=== PATIENT | female | born 1990 | race Caucasian/White ===

== ENCOUNTER 2022-04-09 07:13 | Outpatient (CLI) | payer OTHER, SELFPAY ==
--- NOTE | 2022-04-09 07:15 | CRLHL7_ITS ---
For Patients: As a result of the Century Cures Act, medical imaging exams and procedure reports are released immediately into your electronic medical record. You may view this report before your referring provider. If you have questions, please contact your health care provider. INDICATION: Follow-up growth. Obesity affecting . TECHNIQUE: Ultrasound OB pelvis transabdominal. Real-time rayo-scale imaging of the fetus was performed. COMPARISON: Ultrasound 11/19/2021. FINDINGS: Sonographic imaging demonstrates a single living intrauterine gestation. Fetus demonstrates a regular cardiac rate of 150 beats per minute. Fetus has a cephalic orientation. Amniotic fluid volume appears normal. Single deepest pocket measures 8.4 cm. Amniotic fluid index is 20.5 cm. Placenta is anterior. The following biometric measurements were obtained: Biparietal diameter: 7.2 cm, 28 week 6 day, 42nd percentile. Head circumference: 27.3 cm, 29 week 5 day, 49th percentile. Abdominal circumference: 25.1 cm, 29 week 2 day, 60th percentile. Femur length: 5.7 cm, 29 week 6 day, 67th percentile. FL/AC ratio 22.68%. HC/AC ratio 1.09 The composite ultrasound gestational age is calculated at 29 weeks 3 days with an estimated sonographic due date of 06/22/2022. The weight is estimated at 1397 grams, the 66th percentile. IMPRESSION.: 1. Viable intrauterine . No abnormalities seen. 2. Upper limits of normal amniotic fluid volume. Single deepest pocket is slightly elevated measuring 8.4 cm. Amniotic fluid index is normal measuring 20.5 cm. Dictated by Calixto Elder MD @ 04/09/2022 8:32:58 AM (Electronically Signed)
--- OUTSIDE RECORDS SUMMARY | 2022-04-09 07:15 | XMS_ITS | Clinical Summary ---
:1990 Author Organization [email or web address] [employer] [facility] [place] [address] Care Team Providers Name Role Phone Evelyn Arnett NP Primary Care Provider [phone] Allergies Active Allergy Reactions Severity Noted Date Comments Doxycycline Nausea And Vomiting, Dizziness 06/12/2008 Medications Medication Sig Dispensed Refills Start Date End Date Status SUMAtriptan (IMITREX) TAKE 1 TABLET BY 10 Tablet 3 10/16/2021 Active 50 mg MOUTH EVERY 2 tabletIndications: HOURS NEEDED Menstrual migraine FOR MIGRAINE. without status TAKE AT MINIMUM migrainosus, not 2 HOURS APART. intractable MAX 200 MG PER 24 HOURS. ondansetron (ZOFRAN 0 11/25/2021 Active ODT) 4 mg disintegrating tablet busPIRone (BUSPAR) 30 Take 1 Tablet 180 Tablet 3 01/02/2022 Active mg tabletIndications: (30 mg) by mouth Generalized anxiety 2 times daily. disorder escitalopram oxalate Take 1 Tablet 90 Tablet 3 01/02/2022 Active (LEXAPRO) 20 mg (20 mg) by mouth tabletIndications: at bedtime. Generalized anxiety disorder, Depression, recurrent (HC) Active Problems Problem Noted Date Acne 12/06/2013 Seasonal allergies 04/04/2013 Migraine 01/05/2013 Estimated Date of Delivery Comments Yes 06/27/2022 Resolved Problems Problem Noted Date Resolved Date Bipolar affective disorder 12/02/2013 12/27/2020 Immunizations Name Administration Dates Next Due COVID-19 vaccine (Voxel 07/26/2021, 12/08/2020, 30mcg/0.3mL) PF, MDV Td (Age >=7 Years) 10/08/2008, 01/30/1998 Tdap 07/09/2020, 04/10/2016 Family History Medical History Relation Name Comments Hypertension Father Cancer-breast Maternal Grandmother Parkinsonism Maternal Grandmother Thyroid Disease Mother Cancer-breast Paternal Grandmother Parkinsonism Paternal Grandmother Anesthesia Problem No Family History Blood Disease No Family History Relation Name Status Comments Father Alive Maternal Grandfather Alive Maternal Grandmother Mother Alive Paternal Grandfather Alive Paternal Grandmother Alive Social History Tobacco Use Types Packs/Day Years Used Date Former Smoker Cigarettes 0.5 13 Quit: 06/2019 Smokeless Tobacco: Never Used Tobacco Cessation: Ready to Quit: No; Co unseling Given: Yes Alcohol Use Standard Drinks/Week Comments No 0 (1 standard drink = 0.6 oz pure alcoho l) Estimated Date of Delivery Comments Yes 06/27/2022 Sex Assigned at Date Recorded Not on file Obstetrics History Para Term AB IAB SAB Ectopic Multiple Living Live Births 2 1 1 1 1 Date Outcome GA Total Labor/2nd/3rd Weight Sex Delivery Anes PTL Arielle A 1 A5 Name Clin Labor 09/28 Term 40w 3.6 kg F CS-LTranv Epidu N Joana 5 8 E vely 1d (7 lb ral, ng n Mar ie 15 oz) Spina Ti lle l luis e DO Complications: None Delivery Location: [facility] Current Last Filed Vital Signs Vital Sign Reading Time Taken Comments Blood Pressure 120/76 01/02/2022 1:19 PM CDT Pulse 72 01/02/2022 1:19 PM CDT Temperature 37 ??C (98.6 ??F) 09/16/2021 3:22 PM ARTISTIC DIRECTOR Respiratory Rate 15 01/02/2022 1:19 PM CDT Oxygen Saturation 97% 09/16/2021 3:22 PM ARTISTIC DIRECTOR Inhaled Oxygen Concentration - - Weight 103.4 kg (228 lb) 01/02/2022 1:19 PM CDT Height 160 cm (5' 3) 01/02/2022 1:19 PM CDT Body Mass Index 40.39 01/02/2022 1:19 PM CDT Plan of Treatment Health Maintenance Due Date Last Done Comments Hepatitis C screening for age 0601/15/2006 18-79 Influenza for age 9-49 04/10/2022 BMI (ht and wt on same day) for 01/02/2023 01/02/2022, 06/11, age 18+ 06/07/2021, Additional history exists Depression screening for age 12+ 01/02/2023 01/02/2022, , 07/05/2021, Additional history exists Pap test for age 21-65 12/25/2024 12/25/2021, 12/25/2021, 11/07/2020 (Completed outside of [facility]), Additional history exists Tetanus booster 07/09/2030 07/09/2020, 04/10/2016, 10/08/2008, Additional history exists Tdap Completed 07/09/2020, 04/10/2016 COVID-19 vaccine series Completed 07/26/2021, 12/08/2020, 11/10/2020 Results Not on filefrom Last 3 Months Additional Health Concerns Infection Onset Date Last Indicated Rule-Out C.diff 12/12/2020 12/12/2020 Insurance Payer Benefit Plan / Subscriber ID Effective Dates Phone Addre ss Type Group [facility] [id number] 2020-[address] [id number] [place] [address] Advance Directives Latest Code Status on File Code Status Date Activated Date Inactivated Comments Full Code 12/26/2011 7:11 AM 12/26/2011 2:47 PM Care Teams Ocular Care Technician Relationship Specialty Start Date End Date Evelyn Arnett NP PCP - General Nurse Practitioner 12/27/20 [id number] [place] [address]
--- OUTSIDE RECORDS SUMMARY | 2022-04-09 07:15 | XMS_ITS | Clinical Summary ---
:1990 Author Organization [facility] Address [address] [place] [address] Care Team Providers Name Role Phone Blank Lemos MD Primary Care Provider Blank Lemos MD Unavailable Anabell Shannon Unavailable Unavailable Sharita Frias MD Unavailable Allergies Active Allergy Reactions Severity Noted Date Comments Doxycycline Other (See Comments), Nausea and Vomiting 06/12/2008 Medications Medication Sig Dispensed Refills Start Date End Date Status Vit-Fe Take 1 tablet by 0 Active Fumarate-FA ( mouth daily MULTIVITAMIN W/IRON) 27-0.8 MG tablet escitalopram (LEXAPRO) Take 1 tablet 90 tablet 1 08/27/2020 Active 20 MG tabletIndications: (20 mg) by mouth Generalized anxiety daily disorder, Bipolar I disorder (H) norethindrone (MICRONOR) Take 1 tablet 84 tablet 4 11/06/2020 Active 0.35 MG (0.35 mg) by tabletIndications: mouth daily Routine follow-up Active Problems Problem Noted Date Morbid obesity 10/18/2020 Indication for care in labor or delivery 09/28/2020 Uterine size-date discrepancy in third trimester 09/24 Overview: Growth ultrasound 52nd percentile at 36w Excessive weight gain affecting 09/24/2020 Overview: 35 lbs at 37 weeks High-risk , third trimester 08/07/2020 Overview: Clinic/Hospital: [facility] Partner Name: Micah Ultrasound predicts sex: female Childrens names/ages: n/a Previous labor experiences: n/a Waterbirth (interest, declined, ineligib le): n/a Level of education/occupation: currently unemployed d/t COVID Pertinent History: Bipolar, obesity clas s II PP contraception: minipill Hx PPD/Depression/Anxiety: Bipolar with anxiety & depression Peds provider: Probably [facility] Plans for labor pain management: Open to options, no firm plan Plans for post recovery/time off: currently not working, will plan to look for work in about 3 months. Micah will get 5 weeks. Mom and sister in town. 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 Plan colp 10/07/18 [place]- No lesions seen, no Bx raisa en. Plan 1 yr co-test 02/24/20 ASCUS pap, + HR HPV (not 16 or 1 8). Pt about 10 weeks . Plan colp without biopsies due by 05/26/20. 03/05/20 CCT tracking. 03/06/20 pt notified 04/09/20 colp visually MIL I-II. Plan: pa p . EDC 09/27/20 11/06/20 NIL, +HR HPV, not 16/18. Plan Co lp bef 02/06/21 11/13/20 Left msg and MyChart result lette r- read by pt 01/08/21 Reminder MyChart 02/05/21 [place] not done. Tracking updated for 6 mo colp/pap due 05/09/21. 04/25/21 Reminder MyChart- read by pt 05/27/21 Lost to follow-up for pap track ing Migraine without aura and without status migrainosus, not intractable 06/16/2016 BMI 38.0-38.9,adult 04/10/2016 Insomnia 02/20/2015 Generalized anxiety disorder 11/28/2014 Acne 12/06/2013 Bipolar affective disorder 12/02/2013 Seasonal allergies 04/04/2013 Estimated Date of Delivery Comments Yes 06/27/2022 Based on last menstr ual period of 09/20/2021 Resolved Problems Problem Noted Date Resolved Date Tobacco abuse 09/22/2018 08/07/2020 Encounters Date Type Specialty Care Team Description 03/05/2022 Office Visit Maternal and Aimee Aguilar abnormal ity Medicine MD Sean affecting management of mother, antepar mack, single or unspecified fet us (Primary Dx) 03/05/2022 Hospital Encounter Radiology. Aimee Aguilar ab normality MD Sean affecting management of mother, antepar mack, single or unspecified fet us 03/05/2022 Travel 02/05/2022 Office Visit Maternal and Luis abnormali ty Medicine Carmencita Carrington APRN affecting DOOR PERSON management of Aimee Aguilar mother, antepa rtum, MD Sean single or unspecified fet us (Primary Dx) 02/05/2022 Hospital Encounter Radiology. Luis, related Carmencita Carrington APRN condition, DOOR PERSON antepartum Aimee Aguialr MD 02/05/2022 Travel 01/29/2022 PRE VISIT Maternal and [place], Ultrasound (L2- BMI Medicine [place], RN 40) 01/26/2022 Transcribe Orders Maternal and Luis related Medicine Carmencita Carrington APRN condition , DOOR PERSON antepartum (Kimberli chema Dx) 01/24/2022 Medical Correspondence Scan, MATER NAL Non-Provider [facility] PROVIDER SERVIC E REQUEST- OUTPAT [facility] from Last 3 Months Immunizations Name Administration Dates Next Due TD (ADULT, 7+) 10/08/2008, 01/30/1998 TDAP Vaccine (Adacel) 04/10/2016 Tdap (Adacel,Boostrix) 07/09/2020 Family History Medical History Relation Comments Breast Cancer Maternal Grandfather Breast Cancer Maternal Grandmother Thyroid Disease Mother Diabetes No family hx of Relation Status Comments Brother Alive Father Alive Maternal Grandfather Maternal Grandmother Mother Alive Social History Tobacco Use Types Packs/Day Years Used Date Former Smoker Cigarettes 0.25 8 Quit: 06/24/20 19 Smokeless Tobacco: Never Used Tobacco Cessation: Counseling Given: No Alcohol Use Standard Drinks/Week Comments No 0 (1 standard drink = 0.6 oz pure alcoho l) Financial Resource Strain Answer Date Recorded How hard is it for you to pay for the very basics like Not h janett at all 02/07/2020 food, housing, medical care, and heating? Food Insecurity Answer Date Recorded Within the past 12 months, you worried that your food would Never true 02/07/2020 run out before you got money to buy more. Within the past 12 months, the food you bought just didn't N ever true 02/07/2020 last and you didn't have money to get more. Transportation Needs Answer Date Recorded In the past 12 months, has lack of transportation kept you f rom No 02/07/2020 medical appointments or from getting medications? In the past 12 months, has lack of transportation kept you f rom No 02/07/2020 meetings, work, or getting things needed for daily living? Education Answer Date Recorded What is the highest level of school you have High school gra dee 02/07/2020 completed or the highest degree you have received? Estimated Date of Delivery Comments Yes 06/27/2022 Based on last menstr ual period of 09/20/2021 Sex Assigned at Date Recorded Not on file Last Filed Vital Signs Vital Sign Reading Time Taken Comments Blood Pressure 100/60 11/06/2020 2:30 PM CDT Pulse 76 09/30/2020 9:40 AM [employer] Temperature 36.8 ??C (98.3 ??F) 10/18/2020 2:16 PM [employer] Respiratory Rate 18 09/30/2020 9:40 AM [employer] Oxygen Saturation 98% 09/29/2020 9:00 AM [employer] Inhaled Oxygen Concentration - - Weight 104.8 kg (231 lb) 11/06/2020 2:30 PM CDT Height 160 cm (5' 3) 11/06/2020 2:30 PM CDT Body Mass Index 40.92 11/06/2020 2:30 PM CDT Plan of Treatment Health Maintenance Due Date Last Done Comments ADVANCE CARE PLANNING 1990 HEPATITIS C SCREENING 01/15/2006 ANNUAL REVIEW OF HM ORDERS 01/04/2021 01/05/2020 COLPOSCOPY 02/06/2021 04/09/2020 GABRIEL ASSESSMENT 08/27/2021 08/27/2020, 02/02/2020, 12/08/2019, Additional history exists PREVENTIVE CARE VISIT 11/06/2021 11/06/2020, 09/22/2018, 04/10/2016, Additional history exists MATERNAL SCREENING 01/03/2022 OBGCT (OB) 03/07/2022 07/09/2020 REPEAT ANTIBODY SCREEN (OB) 04/04/2022 09/28/2020, 02/20/20 20 INFLUENZA VACCINE (#1) 2022 09/22/2018 (Declined) GROUP B STREP SCREENING 05/30/2022 09/03/2020 HPV TEST 12/25/2022 11/06/2020, 02/24/2020, 09/22/2018 PAP 12/25/2022 12/25/2021, 11/06/2020, 04/09/2020, Additional history exists DTAP/TDAP/TD IMMUNIZATION 07/09/2030 07/09/2020, 04/10/2016 , (5 - Td or Tdap) 10/08/2008, Additional history exists MIGRAINE ACTION PLAN Completed 09/22/2018 HIV SCREENING Completed 02/20/2020, 09/22/2018 (Declined) COVID-19 Vaccine Completed 07/26/2021, 12/08/2020, 11/10/2020 HEPATITIS B IMMUNIZATION Aged Out No long er eligible based on patient 's age to complete this topic IPV IMMUNIZATION Aged Out No longer eligi ble based on patient 's age to complete this topic MENINGITIS IMMUNIZATION Aged Out No longe r eligible based on patient 's age to complete this topic Pneumococcal Vaccine: Aged Out No longer eligible Pediatrics (0 to 5 Years) based on patient's age and At-Risk Patients (6 to to co mplete this topic 64 Years) Procedures Procedure Name Priority Date/Time Associated Comments Diagnosis MF US COMPREHENSIVE Routine 03/05/2022 9:49 AM abnormal ity Results for this SINGLE F/U CDT affecting procedure are i n management of the results mother, antepartum, section. single or unspecified fetus [facility] US COMPREHENSIVE Routine 02/05/2022 11:12 relate d Results for this SINGLE AM CDT condition, procedure are i n antepartum the results section. from Last 3 Months Results [facility] US Comprehensive Single F/U (03/05/2022 9:49 AM CDT) Anatomical Region Laterality Modality Ultrasound Specimen (Source) Anatomical Collection Method Collection Time Re ceived Time Location / / Volume Laterality 03/05/2022 9:05 AM CDT Impressions 03/05/2022 10:06 AM CDT IMPRESSION 1. Mendoza intrauterine at 2 3 weeks 5 days gestational age here for completion of anatomy. 2. The remaining anatomic survey w as completed, no anomalies commonly detected by ultrasound were identified within the limits of ultrasound. 3. Growth parameters and estimated weight were consistent with established dates. 4. The amniotic fluid volume appeared no rmal. Narrative 03/05/2022 10:06 AM CDT Comp Follow Up Pat. Name: RENA BYRD Study Date: 03/05/2022 9:05am Pat. NO: [id number] Referring ??: COCO ORTIZ Site: [facility] Manager Urgent Care: Hood Mcwilliams RDMS : 1990 Age: 32 INDICATION BMI 40 METHOD Transabdominal ultrasound examination. V iew: Sufficient Mendoza . Number of fetuses: 1 DATING ? Date ?Details ?Gest. age ?FATUMA LMP ?09/20/2021 ? 23 w + 5 d ? 06/27/2022 Prior assessment ? 4/ 07/2022 ? GA: 8 w + 3 d ?23 w + 4 d ? 06/28/2022 U/S ? 03/05/2022 ? based upon AC, BPD, Femur, HC ? 23 w + 4 d ? 06/28/2022 Assigned dating ?Dating performed on 02/05/2022, based on the LMP ?23 w + 5 d ? 06/27/2022 GENERAL EVALUATION Cardiac activity present. FHR 122 bpm. movements present. Presentation funmi breech. Placenta Anterior, No Previa, > 2 cm fro m internal os. Umbilical cord 3 vessel cord. Amniotic fluid Amount of AF: normal. MVP 5.8 cm. BIOMETRY Main Biometry: BPD ?56.7 ?mm ? 23w 2d ?Hadlock OFD ?80.2 ?mm ? 24w 2d ?Nicolaides HC ?220.6 ?mm ?24w 1d ?Hadlock Cerebellum tr ?27.1 ? mm ?24w 4d ?Nicolaides AC ?183.2 ?mm ?23w 1d ?24% ?Hadlock Femur ?42.2 ? mm ?23w 5d ?Hadlock Weight Calculation: EFW ? 598 ? g ? 31% ?Hadlock EFW (lb,oz) ? 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 4.9 ? mm CM ?4.8 ? mm Nasal bone ? 8.8 ? mm ANATOMY The following structures appear normal: Head / Neck ? Cranium. Head size. Head shape. Lateral ventricles. Midline falx. Cavum septi pellucidi. Cerebellum. Cisterna magna. Thalami. Face ? Lips. Profile. Nose. Maxilla. Mandible. Heart / Thorax ?4-chamber view. LVOT view. Abdomen ? Stomach. Kidneys. Bladder. Spine ?Cervical spine. Thoracic spine. Lumbar spine. The following structures were documented previously: Heart / Thorax ?RVOT view. 4-dsctrd-yqagato view. ? Diaphragm. Spine ?Sacral spine. Gender: female. MATERNAL STRUCTURES Cervix ?Suboptimal Right Ovary ?Not examined Left Ovary ?Not examined RECOMMENDATION Thank-you for referring your patient for an ultrasound to reassess anatomy that was previously suboptimally seen on comprehensive survey. I discussed the findings on today's ultr asound with the patient. I reviewed the limitations of ultrasound. Further ultrasound studies are anticipat ed to be done in [place]. We recommend serial growth every 4-6 weeks and weekly BPPs should be considered at 34 weeks for pre- BMI 40 Return to primary provider for continued care. If you have questions regarding today's evaluation or if we can be of further service, please contact the [facility]. Procedure Note Aimee Aguilar MD - 03/05/2022Form atting of this note might be different from the original. Comp Follow Up Pat. Name:Noemi BYRD Date: 9:05am Pat. NO: [id number] MD:CARMENCITA ORTIZ [facility] Fleming :1990Age:32 INDICATION BMI 40 METHOD Transabdominal ultrasound examination. V iew: Sufficient Mendoza . Number of fetuses: 1 DATING Date Details Gest. age FATUMA LMP 09/20/2021 23 w + 5 d 06/27/2022 Prior assessment 11/19/2021 GA: 8 w + 3 d 23 w + 4 d 06/28/2022 U/S 03/05/2022 based upon AC, BPD, Femur, HC 23 w + 4 d 06/28/2022 Assigned dating Dating performed on 01/09, based on the LMP 23 w + 5 d 06/27/2022 GENERAL EVALUATION Cardiac activity present. FHR 122 bpm. movements present. Presentation funmi breech. Placenta Anterior, No Previa, > 2 cm fro m internal os. Umbilical cord 3 vessel cord. Amniotic fluid Amount of AF: normal. MVP 5.8 cm. BIOMETRY Main Biometry: BPD 56.7 mm 23w 2d Hadlock OFD 80.2 mm 24w 2d Nicolaides HC 220.6 mm 24w 1d Hadlock Cerebellum tr 27.1 mm 24w 4d Nicolaides AC 183.2 mm 23w 1d 24% Hadlock Femur 42.2 mm 23w 5d Hadlock Weight Calculation: EFW 598 g 31% Hadlock EFW (lb,oz) 1 lb 5 oz EFW by Hadlock ([id number]) Head / Face / Neck Biometry: Career And Technology Education Teacher 4.9 mm CM 4.8 mm Nasal bone 8.8 mm ANATOMY The following structures appear normal: Head / Neck Cranium. Head size. Head sha pe. Lateral ventricles. Midline falx. Cavum septi pellucidi. Cerebellum. Cisterna magna. Thalami. Face Lips. Profile. Nose. Maxilla. Chloe ble. Heart / Thorax 4-chamber view. LVOT view . Abdomen Stomach. Kidneys. Bladder. Spine Cervical spine. Thoracic spine. Julienne mbar spine. The following structures were documented previously: Heart / Thorax RVOT view. 4-cazggu-jhqef ea view. Diaphragm. Spine Sacral spine. Gender: female. MATERNAL STRUCTURES Cervix Suboptimal Right Ovary Not examined Left Ovary Not examined RECOMMENDATION Thank-you for referring your patient for an ultrasound to reassess anatomy that was previously suboptimally seen on comprehensive survey. I discussed the findings on today's ultr asound with the patient. I reviewed the limitations of ultrasound. Further ultrasound studies are anticipat ed to be done in [place]. We recommend serial growth every 4-6 weeks and weekly BPPs should be considered at 34 weeks for pre- BMI 40 Return to primary provider for continued care. If you have questions regarding today's evaluation or if we can be of further service, please contact the [facility]. IMPRESSION 1. Mendoza intrauterine at 2 3 weeks 5 days gestational age here for completion of anatomy. 2. The remaining anatomic survey w as completed, no anomalies commonly detected by ultrasound were identified within the limits of ultrasound. 3. Growth parameters and estimated weight were consistent with established dates. 4. The amniotic fluid volume appeared no rmal. Aimee Aguilar MD [facility] US ORDERABLES [facility] Comprehensive Single (02/05/2022 11:12 AM CDT) Anatomical Region Laterality Modality Ultrasound Specimen (Source) Anatomical Collection Method Collection Time Re ceived Time Location / / Volume Laterality 02/05/2022 10:22 AM CDT Impressions 02/05/2022 1:01 PM CDT IMPRESSION 1. Mendoza intrauterine at 1 9 weeks 5 days gestational age here for evaluation of anatomy. 2. No anomalies commonly detected by ultrasound or soft markers of aneuploidy were identified in the detailed anatomic survey within the limits of ultrasound, however some views were subo ptimal, as described above. 3. Growth parameters and estimated weight were consistent with established dates. 4. The amniotic fluid volume appeared no rmal. 5. On transabdominal imaging the cervix appears long and closed. Narrative 02/05/2022 1:01 PM CDT Comprehensive Pat. Name: RENA BYRD Study Date: 02/05/2022 10:22am Pat. NO: [id number] Referring ??MD: COCO ORTIZ Site: [facility] Ur[facility] Care: Dion mora RDMS : 1990 Age: 32 INDICATION BMI 40 METHOD Transabdominal ultrasound examination. V iew: Suboptimal view: limited by maternal body habitus Mendoza . Number of fetuses: 1 DATING ? Date ?Details ?Gest. age ?FATUMA LMP ?09/20/2021 ? 19 w + 5 d ? 06/27/2022 Prior assessment ? 4/ 07/2022 ? GA: 8 w + 3 d ?19 w + 4 d ? 06/28/2022 U/S ? 02/05/2022 ? based upon AC, BPD, Femur, HC ? 19 w + 6 d ? 06/26/2022 Assigned dating ?Dating performed on 02/05/2022, based on the LMP ?19 w + 5 d ? 06/27/2022 GENERAL EVALUATION Cardiac activity present. FHR 149 bpm. movements present. Presentation Variable. Placenta Anterior, No Previa, > 2 cm fro m internal os. Umbilical cord 3 vessel cord. Amniotic fluid Amount of AF: normal. MVP 5.3 cm. BIOMETRY Main Biometry: BPD ?45.5 ?mm ? 19w 5d ?Butch ALLEN ?61.4 ?mm ? 19w 6d ?Nicolaides HC ?171.8 ?mm ?19w 5d ?Hadlock Cerebellum tr ?20.9 ? mm ?19w 6d ?Nicolaides AC ?145.4 ?mm ?19w 6d ?49% ?Hadlock Femur ?32.4 ? mm ?20w 1d ?Hadlock Humerus ?31.0 ?mm ? 20w 2d ?Wendy Weight Calculation: EFW ? 322 ? g ? 58% ?Hadlock EFW (lb,oz) ? 0 lb 11 ? oz EFW by ?Hadlock ([id number]) Head / Face / Neck Biometry: Career And Technology Education Teacher ? 5.4 ? mm CM ?3.2 ? mm Nuchal fold ? 4.6 ? mm ANATOMY The following structures appear normal: Head / Neck ? Cranium. Head size. Head shape. Lateral ventricles. Choroid plexus. Midline falx. Cavum septi pellucidi. Cerebellum. Cisterna magna. ? Parenchyma. Thalami. Vermis. ? Neck. Nuchal fold. Face ? Orbits. Lens. Heart / Thorax ?RVOT view. Situs. Bicaval view. Ductal arch view. Superior vena cava. Inferior vena cava. 3-vessel view. 0-lhlxdz-jkoiktk view. Cardiac position. ? Cardiac size. Cardiac rhythm. ? Right lung. Left lung. Diaphragm. Abdomen ? Abdominal wall. Cord insertion. Stomach. Kidneys. Bladder. Liver. Bowel. Genitals. Spine ?Cervical spine. Thoracic spine. Lumbar spine. Sacral spine. Extremities / Skeleton ?Rig ht arm. Right hand. Left arm. Left hand. Right leg. Right foot. Left leg. Left foot. The following structures could not be ad equately visualized: Face ? Lips. Profile. Nose. Maxilla. Mandible. Heart / Thorax ?4-chamber view: suboptimal apical view. LVOT view. Aortic arch view. MATERNAL STRUCTURES Cervix ?Visualized ? Appearance: Appears Closed ? Cervical length 39.9 mm Right Ovary ?Not visualized Left Ovary ?Not visualized RECOMMENDATION Thank-you for referring your patient for a comprehensive ultrasound. She is referred from [place] for BMI > 40. I discussed the findings on today's ultr asound with the patient. I reviewed the limitations of ultrasound both in detecting aneuploidy and structural abnormalities. Ultrasound, when views completed, can routinely dete ct 80-90% of structural abnormalities. She had low risk cell free DNA for genetic screening this . Follow-up is scheduled here in [facility] to reassess anatomy that was suboptimally seen today. Additional surveillance is recommended in the (growth US every 4-6 weeks, weekly BPP at 34 weeks) and I assume that this will be done in [place]. Return to primary provider for continued care. If you have questions regarding today's evaluation or if we can be of further service, please contact the [facility]. Procedure Note Aimee Aguilar MD - 02/05/2022Form atting of this note might be different from the original. Comprehensive Pat. Name:Noemi BYRD Date: 10:22am Pat. NO: [id number] MD:CARMENCITA ORTIZ [facility]Dion Cruz RDMS :1990Age:32 INDICATION BMI 40 METHOD Transabdominal ultrasound examination. V iew: Suboptimal view: limited by maternal body habitus Mendoza . Number of fetuses: 1 DATING Date Details Gest. age FATUMA LMP 09/20/2021 19 w + 5 d 06/27/2022 Prior assessment 11/19/2021 GA: 8 w + 3 d 19 w + 4 d 06/28/2022 U/S 02/05/2022 based upon AC, BPD, Femur, HC 19 w + 6 d 06/26/2022 Assigned dating Dating performed on 01/09, based on the LMP 19 w + 5 d 06/27/2022 GENERAL EVALUATION Cardiac activity present. FHR 149 bpm. movements present. Presentation Variable. Placenta Anterior, No Previa, > 2 cm fro m internal os. Umbilical cord 3 vessel cord. Amniotic fluid Amount of AF: normal. MVP 5.3 cm. BIOMETRY Main Biometry: BPD 45.5 mm 19w 5d Hadlock OFD 61.4 mm 19w 6d Nicolaides HC 171.8 mm 19w 5d Hadlock Cerebellum tr 20.9 mm 19w 6d Nicolaides AC 145.4 mm 19w 6d 49% Hadlock Femur 32.4 mm 20w 1d Hadlock Humerus 31.0 mm 20w 2d Wendy Weight Calculation: EFW 322 g 58% Hadlock EFW (lb,oz) 0 lb 11 oz EFW by Hadlock ([id number]) Head / Face / Neck Biometry: Career And Technology Education Teacher 5.4 mm CM 3.2 mm Nuchal fold 4.6 mm ANATOMY The following structures appear normal: Head / Neck Cranium. Head size. Head sha pe. Lateral ventricles. Choroid plexus. Midline falx. Cavum septi pellucidi. Cerebellum. Cisterna magna. Parenchyma. Thalami. Vermis. Neck. Nuchal fold. Face Orbits. Lens. Heart / Thorax RVOT view. Situs. Bicaval view. Ductal arch view. Superior vena cava. Inferior vena cava. 3-vessel view. 2-zduvdp-txijhcc view. Cardiac position. Cardiac size. Cardiac rhythm. Right lung. Left lung. Diaphragm. Abdomen Abdominal wall. Cord insertion. Stomach. Kidneys. Bladder. Liver. Bowel. Genitals. Spine Cervical spine. Thoracic spine. Julienne mbar spine. Sacral spine. Extremities / Skeleton Right arm. Right hand. Left arm. Left hand. Right leg. Right foot. Left leg. Left foot. The following structures could not be ad equately visualized: Face Lips. Profile. Nose. Maxilla. Chloe ble. Heart / Thorax 4-chamber view: suboptima l apical view. LVOT view. Aortic arch view. MATERNAL STRUCTURES Cervix Visualized Appearance: Appears Closed Cervical length 39.9 mm Right Ovary Not visualized Left Ovary Not visualized RECOMMENDATION Thank-you for referring your patient for a comprehensive ultrasound. She is referred from [place] for BMI > 40. I discussed the findings on today's ultr asound with the patient. I reviewed the limitations of ultrasound both in detecting aneuploidy and structural abnormalities. Ultrasound, when views completed, can routinely dete ct 80-90% of structural abnormalities. She had low risk cell free DNA for genetic screening this . Follow-up is scheduled here in [facility] to reassess anatomy that was suboptimally seen today. Additional surveillance is recommended in the (growth US every 4-6 weeks, weekly BPP at 34 weeks) and I assume that this will be done in [place]. Return to primary provider for continued care. If you have questions regarding today's evaluation or if we can be of further service, please contact the [facility]. IMPRESSION 1. Mendoza intrauterine at 1 9 weeks 5 days gestational age here for evaluation of anatomy. 2. No anomalies commonly detected by ultrasound or soft markers of aneuploidy were identified in the detailed anatomic survey within the limits of ultrasound, however some views were subo ptimal, as described above. 3. Growth parameters and estimated weight were consistent with established dates. 4. The amniotic fluid volume appeared no rmal. 5. On transabdominal imaging the cervix appears long and closed. 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 IMG MFM US ORDERABLES from Last 3 Months Insurance Payer Benefit Plan / Subscriber ID Effective Phone Address T ype Group Dates WORK COMP ELYSSA WINSTON [id number] 2015-Pre [phone] ADMIN[employer]ATORS sent [phone] [place] [address] [facility] [id number] 2021-Pres [phone] [address] [employer] ent [phone] [place] [address] Rena Byrd Worker's Self 1990 [phone] Compensation 4 (Home) [address] [place] [id number] Rena Byrd Behavioral Self 1990 [phone] [id number] EM YSABEL M [address] ([address] [place] [address] Advance Directives For more information, please contact: [phone] Latest Code Status on File Code Status Date Activated Date Inactivated Comments Full Code 09/29/2020 9:48 AM 09/30/2020 5:08 PM All basic an d advanced life-sustaining interventions are performed as jc ropriate Code status determined by: Discussion with patient/ legal de cision maker Full Code 09/28/2020 7:18 PM 09/28/2020 11:17 PM All basic a nd advanced life-sustaining interventions ar e performed as appropriate Code status determined by: Discussion with patient/ legal de cision maker Care Teams Management Consulting Relationship Specialty Start Date End Date Blank Lemos, PCP - General Internal Medicine 04/22/18 MD Zarate [facility] [place] [address] Blank Lemos, Assigned PCP 04/25/18 MD Zarate [facility] [place] [address] Anabell Shannon Personal Advocate & 10/25/20 Liaison (PAL) Sharita Frias, Assigned OBGYN Provider 01/25/22 [address] [place], [place] [phone]
--- OUTSIDE RECORDS SUMMARY | 2022-04-09 07:16 | XMS_ITS | Encounter Summary ---
:1990 Author Organization [place] Address [address] [place] [address] Care Team Providers Name Role Phone Blank Lemos MD Primary Care Provider Blank Lemos MD Unavailable Kathleen Lacy CNM Unavailable Anabell Shannon Unavailable Unavailable Encounter Details Date Type Department Care Team Description 11/06/2020 Travel Social History Tobacco Use Types Packs/Day Years Used Date Former Smoker Cigarettes 0.25 8 Quit: 06/24/20 19 Smokeless Tobacco: Never Used Alcohol Use Standard Drinks/Week Comments No 0 [...] of school you have High school gra duate 02/07/2020 completed or the highest degree you have received? Sex Assigned at Date Recorded Not on file COVID-19 Exposure Response Date Recorded In the last month, have you been in contact with No / Unsure 11/06/2020 2:22 PM CDT someone who was confirmed or suspected to have Coronavirus / COVID-19? documented as of this encounter Plan of Treatment Not on filedocumented as of this encounter Visit Diagnoses Not on filedocumented in this encounter Additional Health Concerns Assessment Noted Time PHQ-9 Depression Total Score: 2 11/06/2020 3:02 PM CDT documented as of this encounter Care Teams Counter Supply Worker Relationship Specialty Start Date End Date Blank Lemos, PCP - General Internal Medicine 04/22/[address] [place] [address] K[place] [phone] Blank Lemos, Assigned PCP 04/25/[facility] K[place] [phone] Kathleen Lacy CNM Assigned OBGYN Provider 06/01/20 11/23/21 Cipriano Rivera [place], [place] [phone] Anabell Shannon Personal Advocate & 10/25/20 Liaison (PAL) documented as of this encounter
--- OUTSIDE RECORDS SUMMARY | 2022-04-09 07:16 | XMS_ITS | Encounter Summary ---
:1990 Author Organization [place] Address [address] [facility] [place] [address] Care Team Providers Name Role Phone Blank Lemos MD Primary Care Provider Blank Lemos MD Unavailable Kathleen LacyM Unavailable Anabell Shannon Unavailable Unavailable Encounter Details Date Type Department Care Team Description 11/27/2020 Medical Correspondence [facility] Scan, [facility] Non-Provider POST- Srvcs DEPRESSION SCALE [address] [place] [address] [place] [address] WELL-CHILD VISITS [phone] Social History Tobacco Use Types Packs/Day Years [...] level of school you have High school yi price 02/07/2020 completed or the highest degree you [...] documented as of this encounter Care Teams Rotary Screen Printing Machine Operator Relationship Specialty Start Date End Date Blank Lemos, PCP - General Internal Medicine 04/22/[address] [place] [address] [place] [address] Blank Lemos, Assigned PCP 04/25/18 [facility] [place] [address] Kathleen Lacy CNM Assigned OBGYN Provider 06/01/20 11/23/21 [place] [address] Anabell Shannon Personal Advocate & 10/25/20 Liaison (PAL) documented as of this encounter
--- OUTSIDE RECORDS SUMMARY | 2022-04-09 07:16 | XMS_ITS | Encounter Summary ---
:1990 Author Organization [place] Address [address] [place] [address] Care Team Providers Name Role Phone Blank Lemos MD Primary Care Provider Blank Lemos MD Unavailable Kathleen Lacy CNM Unavailable Anabell Shannon Unavailable Unavailable Encounter Details Date Type Department Care Team Description 11/05/2020 Travel Social History Tobacco Use Types Packs/Day [...] been in contact with No / Unsure 11/05/2020 2:08 PM CDT someone who was confirmed or suspected to have Coronavirus / COVID-19? documented as of this encounter Plan of Treatment Not on filedocumented as of this encounter Visit Diagnoses Not on filedocumented in this encounter Additional Health Concerns Assessment Noted Time PHQ-9 Depression Total Score: 3 11/05/2020 2:18 PM CDT documented as of this encounter Care Teams Machinist Instructor Relationship Specialty Start Date End Date Blank Lemos, PCP - General Internal Medicine 04/22/[address] [place] [address] K[place] [phone] Blank Lemos, Assigned PCP 04/25/[address] [facility] [place] [phone] Kathleen Lacy CNM Assigned OBGYN Provider 06/01/20 11/23/21 Cipriano Rivera [place], [place] [address] Anabell Shannon Personal Advocate & 10/25/20 Liaison (PAL) documented as of this encounter
--- OUTSIDE RECORDS SUMMARY | 2022-04-09 07:16 | XMS_ITS | Encounter Summary ---
:1990 Author Organization [place] Address [address] [facility] [place] [address] Care Team Providers Name Role Phone Blank Lemos MD Primary Care Provider Blank Lemos MD Unavailable Anabell Shannon Unavailable Unavailable Kathleen Lacy CNM Unavailable Sharita Frias MD Unavailable Encounter Details Date Type Department Care Team Description 01/24/2022 Medical Correspondence [facility] Scan, MATERNAL Health Info Mgmt Non-Provider MEDICINE CE ER [facility] PROVIDER SERVICE [address] [place] [address] [place] [address] [facility] [phone] CENTER Social History Tobacco Use Types Packs/Day Years [...] of school you have High school yi ciscoumm 02/07/2020 completed or the highest degree you have received? Sex Assigned at Date Recorded Not on file documented as of this encounter Plan of Treatment Not on filedocumented as of this encounter Visit Diagnoses Not on filedocumented in this encounter Additional Health Concerns Assessment Noted Time PHQ-9 Depression Total Score: 2 11/06/2020 3:02 PM CDT documented as of this encounter Care Teams Business Account Leader Relationship Specialty Start Date End Date Blank Lemos, PCP - General Internal Medicine 04/22/[address] [place] [address] [place] [address] Blank Lemos, Assigned PCP 04/25/[address] [place] [address] K[place] [phone] Anabell Shannon Personal Advocate & 10/25/20 Liaison (PAL) Kathleen Lacy CNM Assigned OBGYN Provider 01/18/22 01/24/22 [place] [address] Sharita Frias, Assigned OBGYN Provider 01/25/22 [address] [address] [place], [place] [phone] documented as of this encounter
--- OUTSIDE RECORDS SUMMARY | 2022-04-09 07:16 | XMS_ITS | Encounter Summary ---
:1990 Author Organization [place] Address [address] [facility] [place] [address] Care Team Providers Name Role Phone Blank Lemos MD Primary Care Provider Blank Lemos MD Unavailable Anabell Shannon Unavailable Unavailable Sharita Frias MD Unavailable Reason for Visit Reason Comments Ultrasound RL2-subopt anatomy Encounter Details Date Type Department Care Team Description 03/05/2022 Office Visit [facility] Aimee Aguilar abn ormality Maternal MD Sean [facility] Medicine Center [address] of mother, antepartum, [place] [address] single or unspecified [address] [place], [place] fetus (Primary Dx) [address] [address] [place], [place] [phone] [address] (Work) [phone] Social History Tobacco Use Types Packs/Day Years Used Date Former Smoker Cigarettes 0.25 8 Quit: 06/24/20 19 Smokeless Tobacco: Never Used Alcohol Use Standard Drinks/Week Comments No 0 (1 standard drink = 0.6 oz pure alcoho l) Financial Resource Strain Answer Date Recorded How hard is it for you to pay for the very basics like Not h jnaett at all 02/07/2020 food, housing, medical care, [...] Exposure Response Date Recorded In the last 10 days, have you been in contact with No / Unsu re 03/05/2022 8:52 AM CDT someone who was confirmed or suspected to have Coronavirus/COVID-19? documented as of this encounter Progress Notes Aimee Aguilar MD - 03/05/2022 9:15 AM CDT Please see full imaging report from ViewPoint program under imaging tab. Aimee Aguilar MD Maternal Medicine documented in this encounter Plan of Treatment Not on filedocumented as of this encounter Visit Diagnoses Diagnosis abnormality affecting management o f mother, antepartum, single or unspecified fetus - Primary documented in this encounter Additional Health Concerns Assessment Noted Time PHQ-9 Depression Total Score: 2 11/06/2020 3:02 PM CDT documented as of this encounter Care Teams Burr Filer Relationship Specialty Start Date End Date Blank Lemos, PCP - General Internal Medicine 04/22/18 MD Zarate [facility] KISHAN [place] [phone] Blank Lemos, Assigned PCP 04/25/18 MD Zarate [facility] [place] [address] Anabell Shannon Personal Advocate & 10/25/20 Liaison (PAL) Sharita Frias, Assigned OBGYN Provider 01/25/[address] [place] [address] documented as of this encounter
--- OUTSIDE RECORDS SUMMARY | 2022-04-09 07:16 | XMS_ITS | Encounter Summary ---
:1990 Author Organization [place] Address [facility] [place] [address] Care Team Providers Name Role Phone Blank Lemos MD Primary Care Provider Blakn Lemos MD Unavailable Anabell Shannon Unavailable Unavailable Sharita Frias MD Unavailable Reason for Referral Diagnostic Imaging Ultrasound (Routine) - Pending Review Specialty Diagnoses / Procedures Referred By Contact Refer red To Contact Diagnoses abnormality affecting management of mother, antepartum, single or unspecified fetus Aimee Aguilar MD Procedures [facility] US Comprehensive Single F/U [address] [place] [address] 4 Referral ID Status Reason Start Date Expiration Date Visits V isits Requested Authorized [id number] Pending 02/05/2022 02/05/2023 1 1 Review Reason for Visit Diagnostic Imaging Ultrasound (Routine) - Pending Review Specialty Diagnoses / Procedures Referred By Contact Refer red To Contact Diagnoses abnormality affecting management of mother, antepartum, single or unspecified fetus Aimee Aguilar MD Procedures [facility] US Comprehensive Single F/U [address] [place] [id number] 4 Referral ID Status Reason Start Date Expiration Date Visits V isits Requested Authorized [id number] Pending 02/05/2022 02/05/2023 1 1 Review Encounter Details Date Type Department Care Team Description [facility]/05[facility]2022 [facility] F[facility] abnormality Maternal MD Sean affecting management Medicine Center [address] of mother, [place] [address] antepartum, single [address] [place], [place] or un specified fetus [address] [address] [place], [place] [phone] [address] (Work) [phone] Social History Tobacco Use Types Packs/Day Years [...] have Coronavirus/COVID-19? documented as of this encounter Medications at Time of Discharge Medication Sig Dispensed Refills Start Date End Date escitalopram (LEXAPRO) 20 Take 1 tablet (20 90 tablet 1 MG tabletIndications: mg) by mouth daily Generalized anxiety disorder, Bipolar I disorder (H) norethindrone (MICRONOR) Take 1 tablet (0.35 84 tablet 4 0.35 MG tabletIndications: mg) by mouth daily Routine follow-up Vit-Fe Fumarate-FA Take 1 tablet by 0 ( MULTIVITAMIN mouth daily W/IRON) 27-0.8 MG tablet documented as of this encounter Plan of Treatment Not on filedocumented as of this encounter Procedures Procedure Name Priority Date/Time Associated Comments Diagnosis [facility] US COMPREHENSIVE Routine 03/05/2022 9:49 AM abnormal ity Results for this SINGLE F/U CDT affecting procedure are i n management of the results mother, antepartum, section. single or unspecified fetus documented in this encounter Results [facility] US Comprehensive Single F/U (03/05/2022 9:49 AM [...] CDT Comp Follow Up Pat. Name: RENA ABREU Study Date: 03/05/2022 9:05am Pat. NO: [id number] Referring ??MD: COCO MAGAÑA [facility] Site: [facility] Hall Director: Hood Mcwilliams RDMS : 1990 Age: 32 INDICATION BMI 40 METHOD Transabdominal ultrasound examination. V iew: Sufficient [place] . Number of fetuses: 1 DATING ? Date ?Details ?Gest. age ?FATUMA LMP ?09/20/2021 ? 23 w + 5 d ? 06/27/2022 Prior assessment ? 07/2022 ? GA: 8 w + 3 [...] Biometry: BPD ?56.7 ?mm ? 23w 2d ?Butch ALLEN ?80.2 ?mm ? 24w 2d ?Nicolaides HC ?220.6 ?mm ?24w 1d ?Hadlock Cerebellum tr ?27.1 ? mm ?24w 4d ?Nicolaides AC ?183.2 ?mm ?23w 1d ?24% ?Hadlock Femur ?42.2 ? mm ?23w 5d ?Hadlock Weight Calculation: EFW ? 598 ? g ? 31% ?Hadlock EFW (lb,oz) ? 1 lb 5 ?oz EFW by ?Hadlock ([id number]) Head / Face / Neck Biometry: Dye House Wheel Operator ? 4.9 ? mm CM ?4.8 ? [...] documented previously: Heart / Thorax ?RVOT view. 6-webttm-hiilmvv view. ? Diaphragm. Spine ?Sacral spine. Gender: [...] are anticipat ed to be done in [place]. We recommend serial growth every 4-6 weeks [...] the original. Comp Follow Up Pat. Name:Noemi ABREU Date: 9:05am Pat. NO: [id number] MD:CARMENCITA ORTIZ [facility]Sandra Fleming :1990Age:32 INDICATION BMI 40 METHOD Transabdominal [...] 1 lb 5 oz EFW by Hadlock ([id number]-FL) Head / Face / Neck Biometry: Dye House Wheel Operator 4.9 mm CM 4.8 mm Nasal bone [...] documented previously: Heart / Thorax RVOT view. 8-bwqadd-jppmr ea view. Diaphragm. Spine Sacral spine. Gender: [...] are anticipat ed to be done in [place]. We recommend serial growth every 4-6 weeks [...] volume appeared no rmal. Aimee Aguilar MD [facility] US ORDERABLES documented in this encounter Visit Diagnoses Diagnosis abnormality affecting management o f mother, antepartum, single or unspecified fetus documented in this encounter Additional Health Concerns Assessment Noted Time PHQ-9 Depression Total Score: 2 11/06/2020 3:02 PM CDT documented as of this encounter Care Teams Pharmacy Salesperson Relationship Specialty Start Date End Date Blank Lemos, PCP - General Internal Medicine [facility]22[facility] K[place]AN R[place] [phone] Blank Lemos, Assigned PCP 04/25/18 [facility] [place] [address] Anabell Shannon Personal Advocate & 10/25/20 Liaison (PAL) Sharita Frias, Assigned OBGYN Provider 01/25/22 [address] [address] [place], [place] [phone] documented as of this encounter
--- OUTSIDE RECORDS SUMMARY | 2022-04-09 07:16 | XMS_ITS | Encounter Summary ---
:1990 Author Organization [place] Address [facility] [place] [address] Care Team Providers Name Role Phone Blank Lemos MD Primary Care Provider Blank Lemos MD Unavailable Anabell Shannon Unavailable Unavailable Sharita Frias MD Unavailable Reason for Visit Reason Comments Ultrasound L2- BMI 40 Encounter Details Date Type Department Care Team Description 01/29/2022 PRE VISIT [facility], Ultrasound (L2- BMI 40) Maternal Medicine [facility] [address] [facility] [address] [place] [address] Social History Tobacco Use Types Packs/Day Years [...] documented as of this encounter Care Teams Co Founder And Director Relationship Specialty Start Date End Date Blank Lemos, PCP - General Internal Medicine 04/22/[address] [place] [address] K[place] RENO [phone] Blank Lemos, Assigned PCP 04/25/[address] [place] [address] K[place]AN RENO [phone] Anabell Shannon Personal Advocate & 10/25/20 Liaison (PAL) Sharita Frias, Assigned OBGYN Provider 01/25/22 [address] [place] [address] documented as of this encounter
--- OUTSIDE RECORDS SUMMARY | 2022-04-09 07:16 | XMS_ITS | Encounter Summary ---
:1990 Author Organization [place] Address [address] [place] [address]. [place] [address] Care Team Providers Name Role Phone Blank Lemos MD Primary Care Provider Blank Lemos MD Unavailable Anabell Shannon Unavailable Unavailable Sharita Frias MD Unavailable Reason for Referral Diagnostic Imaging Ultrasound (Routine) - Pending Review Specialty Diagnoses / Procedures Referred By Contact Refer red To Contact Diagnoses abnormality affecting management of mother, antepartum, single or unspecified fetus Aimee Aguilar MD Procedures [facility] US Comprehensive Single F/U [address] [place], [place] [address] Referral ID Status Reason Start Date Expiration Date Visits V isits Requested Authorized [id number] Pending 02/05/2022 02/05/2023 1 1 Review Reason for Visit Reason Comments Ultrasound L2-BMI 40 Encounter Details Date Type Department Care Team Description 02/05/2022 Office Visit [facility] Coco Ortiz APRN [facility] [address] [place] [address] abnormality Maternal Aimee Aguilar MD [address] [place] [address] affecting management Medicine Center of mother, [place] antepartum, single or [address] unspecif ied fetus [address] (Primary Dx) [place] [address] Social History Tobacco Use Types [...] in contact with No / Unsu re 02/05/2022 10:12 AM CDT someone who was confirmed or suspected to have Coronavirus/COVID-19? documented as of this encounter Progress Notes Aimee Aguilar MD - 02/05/2022 10:45 AM CDT Please see full imaging report from ViewPoint program under imaging tab. Aimee Aguilar MD Maternal Medicine documented in this encounter Plan of Treatment Not on filedocumented as of this encounter Results [facility] US Comprehensive Single F/U (03/05/2022 9:49 AM [...] ABREU Study Date: 03/05/2022 9:05am Pat. NO: [id number] Referring ??MD: COCO ORTIZ Site: [facility] [employer] [facility] [employer] Supervisor: Hood Mcwilliams RDMS : 1990 Age: 32 [...] 1 lb 5 ?oz EFW by ?Hadlock (ITP-[id number]-FL) Head / Face / Neck Biometry: Heat Treating Furnace Tender ? 4.9 ? mm CM ?4.8 ? [...] documented previously: Heart / Thorax ?RVOT view. 4-ggtooj-vhjugdy view. ? Diaphragm. Spine ?Sacral spine. Gender: [...] are anticipat ed to be done in [place]. We recommend serial growth every 4-6 weeks [...] Pat. Name:Noemi ABREU Date: 9:05am Pat. NO: [id number] MD:CARMENCITA ORTIZ [facility]Sandra Fleming :1990Age:32 INDICATION BMI 40 METHOD Transabdominal [...] 1 lb 5 oz EFW by Hadlock (DME-GR-HA-FL) Head / Face / Neck Biometry: Heat Treating Furnace Tender 4.9 mm CM 4.8 mm Nasal bone [...] documented previously: Heart / Thorax RVOT view. 7-hyjsov-vrrfi ea view. Diaphragm. Spine Sacral spine. Gender: female. MATERNAL STRUCTURES Cervix Suboptimal Right Ovary Not examined Left Ovary Not examined RECOMMENDATION Thank-you for referring your patient for an ultrasound to reassess anatomy that was previously suboptimally seen on comprehensive survey. I discussed the findings on today's ultr asound with the patient. I reviewed the limitations of ultrasound. Further ultrasound studies are anticipat to be done in [place]. We recommend serial growth every 4-6 weeks [...] volume appeared no rmal. Aimee Aguilar MD IMG [facility] US ORDERABLES documented in this encounter Visit Diagnoses Diagnosis abnormality affecting management o f mother, antepartum, single or unspecified fetus - Primary abnormality affecting management o f mother, antepartum, single or unspecified fetus documented in this encounter Additional Health Concerns Assessment Noted Time PHQ-9 Depression Total Score: 2 11/06/2020 3:02 PM CDT documented as of this encounter Care Teams Clay Roaster Relationship Specialty Start Date End Date Blank Lemos, PCP - General Internal Medicine 04/22/[address] [place] [address] K[place] [phone] Blank Lemos, Assigned PCP 04/25/[address] [place] [address] K[place] [phone] Anabell Shannon Personal Advocate & 10/25/20 Liaison (PAL) Sharita Frias, Assigned OBGYN Provider 01/25/22 [address] [place] [address] documented as of this encounter
--- OUTSIDE RECORDS SUMMARY | 2022-04-09 07:16 | XMS_ITS | Encounter Summary ---
:1990 Author Organization [place] Address [address] [place] [address] Care Team Providers Name Role Phone Blank Lemos MD Primary Care Provider Blank Lemos MD Unavailable Anabell Shannon Unavailable Unavailable Sharita Frias MD Unavailable Encounter Details Date Type Department Care Team Description 02/05/2022 Travel Social History Tobacco Use Types Packs/Day [...] have Coronavirus/COVID-19? documented as of this encounter Plan of Treatment Not on filedocumented as of this encounter Visit Diagnoses Not on filedocumented in this encounter Additional Health Concerns Assessment Noted Time PHQ-9 Depression Total Score: 2 11/06/2020 3:02 PM CDT documented as of this encounter Care Teams Sales Supervisor Relationship Specialty Start Date End Date Blank Lemos, PCP - General Internal Medicine 04/22/[address] [place] [address] KISHAN RENO [phone] Blank Lemos, Assigned PCP 04/25/[address] [place] [address] KISHAN RENO [phone] Anabell Shannon Personal Advocate & 10/25/20 Liaison (PAL) Sharita Frias, Assigned OBGYN Provider 01/25/22 [address] [address] [place], [place] [phone] documented as of this encounter
--- OUTSIDE RECORDS SUMMARY | 2022-04-09 07:16 | XMS_ITS | Encounter Summary ---
:1990 Author Organization [place] Address [facility] [place] [address] Care Team Providers Name Role Phone Blank Lemos MD Primary Care Provider Blank Lemos MD Unavailable Kathleen Lacy Unavailable Anabell Shannon Unavailable Unavailable Reason for Visit Reason Comments Care Delivered a girl weighing 7 lbs 15 oz on 09/28/2020 via Contraception Would like the mini pill Encounter Details Date Type Department Care Team Description [facility] Blu follow-up (Primary [place] [address] Dx) [address] [place] [address] [address] [place], [place] [phone] [address] (Work) [phone] Social History Tobacco Use Types Packs/Day Years [...] / COVID-19? 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 documented in this encounter Nursing Notes Gonzalez Mitchell MA - 11/05/2020 2:15 PM CDT Chief Complaint Patient presents with ??? Care Delivered a girl weighing 7 lbs 15 oz on 09/28/2020 via ??? Contraception Would like the mini pill Initial BP 110/72 (BP Location: Left arm, Cuff Size: Adult Regular) Wt 105.2 kg (232 lb) LMP 12/22/2019 Yes BMI 41.10 kg/m?? Estimated body mass index is 41.1 kg/m?? as calculatedfrom the following: Height as of 09/28/20: 1.6 m (5' 3). Weight as of this encounter: 105.2 kg (232 lb). BP completed using cuff size: regular Questioned patient about current smoking habits. Pt. has never smoked. The following HM Due: NONE Would like consult referral documented in this encounter Plan of Treatment Not on filedocumented as of this encounter Visit Diagnoses Diagnosis Routine follow-up - Primary documented in this encounter Additional Health Concerns Assessment Noted Time PHQ-9 Depression Total Score: 3 11/05/2020 2:18 PM CDT documented as of this encounter Care Teams Major Account Representative Relationship Specialty Start Date End Date Blank Lemos, PCP - General Internal Medicine 04/22/[address] [place] [address] KISHAN RENO [phone] Blank Lemos, Assigned PCP [facility]/25/[facility] KISHAN RENO [address] Kathleen Lacy CNM Assigned OBGYN Provider 06/01/20 11/23/21 [place] [address] Anabell Shannon Personal Advocate & 10/25/20 Liaison (PAL) documented as of this encounter
--- OUTSIDE RECORDS SUMMARY | 2022-04-09 07:16 | XMS_ITS | Encounter Summary ---
:1990 Author Organization [place] Address [address] [place] [address] Care Team Providers Name Role Phone Blank Lemos MD Primary Care Provider Blank Lemos MD Unavailable Anabell Shannon Unavailable Unavailable Sharita Frias MD Unavailable Reason for Referral Diagnostic Imaging Ultrasound (Routine) - Pending Review Specialty Diagnoses / Procedures Referred By Contact Refer red To Contact Diagnoses related condition, antepartum Carmencita Ortiz, Procedures [facility] GINNY DUGAN [facility] [address] [address] Referral ID Status Reason Start Date Expiration Date Visits V isits Requested Authorized [id number] Pending 01/26/2022 01/26/2023 1 1 Review Consultation (Routine) - Pending Review Specialty Diagnoses / Procedures Referred By Contact Refer red To Contact Diagnoses related condition, antepartum Carmencita Ortiz APRN CNP [address] [address] Referral ID Status Reason Start Date Expiration Date Visits V isits Requested Authorized [id number] Pending 01/26/2022 01/26/2023 1 1 Review Encounter Details Date Type Department Care Team Description 01/26/2022 Transcribe Orders M [facility] Luis, Caitlin graciela related Maternal Carmencita Carrington APRN condition , Medicine Center DIRECTOR OF PUPIL PERSONNEL PROGRAM antepartum (Primary [facility] Dx) [address] [facility] [address] [place] [address] [phone] Social History Tobacco Use Types Packs/Day Years Used Date Former Smoker Cigarettes 0.25 8 Quit: 06/24/20 Smokeless Tobacco: Never Used Alcohol Use Standard [...] as of this encounter Plan of Treatment Scheduled Referrals Name Type Priority Associated Diagnoses Order S chedule Mat Med Ctr Referral Routine related Expec logan: 01/26/2022 Referral - condition, antepartu m (Approximate), Expires: 2021 documented as of this encounter Results MFM US Comprehensive Single (02/05/2022 11:12 AM CDT) Anatomical [...] 1:01 PM CDT Comprehensive Pat. Name: RENA ABREU Study Date: 02/05/2022 10:22am Pat. NO: [id number] Referring ??MD: COCO ORTIZ Site: [facility] Senior Net C Developer: Dion mora RDMS : 1990 Age: 32 [...] Biometry: BPD ?45.5 ?mm ? 19w 5d ?Hadlock OFD ?61.4 ?mm ? 19w 6d ?Nicolaides HC ?171.8 ?mm ?19w 5d ?Hadlock Cerebellum tr ?20.9 ? mm ?19w 6d ?Nicolaides AC ?145.4 ?mm ?19w 6d ?49% ?Hadlock Femur ?32.4 ? mm ?20w 1d ?Hadlock Humerus ?31.0 ?mm ? 20w 2d ?Wendy Weight Calculation: EFW ? 322 ? g ? 58% ?Hadlock EFW (lb,oz) ? 0 lb 11 ? oz EFW by ?Butch ([id number]) Head / Face / Neck Biometry: Gas Engineer ? 5.4 ? mm CM ?3.2 ? [...] vena cava. Inferior vena cava. 3-vessel view. 4-kkhapo-kqbibsm view. Cardiac position. ? Cardiac size. Cardiac [...] a comprehensive ultrasound. She is referred from [place] for BMI > 40. I discussed the findings on today's ultr asound with the patient. I reviewed the limitations of ultrasound both in detecting aneuploidy and structural abnormalities. Ultrasound, when views completed, can routinely dete ct 80-90% of structural abnormalities. She had low risk cell free DNA for genetic screening this . Follow-up is scheduled here in three [facility] to reassess anatomy that was suboptimally seen today. Additional surveillance is recommended in the (growth US every 4-6 weeks, weekly BPP at 34 weeks) and I assume that this will be done in [place]. Return to primary provider for continued care. If you have questions regarding today's evaluation or if we can be of further service, please contact the [facility]. Procedure Note Aimee Aguilar MD - 02/05/2022Form atting of this note might be different from the original. Comprehensive Pat. Name:Noemi ABREU Date: 10:22am Pat. NO: [id number] MD:CARMENCITA ORTIZ [facility]Dion Cruz RDMS :1990Age:32 INDICATION BMI 40 METHOD [...] 1d Hadlock Humerus 31.0 mm 20w 2d [facility] Weight Calculation: EFW 322 g 58% Hadlock EFW (lb,oz) 0 lb 11 oz EFW by Hadlock ([id number]) Head / Face / Neck Biometry: Gas Engineer 5.4 mm CM 3.2 mm Nuchal fold [...] vena cava. Inferior vena cava. 3-vessel view. 8-zzhnoy-fdgvfmv view. Cardiac position. Cardiac size. Cardiac rhythm. [...] a comprehensive ultrasound. She is referred from [place] for BMI > 40. I discussed the findings on today's ultr asound with the patient. I reviewed the limitations of ultrasound both in detecting aneuploidy and structural abnormalities. Ultrasound, when views completed, can routinely dete ct 80-90% of structural abnormalities. She had low risk cell free DNA for genetic screening this . [facility] that was suboptimally seen today. Additional surveillance is recommended in the (growth US every 4-6 weeks, weekly BPP at 34 weeks) and I assume that this will be done in [place]. Return to primary provider for continued care. [...] the cervix appears long and closed. Carmencita Ortiz APRN DIRECTOR OF PUPIL PERSONNEL PROGRAM IMG M US ORDERABLES documented in this encounter Visit Diagnoses Diagnosis related condition, antepartum - Primary related condition, antepartum documented in this encounter Additional Health Concerns Assessment Noted Time PHQ-9 Depression Total Score: 2 11/06/2020 3:02 PM CDT documented as of this encounter Care Teams Legal Process Specialist Relationship Specialty Start Date End Date Blank Lemos, PCP - General Internal Medicine 04/22/[address] [place] [address] K[place]AN RENO [phone] Blank Lemos, Assigned PCP 04/25/18 [facility] KISHAN RENO [phone] Anabell Shannon Personal Advocate & 10/25/20 Liaison (PAL) Sharita Frias, Assigned OBGYN Provider 01/25/22 [address] [place] [address] documented as of this encounter
--- OUTSIDE RECORDS SUMMARY | 2022-04-09 07:16 | XMS_ITS | Encounter Summary ---
:1990 Author Organization [place] Address [facility] [place] [address] Care Team Providers Name Role Phone Blank Lemos MD Primary Care Provider Blank Lemos MD Unavailable Kathleen Lacy CN Unavailable Anabell Shannon Unavailable Unavailable Reason for Visit Reason Comments Care del 09/28, C/S Danita 7 lbs 1 5 oz Encounter Details Date Type Department Care Team Description 11/06/2020 Office [facility] Sharita Salinas ASCUS with positive high risk HPV cervical (Primary Dx); Visit Clinic Latanya Hurt MD Routine follow-up [address] [place] [address] [place], [place] [phone] Social History Tobacco Use Types Packs/Day Years [...] of school you have High school gra duumm 02/07/2020 completed or the highest degree you [...] Pressure 100/60 11/06/2020 2:30 PM CDT Pulse - - Temperature - - Respiratory Rate - - Oxygen Saturation - - Inhaled Oxygen Concentration - - Weight 104.8 kg (231 lb) 11/06/2020 2:30 PM CDT Height 160 cm (5' 3) 11/06/2020 2:30 PM CDT Body Mass Index 40.92 11/06/2020 2:30 PM CDT documented in this encounter Progress Sharita Kincaid MD - 11/06/2020 2:30 PM CDT SUBJECTIVE: CC: visit HPI: Rena Resendiz is a 30 year old s/p PLTCS for arrest of dilation and obesity 6 weeks ago who presents for follow up. History of abnormal pap smear, s/p colposcopy in c/w ANGELLA 1-2 but no biopsies taken due to . Plan for follow-up pap smear today. H/o GABRIEL and bipolar, managed by PCP Blank Lemos on lexapro 20mg. Mood is good Is pumping for baby Baby is doing well, doing social smiles. Wt Readings from Last 3 Encounters: 11/06/20 104.8 kg (231 lb) 11/05/20 105.2 kg (232 lb) 03/11/21 105 kg (231 lb 6.4 oz) PHQ-9 SCORE 02/02/2020 08/27/2020 11/05/2020 PHQ-9 Total Score - - - PHQ-9 Total Score MyChart - 5 (Mild depression) - PHQ-9 Total Score 10 5 3 GABRIEL-7 SCORE 12/08/2019 02/02/2020 08/27/2020 Total Score - - 5 (mild anxiety) Total Score 19 14 5 ROS: 10 point ROS negative other than as listed above in HPI. Last 3 Pap and HPV Results: PAP / HPV Latest Ref Rng & Units 02/24/2020 09/22/2018 04/05/2015 PAP - ASC-US(A) LSIL(A) NIL HPV 16 DNA NEG:Negative Negative Negative - HPV 18 DNA NEG:Negative Negative Negative - OTHER HR HPV NEG:Negative Positive(A) Positive(A) - PMH, PSH, Soc Hx, Fam Hx, Meds, and allergies reviewed in Epic. OBJECTIVE: BP 100/60 (BP Location: Right arm, Patient Position: Chair, Cuff Size: Adult Large) Ht 1.6 m (5' 3) Wt 104.8 kg (231 lb) No BMI 40.92 kg/m?? Gen: Healthy appearing obese female, no acute distress, comfortable. Well groomed, good eye contact. HENT: No scleral injection or icterus CV: Regular rate Resp: Normal work of breathing, no cough Psychiatric: mentation appears normal and affect bright Pfannenstiel [employer] c/d/i and well healed. : Normal external female genitalia.?? No external lesions, normal hair distribution. SSE: Speculum exam reveals vaginal epithelium well rugated with normal physiologic discharge. Cervixappears smooth, pink, with no visible lesions. Pap obtained. ASSESSMENT/PLAN: 1. ASCUS with positive high risk HPV cervical - Pap imaged thin layer diagnostic with HPV (select HPV order below) - HPV High Risk Types DNA Cervical 2. Routine follow-up - norethindrone (MICRONOR) 0.35 MG tablet; Take 1 tablet (0.35 mg) by mouth daily Dispense: 84 tablet; Refill: 4 Doing well, see HPI. Discussed risk of anxiety/depression for up to a year. Minipill for contraception. Sharita Salinas MD, MPH Obstetrics and Gynecology documented in this encounter Nursing Notes Nara Singh - 11/06/2020 2:30 PM CDT Chief Complaint Patient presents with ??? Care del 09/28, C/S Danita 7 lbs 15 oz Initial BP 100/60 (BP Location: Right arm, Patient Position: Chair, Cuff Size: Adult Large) Ht 1.6m (5' 3) Wt 104.8 kg (231 lb) No BMI 40.92 kg/m?? Estimated body mass index is 40.92 kg/m?? as calculated from the following: Height as of this encounter: 1.6 m (5' 3). Weight as of this encounter: 104.8 kg (231 lb). BP completed using cuff size: regular Questioned patient about current smoking habits. Pt. has never smoked. The following HM Due: NONE Nara Singh CMA documented in this encounter Plan of Treatment Not on filedocumented as of this encounter Procedures Procedure Name Priority Date/Time Associated Comments Diagnosis HPV HIGH RISK TYPES Routine 11/06/2020 2:54 PM ASCUS with posi tive Results for this DNA CERVICAL CDT high risk HPV procedure are in cervical the results section. PAP IMAGED THIN Routine 11/06/2020 2:50 PM ASCUS with positive Results for this LAYER, DIAGNOSTIC CDT high risk HPV procedure are in cervical the results section. documented in this encounter Results (ABNORMAL) HPV High Risk Types DNA Cervical (11/06/2020 2:54 PM CDT) [facility] Method Time Signature HPV Source SurePath 11/06/2020 [place] 2:50 PM CDT [facility] HPV 16 DNA Negative NEG^Negat 11/12/2020 [facility] yakelin 2:05 PM CDT [facility] HPV 18 DNA Negative NEG^Negat 11/12/2020 [facility] 2:05 PM CDT [facility] Other HR HPV Positive (A) NEG^Negat 11/12/2020 [facility] 2:05 PM CDT [facility] Final This patient's sample is pos itive for other HR HPV DNA (types 31, 33, 35, 39, 45, 51, 52, 11/12/2020 [facility] 56, 58, 59, 66 or 68), not H PV 16 or HPV 18 DNA. This result requires clinical correlation 2:05 PM CDT [facility] with concurrent cytology findings. [facility] Comment: This test was developed and its performa nce characteristics determined by the [facility]. It has not been cleared or approved by the FDA. The laboratory is regulated under CLIA as qualified to perform high-compl exity testing. This test is used for clinical purposes. It should not be rega rded as investigational or for research. (Note) METHODOLOGY: ??The Shruthi vera 4800 syst em uses automated extraction, simultaneous amplification of HPV (L1 re gion) and beta-globin, ?? followed by ??real time detection of flu orescent labeled HPV and beta globin using specific oligonucleotide pr obes . The test specifically identifies types HPV 16 DNA and HPV 18 D NA while concurrently detecting the rest of the high risk type s (31, 33, 35, 39, 45, 51, 52, 56, 58, 59, 66 or 68). COMMENTS: ??This test is not intended fo r use as a screening device for women under age 30 with normal cervi kimberly cytology. ??Results should be correlated with cytologic and histolo gic findings. Close clinical followup is recommended. Specimen Description Cervical Cells 11/06/2020 2:5 0 PM CDT [facility] Specimen Anatomical Collection Method Collection Time Receive d Time (Source) Location / / Volume Laterality Cervical Cells 11/06/2020 2:54 PM 021 2:55 CDT PM CDT Sharita Salinas MD LAB - BLOOD ORDERABLES Performing Organization Address City/State/ZIP Code Phon e Number [facility] [address] [place] [address] [facility] [address] [place] [address] [facility] Pap imaged thin layer diagnostic with HPV (select HPV order below) (11/06/2020 2:50 PM CDT) Component Value Ref Test Analysis Performed At [facility] gist Range Method Time Signature PAP NIL COPATH Copath Report COPATH Patient Name: RENA RESENDIZ MR#: [id number] Specimen #: [id number] Collected: 11/06/2020 Received: 11/07/2020 Reported: 11/08/2020 15:09 Ordering Phy(s): SHARITA SALINAS For improved result formatting, select 'View Enhanced Report Format' under Linked Documents section. SPECIMEN/STAIN PROCESS: Pap Imaged thin layer prep diagnostic (SurePath, FocalPoint with guided screening) ? Pap-Cyto x 1, HPV ordered x 1 SOURCE: Cervical, endocervical ---- Pap Imaged thin layer prep diagnostic (SurePath, FocalPoint with guided screening) SPECIMEN ADEQUACY: Satisfactory for evaluation. -Transformation zone component present. CYTOLOGIC INTERPRETATION: Negative for intraepithelial lesion or malignancy Electronically signed out by: CESARIO Heck (ASCP) CLINICAL HISTORY: Post-, Previous ASC-US Date of Last Pap: 02/24/20, Biopsy: angella 2 Colposcopy, Papanicolaou Test Limitations: ??Cervical cytology is a sc reening test with limited sensitivity; regular screening is critical for cancer prevention; Pap tests are p rimarily effective for the diagnosis/prevention of squamous cell carcinoma, not adenocarcinomas or other cancer s. COLLECTION SITE: Client: ??[facility] Location: [place] () The technical component of this testing was completed at the [facility], with the professional compo nent performed at the [facility], [address] [place] [address], [place] [address] ([phone]) Specimen (Source) Anatomical Collection Method Collection Time Re ceived Time Location / / Volume Laterality Cytologic 11/06/2020 2:50 11/07/2020 material PM CDT 11:23 AM CDT (specimen) Sharita Salinas MD LAB - OPTIME CLINICAL SPECIM EN Performing Organization Address City/State/ZIP Code Phon e Number [place] documented in this encounter Visit Diagnoses Diagnosis ASCUS with positive high risk HPV cervic al - Primary Routine follow-up documented in this encounter Additional Health Concerns Assessment Noted Time PHQ-9 Depression Total Score: 2 11/06/2020 3:02 PM CDT documented as of this encounter Care Teams Telemetry Rn Relationship Specialty Start Date End Date Blank Lemos, PCP - General Internal Medicine 04/22/[address] [place] [address] K[place]AN RENO [id number] Blank Lemos, Assigned PCP 04/25/18 [facility] KISHAN RENO [phone] Kathleen Lacy CNM Assigned OBGYN Provider 06/01/20 11/23/21 [address] [place] [address] Anabell Shannon Personal Advocate & 10/25/20 Liaison (PAL) documented as of this encounter
--- OUTSIDE RECORDS SUMMARY | 2022-04-09 07:16 | XMS_ITS | Encounter Summary ---
:1990 Author Organization [place] Address [address] [place] [address] Care Team Providers Name Role Phone Blank Lemos MD Primary Care Provider Blank Lmeos MD Unavailable Anabell Shannon Unavailable Unavailable Sharita Frias MD Unavailable Encounter Details Date Type Department Care Team Description 03/05/2022 Travel Social History Tobacco Use Types Packs/Day [...] documented as of this encounter Care Teams Lamination Inspector Relationship Specialty Start Date End Date Blank Lemos, PCP - General Internal Medicine 04/22/[address] [place] [address] KISHAN RENO [phone] Blank Lemos, Assigned PCP 04/25/[address] [place] [address] KISHAN RENO [phone] Anabell Shannon Personal Advocate & 10/25/20 Liaison (PAL) Sharita Frias, Assigned OBGYN Provider 01/25/22 [address] [address] [place], [place] [phone] documented as of this encounter
--- OUTSIDE RECORDS SUMMARY | 2022-04-09 07:16 | XMS_ITS | Encounter Summary ---
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 documented as of this encounter Plan of Treatment Not on filedocumented as of this encounter Visit Diagnoses Not on filedocumented in this encounter Additional Health Concerns Assessment Noted Time PHQ-9 Depression Total Score: 5 12/06/2020 7:02 AM CDT documented as of this encounter Care Teams Book Sewer Relationship Specialty Start Date End Date Blank Lemos MD PCP - General Internal Medicine 04/22/[address] [place] [address] KISHAN RENO [phone] Blank Lemos MD Assigned PCP 04/25/[address] [place] [address] KISHAN RENO [phone] Kathleen Lacy CNM Assigned OBGYN Provider 06/01/20 11/23/21 [address] [place] [address] documented as of this encounter
--- OUTSIDE RECORDS SUMMARY | 2022-04-09 07:16 | XMS_ITS | Encounter Summary ---
:1990 Author Organization [place] Address [address] [facility] [place] [address] Care Team Providers Name Role Phone Blank Lemos MD Primary Care Provider Blank Lemos MD Unavailable Kathleen Lacy CNM Unavailable Anabell Shannon Unavailable Unavailable Encounter Details Date Type Department Care Team Description 10/03/2020 Medical Correspondence [facility] Scan, EPISODE SUMMARY Health Info Mgmt Non-Provider REPORT ACCE CARE Srs [address] [place] [address] Social History Tobacco Use Types Packs/Day Years [...] documented as of this encounter Care Teams Field Map Editor Relationship Specialty Start Date End Date Blank Lemos, PCP - General Internal Medicine 04/22/[address] [place] [address] KISHAN RENO [phone] Blank Lemos, Assigned PCP 04/25/18 [facility] KISHAN RENO [phone] Kathleen Lacy CNM Assigned OBGYN Provider 06/01/20 11/23/21 [place] [address] Anabell Shannon Personal Advocate & 10/25/20 Liaison (PAL) documented as of this encounter
--- OUTSIDE RECORDS SUMMARY | 2022-04-09 07:16 | XMS_ITS | Encounter Summary ---
:1990 Author Organization [facility] Address [address] [place] [address] Care Team Providers Name Role Phone Blank Lemos MD Primary Care Provider Blank Lemos MD Unavailable Anabell Shannon Unavailable Unavailable Sharita Frias MD Unavailable Reason for Referral Diagnostic Imaging Ultrasound (Routine) - Pending Review Specialty Diagnoses / Procedures Referred By Contact Refer red To Contact Diagnoses related condition, antepartum Carmencita Ortiz, Procedures [address] [address] Referral ID Status Reason Start Date Expiration Date Visits V isits Requested Authorized [id number] Pending 01/26/2022 01/26/2023 1 1 Review Reason for Visit Diagnostic Imaging Ultrasound (Routine) - Pending Review Specialty Diagnoses / Procedures Referred By Contact Refer red To Contact Diagnoses related condition, antepartum Carmencita Ortiz, Procedures [address] [address] Referral ID Status Reason Start Date Expiration Date Visits V isits Requested Authorized [id number] Pending 01/26/2022 01/26/2023 1 1 Review Encounter Details Date Type Department Care Team Description 02/05/2022 Hospital Encounter [facility] Federico Ortiz APRN CNP [facility] [address] [place] [address] related Maternal Aimee Aguilar MD [address] [place] [address] condition, Medicine Center antepartum [place] [address] [place] [address] Social History Tobacco Use Types [...] Comments Diagnosis [facility] COMPREHENSIVE Routine 02/05/2022 11:12 relate d Results for this SINGLE AM CDT condition, procedure are i n antepartum the results section. documented in this encounter Results [facility] Comprehensive Single (02/05/2022 11:12 AM CDT) [...] ABREU Study Date: 02/05/2022 10:22am Pat. 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 V iew: Suboptimal view: limited by maternal body habitus Mendoza . Number of fetuses: 1 DATING ? Date ?Details ?Gest. age ?FATUMA LMP ?09/20/2021 ? 19 w + 5 d ? 06/27/2022 Prior assessment ? / 07/2022 ? GA: 8 w + 3 [...] lb 11 ? oz EFW by ?Hadlock ([id number]) Head / Face / Neck Biometry: Canteen Attendant ? 5.4 ? mm CM ?3.2 ? [...] vena cava. Inferior vena cava. 3-vessel view. 6-xamexy-gsvubkn view. Cardiac position. ? Cardiac size. Cardiac [...] a comprehensive ultrasound. She is referred from [place] for BMI > 40. I discussed the findings on today's ultr asound with the patient. I reviewed the limitations of ultrasound both in detecting aneuploidy and structural abnormalities. Ultrasound, when views completed, can routinely dete ct 80-90% of structural abnormalities. She had low risk cell free DNA for genetic screening this . Follow-up is scheduled here in [facility] to reassess anatomy that was suboptimally seen today. Additional surveillance is recommended in the (growth US every 4-6 weeks, weekly BPP at 34 weeks) and I assume that this will be done in [place]. Return to primary provider for continued care. If you have questions regarding today's evaluation or if we can be of further service, please contact the [facility]. Procedure Note Aimee Aguilar MD - 02/05/2022Form atting of this note might be different from the original. Comprehensive Pat. Name:Noemi ABREU Date: 10:22am Pat. NO: [id number] MD:CARMENCITA ORTIZ [facility]ion [facility] RDMS :1990Age:32 INDICATION BMI 40 [...] (lb,oz) 0 lb 11 oz EFW by Butch ([id number]) Head / Face / Neck Biometry: Canteen Attendant 5.4 mm CM 3.2 mm Nuchal fold [...] vena cava. Inferior vena cava. 3-vessel view. 2-uxbopn-zfxrxdf view. Cardiac position. Cardiac size. Cardiac rhythm. [...] a comprehensive ultrasound. She is referred from [place] for BMI > 40. I discussed the findings on today's ultr asound with the patient. I reviewed the limitations of ultrasound both in detecting aneuploidy and structural abnormalities. Ultrasound, when views completed, can routinely dete ct 80-90% of structural abnormalities. She had low risk cell free DNA for genetic screening this . Follow-up is scheduled here in [facility] to reassess anatomy that was suboptimally seen today. Additional surveillance is recommended in the (growth US every 4-6 weeks, weekly BPP at 34 weeks) and I assume that this will be done in [place]. Return to primary provider for continued [...] cervix appears long and closed. 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 ORDERABLES documented in this encounter Visit Diagnoses Diagnosis related condition, antepartum documented in this encounter Additional Health Concerns Assessment Noted Time PHQ-9 Depression Total Score: 2 11/06/2020 3:02 PM CDT documented as of this encounter Care Teams Tunneller Relationship Specialty Start Date End Date Blank Lemos, PCP - General Internal Medicine [facility]22[facility] [place] [phone] Blank Lemos, Assigned PCP 04/25/18 [facility] [place] [phone] Anabell Shannon Personal Advocate & 10/25/20 Liaison (PAL) Sharita Frias, Assigned OBGYN Provider 01/25/22 [id number] [place], [place] [phone] documented as of this encounter
--- OUTSIDE RECORDS SUMMARY | 2022-04-09 07:16 | XMS_ITS | Encounter Summary ---
:1990 Author Organization [place] Address [facility] [place] [address] Care Team Providers Name Role Phone Blank Lemos MD Primary Care Provider Blank Lemos MD Unavailable Kathleen Lacy CNM Unavailable Reason for Visit Reason Comments Surgical Followup check incision - has been ir ritated since surgery, but worsening now with odor Encounter Details Date Type Department Care Team Description 10/18/2020 Office Visit [facility] Yonathan Giraldo for postoperative wound check (Primary Dx); [facility] MD Avelino Morbid obesity (H) [place] [address] [facility] [address] [place], [place] [address] [place] [address] Social History Tobacco Use Types [...] with No / Unsure 10/18/2020 2:11 PM WATCHGUARD someone who was confirmed or suspected to have Coronavirus / COVID-19? documented as of this encounter Last Filed Vital Signs Vital Sign Reading Time Taken Comments Blood Pressure 108/72 10/18/2020 2:16 PM WATCHGUARD Pulse - - Temperature 36.8 ??C (98.3 ??F) 10/18/2020 2:16 PM WATCHGUARD Respiratory Rate - - Oxygen Saturation - - Inhaled Oxygen Concentration - - Weight 105 kg (231 lb 6.4 oz) 10/18/2020 2:16 PM WATCHGUARD Height - - Body Mass Index 40.99 09/28/2020 8:52 AM WATCHGUARD documented in this encounter Progress Notes Yonathan Giraldo MD - 10/18/2020 2:15 PM CST Post Op Follow Up Rena Turner is here for post op follow up visit following primary LTCS on 09/28/20. Procedure was uncomplicated. She presents for a wound check today as the inferior edge of the wound has had a red blotchy greasy rash with an odor. Since surgery patient has had this persistent rash which she cannot see well and her can't describe well. The odor is troubling. Activity, bowel function and bladder function have all returned to normal. EXAM: Abdomen: Abdomen soft, non-tender. BS normal. No masses, organomegaly. Incision is intact. Inferior to the incision there are patches or erythmatous epithelium with an odor suggestive of pseudomonas The areas were rinsed with hydrogen peroxide and guaze loosely packed within the pannus Continue 2-3X daily hyrogen peroxide rinses followed by placement of guaze fluffs in crease of incision Follow up as scheduled for 6 week PP visit or prn Macho Giraldo MD HGUARD documented in this encounter Nursing Notes Shi Rinaldi CMA - 10/18/2020 2:15 PM CST Chief Complaint Patient presents with ??? Surgical Followup check incision - has been irritated since surgery, but worsening now with odor Baby girl Danita born 09[birth year] initial BP 108/72 Temp 98.3 ??F (36.8 ??C) (Oral) Wt 105 kg (231 lb 6.4 oz) Yes BMI 40.99 kg/m?? Estimated body mass index is 40.99 kg/m?? as calculated from the following: Height as of 09/28/20: 1.6 m (5' 3). Weight as of this encounter: 105 kg (231 lb 6.4 oz). BP completed using cuff size largeReno Rinaldi CMA HGUARD documented in this encounter Plan of Treatment Not on filedocumented as of this encounter Visit Diagnoses Diagnosis Encounter for postoperative wound check - Primary Other specified aftercare following surg genia Morbid obesity (H) Morbid obesity documented in this encounter Additional Health Concerns Assessment Noted Time PHQ-9 Depression Total Score: 5 12/06/2020 7:02 AM CDT documented as of this encounter Care Teams Associate Professor Of Literature Relationship Specialty Start Date End Date Blank Lemos MD PCP - General Internal Medicine 04/22/18 [address] [facility] K[place] [place] [phone] Blank Lemos MD Assigned PCP 04/25/18 [address] [facility] [place] [id number] Kathleen Lacy CNM Assigned OBGYN Provider 06/01/20 11/23/21 [facility] [place] [address] documented as of this encounter
--- OUTSIDE RECORDS SUMMARY | 2022-04-09 07:17 | XMS_ITS | Encounter Summary ---
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 Indication for care in labor or delivery Indication for care in labor or delivery Rh Procedures L AND D [address] [place], [place] [address] Phone: Fax: Referral ID Status Reason Start Date Expiration Date Visits Requ ested Visits Authorized [id number] 1 1 Encounter Details Date Type Department Care Team Description 09/28/2020 - [facility] [address] [id number] Indication for care in labor or delivery (Primary Dx); 09/30/2020 Encounter [facility] [place] [address] [place], [place] [id number] Postoperative state [address] [place] [address] Social History Tobacco Use Types [...] been in contact with No / Unsure 09/28/2020 8:47 AM PUBLIC POLICY ANALYST someone who was confirmed or suspected to have Coronavirus / COVID-19? documented as of this encounter Last Filed Vital Signs Vital Sign Reading Time Taken Comments Blood Pressure 118/72 09/30/2020 9:40 AM PUBLIC POLICY ANALYST Pulse 76 09/30/2020 9:40 AM PUBLIC POLICY ANALYST Temperature 36.8 ??C (98.2 ??F) 09/30/2020 9:40 AM PUBLIC POLICY ANALYST Respiratory Rate 18 09/30/2020 9:40 AM PUBLIC POLICY ANALYST Oxygen Saturation 98% 09/29/2020 9:00 AM PUBLIC POLICY ANALYST Inhaled Oxygen Concentration - - Weight 112.9 kg (249 lb) 09/28/2020 8:52 AM PUBLIC POLICY ANALYST Height 160 cm (5' 3) 09/28/2020 8:52 AM PUBLIC POLICY ANALYST Body Mass Index 44.11 09/28/2020 8:52 AM PUBLIC POLICY ANALYST documented in this encounter Discharge Summaries Danial Falcon MD - 09/30/2020 9:24 AM CST [facility] Obstetrics Post-Op / Discharge Summary Note Assessment and Plan: Assessment: Post-operative day #2 Low transverse primary section L&D complications: A 30 year oldhvj-ogcx-hfn at 40w1d weeks estimated gestational age admitted for labor with arrest of dilation, obesity. BMI 44. Doing well. Clean wound without signs of infection. Normal healing wound. No immediate surgical complications identified. No excessive bleeding Pain well-controlled. Pt desires discharge home today Plan: Ambulation encouraged Breast feeding strategies discussed Monitor wound for signs of infection Pain control measures as needed Reportable signs and symptoms dicussed with the patient No lifting > 10 lbs for 6 wks Take your tempature twice daily for 3 days and call if > 100.4 Nothing in vagina for 6 wks Continue taking MVI daily for 1 month Discharge later today Interval History: Doing well. Pain is well-controlled. No fevers. No history of wound drainage, warmth or significant erythema. Good appetite. Denies chest pain, shortness of breath, nausea or vomiting. Ambulatory. well. Significant Problems: Past Medical History: Diagnosis Date ??? Abnormal Pap smear of cervix 09/22/2018, 02/24/20 See problem list ??? Bipolar disorder ??? Cervical high risk HPV (human papillomavirus) test positive 09/22/2018, 02/24/20 See problem list ??? Depression ??? Depressive disorder taking meds ??? Generalized anxiety disorder Review of Systems: The patient denies any chest pain, shortness of breath, excessive pain, fever, chills, purulent drainage from the wound, nausea or vomiting. Medications: All medications related to the patient's surgery have been reviewed Current Facility-Administered Medications Medication ??? acetaminophen (TYLENOL) tablet 975 mg ??? bisacodyl (DULCOLAX) Suppository 10 mg ??? dextrose 5% in lactated ringers infusion ??? escitalopram (LEXAPRO) tablet 20 mg ??? hydrocortisone 2.5 % cream ??? ibuprofen (ADVIL/MOTRIN) tablet 800 mg ??? lactated ringers BOLUS 1,000 mL ??? lanolin cream ??? lidocaine (LMX4) cream ??? lidocaine 1 % 0.1-1 mL ? ? Measles, Mumps & Rubella Vac (MMR) injection 0.5 mL ??? naloxone (NARCAN) injection 0.2 mg Or ??? naloxone (NARCAN) injection 0.4 mg Or ??? naloxone (NARCAN) injection 0.2 mg Or ??? naloxone (NARCAN) injection 0.4 mg ??? NO Rho (D) immune globulin (RhoGam) needed - mother Rh POSITIVE ??? ondansetron (ZOFRAN) injection 4 mg ??? oxyCODONE (ROXICODONE) tablet 5 mg ??? oxytocin (PITOCIN) 30 units in 500 mL 0.9% NaCl infusion ??? oxytocin (PITOCIN) 30 units in 500 mL 0.9% NaCl infusion ??? oxytocin (PITOCIN) injection 10 Units ??? senna-docusate (SENOKOT-S/PERICOLACE) 8.6-50 MG per tablet 1 tablet Or ??? senna-docusate (SENOKOT-S/PERICOLACE) 8.6-50 MG per tablet 2 tablet ??? simethicone (MYLICON) chewable tablet 80 mg ??? sodium chloride (PF) 0.9% PF flush 3 mL ??? sodium chloride (PF) 0.9% PF flush 3 mL ??? sodium phosphate (FLEET ENEMA) 1 enema ??? Tdap (ddblaxl-tndwgjcqfi-ypkbk pertussis) (ADACEL) injection 0.5 mL ??? tranexamic acid 1 g in 100 mL 0.7% NaCl IV bag (premix) Physical Exam: Vitals were reviewed All vitals stable Temp: 98.2 ??F (36.8 ??C) Temp src: Axillary BP: 96/61 Pulse: 74 Resp: 16 Wound clean and dry with minimal or no drainage. Surrounding skin with minimal erythema. Data: All laboratory data related to this surgery reviewed Hemoglobin Date Value Ref Range Status 09/29/2020 10.7 (L) 11.7 - 15.7 g/dL Final 07/09/2020 12.5 11.7 - 15.7 g/dL Final 07/09/2020 11.8 11.7 - 15.7 g/dL Final 02/20/2020 12.9 11.7 - 15.7 g/dL Final 01/28/2017 13.5 11.7 - 15.7 g/dL Final No imaging studies have been ordered Danial Falcon MD IC POLICY ANALYST documented in this encounter Discharge Instructions Discharge InstructionsLakesiha Mullen RN - 09/30/2020 1:40 PM CST Postop Instructions Make an appointment to be seen in the clinic in 6 weeks. [facility]: [phone] Activity ?? Do not lift more than 10 pounds for 6 weeks after surgery. Ask family and friends for help when you need it. ?? No driving until you have stopped taking your pain medications (usually two weeks after surgery). ?? No heavy exercise or activity for 6 weeks. Don't do anything that will put a strain on your surgery site. ?? Don't strain when using the toilet. Your care team may prescribe a stool softener if you have problems with your bowel movements. To care for your incision: ?? Keep the incision clean and dry. ?? Do not soak your incision in water. No swimming or hot tubs until it has fully healed. You may soak in the bathtub if the water level is below your incision. ?? Do not use peroxide, gel, cream, lotion, or ointment on your incision. ?? Adjust your clothes to avoid pressure on your surgery site (check the elastic in your underwear for example). You may see a small amount of clear or pink drainage and this is normal. Check with your health care provider: ?? If the drainage increases or has an odor. ?? If the incision reddens, you have swelling, or develop a rash. ?? If you have increased pain and the medicine we prescribed doesn't help. ?? If you have a fever above 100.4 F (38 C) with or without chills when placing thermometer under your tongue. The area around your incision (surgery wound), will feel numb. This is normal. The numbness should go away in less than a year. Keep your hands clean: Always wash your hands before touching your incision (surgery wound). This helps reduce your risk ofinfection. If your hands aren't dirty, you may use an alcohol hand-rub to clean your hands. Keep your nails clean and short. Call your healthcare provider if you have any of these symptoms: ?? You soak a sanitary pad with blood within 1 hour, or you see blood clots larger than a golf ball. ?? Bleeding that lasts more than 6 weeks. ?? Vaginal discharge that smells bad. ?? Severe pain, cramping or tenderness in your lower belly area. ?? A need to urinate more frequently (use the toilet more often), more urgently (use the toilet veryquickly), or it bell when you urinate. ?? Nausea and vomiting. ?? Redness, swelling or pain around a vein in your leg. ?? Problems or a red or painful area on your breast. ?? Chest pain and cough or are gasping for air. ?? Problems with coping with sadness, anxiety or depression. If you have concerns about hurting yourself or the baby, call your provider immediately. ?? You have questions or concerns after you return home. IC POLICY ANALYST documented in this encounter Medications at Time of Discharge Medication Sig Dispensed Refills Start Date End Date escitalopram (LEXAPRO) 20 Take 1 tablet (20 90 tablet 1 MG tabletIndications: mg) by mouth daily Generalized anxiety disorder, Bipolar I disorder (H) Vit-Fe Take 1 tablet by 0 Fumarate-FA ( mouth daily MULTIVITAMIN W/IRON) 27-0.8 MG tablet acetaminophen (TYLENOL) Take 2 tablets (650 0 11/05/2020 325 MG tabletIndications: mg) by mouth every 4 Postoperative state hours as needed for mild pain doxylamine (UNISOM) 25 MG Take 25 mg by mouth 0 10/18/2020 TABS tablet At Bedtime ibuprofen (ADVIL/MOTRIN) Take 2 tablets (400 0 11/05/2020 200 MG tabletIndications: mg) by mouth every 4 Postoperative state hours as needed for moderate pain melatonin 1 MG TABS Take 3 mg by mouth 0 11/05/2020 tablet nightly as needed oxyCODONE (ROXICODONE) 5 Take 1 tablet (5 mg) 10 tablet 0 0 09/30/2020 10/18/2020 MG tabletIndications: by mouth every 4 Postoperative state hours as needed for moderate to severe pain documented as of this encounter Progress Notes Danila Falcon MD - 09/30/2020 9:21 AM CST [facility] Obstetrics Post-Op / Progress Note Assessment and Plan: Assessment: Post-operative day #2 Low transverse primary section L&D complications: A 30 year oldmpm-cmdf-fxd at 40w1d weeks estimated gestational age admitted for labor with arrest of dilation, obesity. BMI 44. Doing well. Clean wound without signs of infection. Normal healing wound. No immediate surgical complications identified. No excessive bleeding Pain well-controlled. Pt desires discharge home today Plan: Ambulation encouraged Breast feeding strategies discussed Monitor wound for signs of infection Pain control measures as needed Reportable signs and symptoms dicussed with the patient No lifting > 10 lbs for 6 wks Take your tempature twice daily for 3 days and call if > 100.4 Nothing in vagina for 6 wks Continue taking MVI daily for 1 month Discharge later today Interval History: Doing well. Pain is well-controlled. No fevers. No history of wound drainage, warmth or significant erythema. Good appetite. Denies chest pain, shortness of breath, nausea or vomiting. Ambulatory. well. Significant Problems: Past Medical History: Diagnosis Date ??? Abnormal Pap smear of cervix 09/22/2018, 02/24/20 See problem list ??? Bipolar disorder ??? Cervical high risk HPV (human papillomavirus) test positive 09/22/2018, 02/24/20 See problem list ??? Depression ??? Depressive disorder taking meds ??? Generalized anxiety disorder Review of Systems: The patient denies any chest pain, shortness of breath, excessive pain, fever, chills, purulent drainage from the wound, nausea or vomiting. Medications: All medications related to the patient's surgery have been reviewed Current Facility-Administered Medications Medication ??? acetaminophen (TYLENOL) tablet 975 mg ??? bisacodyl (DULCOLAX) Suppository 10 mg ??? dextrose 5% in lactated ringers infusion ??? escitalopram (LEXAPRO) tablet 20 mg ??? hydrocortisone 2.5 % cream ??? ibuprofen (ADVIL/MOTRIN) tablet 800 mg ??? lactated ringers BOLUS 1,000 mL ??? lanolin cream ??? lidocaine (LMX4) cream ??? lidocaine 1 % 0.1-1 mL ? ? Measles, Mumps & Rubella Vac (MMR) injection 0.5 mL ??? naloxone (NARCAN) injection 0.2 mg Or ??? naloxone (NARCAN) injection 0.4 mg Or ??? naloxone (NARCAN) injection 0.2 mg Or ??? naloxone (NARCAN) injection 0.4 mg ??? NO Rho (D) immune globulin (RhoGam) needed - mother Rh POSITIVE ??? ondansetron (ZOFRAN) injection 4 mg ??? oxyCODONE (ROXICODONE) tablet 5 mg ??? oxytocin (PITOCIN) 30 units in 500 mL 0.9% NaCl infusion ??? oxytocin (PITOCIN) 30 units in 500 mL 0.9% NaCl infusion ??? oxytocin (PITOCIN) injection 10 Units ??? senna-docusate (SENOKOT-S/PERICOLACE) 8.6-50 MG per tablet 1 tablet Or ??? senna-docusate (SENOKOT-S/PERICOLACE) 8.6-50 MG per tablet 2 tablet ??? simethicone (MYLICON) chewable tablet 80 mg ??? sodium chloride (PF) 0.9% PF flush 3 mL ??? sodium chloride (PF) 0.9% PF flush 3 mL ??? sodium phosphate (FLEET ENEMA) 1 enema ??? Tdap (jyxosgz-ifzocdmgbh-qdhcj pertussis) (ADACEL) injection 0.5 mL ??? tranexamic acid 1 g in 100 mL 0.7% NaCl IV bag (premix) Physical Exam: Vitals were reviewed All vitals stable Temp: 98.2 ??F (36.8 ??C) Temp src: Axillary BP: 96/61 Pulse: 74 Resp: 16 Wound clean and dry with minimal or no drainage. Surrounding skin with minimal erythema. Data: All laboratory data related to this surgery reviewed Hemoglobin Date Value Ref Range Status 09/29/2020 10.7 (L) 11.7 - 15.7 g/dL Final 07/09/2020 12.5 11.7 - 15.7 g/dL Final 07/09/2020 11.8 11.7 - 15.7 g/dL Final 02/20/2020 12.9 11.7 - 15.7 g/dL Final 01/28/2017 13.5 11.7 - 15.7 g/dL Final No imaging studies have been ordered Danial Falcon MD IC POLICY ANALYST Dina Germain MD - 09/29/2020 11:45 AM CST September 29, 2020 DAILY NOTE - POSTOP DAY 1 SUBJECTIVE: Up in the chair, doing well overall. Pain controlled? Yes Tolerating a regular diet? YES Ambulating? YES Voiding without difficulty? Yes Lochia? minimal : yes OBJECTIVE: Vitals: 09/29/20 0150 09/29/20 0245 09/29/20 0348 09/29/20 0900 BP: 107/74 104/69 100/69 91/53 Pulse: 78 81 79 91 Resp: 16 Temp: 98.7 ??F (37.1 ??C) TempSrc: Oral SpO2: 95% 98% 97% 98% Weight: Height: Constitutional: healthy, alert and no distress Abdomen: Not examined, due to patient in chair attempting to feed. LE: 1+ edema LABS: Hemoglobin Date Value Ref Range Status 09/29/2020 10.7 (L) 11.7 - 15.7 g/dL Final 07/09/2020 12.5 11.7 - 15.7 g/dL Final No results found for: RUBELLAABIGG Lab Results Component Value Date ABO O 09/28/2020 Lab Results Component Value Date RH Pos 09/28/2020 No components found for: CMP ASSESSMENT: POD #1 Primary LTCS Doing well. No immediate surgical complications identified. No excessive bleeding Pain well-controlled. PLAN: Continue routine care Mild postoperative ABLA, continue prenatals Ambulation encouraged Monitor wound for signs of infection Pain control measures as needed Reportable signs and symptoms dicussed with the patient Anticipate discharge in 1-2 days Dina Germain MD Soledad Escobar CNM - 09/28/2020 6:48 PM CST [facility] PROGRESS NOTE SUBJECTIVE: Rena is comfortable with epidural, feels some more intermittent pressure OBJECTIVE: BP 129/80 Temp 98.6 ??F (37 ??C) (Oral) Resp 16 Ht 1.6 m (5' 3) Wt 112.9 kg (249lb) LMP 12/22/2019 SpO2 96% BMI 44.11 kg/m?? heart tones: Baseline 110 Variability: moderate Accelerations: present Decelerations: present, occasional non-significant variable decelerations Contractions: Pt is nelson every 2-3 minutes, lasting 60 seconds and palpates strong Contractions have been adequate via MVUs Cervix: 9/ 100% / -1, Vtx, cervix more prominent on left side ROM: clear fluid, bloody show Pitocin- 6 mu/min. Antibiotics- none Cervical ripening: N/A ASSESSMENT: IUP @ 40w1d minimal/no progress GBS- negative FHR category I overall, periods of category II PLAN: We discussed that her cervical exam has been unchanged for 4 hours, despite adequate contractions via MVUs which meets criteria for failure to progress. Consulted with Dr. Gregg to discuss option of delivery Pt and partner are on board with this plan of care. Britney Jones CNM 09/28/2020 6:55 PM IC POLICY ANALYST Soledad Jones CNM - 09/28/2020 4:34 PM CST [facility] PROGRESS NOTE SUBJECTIVE: Comfortable with pressure, feeling occasional pressure OBJECTIVE: BP 118/64 Temp 98.4 ??F (36.9 ??C) (Oral) Resp 16 Ht 1.6 m (5' 3) Wt 112.9 kg (249 lb) LMP 12/22/2019 SpO2 95% BMI 44.11 kg/m?? heart tones: Baseline 110 Variability: moderate Accelerations: present Decelerations: present, occasional non-significant variable decelerations Contractions: Pt is nelson every 2 minutes, lasting 60 seconds and palpates strong Cervix: 9/ 100% / -1, Vtx ROM: clear fluid Pitocin- 4 mu/min. Antibiotics- none Cervical ripening: N/A ASSESSMENT: IUP @ 40w1d active labor FHR category II, overall reassuring for moderate variability, and spontaneous accelerations GBS- negative PLAN: Continue to titrate pitocin per protocol Reassess in 2 hours or prn HReno Jones CNM 09/28/2020 4:36 PM Soledad Escobar CNM - 09/28/2020 12:51 PM CST [facility] PROGRESS NOTE SUBJECTIVE: Rena is comfortable with epidural. Contractions have spaced out significantly following epidural placement and fluid bolus. We discussed that although she is 5cm, she is likely still inearly labor, and as her contractions have now spaced out, she could have the option to go home and await more active labor if cervical exam is unchanged. Also discussed option to augment labor with pitocin/AROM. She elects augmentation. R/B/A to AROM and pitocin were discussed. We also discussed placement of an IUPC to more adequately monitor contractions and titrate pitocin appropriately. OBJECTIVE: BP 130/88 Temp 98.1 ??F (36.7 ??C) Resp 16 Ht 1.6 m (5' 3) Wt 112.9 kg (249 lb) LMP 12/22/2019 SpO2 96% BMI 44.11 kg/m?? heart tones: Baseline 110 Variability: moderate Accelerations: present Decelerations: absent Contractions: Pt is nelson in an irregular pattern, contractions have spaced Cervix: 5.5/ 70% / -2, Vtx ROM: AROM for moderate amount of clear fluid. IUPC placed Pitocin- none Antibiotics- none Cervical ripening: N/A ASSESSMENT: IUP @ 40w1d early labor GBS- negative FHR Category I PLAN: Review contraction pattern with IUPC and start pitocin as needed to achieve adequate contractions Reassess in 2-4 hours or PRN H. Octavia Jones CNM 09/28/2020 2:12 PM IC POLICY ANALYST Soledad Jones CNM - 09/28/2020 10:48 AM CST [facility] PROGRESS NOTE SUBJECTIVE: Rena is comfortable with epidural OBJECTIVE: BP 103/56 Temp 98.1 ??F (36.7 ??C) Resp 16 Ht 1.6 m (5' 3) Wt 112.9 kg (249 lb) LMP 12/22/2019 SpO2 96% BMI 44.11 kg/m?? heart tones: Baseline 115 Variability: moderae Accelerations: present Decelerations: absent Contractions: Pt is nelson every 3-5 minutes, lasting 60 second, contractions have spaced out somewhat since epidural placement Cervix: 5.5/ 70% / -2, Vtx ROM: not ruptured Pitocin- none Antibiotics- none Cervical ripening: N/A ASSESSMENT: IUP @ 40w1d early labor GBS- negative FHR category I Excess weight gain Obesity, prepregnancy BMI 38 PLAN: Will continue to monitor for next 2 hours, if contractions space, discussed augmentation with pitocin/AROM which Rena is open to Reassess short interval Soledad Jones CNM IC POLICY ANALYST documented in this encounter H&P Notes Wendy Gregg DO - 09/28/2020 7:18 PM CST [facility] Labor and Delivery Consultation note Rena Resendiz Age: [age] year old Date of : 1990 Date of Admission: 09/28/2020 Primary care provider: Blank Lemos Chief Complaint: Rena Resendiz is a 30 year old female who is @ 40w1d in labor with arrest of dilation. I am asked to consult regarding section. history: OBSTETRIC HISTORY: OB History Para Term AB Living 1 0 0 0 0 0 SAB TAB Ectopic Multiple Live Births 0 0 0 0 0 # Outcome Date GA Lbr Luis Alfredo/2nd Weight Sex Delivery Anes PTL Lv 1 Current EDC: Estimated Date of Delivery: Sep 27, 2020 Labs: Lab Results Component Value Date ABO O 09/28/2020 RH Pos 09/28/2020 Neg 09/28/2020 HEPBANG Nonreactive 02/20/2020 CHPCRT Negative 02/24/2020 GCPCRT Negative 02/24/2020 HGB 12.5 07/09/2020 GBS Status: Lab Results Component Value Date GBS Negative 09/03/2020 Active Problem List Patient Active Problem List Diagnosis ??? Generalized anxiety disorder ??? Bipolar affective disorder (H) ??? Insomnia ??? Migraine without aura and without status migrainosus, not intractable ??? BMI 38.0-38.9,adult ??? ASCUS with positive high risk HPV cervical ??? Moderate episode of recurrent major depressive disorder (H) ??? Anxiety during in second trimester, antepartum ??? Acne ??? Seasonal allergies ??? High-risk , third trimester ??? At risk for venous thromboembolism (VTE) ??? Elevated blood pressure affecting in third trimester, antepartum ??? Uterine size-date discrepancy in third trimester ??? Excessive weight gain affecting ??? Indication for care in labor or delivery Medication Prior to Admission Medications Prior to Admission Medication Sig Dispense Refill Last Dose ??? doxylamine (UNISOM) 25 MG TABS tablet Take 25 mg by mouth At Bedtime 09/27/2020 at Unknown time ??? escitalopram (LEXAPRO) 20 MG tablet Take 1 tablet (20 mg) by mouth daily 90 tablet 1 09/27/2020 at Unknown time ??? melatonin 1 MG TABS tablet Take 3 mg by mouth nightly as needed 09/27/2020 at Unknown time ??? Vit-Fe Fumarate-FA ( MULTIVITAMIN W/IRON) 27-0.8 MG tablet Take 1 tablet by mouth daily 09/27/2020 at Unknown time ??? Pyridoxine HCl (B-6 PO) 09/27/2020 at Unknown time ??? Vitamin D, Cholecalciferol, 25 MCG (1000 UT) TABS Take 2,000 Int'l Units by mouth daily 09/27/2020 at Unknown time . Maternal Past Medical History: Past Medical History: Diagnosis Date ??? Abnormal Pap smear of cervix 09/22/2018, 02/24/20 See problem list ??? Bipolar disorder ??? Cervical high risk HPV (human papillomavirus) test positive 09/22/2018, 02/24/20 See problem list ??? Depression ??? Depressive disorder taking meds ??? Generalized anxiety disorder Family History: This patient has no significant family history Social History: This patient has no significant social history Review of Systems: CONSTITUTIONAL: NEGATIVE for fever, chills, change in weight INTEGUMENTARY/SKIN: NEGATIVE for worrisome rashes, moles or lesions EYES: NEGATIVE for vision changes or irritation ENT/MOUTH: NEGATIVE for ear, mouth and throat problems RESP: NEGATIVE for significant cough or SOB BREAST: NEGATIVE for masses, tenderness or discharge CV: NEGATIVE for chest pain, palpitations or peripheral edema GI: NEGATIVE for nausea, abdominal pain, heartburn, or change in bowel habits : NEGATIVE for frequency, dysuria, or hematuria MUSCULOSKELETAL: NEGATIVE for significant arthralgias or myalgia NEURO: NEGATIVE for weakness, dizziness or paresthesias ENDOCRINE: NEGATIVE for temperature intolerance, skin/hair changes HEME: NEGATIVE for bleeding problems PSYCHIATRIC: NEGATIVE for changes in mood or affect Physical Exam: Vitals were reviewed All vitals stable Patient Vitals for the past 12 hrs: BP Temp Temp src Resp SpO2 Height Weight 09/28/20 1809 -- -- -- -- 96 % -- -- 09/28/20 1804 -- -- -- -- 95 % -- -- 09/28/20 1759 -- 98.6 ??F (37 ??C) Oral -- -- -- -- 09/28/20 1747 129/80 -- -- -- -- -- -- 09/28/20 1734 -- -- -- -- 96 % -- -- 09/28/20 1729 -- -- -- -- 95 % -- -- 09/28/20 1724 -- -- -- -- 95 % -- -- 09/28/20 1719 -- -- -- -- 95 % -- -- 09/28/20 1717 112/61 -- -- -- -- -- -- 09/28/20 1700 -- -- -- -- 94 % -- -- 09/28/20 1659 -- -- -- -- 94 % -- -- 09/28/20 1654 -- -- -- -- 96 % -- -- 09/28/20 1649 -- -- -- -- 95 % -- -- 09/28/20 1648 106/64 -- -- -- -- -- -- 09/28/20 1624 -- -- -- -- 95 % -- -- 09/28/20 1619 -- -- -- -- 95 % -- -- 09/28/20 1618 118/64 98.4 ??F (36.9 ??C) Oral 16 -- -- -- 09/28/20 1614 -- -- -- -- 96 % -- -- 09/28/20 1549 -- -- -- -- 96 % -- -- 09/28/20 1548 118/72 -- -- -- 94 % -- -- 09/28/20 1544 -- -- -- -- 96 % -- -- 09/28/20 1539 -- -- -- -- 96 % -- -- 09/28/20 1534 -- -- -- -- 96 % -- -- 09/28/20 1529 -- -- -- -- 96 % -- -- 09/28/20 1524 -- -- -- -- 97 % -- -- 09/28/20 1519 -- -- -- -- 96 % -- -- 09/28/20 1517 127/69 -- -- -- -- -- -- 09/28/20 1504 -- -- -- -- 97 % -- -- 09/28/20 1459 -- -- -- -- 97 % -- -- 09/28/20 1454 -- -- -- -- 98 % -- -- 09/28/20 1449 -- -- -- -- 98 % -- -- 09/28/20 1447 125/80 -- -- -- -- -- -- 09/28/20 1444 -- -- -- -- 97 % -- -- 09/28/20 1419 -- -- -- -- 94 % -- -- 09/28/20 1415 107/57 98.2 ??F (36.8 ??C) Oral 16 96 % -- -- 09/28/20 1409 -- -- -- -- 95 % -- -- 09/28/20 1349 -- -- -- -- 97 % -- -- 09/28/20 1348 104/60 -- -- -- -- -- -- 09/28/20 1344 -- -- -- -- 98 % -- -- 09/28/20 1329 -- -- -- -- 97 % -- -- 09/28/20 1324 -- -- -- -- 98 % -- -- 09/28/20 1319 -- -- -- -- 97 % -- -- 09/28/20 1317 99/59 98.2 ??F (36.8 ??C) Oral -- -- -- -- 09/28/20 1315 -- -- -- -- 98 % -- -- 09/28/20 1314 -- -- -- -- 98 % -- -- 09/28/20 1309 -- -- -- -- 100 % -- -- 09/28/20 1304 -- -- -- -- 99 % -- -- 09/28/20 1259 -- -- -- -- 99 % -- -- 09/28/20 1254 -- -- -- -- 99 % -- -- 09/28/20 1249 -- -- -- -- 98 % -- -- 09/28/20 1247 129/88 -- -- -- -- -- -- 09/28/20 1244 -- -- -- -- 100 % -- -- 09/28/20 1239 -- -- -- -- 99 % -- -- 09/28/20 1234 -- -- -- -- 99 % -- -- 09/28/20 1229 -- -- -- -- 98 % -- -- 09/28/20 1224 -- -- -- -- 97 % -- -- 09/28/20 1219 -- -- -- -- 97 % -- -- 09/28/20 1218 124/74 -- -- -- -- -- -- 09/28/20 1214 -- -- -- -- 97 % -- -- 09/28/20 1200 130/88 -- -- -- 96 % -- -- 09/28/20 1154 -- -- -- -- 97 % -- -- 09/28/20 1149 -- -- -- -- 97 % -- -- 09/28/20 1147 108/57 -- -- -- -- -- -- 09/28/20 1104 -- -- -- -- 97 % -- -- 09/28/20 1100 -- -- -- -- 97 % -- -- 09/28/20 1054 -- -- -- -- 95 % -- -- 09/28/20 1046 119/65 -- -- -- 97 % -- -- 09/28/20 1041 95/56 -- -- -- 96 % -- -- 09/28/20 1038 95/55 -- -- -- -- -- -- 09/28/20 1036 -- -- -- -- 98 % -- -- 09/28/20 1031 99/56 -- -- -- 97 % -- -- 09/28/20 1030 99/56 -- -- -- 97 % -- -- 09/28/20 1027 99/58 -- -- -- -- -- -- 09/28/20 1021 103/56 -- -- -- 96 % -- -- 09/28/20 1016 106/56 -- -- -- 97 % -- -- 09/28/20 1013 107/58 -- -- -- -- -- -- 09/28/20 1007 101/55 -- -- -- -- -- -- 09/28/20 1005 103/58 -- -- -- -- -- -- 09/28/20 1003 100/58 -- -- -- -- -- -- 09/28/20 1001 102/58 -- -- -- -- -- -- 09/28/20 0959 112/64 -- -- -- -- -- -- 09/28/20 0957 115/63 -- -- -- -- -- -- 09/28/20 0852 -- 98.1 ??F (36.7 ??C) -- 16 -- 1.6 m (5' 3) 112.9 kg (249 lb) 09/28/20 0801 123/83 -- -- -- -- -- -- Constitutional: Awake, alert, cooperative, no apparent distress, and appears stated age. Eyes: Lids and lashes normal, pupils equal, round and reactive to light, extra ocular muscles intact, sclera clear, conjunctiva normal. ENT: Normocephalic, without obvious abnormality, atramatic, sinuses nontender on palpation, externalears without lesions, oral pharynx with moist mucus membranes, tonsils without erythema or exudates,gums normal and good dentition. Neck: Supple, symmetrical, trachea midline, no adenopathy, thyroid symmetric, not enlarged and no tenderness, skin normal. Hematologic / Lymphatic: No cervical lymphadenopathy and no supraclavicular lymphadenopathy. Back: Symmetric, no curvature, spinous processes are non-tender on palpation, paraspinous muscles are non-tender on palpation, no costal vertebral tenderness. Lungs: No increased work of breathing, good air exchange, clear to auscultation bilaterally, no crackles or wheezing. Cardiovascular: Regular rate and rhythm, normal S1 and S2, no S3 or S4, and no murmur noted. Chest / Breast: Breasts symmetrical, skin without lesion(s), no nipple retraction or dimpling, no nipple discharge, no masses palpated, no axillary or supraclavicular adenopathy. Abdomen: No scars, normal bowel sounds, soft, non-distended, non-tender, no masses palpated, no hepatosplenomegally. Genitourinary: No urethral discharge, normal external genitalia, no hernia. Musculoskeletal: No redness, warmth, or swelling of the joints. Full range of motion noted. Motor strength is 5 out of 5 all extremities bilaterally. Tone is normal. Neurologic: Awake, alert, oriented to name, place and time. Cranial nerves II- XII are grossly intact. Motor is 5 out of 5 bilaterally. Cerebellar finger to nose, heel to hammonds intact. Sensory is intact.Babinski down going, Romberg negative, and gait is normal. Neuropsychiatric: Normal affect, mood, orientation, memory and insight. Skin: No rashes, erythema, pallor, petechia or purpura. Cervix: Membranes: SROM Dilation: 9.5 Effacement: 100% Station:-1 Consistency: soft Position: Anterior Presentation:Cephalic Heart Rate Tracing: Tier 1 (normal) Tocometer: frequency q 2-[address]. Assessment: Rena Resendiz is a 30 year old female who is @ 40w1d in labor with arrest of dilation. I am asked to consult regarding section. Discussed risks, benefits, alternatives and recommendation for delivery via section due to arrest of dilation, she has been 9.5 cm for 4 hours, with documented adequate labor. She desires delivery and consent is signed. Plan: Admit - see IP orders Prepare for section. Wendy Gregg DO IC POLICY ANALYST Soledad Jones CNM - 09/28/2020 9:09 AM CST [facility] Labor Admission History & Physical Rena Resendiz is a 30 year old with an IUP at 40w1d ; , Partner/support Person: Micah Language Barrier: [place] Clinic: [facility] Provider: Robert Rena Resendiz is admitted to the [facility] at [facility] on 09/28/2020 at 9:09 AM History of present inllness/Chief Complaint: Here with: spontaneous onset of labor Patient reports contractions are Regular every 2 minutes Baby active Yes Membranes are intact. Bloody show No Any changes with medical history since last visit No Obstetrical history Estimated Date of Delivery: Sep 27, 2020 determined by LMP c/w first trimester ultrasound Patient's last menstrual period was 12/22/2019. Dating U/S: 02/19/21 anatomic survey: Referred for Level II with MFM to evaluate views not seen, level II was normal Placenta: posterior COURSE care began at 9w1d wks gestation for a total of 11 visits. Total wt gain 33lbs; Body mass index is 44.11 kg/m??. Blood Pressure: WNL during visits, had one elevated BP in ER of 152/94 while beingevaluated for palpitations/SOB and anxiety course was complicated by obesity, excess weight gain Tdap: given Rhogam: n/a Patient Active Problem List Diagnosis ??? Generalized anxiety disorder ??? Bipolar affective disorder (H) ??? Insomnia ??? Migraine without aura and without status migrainosus, not intractable ??? BMI 38.0-38.9,adult ??? ASCUS with positive high risk HPV cervical ??? Moderate episode of recurrent major depressive disorder (H) ??? Anxiety during in second trimester, antepartum ??? Acne ??? Seasonal allergies ??? High-risk , third trimester ??? At risk for venous thromboembolism (VTE) ??? Elevated blood pressure affecting in third trimester, antepartum ??? Uterine size-date discrepancy in third trimester ??? Excessive weight gain affecting ??? Indication for care in labor or delivery HISTORY Allergies Allergen Reactions ??? Doxycycline Other (See Comments) and Nausea and Vomiting Past Medical History: Diagnosis Date ??? Abnormal Pap smear of cervix 09/22/2018, 02/24/20 See problem list ??? Bipolar disorder ??? Cervical high risk HPV (human papillomavirus) test positive 09/22/2018, 02/24/20 See problem list ??? Depression ??? Depressive disorder taking meds ??? Generalized anxiety disorder Past Surgical History: Procedure Laterality Date ??? LAPAROTOMY EXPLORATORY 2010 Operation for c/f endometriosis. None found, no interventions. Pt thinks this happened [id number] ??? TONSILLECTOMY Family History Problem Relation Age of Onset ??? Thyroid Disease Mother ??? Breast Cancer Maternal Grandmother ??? Breast Cancer Maternal Grandfather ??? Diabetes No family hx of Social History Tobacco Use ??? Smoking status: Former Smoker Packs/day: 0.25 Years: 8.00 Pack years: 2.00 Types: Cigarettes Quit date: 06/24/2019 Years since quittin.2 ??? Smokeless tobacco: Never Used Substance Use Topics ??? Alcohol use: No Alcohol/week: 0.0 standard drinks OB History Para Term AB Living 1 0 0 0 0 0 SAB TAB Ectopic Multiple Live Births 0 0 0 0 0 # Outcome Date GA Lbr Luis Alfredo/2nd Weight Sex Delivery Anes PTL Lv 1 Current LABS: Lab Results Component Value Date ABO O 02/20/2020 RH Pos 02/20/2020 Neg 02/20/2020 HGB 12.5 07/09/2020 HEPBANG Nonreactive 02/20/2020 CHPCRT Negative 02/24/2020 GCPCRT Negative 02/24/2020 GBS Status: Lab Results Component Value Date GBS Negative 09/03/2020 Rubella: Immune HIV: Non-Reactive Platelets: 350 1hr GCT: 105 ROS Pt is alert and oriented Pt denies significant constitutional symptoms including fever and/or malaise. Pt denies significant respiratory, cardiovacular, GI, or muscular/skeletal complaints. Neuro: Denies HARPER and visual changes Muscoloskeletal: Denies except for discomforts r/t PHYSICAL EXAM: Temp 98.1 ??F (36.7 ??C) Resp 16 Ht 1.6 m (5' 3) Wt 112.9 kg (249 lb) LMP 12/22/2019 BMI 44.11 kg/m?? General appearance: healthy, alert and active Heart: RRR Lungs: CTA bilaterally, normal respiratory effort Abdomen: gravid, single vertex fetus, non-tender, EFW 7.5 lbs. Legs: reflexes 2+ bilaterally, no clonus, no edema Contractions: Pt is nelson every 2 minutes, lasting 60 seconds and palpates strong heart tones: Baseline 120 Variability: moderate Accelerations: present Decelerations: absent NST: reactive Cervix: 5.5/ 80%/ -2, Vtx per RN exam Bloody show: no Membranes: intact ASSESSMENT: 30 year old with kolb IUP 40w1d in early labor NST reactive GBS negative and membranes intact Excess weight gain Obesity, prepregnancy BMI 38 PLAN: Routine CNM care Labs ordered: Hemoglobin and type and screen Teaching done r/t comfort measures, pain management options, and labor processes Admit - see IP orders Britney Jones CNM 09/28/2020 9:23 AM IC POLICY ANALYST documented in this encounter Miscellaneous Notes Plan of Care - Lakeshia Mullen RN - 09/30/2020 2:41 PM CST Discharge instructions reviewed with patient and . Understanding verbalized. Will discharge to home with and baby. IC POLICY ANALYST Plan of Care - Lakeshia Mullen RN - 09/30/2020 2:36 PM CST Data: Vital signs within normal limits. checks within normal limits - see flow record. Patient eating and drinking normally. Patient able to empty bladder independently and is up ambulating.No apparent signs of infection. Incision healing well. Patient performing self cares and is able to care for . Action: Patient medicated during the shift for pain and cramping. See MAR. Patient reassessed within1 hour after each medication and pain was improved - patient stated she was comfortable. Patient education done about infant and self cares and discharge instructions. See flow record. Response: Positive attachment behaviors observed with . Support persons present. Plan: Anticipate discharge today. IC POLICY ANALYST Plan of Care - Karol Hayden RN - 09/30/2020 2:52 AM CST Pt meeting expected goals for shift. Positive attachment behaviors noted with . Pain managed with scheduled meds - See MAR. Support person Micah at bedside and attentive to pt needs. pt encouraged to complete discharge paperwork/videos. Will continue to monitor and adjust plan as needed. IC POLICY ANALYST Note - Elisabeth Shi RN - 09/29/2020 8:40 PM CST in to see patient. Baby at breast. Does pull back and unlatches herself. Nursing in football hold. Added extra pillows to raise baby up to get a better latch. Few swallows heard, even with breast compressions while baby nursing. Unable to see any colostrum with hand expression. Baby not 24 hours yet. Encouraged frequent feeds. Educated on supply and demand, and less than 24hour infant behaviors. Has shield at bedside that she uses if needed. Encouraged patientto try first without, if baby fussy apply shield and retry. All other questions answered. Encouraged to call for assistance. IC POLICY ANALYST Plan of Care - Kathleen Wright RN - 09/29/2020 7:59 PM CST Pt up ambulating independently. Voiding without difficulty. Incision covered . Reports adequate paincontrol with current pain plan. Family present and supportive. Meeting expected goals. Mother attentive to infants needs. , using nipple shield. IC POLICY ANALYST Plan of Care - Maria Del Rosario Steven RN - 09/29/2020 1:37 PM CST Pt doing well today. VSS. FF/1. Tolerating a regular diet. Up to BR with assist x1 today. Harrington catheter removed. Pt saline locked. Encouraged patient to drink plenty of water today. Bonding well with . infant with a nipple shield. Taking ibuprofen, tylenol and oxycodone for pain. Micah present and supportive today. Maria Del Rosario Steven RN IC POLICY ANALYST Plan of Care - Kathleen Hurley RN - 09/29/2020 6:37 AM CST Has not been able to sleep much related to baby wanting to be held. Has been able to rest eyes. Reporting pain less then a 2 and has received scheduled Tylenol and Toradol this shift. Incision had a small amount of drainage on transfer that has not increased this shift. Tolerating regular, gluten free diet. FOB here and supportive. IC POLICY ANALYST L&D Delivery Note - Wendy Gregg DO - 09/29/2020 6:34 AM CST OB Delivery Note Rena Resendiz Age: [age] year old Date of : 1990 GA: 40w1d GP: Labor Complications: None EBL: mL Delivery QBL: Delivery Type: , Low Transverse ROM to Delivery Time: (Delivered) Hours: 7 Minutes: 24 1 Minute 5 Minute 10 Minute Totals: 5 8 Personel Present: WENDY GRGEG Details Pre-Op Diagnosis: 1. Intrauterine at 40w1d 2. Arrest of dilation 3. Obesity Post-Op Diagnosis: 1. SAME Indications: Procedure: , Low Transverse via incision Anesthesia: Epidural;Spinal Informed Consent: The risks, benefits, complications, and alternatives were discussed with the patient. The patient understood that the risks of section include, but are not limited to: injury to nearby structures or organs, infection, blood loss and possible need for transfusion, and potential need for more surgery including hysterectomy. The patient stated understanding and desired to proceed. All questionswere answered. The site of surgery was properly noted and marked. The patient was identified as Rena Resendiz and the procedure verified as a C- section delivery. A Time Out was held and the aboveinformation confirmed. Procedure Details: See operative note Paris Resendiz-Rena [[id number]] Labor Event Times Labor onset date: 09/28/20 Onset time: 5:30 AM Decision date/time (emergent ): 09/28/2020 1850 Labor Length 3rd Stage (hrs): 0 (min): 0 Labor Events labor?: No Labor Type: Spontaneous Predominate monitoring during 1st stage: continuous electronic monitoring Antibiotics received during labor?: No Rupture date/time: 09/28/20 1245 Rupture type: Artificial Rupture of Membranes Fluid color: Clear Fluid odor: Normal 1:1 continuous labor support provided by?: enrobing machine corder/Placenta Date and Time Delivery Date: 09/28/20 Delivery Time: 8:09 PM Placenta Date/Time: 09/28/2020 8:10 PM Vaginal Counts Paron Suture Paron Sponges Instruments Initial counts Added to count Final counts Placed during labor Accounted for at the end of labor Yes Yes Apgars Living status: Living 1 Minute 5 Minute 10 Minute 15 Minute 20 Minute Skin color: 0 2 Heart rate: 2 2 Reflex irritability: 0 1 Muscle tone: 1 1 Respiratory effort: 2 2 Total: 5 8 Apgars assigned by: Yvon ROGERS Cord Vessels: 3 Vessels Complications: Nuchal Gases Sent?: Yes Resuscitation Methods: None [place] Measurements Weight: 7 lb 15 oz Length: 1' 9 Head circumference: 34.3 cm Skin to Skin and Feeding Plan Skin to skin initiation date/time: 08/11/1840 Skin to skin with: Mother Skin to skin end date/time: initiated date/time: 09/28/2020 2115 How do you plan to feed your baby: Labor Events and Shoulder Dystocia Tracing Prior to Delivery: Category 1 Shoulder dystocia present?: Neg Delivery (Maternal) (Provider to Complete) ([id number]) Episiotomy: None Perineal lacerations: None Blood Loss Mother: Rena Resendiz #[id number] Start of Mother's Information IO Blood Loss 09/28/20 0530 - 09/29/20 0634 None End of Mother's Information Mother: Rena Resendiz #[id number] Delivery - Provider to Complete ([id number]) Delivering clinician: Wendy Gregg DO CNM Care: Exclusive CNM care in labor Delivery Type (Choose the 1 that will go to the History): , Low Transverse Specifics: Primary nulliparius Indications for Primary: Arrest of Dilatation Other personnel: Provider Role Wendy Gregg DO Assigned OBGYN Provider Placenta Delayed Cord Clamping: Done Date/Time: 09/28/2020 8:10 PM Removal: Spontaneous Disposition: Pathology Anesthesia Method: Epidural, Spinal Cervical dilation at placement: 4-7 Analgesic: HISTORY: ANALGESIC FENTANYL (OPIOID AGONISTS) Presentation and Position Presentation: Vertex Position: Left Occiput Anterior Wendy Gregg DO IC POLICY ANALYST Plan of Care - Maricruz Rogers RN - 09/28/2020 11:48 PM CST Data: [facility] Baby transferred via parent's arms. Action: Receiving unit notified of transfer: Yes. Patient and family notified of room change. Reportgiven to Kathleen TOLLIVER at 2330. Belongings sent to receiving unit. Accompanied by Registered Nurse. Oriented patient to surroundings. Call light within reach. ID bands double-checked with receiving RN. Response: Patient tolerated transfer and is stable. IC POLICY ANALYST Op Note - Wendy Gregg DO - 09/28/2020 8:53 PM CST PREOPERATIVE DIAGNOSIS: A 30 year oldtay-mmjc-koc at 40w1d weeks estimated gestational age admitted for labor with arrest of dilation, obesity. POSTOPERATIVE DIAGNOSES: A 30 year oldfye-smyo-xun at 40w1d weeks estimated gestational age admitted for labor with arrest of dilation, obesity. PROCEDURE: 1. Primary low transverse section. 2. Seprafilm placement for adhesiolysis. COMPLICATIONS: None apparent at time of procedure. ESTIMATED BLOOD LOSS: 400 mL. SURGEON: Wendy Gregg DO. INDICATIONS: A 30 year oldndm-dugh-bjc at 40w1d weeks estimated gestational age admitted for labor with arrest of dilation, obesity. BMI 44. Patient signed consent for primary section, risks benefits, alternatives are discussed withthe patient. OUTCOME: female 7# 15 oz apgars 5 at 1 minute and 8 at 5 minutes. Findings: Normal uterus, tubes and ovaries. DETAILS OF PROCEDURE: After informed consent was signed, the patient was placed in dorsal supine position, epidural in place for anesthesia. heart tones were obtained and found to be in 150s. Thepatient was prepped and draped in normal sterile fashion and a time out was performed. Pre-operativeantibiotics were given. Adequate anesthesia was reported per patient after the epidural was dosed toa surgical level. A pfannensteil incision was then carried down to the underlying fascia and incisedin the midline. The fascia is dissected off the rectus muscles superiorly and inferiorly. Blunt/sharp dissection of the peritoneum was performed and blunt stretching of the muscles was perfomed. The uterus was visualized. An noni retractor is placed. The peritoneum was visualized. The lower uterine segment was incised with a scalpel. Blunt stretching was performed and the baby was delivered atraumatically with vacuum assistance, after removing the noni retractor and extending the skin incision and doing a maylard incision on the left abdominal muscle. . The nose and mouth were bulb suctioned. The cord was clamped and cut after 1 minute. Infant was taken over to the waiting staff. The noni retractor was replaced. The placenta spontaneously delivered. The uterus was cleared of all clots and debris. The placenta was examined and found to be complete. The lower uterine segment was reapproximated with 0 Monocryl in a running locked fashion. A second layer of the same suture was used for imbrication. The bladder flap was recreated using 3-0 Monocryl. A figure of 8 suture is placed on the midline hysterotomy for additional hemostasis. The noni retractor is removed. Irrigation was performed. Seprafilm was placed over the bladder flap. Hemostasis was noted. The peritoneum was closed with 3-0 monocryl. The rectus muscles were repaired in the left maylard incision and then reapproximated in the midline and closed with several horizontal mattress sutures of 3-0 monocryl Hemostasis wasassured with Bovie cautery on the rectus muscles, and Seprafilm was placed over it. The fascia was reapproximated with 0 looped PDS in a running fashion with good reapproximation. A subcuticular stitchusing 4-0 Monocryl was used to reapproximate the skin. Steri-Strips, telfa, and tegaderm was applied. The patient tolerated the procedure well. Sponge, lap and needle counts were correct x2. WENDY GREGG DO IC POLICY ANALYST Plan of Care - Maria Del Rosario Steven RN - 09/28/2020 9:19 AM CST 0735: , 40w1d, here for rule out labor. Pt states she has been nelson every 2-2.5 min [id number] this morning. EUM and EFM placed. Admission exam and database collected. SVE done,. SVE 5.5//-2. YARELI Dudley notified of patients SVE and arrival. Orders to make patient inpatient. Orders for epidural and/or fentanyl for pain. Covid swab collected and sent to lab. 0900: Dr. Kimble here to place IV. 18G IV placed in left wrist. Fentanyl 100mcg given to patient forpain. LR bolus started for epidural preparation. 09: YARELI Dudley here to see pt. 0930: Dr. Kimble here to place epidural. 1000: Pt comfortable with epidural. Will continue to monitor. 1245: YARELI Dudley here to evaluate pt. SVE done by Octavia. SVE 5.5/80/-2. AROM with clear fluid. IUPC placed. Orders to start pitocin if needed. 1445: Pt feeling a sharp pain in her RUQ. SVE done. SVE 9/90/-2. Encouraged pt to push her epidural bolus button. Will reevaluate patients pain at 1500. 1500: Pt states RUQ pain is gone. YARELI Dudley notified of patients SVE. Will continue to monitor. 162: YARELI Dudley here. SVE done. SVE 9/100/-1. Orders to recheck SVE again in 2 hours unless otherwise indicated. 183: SVE by YARELI Dudley. SVE 9/100/-1. Octavia to consult with Dr. Gregg to determine plan of care. 184: Dr. Gregg here. SVE done by Dr. Gregg. SVE 9.5/100/-1. Plan for c- section for failure to progress. Maria Del Rosario Steven RN IC POLICY ANALYST documented in this encounter Plan of Treatment Scheduled Orders Name Type Priority Associated Diagnoses Order S chedule See Providers Orders Lab Routine Release Upon Ordering for 1 Occurrences sta rting 09/28/2020 documented as of this encounter Procedures Procedure Name Priority Date/Time Associated Comments Diagnosis HEMOGLOBIN Routine 09/29/2020 7:02 AM Indication for care Re sults for this PUBLIC POLICY ANALYST in labor or procedure are i n delivery the results section. PLACENTA PATH ORDER Routine 09/28/2020 8:13 PM Re sults for this AND INDICATIONS PUBLIC POLICY ANALYST procedure ar e in the results section. SECTION 09/28/2020 7:48 PM Failure to progres s PUBLIC POLICY ANALYST in labor TREPONEMA ABS W STAT 09/28/2020 9:23 AM Result s for this REFLEX TO RPR AND PUBLIC POLICY ANALYST procedure are in TITER the results section. ABO/RH TYPE AND STAT 09/28/2020 9:23 AM Result s for this SCREEN PUBLIC POLICY ANALYST procedure are i n the results section. SARS-COV-2 (COVID-19) STAT 09/28/2020 8:40 AM Results for this VIRUS RT-PCR PUBLIC POLICY ANALYST procedure are i n the results section. documented in this encounter Results (ABNORMAL) Hemoglobin (09/29/2020 7:02 AM PUBLIC POLICY ANALYST) athologist Signature Hemoglobin 10.7 (L) 11.7 - 15.7 09/29/2020 [place] g/dL 7:42 AM [facility] Specimen Anatomical Collection Method Collection Time Receive d Time (Source) Location / / Volume Laterality Blood specimen 09/29/2020 7:02 AM 021 7:03 (specimen) PUBLIC POLICY ANALYST AM PUBLIC POLICY ANALYST Wendy Gregg DO LAB - BLOOD ORDERABLES Performing Organization Address City/State/ZIP Code Phon e Number [place] [address] [phone] [place] [address] [phone] Placenta Path Order and Indications (PLACENTA) (09/28/2020 8:13 PM PUBLIC POLICY ANALYST) Component Value Ref Test Analysis Performed At [facility] Method Time Signature Copath Patient Name: RENA RESENDIZ Report MR#: [id number] Specimen #: [id number] Collected: 09/28/2020 Received: 10/01/2020 Reported: 10/02/2020 12:04 Ordering Phy(s): SOLEDAD JONES For improved result formatting, select 'View Enhanced Report Format' under Linked Documents section. SPECIMEN(S): Placenta FINAL DIAGNOSIS: Placenta, delivery - Third trimester mature placenta ( disc weight of 661 g) - Membranes with mild meconium staining and without chorioam nionitis - Three vessel umbilical cord without funisitis. Electronically signed out by: Lizbet Motley M.D. CLINICAL HISTORY: Arrest of dilation. GROSS: The specimen is received in formalin, labeled with the patie nt's name and date of , and designated placenta. Type: Kolb CORD Dimensions: 24.1 x 1.2 cm Number of vessels: 3 Insertion: Paracentral MEMBRANES Condition: Disrupted Color: Johnston-pink with focal overlying oily substance consiste nt with possible meconium staining Transparency: Slightly thickened and translucent Insertion: marginal Other: amnionic membranes focally stripped away from s urface; meconium staining DISK Trimmed weight: 661 g Dimensions: 17.6 x 14.1 x 4.9 cm (extensively disrupted) Surface: Blue and glistening with overlying meconium s taining Maternal surface: Red-brown and spongy with disrupted cotyle dons Findings upon sectioning: no masses or infarcts SUMMARY OF CASSETTES: A1 - membrane roll, two sections of umbilical cord A2-A3 - full thickness placenta parenchyma (Dictated by: ADELAIDA Jimenez 10/01/2020 11:17 AM) MICROSCOPIC: A formal microscopic exam is performed. The technical component of this testing was completed at the [facility], with the professional compo nent performed at the [facility], [address] [place] [address] ??[phone] ([phone]) CPT Codes: A: 97351-XW9 COLLECTION SITE: Client: [facility] Location: RHOR (R) Specimen Anatomical Collection Method Collection Time Receive d Time (Source) Location / / Volume Laterality Specimen from 09/28/2020 8:13 PM 10/01/19 21 8:32 placenta PUBLIC POLICY ANALYST AM PUBLIC POLICY ANALYST (specimen) Soledad XIAO Performing Organization Address City/State/ZIP Code Phon e Number COPATH Treponema Abs w Reflex to RPR and Titer (09/28/2020 9:23 AM PUBLIC POLICY ANALYST) [facility] Method Time Signature Treponema Nonreactive NR^Nonrea 09/28/2020 [facility] ctive 5:03 PM PUBLIC POLICY ANALYST [facility] Comment: Methodology Change: Test performed on DiaSorin Liaison XL by Treponema pallidum Total Antibodies Assay as of . Specimen Anatomical Collection Method Collection Time Receive d Time (Source) Location / / Volume Laterality Blood specimen 09/28/2020 9:23 AM 021 9:24 (specimen) PUBLIC POLICY ANALYST AM PUBLIC POLICY ANALYST Soledad Robert [facility] - BLOOD ORDERABLES Performing Organization Address City/State/ZIP Code Phon e Number [address] [address] [facility] ABO/Rh type and screen (09/28/2020 9:23 AM PUBLIC POLICY ANALYST) [facility] Method Time Signature ABO O 09/28/2020 [place] 10:18 AM [facility] RH(D) Pos [facility] Antibody Neg 09/28/2020 [place] Screen 10:18 AM [facility] Test Valid [place] 09/28/2020 [place] Only [facility] 9:43 AM [facility] Specimen 10/01/2020 09/28/2020 [place] Expires 9:43 AM [facility] Specimen Anatomical Collection Method Collection Time Receive d Time (Source) Location / / Volume Laterality Blood specimen 09/28/2020 9:23 AM 9:24 (specimen) PUBLIC POLICY ANALYST AM PUBLIC POLICY ANALYST Soledadpiotr Cruzosmeljodie [facility] - BLOOD BANK TEST ORDER Performing Organization Address City/[facility]/ZIP [facility] Phon [place] Number [facility] [address] [address] [facility] [address] [phone] Asymptomatic SARS-CoV-2 COVID-19 Virus (Coronavirus) by PCR (09/28/2020 8:40 AM PUBLIC POLICY ANALYST) [facility] Method Time Signature SARS-CoV-2 Nasopharyngeal 09/28/2020 [place] Virus 8:51 AM [facility] Source SARS-CoV-2 NEGATIVE 09/28/2020 [place] PCR Result 9:13 AM [facility] Comment: SARS-CoV2 (COVID-19) RNA not de tected, presumed negative. SARS-CoV-2 PCR Comment (Note) 09/28/2020 9:13 A [facility] Comment: Testing was performed using the vera SA RS-CoV-2 & Influenza A/B Assay on the vera Taina System. This test should be ordered for the dete ction of SARS-COV-2 in individuals who meet SARS-CoV-2 clinical and/or epidemi ological criteria. Test performance is unknown in asymptomatic patients. This test is for in vitro diagnostic use under the FDA EUA for laboratories certified under CLIA to perform moderate and/or high complexity testing. This test has not been FDA cleared or approve d. A negative test does not rule out the pr esence of PCR inhibitors in the specimen or target RNA in concentration below the limit of detection for the assay. The possibility of a false negati ve should be considered if the patient's recent exposure or clinical pr esentation suggests COVID-19. [facility] are certi fied under the Clinical Laboratory Improvement Amendments of 1988 (CLIA-88) as qualified to perform moderate and/or high complexity laboratory testin g. Specimen (Source) Anatomical Collection Method Collection Time Re ceived Time Location / / Volume Laterality Specimen from 09/28/2020 8:40 09/28/2020 nasopharyngeal AM PUBLIC POLICY ANALYST 8:51 AM PUBLIC POLICY ANALYST structure (specimen) Soledad Jones CNM LAB - MICRO GENERAL ORDERABL ES Performing Organization Address City/State/ZIP Code Phon e Number M [facility] [address] [address] [facility] [address] [phone] documented in this encounter Visit Diagnoses Diagnosis Indication for care in labor or delivery - Primary Unspecified indication for care or inter vention related to labor and delivery, unspecified as to episode of care Postoperative state Other postprocedural status documented in this encounter Admitting Diagnoses Diagnosis Indication for care in labor or delivery Unspecified indication for care or inter vention related to labor and delivery, unspecified as to episode of care documented in this encounter Administered Medications Inactive Administered Medications - up to 3 most recent administrations Medication Order MAR Action Action Date Dose Rate Site acetaminophen (TYLENOL) tablet Given 09/30/2020 12:04 PM PUBLIC POLICY ANALYST 975 mg 975 mg 975 mg, Oral, EVERY 6 HOURS, First dose on Thu09/28/20 at 2330, Maximum acetaminophen dose from all sources = 75 mg/kg/day not to exceed 4 grams/day., Post-procedure Given 09/30/2020 5:42 AM PUBLIC POLICY ANALYST 975 mg Given 09/30/2020 12:09 AM PUBLIC POLICY ANALYST 975 mg azithromycin 500 mg (ZITHROMAX) in 0.9% New Bag 09/28/2020 7:29 PM PUBLIC POLICY ANALYST 500 mg NaCl 250 mL intermittent infusion 500 mg STAT, 500 mg, Intravenous, PRE-OP/PRE-PROCEDURE, Starting on Thu09/28/20 at 1851, For 1 dose, Give no sooner than 60 minutes prior to incision., Indications: Rupture of Membranes AND/OR Labor prior to , Pre-procedure dextrose 5% in lactated ringers infusion New Bag 09/29/2020 2:00 AM PUBLIC POLICY ANALYST 125 mL/hr at 125 mL/hr, Intravenous, CONTINUOUS, Subsequent IV at nurse's discretion. DC IV when tolerating fluids or at nurse's discretion & saline lock., Post-procedure, Starting on Thu09/28/20 at 2330, Until 09/30/20 at 1703 escitalopram (LEXAPRO) tablet 20 mg Given 09/29/2020 10:37 PM PUBLIC POLICY ANALYST 20 mg 20 mg, Oral, DAILY, First dose on 09/29/20 at 0900 fentaNYL (PF) (SUBLIMAZE) injection 50-100 Given 09/28/2020 9:04 AM PUBLIC POLICY ANALYST 100 mcg mcg 50-100 mcg, Intravenous, EVERY 1 HOUR PRN, other, desired pain relief based on labor coping/body mass index/labor assessment., Starting on Thu09/28/20 at 0833, Start at the lowest dose or may give higher initial dose if labor coping/assessment warrants or as directed by provider. May adjust subsequent doses as needed for pain control based on patient response to first dose or labor coping. Hold dose for analgesic side effects. Notify provider to assess for uncontrolled pain or analgesic side effects. For ordered IV doses 1-100 mcg give IV Push undiluted over a minimum of 3-5 minutes. fentaNYL (SUBLIMAZE) 2 mcg/mL, New Syringe/Cartridge 09/28/2020 6:02 PM PUBLIC POLICY ANALYST bupivacaine (MARCAINE) 0.125% in NS premix for PCEA PCEA dose (mL): 5, PCEA Lockout Interval (min): 15 minutes, Hour Limit (mL): 20, Continuous Rate (Basal Rate) (mL/hr): 10, Initial Set-up verified by: verified by Dr. Kimble and Maria Del Rosario Steven RN, Absolutely no anticoagulants, thrombolytics or antiplatelet medications or other opioid analgesics or other sedatives without prior notification of anesthesiology. For CADD cassettes, pharmacy to send epidural tubing set., Routine New Syringe/Cartridge 09/28/2020 10:08 AM PUBLIC POLICY ANALYST ibuprofen (ADVIL/MOTRIN) tablet 800 mg Given 09/30/2020 10:24 AM PUBLIC POLICY ANALYST 800 mg 800 mg, Oral, EVERY 6 HOURS, First dose on 09/29/20 at 2100, Give with food., Post-procedure Given 09/30/2020 4:33 AM PUBLIC POLICY ANALYST 800 mg Given 09/29/2020 10:36 PM PUBLIC POLICY ANALYST 800 mg ketorolac (TORADOL) injection 30 mg Given 09/29/2020 4:01 PM PUBLIC POLICY ANALYST 30 mg 30 mg, Intravenous, EVERY 6 HOURS, First dose on 09/29/20 at 0300, For 3 doses, Can cause pain on injection. If ordered intravenously (IV) : administer through a running maintenance fluid over 1 minute followed by a flush. If patient complains of pain on injection, may dilute 15-30 mg in 5 mL and push over 1 to 2 minutes. , Post-procedure Given 09/29/2020 9:41 AM PUBLIC POLICY ANALYST 30 mg Given 09/29/2020 3:48 AM PUBLIC POLICY ANALYST 30 mg lactated ringers BOLUS 1,000 mL New Bag 09/28/2020 9:06 AM PUBLIC POLICY ANALYST 1,000 mLs 999 mL/hr Intravenous, 1,000 mL, ONCE PRN, IF patient to have epidural or intrathecal narcotics and NOT pre-eclamptic, Starting on Thu09/28/20 at 0832, For 1 dose, IV bolus must be initiated 15-30 min prior to epidural or intrathecal, then IV fluids per labor orders. Nurse may discontinue this order if duplicate. lactated ringers infusion New Bag 09/28/2020 6:04 PM PUBLIC POLICY ANALYST 125 mL/hr at 125 mL/hr, Intravenous, CONTINUOUS, Starting on Thu09/28/20 at 0900, Until Thu09/28/20 at 2317 New Bag 09/28/2020 10:09 AM PUBLIC POLICY ANALYST 125 mL/hr naloxone (NARCAN) injection 0.2 mg 0.2 mg, Intravenous, EVERY 2 MIN PRN, op ioid reversal, Starting on Thu09/28/20 at 2319, Administer intravenous route when available and notify provider when administered. For unintended sedation or respiratory depression if all of the below criteria are met: ~ respiratory rate LES S than or EQUAL to 8. ~SaO2 less than 92% and or/end-tidal CO2 is greater than 50. ~ the patient is receiving an opioid, has unintended sedations assessed as RASS (-3), and is cur rently not on mechanical ventilation. RASS scale moderate (-3) is movement or eye opening to voice but no eye contact. Patient Monitoring Once the patient has demonstrated a response to the naloxone, continue to monitor respiratory rate, depth, oxygen saturation and end-tidal CO2 (if available) every 15 mi nutes x 2, then every 30 minutes x 2, then every 1 hour x 1 after each naloxone dose. Consider tr ansfer to ICU if patient respiratory parameters have not improved after 4 nalox one doses. For ordered IV doses 0.1-2mg give IVP. Give each 0.4mg over 15 seconds in emergency situations. For non-emergent situations further dilu te in 9mL of NS to facilitate titration of response. naloxone (NARCAN) injection 0.2 mg 0.2 mg, Intramuscular, EVERY 2 MIN PRN, opioid reversal, Starting on Thu09/28/20 at 2319, Administer intramuscular if an int ravenous route is not available and notify provider when administered. For unintend ed sedation or respiratory depression if all of the below criteria are met: ~ respiratory rate LESS than or EQUAL to 8. ~SaO2 less than 92% and or/end-tidal CO2 is greater th an 50. ~ the patient is receiving an opioid, has unintended sedations assessed as RASS (-3), and is currently not on mechanical ventilation. RASS scale moderate (-3) is movement or eye opening to voice but no eye contact. Patient Monitoring Once the patient has demonstrated a response to the naloxone, continue to m onitor respiratory rate, depth, oxygen saturation and end-tidal CO2 (if availab le) every 15 minutes x 2, then every 30 minutes x 2, then every 1 hour x 1 after each naloxone dose. Consider transfer to ICU if patient respiratory parameters have not improved after 4 naloxone doses. For ordered IV doses 0.1-2mg give IVP. Give each 0.4mg over 15 seconds in emergency situations. For non -emergent situations further dilute in 9mL of NS to facilitate titration of response. naloxone (NARCAN) injection 0.4 mg 0.4 mg, Intravenous, EVERY 2 MIN PRN, op ioid reversal, Starting on Thu09/28/20 at 2319, Administer intravenous route when available and notify provider when administered. For unintended sedation or respiratory depression if all of the below criteria are met: ~ respiratory rate LES S than or EQUAL to 8. ~ SaO2 less than 92% and or/end-tidal CO2 is greater than 50. ~ the patient is receiving an opioid, has unintended sedation assessed as RASS (-4 ) or (-5) and patient is currently not on mechanical ventilation. RASS scale (-4) is deep sedation with no response to voice but movement or eye opening to physical stimulation. R ASS scale (-5) is unarousable. Patient Monitoring Once the patient has demonstrated a response to the naloxone, continue to monitor respiratory rate, depth, oxygen saturation and end-tidal CO2 (if available) every 15 mi nutes x 2, then every 30 minutes x 2, then every 1 hour x 1 after each naloxone dose. Consider tr ansfer to ICU if patient respiratory parameters have not improved after 4 nalox one doses. For ordered IV doses 0.1-2mg give IVP. Give each 0.4mg over 15 seconds in emergency situations. For non-emergent situations further dilu te in 9mL of NS to facilitate titration of response. naloxone (NARCAN) injection 0.4 mg 0.4 mg, Intramuscular, EVERY 2 MIN PRN, opioid reversal, Starting on Thu09/28/20 at 2319, Administer intramuscular if an int ravenous route is not available and notify provider when administered. For unintend ed sedation or respiratory depression if all of the below criteria are met: ~ res piratory rate LESS than or EQUAL to 8. ~ SaO2 less than 92% and or/end-tidal CO2 is greater juanito n 50. ~ the patient is receiving an opioid, has unintended sedation assessed as RASS (-4) or (-5) and patient is currently not on mechanical ventilation. RA SS scale (-4) is deep sedation with no response to voice but movement or eye opening to physical stimulation. RASS scale (-5) is unarousa ble. Patient Monitoring Once the patient has demonstrated a response to the nalox one, continue to monitor respiratory rate, depth, oxygen saturation and end-tidal CO2 (if availab le) every 15 minutes x 2, then every 30 minutes x 2, then every 1 hour x 1 after each naloxone dose. Consider transfer to ICU if patient respiratory parameters have not improved after 4 naloxone doses. For ordered IV doses 0.1-2mg give IVP. Give each 0.4mg over 15 seconds in emergency situations. For non -emergent situations further dilute in 9mL of NS to facilitate titration of response. ondansetron (ZOFRAN) injection 4 mg Given 09/28/2020 4:24 PM PUBLIC POLICY ANALYST 4 mg 4 mg, Intravenous, EVERY 6 HOURS PRN, nausea, vomiting, Administer over 2-5 Minutes, Starting on Thu09/28/20 at 0832, If nausea not resolved in 15 minutes, notify provider before proceeding to prochlorperazine (COMPAZINE) [if ordered]. Irritant. For ordered IV doses 0.1-4 mg, give IV Push undiluted over 2-5 minutes. ondansetron (ZOFRAN) injection 4 mg Given 09/29/2020 12:56 AM PUBLIC POLICY ANALYST 4 mg 4 mg, Intravenous, EVERY 6 HOURS PRN, nausea, vomiting, Administer over 2-5 Minutes, Starting on Thu09/28/20 at 2316, If nausea not resolved in 15 minutes, notify provider before proceeding to prochlorperazine (COMPAZINE) [if ordered]. Irritant. For ordered IV doses 0.1-4 mg, give IV Push undiluted over 2-5 minutes., Post-procedure oxyCODONE (ROXICODONE) tablet 5 mg Given 09/29/2020 10:36 PM PUBLIC POLICY ANALYST 5 mg 5 mg, Oral, EVERY 4 HOURS PRN, other, pain control or improvement in physical function. Hold dose for analgesic side effects., Starting on Thu09/28/20 at 2316, Notify provider to assess for uncontrolled pain or analgesic side effects. Hold while on PORTFOLIO MGR or with regular IV opioid dosing. Maximum total is 60 mg in 24 hours., Post-procedure Given 09/29/2020 1:04 PM PUBLIC POLICY ANALYST 5 mg oxytocin (PITOCIN) 30 units in New Bag 09/28/2020 9:40 PM PUBLIC POLICY ANALYST 100 mL/hr 100 mL/hr 500 mL 0.9% NaCl infusion 100-340 mL/hr, Intravenous, CONTINUOUS PRN, after delivery to treat or prevent uterine atony, Starting on Thu09/28/20 at 0832, Administer 340 mL/hr over 30 minutes for a total of 170 mL then decrease to 100 mL/hr until infusion complete (about 3.5 hours) or per provider direction. Start new bag at delivery. Discontinue or saline lock peripheral IV per nurse discretion. oxytocin (PITOCIN) 30 Rate/Dose Change 09/28/2020 5:29 6 arslan-unit s/min 6 mL/hr units in 500 mL 0.9% PM PUBLIC POLICY ANALYST NaCl infusion 1-24 arslan-units/min (1-24 mL/hr), Intravenous, CONTINUOUS, Starting on Thu09/28/20 at 1330, Start infusion at 2 arslan-units/min. Increase by 1-2 arslan-units/min every 30 minutes as clinically indicated until contractions are 2-3 minutes apart, lasting 45 to 60 seconds in duration to achieve labor progress. Max rate is 24 milliunits/min. Do NOT go higher without a provider order. If oxytocin (PITOCIN) infusion is discontinued and off for less than 30 minutes, restart infusion at half of previous oxytocin (PITOCIN) rate. If oxytocin (PITOCIN) infusion has been discontinued equal to or greater than 30 minutes, begin at initial dose. IF another cervical ripening medication is ordered wait 60 minutes after oxytocin (PITOCIN) infusion is stopped before administering cervical ripening medication. Rate/Dose Change 09/28/2020 4:29 PM PUBLIC POLICY ANALYST 5 arslan-units/min 5 mL/hr Rate/Dose Verify 09/28/2020 3:44 PM PUBLIC POLICY ANALYST 4 arslan-units/min 4 mL/hr senna-docusate (SENOKOT-S/PERICOLACE) Given 09/30/2020 9:[address] 1 tablet 8.6-50 MG per tablet 1 tablet 1 tablet, Oral, 2 TIMES DAILY, First dose on Thu09/28/20 at 2330, If no bowel movement in 24 hours, increase to 2 tablets PO. Hold for loose stools. Preferred agent for constipation related to opioids. Hold for loose stools., Post-procedure Given 09/29/2020 10:36 PM PUBLIC POLICY ANALYST 1 tablet Given 09/29/2020 9:50 AM PUBLIC POLICY ANALYST 1 tablet senna-docusate (SENOKOT-S/PERICOLACE) 8. 6-50 MG per tablet 2 tablet 2 tablet, Oral, 2 TIMES DAILY, First dos e on Thu09/28/20 at 2330, Hold for loose stools. Preferred agent for constipation related to op ioids. Hold for loose stools., Post-procedure simethicone (MYLICON) chewable tablet 80 mg Given 09/30/2020 3:27 AM PUBLIC POLICY ANALYST 80 mg 80 mg, Oral, 4 TIMES DAILY PRN, other, gas, Starting on Thu09/28/20 at 2316, Chew., Post-procedure sodium chloride (PF) 0.9% PF flush 3 mL Given 09/29/2020 4:01 PM PUBLIC POLICY ANALYST 3 mLs 3 mL, Intracatheter, EVERY 8 HOURS PRN, other, to lock peripheral IV dormant line, Starting on Thu09/28/20 at 2316, Post-procedure sodium citrate-citric acid (BICITRA) solution Given 7:29 PM PUBLIC POLICY ANALYST 30 mLs 30 mL 30 mL, Oral, PRE-OP/PRE-PROCEDURE, Starting on Thu09/28/20 at 1850, For 1 dose, For gastric pH neutralization. GIVE WITHIN 45 minutes PRIOR TO SURGICAL PROCEDURE., Pre-procedure documented in this encounter Active and Recently Administered Medications Times are shown in PUBLIC POLICY ANALYST. Scheduled Medication Order 09/28/2020 09/29/2020 09/30/2020 acetaminophen (TYLENOL) tablet 975 mg 00 56 (Not Given - Provider: Kathleen Hurley RN - Reason: Nausea)0613 (Given - Provider: Kathleen Hurley RN)1216 (Given - Provider: Elvie Turcios RN)1759 (Given - Provider: Kathleen Wright RN) 0009 (Given - Provider: Rhianna Washington, UNRULY)0542 (Given - Provider: Karol Hayden, UNRULY)1204 (Given - Provider: Lakeshia Mullen RN) 975 mg, Oral, EVERY 6 HOURS, First dose on Thu09/28/20 at 2330, Maximum acetaminophen dose from all sources = 75 mg/kg/day not to exceed 4 grams/day., Post-procedure azithromycin 500 mg (ZITHROMAX) in 0.9% NaCl 250 mL intermittent infusion 500 mg (COMPLETED) 1928 (New Bag - Provider: Maricruz Rogers RN)2029 (Stopped - Provider: Maricruz Rogers RN) STAT, 500 mg, Intravenous, PRE-OP/PRE-ID OCEDURE, Starting 09/28/20 at 1851, For 1 dose, Give no sooner than 60 minutes prior to incision., Indications: Rupture of Membranes AND/OR Labor prior to , Pre-procedure escitalopram (LEXAPRO) tablet 20 mg 1216 (Not Given - Provider: Elvie Turcios RN - Reason: Patient/family refused - Comment: takes at night, dose rescheduled)2237 (Given - Provider: Kathleen Wright RN) 20 mg, Oral, DAILY, First dose on 09/29/20 at 0900 fentaNYL (SUBLIMAZE) 2 mcg/mL, bupivacai ne (MARCAINE) 0.125% in NS premix for PCEA (CANCELED) 1008 (New Syringe/Cartridge - Provider: Maria Del Rosario Steven RN)1620 (Canceled Entry - Provider: Maria Del Rosario Steven RN)1802 (New Syringe/Cartridge - Provider: Maria Del Rosario Steven RN) PCEA dose (mL): 5, PCEA Lockout interval (min): 15 minutes, Hour Limit (mL): 20, Continuous Rate (Basal Rate) (mL/hr): 10, Initial Set-up verified by: verified by Dr. Kimble and Maria Del Rosario Steven, UNRULY, Absolu 1947 (Auto Hold - Provider: Orders Generic Provider - Reason: Transfer to a procedural area)2051 (Unhold - Provider: Orders Generic Provider)2122 (Auto Hold - Provider: Orders Generic Provider - Reason: Transfer to a procedural area) tely no anticoagulants, thrombolytics or antiplatelet medications or other opioid analgesics or other sedatives without prior notification of anesthesiology. For CADD cassettes, pharmacy to send epidural tubing set., Routine 2152 (Unhold - Provider: Orders Generic Provider)2156 (Auto Hold - Provider: Orders Generic Provider - Reason: Transfer to a procedural area)2199 (Automatically Held - Provider: Orders Generic Provider) 2202 (Unhold - Provider: Orders Generic Provider ) ibuprofen (ADVIL/MOTRIN) tablet 800 mg 2 236 (Given - Provider: Kathleen Wright RN) 0341 (Canceled Entry - Provider: Karol Hayden RN)0433 (Given - Provider: Karol Hayden RN)1024 (Given - Provider: Lakeshia Mullen, UNRULY)1630 (Canceled Entry - Provider: Orders Generic Provider - Comment: Automatically canceled at discont 800 mg, Oral, EVERY 6 HOURS, First dose on 09/29/20 at 2100, Give with food., Post-procedure inue of medication o rder) ketorolac (TORADOL) injection 30 mg (COMPLETED) 0348 (Given - Provider: Kathleen Hurley RN)0941 (Given - Provider: Maria Del Rosario Steven RN)1601 (Given - Provider: Kathleen Wright, UNRULY) 30 mg, Intravenous, EVERY 6 HOURS, First dose on 09/29/20 at 0300, For 3 doses, Can cause pain on injection. If ordered intravenously (IV) : administer through a running maintenance fluid over 1 yenifer te followed by a flush. If patient compl ains of pain on injection, may dilute 15-30 mg in 5 mL and push over 1 to 2 minutes. , Post-procedure Measles, Mumps & Rubella Vac (MMR) injection 0.5 mL 1000 (Canceled Entry - Provider: Maria Del Rosario Steven RN - Comment: Rubella immune) 0.5 mL, Subcutaneous, ONCE, 09/29/20 at 1000, For 1 dose, Give ONLY if not immune or equivocal / borderline / low level Rubella titer., Post-procedure senna-docusate (SENOKOT-S/PERICOLACE) 8. 6-50 MG per tablet 1 tablet(Linked Group 1) 2347 (See Alternative - Provider: Kathleen Hurley RN) 0950 (Given - Provider: Maria Del Rosario Steven RN)2236 (Given - Provider: Kathleen Wright, UNRULY) 0950 (Given - Provider: Lakeshia Mullen, UNRULY) 1 tablet, Oral, 2 TIMES DAILY, First dos e on 09/28/20 at 2330, If no bowel movement in 24 hours, increase to 2 tablets PO. Hold for loose stools. Preferred agent for constipation related to opioids. Hold for loose stools., Post-procedure senna-docusate (SENOKOT-S/PERICOLACE) 8. 6-50 MG per tablet 2 tablet(Linked Group 1) 2347 (Not Given - Provider: Kathleen fritz RN - Reason: Other - Comment: clear liquids) 0950 (See Alternative - Provider: Maria Del Rosario Steven, RN)2236 (See Alternative - Provider: Kathleen Wright RN) 0950 (See Alternative - Provider: Lakeshia Mullen RN) 2 tablet, Oral, 2 TIMES DAILY, First dos e on 09/28/20 at 2330, Hold for loose stools. Preferred agent for constipation related to opioids. Hold for loose stools., Post-procedure sodium citrate-citric acid (BICITRA) solution 30 mL (C OMPLETED) 1929 (Given - Provider: Maricruz Rogers RN) 30 mL, Oral, PRE-OP/PRE-PROCEDURE, Start ing Thu09/28/20 at 1850, For 1 dose, For gastric pH neutralization. GIVE WITHIN 45 minutes PRIOR TO SURGICAL PROCEDURE., Pre-procedure Tdap (djswdje-bdrkxpymgb-hzgam pertussis) (ADACEL) injection 0.5 mL 1000 (Canceled Entry - Provider: Maria Del Rosario Steven RN - Comment: Tdap given 07/09/20) 0.5 mL, Intramuscular, ONCE, 09/29/20 at 1000, For 1 dose, Administer Tdap PRIOR to discharge IF ALL apply: Tdap was NOT administered in AND has NOT had a Tdap after age 9 years., Post-procedure Continuous Medication Order 09/28/2020 09/29/2020 09/30/2020 dextrose 5% in lactated ringers infusion 0200 (New Bag - Provider: Kathleen Hurley RN) at 125 mL/hr, Intravenous, CONTINUOUS, S ubsequent IV at nurse's discretion. DC IV when tolerating fluids or at nurse's discretion & saline lock., Post- procedure, Starting Thu09/28/20 at 2330, Until Thu09/30/20 at 1703 lactated ringers infusion (CANCELED) 1009 (New Bag - P rovider: Maria Del Rosario Steven RN)1804 (New Bag - Provider: Maria Del Rosario Steven RN) at 125 mL/hr, Intravenous, CONTINUOUS, S tarting Thu09/28/20 at 0900, Until Thu09/28/20 at 2317 oxytocin (PITOCIN) 30 units in 500 mL 0.9% NaCl infusi on (CANCELED) 1315 (New Bag - Provider: Maria Del Rosario Steven, RN)1344 (Rate/Dose Change - Provider: Maria Del Rosario Steven, RN)1415 (Rate/Dose Verify - Provider: Maria Del Rosario Steven, RN)1544 (Rate/Dose Verify - Provider: Maria Del Rosario Steven, RN) 1-24 arslan-units/min (1-24 mL/hr), at 1- 24 mL/hr, Intravenous, CONTINUOUS, Starting Thu09/28/20 at 1330, Start infusion at 2 arslan-units/min. Increase by 1-2 arslan-units/min every 30 minutes as clinical 1629 (Rate/Dose Change - Provider: Maria Del Rosario Steven, RN)1729 (Rate/Dose Change - Provider: Maria Del Rosario Steven, RN)1845 (Stopped - Provider: Maria Del Rosario Steven RN) ly indicated until contractions are 2-3 minutes apart, lasting 45 to 60 seconds in duration to achieve labor progress. Max rate is 24 milliunits/min. Do NOT go higher without a provider order. If oxytoc in (PITOCIN) infusion is discontinued an d off for less than 30 minutes, restart infusion at half of previous oxytocin (PITOCIN) rate. If oxytocin (PITOCIN) infusion has been discontinued equal to or gre ater than 30 minutes, begin at initial d ose. IF another cervical ripening medication is ordered wait 60 minutes after oxytocin (PITOCIN) infusion is stopped before administering cervical ripening medication. oxytocin (PITOCIN) 30 units in 500 mL 0.9% NaCl infusion 0202 (Stopped - Provider: Kathleen Hurley RN) 100 mL/hr, at 100 mL/hr, Intravenous, CO NTINUOUS, Starting 09/28/20 at 2330, Anesthesia Provider to administer at 340 mL/hr for 30 minutes (or longer per provider discretion) then decrease to 100 mL/ hr. Continue until a total of 2 bags adm inistered (1st bag initiated by Anesthesia Provider.) Discontinue IV or saline lock IV per nurse discretion., Post-procedure PRN Medication Order 09/28/2020 09/29/2020 09/30/2020 bisacodyl (DULCOLAX) Suppository 10 mg 10 mg, Rectal, DAILY PRN, constipation, Starting 09/30/20 at 0000, Start POD 2 Hold for loose stools., Post-procedure fentaNYL (PF) (SUBLIMAZE) injection 50-100 mcg (CANCEL ED) 09 (Given - Provider: Ambreen Medina RN)1947 (Auto Hold - Provider: Orders Generic Provider - Reason: Transfer to a procedural area)2051 (Unhold - Provider: Orders Generic Provider) 50-100 mcg, Intravenous, EVERY 1 HOUR ID N, other, desired pain relief based on labor coping/body mass index/labor assessment., Starting Thu09/28/20 at 0833, Start at the lowest dose or may give higher i 2122 (Auto Hold - Provider: Orders Generic Provider - Reason: Transfer to a procedural area)2152 (Unhold - Provider: Orders Generic Provider)2156 (Auto Hold - Provider: Orders Generic Provider - Reason: Transfer to a procedural area) nitial dose if labor coping/assessment w arrants or as directed by provider. May adjust subsequent doses as needed for pain control based on patient response to first dose or labor coping. Hold dose for 2202 (Unhold - Provider: Orders Generic Provider) analgesic side effects. Notify provider to assess for uncontrolled pain or analgesic side effects. For ordered IV doses 1-100 mcg give IV Push undiluted over a minimum of 3-5 minutes. hydrocortisone 2.5 % cream Rectal, 3 TIMES DAILY PRN, hemorrhoids, Starting Thu09/28/20 at 2316, Apply to hemorrhoids. Send only if nurse requests., Post-procedure lactated ringers BOLUS 1,000 mL (COMPLETED) 09 (New Bag - Provider: Maria Del Rosario Steven, RN)1000 (Stopped - Provider: Maria Del Rosario Steven, RN) Intravenous, 1,000 mL, ONCE PRN, IF torito ent to have epidural or intrathecal narcotics and NOT pre-eclamptic, Starting Thu09/28/20 at 0832, For 1 dose, IV bolus must be initiated 15-30 min prior to epidu ral or intrathecal, then IV fluids per l abor orders. Nurse may discontinue this order if duplicate. lactated ringers BOLUS 1,000 mL Intravenous, 1,000 mL, ONCE PRN, post pa rtum hemorrhage (PPH), Starting Thu09/28/20 at 2316, For 1 dose, Rate: 500-1000 mL/hr. Start IF HEMORRHAGE, Post-procedure lanolin cream Topical, EVERY 1 HOUR PRN, dry skin, sor eness, Starting Thu09/28/20 at 2316, Apply to sore nipples after feedings, Post-procedure lidocaine (LMX4) cream Topical, EVERY 1 HOUR PRN, pain, with VA D insertion., Starting Thu09/28/20 at 2316, Apply at least 30 minutes prior to VAD insertion. In divided doses as needed for size of site for insertion. MAX Dose: 2.5 g (?? of 5 g tube) Do NOT give if p atient has a history of allergy to any local anesthetic or any gene product., Post-procedure lidocaine 1 % 0.1-1 mL 0.1-1 mL, Other, EVERY 1 HOUR PRN, mild pain with VAD insertion., Starting Thu09/28/20 at 2316, MAX dose 1 mL subcutaneous OR intradermal along the side of the vein in divided doses as needed for VAD in sertion. Do NOT give if patient has a hi story of allergy to any local anesthetic or any gene product., Post-procedure naloxone (NARCAN) injection 0.2 mg(Linked Group 2) 0.2 mg, Intravenous, EVERY 2 MIN PRN, op ioid reversal, Starting Thu09/28/20 at 2319, Administer intravenous route when available and notify provider when administered. For unintended sedation or respira tory depression if all of the below crit eria are met: ~ respiratory rate LESS than or EQUAL to 8. ~SaO2 less than 92% and or/end-tidal CO2 is greater than 50. ~ the patient is receiving an opioid, has u nintended sedations assessed as RASS (-3 ), and is currently not on mechanical ventilation. RASS scale moderate (-3) is movement or eye opening to voice but no eye contact. Patient Monitoring Once the pa tient has demonstrated a response to the naloxone, continue to monitor respiratory rate, depth, oxygen saturation and end-tidal CO2 (if available) every 15 minutes x 2, then every 30 minutes x 2, then e very 1 hour x 1 after each naloxone dose . Consider transfer to ICU if patient respiratory parameters have not improved after 4 naloxone doses. For ordered IV doses 0.1-2mg give IVP. Give each 0.4mg over 15 seconds in emergency situations. For non-emergent situations further dilute in 9mL of NS to facilitate titration of response. naloxone (NARCAN) injection 0.2 mg(Linked Group 2) 0.2 mg, Intramuscular, EVERY 2 MIN PRN, opioid reversal, Starting Thu09/28/20 at 2319, Administer intramuscular if an intravenous route is not available and notify provider when administered. For uninte nded sedation or respiratory depression if all of the below criteria are met: ~ respiratory rate LESS than or EQUAL to 8. ~SaO2 less than 92% and or/end-tidal CO2 is greater than 50. ~ the patient is re ceiving an opioid, has unintended sedati ons assessed as RASS (-3), and is currently not on mechanical ventilation. RASS scale moderate (-3) is movement or eye opening to voice but no eye contact. Patien t Monitoring Once the patient has demons trated a response to the naloxone, continue to monitor respiratory rate, depth, oxygen saturation and end-tidal CO2 (if available) every 15 minutes x 2, then ever y 30 minutes x 2, then every 1 hour x 1 after each naloxone dose. Consider transfer to ICU if patient respiratory parameters have not improved after 4 naloxone doses. For ordered IV doses 0.1-2mg give I PUPPY WALKER. Give each 0.4mg over 15 seconds in e mergency situations. For non-emergent situations further dilute in 9mL of NS to facilitate titration of response. naloxone (NARCAN) injection 0.4 mg(Linked Group 2) 0.4 mg, Intravenous, EVERY 2 MIN PRN, op ioid reversal, Starting Thu09/28/20 at 2319, Administer intravenous route when available and notify provider when administered. For unintended sedation or respira tory depression if all of the below crit eria are met: ~ respiratory rate LESS than or EQUAL to 8. ~ SaO2 less than 92% and or/end-tidal CO2 is greater than 50. ~ the patient is receiving an opioid, has unintended sedation assessed as RASS (-4 ) or (-5) and patient is currently not on mechanical ventilation. RASS scale (-4) is deep sedation with no response to voice but movement or eye opening to physic al stimulation. RASS scale (-5) is unaro usable. Patient Monitoring Once the patient has demonstrated a response to the naloxone, continue to monitor respiratory rate, depth, oxygen saturation and end-ti tyelr CO2 (if available) every 15 minutes x 2, then every 30 minutes x 2, then every 1 hour x 1 after each naloxone dose. Consider transfer to ICU if patient respiratory parameters have not improved after 4 naloxone doses. For ordered IV doses 0.1-2mg give IVP. Give each 0.4mg over 15 seconds in emergency situations. For non-emergent situations further dilute in 9mL of NS to facilitate titration of response. naloxone (NARCAN) injection 0.4 mg(Linked Group 2) 0.4 mg, Intramuscular, EVERY 2 MIN PRN, opioid reversal, Starting Thu09/28/20 at 2319, Administer intramuscular if an intravenous route is not available and notify provider when administered. For uninte nded sedation or respiratory depression if all of the below criteria are met: ~ respiratory rate LESS than or EQUAL to 8. ~ SaO2 less than 92% and or/end-tidal CO2 is greater than 50. ~ the patient is r eceiving an opioid, has unintended sedat ion assessed as RASS (-4) or (-5) and patient is currently not on mechanical ventilation. RASS scale (-4) is deep sedation with no response to voice but movement or eye opening to physical stimulation. RASS scale (-5) is unarousable. Patient Monitoring Once the patient has demonstrated a response to the naloxone, continue to monitor respiratory rate, depth, oxyg en saturation and end-tidal CO2 (if avai lable) every 15 minutes x 2, then every 30 minutes x 2, then every 1 hour x 1 after each naloxone dose. Consider transfer to ICU if patient respiratory parameters have not improved after 4 naloxone dose s. For ordered IV doses 0.1-2mg give IVP. Give each 0.4mg over 15 seconds in emergency situations. For non-emergent situations further dilute in 9mL of NS to facilitate titration of response. NO Rho (D) immune globulin (RhoGam) needed - mother Rh POSITIVE CONTINUOUS PRN, Starting Thu09/28/20 at 2316, Until 09/30/20 at 1703, Post-procedure ondansetron (ZOFRAN) injection 4 mg (CANCELED) 1800 (C anceled Entry - Provider: Maria Del Rosario Steven RN)1947 (Auto Hold - Provider: Orders Generic Provider - Reason: Transfer to a procedural area)1951 (Given - Provider: Narinder Franklin MD)2051 (Unhold - Provider: Orders Generic Provider) 4 mg, Intravenous, EVERY 6 HOURS PRN, na usea, vomiting, Administer over 2-5 Minutes, Starting Thu09/28/20 at 0746, If nausea not resolved in 15 minutes, notify provider before proceeding to prochlorpera 2122 (Auto Hold - Provider: Orders Generic Provider - Reason: Transfer to a procedural area)2152 (Unhold - Provider: Orders Generic Provider)2156 (Auto Hold - Provider: Orders Generic Provider - Reason: Transfer to a procedural area) zine (COMPAZINE) [if ordered]. Irritant. For ordered IV doses 0.1-4 mg, give IV Push undiluted over 2-5 minutes. 2202 (Unhold - Provider: Orders Generic Provider) ondansetron (ZOFRAN) injection 4 mg (CANCELED) 1624 (G iven - Provider: Maria Del Rosario Steven, UNRULY)1947 (Auto Hold - Provider: Orders Generic Provider - Reason: Transfer to a procedural area)2051 (Unhold - Provider: Orders Generic Provider) 4 mg, Intravenous, EVERY 6 HOURS PRN, na usea, vomiting, Administer over 2-5 Minutes, Starting Thu09/28/20 at 0832, If nausea not resolved in 15 minutes, notify provider before proceeding to prochlorpera 2122 (Auto Hold - Provider: Orders Generic Provider - Reason: Transfer to a procedural area)2152 (Unhold - Provider: Orders Generic Provider)2156 (Auto Hold - Provider: Orders Generic Provider - Reason: Transfer to a procedural area) zine (COMPAZINE) [if ordered]. Irritant. For ordered IV doses 0.1-4 mg, give IV Push undiluted over 2-5 minutes. 2202 (Unhold - Provider: Orders Generic Provider) ondansetron (ZOFRAN) injection 4 mg 0056 (Given - Provider: Kathleen Hurley RN) 4 mg, Intravenous, EVERY 6 HOURS PRN, na usea, vomiting, Administer over 2-5 Minutes, Starting Thu09/28/20 at 2316, If nausea not resolved in 15 minutes, notify provider before proceeding to prochlorpera zine (COMPAZINE) [if ordered]. Irritant. For ordered IV doses 0.1-4 mg, give IV Push undiluted over 2-5 minutes., Post-procedure oxyCODONE (ROXICODONE) tablet 5 mg 1304 (Given - Provider: Maria Del Rosario Steven, RN)2236 (Given - Provider: Kathleen Wright, UNRULY) 5 mg, Oral, EVERY 4 HOURS PRN, other, pa in control or improvement in physical function. Hold dose for analgesic side effects., Starting Thu09/28/20 at 2316, Notify provider to assess for uncontrolled pa in or analgesic side effects. Hold while on PORTFOLIO MGR or with regular IV opioid dosing. Maximum total is 60 mg in 24 hours., Post-procedure oxytocin (PITOCIN) 30 units in 500 mL 0.9% NaCl infusi on (COMPLETED) 2139 (New Bag - Provider: Maricruz Rogers RN) 100-340 mL/hr, at 100-340 mL/hr, Intrave nous, CONTINUOUS PRN, after delivery to treat or prevent uterine atony, Starting Thu09/28/20 at 0832, Administer 340 mL/hr over 30 minutes for a total of 170 mL t hen decrease to 100 mL/hr until infusion complete (about 3.5 hours) or per provider direction. Start new bag at delivery. Discontinue or saline lock peripheral IV per nurse discretion. oxytocin (PITOCIN) 30 units in 500 mL 0.9% NaCl infusion 340 mL/hr, at 340 mL/hr, Intravenous, CO NTINUOUS PRN, for hemorrhage (PPH) UNTIL bleeding subsided, Starting Thu09/28/20 at 2316, When bleeding subsides decrease rate to 100 mL/hr. Notify pro vider immediately when infusion begun. O xytocin is first line medication for PPH., Post-procedure oxytocin (PITOCIN) injection 10 Units 10 Units, Intramuscular, ONCE PRN, postp artum hemorrhage (PPH). IF no IV access is available., Starting Thu09/28/20 at 2316, For 1 dose, Oxytocin is first line medication for PPH., Post-procedure simethicone (MYLICON) chewable tablet 80 mg 0327 (Given - Provider: Karol Hayden RN) 80 mg, Oral, 4 TIMES DAILY PRN, other, g as, Starting Thu09/28/20 at 2316, Chew., Post-procedure sodium chloride (PF) 0.9% PF flush 3 mL 1601 (Given - Provider: Kathleen Wright, UNRULY) 3 mL, Intracatheter, EVERY 8 HOURS PRN, other, to lock peripheral IV dormant line, Starting Thu09/28/20 at 2316, Post-procedure sodium chloride (PF) 0.9% PF flush 3 mL 3 mL, Intracatheter, EVERY 1 MIN PRN, li ne flush, for peripheral IV flush post IV meds, or to ensure patency., Starting Thu09/28/20 at 2316, Post-procedure sodium phosphate (FLEET ENEMA) 1 enema 1 enema, Rectal, DAILY PRN, constipation , , Starting Thu09/30/20 at 0000, Use if bisacodyl not effective. Start POD 2. Hold for loose stools., Post-procedure tranexamic acid 1 g in 100 mL 0.7% NaCl IV bag (premix) 1 g, Intravenous, Administer over 10 Min utes, EVERY 30 MIN PRN, Post- hemorrhage (PPH), Starting Thu09/28/20 at 2316, For 2 doses, Provider consultation REQUIRED and MUST be administered as soon a s the ONSET of bleeding AND within 3 wallace rs of regardless of cause of the PPH (atony OR laceration). IF bleeding continues, a 2nd dose may be administered after 30 minutes. IF concern for DIC (Diss eminated Intravascular Coagulation), obt ain coagulation studies PRIOR to administration. Mix in 50 mL or 100 mL normal saline and infuse. Contraindications include: history of PE (Pulmonary Emboli), DVT (Deep Vein Thrombosis) and current Suba rachnoid hemorrhage and active DIC., Post-procedure Linked Groups Order Group 1: senna-docusate (SENOKOT-S/PERICOLACE) 8.6-50 MG per tablet 1 tabletJump to med 1 tablet, Oral, 2 TIMES DAILY, First dos e on Thu09/28/20 at 2330
If no bowel movement in 24 hours, increase to 2 tablets PO. Hold for loose stools. Preferred agent f or constipation related to opioids.&nbsp ;Hold for loose stools.
Post-procedure Or senna-docusate (SENOKOT-S/PERICOLACE) 8.6-50 MG per tablet 2 tabletJump to med 2 tablet, Oral, 2 TIMES DAILY, First dos e on Thu09/28/20 at 2330
Hold for loose stools. Preferred agent for constipation related to opioids. Hold for loose stools.
Post-procedure Group 2: naloxone (NARCAN) injection 0.2 mgJump to med 0.2 mg, Intravenous, EVERY 2 MIN PRN, op ioid reversal, Starting Thu09/28/20 at 2319
Administer intravenous route when available and notify provider when administered. For unintended se dation or respiratory depression if all of the below criteria are met: ~ respiratory rate LESS than or EQUAL to 8. ~SaO2 less than 92% and or/end- tidal CO2 is greater than 50.&nbs p;~ the patient is receiving an opioid, has unintended sedations assessed as RASS (-3), and is currently not on mechanical ventilation. RASS scale moderate (-3) is movement or eye ope ancelmo to voice but no eye contact. & nbsp;Patient Monitoring Once the patient has demonstrated a response to the naloxone, continue to monitor respiratory rate, depth, oxygen saturat ion and end-tidal CO2 (if available) marcin ry 15 minutes x 2, then every 30 minutes x 2, then every 1 hour x 1 after each naloxone dose. Consider transfer to ICU if patient respiratory p arameters have not improved after 4 nalo xone doses. For ordered IV doses 0.1-2mg give IVP. Give each 0.4mg over 15 seconds in emergency situations. For non-emergent situations further dilute in 9mL of NS to facilitate titration of response.
Or naloxone (NARCAN) injection 0.4 mgJump to med 0.4 mg, Intravenous, EVERY 2 MIN PRN, op ioid reversal, Starting Thu09/28/20 at 2319
Administer intravenous route when available and notify provider when administered. For unintended se dation or respiratory depression if all of the below criteria are met: ~ respiratory rate LESS than or EQUAL to 8. ~ SaO2 less than 92% and or/end- tidal CO2 is greater than 50.&nbs p;~ the patient is receiving an opioid, has unintended sedation assessed as RASS (-4) or (-5) and patient is currently not on mechanical ventilation. RASS scale (-4) is deep sedation with no response to voice but movement o r eye opening to physical stimulation. RASS scale (-5) is unarousable. Patient Monitoring Once the patient has demonstrated a response to the naloxone, continue to monitor respiratory rate, depth, oxygen saturation and end-tidal CO2 (if available) every 15 minutes x 2, then every 30 minutes x 2, then every 1 hour x 1 after each naloxon e dose. Consider transfer to ICU if patient respiratory parameters have not improved after 4 naloxone doses. For ordered IV doses 0.1- 2mg give IVP. Give each 0.4mg over 15 se conds in emergency situations. For non- emergent situations further dilute in 9mL of NS to facilitate titration of response.
Or naloxone (NARCAN) injection 0.2 mgJump to med 0.2 mg, Intramuscular, EVERY 2 MIN PRN, opioid reversal, Starting Thu09/28/20 at 2319
Administer intramuscular if an intravenous route is not available and notify provider when administered.&am p;nbsp;For unintended sedation or respir atory depression if all of the below criteria are met: ~ respiratory rate LESS than or EQUAL to 8. ~SaO2 less than 92% and or/end-tidal CO2 is greater than 50. ~ the patient is r eceiving an opioid, has unintended sedations assessed as RASS (-3), and is currently not on mechanical ventilation. RASS scale moderate (-3 ) is movement or eye opening to voice bu t no eye contact. Patient Monitoring Once the patient has demonstrated a response to the naloxone, continue to monitor respiratory rat e, depth, oxygen saturation and end-tida l CO2 (if available) every 15 minutes x 2, then every 30 minutes x 2, then every 1 hour x 1 after each naloxone dose. Consider transfer to ICU if patient respiratory parameters have n ot improved after 4 naloxone doses. For ordered IV doses 0.1-2mg give IVP. Give each 0.4mg over 15 seconds in emergency situations. For non-emergent situ ations further dilute in 9mL of NS to fa cilitate titration of response.
Or naloxone (NARCAN) injection 0.4 mgJump to med 0.4 mg, Intramuscular, EVERY 2 MIN PRN, opioid reversal, Starting Thu09/28/20 at 2319
Administer intramuscular if an intravenous route is not available and notify provider when administered.&am p;nbsp;For unintended sedation or respir atory depression if all of the below criteria are met: ~ respiratory rate LESS than or EQUAL to 8. ~ SaO2 less than 92% and or/end-tidal CO2 is greater than 50. ~ the patient is r eceiving an opioid, has unintended sedation assessed as RASS (-4) or (-5) and patient is currently not on mechanical ventilation. RASS scal e (-4) is deep sedation with no response to voice but movement or eye opening to physical stimulation. RASS scale (-5) is unarousable. Patient M onitoring Once the patient has demo nstrated a response to the naloxone, continue to monitor respiratory rate, depth, oxygen saturation and end-tidal CO2 (if available) every 15 minutes x 2, the n every 30 minutes x 2, then every 1 wallace r x 1 after each naloxone dose. Consider transfer to ICU if patient respiratory parameters have not improved after 4 naloxone doses. F or ordered IV doses 0.1-2mg give IVP. Gi ve each 0.4mg over 15 seconds in emergency situations. For non-emergent situations further dilute in 9mL of NS to facilitate titration of response.
documented in this encounter Additional Health Concerns Assessment Noted Time PHQ-9 Depression Total Score: 5 12/06/2020 7:02 AM CDT documented as of this encounter Care Teams [employer] [place] Relationship Specialty Start Date End Date Blank Lemos MD PCP - General Internal Medicine 04/22/18 [address] [facility] [place] [id number] Blank Lemos MD Assigned PCP 04/25/[address] [place] [address] DR VASQUEZ, KISHAN [id number] Kathleen Lacy CNM Assigned OBGYN Provider 06/01/20 11/23/21 [address] [place], [place] [address] documented as of this encounter
--- OUTSIDE RECORDS SUMMARY | 2022-04-09 07:17 | XMS_ITS | Encounter Summary ---
:1990 Author Organization [place] Address [facility] [place] [address] Care Team Providers Name Role Phone Blank Lemos MD Primary Care Provider Blank Lemos MD Unavailable Kathleen Lacy CNM Unavailable Reason for Visit Diagnostic Imaging Ultrasound (Routine) - Closed Specialty Diagnoses / Procedures Referred By Contact Refer red To Contact Diagnoses Encounter for supervision of normal first in third trimester Soledad Jones CNM Procedures US OB >14 Weeks Follow Up [address] [place] [address] Referral ID Status Reason Start Date Expiration Date Visits Requ ested Visits Authorized [id number] Closed 08/20/2020 08/20/2021 1 1 Encounter Details Date Type Department Care Team Description 09/03/[address] 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 documented as of this encounter Plan of Treatment Not on filedocumented as of this encounter Procedures Procedure Name Priority Date/Time Associated Diagnosis Comme nts US OB FOLLOW UP >14 Routine 09/03/2020 1:47 PM Encounter for R esults for this WEEKS PROTECTIVE SIGNAL INSTALLER HELPER supervision of procedure are in normal first the results in third section. trimester documented in this encounter Results US OB >14 Weeks Follow Up (09/03/2020 1:47 PM PROTECTIVE SIGNAL INSTALLER HELPER) Anatomical Region Laterality Modality Abdomen/Pelvis Ultrasound Specimen (Source) Anatomical Location Collection Method / Collectio n Time Received Time / Laterality Volume Impressions 09/03/2020 4:32 PM PROTECTIVE SIGNAL INSTALLER HELPER ? M[place]za Gestation. ?? presentation: Cephalic Placenta: Posterior, no previa, > 2 cm f rom internal os Grade: I ? MEASUREMENTS BPD ??9.0 cm ??36w2d ??52.6% HC ??31.7 cm ??35w5d ??8.1% AC ??33.0 cm ??36w6d ??70.7% FL ??7.1 cm ??36w2d ??38.4% HL ??6.3 cm ??36w4d ??73.5% Heart Rate ??139 bpm ? Amniotic fluid ??6.7 cm MVP ? EFW (lbs/oz) ??6 lbs 8ozs ? EFW (g) ??2956 g ??52.1% ?? EDC: ?09/29/20 [place] by Current Scan: ?? 36w2d correspond ? SURVEY ? Visualized: 4 Chamber Heart, Stomach, Ki dneys and Bladder. ?? MATERNAL ANATOMY ?? Right Ovary: Visualized Left Ovary: Not visualized ?? Limited growth obstetrical ultrasound us ing realtime transabdominal scanning Corresponding menstrual and sonographic dates Maternal Uterus appears ??normal Maternal right ovary was visualized, mat ernal left ovary was not visualized Normal amniotic fluid ? ==== 1. growth is normal at 2956 grams (6 lbs 8 oz) corresponding to the 52nd percentile. 2. No gross anomalies observed. Kori Booker MD [facility] Obstetrics and Gynecology [facility] Narrative 09/03/2020 4:32 PM PROTECTIVE SIGNAL INSTALLER HELPER ealth [facility] Obstetrics and Gynecology ?? ULTRASOUND - OB FOLLOW UP > 14 Weeks- Tr ansabdominal ?? Referring Provider: MARLENY Garcia ?? INDICATIONS FOR ULTRASOUND: OB History: Present Conditions: third tr-screen (EFW ) ?? CLINICAL INFORMATION ?? LMP: ??14 December 20 ??- sure EDC: ??Sep 30 ?EGA: ??36w 4d ?? Previous US: Yes ?? EDC: Sep 30 correspond ?? Soledad Eugenejodie YARELI IMAlbertina US ORDERABLES documented in this encounter Visit Diagnoses Diagnosis Encounter for supervision of normal firs t in third trimester Supervision of normal first documented in this encounter Additional Health Concerns Assessment Noted Time PHQ-9 Depression Total Score: 5 12/06/2020 7:02 AM CDT documented as of this encounter Care Teams Spring Former Hand Relationship Specialty Start Date End Date Blank Lemos MD PCP - General Internal Medicine 04/22/[address] [place] [address] KISHAN RENO [phone] Blank Lemos MD Assigned PCP 04/25/[address] [place] [address] KISHAN RENO [phone] Kathleen Lacy CNM Assigned OBGYN Provider 06/01/20 11/23/21 [place] [id number] documented as of this encounter
--- OUTSIDE RECORDS SUMMARY | 2022-04-09 07:17 | XMS_ITS | Encounter Summary ---
:1990 Author Organization [place] Address [facility] [place] [address] Care Team Providers Name Role Phone Blank Lemos MD Primary Care Provider Blank Lemos MD Unavailable Kathleen Lacy Unavailable Encounter Details Date Type Department Care Team Description 09/28/2020 Telephone [facility] Kathleen Lacy CNM [facility] [place] [address] [facility] [address] [place] [address] [address] [place] [address] [phone] Social History Tobacco Use Types Packs/Day Years [...] been in contact with No / Unsure 09/24/2020 2:11 PM 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 LD notified. 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 Denies bleeding or lof. Reports she hasn't felt baby move as much in the last hour but has felt movement. Reports she still has some mucus-like discharge as noted earlier this morning. Reviewed s/s early labor. recommended increased hydration, having a snack, rest, and a warm/shower bath. Encouraged to time contractions. Recommended coming to LD for assessment once contractions are about every 4 mins apart for an hour or more. She feels comfortable with this plan and will continue to monitor at home for now. Kathleen Lacy APRN, CNM R PRODUCTION WORKER Telephone Encounter - Kathleen Lacy CNM - 09/28/2020 5:22 AM CST Rena paged cable installation technician CNM stating that she just lost a large amount of vaginal discharge that was mucus-like in consistency. Denies ctx, bleeding, or lof. Reports good movement. States this happened 20mins ago. Discussed likely she lost her mucus plug. Counseled to put on a new pad and monitor.She will call if she continues to leak. Discussed s/s SROM. Kathleen Lacy APRN, CNM R PRODUCTION WORKER documented in this encounter Plan of Treatment Not on filedocumented as of this encounter Visit Diagnoses Not on filedocumented in this encounter Additional Health Concerns Assessment Noted Time PHQ-9 Depression Total Score: 5 12/06/2020 7:02 AM CDT documented as of this encounter Care Teams Carpet Jack Relationship Specialty Start Date End Date Blank Lemos MD PCP - General Internal Medicine 04/22/[address] [place] [address] KISHAN RENO [phone] Blank Lemos MD Assigned PCP 04/25/[address] [place] [address] KISHAN RENO [phone] Kathleen Lacy CNM Assigned OBGYN Provider 06/01/20 11/23/21 [place] [address] documented as of this encounter
--- OUTSIDE RECORDS SUMMARY | 2022-04-09 07:17 | XMS_ITS | Encounter Summary ---
:1990 Author Organization [place] Address [facility] [place] [address] Care Team Providers Name Role Phone Blank Lemos MD Primary Care Provider Blank Lemos MD Unavailable Kathleen Lacy CNM Unavailable Reason for Visit Auth/Cert Specialty Diagnoses / Procedures Referred By Contact Refer red To Contact test specialist Diagnoses Indication for care in labor or delivery Indication for care in labor or delivery Rh Procedures L AND D [address] [place], [place] [address] Phone: Fax: Referral ID Status Reason Start Date Expiration Date Visits Requ ested Visits Authorized [id number] 1 1 Encounter Details Date Type Department Care Team Description 09/28/2020 Anesthesia Event [facility] Narinder Franklin PeriOp Services MD Vinicio [address] [place] [address] AN[address] [place] [address] [place], [place] [address] (Wo rk) Anesthesia Record Procedure Summary Procedure Name Responsible Anesthesia Start Anesthesia Stop Time Anesthesiologist Time SECTION Narinder Franklin MD 09/28/2019462054 (N/A Abdomen) Events Date Time Event Comment 09/28/20201946 An Start 1946 An Start Data 1950 An Induction 1949 MD Present 1951 MD Present 1952 MD Present 2009 Baby Delivered 2020 MD Present 2042 MD Present 2045 an stop data 2054 An Stop Electronically s igned by Annalise Lux APRN CRNA on September 28 8:55 PM Name Total morphine PF 1mg/mL 3 mg glycopyrrolate 0.2mg/mL 0.1 mg dexamethasone 4mg/mL 4 mg lidocaine 2% with EPINEPHrine 1:200,000 15 mL oxytocin 30 units in 500 mL 0.9% NaCl infusion 500 mL ondansetron (ZOFRAN) injection 4 mg 4 mg ceFAZolin (ANCEF) 2 g in D5W intermittent infusion PRE -MIX 2 g phenylephrine 0.1 mg/ml infusion (mcg/min) 3,100 mcg ketorolac 30mg/mL 30 mg lactated ringers infusion 0 mL Agents Name NO HELIOX O2 N2O Air Exp Sevoflurane Exp Isoflurane Exp Desflurane Exp N2O Ins Sevoflurane Ins Isoflurane Ins Desflurane O2 Auxiliary Blood No blood administrations on file. Lines, Drains, and Airways Type Details Placement Removal Incision/Surgical Site 09/28/20; 2052; 09/28/202052 by Honey Vivas RN Peripheral IV 09/28/20; 0904; 18 G; 09/28/20 0904 by 09/30/20 1205 by Ananda, Glenda, Ambreen Medina RN Seavey, Cy nthia A, Left; Lower forearm; RN Injectable; Tolerated well Intrathecal/Epidural 09/28/20; 0942; 09/28/20 0942 by 09/28/20 2 045 by Catheter Epidural; Tip intact Lawrence Kimble, Annalise Mcgee APRN CRNA Urethral Catheter 09/28/20; 1130 09/28/20 1130 by 09/29/20 1030 by Kathleen Hurley RN Huble, Julie Ann, RN documented in this encounter Social History Tobacco Use Types Packs/Day Years [...] with No / Unsure 09/28/2020 8:47 AM 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 documented as of this encounter OR Notes Anesthesia Postprocedure Evaluation - Narinder Franklin MD - 10/10/2020 8:11 AM CST Patient: Rena Turner Procedure(s): SECTION Diagnosis:Failure to progress in labor [O62.2] Diagnosis Additional Information: No value filed. Anesthesia Type: Epidural Note: Disposition: Inpatient Postop Pain Control: Uneventful Sign Out: Well controlled pain PONV: No Neuro/Psych: Uneventful Sign Out: Acceptable/Baseline neuro status Airway/Respiratory: Uneventful Sign Out: Acceptable/Baseline resp. status CV/Hemodynamics: Uneventful Sign Out: Acceptable CV status Other NRE: DID A NON-ROUTINE EVENT OCCUR? Last vitals: Vitals: 09/29/20 1641 09/29/20 2320 09/30/20 0940 BP: 94/61 96/61 118/72 Pulse: 83 74 76 Resp: 16 16 18 Temp: 98.4 ??F (36.9 ??C) 98.2 ??F (36.8 ??C) 98.2 ??F (36.8 ??C) SpO2: Last vitals prior to Anesthesia Care Transfer: FLUTE POLISHER VITALS 09/28/2020 2016 - 09/28/2020 2116 09/28/2020 Pulse: 105 SpO2: 99 % Electronically Signed By: Narinder Franklin MD October 10, 2020 8:11 AM SHOP ESTIMATOR Anesthesia Postprocedure Evaluation - Narinder Franklin MD - 10/10/2020 8:10 AM CST Patient: Rena Turner Procedure(s): SECTION Diagnosis:Failure to progress in labor [O62.2] Diagnosis Additional Information: No value filed. Anesthesia Type: Epidural Note: Anesthesia Post Evaluation Last vitals: Vitals: 09/29/20 1641 09/29/20 2320 09/30/20 0940 BP: 94/61 96/61 118/72 Pulse: 83 74 76 Resp: 16 16 18 Temp: 98.4 ??F (36.9 ??C) 98.2 ??F (36.8 ??C) 98.2 ??F (36.8 ??C) SpO2: Last vitals prior to Anesthesia Care Transfer: FLUTE POLISHER VITALS 09/28/2020 2016 - 09/28/2020211509/28/2020 Pulse: 105 SpO2: 99 % Electronically Signed By: Narinder Franklin MD October 10, 2020 8:10 AM SHOP ESTIMATOR Anesthesia Preprocedure Evaluation - Narinder Franklin MD - 09/28/2020 6:55 PM CST Anesthesia Pre-Procedure Evaluation Patient: Rena Turner : 1990 Preoperative Diagnosis: Failure to progress in labor [O62.2] Procedure : Procedure(s): SECTION Past Medical History: Diagnosis Date ??? Abnormal [...] found, no interventions. Pt thinks this happened 0826-2000 ??? TONSILLECTOMY Allergies Allergen Reactions ??? Doxycycline Other (See Comments) and Nausea and Vomiting Social History Tobacco Use ??? Smoking status: Former Smoker Packs/day: 0.25 Years: 8.00 Pack years: 2.00 Types: Cigarettes Quit date: 06/24/2019 Years since quittin.2 ??? Smokeless tobacco: Never Used Substance Use Topics ??? Alcohol use: No Alcohol/week: 0.0 standard drinks Wt Readings from Last 1 Encounters: 09/28/20 112.9 kg (249 lb) Anesthesia Evaluation Pt has had prior anesthetic. Type: General. No history of anesthetic complications ROS/MED HX ENT/Pulmonary: (+) FERMIN risk factors, obese, allergic rhinitis, tobacco use, Past use, (-) asthma, COPD and recent URI Neurologic: (+) migraines, (-) no seizures and no CVA Cardiovascular: - neg cardiovascular ROS (-) hypertension, CAD, arrhythmias and valvular problems/murmurs METS/Exercise Tolerance: Hematologic: Comments: Lab Test 07/09/20 07/09/20 02/20/20 1921 0929 0908 WBC 14.3* 12.4* 11.3* HGB 12.5 11.8 12.9 MCV 98 99 95 PLT 328 321 350 Lab Test 07/09/20 05/21/20 12/22/16 1921 0956 1015 NA 138 139 143 POTASSIUM 3.3* 4.0 4.2 CHLORIDE 106 108 112* CO2 25 21 23 BUN 4* 5* 13 CR 0.62 0.58 0.72 ANIONGAP 7 10 8 KANA 9.3 8.9 9.2 GLC 117* 110* 82 - neg hematologic ROS Musculoskeletal: - neg musculoskeletal ROS GI/Hepatic: - neg GI/hepatic ROS (-) GERD Renal/Genitourinary: - neg Renal ROS Endo: (+) Obesity, (-) Type I DM, Type II DM, thyroid disease and chronic steroid usage Psychiatric/Substance Use: (+) psychiatric history anxiety, depression and bipolar Infectious Disease: - neg infectious disease ROS Malignancy: - neg malignancy ROS Other: (+) Possibly , LMP: FTP, , Physical Exam Airway Mallampati: III TM distance: > 3 FB Neck ROM: full Mouth opening: > 3 cm Respiratory Devices and Support Dental no notable dental history Cardiovascular cardiovascular exam normal Pulmonary pulmonary exam normal OUTSIDE LABS: CBC: Lab Results Component Value Date WBC 14.3 (H) 07/09/2020 WBC 12.4 (H) 07/09/2020 HGB 12.5 07/09/2020 HGB 11.8 07/09/2020 HCT 37.7 07/09/2020 HCT 36.6 07/09/2020 PLT 328 07/09/2020 PLT 321 07/09/2020 BMP: Lab Results Component Value Date NA 138 07/09/2020 NA 139 05/21/2020 POTASSIUM 3.3 (L) 07/09/2020 POTASSIUM 4.0 05/21/2020 CHLORIDE 106 07/09/2020 CHLORIDE 108 05/21/2020 CO2 25 07/09/2020 CO2 21 05/21/2020 BUN 4 (L) 07/09/2020 BUN 5 (L) 05/21/2020 CR 0.62 07/09/2020 CR 0.58 05/21/2020 GLC 117 (H) 07/09/2020 GLC 110 (H) 05/21/2020 COAGS: No results found for: PTT, INR, FIBR POC: Lab Results Component Value Date HCG Negative 10/07/2018 HEPATIC: Lab Results Component Value Date ALBUMIN 2.6 (L) 05/21/2020 PROTTOTAL 6.4 (L) 05/21/2020 ALT 18 05/21/2020 AST 14 05/21/2020 ALKPHOS 73 05/21/2020 BILITOTAL 0.2 05/21/2020 OTHER: Lab Results Component Value Date A1C 5.2 02/24/2020 KANA 9.3 07/09/2020 TSH 2.05 02/24/2020 Anesthesia Plan ASA Status: 3 NPO Status: ELEVATED Aspiration Risk/Unknown Anesthesia Type: Epidural. Consents Anesthesia Plan(s) and associated risks, benefits, and realistic alternatives discussed. Questions answered and patient/congressional representative(s) expressed understanding. - Discussed with: Patient Postoperative Care Pain management: IV analgesics, Neuraxial analgesia. PONV prophylaxis: Ondansetron (or other 5HT-3), Dexamethasone or Solumedrol Comments: Narinder Franklin MD SHOP ESTIMATOR documented in this encounter Miscellaneous Notes Anesthesia Care Transfer Note - Annalise Lux APRN CRNA - 09/28/2020 8:55 PM CST Patient: Rena Turner Procedure(s): SECTION Diagnosis: Failure to progress in labor [O62.2] Diagnosis Additional Information: No value filed. Anesthesia Type: Epidural Note: Oropharynx: oropharynx clear of all foreign objects Level of Consciousness: awake Oxygen Supplementation: room air Independent Airway: airway patency satisfactory and stable Dentition: dentition unchanged Vital Signs Stable: post-procedure vital signs reviewed and stable Report to RN Given: handoff report given Patient transferred to: Labor and Delivery Handoff Report: Identifed the Patient, Identified the Reponsible Provider, Reviewed the pertinent medical history, Discussed the surgical course, Reviewed Intra-OP anesthesia mangement and issues during anesthesia, Set expectations for post-procedure period and Allowed opportunity for questions and acknowledgement of understanding Vitals: (Last set prior to Anesthesia Care Transfer) FLUTE POLISHER VITALS 09/28/20202015 - 09/28/2020205409/28/2020 Pulse: 105 SpO2: 99 % Electronically Signed By: Annalise Lux APRN CRNA September 28, 2020 8:55 PM SHOP ESTIMATOR documented in this encounter Plan of Treatment Not on filedocumented as of this encounter Visit Diagnoses Not on filedocumented in this encounter Administered Medications Inactive Administered Medications - up to 3 most recent administrations Medication Order MAR Action Action Date Dose Rate Site ceFAZolin (ANCEF) intermittent Given 09/28/2020 7:53 PM BODY SHOP ESTIMATOR 2 g infusion 2 g in 100 mL dextrose PRE-MIX Routine, PRN, Starting on Thu09/28/20 at 1953, Anesthesia Intra-op dexamethasone (DECADRON) injection Given 09/28/2020 7:52 PM BODY SHOP ESTIMATOR 4 mg PRN, Administer over 1 Minutes, Starting on Thu09/28/20 at 1951, Anesthesia Intra-op glycopyrrolate (ROBINUL) injection Given 09/28/2020 7:52 PM BODY SHOP ESTIMATOR 0.1 mg PRN, Administer over 1-2 Minutes, Starting on Thu09/28/20 at 1951, Anesthesia Intra-op ketorolac (TORADOL) injection Given 09/28/2020 8:44 PM BODY SHOP ESTIMATOR 30 mg PRN, Administer over 2 Minutes, Starting on Thu09/28/20 at 2044, Anesthesia Intra-op lidocaine 2%-EPINEPHrine 1:200,000 injec tion Given 09/28/2020 7:50 PM BODY SHOP ESTIMATOR 15 mLs EPIDURAL, PRN, Starting on Thu09/28/20 at 1950, Anesthesia Intra-op morphine (PF) (DURAMORPH) injection Given 09/28/2020 8:13 PM BODY SHOP ESTIMATOR 3 mg Intrathecal, PRN, Administer over 4-5 Minutes, Starting on Thu09/28/20 at 2013, Anesthesia Intra-op ondansetron (ZOFRAN) injection 4 mg Given 09/28/2020 7:52 PM BODY SHOP ESTIMATOR 4 mg 4 mg, Intravenous, EVERY 6 HOURS PRN, nausea, vomiting, Administer over 2-5 Minutes, Starting on Thu09/28/20 at 0746, If nausea not resolved in 15 minutes, notify provider before proceeding to prochlorperazine (COMPAZINE) [if ordered]. Irritant. For ordered IV doses 0.1-4 mg, give IV Push undiluted over 2-5 minutes. oxytocin (PITOCIN) 30 units in 500 mL 0.9% Given 09/28/2020 8:11 PM BODY SHOP ESTIMATOR 500 mLs NaCl infusion Intravenous, PRN, Starting on Thu09/28/20 at 2011, Anesthesia Intra-op phenylephrine (ZULMA-SYNEPHRINE) New Bag 09/28/2020 7:53 PM 50 mcg/m in 30 mL/hr injection BODY SHOP ESTIMATOR Intravenous, CONTINUOUS PRN, Starting on Thu09/28/20 at 1953, Anesthesia Intra-op documented in this encounter Additional Health Concerns Assessment Noted Time PHQ-9 Depression Total Score: 5 12/06/2020 7:02 AM CDT documented as of this encounter Care Teams Teamcenter Consultant Relationship Specialty Start Date End Date Blank Lemos MD PCP - General Internal Medicine 04/22/18 [address] [facility] KISHAN RENO [phone] Blank Lemos MD Assigned PCP 04/25/18 [address] [facility] KISHAN RENO [phone] Kathleen Lacy CNM Assigned OBGYN Provider 06/01/20 11/23/21 [address] [place] [address] documented as of this encounter
--- OUTSIDE RECORDS SUMMARY | 2022-04-09 07:17 | XMS_ITS | Encounter Summary ---
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 documented as of this encounter Plan of Treatment Not on filedocumented as of this encounter Visit Diagnoses Not on filedocumented in this encounter Additional Health Concerns Assessment Noted Time PHQ-9 Depression Total Score: 5 12/06/2020 7:02 AM CDT documented as of this encounter Care Teams Magazine Hand Relationship Specialty Start Date End Date Blank Lemos MD PCP - General Internal Medicine 04/22/[address] [place] [address] KISHAN RENO [phone] Blank Lemos MD Assigned PCP 04/25/[address] [place] [address] KISHAN RENO [phone] Kathleen Lacy CNM Assigned OBGYN Provider 06/01/20 11/23/21 Cipriano Rivera [place] [address] documented as of this encounter
--- OUTSIDE RECORDS SUMMARY | 2022-04-09 07:17 | XMS_ITS | Encounter Summary ---
:1990 Author Organization [place] Address [address] [place] [address] Care Team Providers Name Role Phone Blank Lemos MD Primary Care Provider Blank Lemos MD Unavailable Kathleen LacyM Unavailable Encounter Details Date Type Department Care Team Description 09/17/2020 Travel Social History Tobacco Use Types Packs/Day [...] been in contact with No / Unsure 09/17/2020 1:55 PM CUFFER someone who was confirmed or suspected to have Coronavirus / COVID-19? documented as of this encounter Plan of Treatment Not on filedocumented as of this encounter Visit Diagnoses Not on filedocumented in this encounter Additional Health Concerns Assessment Noted Time PHQ-9 Depression Total Score: 5 12/06/2020 7:02 AM CDT documented as of this encounter Care Teams Sewer Line Photo Inspector Relationship Specialty Start Date End Date Blank Lemos MD PCP - General Internal Medicine 04/22/[address] [place] [address] KISHAN RENO [phone] Blank Lemos MD Assigned PCP 04/25/[address] [place] [address] KISHAN RENO [phone] Kathleen Lacy CNM Assigned OBGYN Provider 06/01/20 11/23/21 Cipriano Rivera [place] [id number] documented as of this encounter
--- OUTSIDE RECORDS SUMMARY | 2022-04-09 07:17 | XMS_ITS | Encounter Summary ---
:1990 Author Organization [place] Address [address] [place] [address] Care Team Providers Name Role Phone Blank Lemos MD Primary Care Provider Blank Lemos MD Unavailable Kathleen Lacy CNM Unavailable Encounter Details Date Type Department Care Team Description 09/24/2020 Travel Social History Tobacco Use Types Packs/Day [...] with No / Unsure 09/24/2020 2:11 PM WARP DOFFER someone who was confirmed or suspected to have Coronavirus / COVID-19? documented as of this encounter Plan of Treatment Not on filedocumented as of this encounter Visit Diagnoses Not on filedocumented in this encounter Additional Health Concerns Assessment Noted Time PHQ-9 Depression Total Score: 5 12/06/2020 7:02 AM CDT documented as of this encounter Care Teams Hot Knife Foxing Cutter Relationship Specialty Start Date End Date Blank Lemos MD PCP - General Internal Medicine 04/22/[address] [place] [address] KISHAN RENO [phone] Blank Lemos MD Assigned PCP 04/25/[address] [place] [address] KISHAN RENO [phone] Kathleen Lacy CNM Assigned OBGYN Provider 06/01/20 11/23/21 Cipriano Rivera [place] [id number] documented as of this encounter
--- OUTSIDE RECORDS SUMMARY | 2022-04-09 07:17 | XMS_ITS | Encounter Summary ---
:1990 Author Organization [place] Address [facility] [place] [address] Care Team Providers Name Role Phone Blank Lemos MD Primary Care Provider Blank Lemos MD Unavailable Kathleen Lacy CNM Unavailable Reason for Visit Reason Onset Date Comments Appointment 08/27/2020 need to schedule f/u Encounter Details Date Type Department Care Team Description 08/27/2020 Telephone [facility] Blank Lemosma nt (need to Clinic Dev Camp MD schedule f/u ) [address] [facility] [address] [place] [address] [place] [address] [phone] Social History Tobacco Use Types Packs/Day Years [...] with No / Unsure 09/28/2020 8:47 AM HEAD OF CONSERVATION someone who was confirmed or suspected to have Coronavirus / COVID-19? documented as of this encounter Miscellaneous Notes Telephone Encounter - Nahed Carrillo MA - 10/08/2020 10:05 AM CST See below; closing encounter. VITALY ALEJANDRO MA on 10/08/2020 at 10:05 AM OF CONSERVATION Telephone Encounter - Melodie Curiel - 08/29/2020 12:18 PM CST Sent [employer] message that patient has appt for a physical in December with Dr. Lemos. OF CONSERVATION Telephone Encounter - Nahed Carrillo MA - 08/27/2020 2:[address] Lemos: Schedule follow up physical in November/December. I left message for patient to return call. VITALY ALEJANDRO MA on 08/27/2020 at 2:28 PM OF CONSERVATION documented in this encounter Plan of Treatment Not on filedocumented as of this encounter Visit Diagnoses Not on filedocumented in this encounter Additional Health Concerns Assessment Noted Time PHQ-9 Depression Total Score: 5 12/06/2020 7:02 AM CDT documented as of this encounter Care Teams Plastic Technician Relationship Specialty Start Date End Date Blank Lemos MD PCP - General Internal Medicine 04/22/18 [address] [facility] [address] MÉNDEZ, KISHAN [phone] Blank Lemos MD Assigned PCP 04/25/18 [address] [facility] KISHAN RENO [phone] Kathleen Lacy CNM Assigned OBGYN Provider 06/01/20 11/23/21 [address] [place] [address] documented as of this encounter
--- OUTSIDE RECORDS SUMMARY | 2022-04-09 07:17 | XMS_ITS | Encounter Summary ---
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 documented as of this encounter Plan of Treatment Not on filedocumented as of this encounter Visit Diagnoses Not on filedocumented in this encounter Additional Health Concerns Assessment Noted Time PHQ-9 Depression Total Score: 5 12/06/2020 7:02 AM CDT documented as of this encounter Care Teams Plug Shaper Hand Relationship Specialty Start Date End Date Blank Lemos MD PCP - General Internal Medicine 04/22/[address] [place] [address] KISHAN RENO [phone] Blank Lemos MD Assigned PCP 04/25/[address] [place] [address] [place] [phone] Kathleen Lacy CNM Assigned OBGYN Provider 06/01/20 11/23/21 [address]ipri[address] Rivera [place] [id number] documented as of this encounter
--- OUTSIDE RECORDS SUMMARY | 2022-04-09 07:17 | XMS_ITS | Encounter Summary ---
:1990 Author Organization [place] Address [address] [place] [address] Care Team Providers Name Role Phone Blank Lemos MD Primary Care Provider Blank Lemos MD Unavailable Kathleen LacyM Unavailable Encounter Details Date Type Department Care Team Description 09/10/2020 Travel Social History Tobacco Use Types Packs/Day [...] been in contact with No / Unsure 09/10/2020 8:39 AM DIETARY ASSISTANT someone who was confirmed or suspected to have Coronavirus / COVID-19? documented as of this encounter Plan of Treatment Not on filedocumented as of this encounter Visit Diagnoses Not on filedocumented in this encounter Additional Health Concerns Assessment Noted Time PHQ-9 Depression Total Score: 5 12/06/2020 7:02 AM CDT documented as of this encounter Care Teams Hauling Contractor Relationship Specialty Start Date End Date Blank Lemos MD PCP - General Internal Medicine 04/22/[address] [place] [address] KISHAN RENO [phone] Blank Lemos MD Assigned PCP 04/25/[address] [place] [address] K[place] RENO [phone] Kathleen Lacy CNM Assigned OBGYN Provider 06/01/20 11/23/21 Cipriano Rivera [place] [id number] documented as of this encounter
--- OUTSIDE RECORDS SUMMARY | 2022-04-09 07:17 | XMS_ITS | Encounter Summary ---
:1990 Author Organization [place] Address [address] [facility] [place] [address] Care Team Providers Name Role Phone Blank Lemos MD Primary Care Provider Blank Lemos MD Unavailable Kathleen Lacy CNM Unavailable Reason for Visit Reason Comments Care 39 weeks and 4 days Encounter Details Date Type Department Care Team Description 09/24/2020 Office [facility] Rand Kam h-risk , third trimester (Primary Dx); [facility], GINNY CNM [facility] [place] [address] Excessive weight gain affect ing [address] [place] [address] [place], [place] [address] [address] [place], [place] [phone] (Work) [phone] Social History Tobacco Use Types Packs/Day Years [...] with No / Unsure 09/24/2020 2:11 PM SENIOR ENVIRONMENTAL CONSULTANT someone who was confirmed or suspected to have Coronavirus / COVID-19? documented as of this encounter Last Filed Vital Signs Vital Sign Reading Time Taken Comments Blood Pressure 128/86 09/24/2020 2:13 PM SENIOR ENVIRONMENTAL CONSULTANT Pulse - - Temperature - - Respiratory Rate - - Oxygen Saturation - - Inhaled Oxygen Concentration - - Weight 112.9 kg (249 lb) 09/24/2020 2:13 PM SENIOR ENVIRONMENTAL CONSULTANT Height - - Body Mass Index 44.11 04/09/2020 1:36 PM CDT documented in this encounter Progress Notes Rand Kam APRN CNM - 09/24/2020 2:15 PM CST Rena Turner presents to clinic alone at 39w4d for a routine appointment. She reports she is feeling well and has no concerns. Normal movement. Denies bleeding, LOF, or regular, painful contractions. [place] like labor might be starting Thursday and again last night, but contractions spaced out again. Denies headache / vision changes / RUQ pain. ??? Reviewed total weight gain of 15 kg (33 lb). Above range for expected total weight gain of 5 kg (11 lb)-9 kg (19 lb), but stable over last 4-5 weeks. ??? Size-dates discrepancy: Growth ultrasound WNL (52%ile for growth) checklist updated. Reviewed discussion of options for IOL vs postdates management at next visit. Warning signs reviewed. RTC in 1 week, sooner if problems. OR ENVIRONMENTAL CONSULTANT documented in this encounter Nursing Notes Gonzalez Mitchell MA - 09/24/2020 2:15 PM CST Chief Complaint Patient presents with ??? Care 39 weeks and 4 days Initial BP 128/86 (BP Location: Left arm, Cuff Size: Adult Regular) Wt 112.9 kg (249 lb) LMP 12/22/2019 BMI 44.11 kg/m?? Estimated body mass index is 44.11 kg/m?? as calculated from the following: Height as of 04/09/20: 1.6 m (5' 3). Weight as of this encounter: 112.9 kg (249 lb). BP completed using cuff size: regular Questioned patient about current smoking habits. Pt. has never smoked. +FM OR ENVIRONMENTAL CONSULTANT documented in this encounter Plan of Treatment Not on filedocumented as of this encounter Visit Diagnoses Diagnosis High-risk , third trimester - P rimary Uterine size-date discrepancy in third t rimester Uterine size date discrepancy, antepartu m condition or complication Excessive weight gain affecting pregnanc y documented in this encounter Additional Health Concerns Assessment Noted Time PHQ-9 Depression Total Score: 5 12/06/2020 7:02 AM CDT documented as of this encounter Care Teams Big Data Lead Relationship Specialty Start Date End Date Blank Lemos MD PCP - General Internal Medicine 04/22/[address] [place] [address] [place] R[place] [phone] Blank Lemos MD Assigned PCP 04/25/[address] [place] [address] [place] R[place] [phone] Kathleen Lacy CNM Assigned OBGYN Provider 06/01/20 11/23/21 [place] [address] documented as of this encounter
--- OUTSIDE RECORDS SUMMARY | 2022-04-09 07:17 | XMS_ITS | Encounter Summary ---
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 documented as of this encounter Plan of Treatment Not on filedocumented as of this encounter Visit Diagnoses Not on filedocumented in this encounter Additional Health Concerns Assessment Noted Time PHQ-9 Depression Total Score: 10 02/02/2020 8:23 AM CD T documented as of this encounter Care Teams Supply Chain Program Manager Relationship Specialty Start Date End Date Blank Lemos MD PCP - General Internal Medicine 04/22/[address] [place] [address] KISHAN RENO [phone] Blank Lemos MD Assigned PCP 04/25/[address] [place] [address] [place] R[place] [phone] Kathleen Lacy CNM Assigned OBGYN Provider 06/01/20 11/23/21 C[address]ri[address] Rivera [place] [id number] documented as of this encounter
--- OUTSIDE RECORDS SUMMARY | 2022-04-09 07:17 | XMS_ITS | Encounter Summary ---
:1990 Author Organization [place] Address [facility] [place] [address] Care Team Providers Name Role Phone Blank Lemos MD Primary Care Provider Blank Lemos MD Unavailable Kathleen Lacy CNM Unavailable Reason for Visit Auth/Cert Specialty Diagnoses / Procedures Referred By Contact Refer red To Contact forest technology professor Diagnoses Indication for care in labor or delivery Indication for care in labor or delivery Rh Procedures L AND D [address] [place], [place] [address] Phone: Fax: Referral ID Status Reason Start Date Expiration Date Visits Requ ested Visits Authorized [id number] 1 1 Encounter Details Date Type Department Care Team Description 09/28/2020 Anesthesia Event [facility] Lawrence Kimble, [facility] ANESTHESIA [address] [place], [place] [address] Birthplace Lorenzo Hernandez MD [facility] ANESTHESIA [address] [place], [place] [address] [address] [place] [phone] Anesthesia Record Procedure Summary Procedure Name Responsible Anesthesia Start Time Anesthesia Stop Time Anesthesiologist LABOR ANALGESIA Lawrence Kimble DO 09/28/20 0932 09/28/20 09 46 Events Date Time Event Comment 09/28/2020 0932 An Start 0943 Present 0946 An Stop Electronically s igned by Lawrence Varela. DO Shyanne on September 28, 2020 10:26 A M 1028 Quick Note .Anesthesiologis t [place] Monitoring Note. EMR/L&D RN communication of patient progress of labor. Anesthesiologist immediately available for management. R Shyanne No medications on file. Agents No agents on file. Blood No blood administrations on file. Lines, Drains, and Airways Type Details Placement Removal Peripheral IV 09/28/20; 0904; 18 G; 09/28/20 0904 by 09/30/20 1205 by Anterior, Glenda, Ambreen Medina, Everett Oswald nthia A, Left; Lower forearm; RN Injectable; Tolerated well Intrathecal/Epidural 09/28/20; 0942; 09/28/20 0942 by 09/28/20 2 045 by Catheter Epidural; Tip intact Lawrence Kimble DO Maas, Tracy M, APRN CERTIFIED PERSONAL FINANCE COUNSELOR documented in this encounter Social History Tobacco [...] with No / Unsure 09/28/2020 8:47 AM COOK VEGETABLE someone who was confirmed or suspected to have Coronavirus / COVID-19? documented as of this encounter OR Notes Anesthesia Postprocedure Evaluation - Lawrence Kimble DO - 09/29/2020 10:19 AM CST Patient: Rena Turner * No procedures listed * Diagnosis:* No pre-op diagnosis entered * Diagnosis Additional Information: No value filed. Anesthesia Type: Epidural Note: Postop Pain Control: Uneventful Sign Out: Well controlled pain PONV: No Neuro/Psych: Uneventful Sign Out: Acceptable/Baseline neuro status Airway/Respiratory: Uneventful Sign Out: Acceptable/Baseline resp. status CV/Hemodynamics: Uneventful Sign Out: Acceptable CV status Other NRE: NONE DID A NON-ROUTINE EVENT OCCUR? No Event details/Postop Comments: Patient went to .Labor Epidural Post delivery note. Doing well. VSS Temp normal. Satisfactory respiratory and cardiovascular function. Return of neurologic function. Questions encouraged and answered. Denies positional headache. Minimal side effects easily managed w/ PRN meds. No apparent anesthetic complications. No follow-up required. I or my partner was immediately available for epidural management. Sandra Kimble Last vitals: Vitals: 09/29/20 0245 09/29/20 0348 09/29/20 0900 BP: 104/69 100/69 91/53 Pulse: 81 79 91 Resp: 16 Temp: 98.7 ??F (37.1 ??C) SpO2: 98% 97% 98% Last vitals prior to Anesthesia Care Transfer: Electronically Signed By: Lawrence Kimble DO September 29, 2020 10:19 AM VEGETABLE Anesthesia Procedure Notes - Lawrence Kimble DO - 09/28/2020 10:26 AM COOK VEGETABLE Associated Order(s): Epidural Block Pre-Procedure Staff - Anesthesiologist: Lawrence Kimble DO Performed By: anesthesiologist Referred By: Mallory DOWNS/Cristino WILKINSON Pre-Anesthestic Checklist: patient identified, site marked, risks and benefits discussed, informed consent, monitors and equipment checked, pre-op evaluation and at physician/surgeon's request Timeout: Correct Patient: Yes Correct Procedure: Yes Correct Site: Yes Correct Position: Yes Correct Laterality: N/A Site Marked: N/A Procedure DocumentationProcedure: epidural catheter Comments: .Diagnosis- Anticipated vaginal delivery Continuous Labor Epidural, indication is for labor pain. Following an discussion of the expectations, benefits and risk (including but not limited to nerve damage, infection, bleeding, spinal headache,partial or failed block)--questions were encouraged and answered. The patient appears to understand,and consents to proceed. The patient received a fluid bolus per orders Time-out performed. The patient was in the sitting position, a PVP prep times three was done in the lumbar area followedby placement of a sterile drape. The skin was then infiltrated with lidocaine. A 17ga Touhy needle was then advanced under a loss of resistance technique until the epidural space was identified. The epidural catheter was then advanced and secured. The catheter was then bolused in divided doses with Bupivicaine 0.25% 12 cc, while the patient/fetus was monitored. Infusion orders written and infusion ofbupivicaine 0.125% + fentanyl 2mcg/cc 10cc per hour started. PCEA 5cc bolus ever 15 minutes, with a maximum of 20cc per hour. I or my partner, was immediately available and frequently monitored at necessary intervals. Sandra Kimble VEGETABLE Anesthesia Preprocedure Evaluation - Lawrence Kimble DO - 09/28/2020 10:24 AM CST Anesthesia Pre-Procedure Evaluation Patient: Rena Turner : 1990 Preoperative Diagnosis: * No surgery found * Procedure : Past Medical History: Diagnosis Date ??? Abnormal [...] found, no interventions. Pt thinks this happened [id number] ??? TONSILLECTOMY Allergies Allergen Reactions ??? Doxycycline [...] 09/28/20 112.9 kg (249 lb) Anesthesia Evaluation ROS/MED HX ENT/Pulmonary: - neg pulmonary ROS Neurologic: - neg neurologic ROS Cardiovascular: - neg cardiovascular ROS METS/Exercise Tolerance: Hematologic: - neg hematologic ROS Musculoskeletal: - neg musculoskeletal ROS GI/Hepatic: - neg GI/hepatic ROS Renal/Genitourinary: - neg Renal ROS Endo: - neg endo ROS Psychiatric/Substance Use: (+) psychiatric history anxiety, depression and bipolar Infectious Disease: - neg infectious disease ROS Malignancy: - neg malignancy ROS Other: Comment: .Lab Test 07/09/20 07/09/20 02/20/201920 0929 0908 WBC 14.3* 12.4* 11.3* HGB 12.5 11.8 12.9 MCV 98 99 95 PLT 328 321 350 Lab Test 07/09/20 05/21/20 12/22/161 0956 1015 NA 138 139 143 POTASSIUM 3.3* 4.0 4.2 CHLORIDE 106 108 112* CO2 25 21 23 BUN 4* 5* 13 CR 0.62 0.58 0.72 ANIONGAP 7 10 8 KANA 9.3 8.9 9.2 GLC 117* 110* 82 - neg other ROS Physical Exam Airway Mallampati: II Neck ROM: full Respiratory Devices and Support Dental Cardiovascular cardiovascular exam normal Rhythm and rate: regular Pulmonary pulmonary exam normal Other findings: .Lab Test 07/09/20 07/09/20 02/20/201920 0929 0908 WBC 14.3* 12.4* 11.3* HGB 12.5 11.8 12.9 MCV 98 99 95 PLT 328 321 350 Lab Test 11/05/21/20 12/22/16 1921 0956 1015 NA 138 139 143 POTASSIUM 3.3* 4.0 4.2 CHLORIDE 106 108 112* CO2 25 21 23 BUN 4* 5* 13 CR 0.62 0.58 0.72 ANIONGAP 7 10 8 KANA 9.3 8.9 9.2 GLC 117* 110* 82 OUTSIDE LABS: CBC: Lab Results Component Value [...] 2.05 02/24/2020 Anesthesia Plan ASA Status: 3 Anesthesia Type: Epidural. Consents Anesthesia Plan(s) and associated risks, benefits, and realistic alternatives discussed. Questions answered and patient/wireless sales representative(s) expressed understanding. - Discussed with: Patient Postoperative Care Comments: BMI-44 Lawrence Kimble DO VEGETABLE documented in this encounter Miscellaneous Notes Addendum Note - Sydnie Frost - 10/01/2020 8:11 AM CST Addendum created 10/01/20 0811 by Sydnie Frost Charge Capture section accepted VEGETABLE Addendum Note - Lawrence Kimble DO - 09/29/2020 10:19 AM CST Addendum created 09/29/20 1019 by Lawrence Kimble DO Clinical Note Signed VEGETABLE documented in this encounter Plan of Treatment Not on filedocumented as of this encounter Procedures Procedure Name Priority Date/Time Associated Diagnosis Comme nts ANE EPIDURAL BLOCK Routine 09/28/2020 10:26 AM Re sults for this COOK VEGETABLE procedure are i n the results section. documented in this encounter Results FV AN EPIDURAL DUMMY PERFORMABLE (09/28/2020 10:26 AM COOK VEGETABLE) Narrative Lawrence Kimble DO - 09/28/2020 10:26 AM COOK VEGETABLE Lawrence Kimble DO ? 09/28/2020 10:28 AM Pre-Procedure Staff - Anesthesiologist: ??Lawrence Kimble DO Performed By: anesthesiologist Referred By: Mallory DOWNS/Cristino WILKINSON Pre-Anesthestic Checklist: patient ident ified, site marked, risks and benefits discussed, informed consent, mo nitors and equipment checked, pre-op evaluation and at physician/surge on's request Timeout: Correct Patient: Yes Correct Procedure: Yes Correct Site: Yes Correct Position: Yes Correct Laterality: N/A Site Marked: N/A Procedure DocumentationProcedure: epidur al catheter Comments: ??.Diagnosis- Anticipated vagi nal delivery Continuous Labor Epidural, indication is for labor pain. Following an discussion of the expectations, benefits and risk (including but not limited to nerve damage, infection, blee ding, spinal headache, partial or failed block)--questions were encouraged and answered. The patient appears to understand, and consents to proceed. The patient received a fluid bolus per o rders Time-out performed. The patient was in the sitting position, a PVP prep times three was done in the lumbar area followed by placement of a sterile drape. The skin was then infiltrated with lidocaine. A 17ga Touhy needle was then advanced under a loss of resistance technique unt il the epidural space was identified. The epidural catheter was th en advanced and secured. The catheter was then bolused in divided dos es with Bupivicaine 0.25% 12 cc, while the patient/fetus was monitored. I nfusion orders written and infusion of bupivicaine 0.125% + fentany l 2mcg/cc 10cc per hour started. PCEA 5cc bolus ever 15 minutes, with a m aximum of 20cc per hour. I or my partner, was immediately availab le and frequently monitored at necessary intervals. R Shyanne Lawrence Pickettborn DO [place] ANESTHESIA documented in this encounter Visit Diagnoses Not on filedocumented in this encounter Additional Health Concerns Assessment Noted Time PHQ-9 Depression Total Score: 5 12/06/2020 7:02 AM CDT documented as of this encounter Care Teams Corporate Real Estate Manager Relationship Specialty Start Date End Date Blank Lemos MD PCP - General Internal Medicine 04/22/[address] [place] [address] KISHAN RENO [phone] Blank Lemos MD Assigned PCP 04/25/[address] [place] [address] K[place] R[place] [phone] Kathleen Lacy CNM Assigned OBGYN Provider 06/01/20 11/23/21 [place] [address] documented as of this encounter
--- OUTSIDE RECORDS SUMMARY | 2022-04-09 07:17 | XMS_ITS | Encounter Summary ---
:1990 Author Organization [place] Address [facility] [place] [address] Care Team Providers Name Role Phone Blank Lemos MD Primary Care Provider Blank Lemos MD Unavailable Kathleen Lacy CNM Unavailable Reason for Visit Reason Comments Care Encounter Details Date Type Department Care Team Description 09/10/[address] [facility] Kathleen Lacy, High -risk , third trimester (Primary Dx); [facility] CNM Anxiety during in third trimes ter, antepartum [place] [address] [place], [place] [address] [address] [place], [place] [phone] [address] (Work) [phone] Social History Tobacco Use Types Packs/Day Years [...] with No / Unsure 09/10/2020 8:39 AM ADMINISTRATIVE SUPERVISOR someone who was confirmed or suspected to have Coronavirus / COVID-19? documented as of this encounter Last Filed Vital Signs Vital Sign Reading Time Taken Comments Blood Pressure 120/84 09/10/2020 8:42 AM ADMINISTRATIVE SUPERVISOR Pulse - - Temperature - - Respiratory Rate - - Oxygen Saturation - - Inhaled Oxygen Concentration - - Weight 113.9 kg (251 lb) 09/10/2020 8:42 AM ADMINISTRATIVE SUPERVISOR Height - - Body Mass Index 44.46 04/09/2020 1:36 PM CDT documented in this encounter Patient Instructions Patient InstructionsKathleen Lacy CNM - 09/10/2020 8:45 AM CST PREECLAMPSIA SIGNS AND SYMPTOMS Preeclampsia is a dangerous condition that some women develop in the second half of . It can also begin after the baby is born. Preeclampsia causes high blood pressure and can cause problems with many organ systems in your body. It can also affect the growth of your baby. The exact cause of preeclampsia is unknown, however, there are signs and symptoms to watch for: -A bad headache that doesn't improve with Tylenol -Visual changes such as spots, flashes of light, blurry vision -Pain in the upper right part of your abdomen, especially under the ribs that doesn't go away -Nausea and/or vomiting -Feeling extremely tired -Yellowing of the skin and/or eyes -Feeling not quite right or that something is wrong -An extreme amount of swelling (some swelling in is very normal) If your resin coater feels that you are developing preeclampsia, you will have lab tests drawn and will be monitored very closely. If you are experiencing anyof these symptoms, Call [facility] [phone] NISTRATIVE SUPERVISOR documented in this encounter Progress Notes Kathleen Lacy CNM - 09/10/2020 8:45 AM CST S: Feels well, Baby active. Denies uterine cramping, vaginal bleeding or leaking of fluid. No headache, increase in edema, no epigastric pain. O: Vitals: BP 120/84 (BP Location: Left arm, Cuff Size: Adult Regular) Wt 113.9 kg (251 lb) LMP 12/22/2019 BMI 44.46 kg/m?? BMI= Body mass index is 44.46 kg/m??. Exam: Constitutional: healthy, alert and no distress Respiratory: respirations even and unlabored Gastrointestinal: Abdomen soft, non-tender. Fundus measures appropriate for gestational age. heart tones hear without difficulty and within normal limits : Deferred Psychiatric: mentation appears normal and affect normal/bright A/P: 1. (O09.93) High-risk , third trimester (primary encounter diagnosis) 2. (O99.343, F41.9) Anxiety during in third trimester, antepartum - Stable on Lexapro, follows with psychology Labor signs and symptoms discussed, aware of numbers to call Discussed warning signs of PIH/preeclampsia and patient will monitor. GBS screen completed. Discussed plans for labor. Discussed patient options for contraception. Patient is planning minipill. Encouraged patient to call with any questions or concerns. Return to clinic 1 weeks Kathleen Lacy APRN, CNM NISTRATIVE SUPERVISOR documented in this encounter Nursing Notes Gonzalez Mitchell MA - 09/10/2020 8:45 AM CST Chief Complaint Patient presents with ??? Care Initial BP 120/84 (BP Location: Left arm, Cuff Size: Adult Regular) Wt 113.9 kg (251 lb) LMP 12/22/2019 BMI 44.46 kg/m?? Estimated body mass index is 44.46 kg/m?? as calculated from the following: Height as of 04/09/20: 1.6 m (5' 3). Weight as of this encounter: 113.9 kg (251 lb). BP completed using cuff size: regular Questioned patient about current smoking habits. Pt. has never smoked. +FM NISTRATIVE SUPERVISOR documented in this encounter Plan of Treatment Not on filedocumented as of this encounter Visit Diagnoses Diagnosis High-risk , third trimester - P rimary Anxiety during in third trimes ter, antepartum documented in this encounter Additional Health Concerns Assessment Noted Time PHQ-9 Depression Total Score: 5 12/06/2020 7:02 AM CDT documented as of this encounter Care Teams Channel Opener Outsoles Relationship Specialty Start Date End Date Blank Lemos MD PCP - General Internal Medicine 04/22/[address] [place] [address] K[place]AN RENO [id number] Blank Lemos MD Assigned PCP 04/25/[address] [place] [address] KISHAN RENO [id number] Kathleen aLcy CNM Assigned OBGYN Provider 06/01/20 11/23/21 KISHAN Sparks [id number] documented as of this encounter
--- OUTSIDE RECORDS SUMMARY | 2022-04-09 07:17 | XMS_ITS | Encounter Summary ---
:1990 Author Organization [place] Address [address] [facility] [place] [address] Care Team Providers Name Role Phone Blank Lemos MD Primary Care Provider Blank Lemos MD Unavailable Kathleen Lacy CN Unavailable Reason for Visit Reason Comments Care 38w 4d, review restrictions at hospital Encounter Details Date Type Department Care Team Description 09/17/2020 Office [facility] , Visit [facility] YARELI Rowe third trimester [place] [address] (Primary Dx) [address] [place], [place] [address] [address] [place], [place] [phone] [address] (Work) [phone] Social History Tobacco Use Types Packs/Day Years [...] with No / Unsure 09/17/2020 1:55 PM MICROBIOLOGICAL LABORATORY TECHNICIAN someone who was confirmed or suspected to have Coronavirus / COVID-19? documented as of this encounter Last Filed Vital Signs Vital Sign Reading Time Taken Comments Blood Pressure 124/76 09/17/2020 1:59 PM MICROBIOLOGICAL LABORATORY TECHNICIAN Pulse - - Temperature - - Respiratory Rate - - Oxygen Saturation - - Inhaled Oxygen Concentration - - Weight 113.4 kg (250 lb) 09/17/2020 1:59 PM MICROBIOLOGICAL LABORATORY TECHNICIAN Height - - Body Mass Index 44.29 04/09/2020 1:36 PM CDT documented in this encounter Progress Notes Soledad Jones CNM - 09/17/2020 2:00 PM CST S: Feels well, Baby active. Denies uterine cramping, vaginal bleeding or leaking of fluid. No headache, increase in edema, no epigastric pain. Currently home, able to quarantine Asking questions about COVID protocols which we discussed O: Vitals: BP 124/76 (BP Location: Right arm, Cuff Size: Adult Regular) Wt 113.4 kg (250 lb) LMP12/22/2019 BMI 44.29 kg/m?? BMI= Body mass index is 44.29 kg/m??. Exam: Constitutional: healthy, alert and no distress Respiratory: respirations even and unlabored Gastrointestinal: Abdomen soft, non-tender. Fundus measures S>D. heart tones heard without difficulty and within normal limits : Deferred Psychiatric: mentation appears normal and affect normal/bright A: ICD-10-CM 1. High-risk , third trimester O09.93 2. Excessive weight gain during in third trimester O26.03 P: Labor signs and symptoms discussed, aware of numbers to call Measuring S>D today, but had normal growth 2 weeks ago, will continue to monitor Discussed warning signs of PIH/preeclampsia and patient will monitor. GBS screen completed and negative. Discussed plans for labor. Discussed patient options for contraception. Patient is planning oral contraceptives Encouraged patient to call with any questions or concerns. Return to clinic 1 weeks H. Octavia Jones CNM 09/17/2020 2:15 PM OBIOLOGICAL LABORATORY TECHNICIAN documented in this encounter Nursing Notes Luz Maria Abreu - 09/17/2020 2:00 PM CST Chief Complaint Patient presents with ??? Care 38w 4d, review restrictions at hospital Initial BP 124/76 (BP Location: Right arm, Cuff Size: Adult Regular) Wt 113.4 kg (250 lb) LMP 12/22/2019 BMI 44.29 kg/m?? Estimated body mass index is 44.29 kg/m?? as calculated from the following: Height as of 04/09/20: 1.6 m (5' 3). Weight as of this encounter: 113.4 kg (250 lb). BP completed using cuff size: regular long Questioned patient about current smoking habits. Pt. quit smoking some time ago. The following Due: NONE Luz Maria Abreu CMA OBIOLOGICAL LABORATORY TECHNICIAN documented in this encounter Plan of Treatment Not on filedocumented as of this encounter Visit Diagnoses Diagnosis High-risk , third trimester - P rimary documented in this encounter Additional Health Concerns Assessment Noted Time PHQ-9 Depression Total Score: 5 12/06/2020 7:02 AM CDT documented as of this encounter Care Teams Contractor General Engineering Relationship Specialty Start Date End Date Blank Lemos MD PCP - General Internal Medicine 04/22/[address] [place] [address] KISHAN RENO [phone] Blank Leoms MD Assigned PCP 04/25/[address] [place] [address] K[place]AN RENO [id number] Kathleen Lacy CNM Assigned OBGYN Provider 06/01/20 11/23/21 [address] [place] [address] documented as of this encounter
--- OUTSIDE RECORDS SUMMARY | 2022-04-09 07:17 | XMS_ITS | Encounter Summary ---
:1990 Author Organization [place] Address [facility] [place] [address] Care Team Providers Name Role Phone Blank Lemos MD Primary Care Provider Blank Lemos MD Unavailable Kathleen Lacy CNM Unavailable Anabell Shannon Unavailable Unavailable Reason for Visit Reason Comments Video Visit [phone] Depression Encounter Details Date Type Department Care Team Description 08/27/2020 Virtual Visit [facility] Blank Lemos anxiety disorder; Clinic [place] MD Bipolar I disorder (H) [address] [facility] [address] [place] [address] [place] [address] Social History Tobacco Use Types Packs/Day Years [...] with No / Unsure 10/18/2020 2:11 PM INSURANCE AGENTS SUPERVISOR someone who was confirmed or suspected to have Coronavirus / COVID-19? documented as of this encounter Patient Instructions Patient InstructionsBlank Lemos MD - 08/27/2020 1:55 PM CST Zunilda Bauer to see you! I'm glad you are feeling good - good luck with the final weeks of your . I've refilled the lexapro for 6 months and then we will get a physical scheduled for you. Take care, Blank Lemos MD Internal Medicine/Pediatrics [facility] RANCE AGENTS SUPERVISOR documented in this encounter Progress Notes Blank Lemos MD - 08/27/2020 1:55 PM CST Rena is a 30 year old who is being evaluated via a billable video visit. How would you like to obtain your AVS? MyChart If the video visit is dropped, the invitation should be resent by: Text to cell phone: [phone] Will anyone else be joining your video visit? No Video Start Time: 1:59pm Assessment & Plan Generalized anxiety disorder Controlled - continue medication and follow up in 6 m - escitalopram (LEXAPRO) 20 MG tablet; Take 1 tablet (20 mg) by mouth daily Bipolar I disorder (H) As above - escitalopram (LEXAPRO) 20 MG tablet; Take 1 tablet (20 mg) by mouth daily Patient Instructions Hi Rena, Nice to see you! I'm glad you are feeling good - good luck with the final weeks of your . I've refilled the lexapro for 6 months and then we will get a physical scheduled for you. Take care, Blank Lemos MD Internal Medicine/Pediatrics [facility] Return in about 3 months (around 11/25/2020) for Routine preventive, with me, in person. Blank Lemos MD [facility] [place] Chase is a 30 year old who presents to clinic today for the following health issues HPI Depression and Anxiety Follow-Up ?? How are you doing with your depression since your last visit? stable ?? How are you doing with your anxiety since your last visit? stable ?? Are you having other symptoms that might be associated with depression or anxiety? No ?? Have you had a significant life event? No ?? Do you have any concerns with your use of alcohol or other drugs? No Patient is currently 35 weeks - she feels the best she has in a long time - only 2-3 daysthat she needed a mental health day. Social History Tobacco Use ??? Smoking status: Former Smoker Packs/day: 0.25 Years: 8.00 Pack years: 2.00 Types: Cigarettes Quit date: 06/24/2019 Years since quittin.1 ??? Smokeless tobacco: Never Used Substance Use Topics ??? Alcohol use: No Alcohol/week: 0.0 standard drinks ??? Drug use: No PHQ 12/08/2019 02/02/2020 08/27/2020 PHQ-9 Total Score 15 10 5 Q9: Thoughts of better off /self-harm past 2 weeks Not at all Not at all Not at all GABRIEL-7 SCORE 12/08/2019 02/02/2020 08/27/2020 Total Score - - 5 (mild anxiety) Total Score 19 14 5 Last PHQ-9 08/27/2020 1. Little interest or pleasure in doing things 1 2. Feeling down, depressed, or hopeless 0 3. Trouble falling or staying asleep, or sleeping too much 1 4. Feeling tired or having little energy 1 5. Poor appetite or overeating 0 6. Feeling bad about yourself 1 7. Trouble concentrating 1 8. Moving slowly or restless 0 Q9: Thoughts of better off /self-harm past 2 weeks 0 PHQ-9 Total Score 5 Difficulty at work, home, or with people - GABRIEL-7 08/27/2020 1. Feeling nervous, anxious, or on edge 1 2. Not being able to stop or control worrying 1 3. Worrying too much about different things 0 4. Trouble relaxing 1 5. Being so restless that it is hard to sit still 0 6. Becoming easily annoyed or irritable 2 7. Feeling afraid, as if something awful might happen 0 GABRIEL-7 Total Score 5 If you checked any problems, how difficult have they made it for you to do your work, take care of things at home, or get along with other people? - Suicide Assessment Five-step Evaluation and Treatment (SAFE-T) Review of Systems Constitutional, HEENT, cardiovascular, pulmonary, gi and gu systems are negative, except as otherwise noted. Objective Vitals: No vitals were obtained today due to virtual visit. Physical Exam GENERAL: Healthy, alert and no distress EYES: Eyes grossly normal to inspection. No discharge or erythema, or obvious scleral/conjunctival abnormalities. RESP: No audible wheeze, cough, or visible cyanosis. No visible retractions or increased work of breathing. SKIN: Visible skin clear. No significant rash, abnormal pigmentation or lesions. NEURO: Cranial nerves grossly intact. Mentation and speech appropriate for age. PSYCH: Mentation appears normal, affect normal/bright, judgement and insight intact, normal speech and appearance well-groomed. Video-Visit Details Type of service: Video Visit Video End Time:2:03pm Originating Location (pt. Location): Home Distant Location (provider location): [facility] [place] Platform used for Video Visit: [employer] RANCE AGENTS SUPERVISOR documented in this encounter Nursing Notes Nahed Carrillo MA - 08/27/2020 1:55 PM CST Left message for patient to return call to schedule follow up physical in November/December. VITALY ALEJANDRO MA on 08/27/2020 at 2:27 PM RANCE AGENTS SUPERVISOR documented in this encounter Plan of Treatment Not on filedocumented as of this encounter Visit Diagnoses Diagnosis Generalized anxiety disorder Bipolar I disorder (H) Bipolar I disorder, most recent episode (or current) unspecified documented in this encounter Additional Health Concerns Assessment Noted Time PHQ-9 Depression Total Score: 5 12/06/2020 7:02 AM CDT documented as of this encounter Care Teams [facility] Relationship Specialty Start Date End Date Blank Lemos, PCP - General Internal Medicine 04/22/[address] [place] [address] KISHAN RENO [phone] Blank Lemos, Assigned [facility]CP [facility] KISHAN RENO [phone] Kathleen Lacy CNM Assigned OBGYN Provider 06/01/20 11/23/21 [place] [address] Anabell Shannon Personal Advocate & 10/25/20 Liaison (PAL) documented as of this encounter
--- OUTSIDE RECORDS SUMMARY | 2022-04-09 07:17 | XMS_ITS | Encounter Summary ---
:1990 Author Organization [facility] Address [address] [place] [address] Care Team Providers Name Role Phone Blank Lemos MD Primary Care Provider Blank Lemos MD Unavailable Kathleen Lacy CNM Unavailable Reason for Visit Reason Comments Laboring Auth/Cert Specialty Diagnoses / Procedures Referred By Contact Refer red To Contact medical underwriter Diagnoses Indication for care in labor or delivery Indication for care in labor or delivery Rh Procedures L AND D [address] [place], [place] [address] Phone: Fax: Referral ID Status Reason Start Date Expiration Date Visits Requ ested Visits Authorized [id number] 1 1 Encounter Details Date Type Department Care Team Description 09/28/[address] [facility] Wendy Gregg, SECTION PeriOp Services DO [address] [address] [place] [address] [place], [place] [id number] (Wo rk) Surgery Details Date/Time Status Location OR Service Patient Class Case Case Trauma Class Type Case? 09/28/20 7:45 Posted RH OR OR 07 Obstetrics Inpatient PM Panel 1 Procedure LRB Anes Op Region Wound Class Commen ts SECTION N/A Epidural Abdomen II-Clean Contaminat ed Surgeon Surgeon Role Service Panel Wendy Gregg DO Primary Obstetrics 1 documented in this encounter Social History Tobacco [...] with No / Unsure 09/28/2020 8:47 AM MODEL MAKING SUPERVISOR someone who was confirmed or suspected to have Coronavirus / COVID-19? documented as of this encounter Last Filed Vital Signs Vital Sign Reading Time Taken Comments Blood Pressure 110/66 09/28/2020 9:45 PM MODEL MAKING SUPERVISOR Pulse 85 09/28/2020 9:45 PM MODEL MAKING SUPERVISOR Temperature 36.9 ??C (98.4 ??F) 09/28/2020 9:00 PM MODEL MAKING SUPERVISOR Respiratory Rate 16 09/28/2020 9:45 PM MODEL MAKING SUPERVISOR Oxygen Saturation 96% 09/28/2020 6:09 PM MODEL MAKING SUPERVISOR Inhaled Oxygen Concentration - - Weight 112.9 kg (249 lb) 09/28/2020 8:52 AM MODEL MAKING SUPERVISOR Height 160 cm (5' 3) 09/28/2020 8:52 AM MODEL MAKING SUPERVISOR Body Mass Index 44.11 09/28/2020 8:52 AM MODEL MAKING SUPERVISOR documented in this encounter Discharge Summaries Danial Falcon MD - 09/30/2020 9:24 AM CST [facility] Obstetrics Post-Op / Discharge Summary Note Assessment and Plan: Assessment: Post-operative day #2 Low transverse primary section L&D complications: A 30 year oldsbz-yamq-uzv at 40w1d weeks estimated gestational age admitted [...] phosphate (FLEET ENEMA) 1 enema ??? Tdap (dgsfenk-wdnmbgbtah-jhurq pertussis) (ADACEL) injection 0.5 mL ??? tranexamic [...] studies have been ordered Danial Falcon MD L MAKING SUPERVISOR documented in this encounter Discharge Instructions Discharge InstructionsLakeshia Mullen RN - 09/30/2020 1:40 PM CST Postop Instructions Make an appointment to be seen in the clinic in 6 weeks. [facility]: [phone] Activity ?? Do not lift more than [...] questions or concerns after you return home. L MAKING SUPERVISOR documented in this encounter Medications at Time [...] documented as of this encounter Progress Notes Danial Falcon MD - 09/30/2020 9:21 AM CST [facility] Obstetrics Post-Op / Progress Note Assessment and Plan: Assessment: Post-operative day #2 Low transverse primary section L&D complications: A 30 year oldxgz-vddx-xnq at 40w1d weeks estimated gestational age admitted [...] phosphate (FLEET ENEMA) 1 enema ??? Tdap (lycmllu-lmxpesmdhj-jsgvs pertussis) (ADACEL) injection 0.5 mL ??? tranexamic [...] studies have been ordered Danial Falcon MD L MAKING SUPERVISOR Dina Germain MD - 09/29/2020 11:45 AM [...] care. Britney Jones CNM 09/28/2020 6:55 PM Soledad Escobar CNM - 09/28/2020 4:34 PM CST [facility]I [...] prn HReno Jones CNM 09/28/2020 4:36 PM L MAKING SUPERVISOR Soledad Jones CNM - 09/28/2020 12:51 PM CST YARELI PROGRESS NOTE SUBJECTIVE: Rena [...] H. Octavia Jones CNM 09/28/2020 2:12 PM L MAKING SUPERVISOR Soledad Jones CNM - 09/28/2020 10:48 AM [...] to Reassess short interval Soledad Jones CNM L MAKING SUPERVISOR documented in this encounter H&P Notes Wendy Gregg DO - 09/28/2020 7:18 PM CST [facility] Labor and Delivery Consultation note Rnea Resendiz Age: [age] year old Date of [...] orders Prepare for section. Wendy Gregg DO L MAKING SUPERVISOR Soledad Jones CNM - 09/28/2020 9:09 AM CST [facility] Labor Admission History & Physical Rena Resendiz is a 30 year old with an IUP at 40w1d ; , Partner/support Person: Micah Language Barrier: [place] Clinic: [facility] Provider: Robert Rena Resendiz is admitted [...] found, no interventions. Pt thinks this happened [phone] ??? TONSILLECTOMY Family History Problem Relation Age [...] no clonus, no edema Contractions: Pt is nelsno every 2 minutes, lasting 60 seconds and [...] orders Britney Jones CNM 09/28/2020 9:23 AM L MAKING SUPERVISOR documented in this encounter Miscellaneous Notes Plan of Care - Lakeshia Mullen RN - 09/30/2020 2:41 PM CST Discharge instructions reviewed with patient and . Understanding verbalized. Will discharge to home with and baby. L MAKING SUPERVISOR Plan of Care - Lakeshia Mullen RN - 09/30/2020 2:36 PM CST Data: Vital signs within normal limits. checks within normal limits - see flow record. Patient eating and drinking normally. Patient able to empty bladder independently and is up ambulating.No apparent signs of infection. Incision healing well. Patient performing self cares and is able to care for infant. Action: Patient medicated during the shift for pain and cramping. See MAR. Patient reassessed within1 hour after each medication and pain was improved - patient stated she was comfortable. Patient education done about infant and self cares and discharge instructions. See flow record. Response: Positive attachment behaviors observed with infant. Support persons present. Plan: Anticipate discharge today. L MAKING SUPERVISOR Plan of Care - Karol Hayden RN - 09/30/2020 2:52 AM CST Pt meeting expected goals for shift. Positive attachment behaviors noted with . Pain managed with scheduled meds - See MAR. Support person Micah at bedside and attentive to pt needs. pt encouraged to complete discharge paperwork/videos. Will continue to monitor and adjust plan as needed. L MAKING SUPERVISOR Note - Elisabeth Shi RN - 09/29/2020 [...] supply and demand, and less than 24hour behaviors. Has shield at bedside that she uses if needed. Encouraged patientto try first without, if baby fussy apply shield and retry. All other questions answered. Encouraged to call for assistance. L MAKING SUPERVISOR Plan of Care - Kathleen Wright RN - 09/29/2020 7:59 PM CST Pt up ambulating independently. Voiding without difficulty. Incision covered . Reports adequate paincontrol with current pain plan. Family present and supportive. Meeting expected goals. Mother attentive to infants needs. , using nipple shield. L MAKING SUPERVISOR Plan of Care - Maria Del Rosario [...] supportive today. Maria Del Rosario Steven RN L MAKING SUPERVISOR Plan of Care - Kathleen Hurley RN [...] gluten free diet. FOB here and supportive. L MAKING SUPERVISOR L&D Delivery Note - Wendy Gregg DO - 09/29/2020 6:34 AM CST OB Delivery Note Rena Resendiz Age: [age] year old Date of : 1990 GA: 40w1d GP: Labor Complications: None EBL: mL Delivery QBL: Delivery Type: , Low Transverse ROM to Delivery Time: (Delivered) Hours: 7 Minutes: 24 1 Minute 5 Minute 10 Minute Totals: 5 8 Personel Present: WENDY GREGG Details Pre-Op Diagnosis: 1. Intrauterine at 40w1d [...] Procedure Details: See operative note Paris Resendiz-Rena [[id number]] Labor Event Times Labor onset date: 09/28/20 [...] Normal 1:1 continuous labor support provided by?: certified tower climber/Placenta Date and Time Delivery Date: 09/28/20 Delivery Time: 8:09 PM Placenta Date/Time: 09/28/2020 8:10 PM Vaginal Counts Toledo Suture Toledo Sponges Instruments Initial counts Added to count [...] Nuchal Gases Sent?: Yes Resuscitation Methods: None [facility] Measurements Weight: 7 lb 15 oz Length: [...] present?: Neg Delivery (Maternal) (Provider to Complete) ([id number]) Episiotomy: None Perineal lacerations: None Blood Loss Mother: Rena Resendiz #[id number] Start of Mother's Information IO Blood Loss 09/28/20 0530 - 09/29/20 0634 None End of Mother's Information Mother: Rena Resendiz #[id number] Delivery - Provider to Complete ([id number]) Delivering clinician: Wendy Gregg DO CNM Care: [...] Position: Left Occiput Anterior Wendy Gregg DO L MAKING SUPERVISOR Plan of Care - Maricruz Rogers RN - 09/28/2020 11:48 PM CST Data: Rena Resendiz transferred to [facility] via upsetter helper at 1135. Baby transferred via parent's arms. Action: Receiving unit notified of transfer: Yes. Patient and family notified of room change. Reportgiven to Kathleen TOLLIVER at 2330. Belongings sent to receiving unit. Accompanied by Registered Nurse. Oriented patient to surroundings. Call light within reach. ID bands double-checked with receiving RN. Response: Patient tolerated transfer and is stable. L MAKING SUPERVISOR Op Note - Wendy Gregg DO - 09/28/2020 8:53 PM CST PREOPERATIVE DIAGNOSIS: A 30 year oldssk-ynyg-ymz at 40w1d weeks estimated gestational age admitted for labor with arrest of dilation, obesity. POSTOPERATIVE DIAGNOSES: A 30 year oldlpz-upjt-cnt at 40w1d weeks estimated gestational age admitted for labor with arrest of dilation, obesity. PROCEDURE: 1. Primary low transverse section. 2. Seprafilm placement for adhesiolysis. COMPLICATIONS: None apparent at time of procedure. ESTIMATED BLOOD LOSS: 400 mL. SURGEON: Wendy Gregg DO. INDICATIONS: A 30 year oldjac-fhsy-zrw at 40w1d weeks estimated gestational age admitted [...] counts were correct x2. WENDY GREGG DO L MAKING SUPERVISOR Plan of Care - Maria Del Rosario Steven RN - 09/28/2020 9:19 AM CST 0735: , 40w1d, here for rule out labor. Pt states she has been nelson every 2-2.5 min [id number] this morning. EUM and EFM placed. Admission exam and database collected. SVE done,. SVE 5.5/80/-2. Octavia, CNM notified of patients SVE and arrival. Orders to make patient inpatient. Orders for epidural and/or fentanyl for pain. Covid swab collected and sent to lab. 00: Dr. [facility] here to place IV. 18G [...] to progress. Maria Del Rosario Steven RN L MAKING SUPERVISOR documented in this encounter Plan of Treatment Scheduled Orders Name Type Priority Associated Diagnoses Order S chedule See Providers Orders Lab Routine Release Upon Ordering for 1 Occurrences sta rting 09/28/2020 documented as of this encounter Procedures Procedure Name Priority Date/Time Associated Comments Diagnosis HEMOGLOBIN Routine 09/29/2020 7:02 AM Indication for care Re sults for this MODEL MAKING SUPERVISOR in labor or procedure are i n delivery the results section. PLACENTA PATH ORDER Routine 09/28/2020 8:13 PM Re sults for this AND INDICATIONS MODEL MAKING SUPERVISOR procedure ar e in the results section. SECTION 09/28/2020 7:48 PM Failure to progres s MODEL MAKING SUPERVISOR in labor TREPONEMA ABS W STAT 09/28/2020 9:23 AM Result s for this REFLEX TO RPR AND MODEL MAKING SUPERVISOR procedure are in TITER the results section. ABO/RH TYPE AND STAT 09/28/2020 9:23 AM Result s for this SCREEN MODEL MAKING SUPERVISOR procedure are i n the results section. SARS-COV-2 (COVID-19) STAT 09/28/2020 8:40 AM Results for this VIRUS RT-PCR MODEL MAKING SUPERVISOR procedure are i n the results section. documented in this encounter Results (ABNORMAL) Hemoglobin (09/29/2020 7:02 AM MODEL MAKING SUPERVISOR) P athologist Signature Hemoglobin 10.7 (L) 11.7 - 15.7 09/29/2020 [place] g/dL 7:42 AM [facility] Specimen Anatomical Collection Method Collection Time Receive d Time (Source) Location / / Volume Laterality Blood specimen 09/29/2020 7:02 AM 021 7:03 (specimen) MODEL MAKING SUPERVISOR AM MODEL MAKING SUPERVISOR Wendy Gregg DO LAB - BLOOD ORDERABLES Performing Organization Address City/State/ZIP Code Phon e Number M [place] [address] [phone] [place] [address] [phone] Placenta Path Order and Indications (PLACENTA) (09/28/2020 8:13 PM MODEL MAKING SUPERVISOR) Component Value Ref Test Analysis Performed At [facility] Range Method Time Signature Copath Patient Name: RENA RESENDIZ Report MR#: [id number] Specimen #: [id number] Collected: 09/28/2020 Received: 10/01/2020 Reported: 10/02/2020 12:04 [...] of this testing was completed at the [facility], with the professional compo nent performed at the [facility], [address] [place] [address] [phone] ([phone]) CPT Codes: A: 15325-UU5 COLLECTION SITE: Client: [facility] [address] Location: RHOR (R) Specimen Anatomical Collection Method Collection Time Receive d Time (Source) Location / / Volume Laterality Specimen from 09/28/2020 8:13 PM 10/01/19 21 8:32 placenta MODEL MAKING SUPERVISOR AM MODEL MAKING SUPERVISOR (specimen) Soledad XIAO Performing Organization Address City/State/ZIP Code Phon e Number [place] Treponema Abs w Reflex to RPR and Titer (09/28/2020 9:23 AM MODEL MAKING SUPERVISOR) [facility] gist Method Time Signature Treponema Nonreactive NR^Nonrea 09/28/2020 [facility] ctive 5:03 PM MODEL MAKING SUPERVISOR [facility] Comment: Methodology Change: Test performed on DiaSorin Liaison XL by Treponema pallidum Total Antibodies Assay as of . Specimen Anatomical Collection Method Collection Time Receive d Time (Source) Location / / Volume Laterality Blood specimen 09/28/2020 9:23 AM 021 9:24 (specimen) MODEL MAKING SUPERVISOR AM MODEL MAKING SUPERVISOR Soledad Jones CNM LAB - BLOOD ORDERABLES Performing Organization Address City/State/ZIP Code Phon e Number [address] [address] [facility] ABO/Rh type and screen (09/28/2020 9:23 AM MODEL MAKING SUPERVISOR) [facility] Method Time Signature ABO O 09/28/2020 [place] 10:18 AM [facility] RH(D) Pos [facility] Antibody Neg 09/28/2020 [place] Screen 10:18 AM [facility] Test Valid [facility] 09/28/2020 [facility] Only At [facility] 9:43 AM [facility] Specimen 10/01/2020 09/28/2020 [place] Expires 9:43 AM [facility] Specimen Anatomical Collection Method Collection Time Receive d Time (Source) Location / / Volume Laterality Blood specimen 09/28/2020 9:23 AM 021 9:24 (specimen) MODEL MAKING SUPERVISOR AM MODEL MAKING SUPERVISOR Soledad Robert DOWNS LAB - BLOOD BANK TEST ORDER Performing Organization Address City/[facility]/ZIP Code Phon e Number M [facility] [address] [place], [place] [address] [place] [address] [facility] [address] [phone] Asymptomatic SARS-CoV-2 COVID-19 Virus (Coronavirus) by PCR (09/28/2020 8:40 AM MODEL MAKING SUPERVISOR) [facility] Method Time Signature SARS-CoV-2 Nasopharyngeal 09/28/2020 [place] Virus 8:51 AM [facility] Source SARS-CoV-2 NEGATIVE 09/28/2020 [place] PCR Result 9:13 AM [facility] Comment: SARS-CoV2 (COVID-19) RNA not de tected, presumed negative. SARS-CoV-2 PCR Comment (Note) 09/28/2020 9:13 A [facility] Comment: Testing was performed using the vera [...] exposure or clinical pr esentation suggests COVID-19. [facility] are certi fied under the Clinical Laboratory Improvement Amendments of 1988 (CLIA-88) as qualified to perform moderate and/or high complexity laboratory testin g. Specimen (Source) Anatomical Collection Method Collection Time Re ceived Time Location / / Volume Laterality Specimen from 09/28/2020 8:40 09/28/2020 nasopharyngeal AM MODEL MAKING SUPERVISOR 8:51 AM MODEL MAKING SUPERVISOR structure (specimen) Soledad Jones CNM LAB - MICRO GENERAL ORDERABL ES Performing Organization Address City/State/ZIP Code Phon e Number [facility] [address] [address] [facility] [address] [phone] documented in this encounter Visit Diagnoses Diagnosis Indication for care in labor or delivery - Primary Unspecified indication for care or inter vention related to labor and delivery, unspecified as to episode of care Postoperative state Other postprocedural status Failure to progress in labor Other and unspecified uterine inertia, u nspecified as to episode of care documented in this encounter Admitting Diagnoses Diagnosis [...] acetaminophen (TYLENOL) tablet Given 09/30/2020 12:04 PM MODEL MAKING SUPERVISOR 975 mg 975 mg 975 mg, Oral, EVERY 6 HOURS, First dose on Thu09/28/20 at 2330, Maximum acetaminophen dose from all sources = 75 mg/kg/day not to exceed 4 grams/day., Post-procedure Given 09/30/2020 5:42 AM MODEL MAKING SUPERVISOR 975 mg Given 09/30/2020 12:09 AM MODEL MAKING SUPERVISOR 975 mg dextrose 5% in lactated ringers infusion New Bag 09/29/2020 2:00 AM MODEL MAKING SUPERVISOR 125 mL/hr at 125 mL/hr, Intravenous, CONTINUOUS, Subsequent IV at nurse's discretion. DC IV when tolerating fluids or at nurse's discretion & saline lock., Post-procedure, Starting on Thu09/28/20 at 2330, Until 09/30/20 at 1703 escitalopram (LEXAPRO) tablet 20 mg Given 09/29/2020 10:37 PM MODEL MAKING SUPERVISOR 20 mg 20 mg, Oral, DAILY, First dose on 09/29/20 at 0900 ibuprofen (ADVIL/MOTRIN) tablet 800 mg Given 09/30/2020 10:24 AM MODEL MAKING SUPERVISOR 800 mg 800 mg, Oral, EVERY 6 HOURS, First dose on 09/29/20 at 2100, Give with food., Post-procedure Given 09/30/2020 4:33 AM MODEL MAKING SUPERVISOR 800 mg Given 09/29/2020 10:36 PM MODEL MAKING SUPERVISOR 800 mg naloxone (NARCAN) injection 0.2 mg 0.2 mg, [...] response. ondansetron (ZOFRAN) injection 4 mg Given 09/29/2020 12:56 AM MODEL MAKING SUPERVISOR 4 mg 4 mg, Intravenous, EVERY 6 HOURS PRN, nausea, vomiting, Administer over 2-5 Minutes, Starting on Thu09/28/20 at 2316, If nausea not resolved in 15 minutes, notify provider before proceeding to prochlorperazine (COMPAZINE) [if ordered]. Irritant. For ordered IV doses 0.1-4 mg, give IV Push undiluted over 2-5 minutes., Post-procedure oxyCODONE (ROXICODONE) tablet 5 mg Given 09/29/2020 10:36 PM MODEL MAKING SUPERVISOR 5 mg 5 mg, Oral, EVERY 4 HOURS PRN, other, pain control or improvement in physical function. Hold dose for analgesic side effects., Starting on Thu09/28/20 at 2316, Notify provider to assess for uncontrolled pain or analgesic side effects. Hold while on COLLEGE SPORTS ASSISTANT or with regular IV opioid dosing. Maximum total is 60 mg in 24 hours., Post-procedure Given 09/29/2020 1:04 PM MODEL MAKING SUPERVISOR 5 mg senna-docusate (SENOKOT-S/PERICOLACE) Given 09/30/2020 9:[address] 1 tablet 8.6-50 MG per tablet 1 tablet 1 tablet, Oral, 2 TIMES DAILY, First dose on Thu09/28/20 at 2330, If no bowel movement in 24 hours, increase to 2 tablets PO. Hold for loose stools. Preferred agent for constipation related to opioids. Hold for loose stools., Post-procedure Given 09/29/2020 10:36 PM MODEL MAKING SUPERVISOR 1 tablet Given 09/29/2020 9:50 AM MODEL MAKING SUPERVISOR 1 tablet senna-docusate (SENOKOT-S/PERICOLACE) 8. 6-50 MG per tablet 2 tablet 2 tablet, Oral, 2 TIMES DAILY, First dos e on Thu09/28/20 at 2330, Hold for loose stools. Preferred agent for constipation related to op ioids. Hold for loose stools., Post-procedure simethicone (MYLICON) chewable tablet 80 mg Given 09/30/2020 3:27 AM MODEL MAKING SUPERVISOR 80 mg 80 mg, Oral, 4 TIMES DAILY PRN, other, gas, Starting on Thu09/28/20 at 2316, Chew., Post-procedure sodium chloride (PF) 0.9% PF flush 3 mL Given 09/29/2020 4:01 PM MODEL MAKING SUPERVISOR 3 mLs 3 mL, Intracatheter, EVERY 8 HOURS PRN, other, to lock peripheral IV dormant line, Starting on Thu09/28/20 at 2316, Post-procedure documented in this encounter Active and Recently Administered Medications Times are shown in MODEL MAKING SUPERVISOR. Scheduled Medication Order 09/28/2020 09/29/2020 09/30/2020 acetaminophen (TYLENOL) tablet 975 mg 00 56 (Not Given - Provider: Kathleen Hurley, UNRULY - Reason: Nausea)0613 (Given - Provider: Kathleen Hurley RN)1216 (Given - Provider: Elvie Turcios, UNRULY)1759 (Given - Provider: Kathleen Wright, UNRULY) 0009 (Given - Provider: Rhianna Washington, RN)0542 (Given - Provider: Karol Hayden, RN)1204 (Given - Provider: Lakeshia Mullen RN) 975 mg, Oral, EVERY 6 HOURS, First dose on Thu09/28/20 at 2330, Maximum acetaminophen dose from all sources = 75 mg/kg/day not to exceed 4 grams/day., Post-procedure azithromycin 500 mg (ZITHROMAX) in 0.9% NaCl 250 mL intermittent infusion 500 mg (COMPLETED) 192 (New Bag - Provider: Maricruz Rogers, RN)2030 (Stopped - Provider: Maricruz Rogers RN) STAT, 500 mg, Intravenous, PRE-OP/PRE-OH OCEDURE, Starting Thu09/28/20 at 1851, For 1 dose, Give no sooner than 60 minutes prior to incision., Indications: Rupture of Membranes AND/OR Labor prior to , Pre-procedure escitalopram (LEXAPRO) tablet 20 mg 1216 (Not Given - Provider: Elvie Turcios RN - Reason: Patient/family refused - Comment: takes at night, dose rescheduled)223 (Given - Provider: Kathleen Wright, UNRULY) 20 mg, Oral, DAILY, First dose on Thu09/29/20 at 0900 fentaNYL (SUBLIMAZE) 2 mcg/mL, bupivacai ne (MARCAINE) 0.125% in NS premix for PCEA (CANCELED) 1008 (New Syringe/Cartridge - Provider: Maria Del Rosario [place], RN)1620 (Canceled Entry - Provider: Maria Del Rosario [place], RN)1802 (New Syringe/Cartridge - Provider: Maria Del Rosario [place], RN) PCEA dose (mL): 5, PCEA Lockout [...] mg 2 236 (Given - Provider: Kathleen Wright, UNRULY) 0341 (Canceled Entry - Provider: Karol Hayden, UNRULY)0433 (Given - Provider: Karol Hayden RN)1024 (Given - Provider: Lakeshia Mullen RN)1630 (Canceled Entry - Provider: Orders Generic Provider - Comment: Automatically canceled at discont 800 mg, Oral, EVERY 6 HOURS, First dose on 09/29/20 at 2100, Give with food., Post-procedure inue of medication o rder) ketorolac (TORADOL) injection 30 mg (COMPLETED) 0348 (Given - Provider: Kathleen Hurley RN)0941 (Given - Provider: Maria Del Rosario [place], RN)1601 (Given - Provider: Kathleen Wright RN) 30 mg, Intravenous, EVERY 6 HOURS, First [...] (Canceled Entry - Provider: Maria Del Rosario [place], UNRULY - Comment: Rubella immune) 0.5 mL, Subcutaneous, ONCE, 09/29/20 at 1000, For 1 dose, Give ONLY if not immune or equivocal / borderline / low level Rubella titer., Post-procedure senna-docusate (SENOKOT-S/PERICOLACE) 8. 6-50 MG per tablet 1 tablet(Linked Group 1) 2346 (See Alternative - Provider: Kathleen Hurley RN) 0950 (Given - Provider: Maria Del Rosario [place] RN)2235 (Given - Provider: Kathleen Wright, UNRULY) 0950 (Given - Provider: Lakeshia Mullen RN) 1 tablet, Oral, 2 TIMES DAILY, First dos e on Thu09/28/20 at 2330, If no bowel movement in 24 hours, increase to 2 tablets PO. Hold for loose stools. Preferred agent for constipation related to opioids. Hold for loose stools., Post-procedure senna-docusate (SENOKOT-S/PERICOLACE) 8. 6-50 MG per tablet 2 tablet(Linked Group 1) 2346 (Not Given - Provider: Kathleen fritz RN - Reason: Other - Comment: clear liquids) 0950 (See Alternative - Provider: Maria Del Rosario [place] RN)2235 (See Alternative - Provider: Kathleen Wright RN) 0950 (See Alternative - Provider: Lakeshia Mullen RN) 2 tablet, Oral, 2 TIMES DAILY, First dos e on Thu09/28/20 at 2330, Hold for loose stools. Preferred agent for constipation related to opioids. Hold for loose stools., Post-procedure sodium citrate-citric acid (BICITRA) solution 30 mL (C OMPLETED) 192 (Given - Provider: Maricruz Rogers RN) 30 mL, Oral, PRE-OP/PRE-PROCEDURE, Start ing Thu09/28/20 at 1850, For 1 dose, For gastric pH neutralization. GIVE WITHIN 45 minutes PRIOR TO SURGICAL PROCEDURE., Pre-procedure Tdap (jmtnhzt-cioxllbsuw-atvmw pertussis) (ADACEL) injection 0.5 mL 1000 (Canceled [...] Bag - P rovider: Maria Del Rosario [place], RN)1804 (New Bag - Provider: Maria Del Rosario [place], RN) at 125 mL/hr, Intravenous, CONTINUOUS, S tarting Thu09/28/20 at 0900, Until Thu09/28/20 at 2317 oxytocin (PITOCIN) 30 units in 500 mL 0.9% NaCl infusi on (CANCELED) 1315 (New Bag - Provider: Maria Del Rosario Steven, UNRULY)1344 (Rate/Dose Change - Provider: Maria Del Rosario Steven, RN)1415 (Rate/Dose Verify - Provider: Maria Del Rosario Steven, RN)1544 (Rate/Dose Verify - Provider: Maria Del Rosario Steven, RN) 1-24 arslan-units/min (1-24 mL/hr), at 1- 24 mL/hr, Intravenous, CONTINUOUS, Starting Thu09/28/20 at 1330, Start infusion at 2 arslan-units/min. Increase by 1-2 arslan-units/min every 30 minutes as clinical 1629 (Rate/Dose Change - Provider: Maria Del Rosario Steven RN)1729 (Rate/Dose Change - Provider: Maria Del Rosario Steven, RN)1845 (Stopped - Provider: Maria Del Rosario Steven, RN) ly indicated until contractions are 2-3 [...] (PF) (SUBLIMAZE) injection 50-100 mcg (CANCEL ED) 0904 (Given - Provider: Ambreen Medina RN)1947 (Auto Hold - Provider: Orders Generic Provider - Reason: Transfer to a procedural area)2051 (Unhold - Provider: Orders Generic Provider) 50-100 mcg, Intravenous, EVERY 1 HOUR OH N, other, desired pain relief based on [...] Post-procedure lactated ringers BOLUS 1,000 mL (COMPLETED) 0906 (New Bag - Provider: Maria Del Rosario [...] For ordered IV doses 0.1-2mg give I FORESTRY FACULTY MEMBER. Give each 0.4mg over 15 seconds in [...] respiratory rate, depth, oxygen saturation and end-ti tyler CO2 (if available) every 15 minutes x [...] Post-procedure ondansetron (ZOFRAN) injection 4 mg (CANCELED) 180 (C anceled Entry - Provider: Maria Del Rosario Steven, RN)1947 (Auto Hold - Provider: Orders Generic [...] Provider) ondansetron (ZOFRAN) injection 4 mg (CANCELED) 162 (G iven - Provider: Maria Del Rosario Steven RN)1947 [...] 1304 (Given - Provider: Maria Del Rosario Steven RN)2236 (Given - Provider: Kathleen Wright, UNRULY) 5 mg, Oral, EVERY 4 HOURS PRN, other, pa in control or improvement in physical function. Hold dose for analgesic side effects., Starting Thu09/28/20 at 2316, Notify provider to assess for uncontrolled pa in or analgesic side effects. Hold while on COLLEGE SPORTS ASSISTANT or with regular IV opioid dosing. Maximum [...] tablet 80 mg 0327 (Given - Provider: Kraol Hayden, RN) 80 mg, Oral, 4 TIMES DAILY [...] documented as of this encounter Care Teams Computer Education Professor Relationship Specialty Start Date End Date Blank Lemos MD PCP - General Internal Medicine 04/22/[address] [place] [address] K[place] RENO [phone] Blank Lemos MD Assigned PCP 04/25/[address] [place] [address] KISHAN RENO [phone] Kathleen Lacy CNM Assigned OBGYN Provider 06/01/20 11/23/21 [place] [address] documented as of this encounter
--- OUTSIDE RECORDS SUMMARY | 2022-04-09 07:17 | XMS_ITS | Encounter Summary ---
:1990 Author Organization [place] Address [facility] [place] [address] Care Team Providers Name Role Phone Blank Lemos MD Primary Care Provider Blank Lemos MD Unavailable Kathleen Lacy CN Unavailable Reason for Visit Reason Comments Care 36w 4d, discuss delivery prince n management options and restrictions Encounter Details Date Type Department Care Team Description 09/03/2020 Office [facility] Stevan Jones nnah, CNM [address] [place], [place] [id number] En[facility] for Visit [facility] [place] Kellie, CNM [address] [place], [place] [id number] supervision of [place] normal first [address] in th ird [place] trimester (Primary [address] Dx) [place] [id number] Social History Tobacco Use Types Packs/Day Years [...] with No / Unsure 09/03/2020 1:45 PM LEAD HOUSEKEEPER someone who was confirmed or suspected to have Coronavirus / COVID-19? documented as of this encounter Last Filed Vital Signs Vital Sign Reading Time Taken Comments Blood Pressure 116/76 09/03/2020 1:48 PM LEAD HOUSEKEEPER Pulse - - Temperature - - Respiratory Rate - - Oxygen Saturation - - Inhaled Oxygen Concentration - - Weight 113.4 kg (250 lb) 09/03/2020 1:48 PM LEAD HOUSEKEEPER Height - - Body Mass Index 44.29 04/09/2020 1:36 PM CDT documented in this encounter Patient Instructions Patient InstructionsFaiza Reyes CNM - 09/03/2020 2:00 PM CST GROUP B STREP Group B Strep (GBS) is a common bacteria that is sometimes found in the vagina, urinary tract or rectum. It is not harmful typically to adults but can cause serious illness in newborns. It occasionallyis passed from mother to baby during . It is important to test in . When a woman is found to be positive for GBS, either at the first visit or by taking a culture at 36 weeks, treatment will be offered to reduce the chanceof spreading the bacteria to the baby. ?? Treatment consists of either oral antibiotics early in or antibiotics given by IV during labor if testing is positive at 36 weeks. ?? Even without treatment the baby rarely (1-2% of the time) gets infected. With treatment the baby almost never gets infected. ?? There really isn't anything you can do to keep from getting or being positive for GBS. It isn't sexually transmitted and there are no symptoms if you are positive. ?? Your sap analyst will discuss your results with you and make recommendations for treatment. Labor Instructions for Calender Wind Up Tender Patients When to call: Both during and after office hours call [phone]. There is a Nurse Calender Wind Up Tender available to take your calls and answer your questions 24 hours a day. When to call: Call anytime you have important concerns about you or your baby. Call if: ?? You are having contractions at regular intervals about 5-6 minutes apart lasting 30-60 seconds and becoming increasingly more intense ?? You have an uncontrollable gush of fluid from your vagina or feel a pop and gush like your water has broken ?? You have HEAVY bleeding, like heavy period, blood running down your legs, or soaking a pad. ?? Some bleeding after a pelvic exam, after intercourse, or in labor when your cervix is dilating isnormal and is referred to as bloody show ?? You have severe, continuous back or abdominal pain ?? You feel it is time to go to the hospital ?? If this is your first labor, call when contractions are very intense and have been about every 3-4 minutes for about an hour ?? If it is your second labor or more, call when contractions are strong and about every 3-5 minutesor sooner depending on your level of discomfort. Keep in mind we are always here for you! If you have questions, concerns please don't hesitate to call us. What to eat/drink in labor: Drink plenty of fluid (water most importantly, juice, soda or tea without caffeine). Eat rice, pasta, soup, cereal, bread/toast, and fruit. Avoid dairy and greasy food as they are difficult to digest and you may experience some nausea during labor. Comfort measures: ?? Baths and showers (ok even with ruptured membranes, it may temporarily slow contractions if you are still in the early stage of labor) ?? Warm/hot packs for back pain or discomfort ?? Back, belly, or thigh massages ?? Standing, rocking, walking, leaning over bed or tables, side-lying and sleeping Miscellaneous: ?? Contractions are timed from the beginning of one to the beginning of the next ?? Try hard to sleep during the early stage of labor when you are not that uncomfortable. Timing of contractions at this point is not important ?? Even if you cannot sleep, resting in bed or on the couch can help you maintain your energy for labor ?? When you arrive at the hospital the nurse will check your baby's heartbeat, check your cervix, and will call us. The sap analyst bonding machine tender will come in and be with you when you are in active labor ?? After hours you need to enter the hospital through the emergency room HOUSEKEEPER documented in this encounter Progress Notes Faiza Reyes CNM - 09/03/2020 2:00 PM CST S: Feels well and has no concerns. Baby active. Denies uterine cramping, vaginal bleeding or leakingof fluid. No headache, increase in edema, no epigastric pain. O: Vitals: BP 116/76 (BP Location: Right arm, Cuff Size: Adult Large) Wt 113.4 kg (250 lb) LMP 12/22/2019 BMI 44.29 kg/m?? BMI= Body mass index is 44.29 kg/m??. Exam: Constitutional: healthy, alert and no distress Respiratory: respirations even and unlabored Gastrointestinal: Abdomen soft, non-tender. Fundus measures appropriate for gestational age. heart tones hear without difficulty and within normal limits : Normal external genitalia without lesions Psychiatric: mentation appears normal and affect normal/bright A: ICD-10-CM 1. Encounter for supervision of normal first in third trimester Z34.03 Strep, Group B by PCR P: Labor signs and symptoms discussed, aware of numbers to call Discussed warning signs of PIH/preeclampsia and patient will monitor. GBS screen completed. Discussed plans for labor. Discussed patient options for contraception. Patient is planning oral contraceptives Encouraged patient to call with any questions or concerns. Return to clinic 1 weeks Faiza Reyes APRN, CNM HOUSEKEEPER documented in this encounter Nursing Notes Luz Maria Abreu - 09/03/2020 2:00 PM CST Chief Complaint Patient presents with ??? Care 36w 4d, discuss delivery pain management options and restrictions Initial BP 116/76 (BP Location: Right arm, Cuff Size: Adult Large) Wt 113.4 kg (250 lb) LMP 12/22/2019 BMI 44.29 kg/m?? Estimated body mass index is 44.29 kg/m?? as calculated from the following: Height as of 04/09/20: 1.6 m (5' 3). Weight as of this encounter: 113.4 kg (250 lb). BP completed using cuff size: large Questioned patient about current smoking habits. Pt. quit smoking some time ago. The following HM Due: NONE Luz Maria Abreu CMA HOUSEKEEPER documented in this encounter Plan of Treatment Not on filedocumented as of this encounter Procedures Procedure Name Priority Date/Time Associated Diagnosis Comme nts GROUP B STREP PCR Routine 09/03/2020 2:00 PM Encounter for Res ults for this LEAD HOUSEKEEPER supervision of normal proced ure are in first in the resul ts third trimester section. documented in this encounter Results Strep, Group B by PCR (09/03/2020 2:00 PM LEAD HOUSEKEEPER) [facility] Method Time Signature Group B Strep Vaginal 09/03/2020 [place] PCR Spec Carlos Rectal 1:46 PM LEAD HOUSEKEEPER [facility] Group B Strep Negative NEG^Negat 09/04/2020 [facility] yakelin 2:26 PM LEAD HOUSEKEEPER [facility] Comment: No GBS DNA detected, presumed negative f or GBS or number of bacteria may be below the limit of detection of the assa y. Assay performed on incubated broth cultu re of specimen using [employer] real-time PCR. Specimen Anatomical Collection Method Collection Time Receive d Time (Source) Location / / Volume Laterality Vaginal Rectal 09/03/2020 2:00 PM 021 3:25 LEAD HOUSEKEEPER PM LEAD HOUSEKEEPER Faiza Reyes CNM LAB - MICRO GENERAL ORDERABL ES Performing Organization Address City/State/ZIP Code Phon e Number [address] [address] [facility] [address] [place], [place] [address] [address] documented in this encounter Visit Diagnoses Diagnosis Encounter for supervision of normal firs t in third trimester - Primary Supervision of normal first documented in this encounter Additional Health Concerns Assessment Noted Time PHQ-9 Depression Total Score: 5 12/06/2020 7:02 AM CDT documented as of this encounter Care Teams Switching Clerk Relationship Specialty Start Date End Date Blank Lemos MD PCP - General Internal Medicine 04/22/18 [address] [facility] KISHAN RENO [phone] Blank Lemos MD Assigned PCP 04/25/18 [address] [facility] K[place]AN RENO [phone] Kathleen Lacy CNM Assigned OBGYN Provider 06/01/20 11/23/21 [place] [address] documented as of this encounter
--- OUTSIDE RECORDS SUMMARY | 2022-04-09 07:17 | XMS_ITS | Encounter Summary ---
:1990 Author Organization [place] Address [address] [place] [address] Care Team Providers Name Role Phone Blank Lemos MD Primary Care Provider Blank Lemos MD Unavailable Kathleen Lacy CNM Unavailable Encounter Details Date Type Department Care Team Description 09/03/2020 Travel Social History Tobacco Use Types Packs/Day [...] with No / Unsure 09/03/2020 1:45 PM GREASER HELPER someone who was confirmed or suspected to have Coronavirus / COVID-19? documented as of this encounter Plan of Treatment Not on filedocumented as of this encounter Visit Diagnoses Not on filedocumented in this encounter Additional Health Concerns Assessment Noted Time PHQ-9 Depression Total Score: 5 12/06/2020 7:02 AM CDT documented as of this encounter Care Teams Transport Tech Relationship Specialty Start Date End Date Blank Lemos MD PCP - General Internal Medicine 04/22/[address] [place] [address] KISHAN RENO [phone] Blank Lemos MD Assigned PCP 04/25/[address] [place] [address] K[place] RENO [phone] Kathleen Lacy CNM Assigned OBGYN Provider 06/01/20 11/23/21 Cipriano Rivera [place] [address] documented as of this encounter
--- OUTSIDE RECORDS SUMMARY | 2022-04-09 07:18 | XMS_ITS | Encounter Summary ---
:1990 Author Organization [place] Address [address] [place] [address] Care Team Providers Name Role Phone Blank Lemos MD Primary Care Provider Blank Lemos MD Unavailable Kathleen Lacy CNM Unavailable Encounter Details Date Type Department Care Team Description 08/16/2020 Orders Only M [facility] Taylor Gonsales RN [facility] [address] [facility] [address] [place] [address] Social History Tobacco Use Types Packs/Day Years [...] been in contact with No / Unsure 08/06/2020 1:53 PM CALENDER LET OFF HELPER someone who was confirmed or suspected to have Coronavirus / COVID-19? documented as of this encounter Plan of Treatment Not on filedocumented as of this encounter Procedures Procedure Name Priority Date/Time Associated Diagnosis Comme nts COLPOSCOPY Routine 04/09/2020 12:00 AM CDT documented in this encounter Results COLPOSCOPY (04/09/2020 12:00 AM CDT) Sharita Frias MD PROCEDURE/MINOR SURGICAL ORD ERABLES documented in this encounter Visit Diagnoses Not on filedocumented in this encounter Additional Health Concerns Assessment Noted Time PHQ-9 Depression Total Score: 10 02/02/2020 8:23 AM CD T documented as of this encounter Care Teams Water Softener Servicer And Installer Relationship Specialty Start Date End Date Blakn Lemos MD PCP - General Internal Medicine 04/22/[address] [place] [address] KISHAN RENO [phone] Blank Lemos MD Assigned PCP 04/25/[address] [place] [address] K[place] RENO [phone] Kathleen Lacy CNM Assigned OBGYN Provider 06/01/20 11/23/21 [place] [address] documented as of this encounter
--- OUTSIDE RECORDS SUMMARY | 2022-04-09 07:18 | XMS_ITS | Encounter Summary ---
:1990 Author Organization [place] Address [address] [place] [address] Care Team Providers Name Role Phone Blank Lemos MD Primary Care Provider Blank Lemos MD Unavailable Encounter Details Date Type Department Care Team Description 05/01/2020 Travel Social History Tobacco Use Types Packs/Day [...] been in contact with No / Unsure 05/01/2020 8:11 AM CDT someone who was confirmed or suspected to have Coronavirus / COVID-19? documented as of this encounter Plan of Treatment Not on filedocumented as of this encounter Visit Diagnoses Not on filedocumented in this encounter Additional Health Concerns Assessment Noted Time PHQ-9 Depression Total Score: 10 02/02/2020 8:23 AM CD T documented as of this encounter Care Teams Underwriting Support Manager Relationship Specialty Start Date End Date Blank Lemos MD PCP - General Internal Medicine 04/22/[address] [place] [address] K[place] RENO [phone] Blank Lemos MD Assigned PCP 04/25/[address] [place] [address] KISHAN RENO [phone] documented as of this encounter
--- OUTSIDE RECORDS SUMMARY | 2022-04-09 07:18 | XMS_ITS | Encounter Summary ---
:1990 Author Organization [place] Address [facility] [place] [address] Care Team Providers Name Role Phone Blank Lemos MD Primary Care Provider Blank Lemos MD Unavailable Reason for Visit Reason Comments Ultrasound L2-subopt anatomy on outside scan Encounter Details Date Type Department Care Team Description 05/09/2020 PRE VISIT [facility] Eliza Lux RN Ultra sound (L2-subopt Maternal Medicine guillermina harjeet on outside scan) [facility] [address] [facility] [address] [place] [address] Social History Tobacco Use Types [...] documented as of this encounter Care Teams Personal Lines Advisor Relationship Specialty Start Date End Date Blank Lemos MD PCP - General Internal Medicine 04/22/[address] [place] [address] K[place] RENO [phone] Blank Lemos MD Assigned PCP 04/25/[address] [place] [address] KISHAN RENO [phone] documented as of this encounter
--- OUTSIDE RECORDS SUMMARY | 2022-04-09 07:18 | XMS_ITS | Encounter Summary ---
:1990 Author Organization [place] Address [address] [place] [address] Care Team Providers Name Role Phone Blank Lemos MD Primary Care Provider Blank Lemos MD Unavailable Kathleen LacyM Unavailable Encounter Details Date Type Department Care Team Description 07/09/2020 Travel Social History Tobacco Use Types Packs/Day [...] been in contact with No / Unsure 07/09/2020 7:18 PM PORCELAIN ENAMELING SUPERVISOR someone who was confirmed or suspected to have Coronavirus / COVID-19? documented as of this encounter Plan of Treatment Not on filedocumented as of this encounter Visit Diagnoses Not on filedocumented in this encounter Additional Health Concerns Assessment Noted Time PHQ-9 Depression Total Score: 10 02/02/2020 8:23 AM CD T documented as of this encounter Care Teams Home Specialist Relationship Specialty Start Date End Date Blank Lemos MD PCP - General Internal Medicine 04/22/[address] [place] [address] KISHAN RENO [phone] Blank Lemos MD Assigned PCP 04/25/[address] [place] [address] K[place] RENO [phone] Kathleen Lacy CNM Assigned OBGYN Provider 06/01/20 11/23/21 [place]ipriano Rivera [place] [address] documented as of this encounter
--- OUTSIDE RECORDS SUMMARY | 2022-04-09 07:18 | XMS_ITS | Encounter Summary ---
:1990 Author Organization [place] Address [address] [place] [address] Care Team Providers Name Role Phone Blank Lemos MD Primary Care Provider Blank Lemos MD Unavailable Encounter Details Date Type Department Care Team Description 04/24/2020 Travel Social History Tobacco Use Types Packs/Day [...] been in contact with No / Unsure 04/24/2020 1:18 PM CDT someone who was confirmed or suspected to have Coronavirus / COVID-19? documented as of this encounter Plan of Treatment Not on filedocumented as of this encounter Visit Diagnoses Not on filedocumented in this encounter Additional Health Concerns Assessment Noted Time PHQ-9 Depression Total Score: 10 02/02/2020 8:23 AM CD T documented as of this encounter Care Teams Maintenance Equipment Operator Relationship Specialty Start Date End Date Blank Lemos MD PCP - General Internal Medicine 04/22/[address] [place] [address] KISHAN RENO [phone] Blank Lemos MD Assigned PCP 04/25/[address] [place] [address] K[place] RENO [phone] documented as of this encounter
--- OUTSIDE RECORDS SUMMARY | 2022-04-09 07:18 | XMS_ITS | Encounter Summary ---
:1990 Author Organization [place] Address [address] [place] [address] Care Team Providers Name Role Phone Blank Lemos MD Primary Care Provider Blank Lemos MD Unavailable Encounter Details Date Type Department Care Team Description 05/11/2020 Travel Social History Tobacco Use Types Packs/Day [...] been in contact with No / Unsure 05/11/2020 9:21 AM CDT someone who was confirmed or suspected to have Coronavirus / COVID-19? documented as of this encounter Plan of Treatment Not on filedocumented as of this encounter Visit Diagnoses Not on filedocumented in this encounter Additional Health Concerns Assessment Noted Time PHQ-9 Depression Total Score: 10 02/02/2020 8:23 AM CD T documented as of this encounter Care Teams Sterile Technician Relationship Specialty Start Date End Date Blank Lemos MD PCP - General Internal Medicine 04/22/[address] [place] [address] KISHAN RENO [phone] Blank Lemos MD Assigned PCP 04/25/[address] [place] [address] KISHAN RENO [address] documented as of this encounter
--- OUTSIDE RECORDS SUMMARY | 2022-04-09 07:18 | XMS_ITS | Encounter Summary ---
:1990 Author Organization [place] Address [facility] [place] [address] Care Team Providers Name Role Phone Blank Lemos MD Primary Care Provider Blank Lemos MD Unavailable Kathleen Lacy CNM Unavailable Reason for Visit Reason Onset Date Comments Refill Request 07/08/2020 escitalopram (LEXAPR O) 20 MG tablet Encounter Details Date Type Department Care Team Description 07/08/2020 Refill M [facility] Blank Lemos, Re fill Request Clinic Dev [place] (escitalopram (LEXAPRO) [address] [facility] 20 MG tablet) [facility] [address] [place] [address] [place] [address] [phone] Social History Tobacco Use Types Packs/Day Years [...] with No / Unsure 07/09/2020 7:18 PM ROOFER HELPER VINYL COATING someone who was confirmed or suspected to have Coronavirus / COVID-19? documented as of this encounter Miscellaneous Notes Telephone Encounter - Oliva Vasques RN - 07/10/2020 12:09 PM CST Spoke to patient Advised that medication was refilled for 3 months, but is due for mental health follow up and can bedone as a virtual. Offered to schedule now, but patient sated she would like to call back at a latertime. I advised her to be sure to call back to schedule before running out of medication. Patient verbalized understanding. Oliva Craft RN ER HELPER VINYL COATING Telephone Encounter - Blank Lemos MD - 07/10/2020 11:56 AM ROOFER HELPER VINYL COATING Refill x 3 months - she is due for mental health follow up this month or Aug - ok if virtual Blakn Lemos MD Internal Medicine/Pediatrics [facility] ER HELPER VINYL COATING Telephone Encounter - Margarita Lowry RN - 07/10/2020 10:55 AM CST Routing refill request to provider for review/approval because: Positive test on 02/01/20. Margarita Lowry RN on 07/10/2020 at 10:56 AM ER HELPER VINYL COATING documented in this encounter Plan of Treatment Not on filedocumented as of this encounter Visit Diagnoses Diagnosis Generalized anxiety disorder Bipolar I disorder (H) Bipolar I disorder, most recent episode (or current) unspecified documented in this encounter Additional Health Concerns Assessment Noted Time PHQ-9 Depression Total Score: 10 02/02/2020 8:23 AM CD T documented as of this encounter Care Teams House Carpenter Helper Relationship Specialty Start Date End Date Blank Lemos MD PCP - General Internal Medicine 04/22/[address] [place] [address] [place] R[place] [phone] Blank Lemos MD Assigned PCP 04/25/[address] [place] [address] K[place] R[place] [phone] Kathleen Lacy CNM Assigned OBGYN Provider 06/01/20 11/23/21 [place] [address] documented as of this encounter
--- OUTSIDE RECORDS SUMMARY | 2022-04-09 07:18 | XMS_ITS | Encounter Summary ---
:1990 Author Organization [place] Address [address] [place] [address] Care Team Providers Name Role Phone Blank Lemos MD Primary Care Provider Blank Lemos MD Unavailable Kathleen LacyM Unavailable Encounter Details Date Type Department Care Team Description 07/23/2020 Travel Social History Tobacco Use Types Packs/Day [...] been in contact with No / Unsure 07/23/2020 1:56 PM HEARING AID TECHNICIAN someone who was confirmed or suspected to have Coronavirus / COVID-19? documented as of this encounter Plan of Treatment Not on filedocumented as of this encounter Visit Diagnoses Not on filedocumented in this encounter Additional Health Concerns Assessment Noted Time PHQ-9 Depression Total Score: 10 02/02/2020 8:23 AM CD T documented as of this encounter Care Teams Network Services Project Manager Relationship Specialty Start Date End Date Blank Lemos MD PCP - General Internal Medicine 04/22/[address] [place] [address] KISHAN RENO [phone] Blank Lemos MD Assigned PCP 04/25/[address] [place] [address] KISHAN RENO [phone] Kathleen Lacy CNM Assigned OBGYN Provider 06/01/20 11/23/21 Cipriano Rivera [place] [id number] documented as of this encounter
--- OUTSIDE RECORDS SUMMARY | 2022-04-09 07:18 | XMS_ITS | Encounter Summary ---
:1990 Author Organization [place] Address [address] [facility] [place] [address] Care Team Providers Name Role Phone Blank Lemos MD Primary Care Provider Blank Lemos MD Unavailable Kathleen Lacy CNM Unavailable Reason for Visit Reason Comments Care Encounter Details Date Type Department Care Team Description 08/06/2020 Office [facility] Rand Kam h-risk , third trimester (Primary Dx); [facility] EGINNY CNM Pelvic pain affecting in third trimester, antepartum; [place] [address] At risk for venous thromboem bolism (VTE); [address] Elevated blood pressure affecting pregna ncy in third trimester, antepartum [place], [place] [address] [address] [place], [place] [phone] [address] (Work) [phone] Social History Tobacco Use Types Packs/Day Years [...] with No / Unsure 08/06/2020 1:53 PM PRIVATE DUTY NURSE someone who was confirmed or suspected to have Coronavirus / COVID-19? documented as of this encounter Last Filed Vital Signs Vital Sign Reading Time Taken Comments Blood Pressure 122/74 08/06/2020 2:02 PM PRIVATE DUTY NURSE Pulse - - Temperature - - Respiratory Rate - - Oxygen Saturation - - Inhaled Oxygen Concentration - - Weight 110.2 kg (243 lb) 08/06/2020 2:02 PM PRIVATE DUTY NURSE Height - - Body Mass Index 43.05 04/09/2020 1:36 PM CDT documented in this encounter Progress Notes Rand Kam, GINNY FARMERM - 08/06/2020 2:00 PM CST Rena Turner presents to clinic alone at 32w4d for a routine appointment. She reports she is feeling well other than some pelvic pain. Normal movement. Denies bleeding, LOF, or regular, painful contractions. Denies headache / vision changes / RUQ pain. ??? Reviewed total weight gain of 12.2 kg (27 lb). Above range for expected total weight gain of 5 kg (11 lb)-9 kg (19 lb). Rena reports eating habits were less good over the holidays, hoping to get back to better choices this week. Discussed options for increased activity safely given winter weather. Encouraged treadmill 10-15 minutes 3x daily as tolerated. Reviewed goal of minimizing weight gain for remainder of . ??? Pelvic pain affecting : discussed trial of support belt. Prescription provided. ??? History of migraine: reviewed importance of contacting CNM with severe headache to consider assessment for preeclampsia. ??? Depression / anxiety: feels stable on lexapro. Plans to continue through delivery ??? Heartburn: resolved. Has carafate if needed for future episodes. checklist updated. Review need for PP VTE prophylaxis at [place]. Warning signs reviewed. RTC in 2 weeks, sooner if problems. ATE DUTY NURSE documented in this encounter Nursing Notes Gonzalez Mitchell MA - 08/06/2020 2:00 PM CST Chief Complaint Patient presents with ??? Care Initial BP 122/74 (BP Location: Right arm, Cuff Size: Adult Regular) Wt 110.2 kg (243 lb) LMP 12/22/2019 BMI 43.05 kg/m?? Estimated body mass index is 43.05 kg/m?? as calculated from the following: Height as of 04/09/20: 1.6 m (5' 3). Weight as of this encounter: 110.2 kg (243 lb). BP completed using cuff size: regular Questioned patient about current smoking habits. Pt. has never smoked. Reports pelvic pain over the weekend. ATE DUTY NURSE documented in this encounter Plan of Treatment Not on filedocumented as of this encounter Visit Diagnoses Diagnosis High-risk , third trimester - P rimary Pelvic pain affecting in third trimester, antepartum At risk for venous thromboembolism (VTE) Elevated blood pressure affecting pregna ncy in third trimester, antepartum documented in this encounter Additional Health Concerns Assessment Noted Time PHQ-9 Depression Total Score: 10 02/02/2020 8:23 AM CD T documented as of this encounter Care Teams Retirement Consultant Relationship Specialty Start Date End Date Blank Lemos MD PCP - General Internal Medicine 04/22/[address] [place] [address] KISHAN RENO [phone] Blank Lemos MD Assigned PCP 04/25/[address] [place] [address] KISHAN RENO [phone] Kathleen Lacy CNM Assigned OBGYN Provider 06/01/20 11/23/21 [address] [place] [address] documented as of this encounter
--- OUTSIDE RECORDS SUMMARY | 2022-04-09 07:18 | XMS_ITS | Encounter Summary ---
:1990 Author Organization [place] Address [facility] [place] [address] Care Team Providers Name Role Phone Blank Lemos MD Primary Care Provider Blank Lemos MD Unavailable Kathleen Lacy CNM Unavailable Reason for Visit Reason Onset Date Comments Palpitations 07/09/2020 Encounter Details Date Type Department Care Team Description 07/09/2020 Telephone [facility] Soledad sampson CNM Pal[facility]ations [facility] [place] [address] [place] [address] [facility] [address] [place] [address] [phone] Social History Tobacco Use Types Packs/Day Years [...] in contact with No / Unsure 07/09/2020 8:25 AM SOURCING INTERN someone who was confirmed or suspected to have Coronavirus / COVID-19? documented as of this encounter Miscellaneous Notes Telephone Encounter - Soledad Jones CNM - 07/09/2020 6:27 PM CST Pt paged non licensed operator YARELI with reports of very fast and irregular heart beat for the past hour. Reportsit started spontaneously and hasn't subsided despite rest. Pt audibly short of breath while talking over the phone although able to speak in full sentences. Instructed to go to ER for evaluation. Pt voiced understanding. Britney Jones CNM 07/09/2020 6:28 PM CING INTERN documented in this encounter Plan of Treatment Not on filedocumented as of this encounter Visit Diagnoses Not on filedocumented in this encounter Additional Health Concerns Assessment Noted Time PHQ-9 Depression Total Score: 10 02/02/2020 8:23 AM CD T documented as of this encounter Care Teams Insole Rounder Relationship Specialty Start Date End Date Blank Lemos MD PCP - General Internal Medicine 04/22/18 [address] [facility] KISHAN RENO [phone] Blank Lemos MD Assigned PCP 04/25/18 [address] [facility] KISHAN RENO [phone] Kathleen Lacy CNM Assigned OBGYN Provider 06/01/20 11/23/21 [address] [place] [address] documented as of this encounter
--- OUTSIDE RECORDS SUMMARY | 2022-04-09 07:18 | XMS_ITS | Encounter Summary ---
:1990 Author Organization [place] Address [facility] [place] [address] Care Team Providers Name Role Phone Blank Lemos MD Primary Care Provider Blank Lemos MD Unavailable Reason for Referral Diagnostic Imaging Other (Routine) - Closed Specialty Diagnoses / Procedures Referred By Contact Refer red To Contact Diagnoses Encounter for supervision of normal first in second trimester Soledad Jones CNM [facility] [address] [place] [address] [place] [address] Phone: Referral ID Status Reason Start Date Expiration Date Visits Requ ested Visits Authorized [id number] Closed 05/01/2020 05/01/2021 1 1 Encounter Details Date Type Department Care Team Description 05/01/2020 [facility] Only [facility] Soledad Jones Enc ounter for [facility] supervision of normal [place] [address] first in [address] [place], [place] second trimes [place] [address] (Primary Dx) [address] [place] [address] Social History Tobacco Use Types Packs/Day Years Used Date Former Smoker Cigarettes 0.25 8 Quit: 11/15/20 19 Smokeless Tobacco: Never Used Alcohol Use [...] Type Priority Associated Diagnoses Order S chedule [facility] Referral Routine Encounter for supervisi on Expected: 05/08/2020 REFERRAL- of normal first pregna ncy (Approximate), in second trimester Expires: 10/28/2020 documented as of this encounter Visit Diagnoses Diagnosis Encounter for supervision of normal firs t in second trimester - Primary Supervision of normal first documented in this encounter Additional Health Concerns Assessment Noted Time PHQ-9 Depression Total Score: 10 02/02/2020 8:23 AM CD T documented as of this encounter Care Teams Banking Management Consulting Manager Relationship Specialty Start Date End Date Blank Lemos MD PCP - General Internal Medicine 04/22/[address] [place] [address] [address] [place], KISHAN [address] Blank Lemos MD Assigned PCP 04/25/[address] [facility] [place] [address] documented as of this encounter
--- OUTSIDE RECORDS SUMMARY | 2022-04-09 07:18 | XMS_ITS | Encounter Summary ---
:1990 Author Organization [place] Address [address] [facility] [place] [address] Care Team Providers Name Role Phone Blank Lemos MD Primary Care Provider Blank Lemos MD Unavailable Kathleen Lacy CNM Unavailable Reason for Visit Reason Comments Care 25w 4d Encounter Details Date Type Department Care Team Description 06/18/2020 Office [facility] Chapo Jones for supervision of normal first in second trimester (Primary Dx); Visit [facility] YARELI Rowe Non morbid obesity, unspecified obesity type [place] [address] [place], [place] [address] [address] [place], [place] [phone] [address] (Work) [phone] Social History Tobacco Use Types Packs/Day Years [...] been in contact with No / Unsure 06/18/2020 2:11 PM SUPERVISORY CLERK someone who was confirmed or suspected to have Coronavirus / COVID-19? documented as of this encounter Last Filed Vital Signs Vital Sign Reading Time Taken Comments Blood Pressure 116/66 06/18/2020 2:16 PM SUPERVISORY CLERK Pulse - - Temperature - - Respiratory Rate - - Oxygen Saturation - - Inhaled Oxygen Concentration - - Weight 107 kg (236 lb) 06/18/2020 2:16 PM SUPERVISORY CLERK Height - - Body Mass Index 41.81 04/09/2020 1:36 PM CDT documented in this encounter Progress Notes Soledad Jones CNM - 06/18/2020 2:15 PM CST S: Feeling well. Denies uterine cramping, vaginal bleeding or leaking of fluid. States she may have felt rare lexus guzman contractions this week but have since resolved. Is currently taking B6 and unisom and feels nausea has generally resolved but will gag with certain drinks/foods/smells. Concernedabout gagging/ not tolerating the GCT. We talked through this, recommended protein rich breakfast prior to coming in for test. Discussed that if she cant tolerate the glucose drink, there are options to do QID testing at home for 2 weeks. 20lb weight gain so far in . O: Vitals: BP 116/66 (BP Location: Left arm, Cuff Size: Adult Large) Wt 107 kg (236 lb) LMP 12/22/2019 BMI 41.81 kg/m?? BMI= Body mass index is 41.81 kg/m??. Exam: Constitutional: healthy, alert and no distress Respiratory: respirations even and unlabored Gastrointestinal: Abdomen soft, non-tender. Fundus measures appropriate for gestational age. heart tones hear without difficulty and within normal limits : Deferred Psychiatric: mentation appears normal and affect normal/bright A: Encounter for supervision of normal first in second trimester. P: Discussed GCT/repeat RPR for next visit, handout provided, reminded of longer appointment. Reviewed goal weight gain during based on her pre- BMI is 11- 20lbs. Encouraged tocontinue healthy eating, regular exercise. Will continue to monitor this. Discussed labor precautions. Tdap next visit Need for Rhogam? No Encouraged patient to call with any questions or concerns. Return to clinic 4 weeks NORM Kyle participated in the care of this patient under direct supervision of Octavia Jones CNM. I was present with the student who participated in the service and documentation of the services provided. I have verified the history and personally performed the physical exam and medical decision making as documented by the student and edited by meReno Kim. Octavia Jones CNM 06/18/2020 2:34 PM RVISORY CLERK documented in this encounter Plan of Treatment Not on filedocumented as of this encounter Visit Diagnoses Diagnosis Encounter for supervision of normal firs t in second trimester - Primary Supervision of normal first Non morbid obesity, unspecified obesity type documented in this encounter Additional Health Concerns Assessment Noted Time PHQ-9 Depression Total Score: 10 02/02/2020 8:23 AM CD T documented as of this encounter Care Teams Envelope Adjuster Relationship Specialty Start Date End Date Blank Lemos MD PCP - General Internal Medicine 04/22/[address] [place] [address] KISHAN RENO [phone] Blank Lemos MD Assigned PCP 04/25/[address] [place] [address] KISHAN RENO [phone] Kathleen Lacy CNM Assigned OBGYN Provider 06/01/20 11/23/21 Cipriano Rivera [place], [place] [phone] documented as of this encounter
--- OUTSIDE RECORDS SUMMARY | 2022-04-09 07:18 | XMS_ITS | Encounter Summary ---
:1990 Author Organization [place] Address [address] [facility] [place] [address] Care Team Providers Name Role Phone Blank Lemos MD Primary Care Provider Blank Lemos MD Unavailable Reason for Referral Diagnostic Imaging Ultrasound (Routine) - Closed Specialty Diagnoses / Procedures Referred By Contact Refer red To Contact Diagnoses related condition, antepartum Soledad Jones CNM Procedures [facility] Comprehensive Single [address] [place] [address] Referral ID Status Reason Start Date Expiration Date Visits Requ ested Visits Authorized [id number] Closed 05/01/2020 05/01/2021 1 1 Encounter Details Date Type Department Care Team Description 05/01/2020 Transcribe Orders [employer] Robert, Pregn graciela related Maternal YARELI Rowe condition, [facility] [address] antepartum (Primary [facility] Dx) [address] [place], [place] [address] [address] [place], [place] [phone] [phone] (Work) [phone] Social History Tobacco Use Types Packs/Day Years [...] on filedocumented as of this encounter Results [facility] US Comprehensive Single (05/11/2020 10:21 AM CDT) Anatomical Region Laterality Modality Ultrasound Specimen (Source) Anatomical Collection Method Collection Time Re ceived Time Location / / Volume Laterality 05/11/2020 9:20 AM CDT Impressions 05/11/2020 10:33 AM CDT IMPRESSION 1) Mendoza intrauterine at 2 0w1d gestational age. 2) None of the anomalies commonly detect ed by ultrasound were evident in the detailed anatomic survey as described above. 3) Growth parameters and estimated weight were consistent with established dates. 4) The amniotic fluid volume appeared no rmal. 5) On transabdominal imaging the cervix appears long and closed. Narrative 05/11/2020 10:33 AM CDT Comprehensive Pat. Name: RENA RESENDIZ Study Date : 05/11/2020 9:20am Pat. NO: [id number] Referring ??MD: JULIO ESTRELLA [facility] Site: [facility] Cemetery Manager: Moraima Keita RD MS : 1990 Age: 30 INDICATION Suboptimal heart anatomy on outside US. METHOD Transabdominal ultrasound examination. V iew: Sufficient Mendoza . Number of fetuses: 1 DATING ? Date ?Details ?Gest. age ?FATUMA LMP ?12/22/2019 ? 20 w + 1 d ? 09/27/2020 Prior assessment ? 7/ ? GA: 8 w + 2 d ?19 w + 6 d ? 09/29/2020 U/S ? 05/11/2020 ? based upon AC, BPD, Femur, HC ? 20 w + 3 d ? 09/25/2020 Assigned dating ?Dating performed on 05/11/2020, based on the LMP ?20 w + 1 d ? 09/27/2020 GENERAL EVALUATION Cardiac activity present. FHR 157 bpm. movements present. Presentation Variable. Placenta Posterior, No Previa, > 2 cm fr om internal os. Umbilical cord 3 vessel cord. Amniotic fluid Amount of AF: normal. MVP 5.1 cm. BIOMETRY Main Biometry: BPD ?47.7 ?mm ? 20w 3d ?Butch OFNichole ?60.5 ?mm ? 19w 4d ?Nicolaides HC ?175.7 ?mm ?20w 1d ?Hadlock Cerebellum tr ?20.7 ? mm ?19w 5d ?Nicolaides AC ?160.2 ?mm ?21w 1d ?Hadlock Femur ?32.2 ? mm ?20w 0d ?Hadlock Humerus ?31.1 ?mm ? 20w 2d ?Wendy Weight Calculation: EFW ? 362 ? g EFW (lb,oz) ? 0 lb 13 ? oz EFW by ?Hadlock ([id number]) Head / Face / Neck Biometry: Marking Room Supervisor ? 7.5 ? mm CM ?3.7 ? mm Nasal bone ? 6.4 ? mm Nuchal fold ? 4.4 ? mm ANATOMY The following structures appear normal: Head / Neck ? Cranium. Head size. Head shape. Lateral ventricles. Choroid plexus. Midline falx. Cavum septi pellucidi. Cerebellum. Cisterna magna. ? Parenchyma. Thalami. Vermis. ? Neck. Nuchal fold. Face ? Lips. Profile. Nose. Maxilla. Mandible. Orbits. Lens. Heart / Thorax ?4-chamber view. RVOT view. LVOT view. Situs. Aortic arch view. Bicaval view. Ductal arch view. Superior vena cava. Inferior vena cava. 3-vessel ? view. 9-tkukyk-airbgwy view. Cardiac position. Cardiac size. Cardiac rhythm. ? Right lung. Left lung. Diaphragm. Abdomen ? Abdominal wall. Cord insertion. Stomach. Kidneys. Bladder. Liver. Bowel. Genitals. Spine ?Cervical spine. Thoracic spine. Lumbar spine. Sacral spine. Extremities / Skeleton ?Rig ht arm. Right hand. Left arm. Left hand. Right leg. Right foot. Left leg. Left foot. Gender: female. MATERNAL STRUCTURES Cervix ?Visualized ? Appearance: Appears Closed ? Cervical length 47.0 mm Right Ovary ?Not visualized Left Ovary ?Not visualized RECOMMENDATION Thank-you for referring your patient for a comprehensive ultrasound. I discussed the findings on today's ultr asound with the patient. I reviewed the limitations of ultrasound both in detecting aneuploidy and structural abnormalities. The patient declined screening. Further ultrasound studies as clinically indicated. Return to primary provider for continued care. anomalies may be present but not detected Procedure Note Ana Danielle MD - 05/11/2020Formattin g of this note might be different from the original. Comprehensive Pat. Name:Noemi RESENDIZ Date: 9:20am Pat. NO: [id number] :SOLEDAD WERNER [facility]Moraima Keita RDMS :1990Age:30 INDICATION Suboptimal heart anatomy on outside US. METHOD Transabdominal ultrasound examination. V iew: Sufficient Mendoza . Number of fetuses: 1 DATING Date Details Gest. age FATUMA LMP 12/22/2019 20 w + 1 d 09/27/2020 Prior assessment 02/20/2020 GA: 8 w + 2 d 19 w + 6 d 09/29/2020 U/S 05/11/2020 based upon AC, BPD, Femur, HC 20 w + 3 d 09/25/2020 Assigned dating Dating performed on 05/11, based on the LMP 20 w + 1 d 09/27/2020 GENERAL EVALUATION Cardiac activity present. FHR 157 bpm. movements present. Presentation Variable. Placenta Posterior, No Previa, > 2 cm fr om internal os. Umbilical cord 3 vessel cord. Amniotic fluid Amount of AF: normal. MVP 5.1 cm. BIOMETRY Main Biometry: BPD 47.7 mm 20w 3d Hadlock OFD 60.5 mm 19w 4d Nicolaides HC 175.7 mm 20w 1d Hadlock Cerebellum tr 20.7 mm 19w 5d Nicolaides AC 160.2 mm 21w 1d Hadlock Femur 32.2 mm 20w 0d Hadlock Humerus 31.1 mm 20w 2d Wendy Weight Calculation: EFW 362 g EFW (lb,oz) 0 lb 13 oz EFW by Hadlock ([id number]) Head / Face / Neck Biometry: Marking Room Supervisor 7.5 mm CM 3.7 mm Nasal bone 6.4 mm Nuchal fold 4.4 mm ANATOMY The following structures appear normal: Head / Neck Cranium. Head size. Head sha pe. Lateral ventricles. Choroid plexus. Midline falx. Cavum septi pellucidi. Cerebellum. Cisterna magna. Parenchyma. Thalami. Vermis. Neck. Nuchal fold. Face Lips. Profile. Nose. Maxilla. Chloe ble. Orbits. Lens. Heart / Thorax 4-chamber view. RVOT view . LVOT view. Situs. Aortic arch view. Bicaval view. Ductal arch view. Superior vena cava. Inferior vena cava. 3-vessel view. 4-ohnggf-dawgmdv view. Cardiac po sition. Cardiac size. Cardiac rhythm. Right lung. Left lung. Diaphragm. Abdomen Abdominal wall. Cord insertion. Stomach. Kidneys. Bladder. Liver. Bowel. Genitals. Spine Cervical spine. Thoracic spine. Julienne mbar spine. Sacral spine. Extremities / Skeleton Right arm. Right hand. Left arm. Left hand. Right leg. Right foot. Left leg. Left foot. Gender: female. MATERNAL STRUCTURES Cervix Visualized Appearance: Appears Closed Cervical length 47.0 mm Right Ovary Not visualized Left Ovary Not visualized RECOMMENDATION Thank-you for referring your patient for a comprehensive ultrasound. I discussed the findings on today's ultr asound with the patient. I reviewed the limitations of ultrasound both in detecting aneuploidy and structural abnormalities. The patient declined screening. Further ultrasound studies as clinically indicated. Return to primary provider for continued care. anomalies may be present but not detected IMPRESSION 1) Mendoza intrauterine at 2 0w1d gestational age. 2) None of the anomalies commonly detect ed by ultrasound were evident in the detailed anatomic survey as described above. 3) Growth parameters and estimated weight were consistent with established dates. 4) The amniotic fluid volume appeared no rmal. 5) On transabdominal imaging the cervix appears long and closed. Soledad Jones [facility] US ORDERABLES documented in this encounter Visit Diagnoses Diagnosis related condition, antepartum - Primary related condition, antepartum documented in this encounter Additional Health Concerns Assessment Noted Time PHQ-9 Depression Total Score: 10 02/02/2020 8:23 AM CD T documented as of this encounter Care Teams Boiler Testing Technician Relationship Specialty Start Date End Date Blank Lemos MD PCP - General Internal Medicine 04/22/[address] [place] [address] KISHAN RENO [phone] Blank Lemos MD Assigned PCP 04/25/[address] [place] [address] KISHAN RENO [phone] documented as of this encounter
--- OUTSIDE RECORDS SUMMARY | 2022-04-09 07:18 | XMS_ITS | Encounter Summary ---
:1990 Author Organization [place] Address [facility] [place] [address] Care Team Providers Name Role Phone Blank Lemos MD Primary Care Provider Blank Lemos MD Unavailable Kathleen Lacy CNM Unavailable Reason for Visit Reason Comments Care Encounter Details Date Type Department Care Team Description 07/23/2020 Office [facility] Kathleen Lacy Enco unter for supervision of normal first in third trimester (Primary Dx); [facility] CNM Anxiety during in second trime ster, antepartum [place] [address] [place], [place] [address] [address] [place], [place] [phone] [address] (Work) [phone] Social History Tobacco Use Types Packs/Day Years [...] with No / Unsure 07/23/2020 1:56 PM DIVORCE ATTORNEY someone who was confirmed or suspected to have Coronavirus / COVID-19? documented as of this encounter Last Filed Vital Signs Vital Sign Reading Time Taken Comments Blood Pressure 118/72 07/23/2020 2:00 PM DIVORCE ATTORNEY Pulse - - Temperature - - Respiratory Rate - - Oxygen Saturation - - Inhaled Oxygen Concentration - - Weight 107.5 kg (237 lb) 07/23/2020 2:00 PM DIVORCE ATTORNEY Height - - Body Mass Index 41.98 04/09/2020 1:36 PM CDT documented in this encounter Patient Instructions Patient InstructionsKathleen Lacy CNM - 07/23/2020 2:00 PM CST [email or web address]/ Evidence Based website Weeks 27 thru 32 - Gestational Age ( Age - Weeks 25 thru 30): The fetus really fills out over these next few weeks, storing fat on the body, reaching about 15-17 inches long and weighing about 4-4 ?? lbs by the 32nd week. The lungs are not fully mature yet, but some rhythmic breathing movements are occurring. The bones are fully developed, but are still soft andpliable. The fetus is storing its own calcium, iron and phosphorus. The eyelids open after being closed, since the end of the first trimester. RCE ATTORNEY documented in this encounter Progress Notes Kathleen Lacy CNM - 07/23/2020 2:00 PM CST S: Feels well, Baby active. Denies uterine cramping, vaginal bleeding or leaking of fluid. Was seen in ED on 07/09 d/t heart palpitations. She had a normal EKG and labs. She was told it was likely a panic attack. She denies any heart palpitations or SOB since. She did have an elevated BP during her ED visit of 154/94, but BP has been normal prior to that and since. Rena has decided to continue her Lexapro through delivery. She has questions about red raspberry leaf tea to drink as a uterine toner. We discussed there is very little evidence to either support or refute its use. Provided with link to Evidence Based article that reviews the limited evidence surrounding the use of this tea. Discussed there is a study showing date consumption at term (6 dates/day) has been associated with shorter labors and higher mayo scores at time of admission. O: Vitals: BP 118/72 (BP Location: Left arm, Cuff Size: Adult Regular) Wt 107.5 kg (237 lb) LMP 12/22/2019 BMI 41.98 kg/m?? BMI= Body mass index is 41.98 kg/m??. Exam: Constitutional: healthy, alert and no distress Respiratory: respirations even and unlabored Gastrointestinal: Abdomen soft, non-tender. Fundus measures appropriate for gestational age. heart tones hear without difficulty and within normal limits : Deferred Psychiatric: mentation appears normal and affect normal/bright A/P: 1. (Z34.03) Encounter for supervision of normal first in third trimester (primary encounter diagnosis) 2. (O99.342, F41.9) Anxiety during in second trimester, antepartum - Stable on Lexapro, pt plans to continue Lexapro through delivery Discussed patient options for contraception. Patient is planning unsure, reviewed progesterone-only options as pt plans to breastfeed Encouraged patient to call with any questions or concerns. Return to clinic 2 weeks Kathleen Lacy APRN, CNM RCE ATTORNEY documented in this encounter Nursing Notes Gonzalez Mitchell, SARAH - 07/23/2020 2:00 PM CST Chief Complaint Patient presents with ??? Care Initial BP 118/72 (BP Location: Left arm, Cuff Size: Adult Regular) Wt 107.5 kg (237 lb) LMP 12/22/2019 BMI 41.98 kg/m?? Estimated body mass index is 41.98 kg/m?? as calculated from the following: Height as of 04/09/20: 1.6 m (5' 3). Weight as of this encounter: 107.5 kg (237 lb). BP completed using cuff size: regular Questioned patient about current smoking habits. Pt. has never smoked. Gonzalez Mitchell MA RCE ATTORNEY documented in this encounter Plan of Treatment Not on filedocumented as of this encounter Visit Diagnoses Diagnosis Encounter for supervision of normal firs t in third trimester - Primary Supervision of normal first Anxiety during in second trime ster, antepartum documented in this encounter Additional Health Concerns Assessment Noted Time PHQ-9 Depression Total Score: 10 02/02/2020 8:23 AM CD T documented as of this encounter Care Teams Dry Pan Charger Relationship Specialty Start Date End Date Blank Lemos MD PCP - General Internal Medicine 04/22/[address] [place] [address] K[place]AN RENO [id number] Blank Lemos MD Assigned PCP 04/25/[address] [place] [address] KISHAN RENO [id number] Kathleen Lacy CNM Assigned OBGYN Provider 06/01/20 11/23/21 [address] [place] [address] documented as of this encounter
--- OUTSIDE RECORDS SUMMARY | 2022-04-09 07:18 | XMS_ITS | Encounter Summary ---
:1990 Author Organization [place] Address [address] [place] [address] Care Team Providers Name Role Phone Blank Lemos MD Primary Care Provider Blank Lemos MD Unavailable Reason for Visit Reason Comments Ultrasound L2- subopt anatomy on outsid e screen Encounter Details Date Type Department Care Team Description 05/11/2020 Office Visit [facility] EugenejodieStevan nnah, CN [address] [place], [place] [address] related Maternal Ana Danielle MD [address] [place], [place] [address] condition, antepartum [facility] (Primary Dx) [place] [address] [facility] [address] [place] [address] Social History Tobacco Use Types [...] / COVID-19? documented as of this encounter Progress Notes Ana Danielle MD - 05/11/2020 10:00 AM CDT Please see ultrasound report under Imaging tab for details of today's ultrasound. Ana Danielle MD Maternal- Medicine documented in this encounter Plan of Treatment Not on filedocumented as of this encounter Visit Diagnoses Diagnosis related condition, antepartum - Primary documented in this encounter Additional Health Concerns Assessment Noted Time PHQ-9 Depression Total Score: 10 02/02/2020 8:23 AM CD T documented as of this encounter Care Teams Frame And Scrap Crusher Relationship Specialty Start Date End Date Blank Lemos MD PCP - General Internal Medicine 04/22/[address] [place] [address] K[place]AN RENO [id number] Blank Lemos MD Assigned PCP 04/25/[address] [place] [address] KISHAN RENO [id number] documented as of this encounter
--- OUTSIDE RECORDS SUMMARY | 2022-04-09 07:18 | XMS_ITS | Encounter Summary ---
:1990 Author Organization [place] Address [facility] [place] [address] Care Team Providers Name Role Phone Blank Lemos MD Primary Care Provider Blank Lemos MD Unavailable Reason for Visit Reason Comments Care 21w 4d, discsuss SOB, sweati ng, gagging while eating, medications and itching hands for a couple d ays Encounter Details Date Type Department Care Team Description 05/21/2020 Office [facility] Kathleen Lacy, Carlo itus of in second trimester (Primary Dx); [facility] CNM Encounter for supervision of normal firs t in second trimester; [place] [address] Anxiety during in second trimester, antepartum [address] [place], [place] [address] [address] [place], [place] [phone] (Work) [phone] Social History Tobacco Use Types Packs/Day Years [...] been in contact with No / Unsure 05/21/2020 9:24 AM CDT someone who was confirmed or suspected to have Coronavirus / COVID-19? documented as of this encounter Last Filed Vital Signs Vital Sign Reading Time Taken Comments Blood Pressure 122/60 05/21/2020 9:30 AM CDT Pulse - - Temperature - - Respiratory Rate - - Oxygen Saturation 97% 05/21/2020 9:30 AM CDT Inhaled Oxygen Concentration - - Weight 105.2 kg (232 lb) 05/21/2020 9:30 AM CDT Height - - Body Mass Index 41.1 04/09/2020 1:36 PM CDT documented in this encounter Progress Notes Kathleen Lacy CNM - 05/21/2020 9:30 AM CDT S: Feels well, Has started feeling movement. Denies uterine cramping, vaginal bleeding or leaking of fluid Reports she has been experiencing shortness of breath for her entire . Denies any fainting,chest pain, or associated symptoms. Reports it worsens with activity. Discussed physiologic changes in that can lead to shortness of breath. Encouraged to call if it worsens or she develops associated symptoms. She also reports excessive sweating throughout . Discussed this can also be normal in d/t shifts in hormones. She states that she no longer has n/v, but reports gagging after some meals which prevents her from eating the rest of the day. Discussed that she can continue her vit b6 and unisom. Encouraged to try to see if there is any dietary trigger to her gagging. Call if this worsens. We could try rx antiemetics but discussed this doesn't always help with gagging. She also states that she developed itching on the palms of her hands that is worse at night. Denies rash or any itching on the soles of her feet. Pt has questions about if she should continue taking Lexapro. She states she was told previously that it should be discontinued before delivery. We discussed small risk of symptoms in baby such as pulmonary hypertension, irritability, etc. Discussed that choice about whether or not to continue medication in third trimester must be individualized. We also reviewed the risks of relapse/worsening maternal mental health should be taken into consideration. If she does discontinue for delivery, we can start it immediately . Pt states she will discuss further with her prior to making a decision. O: Vitals: BP 122/60 (BP Location: Right arm, Cuff Size: Adult Large) Wt 105.2 kg (232 lb) LMP 12/22/2019 SpO2 97% BMI 41.10 kg/m?? BMI= Body mass index is 41.1 kg/m??. Exam: Constitutional: healthy, alert and no distress Respiratory: respirations even and unlabored Gastrointestinal: Abdomen soft, non-tender. Fundus measures appropriate for gestational age. heart tones hear without difficulty and within normal limits : Deferred Psychiatric: mentation appears normal and affect normal/bright A/P: 1. (O99.712, L29.9) Pruritus of in second trimester (primary encounter diagnosis) Plan: Comprehensive metabolic panel (BMP + Alb, Alk Phos, ALT, AST, Total. Bili, TP), Bile acids total - Discussed my suspicion for cholestasis of is low given her early gestational age, but will check CMP/bile acids to rule out - Discussed she can try po benadryl, oatmeal baths, and topical steroids BIDx7 days to help relieve itching if she labs come back normal 2. (Z34.02) Encounter for supervision of normal first in second trimester 3. (O99.342, F41.9) Anxiety during in second trimester, antepartum - see above discussion. Unsure if she wants to discontinue lexapro prior to delivery. Follow up US with MARY moreno Follow up in 4wks or prn Ktahleen Lacy APRN, YARELI documented in this encounter Nursing Notes Luz Maria Abreu - 05/21/2020 9:30 AM CDT Chief Complaint Patient presents with ??? Care 21w 4d, discsuss SOB, sweating, gagging while eating, medications and itching hands for a couple days Initial BP 122/60 (BP Location: Right arm, Cuff Size: Adult Large) Wt 105.2 kg (232 lb) LMP 12/22/2019 SpO2 97% BMI 41.10 kg/m?? Estimated body mass index is 41.1 kg/m?? as calculated from the following: Height as of 04/09/20: 1.6 m (5' 3). Weight as of this encounter: 105.2 kg (232 lb). BP completed using cuff size: large Questioned patient about current smoking habits. Pt. quit smoking some time ago. The following Due: NONE Luz Maria Abreu CMA documented in this encounter Plan of Treatment Not on filedocumented as of this encounter Procedures Procedure Name Priority Date/Time Associated Comments Diagnosis BILE ACIDS TOTAL Routine 05/21/2020 9:56 AM Pruritus of Resul ts for this CDT in second procedur e are in trimester the results section. COMPREHENSIVE Routine 05/21/2020 9:56 AM Pruritus of Results for this METABOLIC PANEL CDT in second proce dure are in trimester the results section. documented in this encounter Results Bile acids total (05/21/2020 9:56 AM CDT) athologist Signature Bile Acids 6 0 - 10 05/22/2020 [place] Total umol/L 3:36 PM CDT [facility] Comment: (Note) INTERPRETIVE INFORMATION: Bile Acids, To carlita Reference Interval applies to fasting sp ecimens. Performed By: [facility] [address] [place] [id number] [employer] Consultant: Annalise Hope MD Specimen Anatomical Collection Method Collection Time Receive d Time (Source) Location / / Volume Laterality Blood specimen 05/21/2020 9:56 AM 020 (specimen) CDT 10:01 AM CDT Kathleen Lacy CNM LAB - BLOOD ORDERABLES Performing Organization Address City/State/ZIP Code Phon e Number [facility] [address] [place], [place] [address] [address] (ABNORMAL) Comprehensive metabolic panel (BMP + Alb, Alk Phos, ALT, AST, Total. Bili, TP) (05/21/2020 9:56 AM CDT) Analysis Performed At [facility] Time Signature Sodium 139 133 - 144 05/22/2020 [place] mmol/L 7:24 AM CDT [facility] Potassium 4.0 3.4 - 5.3 05/22/2020 [place] mmol/L 7:24 AM CDT [facility] Chloride 108 94 - 109 05/22/2020 [place] mmol/L 7:24 AM CDT [facility] Carbon Dioxide 21 20 - 32 05/22/2020 [place] mmol/L 7:48 AM T [facility] Anion Gap 10 3 - 14 05/22/2020 [place] mmol/L 7:48 AM T [facility] Glucose 110 (H) 70 - 99 05/22/2020 [place] mg/dL 7:48 AM T [facility] Comment: Non Fasting Urea Nitrogen 5 (L) 7 - 30 mg/dL 05/22/2020 7:48 AM T [facility] Creatinine 0.58 0.52 - 1.04 mg/dL 05/22/2020 7:48 AM CD T [facility] GFR Estimate >90 >60 05/22/2020 7:48 AM T [facility] mL/min/{1.73_m2} [facility] Comment: Non GFR Calc Starting 07/27/2018, serum creatinine ba sed estimated GFR (eGFR) will be calculated using the Chronic Kidney Dise ase Epidemiology Collaboration (CKD-EPI) equation. GFR Estimate If >90 >60 mL/min/{1.73_m2} 05/22/2020 7: 48 AM [facility] Black T [facility] Comment: GFR Calc Starting 07/27/2018, serum creatinine ba sed estimated GFR (eGFR) will be calculated using the Chronic Kidney Dise ase Epidemiology Collaboration (CKD-EPI) equation. Calcium 8.9 8.5 - 10.1 05/22/2020 7:48 AM [place] [facility] mg/dL CDT [facility] Bilirubin Total 0.2 0.2 - 1.3 05/22/2020 7:55 AM [facility] mg/dL CDT [facility] Albumin 2.6 (L) 3.4 - 5.0 g/dL 05/22/2020 7:55 AM [facility] CDT [facility] Protein Total 6.4 (L) 6.8 - 8.8 g/dL 05/22/2020 7:55 AM [facility] CDT [facility] Alkaline Phosphatase 73 40 - 150 U/L 05/22/2020 7:55 AM [facility] ALT 18 0 - 50 U/L 05/22/2020 7:55 AM [place] [facility] CDT [facility] AST 14 0 - 45 U/L 05/22/2020 7:55 AM [facility] CDT [facility] Specimen Anatomical Collection Method Collection Time Receive d Time (Source) Location / / Volume Laterality Blood specimen 05/21/2020 9:56 AM 020 (specimen) CDT 10:01 AM CDT Kathleen Lacy CNM LAB - BLOOD ORDERABLES Performing Organization Address City/State/ZIP Code Phon e Number [facility] [address] [place] [address] documented in this encounter Visit Diagnoses Diagnosis Pruritus of in second trimeste r - Primary Encounter for supervision of normal firs t in second trimester Supervision of normal first Anxiety during in second trime ster, antepartum documented in this encounter Additional Health Concerns Assessment Noted Time PHQ-9 Depression Total Score: 10 02/02/2020 8:23 AM CD T documented as of this encounter Care Teams Urinalysis Technician Relationship Specialty Start Date End Date Blank Lemos MD PCP - General Internal Medicine 04/22/18 [address] [place] [address] Blank Lemos MD Assigned PCP 04/25/18 [address] [place] [address] documented as of this encounter
--- OUTSIDE RECORDS SUMMARY | 2022-04-09 07:18 | XMS_ITS | Encounter Summary ---
:1990 Author Organization [facility] Address [address] [place] [address] Care Team Providers Name Role Phone Blank Lemos MD Primary Care Provider Blank Lemos MD Unavailable Encounter Details Date Type Department Care Team Description 05/21/2020 Travel Social History Tobacco Use Types Packs/Day [...] documented as of this encounter Care Teams Radiology Rn Relationship Specialty Start Date End Date Blank Lemos MD PCP - General Internal Medicine 04/22/[address] [place] [address] K[place]AN RENO [id number] Blank Lemos MD Assigned PCP 04/25/[address] [place] [address] K[place]AN RENO [id number] documented as of this encounter
--- OUTSIDE RECORDS SUMMARY | 2022-04-09 07:18 | XMS_ITS | Encounter Summary ---
:1990 Author Organization [place] Address [address] [place] [address] Care Team Providers Name Role Phone Blank Lemos MD Primary Care Provider Blank Lemos MD Unavailable Kathleen LacyM Unavailable Encounter Details Date Type Department Care Team Description 08/06/2020 Travel Social History Tobacco Use Types Packs/Day [...] with No / Unsure 08/06/2020 1:53 PM BUILDING MOVER someone who was confirmed or suspected to have Coronavirus / COVID-19? documented as of this encounter Plan of Treatment Not on filedocumented as of this encounter Visit Diagnoses Not on filedocumented in this encounter Additional Health Concerns Assessment Noted Time PHQ-9 Depression Total Score: 10 02/02/2020 8:23 AM CD T documented as of this encounter Care Teams Program Support Assistant Relationship Specialty Start Date End Date Blank Lemos MD PCP - General Internal Medicine 04/22/[address] [place] [address] KISHAN RENO [phone] Blank Lemos MD Assigned PCP 04/25/[address] [place] [address] KISHAN RENO [phone] Kathleen Lacy CNM Assigned OBGYN Provider 06/01/20 11/23/21 [address] [place] [id number] documented as of this encounter
--- OUTSIDE RECORDS SUMMARY | 2022-04-09 07:18 | XMS_ITS | Encounter Summary ---
:1990 Author Organization [place] Address [facility] [place] [address] Care Team Providers Name Role Phone Blank Lemos MD Primary Care Provider Blank Lemos MD Unavailable Kathleen Lacy CNM Unavailable Reason for Visit Reason Comments Shortness of Breath Tachycardia Encounter Details Date Type Department Care Team Description 07/09/2020 Emergency [facility] Chilango Lentz MD [facility] [address] [place] [address] [place] [address] Panic attack; [facility] Emergency Dep t Avelino Weinstein MD [facility] [address] [place], [place] [phone] 28 weeks gestation of [address] [place] [address] Social History Tobacco Use Types Packs/Day Years [...] with No / Unsure 07/09/2020 7:18 PM ROTARY DRILLER someone who was confirmed or suspected to have Coronavirus / COVID-19? documented as of this encounter Last Filed Vital Signs Vital Sign Reading Time Taken Comments Blood Pressure 154/94 07/09/2020 7:19 PM ROTARY DRILLER Pulse 90 07/09/2020 7:19 PM ROTARY DRILLER Temperature 36.4 ??C (97.6 ??F) 07/09/2020 7:19 PM ROTARY DRILLER Respiratory Rate 16 07/09/2020 7:19 PM ROTARY DRILLER Oxygen Saturation 99% 07/09/2020 7:19 PM ROTARY DRILLER Inhaled Oxygen Concentration - - Weight - - Height - - Body Mass Index - - documented in this encounter Discharge Instructions AttachmentsThe following attachments cannot be sent through Care Everywhere. Panic Attack (American)documented in this encounter Medications at Time of Discharge Medication Sig Dispensed Refills Start Date End Date Vit-Fe Take 1 tablet by 0 Fumarate-FA ( mouth daily MULTIVITAMIN W/IRON) 27-0.8 MG tablet acetaminophen (TYLENOL) Take 2 tablets (650 0 11/05/2020 325 MG tabletIndications: mg) by mouth every 4 Postoperative state hours as needed for mild pain doxylamine (UNISOM) 25 MG Take 25 mg by mouth 0 10/18/2020 TABS tablet At Bedtime escitalopram (LEXAPRO) 20 Take 1 tablet (20 90 tablet 0 08/201908/27/2020 MG tabletIndications: mg) by mouth daily Generalized anxiety disorder, Bipolar I disorder (H) escitalopram (LEXAPRO) 20 Take 1 tablet (20 90 tablet 1 07/10/2020 MG tabletIndications: mg) by mouth daily Generalized anxiety disorder, Bipolar I disorder (H) ibuprofen (ADVIL/MOTRIN) Take 2 tablets (400 0 [...] as needed for moderate to severe pain Pyridoxine HCl (B-6 PO) 0 0 09/30/2020 sucralfate (CARAFATE) 1 Take 1 tablet (1 g) 90 tablet 1 08/27/2020 GM tabletIndications: by mouth 4 times Encounter for supervision daily of normal first , third trimester, Heartburn during in third trimester Vitamin D, Take 2,000 Int'l 0 09/30/19 21 Cholecalciferol, 25 MCG Units by mouth daily (1000 UT) TABS documented as of this encounter ED Notes Moraima Urbina RN - 07/09/2020 7:18 PM CST A&O x4. ABC's intact. 28 wk Pt arrives with c/o fast heart rate that started around 1800 this evening. She spoke with her ways operator who thought she sounded SOB and should come to the ER for evaluation. Did call OB charge who wants patient to be seen in the ER. RY DRILLER Avelino Weinstein MD - 07/09/2020 7:14 PM CST History Chief Complaint: Shortness of Breath and Tachycardia KEARA Turner is a 30 year old female who is 28 weeks (G1) with a history of anxiety and panic attacks who presents with shortness of breath and tachycardia. The patient states that she went to picker packer her routine prescriptions at the store and as she got home noted the onset of shortness of breath and felt her heart racing. She states that she is feeling better now. She is able to feel her baby moving and denies contractions or vaginal bleeding. She denies fever, cough, or chest pain. The patient reports history of anxiety and panic attacks. She states that her symptoms today felt similar to this. Allergies: Doxycycline Medications: Unisom Lexapro Melatonin Carafate Pyridoxine Past Medical History: Insomnia Bipolar I disorder Depression Anxiety Obesity Migraine without aura ASCUS with positive high risk HPV Past Surgical History: Exploratory laparotomy Tonsillectomy Family History: Thyroid disease - mother Social History: Smoking Status: Former Smoker Smokeless Tobacco: Never Used Alcohol Use: No Marital Status: Review of Systems Constitutional: Negative for fever. Respiratory: Positive for shortness of breath. Negative for cough. Cardiovascular: Positive for palpitations. Negative for chest pain. Genitourinary: Negative for vaginal bleeding. Psychiatric/Behavioral: The patient is nervous/anxious. All other systems reviewed and are negative. Physical Exam Patient Vitals for the past 24 hrs: BP Temp Temp src Pulse Resp SpO2 07/09/201918 154/94 97.6 ??F (36.4 ??C) Temporal 90 16 99 % Physical Exam Nursing note and vitals reviewed. Constitutional: Cooperative. HENT: Mouth/Throat: Mucous membranes are normal. Cardiovascular: Normal rate, regular rhythm and normal heart sounds. No murmur. Pulmonary/Chest: Effort normal and breath sounds normal. No respiratory distress. No wheezes. No rales. Abdominal: Soft. Normal appearance and bowel sounds are normal. No distension. There is no tenderness. Musculoskeletal: No LE edema Neurological: Alert. Oriented x4 Skin: Skin is warm and dry. Psychiatric: Normal mood and affect. Emergency Department Course ECG: ECG taken at 1918, ECG read at 1921 Normal sinus rhythm Normal ECG Rate 75 bpm. OK interval 150 ms. QRS duration 74 ms. QT/QTc 382/426 ms. P-R-T axes 6 20 16. Laboratory: Laboratory findings were communicated with the patient who voiced understanding of the findings. CBC: WBC 14.3 (H), HGB 12.5, PLT 328 BMP: K 3.3 (L), Glucose 117 (H), BUN 4 (L) o/w WNL (Creatinine 0.62) Troponin (1920): <0.015 Emergency Department Course: Nursing notes and vitals reviewed. 1918 ECG obtained as noted above. 1920 IV was inserted and blood was drawn for laboratory testing, results above. 2301 I performed an exam of the patient as documented above. 2306 Findings and plan explained to the Patient. Patient discharged home with instructions regardingsupportive care, medications, and reasons to return. The importance of close follow-up was reviewed. Impression & Plan Medical Decision Making: Rena Turner is a 30 year old G1 female at 28 weeks gestation who presents for evaluation of an episode of palpitations and shortness of breath that have now resolved. EKG is reassuring with no findings concerning for any underlying malignant arrhythmia. Troponin and basic labs are also reassuring. She has a slight leukocytosis but no fever, cough or signs or symptoms for sepsis or infectious process. There is no concerns from an obstetric standpoint. She has had no contractions or vaginal bleeding. With a history of panic attacks, this is most likely what this episode represents. Return forprocesses discussed otherwise standard care and follow up with primary physician. Diagnosis: ICD-10-CM 1. Panic attack F41.0 2. 28 weeks gestation of Z3A.28 Disposition: Patient is discharged home. Scribe Disclosure: Lily Del Rio, am serving as a scribe at 11:07 PM on 07/09/2020 to document services personally performed by Avelino Weinstein MD based on my observations and the provider's statements to me. [facility] Avelino Weinstein MD 07/10/20 0001 RY DRILLER documented in this encounter Plan of Treatment Not on filedocumented as of this encounter Procedures Procedure Name Priority Date/Time Associated Comments Diagnosis CBC WITH PLATELETS & STAT 07/09/2020 7:21 PM R esults for this DIFFERENTIAL ROTARY DRILLER procedure are i n the results section. TROPONIN I STAT 07/09/2020 7:21 PM Results f or this ROTARY DRILLER procedure are i n the results section. BASIC METABOLIC PANEL STAT 07/09/2020 7:21 PM Results for this ROTARY DRILLER procedure are i n the results section. EKG 12-LEAD, TRACING STAT 07/09/2020 7:19 PM R esults for this ONLY ROTARY DRILLER procedure are i n the results section. documented in this encounter Results (ABNORMAL) CBC with platelets differential (07/09/2020 7:21 PM [facility]) [facility] gist Method Time Signature WBC 14.3 (H) 4.0 - 07/09/2020 [facility] 11.0 7:38 PM [facility] 10e9/L [facility] RBC Count 3.86 3.8 - 5.2 07/09/2020 [facility] 10e12/L 7:38 PM [facility] Hemoglobin 12.5 11.7 - 07/09/2020 [facility] 15.7 g/dL 7:38 PM [facility] Hematocrit 37.7 35.0 - 07/09/2020 [facility] 47.0 % 7:38 PM [facility] MCV 98 78 - 100 07/09/2020 [facility] fl 7:38 PM [facility] MCH 32.4 26.5 - 07/09/2020 [facility] 33.0 pg 7:38 PM [facility] MCHC 33.2 31.5 - 07/09/2020 [facility] 36.5 g/dL 7:38 PM [facility] RDW 15.1 (H) 10.0 - 07/09/2020 [facility] 15.0 % 7:38 PM [facility] Platelet Count 328 150 - 450 07/09/2020 [facility] 10e9/L 7:38 PM [facility] Diff Method Automated 07/09/2020 [facility] Method 7:38 PM [facility] % Neutrophils 71.2 % 07/09/2020 [facility] 7:38 PM [facility] % Lymphocytes 22.8 % 07/09/2020 [facility] 7:38 PM [facility] % Monocytes 3.8 % 07/09/2020 [facility] 7:38 PM [facility] % Eosinophils 1.4 % 07/09/2020 [facility] 7:38 PM [facility] % Basophils 0.2 % 07/09/2020 [facility] 7:38 PM [facility] % Immature 0.6 % 07/09/2020 [facility] Granulocytes 7:38 PM [facility] Nucleated RBCs 0 0 /100 07/09/2020 [facility] 7:38 PM [facility] Absolute 10.2 (H) 1.6 - 8.3 07/09/2020 [facility] Neutrophil 10e9/L 7:38 PM [facility] Absolute 3.3 0.8 - 5.3 07/09/2020 [facility] Lymphocytes 10e9/L 7:38 PM [facility] Absolute 0.5 0.0 - 1.3 07/09/2020 [facility] Monocytes 10e9/L 7:38 PM [facility] Absolute 0.2 0.0 - 0.7 07/09/2020 [facility] Eosinophils 10e9/L 7:38 PM [facility] Absolute 0.0 0.0 - 0.2 07/09/2020 [place] Basophils 10e9/L 7:38 PM [facility] Abs Immature 0.1 0 - 0.4 07/09/2020 [facility] Granulocytes 10e9/L 7:38 PM [facility] Absolute 0.0 07/09/2020 [place] Nucleated RBC 7:38 PM [facility] Specimen Anatomical Collection Method Collection Time Receive d Time (Source) Location / / Volume Laterality Blood specimen 07/09/2020 7:21 PM 020 7:34 (specimen) ROTARY DRILLER PM ROTARY DRILLER Chilango Lentz MD LAB - BLOOD ORDERABLES Performing Organization Address City/State/ZIP Code Phon e Number [place] [address] [address] [phone] [place] [address] [place] [phone] Troponin I (07/09/2020 7:21 PM ROTARY DRILLER) athologist Signature Troponin I ES <0.015 0.000 - 07/09/2020 [place] 0.045 ug/L 8:14 PM [facility] Comment: The 99th percentile for upper reference range is 0.045 ug/L. ??Troponin values in the range of 0.045 - 0.120 ug/L may b e associated with risks of adverse clinical events. Specimen Anatomical Collection Method Collection Time Receive d Time (Source) Location / / Volume Laterality Blood specimen 07/09/2020 7:21 PM 020 7:34 (specimen) ROTARY DRILLER PM ROTARY DRILLER Chilango Lentz MD LAB - BLOOD ORDERABLES Performing Organization Address City/State/ZIP Code Phon e Number [facility] [address] [place], [place] [address] [facility] [address] [place], [place] [address] [facility] [phone] (ABNORMAL) Basic metabolic panel (07/09/2020 7:21 PM [facility]) P athologist Signature Sodium 138 133 - 144 07/09/2020 [place] mmol/L 8:02 PM [facility] Potassium 3.3 (L) 3.4 - 5.3 07/09/2020 [place] mmol/L 8:02 PM [facility] Chloride 106 94 - 109 07/09/2020 [place] mmol/L 8:02 PM [facility] Carbon Dioxide 25 20 - 32 07/09/2020 [place] mmol/L 8:09 PM [facility] Anion Gap 7 3 - 14 07/09/2020 [place] mmol/L 8:09 PM [facility] Glucose 117 (H) 70 - 99 07/09/2020 [place] mg/dL 8:09 PM [facility] Urea Nitrogen 4 (L) 7 - 30 07/09/2020 [place] mg/dL 8:09 PM [facility] Creatinine 0.62 0.52 - 07/09/2020 [place] 1.04 mg/dL 8:09 PM [facility] GFR Estimate >90 >60 07/09/2020 [place] mL/min/{1. 8:09 PM [facility] 73_m2} [facility]OS[facility] Comment: Non GFR Calc Starting 07/27/2018, serum creatinine ba sed estimated GFR (eGFR) will be calculated using the Chronic Kidney Dise [facility] Epidemiology Collaboration (CKD-EPI) equation. GFR Estimate If >90 >60 mL/min/{1.73_m2} 07/09/2020 8: 09 PM [facility] Comment: GFR Calc Starting 07/27/2018, serum creatinine ba sed estimated GFR (eGFR) will be calculated using the Chronic Kidney Dise [facility] Epidemiology Collaboration (CKD-EPI) equation. Calcium 9.3 8.5 - 10.1 mg/dL 07/09/2020 8:09 PM [facility] Specimen Anatomical Collection Method Collection Time Receive d Time (Source) Location / / Volume Laterality Blood specimen 07/09/2020 7:21 PM 020 7:34 (specimen) ROTARY DRILLER PM ROTARY DRILLER Chilango Lentz MD LAB - BLOOD ORDERABLES Performing Organization Address City/State/ZIP Code Phon e Number [facility] [address] [place] [address] [facility] [address] [place], [place] [address], [facility] [phone] [facility] [address] [place] [address], [facility] EKG 12-lead, tracing only (07/09/2020 7:19 PM ROTARY DRILLER) [facility] Method Time Signature Interpretation ECG Click View RADIOLOGY Image link RESULTS to view waveform and result Specimen (Source) Anatomical Collection Method Collection Time Re ceived Time Location / / Volume Laterality 07/09/2020 7:19 PM ROTARY DRILLER Chilango Lentz MD ECG ORDERABLES Performing Organization Address City/State/ZIP Code Phon e Number RADIOLOGY RESULTS documented in this encounter Visit Diagnoses Diagnosis Panic attack Panic disorder without agoraphobia 28 weeks gestation of state, incidental documented in this encounter Additional Health Concerns Assessment Noted Time PHQ-9 Depression Total Score: 10 02/02/2020 8:23 AM CD T documented as of this encounter Care Teams Dungeon Master Relationship Specialty Start Date End Date Blank Lemos MD PCP - General Internal Medicine 04/22/[address] [place] [address] [address] [place] [phone] Blank Lemos MD Assigned PCP 04/25/[address] [place] [address] [address] [place] [phone] Kathleen Lacy CNM Assigned OBGYN Provider 06/01/20 11/23/21 [address] [address] documented as of this encounter
--- OUTSIDE RECORDS SUMMARY | 2022-04-09 07:18 | XMS_ITS | Encounter Summary ---
:1990 Author Organization [place] Address [facility] [place] [address] Care Team Providers Name Role Phone Blank Lemos MD Primary Care Provider Blank Lemos MD Unavailable Kathleen Lacy CNM Unavailable Reason for Referral (Routine) - Closed Specialty Diagnoses / Procedures Referred By Contact Refer red To Contact Diagnoses Encounter for supervision of normal first , third trimester Kathy Ingram Procedures TDAP VACCINE (Adacel, Boostrix) [[id number]] GINNY Santos CNM [facility] [address] [address] Referral ID Status Reason Start Date Expiration Date Visits Requ ested Visits Authorized [id number] Closed 07/09/2020 07/09/2021 1 1 GER MONITORING Reason for Visit Reason Comments Care 28w 4d GCT and tdap today, q uestions on COVID restrictions, back pain worsening x1-2wks, and hearb urn-vomits with Tums Encounter Details Date Type Department Care Team Description 07/09/2020 Office [facility] Kathy Davis for supervision of normal first , third trimester (Primary Dx); [facility] Dianna Benitez in third trimester [place] TRADE FACILITATOR CNM [address] [facility] 100 [address] [address] [phone] [address] [place], [place] [phone] [address] Social History Tobacco Use Types Packs/Day Years [...] with No / Unsure 07/09/2020 8:25 AM MANAGER MONITORING someone who was confirmed or suspected to have Coronavirus / COVID-19? documented as of this encounter Last Filed Vital Signs Vital Sign Reading Time Taken Comments Blood Pressure 124/82 07/09/2020 8:31 AM MANAGER MONITORING Pulse - - Temperature - - Respiratory Rate - - Oxygen Saturation - - Inhaled Oxygen Concentration - - Weight 108.4 kg (239 lb) 07/09/2020 8:31 AM MANAGER MONITORING Height - - Body Mass Index 42.34 04/09/2020 1:36 PM CDT documented in this encounter Patient Instructions Patient InstructionsKathy Ingram APRN CNM - 07/09/2020 8:30 AM CST Weeks 27 thru 32 - Gestational Age [...] since the end of the first trimester. GER MONITORING documented in this encounter Progress Notes Kathy Ingram APRN CNM - 07/09/2020 8:30 AM CST S: Endorses heartburn, left lower back pain. Not tolerating TUMS, as it provokes N/V. Heartburn symptoms worst at bedtime. Sleeping with head elevated has providing some relief. Feels like baby is sitting low. Wondering if back pain could be related to kidneys but is not experiencing s/s of UTI. Baby very active. Also has questions about Covid restrictions in the hospital. O: Vitals: BP 124/82 (BP Location: Right arm, Cuff Size: Adult Regular) Wt 108.4 kg (239 lb) LMP12/22/2019 BMI 42.34 kg/m?? BMI= Body mass index is 42.34 kg/m??. Exam: Constitutional: Healthy, alert and no distress Respiratory: Respirations even and unlabored Gastrointestinal: Abdomen soft, non-tender. Fundus measures appropriate for gestational age. heart tones heard without difficulty and within normal limits Back: No CVA tenderness : Deferred Psychiatric: Mentation appears normal and affect normal/bright A: ICD-10-CM 1. Encounter for supervision of normal first , third trimester Z34.03 Glucose tolerance, gest screen, 1 hour CBC with platelets Treponema Abs w Reflex to RPR and Titer TDAP VACCINE (Adacel, Boostrix) [[id number]] sucralfate (CARAFATE) 1 GM tablet 2. Heartburn during in third trimester O26.893 sucralfate (CARAFATE) 1 GM tablet R12 P: Encouraged to avoid meals/snacks within three hours before bed to prevent heartburn. Sucralfate Rx sent to preferred pharmacy. Will consider H2 antagonists if ineffective. Lower back pain likely expected discomforts related to . Discussed side lying release stretches, warm packs, massage. May consider chiropractic adjustments as well. GCT/repeat CBC/RPR today, handout provided. Tdap given. Patient declined flu vaccine today. Need for Rhogam? No. Encouraged patient to call with any questions or concerns. Return to clinic in 2 weeks. Kathy Ingram DNP, TRADE FACILITATOR, CNM GER MONITORING documented in this encounter Nursing Notes Luz Maria Abreu - 07/09/2020 8:30 AM CST Chief Complaint Patient presents with ??? Care 28w 4d GCT and tdap today, questions on COVID restrictions, back pain worsening x1-2wks, and hearburn-vomits with Tums Initial BP 124/82 (BP Location: Right arm, Cuff Size: Adult Regular) Wt 108.4 kg (239 lb) LMP 12/22/2019 BMI 42.34 kg/m?? Estimated body mass index is 42.34 kg/m?? as calculated from the following: Height as of 04/09/20: 1.6 m (5' 3). Weight as of this encounter: 108.4 kg (239 lb). BP completed using cuff size: regular long Questioned patient about current smoking habits. Pt. quit smoking some time ago. The following HM Due: NONE Luz Maria Abreu CMA GER MONITORING documented in this encounter Plan of Treatment Not on filedocumented as of this encounter Procedures Procedure Name Priority Date/Time Associated Diagnosis Comme nts TREPONEMA ABS W Routine 07/09/2020 9:29 AM Encounter for Resul ts for this REFLEX TO RPR AND MANAGER MONITORING supervision of ole abarca are in TITER normal first the results , third section. trimester GLUCOSE TOLERANCE Routine 07/09/2020 9:29 AM Encounter for Res ults for this GEST SCREEN 1 HOUR MANAGER MONITORING supervision of procedu re are in normal first the results , third section. trimester CBC WITH PLATELETS Routine 07/09/2020 9:29 AM Encounter for Re sults for this MANAGER MONITORING supervision of procedure are in normal first the results , third section. trimester documented in this encounter Results Treponema Abs w Reflex to RPR and Titer (07/09/2020 9:29 AM MANAGER MONITORING) [facility] Method Time Signature Treponema Nonreactive NR^Nonrea 07/10/2020 [facility] ctive 10:07 AM MANAGER MONITORING [facility] Comment: Methodology Change: Test performed on DiaSeatID Liaison XL by Treponema pallidum Total Antibodies Assay as of . Specimen Anatomical Collection Method Collection Time Receive d Time (Source) Location / / Volume Laterality Blood specimen 07/09/2020 9:29 AM 020 9:30 (specimen) MANAGER MONITORING AM MANAGER MONITORING Kathy Ingram APRN CNM LAB - BLOOD ORDE ANITA Performing Organization Address City/State/ZIP Code Phon e Number [facility] [address] (ABNORMAL) CBC with platelets (07/09/2020 9:29 AM MANAGER MONITORING) [facility] Method Time Signature WBC 12.4 (H) 4.0 - 11.0 07/09/2020 [facility] 10e9/L 10:08 AM [facility] RBC Count 3.69 (L) 3.8 - 5.2 07/09/2020 [facility] 10e12/L 10:08 AM MANAGER MONITORING [facility] Hemoglobin 11.8 11.7 - 07/09/2020 [facility] 15.7 g/dL 10:08 AM [facility] Hematocrit 36.6 35.0 - 07/09/2020 [facility] 47.0 % 10:08 AM [facility] MCV 99 78 - 100 07/09/2020 [facility] fl 10:08 AM [facility] MCH 32.0 26.5 - 07/09/2020 [facility] 33.0 pg 10:08 AM [facility] MCHC 32.2 31.5 - 07/09/2020 [facility] 36.5 g/dL 10:08 AM [facility] RDW 15.3 (H) 10.0 - 07/09/2020 [facility] 15.0 % 10:08 AM [facility] Platelet Count 321 150 - 450 07/09/2020 [facility] 10e9/L 10:08 AM [facility] Specimen Anatomical Collection Method Collection Time Receive d Time (Source) Location / / Volume Laterality Blood specimen 07/09/2020 9:29 AM 020 9:30 (specimen) MANAGER MONITORING AM MANAGER MONITORING Kathy FARMER LAB - BLOOD [place] Performing Organization Address City/[facility]/ZIP Code Phon e Number [facility] [address] [place], [place] [phone] [address] Glucose tolerance, gest screen, 1 hour (07/09/2020 9:29 AM MANAGER MONITORING) athologist Signature Glu Gest Screen 105 60 - 129 07/10/2020 [facility] 1hr 50g mg/dL 7:25 AM [facility] Specimen Anatomical Collection Method Collection Time Receive d Time (Source) Location / / Volume Laterality Blood specimen 07/09/2020 9:29 AM 020 9:30 (specimen) MANAGER MONITORING AM MANAGER MONITORING Kathy Ingram APRN, CNM LAB - BLOOD [place] Performing Organization Address City/State/ZIP Code Phon e Number M [facility] [address] [address] [facility] [address] [address], [facility] [phone] documented in this encounter Visit Diagnoses Diagnosis Encounter for supervision of normal firs t , third trimester - Primary Heartburn during in third trim dewayne documented in this encounter Additional Health Concerns Assessment Noted Time PHQ-9 Depression Total Score: 10 02/02/2020 8:23 AM CD T documented as of this encounter Care Teams Drawing Supervisor Relationship Specialty Start Date End Date Blank Lemos MD PCP - General Internal Medicine 04/22/[address] [place] [address] [place] [phone] Blank Lemos MD Assigned PCP 04/25/18 [address] [facility] [address] [place] [phone] Kathleen Lacy CNM Assigned OBGYN Provider 06/01/20 11/23/21 [address] [place], [place] [phone] documented as of this encounter
--- OUTSIDE RECORDS SUMMARY | 2022-04-09 07:18 | XMS_ITS | Encounter Summary ---
:1990 Author Organization [place] Address Formerly [facility], later [facility] [place] [address] Care Team Providers Name Role Phone Blank Lemos MD Primary Care Provider Blank Lemos MD Unavailable Kathleen Lacy CNM Unavailable Reason for Referral Diagnostic Imaging Ultrasound (Routine) - Closed Specialty Diagnoses / Procedures Referred By Contact Refer red To Contact Diagnoses Encounter for supervision of normal first in third trimester Soledad Jones CNM Procedures US OB >14 Weeks Follow Up [address] [place] [address] Referral ID Status Reason Start Date Expiration Date Visits Requ ested Visits Authorized [id number] Closed 08/20/2020 08/20/2021 1 1 COLLECTOR Reason for Visit Reason Comments Care 34w 4d, c/o leg cramps and r estless legs, also period like cramps Encounter Details Date Type Department Care Team Description 08/20/2020 Office [facility] for supervision of normal first in third trimester (Primary Dx); [facility] YARELI Rowe Pelvic pain affecting in third trimester, antepartum; [place] [address] Excessive weight gain during in third trimester [address] [place], [place] [address] [address] [place], [place] [phone] [address] (Work) [phone] Social History Tobacco Use Types Packs/Day Years [...] with No / Unsure 08/20/2020 1:54 PM RAG COLLECTOR someone who was confirmed or suspected to have Coronavirus / COVID-19? documented as of this encounter Last Filed Vital Signs Vital Sign Reading Time Taken Comments Blood Pressure 122/70 08/20/2020 1:58 PM RAG COLLECTOR Pulse - - Temperature - - Respiratory Rate - - Oxygen Saturation - - Inhaled Oxygen Concentration - - Weight 112.5 kg (248 lb) 08/20/2020 1:58 PM RAG COLLECTOR Height - - Body Mass Index 43.93 04/09/2020 1:36 PM CDT documented in this encounter Progress Notes Soledad Jones CNM - 08/20/2020 2:00 PM CST S: Feels well, Baby active. Denies contractions, vaginal bleeding or leaking of fluid -Reports that she has been experiencing increased pelvic cramping which she notes when going for walks or standing for long periods of time. Cramping will subside with rest/hydration. -Asking why 'At risk for VTE' was added to her problem list and not discussed at last visit. We discussed the risk of VTE being increased in women with a prepregnancy BMI >30 in addition to increased risk for VTE for all women. -Reports she has increased symptoms of restless legs, intermittent leg cramping. Does not feel that her legs are particularly swollen, no persistent calf or leg pain. Discussed comfort measures including gentle exercise, walking, ensuring adequate hydration. Reassurance provided that this is a common occurrence and usually resolves following delivery. Could repeat CBC to ensure she is not anemic which can exacerbate these symptoms, she declines at present but will consider if symptoms persist or worsen. -We reviewed weight gain thus far in . She is confused by her 5lb weight gain since last visit, does not feel she has changed anything in her diet and exercise routine. Denies any swelling other than what is normal for . We discussed the maternal/ risks associated with weight gain above IOM recommendations in . Will continue to follow. O: Vitals: BP 122/70 (BP Location: Right arm, Cuff Size: Adult Large) Wt 112.5 kg (248 lb) LMP 12/22/2019 BMI 43.93 kg/m?? BMI= Body mass index is 43.93 kg/m??. Exam: Constitutional: healthy, alert and no distress Respiratory: respirations even and unlabored Gastrointestinal: Abdomen soft, non-tender. Measuring S>D. heart tones hear without difficulty and within normal limits : Deferred Psychiatric: mentation appears normal and affect normal/bright A: ICD-10-CM 1. Encounter for supervision of normal first in third trimester Z34.03 US OB >14 Weeks Follow Up 2. Pelvic pain affecting in third trimester, antepartum O26.893 UA with Microscopic reflexto Culture R10.2 Urine Culture Aerobic Bacterial 3. Excessive weight gain during in third trimester O26.03 P: Discussed GBS screen for next visit. Discussed plans for labor, she is open to any pain management, planning to just see how things go. Discussed patient options for contraception. Patient is planning POPs Measuring S>D today, discussed that given this and excess weight gain in I recommend checking a growth ultrasound which she is open to. Encouraged patient to call with any questions or concerns. Return to clinic 2 weeks H. Octavia Jones CNM 08/20/2020 4:56 PM COLLECTOR documented in this encounter Nursing Notes Luz Maria Abreu - 08/20/2020 2:00 PM CST Chief Complaint Patient presents with ??? Care 34w 4d, c/o leg cramps and restless legs, also period like cramps Initial BP 122/70 (BP Location: Right arm, Cuff Size: Adult Large) Wt 112.5 kg (248 lb) LMP 12/22/2019 BMI 43.93 kg/m?? Estimated body mass index is 43.93 kg/m?? as calculated from the following: Height as of 04/09/20: 1.6 m (5' 3). Weight as of this encounter: 112.5 kg (248 lb). BP completed using cuff size: large Questioned patient about current smoking habits. Pt. quit smoking some time ago. The following HM Due: NONE Luz Maria Abreu CMA COLLECTOR documented in this encounter Plan of Treatment Not on filedocumented as of this encounter Procedures Procedure Name Priority Date/Time Associated Comments Diagnosis UA WITH MICROSCOPIC Routine 08/20/2020 2:30 PM Pelvic pain Re sults for this AND REFLEX TO CULTURE RAG COLLECTOR affecting procedure are in in third trimester, the resu lts antepartum section. URINE CULTURE Routine 08/20/2020 2:30 PM Pelvic pain Results for this RAG COLLECTOR affecting procedur e are in in third trimester, the resu lts antepartum section. documented in this encounter Results US OB >14 Weeks Follow Up (09/03/2020 1:47 PM RAG COLLECTOR) Anatomical Region Laterality Modality Abdomen/Pelvis Ultrasound Specimen (Source) Anatomical Location Collection Method / Collectio n Time Received Time / Laterality Volume Impressions 09/03/2020 4:32 PM RAG COLLECTOR ? Mendoza Gestation. ?? presentation: Cephalic Placenta: [...] No gross anomalies observed. Kori Booker MD [facility] Obstetrics and Gynecology [facility] Narrative 09/03/2020 4:32 PM RAG COLLECTOR [facility] Obstetrics and Gynecology ?? ULTRASOUND - OB FOLLOW UP > 14 Weeks- Tr ansabdominal ?? Referring Provider: MARLENY Garcia ?? INDICATIONS FOR ULTRASOUND: OB History: Present Conditions: third tr-screen (EFW ) ?? CLINICAL INFORMATION ?? LMP: ??December 27 ??- sure EDC: ??Sep 30 ?EGA: ??36w 4d ?? Previous US: Yes ?? EDC: Sep 30 correspond ?? Soledad Jones CNM IMG US ORDERABLES Urine Culture Aerobic Bacterial (08/20/2020 2:30 PM RAG COLLECTOR) Component Value Ref Test Analysis Performed At [facility] Range Method Time Signature Specimen Midstream Urine INFECTIOUS Description [facility] Special Specimen received 08/20/2020 INFECTIOUS Requests in preservative 6:49 PM RAG COLLECTOR [facility] Culture Micro <10,000 colonies/mL 08/21/2020 INFEC TIOUS urogenital andre 4:51 PM RAG COLLECTOR DISEASES Susceptibility testing not routinely done [facility] Specimen (Source) Anatomical Collection Method Collection Time Re ceived Time Location / / Volume Laterality Examination of 08/20/2020 2:30 08/20/2020 2:44 midstream urine PM RAG COLLECTOR PM RAG COLLECTOR specimen (procedure) Soledad Jones CNM LAB - MICRO GENERAL ORDERABL ES Performing Organization Address City/State/ZIP Code Phon e Number INFECTIOUS [facility]EASES DIAGNOSTIC [address] [facility] [address] [address] LABORATORY, [facility] (ABNORMAL) UA with Microscopic reflex to Culture (08/20/2020 2:30 PM RAG COLLECTOR) Patholo gist Method Time Signature Color Urine Yellow 08/20/2020 [place] 2:56 PM RAG COLLECTOR [facility] Appearance Urine Clear 08/20/2020 [place] 2:56 PM RAG COLLECTOR [facility] Glucose Urine Negative NEG^Negat 08/20/2020 [facility] [place]elin mg/dL 2:56 PM RAG COLLECTOR [facility] Bilirubin Urine Negative NEG^Negat 08/20/2020 [facility] [place] 2:56 PM RAG COLLECTOR [facility] Ketones Urine Negative NEG^Negat 08/20/2020 [facility] [place] mg/dL 2:56 PM [facility] Specific [place] 1.015 1.003 - 08/20/2020 [facility] Urine 1.035 2:56 PM [facility] pH Urine 7.0 5.0 - 7.0 08/20/2020 [facility] pH 2:56 PM [facility] Protein Albumin Negative NEG^Negat 08/20/2020 [facility] Urine yakelin mg/dL 2:56 PM [facility] Urobilinogen 0.2 0.2 - 1.0 08/20/2020 [facility] Urine EU/dL 2:56 PM RAG COLLECTOR [facility] Nitrite Urine Negative NEG^Negat 08/20/2020 [facility] [place] 2:56 PM [facility] Blood Urine Negative NEG^Negat 08/20/2020 [facility] [place] 2:56 PM [facility] Leukocyte Trace (A) NEG^Negat 08/20/2020 [facility] Esterase Urine yakelin 2:56 PM [facility] Source Midstream 08/20/2020 [facility] Urine 2:43 PM [facility] WBC Urine 5-10 (A) OTO5^0 - 08/20/2020 [facility] 5 /HPF 2:56 PM [facility] RBC Urine O - 2 OTO2^O - 08/20/2020 [facility] 2 /HPF 2:56 PM [facility] Squamous Few FEW^Few 08/20/2020 [facility] Epithelial /LPF /LPF 2:56 PM [facility] Urine [place] Bacteria Urine Moderate (A) NEG^Negat 08/20/2020 [facility] yakelin /HPF 2:56 PM [facility] Amorphous Moderate (A) NEG^Negat 08/20/2020 [facility] Crystals yakelin /HPF 2:56 PM [facility] Specimen (Source) Anatomical Collection Method Collection Time Re ceived Time Location / / Volume Laterality Examination of 08/20/2020 2:30 08/20/2020 2:43 midstream urine PM RAG COLLECTOR PM RAG COLLECTOR specimen (procedure) Soledad Jones CNM LAB - URINE ORDERABLES Performing Organization Address City/State/ZIP Code Phon e Number [facility] [address], [place] [address] [address] documented in this encounter Visit Diagnoses Diagnosis Encounter for supervision of normal firs t in third trimester - Primary Supervision of normal first Pelvic pain affecting in third trimester, antepartum Excessive weight gain during i n third trimester Encounter for supervision of normal firs t in third trimester Supervision of normal first documented in this encounter Additional Health Concerns Assessment Noted Time PHQ-9 Depression Total Score: 10 02/02/2020 8:23 AM CD T documented as of this encounter Care Teams Make Ready Mechanic Relationship Specialty Start Date End Date Blank Lemos MD PCP - General Internal Medicine 04/22/[address] [place] [address] [place] [phone] Blank Lemos MD Assigned PCP 04/25/[address] [place] [address] [place] [phone] Kathleen Lacy CNM Assigned OBGYN Provider 06/01/20 11/23/21 [place] [address] documented as of this encounter
--- OUTSIDE RECORDS SUMMARY | 2022-04-09 07:18 | XMS_ITS | Encounter Summary ---
:1990 Author Organization [place] Address Replaced by [facility] [place] [address] Care Team Providers Name Role Phone Blank Lemos MD Primary Care Provider Blank Lemos MD Unavailable Kathleen Lacy CNM Unavailable Reason for Visit Reason Onset Date Comments Abdominal Pain 08/09/2020 Encounter Details Date Type Department Care Team Description 08/09/2020 Telephone [facility] Faiza Lloyd, [facility] [address] [place] [address] [phone] Social History Tobacco Use Types Packs/Day Years [...] with No / Unsure 08/06/2020 1:53 PM PHOTOGRAPHER MODEL someone who was confirmed or suspected to have Coronavirus / COVID-19? documented as of this encounter Miscellaneous Notes Telephone Encounter - Faiza Reyes CNM - 08/09/2020 8:20 PM CST Patient paged CNRadha acting section chief with reports of period like cramps earlier today. Now cramping has resolved, but patient :just feels off. Baby active. No vaginal bleeding or leaking or fluid. No other symptoms, fever, nausea or vomiting. Advised patient to try some tylenol, push fluids and rest. Call ifshe begins to feel worse. Encouraged patient to call with any questions or concerns. Faiza Reyes APRN, CNM OGRAPHER MODEL documented in this encounter Plan of Treatment Not on filedocumented as of this encounter Visit Diagnoses Not on filedocumented in this encounter Additional Health Concerns Assessment Noted Time PHQ-9 Depression Total Score: 10 02/02/2020 8:23 AM CD T documented as of this encounter Care Teams Bonding And Composite Fabricator Relationship Specialty Start Date End Date Blank Lemos MD PCP - General Internal Medicine 04/22/18 [address] [facility] KISHAN RENO [phone] Blank Lemos MD Assigned PCP 04/25/18 [address] [facility] [place] [phone] Kathleen Lacy CNM Assigned OBGYN Provider 06/01/20 11/23/21 [address] [place] [address] documented as of this encounter
--- OUTSIDE RECORDS SUMMARY | 2022-04-09 07:18 | XMS_ITS | Encounter Summary ---
:1990 Author Organization [place] Address [address] [place] [address] Care Team Providers Name Role Phone Blank Lemos MD Primary Care Provider Blank Lemos MD Unavailable Kathleen LacyM Unavailable Encounter Details Date Type Department Care Team Description 06/18/2020 Travel Social History Tobacco Use Types Packs/Day [...] with No / Unsure 06/18/2020 2:11 PM TOOLING INSPECTOR someone who was confirmed or suspected to have Coronavirus / COVID-19? documented as of this encounter Plan of Treatment Not on filedocumented as of this encounter Visit Diagnoses Not on filedocumented in this encounter Additional Health Concerns Assessment Noted Time PHQ-9 Depression Total Score: 10 02/02/2020 8:23 AM CD T documented as of this encounter Care Teams Drift Miner Relationship Specialty Start Date End Date Blank Lemos MD PCP - General Internal Medicine 04/22/[address] [place] [address] KISHAN RENO [phone] Blank Lemos MD Assigned PCP 04/25/[address] [place] [address] K[place] R[place] [phone] Kathleen Lacy CNM Assigned OBGYN Provider 06/01/20 11/23/21 [address] Rivera [place] [id number] documented as of this encounter
--- OUTSIDE RECORDS SUMMARY | 2022-04-09 07:18 | XMS_ITS | Encounter Summary ---
:1990 Author Organization [place] Address [facility] [place] [address] Care Team Providers Name Role Phone Blank Lemos MD Primary Care Provider Blank Lemos MD Unavailable Reason for Referral Diagnostic Imaging Ultrasound (Routine) - Closed Specialty Diagnoses / Procedures Referred By Contact Refer red To Contact Diagnoses related condition, antepartum Soledad Tracey CNM Procedures [facility] Single [address] [place] [address] Referral ID Status Reason Start Date Expiration Date Visits Requ ested Visits Authorized [id number] Closed 05/01/2020 05/01/2021 1 1 Reason for Visit Diagnostic Imaging Ultrasound (Routine) - Closed Specialty Diagnoses / Procedures Referred By Contact Refer red To Contact Diagnoses related condition, antepartum Soledad Tracey CNM Procedures [facility] Single [address] [place] [address] Referral ID Status Reason Start Date Expiration Date Visits Requ ested Visits Authorized [id number] Closed 05/01/2020 05/01/2021 1 1 Encounter Details Date Type Department Care Team Description 05/11/2020 Hospital Encounter [facility] Soledad Tracey CNM [address] [place], [place] [address] related Maternal Ana Danielle MD [address] [place] [address] condition, Medicine Center antepartum Walker [address] [place] [address] Social History Tobacco Use Types [...] / COVID-19? documented as of this encounter Medications at Time of Discharge Medication Sig Dispensed Refills Start Date End Date Vit-Fe Take 1 tablet by 0 Fumarate-FA ( mouth daily MULTIVITAMIN W/IRON) 27-0.8 MG tablet doxylamine (UNISOM) 25 MG Take 25 mg by mouth 0 10/18/2020 TABS tablet At Bedtime escitalopram (LEXAPRO) 20 Take 1 tablet (20 90 tablet 1 07/10/2020 MG tabletIndications: mg) by mouth daily Generalized anxiety disorder, Bipolar I disorder (H) melatonin 1 MG TABS Take 3 mg by mouth 0 11/05/2020 tablet nightly as needed Pyridoxine HCl (B-6 PO) 0 0 09/30/2020 SUMAtriptan (IMITREX) 25 TAKE 1 TO 2 TABLETS 18 tablet 3 06/18/2020 MG tabletIndications: BY MOUTH AT ONSET OF Other migraine without MIGRAINE. MAY REPEAT status migrainosus, not IN 2 HOURS. MAX OF 8 intractable TABLETS PER 24 HOURS. Vitamin D, Take 2,000 Int'l 0 09/30/19 Cholecalciferol, 25 MCG Units by mouth daily (1000 UT) TABS zolpidem (AMBIEN) 5 MG Take 1 tablet (5 mg) 30 tablet 0 12/201906/18/2020 tabletIndications: by mouth nightly as Insomnia, unspecified needed for sleep type documented as of this encounter Plan of Treatment Not on filedocumented as of this encounter Procedures Procedure Name Priority Date/Time Associated Comments Diagnosis [facility] US COMPREHENSIVE Routine 05/11/2020 10:21 relate d Results for this SINGLE AM CDT condition, procedure are i n antepartum the results section. documented in this encounter Results [facility] US Comprehensive Single (05/11/2020 10:21 AM CDT) [...] Study Date : 05/11/2020 9:20am Pat. NO: [id number] Referring ??MD: JULIO TRACEY Site: [facility] Fibreglass Gun Hand: Moraima Keita RD MS : 1990 Age: [...] Biometry: BPD ?47.7 ?mm ? 20w 3d ?Hadoziel OFNichole ?60.5 ?mm ? 19w 4d ?Nicolaides HC ?175.7 ?mm ?20w 1d ?Hadlock Cerebellum tr ?20.7 ? mm ?19w 5d ?Nicolaides AC ?160.2 ?mm ?21w 1d ?Hadlock Femur ?32.2 ? mm ?20w 0d ?Hadlock Humerus ?31.1 ?mm ? 20w 2d ?Wendy Weight Calculation: EFW ? 362 ? g EFW (lb,oz) ? 0 lb 13 ? oz EFW by ?Hadlock ([id number]) Head / Face / Neck Biometry: Bench Hand Machine ? 7.5 ? mm CM ?3.7 ? [...] cava. Inferior vena cava. 3-vessel ? view. 8-expwgb-hmkzzja view. Cardiac position. Cardiac size. Cardiac rhythm. [...] Pat. Name:Noemi RESENDIZ Date: 9:20am Pat. NO: [id number] :SOLEDAD WERNER [facility]Moraima Keita RDMS :1990Age:30 INDICATION Suboptimal heart anatomy [...] 0 lb 13 oz EFW by Hadlock ([id number]-FL) Head / Face / Neck Biometry: Bench Hand Machine 7.5 mm CM 3.7 mm Nasal bone [...] vena cava. Inferior vena cava. 3-vessel view. 2-xfsfvb-nmegihl view. Cardiac po sition. Cardiac size. Cardiac [...] the cervix appears long and closed. [facility] documented in this encounter Visit Diagnoses Diagnosis related condition, antepartum documented in this encounter Additional Health Concerns Assessment Noted Time PHQ-9 Depression Total Score: 10 02/02/2020 8:23 AM CD T documented as of this encounter Care Teams Cryptographic Technician Relationship Specialty Start Date End Date Blank Lemos MD PCP - General Internal Medicine 04/22/[address] [place] [address] KISHAN RENO [phone] Blank Lemos MD Assigned PCP 04/25/[address] [place] [address] KISHAN RENO [phone] documented as of this encounter
--- OUTSIDE RECORDS SUMMARY | 2022-04-09 07:18 | XMS_ITS | Encounter Summary ---
:1990 Author Organization [place] Address [address] [facility] [place] [address] Care Team Providers Name Role Phone Blank Lemos MD Primary Care Provider Blank Lemos MD Unavailable Reason for Visit Diagnostic Imaging Ultrasound (Routine) - Closed Specialty Diagnoses / Procedures Referred By Contact Refer red To Contact Diagnoses care in first trimester Mayra Cooper CNM Procedures US OB > [address] [place], [place] [address] Referral ID Status Reason Start Date Expiration Date Visits Requ ested Visits Authorized [id number] Closed 03/27/2020 03/27/2021 1 1 Encounter Details Date Type Department Care Team Description 05/01/2020 [facility] Kely Kendall CNM first trimester [address] [facility] [address] [place] [address] [place] [phone] Social History Tobacco Use Types Packs/Day Years [...] Date/Time Associated Diagnosis Comme nts US OB > 14 WEEKS Routine 05/01/2020 9:40 AM care in R esults for this CDT first trimester procedure ar e in the results section. documented in this encounter Results (ABNORMAL) US OB > 14 Weeks (05/01/2020 9:40 AM CDT) Anatomical Region Laterality Modality Abdomen/Pelvis Ultrasound Specimen (Source) Anatomical Location Collection Method / Collectio n Time Received Time / Laterality Volume Narrative 05/01/2020 11:40 AM CDT [facility] Obstetrics and Gynecology ?? ULTRASOUND - OB > 14 Weeks Complete - Tr ansabdominal ?? Referring Provider: Mayra Cooper CNM ?? INDICATIONS FOR ULTRASOUND: OB History: Present Conditions: Initial Survey (18-26 weeks) ?? CLINICAL INFORMATION ?? LMP: 22 Dec 2019 ??sure EDC: 27 Sep 2020 ??EGA: 18w 2d Previous US: Yes ? Mendoza Gestation. ?? presentation: Transverse Placenta location: Posterior and Fundal, no previa, > 2 cm from internal os Grade: 0 ?? Cord: 3 Vessel Cord ?? BPD 4.03 cm 18w2d HC 14.84 cm 18w0d AC 12.64 cm 18w2d FL 2.80 cm 18w4d HL 2.61 cm 18w1d Cerebellum 1.91 cm 18w4d CM 3.82 mm ?? Lat Vent 4.49 mm ?? Amniotic Fluid 5.63 cm MVP ?? Heart Rate 137 bpm ?? EFW (lbs/oz) 0 lbs ? 8ozs ? ? EFW (g) 236 g ?? EDC: 09/30/2020 EGA:18w2d ??correspond ?? SURVEY Visualized with normal appearance: Head, Ventricles, Cerebellum, CSP, Face, Nose/Lips , Profile, LVOT, Spine, Kidneys, Stomach, Diaphragm, Abdominal Cord Insertion, Bladder, Arms, Legs and Gender: Female Not well seen: RVOT, 4 chamber heart ?? MATERNAL ANATOMY Cervix: The cervix appears long and clos ed. Cervical Length: 5.39cm ?? Right Ovary: Not visualized Left Ovary: Not visualized ?? Complete obstetrical ultrasound using [facility] transabdominal scanning. Due to position, four chamber hear t and right ventricular outflow tracts are not well seen. No other gross anomalies observed; ??corresponding menstrual and sonographic dates. Maternal uterus appears Normal Maternal ovaries were not visualized. Placenta is posterior and fundal. Amniotic fluid assessment is: Normal. Recommend referral to [facility] for targeted u ltrasound to evaluate anatomy not well seen on this exam. anomalies may be present but not d etected. Dina Germain MD Obstetrics and Gynecology [facility] ? Mayra Cooper [facility] IMG US ORDERABLES documented in this encounter Visit Diagnoses Diagnosis care in first trimester documented in this encounter Additional Health Concerns Assessment Noted Time PHQ-9 Depression Total Score: 10 02/02/2020 8:23 AM CD T documented as of this encounter Care Teams Modern Languages Professor Relationship Specialty Start Date End Date Blank Lemos MD PCP - General Internal Medicine 04/22/[address] [place] [address] [place] [phone] Blank Lemos MD Assigned PCP 04/25/[address] [place] [address] [place] [phone] documented as of this encounter
--- OUTSIDE RECORDS SUMMARY | 2022-04-09 07:19 | XMS_ITS | Encounter Summary ---
:1990 Author Organization [facility] Address [address] [place] [address] Care Team Providers Name Role Phone Blank Lemos MD Primary Care Provider Blank Lemos MD Unavailable Hardeep Cárdenas Unavailable Unavailable Encounter Details Date Type Department Care Team Description 12/13/2019 Virtual Visit [facility] Nevin Gilman ed anxiety Mental Health & ANTONIO Doherty disorder (Primary Dx) Addiction Dev Clin [address] [facility] [address] [facility] [address] [address] [place] [address] (Work) [phone] Social History Tobacco Use Types Packs/Day Years [...] or getting things needed for daily living? Sex Assigned at Date Recorded Not on file COVID-19 Exposure Response Date Recorded In the last month, have you been in contact with No / Unsure 12/08/2019 9:58 AM CDT someone who was confirmed or suspected to have Coronavirus / COVID-19? documented as of this encounter Progress Notes Bessy Gilman LICSW - 12/13/2019 2:00 PM CDT [facility] Primary Care: Integrated Behavioral Health December 13, 2019 Rena Turner is a 29 year old female who is being evaluated via a telephone visit. The patient has been notified of the following: We have found that certain health care needs can be provided without the need for a face to face visit. This service lets us provide the care you need with a short phone conversation. I will have full access to your [facility] medical record during this entire phone call. I will be taking notes for your medical record. Since this is like an office visit, we will bill your insurance company for this service. Please check with your medical insurance if this type of telephone visit/virtual care is covered. You may be responsible for the cost of this service if insurance coverage is denied. There are potential benefits and risks of telephone visits (e.g. limits to patient confidentiality) that differ from in-person visits.? Confidentiality still applies for telephone services, and nobody will record the visit. It is important to be in a quiet, private space that is free of distractions (i ncluding cell phone or other devices) during the visit.?? If during the course of the call I believe a telephone visit is not appropriate, you will not be charged for this service Consent has been obtained for this service by care steam shovel operating engineer: yes. Behavioral Health Clinician Progress Note Patient Name: Rena Turner Service Type: Phone Visit Service Location: Phone call (patient / identified alcantara support person reached) Session Start Time: 2:05pm Session End Time: 2:30pm Session Length: 16 - 37 Attendees: Client Visit Activities (Refresh list every visit): [facility] Only Diagnostic Assessment Date: Next Session Treatment Plan Review Date: NA See Flowsheets for today's PHQ-9 and GABRIEL-7 results Previous PHQ-9: PHQ-9 SCORE 02/06/2018 09/22/2018 12/08/2019 PHQ-9 Total Score - - - PHQ-9 Total Score MyChart 7 (Mild depression) - - PHQ-9 Total Score 7 4 15 Previous GABRIEL-7: GABRIEL-7 SCORE 08/17/2017 09/22/2018 12/08/2019 Total Score 13 3 19 NELY LEVEL: No flowsheet data found. DATA Extended Session (60+ minutes): No Interactive Complexity: No Crisis: No [facility] Patient: No Treatment Objective(s) Addressed in This Session: Target Behavior(s): disease management/lifestyle changes related to mental health Depressed Mood: Increase interest, engagement, and pleasure in doing things Decrease frequency and intensity of feeling down, depressed, hopeless Improve quantity and quality of night time sleep / decrease daytime naps Feel less tired and more energy during the day Improve diet, appetite, mindful eating, and / or meal planning Identify negative self-talk and behaviors: challenge core beliefs, myths, and actions Improve concentration, focus, and mindfulness in daily activities Feel less fidgety, restless or slow in daily activities / interpersonal interactions Anxiety: will experience a reduction in anxiety, will develop more effective coping skills to manageanxiety symptoms, will develop healthy cognitive patterns and beliefs and will increase ability to function adaptively PTSD Symptom Management Current Stressors / Issues: [facility] introduced self and role to patient. Patient reported that therapy is very scary to her and thatshe had a terrible experience 10 years ago. Patient reported that she is looking to start fresh in therapy, as she had been diagnosed with things years ago while using drugs and now that she has been so piper for the past 2 years, she would like to see where things are at now. Patient reported that she is struggling quite a bit with anxiety and wonders if she had a manic episode a couple weeks ago. Workhas been very stressful, as she has been off of work due to Covid-19 and now they called her back immediately. She reported that her anxiety is so bad that she is unable to leave the house unless her fiance is with her. She has been struggling with sleep, overeating, mood changes, crying more than normal and other symptoms. Patient reported that she recently started Trazodone to help with sleep and is interested in a psychiatrist to help manage her medication. Patient said that it would be helpful if C helps prompts and points patient in the right direction during therapy. [facility] and patient spent session reviewing symptoms and discussing current coping strategies that have been effective for patient. [facility] encouraged patient to continue utilizing helpful strategies, as anxiety is present. Progress on Treatment Objective(s) / Homework: New Objective established this session - PREPARATION (Decided to change - considering how); Intervened by negotiating a change plan and determining options / strategies for behavior change, identifyingtriggers, exploring social supports, and working towards setting a date to begin behavior change Motivational Interviewing [place] Intervention: Expressed Empathy/Understanding, Supported Autonomy, Collaboration, Evocation, Permission to raise concern or advise, Open-ended questions, Reflections: simple and complex, Change talk(evoked) and Reframe Change Talk Expressed by the Patient: Desire to change Ability to change Reasons to change Need to change Provider Response to Change Talk: E - Evoked more info from patient about behavior change, A - Affirmed patient's thoughts, decisions, or attempts at behavior change, R - Reflected patient's change talk and S - Summarized patient's change talk statements Also provided psychoeducation about behavioral health condition, symptoms, and treatment options Care Plan review completed: Yes Medication Review: No changes to current psychiatric medication(s) Medication Compliance: Yes Changes in Health Issues: None reported Chemical Use Review: Substance Use: Chemical use reviewed, no active concerns identified Tobacco Use: No current tobacco use. Assessment: Current Emotional / Mental Status (status of significant symptoms): Risk status (Self / Other harm or suicidal ideation) Patient denies a history of suicidal ideation, suicide attempts, self-injurious behavior, homicidal ideation, homicidal behavior and and other safety concerns Patient denies current fears or concerns for personal safety. Patient denies current or recent suicidal ideation or behaviors. Patient denies current or recent homicidal ideation or behaviors. Patient denies current or recent self injurious behavior or ideation. Patient denies other safety concerns. A safety and risk management plan has not been developed at this time, however patient was encouraged to call [place] [phone] should there be a change in any of these risk factors. Appearance: Unable to assess due to phone visit Eye Contact: Unable to assess due to phone visit Psychomotor Behavior: Unable to assess due to phone visit Attitude: Cooperative Interested Guarded Orientation: Person Place Time Situation All Speech Rate / Production: Normal Volume: Normal Mood: Anxious Normal Affect: Appropriate Thought Content: Clear Thought Form: Coherent Logical Insight: Good Diagnoses: 1. Generalized anxiety disorder Collateral Reports Completed: Not Applicable Plan: (Homework, other): Patient was given information about behavioral services and encouraged to schedule a follow up appointment with the clinic [facility] as needed. She was also given information about mental health symptoms andtreatment options . CD Recommendations: No indications of CD issues. [facility] ANTONIO Menjivar, [facility] documented in this encounter Plan of Treatment Not on filedocumented as of this encounter Visit Diagnoses Diagnosis Generalized anxiety disorder - Primary documented in this encounter Additional Health Concerns Assessment Noted Time PHQ-9 Depression Total Score: 15 12/08/2019 10:02 AM C DT documented as of this encounter Care Teams Lamination Machine Operator Relationship Specialty Start Date End Date Blank Lemos, PCP - General Internal Medicine [facility] [place] [id number] Blank Lemos, Assigned PCP 04/25/18 [facility] [place] [id number] Hardeep Cárdenas Personal Advocate & 06/17/1901/30 Liaison (PAL) documented as of this encounter
--- OUTSIDE RECORDS SUMMARY | 2022-04-09 07:19 | XMS_ITS | Encounter Summary ---
:1990 Author Organization [place] Address [facility] [place] [address] Care Team Providers Name Role Phone Blank Lemos MD Primary Care Provider Blank Lemos MD Unavailable Reason for Visit Diagnostic Imaging Ultrasound (Routine) - Closed Specialty Diagnoses / Procedures Referred By Contact Refer red To Contact Diagnoses Bleeding in early Faiza Reyes CNM Procedures US OB <14 Weeks w Transvaginal Single US OB < 14 Weeks Single [address] [place], [place] [address] Referral ID Status Reason Start Date Expiration Date Visits Requ ested Visits Authorized [id number] Closed 02/01/2020 01/31/2021 1 1 Encounter Details Date Type Department Care Team Description 02/20/2020 Orders Only [facility] Ble eding in early [place] [address] [facility] [address] [place] [address] Social History Tobacco Use Types Packs/Day Years [...] been in contact with No / Unsure 02/20/2020 9:09 AM CDT someone who was confirmed or suspected to have Coronavirus / COVID-19? documented as of this encounter Plan of Treatment Not on filedocumented as of this encounter Procedures Procedure Name Priority Date/Time Associated Comments Diagnosis US OB <14 WEEKS WITH Routine 02/20/2020 11:39 Bleeding in [place] y Results for this TRANSVAGINAL SINGLE AM CDT procedur e are in the results section. documented in this encounter Results US OB <14 Weeks w Transvaginal Single (02/20/2020 11:39 AM CDT) Anatomical Region Laterality Modality Abdomen/Pelvis Ultrasound Specimen (Source) Anatomical Location Collection Method / Collectio n Time Received Time / Laterality Volume Impressions 02/22/2020 7:31 PM CDT ? MEASUREMENTS Gest Sac: vis ? Position:nl ?Contour:smooth/regular. Yolk sac: 3.1 mm wnl CRL: 1.81 cm. ?EGA: ??8w 2d ?? U/S EDC: 29 Sep 2020 correspond Cardiac Activity:Yes ? FHR: 168 bpm ?? Rt Ov L: 3.6 x 2.4 x 3.2 cm ?? Complex c yst 1.9 x 1.5 x 1.7 cm Lt Ov L: 2.2 x 2.7 x 1.5 cm ?Wnl Cul de sac: no free fluid ?? *Other Findings: ?? Early obstetric transabdominal and trans vaginal ultrasound. Living intrauterine is seen. Corresponding sonographic and menstrual EGA and EDC. Based on this, best estimated Date of Delivery: Sep 27, 2020 Normal amniotic fluid seen. Placenta: not seen, appropriate for this gestational age Gestational sac: seen and within normal limits Complex ovarian cyst seen. Normal early OB ultrasound. Corpus luteal cysts are normal in pregna ncy and generally do not require follow up, but clinical correlation is s uggested. Dr. Lora Ward MD Obstetrics and Gynecology [facility] ? Kely and Dev ?? Narrative 02/22/2020 7:31 PM CDT 02/20/2020 11:40 AM ? [facility] Obstetrics & Gynecology [address] [place] [address] ULTRASOUND - OB < 14 Weeks ?? Referring Provider: Faiza Reyes CNM ?? INDICATIONS FOR ULTRASOUND: OB History: Present Conditions: Initial S&D (0-17 we eks) ?? CLINICAL INFORMATION ?? LMP: 22 Dec 2019 - sure EDC: 27 Sep 2020 ?? EGA: 8 w 4 d ? Faiza Reyes CNM IMG US ORDERABLES documented in this encounter Visit Diagnoses Diagnosis Bleeding in early Unspecified hemorrhage in early pregnanc y, unspecified as to episode of care documented in this encounter Additional Health Concerns Assessment Noted Time PHQ-9 Depression Total Score: 10 02/02/2020 8:23 AM CD T documented as of this encounter Care Teams Scoop Machine Operator Relationship Specialty Start Date End Date Blank Lemos MD PCP - General Internal Medicine 04/22/[address] [place] [address] [place] [address] Blank Lemos MD Assigned PCP 04/25/18 [address] [facility] [address] [place], [place] [address] documented as of this encounter
--- OUTSIDE RECORDS SUMMARY | 2022-04-09 07:19 | XMS_ITS | Encounter Summary ---
:1990 Author Organization [place] Address [facility] [place] [address] Care Team Providers Name Role Phone Blank Lemos MD Primary Care Provider Blank Lemos MD Unavailable Reason for Visit Reason Onset Date Comments Refill Request 04/18/2020 traZODone (DESYREL) 50 MG tablet (Discontinued) Encounter Details Date Type Department Care Team Description 04/18/[address] [facility] Blank Lemos, Re fill Request Clinic Dev [place] (traZODone (DESYREL) 50 [address] [place] [address] [facility] MG ta blet (Discontinued) [facility] ) [address] [place] [address] [place] [address] [phone] Social History Tobacco Use Types Packs/Day Years [...] been in contact with No / Unsure 04/09/2020 1:31 PM CDT someone who was confirmed or suspected to have Coronavirus / COVID-19? documented as of this encounter Miscellaneous Notes Telephone Encounter - Allie Goode RN - 04/19/2020 12:06 PM CDT According to previous notes pt states she stopped taking trazadone Call placed to pharmacy to stop automatic refill Unable to reach pharmacy Denying med request Thank you Allie Goode RN on 04/19/2020 at 12:16 PM Telephone Encounter - Lily Mann RN - 04/19/2020 11:41 AM CDT Routing refill request to provider for review/approval because: Drug not active on patient's medication list Active alert on file documented in this encounter Plan of Treatment Not on filedocumented as of this encounter Visit Diagnoses Diagnosis Insomnia, unspecified type documented in this encounter Additional Health Concerns Assessment Noted Time PHQ-9 Depression Total Score: 10 02/02/2020 8:23 AM CD T documented as of this encounter Care Teams Stereotype Caster Relationship Specialty Start Date End Date Blank Lemos MD PCP - General Internal Medicine 04/22/18 [address] [facility] [address] [place], [place] [address] Blank Lemos MD Assigned PCP 04/25/18 [address] [facility] [address] [place], [place] [address] documented as of this encounter
--- OUTSIDE RECORDS SUMMARY | 2022-04-09 07:19 | XMS_ITS | Encounter Summary ---
:1990 Author Organization [place] Address [facility] [place] [address] Care Team Providers Name Role Phone Blank Lemos MD Primary Care Provider Blank Lmeos MD Unavailable Reason for Visit Reason Comments Medication Refill Encounter Details Date Type Department Care Team Description 03/02/2020 Refill [facility] Blank Oliveros MD Medication Refill [place] [address] [facility] [address] [facility] [place] [address] [address] [place] [address] [phone] Social History Tobacco Use Types Packs/Day Years [...] been in contact with No / Unsure 02/24/2020 8:58 AM CDT someone who was confirmed or suspected to have Coronavirus / COVID-19? documented as of this encounter Miscellaneous Notes Telephone Encounter - Allie Goode RN - 03/02/2020 11:15 AM CDT Received call back from pt. She is not taking trazodone, her pharmacy automatically asked for refill of this. Thank you Allie Goode RN on 03/02/2020 at 11:17 AM Telephone Encounter - Allie Goode RN - 03/02/2020 9:04 AM CDT Call placed to pt with message from provider FLOR for pt to return call to the clinic Allie Goode RN on 03/02/2020 at 9:09 AM Telephone Encounter - Blank Lemos MD - 03/02/2020 8:47 AM CDT Regarding Trazodone request Patient is . This doesn't look like a current medication and I would not recommend adding additional medications at this time unless approved by her OB. Advise patient to discuss with OB. Blank Lemos MD Internal Medicine/Pediatrics [facility] Telephone Encounter - Margarita Lowry RN - 03/02/2020 8:40 AM CDT Routing refill request to provider for review/approval because: Drug not active on patient's medication list Positive test within the last year. Margarita Lowry RN on 03/02/2020 at 8:41 AM documented in this encounter Plan of Treatment Not on filedocumented as of this encounter Visit Diagnoses Diagnosis Insomnia, unspecified type documented in this encounter Additional Health Concerns Assessment Noted Time PHQ-9 Depression Total Score: 10 02/02/2020 8:23 AM CD T documented as of this encounter Care Teams Night Stocker Relationship Specialty Start Date End Date Blank Lemos MD PCP - General Internal Medicine 04/22/[address] [place] [address] [place] [phone] Blank Lemos MD Assigned PCP 04/25/[address] [place] [address] [place] [phone] documented as of this encounter
--- OUTSIDE RECORDS SUMMARY | 2022-04-09 07:19 | XMS_ITS | Encounter Summary ---
:1990 Author Organization [place] Address [facility] [place] [address] Care Team Providers Name Role Phone Blank Lemos MD Primary Care Provider Blank Lemos MD Unavailable Hardeep Cárdenas Unavailable Unavailable Encounter Details Date Type Department Care Team Description 01/03/2020 Virtual Visit [facility] Nevin Gilman ed anxiety disorder (Primary Dx); Mental Health & [facility] Moderate episode of recurrent major depr essive disorder (H) Addiction [facility] [address] [facility] [address] [place] [address] [address] [place] [address] (Work) [phone] Social History Tobacco Use Types Packs/Day Years [...] as of this encounter Progress Notes Bessy Gilman, ANTONIO - 01/03/2020 2:30 PM CDT [facility] Primary Care: Integrated Behavioral Health January 03, 2020 Telemedicine Visit: The patient's condition can be safely assessed and treated via synchronous audioand visual telemedicine encounter. Reason for Telemedicine Visit: Services only offered telehealth Originating Site (Patient Location): Patient's home Distant Site (Provider Location): Provider Remote Setting Consent: The patient/guardian has verbally consented to: the potential risks and benefits of telemedicine (video visit) versus in person care; bill my insurance or make self-payment for services provided; and responsibility for payment of non-covered services. Mode of Communication: Video Conference via doubleTwist As the provider I attest to compliance with applicable laws and regulations related to telemedicine. Behavioral Health Clinician Progress Note Patient Name: Rena Turner Service Type: Individual Session Start Time: 2:05pm Session End Time: 2:30pm Session Length: 16 - 37 Attendees: Client Visit Activities (Refresh list every visit): [facility] Only Diagnostic Assessment Date: 12/20/2019 Treatment Plan Review Date: Next Session See Flowsheets for today's PHQ-9 and GABRIEL-7 [...] minutes): No Interactive Complexity: No Crisis: No [facility] Patient: No Treatment Objective(s) Addressed in This [...] PTSD Symptom Management Current Stressors / Issues: Patient reported that she has been okay, but really struggling to leave the house and she would like to just be able to leave. Patient also reported a lot of fear about work and is continuing to experience panic when thinking about it. [facility] and patient spent session processing through patient's anxieties and what steps patient can take in order to feel more control over her anxiety. [facility] encouraged patient to try utilizing strategies daily when anxiety is less, so her body gets used to the strategies. Patient is going to try a couple strategies such as: deep breathing, grounding, progressive musclerelaxation, journaling/writing. Progress on Treatment Objective(s) / Homework: Minimal progress - PREPARATION (Decided to change - considering how); Intervened by negotiating a change plan and determining options / strategies for behavior change, identifying triggers, exploring social supports, and working towards setting a date to begin behavior change Motivational Interviewing [place] Intervention: Expressed Empathy/Understanding, Supported Autonomy, Collaboration, Evocation, [...] time, however patient was encouraged to call [place] [address] should there be a change in any of these risk factors. Appearance: Appropriate Eye Contact: Good Psychomotor Behavior: Normal Attitude: Cooperative Interested Guarded Orientation: Person Place Time Situation All Speech Rate / Production: Normal Volume: Normal Mood: Anxious Normal Affect: Appropriate Thought Content: Clear Thought Form: Coherent Logical Insight: Good Diagnoses: 1. Generalized anxiety disorder 2. Moderate episode of recurrent major depressive disorder (H) Collateral Reports Completed: Not Applicable Plan: (Homework, other): Patient was given information about behavioral services and encouraged to schedule a follow up appointment with the clinic [facility] as needed. She was also given information about mental health symptoms andtreatment options . CD Recommendations: No indications of CD issues. Treatment plan to be completed at next session. ANTONIO Menjivar, [facility] documented in this encounter Plan of Treatment Not on filedocumented as of this encounter Visit Diagnoses Diagnosis Generalized anxiety disorder - Primary Moderate episode of recurrent major depr essive disorder (H) documented in this encounter Additional Health Concerns Assessment Noted Time PHQ-9 Depression Total Score: 15 12/08/2019 10:02 AM C DT documented as of this encounter Care Teams Knitting Demonstrator Relationship Specialty Start Date End Date Blank Lemos, PCP - General Internal Medicine [facility] [place] [phone] Blank Lemos, Assigned PCP 04/25/18 [facility] [place] [phone] Hardeep Cárdenas Personal Advocate & 06/17/1901/30 Liaison (PAL) documented as of this encounter
--- OUTSIDE RECORDS SUMMARY | 2022-04-09 07:19 | XMS_ITS | Encounter Summary ---
:1990 Author Organization [place] Address [address] [place] [address] Care Team Providers Name Role Phone Blank Lemos MD Primary Care Provider Blank Lemos MD Unavailable Encounter Details Date Type Department Care Team Description 02/20/2020 Travel Social History Tobacco Use Types Packs/Day [...] documented as of this encounter Care Teams Stain Wiper Relationship Specialty Start Date End Date Blank Lemos MD PCP - General Internal Medicine 04/22/[address] [place] [address] [place] [id number] Blank Lemos MD Assigned PCP 04/25/[address] [place] [address] [place] [id number] documented as of this encounter
--- OUTSIDE RECORDS SUMMARY | 2022-04-09 07:19 | XMS_ITS | Encounter Summary ---
:1990 Author Organization [place] Address [address] [place] [address] Care Team Providers Name Role Phone Blank Lemos MD Primary Care Provider Blank Lemos MD Unavailable Encounter Details Date Type Department Care Team Description 02/03/2020 Travel Social History Tobacco Use Types Packs/Day [...] been in contact with No / Unsure 02/03/2020 10:55 AM CDT someone who was confirmed or suspected to have Coronavirus / COVID-19? documented as of this encounter Plan of Treatment Not on filedocumented as of this encounter Visit Diagnoses Not on filedocumented in this encounter Additional Health Concerns Assessment Noted Time PHQ-9 Depression Total Score: 10 02/02/2020 8:23 AM CD T documented as of this encounter Care Teams Swimmer Relationship Specialty Start Date End Date Blank Lemos MD PCP - General Internal Medicine 04/22/[address] [place] [address] K[place]AN RENO [phone] Blank Lemos MD Assigned PCP 04/25/[address] [place] [address] K[place]AN RENO [id number] documented as of this encounter
--- OUTSIDE RECORDS SUMMARY | 2022-04-09 07:19 | XMS_ITS | Encounter Summary ---
:1990 Author Organization [place] Address [address] [place] [address] Care Team Providers Name Role Phone Blank Lemos MD Primary Care Provider Blank Lemos MD Unavailable Encounter Details Date Type Department Care Team Description 02/01/2020 Orders Only [facility] Ble eding in early [facility] [address] [place] [address] Social History Tobacco Use Types Packs/Day Years [...] been in contact with No / Unsure 02/01/2020 10:58 AM CDT someone who was confirmed or suspected to have Coronavirus / COVID-19? documented as of this encounter Plan of Treatment Not on filedocumented as of this encounter Procedures Procedure Name Priority Date/Time Associated Comments Diagnosis PROGESTERONE Routine 02/01/2020 11:02 Bleeding in early Result s for this AM CDT procedure are i n the results section. HCG QUANTITATIVE Routine 02/01/2020 11:02 Bleeding in early Re sults for this AM CDT procedure are i n the results section. documented in this encounter Results (ABNORMAL) HCG quantitative (02/01/2020 11:02 AM CDT) Patholo gist Method Time Signature HCG Quantitative 8,783 (H) 0 - 5 02/02/2020 [place] Serum IU/L 10:02 AM CDT [facility] Specimen Anatomical Collection Method Collection Time Receive d Time (Source) Location / / Volume Laterality Blood specimen 02/01/2020 11:02 0 (specimen) AM CDT 11:04 AM CDT Faiza Reyes CNM LAB - BLOOD ORDERABLES Performing Organization Address City/State/ZIP Code Phon e Number [facility] [address] [place] [address] Progesterone (02/01/2020 11:02 AM CDT) P athologist Signature Progesterone 12.2 ng/mL 02/01/2020 [facility] 6:04 PM CDT [facility] Comment: Progesterone Reference Range Female Non ?Follicular ?0.15-1.4 ?Luteal ?3.4-25. 6 ?Postmenopausal ??<0.15-0.73 ?1st Trimester ?? 11.2-90.0 ?2nd Trimester ?? 25.6-89.4 ?3rd Trimester ?? 48.4-422.5 Specimen Anatomical Collection Method Collection Time Receive d Time (Source) Location / / Volume Laterality Blood specimen 02/01/2020 11:02 0 (specimen) AM CDT 11:04 AM CDT Faiza Reyes CNM LAB - BLOOD ORDERABLES Performing Organization Address City/State/ZIP Code Phon e Number [facility] [address] [place] [address] [facility] documented in this encounter Visit Diagnoses Diagnosis Bleeding in early Unspecified hemorrhage in early pregnanc y, unspecified as to episode of care documented in this encounter Additional Health Concerns Assessment Noted Time PHQ-9 Depression Total Score: 15 12/08/2019 10:02 AM C DT documented as of this encounter Care Teams Mechanical Project Manager Relationship Specialty Start Date End Date Blank Lemos MD PCP - General Internal Medicine 04/22/[address] [place] [address] K[place] RENO [phone] Blank Lemos MD Assigned PCP 04/25/[address] [place] [address] KISHAN RENO [phone] documented as of this encounter
--- OUTSIDE RECORDS SUMMARY | 2022-04-09 07:19 | XMS_ITS | Encounter Summary ---
:1990 Author Organization [place] Address [facility] [place] [address] Care Team Providers Name Role Phone Blank Lemos MD Primary Care Provider Blank Lemos MD Unavailable Reason for Visit Reason Comments Care 17w 5d, c/o left wrist pain and increase of migraines Encounter Details Date Type Department Care Team Description 04/24/[address] [facility] Kathleen Lacy Enco unter for supervision of normal first in second trimester (Primary Dx); [facility]M Headache in , antepartum, secon d trimester; [place] [address] Carpal tunnel syndrome of le ft wrist [address] [place], [place] [address] [address] [place], [place] [phone] (Work) [phone] Social History Tobacco Use Types Packs/Day Years [...] Sign Reading Time Taken Comments Blood Pressure 110/74 04/24/2020 1:31 PM CDT Pulse - - Temperature - - Respiratory Rate - - Oxygen Saturation - - Inhaled Oxygen Concentration - - Weight 103 kg (227 lb) 04/24/2020 1:31 PM CDT Height - - Body Mass Index 40.21 04/09/2020 1:36 PM CDT documented in this encounter Patient Instructions Patient Kathleen Dominguez CNM - 04/24/2020 1:30 PM CDT Images from the original note were not included. Patient Education Carpal Tunnel Syndrome Carpal tunnel syndrome is a painful condition of the wrist and arm. It is caused by pressure on the median nerve. The median nerve is one of the nerves that give feeling and movement to the hand. It passes through a tunnel in the wrist called the carpal tunnel. This tunnel is made up of bones and ligaments. Narrowing of this tunnel or swelling of the tissues inside the tunnel puts pressure on the median nerve. This causes numbness, pins and needles, or electric shooting pains in your hand and forearm. Often the pain is worse at night and may wake you when you are asleep. Carpal tunnel syndrome may occur during and with use of control pills. It is more common in workers who must often bend their wrists. It is also common in people who work with power tools that cause strong vibrations. Home care ?? Rest the painful wrist. Avoid repeated bending of the wrist back and forth. This puts pressure onthe median nerve. Avoid using power tools with strong vibrations. ?? If you were given a splint, wear it at night while you sleep. You may also wear it during the dayfor comfort. ?? Move your fingers and wrists often to prevent stiffness. ?? Elevate your arms on pillows when you lie down. ?? Try using the unaffected hand more. ?? Try not to hold your wrists in a bent, downward position. ?? Sometimes changes in the work place may ease symptoms. If you type most of the day, it may help to change the position of your keyboard or add a wrist support. Your wrist should be in a neutral position and not bent back when typing. ?? You may use??[id number] pain medicine to treat pain and inflammation, unless another medicine was prescribed.??Anti-inflammatory pain medicines, such as ibuprofen or naproxen may be more effective than acetaminophen, which treats pain, but not inflammation.??If you have chronic liver or kidney disease or ever had a stomach ulcer or gastrointestinal bleeding, talk with your healthcare provider before using these medicines. ?? Opioid pain medicine will only give temporary relief and does not treat the problem. If pain continues, you may need a shot of a steroid drug into your wrist. ?? If the above methods fail, you may need surgery. This will open the carpal tunnel and release thepressure on the trapped nerve. Follow-up care Follow up with your healthcare provider, or??as advised. If X-rays were taken,??you will be notifiedof any new findings that may affect your care. When to seek medical advice Call your healthcare provider right away if any of these occur: ?? Pain not improving with the above treatment ?? Fingers or hand become cold, blue, numb, or tingly ?? Your whole arm becomes swollen or weak Date Last Reviewed: 12/08/2017 ?? [id number] [employer] [address] [place] [address], [place] [address]. All rights reserved. This information is not intended as a substitute for professional medical care. Always follow your healthcare professional's instructions. documented in this encounter Progress Notes Kathleen Lacy CNM - 04/24/2020 1:30 PM CDT S:Feels well. movement Yes Denies loss of fluid/vb/contractions/pelvic pain Pt states she gets a bad headache every other week, hx migraines before Sleep, ice, tylenol, peppermint oil do not help. Last one was 4 days long. Pt also had colposcopy with Dr. Frias. Recommendation to repeat pap and colposcopy prn. She also reports she has left wrist pain x several days. She states that it came on suddenly. She states she purchased a wrist brace and after one day of use, her pain was 80% better. O: BP 110/74 (BP Location: Left arm, Cuff Size: Adult Large) Wt 103 kg (227 lb) LMP 12/22/2019 BMI 40.21 kg/m?? Exam: Constitutional: healthy, alert and no distress Respiratory: Respirations even and unlabored Gastrointestinal: Abdomen soft, non-tender. Fundus measures appropriately for gestational age. Fetalheart tones heard easily. Psychiatric: mentation appears normal and affect normal/bright A/P: 1. (Z34.02) Encounter for supervision of normal first in second trimester (primary encounter diagnosis) 2. (O26.892, R51) Headache in , antepartum, second trimester - Counseled to try 1G tylenol and drink with caffeine at start of headache. Option to try benadryl or tylenol PM before bed. - Encouraged nightly magnesium supplement for headache prevention. - Counseled to let us know if headaches persist or worsen as fioricet may be an option. 3. (G56.02) Carpal tunnel syndrome of left wrist - Discussed relief measures and provided with education. Reviewed this can be common in . Can continue to wear brace as this is relieving her pain. She will can with any worsening symptoms. Declined genetic testing Anatomy US scheduled for 05/01, plan for virtual or in office visit a few days after to discuss results. Return to clinic 4 weeks Kathleen Lacy APRN, CNM documented in this encounter Plan of Treatment Not on filedocumented as of this encounter Visit Diagnoses Diagnosis Encounter for supervision of normal firs t in second trimester - Primary Supervision of normal first Headache in , antepartum, secon d trimester Carpal tunnel syndrome of left wrist Carpal tunnel syndrome documented in this encounter Additional Health Concerns Assessment Noted Time PHQ-9 Depression Total Score: 10 02/02/2020 8:23 AM CD T documented as of this encounter Care Teams Bankruptcy Law Specialist Relationship Specialty Start Date End Date Blank Lemos MD PCP - General Internal Medicine 04/22/[address] [place] [address] [place] R[place] [phone] Blank Lemos MD Assigned PCP 04/25/[address] [place] [address] KISHAN RENO [phone] documented as of this encounter
--- OUTSIDE RECORDS SUMMARY | 2022-04-09 07:19 | XMS_ITS | Encounter Summary ---
:1990 Author Organization [place] Address [address] [place] [address] Care Team Providers Name Role Phone Blank Lemos MD Primary Care Provider Blank Lemos MD Unavailable Encounter Details Date Type Department Care Team Description 02/24/2020 Travel Social History Tobacco Use Types Packs/Day [...] documented as of this encounter Care Teams Solar Photovoltaic Designer Relationship Specialty Start Date End Date Blank Lemos MD PCP - General Internal Medicine 04/22/[address] [place] [address] K[place] RENO [phone] Blank Lemos MD Assigned PCP 04/25/[address] [place] [address] KISHAN RENO [phone] documented as of this encounter
--- OUTSIDE RECORDS SUMMARY | 2022-04-09 07:19 | XMS_ITS | Encounter Summary ---
:1990 Author Organization [place] Address [address] [place] [address] Care Team Providers Name Role Phone Blank Lemos MD Primary Care Provider Blank Lemos MD Unavailable Hardeep Cárdenas Unavailable Unavailable Encounter Details Date Type Department Care Team Description 12/08/2019 Travel Social History Tobacco Use Types Packs/Day [...] documented as of this encounter Care Teams Health Care Facility Administrator Relationship Specialty Start Date End Date Blank Lemos, PCP - General Internal Medicine [facility] [place] [phone] Blank Lemos, Assigned PCP [facility] [place] [address] Hardeep Cárdenas Personal Advocate & 06/17/1901/30 Liaison (PAL) documented as of this encounter
--- OUTSIDE RECORDS SUMMARY | 2022-04-09 07:19 | XMS_ITS | Encounter Summary ---
:1990 Author Organization [place] Address [address] [place] [address] Care Team Providers Name Role Phone Blank Lemos MD Primary Care Provider Blank Lemos MD Unavailable Reason for Visit Reason Onset Date Comments Depression 02/02/2020 Anxiety 02/02/2020 Encounter Details Date Type Department Care Team Description 02/02/2020 Virtual Visit [facility] Blank Lemos Migraine without aura and without status migrainosus, not intractable (Primary Dx); Clinic Dev Camp MD Moderate episode of recurrent major depr essive disorder (H); [address] [facility] alized anxiety disorder; [facility] Bipolar I disorder (H) [address] K[place]AN MÉNDEZ [address] K[place]AN Méndez [address] Social History Tobacco Use Types Packs/Day [...] Patient Instructions Patient InstructionsBlank Lemos MD - 02/02/2020 8:30 AM CDT Zunilda Bauer to see you today. I agree with the Topamax wean you have started. I think it would be brower to stay on the Lexapro. Please don't use the imitrex or ambien. Continue with your ! Take care and good luck! Blank Lemos MD Internal Medicine/Pediatrics [facility] documented in this encounter Progress Notes Blank Lemos MD - 02/02/2020 8:30 AM CDT Rena Turner is a 30 year old female who is being evaluated via a billable video visit. The patient has been notified of following: This video visit will be conducted via a call between you and your physician/provider. We have found that certain health care needs can be provided without the need for an in-person physical exam. This service lets us provide the care you need with a video conversation. If a prescription is necessarywe can send it directly to your pharmacy. If lab work is needed we can place an order for that and you can then stop by our lab to have the test done at a later time. Video visits are billed at different rates depending on your insurance coverage. Please reach out toyour insurance provider with any questions. If during the course of the call the physician/provider feels a video visit is not appropriate, you will not be charged for this service. Patient has given verbal consent for Video visit? Yes Will anyone else be joining your video visit? No Subjective Rena Turner is a 30 year old female who presents today via video visit for the following health issues: Patient would like to review medications as she is now . HPI Depression and Anxiety Follow-Up ?? How are you doing with your depression since your last visit? Improved ?? How are you doing with your anxiety since your last visit? No change ?? Are you having other symptoms that might be associated with depression or anxiety? No ?? Have you had a significant life event? OTHER: ?? Do you have any concerns with your use of alcohol or other drugs? No Patient taking 1/2 tab topamax morning and night and then will go down to 1/2 daily x 2 weeks then then stop. Patient has also been told to stop imitrex and ambien as well. She also takes Lexapro 20mg which she has been stable on for bipolar, depression and anxiety. Patient found out about a week ago - thinks about 6 weeks. Feeling nausea and tired. Has first OB appt next week. This is her first . Took a break from [facility] for therapy, due to lost insurance, but not has insurance again and will contact [facility] to restart. Social History Tobacco Use ??? Smoking status: Former Smoker Packs/day: 0.25 Years: 8.00 Pack years: 2.00 Types: Cigarettes Last attempt to quit: 06/24/2019 Years since quittin.6 ??? Smokeless tobacco: Never Used Substance Use Topics ??? Alcohol use: No Alcohol/week: 0.0 standard drinks ??? Drug use: No PHQ 09/22/2018 12/08/2019 02/02/2020 PHQ-9 Total Score 4 15 10 Q9: Thoughts of better off /self-harm past 2 weeks Not at all Not at all Not at all GABRIEL-7 SCORE 09/22/2018 12/08/2019 02/02/2020 Total Score 3 19 14 Last PHQ-9 02/02/2020 1. Little interest or pleasure in doing things 1 2. Feeling down, depressed, or hopeless 1 3. Trouble falling or staying asleep, or sleeping too much 2 4. Feeling tired or having little energy 2 5. Poor appetite or overeating 1 6. Feeling bad about yourself 1 7. Trouble concentrating 2 8. Moving slowly or restless 0 Q9: Thoughts of better off /self-harm past 2 weeks 0 PHQ-9 Total Score 10 Difficulty at work, home, or with people Somewhat difficult GABRIEL-7 02/02/2020 1. Feeling nervous, anxious, or on edge 3 2. Not being able to stop or control worrying 2 3. Worrying too much about different things 2 4. Trouble relaxing 1 5. Being so restless that it is hard to sit still 1 6. Becoming easily annoyed or irritable 3 7. Feeling afraid, as if something awful might happen 2 GABRIEL-7 Total Score 14 If you checked any problems, how difficult have they made it for you to do your work, take care of things at home, or get along with other people? Very difficult Suicide Assessment Five-step Evaluation and Treatment (SAFE-T) ?? How many servings of fruits and vegetables do you eat daily? 2-3 ?? On average, how many sweetened beverages do you drink each day (Examples: soda, juice, sweet tea,etc. Do NOT count diet or artificially sweetened beverages)? 1 ?? How many days per week do you exercise enough to make your heart beat faster? 3 or less ?? How many minutes a day do you exercise enough to make your heart beat faster? 30 - 60 ?? How many days per week do you miss taking your medication? 0 Video Start Time: 8:31am Reviewed and updated as needed this visit by Provider Meds Review of Systems Constitutional, HEENT, cardiovascular, pulmonary, gi and gu systems are negative, except as otherwise noted. Objective Physical Exam GENERAL: Healthy, alert and no [...] insight intact, normal speech and appearance well-groomed. Diagnostic Test Results: Labs reviewed in [facility] Assessment & Plan 1. Migraine without aura and without status migrainosus, not intractable Agree with the topamax wean she is already doing. 2. Moderate episode of recurrent major depressive disorder (H) Controlled - recommend she stay on her Lexapro to keep her stable during . Did discuss thatif she would like to try a lower dose I would wean to 10mg first for a few weeks. Restart therapy. 3. Generalized anxiety disorder See above 4. Bipolar I disorder (H) See above - has OB appt arranged. Do not imitrex and ambien. Patient Instructions Hi Rena, Nice to see you today. I agree with the Topamax wean you have started. I think it would be brower to stay on the Lexapro. Please don't use the imitrex or ambien. Continue with your ! Take care and good luck! Blank Lemos MD Internal Medicine/Pediatrics [facility] Return for appointment already scheduled with OB. Blank Lemos MD [facility]3] Video-Visit Details Type of service: Video Visit Video End Time:8:42am Originating Location (pt. Location): Home Distant Location (provider location): [facility]3] Platform used for Video Visit: [facility] Return for appointment already scheduled with OB. Blank Lemos MD documented in this encounter Plan of Treatment Not on filedocumented as of this encounter Visit Diagnoses Diagnosis Migraine without aura and without status migrainosus, not intractable - Primary Migraine without aura, without mention o f intractable migraine without mention of status migrainosus Moderate episode of recurrent major depr essive disorder (H) Generalized anxiety disorder Bipolar I disorder (H) Bipolar I disorder, most recent episode (or current) unspecified documented in this encounter Additional Health Concerns Assessment Noted Time PHQ-9 Depression Total Score: 10 02/02/2020 8:23 AM CD T documented as of this encounter Care Teams Tire Beader Maker Relationship Specialty Start Date End Date Blank Lemos MD PCP - General Internal Medicine 04/22/[address] [place] [address] K[place] RENO [phone] Blank Lemos MD Assigned PCP 04/25/[address] [place] [address] K[place] RENO [phone] documented as of this encounter
--- OUTSIDE RECORDS SUMMARY | 2022-04-09 07:19 | XMS_ITS | Encounter Summary ---
:1990 Author Organization [place] Address [facility] [place] [address] Care Team Providers Name Role Phone Blank Lemos MD Primary Care Provider Blank Lemos MD Unavailable Reason for Visit Reason Onset Date Comments Results 02/08/2020 Encounter Details Date Type Department Care Team Description 02/08/2020 Telephone [facility] Ryann poon, Faiza Rodriguez, AYRELI Results [facility] [place] [id number] [place] [address] [address] [place] [address] [facility] [address] [place] [address] [phone] Social History Tobacco Use Types Packs/Day Years [...] been in contact with No / Unsure 02/07/2020 12:51 PM CDT someone who was confirmed or suspected to have Coronavirus / COVID-19? documented as of this encounter Miscellaneous Notes Telephone Encounter - Leanne Bustamante RN - 02/08/2020 4:48 PM CDT Pt advised. She is going to keep the US scheduled for 02/20/20. Leanne Sellers RN Telephone Encounter - Faiza Reyes CNM - 02/08/2020 4:29 PM CDT Attempted to call patient regarding lab results. Left message on patient voicemail to call me back. Quantitative HCGs are increasing, which is reassuring. Levels are high enough that if patient wishes,she could move her ultrasound (scheduled for 02/19) up a little for her reassurance. Faiza Reyes APRN, CNM documented in this encounter Plan of Treatment Not on filedocumented as of this encounter Visit Diagnoses Not on filedocumented in this encounter Additional Health Concerns Assessment Noted Time PHQ-9 Depression Total Score: 10 02/02/2020 8:23 AM CD T documented as of this encounter Care Teams Personal Injury Attorney Relationship Specialty Start Date End Date Blank Lemos MD PCP - General Internal Medicine 04/22/[address] [place] [address] [place] R[place] [phone] Blank Lemos MD Assigned PCP 04/25/[address] [place] [address] K[place] RENO [phone] documented as of this encounter
--- OUTSIDE RECORDS SUMMARY | 2022-04-09 07:19 | XMS_ITS | Encounter Summary ---
:1990 Author Organization [place] Address [facility] [place] [address] Care Team Providers Name Role Phone Blank Lemos MD Primary Care Provider Blank Lemos MD Unavailable Hardeep Cárdenas Unavailable Unavailable Encounter Details Date Type Department Care Team Description 12/08/2019 Telephone [facility] Ashly Gilman, Health & Addiction [facility] [address] [place] [address] [address] [place] [address] Social History Tobacco Use [...] this encounter Miscellaneous Notes Telephone Encounter - Bessy Gilman LICSW - 12/08/2019 10:48 AM CDT Phone Encounter [facility] attempted to reach patient, by PCP request. LM requesting a returned call and provided call backnumber. ANTONIO Menjivar, CYRUS documented in this encounter Plan of Treatment Not on filedocumented as of this encounter Visit Diagnoses Not on filedocumented in this encounter Additional Health Concerns Assessment Noted Time PHQ-9 Depression Total Score: 15 12/08/2019 10:02 AM C DT documented as of this encounter Care Teams Insurance Billing Clerk Relationship Specialty Start Date End Date Blank Lemos, PCP - General Internal Medicine [facility] [facility] [address] [place] [phone] Blank Lemos, Assigned PCP 04/25/[address] [facility] [place] [phone] Hardeep Cárdenas Personal Advocate & 06/17/1901/30 Liaison (PAL) documented as of this encounter
--- OUTSIDE RECORDS SUMMARY | 2022-04-09 07:19 | XMS_ITS | Encounter Summary ---
:1990 Author Organization [place] Address [address] [place] [address] Care Team Providers Name Role Phone Blank Lemos MD Primary Care Provider Blank Lemos MD Unavailable Encounter Details Date Type Department Care Team Description 02/03/2020 Orders Only [facility] Ble eding in early [facility] [address] [place] [address] Social History Tobacco Use Types [...] Procedure Name Priority Date/Time Associated Comments Diagnosis HCG QUANTITATIVE Routine 02/03/2020 10:56 Bleeding in early Re sults for this AM CDT procedure are i n the results section. documented in this encounter Results (ABNORMAL) HCG quantitative (02/03/2020 10:56 AM CDT) [facility] Method Time Signature HCG Quantitative 13,231 0 - 5 02/04/2020 [place] Serum (H) IU/L 12:58 PM CDT [facility] Specimen Anatomical Collection Method Collection Time Receive d Time (Source) Location / / Volume Laterality Blood specimen 02/03/2020 10:56 0 (specimen) AM CDT 10:57 AM CDT Faiza Reyes CNM LAB - BLOOD ORDERABLES Performing Organization Address City/State/ZIP Code Phon e Number [facility] [address] [place] [address] documented in this encounter Visit Diagnoses Diagnosis Bleeding in early Unspecified hemorrhage in early pregnanc y, unspecified as to episode of care documented in this encounter Additional Health Concerns Assessment Noted Time PHQ-9 Depression Total Score: 10 02/02/2020 8:23 AM CD T documented as of this encounter Care Teams Improvement Intern Relationship Specialty Start Date End Date Blank Lemos MD PCP - General Internal Medicine 04/22/[address] [place] [address] [place] [phone] Blank Lemos MD Assigned PCP 04/25/[address] [place] [address] [place] RENO [phone] documented as of this encounter
--- OUTSIDE RECORDS SUMMARY | 2022-04-09 07:19 | XMS_ITS | Encounter Summary ---
:1990 Author Organization [place] Address [address] [place] [address] Care Team Providers Name Role Phone Blank Lemos MD Primary Care Provider Blank Lemos MD Unavailable Encounter Details Date Type Department Care Team Description 04/09/2020 Travel Social History Tobacco Use Types Packs/Day [...] documented as of this encounter Care Teams Electrical Systems Drafter Relationship Specialty Start Date End Date Blank Lemos MD PCP - General Internal Medicine 04/22/[address] [place] [address] [place] [phone] Blank Lemos MD Assigned PCP 04/25/[address] [place] [address] [place] [phone] documented as of this encounter
--- OUTSIDE RECORDS SUMMARY | 2022-04-09 07:19 | XMS_ITS | Encounter Summary ---
:1990 Author Organization [place] Address [facility] [place] [address] Care Team Providers Name Role Phone Blank Lemos MD Primary Care Provider Blank Lemos MD Unavailable Hardeep Cárdenas Unavailable Unavailable Encounter Details Date Type Department Care Team Description 01/04/[address] [facility] Blank Oliveros MD [place] [address] [facility] [address] [facility] [place] [address] [address] [place] [address] [phone] Social History Tobacco Use Types Packs/Day Years [...] documented as of this encounter Care Teams Mill Supervisor Relationship Specialty Start Date End Date Blank Lemos, PCP - General Internal Medicine 04/22/[address] [place] [address] [place] R[place] [phone] Blank Lemos, Assigned PCP 04/[facility] [place] [phone] Hardeep Cárdenas Personal Advocate & 06/17/1901/30 Liaison (PAL) documented as of this encounter
--- OUTSIDE RECORDS SUMMARY | 2022-04-09 07:19 | XMS_ITS | Encounter Summary ---
:1990 Author Organization [place] Address [address] [place] [address] Care Team Providers Name Role Phone Blank Lemos MD Primary Care Provider Blank Lemos MD Unavailable Encounter Details Date Type Department Care Team Description 03/27/2020 Travel Social History Tobacco Use Types Packs/Day [...] been in contact with No / Unsure 03/27/2020 8:56 AM CDT someone who was confirmed or suspected to have Coronavirus / COVID-19? documented as of this encounter Plan of Treatment Not on filedocumented as of this encounter Visit Diagnoses Not on filedocumented in this encounter Additional Health Concerns Assessment Noted Time PHQ-9 Depression Total Score: 10 02/02/2020 8:23 AM CD T documented as of this encounter Care Teams Scenario Writer Relationship Specialty Start Date End Date Blank Lemos MD PCP - General Internal Medicine 04/22/[address] [place] [address] [place] [phone] Blank Lemos MD Assigned PCP 04/25/[address] [place] [address] [place] [phone] documented as of this encounter
--- OUTSIDE RECORDS SUMMARY | 2022-04-09 07:19 | XMS_ITS | Encounter Summary ---
:1990 Author Organization [place] Address [facility] [place] [address] Care Team Providers Name Role Phone Blank Lemos MD Primary Care Provider Blank Lemos MD Unavailable Hardeep Cárdenas Unavailable Unavailable Encounter Details Date Type Department Care Team Description 01/05/2020 Virtual Visit [facility] Blank Lemos anxiety disorder (Primary Dx); Clinic Dev Camp MD Insomnia, unspecified type [address] [place] [address] [facility] [address] [place] [address] [place] [address] Social History Tobacco Use [...] Patient Instructions Patient InstructionsBlank Lemos MD - 01/05/2020 2:55 PM CDT Winston Chase, Nice to talk with you today. Please continue the ambien and add melatonin 3-6mg before bedtime as well. Continue the lexapro and therapy. I will have someone contact you to set up follow up appt in 4 weeks. Take Blank hodge MD Internal Medicine/Pediatrics [facility] documented in this encounter Progress Notes Blank Lemos MD - 01/05/2020 2:55 PM CDT VISIT CONVERTED TO PHONE VISIT (VIDEO NOT WORKING) The patient has been notified of the following: We have found that certain health care needs can be provided without the need for a face to face visit. This service lets us provide the care you need with a phone conversation. I will have full access to your [place] medical record during this entire phone call. I will be taking notes for your medical record. Since this is like an office visit, we will bill your insurance company for this service. There are potential benefits and risks of [...] obtained for this service by care steam and power supervisor: Yes HPI Medication Followup of ambien ?? Taking Medication as prescribed: yes ?? Side Effects: None ?? Medication Helping Symptoms: a little bit Today feeling ok. Still on leave from work. Trazodone NOT working - made her feel too groggy in AM. Not using melatonin. Ambien hit or miss but definitely better. Having major night sweats, getting better. Now getting 3good nights of sleep per week (better than none). Working with [employer]. Has left house a few times - [facility] [employer] [facility] - big step. Still not back at work - patient is not sure if she has a job again. ROS: 7 point neg VS: none Gen: pleasant, good affect A/P: 1. Insomnia - some improvement with ambien -will continue for now. Add melatonin 3-6mg before bedtime as well. 2. Anxiety - gradual progress with therapy - continue therapy and lexapro. Close follow up in 4 weeks. Total phone time 9 min Blank Lemos MD Internal Medicine/Pediatrics [facility] Sosa Whitehead - 01/05/2020 2:55 PM CDT Left message for patient to call back to schedule video appt 02/01. Sosa Whitehead, Repair Service Dispatcher documented in this encounter Plan of Treatment Not on filedocumented as of this encounter Visit Diagnoses Diagnosis Generalized anxiety disorder - Primary Insomnia, unspecified type documented in this encounter Additional Health Concerns Assessment Noted Time PHQ-9 Depression Total Score: 15 12/08/2019 10:02 AM C DT documented as of this encounter Care Teams Alto Singer Relationship Specialty Start Date End Date Blank Lemos, PCP - General Internal Medicine 04/22/18 [place] [place] [phone] Blank Lemos, Assigned PCP 04/25/18 [place] [facility] K[place] [phone] Hardeep Cárdenas Advocate & 06/17/1901/30 Liaison (PAL) documented as of this encounter
--- OUTSIDE RECORDS SUMMARY | 2022-04-09 07:19 | XMS_ITS | Encounter Summary ---
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 [address] [facility] [address] [place] [address] [address] [place] [address] (Work) [phone] Social History Tobacco Use Types Packs/Day Years [...] on file documented as of this encounter Progress Notes Bessy Gilman LICSW - 01/19/2020 1:00 PM CDT Patient reported to [facility] that she has no insurance and needs to put a pause on services. [facility] informedpatient that she can reach back out via calling the clinic or [facility] to schedule again when able. 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
--- OUTSIDE RECORDS SUMMARY | 2022-04-09 07:19 | XMS_ITS | Encounter Summary ---
:1990 Author Organization [place] Address [facility] [place] [address] Care Team Providers Name Role Phone Blank Lemos MD Primary Care Provider Blank Lemos MD Unavailable Reason for Visit Reason Comments Care 9w 1d, c/o nausea and vomite d for first time last night Encounter Details Date Type Department Care Team Description 02/24/2020 [facility] supervision of normal first in first trimester (Primary Dx); [facility] YARELI Rodriguez BMI 45.0-49.9, adult (H); [place] [id number] [place] [address] Pap smear for cervical cance r screening [id number] [place] [address] [phone] (Work) [phone] Social History Tobacco Use Types Packs/Day Years [...] Sign Reading Time Taken Comments Blood Pressure 120/82 02/24/2020 9:03 AM CDT Pulse - - Temperature - - Respiratory Rate - - Oxygen Saturation - - Inhaled Oxygen Concentration - - Weight 98 kg (216 lb) 02/24/2020 9:03 AM CDT Height - - Body Mass Index 38.26 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 We will notify you about your labs that were drawn today once we get the results back or if you have Izzui they will be posted there as well ?? We will call you personally with results that require further discussion ?? If any referrals were ordered today you should be getting a call in the next week or you may needto call the number listed with your referral to schedule. ?? If you need any refills of medications please call your pharmacy and they will contact us ?? If you have any questions or concerns before your next visit, you can reach the nurse healthcare administration internship subscription agent by calling our pager number [phone]. ?? If you wish to schedule another appointment, please call our office at [phone]. You can alsomake appointments through Izzui ?? If you have a medical emergency please call 911. Because you are , we have additional resources for you: ?? You may call our consulting RN's during normal business hours for non-urgent questions about yourpregnancy. ?? After hours you may also page the healthcare administration internship subscription agent for urgent questions or issues at [phone].There is always a healthcare administration internship subscription agent 24 hours a day. Reminders: Before 14 weeks: Dating ultrasound, Genetic testing This ultrasound helps us determine your dates accurately. Verifi can be drawn anytime after 10 weeks of gestation 16 weeks: Optional genetic testing (quad screen) or single AFP This testing helps understand your baby's risk for some genetic abnormalities. 20 weeks: Screening ultrasound ( survey) This testing will look for early growth abnormalities, and may tell the baby's sex if you wish to find out. 28 weeks: One hour sugar test (GCT), hemoglobin and platelets This test helps identify diabetes of or gestational diabetes. We also look at the iron inyour blood and how well your blood clots. 28 - 36 weeks: Tetanus shot (Tdap) This shot helps protect you and your baby from tetanus and whooping cough. 36 weeks and later: Group B Strep test (GBS) This test helps predict if you need antibiotics in labor to prevent infection in your baby. Anytime April to November: Flu shot This shot helps protect you and your family from the flu. This is especially important during Any time during or after your you may experience increased depression and/or mood changes. We are here to support you. Please contact us if you are: ?? Feeling anxious ?? Overwhelmed or sad ?? Trouble sleeping ?? Crying uncontrollably ?? Trouble caring for yourself or baby. The typical schedule after your first visit today you can expect: Visit 2 - 12-16 weeks Visit 3 - 20 weeks Visit 4 - 24 weeks Visit 5 - 28 weeks Visit 6 - 32 weeks Visit 7 - 34 weeks Visit 8 - 36 weeks Weekly after 36 weeks until delivery. If anything comes up between your visits or you have concerns please don't hesitate to contact us. Secure access to your medical record: Use Voluntis (secure email communication and access to your chart) to send your primary care providera message or make an appointment. Ask someone on your Team how to sign up for Voluntis. To log on to [employer] or for more information in Voluntis please visit the website at [email or web address]. Certified Nurse Hand Tapper (CNM) Team Faiza Vasquez APRN, YARELI Rendon APRN, YARELI Ingram APRN, YARELI Jones APRN, YARELI Again, thank you for choosing the midwives at [facility]. We are excited to be a part of your . Please let us know how we can best partner with you to improve your and your family's health. documented in this encounter Progress Notes Faiza Vasquez CNM - 02/24/2020 9:00 AM CDT Rena Resendiz is a 30 year old woman, who is not a previous CNM patient. She presents for a new OB Visit. This was not a planned . FOB is Micah who is in good health. FOB IS actively involved in relationship and this . Rena presents today for her first OB visit. She has been having daily nausea. Yesterday she vomited and has had watery diarrhea since. Denies fever, abdominal pain. She has not had any further bleeding since her LMP. She denies abdominal pain since her LMP. She has had nausea. has had vomiting. Any personal or family history of blood clots? No History of sickle cell anemia or trait? No Patient's last menstrual period was 12/22/2019.. Estimated Date of Delivery: Sep 27, 2020 Ultrasoundconsistent with LMP. MENSTRUAL HISTORY frequency: every 28-32 days Last PAP: 2019 History of abnormal Pap? Yes: [facility] Health maintenance updated: yes Current medications are: Current Outpatient Medications: ??? escitalopram (LEXAPRO) 20 MG tablet, Take 1 tablet (20 mg) by mouth daily, Disp: 90 tablet, Rfl:1 ??? melatonin 1 MG TABS tablet, Take 3 mg by mouth nightly as needed, Disp: , Rfl: ??? Vit-Fe Fumarate-FA ( MULTIVITAMIN W/IRON) 27-0.8 MG tablet, Take 1 tablet by mouth daily, Disp: , Rfl: ??? Pyridoxine HCl (B-6 PO), , Disp: , Rfl: ??? Vitamin D, Cholecalciferol, 25 MCG (1000 UT) TABS, Take 2,000 Int'l Units by mouth daily, Disp: , Rfl: ??? SUMAtriptan (IMITREX) 25 MG tablet, TAKE 1 TO 2 TABLETS BY MOUTH AT ONSET OF MIGRAINE. MAY REPEAT IN 2 HOURS. MAX OF 8 TABLETS PER 24 HOURS. (Patient not taking: Reported on 02/07/2020), Disp: 18 tablet, Rfl: 3 ??? zolpidem (AMBIEN) 5 MG tablet, Take 1 tablet (5 mg) by mouth nightly as needed for sleep (Patient not taking: Reported on 02/07/2020), Disp: 30 tablet, Rfl: 0 INFECTION HISTORY HIV: No Hepatitis B: No Hepatitis C: No Tuberculosis: No Genital Herpes self: no Herpes partner: no Chlamydia: no Gonorrhea: no HPV: Yes BV: No Syphilis: No Chicken Pox: Yes - age 4 OB HISTORY OB History Para Term AB Living 1 0 0 0 0 0 SAB TAB Ectopic Multiple Live Births 0 0 0 0 0 # Outcome Date GA Lbr Luis Alfredo/2nd Weight Sex Delivery Anes PTL Lv 1 Current PERSONAL HISTORY Exercise Habits: aerobic and walking 4-7 days per week. Employment: Unemployed. Travel plans: are none planned. Diet: follows a balanced nutrition diet, gluten and dairy vitamins? Yes: Fish Oil? Yes: Abuse concerns? No Any history if abuse, varbal, physical, sexual? No Hgb A1c screen: BMI > 30: Yes, 1st degree family DM: No, History of GDM: No, PCOS: No, High risk ethnicity: No Social History Socioeconomic History ??? Marital status: Spouse name: Micah Abreu ??? Number of children: Not on file ??? Years of education: Not on file ??? Highest education level: High school graduate Occupational History ??? Occupation: unemployed Social Needs ??? Financial resource strain: Not hard at all ??? Food insecurity Worry: Never true Inability: Never true ??? Transportation needs Medical: No Non-medical: No Tobacco Use ??? Smoking status: Former Smoker Packs/day: 0.25 Years: 8.00 Pack years: 2.00 Types: Cigarettes Last attempt to quit: 06/24/2019 Years since quittin.6 ??? Smokeless tobacco: Never Used Substance and Sexual Activity ??? Alcohol use: No Alcohol/week: 0.0 standard drinks ??? Drug use: No ??? Sexual activity: Yes Partners: Male Lifestyle ??? Physical activity Days per week: Not on file Minutes per session: Not on file ??? Stress: Not on file Relationships ??? Social connections Talks on phone: Not on file Gets together: Not on file Attends tenriism service: Not on file Active member of club or organization: Not on file Attends meetings of clubs or organizations: Not on file Relationship status: Not on file ??? Intimate partner violence Fear of current or ex partner: Not on file Emotionally abused: Not on file Physically abused: Not on file Forced sexual activity: Not on file Other Topics Concern ??? Parent/sibling w/ CABG, [place] or angioplasty before 65F 55M? 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 Smokes 3 cigs per day down from 1 ppd. Sex with men, no intercourse in a long time. She reports that she quit smoking about 8 months ago. Her smoking use included cigarettes. She has a2.00 pack-year smoking history. She has never used smokeless tobacco. STD testing offered? Accepted Last PHQ-9 score on record = PHQ-9 SCORE 02/02/2020 PHQ-9 Total Score - PHQ-9 Total Score MyChart - PHQ-9 Total Score 10 Last GAD7 score on record = GABRIEL-7 SCORE 02/02/2020 Total Score 14 Alcohol Score = 0 Referral/Meds needed? no PAST MEDICAL/SURGICAL HISTORY Past Medical History: Diagnosis Date ??? Abnormal Pap smear of cervix 09/22/2018 See problem list ??? Bipolar disorder (H) ??? Cervical high risk HPV (human papillomavirus) test positive 09/22/2018 ??? Depression with anxiety ??? Generalized anxiety disorder Past Surgical History: Procedure Laterality Date ??? LAPAROTOMY EXPLORATORY Operation for c/f endometriosis. None found, no interventions. Pt thinks this happened [id number] ??? TONSILLECTOMY FAMILY HISTORY Family History Problem Relation Age of Onset ??? Thyroid Disease Mother ??? Breast Cancer Maternal Grandmother ??? Breast Cancer Maternal Grandfather ??? Diabetes No family hx of ROS: CONSTITUTIONAL: NEGATIVE for fever, chills, change in weight INTEGUMENTARU/SKIN: NEGATIVE for worrisome rashes, moles or lesions EYES: NEGATIVE for vision changes or irritation ENT: NEGATIVE for ear, mouth and throat problems RESP: NEGATIVE for significant cough or SOB BREAST: NEGATIVE for masses, tenderness or discharge CV: NEGATIVE for chest pain, palpitations or peripheral edema GI: NEGATIVE for abdominal pain, heartburn POSITIVE for nausea, vomiting and diarrhea : NEGATIVE for unusual urinary or vaginal symptoms. Periods were regular. MUSCULOSKELETAL: NEGATIVE for significant arthralgias or myalgia NEURO: NEGATIVE for weakness, dizziness or paresthesias ENDOCRINE: NEGATIVE for temperature intolerance, skin/hair changes HEME/ALLERGY/IMMUNE: NEGATIVE for bleeding problems PSYCHIATRIC: NEGATIVE for changes in mood or affect PHYSICAL EXAM Vitals: BP 120/82 (BP Location: Left arm, Cuff Size: Adult Large) Wt 98 kg (216 lb) LMP 12/22/2019 BMI 38.26 kg/m?? BMI= Body mass index is 38.26 kg/m??. GENERAL: 30 year old pleasant female, alert, cooperative and well groomed. NECK: Thyroid without enlargement and nodules. Lymph nodes not palpable. LUNGS: Clear to auscultation. BREAST: Symmetrical without lesions or nodes. Nipples everted. Areolas symmetric. No palpable axillary nodes. HEART: RRR without murmur. ABDOMEN: Soft without masses or tenderness. No scars noted.. GENITALIA: BUS without tenderness or inflammation. Perineum without lesions. VAGINA: [place], normal rugae and discharge. CERVIX: Anterior, smooth, without discharge, and firm/ closed 4 cm long. UTERUS: Anteverted, nontender 9 weeks in size. ADNEXA: Without masses or tenderness RECTAL: Normal appearance. Digital exam deferred. LOWER EXTREMITIES: No edema. No significant varicosities. ASSESSMENT/PLAN: IUP at 9w1d ICD-10-CM 1. Encounter for supervision of normal first in first trimester Z34.01 NEISSERIA GONORRHOEA PCR CHLAMYDIA TRACHOMATIS PCR 2. BMI 45.0-49.9, adult (H) Z68.42 Hemoglobin A1c TSH with free T4 reflex 3. Pap smear for cervical cancer screening Z12.4 Pap imaged thin layer screen with HPV - recommendedage 30 - 65 years (select HPV order below) HPV High Risk Types DNA Cervical consult for US for AMA patients: NA Genetic Testing reviewed and discussed, patient desires to discuss further with her partner and willlet us know. COUNSELING ?? Instructed on use of triage nurse line and contacting the subscription agent CNM after hours in an emergency. ?? Symptoms of N&V and fatigue usually start to resolve around 12-16 weeks ?? Reviewed CNM philosophy, call schedule for labor and delivery, and [facility] for delivery ?? 1st OB handout given outlining appointment spacing and CNM information ?? Reviewed exercise and nutrition ?? Recommend to gain 15 pounds with her . ?? Discussed OTC medications. OB med list given ?? Encouraged patient to arrange daycare if needed ?? Encouraged patient to take PNV's/DHA ?? Travel precautions discussed, no air travel after 36 weeks and Zika Virus discussed ?? Will call patient with lab results when available Does patient desire a RN home visit from the [facility]? No If yes, paperwork completed? No F/U to be addressed next visit: Nausea and vomiting, Rx's given, referrals Will return to the clinic in 4 weeks for her next routine check. Will call to be seen sooner if problems arise. Faiza Vasquez APRN, CNM documented in this encounter Nursing Luz Maria Avery - 02/24/2020 9:00 AM CDT Chief Complaint Patient presents with ??? Care 9w 1d, c/o nausea and vomited for first time last night Initial BP 120/82 (BP Location: Left arm, Cuff Size: Adult Large) Wt 98 kg (216 lb) LMP 12/22/2019 BMI 38.26 kg/m?? Estimated body mass index is 38.26 kg/m?? as calculated from the following: Height as of 07/15/19: 1.6 m (5' 3). Weight as of this encounter: 98 kg (216 lb). BP completed using cuff size: large Questioned patient about current smoking habits. Pt. quit smoking some time ago. The following HM Due: pap smear Chalmydia (13-24) Luz Maria Abreu CMA documented in this encounter Plan of Treatment Not on filedocumented as of this encounter Procedures Procedure Name Priority Date/Time Associated Diagnosis Comme nts TSH WITH FREE T4 Routine 02/24/2020 9:47 AM BMI 45.0-49.9, carmen lt Results for this REFLEX CDT (H) procedure are i n the results section. HEMOGLOBIN A1C Routine 02/24/2020 9:47 AM BMI 45.0-49.9, adult Results for this CDT (H) procedure are i n the results section. PAP IMAGED THIN Routine 02/24/2020 9:35 AM Pap smear for Resul ts for this LAYER SCREEN CDT cervical cancer procedure ar e in screening the results section. HPV HIGH RISK TYPES Routine 02/24/2020 9:30 AM Pap smear for R esults for this DNA CERVICAL CDT cervical cancer procedure ar e in screening the results section. NEISSERIA Routine 02/24/2020 9:30 AM Encounter for Results for this GONORRHOEAE PCR CDT supervision of procedure are in normal first the results in first section. trimester CHLAMYDIA Routine 02/24/2020 9:30 AM Encounter for Results for this TRACHOMATIS PCR CDT supervision of procedure are in normal first the results in first section. trimester documented in this encounter Results TSH with free T4 reflex (02/24/2020 9:47 AM CDT) athologist Signature TSH 2.05 0.40 - 4.00 02/25/2020 [facility] mU/L 12:08 PM CDT [facility] Specimen Anatomical Collection Method Collection Time Receive d Time (Source) Location / / Volume Laterality Blood specimen 02/24/2020 9:47 AM 020 9:52 (specimen) CDT AM CDT Faiza Vasquez CNM LAB - BLOOD ORDERABLES Performing Organization Address City/State/ZIP Code Phon e Number [facility] [address] [place] [address] Hemoglobin A1c (02/24/2020 9:47 AM CDT) athologist Signature Hemoglobin A1C 5.2 0 - 5.6 % 02/24/2020 [place] 2:13 PM CDT [facility] Comment: Normal <5.7% Prediabetes 5.7-6.4% ??Diab etes 6.5% or higher - adopted from ADA consensus guidelines. Specimen Anatomical Collection Method Collection Time Receive d Time (Source) Location / / Volume Laterality Blood specimen 02/24/2020 9:47 AM 020 9:52 (specimen) CDT AM CDT Faiza Vasquez YARELI LAB - BLOOD ORDERABLES Performing Organization Address City/State/ZIP Code Phon e Number [facility] [address], [place] [address] [address] (ABNORMAL) Pap imaged thin layer screen with HPV - recommended age 30 - 65 years (select HPV order below) (02/24/2020 9:35 AM CDT) Component Value Ref Test Analysis Performed At [facility] Range Method Time Signature PAP ASC-US (A) COPATH Copath Report COPATH Patient Name: RENA RESENDIZ MR#: [id number] Specimen #: [id number] Collected: 02/24/2020 Received: 02/27/2020 Reported: 02/29/2020 16:35 Ordering Phy(s): FAIZA VASQUEZ For improved result formatting, select 'View Enhanced Report Format' under Linked Documents section. SPECIMEN/STAIN PROCESS: Pap imaged thin layer prep screening (Surepath, FocalPoint w ith guided screening) ? Pap-Cyto x 1, HPV ordered x 1 SOURCE: Cervical, endocervical ---- Pap imaged thin layer prep screening (Surepath, FocalPoint with guided screening) SPECIMEN ADEQUACY: Satisfactory for evaluation. -Transformation zone component present. CYTOLOGIC INTERPRETATION: Epithelial cell abnormality: ??squamous cell: ??atypical squ amous cells-of undetermined significance (ASC-US). Electronically signed out by: Sandra Palumbo M.D. CLINICAL HISTORY: LMP: 12/22/2019 , Previous LGSIL Date of Last Pap: 09/22/2018, Papanicolaou Test Limitations: ??Cervical cytology is a sc reening test with limited sensitivity; regular screening is critical for cancer prevention; Pap tests are p rimarily effective for the diagnosis/prevention of squamous cell carcinoma, not adenocarcinomas or other cancer s. COLLECTION SITE: Client: ??[facility] Location: RIOB (R) The technical component of this testing was completed at the [facility], with the professional compo nent performed at the [facility], [address], [place], [place] [phone] ([phone]) Specimen (Source) Anatomical Collection Method Collection Time Re ceived Time Location / / Volume Laterality Cytologic 02/24/2020 9:35 02/27/2020 7 :32 material AM CDT AM CDT (specimen) Faiza [facility] - OPTIME CLINICAL SPECIM EN Performing Organization Address City/State/ZIP Code Phon e Number [place] (ABNORMAL) HPV High Risk Types DNA Cervical (02/24/2020 9:30 AM CDT) [facility] Method Time Signature HPV Source SurePath 02/24/2020 [place] 9:35 AM CDT [facility] HPV 16 DNA Negative NEG^Negat 03/05/2020 [facility] [place] 6:46 AM CDT [facility] HPV 18 DNA Negative NEG^Negat 03/05/2020 [facility] [place] 6:46 AM CDT [facility] Other HR HPV Positive (A) NEG^Negat 03/05/2020 [facility] [place] 6:46 AM CDT [facility] Final This patient's sample is pos itive for other HR HPV DNA (types 31, 33, 35, 39, 45, 51, 52, 03/05/2020 [facility] 56, 58, 59, 66 or 68), not H PV 16 or HPV 18 DNA. This result requires clinical correlation 6:46 AM CDT [facility] with concurrent cytology findings. [facility] Comment: This test was developed and its performa nce characteristics determined by the [facility], Molecular Diagnostics Laboratory. It has not been [...] followup is recommended. Specimen Description Cervical Cells 02/24/2020 9:[address] [facility] Comment: [id number] Specimen Anatomical Collection Method Collection Time Receive d Time (Source) Location / / Volume Laterality Cervical Cells CERVIX UTERI 02/24/2020 9:30 AM 020 3:22 STRUCTURE / CDT PM CDT Unknown Faiza Vasquez CNM LAB - BLOOD ORDERABLES Performing Organization Address City/[facility] Code Phon e Number [address] [address] [facility] [address], [place] [address] [address] CHLAMYDIA TRACHOMATIS PCR (02/24/2020 9:30 AM CDT) [facility] Method Time Signature Specimen Vagina 02/24/2020 [place] Description 2:41 PM CDT [facility] Chlamydia Negative NEG^Negat 02/26/2020 INFECTIOUS Trachomatis PCR [place] 2:30 PM CDT [facility] Comment: Negative for C. trachomatis rRNA by hoffman scription mediated amplification. A negative result by garbage truck dispatcher media logan amplification does not preclude the presence of C. trachomatis infection because results are dependent on proper and adequate collection, absence of inhibitors, and sufficient rRNA to be detected. Specimen Anatomical Collection Method Collection Time Receive d Time (Source) Location / / Volume Laterality Specimen from 02/24/2020 9:30 AM 02/24/20 20 2:40 vagina CDT PM CDT (specimen) Faiza Vasquez CNM LAB - MICRO GENERAL ORDERABL ES Performing Organization Address City/State/ZIP Code Phon e Number [facility] [address] [place] [address] DI[facility]STIC LABORATORY, [facility] [address] [place] [address] [facility] 180 INFECTIOUS DISEASES [address] [place] [address], A [facility]STIC LAB[facility]ATORY NEISSERIA GONORRHOEA PCR (02/24/2020 9:30 AM CDT) Analysis Performed At Patho logist Time Signature Specimen Vagina 02/24/2020 [place] Descrip 2:41 PM CDT [facility] N Gonorrhea Negative NEG^Negati 02/26/2020 INFECTIOUS PCR ve 2:30 PM CDT [facility] Comment: Negative for N. gonorrhoeae rRNA by hoffman scription mediated amplification. A negative result by garbage truck dispatcher media logan amplification does not preclude the presence of N. gonorrhoeae infection because results are dependent on proper and adequate collection, absence of inhibitors, and sufficient rRNA to be detected. Specimen Anatomical Collection Method Collection Time Receive d Time (Source) Location / / Volume Laterality Specimen from 02/24/2020 9:30 AM 02/24/20 20 2:40 vagina CDT PM CDT (specimen) Faiza Vasquez CNM LAB - MICRO GENERAL ORDERABL ES Performing Organization Address City/State/ZIP Code Phon e Number INFECTIOUS DISEASES [address] [place] [address] DIAGNOSTIC LABORATORY, [facility] [address] [place] [address] [place] [address] INFECTIOUS DISEASES [address] [place] [address], A DI[facility] LAB[facility] documented in this encounter Visit Diagnoses Diagnosis Encounter for supervision of normal firs t in first trimester - Primary Supervision of normal first BMI 45.0-49.9, adult (H) Body Mass Index 45.0-49.9, adult Pap smear for cervical cancer screening Screening for malignant neoplasm of the cervix documented in this encounter Additional Health Concerns Assessment Noted Time PHQ-9 Depression Total Score: 10 02/02/2020 8:23 AM CD T documented as of this encounter Care Teams Pin Drafting Machine Tender Relationship Specialty Start Date End Date Blank Lemos MD PCP - General Internal Medicine 04/22/18 [address] [facility] [address] [place], [place] [address] Blank Lemos MD Assigned PCP 04/25/18 [address] [facility] [place] [address] documented as of this encounter
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
--- OUTSIDE RECORDS SUMMARY | 2022-04-09 07:19 | XMS_ITS | Encounter Summary ---
:1990 Author Organization [place] Address [address] [place] [address] Care Team Providers Name Role Phone Blank Lemos MD Primary Care Provider Blank Lemos MD Unavailable Reason for Referral Diagnostic Imaging Ultrasound (Routine) - Closed Specialty Diagnoses / Procedures Referred By Contact Refer red To Contact Diagnoses care in first trimester Mayra Cooper CNM Procedures US OB > [address] [place], [place] [address] Referral ID Status Reason Start Date Expiration Date Visits Requ ested Visits Authorized [id number] Closed 03/27/2020 03/27/2021 1 1 Reason for Visit Reason Comments Care 13w 5d, still having some he adaches, nausea is better Encounter Details Date Type Department Care Team Description [facility] YARELI Kendall first trimester [place] [address] (Primary Dx) [address] [place], [place] [address] [address] [place], [place] [phone] [address] (Work) [phone] Social History Tobacco Use Types Packs/Day Years [...] Sign Reading Time Taken Comments Blood Pressure 116/80 03/27/2020 9:16 AM CDT Pulse - - Temperature - - Respiratory Rate - - Oxygen Saturation - - Inhaled Oxygen Concentration - - Weight 100.7 kg (222 lb) 03/27/2020 9:16 AM CDT Height - - Body Mass Index 39.33 07/15/2019 2:56 PM CLINICAL CONSULTANT documented in this encounter Progress Notes Mayra Cooper, YARELI - 03/27/2020 9:30 AM CDT Feeling well. Baby is active. Denies any leaking of fluid, vaginal bleeding, regular uterine contractions, or headaches or other concerns. Discussed anatomy US. Ordered for 5-6 weeks. Can do the CNM appt the same day or virtually. Reviewed to call [phone] for contractions, loss of fluid, vaginal bleeding, decreased movement or any other questions or concerns. RTC in 4 weeks. Mayra Cooper DNP, MARKETING PROPOSAL COORDINATOR, YARELI documented in this encounter Nursing Notes Luz Maria Abreu - 03/27/2020 9:30 AM CDT Chief Complaint Patient presents with ??? Care 13w 5d, still having some headaches, nausea is better Initial BP 116/80 (BP Location: Right arm, Cuff Size: Adult Large) Wt 100.7 kg (222 lb) LMP 12/22/2019 BMI 39.33 kg/m?? Estimated body mass index is 39.33 kg/m?? as calculated from the following: Height as of 07/15/19: 1.6 m (5' 3). Weight as of this encounter: 100.7 kg (222 lb). BP completed using cuff size: large Questioned patient about current smoking habits. Pt. quit smoking some time ago. The following HM Due: NONE Luz Maria Abreu CMA documented in this encounter Plan of Treatment Not on filedocumented as of this encounter Results (ABNORMAL) US OB > 14 Weeks (05/01/2020 9:40 AM CDT) Anatomical Region Laterality Modality Abdomen/Pelvis Ultrasound Specimen (Source) Anatomical Location Collection Method / Collectio n Time Received Time / Laterality Volume Narrative 05/01/2020 11:40 AM CDT [facility] Obstetrics and Gynecology ?? ULTRASOUND - [...] Not visualized ?? Complete obstetrical ultrasound using re altime transabdominal scanning. Due to position, four chamber hear t and right ventricular outflow tracts are not well seen. No other gross anomalies observed; ??corresponding menstrual and sonographic dates. Maternal uterus appears Normal Maternal ovaries were not visualized. Placenta is posterior and fundal. Amniotic fluid assessment is: Normal. Recommend referral to [facility] for targeted u ltrasound to evaluate anatomy not well seen on this exam. anomalies may be present but not d etected. Dina Germain MD Obstetrics and Gynecology [facility] ? [facility] documented in this encounter Visit Diagnoses Diagnosis care in first trimester - Prima ry care in first trimester documented in this encounter Additional Health Concerns Assessment Noted Time PHQ-9 Depression Total Score: 10 02/02/2020 8:23 AM CD T documented as of this encounter Care Teams Tank Car Reconditioner Relationship Specialty Start Date End Date Blank Lemos MD PCP - General Internal Medicine 04/22/[address] [place] [address] DR [place], [place] [id number] Blank Lemos MD Assigned PCP 04/25/[address] [place] [address] [place] [phone] documented as of this encounter
--- OUTSIDE RECORDS SUMMARY | 2022-04-09 07:19 | XMS_ITS | Encounter Summary ---
:1990 Author Organization [place] Address [facility] [place] [address] Care Team Providers Name Role Phone Blank Lemos MD Primary Care Provider Blank Lemos MD Unavailable Reason for Visit Reason Comments Care New Nurse Telephone Visit Encounter Details Date Type Department Care Team Description 02/07/2020 Office [facility] er for Visit Clinic Dev supervision of normal [address] [place] [facility] [address] first trimester [address] (Primary Dx) [place] [phone] Social History Tobacco Use [...] documented as of this encounter Progress Notes Vandana oSsa RN - 02/07/2020 1:00 PM CDT Chief Complaint Patient presents with ??? Care New Nurse Telephone Visit 6w5d Estimated Date of Delivery: Sep 27, 2020 Initial LMP 12/22/2019 Estimated body mass index is 37.73 kg/m?? as calculated from the following: Height as of 07/15/19: 1.6 m (5' 3). Weight as of 07/15/19: 96.6 kg (213 lb). BP completed using cuff size: NA (Not Taken) Questioned patient about current smoking habits. Pt. quit smoking some time ago. book and folder (containing standard educational hand-outs and brochures)to be given to patient at future appt. Information in folder reviewed. Questions answered. Brochure given on optional screening available to assess chromosomal anomalies. Pt advised to call the clinic if she has any questions or concerns related to her . labs obtained 02/20/20. New visit scheduled on 02/24/20 with Faiza Reyes CNM. 6w5d Lab Results Component Value Date PAP LSIL 09/22/2018 Patient supplied answers from flow sheet for: OB Questionnaire. Past Medical History Diabetes?: No Hypertension : No Heart disease, mitral valve prolapse or rheumatic fever?: No An autoimmune disease such as lupus or rheumatoid arthritis?: No Kidney disease or urinary tract infection?: (!) Yes(UTI's) Epilepsy, seizures or spells?: No Migraine headaches?: (!) Yes A stroke or loss of function or sensation?: No Any other neurological problems?: No Have you ever been treated for depression?: (!) Yes(Bipolar and anxiety) Are you having problems with crying spells or loss of self-esteem?: No Have you ever required psychiatric care?: (!) Yes Have you ever had hepatitis, liver disease or jaundice?: No Have you been treated for blood clots in your veins, deep vein thromosis, inflammation in the veins,thrombosis, phlebitis, pulmonary embolism or varicosities?: No Have you had excessive bleeding after surgery or dental work?: No Do you bleed more than other women after a cut or scratch?: No Do you have a history of anemia?: No Have you ever had thyroid problems or taken thyroid medication?: No Do you have any endocrine problems?: No Have you ever been in a major accident or suffered serious trauma?: No Within the last year, has anyone hit, slapped, kicked or otherwise hurt you?: No In the last year, has anyone forced you to have sex when you didn't want to?: No Past Medical History 2 Have you ever received a blood transfusion?: No Would you refuse a blood transfusion if a doctor judged it to be medically necessary?: No If you answered Yes, would you rather than receive a blood transfusion?: No If you answered Yes, is this for mosque reasons?: No Does anyone in your home smoke?: No Do you use tobacco products?: No Do you drink beer, wine or hard liquor?: No Do you use any of the following: marijuana, speed, cocaine, heroin, hallucinogens or other drugs?: No Is your blood type Rh negative?: No Have you ever had abnormal antibodies in your blood?: No Have you ever had asthma?: No Have you ever had tuberculosis?: No Do you have any allergies to drugs or tpwj-ajs-zpbjovn medications?: (!) Yes(doxycycline) Allergies: Dust Mites, Aspartame, Ethanol, Venlafaxine, Hydrochloride, Sertraline: (!) Yes(dust mites, aspartame) Have you had any breast problems?: No Have you ever breastfed?: No Have you had any gynecological surgical procedures such as cervical conization, a LEEP procedure, laser treatment, cryosurgery of the cervix or a dilation and curettage, etc?: No Have you ever had any other surgical procedures?: (!) Yes(see surgical history) Have you been hospitalized for a nonsurgical reason excluding normal delivery?: No Have you ever had any anesthetic complications?: No Have you ever had an abnormal pap smear?: (!) Yes Past Medical History (Continued) Do you have a history of abnormalities of the uterus?: No Did your mother take DANA or any other hormones when she was with you?: No Did it take you more than a year to become ?: No Have you ever been evaluated or treated for infertility?: No Is there a history of medical problems in your family, which you feel may be important to this ?: No Do you have any other problems we have not asked about which you feel may be important to this ?: No Symptoms since last menstrual period Do you have any of the following symptoms: abdominal pain, blood in stools or urine, chest pain, shortness of breath, coughing or vomiting up blood, your heart racing or skipping beats, nausea and vomiting, pain on urination or vaginal discharge or bleed: (!) Yes(nausea, fatigue, breast tenderness, general scrap worker mping, spotting) Current medications, including wfhg-ayw-lntvvcj medications, you are using? (If not applicable answer none): see med list. weaning off of topamax Will the patient be 35 years old or older at the time of delivery?: No Has the patient, baby's father or anyone in either family had: Thalassemia (Tajik, Macedonian, Mediterranean or background only) and an MCV result less than 80?: (P) No Neural tube defect such as meningomyelocele, spina bifida or anencephaly?: (P) No Congenital heart defect?: (P) No Down's Syndrome?: (P) No Wilber-Sachs disease (Cheondoism, Cajun, Irish-Davidson)?: (P) No Sickle cell disease or trait ()?: (P) No Hemophilia or other inherited problems of blood?: (P) No Muscular dystrophy?: (!) Yes(FOB's uncle has MD) Cystic fibrosis?: (P) No Asher's chorea?: (P) No Mental retardation/autism?: (P) No If yes, was the person tested for fragile X?: (P) No Any other inherited genetic or chromosomal disorder?: (P) No Maternal metabolic disorder (e.g Insulin-dependent diabetes, PKU)?: (P) No A child with defects not listed above?: (P) No Recurrent loss or stillbirth?: (P) No Has the patient had any medications/street drugs/alcohol since her last menstrual period?: (P) No Does the patient or baby's father have any other genetic risks?: (P) No Infection History Do you object to being tested for Hepatitis B?: (P) No Do you object to being tested for HIV?: (P) No Do you feel that you are at high risk for coming in contact with the AIDS virus?: (P) No Have you ever been treated for tuberculosis?: (P) No Have you ever had a positive skin test for tuberculosis?: (P) No Do you live with someone who has tuberculosis?: (P) No Have you ever been exposed to tuberculosis?: (P) No Do you have genital herpes?: (P) No Does your partner have genital herpes?: (P) No Have you had a viral illness since your last period?: (P) No Have you ever had gonorrhea, chlamydia, syphilis, venereal warts, trichomoniasis, pelvic inflammatory disease or any other sexually transmitted disease?: (!) Yes(HR HPV) Do you know if you are a genital group B streptococcus carrier?: (P) No Have you had chicken pox/varicella?: (!) (P) Yes Have you been vaccinated against chicken Pox?: No Have you had any other infectious diseases?: (P) No Vandana Sosa RN documented in this encounter Plan of Treatment Not on filedocumented as of this encounter Results ABO/Rh type and screen (02/20/2020 9:09 AM CDT) [facility] Method Time Signature ABO O 02/20/2020 [place] 5:05 PM [facility] RH(D) Pos [facility] Antibody Neg 02/20/2020 [place] Screen 5:05 PM [facility] Test Valid [place] 02/20/2020 [facility] Only [facility] 5:02 PM [facility] Specimen 02/23/2020 02/20/2020 [place] Expires 5:02 PM [facility] Specimen Anatomical Collection Method Collection Time Receive d Time (Source) Location / / Volume Laterality Blood specimen 02/20/2020 9:09 AM 020 9:10 (specimen) CDT AM CDT Faiza Reyes CNM LAB - BLOOD BANK TEST ORDER Performing Organization Address City/State/ZIP Code Phon e Number [facility] [address] [place], [place] [address] [facility] [address] [place], [place] [address] [facility] [phone] Urine Culture Aerobic Bacterial (02/20/2020 9:08 AM CDT) [facility] Method Time Signature Specimen Midstream INFECTIOUS Description Urine [facility] Culture Micro <10,000 colonies/mL 02/21/2020 [facility] TI[facility] mixed urogenital andre 1:24 PM CDT [facility] Specimen (Source) Anatomical Collection Method Collection Time Re ceived Time Location / / Volume Laterality Examination of 02/20/2020 9:08 02/20/2020 9:13 midstream urine AM CDT AM CDT specimen (procedure) Faiza Reyes CNM LAB - MICRO GENERAL ORDERABL ES Performing Organization Address City/State/ZIP Code Phon e Number INFECTIOUS DISEASES [address] [place] [address] DIAGNOSTIC LABORATORY, [facility] INFECTIOUS DISEASES [address] [place] [address], A DIAGNOSTIC LABORATORY Treponema Abs w Reflex to RPR and Titer (02/20/2020 9:08 AM CDT) [facility] Method Time Signature Treponema Nonreactive NR^Nonrea 02/21/2020 [facility] ctive 9:37 AM CDT [facility] Comment: Methodology Change: Test performed on DiaSorin Liaison XL by Treponema pallidum Total Antibodies Assay as of . Specimen Anatomical Collection Method Collection Time Receive d Time (Source) Location / / Volume Laterality Blood specimen 02/20/2020 9:08 AM 020 9:13 (specimen) CDT AM CDT Faiza Reyes CNM LAB - BLOOD ORDERABLES Performing Organization Address City/[facility]/ZIP Code Phon e Number [address] [address] [facility] Rubella Antibody IgG Quantitative (02/20/2020 9:08 AM CDT) [facility] Signature Rubella Antibody 20 IU/mL 02/21/2020 [place] [facility] IgG Quantitative 11:12 AM CDT [facility] Comment: Positive. ??Suggests previous exposure o r immunization and probable immunity Reference Range: ??Unvaccinated Negative 0-7 IU/mL Vaccinated or previous exposure Positive 10 IU/ml or greater Specimen Anatomical Collection Method Collection Time Receive d Time (Source) Location / / Volume Laterality Blood specimen 02/20/2020 9:08 AM 020 9:13 (specimen) CDT AM CDT KellieJennifer FARMER LAB - BLOOD ORDERABLES Performing Organization Address City/[facility]/ZIP Code Phon e Number [address] HIV Antigen Antibody Combo (02/20/2020 9:08 AM CDT) [facility] Method Time Signature HIV Antigen Nonreactive NR^Nonrea 02/21/2020 [place] [facility] Antibody ctive 9:57 AM CDT [facility] Comment: HIV-1 p24 Ag & HIV-1/HIV-2 Ab N ot Detected Specimen Anatomical Collection Method Collection Time Receive d Time (Source) Location / / Volume Laterality Blood specimen 02/20/2020 9:08 AM 020 9:13 (specimen) CDT AM CDT KellieJennifer FARMER LAB - BLOOD ORDERABLES Performing Organization Address City/[facility]/ZIP Code Phon e Number [address] (ABNORMAL) CBC with platelets (02/20/2020 9:08 AM CDT) [facility] Method Time Signature WBC 11.3 (H) 4.0 - 11.0 02/20/2020 [facility] 10e9/L 10:39 AM CDT [facility] RBC Count 4.20 3.8 - 5.2 02/20/2020 [facility] 10e12/L 10:39 AM CDT [facility] Hemoglobin 12.9 11.7 - 02/20/2020 [facility] 15.7 g/dL 10:39 AM CDT [facility] Hematocrit 39.7 35.0 - 02/20/2020 [facility] 47.0 % 10:39 AM CDT [facility] MCV 95 78 - 100 02/20/2020 [place] fl 10:39 AM CDT [facility] MCH 30.7 26.5 - 02/20/2020 [place] 33.0 pg 10:39 AM CDT [facility] MCHC 32.5 31.5 - 02/20/2020 [place] 36.5 g/dL 10:39 AM CDT [facility] RDW 13.4 10.0 - 02/20/2020 [place] 15.0 % 10:39 AM CDT [facility] Platelet Count 350 150 - 450 02/20/2020 [place] 10e9/L 10:39 AM CDT [facility] Specimen Anatomical Collection Method Collection Time Receive d Time (Source) Location / / Volume Laterality Blood specimen 02/20/2020 9:08 AM 020 9:13 (specimen) CDT AM CDT Faiza Reyes CNM LAB - BLOOD ORDERABLES Performing Organization Address City/[facility]/ZIP Code Phon e Number [facility] [address] [place], [place] [address] [address] Hepatitis B surface antigen (02/20/2020 9:08 AM CDT) [facility] gist Method Time Signature Hep B Surface Nonreactive NR^Nonrea 02/21/2020 [facility] ctive 9:57 AM CDT [facility] Specimen Anatomical Collection Method Collection Time Receive d Time (Source) Location / / Volume Laterality Blood specimen 02/20/2020 9:08 AM 020 9:13 (specimen) CDT AM CDT Faiza Reyes CNM LAB - BLOOD ORDERABLES Performing Organization Address City/State/ZIP Code Phon e Number [facility] [address] [place] [address] [facility] documented in this encounter Visit Diagnoses Diagnosis Encounter for supervision of normal firs t in first trimester - Primary Supervision of normal first documented in this encounter Additional Health Concerns Assessment Noted Time PHQ-9 Depression Total Score: 10 02/02/2020 8:23 AM CD T documented as of this encounter Care Teams Private Equity Associate Relationship Specialty Start Date End Date Blank Lemos MD PCP - General Internal Medicine 04/22/[address] [facility] [place] [address] Blank Lemos MD Assigned PCP 04/25/[address] [facility] [facility] [place] [id number] documented as of this encounter
--- OUTSIDE RECORDS SUMMARY | 2022-04-09 07:19 | XMS_ITS | Encounter Summary ---
:1990 Author Organization [facility] Address [facility] [place] [address] Care Team Providers Name Role Phone Blank Lemos MD Primary Care Provider Blank Lemos MD Unavailable Hardeep Cárdenas Unavailable Unavailable Encounter Details Date Type Department Care Team Description 12/20/2019 Virtual Visit [facility] Nevin Gilman ed anxiety disorder (Primary Dx); Mental Health & [facility] Moderate episode of recurrent major depr essive disorder (H) Addiction [facility] [address] [facility] [address] [place] [address] [address] KISHAN Méndez [id number] (Work) [phone] Social History Tobacco Use Types Packs/Day Years [...] encounter Progress Notes Bessy Gilman LICSW - 12/20/2019 2:00 PM CDT [facility] Primary Care: Integrated Behavioral Health Director Writing Name: Bessy Gilman Credentials: [facility], [facility] PATIENT'S NAME: Rean Turner PREFERRED NAME: Rena PREFERRED PRONOUNS: : 1990 ACCT. NUMBER: [id number] DATE OF SERVICE: 12/20/19 START TIME: 2:00pm END TIME: 2:41pm PREFERRED PHONE: [phone] May we leave a program related message: Yes STANDARD ADULT DIAGNOSTIC ASSESSMENT Telemedicine Visit: The patient's condition can be [...] services. Mode of Communication: Video Conference via [employer] As the provider I attest to compliance with applicable laws and regulations related to telemedicine. Identifying Information: Patient is a 29 year old, . The pronoun use throughout this assessment reflects the patient's chosen pronoun. Patient was referred for an assessment by primary care provider. Patient attended the session alone. Chief Complaint: The reason for seeking services at this time is: Patient reported that therapy is very scary to her and that she had a terrible experience 10 years ago. 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 Patient reported that she is struggling quite a bit with anxiety and wonders if she had a manic episode a couple weeks ago. Work has been very stressful, as she has been off of work due to Covid-19 and now they called yeimi immediately. She reported that her anxiety is so bad that she is unable to leave the house unless her fiance is with her. She has been struggling with sleep, overeating, mood changes, crying more than normal and other symptoms. The problem(s) began 6-9 months ago. Patient has attempted to resolve these concerns in the past through therapy and medication. Does the client have any condition that is currently presenting as a potential to harm themselves orothers (severe withdrawal, serious medical condition, severe emotional/behavioral problem)? No. Proceed with assessment. Social/Family History: Patient reported they grew up in [place], [place] and moved to [place] 7 years ago. They were raised by biological parents who are still . Patient reported that she has one older brother who has a and 4 children. Patient reported that her childhood was good, but looking back she was super anxious as a child. Patient described their current relationships with family of origin as great. The patient describes their cultural background as normal. Cultural influences and impact on patient's life structure, values, norms, and healthcare: none reported. Contextual influences on patient'shealth include: stressful job and Covid-19. These factors will be addressed in the Preliminary Treatment plan. Patient identified their preferred language to be Chinese. Patient reported they does not need the assistance of an data support analyst or other support involved in therapy. Patient reported had no significant delays in developmental tasks. Patient's highest education levelwas some college. Patient identified the following learning problems: none reported. Modifications will not be used to assist communication in therapy. Patient reports they are able to understand written materials. Patient reported the following relationship history: two significant relationships prior to current relationship. Patient's current relationship status is engaged. Patient identified their sexual orientation as heterosexual. Patient reported having zero child(tavares). Patient's current living/housing situation involves staying in own home/apartment. They live with fiance and they report that housing is stable. Patient identified partner, parents and friends as part of their support system. Patient identified the quality of these relationships as stable and meaningful. Patient is currently on furlough and will be unemployed eventually. Patient reports their finances are obtained through employment and partner. Patient does not identify finances as a current stressor. Patient reported that they have not been involved with the legal system. Patient denies being on probation / parole / under the jurisdiction of the court. Patient's Strengths and Limitations: Patient identified the following strengths or resources that will help them succeed in treatment: commitment to health and well being, friends / good social support, family support, insight, intelligence and motivation. Things that may interfere with the patient's success in treatment include: none reported. Personal and Family Medical History: Patient did report a family history of mental health concerns. Patient reports family history includes Unknown/Adopted in her father and mother. Patient reported the following previous diagnoses which include(s): an Anxiety Disorder, a Bipolar Disorder and Depression. Patient reported symptoms began when she was a child, but recently her symptoms began to increase the past 6-9 months. Patient has received mental health services in the past: outpatient therapy and medication. Psychiatric Hospitalizations: None. Patient denies a history of civil commitment. Currently, patient is not receiving other mental health services. These include none. Patient has not had a physical exam to rule out medical causes for current symptoms. Date of last physical exam was within the past year. Client was encouraged to follow up with PCP if symptoms were todevelop. The patient has a [facility] Primary Care Provider, who is named Blank Lemos.. Patient reports no current medical concerns. There are not significant appetite / nutritional concerns / weight changes. Patient does not report a history of head injury / trauma / cognitive impairment. Patient reports current meds as: Outpatient Medications Marked as Taking for the 12/20/19 encounter (Virtual Visit) with Bessy Gilman LICSW Medication Sig ??? escitalopram (LEXAPRO) 20 MG tablet Take 1 tablet (20 mg) by mouth daily ??? loratadine (CLARITIN) 10 MG capsule Take 10 mg by mouth daily ??? SUMAtriptan (IMITREX) 25 MG tablet TAKE 1 TO 2 TABLETS BY MOUTH AT ONSET OF MIGRAINE. MAY REPEATIN 2 HOURS. MAX OF 8 TABLETS PER 24 HOURS. ??? topiramate (TOPAMAX) 100 MG tablet TAKE 1 TABLET(100 MG) BY MOUTH TWICE DAILY ??? traZODone (DESYREL) 50 MG tablet Take 1 tablet (50 mg) by mouth At Bedtime ??? zolpidem (AMBIEN) 5 MG tablet Take 1 tablet (5 mg) by mouth nightly as needed for sleep Medication Adherence: Patient reports taking prescribed medications as prescribed. Patient Allergies: Allergies Allergen Reactions ??? Doxycycline Other (See Comments) and Nausea and Vomiting Medical History: Past Medical History: Diagnosis Date ??? Abnormal Pap smear of cervix 09/22/2018 See problem list ??? Bipolar disorder (H) ??? Cervical high risk HPV (human papillomavirus) test positive 09/22/2018 ??? Depression with anxiety ??? Generalized anxiety disorder Current Mental Status Exam: Appearance: Unable to assess due to phone visit Eye Contact: Unable to assess due to phone visit Psychomotor: Unable to assess due to phone visit Gait / station: Unable to assess due to phone visit Attitude / Demeanor: Cooperative Friendly Pleasant Guarded Speech Rate / Production: Normal/ Responsive Volume: Normal volume Language: intact Mood: Anxious Sad Affect: Appropriate Thought Content: Clear Thought Process: Coherent Logical Associations: No loosening of associations Insight: Good Judgment: Intact Orientation: Person Place Time Situation All Attention/concentration: Good Rating Scales: PHQ9: PHQ-9 SCORE 02/06/2018 09/22/2018 12/08/2019 PHQ-9 Total Score - - - PHQ-9 Total Score MyChart 7 (Mild depression) - - PHQ-9 Total Score 7 4 15 ; GAD7: GABRIEL-7 SCORE 08/17/2017 09/22/2018 12/08/2019 Total Score 13 3 19 CGI: First:Considering your total clinical experience with this particular patient population, how severe are the patient's symptoms at this time?: 5 (12/21/2019 3:06 PM) ; Most recentNo data recorded Substance Use: Patient did not report a family history of substance use concerns; see medical history section for details. Patient has not received chemical dependency treatment in the past. Patient has not ever beento detox. Patient is not currently receiving any chemical dependency treatment. Patient reported the followingproblems as a result of their substance use: NA. Patient denies using alcohol. Patient denies using tobacco. Patient denies using marijuana. Patient reports using caffeine 2 times per day and drinks 1 at a time. Patient reports using/abusing the following substance(s). Patient reported no other substance use. CAGE- AID: No flowsheet data found. Unable to gather due to Covid-19 Substance Use: No symptoms Based on the clinical interview there are not indications of drug or alcohol abuse. did notSignificant Losses / Trauma / Abuse / Neglect Issues: Patient did not serve in the . There are indications or report of significant loss, trauma, abuse or neglect issues related to: none reported. Concerns for possible neglect are not present. Safety Assessment: Current Safety Concerns: Norman Suicide Severity Rating Scale (Lifetime/Recent) Norman Suicide Severity Rating (Lifetime/Recent) 12/21/2019 12/21/2019 1. Wish to be (Lifetime) Yes Yes Wish to be Description (Lifetime) - Patient reported that she has had thoughts throughout her life where she wishes to be , but no intent or plan. 1. Wish to be (Recent) - No 2. Non-Specific Active Suicidal Thoughts (Lifetime) - No 2. Non-Specific Active Suicidal Thoughts (Recent) - No 3. Active Suicidal Ideation with any Methods (Not Plan) Without Intent to Act (Lifetime) - No 3. Active Sucidal Ideation with any Methods (Not Plan) Without Intent to Act (Recent) - No 4. Active Suicidal Ideation with Some Intent to Act, Without Specific Plan (Lifetime) - No 4. Active Suicidal Ideation with Some Intent to Act, Without Specific Plan (Recent) - No 5. Active Suicidal Ideation with Specific Plan and Intent (Lifetime) - No 5. Active Suicidal Ideation with Specific Plan and Intent (Recent) - No Most Severe Ideation Rating (Lifetime) - 1 Most Severe Ideation Description (Lifetime) - Patient reported that the last time she wished to be , but it did not lead to any other thoughts. Frequency (Lifetime) - 1 Duration (Lifetime) - 1 Controllability (Lifetime) - 2 Protective Factors (Lifetime) - 2 Reasons for Ideation (Lifetime) - 5 Most Severe Ideation Rating (Past Month) - NA Frequency (Past Month) - NA Duration (Past Month) - NA Controllability (Past Month) - NA Protective Factors (Past Month) - NA Reasons for Ideation (Past Month) - NA Actual Attempt (Lifetime) - No Actual Attempt (Past 3 Months) - No Has subject engaged in non-suicidal self-injurious behavior? (Lifetime) - No Has subject engaged in non-suicidal self-injurious behavior? (Past 3 Months) - No Interrupted Attempts (Lifetime) - No Interrupted Attempts (Past 3 Months) - No Aborted or Self-Interrupted Attempt (Lifetime) - No Aborted or Self-Interrupted Attempt (Past 3 Months) - No Preparatory Acts or Behavior (Lifetime) - No Preparatory Acts or Behavior (Past 3 Months) - No Most Recent Attempt Actual Lethality Code - NA Most Lethal Attempt Actual Lethality Code - NA Initial/First Attempt Actual Lethality Code - NA Patient denies current homicidal ideation and behaviors. Patient denies current self-injurious ideation and behaviors. Patient denied risk behaviors associated with substance use. Patient denies any high risk behaviors associated with mental health symptoms. Patient reports the following current concerns for their personal safety: None. Patient reports there are firearms in the house. NA. History of Safety Concerns: Patient denied a history of homicidal ideation. Patient denied a history of personal safety concerns. Patient denied a history of assaultive behaviors. Patient denied a history of assaultive behaviors. Patient denied a history of risk behaviors associated with substance use. Patient denies any history of high risk behaviors associated with mental health symptoms. Patient reports the following protective factors: positive relationships positive social network andpositive family connections, forward/future oriented thinking, dedication to family/friends, safe and stable environment, abstinence from substances, adherence with prescribed medication, living with other people, effective problem-solving skills, committment to well-being, sense of meaning, positive social skills, financial stability and strong sense of self-worth/esteem Risk Plan: See Preliminary Treatment Plan for Safety and Risk Management Plan Review of Symptoms per patient report: Depression: Change in sleep, Lack of interest, Excessive or inappropriate guilt, Change in energy level, Difficulties concentrating, Change in appetite, Feelings of hopelessness, Low self-worth, Ruminations, Irritability, Feeling sad, down, or depressed, Withdrawn, Poor hygeine, Frequent crying and Anger outbursts Jerri: Elevated mood, Increased activity, Restlessness, Distractibility and Impulsiveness Patient reported that this happens not frequently and will last for a short amount of time Psychosis: No Symptoms Anxiety: Nervousness, Physical complaints, such as headaches, stomachaches, muscle tension, Social anxiety, Fears/phobias , Sleep disturbance, Ruminations, Poor concentration, Irritability and Anger outbursts Panic: Palpitations, Tremors, Shortness of breath and Sense of impending doom Post Traumatic Stress Disorder: No Symptoms Eating Disorder: No Symptoms ADD / ADHD: No symptoms Conduct Disorder: No symptoms Autism Spectrum Disorder: No symptoms Obsessive Compulsive Disorder: Obsessions and Patient reported that she has the tendency with a few things needing them to be a certain way otherwise will feel physically ill Patient reports the following compulsive behaviors and treatment history: No Symptoms. Diagnostic Criteria: A. Excessive anxiety and worry about a number of events or activities (such as work or school performance). B. The person finds it difficult to control the worry. C. Select 3 or more symptoms (required for diagnosis). Only one item is required in children. - Restlessness or feeling keyed up or on edge. - Being easily fatigued. - Difficulty concentrating or mind going blank. - Irritability. - Muscle tension. - Sleep disturbance (difficulty falling or staying asleep, or restless unsatisfying sleep). D. The focus of the anxiety and worry is not confined to features of an Liscomb I disorder. E. The anxiety, worry, or physical symptoms cause clinically significant distress or impairment in social, occupational, or other important areas of functioning. F. The disturbance is not due to the direct physiological effects of a substance (e.g., a drug of abuse, a medication) or a general medical condition (e.g., hyperthyroidism) and does not occur exclusively during a Mood Disorder, a Psychotic Disorder, or a Pervasive Developmental Disorder. - The aformentioned symptoms began 6-9 month(s) ago and occurs 7 days per week and is experienced as moderate. A) Recurrent episode(s) - symptoms have been present during the same 2-week period and represent a change from previous functioning 5 or more symptoms (required for diagnosis) - Depressed mood. Note: In children and adolescents, can be irritable mood. - Diminished interest or pleasure in all, or almost all, activities. - Increased sleep. - Fatigue or loss of energy. - Diminished ability to think or concentrate, or indecisiveness. B) The symptoms cause clinically significant distress or impairment in social, occupational, or other important areas of functioning C) The episode is not attributable to the physiological effects of a substance or to another medicalcondition D) The occurence of major depressive episode is not better explained by other thought / psychotic disorders E) There has never been a manic episode or hypomanic episode Functional Status: Patient reports the following functional impairments: health maintenance, management of the household and or completion of tasks, organization, relationship(s), self-care, social interactions and work / vocational responsibilities. WHODAS: No flowsheet data found. Unable to gather due to Covid-19 Clinical Summary: 1. Reason for assessment: increase in mental health symptoms. 2. Psychosocial, Cultural and Contextual Factors: Covid-19, work stress. 3. As evidenced by self report and criteria, client meets the following DSM5 Diagnoses: (Sustained by DSM5 Criteria Listed Above) 296.32 (F33.1) Major Depressive Disorder, Recurrent Episode, Moderate _ 300.02 (F41.1) Generalized Anxiety Disorder. 4. R/O: 296.41 Bipolar I Disorder Current or Most Recent Episode Manic, Mild 300.3 (F42) Obsessive Compulsive Disorder 5. Prognosis: Return to Normal Functioning and Expect Improvement. 6. Likely consequences of symptoms if not treated: worsened symptoms. 7. Client strengths include: caring, committed to sobriety, creative, educated, empathetic, employed, good listener, insightful, intelligent, motivated, open to learning, open to suggestions / feedback, support of family, friends and providers, supportive and wants to learn . Recommendations: 1. Plan for Safety and Risk Management:Recommended that patient call 911 or go to the local ED should there be a change in any of these risk factors.. Report to child / adult protection services was NA. 2. Patient's identified mental health concerns with a cultural influence will be addressed by agreedupon treatment plan. 3. Initial Treatment will focus on: Depressed Mood - decrease in depressive symptoms Anxiety - decrease in anxious symptoms Mood Instability - increase in mood stability. 4. Resources/Service Plan: Coater Operator Insulation Board services are not indicated. Modifications to assist communication are not indicated. Additional disability accommodations are not indicated. 5. Collaboration: Collaboration / coordination of treatment will be initiated with the following support professionals: primary care physician. 6. Referrals: The following referral(s) will be initiated: none at this time. A Release of Information has been obtained for the following: NA. 7. MARK: MARK: Discussed the general effects of drugs and alcohol on health and well-being. Provider gave patient printed information about the effects of chemical use on their health and well being. 8. Records were not available for review at time of assessment. Information in this assessment was obtained from the medical record and provided by patient who is agood historian. Patient will have open access to their mental health medical record. Eval type: Mental Health Staff Name/Credentials: ANTONIO Menjivar, [facility] December 20, 2019 documented in this encounter Plan of Treatment Not on filedocumented as of this encounter Visit Diagnoses Diagnosis Generalized anxiety disorder - Primary Moderate episode of recurrent major depr essive disorder (H) documented in this encounter Additional Health Concerns Assessment Noted Time PHQ-9 Depression Total Score: 15 12/08/2019 10:02 AM C DT documented as of this encounter Care Teams [place] Worker Relationship Specialty Start Date End Date Blank Lemos, PCP - General Internal Medicine 04/22/[address] [facility] DR MÉNDEZ, KISHAN [phone] Blank Lemos, Assigned PCP [facility]/[address] [facility] KISHAN RENO [phone] Hardeep Cárdenas Personal Advocate & 06/17/1901/30 Liaison ([facility]) documented as of this encounter
--- OUTSIDE RECORDS SUMMARY | 2022-04-09 07:19 | XMS_ITS | Encounter Summary ---
:1990 Author Organization [place] Address [address] [facility] [place] [address] Care Team Providers Name Role Phone Blank Lemos MD Primary Care Provider Blank Lemos MD Unavailable Reason for Visit Reason Comments Colposcopy 15 weeks Encounter Details Date Type Department Care Team Description 04/09/2020 Office Visit [facility] Sharita Frias wi th positive [facility] MD Blu high risk HPV cervical [place] [id number] [address] [place], [place] [address] [address] [place], [place] (Work) [address] [phone] Social History Tobacco Use Types Packs/Day Years [...] of school you have High school gra ciscoumm 02/07/2020 completed or the highest degree [...] Sign Reading Time Taken Comments Blood Pressure 120/80 04/09/2020 1:36 PM CDT Pulse - - Temperature - - Respiratory Rate - - Oxygen Saturation - - Inhaled Oxygen Concentration - - Weight 102.5 kg (226 lb) 04/09/2020 1:36 PM CDT Height 160 cm (5' 3) 04/09/2020 1:36 PM CDT Body Mass Index 40.03 04/09/2020 1:36 PM CDT documented in this encounter Progress Sharita Kincaid MD - 04/09/2020 1:30 PM CDT Colposcopy Procedure Note 04/09/2020 INDICATIONS: Is a test required: No. Was a consent obtained? Yes Rena Turner, is a 30 year old at 15w4d female with a history of abnormal pap smear, see history below. Here today for colposcopy. Discussed indication, risks of infection and bleeding. Discussed role of HPV in the development of abnormal pap smears and cervical cancer. Discussed immune system support (healthy diet, adequate sleep, non smoking) as methods to help clear the HPV. History of abnormal pap smears: 09/22/18 [facility]IL, +HR HPV, not 16/18. Plan colp 10/07/18 [place]- No lesions seen, no Bx taken. Plan 1 yr co-test 02/24/20 ASCUS pap, + HR HPV (not 16 or 18). Pt about 10 weeks . Plan colp without biopsies due by 05/26/20. 03/05/20 CCT tracking. 03/06/20 pt notified 04/09/20 colp appt PROCEDURE: Cervix is stained with acetic acid and viewed colposcopically. Squamocolumnar junction is visualized in its entirity. acetowhite lesion(s) noted at 2 to 6 o'clock, area somewhat friable due to , bleeds slightly when probed with rhodes swab. Biopsy done: No. - due to Endocervical curettage: Not Done. - due to BSUS: active FM with FHT 150s post procedure POST PROCEDURE: IMPRESSION: On colposcopic examination today there is no sign of obvious carcinoma, but there was acetowhite staining consistent with HPV changes or CIN1/2. PLAN : Repeat pap with colposcopy as indicated. She tolerated the procedure well. There were no complications. Patient was discharged in stable condition. Patient advised to call the clinic if excessive bleeding, pelvic pain, or fever. Sharita Frias MD documented in this encounter Nursing Notes Nara Singh - 04/09/2020 1:30 PM CDT Chief Complaint Patient presents with ??? Colposcopy 15 weeks Initial BP 120/80 (BP Location: Left arm, Patient Position: Chair, Cuff Size: Adult Regular) Ht 1.6 m (5' 3) Wt 102.5 kg (226 lb) LMP 12/22/2019 No BMI 40.03 kg/m?? Estimated body mass index is 40.03 kg/m?? as calculated from the following: Height as of this encounter: 1.6 m (5' 3). Weight as of this encounter: 102.5 kg (226 lb). BP completed using cuff size: regular Questioned patient about current smoking habits. Pt. has never smoked. 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
--- OUTSIDE RECORDS SUMMARY | 2022-04-09 07:19 | XMS_ITS | Encounter Summary ---
:1990 Author Organization [place] Address [address] [place] [address] Care Team Providers Name Role Phone Blank Lemos MD Primary Care Provider Blank Lemos MD Unavailable Encounter Details Date Type Department Care Team Description 02/01/2020 Travel Social History Tobacco Use Types Packs/Day [...] documented as of this encounter Care Teams Passenger Interline Clerk Relationship Specialty Start Date End Date Blank Lemos MD PCP - General Internal Medicine 04/22/[address] [place] [address] [place] [phone] Blank Lemos MD Assigned PCP 04/25/[address] [place] [address] [place] [phone] documented as of this encounter
--- OUTSIDE RECORDS SUMMARY | 2022-04-09 07:19 | XMS_ITS | Encounter Summary ---
:1990 Author Organization [place] Address [address] [place] [address] Care Team Providers Name Role Phone Blank Lemos MD Primary Care Provider Blank Lemos MD Unavailable Encounter Details Date Type Department Care Team Description 02/07/2020 Travel Social History Tobacco Use Types Packs/Day [...] documented as of this encounter Care Teams Engineering Leader Relationship Specialty Start Date End Date Blank Lemos MD PCP - General Internal Medicine 04/22/[address] [place] [address] [place] [phone] Blank Lemos MD Assigned PCP 04/25/[address] [place] [address] [place] [phone] documented as of this encounter
--- OUTSIDE RECORDS SUMMARY | 2022-04-09 07:19 | XMS_ITS | Encounter Summary ---
:1990 Author Organization [place] Address [facility] [place] [address] Care Team Providers Name Role Phone Blank Lemos MD Primary Care Provider Blank Lemos MD Unavailable Encounter Details Date Type Department Care Team Description 02/20/2020 Orders Only [facility] y of normal first [address] [place] [address] Social History Tobacco Use Types Packs/Day Years [...] Name Priority Date/Time Associated Diagnosis Comme nts ABO/RH TYPE AND Routine 02/20/2020 9:09 AM Encounter for Resul ts for this SCREEN CDT supervision of procedure are in normal first the results in first section. trimester RUBELLA ANTIBODY Routine 02/20/2020 9:08 AM Encounter for Resu lts for this IGG CDT supervision of procedure are in normal first the results in first section. trimester HIV ANTIGEN Routine 02/20/2020 9:08 AM Encounter for Results for this ANTIBODY COMBO CDT supervision of procedure a re in normal first the results in first section. trimester TREPONEMA ABS W Routine 02/20/2020 9:08 AM Encounter for Resul ts for this REFLEX TO RPR AND CDT supervision of procedur e are in TITER normal first the results in first section. trimester HEPATITIS B SURFACE Routine 02/20/2020 9:08 AM Encounter for R esults for this ANTIGEN CDT supervision of procedure are in normal first the results in first section. trimester URINE CULTURE Routine 02/20/2020 9:08 AM Encounter for Results for this CDT supervision of procedure are in normal first the results in first section. trimester CBC WITH PLATELETS Routine 02/20/2020 9:08 AM Encounter for Re sults for this CDT supervision of procedure are in normal first the results in first section. trimester documented in this encounter Results ABO/Rh type and screen (02/20/2020 9:09 AM CDT) [facility] Method Time Signature ABO O 02/20/2020 [place] 5:05 PM T [facility] RH(D) Pos [facility] Antibody Neg 02/20/2020 [place] Screen 5:05 PM T [facility] Test Valid [place] 02/20/2020 [facility] Only [facility] 5:02 PM T [facility] Specimen 02/23/2020 02/20/2020 [facility] Expires 5:02 PM CDT [facility] Specimen Anatomical Collection Method Collection Time Receive d Time (Source) Location / / Volume Laterality Blood specimen 02/20/2020 9:09 AM 020 9:10 (specimen) CDT AM CDT [facility] - BLOOD BANK TEST ORDER Performing Organization Address City/[facility]/ZIP Code Phon e Number [facility] [address] [place], [place] [address] [facility] [address] [place], [place] [address] [facility] [phone] Hepatitis B surface antigen (02/20/2020 9:08 AM CDT) [facility] Method Time Signature Hep B Surface Nonreactive NR^Nonrea 02/21/2020 [facility] 9:57 AM CDT [facility] Specimen Anatomical Collection Method Collection Time Receive d Time (Source) Location / / Volume Laterality Blood specimen 02/20/2020 9:08 AM 020 9:13 (specimen) CDT AM CDT [facility] - BLOOD ORDERABLES Performing Organization Address City/State/ZIP Code Phon e Number [phone] [place] [address] (ABNORMAL) CBC with platelets (02/20/2020 9:08 AM CDT) [facility] Method Time Signature WBC 11.3 (H) 4.0 - 11.0 02/20/2020 [facility] 10e9/L 10:39 AM CDT [facility] RBC Count 4.20 3.8 - 5.2 02/20/2020 [facility] 10e12/L 10:39 AM CDT [facility] Hemoglobin 12.9 11.7 - 02/20/2020 [facility] 15.7 g/dL 10:39 AM CDT [facility] Hematocrit 39.7 35.0 - 02/20/2020 [facility] 47.0 % 10:39 AM CDT [facility] MCV 95 78 - 100 02/20/2020 [facility] fl 10:39 AM CDT [facility] MCH 30.7 26.5 - 02/20/2020 [facility] 33.0 pg 10:39 AM CDT [facility] MCHC 32.5 31.5 - 02/20/2020 [place] 36.5 g/dL 10:39 AM CDT [facility] RDW 13.4 10.0 - 02/20/2020 [place] 15.0 % 10:39 AM CDT [facility] Platelet Count 350 150 - 450 02/20/2020 [place] 10e9/L 10:39 AM CDT [facility] Specimen Anatomical Collection Method Collection Time Receive d Time (Source) Location / / Volume Laterality Blood specimen 02/20/2020 9:08 AM 020 9:13 (specimen) CDT AM CDT [facility] - BLOOD ORDERABLES Performing Organization Address City/State/ZIP Code Phon e Number [facility] [address] [place], [place] [address] [address] HIV Antigen Antibody Combo (02/20/2020 9:08 AM CDT) [facility] Method Time Signature HIV Antigen Nonreactive NR^Nonrea 02/21/2020 [facility] Antibody ctive 9:57 AM CDT [facility] Comment: HIV-1 p24 Ag & HIV-1/HIV-2 Ab N ot Detected Specimen Anatomical Collection Method Collection Time Receive d Time (Source) Location / / Volume Laterality Blood specimen 02/20/2020 9:08 AM 020 9:13 (specimen) CDT AM CDT [facility] - BLOOD ORDERABLES Performing Organization Address City/State/ZIP Code Phon e Number [facility] [address] [place] [address] [facility] Rubella Antibody IgG Quantitative (02/20/2020 9:08 AM CDT) Analysis Performed At [facility] logist Time Signature Rubella Antibody 20 IU/mL 02/21/2020 [facility] IgG Quantitative 11:12 AM CDT [facility] Comment: Positive. ??Suggests previous exposure o r immunization and probable immunity Reference Range: ??Unvaccinated Negative 0-7 IU/mL Vaccinated or previous exposure Positive 10 IU/ml or greater Specimen Anatomical Collection Method Collection Time Receive d Time (Source) Location / / Volume Laterality Blood specimen 02/20/2020 9:08 AM 020 9:13 (specimen) CDT AM CDT [facility] - BLOOD ORDERABLES Performing Organization Address City/[facility]/ZIP Code Phon e Number [address] Treponema Abs w Reflex to RPR and Titer (02/20/2020 9:08 AM CDT) [facility] Method Time Signature Treponema Nonreactive NR^Nonrea 02/21/2020 [facility] Antibodies ctive 9:37 AM CDT [facility] Comment: Methodology Change: Test performed on DiaSorin Liaison XL by Treponema pallidum Total Antibodies Assay as of . Specimen Anatomical Collection Method Collection Time Receive d Time (Source) Location / / Volume Laterality Blood specimen 02/20/2020 9:08 AM 020 9:13 (specimen) CDT AM CDT [facility] - BLOOD ORDERABLES Performing Organization Address City/[facility]/ZIP Code Phon e Number [address] Urine Culture Aerobic Bacterial (02/20/2020 9:08 AM CDT) [facility] gist Method Time Signature Specimen Midstream INFECTIOUS Description Urine [facility] Culture Micro <10,000 colonies/mL 02/21/2020 [facility] mixed urogenital andre 1:24 PM CDT [facility] Specimen (Source) Anatomical Collection Method Collection Time Re ceived Time Location / / Volume Laterality Examination of 02/20/2020 9:08 02/20/2020 9:13 midstream urine AM CDT AM CDT specimen (procedure) [facility] - MICRO GENERAL ORDERABL ES Performing Organization Address City/[facility]/ZIP Code Phon e Number INFECTIOUS DISEASES [address] [place] [address] DIAGNOSTIC LABORATORY, [facility] INFECTIOUS DISEASES [address] [place] [address], [place] [facility] documented in this encounter Visit Diagnoses Diagnosis Encounter for supervision of normal firs t in first trimester Supervision of normal first documented in this encounter Additional Health Concerns Assessment Noted Time PHQ-9 Depression Total Score: 10 02/02/2020 8:23 AM CD T documented as of this encounter Care Teams Family Dentist Relationship Specialty Start Date End Date Blank Lemos MD PCP - General Internal Medicine 04/22/18 [address] [place], [place] [address] Blank Lemos MD Assigned PCP 04/25/[address] [place] [address] [place] [phone] documented as of this encounter
--- OUTSIDE RECORDS SUMMARY | 2022-04-09 07:20 | XMS_ITS | Encounter Summary ---
:1990 Author Organization [place] Address [address] [facility] [place] [address] Care Team Providers Name Role Phone Blank Lemos MD Primary Care Provider Blank Lemos MD Unavailable Hardeep Cárdenas Unavailable Unavailable Reason for Visit Reason Comments Medication Refill escitalopram (LEXAPRO) 20 MG tablet Encounter Details Date Type Department Care Team Description 10/28/2019 Refill [facility] Blank Lemos, [place] dication Refill Clinic Dev [place] (escitalopram (LEXAPRO) [address] [place] [address] [facility] 20 MG tablet ) [facility] [address] [place] [address] [place] [address] [phone] Social History Tobacco Use Types Packs/Day Years Used Date Current Every Day Smoker Cigarettes 0.25 8 Smokeless Tobacco: Never Used Alcohol Use Standard [...] on file documented as of this encounter Miscellaneous Notes Telephone Encounter - Rosalie Field, RN - 10/28/2019 12:32 PM CDT Prescription refilled x 1 per [facility] Refill Protocol. Next 5 appointments (look out 90 days) December 21, 2019 8:30 AM CDT (Arrive by 8:05 AM) Adult [facility] with [facility] [address] [place] [address] [place] [phone] documented in this encounter Plan of Treatment Not on filedocumented as of this encounter Visit Diagnoses Diagnosis Generalized anxiety disorder Bipolar I disorder (H) Bipolar I disorder, most recent episode (or current) unspecified documented in this encounter Additional Health Concerns Assessment Noted Time PHQ-9 Depression Total Score: 4 09/22/2018 3:08 PM [facility] [employer] documented as of this encounter Care Teams Biomedical Technician Relationship Specialty Start Date End Date Blank Lemos, PCP - General Internal Medicine 04/22/[address] [place] [address] [place] [phone] Blank Lemos, Assigned PCP 04/25/[address] [place] [address] [place] [phone] Hardeep Cárdenas Personal Advocate & 06/17/[birth year]01/30 Liaison (PAL) documented as of this encounter
--- OUTSIDE RECORDS SUMMARY | 2022-04-09 07:20 | XMS_ITS | Encounter Summary ---
:1990 Author Organization [place] Address [facility] [place] [address] Care Team Providers Name Role Phone Blank Lemos MD Primary Care Provider Blank Lemos MD Unavailable Blank Lemos MD Unavailable Reason for Visit Reason Onset Date Comments Results 04/26/2018 Re: urine culture Encounter Details Date Type Department Care Team Description 04/26/2018 Telephone [facility] Blank Lemos Results ( Re: urine Clinic Dev Camp MD culture) [address] [place] [address] [facility] [address] [place] [address] [place] [address] [phone] Social History Tobacco Use Types Packs/Day Years [...] this encounter Miscellaneous Notes Telephone Encounter - Ana Maria Daniels MA - 04/26/2018 2:22 PM CDT Called and spoke with patient. Verbalized understanding of instructions. Ana Maria Daniels MA 2:23 PM 04/26/2018 Telephone Encounter - Blank Lemos MD - 04/26/2018 2:01 PM CDT Looks like urine did not get sent for culture. If she is still having symptoms I will switch to a 3 day course of Cipro - sent to pharmacy. If still not helping after this she should return for further evaluation. Blank Lemos MD Internal Medicine/Pediatrics [facility] Telephone Encounter - Anastasia Dickey - 04/26/2018 1:43 PM CDT Pt called requesting urine culture results. She was seen on 04/22/18 for UTI. She was informed to call back on Thursday for results. She is still experiencing pain with urination. She is on Nitrofurantoinat this time. Please advise. Anastasia Dickey RN documented in this encounter Plan of Treatment Not on filedocumented as of this encounter Visit Diagnoses Diagnosis Acute cystitis without hematuria - Prima ry Acute cystitis documented in this encounter Additional Health Concerns Assessment Noted Time PHQ-9 Depression Total Score: 7 02/07/2018 7:00 AM CDT documented as of this encounter Care Teams Children'S Librarian Relationship Specialty Start Date End Date Blank Lemos MD PCP - General Internal Medicine 04/22/[address] [place] [address] [place] [phone] Blank Lemos MD PCP - Assigned PCP 04/25/18 10/12/[address] [place] [address] [place] [phone] Blank Lemos MD Assigned PCP 04/25/[address] [place] [address] [place] R[place] [phone] documented as of this encounter
--- OUTSIDE RECORDS SUMMARY | 2022-04-09 07:20 | XMS_ITS | Encounter Summary ---
:1990 Author Organization [place] Address [facility] [place] [address] Care Team Providers Name Role Phone Blank Lemos MD Primary Care Provider Blank Lemos MD Unavailable Reason for Visit Reason Comments Medication Refill escitalopram (LEXAPRO) 20 MG tablet Encounter Details Date Type Department Care Team Description 04/29/2019 Refill [facility] Blank [place]os, [place] dication Refill Clinic Dev [place] (escitalopram (LEXAPRO) [address] [place] [address] [facility] 20 MG tablet) [facility] [address] [place] [address] [place] [address] [phone] Social History Tobacco Use Types Packs/Day Years [...] this encounter Miscellaneous Notes Telephone Encounter - Brigido Bennett RN - 05/02/2019 9:03 AM CDT Prescription approved per [facility] Refill Protocol. Brigido Bennett RN, BSN Telephone Encounter - Hardeep Coronado - 04/29/2019 2:33 PM CDT Requested Prescriptions Pending Prescriptions Disp Refills ??? escitalopram (LEXAPRO) 20 MG tablet [Pharmacy Med Name: ESCITALOPRAM 20MG TABLETS] Last Written Prescription Date: 09/22/2018 Last Fill Quantity: 90 tablet, # refills: 1 Last Office Visit: 09/22/2018 Blank Lemos MD Future Office Visit: 90 tablet 0 Sig: TAKE 1 TABLET BY MOUTH EVERY DAY SSRIs Protocol Passed - 04/29/2019 2:21 PM Passed - Recent (12 mo) or future (30 days) visit within the authorizing provider's specialty Patient had office visit in the last 12 months or has a visit in the next 30 days with authorizing provider or within the authorizing provider's specialty. See Patient Info tab in inbasket, or Choose Columns in Meds & Orders section of the refill encounter. 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
--- OUTSIDE RECORDS SUMMARY | 2022-04-09 07:20 | XMS_ITS | Encounter Summary ---
:1990 Author Organization [place] Address [facility] [place] [address] Care Team Providers Name Role Phone Uvaldo Gamble MD Primary Care Provider Uvaldo Gamble MD Unavailable Uvaldo Gamble MD Unavailable Reason for Visit Reason Comments Physical Encounter Details Date Type Department Care Team Description 09/22/2018 Office Visit [facility] Uvaldo Gamble Encounter for gynecological examination without abnormal finding (Primary Dx); Clinic Dev Camp MD Bipolar I disorder (H); [address] [facility] Migra ine without aura and without status migrainosus, not intractable; [facility] Generalized anxiety disorder; [address] [place] [address] Screening for cervical cancer; [place] [address] Tobacco abuse; Otalgia of both ears Social History Tobacco Use Types Packs/Day Years [...] on file documented as of this encounter Last Filed Vital Signs Vital Sign Reading Time Taken Comments Blood Pressure 108/66 09/22/2018 11:20 AM LIAISON ENGINEER Pulse 59 09/22/2018 11:20 AM LIAISON ENGINEER Temperature 36.7 ??C (98.1 ??F) 09/22/2018 11:20 AM LIAISON ENGINEER Respiratory Rate - - Oxygen Saturation 98% 09/22/2018 11:20 AM LIAISON ENGINEER Inhaled Oxygen Concentration - - Weight 84.4 kg (186 lb) 09/22/2018 11:20 AM LIAISON ENGINEER Height - - Body Mass Index 32.43 04/22/2018 8:55 AM CDT documented in this encounter Patient Instructions Patient InstructionsMachelle Tapia MA - 09/22/2018 11:20 AM CST Preventive Health Recommendations Female Ages 26 - 39 Yearly exam: See your health care provider every year in order to ??? Review health changes. ??? Discuss preventive care. ??? Review your medicines if you your doctor has prescribed any. Until age 30: Get a Pap test every three years (more often if you have had an abnormal result). After age 30: Talk to your doctor about whether you should have a Pap test every 3 years or have a Pap test with HPV screening every 5 years. You do not need a Pap test if your uterus was removed (hysterectomy) and you have not had cancer. You should be tested each year for STDs (sexually transmitted diseases), if you're at risk. Talk to your provider about how often to have your cholesterol checked. If you are at risk for diabetes, you should have a diabetes test (fasting glucose). Shots: Get a flu shot each year. Get a tetanus shot every 10 years. Nutrition: ??? Eat at least 5 servings of fruits and vegetables each day. ??? Eat whole-grain bread, whole-wheat pasta and brown rice instead of white grains and rice. ??? Get adequate Calcium and Vitamin D. Lifestyle ??? Exercise at least 150 minutes a week (30 minutes a day, 5 days of the week). This will help you control your weight and prevent disease. ??? Limit alcohol to one drink per day. ??? No smoking. ?? Wear sunscreen to prevent skin cancer. ?? See your dentist every six months for an exam and cleaning. SON ENGINEER documented in this encounter Progress Notes Uvaldo Gamble MD - 09/22/2018 11:20 AM CST SUBJECTIVE: CC: Rena Resendiz is an 28 year old woman who presents for preventive health visit. Intermittent bilateral ear pain x 2-3 months Physical Annual: Getting at least 3 servings of Calcium per day: Yes Bi-annual eye exam: NO Dental care twice a year: NO Sleep apnea or symptoms of sleep apnea: None Diet: Gluten-free/reduced and Other Frequency of exercise: None Taking medications regularly: Yes Medication side effects: None Additional concerns today: No PHQ-2 Total Score: 0 Today's PHQ-2 Score: PHQ-2 (??1999 Pfizer) 09/22/2018 Q1: Little interest or pleasure in doing things 0 Q2: Feeling down, depressed or hopeless 0 PHQ-2 Score 0 Q1: Little interest or pleasure in doing things Not at all Q2: Feeling down, depressed or hopeless Not at all PHQ-2 Score 0 Abuse: Current or Past(Physical, Sexual or Emotional)- No Do you feel safe in your environment? Yes Social History Tobacco Use ??? Smoking status: Current Every Day Smoker Packs/day: 0.25 Years: 8.00 Pack years: 2.00 Types: Cigarettes ??? Smokeless tobacco: Never Used Substance Use Topics ??? Alcohol use: No Alcohol/week: 0.0 oz Alcohol Use 09/22/2018 If you drink alcohol do you typically have greater than 3 drinks per day OR greater than 7 drinks per week? Not Applicable Reviewed orders with patient. Reviewed health maintenance and updated orders accordingly - Yes BP Readings from Last 3 Encounters: 09/22/18 108/66 04/29/18 116/64 04/22/18 100/62 Wt Readings from Last 3 Encounters: 09/22/18 84.4 kg (186 lb) 04/22/18 75.3 kg (166 lb) 08/17/17 73.3 kg (161 lb 11.2 oz) Mammogram not appropriate for this patient based on age. Pertinent mammograms are reviewed under the imaging tab. History of abnormal Pap smear: NO - age 30-65 PAP every 5 years with negative HPV co-testing recommended PAP / HPV 04/05/2015 PAP NIL Reviewed and updated as needed this visit by clinical staff Reviewed and updated as needed this visit by Provider Review of Systems HENT: Positive for ear pain. CONSTITUTIONAL: NEGATIVE for fever, chills, change in weight INTEGUMENTARU/SKIN: NEGATIVE for worrisome rashes, moles or lesions EYES: NEGATIVE for vision changes or irritation ENT: see above RESP: NEGATIVE for significant cough or SOB BREAST: NEGATIVE for masses, tenderness or discharge CV: NEGATIVE for chest pain, palpitations or peripheral edema GI: NEGATIVE for nausea, abdominal pain, heartburn, or change in bowel habits : NEGATIVE for unusual urinary or vaginal symptoms. Periods are regular. MUSCULOSKELETAL: NEGATIVE for significant arthralgias or myalgia NEURO: NEGATIVE for weakness, dizziness or paresthesias PSYCHIATRIC: NEGATIVE for changes in mood or affect OBJECTIVE: There were no vitals taken for this visit. Physical Exam GENERAL: healthy, alert and no distress EYES: Eyes grossly normal to inspection, PERRL and conjunctivae and sclerae normal HENT: ear canals and TM's normal, nose and mouth without ulcers or lesions NECK: no adenopathy, no asymmetry, masses, or scars and thyroid normal to palpation RESP: lungs clear to auscultation - no rales, rhonchi or wheezes BREAST: normal without masses, tenderness or nipple discharge and no palpable axillary masses or adenopathy CV: regular rate and rhythm, normal S1 S2, no S3 or S4, no murmur, click or rub, no peripheral edemaand peripheral pulses strong ABDOMEN: soft, nontender, no hepatosplenomegaly, no masses and bowel sounds normal (female): normal female external genitalia, normal urethral meatus, vaginal mucosa pink, moist, well rugated, and normal cervix/adnexa/uterus without masses or discharge MS: no gross musculoskeletal defects noted, no edema SKIN: no suspicious lesions or rashes NEURO: Normal strength and tone, mentation intact and speech normal PSYCH: mentation appears normal, affect normal/bright Diagnostic Test Results: none ASSESSMENT/PLAN: 1. Encounter for gynecological examination without abnormal finding Declines follow up shot. Weight gain - will try cutting out pop again and recently started eating more at home. 2. Bipolar I disorder (H) Stable - ok to manage for now - if getting out of control will need to see psych. FOLLOW UP in 6 months. - escitalopram (LEXAPRO) 20 MG tablet; Take 1 tablet (20 mg) by mouth daily Dispense: 90 tablet; Refill: 1 3. Migraine without aura and without status migrainosus, not intractable Stable - migraines < 1 per month - continue topamax controller and imitrex prn - topiramate (TOPAMAX) 100 MG tablet; Take 1 tablet (100 mg) by mouth 2 times daily Dispense: 180 tablet; Refill: 3 4. Generalized anxiety disorder Controlled, follow up 6 m - escitalopram (LEXAPRO) 20 MG tablet; Take 1 tablet (20 mg) by mouth daily Dispense: 90 tablet; Refill: 1 5. Screening for cervical cancer - HPV High Risk Types DNA Cervical - Pap imaged thin layer screen with HPV - recommended age 30 - 65 years (select HPV order below) 6. Tobacco abuse Not ready to quite 7. Otalgia of both ears Exam normal - likely eustacian tube dysfuction - rec over the counter flonase and antihistamine. COUNSELING: Reviewed preventive health counseling, as reflected in patient instructions BP Readings from Last 1 Encounters: 04/29/18 116/64 Estimated body mass index is 28.94 kg/m?? as calculated from the following: Height as of 04/22/18: 1.613 m (5' 3.5). Weight as of 04/22/18: 75.3 kg (166 lb). Weight management plan: Discussed healthy diet and exercise guidelines reports that she has been smoking cigarettes. She has a 2.00 pack-year smoking history. she has never used smokeless tobacco. Tobacco Cessation Action Plan: Information offered: Patient not interested at this time Counseling Resources: ATP IV Guidelines Pooled Cohorts Equation Calculator Breast Cancer Risk Calculator FRAX Risk Assessment ICSI Preventive Guidelines Dietary Guidelines for Americans, 2010 USDA's MyPlate ASA Prophylaxis Lung CA Screening [facility] Gamble [facility] S[facility] ENGINEER documented in this encounter Plan of Treatment Not on filedocumented as of this encounter Procedures Procedure Name Priority Date/Time Associated Diagnosis Comme nts PAP IMAGED THIN Routine 09/22/2018 11:51 AM Screening for Resu lts for this LAYER SCREEN LIAISON ENGINEER cervical cancer procedure ar e in the results section. HPV HIGH RISK TYPES Routine 09/22/2018 11:39 AM Screening for Results for this DNA CERVICAL LIAISON ENGINEER cervical cancer procedure ar e in the results section. documented in this encounter Results (ABNORMAL) Pap imaged thin layer screen with HPV - recommended age 30 - 65 years (select HPV order below) (09/22/2018 11:51 AM LIAISON ENGINEER) Component Value Ref Test Analysis Performed At [facility] Range Method Time Signature PAP LSIL (A) COPATH Copath Report COPATH Patient Name: RENA RESENDIZ MR#: [id number] Specimen #: [id number] Collected: 09/22/2018 Received: 09/23/2018 Reported: 09/27/2018 15:17 Ordering Phy(s): UVALDO GMABLE For improved result formatting, select 'View Enhanced [...] CYTOLOGIC INTERPRETATION: Epithelial cell abnormality: ??squamous cell: ??low-grade sq uamous intraepithelial lesion (LSIL) Electronically signed out by: Arthur Grimes M.D. Processed and screened at [facility] CLINICAL HISTORY: A previous normal pap Date of Last Pap: 04/05/15, Papanicolaou Test Limitations: ??Cervical cytology is a sc reening test with limited sensitivity; regular screening is critical for cancer prevention; Pap tests are p rimarily effective for the diagnosis/prevention of squamous cell carcinoma, not adenocarcinomas or other cancer s. TESTING LAB LOCATION: [facility] [place] [address] [place], [place] ??[address] COLLECTION SITE: Client: ??[facility] Location: [facility] (R) Specimen (Source) Anatomical Collection Method Collection Time Re ceived Time Location / / Volume Laterality Cytologic 09/22/2018 11:51 09/23/2018 2:24 material AM LIAISON ENGINEER PM LIAISON ENGINEER (specimen) Uvaldo Gamble MD LAB - OPTIME CLINICAL SPECIM EN Performing Organization Address City/State/ZIP Code Phon e Number COPATH (ABNORMAL) HPV High Risk Types DNA Cervical (09/22/2018 11:39 AM LIAISON ENGINEER) [facility] Method Time Signature HPV Source [facility] 09/22/2018 [place] 11:51 AM [facility] LIAISON ENGINEER HPV 16 DNA Negative NEG^Negat 09/28/2018 [facility] [place] 2:23 PM [facility] HPV 18 DNA Negative NEG^Negat 09/28/2018 [facility] [place] 2:23 PM [facility] Other HR HPV Positive (A) NEG^Negat 09/28/2018 [facility] yakelin 2:23 PM [facility] Final This patient's sample is pos itive for other HR HPV DNA (types 31, 33, 35, 39, 45, 51, 52, 09/28/2018 [facility] 56, 58, 59, 66 or 68), not H PV 16 or HPV 18 DNA. This result requires clinical correlation 2:23 PM [facility] with concurrent cytology findings. [facility] Comment: This test was developed and its performa nce characteristics determined by the [facility], Molecular Diagnostics Laboratory. It has not been [...] followup is recommended. Specimen Description Cervical Cells 09/22/2018 11: 51 AM [facility] Comment: [id number] Specimen Anatomical Collection Method Collection Time Receive d Time (Source) Location / / Volume Laterality Cervical Cells CERVIX UTERI 09/22/2018 11:39 9 1:15 STRUCTURE / AM LIAISON ENGINEER PM LIAISON ENGINEER Unknown Uvaldo Gamble MD LAB - BLOOD ORDERABLES Performing Organization Address City/State/ZIP Code Phon e Number [id number] [place] [id number] documented in this encounter Visit Diagnoses Diagnosis Encounter for gynecological examination without abnormal finding - Primary Routine gynecological examination Bipolar I disorder (H) Bipolar I disorder, most recent episode (or current) unspecified Migraine without aura and without status migrainosus, not intractable Migraine without aura, without mention o f intractable migraine without mention of status migrainosus Generalized anxiety disorder Screening for cervical cancer Screening for malignant neoplasm of the cervix Tobacco abuse Tobacco use disorder Otalgia of both ears Otalgia, unspecified documented in this encounter Additional Health Concerns Assessment Noted Time PHQ-9 Depression Total Score: 4 09/22/2018 3:08 PM LIAISON ENGINEER documented as of this encounter Care Teams Inspector Wire Rope Relationship Specialty Start Date End Date Uvaldo Gamble MD PCP - General Internal Medicine 04/22/[address] [place] [address] [place] [id number] Uvaldo Gamble MD PCP - Assigned PCP 04/25/18 10/12/[address] [place] [address] [place] [phone] Uvaldo Gamble MD Assigned PCP 04/25/[address] [place] [address] [place] [phone] documented as of this encounter
--- OUTSIDE RECORDS SUMMARY | 2022-04-09 07:20 | XMS_ITS | Encounter Summary ---
:1990 Author Organization [place] Address [address] [place] [address] Care Team Providers Name Role Phone Blank Lemos MD Primary Care Provider Blank Lemos MD Unavailable Blank Lemos MD Unavailable Encounter Details Date Type Department Care Team Description 09/22/2018 Travel Social History Tobacco Use Types Packs/Day [...] Depression Total Score: 4 09/22/2018 3:08 PM SUPERVISOR MULTIFOCAL LENS documented as of this encounter Care Teams Machining Supervisor Relationship Specialty Start Date End Date Blank Lemos MD PCP - General Internal Medicine 04/22/[address] [place] [address] [place] [phone] Blank Lemos MD PCP - Assigned PCP 04/25/18 10/12/[address] [place] [address] [place] [id number] Blank Lemos MD Assigned PCP 04/25/[address] [place] [address] [place] [phone] documented as of this encounter
--- OUTSIDE RECORDS SUMMARY | 2022-04-09 07:20 | XMS_ITS | Encounter Summary ---
:1990 Author Organization [place] Address [facility] [place] [address] Care Team Providers Name Role Phone Blank Lemos MD Primary Care Provider Blank Lemos MD Unavailable Hardeep Cárdenas Unavailable Unavailable Reason for Visit Reason Comments Ear Problem Encounter Details Date Type Department Care Team Description 07/15/2019 Office Visit [facility] Rebeka French Non- recurrent acute Clinic Dev Mays PA-C suppurative otitis [address] media of both ears [facility] without spontaneous [address] [place] [address] rupture of tympanic [place] [address] membranes (Primary Dx) Social History Tobacco Use Types Packs/Day Years [...] Sign Reading Time Taken Comments Blood Pressure 118/64 07/15/2019 2:56 PM APPLICATIONS ENGINEERING MANAGER Pulse 67 07/15/2019 2:56 PM APPLICATIONS ENGINEERING MANAGER Temperature 36.8 ??C (98.3 ??F) 07/15/2019 2:56 PM APPLICATIONS ENGINEERING MANAGER Respiratory Rate 16 07/15/2019 2:56 PM APPLICATIONS ENGINEERING MANAGER Oxygen Saturation 98% 07/15/2019 2:56 PM APPLICATIONS ENGINEERING MANAGER Inhaled Oxygen Concentration - - Weight 96.6 kg (213 lb) 07/15/2019 2:56 PM APPLICATIONS ENGINEERING MANAGER Height 160 cm (5' 3) 07/15/2019 2:56 PM APPLICATIONS ENGINEERING MANAGER Body Mass Index 37.73 07/15/2019 2:56 PM APPLICATIONS ENGINEERING MANAGER documented in this encounter Progress Notes Rebeka French PA-C - 07/15/2019 3:00 PM CST Deborah Turner is a 29 year old female who presents to clinic today for the following health issues: HPI Acute Illness Acute illness concerns: Ear Pain Onset: 2 months ?? Fever: no ?? Chills/Sweats: no ?? Headache (location?): no ?? Sinus Pressure:no ?? Conjunctivitis: no ?? Ear Pain: YES: both - plugged, pressure ?? Rhinorrhea: no ?? Congestion: no ?? Sore Throat: YES- couple of days ago, has resolved ?? Cough: no ?? Wheeze: no ?? Decreased Appetite: no ?? Nausea: YES - week before thanksgi ?? Vomiting: no ?? Diarrhea: no ?? Dysuria/Freq.: no ?? Fatigue/Achiness: no ?? Sick/Strep Exposure: no Therapies Tried and outcome: ibuprofen doesn't help Review of Systems ROS COMP: Constitutional, HEENT, cardiovascular, pulmonary, gi and gu systems are negative, except as otherwise noted. Objective BP 118/64 (BP Location: Right arm, Patient Position: Chair, Cuff Size: Adult Regular) Pulse 67 Temp 98.3 ??F (36.8 ??C) (Tympanic) Resp 16 Ht 1.6 m (5' 3) Wt 96.6 kg (213 lb) SpO2 98% BMI 37.73 kg/m?? Body mass index is 37.73 kg/m??. Physical Exam GENERAL: alert and no distress EYES: Eyes grossly normal to inspection, PERRL and conjunctivae and sclerae normal HENT: ear canals and TM's erythemic bilaterally; nose and mouth without ulcers or lesions NECK: no adenopathy RESP: lungs clear to auscultation - no rales, rhonchi or wheezes CV: regular rate and rhythm, normal S1 S2, no S3 or S4 Diagnostic Test Results: No results found for this or any previous visit (from the past 24 hour(s)). Assessment & Plan 1. Non-recurrent acute suppurative otitis media of both ears without spontaneous rupture of tympanicmembranes Begin antibiotics. - amoxicillin-clavulanate (AUGMENTIN) 875-125 MG tablet; Take 1 tablet by mouth 2 times daily Dispense: 20 tablet; Refill: 0 Rebeka French PA-C [facility] DEV ICATIONS ENGINEERING MANAGER documented in this encounter Plan of Treatment Not on filedocumented as of this encounter Visit Diagnoses Diagnosis Non-recurrent acute suppurative otitis m edia of both ears without spontaneous rupture of tympanic membranes - Primary documented in this encounter Additional Health Concerns Assessment Noted Time PHQ-9 Depression Total Score: 4 09/22/2018 3:08 PM APPLICATIONS ENGINEERING MANAGER documented as of this encounter Care Teams Heel Finisher Relationship Specialty Start Date End Date Blank Lemos, PCP - General Internal Medicine [facility] [place] [phone] Blank Lemos, Assigned PCP 04/25/18 [facility] [place] [phone] Hardeep Cárdenas Personal Advocate & 06/17/[birth year]01/30 Liaison (PAL) documented as of this encounter
--- OUTSIDE RECORDS SUMMARY | 2022-04-09 07:20 | XMS_ITS | Encounter Summary ---
:1990 Author Organization [place] Address [facility] [place] [address] Care Team Providers Name Role Phone Blank Lemos MD Primary Care Provider Blank Lemos MD Unavailable Hardeep Cárdenas Unavailable Unavailable Reason for Visit Reason Comments Medication Refill Encounter Details Date Type Department Care Team Description 09/11/2019 Refill [facility] Blank Oliveros MD Medication Refill [place] [address] [facility] [address] [facility] [place] [address] [address] [place] [address] [phone] Social History Tobacco Use Types Packs/Day Years [...] Telephone Encounter - Nahed Carrillo MA - 09/12/2019 5:38 PM CST I spoke to patient; appointment scheduled. VITALY ALEJANDRO MA on 09/12/2019 at 5:38 PM SMITH Telephone Encounter - Blank Lemos MD - 09/12/2019 3:12 PM CST Refilled x 3 months. Needs yearly appt before any additional refills after this. Please help her schedule physical plus within the next 3 months. Blank Lemos MD Internal Medicine/Pediatrics [facility] SMITH Telephone Encounter - Tia Floyd RN - 09/12/2019 3:08 PM CST topiramate (TOPAMAX) 100 MG tablet Last Written Prescription Date: 09/22/18 Last Fill Quantity: 180, # refills: 3 Last Office Visit: 09/22/18 Future Office visit: Routing refill request to provider for review/approval because: Labs not current Lipid, ALT/AST, Plt Due for appt this month, Pended #90 with note to schedule appt Please review and authorize if appropriate, Thank you, Tia Tan RN Requested Prescriptions Pending Prescriptions Disp Refills ??? topiramate (TOPAMAX) 100 MG tablet [Pharmacy Med Name: TOPIRAMATE 100MG TABLETS] 180 tablet 3 Sig: TAKE 1 TABLET(100 MG) BY MOUTH TWICE DAILY Anti-Seizure Meds Protocol Failed - 09/11/2019 1:08 PM Failed - Review Authorizing provider's last note. Refer to last progress notes: confirm request is for original authorizing provider (cannot be through other providers). Failed - Normal CBC on file in past 26 months Recent Labs Lab Test 01/28/17 0912 04/19/16 2125 WBC -- 9.2 RBC -- 4.24 HGB 13.5 13.2 HCT -- 38.5 PLT -- 429 Failed - Normal ALT or AST on file in past 26 months Recent Labs Lab Test 12/22/16 1015 ALT 55* Recent Labs Lab Test 12/22/16 1015 AST 22 Failed - Normal platelet count on file in past 26 months Recent Labs Lab Test 04/19/16 2125 PLT 429 Passed - Recent (12 mo) or future (30 days) visit within the authorizing provider's specialty Patient has had an office visit with the authorizing provider or a provider within the authorizing providers department within the previous 12 mos or has a future within next 30 days. See Patient Info tab in inbasket, or Choose Columns in Meds & Orders section of the refill encounter. Passed - Medication is active on med list Passed - No active on record Passed - No positive test in last 12 months SMITH documented in this encounter Plan of Treatment Not on filedocumented as of this encounter Visit Diagnoses Diagnosis Migraine without aura and without status migrainosus, not intractable Migraine without aura, without mention o f intractable migraine without mention of status migrainosus documented in this encounter Additional Health Concerns Assessment Noted Time PHQ-9 Depression Total Score: 4 09/22/2018 3:08 PM TOOLSMITH documented as of this encounter Care Teams Credit Collection Specialist Relationship Specialty Start Date End Date Blank Lemos, PCP - General Internal Medicine [facility] [facility] [place] [phone] Blank Lemos, Assigned PCP 04/25/[address] [facility] [place] [phone] Hardeep Cárdenas Personal Advocate & 06/17/1901/30 Liaison (PAL) documented as of this encounter
--- OUTSIDE RECORDS SUMMARY | 2022-04-09 07:20 | XMS_ITS | Encounter Summary ---
:1990 Author Organization [place] Address [address] [place] [address] Care Team Providers Name Role Phone Blank Lemos MD Primary Care Provider Blank Lemos MD Unavailable Blank Lemos MD Unavailable Hardeep Cárdenas Unavailable Unavailable Kathleen Lacy CNM Unavailable Anabell Shannon Unavailable Unavailable Rand Kam APRN CNM Unavailable Sharita Frias MD Unavailable Kathleen Lacy CNM Unavailable Kathleen Lacy CNM Unavailable Sharita Frias MD Unavailable Encounter Details Date Type Department Care Team Description 08/09/2018 Telephone [facility] Blank Oliveros MD [place] [address] [facility] [address] [facility] [place] [address] [address] [place] [address] [phone] Social History Tobacco Use Types Packs/Day Years [...] documented as of this encounter Care Teams Appeals Rn Relationship Specialty Start Date End Date Blank Lemos, PCP - General Internal Medicine 04/22/[address] [place] [address] [place] R[place] [id number] Blank Lemos, PCP - Assigned PCP 04/25/[address] [place] [address] [place] [phone] Blank Lemos, Assigned PCP 04/25/[address] [place] [address] [place] [address] Hardeep Cárdenas Personal Advocate & 06/17/1901/30 Liaison (PAL) Kathleen Lacy CNM Assigned OBGYN Provider 06/01/20 11/23/21 [address] [place] [address] Anabell Shannon Personal Advocate & 10/25/20 Liaison (PAL) Rand Kam, Assigned OBGYN Provider 11/24/21 12/28/21 DATA ANALYST REPORT WRITER CNM [address] [place], [place] [phone] Sharita Frias, Assigned OBGYN Provider 01/04/22 01/17/22 [address] [place], [place] [phone] Kathleen Lacy CNM Assigned OBGYN Provider 12/29/21 01/03/22 [address] [place], [place] [address] Kathleen Lacy CNM Assigned OBGYN Provider 01/18/22 01/24/22 [address] [place] [address] Sharita Frias, Assigned OBGYN Provider 01/25/22 [address] [place], [place] [phone] documented as of this encounter
--- OUTSIDE RECORDS SUMMARY | 2022-04-09 07:20 | XMS_ITS | Encounter Summary ---
:1990 Author Organization [place] Address [address] [place] [address] Care Team Providers Name Role Phone Blank Lemos MD Primary Care Provider Blank Lemos MD Unavailable Hardeep Cárdenas Unavailable Unavailable Encounter Details Date Type Department Care Team Description 07/26/2019 Travel Social History Tobacco Use Types Packs/Day [...] Depression Total Score: 4 09/22/2018 3:08 PM [employer] documented as of this encounter Care Teams Computer Applications Developer Relationship Specialty Start Date End Date Blank Lemos, PCP - General Internal Medicine [facility] [address] V[place], K[place]AN [phone] Blank Lemos, Assigned PCP 04/25/18 [facility] [place] [phone] Hardeep Cárdenas Personal Advocate & 06/17/1901/30 Liaison (PAL) documented as of this encounter
--- OUTSIDE RECORDS SUMMARY | 2022-04-09 07:20 | XMS_ITS | Encounter Summary ---
:1990 Author Organization [place] Address [facility] [place] [address] Care Team Providers Name Role Phone Lalita Perez MD Primary Care Provider Reason for Visit Reason Onset Date Comments Refill Request 01/14/2017 escitalopram (LEXAPR O) 20 MG tablet 01/14/17 Encounter Details Date Type Department Care Team Description 01/14/2017 Refill [facility] Lalita Perez MD Refill Request Clinic [facility] (escitalopram (LEXAPRO) [address] [place] [address] [facility] 20 MG tablet 01/14/17) [facility] [address] [place] [id number] [place] [id number] [phone] Social History Tobacco Use Types Packs/Day Years [...] this encounter Miscellaneous Notes Telephone Encounter - Vandana Sosa RN - 01/15/2017 2:03 PM CDT Prescription approved per [facility] Refill Protocol. Vandana Sosa RN Telephone Encounter - Nini Figueroa - 01/14/2017 11:31 AM CDT Medication Detail Disp Refills Start End GERARDO escitalopram (LEXAPRO) 20 MG tablet 90 tablet 2 04/10/2016 No Sig: Take 1 tablet (20 mg) by mouth daily Last Office Visit with [facility] primary care provider: 12/22/16 Last PHQ-9 score on record= PHQ-9 SCORE 04/10/2016 Total Score - Total Score 14 documented in this encounter Plan of Treatment Not on filedocumented as of this encounter Visit Diagnoses Diagnosis Generalized anxiety disorder Bipolar I disorder (H) Bipolar I disorder, most recent episode (or current) unspecified documented in this encounter Additional Health Concerns Assessment Noted Time PHQ-9 Depression Total Score: 14 04/11/2016 7:23 AM CD T documented as of this encounter Care Teams Pump Installation And Servicer Relationship Specialty Start Date End Date Lalita Perez MD PCP - General Student in organized health 10/21/1404/21 care education/training program documented as of this encounter
--- OUTSIDE RECORDS SUMMARY | 2022-04-09 07:20 | XMS_ITS | Encounter Summary ---
:1990 Author Organization [place] Address [facility] [place] [address] Care Team Providers Name Role Phone Lalita Perez MD Primary Care Provider Reason for Visit Reason Onset Date Comments Prior Auth - Medication 12/25/2016 Omeprazole 20mg caps Encounter Details Date Type Department Care Team Description 12/25/2016 Telephone [facility] Blank Lemos Prior Aut h - Medication Clinic Dev Camp MD (Omeprazole 20mg caps) [address] [place] [address] [facility] [address] [place] [address] [place] [address] [phone] Social History Tobacco Use Types Packs/Day Years [...] this encounter Miscellaneous Notes Telephone Encounter - Kiersten Oliveira CMA - 12/25/2016 10:07 AM CDT Received a PA response stating no PA needed for this medication it is covered through insurance. Pharmacy and insurance notified. Kiersten Oliveira MA Telephone Encounter - Kiersten Oliveira CMA - 12/25/2016 9:29 AM CDT PA needed on Omeprazole 20 mg caps. Insurance # [phone] Pharmacy [facility] [address] ^^ [phone] I will start the PA process undercover my meds. RENA RESENDIZ (Salomon: AHTHAA) Omeprazole 20MG dr capsules Outcome: N/A Created: December 25, 2016 Sent: December 25, 2016 Will await a response. Kiersten Oliveira MA documented in this encounter Plan of Treatment Not on filedocumented as of this encounter Visit Diagnoses Not on filedocumented in this encounter Additional Health Concerns Assessment Noted Time PHQ-9 Depression Total Score: 14 04/11/2016 7:23 AM CD T documented as of this encounter Care Teams Punchboard Filling Machine Operator Relationship Specialty Start Date End Date Lalita Perez MD PCP - General Student in organized health 10/21/1404/21 care education/training program documented as of this encounter
--- OUTSIDE RECORDS SUMMARY | 2022-04-09 07:20 | XMS_ITS | Encounter Summary ---
:1990 Author Organization [place] Address [facility] [place] [address] Care Team Providers Name Role Phone Lalita Perez MD Primary Care Provider Reason for Visit Reason Comments Forms Encounter Details Date Type Department Care Team Description 12/22/2016 Office Visit [facility] Blank Lemos Gastroeso phageal reflux disease without esophagitis (Primary Dx); Clinic Dev Camp MD History of MMR vaccination; [address] [place] [address] [place] RUQ abdomi nal pain; [facility] Migraine without aura and without status migrainosus, not intractable [address] [place] [address] [place] [address] Social History Tobacco Use [...] Sign Reading Time Taken Comments Blood Pressure 94/60 12/22/2016 9:41 AM CDT Pulse 82 12/22/2016 9:41 AM CDT Temperature 37.1 ??C (98.7 ??F) 12/22/2016 9:41 AM CDT Respiratory Rate - - Oxygen Saturation 98% 12/22/2016 9:41 AM CDT Inhaled Oxygen Concentration - - Weight 75.8 kg (167 lb) 12/22/2016 9:41 AM CDT Height 160.7 cm (5' 3.25) 12/22/2016 9:41 AM CDT Body Mass Index 29.35 12/22/2016 9:41 AM CDT documented in this encounter Patient Instructions Patient InstructionsBlank Lemos MD - 12/22/2016 9:40 AM CDT Check MMR status today. FMLA paperwork filled out. Labs today for abd pain - please start taking omeprazole every day for the next 4 weeks. FOLLOW UP in 1 month if pain not improving. documented in this encounter Progress Notes Blank Lemos MD - 12/22/2016 9:40 AM CDT SUBJECTIVE: Rena Turner is a 26 year old female who presents to clinic today for the following health issues: FMLA paperwork from [facility] center for ongoing migraines. 1. Migraines - at last visit we increased the trazodone to 100mg bid. Patient unsure if helping, because she has been having more GI issues which are causing her to eat less, which then triggers a migraine. Getting 2-4 migraines per month, lasting 2-4 days each. 2. Abd pain - epigastric and RUQ - some discomfort all the time, but worse when eating (After eating), laying down (wakes up with the pain). No h/o gerd, gallbladder. Thinks she is gluten sensitive andhas had problems with dairy. Currently only eating meat, veggies and fruits. No nausea or vomiting or diarrhea. 3. Unsure of MMR status and works with [place]. Problem list and histories reviewed & adjusted, as indicated. Additional history: as documented Reviewed and updated as needed this visit by clinical staff Reviewed and updated as needed this visit by Provider ROS: Constitutional, HEENT, cardiovascular, pulmonary, gi and gu systems are negative, except as otherwise noted. OBJECTIVE: BP 94/60 (BP Location: Right arm, Cuff Size: Adult Regular) Pulse 82 Temp 98.7 ??F (37.1 ??C) (Oral) Ht 5' 3.25 (1.607 m) Wt 167 lb (75.8 kg) LMP 12/08/2016 SpO2 98% BMI 29.35 kg/m2 Body mass index is 29.35 kg/(m^2). GENERAL APPEARANCE: healthy, alert and no distress ABDOMEN: soft, nontender, without hepatosplenomegaly or masses and bowel sounds normal Diagnostic Test Results: none ASSESSMENT/PLAN: 1. Gastroesophageal reflux disease without esophagitis PPI trial - it not improving, will need to consider EGD for further evaluation. No melena or bloody stools. - omeprazole (PRILOSEC) 20 MG CR capsule; Take 1 capsule (20 mg) by mouth daily Dispense: 90 capsule; Refill: 1 - Comprehensive metabolic panel 2. History of MMR vaccination - Measles/Mumps/Rubella Immunity ([facility]) 3. RUQ abdominal pain Most like gerd vs gallbladder - gerd ppi trial as above #1 - Comprehensive metabolic panel 4. Migraine without aura and without status migrainosus, not intractable Unchanged, but other factors involved now as above. No changes to medications today. Patient Instructions Check MMR status today. FMLA paperwork filled out. Labs today for abd pain - please start taking omeprazole every day for the next 4 weeks. FOLLOW UP in 1 month if pain not improving. Blank Lemos MD [facility] documented in this encounter Nursing Notes Maritza Alcocer MA - 12/22/2016 9:40 AM CDT Chief Complaint Patient presents with ??? Forms Initial BP 94/60 (BP Location: Right arm, Cuff Size: Adult Regular) Pulse 82 Temp 98.7 ??F (37.1??C) (Oral) Ht 5' 3.25 (1.607 m) Wt 167 lb (75.8 kg) LMP 12/08/2016 SpO2 98% BMI 29.35 kg/m2 Estimated body mass index is 29.35 kg/(m^2) as calculated from the following: Height as of this encounter: 5' 3.25 (1.607 m). Weight as of this encounter: 167 lb (75.8 kg). Medication Reconciliation: complete Maritza Alcocer MA documented in this encounter Plan of Treatment Not on filedocumented as of this encounter Procedures Procedure Name Priority Date/Time Associated Diagnosis Comme nts MUMPS IMMUNE STATUS, Routine 12/22/2016 10:15 History of MMR R esults for this IGG AM CDT vaccination procedure are i n the results section. RUBEOLA ANTIBODY IGG Routine 12/22/2016 10:15 History of MMR R esults for this AM CDT vaccination procedure are i n the results section. RUBELLA ANTIBODY IGG Routine 12/22/2016 10:15 History of MMR R esults for this AM CDT vaccination procedure are i n the results section. COMPREHENSIVE Routine 12/22/2016 10:15 Gastroesophageal reflux Results for this METABOLIC PANEL AM CDT disease without procedure are in esophagitis the results RUQ abdominal pain section. documented in this encounter Results (ABNORMAL) Rubeola Antibody IgG (12/22/2016 10:15 AM CDT) athologist Signature [place]ubeola 2.0 (H) 0.0 - 0.8 [facility] (Measles) AI [place] [facility] Antibody IgG [facility] Comment: Positive, suggests prev. exposure and pr obable immunity Antibody index (AI) values reflect qual itative changes in antibody concentration that cannot be directly a ssociated with clinical condition or disease state. Specimen Anatomical Collection Method Collection Time Receive d Time (Source) Location / / Volume Laterality Blood specimen 12/22/2016 10:15 7 (specimen) AM CDT 10:16 AM CDT Blank Lemos MD LAB - BLOOD ORDERABLES Performing Organization Address City/[facility]/ZIP Code Phon e Number [address] Rubella Antibody IgG Quantitative (12/22/2016 10:15 AM CDT) Analysis Performed At Patho logist Time Signature Rubella Antibody 18 IU/mL [facility] IgG Quantitative [facility] Comment: Positive. ??Suggests previous exposure o r immunization and probable immunity Reference Range: ?? Unvaccinated Negative 0-7 IU/mL Vaccinated or previous exposure Positiv e 10 IU/ml or greater Specimen Anatomical Collection Method Collection Time Receive d Time (Source) Location / / Volume Laterality Blood specimen 12/22/2016 10: 7 (specimen) AM CDT 10:16 AM CDT Blank Lemos MD LAB - BLOOD ORDERABLES Performing Organization Address [facility]/ZIP Code Phon e Number [address] (ABNORMAL) Mumps Antibody IgG (12/22/2016 10:15 AM CDT) P athologist Signature Mumps Antibody 2.1 (H) 0.0 - 0.8 [facility] IgG AI [facility] Comment: Positive, suggests prev. exposure and pr obable immunity Antibody index (AI) values reflect qual itative changes in antibody concentration that cannot be directly a ssociated with clinical condition or disease state. Specimen Anatomical Collection Method Collection Time Receive d Time (Source) Location / / Volume Laterality Blood specimen 12/22/2016 10: 7 (specimen) AM CDT 10:16 AM CDT Blank Lemos MD LAB - BLOOD ORDERABLES Performing Organization Address City/[facility]/ZIP Code Phon e Number [address] (ABNORMAL) Comprehensive metabolic panel (12/22/2016 10:15 AM CDT) Patholo gist Method Time Signature Sodium 143 133 - 144 [place] mmol/L [facility] Potassium 4.2 3.4 - 5.3 [place] mmol/L [facility] Chloride 112 (H) 94 - 109 [place] mmol/L [facility] Carbon Dioxide 23 20 - 32 [place] mmol/L [facility] Anion Gap 8 3 - 14 [place] mmol/L [facility] Glucose 82 70 - 99 [place] mg/dL [facility] Urea Nitrogen 13 7 - 30 [place] mg/dL [facility] Creatinine 0.72 0.52 - [place] 1.04 [facility] mg/dL [facility] GFR Estimate >90 >60 [place] Non GFR Calc mL/min/1. CLINICS 7m2 [facility] GFR Estimate If >90 >60 [place] Black GFR Calc mL/min/1. CLIN ICS 7m2 [facility] Calcium 9.2 8.5 - [place] 10.1 [facility] mg/dL [facility] Bilirubin Total 0.3 0.2 - 1.3 [place] mg/dL [facility] Albumin 3.6 3.4 - 5.0 [place] g/dL [facility] Protein Total 7.0 6.8 - 8.8 [place] g/dL [facility] Alkaline 78 40 - 150 [place] Phosphatase U/L [facility] ALT 55 (H) 0 - 50 [place] U/L [facility] AST 22 0 - 45 [place] U/L [facility] Specimen Anatomical Collection Method Collection Time Receive d Time (Source) Location / / Volume Laterality Blood specimen 12/22/2016 10:15 7 (specimen) AM CDT 10:16 AM CDT Blank Lemos MD LAB - BLOOD ORDERABLES Performing Organization Address City/State/ZIP Code Phon e Number [facility] [address] [place] [address] documented in this encounter Visit Diagnoses Diagnosis Gastroesophageal reflux disease without esophagitis - Primary Esophageal reflux History of MMR vaccination RUQ abdominal pain Abdominal pain, right upper quadrant Migraine without aura and without status migrainosus, not intractable Migraine without aura, without mention o f intractable migraine without mention of status migrainosus documented in this encounter Additional Health Concerns Assessment Noted Time PHQ-9 Depression Total Score: 14 04/11/2016 7:23 AM CD T documented as of this encounter Care Teams Poultry Offal Icer Relationship Specialty Start Date End Date Lalita Perez MD PCP - General Student in [facility] 10/21/1404/21 care education/training program documented as of this encounter
--- OUTSIDE RECORDS SUMMARY | 2022-04-09 07:20 | XMS_ITS | Encounter Summary ---
:1990 Author Organization [place] Address [facility] [place] [address] Care Team Providers Name Role Phone Lalita Perez MD Primary Care Provider Reason for Visit Reason Onset Date Comments Refill Request 07/13/2017 escitalopram (LEXAPR O) 20 MG tablet Encounter Details Date Type Department Care Team Description 07/13/2017 Refill [facility] Lalita Perez MD Refill Request Clinic [facility] (escitalopram (LEXAPRO) [address] [place] [address] [facility] 20 MG tablet) [place] [address] [place] [address] [place] [address] [phone] Social History Tobacco Use Types Packs/Day Years [...] this encounter Miscellaneous Notes Telephone Encounter - Anastasia Ashley - 07/31/2017 10:51 AM CST 3rd T DOUBLE Telephone Encounter - Anastasia Ashley - 07/24/2017 11:13 AM CST Left 2nd VM for pt to call back. She is over due for an office visit. T DOUBLE Telephone Encounter - Chrissie Arana - 07/17/2017 1:49 PM CST Left message for patient to call us back. She is due for an office visit. T DOUBLE Telephone Encounter - Lily Encarnacion MD - 07/15/2017 8:23 PM STUNT DOUBLE Depression and anxiety have not been addressed at since 04/2016 per notes. Was referred to Psychiatry at that time. Needs f/u. Rx filled for 30 days. Please let know. Lily Encarnacion MD Internal Medicine/Pediatrics T DOUBLE Telephone Encounter - Alissa Blank RN - 07/15/2017 4:44 PM CST Requested Prescriptions Pending Prescriptions Disp Refills ??? escitalopram (LEXAPRO) 20 MG tablet 90 tablet 1 Sig: Take 1 tablet (20 mg) by mouth daily SSRIs Protocol Passed 07/13/2017 9:29 AM Passed - Recent or future visit with authorizing provider Patient had office visit in the last year or has a visit in the next 30 days with authorizing provider. See chart review. Passed - Medication is NOT Bupropion If the medication is Bupropion (Wellbutrin), and the patient is taking for smoking cessation; OK torefill. Passed - Patient is age 18 or older Passed - No active on record Passed - No positive test in last 12 months Routing refill request to provider for review/approval because: R/t diagnosis of bipolar, will forward to Dr. Encarnacion as she saw her last T DOUBLE Telephone Encounter - Lalita Merritt - 07/13/2017 9:29 AM CST WERO 01/28/2017 T DOUBLE documented in this encounter Plan of Treatment Not on filedocumented as of this encounter Visit Diagnoses Diagnosis Generalized anxiety disorder Bipolar I disorder (H) Bipolar I disorder, most recent episode (or current) unspecified documented in this encounter Additional Health Concerns Assessment Noted Time PHQ-9 Depression Total Score: 14 04/11/2016 7:23 AM CD T documented as of this encounter Care Teams Corporate Travel Agent Relationship Specialty Start Date End Date Lalita Perez MD PCP - General Student in [facility] 10/21/1404/21 care education/training program documented as of this encounter
--- OUTSIDE RECORDS SUMMARY | 2022-04-09 07:20 | XMS_ITS | Encounter Summary ---
:1990 Author Organization [place] Address [facility] [place] [address] Care Team Providers Name Role Phone Blank Lemos MD Primary Care Provider Blank Lemos MD Unavailable Blank Lemos MD Unavailable Reason for Visit Reason Comments Colposcopy Encounter Details Date Type Department Care Team Description 10/07/2018 Office Visit [facility] Yonathan Giraldo smear of Clinic [place] You MD cervix with low grade [address], [place] intraepithelial lesion [phone] (LGSIL) (Primary Dx) [place] [phone] (Wo rk) [id number] [phone] Social History Tobacco Use Types Packs/Day Years Used Date Current Every Day Smoker Cigarettes 0.25 8 Smokeless Tobacco: Never Used Tobacco Cessation: Ready [...] Sign Reading Time Taken Comments Blood Pressure 114/80 10/07/2018 2:04 PM MEDICAL RECORDS CUSTODIAN Pulse - - Temperature - - Respiratory Rate - - Oxygen Saturation - - Inhaled Oxygen Concentration - - Weight 84.6 kg (186 lb 9.6 oz) 10/07/2018 2:04 PM MEDICAL RECORDS CUSTODIAN Height - - Body Mass Index 32.54 04/22/2018 8:55 AM CDT documented in this encounter Progress Notes Yonathan Giraldo MD - 10/07/2018 2:00 PM CST Images from the original note were not included. 28 year old P0 presents for colposcopy. Indication for procedure:low grade squamous intraepithelial lesion (LGSIL) HPV other + Prior history of cervical dysplasia: No First abnormal Pap Prior Colposcopy history: No Prior LEEP:No Patient's last menstrual period was 09/25/2018 (exact date). Tobacco: Yes Gardasil vaccination status:No test: Negative Discussed nature of HPV related infection, natural history and association with cervical dysplasia. Procedure for colposcopy and biopsy was explained to the patient and consent obtained. All the patient's questions were answered. PROCEDURE: COLPOSCOPY After a procedural timeout was taken, she was positioned in dorsal lithotomy and a speculum was inserted to allow visualization of the cervix. A 5% acetic acid solution was applied to the ectocervix with large swabs. Lugols solution was also applied. Colposcopic examination was then undertaken of the cervix, distal vaginal canal and vaginal fornices. FINDINGS:Physical Exam Genitourinary: No lesions seen. No biopsies taken Procedures Plan: Pap/HPV in 1 year Yonathan Giraldo MD CAL RECORDS CUSTODIAN documented in this encounter Nursing Notes Shi Rinaldi CMA - 10/07/2018 2:00 PM CST Chief Complaint Patient presents with ??? Colposcopy Initial BP 114/80 Wt 84.6 kg (186 lb 9.6 oz) LMP 09/25/2018 (Exact Date) BMI 32.54 kg/m?? Estimated body mass index is 32.54 kg/m?? as calculated from the following: Height as of 04/22/18: 1.613 m (5' 3.5). Weight as of this encounter: 84.6 kg (186 lb 9.6 oz). BP completed using cuff size: large Questioned patient about current smoking habits. Pt. currently smokes. Advised about smoking cessation. No obstetric history on file. The following HM Due: Vaccinations: flu shot declined Shi Rinaldi CMA CAL RECORDS CUSTODIAN documented in this encounter Plan of Treatment Not on filedocumented as of this encounter Procedures Procedure Name Priority Date/Time Associated Diagnosis Comme nts HCG QUALITATIVE LEANDRA 10/07/2018 2:11 Papanicolaou smear of Results for this URINE PM MEDICAL RECORDS CUSTODIAN cervix with low grade proced ure are in squamous the results intraepithelial lesion secti on. (LGSIL) documented in this encounter Results HCG qualitative urine - CSC and Range (10/07/2018 2:11 PM MEDICAL RECORDS CUSTODIAN) P athologist Signature HCG Qual Urine Negative NEG^Negati 10/07/2018 [facility] 2:24 PM MEDICAL RECORDS CUSTODIAN [facility] Comment: This test is for screening purposes. ??R esults should be interpreted along with the clinical picture. ??Confirmation te sting is available if warranted by ordering [id number], HCG Quantitative Pregna ncy. Specimen Anatomical Collection Method Collection Time Receive d Time (Source) Location / / Volume Laterality Urine specimen 10/07/2018 2:11 PM 019 2:13 (specimen) MEDICAL RECORDS CUSTODIAN PM MEDICAL RECORDS CUSTODIAN Yonathan Giraldo MD LAB - URINE ORDERABLES Performing Organization Address City/State/ZIP Code Phon e Number [address] [address] documented in this encounter Visit Diagnoses Diagnosis Papanicolaou smear of cervix with low gr asiya squamous intraepithelial lesion (LGSIL) - Primary documented in this encounter Additional Health Concerns Assessment Noted Time PHQ-9 Depression Total Score: 4 09/22/2018 3:08 PM MEDICAL RECORDS CUSTODIAN documented as of this encounter Care Teams Subway Train Driver Relationship Specialty Start Date End Date Blank Lemos MD PCP - General Internal Medicine 04/22/[address] [place] [address] DR VASQUEZ, KISHAN [phone] Blank Lemos MD PCP - Assigned PCP 04/25/18 10/12/[address] [place] [address] KISHAN RENO [phone] Blank Lemos MD Assigned PCP 04/25/[address] [place] [address] KISHAN RENO [phone] documented as of this encounter
--- OUTSIDE RECORDS SUMMARY | 2022-04-09 07:20 | XMS_ITS | Encounter Summary ---
:1990 Author Organization [place] Address [address] [place] [address] Care Team Providers Name Role Phone Blank Lemos MD Primary Care Provider Blank Lemos MD Unavailable Hardeep Cárdenas Unavailable Unavailable Encounter Details Date Type Department Care Team Description 07/15/2019 Travel Social History Tobacco Use Types Packs/Day [...] Depression Total Score: 4 09/22/2018 3:08 PM SAPPHIRE STYLUS GRINDER documented as of this encounter Care Teams Electroencephalograph Technician Relationship Specialty Start Date End Date Blank Lemos, PCP - General Internal [facility] [address] VASQUEZ, KISHAN [phone] Blank Lemos, Assigned PCP [facility] KISHAN RENO [phone] Hardeep Cárdenas Personal Advocate & 06/17/1903/30 Liaison (PAL) documented as of this encounter
--- OUTSIDE RECORDS SUMMARY | 2022-04-09 07:20 | XMS_ITS | Encounter Summary ---
:1990 Author Organization [place] Address [address] [place] [address] Care Team Providers Name Role Phone Blank Lemos MD Primary Care Provider Reason for Visit Reason Comments Forms UTI Encounter Details Date Type Department Care Team Description 04/22/2018 Office Visit [facility] Blank Lemos Dysuria ( Primary Dx); Clinic [place] MD Acute cystitis without hematuria; [address] [address] [facility] Other migraine without status migrainosus, not intractable [facility] [address] [place] [address] [place] [address] Social History Tobacco Use Types Packs/Day [...] Sign Reading Time Taken Comments Blood Pressure 100/62 04/22/2018 8:55 AM CDT Pulse 79 04/22/2018 8:55 AM CDT Temperature 36.9 ??C (98.5 ??F) 04/22/2018 8:55 AM CDT Respiratory Rate - - Oxygen Saturation 99% 04/22/2018 8:55 AM CDT Inhaled Oxygen Concentration - - Weight 75.3 kg (166 lb) 04/22/2018 8:55 AM CDT Height 161.3 cm (5' 3.5) 04/22/2018 8:55 AM CDT Body Mass Index 28.94 04/22/2018 8:55 AM CDT documented in this encounter Patient Instructions Patient InstructionsBlank Lemos MD - 04/22/2018 8:40 AM CDT Take nitrofurantion x 7 days for bladder infection (no intercourse while completing antibiotic). If not improving/or better after a week, please let me know. Follow-up this winter for physical/PAP. documented in this encounter Progress Notes Blank Lemos MD - 04/22/2018 8:40 AM CDT SUBJECTIVE: Rena Turner is a 28 year old female who presents to clinic today for the following health issues: Forms, FMLA paperwork for migraines. Currently on topamax for prevention and uses sumatriptan 1-2 times per month. During her flares she is usual suffering 1-2 days - needs quite, dark room. Needing FMLA for up to 2 days off per month for flares with 2 days per episode. URINARY TRACT SYMPTOMS ?? Duration: 2 1/2 weeks ?? Description dysuria, frequency and urgency ?? Intensity: moderate ?? Accompanying signs and symptoms: Fever/chills: no Flank pain no Nausea and vomiting: no Vaginal symptoms: none Abdominal/Pelvic Pain: no ?? History History of frequent UTI's: no History of kidney stones: no Sexually Active: YES Possibility of : No ?? Precipitating or alleviating factors: None ?? Therapies tried and outcome: increase fluid intake and OTC Uristat. Outcome: Somewhat helpful. Problem list and histories reviewed & adjusted, as indicated. Additional history: as documented Reviewed and updated as needed this visit by clinical staff Reviewed and updated as needed this visit by Provider ROS: Constitutional, HEENT, cardiovascular, pulmonary, gi and gu systems are negative, except as otherwise noted. OBJECTIVE: BP 100/62 (BP Location: Right arm, Cuff Size: Adult Large) Pulse 79 Temp 98.5 ??F (36.9 ??C) (Oral) Ht 5' 3.5 (1.613 m) Wt 166 lb (75.3 kg) LMP 04/18/2018 SpO2 99% BMI 28.94 kg/m2 Body mass index is 28.94 kg/(m^2). GENERAL APPEARANCE: healthy, alert and no distress ABDOMEN: soft, nontender, without hepatosplenomegaly or masses and bowel sounds normal BACK: no CVA tenderness Diagnostic Test Results: none ASSESSMENT/PLAN: 1. Dysuria - UA reflex to Microscopic and Culture - Urine Microscopic 2. Acute cystitis without hematuria - nitroFURantoin, macrocrystal-monohydrate, (MACROBID) 100 MG capsule; Take 1 capsule (100 mg) by mouth 2 times daily Dispense: 14 capsule; Refill: 0 3. Other migraine without status migrainosus, not intractable Controlled, refill and FMLA paperwork completed - SUMAtriptan (IMITREX) 25 MG tablet; Take 1-2 tablets (25-50 mg) by mouth at onset of headache for migraine May repeat in 2 hours. Max 8 tablets/24 hours. Dispense: 18 tablet; Refill: 3 Patient Instructions Take nitrofurantion x 7 days for bladder infection (no intercourse while completing antibiotic). If not improving/or better after a week, please let me know. Follow-up this winter for physical/PAP. Blank Lemos MD [facility] documented in this encounter Plan of Treatment Not on filedocumented as of this encounter Procedures Procedure Name Priority Date/Time Associated Comments Diagnosis URINE MICROSCOPIC Routine 04/22/2018 8:53 AM Dysuria Resu lts for this CDT procedure are i n the results section. UA MACROSCOPIC WITH Routine 04/22/2018 8:53 AM Dysuria Re sults for this REFLEX TO MICROSCOPIC CDT proced ure are in AND CULTURE the results section. documented in this encounter Results (ABNORMAL) Urine Microscopic (04/22/2018 8:53 AM CDT) Analysis Performed At Patho logist Time Signature WBC Urine 5-10 (A) OTO5^0 - 5 04/22/2018 [facility] /HPF 9:01 AM CDT CLINICS [facility] RBC Urine O - 2 OTO2^O - 2 04/22/2018 [facility] /HPF 9:01 AM CDT CL[facility]ICS [facility] Squamous Few FEW^Few 04/22/2018 [facility] Epithelial /LPF /LPF 9:01 AM CDT [facility] [place] N Urine Bacteria Urine Few (A) NEG^Negati 04/22/2018 [facility] ve /HPF 9:01 AM CDT CLINICS [facility] Specimen Anatomical Collection Method Collection Time Receive d Time (Source) Location / / Volume Laterality 04/22/2018 8:53 AM 8 8:55 CDT AM CDT Blank Lemos MD LAB - URINE ORDERABLES Performing Organization Address City/State/ZIP Code Phon e Number [facility] [address] [place] [address] (ABNORMAL) UA reflex to Microscopic and Culture (04/22/2018 8:53 AM CDT) Patholo gist Method Time Signature Color Urine Yellow 04/22/2018 [facility] 9:01 AM CDT [facility] Appearance Urine Clear 04/22/2018 [facility] 9:01 AM CDT [facility] Glucose Urine Negative NEG^Negat 04/22/2018 [facility] [place] mg/dL 9:01 AM CDT [facility] Bilirubin Urine Negative NEG^Negat 04/22/2018 [facility] [place] 9:01 AM CDT [facility] Ketones Urine Negative NEG^Negat 04/22/2018 [facility] [place] mg/dL 9:01 AM CDT [facility] Specific [place] 1.020 1.003 - 04/22/2018 [facility] Urine 1.035 9:01 AM CDT [facility] Blood Urine Moderate (A) NEG^Negat 04/22/2018 [facility] [place] 9:01 AM CDT [facility] pH Urine 7.0 5.0 - 7.0 04/22/2018 [facility] pH 9:01 AM CDT [facility] Protein Albumin Negative NEG^Negat 04/22/2018 [facility] Urine [place] mg/dL 9:01 AM CDT [facility] Urobilinogen 0.2 0.2 - 1.0 04/22/2018 [facility] Urine EU/dL 9:01 AM CDT [facility] Nitrite Urine Negative NEG^Negat 04/22/2018 [facility] [place] 9:01 AM CDT [facility] Leukocyte Trace (A) NEG^Negat 04/22/2018 [facility] Esterase Urine [place] 9:01 AM CDT CL[facility] Source Midstream 04/22/2018 [facility] Urine 8:55 AM CDT [facility] Specimen (Source) Anatomical Collection Method Collection Time Re ceived Time Location / / Volume Laterality Examination of 04/22/2018 8:53 04/22/2018 8:55 midstream urine AM CDT AM CDT specimen (procedure) Blank Lemos MD LAB - URINE ORDERABLES Performing Organization Address City/State/ZIP Code Phon e Number [facility] [address] [facility] [place] [phone] documented in this encounter Visit Diagnoses Diagnosis Dysuria - Primary Acute cystitis without hematuria Acute cystitis Other migraine without status migrainosu s, not intractable documented in this encounter Additional Health Concerns Assessment Noted Time PHQ-9 Depression Total Score: 7 02/07/2018 7:00 AM CDT documented as of this encounter Care Teams Investigative Shopper Relationship Specialty Start Date End Date Blank Lemos MD PCP - General Internal Medicine 04/22/18 [facility] KISHAN R[place] [id number] documented as of this encounter
--- OUTSIDE RECORDS SUMMARY | 2022-04-09 07:20 | XMS_ITS | Encounter Summary ---
:1990 Author Organization [place] Address [facility] [place] [address] Care Team Providers Name Role Phone Lalita Perez MD Primary Care Provider Reason for Visit Reason Comments Abnormal Bleeding Problem Encounter Details Date Type Department Care Team Description 01/28/2017 Office Visit [facility] [place], Abnormal u terine and vaginal bleeding, unspecified (Primary Dx); Clinic Dev Weinberg MD Cyst of ovary, unspecified laterality; [address] [facility] Migra ine without aura and without status migrainosus, not intractable [facility] [address] [place] [address] [place] [address] Social History Tobacco Use [...] Sign Reading Time Taken Comments Blood Pressure 102/70 01/28/2017 8:25 AM CDT Pulse 90 01/28/2017 8:25 AM CDT Temperature 37.5 ??C (99.5 ??F) 01/28/2017 8:25 AM CDT Respiratory Rate - - Oxygen Saturation 99% 01/28/2017 8:25 AM CDT Inhaled Oxygen Concentration - - Weight 74.3 kg (163 lb 14.4 oz) 01/28/2017 8:25 AM CDT Height - - Body Mass Index 28.8 12/22/2016 9:41 AM CDT documented in this encounter Patient Instructions Patient InstructionsSultana Fonseca MD - 01/28/2017 8:15 AM CDT 1) Labs today. We will call with abnormal results. 2) stop control 3) return to clinic in 2-4 weeks if worse/same to consider higher dose control, IUD, and ultrasound. For ibuprofen - 600mg every 6 hours with a full glass of water and preferably with some food. Can alternate with acetaminophen if possible. documented in this encounter Progress Notes Sultana Fonseca MD - 01/28/2017 8:15 AM CDT SUBJECTIVE: Rena Turner is a 27 year old female who presents to clinic today for the following health issues: Vaginal Bleeding (Dysmenorrhea) ?? Onset: 4 months ?? Description: Duration of bleeding episodes: 3 weeks Frequency between periods: Every week or gwo Describe bleeding/flow: Clots: Few Number of pads/hour: None Cramping: moderate ?? Intensity: moderate ?? Accompanying signs and symptoms: Pain in left ovary ?? History (similar episodes/previous evaluation): None ?? Precipitating or alleviating factors: None ?? Therapies tried and outcome: None HPI: Changes tampon every 4-6 hours. This started 3-4 months ago. Lost 40lbs from diet changes - cutout grains, corn. Was eating meat, cooked vegetables, and fruit. Started diet changes 10/08/16. At first missed a month of periods. Is on control. Topamax started one year ago. Migraines used to coincide with period, now haven't happened in a while. Surgery for endometriosis in [id number]. Ultrasounds very frequently to follow frequent ovarian cysts. Has cyst pain now - radiating pain on left lower quadrant goes down leg and up side. Has had thatpain for 4 days. Advil and hot packs help a little. Takes 800mg q6 hours. Not sexually active in a very long time and has had STD testing since her last intercourse. Has sex with men. 3 cigarettes per day, down from half pack. No tools for quitting, I'm just doing it. Problem list and histories reviewed & adjusted, as indicated. Additional history: as documented Patient Active Problem List Diagnosis ??? Generalized anxiety disorder ??? Bipolar I disorder (H) ??? Insomnia ??? Migraine without aura and without status migrainosus, not intractable ??? Non morbid obesity, unspecified obesity type Past Surgical History: Procedure Laterality Date ??? ABDOMEN SURGERY ??? TONSILLECTOMY Social History Substance Use Topics ??? Smoking status: Current Every Day Smoker Packs/day: 0.25 Years: 8.00 Types: Cigarettes ??? Smokeless tobacco: Never Used ??? Alcohol use No Family History Problem Relation Age of Onset ??? Unknown/Adopted Mother ??? Unknown/Adopted Father ??? DIABETES No family hx of Reviewed and updated as needed this visit by clinical staff Tobacco Allergies Meds Med Hx Surg Hx Fam Hx Soc Hx Reviewed and updated as needed this visit by Provider ROS: Constitutional, HEENT, cardiovascular, pulmonary, gi and gu systems are negative, except as otherwise noted. OBJECTIVE: BP 102/70 Pulse 90 Temp 99.5 ??F (37.5 ??C) (Oral) Wt 163 lb 14.4 oz (74.3 kg) LMP 01/25/2017 SpO2 99% BMI 28.8 kg/m2 Body mass index is 28.8 kg/(m^2). GENERAL: healthy, alert and no distress NECK: no adenopathy, no asymmetry, masses, or scars and thyroid normal to palpation RESP: lungs clear to auscultation - no rales, rhonchi or wheezes CV: regular rate and rhythm, normal S1 S2, no S3 or S4, no murmur, click or rub, no peripheral edemaand peripheral pulses strong ABDOMEN: soft, nontender, no hepatosplenomegaly, no masses and bowel sounds normal MS: no gross musculoskeletal defects noted, no edema PSYCH: mentation appears normal, affect normal/bright Diagnostic Test Results: Pending Hgb TSH Prolactin A1C ASSESSMENT/PLAN: Migraine: controlled Plan: No changes in the patient's current treatment plan Tobacco Cessation: reports that she has been smoking Cigarettes. She has a 2.00 pack-year smoking history. She has never used smokeless tobacco. Tobacco Cessation Action Plan: Information offered: Patient not interested at this time Patient quitting on her own without tools. (N93.9) Abnormal uterine and vaginal bleeding, unspecified (primary encounter diagnosis) Comment:Anovultory bleeding while on OCP. The topiramate heightens the metabolism of OCP making it less effective. However she has been on topiramate for 1 year so odd to have menstrual changes now. Given time course, likely culprit is AUB associated with recent rapid weight loss (40lbs over 4 months). Concern is that she has unopposed estrogen which overtime will put her at risk for endometrial cancer, and of course that this bleeding pattern is very unpleasant for her. Today will perform basic AUBlabs as well as advise stopping OCP. Return to clinic in 2-4 weeks if no help at which point I wouldconsider higher dose estrogen OCP (do not love this plan as she has migraines and smokes, risk for DVT is higher), IUD (patient uneasy about this but says she will consider), or pelvic ultrasound. Plan: Hemoglobin, Hemoglobin A1c, TSH with free T4 reflex, Prolactin Stop OCP, return to clinic in 2-4 weeks if worse or same. (N83.209) Cyst of ovary, unspecified laterality Comment: Per patient she has longstanding history of cysts. Per Care Everywhere, has 2 pelvic US. [id number], showed left cyst. In 2010, no cyst. Currently describing cyst day with a benign abdominal exam. Advised changing ibuprofen dose, alternating with acetaminophen. Hold off on US for now and consider repeat if represents with ongoing or worsening pain. Plan: ibuprofen 600mg tid with full glass of water (G43.009) Migraine without aura and without status migrainosus, not intractable Comment: Doing well, no changes to meds at this point. Would like to avoid going up on estrogen as above. Plan: No change to topiramate or imitrex at this time. Patient Instructions 1) Labs today. We will call with abnormal results. 2) stop control 3) return to clinic in 2-4 weeks if worse/same to consider higher dose control, IUD, and ultrasound. For ibuprofen - 600mg every 6 hours with a full glass of water and preferably with some food. Can alternate with acetaminophen if possible. Sultana Fonseca MD [facility] DEV I discussed this case in depth with Dr. Fonseca and agree with the alcantara components of the history,assessment and plan. Symptoms sound like anovulatory bleeding. Time brower likely related to rapid weight loss. Will check labs as above and try stopping OCP and see if able to regulate better with endogenous hormones. If does not improve, will likely need US and trial of higher dose estrogen ocp. Lily Encarnacion MD Internal Medicine/Pediatrics documented in this encounter Nursing Notes Aisha Theodore MA - 01/28/2017 8:15 AM CDT Chief Complaint Patient presents with ??? Abnormal Bleeding Problem Initial BP 102/70 Pulse 90 Temp 99.5 ??F (37.5 ??C) (Oral) Wt 163 lb 14.4 oz (74.3 kg) LMP 01/25/2017 SpO2 99% BMI 28.8 kg/m2 Estimated body mass index is 28.8 kg/(m^2) as calculated from the following: Height as of 12/22/16: 5' 3.25 (1.607 m). Weight as of this encounter: 163 lb 14.4 oz (74.3 kg). Medication Reconciliation: zohreh Varela M.A. documented in this encounter Plan of Treatment Not on filedocumented as of this encounter Procedures Procedure Name Priority Date/Time Associated Diagnosis Comme nts TSH WITH FREE T4 Routine 01/28/2017 9:12 AM Abnormal uterine a nd Results for this REFLEX CDT vaginal bleeding, procedure are in unspecified the results section. PROLACTIN Routine 01/28/2017 9:12 AM Abnormal uterine and R esults for this CDT vaginal bleeding, procedure are in unspecified the results section. HEMOGLOBIN A1C Routine 01/28/2017 9:12 AM Abnormal uterine and Results for this CDT vaginal bleeding, procedure are in unspecified the results section. HEMOGLOBIN Routine 01/28/2017 9:12 AM Abnormal uterine and R esults for this CDT vaginal bleeding, procedure are in unspecified the results section. documented in this encounter Results Prolactin (01/28/2017 9:12 AM CDT) athologist Signature Prolactin 10 3 - 27 ug/L [facility] Comment: Reference ranges apply to non-p regnant females only. Specimen Anatomical Collection Method Collection Time Receive d Time (Source) Location / / Volume Laterality Blood specimen 01/28/2017 9:12 AM 017 9:17 (specimen) CDT AM CDT Lily Encarnacion MD LAB - BLOOD ORDERABLES Performing Organization Address City/[facility]/ZIP Code Phon e Number [facility] [address] [place] [address] [facility] TSH with free T4 reflex (01/28/2017 9:12 AM CDT) athologist Signature TSH 1.52 0.40 - 4.00 [facility] mU/L [facility] Specimen Anatomical Collection Method Collection Time Receive d Time (Source) Location / / Volume Laterality Blood specimen 01/28/2017 9:12 AM 017 9:17 (specimen) CDT AM CDT Lily Encarnacion MD LAB - BLOOD ORDERABLES Performing Organization Address City/[facility]/ZIP Code Phon e Number [facility] [address] [place] [address] Hemoglobin A1c (01/28/2017 9:12 AM CDT) P athologist Signature Hemoglobin A1C 5.0 4.3 - 6.0 [place] % [facility] Specimen Anatomical Collection Method Collection Time Receive d Time (Source) Location / / Volume Laterality Blood specimen 01/28/2017 9:12 AM 017 9:17 (specimen) CDT AM CDT Lily Encarnacion MD LAB - BLOOD ORDERABLES Performing Organization Address [facility]/ZIP Code Phon e Number [address] [address] [phone] Hemoglobin (01/28/2017 9:12 AM CDT) athologist Signature Hemoglobin 13.5 11.7 - 15.7 [place] g/dL [facility] Specimen Anatomical Collection Method Collection Time Receive d Time (Source) Location / / Volume Laterality Blood specimen 01/28/2017 9:12 AM 017 9:17 (specimen) CDT AM CDT Lily Encarnacion MD LAB - BLOOD ORDERABLES Performing Organization Address City/[facility] Phon e Number [address] [address] [phone] documented in this encounter Visit Diagnoses Diagnosis Abnormal uterine and vaginal bleeding, u nspecified - Primary Cyst of ovary, unspecified laterality Migraine without aura and without status migrainosus, not intractable Migraine without aura, without mention o f intractable migraine without mention of status migrainosus documented in this encounter Additional Health Concerns Assessment Noted Time PHQ-9 Depression Total Score: 14 04/11/2016 7:23 AM CD T documented as of this encounter Care Teams Ophthalmic Nurse Relationship Specialty Start Date End Date Lalita Perez MD PCP - General Student in organized health 10/21/1404/21 care education/training program documented as of this encounter
--- OUTSIDE RECORDS SUMMARY | 2022-04-09 07:20 | XMS_ITS | Encounter Summary ---
:1990 Author Organization [place] Address [facility] [place] [address] Care Team Providers Name Role Phone Blank Lemos MD Primary Care Provider Blank Lemos MD Unavailable Blank Lemos MD Unavailable Hardeep Cárdenas Unavailable Unavailable Encounter Details Date Type Department Care Team Description 09/28/2018 Result Follow [facility] Blank Lemos Dx: Papa nicolaou smear Up Clinic Dev Camp MD of cervix with low grade [address] [place] squamous i ntraepithelial [facility] DR lesion (LGSIL) [address] [place] [address] [place] [phone] [phone] (Work) [phone] Social History Tobacco Use Types Packs/Day Years [...] documented as of this encounter Progress Notes Michelle Murrieta RN - 09/28/2018 2:41 PM CST 09/22/18 LSIL, +HR HPV, not 16/18. Plan [place] by 12/20/18 09/29/18 Patient has been notified of results and recommendations. 10/07/18 [place]- No lesions seen, no Bx taken. Plan 1 yr co-test, due by 09/22/19. 09/07/19 [employer] reminder message sent. ([facility]) 03/05/20 CCT tracking. ([facility]) documented in this encounter Plan of Treatment Not on filedocumented as of this encounter Visit Diagnoses Diagnosis Papanicolaou smear of cervix with low gr asiya squamous intraepithelial lesion (LGSIL) documented in this encounter Additional Health Concerns Assessment Noted Time PHQ-9 Depression Total Score: 4 09/22/2018 3:08 PM JUVENILE CORRECTIONS OFFICER documented as of this encounter Care Teams Plastic Fabricator Relationship Specialty Start Date End Date Blank Lemos, PCP - General Internal Medicine [facility] [place] [phone] Blank Lemos, PCP - Assigned PCP 04/25/18 [facility] [place] [phone] Blank Lemos, Assigned PCP 04/25/[address] [place] [address] [place] [id number] Hardeep Cárdenas Personal Advocate & 06/17/1901/30 Liaison (PAL) documented as of this encounter
--- OUTSIDE RECORDS SUMMARY | 2022-04-09 07:20 | XMS_ITS | Encounter Summary ---
:1990 Author Organization [place] Address [address] [facility] [place] [address] Care Team Providers Name Role Phone Blank Lemos MD Primary Care Provider Blank Lemos MD Unavailable Hardeep Cárdenas Unavailable Unavailable Reason for Visit Reason Comments Urgent Care Ear Problem Ear pain in both ears for 2 months. Patient finished antibiotic and it is still not better. Encounter Details Date Type Department Care Team Description 07/26/2019 [facility], Middle ear effusion, Urgent Care Dev Wiggins, KAILEE bilateral (Primary Dx) [address] [place] [place] [address] [phone] [place] [phone] Social History Tobacco Use [...] Sign Reading Time Taken Comments Blood Pressure 104/72 07/26/2019 5:23 PM POULTRY DRESSING WORKER Pulse 56 07/26/2019 5:23 PM POULTRY DRESSING WORKER Temperature 36.9 ??C (98.5 ??F) 07/26/2019 5:23 PM POULTRY DRESSING WORKER Respiratory Rate - - Oxygen Saturation 98% 07/26/2019 5:23 PM POULTRY DRESSING WORKER Inhaled Oxygen Concentration - - Weight - - Height - - Body Mass Index - - documented in this encounter Patient Instructions Patient InstructionsRosalie Shoemaker NP - 07/26/2019 4:25 PM CST Images from the original note were not included. Keep using Flonase and Claritin daily as you have been. Add plain Mucinex 1 tablet every 12 hours for the next 3-4 days then as needed Return for any sudden, severe symptoms- see handout. If pain does not improve over the next week, see your primary care provider. Patient Education Common Middle Ear Problems Your middle ear may have been injured or infected recently. Over time, certain growths or bone disease can also harm the middle ear. Left untreated, middle ear problems often lead to lifelong hearing loss. There are??two types of hearing loss: conductive and sensorineural. One or both kinds can occur.Injury, infection, certain growths, or bone disease can cause your symptoms. A ruptured eardrum or along-lasting (chronic) ear infection may be painful and decrease hearing. Symptoms ?? Hearing loss in??one or both ears ?? Fluid, often smelly, draining from the ear ?? Pain, pressure, or discomfort in the ear ?? Ringing in the ear Conductive and sensorineural hearing loss Sound waves may be disrupted before they reach the inner ear. If this happens, conductive hearing loss may occur. The ear canal can be blocked by wax, infection, a tumor, or a foreign object. The eardrum can be injured or infected. Abnormal bone growth, infection, or tumors in the middle ear can blocksound waves. Sound waves may not be processed correctly in the inner ear. If this happens, sensorineural hearing loss may occur. Permanent hearing loss is most commonly associated with sensorineural problems. The tests and evaluations used to diagnose what type of hearing problem you have will depend on yoursymptoms.?? Date Last Reviewed: 05/10/2016 ?? [phone] [employer]. [address] [place] [address], [place] [address]. All rights reserved. This information is not intended as a substitute for professional medical care. Always follow your healthcare professional's instructions. TRY DRESSING WORKER documented in this encounter Progress Notes Rosalie Shoemaker NP - 07/26/2019 4:25 PM CST SUBJECTIVE: Rena Turner is a 29 year old female presenting with a chief complaint of bilateral ear pain for the past 2 weeks. Was seen for this prior and was placed on Augmentin. When this proved to be ineffective, she was placed on Cefdinir 4 days ago. She is still having sharp bilateral ear pain. Has tried ibuprofen with minimal effect. Denies any drainage from the ears, ringing in the ears. Ears feel full and pain is intermittently sharp. Is taking Flonase and Claritin daily for allergies. Can not use Sudafed since it makes her feel anxious. Past Medical History: Diagnosis Date ??? Abnormal Pap smear of cervix 09/22/2018 See problem list ??? Bipolar disorder (H) ??? Cervical high risk HPV (human papillomavirus) test positive 09/22/2018 ??? Depression with anxiety ??? Generalized anxiety disorder Current Outpatient Medications Medication Sig Dispense Refill ??? cefdinir (OMNICEF) 300 MG capsule Take 1 capsule (300 mg) by mouth 2 times daily for 10 days 20 capsule 0 ??? escitalopram (LEXAPRO) 20 MG tablet TAKE 1 TABLET BY MOUTH EVERY DAY 90 tablet 0 ??? loratadine (CLARITIN) 10 MG capsule Take 10 mg by mouth daily ??? SUMAtriptan (IMITREX) 25 MG tablet TAKE 1 TO 2 TABLETS BY MOUTH AT ONSET OF MIGRAINE. MAY REPEATIN 2 HOURS. MAX OF 8 TABLETS PER 24 HOURS. 18 tablet 3 ??? topiramate (TOPAMAX) 100 MG tablet Take 1 tablet (100 mg) by mouth 2 times daily 180 tablet 3 ??? amoxicillin-clavulanate (AUGMENTIN) 875-125 MG tablet Take 1 tablet by mouth 2 times daily (Patient not taking: Reported on 07/26/2019) 20 tablet 0 Social History Tobacco Use ??? Smoking status: Current Every Day Smoker Packs/day: 0.25 Years: 8.00 Pack years: 2.00 Types: Cigarettes ??? Smokeless tobacco: Never Used Substance Use Topics ??? Alcohol use: No Alcohol/week: 0.0 standard drinks ROS: Review of systems negative except as stated above. OBJECTIVE: BP 104/72 Pulse 56 Temp 98.5 ??F (36.9 ??C) SpO2 98% GENERAL APPEARANCE: healthy, alert and no distress EYES: EOMI, PERRL, conjunctiva clear HENT: ear canals with TM's lightly pink, but landmarks visible. Nose and mouth without ulcers, erythema or lesions NECK: supple, nontender, no lymphadenopathy RESP: lungs clear to auscultation - no rales, rhonchi or wheezes CV: regular rates and rhythm, normal S1 S2, no murmur noted SKIN: no suspicious lesions or rashes ASSESSMENT: Hx of recent bilateral AOM on Cefdinir. Eustachian tube dysfunction Middle ear effusions PLAN: Keep using Flonase and Claritin daily as you have been. Add plain Mucinex 1 tablet every 12 hours for the next 3-4 days then as needed Return for any sudden, severe symptoms- see handout. If pain does not improve over the next week, see your primary care provider. See orders in Epic TRY DRESSING WORKER documented in this encounter Nursing Notes Georgie Kmi CMA - 07/26/2019 4:25 PM CST Chief Complaint Patient presents with ??? Urgent Care ??? Ear Problem Ear pain in both ears for 2 months. Patient finished antibiotic and it is still not better. S NIA KIM TRY DRESSING WORKER documented in this encounter Plan of Treatment Not on filedocumented as of this encounter Visit Diagnoses Diagnosis Middle ear effusion, bilateral - Primary documented in this encounter Additional Health Concerns Assessment Noted Time PHQ-9 Depression Total Score: 4 09/22/2018 3:08 PM POULTRY DRESSING WORKER documented as of this encounter Care Teams Motor Inspection Mechanic Relationship Specialty Start Date End Date Blank Lemos, PCP - General Internal Medicine [facility]22[facility]18 [facility] [address] [place], [place]AN [phone] Blank Lemos, Assigned PCP 04/25/18 [facility] [place] [phone] Hardeep Cárdenas Personal Advocate & 06/17/1901/30 Liaison (PAL) documented as of this encounter
--- OUTSIDE RECORDS SUMMARY | 2022-04-09 07:20 | XMS_ITS | Encounter Summary ---
:1990 Author Organization [place] Address [facility] [place] [address] Care Team Providers Name Role Phone Lalita Perez MD Primary Care Provider Reason for Visit Reason Comments Medication Refill escitalopram (LEXAPRO) 20 MG tablet Encounter Details Date Type Department Care Team Description [facility]/05/[facility] Dev Reyes MD (escitalopram (LEXAPRO) [facility] [facility] 20 MG tab let) [facility] [address] [facility] [place] [address] [place] [address] (Wo rk) Social History Tobacco Use Types Packs/Day Years [...] this encounter Miscellaneous Notes Telephone Encounter - Lily Encarnacion MD - 02/11/2018 1:04 PM CDT Ok to fill. rx sent. Lily Encarnacion MD Internal Medicine/Pediatrics Telephone Encounter - Nadine Menjivar RN - 02/11/2018 11:30 AM CDT 02/06/18-PHQ-9 score is 7. PHQ-9 score in Aug 2017 was 15 Routing refill request to provider for review/approval because: PHQ-9 score is outside of RN refill parameters. Charanjit Menjivar RN Telephone Encounter - Brii Odonnell RN - 02/05/2018 3:46 PM CDT Sent PHQ-9 via [employer]. Brii Vazquez RN, BSN, N [facility] RN Telephone Encounter - Douglas James - 02/05/2018 3:42 PM CDT Requested Prescriptions Pending Prescriptions Disp Refills ??? escitalopram (LEXAPRO) 20 MG tablet [Pharmacy Med Name: ESCITALOPRAM 20MG TABLETS] Last Written Prescription Date: 08/17/17 Last Fill Quantity: 90 TABLET, # refills: 1 Last office visit: 08/17/2017 with prescribing provider: JERRY Future Office Visit: 90 tablet 0 Sig: TAKE 1 TABLET(20 MG) BY MOUTH DAILY SSRIs Protocol Passed 02/05/2018 3:32 PM PHQ-9 SCORE 2015 04/10/2016 08/17/2017 Total Score 25 - - Total Score - 14 15 GABRIEL-7 SCORE 04/10/2016 08/17/2017 Total Score 11 13 Passed - Recent (12 mo) or future (30 days) visit within the authorizing provider's specialty Patient had office visit in the last 12 months or has a visit in the next 30 days with authorizing provider or within the authorizing provider's specialty. See Patient Info tab in inbasket, or Choose Columns in Meds & Orders section of the refill encounter. Passed - Patient is age 18 or [...] Noted Time PHQ-9 Depression Total Score: 15 08/17/2017 5:09 PM CS T documented as of this encounter Care Teams Auxiliary Equipment Tender Relationship Specialty Start Date End Date Lalita Perez MD PCP - General Student in [facility] health 10/21/1404/21 care education/training program documented as of this encounter
--- OUTSIDE RECORDS SUMMARY | 2022-04-09 07:20 | XMS_ITS | Encounter Summary ---
:1990 Author Organization [place] [facility] [place] [address] Care Team Providers Name Role Phone Blank Lemos MD Primary Care Provider Blank Lemos MD Unavailable Reason for Visit Reason Comments Medication Refill SUMAtriptan (IMITREX) 25 MG tablet Encounter Details Date Type Department Care Team Description 06/16/2019 Refill [facility] Blank [place] dication Refill Clinic Dev [place] (SUMAtriptan (IMITREX) [address] [facility] 25 MG tablet) [facility] [address] [place] [address] [place] [address] [phone] Social History Tobacco Use Types Packs/Day Years [...] this encounter Miscellaneous Notes Telephone Encounter - Lalita Merritt - 06/16/2019 10:44 AM CST Requested Prescriptions Pending Prescriptions Disp Refills ??? SUMAtriptan (IMITREX) 25 MG tablet [Pharmacy Med Name: SUMATRIPTAN 25MG TABLETS] Last Written Prescription Date: 04/22/2018 Last Fill Quantity: 18, # refills: 3 Last office visit: 09/22/2018 with prescribing provider: Blank Lemos Future Office Visit: 18 tablet 0 Sig: TAKE 1 TO 2 TABLETS BY MOUTH AT ONSET OF MIGRAINE. MAY REPEAT IN 2 HOURS. MAX OF 8 TABLETS PER24 HOURS. Serotonin Agonists Failed - 06/16/2019 10:20 AM Failed - Serotonin Agonist request needs review. Please review patient's record. If patient has had 8 or more treatments in the past month, please forward to provider. Passed - Blood pressure under 140/90 in past 12 months BP Readings from Last 3 Encounters: 10/07/18 114/80 09/22/18 108/66 04/29/18 116/64 Passed - Recent (12 mo) or future [...] record Passed - No positive test in past 12 months INTERN documented in this encounter Plan of Treatment Not on filedocumented as of this encounter Visit Diagnoses Diagnosis Other migraine without status migrainosu s, not intractable documented in this encounter Additional Health Concerns Assessment Noted Time PHQ-9 Depression Total Score: 4 09/22/2018 3:08 PM PAID INTERN documented as of this encounter Care Teams Patient Flow Coordinator Relationship Specialty Start Date End Date Blank Lemos MD PCP - General Internal Medicine 04/22/[address] [place] [address] KISHAN RENO [phone] Blank Lemos MD Assigned PCP 04/25/[address] [place] [address] K[place] RENO [phone] documented as of this encounter
--- OUTSIDE RECORDS SUMMARY | 2022-04-09 07:20 | XMS_ITS | Encounter Summary ---
:1990 Author Organization [place] [facility] [place] [address] Care Team Providers Name Role Phone Blank Lemos MD Primary Care Provider Blank Lemos MD Unavailable Hardeep Cárdenas Unavailable Unavailable Reason for Visit Reason Comments Medication Refill Encounter Details Date Type Department Care Team Description 07/27/2019 Refill [facility] Blank Oliveros MD Medication Refill Dev [address] [facility] [address] [place] [address] [address] [place] [address] [phone] Social History Tobacco Use Types Packs/Day Years [...] this encounter Miscellaneous Notes Telephone Encounter - Tony Huang RN - 07/28/2019 11:13 AM CST Requested Prescriptions Pending Prescriptions Disp Refills ??? escitalopram (LEXAPRO) 20 MG tablet [Pharmacy Med Name: ESCITALOPRAM 20MG TABLETS] 90 tablet 0 Sig: TAKE 1 TABLET BY MOUTH EVERY DAY SSRIs Protocol Passed - 07/28/2019 11:13 AM Passed - Recent (12 mo) or future [...] No positive test in last 12 months Prescription approved per [facility] Refill Protocol. Tony Huang RN, BSN, PHN ROLL MACHINE OFFBEARER documented in this encounter Plan of Treatment Not on filedocumented as of this encounter Visit Diagnoses Diagnosis Generalized anxiety disorder Bipolar I disorder (H) Bipolar I disorder, most recent episode (or current) unspecified documented in this encounter Additional Health Concerns Assessment Noted Time PHQ-9 Depression Total Score: 4 09/22/2018 3:08 PM CUT ROLL MACHINE OFFBEARER documented as of this encounter Care Teams Plasma Processing Technician Relationship Specialty Start Date End Date Blank Lemos, PCP - General Internal Medicine 04/22/18 MD [facility] [place] [id number] Blank Lemos, Assigned PCP 04/25/18 MD [facility] [place] [id number] Hardeep Cárdenas Personal Advocate & 06/17/1901/30 Liaison (PAL) documented as of this encounter
--- OUTSIDE RECORDS SUMMARY | 2022-04-09 07:20 | XMS_ITS | Encounter Summary ---
:1990 Author Organization [place] [facility] [place] [address] Care Team Providers Name Role Phone Lalita Perez MD Primary Care Provider Reason for Visit Reason Onset Date Comments Refill Request 10/18/2016 SUMATRIPTAN (IMITREX ) 25MG Encounter Details Date Type Department Care Team Description 10/18/[address] [facility] Lalita Perez MD Refill Request Clinic [facility] (SUMATRIPTAN (IMITREX) [address] [facility] 25MG) [facility] [address] [place] [address] [place] [address] [phone] Social History Tobacco Use Types Packs/Day Years [...] Telephone Encounter - Vandana Sosa RN - 10/23/2016 9:09 AM CDT Prescription approved per [facility] Refill Protocol. Vandana Sosa RN Telephone Encounter - Marilee Olvia - 10/18/2016 1:53 PM CST SUMATRIPTAN (IMITREX) 25MG Last Written Prescription Date: 05/08/2016 Last Fill Quantity: 18, # refills: 1 Last Office Visit with [facility], [facility] or [facility] prescribing provider: 08/28/2016 BP Readings from Last 3 Encounters: 08/28/16 111/77 08/15/16 110/70 08/05/16 112/70 SITE documented in this encounter Plan of Treatment Not on filedocumented as of this encounter Visit Diagnoses Diagnosis Other migraine without status migrainosu s, not intractable documented in this encounter Additional Health Concerns Assessment Noted Time PHQ-9 Depression Total Score: 14 04/11/2016 7:23 AM CD T documented as of this encounter Care Teams Vacuum Truck Driver Relationship Specialty Start Date End Date Lalita Perez MD PCP - General Student in organized health 10/21/1404/21 care education/training program documented as of this encounter
--- OUTSIDE RECORDS SUMMARY | 2022-04-09 07:20 | XMS_ITS | Encounter Summary ---
:1990 Author Organization [place] Address [facility] [place] [address] Care Team Providers Name Role Phone Blank Lemos MD Primary Care Provider Blank Lemos MD Unavailable Blank Lemos MD Unavailable Reason for Visit Reason Onset Date Comments Refill Request 09/01/2018 topiramate (TOPAMAX) 100 MG tablet Encounter Details Date Type Department Care Team Description 09/01/2018 Refill [facility] Lily Refill R equ[facility] Clinic Dev Reyes MD (topiramate (TOPAMAX) [address] [facility] 100 MG ta blet) [facility] [address] [facility] [place] [phone] (Wo rk) Social History Tobacco Use [...] Encounter - Ana Maria Daniels MA - 09/02/2018 11:10 AM CST Called and got patient scheduled. Ana Maria Daniels MA 11:11 AM 09/02/2018 [place] Telephone Encounter - Lily Mann RN - 09/02/2018 7:54 AM CAR [place] 30 day supply given. Patient is due for yearly physical and lab work. Please call and assist with scheduling appointment prior to next refill Lily Donohue RN - [facility] [place] Telephone Encounter - HollyFaiza - 09/01/2018 1:24 PM CST Requested Prescriptions Pending Prescriptions Disp Refills ??? topiramate (TOPAMAX) 100 MG tablet [Pharmacy Med Name: TOPIRAMATE 100MG TABLETS] Last Written Prescription Date: 08/17/2017 Last Fill Quantity: 180 tablet, # refills: 3 Last office visit: 04/22/2018 with prescribing provider: Blank Lemos MD Future Office Visit: 180 tablet 0 Sig: TAKE 1 TABLET BY MOUTH TWICE DAILY. Anti-Seizure Meds Protocol Failed - 09/01/2018 1:15 PM Failed - Review Authorizing provider's last [...] No positive test in last 12 months COOPER documented in this encounter Plan of Treatment [...] as of this encounter Care Teams Network Designer Relationship Specialty Start Date End Date Blank Lemos MD PCP - General Internal Medicine 04/22/[address] [place] [address] KISHAN RENO [phone] Blank Lemos MD PCP - Assigned PCP 04/25/18 10/12/[address] [place] [address] [place] [phone] Blank Lemos MD Assigned PCP 04/25/[address] [place] [address] [place] [phone] documented as of this encounter
--- OUTSIDE RECORDS SUMMARY | 2022-04-09 07:20 | XMS_ITS | Encounter Summary ---
:1990 Author Organization [place] Address [facility] [place] [address] Care Team Providers Name Role Phone Lalita Perez MD Primary Care Provider Reason for Visit Reason Comments Anxiety Depression Encounter Details Date Type Department Care Team Description 08/17/2017 Office Visit [facility] Lily Encarnacion anxiety disorder; Clinic Dev Reyes MD Bipolar I disorder (H); [address] [facility] Migraine without aura and without status migrainosus, not intractable [facility] [address] [place] [address] [address] [phone] [place], [place] [address] Social History Tobacco Use Types Packs/Day Years [...] Sign Reading Time Taken Comments Blood Pressure 100/64 08/17/2017 4:47 PM ARTIFICIAL BREEDING RANCH SUPERVISOR Pulse 86 08/17/2017 4:47 PM ARTIFICIAL BREEDING RANCH SUPERVISOR Temperature 36.9 ??C (98.4 ??F) 08/17/2017 4:47 PM ARTIFICIAL BREEDING RANCH SUPERVISOR Respiratory Rate - - Oxygen Saturation 99% 08/17/2017 4:47 PM ARTIFICIAL BREEDING RANCH SUPERVISOR Inhaled Oxygen Concentration - - Weight 73.3 kg (161 lb 11.2 oz) 08/17/2017 4:47 PM ARTIFICIAL BREEDING RANCH SUPERVISOR Height 161.3 cm (5' 3.5) 08/17/2017 4:47 PM ARTIFICIAL BREEDING RANCH SUPERVISOR Body Mass Index 28.19 08/17/2017 4:47 PM ARTIFICIAL BREEDING RANCH SUPERVISOR documented in this encounter Patient Instructions Patient InstructionsSerumLily MD - 08/17/2017 4:40 PM ARTIFICIAL BREEDING RANCH SUPERVISOR 1. Refilled lexapro for 6 months - can complete depression screen over the phone or mychart in 6 months if doing well and refill 2. If not improving, would refer to Psychiatric Nurse practitioner in [place] to discuss other options 3. Refilled topamax 4. Follow-up in 1 year FICIAL BREEDING RANCH SUPERVISOR documented in this encounter Progress Notes Lily Encarnacion MD - 08/17/2017 4:40 PM CST SUBJECTIVE: Rena Turner is a 27 year old female who presents to clinic today for the following health issues: Depression and Anxiety Follow-Up ?? Status since last visit: No change ?? Other associated symptoms:None ?? Complicating factors: ?? Significant life event: Yes- Grandmother 2.5 weeks ago ?? Current substance abuse: None Patient with history of bipolar disorder and anxiety. Has been on multiple medications in the past and has done the best with lexapro. Last seen for this 04/2016 and referred to psychiatry but did not go. [place] had good response to Lexapro and feels was doing well with this until grandmother passed away2.5 weeks ago. She feels she will regain adequate control once done grieving. No side effects from Lexapro. Has some brief episodes of hypomania occasionally but reports these are tolerable. PHQ-9 Score and MyChart F/U Questions 04/10/2016 08/17/2017 Total Score 14 15 Q9: Suicide Ideation Several days Several days GABRIEL-7 SCORE 04/10/2016 08/17/2017 Total Score 11 13 PHQ-9 Gabonese PHQ-9 Any Language GAD7 Suicide Assessment Five-step Evaluation and Treatment (SAFE-T) ?? Amount of exercise or physical activity: 1 day/week for an average of 15-30 minutes ?? Problems taking medications regularly: No ?? Medication side effects: none ?? Diet: gluten-free/reduced Reviewed and updated as needed this visit by clinical staffTobacco Allergies Meds Problems Med Hx Surg Hx Fam Hx Soc Hx Reviewed and updated as needed this visit by Provider Allergies Meds Problems ROS: Constitutional, HEENT, cardiovascular, pulmonary, gi and gu systems are negative, except as otherwise noted. OBJECTIVE: BP 100/64 (BP Location: Right arm, Patient Position: Chair, Cuff Size: Adult Regular) Pulse 86 Temp 98.4 ??F (36.9 ??C) (Tympanic) Ht 5' 3.5 (1.613 m) Wt 161 lb 11.2 oz (73.3 kg) SpO2 99% BMI 28.19 kg/m2 Body mass index is 28.19 kg/(m^2). General Appearance: healthy, alert and no distress Eyes: no discharge, erythema. Normal pupils. Respiratory: lungs clear to auscultation - no rales, rhonchi or wheezes. Cardiovascular: regular rate and rhythm, normal S1 S2, no S3 or S4 and no murmur, click or rub. No peripheral edema. Skin: no rashes or lesions. Well perfused and normal turgor. Psychiatric: affect flat Diagnostic Test Results: none ASSESSMENT/PLAN: (F41.1) Generalized anxiety disorder (F31.9) Bipolar I disorder (H) Comment: patient reports good control; however worsened with grandmothers . Infrequent hypomania Plan: escitalopram (LEXAPRO) 20 MG tablet - pt wishes to continue the lexapro - discussed risk for emiliano - if does not improve with grieving or if worsening symptoms. Would recommend referral to collaborative psychiatry. Patient is ok with this - will update PHQ9 in 6 months via phone/mychart if doing well - f/u in clinic in 1 year (G43.009) Migraine without aura and without status migrainosus, not intractable Comment: controlled. Off ocps, but not sexually active Plan: topiramate (TOPAMAX) 100 MG tablet - refilled topamax - discussed risks for defects - will let me know if needs refill on imitrex - has some at home and not covered well by insurance. BMI: Estimated body mass index is 28.19 kg/(m^2) as calculated from the following: Height as of this encounter: 5' 3.5 (1.613 m). Weight as of this encounter: 161 lb 11.2 oz (73.3 kg). Weight management plan: Discussed healthy diet and exercise guidelines and patient will follow up in12 months in clinic to re-evaluate. Follow up with Provider - 1 year - sooner if not controlled Lily Encarnacion [facility] DEV FICIAL BREEDING RANCH SUPERVISOR documented in this encounter Nursing Notes Saira Singh LPN - 08/17/2017 4:40 PM CST Chief Complaint Patient presents with ??? Anxiety ??? Depression Initial BP 100/64 (BP Location: Right arm, Patient Position: Chair, Cuff Size: Adult Regular) Pulse 86 Temp 98.4 ??F (36.9 ??C) (Tympanic) Ht 5' 3.5 (1.613 m) Wt 161 lb 11.2 oz (73.3 kg) SpO2 99% BMI 28.19 kg/m2 Estimated body mass index is 28.19 kg/(m^2) as calculated from the following: Height as of this encounter: 5' 3.5 (1.613 m). Weight as of this encounter: 161 lb 11.2 oz (73.3 kg). Medication Reconciliation: zohreh Singh LPN FICIAL BREEDING RANCH SUPERVISOR documented in this encounter Plan of [...] documented as of this encounter Care Teams Propeller Layout Worker Relationship Specialty Start Date End Date Lalita Perez MD PCP - General Student in [facility] health 10/21/1404/21 care education/training program documented as of this encounter
--- OUTSIDE RECORDS SUMMARY | 2022-04-09 07:20 | XMS_ITS | Encounter Summary ---
:1990 Author Organization [place] Address [address] [facility] [place] [address] Care Team Providers Name Role Phone Blank Lemos MD Primary Care Provider Blank Lemos MD Unavailable Blank Lemos MD Unavailable Reason for Visit Reason Comments Urgent Care Urinary Problem possible uti; dysuria at end of urination. Was treated x 1 month ago Pharyngitis neck, throat, and ear pain Encounter Details Date Type Department Care Team Description 04/29/2018 Office Visit [facility] Phillip Crowder Dysuria (Primary Dx); Urgent Care Dev Bob PA-C Throat pain [address] [place] [id number] [place] [address] [address] [address] [place] [phone] Social History Tobacco Use Types Packs/Day Years [...] Sign Reading Time Taken Comments Blood Pressure 116/64 04/29/2018 4:04 PM CDT Pulse 71 04/29/2018 4:04 PM CDT Temperature 36.7 ??C (98.1 ??F) 04/29/2018 4:04 PM CDT Respiratory Rate - - Oxygen Saturation 99% 04/29/2018 4:04 PM CDT Inhaled Oxygen Concentration - - Weight - - Height - - Body Mass Index - - documented in this encounter Patient Instructions Patient InstructionsPhillip Alas PA-C - 04/29/2018 5:38 PM CDT Images from the original note were not included. Dysuria Painful urination (dysuria) is often caused by a problem in the urinary tract. Dysuria is pain felt during urination. It is often described as a burning. Learn more about this problem and how it can be treated. What causes dysuria? Possible causes include: ?? Infection with a bacteria or virus such as a urinary tract infection (UTI or a sexually transmitted??infection (STI) ?? Sensitivity or allergy to chemicals such as those found in lotions and other products ?? Prostate or bladder problems ?? Radiation therapy to the pelvic area How is dysuria diagnosed? Your healthcare provider will examine you. He or she will ask about your symptoms and health. After talking with you and doing a physical exam, your healthcare provider may know what is causing your dysuria. He or she will usually request?? a sample of your urine. Tests of your urine, or a urinalysis, are done. A urinalysis may include: ?? Looking at the urine sample (visual exam) ?? Checking for substances (chemical exam) ?? Looking at a small amount under a microscope (microscopic exam) Some parts of the urinalysis may be done in the provider's office and some in a lab. And, the urine sample may be checked for bacteria and yeast (urine culture).??Your healthcare provider will tell youmore about these tests if they are needed. How is dysuria treated? Treatment depends on the cause. If you have a bacterial infection, you may need antibiotics. You maybe given medicines to make it easier for you to urinate and help relieve pain. Your healthcare provider can tell you more about your treatment options. Untreated, symptoms may get worse. When to call your healthcare provider Call the healthcare provider right away if you have any of the following: ?? Fever of??100.4??F??(38??C) or higher? No improvement after three days of treatment ?? Trouble urinating because of pain ?? New or increased discharge from the vagina or penis ?? Rash or joint pain ?? Increased back or abdominal pain ?? Enlarged painful lymph nodes (lumps) in the groin Date Last Reviewed: 08/10/2016 ?? [id number] [employer]. [address] [place] [address]. All rights reserved. This information is not intended as a substitute for professional medical care. Always follow your healthcare professional's instructions. documented in this encounter Progress Notes Phillip Alas PA-C - 04/29/2018 3:30 PM CDT SUBJECTIVE: Rena Turner is a 28 year old female who presents for evaluation of sore throat and dysuria. 1. Sore throat: The patient reports onset of sore throat beginning four days ago. She notes associated anterior swollen lymph nodes, pain on swallowing, bilateral ear pain, headache, mild congestion, and mild cough. She notes that her boyfriend has a cold currently. She states that she has been using cough drops, ibuprofen, and nyquil without much relief of her symptoms. She is concerned for strep throat. 2. Dysuria: The patient reports onset of dysuria beginning 3.5 weeks ago. She states that she went to see her PCP 7 days ago, and was diagnosed with a presumed UTI despite relatively normal UA. She wasstarted on Macrobid, which she took for 5 days, and then with ongoing symptoms, she was started on a3 days course of Cipro, which she finished today. She states that she is still having ongoing dysuria, but notes that she is no longer having hematuria. Review Of Systems Constitutional: Negative for fever, chills Ears/Nose/Throat: Positive for dysphagia, bilateral ear pain, mild congestion. Negative for rhinorrhea. Respiratory: Positive for shortness of breath, cough Cardiovascular: Negative for chest pain Genitourinary: Positive for dysuria, bilateral flank pain. Negative for hematuria, frequency, urgency. Hematologic/Lymphatic/Immunologic: Positive for anterior lymphadenopathy Past Medical History: Diagnosis Date ??? Bipolar disorder (H) ??? Depression with anxiety ??? Generalized anxiety disorder Current Outpatient Prescriptions Medication ??? escitalopram (LEXAPRO) 20 MG tablet ??? loratadine (CLARITIN) 10 MG capsule ??? SUMAtriptan (IMITREX) 25 MG tablet ??? topiramate (TOPAMAX) 100 MG tablet ??? ciprofloxacin (CIPRO) 250 MG tablet ??? nitroFURantoin, macrocrystal-monohydrate, (MACROBID) 100 MG capsule No current facility-administered medications for this visit. Allergies Allergen Reactions ??? Doxycycline Other (See Comments) and Nausea and Vomiting OBJECTIVE: BP 116/64 (BP Location: Right arm, Patient Position: Chair, Cuff Size: Adult Regular) Pulse 71 Temp 98.1 ??F (36.7 ??C) (Tympanic) LMP 04/18/2018 SpO2 99% General appearance: alert and no apparent distress Skin color is pink and without rash. HEENT: Conjunctiva not injected. Sclera clear. Left TM is normal: no effusions, no erythema, and normal landmarks. Right TM is normal: no effusions, no erythema, and normal landmarks. Nasal mucosa is normal. Oropharyngeal exam shows erythema without lesions or exudate. She has anterior lymphadenopathy, R>L. No posterior lymphadenopathy. Neck is supple. CARDIAC:NORMAL - regular rate and rhythm without murmur. RESP: Normal - CTA without rales, rhonchi, or wheezing. ABDOMEN: Abdomen soft, non-tender. BS normal. No masses, organomegaly. No CVA tenderness. NEURO: Alert and oriented. Normal speech and mentation. CN II/XII grossly intact. Gait within normallimits. LABS: Results for orders placed or performed in visit on 04/29/18 (from the past 24 hour(s)) UA reflex to Microscopic and Culture Result Value Ref Range Color Urine Yellow Appearance Urine Clear Glucose Urine Negative NEG^Negative mg/dL Bilirubin Urine Negative NEG^Negative Ketones Urine Negative NEG^Negative mg/dL Specific Gilead Urine 1.010 1.003 - 1.035 Blood Urine Negative NEG^Negative pH Urine 6.5 5.0 - 7.0 pH Protein Albumin Urine Negative NEG^Negative mg/dL Urobilinogen Urine 0.2 0.2 - 1.0 EU/dL Nitrite Urine Negative NEG^Negative Leukocyte Esterase Urine Trace (A) NEG^Negative Source Midstream Urine Urine Microscopic Result Value Ref Range WBC Urine 0 - 5 OTO5^0 - 5 /HPF RBC Urine O - 2 OTO2^O - 2 /HPF Strep, Rapid Screen Result Value Ref Range Specimen Description Throat Rapid Strep A Screen NEGATIVE: No Group A streptococcal antigen detected by immunoassay, await culture report. Wet prep Result Value Ref Range Specimen Description Vagina Wet Prep No yeast seen Wet Prep No clue cells seen Wet Prep No Trichomonas seen Urine Culture pending Strep Culture Pending ASSESSMENT/PLAN: (R30.0) Dysuria (primary encounter diagnosis) Plan: UA, Wet prep. No evidence of UTI on UA. Currently has atypical intermittent end stream dysuria. Discussed she may have a bit of bladder irritation post infection. With no clear UTI infection heretoday, no fever or other UTI sxs now, I do not feel a 3rd course of abx is warranted at this time. UCX is pending to assure full resolution. Wet prep negative. Denies any concern about STI. Push fluids. If culture grows out, will initiate antibiotics. In addition to the above, dysuria red flag signsand sxs are reviewed with pt both verbally and by way of printed educational material for home review. Pt verbalizes understanding of and agrees to the above plan. (R07.0) Throat pain Plan: Likely viral etiology. Advised ongoing symptomatic cares, including ibuprofen, nyquil. Push fluids. Can try chloraseptic spray for pain. Will notify patient if strep culture is positive. SERGIO MorseS 04/29/2018 at 6:46 PM I have reviewed the ROS and PFSH documented by the student. I performed thge pertinent history, examand assessment/plan components as documented above. documented in this encounter Plan of Treatment Not on filedocumented as of this encounter Procedures Procedure Name Priority Date/Time Associated Comments Diagnosis WET PREPARATION Routine 04/29/2018 5:22 PM Dysuria Result s for this CDT procedure are i n the results section. URINE CULTURE Routine 04/29/2018 5:22 PM Dysuria Results for this CDT procedure are i n the results section. BETA HEMOLYTIC STREP Routine 04/29/2018 4:22 PM Throat pain R esults for this GROUP A CULTURE CDT procedure ar e in the results section. RAPID STREP SCREEN Routine 04/29/2018 4:05 PM Dysuria Res ults for this THROAT SWAB CDT procedure are i n the results section. URINE MICROSCOPIC Routine 04/29/2018 3:45 PM Dysuria Resu lts for this CDT procedure are i n the results section. UA MACROSCOPIC WITH Routine 04/29/2018 3:45 PM Dysuria Re sults for this REFLEX TO MICROSCOPIC CDT proced ure are in AND CULTURE the results section. documented in this encounter Results Urine Culture Aerobic Bacterial (04/29/2018 5:22 PM CDT) Component Value Ref Test Analysis Performed At [facility] Range Method Time Signature Specimen Midstream Urine INFECTIOUS Description DISEASE DIAGNOSTIC LABORATORY Culture Micro 10,000 to 50,000 colonies/mL 018 INFECTIOUS mixed urogenital andre 9:18 PM CDT DISEA SE Susceptibility testing not routinely done DIAGNOSTIC LABORATORY Specimen (Source) Anatomical Collection Method Collection Time Re ceived Time Location / / Volume Laterality Examination of 04/29/2018 5:22 04/29/2018 5:27 midstream urine PM CDT PM CDT specimen (procedure) Phillip Crowder PA-C LAB - MICRO GENERAL ORDERA BLESerena Performing Organization Address City/State/ZIP Code Phon e Number INFECTIOUS DISEASES [address] [place] [address] DIAGNOSTIC LABORATORY, [facility] INFECTIOUS DISEASE [address] [place] [address], [place] DIAGNOSTIC LABORATORY Wet prep (04/29/2018 5:22 PM CDT) [facility] Method Time Signature Specimen Vagina [facility] Description CLINICS DEV Wet Prep No yeast seen 04/29/2018 [facility] 5:33 PM CDT CLINICS DEV Wet Prep No clue cells 04/29/2018 [facility] seen 5:33 PM CDT CLINICS DEV Wet Prep No Trichomonas 04/29/2018 [facility] seen 5:33 PM CDT CLINICS DEV Specimen Anatomical Collection Method Collection Time Receive d Time (Source) Location / / Volume Laterality Specimen from 04/29/2018 5:22 PM 04/29/20 18 5:27 vagina CDT PM CDT (specimen) Phillip Crowder PA-C LAB - MICRO GENERAL ORDERA BLES Performing Organization Address City/[facility]/ZIP Code Phon e Number [facility] [address] [place] [address] [phone] Beta strep group A culture (04/29/2018 4:22 PM CDT) Component Value Ref Test Analysis Performed At [facility] gist Range Method Time Signature Specimen Throat [facility] DEV Culture Micro No beta 04/30/2018 [facility] hemolytic 6:00 PM CDT CLINICS Streptococcus DEV Group A isolated Specimen Anatomical Collection Method Collection Time Receive d Time (Source) Location / / Volume Laterality Specimen from 04/29/2018 4:22 PM 04/29/20 18 4:24 throat CDT PM CDT (specimen) Phillip Crowder PA-C LAB - MICRO GENERAL ORDERA BLESerena Performing Organization Address City/[facility]/ZIP Code Phon e Number [facility] [address] [place] [address] [phone] Strep, Rapid Screen (04/29/2018 4:05 PM CDT) Component Value Ref Test Analysis Performed At [facility] gist Range Method Time Signature Specimen Throat [facility] DEV Rapid Strep A NEGATIVE: No 04/29/2018 [facility] Screen Group A 4:23 PM CDT CLINICS streptococcal DEV antigen detected by immunoassay, await culture report. Specimen Anatomical Collection Method Collection Time Receive d Time (Source) Location / / Volume Laterality Specimen from 04/29/2018 4:05 PM 04/29/20 18 4:07 throat CDT PM CDT (specimen) Phillip Crowder PA-C LAB - MICRO GENERAL ORDERA BLES Performing Organization Address City/[facility]/ZIP Code Phon e Number [facility] [address] [facility] [place] [place] [address] [phone] Urine Microscopic (04/29/2018 3:45 PM CDT) P athologist Signature WBC Urine 0 - 5 OTO5^0 - 5 04/29/2018 [facility] /HPF 4:42 PM CDT CLINICS DEV RBC Urine O - 2 OTO2^O - 2 04/29/2018 [facility] /HPF 4:42 PM CDT CLINICS DEV Specimen Anatomical Collection Method Collection Time Receive d Time (Source) Location / / Volume Laterality 04/29/2018 3:45 PM 8 3:47 CDT PM CDT Phillip Crowder PA-C LAB - URINE ORDERABLES Performing Organization Address City/State/ZIP Code Phon e Number [facility] [address] [place] [address] [place] [address] [phone] (ABNORMAL) UA reflex to Microscopic and Culture (04/29/2018 3:45 PM CDT) Patholo gist Method Time Signature Color Urine Yellow 04/29/2018 [facility] 4:35 PM CDT CLINICS DEV Appearance Urine Clear 04/29/2018 [facility] 4:35 PM CDT CLINICS DEV Glucose Urine Negative NEG^Negat 04/29/2018 [facility] yakelin mg/dL 4:35 PM CDT CLINICS DEV Bilirubin Urine Negative NEG^Negat 04/29/2018 [facility] 4:35 PM CDT CLINICS DEV Ketones Urine Negative NEG^Negat 04/29/2018 [facility] [place]elin mg/dL 4:35 PM CDT CLINICS DEV Specific Gilead 1.010 1.003 - 04/29/2018 [facility] Urine 1.035 4:35 PM CDT CLINICS DEV Blood Urine Negative NEG^Negat 04/29/2018 [facility] [place] 4:35 PM CDT CLINICS DEV pH Urine 6.5 5.0 - 7.0 04/29/2018 [facility] pH 4:35 PM CDT CLINICS DEV Protein Albumin Negative NEG^Negat 04/29/2018 [facility] Urine yakelin mg/dL 4:35 PM CDT CLINICS DEV Urobilinogen 0.2 0.2 - 1.0 04/29/2018 [facility] Urine EU/dL 4:35 PM CDT CLINICS DEV Nitrite Urine Negative NEG^Negat 04/29/2018 [facility] [place] 4:35 PM CDT CLINICS DEV Leukocyte Trace (A) NEG^Negat 04/29/2018 [facility] Esterase Urine yakelin 4:35 PM CDT CLINICS DEV Source Midstream 04/29/2018 [facility] Urine 3:47 PM CDT CLINICS DEV Specimen (Source) Anatomical Collection Method Collection Time Re ceived Time Location / / Volume Laterality Examination of 04/29/2018 3:45 04/29/2018 3:47 midstream urine PM CDT PM CDT specimen (procedure) Phillip Crowder PA-C LAB - URINE ORDERABLES Performing Organization Address City/State/ZIP Code Phon e Number [facility] [address] [facility] [place] [address] [phone] documented in this encounter Visit Diagnoses Diagnosis Dysuria - Primary Throat pain documented in this encounter Additional Health Concerns Assessment Noted Time PHQ-9 Depression Total Score: 7 02/07/2018 7:00 AM CDT documented as of this encounter Care Teams Principal Security Architect Relationship Specialty Start Date End Date Blank Lemos MD PCP - General Internal Medicine 04/22/[address] [place] [address] [place] [phone] Blank Lemos MD PCP - Assigned PCP 04/25/18 10/12/[address] [place] [address] [place] [phone] Blank Lemos MD Assigned PCP 04/25/[address] [place] [address] [place] [phone] documented as of this encounter
--- OUTSIDE RECORDS SUMMARY | 2022-04-09 07:20 | XMS_ITS | Encounter Summary ---
:1990 Author Organization [place] Address [facility] [place] [address] Care Team Providers Name Role Phone Lalita Perez MD Primary Care Provider Reason for Visit Reason Onset Date Comments Appointment 04/01/2018 scheduled for 04/08 at 2.20 pm Encounter Details Date Type Department Care Team Description 04/01/2018 Telephone [facility] Blank Lemos (scheduled Clinic [place] MD for 04/08 at [address] [facility] 2.20 pm) [facility] [address] [place] [address] [place] [phone] Social History Tobacco Use Types Packs/Day Years [...] this encounter Miscellaneous Notes Telephone Encounter - Kristie Kapadia RN - 04/06/2018 11:42 AM CDT Scheduled appointment, call to patient- for patient with the appointment information. Next 5 appointments (look out 90 days) Apr 08, 2018 2:20 PM CDT SHORT with [facility] [address] [place] [address] [place] [phone] Kristie Kapadia RN Message handled by Nurse Triage. Telephone Encounter - Blank Lemos MD - 04/05/2018 9:05 PM CDT Could see her 220pm on . Blank Lemos MD Internal Medicine/Pediatrics [facility] Telephone Encounter - Monique Leslie - 04/05/2018 4:21 PM CDT Patient calling back requesting to see Dr. Lemos soonest opening is April 22. Patient needs forms done by ThursdayApril 09. Can patient be fit in with Dr. Lemos? Please callback patient. Thanks Samir Varela Team Coodinator Telephone Encounter - Ana Maria Daniels MA - 04/05/2018 2:40 PM CDT Called and left message with patient that she needs OV to have forms filled out. Ana Maria Daniels MA 2:41 PM 04/05/2018 Telephone Encounter - Ana Maria Daniels MA - 04/02/2018 12:22 PM CDT Forms are in provider's basket. Ana Maria Daniels MA 12:22 PM 04/02/2018 Telephone Encounter - Evelyn Olvera - 04/01/2018 4:48 PM CDT Reason for Call: Form, our goal is to have forms completed with 72 hours, however, some forms may require a visit or additional information. Type of letter, form or note: FMLA Who is the form from?: Patient Where did the form come from: Patient or family brought in What clinic location was the form placed at?: Dev Where the form was placed: [facility] What number is listed as a contact on the form?: please complete and call for picking machine operator at [phone] Additional comments: please complete and call for picking machine operator at [phone] Call taken on 04/01/2018 at 4:48 PM by Evelyn Olvera documented in this encounter Plan of Treatment Not on filedocumented as of this encounter Visit Diagnoses Not on filedocumented in this encounter Additional Health Concerns Assessment Noted Time PHQ-9 Depression Total Score: 7 02/07/2018 7:00 AM CDT documented as of this encounter Care Teams Associate School Psychologist Relationship Specialty Start Date End Date Lalita Perez MD PCP - General Student in organized health 10/21/1404/21 care education/training program documented as of this encounter
--- OUTSIDE RECORDS SUMMARY | 2022-04-09 07:20 | XMS_ITS | Encounter Summary ---
:1990 Author Organization [place] Address [facility] [place] [address] Care Team Providers Name Role Phone Blank Lemos MD Primary Care Provider Blank Lemos MD Unavailable Hardeep Cárdenas Unavailable Unavailable Reason for Referral Mental Health Outpatient (Routine) - Closed Specialty Diagnoses / Procedures Referred By Contact Refer red To Contact Diagnoses Generalized anxiety disorder Bipolar I disorder (H) Blank Lemos MD [address] [place] [address] [place] [id number] Referral ID Status Reason Start Date Expiration Date Visits Requ ested Visits Authorized [id number] Closed 12/08/2019 12/07/2020 1 1 Scheduling Instructions ken please - patient with severe social anxiety - unable to leave house. Reason for Visit Reason Onset Date Comments Telephone 12/08/2019 Anxiety 12/08/2019 Encounter Details Date Type Department Care Team Description 12/08/2019 Virtual Visit [facility] Blank Lemos Insomnia , unspecified type (Primary Dx); Clinic Dev Camp MD Generalized anxiety disorder; [address] [place] [address] Bipol ar I disorder (H); [facility] Migraine without aura and without status migrainosus, not intractable [address] [place] [address] [place] [phone] Social History Tobacco Use [...] Patient Instructions Patient InstructionsBlank Lemos MD - 12/08/2019 10:15 AM CDT Winston Rena, I have sent the medications to your pharmacy - please try the Trazodone to help with sleep. Someone from [facility] will be reaching out to you soon. Letter should be available in [employer]. I will have someone reach out to you to get a video visit scheduled in about a month. Take care! Blank Lemos MD Internal Medicine/Pediatrics [facility] documented in this encounter Progress Notes Blank Lemos MD - 12/08/2019 10:15 AM CDT Rena Turner is a 29 year old female who is being evaluated via a billable telephone visit. The patient has been notified of following: This telephone visit will be conducted via a call between you and your physician/provider. We have found that certain health care needs can be provided without the need for a physical exam. This service lets us provide the care you need with a short phone conversation. If a prescription is necessary we can send it directly to your pharmacy. If lab work is needed we can place an order for that and you can then stop by our lab to have the test done at a later time. If during the course of the call the physician/provider feels a telephone visit is not appropriate, you will not be charged for this service. Consent has been obtained for this service by 1 care cleaning team member: yes. See the scanned image in the medical record. Rena Turner complains of Chief Complaint Patient presents with ? Anxiety I have reviewed and updated the patient's Past Medical History, Social History, Family History and Medication List. 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 I was just called back to work to start next week. Since COVID-19 has begun my anxiety has skyrocketed being in public. I think this is something that may pass in the future, but I was wondering if I could get a Drs note from you to stay home for the time being, and possibly a referral to the behavioral clinic in [place] (if they are open right now). I have an appointment to see you on December 20 and we can discuss this furtherat that time. My rate of panic attacks when leaving the house is astronomical and I think it would be in my best interest to hold off on working until at least our appointment. ?? Please let me know your thoughts or how I can make some changes for the better. Depression and Anxiety Follow-Up ?? How are you doing with your depression since your last visit? Worsened ?? How are you doing with your anxiety since your last visit? Worsened ?? Are you having other symptoms that might be associated with depression or anxiety? Yes: panic attacks, irritability, not able to sleep ?? Have you had a significant life event? No ?? Do you have any concerns with your use of alcohol or other drugs? No Reviewed mychart from above - patient states she can't leave the house due to COVID. Feels like there is a big monster outside. Feels weird that she can't see peoples faces. Hard to be out in public.Daily symptoms. +nausea, +irritable, no sleeping, concerned she was main, but not sleeping. Taking more melatonic - taking 9mg instead of 3mg. States she has severe social anxiety. Patient feels that she has always had some social anxiety, but never like this. Currently taking Lexapro 20mg. She is notseeing a therapist right now. Slept for 5 hours last night (typically getting 2-3 hours per night). Previously tried trazodone - made her feel very groggy in AM. She is eating basic needs being met such as food. Also has been called back to work was supposed to return Monday 12/04, but wanted to talk with [facility]. Patient would like to get letter off trey. Social History Tobacco Use ??? Smoking status: Former Smoker Packs/day: 0.25 Years: 8.00 Pack years: 2.00 Types: Cigarettes Last attempt to quit: 06/24/2019 Years since quittin.4 ??? Smokeless tobacco: Never Used Substance Use Topics ??? Alcohol use: No Alcohol/week: 0.0 standard drinks ??? Drug use: No PHQ 02/06/2018 09/22/2018 12/08/2019 PHQ-9 Total Score 7 4 15 Q9: Thoughts of better off /self-harm past 2 weeks Not at all Not at all Not at all GABRIEL-7 SCORE 08/17/2017 09/22/2018 12/08/2019 Total Score 13 3 19 Last PHQ-9 12/08/2019 1. Little interest or pleasure in doing things 3 2. Feeling down, depressed, or hopeless 1 3. Trouble falling or staying asleep, or sleeping too much 3 4. Feeling tired or having little energy 3 5. Poor appetite or overeating 2 6. Feeling bad about yourself 0 7. Trouble concentrating 3 8. Moving slowly or restless 0 Q9: Thoughts of better off /self-harm past 2 weeks 0 PHQ-9 Total Score 15 Difficulty at work, home, or with people Extremely dIfficult GABRIEL-7 12/08/2019 1. Feeling nervous, anxious, or on edge 3 2. Not being able to stop or control worrying 3 3. Worrying too much about different things 3 4. Trouble relaxing 3 5. Being so restless that it is hard to sit still 1 6. Becoming easily annoyed or irritable 3 7. Feeling afraid, as if something awful might happen 3 GABRIEL-7 Total Score 19 If you checked any problems, how difficult have they made it for you to do your work, take care of things at home, or get along with other people? Extremely difficult Suicide Assessment Five-step Evaluation and Treatment (SAFE-T) Assessment/Plan: (G47.00) Insomnia, unspecified type (primary encounter diagnosis) Comment: uncontrolled - patient getting 2-5 hours per night - will try short term trazodone. Plan: traZODone (DESYREL) 50 MG tablet (F41.1) Generalized anxiety disorder Comment: worse - needs therapy ken. If she is to remain out of work I would like her in a dedicatedtreatment program through psych. Will also route this chart to Bessy Plan: escitalopram (LEXAPRO) 20 MG tablet, MENTAL HEALTH REFERRAL - Adult; Outpatient Treatment; Individual/Couples/Family/Group Therapy/Health Psychology; [facility] ; We will contact you to schedule the appointment or please call with any questions (F31.9) Bipolar I disorder (H) Comment: see above Plan: escitalopram (LEXAPRO) 20 MG tablet, MENTAL HEALTH REFERRAL - Adult; Outpatient Treatment; Individual/Couples/Family/Group Therapy/Health Psychology; [facility] ; We will contact you to schedule the appointment or please call with any questions Stable, refill (G43.009) Migraine without aura and without status migrainosus, not intractable Comment: stable Plan: topiramate (TOPAMAX) 100 MG tablet I have reviewed the note as documented above. This accurately captures the substance of my conversation with the patient. Total time of call between patient and provider was 12 minutes Blank Lemos MD Saira Singh LPN - 12/08/2019 10:15 AM CDT Scheduled for 01/04. Saira Singh LPN documented in this encounter Plan of Treatment Scheduled Referrals Name Type Priority Associated Diagnoses Order S [facility] REFERRAL - Referral Routine Generalized anxi ety Ordered: 12/08/2019 Adult; Outpatient disorder Treatment; Bipolar I disorder (H) Individual/Couples/Famil y/Group Therapy/Health Psychology; [facility] ; We will contact you to schedule the appointment or please call with any questions documented as of this encounter Visit Diagnoses Diagnosis Insomnia, unspecified type - Primary Generalized anxiety disorder Bipolar I disorder (H) [...] documented as of this encounter Care Teams Cable Assembler And Swager Relationship Specialty Start Date End Date Blank Lemos, PCP - General Internal Medicine 04/22/[address] [place] [address] [place] [phone] Blank Lemos, Assigned PCP [facility] [place] [address] Hardeep Cárdenas Personal Advocate & 06/17/1901/30 Liaison (PAL) documented as of this encounter
--- OUTSIDE RECORDS SUMMARY | 2022-04-09 07:20 | XMS_ITS | Encounter Summary ---
:1990 Author Organization [place] Address [facility] [place] [address] Care Team Providers Name Role Phone Blank Lemos MD Primary Care Provider Blank Lemos MD Unavailable Blank Lemos MD Unavailable Reason for Visit Reason Comments Medication Refill escitalopram (LEXAPRO) 20 MG tablet Encounter Details Date Type Department Care Team Description 08/06/2018 Refill [facility] on Refill Clinic Dev Reyes MD (escitalopram (LEXAPRO) [address] [facility] 20 MG tab let) [place] [address] [address] [facility] [place] [phone] [place] [address] (Wo rk) Social History Tobacco [...] this encounter Miscellaneous Notes Telephone Encounter - Hardeep Coronado - 08/06/2018 4:53 PM CST Requested Prescriptions Pending Prescriptions Disp Refills ??? escitalopram (LEXAPRO) 20 MG tablet [Pharmacy Med Name: ESCITALOPRAM 20MG TABLETS] Last Written Prescription Date: 02/11/2018 Last Fill Quantity: 90 tablet, # refills: 1 Last office visit: 04/22/2018 with prescribing provider: Blank Lemos MD Future Office Visit: 90 tablet 0 Sig: TAKE 1 TABLET(20 MG) BY MOUTH DAILY SSRIs Protocol Passed - 08/06/2018 11:27 AM Passed - Recent (12 mo) or [...] No positive test in last 12 months GE AGENT documented in this encounter Plan of Treatment Not on filedocumented as of this encounter Visit Diagnoses Diagnosis Generalized anxiety disorder Bipolar I disorder (H) Bipolar I disorder, most recent episode (or current) unspecified documented in this encounter Additional Health Concerns Assessment Noted Time PHQ-9 Depression Total Score: 7 02/07/2018 7:00 AM CDT documented as of this encounter Care Teams Optical Engineer Relationship Specialty Start Date End Date Blank Lemos MD PCP - General Internal Medicine 04/22/[address] [place] [address] [address] [place], [place] [address] Blank Lemos MD PCP - Assigned PCP 04/25/18 10/12/18 [address] [facility] [address] [place], [place] [address] Blank Lemos MD Assigned PCP 04/25/18 [address] [facility] [place] [id number] documented as of this encounter
--- OUTSIDE RECORDS SUMMARY | 2022-04-09 07:20 | XMS_ITS | Encounter Summary ---
:1990 Author Organization [place] Address [facility] [place] [address] Care Team Providers Name Role Phone Lalita Perez MD Primary Care Provider Reason for Referral Consultation - Closed Specialty Diagnoses / Procedures Referred By Contact Refer red To Contact Diagnoses Migraine without aura and without status migrainosus, not intractable Blank Lemos MD [address] [facility] [place] [address] [place] [address] Phone: Fax: Referral ID Status Reason Start Date Expiration Date Visits Requ ested Visits Authorized [id number] Closed 08/28/2016 08/28/2017 1 1 [facility] Reason for Visit Reason Comments Headache Ear Problem Encounter Details Date Type Department Care Team Description 08/28/2016 Office Visit [facility] Blank Lemos Migraine without aura and without status migrainosus, not intractable (Primary Dx); Clinic Dev Camp MD ETD (eustachian tube dysfunction), [address] [place] [address] [place] [phone] Social History Tobacco Use [...] Sign Reading Time Taken Comments Blood Pressure 111/77 08/28/2016 2:55 PM [facility] Pulse 84 08/28/2016 2:55 PM [facility] Temperature 36.9 ??C (98.5 ??F) 08/28/2016 2:55 PM [facility] Respiratory Rate - - Oxygen Saturation 98% 08/28/2016 2:55 PM [facility] Inhaled Oxygen Concentration - - Weight 88.5 kg (195 lb 3.2 oz) 08/28/2016 2:55 PM [facility] Height 160.7 cm (5' 3.25) 08/28/2016 2:55 PM [facility] Body Mass Index 34.31 08/28/2016 2:55 PM [facility] documented in this encounter Patient Instructions Patient InstructionsBlank Lemos MD - 08/28/2016 3:20 PM CST Increase topamax to 100mg twice daily. Make appt for neurology (if things get better, can always cancel appt). Use sudafed for continued ear symptoms. Blank Lemos MD Internal Medicine/Pediatrics [facility] documented in this encounter Progress Notes Blank Lemos MD - 08/28/2016 2:52 PM CST SUBJECTIVE: Rena Turner is a 26 year old female who presents to clinic today for the following health issues: Migraine Follow-Up ?? Headaches symptoms: Stable ?? Frequency: 2x/month ?? Duration of headaches: up to 3 days ?? Able to do normal daily activities/work with migraines: No ?? Rescue/Relief medication:ibuprofen (Advil, Motrin) and sumatriptan (Imitrex) Effectiveness: minor relief ?? Preventative medication: Topamax ?? Neurologic complications: No new stroke-like symptoms, loss of vision or speech, numbness or weakness ?? In the past 4 weeks, how often have you gone to Urgent Care or the emergency room because of yourheadaches? 0 ?? Amount of exercise or physical activity: 1 day/week for an average of less than 15 minutes ?? Problems taking medications regularly: No ?? Medication side effects: none ?? Diet: gluten-free/reduced Patient had a headache free month after we first started topamax about 3 months ago, then headaches returned about 1 month ago. She has had 2 migraines since Aug 10 - had to use imitrex. She misses 1-2 days of work with each migraine and work is giving her a hard time about her absences. She would liketo improved her headaches. Does not drink caffeing. Recovering from ear infection, sleeping almost 16 hours per day. Also complains that bilateral ears still feel plugged. She did complete anitbiotics for ear infection. She has had multiple right ear infections as an adult. Currently no fevers. Problem list and histories reviewed & adjusted, as indicated. Additional history: as documented Problem list, Medication list, Allergies, and Medical/Social/Surgical histories reviewed in [facility] andupdated as appropriate. ROS: Constitutional, HEENT, cardiovascular, pulmonary, gi and gu systems are negative, except as otherwise noted. OBJECTIVE: BP 111/77 mmHg Pulse 84 Temp(Src) 98.5 ??F (36.9 ??C) (Tympanic) Ht 5' 3.25 (1.607 m) Wt 195 lb 3.2 oz (88.542 kg) BMI 34.29 kg/m2 SpO2 98% Body mass index is 34.29 kg/(m^2). GENERAL APPEARANCE: healthy, alert and no distress HENT: right TM scarring, but erythema or buldging, left TM normal. CV: regular rates and rhythm, normal S1 S2, no S3 or S4 and no murmur, click or rub Diagnostic Test Results: none ASSESSMENT/PLAN: 1. Migraine without aura and without status migrainosus, not intractable Will try one more increase in topamax, although discussed with patient that more improvement may or may not happen. Referral to neurology in case things don't improve. Continue with no caffeine. Did discuss that recent headaches could have been exacerbated/triggered by ear infection. - topiramate (TOPAMAX) 100 MG tablet; Take 1 tablet (100 mg) by mouth 2 times daily Dispense: 180 tablet; Refill: 3 - NEUROLOGY ADULT REFERRAL 2. ETD (eustachian tube dysfunction), bilateral Exam unremarkable except for scarring - rec over the counter decongestant. Patient Instructions Increase topamax to 100mg twice daily. Make appt for neurology (if things get better, can always cancel appt). Use sudafed for continued ear symptoms. Blank Lemos MD Internal Medicine/Pediatrics [facility] Blank Lemos MD [facility] documented in this encounter Nursing Notes Saira Singh LPN - 08/28/2016 2:56 PM CST Chief Complaint Patient presents with ??? Headache ??? Ear Problem Initial BP 111/77 mmHg Pulse 84 Temp(Src) 98.5 ??F (36.9 ??C) (Tympanic) Ht 5' 3.25 (1.607 m) Wt 195 lb 3.2 oz (88.542 kg) BMI 34.29 kg/m2 SpO2 98% Estimated body mass index is 34.29 kg/(m^2) as calculated from the following: Height as of this encounter: 5' 3.25 (1.607 m). Weight as of this encounter: 195 lb 3.2 oz (88.542 kg). BP completed using cuff size: large Saira Singh LPN [facility] documented in this encounter Plan of Treatment Scheduled Referrals Name Type Priority Associated Diagnoses Order S [facility] NEUROLOGY ADULT Referral Routine Migraine without aura Ord ered: 08/28/2016 REFERRAL and without status migrainosus, not intractable documented as of this encounter Visit Diagnoses Diagnosis Migraine without aura and without status migrainosus, not intractable - Primary Migraine without aura, without mention o f intractable migraine without mention of status migrainosus ETD (Eustachian tube dysfunction), bilat eral documented in this encounter Additional Health Concerns Assessment Noted Time PHQ-9 Depression Total Score: 14 04/11/2016 7:23 AM CD T documented as of this encounter Care Teams Geothermal Powerplant Mechanic Relationship Specialty Start Date End Date Lalita Perez MD PCP - General Student in organized health 10/21/1404/21 care education/training program documented as of this encounter
--- OUTSIDE RECORDS SUMMARY | 2022-04-09 07:20 | XMS_ITS | Encounter Summary ---
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
--- OUTSIDE RECORDS SUMMARY | 2022-04-09 07:20 | XMS_ITS | Encounter Summary ---
:1990 Author Organization [place] Address [address] [place] [address] Care Team Providers Name Role Phone Lalita Perez MD Primary Care Provider Reason for Visit Reason Onset Date Comments Ear Problem 08/19/2016 Encounter Details Date Type Department Care Team Description 08/19/2016 Telephone [facility] Taylor Perez MD Ear Problem [facility] [address] [facility] [address] [facility] [address] [place] [address] [place] [phone] Social History Tobacco Use Types Packs/Day Years [...] this encounter Miscellaneous Notes Telephone Encounter - Lizett Garcia - 08/19/2016 5:56 PM CST Spoke with patient, she understands the below documentation. Lizett Garcia Family Medicine Chair EL RIFLER HOOK Telephone Encounter - Lizett Garcia - 08/19/2016 5:41 PM CST LM for patient to call the clinic. Please see below documentation. Thank you, Lizett Garcia Family Medicine Chair [facility] RIFLER HOOK Telephone Encounter - Rebeka French PA-C - 08/19/2016 5:12 PM [place] RIFLER HOOK Begin omnicef and dc augmentin. Increase fluid intake. Call and inform patient. Rebeka French PA-C [place] RIFLER HOOK Telephone Encounter - Kristie Kapadia RN - 08/19/2016 4:57 PM CST Patient calls. Was seen again on 08/15 and prescribed Augmentin for right ear infection. Today is day 5 of medication ( was on ear drops prior to that) States that she has not started improving, feels the same, not worsening, but has not have any improvement. Denies fever, draining, sinus pressure, but described ear pain as stubbing. Has always taken Augmentin in the past and it worked well. We talked about continuing medication since she has 5 days left of treatment, patient states that she can, but there was no improvement so far, so wondering if ok to change medications as the pain is affecting her ADLs. Please advise. She would rather change it than continue. Kristie Kapadia RN Message handled by Nurse Triage. EL RIFLER HOOK documented in this encounter Plan of Treatment Not on filedocumented as of this encounter Visit Diagnoses Diagnosis Acute suppurative otitis media without s pontaneous rupture of ear drum, recurrence not specified, unspecified laterality - Primary documented in this encounter Additional Health Concerns Assessment Noted Time PHQ-9 Depression Total Score: 14 04/11/2016 7:23 AM CD T documented as of this encounter Care Teams Bisque Kiln Placer Relationship Specialty Start Date End Date Lalita Perez MD PCP - General Student in [facility] health 10/21/1404/21 care education/training program documented as of this encounter
--- OUTSIDE RECORDS SUMMARY | 2022-04-09 07:20 | XMS_ITS | Encounter Summary ---
:1990 Author Organization [place] Address [facility] [place] [address] Care Team Providers Name Role Phone Blank Lemos MD Primary Care Provider Blank Lemos MD Unavailable Blank Lemos MD Unavailable Reason for Visit Reason Onset Date Comments Pharyngitis 04/27/2018 Encounter Details Date Type Department Care Team Description 04/27/2018 Telephone [facility] Blank Oliveros MD Pharyngitis [place] [address] [facility] [address] [facility] [place] [address] [address] [place] [address] [phone] Social History Tobacco Use Types Packs/Day Years [...] Telephone Encounter - Kristie Kapadia RN - 04/29/2018 1:05 PM CDT Patient calls. Finished Cipro and still with symptoms-pain with urination. No fevers, chills or sweats, reports discomfort in the lower back, kidney area. Still with sore throat, getting worse. Advised appointment today-since the sore throat was present prior to any antibiotics. Also, needed to follow up with another urine test. Patient in agreement, appointment scheduled for tomorrow-patientaware to come tonight if able-she is working until 5, appointment set up for tomorrow. Kristie Kapadia RN Message handled by Nurse Triage. Telephone Encounter - Kristie Kapadia RN - 04/27/2018 11:38 AM CDT Patient is calling. States that she has a sore throat and wondering if that could be caused by her switching antibiotics. She was on Macrobid and now on Cipro for UTI. She denies fever, trouble breathing, trouble swallowing, swelling in the throat. The sore throat wasthere since 04/22, when started Macrobid. Patient is congested. Appointment advised if sore throat continues-may have a cold, post nasal drip or have strep aware and will make an appointment if needed. Will be doing cough drops and monitoring the pain and sore throat. Kristie Kapadia RN Message handled by Nurse Triage. documented in this encounter Plan of Treatment Not on filedocumented as of this encounter Visit Diagnoses Not on filedocumented in this encounter Additional Health Concerns Assessment Noted Time PHQ-9 Depression Total Score: 7 02/07/2018 7:00 AM CDT documented as of this encounter Care Teams Export Clerk Relationship Specialty Start Date End Date Blank Lemos MD PCP - General Internal Medicine 04/22/[address] [place] [address] [place] [phone] Blank Lemos MD PCP - Assigned PCP 04/25/18 10/12/[address] [place] [address] [place] [phone] Blank Lemos MD Assigned PCP 04/25/[address] [place] [address] [place] [phone] documented as of this encounter
--- OUTSIDE RECORDS SUMMARY | 2022-04-09 07:21 | XMS_ITS | Encounter Summary ---
:1990 Author Organization [place] Address [address] [place] [address]. [place] [address] Care Team Providers Name Role Phone Lalita Perez MD Primary Care Provider Reason for Referral Mental Health Outpatient - Closed Specialty Diagnoses / Procedures Referred By Contact Refer red To Contact Diagnoses GABRIEL (generalized anxiety disorder) Lalita Perez MD [facility] [address] [address] [place] [id number] Referral ID Status Reason Start Date Expiration Date Visits Requ ested Visits Authorized [id number] Closed 10/17/2014 04/15/2015 1 1 Reason for Visit Reason Comments Anxiety Encounter Details Date Type Department Care Team Description 10/17/2014 Office Visit [facility] Lalita Perez MD GABRIEL (generalized Dev [facility] anxiety disorder) [facility] [address] (Primary Dx) [place] [address] FERNANDO RICE [phone] [place] [address] Social History Tobacco Use Types Packs/Day Years Used Date Current Every Day Smoker Cigarettes 1 8 Smokeless Tobacco: Never Used Alcohol Use [...] Reading Time Taken Comments Blood Pressure 110/74 10/17/2014 2:20 PM CDT Pulse 60 10/17/2014 2:20 PM CDT Temperature 36.8 ??C (98.3 ??F) 10/17/2014 2:20 PM CDT Respiratory Rate - - Oxygen Saturation - - Inhaled Oxygen Concentration - - Weight 85.3 kg (188 lb) 10/17/2014 2:20 PM CDT Height 165.1 cm (5' 5) 10/17/2014 2:20 PM CDT Body Mass Index 31.28 10/17/2014 2:20 PM CDT documented in this encounter Patient Instructions Patient InstructionsLalita Perez - 10/17/2014 3:06 PM CDT 1. Start taking the lexapro (escitalopram) 10 mg once per day for 2 weeks then increase to 20 mg (2 tablets) once per day thereafter. 2. You can call the therapy office if you do not hear from them in the next couple days to schedule an appointment 3. Return to clinic in 4-6 weeks. documented in this encounter Progress Notes Lalita Perez - 10/17/2014 2:23 PM CDT SUBJECTIVE: Rena Turner is a 24 year old female who presents to clinic today for the following health issues: Abnormal Mood Symptoms ?? Duration: few years ?? Description: Depression: YES- stopped medications due to insurance change. Anxiety: YES Panic attacks: YES ?? Accompanying signs and symptoms: see PHQ-9 and GABRIEL scores. Social is biggest trigger but is almost all the time too. Gets fast heart beat, face flushing. Difficulty falling asleep. Avoidance of social situations. Appetite sometimes increased, sometimes decreased. Mild depression but no suicidal ideation. ?? History (similar episodes/previous evaluation): Has previously been diagnosed with anxiety, depression, and bipolar, although she feels the bipolar diagnosis came from side effects from meds for more typical anxiety and depression. ?? Precipitating or alleviating factors: ?? Therapies tried and outcome: Desyrel (Trazodone), Prozac (Fluoxetine), Wellbutrin (Bupropion), Zoloft (Sertraline), lamictal, depakote - she felt each med brought out a new symptom. Wants to work onanxiety first. Can't remember which ones worked exactly, but prozac did help for anxiety but not as much for depression. Has done therapy - one therapist was good and she liked this. Problem list and histories reviewed & adjusted, as indicated. Additional history: as documented There is no problem list on file for this patient. History reviewed. No pertinent past surgical history. History Substance Use Topics ??? Smoking status: Current Every Day Smoker -- 1.00 packs/day for 8 years Types: Cigarettes ??? Smokeless tobacco: Never Used ??? Alcohol Use: No Family History Problem Relation Age of Onset ??? Diabetes No family hx of ROS: See HPI OBJECTIVE: BP 110/74 Pulse 60 Temp(Src) 98.3 ??F (36.8 ??C) (Oral) Ht 5' 5 (1.651 m) Wt 188 lb (85.276kg) BMI 31.28 kg/m2 Body mass index is 31.28 kg/(m^2). GENERAL: healthy, alert and no distress RESP: lungs clear to auscultation - no rales, rhonchi or wheezes CV: regular rate and rhythm, normal S1 S2, no S3 or S4, no murmur, click or rub, no peripheral edemaand peripheral pulses strong MS: no gross musculoskeletal defects noted, no edema NEURO: mentation intact and speech normal PSYCH: mentation appears normal, affect normal/bright but with some mild anxiety and hand twitching noted. Converses appropriately. Diagnostic Test Results: none ASSESSMENT/PLAN: 1. GABRIEL (generalized anxiety disorder) Discussed trying one medication first before adding additional meds for sleep, etc. Patient very happy with this plan and would like to try once thing at a time. Will start with lexapro 10 mg qday for 2 weeks then increase to 20 mg qday thereafter. - escitalopram (LEXAPRO) 10 MG tablet; Take 1 tablet (10 mg) by mouth daily Dispense: 30 tablet; Refill: 1 - MENTAL HEALTH REFERRAL - F/u in 4-6 [address] staff[address] with [address] Lindsey, attending Lalita Perez MD Med/Peds PGY-2 [facility] DEV STAFF NOTE: Patient seen with resident physician today. I was physically present during alcantara portions of the visit and participated in the evaluation and management of the patient today. Delmy Lindsey MD documented in this encounter Miscellaneous Notes Addendum Note - Delmy Lindsey MD - 10/21/2014 4:13 PM CDT Addended by: DELMY LINDSEY on: 10/21/2014 04:13 PM Modules accepted: Level of Service documented in this encounter Plan of Treatment Scheduled Referrals Name Type Priority Associated Diagnoses Order [facility] MENTAL HEALTH REFERRAL Referral Routine GABRIEL (generalized a nxiety Ordered: 10/17/2014 disorder) documented as of this encounter Visit Diagnoses Diagnosis GABRIEL (generalized anxiety disorder) - Kimberli bear Generalized anxiety disorder documented in this encounter Care Teams Extra Hand Relationship Specialty Start Date End Date Lalita Perez MD PCP - General Student in [employer] [facility] 10/21/1404/21 care education/training program documented as of this encounter
--- OUTSIDE RECORDS SUMMARY | 2022-04-09 07:21 | XMS_ITS | Encounter Summary ---
:1990 Author Organization [place] Address [facility] [place] [address] Care Team Providers Name Role Phone Lalita Perez MD Primary Care Provider Reason for Visit Reason Comments Hemoptysis Encounter Details Date Type Department Care Team Description [facility] [address] [place] [address] [place] [id number] Hemoptysis; [facility] Emergency Dep t Kyleigh Sandoval MD [facility] [address] [place], [place] [address] Upper respiratory tract infection, unspe cified type [address] [place] [address] Social History Tobacco Use Types Packs/Day Years [...] Sign Reading Time Taken Comments Blood Pressure 118/84 04/19/2016 10:16 PM CDT Pulse 70 04/19/2016 10:16 PM CDT Temperature 36.5 ??C (97.7 ??F) 04/19/2016 8:41 PM CDT Respiratory Rate 18 04/19/2016 8:41 PM CDT Oxygen Saturation 97% 04/19/2016 10:17 PM CDT Inhaled Oxygen Concentration - - Weight - - Height - - Body Mass Index - - documented in this encounter Discharge Instructions Discharge InstructionsKyleigh Sandoval MD - 04/19/2016 10:12 PM CDT Images from the original note were not included. Hemoptysis Hemoptysis is the medical term for coughing up blood. There are many causes for this, including minor illnesses??like bronchitis. Hemoptysis can also be an early sign of a more serious illness,??like??a??blood clot in the lung??(pulmonary embolism), cancer, tuberculosis, or pneumonia. Less common causes of hemoptysis can be hard to diagnose in an emergency department or a clinic. More testing will be needed if the symptoms continue. Home care ?? Stay away from??cigarette smoke. Smoke irritates the bronchial passages. ?? Unless you are taking daily aspirin to prevent stroke or heart attack, do not take aspirin or products that contain aspirin. Aspirin affects how readily the blood clots. Medicines that prevent clotting may make hemoptysis worse. ?? If you have a lung infection,??drinking??extra fluid will help loosen secretions in the lungs. ?? Qjjq-pia-ggzxnla cough medicines that contain dextromethorphan may help reduce coughing. Check with a medical provider before taking dextromethorphan if you have a chronic illness, are , or take daily medications. ?? If you were prescribed an antibiotic, take it until it is all gone. Take it even if you are feeling better after only a few days. Follow-up care Follow up with your??health care provider,??or as advised. When to seek medical??advice Call your healthcare provider right away if any of these occur: ?? Fever of 100.4??F (38??C) or higher Call 911, or get immediate medical care Call emergency services right away if any of these occur: ?? Coughing up an increased amount of blood ?? Trouble breathing, wheezing, or pain with breathing ?? Chest pain or chest pressure ?? Fainting or losing consciousness ?? Rapid heartbeat ?? Weakness or dizziness ?? [id number] [employer] [place] [address]. All rights reserved. This information is not intended as a substitute for professional medical care. Always follow your healthcare professional's instructions. documented in this encounter Medications at Time of Discharge Medication Sig Dispensed Refills Start Date End Date desogestrel-ethinyl Take 1 tablet by 30 tablet 0 04/10/2016 06/16/2016 estradiol (KARIVA) mouth daily 0.15-0.02/0.01 MG (28/12) per tabletIndications: Encounter for surveillance of other contraceptive escitalopram (LEXAPRO) 20 Take 1 tablet (20 90 tablet 2 08/201501/14/2017 MG tabletIndications: mg) by mouth daily Generalized anxiety disorder, Bipolar I disorder (H) documented as of this encounter ED Notes Kyleigh Sandoval MD - 04/19/2016 9:04 PM CDT History Chief Complaint: Hemoptysis KEARA Turner is a 26 year old female who presents with hemoptysis. She states that she had a cold last week that consisted of congestion and coughing. She states that she was coughing quite a bit.Her symptoms have been progressively improving. Yesterday she coughed up mucous and blood. Today she coughed up slightly less mucous and a maryan sized area of blood, but decided to report to urgent care who referred her here. She denies fever, chest pain or shortness of breath, leg pain or swelling in her legs. No abdominal pain. PE/DVT Risk Factors Personal History: Negative Recent Travel: Negative Recent Surgery/Hospitalization: Negative Tobacco: Negative Family History: Negative Hormone Use: Positive Cancer: Negative Trauma: Negative Allergies: Doxycycline Medications: Kariva Lexapro Past Medical History: Generalized anxiety Bipolar Insomnia Past Surgical History: Tonsillectomy Abdomen surgery Family History: History reviewed. No pertinent family history. Social History: Marital Status: Single Presents to the ED parents Tobacco Use: Current every day smoker Alcohol Use: No PCP: Lalita Perez Review of Systems Constitutional: Negative for fever. HENT: Positive for congestion (resolved). Respiratory: Positive for cough. Negative for shortness of breath. Positive for Hemoptysis Cardiovascular: Negative for chest pain and leg swelling. Gastrointestinal: Positive for abdominal pain (resolved). Musculoskeletal: Negative for leg pain All other systems reviewed and are negative. Physical Exam First Vitals: BP: (!) 144/103 mmHg Pulse: 74 Temp: 97.7 ??F (36.5 ??C) Resp: 18 SpO2: 98 % Physical Exam Gen: alert HEENT: PERRL, oropharynx clear Neck: normal ROM CV: RRR, no murmurs, 2+ distal pulses in all 4 extremities Chest: no tenderness over the chest wall Pulm: breath sounds equal, lungs clear Abd: Soft, nontender Back: no evidence of injury MSK: no lower extremity edema, no calf tenderness Skin: no rash Neuro: alert, appropriate conversation and interaction Emergency Department Course Imaging: X-ray chest: No evidence of acute cardiopulmonary disease is seen. Report per radiology. Radiographic findings were communicated with the patient who voiced understanding of the findings. Laboratory: D-dimer: 0.5 CBC: WBC 9.2, HGB 13.2, PLT 429, otherwise WNL BMP: Chloride 110 (H), otherwise WNL (Creatinine 0.64) Emergency Department Course: Nursing notes and vitals reviewed. I performed an exam of the patient as documented above. Blood was drawn from the patient. This was sent for laboratory testing, findings above. The patient was sent for a chest x-ray while in the emergency department, findings above. (2024) I rechecked on the patient Findings and plan explained to the patient. Patient discharged home with instructions regarding supportive care, medications, and reasons to return. The importance of close follow-up was reviewed. I personally reviewed the laboratory results with the patient and answered all related questions prior to discharge. Impression & Plan Medical Decision Making: The patient presents for hemoptysis. Patient does have PE risk factors including hemoptysis and use of OCPs. No other PE risk factors. Pulmonary exam here is normal. Patient I felt was overall low to moderate risk for PE, therefore a D- dimer was obtained. This was negative. Laboratory studies were reassuring, Chest X-ray is negative for evidence of pneumonia, mass or other consolidation. The patient does have a recent URI and I suspect that her small volume hemoptysis is related to some irritation relating to her recent infection. Plan for follow up with primary care in one week. If any ongoing symptoms return for worsening, specifically chest pain, shortness of breath or syncope. Diagnosis: ICD-10-CM 1. Hemoptysis R04.2 2. Upper respiratory tract infection, unspecified type J06.9 Disposition: Discharge to home. IRaji, am serving as a scribe on 04/19/2016 at 9:04 PM to personally document services performed by Dr. Sandoval based on my observations and the provider's statements to me. 04/19/2016 [facility] EM[facility] Kyleigh Sandoval MD 04/20/16 1502 Lily Beatty RN - 04/19/2016 8:41 PM CDT Patient comes in for evaluation of blood in sputum. Patient states she has been sick for about a week and yesterday noticed that her mucus had red blood in it. Patient also reports a HARPER, but took Ibuprofen and states it is tolerable. ABCs intact. Alert and interacting appropriately. documented in this encounter Plan of Treatment Not on filedocumented as of this encounter Procedures Procedure Name Priority Date/Time Associated Comments Diagnosis XR CHEST 2 VIEWS STAT 04/19/2016 10:05 Results for this PM CDT procedure are i n the results section. CBC WITH PLATELETS & STAT 04/19/2016 9:25 PM R esults for this DIFFERENTIAL CDT procedure are i n the results section. D DIMER QUANTITATIVE STAT 04/19/2016 9:25 PM R esults for this CDT procedure are i n the results section. BASIC METABOLIC PANEL STAT 04/19/2016 9:25 PM Results for this CDT procedure are i n the results section. documented in this encounter Results XR Chest 2 Views (04/19/2016 10:05 PM CDT) Anatomical Region Laterality Modality Chest Computed Radiography Specimen (Source) Anatomical Location Collection Method / Collectio n Time Received Time / Laterality Volume Impressions 04/19/2016 10:08 PM CDT IMPRESSION: No evidence of acute cardiopulmonary disease is seen. TAYO DAVIDSON MD Narrative 04/19/2016 10:08 PM CDT XR CHEST 2 VW ?? 04/19/2016 10:05 PM HISTORY: hemoptysis, SOB COMPARISON: None. FINDINGS: ??The lungs are clear. No pleu ral effusions or pneumothorax. Heart size and pulmonary vascularity are within normal limits. No acute fracture. Procedure Note Tayo Davidson MD - 04/19/2016Form atting of this note might be different from the original. XR CHEST 2 VW 04/19/2016 10:05 PM HISTORY: hemoptysis, SOB COMPARISON: None. FINDINGS: The lungs are clear. No pleura l effusions or pneumothorax. Heart size and pulmonary vascularity are within normal limits. No acute fracture. IMPRESSION: No evidence of acute cardiop ulmonary disease is seen. TAYO DAVIDSON MD Kyleigh Sandoval MD IMG DIAGNOSTIC IMAGING ORDERABLES (ABNORMAL) Basic metabolic panel (04/19/2016 9:25 PM CDT) [facility] Method Time Signature Sodium 142 133 - 144 [place] mmol/L [facility] Potassium 3.8 3.4 - 5.3 [place] mmol/L [facility] Chloride 110 (H) 94 - 109 [place] mmol/L [facility] Carbon Dioxide 27 20 - 32 [place] mmol/L [facility] Anion Gap 5 3 - 14 [place] mmol/L [facility] Glucose 79 70 - 99 [place] mg/dL [facility] Urea Nitrogen 8 7 - 30 [place] mg/dL [facility] Creatinine 0.64 0.52 - [place] 1.04 [facility] mg/dL HOSPITAL GFR Estimate >90 >60 [place] Non GFR Calc mL/min/1. [facility] 7m2 [facility] GFR Estimate >90 >60 [place] If Black GFR Calc mL/min/1. [facility] 7m2 [facility]OSPITAL Calcium 8.8 8.5 - [place] 10.1 [facility] mg/dL HOSPITAL Specimen Anatomical Collection Method Collection Time Receive d Time (Source) Location / / Volume Laterality Blood specimen 04/19/2016 9:25 PM 016 9:28 (specimen) CDT PM CDT Kyleigh Sandoval MD LAB - BLOOD ORDERABLES Performing Organization Address City/State/ZIP Code Phon e Number [place] [address] [address] [place] [address] [facility] [address] [phone] CBC + differential (04/19/2016 9:25 PM CDT) [facility] gist Method Time Signature WBC 9.2 4.0 - [place] 11.0 [facility] 10e9/L [facility] RBC Count 4.24 3.8 - 5.2 [place] 10e12/L [facility] Hemoglobin 13.2 11.7 - [place] 15.7 g/dL [facility] Hematocrit 38.5 35.0 - [place] 47.0 % [facility] MCV 91 78 - 100 [facility] MCH 31.1 26.5 - [place] 33.0 pg [facility] MCHC 34.3 31.5 - [place] 36.5 g/dL [facility] RDW 12.5 10.0 - [place] 15.0 % [facility] Platelet Count 429 150 - 450 [place] 10e9/L [facility] Diff Method Automated [facility] % Neutrophils 42.4 % [facility] % Lymphocytes 46.3 % [facility] % Monocytes 6.9 % [facility] % Eosinophils 3.7 % [facility] % Basophils 0.5 % [facility] % Immature 0.2 % [place] Granulocytes [facility] Nucleated RBCs 0 0 /100 [facility] Absolute 3.9 1.6 - 8.3 [place] Neutrophil 10e9/L [facility] Absolute 4.3 0.8 - 5.3 [place] Lymphocytes 10e9/L [facility] Absolute 0.6 0.0 - 1.3 [place] Monocytes 10e9/L [facility] Absolute 0.3 0.0 - 0.7 [place] Eosinophils 10e9/L [facility] Absolute 0.1 0.0 - 0.2 [place] Basophils 10e9/L [facility] Abs Immature 0.0 0 - 0.4 [place] Granulocytes 10e9/[facility] Absolute 0.0 [place] Nucleated RBC [facility] Specimen Anatomical Collection Method Collection Time Receive d Time (Source) Location / / Volume Laterality Blood specimen 04/19/2016 9:25 PM 016 9:28 (specimen) CDT PM CDT Kyleigh Sandoval MD LAB - BLOOD ORDERABLES Performing Organization Address [facility]/ZIP Code Phon e Number [place] [address] [address] [place], [place] [address] [phone] [facility] [address] [place], [place] [address] [place] [address] D dimer quantitative (04/19/2016 9:25 PM CDT) athologist Signature D Dimer 0.5 0.0 - 0.50 [facility] ug/ml [facility] Comment: This D-dimer assay is intended for use i n conjuntion with a clinical pretest probability assessment model to exclude pulmonary embolism (PE) and as an aid in the diagnosis of deep venous thrombo sis (DVT) in outpatients suspected of PE or DVT. The cut-off value is 0.5??g/mL [facility]. Specimen Anatomical Collection Method Collection Time Receive d Time (Source) Location / / Volume Laterality Blood specimen 04/19/2016 9:25 PM 016 9:28 (specimen) CDT PM CDT Kyleigh Sandoval MD LAB - BLOOD ORDERABLES Performing Organization Address City/[facility]/ZIP [facility] Phon e Number M [facility] [address] [place], [place] [address] [place] [id number], [place] [phone] documented in this encounter Visit Diagnoses Diagnosis Hemoptysis Upper respiratory tract infection, unspe cified type documented in this encounter Additional Health Concerns Assessment Noted Time PHQ-9 Depression Total Score: 14 04/11/2016 7:23 AM CD T documented as of this encounter Care Teams Professional Benefits Sales Consultant Relationship Specialty Start Date End Date Lalita Perez MD PCP - General Student in [employer] 10/21/1404/21 care education/training program documented as of this encounter
--- OUTSIDE RECORDS SUMMARY | 2022-04-09 07:21 | XMS_ITS | Encounter Summary ---
:1990 Author Organization [place] Address [facility] [address] Care Team Providers Name Role Phone Lalita Perez MD Primary Care Provider Reason for Visit Reason Comments Cough x 10 days cough. states in t he last 2 days been coughing up clear mucus with blood in it. Encounter Details Date Type Department Care Team Description 04/19/2016 Office Visit [place] [facility] Richard Huntley, Blood in sputum Care (Primary Dx) [address] [facility] [place] [address] MEDICINE [phone] [facility] [address] [place] [address] [phone] (Wo rk) Social History Tobacco Use Types [...] Sign Reading Time Taken Comments Blood Pressure 134/86 04/19/2016 7:47 PM CDT Pulse 68 04/19/2016 7:47 PM CDT Temperature 37.4 ??C (99.4 ??F) 04/19/2016 7:47 PM CDT Respiratory Rate - - Oxygen Saturation 98% 04/19/2016 7:47 PM CDT Inhaled Oxygen Concentration - - Weight 87 kg (191 lb 14.4 oz) 04/19/2016 7:47 PM CDT Height 162.6 cm (5' 4) 04/19/2016 7:47 PM CDT Body Mass Index 32.94 04/19/2016 7:47 PM CDT documented in this encounter Progress Notes Richard Huntley MD - 04/19/2016 8:27 PM CDT [facility] Progress Note Richard Huntley MD, MPH 04/19/2016 History: Rena Turner is a pleasant 26 year old year old female with a chief complaint of cough ,dyspneax 2 days. She states that she has noted blood in the sputum that she expectorates. No fever or chills. No night sweats or chills. No weight loss. No active TB in immediate salesperson burial plots is referred. No recent surgery or distant travel or immobilization is referred. No FH or personal HX of arterial orvenous thrombosis is referred. She has been on BCP x 8 years. NOT on any anticoagulant. No Hx of bleeding tendency or easy bruisability. No smoking history. Assessment and Plan: Cough,dyspnea and blood in sputum: The patient was directed to [facility] for further evaluation and management. The patient agrees w this plan. I spoke w Dr. Dunn at [facility] regarding the patient by phone this evening. . Physical Exam: BP 134/86 mmHg Pulse 68 Temp(Src) 99.4 ??F (37.4 ??C) (Oral) Ht 5' 4 (1.626 m) Wt 191 lb 14.4 oz (87.045 kg) BMI 32.92 kg/m2 SpO2 98% ? No Constitutional: Patient is in no distress The patient is pleasant and cooperative. HEENT: Head: Head is atraumatic, normocephalic. Eyes: Pupils are equal, round and reactive to light and accomodation. Sclera is non-icteric. No conjunctival injection, or exudate noted. Extraocular motion is intact. Visual acuity is intact bilaterally. Ears: External acoustic canals are patent and clear. There is no erythema and bulging( exudate) of the ( R/L ) tympanic membrane(s ). Nose: No Nasal congestion w/o drainage or mucosal ulceration is noted. Throat: Oral mucosa is moist. No oral lesions are noted. No posterior pharyngeal hyperemia nor exudate noted. Neck Supple. There is no cervical lymphadenopathy. No nuchal rigidity noted. There is no meningismus. Cardiovascular: Heart is regular to rate and rhythm. No murmur is noted. Lungs: Clear in the anterior and posterior pulmonary castro. Abdomen: Soft and non-tender. Back No flank tenderness is noted. Extremeties No edema, no calf tenderness. Neuro: No focal deficit. Skin No petechiae or purpura is noted. There is no rash. Mood Normal Data: All new lab and imaging data was reviewed. Results for orders placed or performed in visit on 04/09/15 Glucose Result Value Ref Range Glucose 87 70 - 99 mg/dL LIPID REFLEX TO DIRECT LDL PANEL Result Value Ref Range Cholesterol 210 (H) <200 mg/dL Triglycerides 234 (H) 0 - 150 mg/dL HDL Cholesterol 50 (L) >50 mg/dL LDL Cholesterol Calculated 113 0 - 129 mg/dL VLDL-Cholesterol 47 (H) 0 - 30 mg/dL Cholesterol/HDL Ratio 4.2 0.0 - 5.0 documented in this encounter Plan of Treatment Not on filedocumented as of this encounter Visit Diagnoses Diagnosis Blood in sputum - Primary Hemoptysis, unspecified documented in this encounter Additional Health Concerns Assessment Noted Time PHQ-9 Depression Total Score: 14 04/11/2016 7:23 AM CD T documented as of this encounter Care Teams Group Leader Wafer Polishing Relationship Specialty Start Date End Date Lalita Perez MD PCP - General Student in [employer] 10/21/1404/21 care education/training program documented as of this encounter
--- OUTSIDE RECORDS SUMMARY | 2022-04-09 07:21 | XMS_ITS | Encounter Summary ---
:1990 Author Organization [place] Address [facility] [place] [address] Care Team Providers Name Role Phone Lalita Perez MD Primary Care Provider Reason for Visit Reason Comments Urgent Care Sinus Problem sinus pain, bilat ear pain, [place] phlegm, HARPER, ST, PND x 6 days OTC: sinus, nyquil, dayquil Encounter Details Date Type Department Care Team Description 12/04/2015 Office Visit [place] [facility] Phillip Crowder r acute Care IRENE Bob nonsuppurative otitis [address] [facility] [address] [place] [address] S (Primary Dx) [phone] [place], [place] [id number] Social History Tobacco Use Types Packs/Day Years [...] Sign Reading Time Taken Comments Blood Pressure 114/82 12/04/2015 9:06 PM CDT Pulse 80 12/04/2015 9:06 PM CDT Temperature 37.3 ??C (99.1 ??F) 12/04/2015 9:06 PM CDT Respiratory Rate - - Oxygen Saturation 99% 12/04/2015 9:06 PM CDT Inhaled Oxygen Concentration - - Weight 81.6 kg (179 lb 14.4 oz) 12/04/2015 9:06 PM CDT Height - - Body Mass Index 30.88 10/02/2015 5:21 PM PIPELINE CONTROLLER documented in this encounter Progress Notes Arianna Crowder, Phillip Bob PA-C - 12/04/2015 9:13 PM CDT SUBJECTIVE: Rena Turner presents to clinic today for evaluation of nasal congestion, purulent rhinorrhea, post-nasal drainage, sinus pain/pressure x 6 days. Now, over past several days, she has also developed significant, bilateral, ear pain. Positive fever (T-max 99 for past 6 days). No C/N/V/D, rash, abdominal pain or any other acute illness sxs. Despite above acute illness sxs, patient still alert, active and taking in PO solids and fluids. Normal BM's and urination. OBJECTIVE: BP 114/82 mmHg Pulse 80 Temp(Src) 99.1 ??F (37.3 ??C) (Oral) Wt 179 lb 14.4 oz (81.602 kg) SpO2 99% General appearance: alert and no apparent distress Skin color is pink and without rash. HEENT: Conjunctiva not injected. Sclera clear. Left TM is intact, dull, red and opaque Right TM is intact, dull, red and opaque Nasal mucosa is red and swollen. Oropharyngeal exam is normal other than evidence of PND: no lesions, erythema, adenopathy or exudate. Maxillar sinuses are tender bilaterally. Neck is supple with no adenopathy CARDIAC:NORMAL - regular rate and rhythm without murmur. RESP: Normal - CTA without rales, rhonchi, or wheezing. ASSESSMENT/PLAN: (H65.193) Other acute nonsuppurative otitis media of both ears (primary encounter diagnosis) Plan: amoxicillin (AMOXIL) 875 MG tablet Follow-up with PCP if sxs change, worsen or fail to resolve with above tx. documented in this encounter Nursing Notes Alexandra Boykin RN - 12/04/2015 9:09 PM CDT Chief Complaint Patient presents with ??? Urgent Care ??? Sinus Problem sinus pain, bilat ear pain, [place] phlegm, HARPER, ST, PND x 6 days OTC: sinus, nyquil, dayquil Initial BP 114/82 mmHg Pulse 80 Temp(Src) 99.1 ??F (37.3 ??C) (Oral) Wt 179 lb 14.4 oz (81.602kg) SpO2 99% Estimated body mass index is 30.86 kg/(m^2) as calculated from the following: Height as of 10/02/15: 5' 4 (1.626 m). Weight as of this encounter: 179 lb 14.4 oz (81.602 kg). BP completed using cuff size: regular Alexandra Boykin CMA 12/04/2015 9:09 PM documented in this encounter Plan of Treatment Not on filedocumented as of this encounter Visit Diagnoses Diagnosis Other acute nonsuppurative otitis media of both ears - Primary documented in this encounter Care Teams Energy Economist Relationship Specialty Start Date End Date Lalita Perez MD PCP - General Student in [employer] 10/21/1404/21 care education/training program documented as of this encounter
--- OUTSIDE RECORDS SUMMARY | 2022-04-09 07:21 | XMS_ITS | Encounter Summary ---
:1990 Author Organization [place] Address [address] [place] [address] Care Team Providers Name Role Phone Joseph Montague MD Primary Care Provider Reason for Visit Reason Comments Physical Encounter Details Date Type Department Care Team Description 04/05/2015 Office Visit [facility] Joseph Montague MD Routine general medical examination at a health care facility (Primary Dx); [facility] - GABRIEL (generalized anxiety dis order); [address] Contraceptive management [place] [phone] [address] [facility] [phone] [facility] [place] [address] Social History Tobacco Use Types Packs/Day [...] Sign Reading Time Taken Comments Blood Pressure 114/70 04/05/2015 3:22 PM CDT Pulse 92 04/05/2015 3:22 PM CDT Temperature 37.2 ??C (98.9 ??F) 04/05/2015 3:22 PM CDT Respiratory Rate 13 04/05/2015 3:22 PM CDT Oxygen Saturation 99% 04/05/2015 3:22 PM CDT Inhaled Oxygen Concentration - - Weight 84.8 kg (187 lb) 04/05/2015 3:22 PM CDT Height 162.6 cm (5' 4) 04/05/2015 3:22 PM CDT Body Mass Index 32.1 04/05/2015 3:22 PM CDT documented in this encounter Patient Instructions Patient InstructionsKiersten Oliveira, PULMONARY PHYSICIAN - 04/05/2015 3:22 PM CDT We treva some basic screening labs today. If anything comes back abnormal, I will call you. If everything looks ok, you can expect a letter in the mail. Preventive Health Recommendations Female Ages 26 - [...] instead of white grains and rice. ??? For bone health: Eat calcium-rich foods or take calcium pills (500 to 600 mg) twice a day with food. Also take vitamin D (1000 IUs) each day. Lifestyle ??? Exercise at least 150 minutes a week (30 minutes a day, 5 days of the week). This will help you control your weight and prevent disease. ??? Limit alcohol to one drink per day. ??? No smoking. ?? Wear sunscreen to prevent skin cancer. ?? See your dentist every six months for an exam and cleaning. ?? documented in this encounter Progress Notes Maria Eugenia Min LPN - 04/17/2015 12:56 PM CDT Quick Note: Result letter mailed to pt. Maria Eugenia Min LPN. Junior Mccormick MD - 04/06/2015 11:29 AM CDT I discussed this case in depth with Dr. Montague and agree with the alcantara components of the history, assessment and plan. Joseph Montague MD - 04/05/2015 3:22 PM CDT SUBJECTIVE: CC: Rena Resendiz is an 25 year old woman who presents for preventive health visit. Med check: Lexapro - no problems taking it, really like how it helps her symptoms. No side effects. Lamictal - causing crazy emiliano causing her to spend all of her money. Stopped 3 weeks ago. Feels much better since. No suicidal thoughts. Healthy Habits: ?? Do you get at least three servings of calcium containing foods daily (dairy, green leafy vegetables, etc.)? Yes ?? Amount of exercise or daily activities, outside of work: 2-3 day(s) per week. Running and playingwith kids at school during their gym class ?? Problems taking medications regularly No ?? Medication side effects: See above. ?? Have you had an eye exam in the past two years? no ?? Do you see a dentist twice per year? Last visit 1 1/2 years ago; has a dentist she will get in with ?? Do you have sleep apnea, excessive snoring or daytime drowsiness?yes sleep troubles and day time drowsiness Other concerns to address: none Today's PHQ-2 Score: 2 Abuse: Current or Past(Physical, Sexual or Emotional)- No Do you feel safe in your environment - Yes History Substance Use Topics ??? Smoking status: Current Every Day Smoker -- 1.00 packs/day for 8 years Types: Cigarettes ??? Smokeless tobacco: Never Used ??? Alcohol Use: No The patient does not drink >3 drinks per day nor >7 drinks per week. No results for input(s): CHOL, HDL, LDL, TRIG, CHOLHDLRATIO in the last [id number] hours. Reviewed orders with patient. Reviewed health maintenance and updated orders accordingly - Yes Mammo Decision Support: Mammogram not appropriate for this patient based on age. Last Mammo:No results found. History of abnormal Pap smear: NO - age 21-29 PAP every 3 years recommended All Histories reviewed and updated in [facility]. Past Medical History Diagnosis Date ??? Generalized anxiety disorder ??? Depression with anxiety ??? Bipolar disorder ROS: C: NEGATIVE for fever, chills, change in weight I: NEGATIVE for worrisome rashes, moles or lesions E: NEGATIVE for vision changes or irritation ENT: NEGATIVE for ear, mouth and throat problems R: NEGATIVE for significant cough or SOB B: NEGATIVE for masses, tenderness or discharge CV: NEGATIVE for chest pain, palpitations or peripheral edema GI: NEGATIVE for nausea, abdominal pain, heartburn, or change in bowel habits : NEGATIVE for unusual urinary or vaginal symptoms. Periods are regular. M: NEGATIVE for significant arthralgias or myalgia N: NEGATIVE for weakness, dizziness or paresthesias P: NEGATIVE for changes in mood or affect OBJECTIVE: BP 114/70 mmHg Pulse 92 Temp(Src) 98.9 ??F (37.2 ??C) (Oral) Resp 13 Ht 5' 4 (1.626 m) Wt187 lb (84.823 kg) BMI 32.08 kg/m2 SpO2 99% LMP 03/05/2015 GENERAL APPEARANCE: healthy, alert and no distress EYES: Eyes grossly normal to inspection, PERRL and conjunctivae and sclerae normal HENT: ear canals and TM's normal, nose and mouth without ulcers or lesions, oropharynx clear and oral mucous membranes moist NECK: no adenopathy, no asymmetry, masses, or scars and thyroid normal to palpation RESP: lungs clear to auscultation - no rales, rhonchi or wheezes BREAST: normal without masses, tenderness or nipple discharge and no palpable axillary masses or adenopathy CV: regular rates and rhythm, normal S1 S2, no S3 or S4, no murmur, click or rub, no peripheral edema and peripheral pulses strong ABDOMEN: soft, nontender, no hepatosplenomegaly, no masses and bowel sounds normal (female): normal female external genitalia, vaginal mucosa pink, moist, well rugated and normal cervix, adnexae, and uterus without masses. Normal vaginal discharge MS: no musculoskeletal defects are noted and gait is age appropriate without ataxia SKIN: no suspicious lesions or rashes NEURO: Normal strength and tone, sensory exam grossly normal, mentation intact and speech normal PSYCH: mentation appears normal and affect normal/bright ASSESSMENT/PLAN: 1. Routine general medical examination at a health care facility - LIPID REFLEX TO DIRECT LDL PANEL - PAP IMAGED THIN LAYER SCREEN - Glucose 2. GABRIEL (generalized anxiety disorder) - escitalopram (LEXAPRO) 20 MG tablet; Take 1 tablet (20 mg) by mouth daily Dispense: 90 tablet; Refill: 2 3. Contraceptive management - desogestrel-ethinyl estradiol (KARIVA) 0.15-0.02/0.01 MG (/5) per tablet; Take 1 tablet by mouthdaily Dispense: 90 tablet; Refill: 3 regular exercise healthy diet/nutrition Estimated body mass index is 30.79 kg/(m^2) as calculated from the following: Height as of 01/16/15: 5' 5 (1.651 m). Weight as of 02/20/15: 185 lb (83.915 kg). Weight management plan: Diet regimen was discussed and plan is self-directed dieting: reduce calories and reduce carbs. Counseling Resources: ATP IV Guidelines Pooled Cohorts Equation Calculator Breast Cancer Risk Calculator FRAX Risk Assessment ICSI Preventive Guidelines Dietary Guidelines for Americans, 2010 USDA's MyPlate D/w Dr. Mccormick, attending Joseph Montague MD [facility] CHRISTINA documented in this encounter Nursing Notes Kiersten Oliveira CMA - 04/05/2015 3:24 PM CDT Chief Complaint Patient presents with ??? Physical Initial BP 114/70 mmHg Pulse 92 Temp(Src) 98.9 ??F (37.2 ??C) (Oral) Resp 13 Ht 5' 4 (1.626m) Wt 187 lb (84.823 kg) BMI 32.08 kg/m2 SpO2 99% LMP 03/05/2015 Estimated body mass index is 32.08 kg/(m^2) as calculated from the following: Height as of this encounter: 5' 4 (1.626 m). Weight as of this encounter: 187 lb (84.823 kg). BP completed using cuff size: shikha Oliveira MA documented in this encounter Plan of Treatment Not on filedocumented as of this encounter Procedures Procedure Name Priority Date/Time Associated Diagnosis Comme nts PAP IMAGED THIN Routine 04/05/2015 12:00 AM Routine general Re sults for this LAYER SCREEN CDT medical examination procedur e are in at a health care the results facility section. documented in this encounter Results (ABNORMAL) LIPID REFLEX TO DIRECT LDL PANEL (04/09/2015 8:24 AM CDT) P athologist Signature Cholesterol 210 (H) <200 mg/dL [facility] Comment: LDL Cholesterol is the primary guide to therapy. The NCEP recommends further evaluation of: patients with cholesterol greater than 200 mg/dL if additional risk facto rs are present, cholesterol greater than 240 mg/dL, triglycerides greater than 1 50 mg/dL, or HDL less than 40 mg/dL. Triglycerides 234 (H) 0 - 150 mg/dL [facility] HDL Cholesterol 50 (L) >50 mg/dL [facility] LDL Cholesterol Calculated 113 0 - 129 mg/dL [facility] Comment: LDL Cholesterol is the primary guide to therapy: LDL-cholesterol goal in high risk patients is <100 mg/dL and in very high risk patients is <70 mg/dL. VLDL-Cholesterol 47 (H) 0 - 30 mg/dL [facility] Cholesterol/HDL Ratio 4.2 0.0 - 5.0 [facility] Specimen Anatomical Collection Method Collection Time Receive d Time (Source) Location / / Volume Laterality Blood specimen 04/09/2015 8:24 AM 015 8:29 (specimen) CDT AM CDT Joseph Montague MD LAB - BLOOD ORDERABLES Performing Organization Address City/[facility]/ZIP Code Phon e Number [facility] [address] [place] [id number] Glucose (04/09/2015 8:24 AM CDT) P athologist Signature Glucose 87 70 - 99 [facility] mg/dL [facility] Specimen Anatomical Collection Method Collection Time Receive d Time (Source) Location / / Volume Laterality Blood specimen 04/09/2015 8:24 AM 015 8:29 (specimen) CDT AM CDT Joseph Montague MD LAB - BLOOD ORDERABLES Performing Organization Address City/[facility]/ZIP Code Phon e Number [facility] [address] [place] [id number] PAP IMAGED THIN LAYER SCREEN (04/05/2015 12:00 AM CDT) Component Value Ref Test Analysis Performed At Patholo gist Range Method Time Signature PAP NIL COPATH Copath Report COPATH Patient Name: RENA RESENDIZ MR#: [id number] Specimen #: [id number] Collected: 04/05/2015 Received: 04/06/2015 Reported: 04/09/2015 13:57 Ordering Phy(s): JOSEPH MONTAGUE SPECIMEN/STAIN PROCESS: Pap imaged thin layer prep screening (Surepath, FocalPoint w ith guided screening) ? Pap-Cyto x 1 SOURCE: Cervical, endocervical ---- Pap imaged thin layer prep screening (Surepath, FocalPoint with guided screening) SPECIMEN ADEQUACY: Satisfactory for evaluation. -Transformation zone component absent. CYTOLOGIC INTERPRETATION: Negative for Intraepithelial Lesion or Malignancy Electronically signed out by: CESARIO Pride (ASCP) Processed and screened at [facility] CLINICAL HISTORY: Papanicolaou Test Limitations: ??Cervical cytology is a scre ening test with limited sensitivity; regular screening is critical for cancer prevention; Pap tests are primarily effective for the diagnosis/prevention of squamous cell carcinoma, not adenoca rcinomas or other cancers. TESTING LAB LOCATION: [address] ??[id number] COLLECTION SITE: Client: ??[facility] Location: [facility] (R) Specimen (Source) Anatomical Collection Method Collection Time Re ceived Time Location / / Volume Laterality Cytologic 04/05/2015 04/06/2015 10:3 5 material AM CDT (specimen) Joseph Montague MD LAB - OPTIME CLINICAL SPECIM EN Performing Organization Address City/State/ZIP Code Phon e Number COPATH documented in this encounter Visit Diagnoses Diagnosis Routine general medical examination at a health care facility - Primary GABRIEL (generalized anxiety disorder) Generalized anxiety disorder Contraceptive management Unspecified contraceptive management documented in this encounter Care Teams Stockroom Inventory Clerk Relationship Specialty Start Date End Date Joseph Montague MD PCP - General Student in organized health 10/21/1404/21 care education/training program documented as of this encounter
--- OUTSIDE RECORDS SUMMARY | 2022-04-09 07:21 | XMS_ITS | Encounter Summary ---
:1990 Author Organization [place] Address [address] [place] [address] Care Team Providers Name Role Phone Lalita Perez MD Primary Care Provider Reason for Visit Reason Onset Date Comments Call Back 05/05/2016 Encounter Details Date Type Department Care Team Description 05/05/2016 Telephone [facility] Lalita Sepulveda MD Call Back [address] [employer] [facility] - [place] [phone] [address] [facility] [phone] [facility] [place] [phone] (Wo rk) Social History Tobacco Use Types [...] this encounter Miscellaneous Notes Telephone Encounter - Nadine Menjivar RN - 05/05/2016 5:56 PM CDT Patient was prescribed Amoxicillin for ear infection. Is on day 7 of the antibiotic with some improvement in ear pain, but not completely resolved yet. Is having two diarrhea stools per day. No blood in the stool. Is eating active culture yogurt. Advised that diarrhea is a side effect of an antibiotic. If medication is changed, may still have similar side effect. Patient will complete the remaining 3 days. If diarrhea increases or she notes blood in the stool, will call back. Has been drinking fluids. No symptoms of dehydration. Also advised patient that diarrhea should resolve a few days after completion of antibiotic, and if it doesn't she should notify the clinic. No further questions. Will call back if any other questions or concerns. Charanjit Menjivar RN Telephone Encounter - Imelda Arvizu RN - 05/05/2016 5:02 PM CDT Pt LM at 4:25 pm requesting call back to discuss about possible SE from abx. Call back # is [phone]. Please call pt to go over the sx's. Thanks. Alvaro formal service waiter Nurse documented in this encounter Plan of Treatment Not on filedocumented as of this encounter Visit Diagnoses Not on filedocumented in this encounter Additional Health Concerns Assessment Noted Time PHQ-9 Depression Total Score: 14 04/11/2016 7:23 AM CD T documented as of this encounter Care Teams Embosser Apprentice Relationship Specialty Start Date End Date Lalita Perez MD PCP - General Student in organized health 10/21/1404/21 care education/training program documented as of this encounter
--- OUTSIDE RECORDS SUMMARY | 2022-04-09 07:21 | XMS_ITS | Encounter Summary ---
:1990 Author Organization [place] Address [address] [place] [address] Care Team Providers Name Role Phone Lalita Perez MD Primary Care Provider Reason for Visit Reason Onset Date Comments Refill Request 12/01/2014 ESCITALOPRAM 10MG Encounter Details Date Type Department Care Team Description 12/01/2014 Refill [facility] Lalita Toledo MD Refill Request [address] [employer] [facility] (ESCITALOPRAM 10MG) [place] [phone] 74[address] [facility] [phone] [facility] [place] [phone] (Wo rk) Social History Tobacco Use Types [...] this encounter Miscellaneous Notes Telephone Encounter - Alissa Blank, RN - 12/04/2014 1:06 PM CDT Med request: escitalopram Date of last OV: 11/28/14 Date of last refill: 10/17/14 Approved per standing orders:, has appt scheduled for 01/02/15 Hillary Blank, RN Telephone Encounter - Domitila Castro - 12/01/2014 9:12 AM CDT Refill request for: ESCITALOPRAM 10 mg Last prescribed by provider: Date: 10/17/2014 Quantity 30 w/ 1 refills Last filled through pharmacy: Date: 11/05/2014 Pharmacy Comments: PATTIE Castro RT(R) documented in this encounter Plan of Treatment Not on filedocumented as of this encounter Visit Diagnoses Diagnosis GABRIEL (generalized anxiety disorder) - Kimberli bear Generalized anxiety disorder documented in this encounter Care Teams Bath Mix Operator Relationship Specialty Start Date End Date Lalita Perez MD PCP - General Student in [facility] health 10/21/1404/21 care education/training program documented as of this encounter
--- OUTSIDE RECORDS SUMMARY | 2022-04-09 07:21 | XMS_ITS | Encounter Summary ---
:1990 Author Organization [place] Address [facility] [place] [address] Care Team Providers Name Role Phone Lalita Perez MD Primary Care Provider Reason for Visit Reason Comments Ear Problem Encounter Details Date Type Department Care Team Description 08/15/2016 Office Visit [facility] Rebeka French suppurative otitis media of right ear without spontaneous rupture of tympanic membrane, recurrence not specified (Primary Dx); Clinic Dev Mays PA-C Acute sinusitis with symptoms > 10 days [address] [facility] [address] [place] [address] [place] [address] Social History Tobacco Use Types Packs/Day [...] Sign Reading Time Taken Comments Blood Pressure 110/70 08/15/2016 4:09 PM COMPENSATION AND BENEFITS ADVISOR Pulse 91 08/15/2016 4:09 PM COMPENSATION AND BENEFITS ADVISOR Temperature 37 ??C (98.6 ??F) 08/15/2016 4:09 PM COMPENSATION AND BENEFITS ADVISOR Respiratory Rate - - Oxygen Saturation 99% 08/15/2016 4:09 PM COMPENSATION AND BENEFITS ADVISOR Inhaled Oxygen Concentration - - Weight 89 kg (196 lb 4.8 oz) 08/15/2016 4:09 PM COMPENSATION AND BENEFITS ADVISOR Height 160.7 cm (5' 3.25) 08/15/2016 4:09 PM COMPENSATION AND BENEFITS ADVISOR Body Mass Index 34.5 08/15/2016 4:09 PM COMPENSATION AND BENEFITS ADVISOR documented in this encounter Patient Instructions Patient InstructionsRebeka French PA-C - 08/15/2016 4:21 PM COMPENSATION AND BENEFITS ADVISOR Call with any questions ENSATION AND BENEFITS ADVISOR documented in this encounter Progress Notes Rebeka French PA-C - 08/15/2016 8:47 AM CST SUBJECTIVE: Rena Turner is a 26 year old female who presents to clinic today for the following health issues: Acute Illness Acute illness concerns: ear pain Onset: 11 days ago ?? Fever: YES- 100.1 ?? Chills/Sweats: YES- off and on ?? Headache (location?): YES ?? Sinus Pressure:no ?? Conjunctivitis: no ?? Ear Pain: YES: bilateral ?? Right feels full and clogged ?? Left painful ?? Rhinorrhea: YES ?? Congestion: YES ?? Sore Throat: YES ?? Cough: YES-productive of yellow/red sputum, productive of green sputum X 5 days ?? Wheeze: no ?? Decreased Appetite: YES ?? Nausea: YES ?? Vomiting: no ?? Diarrhea: no ?? Dysuria/Freq.: no ?? Fatigue/Achiness: YES ?? Sick/Strep Exposure: YES Therapies Tried and outcome: cortisporin otic drops, advil, dayquil, nyquil Problem list, Medication list, Allergies, and Medical/Social/Surgical histories reviewed in [facility] andupdated as appropriate. ROS: ROS otherwise negative OBJECTIVE: BP 110/70 mmHg Pulse 91 Temp(Src) 98.6 ??F (37 ??C) (Oral) Ht 5' 3.25 (1.607 m) Wt 196 lb 4.8 oz (89.041 kg) BMI 34.48 kg/m2 SpO2 99% Body mass index is 34.48 kg/(m^2). GENERAL: alert, no distress HENT: ear canals- normal; TMs- erythemic on right; Nose- normal; Mouth- no ulcers, no lesions; max sinus tenderness NECK: tonsillar LAD RESP: lungs clear to auscultation - no rales, no rhonchi, no wheezes CV: regular rates and rhythm, normal S1 S2, no S3 or S4 and no murmur, no click or rub Diagnostic test results: No results found for this or any previous visit (from the past 24 hour(s)). ASSESSMENT/PLAN: (H66.001) Acute suppurative otitis media of right ear without spontaneous rupture of tympanic membrane, recurrence not specified (primary encounter diagnosis) Comment: begin antibiotics Plan: amoxicillin-clavulanate (AUGMENTIN) 875-125 MG per tablet (J01.90) Acute sinusitis with symptoms > 10 days Comment: Plan: amoxicillin-clavulanate (AUGMENTIN) 875-125 MG per tablet See Patient Instructions Rebeka French PA-C [facility] ENSATION AND BENEFITS ADVISOR documented in this encounter Nursing Notes Kylah Vieira LPN - 08/15/2016 4:11 PM CST Chief Complaint Patient presents with ??? Ear Problem Initial BP 110/70 mmHg Pulse 91 Temp(Src) 98.6 ??F (37 ??C) (Oral) Ht 5' 3.25 (1.607 m) Wt 196 lb 4.8 oz (89.041 kg) BMI 34.48 kg/m2 SpO2 99% Estimated body mass index is 34.48 kg/(m^2) ascalculated from the following: Height as of this encounter: 5' 3.25 (1.607 m). Weight as of this encounter: 196 lb 4.8 oz (89.041 kg). BP completed using cuff size: regular ENSATION AND BENEFITS ADVISOR documented in this encounter Plan of Treatment Not on filedocumented as of this encounter Visit Diagnoses Diagnosis Acute suppurative otitis media of right ear without spontaneous rupture of tympanic membrane, recurrence not specified - [facility] Acute sinusitis with symptoms > 10 days Acute sinusitis, unspecified documented in this encounter Additional Health Concerns Assessment Noted Time PHQ-9 Depression Total Score: 14 04/11/2016 7:23 AM CD T documented as of this encounter Care Teams Hamper Maker Relationship Specialty Start Date End Date Lalita Perez MD PCP - General Student in [facility] health 10/21/1404/21 care education/training program documented as of this encounter
--- OUTSIDE RECORDS SUMMARY | 2022-04-09 07:21 | XMS_ITS | Encounter Summary ---
:1990 Author Organization [place] Address [facility] [place] [address] Care Team Providers Name Role Phone Lalita Perez MD Primary Care Provider Reason for Visit Reason Comments Sinus Problem Encounter Details Date Type Department Care Team Description 04/29/2016 Office Visit [facility] Gonzalo Yang MD Acute suppurative otitis media of right ear without spontaneous rupture of tympanic membrane, recurrence not specified (Primary Dx); Dev [address] [facility] Acute non-recurrent maxillar y sinusitis; [address] [facility] [place] [address] [place] [address] Social History Tobacco Use Types Packs/Day [...] Sign Reading Time Taken Comments Blood Pressure 108/70 04/29/2016 8:18 AM CDT Pulse 77 04/29/2016 8:18 AM CDT Temperature 36.7 ??C (98 ??F) 04/29/2016 8:18 AM CDT Respiratory Rate 20 04/29/2016 8:18 AM CDT Oxygen Saturation 98% 04/29/2016 8:18 AM CDT Inhaled Oxygen Concentration - - Weight 87.1 kg (192 lb) 04/29/2016 8:18 AM CDT Height 162.6 cm (5' 4) 04/29/2016 8:18 AM CDT Body Mass Index 32.96 04/29/2016 8:18 AM CDT documented in this encounter Patient Instructions Patient InstructionsGonzalo Yang MD - 04/29/2016 8:49 AM CDT Amoxicillin 875 mg twice per day for 10 days Tessalon (benzonatate) 100 mg 1 up to 3 times per day as needed to reduce your cough documented in this encounter Progress Notes Gonzalo Yang MD - 04/29/2016 8:22 AM CDT SUBJECTIVE: Rena Turner is a 26 year old female who presents to clinic today for the following health issues: Acute Illness Acute illness concerns: cough, sinus Onset: 2 weeks ?? Fever: no ?? Chills/Sweats: YES ?? Headache (location?): YES ?? Sinus Pressure:YES ?? Conjunctivitis: no ?? Ear Pain: YES: bilateral ?? Rhinorrhea: no ?? Congestion: YES ?? Sore Throat: no ?? Cough: YES ?? Wheeze: no ?? Decreased Appetite: YES ?? Nausea: YES ?? Vomiting: no ?? Diarrhea: YES ?? Dysuria/Freq.: no ?? Fatigue/Achiness: YES ?? Sick/Strep Exposure: no Therapies Tried and outcome: tylenol, OTC sinus medication Was evaluated initially in UC then sent to the ED just over 1 week ago d/t cough which included bloody sputum. Labs and CXR were done, no cause found. Has not been treated w/ atbx. Problem list and histories reviewed & adjusted, as indicated. OBJECTIVE: BP 108/70 mmHg Pulse 77 Temp(Src) 98 ??F (36.7 ??C) Resp 20 Ht 5' 4 (1.626 m) Wt 192 lb (87.091 kg) BMI 32.94 kg/m2 SpO2 98% LMP 04/05/2016 (Approximate) Body mass index is 32.94 kg/(m^2). GEN: No distress SKIN: No rashes HEENT: PERRL. EOMI. Moisés canals clear. R TM w/ white effusion 1/[address] way up the TM. Erythema of TM. LeftTM is clear. Nasal mucosa non-edematous w/ white mucus. Discomfort w/ palpation over the maxillary sinuses. OP moist. Cobblestoning noted. NECK: Supple. No LAD, JVD or TM. .repsex ASSESSMENT/PLAN: ICD-10-CM 1. Acute suppurative otitis media of right ear without spontaneous rupture of tympanic membrane, recurrence not specified H66.001 amoxicillin (AMOXIL) 875 MG tablet 2. Acute non-recurrent maxillary sinusitis J01.00 amoxicillin (AMOXIL) 875 MG tablet 3. Cough R05 benzonatate (TESSALON) 100 MG capsule Patient Instructions Amoxicillin 875 mg twice per day for 10 days Tessalon (benzonatate) 100 mg 1 up to 3 times per day as needed to reduce your cough Gonzalo Yang MD [facility] documented in this encounter Nursing Notes Honey Aranda, NIA - 04/29/2016 8:22 AM CDT Chief Complaint Patient presents with ??? Sinus Problem Initial BP 108/70 mmHg Pulse 77 Temp(Src) 98 ??F (36.7 ??C) Resp 20 Ht 5' 4 (1.626 m) Wt 192 lb (87.091 kg) BMI 32.94 kg/m2 SpO2 98% LMP 04/05/2016 (Approximate) Estimated body mass index is 32.94 kg/(m^2) as calculated from the following: Height as of this encounter: 5' 4 (1.626 m). Weight as of this encounter: 192 lb (87.091 kg). BP completed using cuff size: regular, right arm documented in this encounter Plan of Treatment Not on filedocumented as of this encounter Visit Diagnoses Diagnosis Acute suppurative otitis media of right ear without spontaneous rupture of tympanic membrane, recurrence not specified - Kimberli bear Acute non-recurrent maxillary sinusitis Cough documented in this encounter Additional Health Concerns Assessment Noted Time PHQ-9 Depression Total Score: 14 04/11/2016 7:23 AM CD T documented as of this encounter Care Teams Rag Shredder Relationship Specialty Start Date End Date Lalita Perez MD PCP - General Student in [facility] health 10/21/1404/21 care education/training program documented as of this encounter
--- OUTSIDE RECORDS SUMMARY | 2022-04-09 07:21 | XMS_ITS | Encounter Summary ---
:1990 Author Organization [place] Address [address] [place] [address] Care Team Providers Name Role Phone Lalita Perez MD Primary Care Provider Reason for Visit Reason Onset Date Comments Nurse Advice Line 07/17/2016 Encounter Details Date Type Department Care Team Description 07/17/2016 Telephone [facility] Lalita Sepulveda MD Nurse Advice Line [address] [employer] [facility] - [place] [phone] [address] [facility] [phone] [facility] [place] [address] (Wo rk) Social History [...] this encounter Miscellaneous Notes Telephone Encounter - Brii Odonnell RN - 07/17/2016 3:46 PM RN MEDICAL INPATIENT SERVICES Wondering if having flu or s/e of Topamax? Having flu like sx since Thursday. No temp.Diarrhea x1. Now having constipation. Nausea. Denies vomiting. Has low appetite. No cough. Achy muscles. Has tried Tylenol. Had toast. Now trying to advance diet to protein and veggies but having sharp pains in middle of stomach after eating . Having OJ and water. Advised to increase fluids- clear liquids, no OJ or Caffeine beverages. Increase rest. 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 Monitor over the weekend if no improvement may be seen in clinic or UC if sx worsen. Pt. Verbalized understanding. Brii Odonnell, RN, BSN, PHN MEDICAL INPATIENT SERVICES documented in this encounter Plan of Treatment Not on filedocumented as of this encounter Visit Diagnoses Not on filedocumented in this encounter Additional Health Concerns Assessment Noted Time PHQ-9 Depression Total Score: 14 04/11/2016 7:23 AM CD T documented as of this encounter Care Teams Manager Cable Relationship Specialty Start Date End Date Lalita Perez MD PCP - General Student in [facility] 10/21/1404/21 care education/training program documented as of this encounter
--- OUTSIDE RECORDS SUMMARY | 2022-04-09 07:21 | XMS_ITS | Encounter Summary ---
:1990 Author Organization [place] Address [address] [place] [address] Care Team Providers Name Role Phone Lalita Perez MD Primary Care Provider Reason for Visit Reason Onset Date Comments Refill Request 08/11/2016 TOPIRAMATE 25MG Encounter Details Date Type Department Care Team Description 08/11/2016 Refill [facility] Lalita Perez MD Refill Request Clinic [facility] (TOPIRAMATE 25MG) [address] [facility] [address] [place] [address] [place] [address] [phone] Social History Tobacco Use Types Packs/Day Years [...] this encounter Miscellaneous Notes Telephone Encounter - Kylah Gomez RN - 08/11/2016 2:17 PM CST Prescription approved per [facility] Refill Protocol. Kylah Gomez, division toll wire chief Nurse NT CHEMIST Telephone Encounter - Lalita Merritt - 08/11/2016 9:47 AM CST TOPIRAMATE 25MG Last Written Prescription Date: 07/11/2016 Last Fill Quantity: 120, # refills: 0 Last Office Visit with [facility], [facility] or [facility] prescribing provider: 06/16/2016 Future Office Visit: CREATININE Date Value Ref Range Status 04/19/2016 0.64 0.52 - 1.04 mg/dL Final NT CHEMIST documented in this encounter Plan of Treatment [...] documented as of this encounter Care Teams Cook Roast Relationship Specialty Start Date End Date Lalita Perez MD PCP - General Student in organized [facility] 10/21/1404/21 care education/training program documented as of this encounter
--- OUTSIDE RECORDS SUMMARY | 2022-04-09 07:21 | XMS_ITS | Encounter Summary ---
:1990 Author Organization [place] Address [address] [place] [address]. [place] [address] Care Team Providers Name Role Phone Lalita Perez MD Primary Care Provider Reason for Referral Mental Health Outpatient - Closed Specialty Diagnoses / Procedures Referred By Contact Refer red To Contact Diagnoses Bipolar I disorder (H) Aleksander Mercado MD [facility] [address] [place] [address] [place] [phone] Referral ID Status Reason Start Date Expiration Date Visits Requ ested Visits Authorized [id number] Closed 2015 07/15/2015 1 1 Reason for Visit Reason Comments Anxiety Encounter Details Date Type Department Care Team Description 2015 Office Visit [facility] Aleksander Mercado Bipolar I d isorder (H) (Primary Dx); Dev Higgins MD GABRIEL (generalized anxiety disorder); [address] [employer] [address] [place] [address] Contraceptive management [place] [phone] [facility] [phone] [place] [id number] Social History Tobacco Use Types Packs/Day Years [...] Reading Time Taken Comments Blood Pressure 110/74 2015 4:15 PM CDT Pulse 60 2015 4:15 PM CDT Temperature 37.1 ??C (98.7 ??F) 2015 4:15 PM CDT Respiratory Rate - - Oxygen Saturation - - Inhaled Oxygen Concentration - - Weight 85.3 kg (188 lb) 2015 4:15 PM CDT Height 165.1 cm (5' 5) 2015 4:15 PM CDT Body Mass Index 31.28 2015 4:15 PM CDT documented in this encounter Patient Instructions Patient InstructionsAleksander Mercado MD - 2015 4:44 PM CDT INSTRUCTIONS FOR TODAY: resume lexapro start lamictal--goal dose 50mg twice per day Schedule visit with Psychiatry follow-up visit in 1 month regarding regimen need annual physical with Dr Ana Mercado documented in this encounter Progress Notes Aleksander Mercado MD - 2015 4:22 PM CDT SUBJECTIVE: Rena Turner is a 25 year old female who presents to clinic today for the following health issues: Anxiety/Depression Follow-Up ?? Status since last visit: worse ?? Other associated symptoms:None ?? Complicating factors: Significant life event: No Current substance abuse: None Depression symptoms: No ?? Duration: few years ?? Description: Depression: YES- stopped medications in past few months due to no follow-up Had improved on lexapro Anxiety: YES Panic attacks: YES ?? Accompanying signs and symptoms: see PHQ-9 and GABRIEL scores. Social is biggest trigger anxiety manifests as increased heart rate, face flushing. Difficulty falling asleep. Avoidance of social situations. Depressive sx at times ?? History (similar episodes/previous evaluation): previously dx as Bipolar type 1 due to manic sx manifested as decreased need for sleep and spending money. ?? Precipitating or alleviating factors: Therapies tried and outcome: Desyrel (Trazodone), Prozac (Fluoxetine), Wellbutrin (Bupropion), Zoloft (Sertraline), depakote - States she had problems taking combinations of meds. Seemed to tolerate lamictal Requests OCP refill. Due for pap smear. Last PHQ-9 score on record= PHQ-9 SCORE ([facility] 2015 Total Score 25 ?? Amount of exercise or physical activity: None ?? Problems taking medications regularly: No ?? Medication side effects: none ?? Diet: regular (no restrictions) Patient Active Problem List Diagnosis ??? Generalized anxiety disorder No past surgical history on file. History Substance Use Topics ??? Smoking status: Current Every Day Smoker -- 1.00 packs/day for 8 years Types: Cigarettes ??? Smokeless tobacco: Never Used ??? Alcohol Use: No Family History Problem Relation Age of Onset ??? Diabetes No family hx of ??? Unknown/Adopted Mother ??? Unknown/Adopted Father Current Outpatient Prescriptions Medication Sig Dispense Refill ??? escitalopram (LEXAPRO) 20 MG tablet Take 1 tablet (20 mg) by mouth daily 30 tablet 1 ??? lamoTRIgine (LAMICTAL) 100 MG tablet Take 1/2 tablet daily for 2 weeks, then 1/2 tablet twice daily 30 tablet 1 ??? desogestrel-ethinyl estradiol (KARIVA) 0.15-0.02/0.01 MG (21/5) per tablet Take 1 tablet by mouth daily 3 Package 0 ??? LORazepam (ATIVAN) 0.5 MG tablet Take 1 tablet (0.5 mg) by mouth every 8 hours as needed for anxiety 5 tablet 0 ROS: The following systems have been completely reviewed and are negative except as noted in the HPI: CONSTITUTIONAL, CARDIOVASCULAR, PULMONARY, GASTROINTESTINAL, PSYCHIATRIC. OBJECTIVE: BP 110/74 mmHg Pulse 60 Temp(Src) 98.7 ??F (37.1 ??C) (Oral) Ht 5' 5 (1.651 m) Wt 188 lb (85.276 kg) BMI 31.28 kg/m2 Body mass index is 31.28 kg/(m^2). GENERAL: alert, well nourished, well hydrated, no distress Psych Normal affect NECK: no tenderness, no adenopathy RESP: lungs clear to auscultation - no rales, no rhonchi, no wheezes CV: regular rates and rhythm, normal S1 S2 MS: extremities- no edema ASSESSMENT/PLAN: ICD-9-CM 1. Bipolar I disorder 296.7 lamoTRIgine (LAMICTAL) 100 MG tablet MENTAL HEALTH REFERRAL PHQ-9 ORDER - select when completing PHQ-9 phq 9 as noted/ Denies suicidal ideation. Start lamictal for mood stabilization and plan for follow-up with psychiatry 2. GABRIEL (generalized anxiety disorder) 300.02 escitalopram (LEXAPRO) 20 MG tablet PHQ-9 ORDER Resume lexapro. Discussed potential that rx may increase possibility of manic episode. Risks/benefits discussed--pt requests resumption of lexapro and plan for close follow-up next few weeks with psychiatry 3. Contraceptive management V25.9 desogestrel-ethinyl estradiol (KARIVA) 0.15- 0.02/0.01 MG (28/12) per tablet OCP refill, pt will rtc for annual and pap Aleksander Mercado MD [facility] documented in this encounter Plan of Treatment Scheduled Referrals Name Type Priority Associated Diagnoses Order S [facility] MENTAL HEALTH REFERRAL Referral Routine Bipolar I disorder (H) Ordered: 2015 documented as of this encounter Visit Diagnoses Diagnosis Bipolar I disorder (H) - Primary Bipolar I disorder, most recent episode (or current) unspecified GABRIEL (generalized anxiety disorder) Generalized anxiety disorder Contraceptive management Unspecified contraceptive management documented in this encounter Care Teams Broadcast Maintenance Engineer Relationship Specialty Start Date End Date Lalita Perez MD PCP - General Student in [facility] health 10/21/1404/21 care education/training program documented as of this encounter
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
--- OUTSIDE RECORDS SUMMARY | 2022-04-09 07:21 | XMS_ITS | Encounter Summary ---
:1990 Author Organization [place] Address [facility] [place] [address] Care Team Providers Name Role Phone Lalita Perez MD Primary Care Provider Reason for Visit Reason Onset Date Comments Chest Pain 07/28/2016 Encounter Details Date Type Department Care Team Description 07/28/2016 Telephone [facility] Taylor Perez MD Chest Pain [facility] [address] [facility] [address] [facility] [address] [place] [address] [place] [id number] [phone] Social History Tobacco Use Types Packs/Day Years [...] this encounter Miscellaneous Notes Telephone Encounter - Stephanie Finley - 07/28/2016 5:03 PM CST Rena Turner is a 26 year old female who calls with chest pain. PRESENTING PROBLEM: Chest pain comes and goes NURSING ASSESSMENT: Patient complains of chest pain. Onset: 1h Pain is characterized as stabbing Severity 7 out of 10 Located left chest Radiates to left arm. Duration intermittent. Associated symptoms nausea. Exacerbated by nothing, sitting at work all day. Relieved by peppermint didn't help. Cardiac risk factors: smoker and overweight. Associated Medical History: none. Hx of migraines and anxiety Allergies: Allergies Allergen Reactions ??? Doxycycline MEDICATIONS: Taking medication(s) as prescribed? Yes Taking over the counter medication(s) ?peppermint Any medication side effects? No significant side effects Any barriers to taking medication(s) as prescribed? No Medication(s) improving/managing symptoms? Yes Medication reconciliation completed: Yes Last exam/Treatment: 06-16-16 NURSING PLAN: Nursing advice to patient UC because of pt's age and no SOB or ER if worsening sx before she can get a ride here RECOMMENDED DISPOSITION: To ED, another person to drive - or as above Will comply with recommendation: Yes If further questions/concerns or if symptoms do not improve, worsen or new symptoms develop, call your PCP or [facility] as soon as possible. Guideline used: Telephone Triage Protocols for Nurses, ? Billy, UNRULY Butcher RN ON IMPAIRED TEACHER documented in this encounter Plan of Treatment Not on filedocumented as of this encounter Visit Diagnoses Not on filedocumented in this encounter Additional Health Concerns Assessment Noted Time PHQ-9 Depression Total Score: 14 04/11/2016 7:23 AM CD T documented as of this encounter Care Teams Manager Activities Relationship Specialty Start Date End Date Lalita Perez MD PCP - General Student in organized health 10/21/1404/21 care education/training program documented as of this encounter
--- OUTSIDE RECORDS SUMMARY | 2022-04-09 07:21 | XMS_ITS | Encounter Summary ---
:1990 Author Organization [place] Address [address] [place] [address]. [place] [address] Care Team Providers Name Role Phone Lalita Perez MD Primary Care Provider Reason for Referral Mental Health Outpatient - Closed Specialty Diagnoses / Procedures Referred By Contact Refer red To Contact Diagnoses Bipolar I disorder (H) Generalized anxiety disorder Blank Damon NON [facility] [employer] DIRECTOR OF PHYSICIAN PRACTICES [address] [place] [address] [place] RICE [phone] [place]ÉNDE[place] [id number] Referral ID Status Reason Start Date Expiration Date Visits Requ ested Visits Authorized [id number] Closed 04/10/2016 04/10/2017 1 1 Reason for Visit Reason Comments Physical Recheck Medication Encounter Details Date Type Department Care Team Description 04/10/2016 Office Visit [facility] Blank Damon [facility] maintenance (Primary Dx); Dev Stanley APRN Non morbid obesity, unspecif ied obesity type; [address] [facility] DIRECTOR OF PHYSICIAN PRACTICES Encounter for surveillance of other cont raceptive; [place] Méndez [phone] [place] [address] Generalized anxiety disorder ; [phone] FERNANDO RICE Bipolar I disorder (H); [place]DE[place] [address] Tobacco abuse; [phone] Need for vaccin ation; (Work) Stomach upset Social History Tobacco Use Types Packs/Day Years [...] Sign Reading Time Taken Comments Blood Pressure 102/58 04/10/2016 2:49 PM CDT Pulse 91 04/10/2016 2:49 PM CDT Temperature 36.8 ??C (98.3 ??F) 04/10/2016 2:49 PM CDT Respiratory Rate - - Oxygen Saturation 98% 04/10/2016 2:49 PM CDT Inhaled Oxygen Concentration - - Weight 86.2 kg (190 lb 1.6 oz) 04/10/2016 2:49 PM CDT Height 162.6 cm (5' 4) 04/10/2016 2:49 PM CDT Body Mass Index 32.63 04/10/2016 2:49 PM CDT documented in this encounter Patient Instructions Patient InstructionsRhianna Reyes MA - 04/10/2016 2:48 PM CDT Preventive Health Recommendations Female Ages 26 - [...] instead of white grains and rice. ??? Talk to your provider about Calcium and Vitamin D. Lifestyle ??? Exercise [...] ?? documented in this encounter Progress Notes Blank Damon APRN DIRECTOR OF PHYSICIAN PRACTICES - 04/10/2016 2:48 PM CDT SUBJECTIVE: CC: Rena Turner is an 26 year old woman who presents for preventive health visit. Healthy Habits: ?? Do you get at least three servings of calcium containing foods daily (dairy, green leafy vegetables, etc.)? yes ?? Problems taking medications regularly No ?? Medication side effects: No ?? Have you had an eye exam in the past two years? no ?? Do you see a dentist twice per year? yes ?? Do you have sleep apnea, excessive snoring or daytime drowsiness?yes - snores Other concerns to address: Renew meds today - contraception & lexapro Has questions about celiac Wants migraine med Has some moles she wants looked at Patient wonders if she has celiac disease. No FMH. Has stomach upset if she eats even a small amountof gluten. Gets abdominal pain and diarrhea. Feels better if she avoids gluten. Has been off gluten for several month. Feels her depression/anxiety, and bipolar are out of control. No suicidal thinking. Her predominant symptom is anxiety. Currently on 20mg Lexapro and takes daily. Has been on Wellbutrin and Buspar in the past. Can???t remember but she thinks they didn???t work well. States Lamictal gave her a rash. States some meds have triggered manic episodes in the past. Hasn???t had any recent manic episodes. Notexercising much. Takes OCPs for acne and for contraception, although she is not currently sexually active. She gets migraine with aura and smokes ??-1/2 PPD. No personal Hx blood clots. Dad got a blood clot after he broke his foot. Hasn???t tried anything else for acne in the past. Gets a migraine with aura about once every 2 weeks, which is slightly more than normal but not too far out of her normal pattern. . No new neuro sx. No known triggers. Tried Imitrex in the past but it stopped working. Hasn???t been on it for years. Usually just takes ibuprofen when a migraine occurs. Drinks 1 pop per day. Hasn???t had her eyes checked in years. Sleeps well. Drinks lots of water. Has several moles that she thinks are getting larger. Has had 2 moles removed in the past which werenormal. Does not wish to stop smoking at this time. Today's PHQ-2 Score: PHQ-2 (??1999 Pfizer) 04/10/2016 02/20/2015 Q1: Little interest or pleasure in doing things 1 0 Q2: Feeling down, depressed or hopeless 2 0 PHQ-2 Score 3 0 Abuse: Current or Past(Physical, Sexual or Emotional)- No Do you feel safe in your environment - Yes Social History Substance Use Topics ??? Smoking status: Current Every Day Smoker -- 1.00 packs/day for 8 years Types: Cigarettes ??? Smokeless tobacco: Never Used ??? Alcohol Use: No The patient does not drink >3 drinks per day nor >7 drinks per week. Recent Labs Lab Test 04/09/15 0824 CHOL 210* HDL 50* LDL 113 TRIG 234* CHOLHDLRATIO 4.2 Reviewed orders with patient. Reviewed health maintenance and updated orders accordingly - Yes Mammo Decision Support: Mammogram not appropriate for this patient based on age. Last Mammo:No results found. History of abnormal Pap smear: NO - age 21-29 PAP every 3 years recommended All Histories reviewed and updated in [facility]. ROS: C: NEGATIVE for fever, chills, change in weight INTEGUMENTARY/SKIN: Several concerning moles. E: NEGATIVE for vision changes or irritation ENT: NEGATIVE for ear, mouth and throat problems R: NEGATIVE for significant cough or SOB B: NEGATIVE for masses, tenderness or discharge CV: NEGATIVE for chest pain, palpitations or peripheral edema GI: As above. Otherwise NEGATIVE for nausea, abdominal pain, heartburn, or change in bowel habits : NEGATIVE for unusual urinary or vaginal symptoms. Periods are regular. M: NEGATIVE for significant arthralgias or myalgia N: NEGATIVE for weakness, dizziness or paresthesias PSYCHIATRIC: Feeling more anxious. As above. Problem list, Medication list, Allergies, and Medical/Social/Surgical histories reviewed in [facility] andupdated as appropriate. OBJECTIVE: BP 102/58 mmHg Pulse 91 Temp(Src) 98.3 ??F (36.8 ??C) (Oral) Ht 5' 4 (1.626 m) Wt 190 lb 1.6 oz (86.229 kg) BMI 32.61 kg/m2 SpO2 98% EXAM: GENERAL: healthy, alert and no distress EYES: [...] normal PSYCH: mentation appears normal, affect normal/bright ASSESSMENT/PLAN: 1. Routine health maintenance - Lipid Profile (Chol, Trig, HDL, LDL calc); Future - Glucose; Future 2. Non morbid obesity, unspecified obesity type Discussed lifestyle measures. - Lipid Profile (Chol, Trig, HDL, LDL calc); Future - Glucose; Future 3. Encounter for surveillance of other contraceptive Given the fact that she has migraine with aura and smokes I declined to continue her control pills given her increased risk of stroke. Will refill x 1 month until she decides which method to use.I recommended the IUD, Nexplanon, Depo, and POPs in that order based on her lifestyle, risk factors,and contraceptive priorities. She also uses the pill for acne control. Discussed other methods for acne control and declines medication/derm referral at this time. Declines smoking cessation assistance. - desogestrel-ethinyl estradiol (KARIVA) 0.15-0.02/0.01 MG (28/12) per tablet; Take 1 tablet by mouthdaily Dispense: 30 tablet; Refill: 0 4. Generalized anxiety disorder Poorly controlled GABRIEL and bipolar. Hasn't had any manic episodes recently. Has tried Wellbutrin and Buspar without relief. Had a rash while on Lamictal. States she has tried meds which caused her to bemanic. At this point I don't think it is appropriate for me to further manage her symptoms. She denies any SI and doesn't display any concerning behaviors. She feels she can wait several months to see psychiatry. - escitalopram (LEXAPRO) 20 MG tablet; Take 1 tablet (20 mg) by mouth daily Dispense: 90 tablet; Refill: 2 -Recommended she f/u with [facility], where she is already established. -Increase exercise -Prioritize nutrition, relaxation, and sleep. 5. Bipolar I disorder (H) As above. No recent manic episodes or major depressive episodes. - escitalopram (LEXAPRO) 20 MG tablet; Take 1 tablet (20 mg) by mouth daily Dispense: 90 tablet; Refill: 2 6. Tobacco abuse Smokes 1/4-1 PPD. Declines counseling today. 7. Need for vaccination - TDAP (ADACEL AGES 11-64) - ADMIN 1st VACCINE 8. (R10.9) Stomach upset Comment: As above. Likely IBS or gluten sensitivity but will order celiac testing. Plan: Recommended she eat gluten for 30-90 days prior to testing. F/U with PCP for further discussion/workup. COUNSELING: Reviewed preventive health counseling, as reflected in patient instructions reports that she has been smoking Cigarettes. She has a 8 pack-year smoking history. She has never used smokeless tobacco. Tobacco Cessation Action Plan: Information offered: Patient not interested at this time Estimated body mass index is 32.61 kg/(m^2) as calculated from the following: Height as of this encounter: 5' 4 (1.626 m). Weight as of this encounter: 190 lb 1.6 oz (86.229 kg). Weight management plan: Discussed healthy diet and exercise guidelines and patient will follow up in12 months in clinic to re-evaluate. Counseling Resources: ATP IV Guidelines Pooled Cohorts Equation Calculator Breast Cancer Risk Calculator FRAX Risk Assessment ICSI Preventive Guidelines Dietary Guidelines for Americans, 2009 USDA's MyPlate ASA Prophylaxis Lung CA Screening Blank Damon APRN CNP [facility] documented in this encounter Nursing Notes Rhianna Reyes MA - 04/10/2016 2:50 PM CDT Chief Complaint Patient presents with ??? Physical ??? Recheck Medication Initial BP 102/58 mmHg Pulse 91 Temp(Src) 98.3 ??F (36.8 ??C) (Oral) Ht 5' 4 (1.626 m) Wt 190 lb 1.6 oz (86.229 kg) BMI 32.61 kg/m2 SpO2 98% Estimated body mass index is 32.61 kg/(m^2) as calculated from the following: Height as of this encounter: 5' 4 (1.626 m). Weight as of this encounter: 190 lb 1.6 oz (86.229 kg). BP completed using cuff size: regular Rhianna Reyes CMA documented in this encounter Plan of Treatment Scheduled Referrals Name Type Priority Associated Diagnoses Order S [facility] MENTAL HEALTH REFERRAL Referral Routine Bipolar I disorder (H) Ordered: 04/10/2016 Generalized anxiety disorder documented as of this encounter Visit Diagnoses Diagnosis Routine health maintenance - Primary Routine general medical examination at a health care facility Non morbid obesity, unspecified obesity type Encounter for surveillance of other cont raceptive Generalized anxiety disorder Bipolar I disorder (H) Bipolar I disorder, most recent episode (or current) unspecified Tobacco abuse Tobacco use disorder Need for vaccination Need for prophylactic vaccination and in oculation against unspecified single disease Stomach upset Dyspepsia and other specified disorders of function of stomach documented in this encounter Additional Health Concerns Assessment Noted Time PHQ-9 Depression Total Score: 14 04/11/2016 7:23 AM CD T documented as of this encounter Care Teams Cook Fry Relationship Specialty Start Date End Date Lalita Perez MD PCP - General Student in organized health 10/21/1404/21 care education/training program documented as of this encounter
--- OUTSIDE RECORDS SUMMARY | 2022-04-09 07:21 | XMS_ITS | Encounter Summary ---
:1990 Author Organization [place] Address [facility] [place] [address] Care Team Providers Name Role Phone Lalita Perez MD Primary Care Provider Reason for Visit Reason Comments Headache Contraception Encounter Details Date Type Department Care Team Description 06/16/2016 Office Visit [facility] Blank Lemos Encounter for surveillance of other contraceptive (Primary Dx); Dev Camp MD Migraine without aura and without status migrainosus, not intractable [address] [place] [address] KISHAN Méndez [id number] [facility] [phone] KISHAN MÉNDEZ [address] Social History Tobacco Use [...] Sign Reading Time Taken Comments Blood Pressure 106/76 06/16/2016 8:24 AM DRUG AND ALCOHOL COUNSELOR Pulse 86 06/16/2016 8:24 AM DRUG AND ALCOHOL COUNSELOR Temperature 37.1 ??C (98.8 ??F) 06/16/2016 8:24 AM DRUG AND ALCOHOL COUNSELOR Respiratory Rate - - Oxygen Saturation 98% 06/16/2016 8:24 AM DRUG AND ALCOHOL COUNSELOR Inhaled Oxygen Concentration - - Weight 89.8 kg (198 lb) 06/16/2016 8:24 AM DRUG AND ALCOHOL COUNSELOR Height - - Body Mass Index 33.99 04/29/2016 8:18 AM CDT documented in this encounter Patient Instructions Patient InstructionsBlank Lemos MD - 06/16/2016 8:39 AM CST Follow instructions carefully for topamax. AND ALCOHOL COUNSELOR documented in this encounter Progress Notes Blank Lemos MD - 06/16/2016 7:22 AM CST SUBJECTIVE: Rena Turner is a 26 year old female who presents to clinic today for the following health issues: control refill - going well, has been on for years. Migraine Follow-Up ?? Headaches symptoms: Stable ?? Frequency: once a week ?? Duration of headaches: days ?? Able to do normal daily activities/work with migraines: No ?? Rescue/Relief medication:ibuprofen (Advil, Motrin), Excedrin and sumatriptan (Imitrex) Effectiveness: no relief ?? Preventative medication: None ?? Neurologic complications: No new stroke-like symptoms, loss of vision or speech, numbness or weakness ?? In the past 4 weeks, how often have you gone to Urgent Care or the emergency room because of yourheadaches? 0 Patient is missing work about 1 day per week because of migraines. Tried imitrex again, but still does not work. She also tried peppermint oil, ice and NSAIDs - eventually has to sleep it off. She hadpreviously discussed topamax with provider and is interested in this. She does NOT have migraines with aura. Problem list and histories reviewed & adjusted, as indicated. Additional history: as documented Problem list, Medication list, Allergies, and Medical/Social/Surgical histories reviewed in [facility] andupdated as appropriate. ROS: Constitutional, HEENT, cardiovascular, pulmonary, gi and gu systems are negative, except as otherwise noted. OBJECTIVE: BP 106/76 mmHg Pulse 86 Temp(Src) 98.8 ??F (37.1 ??C) (Oral) Wt 198 lb (89.812 kg) SpO2 98% ? No Body mass index is 33.97 kg/(m^2). GENERAL APPEARANCE: healthy, alert and no distress RESP: lungs clear to auscultation - no rales, rhonchi or wheezes CV: regular rates and rhythm, normal S1 S2, no S3 or S4 and no murmur, click or rub NEURO: Normal strength and tone, mentation intact, speech normal, DTR symmetrically normal in lower extremities, cranial nerves 2-12 intact and normal strength throughout Diagnostic Test Results: none ASSESSMENT/PLAN: 1. Encounter for surveillance of other contraceptive Refill - migraines WITHOUT aura. - desogestrel-ethinyl estradiol (KARIVA) 0.15-0.02/0.01 MG (28/12) per tablet; Take 1 tablet by mouthdaily Dispense: 84 tablet; Refill: 3 2. Migraine without aura and without status migrainosus, not intractable Uncontrolled, will try daily controlled topamax. Try for atleast 2 months - if no improvement , return. If working well, ok to continue and follow up in 1 year. Also continue good hydration, sleep and get eyes checked. - topiramate (TOPAMAX) 25 MG tablet; Take 1 tablet (25 mg) at bedtime for 1 week, then 1 tablet twice daily for 1 week, then 1 tablet in AM and 2 in PM for 1 week, then 2 tablets twice daily. Dispense:70 tablet; Refill: 0 Patient Instructions Follow instructions carefully for topamax. Blank Lemos MD [facility] DEV AND ALCOHOL COUNSELOR documented in this encounter Nursing Notes Maria Eugenia Min LPN - 06/16/2016 8:27 AM CST Chief Complaint Patient presents with ??? Headache ??? Contraception Initial BP 106/76 mmHg Pulse 86 Temp(Src) 98.8 ??F (37.1 ??C) (Oral) Wt 198 lb (89.812 kg) SpO2 98% ? No Estimated body mass index is 33.97 kg/(m^2) as calculated from the following: Height as of 16: 5' 4 (1.626 m). Weight as of this encounter: 198 lb (89.812 kg). BP completed using cuff size: regular AND ALCOHOL COUNSELOR documented in this encounter Plan of Treatment Not on filedocumented as of this encounter Visit Diagnoses Diagnosis Encounter for surveillance of other cont raceptive - Primary Migraine without aura and without status migrainosus, not intractable Migraine without aura, without mention o f intractable migraine without mention of status migrainosus documented in this encounter Additional Health Concerns Assessment Noted Time PHQ-9 Depression Total Score: 14 04/11/2016 7:23 AM CD T documented as of this encounter Care Teams Human Services Program Specialist Relationship Specialty Start Date End Date Lalita Perez MD PCP - General Student in organized health 10/21/1404/21 care education/training program documented as of this encounter
--- OUTSIDE RECORDS SUMMARY | 2022-04-09 07:21 | XMS_ITS | Encounter Summary ---
:1990 Author Organization [place] Address [facility] [place] [address] Care Team Providers Name Role Phone Lalita Perez MD Primary Care Provider Reason for Visit Reason Comments Urgent Care Pharyngitis since last night, swollen, h janett to swallow, chills, OTC-advil,dayquil Ear Problem Right ear pain since last ni ght. URI nasal congestion since last night. Encounter Details Date Type Department Care Team Description 08/05/2016 Office Visit [facility] Kirill Ochoa Throat p ain (Primary Dx); Urgent Care Dev Vargas PA-C Acute otitis externa of right ear, unspe cified type [address] [facility] [address] [place] [address] [place] [address] Social History Tobacco Use Types Packs/Day [...] Sign Reading Time Taken Comments Blood Pressure 112/70 08/05/2016 4:43 PM BOOKING POLICE OFFICER Pulse 80 08/05/2016 4:43 PM BOOKING POLICE OFFICER Temperature 36.8 ??C (98.2 ??F) 08/05/2016 4:43 PM BOOKING POLICE OFFICER Respiratory Rate - - Oxygen Saturation 98% 08/05/2016 4:43 PM BOOKING POLICE OFFICER Inhaled Oxygen Concentration - - Weight 89.8 kg (198 lb) 08/05/2016 4:43 PM BOOKING POLICE OFFICER Height - - Body Mass Index 33.99 04/29/2016 8:18 AM CDT documented in this encounter Patient Instructions Patient InstructionsKirill Ochoa PA-C - 08/05/2016 5:12 PM BOOKING POLICE OFFICER Images from the original note were not included. External Ear Infection (Adult) External otitis (also called ???swimmer???s ear?? )??is an infection in the ear canal. It is often caused by bacteria or fungus. It can occur a few days after water gets trapped in the ear canal (from??swimming or bathing). It can also occur after cleaning too deeply in the ear canal with a cotton swab or other object. Sometimes, hair care products get into the ear canal and cause this problem. Symptoms can include pain,??fever,??itching, redness, drainage, or swelling of the ear canal. Temporary hearing loss may also occur. Home care ?? Do not try to clean the ear canal. This can push pus and bacteria deeper into the canal. ?? Use prescribed ear drops as directed. These help reduce swelling and fight the infection. If an ear wick was placed in the ear canal, apply drops right onto the end of the wick. The wick will draw the medication into the ear canal even if it is swollen closed. ?? A cotton ball may be loosely placed in the outer ear to absorb any drainage. ?? You may use acetaminophen or ibuprofen to control pain, unless another medication was prescribed.Note: If you have chronic liver or kidney disease or ever had a stomach ulcer or GI bleeding, talk to your health care provider before taking any of these medications. ?? Do not allow water to get into your ear when bathing. Also, avoid swimming until the infection has cleared. Prevention ?? Keep your ears dry. This helps lower the risk of infection. Dry your ears with a towel or hair specialist after getting wet. Also, use ear plugs when swimming. ?? Do not stick any objects in the ear to remove wax. ?? If you feel water trapped in your ear, use ear drops right away. You can get these drops over thecounter at most drugstores.?? They work by removing water from the ear canal. Follow-up care Follow up with your health care provider in one week, or as advised.?? When to seek medical advice Call your health care provider right away if any of these occur: ?? Ear pain becomes worse or doesn???t improve after 3 days of treatment ?? Redness or swelling of the outer ear occurs or gets worse ?? Headache ?? Painful or stiff neck ?? Drowsiness or confusion ?? Fever of 100.4??F (38??C) or higher, or as directed by your health care provider ?? Seizure ?? [id number] [employer]. [address] [place] [address]. All rights reserved. This information is not intended as a substitute for professional medical care. Always follow your healthcare professional's instructions. Self-Care for Sore Throats Sore throats occur for many reasons, such as colds, allergies, and infections caused by viruses or bacteria. In any case, your throat becomes red and sore. Your goal for self-care is to reduce your discomfort while giving your throat a chance to heal. Moisten and Soothe Your Throat ?? Try a sip of water first thing after waking up. ?? Keep your throat moist by drinking??6 or more glasses of clear liquids every day. ?? Run a cool-air humidifier in your room overnight. ?? Avoid cigarette smoke.? Suck on throat lozenges, cough drops, hard candy, ice chips, or frozen fruit- juice bars. Use the sugar-free versions if your diet or medical condition require them. Gargle to Ease Irritation Gargling every hour or??2 can ease irritation. Try gargling with??1 of these solutions: ?? 1/4??teaspoon of salt in??1/2 cup of warm water ?? An xpyj-exi-jrxoztw anesthetic gargle Use Medication for More Relief Badf-kho-tzhtlmr medication can reduce sore throat symptoms. Ask your pharmacist if you have questions about which medication to use: ?? Ease pain with anesthetic sprays. Aspirin or an aspirin substitute also helps. Remember, never give aspirin to anyone 18 or younger, or if you are already??taking blood thinners.? For sore throats caused by allergies, try antihistamines to block the allergic reaction. ?? Remember: unless a sore throat is caused by a bacterial infection, antibiotics won???t help you. Prevent Future Sore Throats ?? Stop smoking or reduce contact with secondhand smoke. Smoke irritates the tender throat lining. ?? Limit contact with pets and with allergy-causing substances, such as pollen and mold. ?? When you???re around someone with a sore throat or cold, wash your hands frequently to keep viruses or bacteria from spreading. ?? Don???t strain your vocal cords. Call Your Health Care Provider Contact your doctor if you have: ?? A temperature over 101??F (38.3??C) ?? White spots on the throat ?? Great difficulty swallowing ?? Trouble breathing ?? A skin rash ?? Recent exposure to someone else with strep bacteria ?? Severe hoarseness and swollen glands in the neck or jaw ?? [id number] [employer]. [address] [place] [address]. All rights reserved. This information is not intended as a substitute for professional medical care. Always follow your healthcare professional's instructions. ING POLICE OFFICER documented in this encounter Progress Notes Kirill Ochoa PA-C - 08/05/2016 4:58 PM CST SUBJECTIVE: Rena Turner is a 26 year old female with a chief complaint of sore throat. Onset of symptoms was 1 day(s) ago. Course of illness: sudden onset and worsening. Severity moderate Current and Associated symptoms: fever, nasal congestion and rhinorrhea Treatment measures tried include Ibuprofen dayquil. 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 Generalized anxiety disorder ??? Depression with anxiety ??? Bipolar disorder (H) Current Outpatient Prescriptions Medication Sig Dispense Refill ??? topiramate (TOPAMAX) 25 MG tablet Take 2 tablets (50 mg) by mouth 2 times daily 120 tablet 0 ??? desogestrel-ethinyl estradiol (KARIVA) 0.15-0.02/0.01 MG (/) per tablet Take 1 tablet by mouth daily 84 tablet 3 ??? SUMAtriptan (IMITREX) 25 MG tablet Take 1-2 tablets (25-50 mg) by mouth at onset of headache formigraine May repeat in 2 hours. Max 8 tablets/24 hours. 18 tablet 1 ??? escitalopram (LEXAPRO) 20 MG tablet Take 1 tablet (20 mg) by mouth daily 90 tablet 2 Social History Substance Use Topics ??? Smoking status: Current Every Day Smoker -- 0.25 packs/day for 8 years Types: Cigarettes ??? Smokeless tobacco: Never Used ??? Alcohol Use: No ROS: Review of systems negative except as stated above. OBJECTIVE: BP 112/70 mmHg Pulse 80 Temp(Src) 98.2 ??F (36.8 ??C) (Tympanic) Wt 198 lb (89.812 kg) SpO2 98% GENERAL APPEARANCE: healthy, alert and no distress EYES: EOMI, PERRL, conjunctiva clear HENT: R canal erythematous. ear canals and TM's normal. Nose normal. Pharynx erythematous with some exudate noted. NECK: supple, non-tender to palpation, no adenopathy noted RESP: lungs clear to auscultation - no rales, rhonchi or wheezes CV: regular rates and rhythm, normal S1 S2, no murmur noted Results for orders placed or performed in visit on 08/05/16 Strep, Rapid Screen Result Value Ref Range Specimen Description Throat Rapid Strep A Screen NEGATIVE: No Group A streptococcal antigen detected by immunoassay, await culture report. Micro Report Status FINAL 08/05/2016 Beta strep group A culture Result Value Ref Range Specimen Description Throat Culture Micro No Beta Streptococcus isolated Micro Report Status FINAL 08/07/2016 ASSESSMENT: (R07.0) Throat pain (primary encounter diagnosis) Plan: Strep, Rapid Screen, Beta strep group A culture Await culture (H60.501) Acute otitis externa of right ear, unspecified type Plan: ciprofloxacin-dexamethasone (CIPRODEX) otic suspension Symptomatic treat with gargles, lozenges, and OTC analgesic as needed. Follow-up with primary clinicif not improving. Advisement given that patient will be contagious for the next 24-48 hours after antibiotics initiated ING POLICE OFFICER documented in this encounter Nursing Notes Evelyn Ely CMA - 08/05/2016 4:46 PM CST Chief Complaint Patient presents with ??? Urgent Care ??? Pharyngitis since last night, swollen, hard to swallow, chills, OTC-advil,dayquil ??? Ear Problem Right ear pain since last night. ??? URI nasal congestion since last night. Initial BP 112/70 mmHg Pulse 80 Temp(Src) 98.2 ??F (36.8 ??C) (Tympanic) Wt 198 lb (89.812 kg) SpO2 98% Estimated body mass index is 33.97 kg/(m^2) as calculated from the following: Height as of 16: 5' 4 (1.626 m). Weight as of this encounter: 198 lb (89.812 kg). BP completed using cuff size: large ISIDRO Haro ING POLICE OFFICER documented in this encounter Plan of Treatment Not on filedocumented as of this encounter Procedures Procedure Name Priority Date/Time Associated Diagnosis Comme nts RAPID STREP SCREEN Routine 08/05/2016 5:04 PM Throat pain Res ults for this THROAT SWAB BOOKING POLICE OFFICER procedure are i n the results section. BETA HEMOLYTIC Routine 08/05/2016 5:04 PM Throat pain Results for this STREP GROUP A BOOKING POLICE OFFICER procedure are in CULTURE the results section. documented in this encounter Results Beta strep group A culture (08/05/2016 5:04 PM BOOKING POLICE OFFICER) Component Value Ref Test Analysis Performed At [facility] gist Range Method Time Signature Specimen Throat [facility] [place] Culture Micro No Beta JENNINGS Streptococcus CLINICS isolated DEV Micro Report FINAL 08/07/2016 [facility] Specimen Anatomical Collection Method Collection Time Receive d Time (Source) Location / / Volume Laterality 08/05/2016 5:04 PM 6 5:09 BOOKING POLICE OFFICER PM BOOKING POLICE OFFICER Kirill Ochoa PA-C LAB - MICRO GENERAL [facility] Performing Organization Address City/[facility] Phon e Number [facility] [address] [place] [phone] Strep, Rapid Screen (08/05/2016 5:04 PM BOOKING POLICE OFFICER) Component Value Ref Test Analysis Performed At [facility] gist Range Method Time Signature Specimen Throat [facility] [place] Rapid Strep A NEGATIVE: No Group A strepto coccal antigen detected by immunoassay, await JENNINGS Screen culture report. CLINICS DEV Micro Report FINAL 08/05/2016 [facility] [place] Specimen Anatomical Collection Method Collection Time Receive d Time (Source) Location / / Volume Laterality Specimen from 08/05/2016 5:04 PM 08/05/20 16 5:09 throat BOOKING POLICE OFFICER PM BOOKING POLICE OFFICER (specimen) Kirill Ochoa PA-C LAB - MICRO GENERAL [facility] [place] Performing Organization Address City/[facility] Phon e Number [address] [address] [phone] documented in this encounter Visit Diagnoses Diagnosis Throat pain - Primary Acute otitis externa of right ear, unspe cified type documented in this encounter Additional Health Concerns Assessment Noted Time PHQ-9 Depression Total Score: 14 04/11/2016 7:23 AM CD T documented as of this encounter Care Teams Manufacturing Machine Operator Relationship Specialty Start Date End Date Lalita Perez MD PCP - General Student in [facility] 10/21/1404/21 care education/training program documented as of this encounter
--- OUTSIDE RECORDS SUMMARY | 2022-04-09 07:21 | XMS_ITS | Encounter Summary ---
:1990 Author Organization [place] Address [facility] [place] [address] Care Team Providers Name Role Phone Lalita Perez MD Primary Care Provider Encounter Details Date Type Department Care Team Description 04/09/2015 Orders Only [facility] Eag an Routine general medical [address] [facility] [place] [address] care facility [phone] Social History Tobacco Use Types Packs/Day Years [...] Name Priority Date/Time Associated Diagnosis Comme nts LIPID REFLEX TO Routine 04/09/2015 8:24 AM Routine general Res ults for this DIRECT LDL PANEL CDT medical examination proc edure are in at a health care the results facility section. GLUCOSE Routine 04/09/2015 8:24 AM Routine general Result s for this CDT medical examination procedur e are in at a health care the results facility section. documented in this encounter Results (ABNORMAL) LIPID REFLEX TO DIRECT LDL PANEL (04/09/2015 8:24 AM CDT) athologist Signature Cholesterol 210 (H) <200 mg/dL [facility] Comment: LDL Cholesterol is the primary guide to therapy. The NCEP recommends further evaluation of: patients with cholesterol greater than 200 mg/dL if additional risk facto rs are present, cholesterol greater than 240 mg/dL, triglycerides greater than 1 50 mg/dL, or HDL less than 40 mg/dL. Triglycerides 234 (H) 0 - 150 mg/dL [facility] HDL Cholesterol 50 (L) >50 mg/dL [facility] LDL Cholesterol Calculated 113 0 - 129 mg/dL [facility] Comment: LDL Cholesterol is the primary guide to therapy: LDL-cholesterol goal in high risk patients is <100 mg/dL and in very high risk patients is <70 mg/dL. VLDL-Cholesterol 47 (H) 0 - 30 mg/dL [facility] Federico P[facility] Cholesterol/HDL Ratio 4.2 0.0 - 5.0 [facility] Specimen Anatomical Collection Method Collection Time Receive d Time (Source) Location / / Volume Laterality Blood specimen 04/09/2015 8:24 AM 015 8:29 (specimen) CDT AM CDT Lalita Perez MD LAB - BLOOD ORDERABLES Performing Organization Address City/State/ZIP Code Phon e Number [facility] [address] [place] [address] Glucose (04/09/2015 8:24 AM CDT) athologist Signature Glucose 87 70 - 99 [facility] mg/dL [facility] Specimen Anatomical Collection Method Collection Time Receive d Time (Source) Location / / Volume Laterality Blood specimen 04/09/2015 8:24 AM 015 8:29 (specimen) CDT AM CDT Lalita Perez MD LAB - BLOOD ORDERABLES Performing Organization Address City/State/[facility] Code Phon e Number [facility] [address] [place] [address] documented in this encounter Visit Diagnoses Diagnosis Routine general medical examination at a health care facility documented in this encounter Care Teams Field Secretary Relationship Specialty Start Date End Date Lalita Perez MD PCP - General Student in [facility] health 10/21/1404/21 care education/training program documented as of this encounter
--- OUTSIDE RECORDS SUMMARY | 2022-04-09 07:21 | XMS_ITS | Encounter Summary ---
:1990 Author Organization [place] Address [address] [place] [address] Care Team Providers Name Role Phone Lalita Perez MD Primary Care Provider Reason for Visit Reason Comments Anxiety Recheck Medication Encounter Details Date Type Department Care Team Description 11/28/2014 Office Visit [facility] Lalita Perez MD Phobia, flying (Primary Dx); [facility] GABRIEL (generalized anxiety disorder) [address] [address] [facility] [phone] [place] [address] Social History Tobacco Use Types [...] Sign Reading Time Taken Comments Blood Pressure 118/70 11/28/2014 3:50 PM CDT Pulse 72 11/28/2014 3:50 PM CDT Temperature 36.9 ??C (98.4 ??F) 11/28/2014 3:50 PM CDT Respiratory Rate - - Oxygen Saturation - - Inhaled Oxygen Concentration - - Weight 85.3 kg (188 lb) 11/28/2014 3:50 PM CDT Height 165.1 cm (5' 5) 11/28/2014 3:50 PM CDT Body Mass Index 31.28 11/28/2014 3:50 PM CDT documented in this encounter Progress Notes Lalita Perez - 11/28/2014 3:52 PM CDT SUBJECTIVE: Rena Turner is a 24 year old female who presents to clinic today for the following health issues: Anxiety Follow-Up ?? Status since last visit: Improved , feels some improvement ?? Other associated symptoms:None ?? Complicating factors: Significant life event: No Current substance abuse: None Depression symptoms: No No flowsheet data found. Improvement in relaxing, being restless, and being afraid. Appetite initially decreased with meds but this was ok with her, now ok. Sleeping has been rougher the last couple weeks because of increased stress but generally stable. Hasn't been in with counseling yet - has received letter and information to fill out but hasnt sent it back in yet. Still interested in doing this. GAD7 - 18, improved from previous ?? Amount of exercise or physical activity: 2-3 days/week for an average of 15- 30 minutes ?? Problems taking medications regularly: No ?? Medication side effects: see above ?? Diet: regular (no restrictions) Problem list and histories reviewed & adjusted, as indicated. Additional history: as documented There is no problem list on file for this patient. Past Medical History Diagnosis Date ??? Generalized anxiety disorder ??? Depression with anxiety ??? Bipolar disorder History reviewed. No pertinent past surgical history. History Substance Use Topics ??? Smoking status: Current Every Day Smoker -- 1.00 packs/day for 8 years Types: Cigarettes ??? Smokeless tobacco: Never Used ??? Alcohol Use: No Family History Problem Relation Age of Onset ??? Diabetes No family hx of ??? Unknown/Adopted Mother ??? Unknown/Adopted Father ROS: 6 point ROS obtained, negative except as in HPI OBJECTIVE: BP 118/70 Pulse 72 Temp(Src) 98.4 ??F (36.9 ??C) (Tympanic) Ht 5' 5 (1.651 m) Wt 188 lb (85.276 kg) BMI 31.28 kg/m2 Body mass index is 31.28 kg/(m^2). GENERAL: healthy, alert and no distress RESP: lungs clear to auscultation - no rales, rhonchi or wheezes CV: regular rate and rhythm, normal S1 S2, no S3 or S4, no murmur, click or rub, no peripheral edemaand peripheral pulses strong NEURO:Moves all extremities spontaeously, mentation intact and speech normal PSYCH: mentation appears normal, affect slightly flat, depressed mood, not anxious appearing. Well put together. Sentences normal without rushed speech. Diagnostic Test Results: none ASSESSMENT/PLAN: ICD-9-CM 1. 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 GABRIEL (generalized anxiety disorder) 300.02 - Discussed that we are at the max dose of escitalopram that we can use. She wishes to give it a fewmore weeks to see if things continue to improve, but we discussed switching to SNRI or other class of medication in 4 weeks if not improving further - Discussed importance of getting into counseling which she says she will make sure to set up very soon - Patient asking for something for flying; has upcoming flight and has increased anxiety with flying. Gave limited one time rx for ativan 0.5 mg - 5 tablets only. Discussed this is not for daily anxiety. F/u in 4 weeks for recheck. Lalita Perez MD Med/Peds PGY-2 [facility] STAFF NOTE: Patient seen with resident physician today. I was physically present during alcantara portions of the visit and participated in the evaluation and management of the patient today. Aleksander Mercado MD documented in this encounter Nursing Notes Emily Wiley - 11/28/2014 3:52 PM CDT Chief Complaint Patient presents with ??? Anxiety ??? Recheck Medication Initial BP 118/70 Pulse 72 Temp(Src) 98.4 ??F (36.9 ??C) (Tympanic) Ht 5' 5 (1.651 m) Wt 188 lb (85.276 kg) BMI 31.28 kg/m2 Estimated body mass index is 31.28 kg/(m^2) as calculated from thefollowing: Height as of this encounter: 5' 5 (1.651 m). Weight as of this encounter: 188 lb (85.276 kg). BP completed using cuff size: regular documented in this encounter Plan of Treatment Not on filedocumented as of this encounter Visit Diagnoses Diagnosis Phobia, flying - Primary Other isolated or specific phobias GABRIEL (generalized anxiety disorder) Generalized anxiety disorder documented in this encounter Care Teams Senior Center Director Relationship Specialty Start Date End Date Lalita Perez MD PCP - General Student in [facility] health 10/21/1404/21 care education/training program documented as of this encounter
--- OUTSIDE RECORDS SUMMARY | 2022-04-09 07:21 | XMS_ITS | Encounter Summary ---
:1990 Author Organization [facility] Address [address] [place] [address] Care Team Providers Name Role Phone Lalita Perez MD Primary Care Provider Reason for Visit Reason Onset Date Comments Medication Request 05/08/2016 Imitrex Encounter Details Date Type Department Care Team Description 05/08/2016 Telephone [facility] Blank Mary Medication Request 1440 [facility] G[facility]NY [facility] CARDIOTHORACIC ICU RN (Imitrex) [place]éndez [id number] 3[address] [facility] [phone] [facility] [place] [id number] (Wo rk) Social History [...] this encounter Miscellaneous Notes Telephone Encounter - Kajal Jeong - 05/08/2016 11:18 AM CDT Reason for Call: Other prescription Detailed comments: Patient was seen 04/10 by Blank Damon and it was decided at that time that the patient could start on Imitrex. Please send a new script to the pharmacy as appropriate. The [facility] [email or web address] [facility] [address] in [place] Phone Number Patient can be reached at: Home number on file [phone] (home) Best Time: anytime Can we leave a detailed message on this number? YES Kajal Jeong, Behavioral Sciences Instructor [facility] documented in this encounter Plan of Treatment Not on filedocumented as of this encounter Visit Diagnoses Diagnosis Other migraine without status migrainosu s, not intractable - Primary documented in this encounter Additional Health Concerns Assessment Noted Time PHQ-9 Depression Total Score: 14 04/11/2016 7:23 AM CD T documented as of this encounter Care Teams Dramatic Agent Relationship Specialty Start Date End Date Lalita Perez MD PCP - General Student in [facility] health 10/21/1404/21 care education/training program documented as of this encounter
--- OUTSIDE RECORDS SUMMARY | 2022-04-09 07:21 | XMS_ITS | Encounter Summary ---
:1990 Author Organization [place] Address [address] [place] [address] Care Team Providers Name Role Phone Lalita Perez MD Primary Care Provider Blank Lemos MD Primary Care Provider Blank Lemos MD Unavailable Blank Lemos MD Unavailable Hardeep Cárdenas Unavailable Unavailable Kathleen Lacy CNM Unavailable Anabell Shannon Unavailable Unavailable Rand Kam APRN CNM Unavailable Sharita Frias MD Unavailable Kathleen Lacy CNM Unavailable Kathleen Lacy CNM Unavailable Sharita Frias MD Unavailable Reason for Visit Reason Onset Date Comments Refill Request 03/03/2016 AZURETTE TABLETS 28' S Encounter Details Date Type Department Care Team Description 03/03/2016 Telephone [facility] Lalita Sepulveda MD Refill Request [address] [facility] - [place] (AZURETTE TABLETS 28'S) [place] [phone] 1978 [facility] [phone] [facility] [place] [address] (Wo rk) Social History [...] this encounter Miscellaneous Notes Telephone Encounter - Melodie Curiel - 03/05/2016 11:20 AM CDT Left message to schedule appt. Telephone Encounter - Rosalie Alan RN - 03/05/2016 9:01 AM CDT Prescription approved per [facility] Refill Protocol. Patient due for physical after 04/05/16. Routing to Station Nurse Pool, please call to assist patient in scheduling a physical after 04/05/16. Telephone Encounter - Lalita Merritt - 03/03/2016 8:07 AM CDT AZURETTE TABLETS 28'S Last Written Prescription Date: 04/05/2015 Last Fill Quantity: 90, # refills: 3 Last Office Visit with [facility], P or [facility] prescribing provider: 10/02/2015 documented in this encounter Plan of Treatment Not on filedocumented as of this encounter Visit Diagnoses Diagnosis Contraceptive management - Primary Unspecified contraceptive management documented in this encounter Care Teams Vine Fruit Farming Supervisor Relationship Specialty Start Date End Date Lalita Perez MD PCP - General Student in organized 10/21/14 04/21/18 health care education/training program Blank Lemos, PCP - General Internal Medicine 04/22/[address] [place] [address] [place], [place] [id number] Blank Lemos, PCP - Assigned PCP 04/25/[address] [place] [address] K[place]AN RENO [phone] Blank Lemos, Assigned PCP 04/25/[address] [place] [address] K[place] RENO [phone] Hardeep Cárdenas Personal Advocate & 06/17/1901/30 Liaison (PAL) Kathleen Lacy CNM Assigned OBGYN Provider 06/01/20 11/23/21 [address] [place] [address] Anabell Shannon Personal Advocate & 10/25/20 Liaison (PAL) Rand Kam, Assigned OBGYN Provider 11/24/21 12/28/21 LICENSED RETAIL SUPERVISOR CNM [address] [place], [place] [phone] Sharita Frias Assigned OBGYN Provider 01/04/2205/31 [place] [address] [place], [place] [phone] Lacy, Kathleen A, CNM Assigned OBGYN Provider 12/29/21 01/03/[address] [place], [place] [address] Kathleen Lacy CNM Assigned OBGYN Provider 01/18/22 01/24/22 [address] [place], [place] [address] Sharita Frias Assigned OBGYN Provider 01/25/22 [place] [address] [address] [place], [place] [phone] documented as of this encounter
--- OUTSIDE RECORDS SUMMARY | 2022-04-09 07:21 | XMS_ITS | Encounter Summary ---
:1990 Author Organization [place] Address [address] [place] [address] Care Team Providers Name Role Phone Lalita Perez MD Primary Care Provider Reason for Visit Reason Onset Date Comments Medication Request 08/14/2016 ear pain Encounter Details Date Type Department Care Team Description 08/14/2016 Telephone [facility] Lalita Perez MD Medication Request (ear Clinic Dev CLINICS - DEV pain) [address] [place] [address] [address] [place] [address] [place] [address] [phone] Social History Tobacco Use Types Packs/Day Years [...] Encounter - Kristie Kapadia RN - 08/19/2016 5:03 PM CST Patient was seen on 08/15/15 Kristie Kapadia RN Message handled by Nurse Triage. ICULTURE TEACHER Telephone Encounter - Kirill Ochoa PA-C - 08/15/2016 3:07 PM FLORICULTURE TEACHER Please have patient follow up with PCP if symptoms are persistent. ICULTURE TEACHER Telephone Encounter - Kristie Kapadia RN - 08/14/2016 2:24 PM CST Patient calls. Asking to fill Topamax. Advised that it was filled on 08/11 for another 6 months. Call to the pharmacy as they have not received the refill. Provided prescription over the phone. They willcall patient when ready. topiramate (TOPAMAX) 25 MG tablet 120 tablet 5 08/11/2016 No ?? Sig: Take 2 tablets (50 mg) by mouth 2 times daily ?? Class: Fax Patient was seen on 08/05/16 with ADELAIDA Cruz. Patient is also reporting no improvement with ear pain with kvyncqex-uqmyahreo-xjptmbelzgostg (CORTISPORIN) 3.5-53695-4 otic suspension drops. States that the pain is still the same. She has a low grade 99.5 fever every day. Wondering if she could try something different. She is still congested and coughing as before: no SOB, or wheezing, but the ear pain is bothering her. Has been using the drops as prescribed. Please advise, pharmacy loaded. Kristie Kapadia RN Message handled by Nurse Triage. ICULTURE TEACHER documented in this encounter Plan of Treatment Not on filedocumented as of this encounter Visit Diagnoses Not on filedocumented in this encounter Additional Health Concerns Assessment Noted Time PHQ-9 Depression Total Score: 14 04/11/2016 7:23 AM CD T documented as of this encounter Care Teams Supervisor Phosphoric Acid Relationship Specialty Start Date End Date Lalita Perez MD PCP - General Student in [facility] health 10/21/1404/21 care education/training program documented as of this encounter
--- OUTSIDE RECORDS SUMMARY | 2022-04-09 07:21 | XMS_ITS | Encounter Summary ---
:1990 Author Organization [facility] Address [address] [place] [address] Care Team Providers Name Role Phone Lalita Perez MD Primary Care Provider Reason for Visit Reason Onset Date Comments Medication Request 08/05/2016 alternative Encounter Details Date Type Department Care Team Description 08/05/2016 Telephone [facility] Lalita Perez MD Medication Request Clinic [facility] (alternative) [address] [facility] [address] [place] [address] [place] [phone] Social History Tobacco Use Types Packs/Day Years [...] this encounter Miscellaneous Notes Telephone Encounter - Kelly Hernandez RN - 08/06/2016 7:56 AM CST Message left on machine that an alternative had been sent to the pharmacy. Kelly Hernandez RN THERAPY ASST Telephone Encounter - Emmett Gallegos MD - 08/05/2016 7:24 PM CST alternative sent THERAPY ASST Telephone Encounter - Kristie Kapadia RN - 08/05/2016 6:[address] Gallegos, please review-ok to wait for UC, or could an alternative medicine be sent earlier? Kristie Kapadia RN Message handled by Nurse Triage. THERAPY ASST Telephone Encounter - Kristie Kapadia RN - 08/05/2016 6:24 PM CST Patient calls. Was prescribed ciprofloxacin-dexamethasone (CIPRODEX) otic suspension for an ear infection. The medication is 200 dollars, asking for an alternative medication. Please send. Kristie Kapadia RN Message handled by Nurse Triage. THERAPY ASST documented in this encounter Plan of Treatment Not on filedocumented as of this encounter Visit Diagnoses Diagnosis Acute swimmer's ear of right side - Prim ronak documented in this encounter Additional Health Concerns Assessment Noted Time PHQ-9 Depression Total Score: 14 04/11/2016 7:23 AM CD T documented as of this encounter Care Teams Plaque Maker Relationship Specialty Start Date End Date Lalita Perez MD PCP - General Student in [employer] 10/21/1404/21 care education/training program documented as of this encounter
--- OUTSIDE RECORDS SUMMARY | 2022-04-09 07:21 | XMS_ITS | Encounter Summary ---
:1990 Author Organization [facility] Address [address] [place] [address] Care Team Providers Name Role Phone Lalita Perez MD Primary Care Provider Reason for Visit Reason Onset Date Comments Panel Management 01/11/2015 Encounter Details Date Type Department Care Team Description 01/11/2015 Telephone [facility] Lalita Toledo MD Panel Management 1440 [facility] - [place] [address] [facility]9 [facility] [phone] [facility] K[place]AN [place] [phone] (Wo rk) Social History Tobacco Use Types [...] this encounter Miscellaneous Notes Telephone Encounter - Blank Daley CMA - 01/18/2015 4:05 PM CDT Patient had an appt with 01/16/15. She said she would schedule an appt. Soon for physical. NIA Corbin Telephone Encounter - Blank Daley CMA - 01/11/2015 2:50 PM CDT Panel Management Review Date of last visit with a [facility] provider: on 11/28/14. Date of next visit with a [facility] provider: None. Problem List Patient Active Problem List Diagnosis ??? Generalized anxiety disorder Health Maintenance List Health Maintenance Topic Date Due ??? TETANUS IMMUNIZATION (SYSTEM ASSIGNED) 01/15/2006 ??? PAP SCREENING Q3 YR (SYSTEM ASSIGNED) 01/15/2009 ??? INFLUENZA VACCINE (SYSTEM ASSIGNED) 04/10/2015 For diabetic patients with hyperlipidemia, only choose diabetes. Patient has the following on her problem list: Composite cancer screening Chart review shows that this patient is due/due soon for the following Pap Smear No results found for this basename: pap No past surgical history on file. Is hysterectomy listed in surgical history? No Is mastectomy listed in surgical history? No Tobacco History History Smoking status ??? Current Every Day Smoker -- 1.00 packs/day for 8 years ??? Types: Cigarettes Smokeless tobacco ??? Never Used Summary: Patient is due/failing the following: PAP Action needed: Patient needs office visit for pap. Type of outreach: Phone, left message for patient to call back. Questions for provider review: None Please indicate office visit, lab, MTM, or nurse appt if needed. Indicate fasting or not fasting. NIA Corbin documented in this encounter Plan of Treatment Not on filedocumented as of this encounter Visit Diagnoses Not on filedocumented in this encounter Care Teams Range Ecologist Relationship Specialty Start Date End Date Lalita Perez MD PCP - General Student in [facility] health 10/21/1404/21 care education/training program documented as of this encounter
--- OUTSIDE RECORDS SUMMARY | 2022-04-09 07:21 | XMS_ITS | Encounter Summary ---
:1990 Author Organization [place] Address [address] [place] [address] Care Team Providers Name Role Phone Lalita Perez MD Primary Care Provider Reason for Visit Reason Onset Date Comments Refill Request 07/10/2016 Encounter Details Date Type Department Care Team Description 07/10/2016 Refill [facility] Lalita Toledo MD Refill Request 1440 [facility] - [place] [phone] 9966 [facility] [phone] [facility] [place] [phone] (Wo rk) Social [...] Telephone Encounter - Kristie Kapadia RN - 07/10/2016 12:32 PM SAP BPC ARCHITECT topamax Last Written Prescription Date: 06/16/16 Last Fill Quantity: 70, # refills: 0 Last Office Visit with [facility] or [facility] prescribing provider: 06/16/16 BP Readings from Last 3 Encounters: 06/16/16 106/76 04/29/16 108/70 04/19/16 118/84 Per 06/16 office visit notes: Migraine without aura and without status migrainosus, not intractable Uncontrolled, will try daily controlled topamax.?? Try for atleast 2 months - if no improvement , return.?? If working well, ok to continue and follow up in 1 year.?? Also continue good hydration, sleep and get eyes checked. - topiramate (TOPAMAX) 25 MG tablet; Take 1 tablet (25 mg) at bedtime for 1 week, then 1 tablet twice daily for 1 week, then 1 tablet in AM and 2 in PM for 1 week, then 2 tablets twice daily.?? Dispense: 70 tablet; Refill: 0 Prescription approved per [facility] Refill Protocol. Kristie Kapadia RN Message handled by Nurse Triage. BPC ARCHITECT documented in this encounter Plan of Treatment [...] documented as of this encounter Care Teams Senior Sql Server Database Developer Relationship Specialty Start Date End Date Lalita Perez MD PCP - General Student in [employer] health 10/21/1404/21 care education/training program documented as of this encounter
--- OUTSIDE RECORDS SUMMARY | 2022-04-09 07:21 | XMS_ITS | Encounter Summary ---
:1990 Author Organization [facility] Address [address] [place] [address] Care Team Providers Name Role Phone Lalita Perez MD Primary Care Provider Reason for Visit Reason Comments Anxiety Encounter Details Date Type Department Care Team Description 02/20/2015 Office Visit [facility] Aleksander Mercado I d emilyrder (H) (Primary Dx); Dev Higgins MD GABRIEL (generalized anxiety disorder); [address] [address] [place] [address] KISHAN Méndez [phone] [facility] [address] [phone] [id number] Social History Tobacco Use Types Packs/Day [...] Reading Time Taken Comments Blood Pressure 102/70 02/20/2015 10:41 AM CDT Pulse 60 02/20/2015 10:41 AM CDT Temperature 36.9 ??C (98.5 ??F) 02/20/2015 10:41 AM CDT Respiratory Rate - - Oxygen Saturation - - Inhaled Oxygen Concentration - - Weight 83.9 kg (185 lb) 02/20/2015 10:41 AM CDT Height - - Body Mass Index 30.79 2015 4:15 PM CDT documented in this encounter Patient Instructions Patient InstructionsGaAleksander sandoval MD - 02/20/2015 11:16 AM CDT Images from the original note were not included. INSTRUCTIONS FOR TODAY: continue lamictal and lexapro seroquel as needed for sleep follow-up visit [address] Rogelio Castro What is insomnia? Having insomnia means you often have trouble falling or staying asleep or going back to sleep if youawaken. Insomnia can be either a short-term or a long-term problem. Insomnia affects 1 in 3 adults every year in the [place]. Causes of insomnia include: stress such as a big deadline at work, a financial problem, or a sick family member being overweight depression, anxiety, or other mental health problems medical problems such as sleep apnea or hyperthyroidism restless leg syndrome (muscles in your lower legs twitch or tense up during sleep). use of caffeine or other stimulants use of alcohol, other depressants, or sedatives, which can relax you but lead to shallow sleep that starts and stops, especially if you use these drugs for a long time medicines, such as those used to treat asthma pain and other discomfort caused by an illness such as arthritis shortness of breath caused by chronic obstructive pulmonary disease (COPD) or heart failure poor sleep habits, including going to bed at different times or in a noisy environment, or eating orworking in bed before sleeping changes in sleep patterns because of different work hours or travel (jet lag) Insomnia may be temporary (called situational insomnia) or ongoing (chronic insomnia). Situational insomnia occurs with a stressful event. It is often caused by noise, pain, worry, or family, work, financial, or school problems. It lasts 3 weeks or less. This kind of insomnia generally goes away when the stressful event is over or resolved. Chronic insomnia can be caused by irregular sleep-wake patterns resulting from shift work, drug dependency (including long-term use of sleeping pills or alcohol), stress, illness, or mental health problems such as anxiety or depression. It lasts longer than 3 weeks and requires treatment of the underly ing problem. What are the symptoms? Symptoms include: trouble falling asleep (taking longer than 45 minutes) awakening often in the night waking up early in the morning and being unable to go back to sleep not feeling rested in the morning or feeling tired during the day restlessness or anxiety as bedtime approaches How is it diagnosed? Your healthcare provider will ask you about: your sleep patterns use of caffeine, alcohol, medicine, and other drugs eating and exercise habits your mental and physical condition your medical and mental health history, and your family's history your job and travel patterns Your healthcare provider may also ask your spouse, bed partner, or other family members about your sleep habits. After talking with you, your healthcare provider may give you a physical exam. A blood sample may be taken for lab tests. Your healthcare provider may ask you to take notes each morning about: how long you were in bed how much time you think you actually slept how many times and what times you woke up what time you got up in the morning your thoughts about the quality of your sleep recent stresses Your healthcare provider may suggest that you sleep overnight in a sleep center. At the sleep centeryou may have a continuous, all-night recording of your breathing, eye movements, muscle tone, blood oxygen levels, heart rate and rhythm, and brain waves. How is it treated? If a medical problem is causing your insomnia, your provider will treat you for it. If drug or alcohol abuse is the cause of your insomnia, you will need to stop using these substances. If you have chronic insomnia, it must be treated with management of the underlying problem. In some cases of temporary insomnia, your healthcare provider may prescribe medicine to help you sleep until the stressful event is over or resolved. Counseling may also help you deal with psychological problems or reduce stress that may cause or contribute to your insomnia. Some sleeping medicine can be addictive. Your healthcare provider will work with you to choose the right medicine for short-term or long-term use. Your healthcare provider may recommend relaxation techniques, changes in diet, cutting out caffeine,and a healthy lifestyle that includes exercise. Your provider also will probably discuss good sleep habits and a regular sleep routine. How long will the effects last? Often insomnia lasts for just a few nights. If you cannot sleep almost every night for 2 weeks, tellyour healthcare provider. Insomnia that lasts this long usually continues until the cause is identified and treated. How can I take care of myself? Tell your healthcare provider if the treatment plan doesn't help. Tell your provider if you have side effects from medicine prescribed for the insomnia. Follow your provider's instructions for follow-up visits. How can I help prevent insomnia? Practice good sleep hygiene: Use the bedroom only for sleep and sex, not for reading or watching TV. Keep the room dark and the temperature comfortable. Consider listening to white noise, such as a fan blowing. Keep active during the day. Exercise and get some fresh air. Stick to a routine of going to bed and getting up at the same time each day. Limit daytime naps to no more than 1 hour each day. Avoid caffeine late in the day. If you eat late at night, keep it light. Keep a healthy weight. Being overweight may cause tiredness during the day and may worsen sleep apnea. Stop smoking. Try to reduce stress in your life by changing the things that cause stress. Keep a to do journal. Before you go to bed, write down all the things you are worrying about. Thenwrite down what you can do tomorrow. Demario the other things as things to do later in the week. This will help clear your mind of worry. Arrange your medicine schedule with your provider so that you take any drugs that might make you sleepy in the evening and drugs that may interfere with sleep during the day. Avoid daily use of sleep medicines. You may become dependent on them or build up your tolerance to them so that they no longer work as well. Most sleeping pills should not be used for more than 2 weeksin a row. Try not to focus on falling asleep. For example, don't keep checking the clock and worry about why you are not asleep yet. If you are awake for more than 30 minutes, leave the bed and do not go back tobed until you feel ready to sleep. Published by [employer]. This content is reviewed periodically and is subject to change as new health information becomes available. The information is intended to inform and educate and is not a replacement for medical evaluation, advice, diagnosis or treatment by a healthcare professional. Developed by Blossom Law RN, ID, and [facility]. ? 2009 [facility] and/or its affiliates. All Rights Reserved. Copyright ?? [employer] Reference Systems 2011 Adult Health Advisor documented in this encounter Progress Notes Aleksander Mercado MD - 02/20/2015 10:45 AM CDT SUBJECTIVE: Rena Turner is a 25 year old female who presents to clinic today for the following health issues: GABRIEL Follow-Up ?? Status since last visit: Improved. lexapro 20mg -denies side effects ?? Other associated symptoms:None ?? Complicating factors: Significant life event: No Current substance abuse: denies Depression symptoms: No No flowsheet data found. GAD7 Bipolar disorder Current regimen lamictal 50mg BID mood has been stable. H/o manic sx, none currently Feels sx have been stable overall/improved. Has not established care with psychiatry Chronic insomnia Pt presents with concerns about poor sleep. Has had poor sleep for years. Hours of sleep per night? 6-7. Caffeine use? minimal. Requests lorazepam. Has failed trials of melatonin, trazodone, benadryl ?? Amount of exercise or physical activity: 2-3 days/week for an average of 30- 45 minutes ?? Problems taking medications regularly: No ?? Medication side effects: none ?? Diet: regular (no restrictions) Patient Active Problem List Diagnosis ??? Generalized anxiety disorder ??? Bipolar I disorder ??? Insomnia No past surgical history on file. History [...] mg) by mouth daily 90 tablet 1 ??? lamoTRIgine (LAMICTAL) 100 MG tablet Take 0.5 tablets (50 mg) by mouth 2 times daily 180 tablet 1 ??? QUEtiapine (SEROQUEL) 50 MG tablet Take 1 tablet (50 mg) by mouth nightly as needed 30 tablet 1 ??? desogestrel-ethinyl estradiol (KARIVA) 0.15-0.02/0.01 MG (21/5) per tablet Take 1 tablet by mouth daily 3 Package 0 ROS: The following systems have been completely reviewed and are negative except as noted in the HPI: CONSTITUTIONAL, CARDIOVASCULAR, PULMONARY OBJECTIVE: BP 102/70 mmHg Pulse 60 Temp(Src) 98.5 ??F (36.9 ??C) (Oral) Wt 185 lb (83.915 kg) Body mass index is 30.79 kg/(m^2). GENERAL: alert, well nourished, well hydrated, no distress NECK: no tenderness, no adenopathy RESP: lungs clear to auscultation - no rales, no rhonchi, no wheezes CV: regular rates and rhythm, normal S1 S2, no S3 or S4 and no murmur, no click or rub MS: extremities- no edema ASSESSMENT/PLAN: ICD-9-CM 1. Bipolar I disorder 296.7 lamoTRIgine (LAMICTAL) 100 MG tablet CBC with platelets differential Comprehensive metabolic panel Improved, continue lamictal 2. GABRIEL (generalized anxiety disorder) 300.02 escitalopram (LEXAPRO) 20 MG tablet Improved, continue lexapro 3. Insomnia 780.52 QUEtiapine (SEROQUEL) 50 MG tablet Start trial of seroquel A handout with pertinent patient health education information is given-insomnia Aleksander Mercado MD [facility] documented in this encounter Plan of Treatment Not on filedocumented as of this encounter Procedures Procedure Name Priority Date/Time Associated Comments Diagnosis CBC WITH PLATELETS & Routine 02/20/2015 11:19 Bipolar I disord er Results for this DIFFERENTIAL AM CDT (H) procedure are i n the results section. COMPREHENSIVE Routine 02/20/2015 11:19 Bipolar I disorder Resu lts for this METABOLIC PANEL AM CDT (H) procedure ar e in the results section. documented in this encounter Results Comprehensive metabolic panel (02/20/2015 11:19 AM CDT) [facility] Method Time Signature Sodium 140 133 - 144 [place] mmol/L [facility] Potassium 4.0 3.4 - 5.3 [place] mmol/L [facility] Chloride 107 94 - 109 [place] mmol/L [facility] Carbon Dioxide 27 20 - 32 [place] mmol/L [facility] Anion Gap 6 3 - 14 [place] mmol/L [facility] Glucose 87 70 - 99 [place] mg/dL [facility] Urea Nitrogen 11 7 - 30 [place] mg/dL [facility] Creatinine 0.72 0.52 - [place] 1.04 CLINICS mg/dL [facility] GFR Estimate >90 >60 [place] Non GFR Calc mL/min/1. CLINICS 7m2 [facility] GFR Estimate If >90 >60 [place] Black GFR Calc mL/min/1. CLIN ICS 7m2 [facility] Calcium 9.0 8.5 - [facility] 10.1 CLINICS mg/dL [facility] Bilirubin Total 0.2 0.2 - 1.3 [place] mg/dL [facility] Albumin 3.5 3.4 - 5.0 [place] g/dL [facility] Protein Total 7.0 6.8 - 8.8 [place] g/dL [facility] Alkaline 88 40 - 150 [place] Phosphatase U/L [facility] ALT 21 0 - 50 [place] U/L [facility] AST 11 0 - 45 [place] U/L [facility] Specimen Anatomical Collection Method Collection Time Receive d Time (Source) Location / / Volume Laterality Blood specimen 02/20/2015 11:19 5 (specimen) AM CDT 11:20 AM CDT Aleksander Mercado MD LAB - BLOOD ORDERABLES Performing Organization Address City/State/ZIP Code Phon e Number [facility] [address] [place] [address] CBC with platelets differential (02/20/2015 11:19 AM CDT) [facility] gist Method Time Signature WBC 10.3 4.0 - [facility] 11.0 CLINICS 10e9/L DEV RBC Count 4.12 3.8 - 5.2 [place] 10e12/L [facility] DEV Hemoglobin 12.8 11.7 - [facility] 15.7 g/dL [facility] DEV Hematocrit 38.3 35.0 - [facility] 47.0 % [facility] DEV MCV 93 78 - 100 [place] fl [facility] DEV MCH 31.1 26.5 - [facility] 33.0 pg CLINICS DEV MCHC 33.4 31.5 - [facility] 36.5 g/dL [facility] DEV RDW 12.1 10.0 - [facility] 15.0 % [facility] DEV Platelet Count 409 150 - 450 [place] 10e9/L [facility] DEV Diff Method Automated [place] Method [facility] DEV % Neutrophils 54.8 % [facility] DEV % Lymphocytes 37.4 % [facility] % Monocytes 5.7 % [facility] % Eosinophils 1.9 % [facility] % Basophils 0.2 % [facility] Absolute 5.6 1.6 - 8.3 [place] Neutrophil 10e9/L [facility] DEV Absolute 3.8 0.8 - 5.3 [place] Lymphocytes 10e9/L [facility] DEV Absolute 0.6 0.0 - 1.3 [place] Monocytes 10e9/L [facility] DEV Absolute 0.2 0.0 - 0.7 [place] Eosinophils 10e9/L [facility] DEV Absolute 0.0 0.0 - 0.2 [place] Basophils 10e9/L [facility] DEV Specimen Anatomical Collection Method Collection Time Receive d Time (Source) Location / / Volume Laterality Blood specimen 02/20/2015 11:19 5 (specimen) AM CDT 11:20 AM CDT Aleksander Mercado MD LAB - BLOOD ORDERABLES Performing Organization Address City/State/ZIP Code Phon e Number [facility] [address] [place] [address] documented in this encounter Visit Diagnoses Diagnosis Bipolar I disorder (H) - Primary Bipolar I disorder, most recent episode (or current) unspecified GABRIEL (generalized anxiety disorder) Generalized anxiety disorder Insomnia Insomnia, unspecified documented in this encounter Care Teams Snuff Drier Relationship Specialty Start Date End Date Lalita Perez MD PCP - General Student in [facility] 10/21/1404/21 care education/training program documented as of this encounter
[2022-04-10 10:14] LABS: Rapid Plasma Reagin (RPR) Non Reactive (Non Reactive)
== END 2022-04-09 07:14 | disposition home or self-care (01) ==
LOC: US 07:14
PROVIDERS: Visit Provider Physician Assistant
DX: O99.213 Obesity complicating pregnancy, third trimester (principal); Z3A.29 29 weeks gestation of pregnancy
CPT/HCPCS: 36415; 76816; 86592

== ENCOUNTER 2022-05-29 10:51 | Outpatient (CLI) | payer OTHER, SELFPAY ==
--- OUTSIDE RECORDS SUMMARY | 2022-05-29 10:53 | XMS_ITS | Clinical Summary ---
:1990 Author Organization [facility] [place] [address] Care Team Providers Name Role Phone Evelyn Arnett NP Primary Care Provider Allergies Active Allergy Reactions Severity Noted Date [...] Name Administration Dates Next Due COVID-19 vaccine (Infratel 07/26/2021, 12/08/2020, 30mcg/0.3mL) PF, MDV Td (Age [...] luis e DO Complications: None Delivery Location: [facility]) Current Last Filed Vital Signs Vital Sign Reading Time Taken Comments Blood Pressure 120/76 01/02/2022 1:19 PM CDT Pulse 72 01/02/2022 1:19 PM CDT Temperature 37 ??C (98.6 ??F) 09/16/2021 3:22 PM SENIOR ATTORNEY Respiratory Rate 15 01/02/2022 1:19 PM CDT Oxygen Saturation 97% 09/16/2021 3:22 PM SENIOR ATTORNEY Inhaled Oxygen Concentration - - Weight 103.4 kg (228 lb) 01/02/2022 1:19 PM CDT Height 160 cm (5' 3) 01/02/2022 1:19 PM CDT Body Mass Index 40.39 01/02/2022 1:19 PM CDT Plan of Treatment Health Maintenance Due Date Last Done Comments Hepatitis C screening for age 0601/15/2006 18-79 COVID-19 vaccine series (4 - 09/20/2021 07/26/2021, 021, Booster for Pfizer series) 11/10/2020 Influenza for age 9-49 04/10/2022 BMI (ht and wt on same day) for 01/02/2023 01/02/2022, 06/11, age 18+ 06/07/2021, Additional history exists Depression screening for age 12+ 01/02/2023 01/02/2022, , 07/05/2021, Additional history exists Pap test for age 21-65 12/25/2024 12/25/2021, 12/25/2021, 11/07/2020 (Completed outside of [facility]), Additional history exists Tetanus booster 07/09/2030 07/09/2020, 04/10/2016, 10/08/2008, Additional history exists Tdap Completed 07/09/2020, 04/10/2016 Results Not on filefrom Last 3 Months Additional Health Concerns Infection Onset Date Last Indicated Rule-Out C.diff 12/12/2020 12/12/2020 Insurance Payer Benefit Plan / Subscriber ID Effective Dates Phone Addre ss Type Group [facility] [id number] 2020-[place] [id number] [place] [address] Advance Directives Latest Code Status on File Code Status Date Activated Date Inactivated Comments Full Code 12/26/2011 7:11 AM 12/26/2011 2:47 PM Care Teams Operations Superintendent Relationship Specialty Start Date End Date Evelyn Arnett, RETAIL ASSISTANT STORE MANAGER PCP - General Nurse Practitioner 12/27/20 [address] [place] [address]
--- OUTSIDE RECORDS SUMMARY | 2022-05-29 10:54 | XMS_ITS | Encounter Summary ---
:1990 Author Organization [facility] Address [address] [place] [address] Care Team Providers Name Role Phone Blank Lemos MD Primary Care Provider Blank Lemos MD Unavailable Kathleen Lacy CNM Unavailable Anabell Shannon Unavailable Unavailable Encounter Details Date Type Department Care Team Description 11/06/2020 Travel Social History Tobacco Use Types Packs/Day Years Used Date Smoking Tobacco: Former Cigarettes 0.3 8 Quit : 06/24/2019 Smokeless Tobacco: Never Alcohol Use Standard Drinks/Week Comments No 0 [...] documented as of this encounter Care Teams Low Altitude Air Defense Officer Relationship Specialty Start Date End Date Blank Lemos, PCP - General Internal Medicine 04/22/[address] [place] [address] KISHAN RENO [phone] Blank Lemos, Assigned PCP [facility] KISHAN RENO [address] Kathleen Lacy CNM Assigned OBGYN Provider 06/01/20 11/23/21 [place] [id number] Anabell Shannon Personal Advocate & 10/25/20 Liaison (PAL) documented as of this encounter
--- OUTSIDE RECORDS SUMMARY | 2022-05-29 10:54 | XMS_ITS | Encounter Summary ---
:1990 Author Organization [facility] Address [facility] [place] [address] Care Team Providers Name Role Phone Blank Lemos MD Primary Care Provider Blank Lemos MD Unavailable Anabell Shannon Unavailable Unavailable Sharita Frias MD Unavailable Reason for Visit Reason Comments Ultrasound RL2-subopt anatomy Encounter Details Date Type Department Care Team Description 03/05/2022 Office Visit [facility] Aimee Aguilar abn ormality Maternal MD Sean [facility] [address] of mother, antepartum, [facility] [address] single or unspecified [address] [place], [place] fetus (Primary Dx) [address] [address] [place], [place] [phone] (Work) [phone] Social History Tobacco Use Types Packs/Day Years [...] documented as of this encounter Care Teams Curriculum Writer Relationship Specialty Start Date End Date Blank Lemos, PCP - General Internal Medicine 04/22/18 [address] [facility] KISHAN RENO [address] Blank Lemos, Assigned PCP 04/25/18 [address] [facility] KISHAN RENO [address] Anabell Shannon Personal Advocate & 10/25/20 Liaison (PAL) Sharita Frias, Assigned OBGYN Provider 01/25/22 [address] [place] [address] documented as of this encounter
--- OUTSIDE RECORDS SUMMARY | 2022-05-29 10:54 | XMS_ITS | Encounter Summary ---
:1990 Author Organization [facility] Address [facility] [place] [address] Care Team Providers Name Role Phone Blank [...] Procedures MFM US Comprehensive Single F/U [address] [place], [place] [address] Referral ID Status Reason Start Date Expiration Date Visits V isits Requested Authorized [id number] Pending 02/05/2022 02/05/2023 1 1 Review Reason for Visit Reason Comments Ultrasound L2-BMI 40 Encounter Details Date Type Department Care Team Description 02/05/2022 Office Visit [facility] Coco Ortiz APRN [facility] [address] [place] [address] abnormality Maternal Aimee Aguilar MD [address] [place], [place] [id number] affecting management Medicine Center of mother, Kely antepartum, single or [address] unspecif ied fetus [address] (Primary Dx) [place] [phone] Social History Tobacco Use Types Packs/Day Years [...] ABREU Study Date: 03/05/2022 9:05am Pat. NO: [id number] Referring ??MD: COCO ORTIZ Site: [address] Boss: Hood Mcwilliams RDMS : 1990 Age: 32 [...] 1 lb 5 ?oz EFW by ?Hadlock ([id number]) Head / Face / Neck Biometry: Zinc Furnace Charger ? 4.9 ? mm CM ?4.8 ? [...] documented previously: Heart / Thorax ?RVOT view. [id number] view. ? Diaphragm. Spine ?Sacral spine. Gender: [...] are anticipat ed to be done in [place]. We recommend serial growth every 4-6 weeks [...] Pat. Name:Noemi ABREU Date: 9:05am Pat. NO: [id number] MD:CARMENCITA ORTIZ [facility]Sandra Fleming :1990Age:32 INDICATION BMI 40 METHOD [...] 1 lb 5 oz EFW by Hadlock ([id number]) Head / Face / Neck Biometry: Zinc Furnace Charger 4.9 mm CM 4.8 mm Nasal bone [...] documented previously: Heart / Thorax RVOT view. 6-[id number] ea view. Diaphragm. Spine Sacral spine. Gender: [...] are anticipat ed to be done in [place]. We recommend serial growth every 4-6 weeks [...] volume appeared no rmal. Aimee Aguilar MD [facility] US ORDERABLES documented in this encounter Visit Diagnoses Diagnosis abnormality affecting management o f mother, antepartum, single or unspecified fetus - Primary abnormality affecting management o f mother, antepartum, single or unspecified fetus documented in this encounter Additional Health Concerns Assessment Noted Time PHQ-9 Depression Total Score: 2 11/06/2020 3:02 PM CDT documented as of this encounter Care Teams Trial Paralegal Relationship Specialty Start Date End Date Blank Lemos, PCP - General Internal Medicine 04/22/[address] [place] [address] [place], [place] [phone] Blank Lemos, Assigned PCP 04/25/[address] [place] [address] KISHAN RENO [id number] Anabell Shannon Personal Advocate & 10/25/20 Liaison (PAL) Sharita Frias, Assigned OBGYN Provider 01/25/22 [address] [place] [address] documented as of this encounter
--- OUTSIDE RECORDS SUMMARY | 2022-05-29 10:54 | XMS_ITS | Encounter Summary ---
:1990 Author Organization [facility] Address [address] [place] [address] Care Team Providers Name Role Phone Blank [...] documented as of this encounter Care Teams Recreation Programmer Relationship Specialty Start Date End Date Blank Lemos, PCP - General Internal Medicine 04/22/[address] [place] [address] KISHAN RENO [phone] Blank Lemos, Assigned PCP 04/25/[address] [place] [address] KISHAN RENO [phone] Anabell Shannon Personal Advocate & 10/25/20 Liaison (PAL) Sharita Frias, Assigned OBGYN Provider 01/25/22 [address] [place] [phone] documented as of this encounter
--- OUTSIDE RECORDS SUMMARY | 2022-05-29 10:54 | XMS_ITS | Encounter Summary ---
:1990 Author Organization [place] Address [address] [facility] [place] [address] Care Team Providers Name Role Phone Blank Lemos MD Primary Care Provider Blank Lemos MD Unavailable Anabell Shannon Unavailable Unavailable Kathleen Lacy CNM Unavailable Sharita Frias MD Unavailable Encounter Details Date Type Department Care Team Description 01/24/2022 Medical Correspondence [facility] Scan, MATERNAL Health Info Mgmt Non-Provider MEDICINE CE [facility] PROVIDER SERVICE [address] [place] [address] REQUEST[place] [address] [phone] C[facility] Social History Tobacco Use Types Packs/Day [...] documented as of this encounter Care Teams [employer] Technology Transactions Attorney Relationship Specialty Start Date End Date Blank Lemos, PCP - General Internal Medicine 04/22/[address] [place] [address] [place] [address] Blank Lemos, Assigned PCP 04/25/[address] [place] [address] KISHAN RENO [id number] Anabell Shannon Personal Advocate & 10/25/20 Liaison (PAL) Kathleen Lacy CNM Assigned OBGYN Provider 01/18/22 01/24/22 [place] [address] Sharita Frias, Assigned OBGYN Provider 01/25/22 [address] [place] [address] documented as of this encounter
--- OUTSIDE RECORDS SUMMARY | 2022-05-29 10:54 | XMS_ITS | Encounter Summary ---
:1990 Author Organization [place] Address [address] [place] [address] Care Team Providers Name Role Phone Blank Lemos MD Primary Care Provider Blank Lemos MD Unavailable Kathleen Lacy CNM Unavailable Reason for Visit Reason Comments Surgical Followup check incision - has been ir ritated since surgery, but worsening now with odor Encounter Details Date Type Department Care Team Description 10/18/2020 Office Visit [facility] Yonathan Giraldo for postoperative wound check (Primary Dx); [facility] MD Avelino Morbid obesity (H) [place] [address] [facility] [address] [place], [place] [address] [place] [address] Social History Tobacco Use Types [...] with No / Unsure 10/18/2020 2:11 PM FRIT COATER someone who was confirmed or suspected to have Coronavirus / COVID-19? documented as of this encounter Last Filed Vital Signs Vital Sign Reading Time Taken Comments Blood Pressure 108/72 10/18/2020 2:16 PM FRIT COATER Pulse - - Temperature 36.8 ??C (98.3 ??F) 10/18/2020 2:16 PM FRIT COATER Respiratory Rate - - Oxygen Saturation - - Inhaled Oxygen Concentration - - Weight 105 kg (231 lb 6.4 oz) 10/18/2020 2:16 PM FRIT COATER Height - - Body Mass Index 40.99 09/28/2020 8:52 AM FRIT COATER documented in this encounter Progress Notes Yonathan [...] PP visit or prn Macho Giraldo MD COATER documented in this encounter Nursing Notes Shi [...] completed using cuff size largeReno Rinaldi CMA COATER documented in this encounter Plan of Treatment Not on filedocumented as of this encounter Visit Diagnoses Diagnosis Encounter for postoperative wound check - Primary Other specified aftercare following surg genia Morbid obesity (H) Morbid obesity documented in this encounter Additional Health Concerns Assessment Noted Time PHQ-9 Depression Total Score: 5 12/06/2020 7:02 AM CDT documented as of this encounter Care Teams Analytics Senior Manager Relationship Specialty Start Date End Date Blank Lemos MD PCP - General Internal Medicine 04/22/18 [address] [facility] KISHAN RENO [phone] Blank Lemos MD Assigned PCP 04/25/[address] [place] [address] KISHAN RENO [phone] Kathleen Lacy CNM Assigned OBGYN Provider 06/01/20 11/23/21 [address] [place] [address] documented as of this encounter
--- OUTSIDE RECORDS SUMMARY | 2022-05-29 10:54 | XMS_ITS | Encounter Summary ---
:1990 Author Organization [place] Address [address] [place] [address] Care Team Providers Name Role Phone Blank Lemos MD Primary Care Provider Blank Lemos MD Unavailable Kathleen Lacy CNM Unavailable Anabell Shannon Unavailable Unavailable Encounter Details Date Type Department Care Team Description 11/27/2020 Medical Correspondence [facility] Scan, [facility] Non-Provider POST-ANDIE Srvcs DEPRESSION SCALE [address] [place] [address] [place] [address] WELL-CHILD VISITS [phone] Social History Tobacco Use Types Packs/Day Years [...] documented as of this encounter Care Teams Farmworker [employer] Relationship Specialty Start Date End Date Blank Lemos, PCP - General Internal Medicine 04/22/[address] [place] [address] KISHAN RENO [phone] Blank Lemos, Assigned PCP [facility]/25/[facility] KISHAN RENO [phone] Kathleen Lacy CNM Assigned OBGYN Provider 06/01/20 11/23/21 [place] [address] Anabell Shannon Personal Advocate & 10/25/20 Liaison (PAL) documented as of this encounter
--- OUTSIDE RECORDS SUMMARY | 2022-05-29 10:54 | XMS_ITS | Encounter Summary ---
:1990 Author Organization [place] Address [facility] [place] [address] Care Team Providers Name Role Phone Blank Lemos MD Primary Care Provider Blank Lemos MD Unavailable Anabell Shannon Unavailable Unavailable Sharita Frias MD Unavailable Reason for Visit Reason Comments Ultrasound L2- BMI 40 Encounter Details Date Type Department Care Team Description 01/29/[address] [facility], Ultrasound (L2- BMI 40) Maternal Medicine [facility] [address] [facility] [address] [place] [address] Social History Tobacco Use Types [...] documented as of this encounter Care Teams Sports Medicine Masseur Relationship Specialty Start Date End Date Blank Lemos, PCP - General Internal Medicine 04/22/[address] [place] [address] KISHAN RENO [phone] Blank Lemos, Assigned PCP 04/25/[address] [place] [address] KISHAN RENO [phone] Anabell Shannon Personal Advocate & 10/25/20 Liaison (PAL) Sharita Frias, Assigned OBGYN Provider 01/25/22 [address] [place] [address] documented as of this encounter
--- OUTSIDE RECORDS SUMMARY | 2022-05-29 10:54 | XMS_ITS | Encounter Summary ---
:1990 Author Organization [place] Address [facility] [place] [address] Care Team Providers Name Role Phone Blank Lemos MD Primary Care Provider Blank Lemos MD Unavailable Kathleen Lacy CNM Unavailable Reason for Visit Reason Comments Laboring Auth/Cert Specialty Diagnoses / Procedures Referred By Contact Refer red To Contact cardiology physician assistant Diagnoses Indication for care in labor or delivery Indication for care in labor or delivery Rh Procedures L AND D [address] [place], [place] [address] Phone: Fax: Referral ID Status Reason Start Date Expiration Date Visits Requ ested Visits Authorized [id number] 1 1 Encounter Details Date Type Department Care Team Description 09/28/2020 Surgery [facility] Wendy Gregg, SECTION PeriOp Services DO [address] [address] [place] [address] [place], [place] [id number] (Wo rk) Surgery Details Date/Time Status Location OR Service Patient Class Case Case Trauma Class Type Case? 09/28/20 7:45 Posted RH OR OR 07 Obstetrics Inpatient PM Panel 1 Procedure LRB Anes Op Region Wound Class Commen ts SECTION N/A Epidural Abdomen II-Clean Contaminat ed Surgeon Surgeon Role Service Panel Tillemans, Wendy Zoë, DO Primary Obstetrics 1 documented in this [...] with No / Unsure 09/28/2020 8:47 AM CLOTH BALE HEADER someone who was confirmed or suspected to have Coronavirus / COVID-19? documented as of this encounter Last Filed Vital Signs Vital Sign Reading Time Taken Comments Blood Pressure 110/66 09/28/2020 9:45 PM CLOTH BALE HEADER Pulse 85 09/28/2020 9:45 PM CLOTH BALE HEADER Temperature 36.9 ??C (98.4 ??F) 09/28/2020 9:00 PM CLOTH BALE HEADER Respiratory Rate 16 09/28/2020 9:45 PM CLOTH BALE HEADER Oxygen Saturation 96% 09/28/2020 6:09 PM CLOTH BALE HEADER Inhaled Oxygen Concentration - - Weight 112.9 kg (249 lb) 09/28/2020 8:52 AM CLOTH BALE HEADER Height 160 cm (5' 3) 09/28/2020 8:52 AM CLOTH BALE HEADER Body Mass Index 44.11 09/28/2020 8:52 AM CLOTH BALE HEADER documented in this encounter Discharge Summaries Danial Falcon MD - 09/30/2020 9:24 AM CST [facility] Obstetrics Post-Op / Discharge Summary Note Assessment and Plan: Assessment: Post-operative day #2 Low transverse primary section L&D complications: A 30 year oldckr-ktam-dfc at 40w1d weeks estimated gestational age admitted [...] phosphate (FLEET ENEMA) 1 enema ??? Tdap (rotggol-hhtuvmgres-nrjzp pertussis) (ADACEL) injection 0.5 mL ??? tranexamic [...] studies have been ordered Danial Falcon MD H BALE HEADER documented in this encounter Discharge Instructions Discharge InstructionsLakeshia Mullen RN - 09/30/2020 1:40 PM CST Postop Instructions Make an appointment to be seen in the clinic in 6 weeks. [facility]: [phone] Activity ?? Do not lift more than [...] questions or concerns after you return home. H BALE HEADER documented in this encounter Medications at Time [...] Falcon MD - 09/30/2020 9:21 AM CST [facility] Obstetrics Post-Op / Progress Note Assessment and Plan: Assessment: Post-operative day #2 Low transverse primary section L&D complications: A 30 year oldwaz-rcdo-cjd at 40w1d weeks estimated gestational age admitted [...] phosphate (FLEET ENEMA) 1 enema ??? Tdap (avvtfig-qrkqvnrbsa-nmgip pertussis) (ADACEL) injection 0.5 mL ??? tranexamic [...] studies have been ordered Danial Falcon MD H BALE HEADER Dina Germain MD - 09/29/2020 11:45 AM [...] discharge in 1-2 days Dina Germain MD H BALE HEADER Soledad Jones CNM - 09/28/2020 6:48 PM CST YARELI [...] protocol Reassess in 2 hours or prn Britney Jones CNM 09/28/2020 4:36 PM H BALE HEADER Soledad Jones CNM - 09/28/2020 12:51 PM [...] contractions Reassess in 2-4 hours or PRN Britney Jones CNM 09/28/2020 2:12 PM H BALE HEADER Soledad Jones CNM - 09/28/2020 10:48 AM [...] to Reassess short interval Soledad Jones CNM H BALE HEADER documented in this encounter H&P Notes Wendy Gregg DO - 09/28/2020 7:18 PM CST [facility] Labor and Delivery Consultation note Rena [...] -- -- 94 % -- -- 09/28/20 165 -- -- -- -- 96 % -- -- 09/28/20 1649 -- -- -- -- 95 % -- -- 09/28/20 1648 106/64 -- -- -- -- -- -- 09/28/20 1624 -- -- -- -- 95 % -- -- 09/28/20 1619 -- -- -- -- 95 % -- -- 09/28/20 1618 118/64 98.4 ??F (36.9 ??C) Oral 16 -- -- -- 09/28/20 161 -- -- -- -- 96 % -- [...] orders Prepare for section. Wendy Gregg DO H BALE HEADER Soledad Jones CNM - 09/28/2020 9:09 AM CST [facility] Labor Admission History & Physical Rena Resendiz is a 30 year old with an IUP at 40w1d ; , Partner/support Person: Micah Language Barrier: [place] Clinic: [facility] Provider: Robert Rena Resendiz is [facility] on 09/28/2020 at 9:09 AM History of [...] found, no interventions. Pt thinks this happened [id number] ??? TONSILLECTOMY Family History Problem Relation Age [...] orders Britney Jones CNM 09/28/2020 9:23 AM H BALE HEADER documented in this encounter Miscellaneous Notes Plan of Care - Lakeshia Mullen RN - 09/30/2020 2:41 PM CST Discharge instructions reviewed with patient and . Understanding verbalized. Will discharge to home with and baby. H BALE HEADER Plan of Care - Lakeshia Mullen RN [...] she was comfortable. Patient education done about and self cares and discharge instructions. See flow record. Response: Positive attachment behaviors observed with . Support persons present. Plan: Anticipate discharge today. H BALE HEADER Plan of Care - Karol Hayden RN - 09/30/2020 2:52 AM CST Pt meeting expected goals for shift. Positive attachment behaviors noted with . Pain managed with scheduled meds - See MAR. Support person Micah at bedside and attentive to pt needs. pt encouraged to complete discharge paperwork/videos. Will continue to monitor and adjust plan as needed. H BALE HEADER Note - Elisabeth Shi RN - 09/29/2020 [...] questions answered. Encouraged to call for assistance. H BALE HEADER Plan of Care - Kathleen Wright RN - 09/29/2020 7:59 PM CST Pt up ambulating independently. Voiding without difficulty. Incision covered . Reports adequate paincontrol with current pain plan. Family present and supportive. Meeting expected goals. Mother attentive to infants needs. , using nipple shield. H BALE HEADER Plan of Care - Maria Del Rosario Steven RN - 09/29/2020 1:37 PM CST Pt doing well today. VSS. FF/1. Tolerating a regular diet. Up to BR with assist x1 today. Harrington catheter removed. Pt saline locked. Encouraged patient to drink plenty of water today. Bonding well with infant. infant with a nipple shield. Taking ibuprofen, tylenol and oxycodone for pain. Micah present and supportive today. Maria Del Rosario Steven RN H BALE HEADER Plan of Care - Kathleen Hurley RN [...] gluten free diet. FOB here and supportive. H BALE HEADER L&D Delivery Note - Wendy Gregg DO [...] Procedure Details: See operative note Paris Resendiz-Rena [[id number]] Labor Event Times Labor onset date: 09/28/20 [...] Normal 1:1 continuous labor support provided by?: biomed tech/Placenta Date and Time Delivery Date: 09/28/20 Delivery Time: 8:09 PM Placenta Date/Time: 09/28/2020 8:10 PM Vaginal Counts Panacea Suture Panacea Sponges Instruments Initial counts Added to count [...] Nuchal Gases Sent?: Yes Resuscitation Methods: None [place] Measurements Weight: 7 lb 15 oz Length: [...] present?: Neg Delivery (Maternal) (Provider to Complete) ([id number]) Episiotomy: None Perineal lacerations: None Blood Loss Mother: Rena Resendiz #[id number] Start of Mother's Information IO Blood Loss 09/28/20 0530 - 09/29/20 0634 None End of Mother's Information Mother: Rena Resendiz #[id number] Delivery - Provider to Complete ([id number]) Delivering clinician: Wendy Gregg DO CNM Care: [...] Position: Left Occiput Anterior Wendy Gregg DO H BALE HEADER Plan of Care - Maricruz Rogers RN - 09/28/2020 11:48 PM CST Data: Renablaine Resendiz transferred to [facility] via studio model at 1135. Baby transferred via parent's arms. Action: Receiving unit notified of transfer: Yes. Patient and family notified of room change. Reportgiven to Kathleen TOLLIVER at 2330. Belongings sent to receiving unit. Accompanied by Registered Nurse. Oriented patient to surroundings. Call light within reach. ID bands double-checked with receiving RN. Response: Patient tolerated transfer and is stable. H BALE HEADER Op Note - Wendy Gregg DO - 09/28/2020 8:53 PM CST PREOPERATIVE DIAGNOSIS: A 30 year oldmzj-ngte-clq at 40w1d weeks estimated gestational age admitted for labor with arrest of dilation, obesity. POSTOPERATIVE DIAGNOSES: A 30 year oldfcu-bkxh-vfh at 40w1d weeks estimated gestational age admitted for labor with arrest of dilation, obesity. PROCEDURE: 1. Primary low transverse section. 2. Seprafilm placement for adhesiolysis. COMPLICATIONS: None apparent at time of procedure. ESTIMATED BLOOD LOSS: 400 mL. SURGEON: Wendy Gregg DO. INDICATIONS: A 30 year oldnho-qjml-zce at 40w1d weeks estimated gestational age admitted for labor with arrest of dilation, obesity. BMI 44. Patient signed consent for primary section, risks benefits, alternatives are discussed withthe patient. OUTCOME: female infant 7# 15 oz apgars 5 at 1 [...] counts were correct x2. WENDY GREGG DO H BALE HEADER Plan of Care - Maria Del Rosario Steven RN - 09/28/2020 9:19 AM CST 0735: , 40w1d, here for rule out labor. Pt states she has been nelson every 2-2.5 min [id number] this morning. EUM and EFM placed. Admission [...] forpain. LR bolus started for epidural preparation. 0905: YARELI Dudley here to see pt. 0930: [...] to progress. Maria Del Rosario Steven RN H BALE HEADER documented in this encounter Plan of Treatment Scheduled Orders Name Type Priority Associated Diagnoses Order S chedule See Providers Orders Lab Routine Release Upon Ordering for 1 Occurrences sta rting 09/28/2020 documented as of this encounter Procedures Procedure Name Priority Date/Time Associated Comments Diagnosis HEMOGLOBIN Routine 09/29/2020 7:02 AM Indication for care Re sults for this CLOTH BALE HEADER in labor or procedure are i n delivery the results section. PLACENTA PATH ORDER Routine 09/28/2020 8:13 PM Re sults for this AND INDICATIONS CLOTH BALE HEADER procedure ar e in the results section. SECTION 09/28/2020 7:48 PM Failure to progres s CLOTH BALE HEADER in labor TREPONEMA ABS W STAT 09/28/2020 9:23 AM Result s for this REFLEX TO RPR AND CLOTH BALE HEADER procedure are in TITER the results section. ABO/RH TYPE AND STAT 09/28/2020 9:23 AM Result s for this SCREEN CLOTH BALE HEADER procedure are i n the results section. SARS-COV-2 (COVID-19) STAT 09/28/2020 8:40 AM Results for this VIRUS RT-PCR CLOTH BALE HEADER procedure are i n the results section. documented in this encounter Results (ABNORMAL) Hemoglobin (09/29/2020 7:02 AM CLOTH BALE HEADER) athologist Signature Hemoglobin 10.7 (L) 11.7 - 15.7 09/29/2020 [place] g/dL 7:42 AM [facility] Specimen Anatomical Collection Method Collection Time Receive d Time (Source) Location / / Volume Laterality Blood specimen 09/29/2020 7:02 AM 021 7:03 (specimen) CLOTH BALE HEADER AM CLOTH BALE HEADER Wendy Gregg DO LAB - BLOOD ORDERABLES Performing Organization Address City/State/ZIP Code Phon e Number [place] [address] [address] [place] [address] [address] [phone] Placenta Path Order and Indications (PLACENTA) (09/28/2020 8:13 PM CLOTH BALE HEADER) Component Value Ref Test Analysis Performed At [facility] gist Range Method Time Signature Copath Patient Name: RENA RESENDIZ Report MR#: [id number] Specimen #: [id number] Collected: 09/28/2020 Received: 10/01/2020 Reported: 10/02/2020 12:04 [...] of this testing was completed at the [facility], with the professional compo nent performed at the [facility], [address] [place] [address] ??[phone] ([phone]) CPT Codes: A: 42839-MU6 COLLECTION SITE: Client: [facility] Location: RHOR (R) Specimen Anatomical Collection Method Collection Time Receive d Time (Source) Location / / Volume Laterality Specimen from 09/28/2020 8:13 PM 10/01/19 21 8:32 placenta CLOTH BALE HEADER AM CLOTH BALE HEADER (specimen) Soledad XIAO Performing Organization Address City/State/ZIP Code Phon e Number COP[place] Treponema Abs w Reflex to RPR and Titer (09/28/2020 9:23 AM CLOTH BALE HEADER) [facility] gist Method Time Signature Treponema Nonreactive NR^Nonrea 09/28/2020 [facility] ctive 5:03 PM CLOTH BALE HEADER [facility] Comment: Methodology Change: Test performed on DiaSorin Liaison XL by Treponema pallidum Total Antibodies Assay as of . Specimen Anatomical Collection Method Collection Time Receive d Time (Source) Location / / Volume Laterality Blood specimen 09/28/2020 9:23 AM 021 9:24 (specimen) CLOTH BALE HEADER AM CLOTH BALE HEADER Soledad Jones CNM LAB - BLOOD ORDERABLES Performing Organization Address City/State/ZIP Code Phon e Number [address] [address] [facility] ABO/Rh type and screen (09/28/2020 9:23 AM CLOTH BALE HEADER) [facility] Method Time Signature ABO O 09/28/2020 [place] 10:18 AM [facility] RH(D) Pos [facility] Antibody Neg 09/28/2020 [place] Screen 10:18 AM [facility] Test Valid [place] 09/28/2020 [place] Only At [facility] 9:[address] [facility] Specimen 10/01/2020 09/28/2020 [place] Expires 9:43 AM [facility] Specimen Anatomical Collection Method Collection Time Receive d Time (Source) Location / / Volume Laterality Blood specimen 09/28/2020 9:23 AM 021 9:24 (specimen) CLOTH BALE HEADER AM CLOTH BALE HEADER Soledad Jones CNM LAB - BLOOD BANK TEST ORDER Performing Organization Address City/State/ZIP Code Phon e Number M [facility] [address] [address] [facility] [address] [phone] Asymptomatic SARS-CoV-2 COVID-19 Virus (Coronavirus) by PCR (09/28/2020 8:40 AM CLOTH BALE HEADER) [facility] Method Time Signature SARS-CoV-2 Nasopharyngeal 09/28/2020 [place] Virus 8:51 AM [facility]ITAL Source SARS-CoV-2 NEGATIVE 09/28/2020 [place] PCR Result 9:13 AM [facility] Comment: SARS-CoV2 (COVID-19) RNA not de tected, presumed negative. SARS-CoV-2 PCR Comment (Note) 09/28/2020 9:13 A [facility] Comment: Testing was performed using the vera [...] or clinical pr esentation suggests COVID-19. M [facility] [employer] are certi fied under the Clinical Laboratory Improvement Amendments of 1988 (CLIA-88) as qualified to perform moderate and/or high complexity laboratory testin g. Specimen (Source) Anatomical Collection Method Collection Time Re ceived Time Location / / Volume Laterality Specimen from 09/28/2020 8:40 09/28/2020 nasopharyngeal AM CLOTH BALE HEADER 8:51 AM CLOTH BALE HEADER structure (specimen) Soledad Jones CNM LAB - MICRO GENERAL ORDERABL ES Performing Organization Address City/State/ZIP Code Phon e Number [place] [address] [address] [address] [facility] [address] [phone] documented in this encounter Visit Diagnoses Diagnosis Indication for care in labor or delivery - Primary Unspecified indication for care or inter vention related to labor and delivery, unspecified as to episode of care Indication for care in labor or delivery [...] acetaminophen (TYLENOL) tablet Given 09/30/2020 12:04 PM CLOTH BALE HEADER 975 mg 975 mg 975 mg, Oral, EVERY 6 HOURS, First dose on Thu09/28/20 at 2330, Maximum acetaminophen dose from all sources = 75 mg/kg/day not to exceed 4 grams/day., Post-procedure Given 09/30/2020 5:42 AM CLOTH BALE HEADER 975 mg Given 09/30/2020 12:09 AM CLOTH BALE HEADER 975 mg dextrose 5% in lactated ringers infusion New Bag 09/29/2020 2:00 AM CLOTH BALE HEADER 125 mL/hr at 125 mL/hr, Intravenous, CONTINUOUS, Subsequent IV at nurse's discretion. DC IV when tolerating fluids or at nurse's discretion & saline lock., Post-procedure, Starting on Thu09/28/20 at 2330, Until 09/30/20 at 1703 escitalopram (LEXAPRO) tablet 20 mg Given 09/29/2020 10:37 PM CLOTH BALE HEADER 20 mg 20 mg, Oral, DAILY, First dose on 09/29/20 at 0900 ibuprofen (ADVIL/MOTRIN) tablet 800 mg Given 09/30/2020 10:24 AM CLOTH BALE HEADER 800 mg 800 mg, Oral, EVERY 6 HOURS, First dose on 09/29/20 at 2100, Give with food., Post-procedure Given 09/30/2020 4:33 AM CLOTH BALE HEADER 800 mg Given 09/29/2020 10:36 PM CLOTH BALE HEADER 800 mg naloxone (NARCAN) injection 0.2 mg [...] injection 4 mg Given 09/29/2020 12:56 AM CLOTH BALE HEADER 4 mg 4 mg, Intravenous, EVERY 6 HOURS PRN, nausea, vomiting, Administer over 2-5 Minutes, Starting on Thu09/28/20 at 2316, If nausea not resolved in 15 minutes, notify provider before proceeding to prochlorperazine (COMPAZINE) [if ordered]. Irritant. For ordered IV doses 0.1-4 mg, give IV Push undiluted over 2-5 minutes., Post-procedure oxyCODONE (ROXICODONE) tablet 5 mg Given 09/29/2020 10:36 PM CLOTH BALE HEADER 5 mg 5 mg, Oral, EVERY 4 HOURS PRN, other, pain control or improvement in physical function. Hold dose for analgesic side effects., Starting on Thu09/28/20 at 2316, Notify provider to assess for uncontrolled pain or analgesic side effects. Hold while on AUTOMOBILE ACCESSORIES INSTALLER or with regular IV opioid dosing. Maximum total is 60 mg in 24 hours., Post-procedure Given 09/29/2020 1:04 PM CLOTH BALE HEADER 5 mg senna-docusate (SENOKOT-S/PERICOLACE) Given 09/30/2020 9:[address] 1 tablet 8.6-50 MG per tablet 1 tablet 1 tablet, Oral, 2 TIMES DAILY, First dose on Thu09/28/20 at 2330, If no bowel movement in 24 hours, increase to 2 tablets PO. Hold for loose stools. Preferred agent for constipation related to opioids. Hold for loose stools., Post-procedure Given 09/29/2020 10:36 PM CLOTH BALE HEADER 1 tablet Given 09/29/2020 9:50 AM CLOTH BALE HEADER 1 tablet senna-docusate (SENOKOT-S/PERICOLACE) 8. 6-50 MG per tablet 2 tablet 2 tablet, Oral, 2 TIMES DAILY, First dos e on Thu09/28/20 at 2330, Hold for loose stools. Preferred agent for constipation related to op ioids. Hold for loose stools., Post-procedure simethicone (MYLICON) chewable tablet 80 mg Given 09/30/2020 3:27 AM CLOTH BALE HEADER 80 mg 80 mg, Oral, 4 TIMES DAILY PRN, other, gas, Starting on Thu09/28/20 at 2316, Chew., Post-procedure sodium chloride (PF) 0.9% PF flush 3 mL Given 09/29/2020 4:01 PM CLOTH BALE HEADER 3 mLs 3 mL, Intracatheter, EVERY 8 HOURS PRN, other, to lock peripheral IV dormant line, Starting on Thu09/28/20 at 2316, Post-procedure documented in this encounter Active and Recently Administered Medications Times are shown in CLOTH BALE HEADER. Scheduled Medication Order 09/28/2020 09/29/2020 09/30/2020 acetaminophen (TYLENOL) tablet 975 mg 00 56 (Not Given - Provider: Kathleen Hurley RN - Reason: Nausea)0613 (Given - Provider: Kathleen Hurley, RN)1216 (Given - Provider: Elvie Turcios, UNRULY)1759 (Given - Provider: Kathleen Wright, UNRULY) 0009 (Given - Provider: Rhianna Washington, RN)0542 (Given - Provider: Karol Hayden, RN)1204 (Given - Provider: Lakeshia Mullen, UNRULY) 975 mg, Oral, EVERY 6 HOURS, First dose on Thu09/28/20 at 2330, Maximum acetaminophen dose from all sources = 75 mg/kg/day not to exceed 4 grams/day., Post-procedure azithromycin 500 mg (ZITHROMAX) in 0.9% NaCl 250 mL intermittent infusion 500 mg (COMPLETED) 1929 (New Bag - Provider: Maricruz Rogers, RN)2030 (Stopped - Provider: Maricruz Rogers, RN) STAT, 500 mg, Intravenous, PRE-OP/PRE-IA OCEDURE, Starting Thu09/28/20 at 1851, For 1 [...] Kimble and Maria Del Rosario Steven RN, Absolu 1947 (Auto Hold - Provider: Orders [...] (Given - Provider: Maria Del Rosario Steven, UNRULY)1601 (Given - Provider: Kathleen Wright RN) 30 [...] Rosario Steven RN)2235 (Given - Provider: Kathleen Wright RN) 0950 (Given - Provider: Lakeshia Mullen RN) 1 tablet, Oral, 2 TIMES DAILY, First dos e on Thu09/28/20 at 2330, If no bowel movement in 24 hours, increase to 2 tablets PO. Hold for loose stools. Preferred agent for constipation related to opioids. Hold for loose stools., Post-procedure senna-docusate (SENOKOT-S/PERICOLACE) 8. 6-50 MG per tablet 2 tablet(Linked Group 1) 7 (Not Given - Provider: Kathleen fritz RN [...] minutes PRIOR TO SURGICAL PROCEDURE., Pre-procedure Tdap (hkzmjtw-frhuivfpcu-olbqz pertussis) (ADACEL) injection 0.5 mL 1000 (Canceled [...] infusion 0200 (New Bag - Provider: Kathleen Hurley, RN) at 125 mL/hr, Intravenous, CONTINUOUS, S [...] (PF) (SUBLIMAZE) injection 50-100 mcg (CANCEL ED) 903 (Given - Provider: Ambreen Medina RN)1947 (Auto Hold - Provider: Orders Generic Provider - Reason: Transfer to a procedural area)2051 (Unhold - Provider: Orders Generic Provider) 50-100 mcg, Intravenous, EVERY 1 HOUR IA N, other, desired pain relief based on [...] For ordered IV doses 0.1-2mg give I [employer] SALES REPRESENTATIVE. Give each 0.4mg over 15 seconds in [...] 4 mg 0056 (Given - Provider: Kathleen Hurley, RN) 4 mg, Intravenous, EVERY 6 HOURS [...] (Given - Provider: Maria Del Rosario Steven, UNRULY)2236 (Given - Provider: Kathleen Wright, UNRULY) 5 mg, Oral, EVERY 4 HOURS PRN, other, pa in control or improvement in physical function. Hold dose for analgesic side effects., Starting Thu09/28/20 at 2316, Notify provider to assess for uncontrolled pa in or analgesic side effects. Hold while on AUTOMOBILE ACCESSORIES INSTALLER or with regular IV opioid dosing. Maximum total is 60 mg in 24 hours., Post-procedure oxytocin (PITOCIN) 30 units in 500 mL 0.9% NaCl infusi on (COMPLETED) 2139 (New Bag - Provider: Maricruz Rogers, RN) 100-340 mL/hr, at 100-340 mL/hr, Intrave [...] 3 mL 1601 (Given - Provider: Kathleen Wright RN) 3 mL, Intracatheter, EVERY 8 HOURS PRN, [...] documented as of this encounter Care Teams Spine Supervisor Relationship Specialty Start Date End Date Blank Lemos MD PCP - General Internal Medicine 04/22/[address] [place] [address] KISHAN RENO [phone] Blank Lemos MD Assigned PCP 04/25/[address] [place] [address] [place] [id number] Kathleen Lacy CNM Assigned OBGYN Provider 06/01/20 11/23/21 [place] [address] documented as of this encounter
--- OUTSIDE RECORDS SUMMARY | 2022-05-29 10:54 | XMS_ITS | Encounter Summary ---
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 Diagnoses Indication for care in labor or delivery Indication for care in labor or delivery Rh Procedures L AND D [address] [place], [place] [address] Phone: Fax: Referral ID Status Reason Start Date Expiration Date Visits Requ ested Visits Authorized [id number] 1 1 Encounter Details Date Type Department Care Team Description 09/28/2020 - [facility] Stevan Jones, CNM [address] [place] [address] Indication for care in labor or delivery (Primary Dx); 09/30/2020 Encounter [facility] [place] [address] [place], [place] [id number] Postoperative state [address] [place] [address] Social History Tobacco Use Types [...] with No / Unsure 09/28/2020 8:47 AM MANAGER SCIENTIFIC someone who was confirmed or suspected to have Coronavirus / COVID-19? documented as of this encounter Last Filed Vital Signs Vital Sign Reading Time Taken Comments Blood Pressure 118/72 09/30/2020 9:40 AM MANAGER SCIENTIFIC Pulse 76 09/30/2020 9:40 AM MANAGER SCIENTIFIC Temperature 36.8 ??C (98.2 ??F) 09/30/2020 9:40 AM MANAGER SCIENTIFIC Respiratory Rate 18 09/30/2020 9:40 AM MANAGER SCIENTIFIC Oxygen Saturation 98% 09/29/2020 9:00 AM MANAGER SCIENTIFIC Inhaled Oxygen Concentration - - Weight 112.9 kg (249 lb) 09/28/2020 8:52 AM MANAGER SCIENTIFIC Height 160 cm (5' 3) 09/28/2020 8:52 AM MANAGER SCIENTIFIC Body Mass Index 44.11 09/28/2020 8:52 AM MANAGER SCIENTIFIC documented in this encounter Discharge Summaries Danial Falcon MD - 09/30/2020 9:24 AM CST [facility] Post-Op / Discharge Summary Note Assessment and Plan: Assessment: Post-operative day #2 Low transverse primary section L&D complications: A 30 year oldkue-wqtf-tgg at 40w1d weeks estimated gestational age admitted [...] phosphate (FLEET ENEMA) 1 enema ??? Tdap (qsztqqf-ospkpnsyul-luedg pertussis) (ADACEL) injection 0.5 mL ??? tranexamic [...] studies have been ordered Danial Falcon MD GER SCIENTIFIC documented in this encounter Discharge Instructions Discharge InstructionsLakeshia Mullen RN - 09/30/2020 1:40 PM CST Postop Instructions Make an appointment to be seen in the clinic in 6 weeks. [facility]: [phone] Activity ?? Do not lift more than [...] questions or concerns after you return home. GER SCIENTIFIC documented in this encounter Medications at Time [...] Falcon MD - 09/30/2020 9:21 AM CST [facility] Post-Op / Progress Note Assessment and Plan: Assessment: Post-operative day #2 Low transverse primary section L&D complications: A 30 year oldbii-csci-ftw at 40w1d weeks estimated gestational age admitted [...] phosphate (FLEET ENEMA) 1 enema ??? Tdap (dvtkyvc-mlpwyilssi-hdwda pertussis) (ADACEL) injection 0.5 mL ??? tranexamic [...] studies have been ordered Danial Falcon MD GER SCIENTIFIC Dina Germain MD - 09/29/2020 11:45 AM [...] prn HReno Jones CNM 09/28/2020 4:36 PM GER SCIENTIFIC Soledad Jones CNM - 09/28/2020 12:51 PM [...] H. Octavia Jones CNM 09/28/2020 2:12 PM GER SCIENTIFIC Soledad Jones CNM - 09/28/2020 10:48 AM [...] to Reassess short interval Soledad Jones CNM GER SCIENTIFIC documented in this encounter H&P Notes Wendy Gregg DO - 09/28/2020 7:18 PM CST [facility] Labor and Delivery Consultation note Rena Resendiz [...] orders Prepare for section. Wendy Gregg DO GER SCIENTIFIC Soledad Jones CNM - 09/28/2020 9:09 AM CST [facility] Labor Admission History & Physical Rena Resendiz is a 30 year old with an IUP at 40w1d ; , Partner/support Person: Micah Language Barrier: Swazi Clinic: [facility] Provider: Robert Rena Resendiz is [facility] on 09/28/2020 at 9:09 AM History of [...] found, no interventions. Pt thinks this happened [id number] ??? TONSILLECTOMY Family History Problem Relation Age [...] orders Britney Jones CNM 09/28/2020 9:23 AM GER SCIENTIFIC documented in this encounter Miscellaneous Notes Plan of Care - Lakeshia Mullen RN - 09/30/2020 2:41 PM CST Discharge instructions reviewed with patient and . Understanding verbalized. Will discharge to home with and baby. GER SCIENTIFIC Plan of Care - Lakeshia Mullen RN [...] Support persons present. Plan: Anticipate discharge today. GER SCIENTIFIC Plan of Care - Karol Hayden RN - 09/30/2020 2:52 AM CST Pt meeting expected goals for shift. Positive attachment behaviors noted with . Pain managed with scheduled meds - See MAR. Support person Micah at bedside and attentive to pt needs. pt encouraged to complete discharge paperwork/videos. Will continue to monitor and adjust plan as needed. GER SCIENTIFIC Note - Elisabeth Shi RN - 09/29/2020 [...] questions answered. Encouraged to call for assistance. GER SCIENTIFIC Plan of Care - Kathleen Wright RN - 09/29/2020 7:59 PM CST Pt up ambulating independently. Voiding without difficulty. Incision covered . Reports adequate paincontrol with current pain plan. Family present and supportive. Meeting expected goals. Mother attentive to infants needs. infant, using nipple shield. GER SCIENTIFIC Plan of Care - Maria Del Rosario [...] supportive today. Maria Del Rosario Steven RN GER SCIENTIFIC Plan of Care - Kathleen Hurley RN [...] gluten free diet. FOB here and supportive. GER SCIENTIFIC L&D Delivery Note - Wendy Gregg DO [...] aboveinformation confirmed. Procedure Details: See operative note Yue Female-Rena [[id number]] Labor Event Times Labor onset date: 09/28/20 [...] Normal 1:1 continuous labor support provided by?: editor publications/Placenta Date and Time Delivery Date: 09/28/20 Delivery Time: 8:09 PM Placenta Date/Time: 09/28/2020 8:10 PM Vaginal Counts [place] Suture [place] Sponges Instruments Initial counts Added to count [...] 3 Vessels Complications: Nuchal Gases Sent?: Yes [place] Resuscitation Methods: None [place] Measurements Weight: 7 lb 15 oz Length: [...] present?: Neg Delivery (Maternal) (Provider to Complete) ([id number]) Episiotomy: None Perineal lacerations: None Blood Loss Mother: Rena Resendiz #[id number] Start of Mother's Information IO Blood Loss 09/28/20 0530 - 09/29/20 0634 None End of Mother's Information Mother: Rena Resendiz #[id number] Delivery - Provider to Complete ([id number]) Delivering clinician: Wendy Gregg DO CNM Care: [...] Position: Left Occiput Anterior Wendy Gregg DO GER SCIENTIFIC Plan of Care - Maricruz Rogers RN - 09/28/2020 11:48 PM CST Data: Rena Resendiz transferred to [facility] via stroboscope operator at 1135. Baby transferred via parent's arms. Action: Receiving unit notified of transfer: Yes. Patient and family notified of room change. Reportgiven to Kathleen TOLLIVER at 2330. Belongings sent to receiving unit. Accompanied by Registered Nurse. Oriented patient to surroundings. Call light within reach. ID bands double-checked with receiving RN. Response: Patient tolerated transfer and is stable. GER SCIENTIFIC Op Note - Wendy Gregg DO - 09/28/2020 8:53 PM CST PREOPERATIVE DIAGNOSIS: A 30 year oldthh-qvkf-dpo at 40w1d weeks estimated gestational age admitted for labor with arrest of dilation, obesity. POSTOPERATIVE DIAGNOSES: A 30 year oldfin-pawz-hrj at 40w1d weeks estimated gestational age admitted for labor with arrest of dilation, obesity. PROCEDURE: 1. Primary low transverse section. 2. Seprafilm placement for adhesiolysis. COMPLICATIONS: None apparent at time of procedure. ESTIMATED BLOOD LOSS: 400 mL. SURGEON: Wendy Gregg DO. INDICATIONS: A 30 year oldzwz-rolg-duh at 40w1d weeks estimated gestational age admitted [...] counts were correct x2. WENDY GREGG DO GER SCIENTIFIC Plan of Care - Maria Del Rosario Steven RN - 09/28/2020 9:19 AM CST 0735: , 40w1d, here for rule out labor. Pt states she has been nelson every 2-2.5 min [id number] this morning. EUM and EFM placed. Admission [...] for failure to progress. Maria Del Rosario Steven, RN GER SCIENTIFIC documented in this encounter Plan of Treatment Scheduled Orders Name Type Priority Associated Diagnoses Order S chedule See Providers Orders Lab Routine Release Upon Ordering for 1 Occurrences sta rting 09/28/2020 documented as of this encounter Procedures Procedure Name Priority Date/Time Associated Comments Diagnosis HEMOGLOBIN Routine 09/29/2020 7:02 AM Indication for care Re sults for this MANAGER SCIENTIFIC in labor or procedure are i n delivery the results section. PLACENTA PATH ORDER Routine 09/28/2020 8:13 PM Re sults for this AND INDICATIONS MANAGER SCIENTIFIC procedure ar e in the results section. SECTION 09/28/2020 7:48 PM Failure to progres s MANAGER SCIENTIFIC in labor TREPONEMA ABS W STAT 09/28/2020 9:23 AM Result s for this REFLEX TO RPR AND MANAGER SCIENTIFIC procedure are in TITER the results section. ABO/RH TYPE AND STAT 09/28/2020 9:23 AM Result s for this SCREEN MANAGER SCIENTIFIC procedure are i n the results section. SARS-COV-2 (COVID-19) STAT 09/28/2020 8:40 AM Results for this VIRUS RT-PCR MANAGER SCIENTIFIC procedure are i n the results section. documented in this encounter Results (ABNORMAL) Hemoglobin (09/29/2020 7:02 AM MANAGER SCIENTIFIC) athologist Signature Hemoglobin 10.7 (L) 11.7 - 15.7 09/29/2020 [place] g/dL 7:42 AM [facility] Specimen Anatomical Collection Method Collection Time Receive d Time (Source) Location / / Volume Laterality Blood specimen 09/29/2020 7:02 AM 021 7:03 (specimen) MANAGER SCIENTIFIC AM MANAGER SCIENTIFIC Wendy Gregg DO LAB - BLOOD ORDERABLES Performing Organization Address City/State/ZIP Code Phon e Number [place] [address] [phone] [place] [address] [address] [phone] Placenta Path Order and Indications (PLACENTA) (09/28/2020 8:13 PM MANAGER SCIENTIFIC) Component Value Ref Test Analysis Performed At [facility] Range Method Time Signature Copath Patient Name: RENA RESENDIZ Report MR#: [id number] Specimen #: [id number] Collected: 09/28/2020 Received: 10/01/2020 Reported: 10/02/2020 12:04 [...] of this testing was completed at the [facility], with the professional compo nent performed at the [facility], [address] [place] [address] ??[phone] ([phone]) CPT Codes: A: 19848-EN8 COLLECTION SITE: Client: [facility] Location: RHOR (R) Specimen Anatomical Collection Method Collection Time Receive d Time (Source) Location / / Volume Laterality Specimen from 09/28/2020 8:13 PM 10/01/19 21 8:32 placenta MANAGER SCIENTIFIC AM MANAGER SCIENTIFIC (specimen) Soledad XIAO Performing Organization Address City/State/ZIP Code Phon e Number [place] Treponema Abs w Reflex to RPR and Titer (09/28/2020 9:23 AM MANAGER SCIENTIFIC) [facility] gist Method Time Signature Treponema Nonreactive NR^Nonrea 09/28/2020 [facility] ctive 5:03 PM MANAGER SCIENTIFIC [facility] Comment: Methodology Change: Test performed on DiaSorin Liaison XL by Treponema pallidum Total Antibodies Assay as of . Specimen Anatomical Collection Method Collection Time Receive d Time (Source) Location / / Volume Laterality Blood specimen 09/28/2020 9:23 AM 021 9:24 (specimen) MANAGER SCIENTIFIC AM MANAGER SCIENTIFIC Soledad Jones CNM LAB - BLOOD ORDERABLES Performing Organization Address City/State/ZIP Code Phon e Number [address] [address] [facility] ABO/Rh type and screen (09/28/2020 9:23 AM MANAGER SCIENTIFIC) [facility] gist Method Time Signature ABO O 09/28/2020 [facility] 10:18 AM [facility] RH(D) Pos [facility] Antibody Neg [facility]/28/[facility] Screen 10:18 AM [facility] Test Valid [place] 09/28/2020 [facility] Only At [facility] 9:43 AM [facility] Specimen 10/01/2020 09/28/2020 [facility] Expires 9:43 AM [facility] Specimen Anatomical Collection Method Collection Time Receive d Time (Source) Location / / Volume Laterality Blood specimen 09/28/2020 9:23 AM 021 9:24 (specimen) MANAGER SCIENTIFIC AM MANAGER SCIENTIFIC Soledad Eugenejodie [facility] LAB - BLOOD BANK TEST ORDER Performing Organization Address City/State/ZIP Code Phon e Number M [facility] [address] [place], [place] [address] [phone] [facility] [address] [phone] Asymptomatic SARS-CoV-2 COVID-19 Virus (Coronavirus) by PCR (09/28/2020 8:40 AM MANAGER SCIENTIFIC) [facility] Method Time Signature SARS-CoV-2 Nasopharyngeal 09/28/2020 [place] Virus 8:51 AM [facility] Source SARS-CoV-2 NEGATIVE 09/28/2020 [place] PCR Result 9:13 AM [facility] Comment: SARS-CoV2 (COVID-19) RNA not de tected, presumed negative. SARS-CoV-2 PCR Comment (Note) 09/28/2020 9:13 A [facility] Comment: Testing was performed using the [...] or clinical pr esentation suggests COVID-19. M [facility] are certi fied under the Clinical Laboratory Improvement Amendments of 1988 (CLIA-88) as qualified to perform moderate and/or high complexity laboratory testin g. Specimen (Source) Anatomical Collection Method Collection Time Re ceived Time Location / / Volume Laterality Specimen from 09/28/2020 8:40 09/28/2020 nasopharyngeal AM MANAGER SCIENTIFIC 8:51 AM MANAGER SCIENTIFIC structure (specimen) Soledad Jones CNM LAB - MICRO GENERAL ORDERABL ES Performing Organization Address City/State/ZIP Code Phon e Number [place] [address] [address] [phone] documented in this encounter Visit Diagnoses Diagnosis [...] acetaminophen (TYLENOL) tablet Given 09/30/2020 12:04 PM MANAGER SCIENTIFIC 975 mg 975 mg 975 mg, Oral, EVERY 6 HOURS, First dose on Thu09/28/20 at 2330, Maximum acetaminophen dose from all sources = 75 mg/kg/day not to exceed 4 grams/day., Post-procedure Given 09/30/2020 5:42 AM MANAGER SCIENTIFIC 975 mg Given 09/30/2020 12:09 AM MANAGER SCIENTIFIC 975 mg azithromycin 500 mg (ZITHROMAX) in 0.9% New Bag 09/28/2020 7:29 PM MANAGER SCIENTIFIC 500 mg NaCl 250 mL intermittent infusion 500 mg STAT, 500 mg, Intravenous, PRE-OP/PRE-PROCEDURE, Starting on Thu09/28/20 at 1851, For 1 dose, Give no sooner than 60 minutes prior to incision., Indications: Rupture of Membranes AND/OR Labor prior to , Pre-procedure dextrose 5% in lactated ringers infusion New Bag 09/29/2020 2:00 AM MANAGER SCIENTIFIC 125 mL/hr at 125 mL/hr, Intravenous, CONTINUOUS, Subsequent IV at nurse's discretion. DC IV when tolerating fluids or at nurse's discretion & saline lock., Post-procedure, Starting on Thu09/28/20 at 2330, Until Thu09/30/20 at 1703 escitalopram (LEXAPRO) tablet 20 mg Given 09/29/2020 10:37 PM MANAGER SCIENTIFIC 20 mg 20 mg, Oral, DAILY, First dose on Thu09/29/20 at 0900 fentaNYL (PF) (SUBLIMAZE) injection 50-100 Given 09/28/2020 9:04 AM MANAGER SCIENTIFIC 100 mcg mcg 50-100 mcg, Intravenous, EVERY [...] 2 mcg/mL, New Syringe/Cartridge 09/28/2020 6:02 PM MANAGER SCIENTIFIC bupivacaine (MARCAINE) 0.125% in NS premix for [...] set., Routine New Syringe/Cartridge 09/28/2020 10:08 AM MANAGER SCIENTIFIC ibuprofen (ADVIL/MOTRIN) tablet 800 mg Given 09/30/2020 10:24 AM MANAGER SCIENTIFIC 800 mg 800 mg, Oral, EVERY 6 HOURS, First dose on 09/29/20 at 2100, Give with food., Post-procedure Given 09/30/2020 4:33 AM MANAGER SCIENTIFIC 800 mg Given 09/29/2020 10:36 PM MANAGER SCIENTIFIC 800 mg ketorolac (TORADOL) injection 30 mg Given 09/29/2020 4:01 PM MANAGER SCIENTIFIC 30 mg 30 mg, Intravenous, EVERY 6 [...] minutes. , Post-procedure Given 09/29/2020 9:41 AM MANAGER SCIENTIFIC 30 mg Given 09/29/2020 3:48 AM MANAGER SCIENTIFIC 30 mg lactated ringers BOLUS 1,000 mL New Bag 09/28/2020 9:06 AM MANAGER SCIENTIFIC 1,000 mLs 999 mL/hr Intravenous, 1,000 mL, ONCE PRN, IF patient to have epidural or intrathecal narcotics and NOT pre-eclamptic, Starting on Thu09/28/20 at 0832, For 1 dose, IV bolus must be initiated 15-30 min prior to epidural or intrathecal, then IV fluids per labor orders. Nurse may discontinue this order if duplicate. lactated ringers infusion New Bag 09/28/2020 6:04 PM MANAGER SCIENTIFIC 125 mL/hr at 125 mL/hr, Intravenous, CONTINUOUS, Starting on Thu09/28/20 at 0900, Until Thu09/28/20 at 2317 New Bag 09/28/2020 10:09 AM MANAGER SCIENTIFIC 125 mL/hr naloxone (NARCAN) injection 0.2 mg [...] injection 4 mg Given 09/28/2020 4:24 PM MANAGER SCIENTIFIC 4 mg 4 mg, Intravenous, EVERY 6 HOURS PRN, nausea, vomiting, Administer over 2-5 Minutes, Starting on Thu09/28/20 at 0832, If nausea not resolved in 15 minutes, notify provider before proceeding to prochlorperazine (COMPAZINE) [if ordered]. Irritant. For ordered IV doses 0.1-4 mg, give IV Push undiluted over 2-5 minutes. ondansetron (ZOFRAN) injection 4 mg Given 09/29/2020 12:56 AM MANAGER SCIENTIFIC 4 mg 4 mg, Intravenous, EVERY 6 HOURS PRN, nausea, vomiting, Administer over 2-5 Minutes, Starting on Thu09/28/20 at 2316, If nausea not resolved in 15 minutes, notify provider before proceeding to prochlorperazine (COMPAZINE) [if ordered]. Irritant. For ordered IV doses 0.1-4 mg, give IV Push undiluted over 2-5 minutes., Post-procedure oxyCODONE (ROXICODONE) tablet 5 mg Given 09/29/2020 10:36 PM MANAGER SCIENTIFIC 5 mg 5 mg, Oral, EVERY 4 HOURS PRN, other, pain control or improvement in physical function. Hold dose for analgesic side effects., Starting on Thu09/28/20 at 2316, Notify provider to assess for uncontrolled pain or analgesic side effects. Hold while on VP PRODUCT or with regular IV opioid dosing. Maximum total is 60 mg in 24 hours., Post-procedure Given 09/29/2020 1:04 PM MANAGER SCIENTIFIC 5 mg oxytocin (PITOCIN) 30 units in New Bag 09/28/2020 9:40 PM MANAGER SCIENTIFIC 100 mL/hr 100 mL/hr 500 mL 0.9% [...] mL/hr units in 500 mL 0.9% PM MANAGER SCIENTIFIC NaCl infusion 1-24 arslan-units/min (1-24 mL/hr), Intravenous, [...] ripening medication. Rate/Dose Change 09/28/2020 4:29 PM MANAGER SCIENTIFIC 5 arslan-units/min 5 mL/hr Rate/Dose Verify 09/28/2020 3:44 PM MANAGER SCIENTIFIC 4 arslan-units/min 4 mL/hr senna-docusate (SENOKOT-S/PERICOLACE) Given [...] loose stools., Post-procedure Given 09/29/2020 10:36 PM MANAGER SCIENTIFIC 1 tablet Given 09/29/2020 9:50 AM MANAGER SCIENTIFIC 1 tablet senna-docusate (SENOKOT-S/PERICOLACE) 8. 6-50 MG per tablet 2 tablet 2 tablet, Oral, 2 TIMES DAILY, First dos e on Thu09/28/20 at 2330, Hold for loose stools. Preferred agent for constipation related to op ioids. Hold for loose stools., Post-procedure simethicone (MYLICON) chewable tablet 80 mg Given 09/30/2020 3:27 AM MANAGER SCIENTIFIC 80 mg 80 mg, Oral, 4 TIMES DAILY PRN, other, gas, Starting on Thu09/28/20 at 2316, Chew., Post-procedure sodium chloride (PF) 0.9% PF flush 3 mL Given 09/29/2020 4:01 PM MANAGER SCIENTIFIC 3 mLs 3 mL, Intracatheter, EVERY 8 HOURS PRN, other, to lock peripheral IV dormant line, Starting on Thu09/28/20 at 2316, Post-procedure sodium citrate-citric acid (BICITRA) solution Given 7:29 PM MANAGER SCIENTIFIC 30 mLs 30 mL 30 mL, Oral, PRE-OP/PRE-PROCEDURE, Starting on Thu09/28/20 at 1850, For 1 dose, For gastric pH neutralization. GIVE WITHIN 45 minutes PRIOR TO SURGICAL PROCEDURE., Pre-procedure documented in this encounter Active and Recently Administered Medications Times are shown in MANAGER SCIENTIFIC. Scheduled Medication Order 09/28/2020 09/29/2020 09/30/2020 acetaminophen (TYLENOL) tablet 975 mg 00 56 (Not Given - Provider: Kathleen Hurley RN - Reason: Nausea)0613 (Given - Provider: Kathleen Hurley RN)1216 (Given - Provider: Elvie Turcios RN)1759 (Given - Provider: Kathleen Wright RN) 0009 (Given - Provider: Rhianna Washington, UNRULY)0542 (Given - Provider: Karol Hayden RN)1204 (Given - Provider: Lakeshia Mullen RN) 975 mg, Oral, EVERY 6 HOURS, First dose on Thu09/28/20 at 2330, Maximum acetaminophen dose from all sources = 75 mg/kg/day not to exceed 4 grams/day., Post-procedure azithromycin 500 mg (ZITHROMAX) in 0.9% NaCl 250 mL intermittent infusion 500 mg (COMPLETED) 1928 (New Bag - Provider: Maricruz Rogers, RN)2029 (Stopped - Provider: Maricruz Rogers, UNRULY) STAT, 500 mg, Intravenous, PRE-OP/PRE-KS OCEDURE, Starting 09/28/20 at 1851, For 1 dose, Give no sooner than 60 minutes prior to incision., Indications: Rupture of Membranes AND/OR Labor prior to , Pre-procedure escitalopram (LEXAPRO) tablet 20 mg 1216 (Not Given - Provider: Elvie Turcios RN - Reason: Patient/family refused - Comment: takes at night, dose rescheduled)2236 (Given - Provider: Kathleen Wright, UNRULY) 20 mg, Oral, DAILY, First dose on 09/29/20 at 0900 fentaNYL (SUBLIMAZE) 2 mcg/mL, bupivacai ne (MARCAINE) 0.125% in NS premix for PCEA (CANCELED) 1008 (New Syringe/Cartridge - Provider: Maria Del Rosario Steven RN)1620 (Canceled Entry - Provider: Maria Del Rosario Steven, UNRULY)180 (New Syringe/Cartridge - Provider: Maria Del Rosario Steven, UNRULY) PCEA dose (mL): 5, PCEA Lockout interval [...] 2 236 (Given - Provider: Kathleen Wright UNRULY) 0341 (Canceled Entry - Provider: Karol Hayden, RN)0433 (Given - Provider: Karol Hayden, RN)1024 (Given - Provider: Lakeshia Mullen, RN)1630 (Canceled Entry - Provider: Orders Generic Provider - Comment: Automatically canceled at discont 800 mg, Oral, EVERY 6 HOURS, First dose on 09/29/20 at 2100, Give with food., Post-procedure inue of medication o rder) ketorolac (TORADOL) injection 30 mg (COMPLETED) 034 (Given - Provider: Kathleen Hurley RN)0941 (Given - Provider: Maria Del Rosario Steven, RN)1601 (Given - Provider: Kathleen Wright, UNRULY) [...] 0950 (Given - Provider: Maria Del Rosario Steven, [...] Alternative - Provider: Maria Del Rosario Steven, UNRULY)2236 (See Alternative - Provider: Kathleen Wright, UNRULY) 0950 (See Alternative - Provider: Lakeshia Mullen, UNRULY) 2 tablet, Oral, 2 TIMES DAILY, First [...] minutes PRIOR TO SURGICAL PROCEDURE., Pre-procedure Tdap (wcrkdkl-wwhloakjvt-tidle pertussis) (ADACEL) injection 0.5 mL 1000 (Canceled Entry - Provider: Maria Del Rosario Steven, UNRULY - Comment: Tdap given 07/09/20) 0.5 mL, [...] - P rovider: Maria Del Rosario Steven, UNRULY)1804 (New Bag - Provider: Maria Del Rosario [...] (Rate/Dose Verify - Provider: Maria Del Rosario Setven, RN) 1-24 arslan-units/min (1-24 mL/hr), at 1- [...] at 100 mL/hr, Intravenous, CO NTINUOUS, Starting Thu09/28/20 at 2330, Anesthesia Provider to administer at [...] 10 mg, Rectal, DAILY PRN, constipation, Starting Thu09/30/20 at 0000, Start POD 2 Hold for loose stools., Post-procedure fentaNYL (PF) (SUBLIMAZE) injection 50-100 mcg (CANCEL ED) 09 (Given - Provider: Ambreen Medina RN)1947 (Auto Hold - Provider: Orders Generic Provider - Reason: Transfer to a procedural area)2051 (Unhold - Provider: Orders Generic Provider) 50-100 mcg, Intravenous, EVERY 1 HOUR [place] N, other, desired pain relief based on [...] Post-procedure lactated ringers BOLUS 1,000 mL (COMPLETED) 905 (New Bag - Provider: Maria Del Rosario [...] divided [facility]. Do NOT give if patient has a [...] For ordered IV doses 0.1-2mg give I VASC TECH. Give each 0.4mg over 15 seconds in [...] CONTINUOUS PRN, Starting Thu09/28/20 at 2316, Until Thu09/30/20 at 1703, Post-procedure ondansetron (ZOFRAN) injection 4 mg (CANCELED) 180 (C anceled Entry - Provider: Maria Del Rosario Steven RN)1947 (Auto Hold - Provider: Orders Generic Provider - Reason: Transfer to a procedural area)1951 (Given - Provider: Narinder Franklin MD)2051 (Unhold - Provider: Orders Generic Provider) 4 mg, Intravenous, EVERY 6 HOURS PRN, na usea, vomiting, Administer over 2-5 Minutes, Starting 09/28/20 at 0746, If nausea not resolved in [...] usea, vomiting, Administer over 2-5 Minutes, Starting 09/28/20 at 2316, If nausea not resolved in [...] or analgesic side effects. Hold while on VP PRODUCT or with regular IV opioid dosing. Maximum [...] 80 mg 0327 (Given - Provider: Karol Hayden, UNRULY) 80 mg, Oral, 4 TIMES DAILY PRN, [...] documented as of this encounter Care Teams Director Of Math Relationship Specialty Start Date End Date Blank Lemos MD PCP - General Internal Medicine 04/22/[address] [place] [address] KISHAN RENO [phone] Blank Lemos MD Assigned PCP 04/25/[address] [place] [address] KISHAN RENO [phone] Kathleen Lacy CNM Assigned OBGYN Provider 06/01/20 11/23/21 [address] [place], [place] [address] documented as of this encounter
--- OUTSIDE RECORDS SUMMARY | 2022-05-29 10:54 | XMS_ITS | Encounter Summary ---
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 documented as of this encounter Plan of Treatment Not on filedocumented as of this encounter Visit Diagnoses Not on filedocumented in this encounter Additional Health Concerns Assessment Noted Time PHQ-9 Depression Total Score: 5 12/06/2020 7:02 AM CDT documented as of this encounter Care Teams Banking Representative Relationship Specialty Start Date End Date Blank Lemos MD PCP - General Internal Medicine 04/22/[address] [place] [address] KISHAN RENO [phone] Blank Lemos MD Assigned PCP 04/25/[address] [place] [address] KISHAN RENO [phone] Kathleen Lacy CNM Assigned OBGYN Provider 06/01/20 11/23/21 [address] [place] [id number] documented as of this encounter
--- OUTSIDE RECORDS SUMMARY | 2022-05-29 10:54 | XMS_ITS | Encounter Summary ---
:1990 Author Organization [place] Address [address] [place] [address] Care Team Providers Name Role Phone Blank [...] documented as of this encounter Care Teams Gas Maker Relationship Specialty Start Date End Date Blank Lemos, PCP - General Internal Medicine 04/22/[address] [place] [address] KISHAN RENO [phone] Blank Lemos, Assigned PCP 04/25/[address] [place] [address] KISHAN RENO [phone] Anabell Shannon Personal Advocate & 10/25/20 Liaison (PAL) Sharita Frias, Assigned OBGYN Provider 01/25/22 [address] [place] [phone] documented as of this encounter
--- OUTSIDE RECORDS SUMMARY | 2022-05-29 10:54 | XMS_ITS | Encounter Summary ---
:1990 Author Organization [place] Address Count includes the [facility] [place] [address] Care Team Providers Name Role Phone Blank Lemos MD Primary Care Provider Blank Lemos MD Unavailable Anabell Shannon Unavailable Unavailable Sharita Frias MD Unavailable Reason for Referral Diagnostic Imaging Ultrasound (Routine) - Pending Review Specialty Diagnoses / Procedures Referred By Contact Refer red To Contact Diagnoses related condition, antepartum Carmencita Ortiz, Procedures [address] [address] Referral ID Status Reason Start Date Expiration Date Visits V isits Requested Authorized [id number] Pending 01/26/2022 01/26/2023 1 1 Review Electronically signed by Carmencita Ortiz [facility] at 02/05/2022 10:15 AM CDT Reason for Visit Diagnostic Imaging Ultrasound (Routine) - Pending Review Specialty Diagnoses / Procedures Referred By Contact Refer red To Contact Diagnoses related condition, antepartum Carmencita Ortiz, Procedures [address] [address] Referral ID Status Reason Start Date Expiration Date Visits V isits Requested Authorized [id number] Pending 01/26/2022 01/26/2023 1 1 Review Encounter Details Date Type Department Care Team Description 02/05/2022 Hospital Encounter [facility] Federico Ortiz APRN [facility] [address] [place] [address] related Maternal Aimee Aguilar MD [address] [place] [address] condition, Medicine Center antepartum [place] [address] [place] [address] Social History Tobacco Use Types [...] Procedure Name Priority Date/Time Associated Comments Diagnosis [facility] US COMPREHENSIVE Routine 02/05/2022 11:12 relate d Results for this SINGLE AM CDT condition, procedure are i n antepartum the results section. documented in this encounter Results [facility] US Comprehensive Single (02/05/2022 11:12 AM CDT) [...] ABREU Study Date: 02/05/2022 10:22am Pat. NO: [id number] Referring ??MD: COCO ORTIZ Site: [facility] Nurse: Dion mora RDMS : 1990 Age: 32 [...] lb 11 ? oz EFW by ?Hadlock ([id number]) Head / Face / Neck Biometry: Panama Hat Smearer ? 5.4 ? mm CM ?3.2 ? [...] vena cava. Inferior vena cava. 3-vessel view. 7-uclnmq-kemuhmq view. Cardiac position. ? Cardiac size. Cardiac [...] a comprehensive ultrasound. She is referred from [place] for BMI > 40. I discussed the findings on today's ultr asound with the patient. I reviewed the limitations of ultrasound both in detecting aneuploidy and structural abnormalities. Ultrasound, when views completed, can routinely dete ct 80-90% of structural abnormalities. She had low risk cell free DNA for genetic screening this . Follow-up is scheduled here in [facility] to reassess anatomy that was suboptimally seen today. Additional surveillance is recommended in the (growth US every 4-6 weeks, weekly BPP at 34 weeks) and I assume that this will be done in [place]. Return to primary provider for continued care. If you have questions regarding today's evaluation or if we can be of further service, please contact the [facility]. Procedure Note Aimee Aguilar MD - 02/05/2022Form atting of this note might be different from the original. Comprehensive Pat. Name:Noemi ABREU Date: 10:22am Pat. NO: [id number] MD:CARMENCITA ORTIZ Site:[place]:Dion Cruz RDMS :1990Age:32 INDICATION [...] 0 lb 11 oz EFW by Hadlock ([id number]) Head / Face / Neck Biometry: Panama Hat Smearer 5.4 mm CM 3.2 mm Nuchal fold [...] vena cava. Inferior vena cava. 3-vessel view. 5-pkconp-pfebmjx view. Cardiac position. Cardiac size. Cardiac rhythm. [...] a comprehensive ultrasound. She is referred from [place] for BMI > 40. I discussed the findings on today's ultr asound with the patient. I reviewed the limitations of ultrasound both in detecting aneuploidy and structural abnormalities. Ultrasound, when views completed, can routinely dete ct 80-90% of structural abnormalities. She had low risk cell free DNA for genetic screening this . Follow-up is scheduled here in [facility] to reassess anatomy that was suboptimally seen today. Additional surveillance is recommended in the (growth US every 4-6 weeks, weekly BPP at 34 weeks) and I assume that this will be done in [place]. Return to primary provider for continued care. [...] cervix appears long and closed. Carmencita Ortiz ARCH SUPPORT MAKER [employer] US ORDERABLES documented in this encounter Visit Diagnoses Diagnosis related condition, antepartum documented in this encounter Additional Health Concerns Assessment Noted Time PHQ-9 Depression Total Score: 2 11/06/2020 3:02 PM CDT documented as of this encounter Care Teams Authorization Representative Relationship Specialty Start Date End Date Blank Lemos, PCP - General Internal Medicine [facility] KISHAN RENO [phone] Blank Lemos, Assigned PCP 04/25/18 [facility] KISHAN RENO [phone] Anabell Shannon Personal Advocate & 10/25/20 Liaison (PAL) Sharita Frias, Assigned OBGYN Provider 01/25/22 [address] [place], [place] [phone] documented as of this encounter
--- OUTSIDE RECORDS SUMMARY | 2022-05-29 10:54 | XMS_ITS | Encounter Summary ---
:1990 Author Organization [facility] Address [address] [place] [address] Care Team Providers Name Role Phone Blank [...] documented as of this encounter Care Teams Cement And Concrete Plant Worker Relationship Specialty Start Date End Date Blank Lemos, PCP - General Internal Medicine 04/22/[address] [place] [address] KISHAN RENO [phone] Blank Lemos, Assigned PCP [facility] KISHAN RENO [address] Kathleen Lacy CNM Assigned OBGYN Provider 06/01/20 11/23/21 [address] [place] [phone] Anabell Shannon Personal Advocate & 10/25/20 Liaison (PAL) documented as of this encounter
--- OUTSIDE RECORDS SUMMARY | 2022-05-29 10:54 | XMS_ITS | Encounter Summary ---
:1990 Author Organization [place] Address [facility] 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 Method Time Signature HPV Source [facility] 11/06/2020 [place] 2:[address] [facility] HPV 16 DNA Negative NEG^Negat 11/12/2020 [facility] yakelin 2:05 PM CDT [facility] HPV 18 DNA Negative NEG^Negat 11/12/2020 [facility] 2:05 PM CDT [facility] Other HR HPV Positive (A) NEG^Negat 11/12/2020 [facility] 2:05 PM CDT [facility] Final This patient's sample is pos itive for other HR HPV DNA (types 31, 33, 35, 39, 45, 51, 52, 11/12/2020 [facility] 56, 58, 59, 66 or 68), not H PV 16 or HPV 18 DNA. This result requires clinical correlation 2:05 PM CDT [facility] with concurrent cytology findings. [facility] Comment: This test was developed and its performa nce characteristics determined by the [facility], Molecular Diagnostics Laboratory. It has [...] Cervical Cells 11/06/2020 2:5 0 PM CDT [facility] Specimen Anatomical Collection Method Collection Time Receive d Time (Source) Location / / Volume Laterality Cervical Cells 11/06/2020 2:54 PM 021 2:55 CDT PM CDT Sharita Salinas MD LAB - BLOOD ORDERABLES Performing Organization Address City/State/ZIP Code Phon e Number [facility] [address] [place] [address] [facility] [address] [place] [address] [facility] Pap imaged thin layer diagnostic with HPV (select HPV order below) (11/06/2020 2:50 PM CDT) Component Value Ref Test Analysis Performed At Patholo gist Range Method Time Signature PAP NIL COPATH Copath Report COPATH Patient Name: RENA RESENDIZ MR#: [id number] Specimen #: [id number] Collected: 11/06/2020 Received: 11/07/2020 Reported: 11/08/2020 15:09 [...] or other cancer s. COLLECTION SITE: Client: ??[facility] Location: [place]ES[place] (Sandra) The technical component of this testing was completed at the [facility], with the professional compo nent performed at the [facility], [address] [place] [address], [place] [address] ([phone]) Specimen (Source) Anatomical Collection Method Collection Time [...] as of this encounter Care Teams Tank Pumper Relationship Specialty Start Date End Date Blank Lemos, PCP - General Internal Medicine [facility]/22[facility] KISHAN RENO [phone] Blank Lemos, Assigned PCP 04/25/18 [facility] KISHAN RENO [address] Kathleen Lacy CNM Assigned OBGYN Provider 06/01/20 11/23/21 [address] [place] [place] [address] Anabell Shannon Personal Advocate & 10/25/20 Liaison (PAL) documented as of this encounter
--- OUTSIDE RECORDS SUMMARY | 2022-05-29 10:54 | XMS_ITS | Encounter Summary ---
:1990 Author Organization [place] Address [facility] [place] [address] Care Team Providers Name Role Phone Blank Lemos MD Primary Care Provider Blank Lemos MD Unavailable Anabell Shannon Unavailable Unavailable Sharita Frias MD Unavailable Reason for Referral Diagnostic Imaging Ultrasound (Routine) - Pending Review Specialty Diagnoses / Procedures Referred By Contact Refer red To Contact Diagnoses abnormality affecting management of mother, antepartum, single or unspecified fetus Aimee Aguilar MD Procedures [facility] US Comprehensive Single F/U [address] [place] [address] Referral ID Status Reason Start Date Expiration Date Visits V isits Requested Authorized [id number] Pending 02/05/2022 02/05/2023 1 1 Review Reason for Visit Diagnostic Imaging Ultrasound (Routine) - Pending Review Specialty Diagnoses / Procedures Referred By Contact Refer red To Contact Diagnoses abnormality affecting management of mother, antepartum, single or unspecified fetus Aimee Aguilar MD Procedures [facility] US Comprehensive Single F/U [address] [place], [place] [address] Referral ID Status Reason Start Date Expiration Date Visits V isits Requested Authorized [id number] Pending 02/05/2022 02/05/2023 1 1 Review Encounter Details Date Type Department Care Team Description 03/05/2022 [facility] Aimee Fet al abnormality Maternal MD Sean affecting management Medicine Center [address] of mother, [address] antepartum, single [address] [place], [place] or un specified fetus [address] [address] [place], [place] [phone] [address] (Work) [phone] Social History Tobacco Use Types Packs/Day Years [...] Procedure Name Priority Date/Time Associated Comments Diagnosis [facility] US COMPREHENSIVE Routine 03/05/2022 9:49 AM abnormal ity Results for this SINGLE F/U CDT affecting procedure are i n management of the results mother, antepartum, section. single or unspecified fetus documented in this encounter Results [facility] US Comprehensive Single F/U (03/05/2022 9:49 AM [...] ABREU Study Date: 03/05/2022 9:05am Pat. NO: [id number] Referring ??MD: COCO ORTIZ Site: [facility] Casing Inspector: Hood Mcwilliams RDMS : 1990 Age: 32 [...] 1 lb 5 ?oz EFW by ?Hadlock ([id number]) Head / Face / Neck Biometry: Slot Service Specialist ? 4.9 ? mm CM ?4.8 ? [...] documented previously: Heart / Thorax ?RVOT view. 8-emfjzz-dghwltx view. ? Diaphragm. Spine ?Sacral spine. Gender: [...] are anticipat ed to be done in [place]. We recommend serial growth every 4-6 weeks [...] Pat. Name:Noemi ABREU Date: 9:05am Pat. NO: [id number] MD:CARMENCITA ORTIZ [facility] Fleming :1990Age:32 INDICATION BMI 40 METHOD Transabdominal [...] 1 lb 5 oz EFW by Hadlock ([id number]) Head / Face / Neck Biometry: Slot Service Specialist 4.9 mm CM 4.8 mm Nasal bone [...] documented previously: Heart / Thorax RVOT view. 3-agdgwy-khdci ea view. Diaphragm. Spine Sacral spine. Gender: [...] are anticipat ed to be done in [place]. We recommend serial growth every 4-6 weeks [...] volume appeared no rmal. Aimee Aguilar MD [facility] US ORDERABLES documented in this encounter Visit Diagnoses Diagnosis abnormality affecting management o f mother, antepartum, single or unspecified fetus documented in this encounter Additional Health Concerns Assessment Noted Time PHQ-9 Depression Total Score: 2 11/06/2020 3:02 PM CDT documented as of this encounter Care Teams Coffee Weigher Relationship Specialty Start Date End Date Blank Lemos, PCP - General Internal Medicine 04/22/18 [facility] KISHAN RENO [phone] Blank Lemos, Assigned PCP 04/25/18 [facility] KISHAN RENO [phone] Anabell Shannon Personal Advocate & 10/25/20 Liaison (PAL) Sharita Frias, Assigned OBGYN Provider 01/25/22 [address] [place], [place] [phone] documented as of this encounter
--- OUTSIDE RECORDS SUMMARY | 2022-05-29 10:54 | XMS_ITS | Encounter Summary ---
:1990 Author Organization [place] Address [address] [facility] [place] [address] Care Team Providers Name Role Phone Blank Lemos MD Primary Care Provider Blank Lemos MD Unavailable Kathleen Lacy CNM Unavailable Anabell Shannon Unavailable Unavailable Encounter Details Date Type Department Care Team Description 10/03/2020 Medical Correspondence [facility] Scan, EPISODE SUMMARY Health Info Mgmt Non-Provider REPORT [facility]E [facility] Srs [address] [place] [address] Social History Tobacco Use Types [...] documented as of this encounter Care Teams Wind Field Manager Relationship Specialty Start Date End Date Blank Lemos, PCP - General Internal Medicine 04/22/[address] [place] [address] KISHAN RENO [address] Blank Lemos, Assigned PCP 04/25/[address] [place] [address] KISHAN RENO [address] Kathleen Lacy CNM Assigned OBGYN Provider 06/01/20 11/23/21 [place] [address] Anabell Shannon Personal Advocate & 10/25/20 Liaison (PAL) documented as of this encounter
--- OUTSIDE RECORDS SUMMARY | 2022-05-29 10:54 | XMS_ITS | Encounter Summary ---
:1990 Author Organization [place] Address [address] [place] [address]. [place] [address] Care Team Providers Name Role Phone Blank Lemos MD Primary Care Provider Blank Lemos MD Unavailable Kathleen Lacy CNM Unavailable Reason for Visit Auth/Cert Specialty Diagnoses / Procedures Referred By Contact Refer red To Contact knitting machine fixer head Diagnoses Indication for care in labor or delivery Indication for care in labor or delivery Rh Procedures L AND D [address] [place], [place] [address] Phone: Fax: Referral ID Status Reason Start Date Expiration Date Visits Requ ested Visits Authorized [id number] 1 1 Encounter Details Date Type Department Care Team Description 09/28/[address] [facility] Narinder Franklin PeriOp Services MD Vinicio [address] [place] [address] ANESTHESIA [phone] [facility] [address] [place], [place] [address] (Wo rk) Anesthesia Record Procedure Summary Procedure Name Responsible Anesthesia Start Anesthesia Stop Time Anesthesiologist Time SECTION Narinder Franklin MD 09/28/2019462054 (Abdomen) Events Date Time Event Comment 09/28/20201946 An Start 1946 An Start Data 1950 An Induction 1950 MD Present 1951 MD Present 1952 MD Present 2009 Baby Delivered 2020 MD Present 2042 Present 2045 an stop data 2054 An [...] G; 09/28/20 0904 by 09/30/20 1205 by Glenda Malave Wetschka, Maria, RN Seavey, Cy nthia A, Left; Lower [...] with No / Unsure 09/28/2020 8:47 AM VENEER DRIER TAILER someone who was confirmed or suspected to [...] Last vitals prior to Anesthesia Care Transfer: COMMUNITY SUPPORT ASSOCIATE VITALS 09/28/2020 2016 - 09/28/2020211509/28/2020 Pulse: 105 SpO2: 99 % Electronically Signed By: Narinder Franklin MD October 10, 2020 8:11 AM ER DRIER TAILER Anesthesia Postprocedure Evaluation - Narinder Franklin MD [...] Last vitals prior to Anesthesia Care Transfer: COMMUNITY SUPPORT ASSOCIATE VITALS 09/28/20202015 - 09/28/2020211509/28/2020 Pulse: 105 SpO2: 99 % Electronically Signed By: Narinder Franklin MD October 10, 2020 8:10 AM ER DRIER TAILER Anesthesia Preprocedure Evaluation - Narinder Franklin MD [...] found, no interventions. Pt thinks this happened [phone] ??? TONSILLECTOMY Allergies Allergen Reactions ??? Doxycycline [...] and realistic alternatives discussed. Questions answered and patient/medical field representative(s) expressed understanding. - Discussed with: Patient Postoperative Care Pain management: IV analgesics, Neuraxial analgesia. PONV prophylaxis: Ondansetron (or other 5HT-3), Dexamethasone or Solumedrol Comments: Narinder Franklin MD ER DRIER TAILER documented in this encounter Miscellaneous Notes Anesthesia [...] (Last set prior to Anesthesia Care Transfer) COMMUNITY SUPPORT ASSOCIATE VITALS 09/28/20202015 - 09/28/2020205409/28/2020 Pulse: 105 SpO2: 99 % Electronically Signed By: Annalise Lux APRN CRNA September 28, 2020 8:55 PM ER DRIER TAILER documented in this encounter Plan of Treatment Not on filedocumented as of this encounter Visit Diagnoses Not on filedocumented in this encounter Administered Medications Inactive Administered Medications - up to 3 most recent administrations Medication Order MAR Action Action Date Dose Rate Site ceFAZolin (ANCEF) intermittent Given 09/28/2020 7:53 PM VENEER DRIER TAILER 2 g infusion 2 g in 100 mL dextrose PRE-MIX Routine, PRN, Starting on Thu09/28/20 at 195, Anesthesia Intra-op dexamethasone (DECADRON) injection Given 09/28/2020 7:52 PM VENEER DRIER TAILER 4 mg PRN, Administer over 1 Minutes, Starting on Thu09/28/20 at 1951, Anesthesia Intra-op glycopyrrolate (ROBINUL) injection Given 09/28/2020 7:52 PM VENEER DRIER TAILER 0.1 mg PRN, Administer over 1-2 Minutes, Starting on Thu09/28/20 at 1951, Anesthesia Intra-op ketorolac (TORADOL) injection Given 09/28/2020 8:44 PM VENEER DRIER TAILER 30 mg PRN, Administer over 2 Minutes, Starting on Thu09/28/20 at 2044, Anesthesia Intra-op lidocaine 2%-EPINEPHrine 1:200,000 injec tion Given 09/28/2020 7:50 PM VENEER DRIER TAILER 15 mLs EPIDURAL, PRN, Starting on Thu09/28/20 at 1950, Anesthesia Intra-op morphine (PF) (DURAMORPH) injection Given 09/28/2020 8:13 PM VENEER DRIER TAILER 3 mg Intrathecal, PRN, Administer over 4-5 Minutes, Starting on Thu09/28/20 at 2013, Anesthesia Intra-op ondansetron (ZOFRAN) injection 4 mg Given 09/28/2020 7:52 PM VENEER DRIER TAILER 4 mg 4 mg, Intravenous, EVERY 6 HOURS PRN, nausea, vomiting, Administer over 2-5 Minutes, Starting on Thu09/28/20 at 0746, If nausea not resolved in 15 minutes, notify provider before proceeding to prochlorperazine (COMPAZINE) [if ordered]. Irritant. For ordered IV doses 0.1-4 mg, give IV Push undiluted over 2-5 minutes. oxytocin (PITOCIN) 30 units in 500 mL 0.9% Given 09/28/2020 8:11 PM VENEER DRIER TAILER 500 mLs NaCl infusion Intravenous, PRN, Starting on Thu09/28/20 at 2011, Anesthesia Intra-op phenylephrine (ZULMA-SYNEPHRINE) New Bag 09/28/2020 7:53 PM 50 mcg/m in 30 mL/hr injection VENEER DRIER TAILER Intravenous, CONTINUOUS PRN, Starting on Thu09/28/20 at 1953, Anesthesia Intra-op documented in this encounter Additional Health Concerns Assessment Noted Time PHQ-9 Depression Total Score: 5 12/06/2020 7:02 AM CDT documented as of this encounter Care Teams Candle Making Supervisor Relationship Specialty Start Date End Date Blank Lemos MD PCP - General Internal Medicine 04/22/[address] [facility] KISHAN RENO [phone] Blank Lemos MD Assigned PCP 04/25/[address] [facility] KISHAN RENO [phone] Kathleen Lacy, YARELI Assigned OBGYN Provider 06/01/20 11/23/21 [address] [place], [place] [phone] documented as of this encounter
--- OUTSIDE RECORDS SUMMARY | 2022-05-29 10:54 | XMS_ITS | Encounter Summary ---
:1990 Author Organization [place] Address [facility] [place] [address] Care Team Providers Name Role Phone Blank Lemos MD Primary Care Provider Blank Lemos MD Unavailable Anabell Shannon Unavailable Unavailable Sharita Frias MD Unavailable Reason for Referral Diagnostic Imaging Ultrasound (Routine) - Pending Review Specialty Diagnoses / Procedures Referred By Contact Refer red To Contact Diagnoses related condition, antepartum Carmencita Ortiz, Procedures [facility] MANAGER ENT [facility] [address] [place] [address] Referral ID Status Reason Start Date Expiration Date Visits V isits Requested Authorized [id number] Pending 01/26/2022 01/26/2023 1 1 Review Consultation (Routine) - Pending Review Specialty Diagnoses / Procedures Referred By Contact Refer red To Contact Diagnoses related condition, antepartum Carmencita Ortiz APRN CNP [address] [address] Referral ID Status Reason Start Date Expiration Date Visits V isits Requested Authorized [id number] Pending 01/26/2022 01/26/2023 1 1 Review Encounter Details Date Type Department Care Team Description 01/26/2022 Transcribe Orders [facility] LuisCaitlin graciela related Maternal Carmencita Carrington APRN condition , Medicine Center PARK SERVICES SPECIALIST antepartum (Primary [facility] Dx) [address] [facility] [address] [place] [address] [phone] Social History Tobacco Use Types Packs/Day Years [...] ABREU Study Date: 02/05/2022 10:22am Pat. NO: [id number] Referring ??: COCO ORTIZ Site: [place] Delivery Agent: Dion mora RDMS : 1990 Age: 32 [...] lb 11 ? oz EFW by ?Hadlock ([id number]) Head / Face / Neck Biometry: Swine Extension Field Specialist ? 5.4 ? mm CM ?3.2 ? [...] vena cava. Inferior vena cava. 3-vessel view. 4-jvsmsi-komwlbj view. Cardiac position. ? Cardiac size. Cardiac [...] a comprehensive ultrasound. She is referred from [place] for BMI > 40. I discussed the findings on today's ultr asound with the patient. I reviewed the limitations of ultrasound both in detecting aneuploidy and structural abnormalities. Ultrasound, when views completed, can routinely dete ct 80-90% of structural abnormalities. She had low risk cell free DNA for genetic screening this . [facility] that was suboptimally seen today. Additional surveillance is recommended in the (growth US every 4-6 weeks, weekly BPP at 34 weeks) and I assume that this will be done in [place]. Return to primary provider for continued care. If you have questions regarding today's evaluation or if we can be of further service, please contact the Maternal- Medicine Center. Procedure Note Aimee Aguilar MD - 02/05/2022Form atting of this note might be different from the original. Comprehensive Pat. Name:Noemi ABREU Date: 10:22am Pat. NO: [id number] :CARMENCITA ORTIZ [facility]Dion Cruz RDMS :1990Age:32 INDICATION BMI 40 METHOD [...] 1d Hadlock Humerus 31.0 mm 20w 2d [facility] Weight Calculation: EFW 322 g 58% Hadlock EFW (lb,oz) 0 lb 11 oz EFW by Hadlock ([id number]) Head / Face / Neck Biometry: Swine Extension Field Specialist 5.4 mm CM 3.2 mm Nuchal fold [...] vena cava. Inferior vena cava. 3-vessel view. 4-iletbm-atnppwv view. Cardiac position. Cardiac size. Cardiac rhythm. [...] a comprehensive ultrasound. She is referred from [place] for BMI > 40. I discussed the findings on today's ultr asound with the patient. I reviewed the limitations of ultrasound both in detecting aneuploidy and structural abnormalities. Ultrasound, when views completed, can routinely dete ct 80-90% of structural abnormalities. She had low risk cell free DNA for genetic screening this . Follow-up is scheduled here in three wee ks to reassess anatomy that was suboptimally seen today. Additional surveillance is recommended in the (growth US every 4-6 weeks, weekly BPP at 34 weeks) and I assume that this will be done in [place]. Return to primary provider for continued care. [...] appears long and closed. Carmencita Ortiz APRN PARK SERVICES SPECIALIST IMG M US ORDERABLES documented in this encounter Visit Diagnoses Diagnosis related condition, antepartum - Primary related condition, antepartum documented in this encounter Additional Health Concerns Assessment Noted Time PHQ-9 Depression Total Score: 2 11/06/2020 3:02 PM CDT documented as of this encounter Care Teams Lacquer Pin Press Operator Relationship Specialty Start Date End Date Blank Lemos, PCP - General Internal Medicine 04/22/[address] [facility] [place] [address] Blank Lemos, Assigned PCP 04/25/[address] [facility] [place] [phone] Anabell Shannon Personal Advocate & 10/25/20 Liaison (PAL) Sharita Frias, Assigned OBGYN Provider 01/25/22 [address] [place] [address] documented as of this encounter
--- OUTSIDE RECORDS SUMMARY | 2022-05-29 10:54 | XMS_ITS | Encounter Summary ---
:1990 Author Organization [place] Address [address] [place] [address]. [place] [address] Care Team Providers Name Role Phone Blank Lemos MD Primary Care Provider Blank Lemos MD Unavailable Kathleen Lacy CNM Unavailable Anabell Shannon Unavailable Unavailable Reason for Visit Reason Comments Care Delivered a girl weighing 7 lbs 15 oz on 09/28/2020 via Contraception Would like the mini pill Encounter Details Date Type Department Care Team Description [facility]/05[facility]2020 [facility] MD Blu follow-up (Primary [place] [address] Dx) [address] [place], [place] [address] [address] [place], [place] [phone] [address] (Work) [phone] Social History Tobacco Use Types Packs/Day Years [...] Body Mass Index 41.1 09/28/2020 8:52 AM AGRICULTURAL EQUIPMENT SALES MANAGER documented in this encounter Progress Notes Sharita [...] documented as of this encounter Care Teams Shipboard Intelligence Analyst Relationship Specialty Start Date End Date Blank Lemos, PCP - General Internal Medicine 04/22/[address] [place] [address] [place] [address] Blank Lemos, Assigned PCP 04/25/18 [facility] [place] [address] Kathleen Lacy CNM Assigned OBGYN Provider 06/01/20 11/23/21 [place] [address] Anabell Shannon Personal Advocate & 10/25/20 Liaison (PAL) documented as of this encounter
--- OUTSIDE RECORDS SUMMARY | 2022-05-29 10:54 | XMS_ITS | Clinical Summary ---
:1990 Author Organization [place] Address [address] [place] [address] Care Team Providers Name Role Phone Blank [...] High-risk , third trimester 08/07/2020 Overview: Clinic/Hospital: [facility] Partner Name: Micah Ultrasound predicts sex: female Childrens names/ages: n/a Previous labor experiences: n/a Waterbirth (interest, declined, ineligib le): n/a Level of education/occupation: currently unemployed d/t COVID Pertinent History: Bipolar, obesity clas s II PP contraception: minipill Hx PPD/Depression/Anxiety: Bipolar with anxiety & depression Peds provider: Probably BETHEL Edge pe ds Plans for labor pain management: [...] +HR HPV, not 16/18. Plan colp 10/07/18 [place]- No lesions seen, no Bx raisa en. Plan 1 yr co-test 02/24/20 ASCUS pap, + HR HPV (not 16 or 1 8). Pt about 10 weeks . Plan colp without biopsies due by 05/26/20. 03/05/20 CCT tracking. 03/06/20 pt notified 04/09/20 colp visually MIL I-II. Plan: caesar p . EDC 09/27/20 11/06/20 [facility], +HR HPV, not 16/18. Plan Co lp bef 02/06/21 11/13/20 Left msg and MyChart result lette r- read by pt 01/08/21 Reminder MyChart 02/05/21 [place] not done. Tracking updated for 6 mo [...] 03/05/2022 Office Visit Maternal and Aimee Aguilar ab normality Medicine MD Sean affecting manag ement of mother, antepartum, sin gle or unspecified fetus (Primary Dx) 03/05/2022 Hospital Encounter Radiology. Aimee Aguilar ab normality MD Sean affecting manag ement of mother, antepartum, sin gle or unspecified fetus 03/05/2022 Travel from Last 3 Months Immunizations Name Administration [...] 8 Quit : 06/24/2019 Smokeless Tobacco: Never Tobacco Cessation: Counseling Given: No Alcohol Use [...] PM CDT Pulse 76 09/30/2020 9:40 AM PILER Temperature 36.8 ??C (98.3 ??F) 10/18/2020 2:16 PM PILER Respiratory Rate 18 09/30/2020 9:40 AM PILER Oxygen Saturation 98% 09/29/2020 9:00 AM PILER Inhaled Oxygen Concentration - - Weight 104.8 kg (231 lb) 11/06/2020 2:30 PM CDT Height 160 cm (5' 3) 11/06/2020 2:30 PM CDT Body Mass Index 40.92 11/06/2020 2:30 PM CDT Plan of Treatment Health Maintenance Due Date Last Done Comments ADVANCE CARE PLANNING 1990 HEPATITIS B IMMUNIZATION 1990 (1 of 3 - 3-dose series) HEPATITIS C SCREENING 01/15/2006 ANNUAL REVIEW OF HM ORDERS 01/04/2021 01/05/2020 COLPOSCOPY 02/06/2021 04/09/2020 GABRIEL ASSESSMENT 08/27/2021 08/27/2020, 02/02/2020, 12/08/2019, Additional history exists COVID-19 Vaccine (4 - 09/20/2021 07/26/2021, 12/08/2020, Booster for Pfizer series) 11/10/2020 YEARLY PREVENTIVE VISIT 12/27/2021 12/27/2020, 11/06/2020, 09/22/2018, Additional history exists MATERNAL SCREENING 01/03/2022 OBGCT (OB) 03/07/2022 07/09/2020 REPEAT ANTIBODY SCREEN 04/04/2022 09/28/2020, 02/20/2020 (OB) INFLUENZA VACCINE (#1) 2022 09/22/2018 (Declined) GROUP B STREP SCREENING 05/30/2022 09/03/2020 HPV TEST 12/25/2022 11/06/2020, 02/24/2020, 09/22/2018 PAP 12/25/2022 12/25/2021, 11/06/2020, 04/09/2020, Additional history exists DTAP/TDAP/TD IMMUNIZATION 07/09/2030 07/09/2020, 04/10/2016 , (5 - Td or Tdap) 10/08/2008, Additional history exists MIGRAINE ACTION PLAN Completed 09/22/2018 HIV SCREENING Completed 02/20/2020, 09/22/2018 (Declined) HPV FOLLOW-UP Discontinued 11/06/2020, 02/24/2020, 09/22/2018 PAP FOLLOW-UP Discontinued 12/25/2021, 11/06/2020, 04/09/2020, Additional history exists IPV IMMUNIZATION Aged Out No longer eligi [...] Procedure Name Priority Date/Time Associated Comments Diagnosis [facility] US COMPREHENSIVE Routine 03/05/2022 9:49 AM abnormal ity Results for this SINGLE F/U CDT affecting procedure are i n management of the results mother, antepartum, section. single or unspecified fetus from Last 3 Months Results [facility] US Comprehensive Single F/U (03/05/2022 9:49 AM [...] ABREU Study Date: 03/05/2022 9:05am Pat. NO: [id number] Referring ??MD: COCO ORTIZ Site: [facility] Children'S Literature Professor: Hood Mcwilliams RDMS : 1990 Age: 32 [...] 1 lb 5 ?oz EFW by ?Hadlock ([id number]) Head / Face / Neck Biometry: Licensed Marine Engineer ? 4.9 ? mm CM ?4.8 ? [...] documented previously: Heart / Thorax ?RVOT view. 0-euyvgp-vhjrqpn view. ? Diaphragm. Spine ?Sacral spine. Gender: [...] are anticipat ed to be done in [place]. We recommend serial growth every 4-6 weeks and weekly BPPs should be considered at 34 weeks for pre- BMI 40 Return to primary provider for continued care. If you have questions regarding today's evaluation or if we can be of further service, please contact the Maternal- Medicine Center. Procedure Note Aieme Aguilar MD - 03/05/2022Form atting of this note might be different from the original. Comp Follow Up Pat. Name:Noemi ABREU Date: 9:05am Pat. NO: [id number] MD:CARMENCITA ORTIZ [facility] Fleming :1990Age:32 INDICATION BMI 40 METHOD Transabdominal [...] 1 lb 5 oz EFW by Hadlock ([id number]-YS-[id number]-FL) Head / Face / Neck Biometry: Licensed Marine Engineer 4.9 mm CM 4.8 mm Nasal bone [...] documented previously: Heart / Thorax RVOT view. 3-obwhoe-demje ea view. Diaphragm. Spine Sacral spine. Gender: [...] are anticipat ed to be done in [place]. We recommend serial growth every 4-6 weeks [...] volume appeared no rmal. Aimee Aguilar MD [facility] US ORDERABLES from Last 3 Months Insurance Payer Benefit Plan / Subscriber ID Effective Phone Address T ype Group Dates WORK COMP ELYSSA WINSTON [id number] 2015-Pre [phone]MIN[address]RATORS sent 000 [id number] [place] [address] [facility] [id number] 2021-Pres [phone] HEALTHCARE COMMERCIAL ent [id number] [place] [address] Rena Abreu Worker's Self 1990 [phone] M Compensation 4 (Home) [address] [place] [id number] Rena Abreu Behavioral Self 1990 [phone] [id number] [address]EL M [address] (Home) [place] [address] Advance Directives For more information, please contact: [phone] Latest Code Status on File Code Status Date Activated Date Inactivated Comments Full Code 09/29/2020 9:48 AM 09/30/2020 5:08 PM All basic an d advanced life-sustaining interventions are performed as jc ropriate Question Answer Comments Code status determined by: Discussion with patient/ legal de cision maker Code Status History Code Status Date Activated Date Inactivated Comments Full Code 09/28/2020 7:18 PM 09/28/2020 11:17 PM All basic a nd advanced life-sustaining interventions are performed as jc ropriate Question Answer Comments Code status determined by: Discussion with patient/ legal de cision maker Care Teams Sandstone Splitter Relationship Specialty Start Date End Date Blank Lemos, PCP - General Internal Medicine 04/22/18 MD [facility] [place] [phone] Blank Lemos, Assigned PCP 04/25/18 MD [facility] [place] [phone] Anabell Shannon Personal Advocate & 10/25/20 Liaison (PAL) Sharita Frias, Assigned OBGYN Provider 01/25/22 [address] [place] [address]
--- OUTSIDE RECORDS SUMMARY | 2022-05-29 10:55 | XMS_ITS | Encounter Summary ---
:1990 Author Organization [place] Address [facility] [place] [address] Care Team Providers Name Role Phone Blank [...] Weeks Follow Up [address] [place] [address] Referral ID Status Reason Start Date Expiration Date Visits Requ ested Visits Authorized [id number] Closed 08/20/2020 08/20/2021 1 1 Encounter Details Date Type Department Care Team Description 09/03/2020 Ancillary [facility] Robert, Encounter for Procedure [facility] [place] YARELI Rowe supervision of [address] normal f irst [address] in third [address] [place], [place] [phone] Social History Tobacco Use Types Packs/Day Years [...] with No / Unsure 09/03/2020 1:45 PM SMOOTH STUCCO RESURFACER someone who was confirmed or suspected to have Coronavirus / COVID-19? documented as of this encounter Plan of Treatment Not on filedocumented as of this encounter Procedures Procedure Name Priority Date/Time Associated Diagnosis Comme nts US OB FOLLOW UP >14 Routine 09/03/2020 1:47 PM Encounter for R esults for this WEEKS SMOOTH STUCCO RESURFACER supervision of procedure are in normal first the results in third section. trimester documented in this encounter Results US OB >14 Weeks Follow Up (09/03/2020 1:47 PM SMOOTH STUCCO RESURFACER) Anatomical Region Laterality Modality Abdomen/Pelvis Ultrasound Specimen (Source) Anatomical Location Collection Method / Collectio n Time Received Time / Laterality Volume Impressions 09/03/2020 4:32 PM SMOOTH STUCCO RESURFACER ? [place] Gestation. ?? presentation: Cephalic Placenta: [...] No gross anomalies observed. Kori Booker MD [facility]stetrics and Gynecology [facility] Narrative 09/03/2020 4:32 PM SMOOTH STUCCO RESURFACER ealth [facility] Obstetrics and Gynecology ?? ULTRASOUND - OB FOLLOW UP > 14 Weeks- Tr ansabdominal ?? Referring Provider: MARLENY Garcia ?? INDICATIONS FOR ULTRASOUND: OB History: Present Conditions: third tr-screen (EFW ) ?? CLINICAL INFORMATION ?? LMP: ??14 December 27 ??- sure EDC: ??Sep 30 ?EGA: ??36w 4d ?? Previous US: Yes ?? EDC: Sep 30 correspond ?? Soledad Knightjodie DOWNS IMG US ORDERABLES documented in this encounter Visit Diagnoses Diagnosis Encounter for supervision of normal firs t in third trimester Supervision of normal first documented in this encounter Additional Health Concerns Assessment Noted Time PHQ-9 Depression Total Score: 5 12/06/2020 7:02 AM CDT documented as of this encounter Care Teams Integration Director Relationship Specialty Start Date End Date Blank Lemos MD PCP - General Internal Medicine 04/22/[address] [place] [address] [place] [address] Blank Lemos MD Assigned PCP 04/25/[address] [place] [address] [place] [phone] aKthleen Lacy CNM Assigned OBGYN Provider 06/01/20 11/23/21 Cipriano [place] [address] documented as of this encounter
--- OUTSIDE RECORDS SUMMARY | 2022-05-29 10:55 | XMS_ITS | Encounter Summary ---
:1990 Author Organization [place] Address [address] [facility] [place] [address] Care Team Providers Name Role Phone Blank Lemos MD Primary Care Provider Blank Lemos MD Unavailable Kathleen Lacy CNM Unavailable Reason for Visit Reason Comments Care 39 weeks and 4 days Encounter Details Date Type Department Care Team Description 09/24/2020 Office [facility] Rand Kam h-risk , third trimester (Primary Dx); Visit [facility] GINNY Granados CNM Uterine size-date discrepancy in third t rimester; [place] [address] Excessive weight gain affect ing [address] [place], [place] [address] [address] [place], [place] [phone] [address] (Work) [phone] Social History Tobacco Use Types Packs/Day Years [...] with No / Unsure 09/24/2020 2:11 PM BRICK WASHER someone who was confirmed or suspected to have Coronavirus / COVID-19? documented as of this encounter Last Filed Vital Signs Vital Sign Reading Time Taken Comments Blood Pressure 128/86 09/24/2020 2:13 PM BRICK WASHER Pulse - - Temperature - - Respiratory Rate - - Oxygen Saturation - - Inhaled Oxygen Concentration - - Weight 112.9 kg (249 lb) 09/24/2020 2:13 PM BRICK WASHER Height - - Body Mass Index 44.11 04/09/2020 1:36 PM CDT documented in this encounter Progress Notes Rand Kam APRN CNM - 09/24/2020 2:15 PM CST Rena Turner presents to clinic alone at 39w4d for a routine appointment. She reports she is feeling well and has no concerns. Normal movement. Denies bleeding, LOF, or regular, painful contractions. [place] like labor might be starting Thursday and [...] RTC in 1 week, sooner if problems. K WASHER documented in this encounter Nursing Notes Gonzalez [...] smoking habits. Pt. has never smoked. +FM K WASHER documented in this encounter Plan of Treatment [...] documented as of this encounter Care Teams Bi Data Architect Relationship Specialty Start Date End Date Blank Lemos MD PCP - General Internal Medicine 04/22/[address] [place] [address] [place] [address] Blank Lemos MD Assigned PCP 04/25/[address] [place] [address] [place] [address] Kathleen Lacy CNM Assigned OBGYN Provider 06/01/20 11/23/21 [address] [place] [address] documented as of this encounter
--- OUTSIDE RECORDS SUMMARY | 2022-05-29 10:55 | XMS_ITS | Encounter Summary ---
:1990 Author Organization [place] Address [address] [place] [address] Care Team Providers Name Role Phone Blank [...] with No / Unsure 08/06/2020 1:53 PM TOMBSTONE SETTER someone who was confirmed or suspected to have Coronavirus / COVID-19? documented as of this encounter Plan of Treatment Not on filedocumented as of this encounter Visit Diagnoses Not on filedocumented in this encounter Additional Health Concerns Assessment Noted Time PHQ-9 Depression Total Score: 10 02/02/2020 8:23 AM CD T documented as of this encounter Care Teams Early Childhood Associate Relationship Specialty Start Date End Date Blank Lemos MD PCP - General Internal Medicine 04/22/[address] [place] [address] [place] [phone] Blank Lemos MD Assigned PCP 04/25/[address] [place] [address] [place] [address] Kathleen Lacy CNM Assigned OBGYN Provider 06/01/20 11/23/21 Cipriano [place] [address] documented as of this encounter
--- OUTSIDE RECORDS SUMMARY | 2022-05-29 10:55 | XMS_ITS | Encounter Summary ---
:1990 Author Organization [place] Address [address] [place] [address] Care Team Providers Name Role Phone Blank [...] with No / Unsure 07/09/2020 7:18 PM FACTORY MAINTENANCE MANAGER someone who was confirmed or suspected to have Coronavirus / COVID-19? documented as of this encounter Plan of Treatment Not on filedocumented as of this encounter Visit Diagnoses Not on filedocumented in this encounter Additional Health Concerns Assessment Noted Time PHQ-9 Depression Total Score: 10 02/02/2020 8:23 AM CD T documented as of this encounter Care Teams Gaming Manager Relationship Specialty Start Date End Date Blank Lemos MD PCP - General Internal Medicine 04/22/[address] [place] [address] [place] [phone] Blank Lemos MD Assigned PCP 04/25/[address] [place] [address] [place] [phone] Kathleen Lacy CNM Assigned OBGYN Provider 06/01/20 11/23/21 [place] [address] documented as of this encounter
--- OUTSIDE RECORDS SUMMARY | 2022-05-29 10:55 | XMS_ITS | Encounter Summary ---
:1990 Author Organization [place] Address [facility] [place] [address] Care Team Providers Name Role Phone Blank Lemos MD Primary Care Provider Blank Lemos MD Unavailable Kathleen Lacy CNM Unavailable Reason for Visit Reason Onset Date Comments Refill Request 07/08/2020 escitalopram (LEXAPR O) 20 MG tablet Encounter Details Date Type Department Care Team Description 07/08/2020 Refill [facility] Blank Lemos, Re fill Request Clinic Dev [place] (escitalopram (LEXAPRO) [address] [facility] 20 MG tablet) [facility] [address] [place] [address] [place] [address] [phone] Social History Tobacco Use Types Packs/Day Years [...] with No / Unsure 07/09/2020 7:18 PM RADIATION PROTECTION SPECIALIST someone who was confirmed or suspected to [...] medication. Patient verbalized understanding. Oliva Craft RN ATION PROTECTION SPECIALIST Telephone Encounter - Blank Lemos MD - 07/10/2020 11:56 AM RADIATION PROTECTION SPECIALIST Refill x 3 months - she is due for mental health follow up this month or Aug - ok if virtual Blank Lemos MD Internal Medicine/Pediatrics [facility] ATION PROTECTION SPECIALIST Telephone Encounter - Margarita Lowry RN - 07/10/2020 10:55 AM CST Routing refill request to provider for review/approval because: Positive test on 02/01/20. Margarita Lowry RN on 07/10/2020 at 10:56 AM ATION PROTECTION SPECIALIST documented in this encounter Plan of Treatment Not on filedocumented as of this encounter Visit Diagnoses Diagnosis Generalized anxiety disorder Bipolar I disorder (H) Bipolar I disorder, most recent episode (or current) unspecified documented in this encounter Additional Health Concerns Assessment Noted Time PHQ-9 Depression Total Score: 10 02/02/2020 8:23 AM CD T documented as of this encounter Care Teams Biogeographer Relationship Specialty Start Date End Date Blank Lemos MD PCP - General Internal Medicine 04/22/[address] [place] [address] [place] [address] Blank Lemos MD Assigned PCP 04/25/[address] [place] [address] [place] [address] Kathleen Lacy CNM Assigned OBGYN Provider 06/01/20 11/23/21 [address] Rivera [place], [place] [address] documented as of this encounter
--- OUTSIDE RECORDS SUMMARY | 2022-05-29 10:55 | XMS_ITS | Encounter Summary ---
:1990 Author Organization [place] Address [address] [place] [address] Care Team Providers Name Role Phone Blank [...] with No / Unsure 08/27/2020 1:55 PM SUPERVISOR SHIP MAINTENANCE SERVICES someone who was confirmed or suspected to have Coronavirus / COVID-19? documented as of this encounter Plan of Treatment Not on filedocumented as of this encounter Visit Diagnoses Not on filedocumented in this encounter Additional Health Concerns Assessment Noted Time PHQ-9 Depression Total Score: 5 12/06/2020 7:02 AM CDT documented as of this encounter Care Teams Director Sales Relationship Specialty Start Date End Date Blank Lemos MD PCP - General Internal Medicine 04/22/[address] [place] [address] KISHAN RENO [phone] Blank Lemos MD Assigned PCP 04/25/[address] [place] [address] KISHAN RENO [phone] Kathleen Lacy CNM Assigned OBGYN Provider 06/01/20 11/23/21 [address] [place] [id number] documented as of this encounter
--- OUTSIDE RECORDS SUMMARY | 2022-05-29 10:55 | XMS_ITS | Encounter Summary ---
:1990 Author Organization [place] Address [address] [place] [address] Care Team Providers Name Role Phone Blank [...] with No / Unsure 09/10/2020 8:39 AM HIGH RAW SUGAR BOILER someone who was confirmed or suspected to have Coronavirus / COVID-19? documented as of this encounter Plan of Treatment Not on filedocumented as of this encounter Visit Diagnoses Not on filedocumented in this encounter Additional Health Concerns Assessment Noted Time PHQ-9 Depression Total Score: 5 12/06/2020 7:02 AM CDT documented as of this encounter Care Teams Spar Machine Operator Helper Relationship Specialty Start Date End Date Blank Lemos MD PCP - General Internal Medicine 04/22/[address] [place] [address] KISHAN RENO [phone] Blank Lemos MD Assigned PCP 04/25/[address] [place] [address] KISHAN RENO [phone] Kathleen Lacy CNM Assigned OBGYN Provider 06/01/20 11/23/21 [address] [place] [id number] documented as of this encounter
--- OUTSIDE RECORDS SUMMARY | 2022-05-29 10:55 | XMS_ITS | Encounter Summary ---
:1990 Author Organization [place] Address [facility] hospital[facility] [place] [address] Care Team Providers Name Role Phone Blank Lemos MD Primary Care Provider Blank Lemos MD Unavailable Kathleen Lacy CNM Unavailable Reason for Visit Reason Onset Date Comments Palpitations 07/09/2020 Encounter Details Date Type Department Care Team Description 07/09/2020 Telephone [facility] Soledad sampson CNM Palpitations Clinic [place] [address] [place] [address] [address] [place] [address] [phone] Social History Tobacco Use Types Packs/Day Years [...] with No / Unsure 07/09/2020 8:25 AM HAND CLOTH EXAMINER someone who was confirmed or suspected to have Coronavirus / COVID-19? documented as of this encounter Miscellaneous Notes Telephone Encounter - Soledad Jones CNM - 07/09/2020 6:27 PM CST Pt paged ribbon lapper tender YARELI with reports of very fast and irregular heart beat for the past hour. Reportsit started spontaneously and hasn't subsided despite rest. Pt audibly short of breath while talking over the phone although able to speak in full sentences. Instructed to go to ER for evaluation. Pt voiced understanding. Britney Jones CNM 07/09/2020 6:28 PM CLOTH EXAMINER documented in this encounter Plan of Treatment Not on filedocumented as of this encounter Visit Diagnoses Not on filedocumented in this encounter Additional Health Concerns Assessment Noted Time PHQ-9 Depression Total Score: 10 02/02/2020 8:23 AM CD T documented as of this encounter Care Teams Choral Teacher Relationship Specialty Start Date End Date Blank Lemos MD PCP - General Internal Medicine 04/22/18 [address] [facility] K[place] RENO [address] Blank Lemos MD Assigned PCP 04/25/18 [address] [facility] K[place]AN RENO [address] Kathleen Lacy CNM Assigned OBGYN Provider 06/01/20 11/23/21 [address] [place] [address] documented as of this encounter
--- OUTSIDE RECORDS SUMMARY | 2022-05-29 10:55 | XMS_ITS | Encounter Summary ---
:1990 Author Organization [place] Address [facility] [place] [address] Care Team Providers Name Role Phone Blank Lemos MD Primary Care Provider Blank Lemos MD Unavailable Kathleen Lacy CNM Unavailable Reason for Visit Reason Comments Care Encounter Details Date Type Department Care Team Description 09/10/2020 Office [facility] Kathleen Lacy, High -risk , third trimester (Primary Dx); [facility] CNM Anxiety during in third trimes ter, antepartum [place] [address] [place], [place] [address] [address] [place], [place] [phone] [address] (Work) [phone] Social History Tobacco Use Types Packs/Day Years [...] with No / Unsure 09/10/2020 8:39 AM CLIENT SUCCESS SPECIALIST someone who was confirmed or suspected to have Coronavirus / COVID-19? documented as of this encounter Last Filed Vital Signs Vital Sign Reading Time Taken Comments Blood Pressure 120/84 09/10/2020 8:42 AM CLIENT SUCCESS SPECIALIST Pulse - - Temperature - - Respiratory Rate - - Oxygen Saturation - - Inhaled Oxygen Concentration - - Weight 113.9 kg (251 lb) 09/10/2020 8:42 AM CLIENT SUCCESS SPECIALIST Height - - Body Mass Index 44.46 [...] swelling in is very normal) If your historic preservationist feels that you are developing preeclampsia, you will have lab tests drawn and will be monitored very closely. If you are experiencing anyof these symptoms, Call Tracy Plascencia [phone] NT SUCCESS SPECIALIST documented in this encounter Progress Notes Kathleen [...] clinic 1 weeks Kathleen Lacy APRN, CNM NT SUCCESS SPECIALIST documented in this encounter Nursing Notes Gonzalez [...] smoking habits. Pt. has never smoked. +FM NT SUCCESS SPECIALIST documented in this encounter Plan of Treatment Not on filedocumented as of this encounter Visit Diagnoses Diagnosis High-risk , third trimester - P rimary Anxiety during in third trimes ter, antepartum documented in this encounter Additional Health Concerns Assessment Noted Time PHQ-9 Depression Total Score: 5 12/06/2020 7:02 AM CDT documented as of this encounter Care Teams Tube Coater Relationship Specialty Start Date End Date Blank Lemos MD PCP - General Internal Medicine 04/22/[address] [place] [address] KISHAN RENO [phone] Blank Lemos MD Assigned PCP 04/25/[address] [place] [address] KISHAN RENO [phone] Kathleen Lacy CNM Assigned OBGYN Provider 06/01/20 11/23/21 [place] [address] documented as of this encounter
--- OUTSIDE RECORDS SUMMARY | 2022-05-29 10:55 | XMS_ITS | Encounter Summary ---
:1990 Author Organization [place] Address [address] [place] [address] Care Team Providers Name Role Phone Blank [...] with No / Unsure 09/24/2020 2:11 PM SILVERING APPLICATOR someone who was confirmed or suspected to [...] MD PCP - General Internal Medicine 04/22/[address] [place] [address] KISHAN RENO [phone] Blank Lemos MD Assigned PCP 04/25/[address] [place] [address] KISHAN RENO [phone] Kathleen Lacy CNM Assigned OBGYN Provider 06/01/20 11/23/21 [address] [place] [id number] documented as of this encounter
--- OUTSIDE RECORDS SUMMARY | 2022-05-29 10:55 | XMS_ITS | Encounter Summary ---
:1990 Author Organization [place] Address [facility] [place] [address] Care Team Providers Name Role Phone Blank Lemos MD Primary Care Provider Blank Lemos MD Unavailable Kathleen Lacy CNRadha Unavailable Anabell Shannon Unavailable Unavailable Reason for Visit Reason Comments Video Visit [phone] Depression Encounter Details Date Type Department Care Team Description 08/27/2020 Virtual Visit [facility] Blank Lemos anxiety disorder; Clinic Dev Camp MD Bipolar I disorder (H) [address] [place] [address] [facility] [address] KISHAN MÉNDEZ [address] KISHAN Méndez [address] Social History Tobacco Use [...] with No / Unsure 10/18/2020 2:11 PM SET UP OPERATOR TOOL someone who was confirmed or suspected to [...] Take care, Blank Lemos MD Internal Medicine/Pediatrics [facility] UP OPERATOR TOOL documented in this encounter Progress Notes Blank Lemos MD - 08/27/2020 1:55 PM CST Rena is a 30 year old who is being evaluated via a billable video visit. How would you like to obtain your AVS? MyChart If the video visit is dropped, the invitation should be resent by: Text to cell phone: [phone] Will anyone else be joining your video [...] (20 mg) by mouth daily Patient Instructions Winston Chase, Nice to see you! I'm glad you are feeling good - good luck with the final weeks of your . I've refilled the lexapro for 6 months and then we will get a physical scheduled for you. Take care, Blank Lemos MD Internal Medicine/Pediatrics [facility] Return in about 3 months (around 11/25/2020) for Routine preventive, with me, in person. Blank Lemos MD [facility] is a 30 year old who [...] (pt. Location): Home Distant Location (provider location): [facility] Platform used for Video Visit: Doximity UP OPERATOR TOOL documented in this encounter Nursing Notes Nahed Carrillo MA - 08/27/2020 1:55 PM CST Left message for patient to return call to schedule follow up physical in November/December. VITALY ALEJANDRO MA on 08/27/2020 at 2:27 PM UP OPERATOR TOOL documented in this encounter Plan of Treatment Not on filedocumented as of this encounter Visit Diagnoses Diagnosis Generalized anxiety disorder Bipolar I disorder (H) Bipolar I disorder, most recent episode (or current) unspecified documented in this encounter Additional Health Concerns Assessment Noted Time PHQ-9 Depression Total Score: 5 12/06/2020 7:02 AM CDT documented as of this encounter Care Teams School Age Lead Teacher Relationship Specialty Start Date End Date Blank Lemos, PCP - General Internal Medicine 04/22/[address] [place] [address] KISHAN RENO [phone] Blank Lemos, Assigned [facility] K[place]AN RENO [address] Kathleen Lacy CNM Assigned OBGYN Provider 06/01/20 11/23/21 [place] [address] Anabell Shannon Personal Advocate & 10/25/20 Liaison (PAL) documented as of this encounter
--- OUTSIDE RECORDS SUMMARY | 2022-05-29 10:55 | XMS_ITS | Encounter Summary ---
:1990 Author Organization [place] Address [address] [place] [address] Care Team Providers Name Role Phone Blank Lemos MD Primary Care Provider Blank Lemos MD Unavailable Kathleen Lacy CNRadha Unavailable Reason for Visit Reason Comments Care 38w 4d, review restrictions at hospital Encounter Details Date Type Department Care Team Description 09/17/2020 Office [facility] , [facility] YARELI Rowe third trimester [place] [address] (Primary Dx) [address] [place], [place] [address] [address] [place], [place] [phone] [address] (Work) [phone] Social History Tobacco Use Types Packs/Day Years [...] with No / Unsure 09/17/2020 1:55 PM BENCH ASSEMBLER someone who was confirmed or suspected to have Coronavirus / COVID-19? documented as of this encounter Last Filed Vital Signs Vital Sign Reading Time Taken Comments Blood Pressure 124/76 09/17/2020 1:59 PM BENCH ASSEMBLER Pulse - - Temperature - - Respiratory Rate - - Oxygen Saturation - - Inhaled Oxygen Concentration - - Weight 113.4 kg (250 lb) 09/17/2020 1:59 PM BENCH ASSEMBLER Height - - Body Mass Index 44.29 [...] H. Octavia Jones CNM 09/17/2020 2:15 PM H ASSEMBLER documented in this encounter Nursing Notes Luz [...] HM Due: NONE Luz Maria Abreu CMA H ASSEMBLER documented in this encounter Plan of Treatment Not on filedocumented as of this encounter Visit Diagnoses Diagnosis High-risk , third trimester - P rimary documented in this encounter Additional Health Concerns Assessment Noted Time PHQ-9 Depression Total Score: 5 12/06/2020 7:02 AM CDT documented as of this encounter Care Teams Assembly Loader Relationship Specialty Start Date End Date Blank Lemos MD PCP - General Internal Medicine 04/22/[address] [place] [address] KISHAN RENO [phone] Blank Lemos MD Assigned PCP 04/25/[address] [place] [address] KISHAN RENO [address] Kathleen Lacy, YARELI Assigned OBGYN Provider 06/01/20 11/23/21 [address] [place] [address] documented as of this encounter
--- OUTSIDE RECORDS SUMMARY | 2022-05-29 10:55 | XMS_ITS | Encounter Summary ---
:1990 Author Organization [place] Address [address] [place] [address]. [place] [address] Care Team Providers Name Role Phone Blank Lemos MD Primary Care Provider Blank Lemos MD Unavailable Kathleen Lacy CNM Unavailable Reason for Visit Auth/Cert Specialty Diagnoses / Procedures Referred By Contact Refer red To Contact automotive upholsterer Diagnoses Indication for care in labor or delivery Indication for care in labor or delivery Rh Procedures L AND D [address] [place], [place] [address] Phone: Fax: Referral ID Status Reason Start Date Expiration Date Visits Requ ested Visits Authorized [id number] 1 1 Encounter Details Date Type Department Care Team Description 09/28/2020 Anesthesia Event [facility] Lawrence Kimble DO [facility] ANESTHESIA [address] [place], [place] [address] Birthplace Lorenzo Hernandez MD [facility] ANESTHESIA [address] [place], [place] [phone] [place] [phone] Anesthesia Record Procedure Summary Procedure Name Responsible Anesthesia Start Time Anesthesia Stop Time Anesthesiologist LABOR ANALGESIA Lawrence Kimble DO 09/28/20 0932 09/28/20 09 46 Events Date Time Event Comment 09/28/2020 0932 An Start 0943 MD Present 0946 An Stop Electronically s igned [...] Lawrence Kimble DO Maas, Tracy M, APRN PLATER PRINTED CIRCUIT BOARD PANELS documented in this encounter Social History Tobacco [...] with No / Unsure 09/28/2020 8:47 AM INSTRUMENT REPAIR SPECIALIST someone who was confirmed or suspected [...] Kimble DO September 29, 2020 10:19 AM RUMENT REPAIR SPECIALIST Anesthesia Procedure Notes - Lawrence Kimble DO - 09/28/2020 10:26 AM INSTRUMENT REPAIR SPECIALIST Associated Order(s): Epidural Block Pre-Procedure Staff - [...] frequently monitored at necessary intervals. Sandra Kimble RUMENT REPAIR SPECIALIST Anesthesia Preprocedure Evaluation - Lawrence Kimble DO [...] found, no interventions. Pt thinks this happened [id number] ??? TONSILLECTOMY Allergies Allergen Reactions ??? Doxycycline [...] and realistic alternatives discussed. Questions answered and patient/territory sales representative(s) expressed understanding. - Discussed with: Patient Postoperative Care Comments: BMI-44 Lawrence Kimble DO RUMENT REPAIR SPECIALIST documented in this encounter Miscellaneous Notes Addendum Note - Sydnie Frost - 10/01/2020 8:11 AM CST Addendum created 10/01/20 0811 by Sydnie Frost Charge Capture section accepted RUMENT REPAIR SPECIALIST Addendum Note - Lawrence Kimble DO - 09/29/2020 10:19 AM CST Addendum created 09/29/20 1019 by Lawrence Kimble DO Clinical Note Signed RUMENT REPAIR SPECIALIST documented in this encounter Plan of Treatment Not on filedocumented as of this encounter Procedures Procedure Name Priority Date/Time Associated Diagnosis Comme nts ANE EPIDURAL BLOCK Routine 09/28/2020 10:26 AM Re sults for this INSTRUMENT REPAIR SPECIALIST procedure are i n the results section. documented in this encounter Results FV AN EPIDURAL DUMMY PERFORMABLE (09/28/2020 10:26 AM INSTRUMENT REPAIR SPECIALIST) Narrative Lawrence Kimble DO - 09/28/2020 10:26 AM INSTRUMENT REPAIR SPECIALIST Lawrence Kimble DO ? 09/28/2020 10:28 AM [...] and frequently monitored at necessary intervals. R Kimble Lawrence Kimble DO [place] ANESTHESIA documented in this encounter Visit Diagnoses Not on filedocumented in this encounter Additional Health Concerns Assessment Noted Time PHQ-9 Depression Total Score: 5 12/06/2020 7:02 AM CDT documented as of this encounter Care Teams Identifier Horse Relationship Specialty Start Date End Date Blank Lemos MD PCP - General Internal Medicine 04/22/18 [address] [facility] KISHAN RENO [phone] Blank Lemos MD Assigned PCP 04/25/18 [address] [facility] KISHAN RENO [address] Kathleen aLcy CNM Assigned OBGYN Provider 06/01/20 11/23/21 [address] [place] [address] documented as of this encounter
--- OUTSIDE RECORDS SUMMARY | 2022-05-29 10:55 | XMS_ITS | Encounter Summary ---
:1990 Author Organization [place] Address [address] [place] [address] Care Team Providers Name Role Phone Blank [...] with No / Unsure 09/28/2020 8:47 AM CAMPGROUND HAND someone who was confirmed or suspected to have Coronavirus / COVID-19? documented as of this encounter Plan of Treatment Not on filedocumented as of this encounter Visit Diagnoses Not on filedocumented in this encounter Additional Health Concerns Assessment Noted Time PHQ-9 Depression Total Score: 5 12/06/2020 7:02 AM CDT documented as of this encounter Care Teams Dot Compliance Specialist Relationship Specialty Start Date End Date Blank Lemos MD PCP - General Internal Medicine 04/22/[address] [place] [address] KISHAN RENO [phone] Blank Lemos MD Assigned PCP 04/25/[address] [place] [address] KISHAN RENO [phone] Kathleen Lacy CNM Assigned OBGYN Provider 06/01/20 11/23/21 [address] [place] [id number] documented as of this encounter
--- OUTSIDE RECORDS SUMMARY | 2022-05-29 10:55 | XMS_ITS | Encounter Summary ---
:1990 Author Organization [place] Address [address] [place] [address] Care Team Providers Name Role Phone Blank [...] with No / Unsure 08/20/2020 1:54 PM FACING SLITTER someone who was confirmed or suspected to have Coronavirus / COVID-19? documented as of this encounter Plan of Treatment Not on filedocumented as of this encounter Visit Diagnoses Not on filedocumented in this encounter Additional Health Concerns Assessment Noted Time PHQ-9 Depression Total Score: 10 02/02/2020 8:23 AM CD T documented as of this encounter Care Teams Upper Stitcher Relationship Specialty Start Date End Date Blank Lemos MD PCP - General Internal Medicine 04/22/[address] [place] [address] KISHAN RENO [phone] Blank Lemos MD Assigned PCP 04/25/[address] [place] [address] KISHAN RENO [phone] Kathleen Lacy CNM Assigned OBGYN Provider 06/01/20 11/23/21 [address] [place] [address] documented as of this encounter
--- OUTSIDE RECORDS SUMMARY | 2022-05-29 10:55 | XMS_ITS | Encounter Summary ---
:1990 Author Organization [place] Address [address] [place] [address] Care Team Providers Name Role Phone Blank [...] with No / Unsure 09/17/2020 1:55 PM SPECIAL EDUCATION DIRECTOR someone who was confirmed or suspected to have Coronavirus / COVID-19? documented as of this encounter Plan of Treatment Not on filedocumented as of this encounter Visit Diagnoses Not on filedocumented in this encounter Additional Health Concerns Assessment Noted Time PHQ-9 Depression Total Score: 5 12/06/2020 7:02 AM CDT documented as of this encounter Care Teams Pegger Relationship Specialty Start Date End Date Blank Lemos MD PCP - General Internal Medicine 04/22/[address] [place] [address] KISHAN RENO [phone] Blank Lemos MD Assigned PCP 04/25/[address] [place] [address] KISHAN RENO [phone] Kathleen Lacy CNM Assigned OBGYN Provider 06/01/20 11/23/21 [address] [place] [address] documented as of this encounter
--- OUTSIDE RECORDS SUMMARY | 2022-05-29 10:55 | XMS_ITS | Encounter Summary ---
:1990 Author Organization [place] Address [address] [place] [address] Care Team Providers Name Role Phone Blank [...] with No / Unsure 06/18/2020 2:11 PM GOLF RANGE ATTENDANT someone who was confirmed or suspected to have Coronavirus / COVID-19? documented as of this encounter Plan of Treatment Not on filedocumented as of this encounter Visit Diagnoses Not on filedocumented in this encounter Additional Health Concerns Assessment Noted Time PHQ-9 Depression Total Score: 10 02/02/2020 8:23 AM CD T documented as of this encounter Care Teams Chip Tuner Relationship Specialty Start Date End Date Blank Lemos MD PCP - General Internal Medicine 04/22/[address] [place] [address] KISHAN RENO [phone] Blank Lemos MD Assigned PCP 04/25/[address] [place] [address] KISHAN RENO [address] Kathleen Lacy CNM Assigned OBGYN Provider 06/01/20 11/23/21 [address] [place] [address] documented as of this encounter
--- OUTSIDE RECORDS SUMMARY | 2022-05-29 10:55 | XMS_ITS | Encounter Summary ---
:1990 Author Organization [place] Address [address] [place] [address] Care Team Providers Name Role Phone Blank [...] with No / Unsure 07/23/2020 1:56 PM BATTERY BUILDER someone who was confirmed or suspected to have Coronavirus / COVID-19? documented as of this encounter Plan of Treatment Not on filedocumented as of this encounter Visit Diagnoses Not on filedocumented in this encounter Additional Health Concerns Assessment Noted Time PHQ-9 Depression Total Score: 10 02/02/2020 8:23 AM CD T documented as of this encounter Care Teams Construction Helper Relationship Specialty Start Date End Date Blank Lemos MD PCP - General Internal Medicine 04/22/[address] [place] [address] KISHAN RENO [phone] Blank Lemos MD Assigned PCP 04/25/[address] [place] [address] KISHAN RENO [phone] Kathleen Lacy CNM Assigned OBGYN Provider 06/01/20 11/23/21 [address] [place] [address] documented as of this encounter
--- OUTSIDE RECORDS SUMMARY | 2022-05-29 10:55 | XMS_ITS | Encounter Summary ---
:1990 Author Organization [place] Address [address] [place] [address] Care Team Providers Name Role Phone Blank Lemos MD Primary Care Provider Blank Lemos MD Unavailable Kathleen LacyM Unavailable Reason for Referral (Routine) - Closed Specialty Diagnoses / Procedures Referred By Contact Refer red To Contact Diagnoses Encounter for supervision of normal first , third trimester Kathy Ingram Procedures TDAP VACCINE (Adacel, Boostrix) [[id number]] GINNY SantosM [id number] [address] Referral ID Status Reason Start Date Expiration Date Visits Requ ested Visits Authorized [id number] Closed 07/09/2020 07/09/2021 1 1 R RESOURCE SPECIALIST Reason for Visit Reason Comments Care 28w 4d GCT and tdap today, q uestions on COVID restrictions, back pain worsening x1-2wks, and hearb urn-vomits with Tums Encounter Details Date Type Department Care Team Description 07/09/2020 Office [facility] Kathy Davis for supervision of normal first , third trimester (Primary Dx); [facility] Dianna Benitez in third trimester [place] COMPTROLLERZeb DOWNS [address] [address] [facility] Breana CHOUDHARY, [address] [place] [id number] Social History Tobacco Use Types Packs/Day [...] with No / Unsure 07/09/2020 8:25 AM WATER RESOURCE SPECIALIST someone who was confirmed or suspected to have Coronavirus / COVID-19? documented as of this encounter Last Filed Vital Signs Vital Sign Reading Time Taken Comments Blood Pressure 124/82 07/09/2020 8:31 AM WATER RESOURCE SPECIALIST Pulse - - Temperature - - Respiratory Rate - - Oxygen Saturation - - Inhaled Oxygen Concentration - - Weight 108.4 kg (239 lb) 07/09/2020 8:31 AM WATER RESOURCE SPECIALIST Height - - Body Mass Index 42.34 [...] since the end of the first trimester. R RESOURCE SPECIALIST documented in this encounter Progress Notes Kathy [...] RPR and Titer TDAP VACCINE (Adacel, Boostrix) [[id number]] sucralfate (CARAFATE) 1 GM tablet 2. Heartburn [...] clinic in 2 weeks. Kathy Ingram DNP, GINNY, CNM R RESOURCE SPECIALIST documented in this encounter Nursing Notes Luz [...] HM Due: NONE Luz Maria Abreu CMA R RESOURCE SPECIALIST documented in this encounter Plan of Treatment Not on filedocumented as of this encounter Procedures Procedure Name Priority Date/Time Associated Diagnosis Comme nts TREPONEMA ABS W Routine 07/09/2020 9:29 AM Encounter for Resul ts for this REFLEX TO RPR AND WATER RESOURCE SPECIALIST supervision of ole abarca are in TITER normal first the results , third section. trimester GLUCOSE TOLERANCE Routine 07/09/2020 9:29 AM Encounter for Res ults for this GEST SCREEN 1 HOUR WATER RESOURCE SPECIALIST supervision of procedu re are in normal first the results , third section. trimester CBC WITH PLATELETS Routine 07/09/2020 9:29 AM Encounter for Re sults for this WATER RESOURCE SPECIALIST supervision of procedure are in normal first the results , third section. trimester documented in this encounter Results Treponema Abs w Reflex to RPR and Titer (07/09/2020 9:29 AM WATER RESOURCE SPECIALIST) [facility] Method Time Signature Treponema Nonreactive NR^Nonrea 07/10/2020 [facility] ctive 10:07 AM WATER RESOURCE SPECIALIST [facility] Comment: Methodology Change: Test performed on DiaFarecastrin Liaison XL by Treponema pallidum Total Antibodies Assay as of . Specimen Anatomical Collection Method Collection Time Receive d Time (Source) Location / / Volume Laterality Blood specimen 07/09/2020 9:29 AM 020 9:30 (specimen) WATER RESOURCE SPECIALIST AM WATER RESOURCE SPECIALIST Kathy Ingram APRN, CNM LAB - BLOOD [place] Performing Organization Address City/State/ZIP Code Phon e Number [facility] [address] (ABNORMAL) CBC with platelets (07/09/2020 9:29 AM WATER RESOURCE SPECIALIST) [facility] Method Time Signature WBC 12.4 (H) 4.0 - 11.0 07/09/2020 [facility] 10e9/L 10:08 AM [facility] RBC Count 3.69 (L) 3.8 - 5.2 07/09/2020 [facility] 10e12/L 10:08 AM [facility] Hemoglobin 11.8 11.7 - 07/09/2020 [facility] 15.7 g/dL 10:08 AM [facility] Hematocrit 36.6 35.0 - 07/09/2020 [facility] 47.0 % 10:08 AM [facility] MCV 99 78 - 100 07/09/2020 [facility] fl 10:08 AM [facility] MCH 32.0 26.5 - 07/09/2020 [facility] 33.0 pg 10:08 AM [facility] MCHC 32.2 31.5 - 07/09/2020 [facility] 36.5 g/dL 10:08 AM [facility] RDW 15.3 (H) 10.0 - 07/09/2020 [place] 15.0 % 10:08 AM [facility] Platelet Count 321 150 - 450 07/09/2020 [place] 10e9/L 10:08 AM [facility] Specimen Anatomical Collection Method Collection Time Receive d Time (Source) Location / / Volume Laterality Blood specimen 07/09/2020 9:29 AM 020 9:30 (specimen) WATER RESOURCE SPECIALIST AM WATER RESOURCE SPECIALIST Kathy FARMER LAB - BLOOD [place] Performing Organization Address City/[facility]/ZIP Code Phon e Number [facility] [address] [place], [place] [address] [address] Glucose tolerance, gest screen, 1 hour (07/09/2020 9:29 AM WATER RESOURCE SPECIALIST) P athologist Signature Glu Gest Screen 105 60 - 129 07/10/2020 [place] 1hr 50g mg/dL 7:25 AM [facility] Specimen Anatomical Collection Method Collection Time Receive d Time (Source) Location / / Volume Laterality Blood specimen 07/09/2020 9:29 AM 020 9:30 (specimen) WATER RESOURCE SPECIALIST AM WATER RESOURCE SPECIALIST Kathy Ingram APRN, CNM LAB - BLOOD [place] Performing Organization Address City/[facility]/ZIP Code Phon e Number [facility] [address] [address] [place] [address] [address] [address], [facility] [phone] documented in this encounter Visit Diagnoses Diagnosis Encounter for supervision of normal firs t , third trimester - Primary Heartburn during in third trim dewayne documented in this encounter Additional Health Concerns Assessment Noted Time PHQ-9 Depression Total Score: 10 02/02/2020 8:23 AM CD T documented as of this encounter Care Teams Scoring Machine Operator Relationship Specialty Start Date End Date Blank Lemos MD PCP - General Internal Medicine 04/22/[address] [place], [place] [address] Blank Lemos MD Assigned PCP 04/25/[address] [place], [place] [id number] Kathleen Lacy CNM Assigned OBGYN Provider 06/01/20 11/23/21 [address] [place] [id number] documented as of this encounter
--- OUTSIDE RECORDS SUMMARY | 2022-05-29 10:55 | XMS_ITS | Encounter Summary ---
:1990 Author Organization [place] Address [address] [place] [address] Care Team Providers Name Role Phone Blank Lemos MD Primary Care Provider Blank Lemos MD Unavailable Kathleen Lacy CNM Unavailable Encounter Details Date Type Department Care Team Description 09/28/2020 Telephone [facility] Kathleen Lacy CNM [facility] [place] [address] [place] [address] [place] [address] [address] [place] [address] [phone] Social History Tobacco Use Types Packs/Day Years [...] with No / Unsure 09/24/2020 2:11 PM POULTRY FARM SUPERVISOR someone who was confirmed or suspected to have Coronavirus / COVID-19? documented as of this encounter Miscellaneous Notes Telephone Encounter - Kathleen Lacy CNM - 09/28/2020 7:16 AM CST Pt paged director recreation center YARELI stating her contractions are still every 2-3 mins apart despite rest/hydration.She is going to LD for assessment. LD notified. Kathleen Lacy APRN, CNM TRY FARM SUPERVISOR Telephone Encounter - Kathleen Lacy CNM - 09/28/2020 6:06 AM CST Pt paged director recreation center YARELI with reports of ctx about every [...] home for now. Kathleen Lacy APRN, CNM TRY FARM SUPERVISOR Telephone Encounter - Kathleen Lacy CNM - 09/28/2020 5:22 AM CST Rena paged director recreation center CNM stating that she just lost a large amount of vaginal discharge that was mucus-like in consistency. Denies ctx, bleeding, or lof. Reports good movement. States this happened 20mins ago. Discussed likely she lost her mucus plug. Counseled to put on a new pad and monitor.She will call if she continues to leak. Discussed s/s SROM. Kathleen Lacy APRN, CNM TRY FARM SUPERVISOR documented in this encounter Plan of Treatment Not on filedocumented as of this encounter Visit Diagnoses Not on filedocumented in this encounter Additional Health Concerns Assessment Noted Time PHQ-9 Depression Total Score: 5 12/06/2020 7:02 AM CDT documented as of this encounter Care Teams Tax Compliance Officer Relationship Specialty Start Date End Date Blank Lemos MD PCP - General Internal Medicine 04/22/[address] [place] [address] [place] [address] Blank Lemos MD Assigned PCP 04/25/[address] [place] [address] [place] [id number] Kathleen Lacy CNM Assigned OBGYN Provider 06/01/20 11/23/21 [place] [id number] documented as of this encounter
--- OUTSIDE RECORDS SUMMARY | 2022-05-29 10:55 | XMS_ITS | Encounter Summary ---
:1990 Author Organization [place] Address [address] [place] [address] Care Team Providers Name Role Phone Blank [...] with No / Unsure 09/03/2020 1:45 PM SALES PROJECT ADMINISTRATOR someone who was confirmed or suspected to have Coronavirus / COVID-19? documented as of this encounter Plan of Treatment Not on filedocumented as of this encounter Visit Diagnoses Not on filedocumented in this encounter Additional Health Concerns Assessment Noted Time PHQ-9 Depression Total Score: 5 12/06/2020 7:02 AM CDT documented as of this encounter Care Teams Asbestos Abatement Worker Relationship Specialty Start Date End Date Blank Lemos MD PCP - General Internal Medicine 04/22/[address] [place] [address] [place] [phone] Blank Lemos MD Assigned PCP 04/25/[address] [place] [address] [place] [phone] Kathleen Lacy CNM Assigned OBGYN Provider 06/01/20 11/23/21 [address] [place] [id number] documented as of this encounter
--- OUTSIDE RECORDS SUMMARY | 2022-05-29 10:55 | XMS_ITS | Encounter Summary ---
:1990 Author Organization [place] Address [facility] [place] [address] Care Team Providers Name Role Phone lBank Lemos MD Primary Care Provider Blank Lemos MD Unavailable Kathleen Lacy CN Unavailable Reason for Visit Reason Comments Care 36w 4d, discuss delivery prince n management options and restrictions Encounter Details Date Type Department Care Team Description 09/03/2020 Office [facility] EugenejodieStevan nnah, CNM [address] [place], [place] [phone] Encounter for Visit [facility] [place] [address] [place], [place] [phone] supervision of [place] normal first [address] in th ird [place] trimester (Primary [address] Dx) [place] [phone] Social History Tobacco Use Types Packs/Day Years [...] with No / Unsure 09/03/2020 1:45 PM WELDING MACHINE OPERATOR ELECTRO GAS someone who was confirmed or suspected to have Coronavirus / COVID-19? documented as of this encounter Last Filed Vital Signs Vital Sign Reading Time Taken Comments Blood Pressure 116/76 09/03/2020 1:48 PM WELDING MACHINE OPERATOR ELECTRO GAS Pulse - - Temperature - - Respiratory Rate - - Oxygen Saturation - - Inhaled Oxygen Concentration - - Weight 113.4 kg (250 lb) 09/03/2020 1:48 PM WELDING MACHINE OPERATOR ELECTRO GAS Height - - Body Mass Index 44.29 [...] symptoms if you are positive. ?? Your civil structural designer will discuss your results with you and make recommendations for treatment. Labor Instructions for Strap Sewer Patients When to call: Both during and after office hours call [phone]. There is a Nurse Strap Sewer available to take your calls and answer [...] your cervix, and will call us. The civil structural designer substation electrician supervisor will come in and be with you when you are in active labor ?? After hours you need to enter the hospital through the emergency room ING MACHINE OPERATOR ELECTRO GAS documented in this encounter Progress Notes Faiza [...] clinic 1 weeks Faiza Reyes APRN, CNM ING MACHINE OPERATOR ELECTRO GAS documented in this encounter Nursing Notes Luz [...] HM Due: NONE Luz Maria Abreu CMA ING MACHINE OPERATOR ELECTRO GAS documented in this encounter Plan of Treatment Not on filedocumented as of this encounter Procedures Procedure Name Priority Date/Time Associated Diagnosis Comme nts GROUP B STREP PCR Routine 09/03/2020 2:00 PM Encounter for Res ults for this WELDING MACHINE OPERATOR ELECTRO GAS supervision of normal proced ure are in first in the resul ts third trimester section. documented in this encounter Results Strep, Group B by PCR (09/03/2020 2:00 PM WELDING MACHINE OPERATOR ELECTRO GAS) [facility] Method Time Signature Group B Strep Vaginal 09/03/2020 [place] PCR Spec Carlos Rectal 1:46 PM WELDING MACHINE OPERATOR ELECTRO GAS [facility] Group B Strep Negative NEG^Negat 09/04/2020 [facility] yakelin 2:26 PM WELDING MACHINE OPERATOR ELECTRO GAS [facility] Comment: No GBS DNA detected, presumed negative f or GBS or number of bacteria may be below the limit of detection of the assa y. Assay performed on incubated broth cultu re of specimen using Brainceut[employer]id real-time PCR. Specimen Anatomical Collection Method Collection Time Receive d Time (Source) Location / / Volume Laterality Vaginal Rectal 09/03/2020 2:00 PM 021 3:25 WELDING MACHINE OPERATOR ELECTRO GAS PM WELDING MACHINE OPERATOR ELECTRO GAS Faiza Reyes CNM LAB - MICRO GENERAL ORDERABL ES Performing Organization Address City/State/ZIP Code Phon e Number [address] [address] [facility] [address] [place] [address] [address] documented in this encounter Visit Diagnoses Diagnosis Encounter for supervision of normal firs t in third trimester - Primary Supervision of normal first documented in this encounter Additional Health Concerns Assessment Noted Time PHQ-9 Depression Total Score: 5 12/06/2020 7:02 AM CDT documented as of this encounter Care Teams Early Learning Teacher Relationship Specialty Start Date End Date Blank Lemos MD PCP - General Internal Medicine 04/22/[address] [place] [address] [place] [phone] Blank Lemos MD Assigned PCP 04/25/[address] [place] [address] [place] [phone] Kathleen Lacy CNM Assigned OBGYN Provider 06/01/20 11/23/21 [place] [address] documented as of this encounter
--- OUTSIDE RECORDS SUMMARY | 2022-05-29 10:55 | XMS_ITS | Encounter Summary ---
:1990 Author Organization [place] Address [facility] [place] [address] Care Team Providers Name Role Phone Blank Lemos MD Primary Care Provider Blank Lemos MD Unavailable Kathleen Lacy CNM Unavailable Reason for Visit Reason Comments Shortness of Breath Tachycardia Encounter Details Date Type Department Care Team Description 07/09/2020 Emergency [facility] Chilango Lentz MD [facility] [address] [place], [place] [id number] Panic attack; [facility] Emergency Dep t Avelino Weinstein MD [facility] [address] [place], [place] [id number] 28 weeks gestation of [address] [place] [phone] Social History Tobacco Use Types Packs/Day Years [...] with No / Unsure 07/09/2020 7:18 PM PLEATING SUPERVISOR someone who was confirmed or suspected to have Coronavirus / COVID-19? documented as of this encounter Last Filed Vital Signs Vital Sign Reading Time Taken Comments Blood Pressure 154/94 07/09/2020 7:19 PM PLEATING SUPERVISOR Pulse 90 07/09/2020 7:19 PM PLEATING SUPERVISOR Temperature 36.4 ??C (97.6 ??F) 07/09/2020 7:19 PM PLEATING SUPERVISOR Respiratory Rate 16 07/09/2020 7:19 PM PLEATING SUPERVISOR Oxygen Saturation 99% 07/09/2020 7:19 PM PLEATING SUPERVISOR Inhaled Oxygen Concentration - - Weight - - Height - - Body Mass Index - - documented in this encounter Discharge Instructions AttachmentsThe following attachments cannot be sent through Care Everywhere. Panic Attack (Mauritian)documented in this encounter Medications at Time of [...] 1800 this evening. She spoke with her spray gun striper who thought she sounded SOB and should come to the ER for evaluation. Did call OB charge who wants patient to be seen in the ER. TING SUPERVISOR Avelino Weinstein MD - 07/09/2020 7:14 PM CST History Chief Complaint: Shortness of Breath and Tachycardia KEARA Turner is a 30 year old female who is 28 weeks (G1) with a history of anxiety and panic attacks who presents with shortness of breath and tachycardia. The patient states that she went to greens picker her routine prescriptions at the store and [...] sinus rhythm Normal ECG Rate 75 bpm. [place] interval 150 ms. QRS duration 74 ms. [...] observations and the provider's statements to me. [facility] EMERGENCY DEPT Avelino Weinstein MD 07/10/20 0001 TING SUPERVISOR documented in this encounter Plan of Treatment Not on filedocumented as of this encounter Procedures Procedure Name Priority Date/Time Associated Comments Diagnosis CBC WITH PLATELETS & STAT 07/09/2020 7:21 PM R esults for this DIFFERENTIAL PLEATING SUPERVISOR procedure are i n the results section. TROPONIN I STAT 07/09/2020 7:21 PM Results f or this PLEATING SUPERVISOR procedure are i n the results section. BASIC METABOLIC PANEL STAT 07/09/2020 7:21 PM Results for this PLEATING SUPERVISOR procedure are i n the results section. EKG 12-LEAD, TRACING STAT 07/09/2020 7:19 PM R esults for this ONLY PLEATING SUPERVISOR procedure are i n the results section. documented in this encounter Results (ABNORMAL) CBC with platelets differential (07/09/2020 7:21 PM [facility]) [facility] Method Time Signature WBC 14.3 (H) 4.0 - 07/09/2020 [facility] 11.0 7:38 PM [facility] 10e9/L HOSPITAL RBC Count 3.86 3.8 - 5.2 07/09/2020 [facility] 10e12/L 7:38 PM [facility] Hemoglobin 12.5 11.7 - 07/09/2020 [facility] 15.7 g/dL 7:38 PM [facility] Hematocrit 37.7 35.0 - 07/09/2020 [facility] 47.0 % 7:38 PM [facility] MCV 98 78 - 100 07/09/2020 [facility] fl 7:38 PM [facility] MCH 32.4 26.5 - 07/09/2020 [facility] 33.0 pg 7:38 PM [facility] MCHC 33.2 31.5 - 07/09/2020 [facility] 36.5 g/dL 7:38 PM [facility] RDW 15.1 (H) 10.0 - 07/09/2020 [facility] 15.0 % 7:38 PM [facility] Platelet Count 328 150 - 450 07/09/2020 [facility] 10e9/L 7:38 PM [facility] Diff Method Automated 07/09/2020 [facility] Method 7:38 PM [facility] % Neutrophils 71.2 % 07/09/2020 [facility] 7:38 PM [facility] % Lymphocytes 22.8 % 07/09/2020 [facility] 7:38 PM [facility] % Monocytes 3.8 % 07/09/2020 [facility] 7:38 PM [facility] % Eosinophils 1.4 % 07/09/2020 [facility] 7:38 PM [facility] % Basophils 0.2 % 07/09/2020 [facility] 7:38 PM [facility] % Immature 0.6 % 07/09/2020 [facility] Granulocytes 7:38 PM [facility] Nucleated RBCs 0 0 /100 07/09/2020 [facility] 7:38 PM [facility] Absolute 10.2 (H) 1.6 - 8.3 07/09/2020 [facility] Neutrophil 10e9/L 7:38 PM [facility] Absolute 3.3 0.8 - 5.3 07/09/2020 [facility] Lymphocytes 10e9/L 7:38 PM [facility] Absolute 0.5 0.0 - 1.3 07/09/2020 [facility] Monocytes 10e9/L 7:38 PM [facility] Absolute 0.2 0.0 - 0.7 07/09/2020 [facility] Eosinophils 10e9/L 7:38 PM [facility] Absolute 0.0 0.0 - 0.2 07/09/2020 [facility] Basophils 10e9/L 7:38 PM [facility] Abs Immature 0.1 0 - 0.4 07/09/2020 [facility] Granulocytes 10e9/L 7:38 PM [facility] Absolute 0.0 07/09/2020 [facility] Nucleated RBC 7:38 PM [facility] Specimen Anatomical Collection Method Collection Time Receive d Time (Source) Location / / Volume Laterality Blood specimen 07/09/2020 7:21 PM 020 7:34 (specimen) PLEATING SUPERVISOR PM PLEATING SUPERVISOR Chilango Lentz MD LAB - BLOOD ORDERABLES Performing Organization Address City/State/ZIP Code Phon e Number [place] [address] [place] [address] [phone] Troponin I (07/09/2020 7:21 PM PLEATING SUPERVISOR) athologist Signature Troponin I ES <0.015 0.000 - 07/09/2020 [facility] 0.045 ug/L 8:14 PM [facility] Comment: The 99th percentile for upper reference range is 0.045 ug/L. ??Troponin values in the range of 0.045 - 0.120 ug/L may b e associated with risks of adverse clinical events. Specimen Anatomical Collection Method Collection Time Receive d Time (Source) Location / / Volume Laterality Blood specimen 07/09/2020 7:21 PM 020 7:34 (specimen) PLEATING SUPERVISOR PM PLEATING SUPERVISOR Chilango Lentz MD LAB - BLOOD ORDERABLES Performing Organization Address City/State/ZIP Code Phon e Number M [facility] [address] [place], [place] [address] [facility] [address] [place], [place] [address] [phone] (ABNORMAL) Basic metabolic panel (07/09/2020 7:21 PM [facility]) athologist Signature Sodium 138 133 - 144 07/09/2020 [facility] mmol/L 8:02 PM [facility] Potassium 3.3 (L) 3.4 - 5.3 07/09/2020 [facility] mmol/L 8:02 PM [facility] Chloride 106 94 - 109 07/09/2020 [facility] mmol/L 8:02 PM [facility] Carbon Dioxide 25 20 - 32 07/09/2020 [facility] mmol/L 8:09 PM [facility] Anion Gap 7 3 - 14 07/09/2020 [facility] mmol/L 8:09 PM [facility] Glucose 117 (H) 70 - 99 07/09/2020 [facility] mg/dL 8:09 PM [facility] Urea Nitrogen 4 (L) 7 - 30 07/09/2020 [facility] mg/dL 8:09 PM [facility] Creatinine 0.62 0.52 - 07/09/2020 [facility] 1.04 mg/dL 8:09 PM [facility] GFR Estimate >90 >60 07/09/2020 [facility] mL/min/{1. 8:09 PM [facility] 73_m2} HOSPITAL Comment: Non GFR Calc Starting 07/27/2018, serum creatinine ba sed estimated GFR (eGFR) will be calculated using the Chronic Kidney Dise [facility] Epidemiology Collaboration (CKD-EPI) equation. GFR Estimate If >90 >60 mL/min/{1.73_m2} 07/09/2020 8: 09 PM [facility] Comment: GFR Calc Starting 07/27/2018, serum creatinine ba sed estimated GFR (eGFR) will be calculated using the Chronic Kidney Dise [facility] Epidemiology Collaboration (CKD-EPI) equation. Calcium 9.3 8.5 - 10.1 mg/dL 07/09/2020 8:09 PM [facility] Specimen Anatomical Collection Method Collection Time Receive d Time (Source) Location / / Volume Laterality Blood specimen 07/09/2020 7:21 PM 020 7:34 (specimen) PLEATING SUPERVISOR PM PLEATING SUPERVISOR Chilango Lentz MD LAB - BLOOD ORDERABLES Performing Organization Address City/State/ZIP Code Phon e Number [facility] [address] [place] [address] [facility] [address] [place], [place] [address], [facility] [phone] [facility] [address] [place] [address], [facility] EKG 12-lead, tracing only (07/09/2020 7:19 PM PLEATING SUPERVISOR) [facility] Method Time Signature Interpretation ECG Click View RADIOLOGY Image link RESULTS to view waveform and result Specimen (Source) Anatomical Collection Method Collection Time Re ceived Time Location / / Volume Laterality 07/09/2020 7:19 PM PLEATING SUPERVISOR Chilango Lentz MD ECG ORDERABLES Performing Organization Address City/State/ZIP Code Phon e Number RADIOLOGY RESULTS documented in this encounter Visit Diagnoses Diagnosis Panic attack Panic disorder without agoraphobia 28 weeks gestation of state, incidental documented in this encounter Additional Health Concerns Assessment Noted Time PHQ-9 Depression Total Score: 10 02/02/2020 8:23 AM CD T documented as of this encounter Care Teams Body Cleaner Relationship Specialty Start Date End Date Blank Lemos MD PCP - General Internal Medicine 04/22/[address] [place] [address] [place] [address] Blank Lemos MD Assigned PCP 04/25/[address] [place] [address] [place] [phone] Kathleen Lacy CNM Assigned OBGYN Provider 06/01/20 11/23/21 [address] [place] [address] documented as of this encounter
--- OUTSIDE RECORDS SUMMARY | 2022-05-29 10:55 | XMS_ITS | Encounter Summary ---
:1990 Author Organization [place] Address [address] [facility] [place] [address] Care Team Providers Name Role Phone Blank Lemos MD Primary Care Provider Blank Lemos MD Unavailable Kathleen Lacy CNM Unavailable Reason for Visit Reason Comments Care 25w 4d Encounter Details Date Type Department Care Team Description 06/18/2020 Office [facility] Chapo Jones for supervision of normal first in second trimester (Primary Dx); [facility] YARELI Rowe Non morbid obesity, unspecified obesity type [place] [address] [place] [address] [address] [place], [place] [phone] [address] (Work) [phone] Social History Tobacco Use Types Packs/Day Years [...] with No / Unsure 06/18/2020 2:11 PM GENERAL HOUSE WORKER someone who was confirmed or suspected to have Coronavirus / COVID-19? documented as of this encounter Last Filed Vital Signs Vital Sign Reading Time Taken Comments Blood Pressure 116/66 06/18/2020 2:16 PM GENERAL HOUSE WORKER Pulse - - Temperature - - Respiratory Rate - - Oxygen Saturation - - Inhaled Oxygen Concentration - - Weight 107 kg (236 lb) 06/18/2020 2:16 PM GENERAL HOUSE WORKER Height - - Body Mass Index 41.81 [...] documented by the student and edited by me. Britney Jones CNM 06/18/2020 2:34 PM RAL HOUSE WORKER documented in this encounter Plan of [...] documented as of this encounter Care Teams Mulcher Operator Relationship Specialty Start Date End Date Blank Lemos MD PCP - General Internal Medicine 04/22/18 [address] [facility] [place] [phone] Blank Lemos MD Assigned PCP 04/25/18 [address] [facility] [place] [phone] Kathleen Lacy CNM Assigned OBGYN Provider 06/01/20 11/23/21 [place] [address] documented as of this encounter
--- OUTSIDE RECORDS SUMMARY | 2022-05-29 10:55 | XMS_ITS | Encounter Summary ---
:1990 Author Organization [place] Address [facility] [address] Care Team Providers Name Role Phone Blank Lemos MD Primary Care Provider Blank Lemos MD Unavailable Kathleen Lacy CNM Unavailable Reason for Visit Reason Onset Date Comments Abdominal Pain 08/09/2020 Encounter Details Date Type Department Care Team Description 08/09/2020 Telephone [facility] Ryann poon, Faiza Rodriguez, [facility] [address] [place] [address] [address] [place] [address] [phone] Social History Tobacco Use Types Packs/Day Years [...] with No / Unsure 08/06/2020 1:53 PM STRATEGIC COMMUNICATIONS MANAGER someone who was confirmed or suspected to have Coronavirus / COVID-19? documented as of this encounter Miscellaneous Notes Telephone Encounter - Faiza Reyes CNM - 08/09/2020 8:20 PM CST Patient paged CNM director of operations home health with reports of period like cramps earlier today. Now cramping has resolved, but patient :just feels off. Baby active. No vaginal bleeding or leaking or fluid. No other symptoms, fever, nausea or vomiting. Advised patient to try some tylenol, push fluids and rest. Call ifshe begins to feel worse. Encouraged patient to call with any questions or concerns. Faiza Reyes APRN, CNM TEGIC COMMUNICATIONS MANAGER documented in this encounter Plan of Treatment Not on filedocumented as of this encounter Visit Diagnoses Not on filedocumented in this encounter Additional Health Concerns Assessment Noted Time PHQ-9 Depression Total Score: 10 02/02/2020 8:23 AM CD T documented as of this encounter Care Teams Home Restoration Service Cleaner Relationship Specialty Start Date End Date Blank Lemos MD PCP - General Internal Medicine 04/22/18 [address] [facility] [place] [address] Blank Lemos MD Assigned PCP 04/25/18 [address] [facility] [place] [address] Lacy, Kathleen A, CNM Assigned OBGYN Provider 06/01/20 11/23/21 [address] [place], [place] [address] documented as of this encounter
--- OUTSIDE RECORDS SUMMARY | 2022-05-29 10:55 | XMS_ITS | Encounter Summary ---
:1990 Author Organization [place] Address [address] [facility] [place] [address] Care Team Providers Name Role Phone Blank Lemos MD Primary Care Provider Blank Lemos MD Unavailable Kathleen Lacy CNM Unavailable Reason for Visit Reason Comments Care Encounter Details Date Type Department Care Team Description 08/06/2020 Office [facility] Rand Kam h-risk , third trimester (Primary Dx); [facility] EGINNY CNM Pelvic pain affecting in third trimester, antepartum; [place] [address] At risk for venous thromboem bolism (VTE); [address] Elevated blood pressure affecting pregna ncy in third trimester, antepartum [place], [place] [address] [address] [place], [place] [phone] [address] (Work) [phone] Social History Tobacco Use Types Packs/Day Years [...] with No / Unsure 08/06/2020 1:53 PM HIV/AIDS CARE NURSE someone who was confirmed or suspected to have Coronavirus / COVID-19? documented as of this encounter Last Filed Vital Signs Vital Sign Reading Time Taken Comments Blood Pressure 122/74 08/06/2020 2:02 PM HIV/AIDS CARE NURSE Pulse - - Temperature - - Respiratory Rate - - Oxygen Saturation - - Inhaled Oxygen Concentration - - Weight 110.2 kg (243 lb) 08/06/2020 2:02 PM HIV/AIDS CARE NURSE Height - - Body Mass Index 43.05 04/09/2020 1:36 PM CDT documented in this encounter Progress Notes Rand Kam, GINNY DOWNS - 08/06/2020 2:00 PM CST Rena Turner [...] Review need for PP VTE prophylaxis at [place]. Warning signs reviewed. RTC in 2 weeks, sooner if problems. /AIDS CARE NURSE documented in this encounter Nursing Notes [...] smoked. Reports pelvic pain over the weekend. /AIDS CARE NURSE documented in this encounter Plan of [...] documented as of this encounter Care Teams Acid Conditioning Worker Relationship Specialty Start Date End Date Blank Lemos MD PCP - General Internal Medicine 04/22/[address] [place] [address] [place] [address] Blank Lemos MD Assigned PCP 04/25/[address] [place] [address] [place] [address] Kathleen Lacy CNM Assigned OBGYN Provider 06/01/20 11/23/21 [address] [place] [address] documented as of this encounter
--- OUTSIDE RECORDS SUMMARY | 2022-05-29 10:55 | XMS_ITS | Encounter Summary ---
:1990 Author Organization [place] Address [facility] [place] [address] Care Team Providers Name Role Phone Blank Lemos MD Primary Care Provider Blank Lemos MD Unavailable Kathleen Lacy CNM Unavailable Reason for Visit Reason Onset Date Comments Appointment 08/27/2020 need to schedule f/u Encounter Details Date Type Department Care Team Description 08/27/2020 Telephone [facility] Blank Lemostn nt (need to Clinic [place] MD schedule f/u ) [address] [facility] [address] [place] [address] [place] [address] [phone] Social History Tobacco Use Types Packs/Day Years [...] with No / Unsure 09/28/2020 8:47 AM DIGITAL MEDIA INTERN someone who was confirmed or suspected to have Coronavirus / COVID-19? documented as of this encounter Miscellaneous Notes Telephone Encounter - Nahed Carrillo MA - 10/08/2020 10:05 AM CST See below; closing encounter. VITALY ALEJANDRO MA on 10/08/2020 at 10:05 AM TAL MEDIA INTERN Telephone Encounter - Melodie Curiel - 08/29/2020 12:18 PM CST Sent [employer] message that patient has appt for a physical in December with Dr. Lemos. TAL MEDIA INTERN Telephone Encounter - Nahed Carrillo MA - 08/27/2020 2:[address] Lemos: Schedule follow up physical in November/December. I left message for patient to return call. VITALY ALEJANDRO MA on 08/27/2020 at 2:28 PM TAL MEDIA INTERN documented in this encounter Plan of Treatment Not on filedocumented as of this encounter Visit Diagnoses Not on filedocumented in this encounter Additional Health Concerns Assessment Noted Time PHQ-9 Depression Total Score: 5 12/06/2020 7:02 AM CDT documented as of this encounter Care Teams Industrial Management Teacher Relationship Specialty Start Date End Date Blank Lemos MD PCP - General Internal Medicine 04/22/18 [address] [facility] K[place]AN R[place] [phone] Blank Lemos MD Assigned PCP 04/25/18 [address] [facility] K[place]AN R[place] [phone] Kathleen Lacy CNM Assigned OBGYN Provider 06/01/20 11/23/21 [place] [address] documented as of this encounter
--- OUTSIDE RECORDS SUMMARY | 2022-05-29 10:55 | XMS_ITS | Encounter Summary ---
:1990 Author Organization [place] Address [facility] [place] [address] Care Team Providers Name Role Phone Blank Lemos MD Primary Care Provider Blank Lemos MD Unavailable Kathleen Lacy CNM Unavailable Reason for Visit Reason Comments Care Encounter Details Date Type Department Care Team Description 07/23/2020 Office [facility] Kathleen Lacy Enco unter for supervision of normal first in third trimester (Primary Dx); [facility] CNM Anxiety during in second trime ster, antepartum [place] [address] [place], [place] [address] [address] [place], [place] [phone] [address] (Work) [phone] Social History Tobacco Use Types Packs/Day Years [...] with No / Unsure 07/23/2020 1:56 PM COOLER TENDER someone who was confirmed or suspected to have Coronavirus / COVID-19? documented as of this encounter Last Filed Vital Signs Vital Sign Reading Time Taken Comments Blood Pressure 118/72 07/23/2020 2:00 PM COOLER TENDER Pulse - - Temperature - - Respiratory Rate - - Oxygen Saturation - - Inhaled Oxygen Concentration - - Weight 107.5 kg (237 lb) 07/23/2020 2:00 PM COOLER TENDER Height - - Body Mass Index 41.98 04/09/2020 1:36 PM CDT documented in this encounter Patient Instructions Patient InstructionsKathleen Lacy CNM - 07/23/2020 2:00 PM CST [email or web address] website Weeks 27 thru 32 [...] since the end of the first trimester. ER TENDER documented in this encounter Progress Notes Kathleen [...] clinic 2 weeks Kathleen Lacy APRN, CNM ER TENDER documented in this encounter Nursing Notes Gonzalez Mitchell MA - 07/23/2020 2:00 PM CST Chief Complaint [...] Pt. has never smoked. Gonzalez Mitchell MA ER TENDER documented in this encounter Plan of Treatment [...] documented as of this encounter Care Teams Rehabilitation Aide/Scheduler Relationship Specialty Start Date End Date Blank Lemos MD PCP - General Internal Medicine 04/22/[address] [place] [address] [place] [phone] Blank Lemos MD Assigned PCP 04/25/[address] [place] [address] [place] [phone] Kathleen Lacy CNM Assigned OBGYN Provider 06/01/20 11/23/21 [place] [address] documented as of this encounter
--- OUTSIDE RECORDS SUMMARY | 2022-05-29 10:55 | XMS_ITS | Encounter Summary ---
:1990 Author Organization [place] Address [facility] [place] [address] Care Team Providers Name Role Phone Blank [...] Weeks Follow Up [address] [place] [address] Referral ID Status Reason Start Date Expiration Date Visits Requ ested Visits Authorized [id number] Closed 08/20/2020 08/20/2021 1 1 IR SPECIALIST Reason for Visit Reason Comments Care 34w 4d, c/o leg cramps and r estless legs, also period like cramps Encounter Details Date Type Department Care Team Description 08/20/2020 Office [facility] Chapo Cat er for supervision of normal first in third trimester (Primary Dx); [facility] YARELI Rowe Pelvic pain affecting in third trimester, antepartum; [place] [address] Excessive weight gain during in third trimester [address] [place], [place] [address] [address] [place], [place] [phone] [address] (Work) [phone] Social History Tobacco Use Types Packs/Day Years [...] with No / Unsure 08/20/2020 1:54 PM REPAIR SPECIALIST someone who was confirmed or suspected to have Coronavirus / COVID-19? documented as of this encounter Last Filed Vital Signs Vital Sign Reading Time Taken Comments Blood Pressure 122/70 08/20/2020 1:58 PM REPAIR SPECIALIST Pulse - - Temperature - - Respiratory Rate - - Oxygen Saturation - - Inhaled Oxygen Concentration - - Weight 112.5 kg (248 lb) 08/20/2020 1:58 PM REPAIR SPECIALIST Height - - Body Mass Index 43.93 [...] H. Octavia Jones CNM 08/20/2020 4:56 PM IR SPECIALIST documented in this encounter Nursing Notes [...] HM Due: NONE Luz Maria Abreu CMA IR SPECIALIST documented in this encounter Plan of Treatment Not on filedocumented as of this encounter Procedures Procedure Name Priority Date/Time Associated Comments Diagnosis UA WITH MICROSCOPIC Routine 08/20/2020 2:30 PM Pelvic pain Re sults for this AND REFLEX TO CULTURE REPAIR SPECIALIST affecting procedure are in in third trimester, the resu lts antepartum section. URINE CULTURE Routine 08/20/2020 2:30 PM Pelvic pain Results for this REPAIR SPECIALIST affecting procedur e are in in third trimester, the resu lts antepartum section. documented in this encounter Results US OB >14 Weeks Follow Up (09/03/2020 1:47 PM REPAIR SPECIALIST) Anatomical Region Laterality Modality Abdomen/Pelvis Ultrasound Specimen (Source) Anatomical Location Collection Method / Collectio n Time Received Time / Laterality Volume Impressions 09/03/2020 4:32 PM REPAIR SPECIALIST ? [place] Gestation. ?? presentation: Cephalic Placenta: [...] No gross anomalies observed. Kori Booker MD FAC Obstetrics and Gynecology [facility] Narrative 09/03/2020 4:32 PM REPAIR SPECIALIST [facility] Obstetrics and Gynecology ?? ULTRASOUND - OB [...] Urine Culture Aerobic Bacterial (08/20/2020 2:30 PM REPAIR SPECIALIST) Component Value Ref Test Analysis Performed At [facility] gist Range Method Time Signature Specimen Midstream Urine INFECTIOUS Description DISEASES DI[facility], [facility] Special Specimen received 08/20/2020 INFECTIOUS Requests in preservative 6:49 PM REPAIR SPECIALIST DISEASES DIAGNOSTIC LAB[facility]AT[facility], [facility] Culture Micro <10,000 colonies/mL 08/21/2020 INFEC TIOUS urogenital andre 4:51 PM REPAIR SPECIALIST DISEASES Susceptibility testing not routinely done DIAGNOSTIC LABORAT[facility], [facility] Specimen (Source) Anatomical Collection Method Collection Time Re ceived Time Location / / Volume Laterality Examination of 08/20/2020 2:30 08/20/2020 2:44 midstream urine PM REPAIR SPECIALIST PM REPAIR SPECIALIST specimen (procedure) Soledad Jones CNM LAB - MICRO GENERAL ORDERABL ES Performing Organization Address City/State/ZIP Code Phon e Number INFECTIOUS DISEASES DIAGNOSTIC [address] [facility] [place] [address] LABORATORY, [facility] (ABNORMAL) UA with Microscopic reflex to Culture (08/20/2020 2:30 PM REPAIR SPECIALIST) Patholo gist Method Time Signature Color Urine Yellow 08/20/2020 [facility] 2:56 PM REPAIR SPECIALIST [facility] [place] Appearance Urine Clear 08/20/2020 [facility] 2:56 PM REPAIR SPECIALIST [facility] [place] Glucose Urine Negative NEG^Negat 08/20/2020 [facility] yakelin mg/dL 2:56 PM REPAIR SPECIALIST [facility] Bilirubin Urine Negative NEG^Negat 08/20/2020 [facility] yakelin 2:56 PM REPAIR SPECIALIST [facility] [place] Ketones Urine Negative NEG^Negat 08/20/2020 [facility] yakelin mg/dL 2:56 PM [facility] Specific [place] 1.015 1.003 - 08/20/2020 [facility] Urine 1.035 2:56 PM [facility] pH Urine 7.0 5.0 - 7.0 08/20/2020 [facility] pH 2:56 PM [facility] Protein Albumin Negative NEG^Negat 08/20/2020 [facility] Urine yakelin mg/dL 2:56 PM [facility] Urobilinogen 0.2 0.2 - 1.0 08/20/2020 [facility] Urine EU/dL 2:56 PM REPAIR SPECIALIST [facility] Nitrite Urine Negative NEG^Negat 08/20/2020 [facility] yakelin 2:56 PM [facility] Blood Urine Negative NEG^Negat 08/20/2020 [facility] [place]akelin 2:56 PM [facility] Leukocyte Trace (A) NEG^Negat 08/20/2020 [facility] Esterase Urine yakelin 2:56 PM [facility] Source Midstream 08/20/2020 [facility] Urine 2:43 PM [facility] WBC Urine 5-10 (A) OTO5^0 - 08/20/2020 [facility] 5 /HPF 2:56 PM [facility] RBC Urine O - 2 OTO2^O - 08/20/2020 [facility] 2 /HPF 2:56 PM [facility] Squamous Few FEW^Few 08/20/2020 [facility] Epithelial /LPF /LPF 2:56 PM [facility] Urine [place] Bacteria Urine Moderate (A) NEG^Negat [facility]20[facility] /HPF 2:56 PM [facility] Amorphous Moderate (A) NEG^Negat 08/20/2020 [facility] Crystals yakelin /HPF 2:56 PM [facility] Specimen (Source) Anatomical Collection Method Collection Time Re ceived Time Location / / Volume Laterality Examination of 08/20/2020 2:30 08/20/2020 2:43 midstream urine PM REPAIR SPECIALIST PM REPAIR SPECIALIST specimen (procedure) Soledad Jones CNM LAB - URINE ORDERABLES Performing Organization Address City/State/ZIP Code Phon e Number [facility] [address] [place], [place] [address] [address] documented in [...] documented as of this encounter Care Teams Sfdc Consultant Relationship Specialty Start Date End Date Blank Lemos MD PCP - General Internal Medicine 04/22/[address] [place] [address] KISHAN RENO [phone] Blank Lemos MD Assigned PCP 04/25/[address] [place] [address] KISHAN RENO [phone] Kathleen Lacy CNM Assigned OBGYN Provider 06/01/20 11/23/21 [place] [address] documented as of this encounter
--- OUTSIDE RECORDS SUMMARY | 2022-05-29 10:55 | XMS_ITS | Encounter Summary ---
:1990 Author Organization [place] Address [address] [place] [address] Care Team Providers Name Role Phone Blank Lemos MD Primary Care Provider Blank Lemos MD Unavailable Kathleen Lacy CNM Unavailable Encounter Details Date Type Department Care Team Description 08/16/2020 Orders Only M [facility] Taylor Gonsales RN [facility] [address] [place] [address] [address] [place] [address] Social History Tobacco Use Types [...] with No / Unsure 08/06/2020 1:53 PM WHITEWASHER someone who was confirmed or suspected to [...] documented as of this encounter Care Teams Floatlight Powder Mixer Relationship Specialty Start Date End Date Blank Lemos MD PCP - General Internal Medicine 04/22/[address] [place] [address] KISHAN RENO [phone] Blank Lemos MD Assigned PCP 04/25/[address] [place] [address] KISHAN RENO [phone] Kathleen Lacy CNM Assigned OBGYN Provider 06/01/20 11/23/21 Cipriano Rivera ARABIKISHAN MARIE [address] documented as of this encounter
--- OUTSIDE RECORDS SUMMARY | 2022-05-29 10:55 | XMS_ITS | Encounter Summary ---
:1990 Author Organization [place] Address [address] [place] [address] Care Team Providers Name Role Phone Blank [...] documented as of this encounter Care Teams Military Police Officer Relationship Specialty Start Date End Date Blank Lemos MD PCP - General Internal Medicine 04/22/[address] [place] [address] KISHAN RENO [phone] Blank Lemos MD Assigned PCP 04/25/[address] [place] [address] KISHAN RENO [phone] documented as of this encounter
--- OUTSIDE RECORDS SUMMARY | 2022-05-29 10:56 | XMS_ITS | Encounter Summary ---
:1990 Author Organization [place] Address [address] [place] [address] Care Team Providers Name Role Phone Blank Lemos MD Primary Care Provider Blank Lemos MD Unavailable Reason for Visit Reason Comments Care New Nurse Telephone Visit Encounter Details Date Type Department Care Team Description 02/07/2020 Office [facility] er for Visit Clinic Dev supervision of normal [address] first preg manny in [facility] [address] first trimester [address] (Primary Dx) [...] as of this encounter Progress Notes Vandana Sosa RN - 02/07/2020 1:00 PM CDT Chief [...] If you answered Yes, is this for denominational reasons?: No Does anyone in your home [...] you have any allergies to drugs or koaq-rwv-eomzkye medications?: (!) Yes(doxycycline) Allergies: Dust Mites, Aspartame, [...] or bleed: (!) Yes(nausea, fatigue, breast tenderness, aircraft electronics technical officer mping, spotting) Current medications, including xsaf-ftq-ehaomyw medications, you are using? (If not applicable answer none): see med list. weaning off of topamax Will the patient be 35 years old or older at the time of delivery?: No Has the patient, baby's father or anyone in either family had: Thalassemia (Urdu, Mexican, Mediterranean or background only) and an MCV result less than 80?: (P) No Neural tube defect such as meningomyelocele, spina bifida or anencephaly?: (P) No Congenital heart defect?: (P) No Down's Syndrome?: (P) No Wilber-Sachs disease (Restorationism, Cajun, Greek-Alburtis)?: (P) No Sickle cell disease or trait ()?: (P) No Hemophilia or other inherited problems of blood?: (P) No Muscular dystrophy?: (!) Yes(FOB's uncle has MD) Cystic fibrosis?: (P) No Patricia's chorea?: (P) No Mental retardation/autism?: (P) No [...] type and screen (02/20/2020 9:09 AM CDT) [facility] Method Time Signature ABO O 02/20/2020 [place] 5:05 PM [facility] RH(D) Pos [facility] Antibody Neg 02/20/2020 [place] Screen 5:05 PM [facility] Test Valid [place] 02/20/2020 [place] Only At [facility] 5:02 PM [facility]PITAL Specimen 02/23/2020 02/20/2020 [place] Expires 5:02 PM [facility] Specimen Anatomical Collection Method Collection Time Receive d Time (Source) Location / / Volume Laterality Blood specimen 02/20/2020 9:09 AM 020 9:10 (specimen) CDT AM CDT Faiza Reyes CNM LAB - BLOOD BANK TEST ORDER Performing Organization Address City/State/ZIP Code Phon e Number [facility] [address], [place] [address] [facility] [address] [place], [place] [address] [place] [address] Urine Culture Aerobic Bacterial (02/20/2020 9:08 AM CDT) Patholo gist Method Time Signature Specimen Midstream INFECTIOUS Description Urine DISEASES DIAGNOSTIC LABORATORY Culture Micro <10,000 colonies/mL 02/21/2020 INFEC TIOUS mixed urogenital andre 1:24 PM CDT [facility] DIAGNOSTIC LABORATORY Specimen (Source) Anatomical Collection Method Collection Time Re ceived Time Location / / Volume Laterality Examination of 02/20/2020 9:08 02/20/2020 9:13 midstream urine AM CDT AM CDT specimen (procedure) Faiza Reyes CNM LAB - MICRO GENERAL ORDERABL ES Performing Organization Address City/[facility]/ZIP Code Phon e Number INFECTIOUS DISEASES [address] [place] [address] DIAGNOSTIC LABORATORY, [facility] INFECTIOUS DISEASES [address] [place] [address], A DIAGNOSTIC LABORATORY Treponema Abs w Reflex to RPR and Titer (02/20/2020 9:08 AM CDT) [facility] Method Time Signature Treponema Nonreactive NR^Nonrea 02/21/2020 [facility] ctive 9:37 AM CDT [facility] Comment: Methodology Change: Test performed on DiaSorin Liaison XL by Treponema pallidum Total Antibodies Assay as of . Specimen Anatomical Collection Method Collection Time Receive d Time (Source) Location / / Volume Laterality Blood specimen 02/20/2020 9:08 AM 020 9:13 (specimen) CDT AM CDT Faiza Reyes CNM LAB - BLOOD ORDERABLES Performing Organization Address City/[facility]/ZIP Code Phon e Number [facility] [address] [place] [address] [facility] Rubella Antibody IgG Quantitative (02/20/2020 9:08 AM CDT) [facility] Signature Rubella Antibody 20 IU/mL 02/21/2020 [facility] IgG Quantitative 11:12 AM CDT [facility] Comment: Positive. ??Suggests previous exposure o [...] ORDERABLES Performing Organization Address City/[facility]/ZIP Code Phon e Number [address] HIV Antigen Antibody Combo (02/20/2020 9:08 AM CDT) [facility] Method Time Signature HIV Antigen Nonreactive NR^Nonrea 02/21/2020 [place] Antibody ctive 9:57 AM CDT [facility] Comment: HIV-1 p24 Ag & HIV-1/HIV-2 Ab N ot Detected Specimen Anatomical Collection Method Collection Time Receive d Time (Source) Location / / Volume Laterality Blood specimen 02/20/2020 9:08 AM 020 9:13 (specimen) CDT AM CDT Faiza FARMER LAB - BLOOD ORDERABLES Performing Organization Address City/[facility]/ZIP Code Phon e Number [address] (ABNORMAL) CBC with platelets (02/20/2020 9:08 AM CDT) [facility] Method Time Signature WBC 11.3 (H) 4.0 - 11.0 02/20/2020 [facility] 10e9/L 10:39 AM CDT [facility] RBC Count 4.20 3.8 - 5.2 02/20/2020 [facility] 10e12/L 10:39 AM CDT [facility] Hemoglobin 12.9 11.7 - 02/20/2020 [facility] 15.7 g/dL 10:39 AM CDT [facility] Hematocrit 39.7 35.0 - 02/20/2020 [facility] 47.0 % 10:39 AM CDT [facility] MCV 95 78 - 100 02/20/2020 [place] fl 10:39 AM CDT [facility] MCH 30.7 26.5 - 02/20/2020 [place] 33.0 pg 10:39 AM CDT [facility] MCHC 32.5 31.5 - 02/20/2020 [place] 36.5 g/dL 10:39 AM CDT [facility] RDW 13.4 10.0 - 02/20/2020 [place] 15.0 % 10:39 AM CDT [facility] Platelet Count 350 150 - 450 02/20/2020 [place] 10e9/L 10:39 AM CDT [facility] Specimen Anatomical Collection Method Collection Time Receive d Time (Source) Location / / Volume Laterality Blood specimen 02/20/2020 9:08 AM 020 9:13 (specimen) CDT AM CDT Faiza Reyes CNM LAB - BLOOD ORDERABLES Performing Organization Address City/[facility]/ZIP Code Phon e Number [facility] [address] [place], [place] [address] [address] Hepatitis B surface antigen (02/20/2020 9:08 AM CDT) [facility] gist Method Time Signature Hep B Surface Nonreactive NR^Nonrea 02/21/2020 [facility] 9:57 AM CDT [facility] Specimen Anatomical Collection Method Collection Time Receive d Time (Source) Location / / Volume Laterality Blood specimen 02/20/2020 9:08 AM 020 9:13 (specimen) CDT AM CDT Faiza Reyes CNM LAB - BLOOD ORDERABLES Performing Organization Address City/State/ZIP Code Phon e Number [facility] [address] [place] [address] [facility] documented in this encounter Visit Diagnoses Diagnosis Encounter for supervision of normal firs t in first trimester - Primary Supervision of normal first documented in this encounter Additional Health Concerns Assessment Noted Time PHQ-9 Depression Total Score: 10 02/02/2020 8:23 AM CD T documented as of this encounter Care Teams Submarine Diver Relationship Specialty Start Date End Date Blank Lemos MD PCP - General Internal Medicine 04/22/[address] [place] [address] [address] MÉNDEZ [place] [phone] Blank Lemos MD Assigned PCP 04/25/[address] [place] [address] KISHAN RENO [phone] documented as of this encounter
--- OUTSIDE RECORDS SUMMARY | 2022-05-29 10:56 | XMS_ITS | Encounter Summary ---
:1990 Author Organization [place] Address [address] [place] [address] Care Team Providers Name Role Phone Blank [...] documented as of this encounter Care Teams Admissions Representative Relationship Specialty Start Date End Date Blank Lemos MD PCP - General Internal Medicine 04/22/[address] [place] [address] KISHAN RENO [phone] Blank Lemos MD Assigned PCP 04/25/[address] [place] [address] KISHAN RENO [phone] documented as of this encounter
--- OUTSIDE RECORDS SUMMARY | 2022-05-29 10:56 | XMS_ITS | Encounter Summary ---
:1990 Author Organization [place] Address [address] [place] [address] Care Team Providers Name Role Phone Blank [...] documented as of this encounter Care Teams Crude Tester Relationship Specialty Start Date End Date Blank Lemos MD PCP - General Internal Medicine 04/22/[address] [place] [address] KISHAN RENO [phone] Blank Lemos MD Assigned PCP 04/25/[address] [place] [address] KIHSAN RENO [phone] documented as of this encounter
--- OUTSIDE RECORDS SUMMARY | 2022-05-29 10:56 | XMS_ITS | Encounter Summary ---
:1990 Author Organization [place] Address [address] [place] [address] Care Team Providers Name Role Phone Blank Lemos MD Primary Care Provider Blank Lemos MD Unavailable Encounter Details Date Type Department Care Team Description 02/03/2020 Orders Only [facility] Clinic Ble eding in early [facility] [address] [place] [address] Social History Tobacco Use Types [...] (ABNORMAL) HCG quantitative (02/03/2020 10:56 AM CDT) [facility] Method Time Signature HCG Quantitative 13,231 0 - 5 02/04/2020 [place] Serum (H) IU/L 12:58 PM CDT [facility] Specimen Anatomical Collection Method Collection Time Receive d Time (Source) Location / / Volume Laterality Blood specimen 02/03/2020 10:56 0 (specimen) AM CDT 10:57 AM CDT Faiza Reyes CNM LAB - BLOOD ORDERABLES Performing Organization Address City/State/ZIP Code Phon e Number [facility] [address] [place] [address] documented in this encounter Visit Diagnoses Diagnosis Bleeding in early Unspecified hemorrhage in early pregnanc y, unspecified as to episode of care documented in this encounter Additional Health Concerns Assessment Noted Time PHQ-9 Depression Total Score: 10 02/02/2020 8:23 AM CD T documented as of this encounter Care Teams Geriatric Physician Relationship Specialty Start Date End Date Blank Lemos MD PCP - General Internal Medicine 04/22/[address] [place] [address] KISHAN RENO [phone] Blank Lemos MD Assigned PCP 04/25/[address] [place] [address] KISHAN RENO [phone] documented as of this encounter
--- OUTSIDE RECORDS SUMMARY | 2022-05-29 10:56 | XMS_ITS | Encounter Summary ---
:1990 Author Organization [place] Address [address] [place] [address] Care Team Providers Name Role Phone Blank [...] documented as of this encounter Care Teams Hydrographic Engineer Relationship Specialty Start Date End Date Blank Lemos MD PCP - General Internal Medicine 04/22/[address] [place] [address] KISHAN RENO [phone] Blank Lemos MD Assigned PCP 04/25/[address] [place] [address] KISHAN RENO [phone] documented as of this encounter
--- OUTSIDE RECORDS SUMMARY | 2022-05-29 10:56 | XMS_ITS | Encounter Summary ---
:1990 Author Organization [place] Address [facility] [place] [address] Care Team Providers Name Role Phone Blank Lemos MD Primary Care Provider Blank Lemos MD Unavailable Reason for Referral Diagnostic Imaging Ultrasound (Routine) - Closed Specialty Diagnoses / Procedures Referred By Contact Refer red To Contact Diagnoses related condition, antepartum Soledad Jones CNM Procedures [facility] Single [address] [place] [address] Referral ID Status Reason Start Date Expiration Date Visits Requ ested Visits Authorized [id number] Closed 05/01/2020 05/01/2021 1 1 Reason for Visit Diagnostic Imaging Ultrasound (Routine) - Closed Specialty Diagnoses / Procedures Referred By Contact Refer red To Contact Diagnoses related condition, antepartum Soledad Jones CNM Procedures [facility] Single [address] [place] [address] Referral ID Status Reason Start Date Expiration Date Visits Requ ested Visits Authorized [id number] Closed 05/01/2020 05/01/2021 1 1 Encounter Details Date Type Department Care Team Description 05/11/2020 Hospital Encounter [facility] Soledad Jones CNM [address] [place], [place] [address] related Maternal Ana Danielle MD [address] [place] [address] condition, Medicine Center antepartum [place] Cipriano Webb [facility] [address] [place] [phone] Social History Tobacco Use Types Packs/Day Years [...] Procedure Name Priority Date/Time Associated Comments Diagnosis [facility] US COMPREHENSIVE Routine 05/11/2020 10:21 relate d Results for this SINGLE AM CDT condition, procedure are i n antepartum the results section. documented in this encounter Results [facility] US Comprehensive Single (05/11/2020 10:21 [...] Study Date : 05/11/2020 9:20am Pat. NO: [id number] Referring ??[facility] Dry Mixer: Moraima Keita RD MS : 1990 Age: [...] lb 13 ? oz EFW by ?Hadlock ([id number]) Head / Face / Neck Biometry: Senior Software Developer ? 7.5 ? mm CM ?3.7 ? [...] cava. Inferior vena cava. 3-vessel ? view. 0-dvpgpo-bmjvgpq view. Cardiac position. Cardiac size. Cardiac rhythm. [...] Pat. Name:Noemi RESENDIZ Date: 9:20am Pat. NO: [id number] MD:SOLEDAD WERNER Site:[facility]:Moraima Keita RDMS :1990Age:30 INDICATION Suboptimal heart anatomy [...] 0 lb 13 oz EFW by Hadlock ([id number]) Head / Face / Neck Biometry: Senior Software Developer 7.5 mm CM 3.7 mm Nasal bone [...] vena cava. Inferior vena cava. 3-vessel view. 1-psptfl-gakbuas view. Cardiac po sition. Cardiac size. Cardiac [...] the cervix appears long and closed. Soledad Cruzosmeljodie [facility] US ORDERABLES documented in this encounter Visit Diagnoses Diagnosis related condition, antepartum documented in this encounter Additional Health Concerns Assessment Noted Time PHQ-9 Depression Total Score: 10 02/02/2020 8:23 AM CD T documented as of this encounter Care Teams Customer Account Manager Relationship Specialty Start Date End Date Blank Lemos MD PCP - General Internal Medicine 04/22/[address] [place] [address] KISHAN RENO [phone] Blank Lemos MD Assigned PCP 04/25/[address] [place] [address] KISHAN RENO [phone] documented as of this encounter
--- OUTSIDE RECORDS SUMMARY | 2022-05-29 10:56 | XMS_ITS | Encounter Summary ---
:1990 Author Organization [place] Address [facility] [place] [address] Care Team Providers Name Role Phone Blank Lemos MD Primary Care Provider Blank Lemos MD Unavailable Reason for Visit Reason Onset Date Comments Refill Request 04/18/2020 traZODone (DESYREL) 50 MG tablet (Discontinued) Encounter Details Date Type Department Care Team Description 04/18/2020 Refill [facility] Blank Lemos, Re fill Request Clinic Dev [place] (traZODone (DESYREL) 50 [address] [place] [address] [facility] MG ta blet (Discontinued) [facility] ) [address] [place] [address] [place] [address] [phone] Social History Tobacco Use Types Packs/Day Years [...] documented as of this encounter Care Teams Cash Specialist Relationship Specialty Start Date End Date Blank Lemos MD PCP - General Internal Medicine 04/22/18 [address] [place], [place] [address] Blank Lemos MD Assigned PCP 04/25/18 [address] [place], [place] [address] documented as of this encounter
--- OUTSIDE RECORDS SUMMARY | 2022-05-29 10:56 | XMS_ITS | Encounter Summary ---
:1988 Author Organization [place] Address [facility] [place] [address] Care Team Providers Name Role Phone Blank Lemos MD Primary Care Provider Blank Lemos MD Unavailable Reason for Visit Diagnostic Imaging Ultrasound (Routine) - Closed Specialty Diagnoses / Procedures Referred By Contact Refer red To Contact Diagnoses care in first trimester Mayra Cooper CNM Procedures US OB > [address] [place], [place] [address] Referral ID Status Reason Start Date Expiration Date Visits Requ ested Visits Authorized [id number] Closed 03/27/2020 03/27/2021 1 1 Encounter Details Date Type Department Care Team Description 05/01/2020 Ancillary Procedure [facility] Mayra Cooper care in Clinic Kely Kendall CNM first trimester [address] [facility] [address] [place] [address] [place] [phone] Social History Tobacco Use Types Packs/Day Years [...] Laterality Volume Narrative 05/01/2020 11:40 AM CDT [facility] Obstetrics and Gynecology ?? ULTRASOUND - OB [...] Not visualized ?? Complete obstetrical ultrasound using altime transabdominal scanning. Due to position, four chamber hear t and right ventricular outflow tracts are not well seen. No other gross anomalies observed; ??corresponding menstrual and sonographic dates. Maternal uterus appears Normal Maternal ovaries were not visualized. Placenta is posterior and fundal. Amniotic fluid assessment is: Normal. Recommend referral to [facility] for targeted u ltrasound to evaluate anatomy not well seen on this exam. anomalies may be present but not d etected. Dina Germain MD Obstetrics and Gynecology [facility] ? Mayra Kendall Allison CN IMG US ORDERABLES documented in this encounter Visit Diagnoses Diagnosis care in first trimester documented in this encounter Additional Health Concerns Assessment Noted Time PHQ-9 Depression Total Score: 10 02/02/2020 8:23 AM CD T documented as of this encounter Care Teams An/Ssn 2 4 Operator Relationship Specialty Start Date End Date Blank Lemos MD PCP - General Internal Medicine 04/22/[address] [place] [address] [place] R[place] [phone] Blank Lemos MD Assigned PCP 04/25/[address] [place] [address] [place] RENO [phone] documented as of this encounter
--- OUTSIDE RECORDS SUMMARY | 2022-05-29 10:56 | XMS_ITS | Encounter Summary ---
:1990 Author Organization [place] Address [facility] [place] [address] Care Team Providers Name Role Phone Blank Lemos MD Primary Care Provider Blank Lemos MD Unavailable Reason for Visit Reason Onset Date Comments Depression 02/02/2020 Anxiety 02/02/2020 Encounter Details Date Type Department Care Team Description 02/02/2020 Virtual Visit [facility] Blank Lemos Migraine without aura and without status migrainosus, not intractable (Primary Dx); Clinic Dev Camp MD Moderate episode of recurrent major depr essive disorder (H); [address] [place] [address] [facility] alized anxiety disorder; [facility] Bipolar I disorder (H) [address] [place] [address] [place] [phone] Social History Tobacco Use Types Packs/Day Years [...] Lemos MD - 02/02/2020 8:30 AM CDT [place] Nice to see you today. I agree with the Topamax wean you have started. I think it would be brower to stay on the Lexapro. Please don't use the imitrex or ambien. Continue with your ! Take care and good luck! Blank Lemos MD Internal Medicine/Pediatrics [facility] documented in this encounter Progress Notes Blank [...] her first . Took a break from [facility] for therapy, due to lost insurance, but not has insurance again and will contact [facility] to restart. Social History Tobacco Use ??? [...] well-groomed. Diagnostic Test Results: Labs reviewed in [facility] Assessment & Plan 1. Migraine without aura [...] good luck! Blank Lemos MD Internal Medicine/Pediatrics [facility] Return for appointment already scheduled with OB. Blank Lemos MD [facility] Video-Visit Details Type of service: Video Visit Video End Time:8:42am Originating Location (pt. Location): Home Distant Location (provider location): [facility] Platform used for Video Visit: [facility] Return for appointment already scheduled with OB. [...] as of this encounter Care Teams Sales Utility Representative Relationship Specialty Start Date End Date Blank Lemos MD PCP - General Internal Medicine 04/22/[address] [place] [address] [place] [phone] Blank Lemos MD Assigned PCP 04/25/[address] [place] [address] [place] [id number] documented as of this encounter
--- OUTSIDE RECORDS SUMMARY | 2022-05-29 10:56 | XMS_ITS | Encounter Summary ---
:1990 Author Organization [place] Address [address] [place] [address] Care Team Providers Name Role Phone Blank [...] documented as of this encounter Care Teams Jailer/Training Officer Relationship Specialty Start Date End Date Blank Lemos MD PCP - General Internal Medicine 04/22/[address] [place] [address] [place] [phone] Blank Lemos MD Assigned PCP 04/25/[address] [place] [address] [place] [phone] documented as of this encounter
--- OUTSIDE RECORDS SUMMARY | 2022-05-29 10:56 | XMS_ITS | Encounter Summary ---
:1988 Author Organization [place] Address [facility] [place] [address] Care Team Providers Name Role Phone Blank Lemos MD Primary Care Provider Blank Lemos MD Unavailable Reason for Visit Reason Comments Medication Refill Encounter Details Date Type Department Care Team Description 03/02/2020 Refill [facility] Blank Oliveros MD Medication Refill Dev [address] [facility] [address] [facility] [address] [address] [place] [address] [phone] Social History Tobacco Use Types Packs/Day Years [...] with OB. Blank Lemos MD Internal Medicine/Pediatrics [facility] Telephone Encounter - Margarita Lowry [...] documented as of this encounter Care Teams Polymer Materials Consultant Relationship Specialty Start Date End Date Blank Lemos MD PCP - General Internal Medicine 04/22/[address] [place] [address] [place] [phone] Blank Lemos MD Assigned PCP 04/25/[address] [place] [address] [place] [phone] documented as of this encounter
--- OUTSIDE RECORDS SUMMARY | 2022-05-29 10:56 | XMS_ITS | Encounter Summary ---
:1990 Author Organization [place] Address [facility] [place] [address] Care Team Providers Name Role Phone Blank Lemos MD Primary Care Provider Blank Lemos MD Unavailable Reason for Visit Reason Comments Care 21w 4d, discsuss SOB, sweati ng, gagging while eating, medications and itching hands for a couple d ays Encounter Details Date Type Department Care Team Description 05/21/2020 Office [facility] Kathleen Lacy Prur itus of in second trimester (Primary Dx); Visit [facility] CNM Encounter for supervision of normal firs t in second trimester; [place] [address] Anxiety during in second trimester, antepartum [address] [place], [place] [address] [address] [place], [place] [phone] [address] (Work) [phone] Social History Tobacco Use Types Packs/Day Years [...] moreno Follow up in 4wks or prn Kathleen Lacy APRN, YARELI documented in this encounter [...] Bile Acids 6 0 - 10 05/22/2020 [place] Total umol/L 3:36 PM CDT [facility] Comment: (Note) INTERPRETIVE INFORMATION: Bile Acids, To carlita Reference Interval applies to fasting sp ecimens. Performed By: [facility] [address] [place] [address] Burial Vault Maker: Annalise Hope MD Specimen Anatomical Collection Method Collection Time Receive d Time (Source) Location / / Volume Laterality Blood specimen 05/21/2020 9:56 AM 020 (specimen) CDT 10:01 AM CDT Kathleen [facility] - BLOOD ORDERABLES Performing Organization Address City/State/ZIP Code Phon e Number [facility] [address] [place], [place] [address] [address] (ABNORMAL) Comprehensive metabolic panel (BMP + Alb, Alk Phos, ALT, AST, Total. Bili, TP) (05/21/2020 9:56 AM CDT) Analysis Performed At [facility] Time Signature Sodium 139 133 - 144 05/22/2020 [place] mmol/L 7:24 AM CDT [facility] Potassium 4.0 3.4 - 5.3 05/22/2020 [place] mmol/L 7:24 AM CDT [facility] Chloride 108 94 - 109 05/22/2020 [place] mmol/L 7:24 AM CDT [facility] Carbon Dioxide 21 20 - 32 05/22/2020 [place] mmol/L 7:48 AM CDT [facility] Anion Gap 10 3 - 14 05/22/2020 [place] mmol/L 7:48 AM CDT [facility] Glucose 110 (H) 70 - 99 05/22/2020 [place] mg/dL 7:48 AM T [facility] Comment: Non Fasting Urea Nitrogen 5 (L) 7 - 30 mg/dL 05/22/2020 7:48 AM T [facility] Creatinine 0.58 0.52 - 1.04 mg/dL 05/22/2020 7:48 AM CD T [facility] GFR Estimate >90 >60 05/22/2020 7:48 AM CDT [facility] mL/min/{1.73_m2} [place] [facility] [place] Comment: Non GFR Calc Starting 07/27/2018, serum creatinine ba sed estimated GFR (eGFR) will be calculated using the Chronic Kidney Dise [facility] Epidemiology Collaboration (CKD-EPI) equation. GFR Estimate If >90 >60 mL/min/{1.73_m2} 05/22/2020 7: 48 AM [facility] Black T [facility] Comment: GFR Calc Starting 07/27/2018, serum creatinine ba sed estimated GFR (eGFR) will be calculated using the Chronic Kidney Dise ase Epidemiology Collaboration (CKD-EPI) equation. Calcium 8.9 8.5 - 10.1 05/22/2020 7:48 AM [place] C [facility] mg/dL CDT [facility] Bilirubin Total 0.2 0.2 - 1.3 05/22/2020 7:55 AM [facility] mg/dL CDT [facility] Albumin 2.6 (L) 3.4 - 5.0 g/dL 05/22/2020 7:55 AM [facility] CDT [facility] Protein Total 6.4 (L) 6.8 - 8.8 g/dL 05/22/2020 7:55 AM [facility] CDT [facility] Alkaline Phosphatase 73 40 - 150 U/L 05/22/2020 7:55 AM [facility] CDT [facility] ALT 18 0 - 50 U/L 05/22/2020 7:55 AM [facility] CDT [facility] AST 14 0 - 45 U/L 05/22/2020 7:55 AM [facility] CDT [facility] Specimen Anatomical Collection Method Collection Time Receive d Time (Source) Location / / Volume Laterality Blood specimen 05/21/2020 9:56 AM 020 (specimen) CDT 10:01 AM CDT Kathleen Lacy CNM LAB - BLOOD ORDERABLES Performing Organization Address City/State/ZIP Code Phon e Number [facility] [address] [place] [address] documented in this encounter Visit Diagnoses Diagnosis Pruritus of in second trimeste r - Primary Encounter for supervision of normal firs t in second trimester Supervision of normal first Anxiety during in second trime ster, antepartum documented in this encounter Additional Health Concerns Assessment Noted Time PHQ-9 Depression Total Score: 10 02/02/2020 8:23 AM CD T documented as of this encounter Care Teams Fibreglass Laminator Relationship Specialty Start Date End Date Blank Lemos MD PCP - General Internal Medicine 04/22/[address] [facility] [address] [place], [place] [address] Blank Lemos MD Assigned PCP 04/25/[address] [place] [address] documented as of this encounter
--- OUTSIDE RECORDS SUMMARY | 2022-05-29 10:56 | XMS_ITS | Encounter Summary ---
:1990 Author Organization [place] Address [address] [facility] [place] [address] Care Team Providers Name Role Phone Blank Lemos MD Primary Care Provider Blank Lemos MD Unavailable Reason for Referral Diagnostic Imaging Ultrasound (Routine) - Closed Specialty Diagnoses / Procedures Referred By Contact Refer red To Contact Diagnoses care in first trimester Mayra Cooper CNM Procedures US OB > [address] [place], [place] [address] Referral ID Status Reason Start Date Expiration Date Visits Requ ested Visits Authorized [id number] Closed 03/27/2020 03/27/2021 1 1 Reason for Visit Reason Comments Care 13w 5d, still having some he adaches, nausea is better Encounter Details Date Type Department Care Team Description [facility] YARELI Kendall first trimester [place] [address] (Primary Dx) [address] [place], [place] [address] [address] [place], [place] [phone] (Work) [phone] Social History Tobacco Use Types Packs/Day Years [...] Body Mass Index 39.33 07/15/2019 2:56 PM INSIDE STEWARD/STEWARDESS documented in this encounter Progress Notes Mayra Cooper CNM - 03/27/2020 9:30 AM CDT Feeling well. Baby is active. Denies any leaking of fluid, vaginal bleeding, regular uterine contractions, or headaches or other concerns. Discussed anatomy US. Ordered for 5-6 weeks. Can do the CNM appt the same day or virtually. Reviewed to call [phone] for contractions, loss of fluid, vaginal bleeding, decreased movement or any other questions or concerns. RTC in 4 weeks. Mayra Cooper DNP, RENTAL AGENT, MARLENYM documented in this encounter Nursing Notes Luz [...] Laterality Volume Narrative 05/01/2020 11:40 AM CDT [facility] Obstetrics and Gynecology ?? ULTRASOUND - [...] fluid assessment is: Normal. Recommend referral to [facility] for targeted u ltrasound to evaluate anatomy not well seen on this exam. anomalies may be present but not d etected. Dina Germain MD Obstetrics and Gynecology [facility] ? Mayra Kendall Allison [facility] US ORDERABLES documented in this encounter Visit Diagnoses Diagnosis care in first trimester - Prima ry care in first trimester documented in this encounter Additional Health Concerns Assessment Noted Time PHQ-9 Depression Total Score: 10 02/02/2020 8:23 AM CD T documented as of this encounter Care Teams Mapping Specialist Relationship Specialty Start Date End Date Blank Lemos MD PCP - General Internal Medicine 04/22/18 [address] [facility] [place] [phone] Blank Lemos MD Assigned PCP 04/25/18 [address] [facility] [place] R[place] [phone] documented as of this encounter
--- OUTSIDE RECORDS SUMMARY | 2022-05-29 10:56 | XMS_ITS | Encounter Summary ---
:1988 Author Organization [place] Address [address] [place] [address] Care Team Providers Name Role Phone Blank [...] documented as of this encounter Care Teams Automotive Dismantler Relationship Specialty Start Date End Date Blank Lemos MD PCP - General Internal Medicine 04/22/[address] [place] [address] [place] [phone] Blank Lemos MD Assigned PCP 04/25/[address] [place] [address] [place] [phone] documented as of this encounter
--- OUTSIDE RECORDS SUMMARY | 2022-05-29 10:56 | XMS_ITS | Encounter Summary ---
:1988 Author Organization [place] Address [facility] [place] [address] Care Team Providers Name Role Phone Blank Lemos MD Primary Care Provider Blank Lemos MD Unavailable Reason for Referral Diagnostic Imaging Other (Routine) - Closed Specialty Diagnoses / Procedures Referred By Contact Refer red To Contact Diagnoses Encounter for supervision of normal first in second trimester Soledad Jones CNM [facility] [address] [place] [address] [place] [address] Phone: Referral ID Status Reason Start Date Expiration Date Visits Requ ested Visits Authorized [id number] Closed 05/01/2020 05/01/2021 1 1 Encounter Details Date Type Department Care Team Description 05/01/2020 Orders [facility] Soledad Jones [facility] supervision of normal [place] [address] first in [address] [place], [place] second [place]imes [place] [address] (Primary Dx) [address] [place] [address] Social History Tobacco Use Types [...] documented as of this encounter Care Teams Currency Machine Operator Relationship Specialty Start Date End Date Blank Lemos MD PCP - General Internal Medicine 04/22/18 [address] [facility] [place] [address] Blank Lemos MD Assigned PCP 04/25/18 [address] [facility] [place] [address] documented as of this encounter
--- OUTSIDE RECORDS SUMMARY | 2022-05-29 10:56 | XMS_ITS | Encounter Summary ---
:1990 Author Organization [place] Address [facility] [place] [address] Care Team Providers Name Role Phone Blank Lemos MD Primary Care Provider Blank Lemos MD Unavailable Reason for Visit Reason Comments Care 17w 5d, c/o left wrist pain and increase of migraines Encounter Details Date Type Department Care Team Description 04/24/2020 Office [facility] Kathleen Lacy Enco unter for supervision of normal first in second trimester (Primary Dx); Visit [facility] CNM Headache in , antepartum, secon d trimester; [place] [address] Carpal tunnel syndrome of le ft wrist [address] [place], [place] [address] [address] [place], [place] [phone] [address] (Work) [phone] Social History Tobacco Use Types Packs/Day Years [...] bent back when typing. ?? You may use??wsqz-ewy-govwepn pain medicine to treat pain and inflammation, [...] or weak Date Last Reviewed: 12/08/2017 ?? [id number] [employer]. [address] [place] [address], [place] [address]. All rights reserved. This information is not [...] documented as of this encounter Care Teams Drying Rack Changer Relationship Specialty Start Date End Date Blank Lemos MD PCP - General Internal Medicine 04/22/[address] [place] [address] [place] [phone] Blank Lemos MD Assigned PCP 04/25/[address] [place] [address] [place] R[place] [phone] documented as of this encounter
--- OUTSIDE RECORDS SUMMARY | 2022-05-29 10:56 | XMS_ITS | Encounter Summary ---
:1988 Author Organization [place] Address [facility] [place] [address] Care Team Providers Name Role Phone Blank Lemos MD Primary Care Provider Blank Lemos MD Unavailable Reason for Visit Diagnostic Imaging Ultrasound (Routine) - Closed Specialty Diagnoses / Procedures Referred By Contact Refer red To Contact Diagnoses Bleeding in early Faiza Reyes CNM Procedures US OB <14 Weeks w Transvaginal Single US OB < 14 Weeks [address] [place], [place] [address] Referral ID Status Reason Start Date Expiration Date Visits Requ ested Visits Authorized [id number] Closed 02/01/2020 01/31/2021 1 1 Encounter Details Date Type Department Care Team Description 02/20/[address] [facility] Ble eding in early [place] [address] [facility] [address] [place] [address] Social History Tobacco Use [...] Dr. Lora Ward MD Obstetrics and Gynecology [facility] ? Kely and Dev ?? Narrative 02/22/2020 7:31 PM CDT 02/20/2020 11:40 AM ? [facility] Obstetrics & Gynecology [address] [place] [address] ULTRASOUND - OB < 14 Weeks ?? [...] documented as of this encounter Care Teams Hide Grader Relationship Specialty Start Date End Date Blank Lemos MD PCP - General Internal Medicine 04/22/[address] [place] [address] K[place] RENO [phone] Blank Lemos MD Assigned PCP 04/25/18 [address] [facility] [place] [phone] documented as of this encounter
--- OUTSIDE RECORDS SUMMARY | 2022-05-29 10:56 | XMS_ITS | Encounter Summary ---
:1990 Author Organization [place] Address [facility] [place] [address] Care Team Providers Name Role Phone Blank Lemos MD Primary Care Provider Blank Lemos MD Unavailable Encounter Details Date Type Department Care Team Description 02/20/2020 [facility] Only [facility] linda for supervision [facility] y of normal first [address] [place] [address] Social History Tobacco Use Types Packs/Day [...] type and screen (02/20/2020 9:09 AM CDT) [facility] Method Time Signature ABO O 02/20/2020 [place] 5:05 PM T [facility] RH(D) Pos [facility] Antibody Neg 02/20/2020 [place] Screen 5:05 PM T [facility] Test Valid [place] 02/20/2020 [place] Only At [facility] 5:02 PM CDT [facility] Specimen 02/23/2020 02/20/2020 [facility] Expires 5:02 PM T [facility] Specimen Anatomical Collection Method Collection Time Receive d Time (Source) Location / / Volume Laterality Blood specimen 02/20/2020 9:09 AM 020 9:10 (specimen) CDT AM CDT [facility] - BLOOD BANK TEST ORDER Performing Organization Address City/[facility]/ZIP Code Phon e Number [facility] [address] [place], [place] [address] [facility] [address] [place], [place] [address] [place] [address] Hepatitis B surface antigen (02/20/2020 9:08 AM CDT) [facility] Method Time Signature Hep B Surface Nonreactive NR^Nonrea 02/21/2020 [facility] 9:57 AM CDT [facility] Specimen Anatomical Collection Method Collection Time Receive d Time (Source) Location / / Volume Laterality Blood specimen 02/20/2020 9:08 AM 020 9:13 (specimen) CDT AM CDT [facility] - BLOOD ORDERABLES Performing Organization Address City/State/ZIP Code Phon e Number [id number] [place] [address] (ABNORMAL) CBC with platelets (02/20/2020 9:08 AM CDT) [facility] Method Time Signature WBC 11.3 (H) 4.0 - 11.0 02/20/2020 [facility] 10e9/L 10:39 AM CDT [facility] RBC Count 4.20 3.8 - 5.2 02/20/2020 [facility] 10e12/L 10:39 AM CDT [facility] Hemoglobin 12.9 11.7 - 02/20/2020 [facility] 15.7 g/dL 10:39 AM CDT [facility] Hematocrit 39.7 35.0 - 02/20/2020 [facility] 47.0 % 10:39 AM CDT [facility] MCV 95 78 - 100 02/20/2020 [facility] fl 10:39 AM CDT [facility] MCH 30.7 26.5 - 02/20/2020 [facility] 33.0 pg 10:39 AM CDT [facility] MCHC 32.5 31.5 - 02/20/2020 [place] 36.5 g/dL 10:39 AM CDT [facility] RDW 13.4 10.0 - 02/20/2020 [place] 15.0 % 10:39 AM CDT [facility] Platelet Count 350 150 - 450 02/20/2020 [place] 10e9/L 10:39 AM CDT [facility] Specimen Anatomical Collection Method Collection Time Receive d Time (Source) Location / / Volume Laterality Blood specimen 02/20/2020 9:08 AM 020 9:13 (specimen) CDT AM CDT [facility] - BLOOD ORDERABLES Performing Organization Address City/State/ZIP Code Phon e Number [facility] [address] [place], [place] [address] [address] HIV Antigen Antibody Combo (02/20/2020 9:08 AM CDT) Patholo gist Method Time Signature HIV Antigen Nonreactive NR^Nonrea 02/21/2020 [facility] Antibody ctive 9:57 AM CDT [facility] Comment: HIV-1 p24 Ag & HIV-1/HIV-2 Ab N ot Detected Specimen Anatomical Collection Method Collection Time Receive d Time (Source) Location / / Volume Laterality Blood specimen 02/20/2020 9:08 AM 020 9:13 (specimen) CDT AM CDT [facility] Reyes CNM LAB - BLOOD ORDERABLES Performing Organization Address City/State/ZIP Code Phon e Number [facility] [address] [place] [address] [facility] Rubella Antibody IgG Quantitative (02/20/2020 9:08 AM CDT) Analysis Performed At Patho logist Time Signature Rubella Antibody 20 IU/mL 02/21/2020 [place] [facility] IgG Quantitative 11:12 AM CDT [facility] Comment: Positive. ??Suggests previous exposure o r immunization and probable immunity Reference Range: ??Unvaccinated Negative 0-7 IU/mL Vaccinated or previous exposure Positive 10 IU/ml or greater Specimen Anatomical Collection Method Collection Time Receive d Time (Source) Location / / Volume Laterality Blood specimen 02/20/2020 9:08 AM 020 9:13 (specimen) CDT AM CDT [facility] Reyes CNM LAB - BLOOD ORDERABLES Performing Organization Address City/[facility]/ZIP Code Phon e Number [address] [address] [facility] Treponema Abs w Reflex to RPR and Titer (02/20/2020 9:08 AM CDT) [facility] Method Time Signature Treponema Nonreactive NR^Nonrea 02/21/2020 [facility] ctive 9:37 AM CDT [facility] Comment: Methodology Change: Test performed on e DiaSorin Liaison XL by Treponema pallidum Total Antibodies Assay as of . Specimen Anatomical Collection Method Collection Time Receive d Time (Source) Location / / Volume Laterality Blood specimen 02/20/2020 9:08 AM 020 9:13 (specimen) CDT AM CDT [facility] - BLOOD ORDERABLES Performing Organization Address City/[facility]/ZIP Code Phon e Number [address] [address] [facility] Urine Culture Aerobic Bacterial (02/20/2020 9:08 AM CDT) [facility] Method Time Signature Specimen Midstream INFECTIOUS Description [...] MICRO GENERAL ORDERABL ES Performing Organization Address City/[facility]/ZIP Code Phon e Number INFECTIOUS DISEASES [address] [place] [address] [facility], [facility] INFECTIOUS DISEASES [address] [place] [address], [place] [facility] documented in this encounter Visit Diagnoses Diagnosis Encounter for supervision of normal firs t in first trimester Supervision of normal first documented in this encounter Additional Health Concerns Assessment Noted Time PHQ-9 Depression Total Score: 10 02/02/2020 8:23 AM CD T documented as of this encounter Care Teams Ceramic Tile Installation Helper Relationship Specialty Start Date End Date Blank Lemos MD PCP - General Internal Medicine 04/22/18 [address] [facility] KISHAN RENO [phone] Blank Lemos MD Assigned PCP 04/25/18 [address] [facility] KISHAN RENO [phone] documented as of this encounter
--- OUTSIDE RECORDS SUMMARY | 2022-05-29 10:56 | XMS_ITS | Encounter Summary ---
:1990 Author Organization [place] Address [facility] [place] [address] Care Team Providers Name Role Phone Blank Lemos MD Primary Care Provider Blank Lemos MD Unavailable Reason for Referral Diagnostic Imaging Ultrasound (Routine) - Closed Specialty Diagnoses / Procedures Referred By Contact Refer red To Contact Diagnoses related condition, antepartum Soledad Tracey CNM Procedures [facility] [address] [place] [address] Referral ID Status Reason Start Date Expiration Date Visits Requ ested Visits Authorized [id number] Closed 05/01/2020 05/01/2021 1 1 Encounter Details Date Type Department Care Team Description 05/01/2020 Transcribe Orders [facility] Robert, Pregn graciela related Maternal YARELI Rowe condition, Medicine Center [address] antepartum (Primary [facility] Dx) [address] [place], [place] [address] [address] [place], [place] [phone] [address] (Work) [phone] Social History Tobacco Use Types Packs/Day Years [...] on filedocumented as of this encounter Results [facility] US Comprehensive Single (05/11/2020 10:21 AM [...] Study Date : 05/11/2020 9:20am Pat. NO: [id number] Referring ??MD: JULIO TRACEY Site: [facility] Owner Operator Tanker Truck Driver: Moraima Keita RD MS : 1990 Age: [...] lb 13 ? oz EFW by ?Hadlock ([id number]) Head / Face / Neck Biometry: Transformer Inspector ? 7.5 ? mm CM ?3.7 ? [...] cava. Inferior vena cava. 3-vessel ? view. 9-lxktza-pmnlmmw view. Cardiac position. Cardiac size. Cardiac rhythm. [...] Pat. Name:Noemi RESENDIZ Date: 9:20am Pat. NO: [id number] MD:SOL[place]AD [place] [facility]:Moraima Keita RDMS :1990Age:30 INDICATION Suboptimal heart anatomy [...] 0 lb 13 oz EFW by Hadlock ([id number]) Head / Face / Neck Biometry: Transformer Inspector 7.5 mm CM 3.7 mm Nasal bone [...] vena cava. Inferior vena cava. 3-vessel view. 8-xxaret-dzimipn view. Cardiac po sition. Cardiac size. Cardiac [...] the cervix appears long and closed. Soledad Robert [facility] US ORDERABLES documented in this encounter Visit Diagnoses Diagnosis related condition, antepartum - Primary related condition, antepartum documented in this encounter Additional Health Concerns Assessment Noted Time PHQ-9 Depression Total Score: 10 02/02/2020 8:23 AM CD T documented as of this encounter Care Teams Core Drill Operator Relationship Specialty Start Date End Date Blank Lemos MD PCP - General Internal Medicine 04/22/[address] [place] [address] K[place]AN R[place] [phone] Blank Lemos MD Assigned PCP 04/25/[address] [place] [address] KISHAN RENO [phone] documented as of this encounter
--- OUTSIDE RECORDS SUMMARY | 2022-05-29 10:56 | XMS_ITS | Encounter Summary ---
:1990 Author Organization [place] Address [facility] [place] [address] Care Team Providers Name Role Phone Blank Lemos MD Primary Care Provider Blank Lemos MD Unavailable Reason for Visit Reason Comments Colposcopy 15 weeks Encounter Details Date Type Department Care Team Description 04/09/2020 Office Visit [facility] Sharita Frias ASCUS wi th positive [facility] MD Blu high risk HPV cervical [place] [id number] [place] [address] (Primary Dx) [address] [place], [place] [address] [address] [place], [place] (Work) [address] [phone] Social History Tobacco Use Types Packs/Day Years [...] encounter Progress Notes Sharita Frias MD - 04/09/2020 1:30 PM CDT Colposcopy [...] +HR HPV, not 16/18. Plan colp 10/07/18 [place]- No lesions seen, no Bx taken. Plan [...] Procedure Name Priority Date/Time Associated Diagnosis [facility] HC COLP CERVIX/UPPER Routine 04/09/2020 1:59 PM [...] documented as of this encounter Care Teams Automatic Outsole Cutter Relationship Specialty Start Date End Date Blank Lemos MD PCP - General Internal Medicine 04/22/[address] [place] [address] [place] R[place] [phone] Blank Lemos MD Assigned PCP 04/25/[address] [place] [address] K[place] R[place] [phone] documented as of this encounter
--- OUTSIDE RECORDS SUMMARY | 2022-05-29 10:56 | XMS_ITS | Encounter Summary ---
:1990 Author Organization [place] Address [facility] [place] [address] Care Team Providers Name Role Phone Blank Lemos MD Primary Care Provider Blank Lemos MD Unavailable Reason for Visit Reason Comments Ultrasound L2-subopt anatomy on outside scan Encounter Details Date Type Department Care Team Description 05/09/2020 PRE VISIT [facility] Eliza Lux, UNRULY Ultra sound (L2-subopt Maternal Medicine guillermina harjeet on outside scan) [facility] [address] [facility] [address] [place] [address] Social History Tobacco Use [...] documented as of this encounter Care Teams Front End Web Developer Relationship Specialty Start Date End Date Blank Lemos MD PCP - General Internal Medicine 04/22/[address] [place] [place] [address] [place] [phone] Blank Lemos MD Assigned PCP 04/25/[address] [place] [place] [address] K[place] R[place] [phone] documented as of this encounter
--- OUTSIDE RECORDS SUMMARY | 2022-05-29 10:56 | XMS_ITS | Encounter Summary ---
:1990 Author Organization [place] Address [address] [place] [address] Care Team Providers Name Role Phone Blank [...] as of this encounter Care Teams Physical Optics Teacher Relationship Specialty Start Date End Date Blank Lemos MD PCP - General Internal Medicine 04/22/[address] [place] [address] KISHAN RENO [phone] Blank Lemos MD Assigned PCP 04/25/[address] [place] [address] [place] [phone] documented as of this encounter
--- OUTSIDE RECORDS SUMMARY | 2022-05-29 10:56 | XMS_ITS | Encounter Summary ---
:1990 Author Organization [place] Address [address] [place] [address] Care Team Providers Name Role Phone Blank [...] documented as of this encounter Care Teams Logistician Relationship Specialty Start Date End Date Blank Lemos MD PCP - General Internal Medicine 04/22/[address] [place] [address] KISHAN RENO [phone] Blank Lemos MD Assigned PCP 04/25/[address] [place] [address] K[place] RENO [phone] documented as of this encounter
--- OUTSIDE RECORDS SUMMARY | 2022-05-29 10:56 | XMS_ITS | Encounter Summary ---
:1990 Author Organization [place] Address [address] [place] [address] Care Team Providers Name Role Phone Blank [...] documented as of this encounter Care Teams Bristle Machine Operator Relationship Specialty Start Date End Date Blank Lemos MD PCP - General Internal Medicine 04/22/[address] [place] [address] KISHAN RENO [phone] Blank Lemos MD Assigned PCP 04/25/[address] [place] [address] K[place] R[place] [phone] documented as of this encounter
--- OUTSIDE RECORDS SUMMARY | 2022-05-29 10:56 | XMS_ITS | Encounter Summary ---
:1990 Author Organization [place] Address [address] [place] [address] Care Team Providers Name Role Phone Blank [...] as of this encounter Care Teams Supervisor [employer] Relationship Specialty Start Date End Date Blank Lemos MD PCP - General Internal Medicine 04/22/[address] [place] [address] K[place]AN RENO [phone] Blank Lemos MD Assigned PCP 04/25/[address] [place] [address] K[place] RENO [phone] documented as of this encounter
--- OUTSIDE RECORDS SUMMARY | 2022-05-29 10:56 | XMS_ITS | Encounter Summary ---
:1990 Author Organization [place] Address [address] [place] [address] Care Team Providers Name Role Phone Blank [...] documented as of this encounter Care Teams Food Products Sales Representative Relationship Specialty Start Date End Date Blank Lemos MD PCP - General Internal Medicine 04/22/[address] [place] [address] KISHAN RENO [phone] Blank Lemos MD Assigned PCP 04/25/[address] [place] [address] KISHAN RENO [phone] documented as of this encounter
--- OUTSIDE RECORDS SUMMARY | 2022-05-29 10:56 | XMS_ITS | Encounter Summary ---
:1990 Author Organization [place] Address [facility] [place] [address] Care Team Providers Name Role Phone Blank Lemos MD Primary Care Provider Blank Lemos MD Unavailable Reason for Visit Reason Onset Date Comments Results 02/08/2020 Encounter Details Date Type Department Care Team Description 02/08/2020 Telephone [facility] Women's Ryann poon, Faiza Rodriguez, YARELI Results [facility] [place] [address] [place] [address] [facility] [address] [place] [address] [phone] Social History Tobacco Use Types Packs/Day Years [...] documented as of this encounter Care Teams Aircraft Maintenance Instructor Relationship Specialty Start Date End Date Blank Lemos MD PCP - General Internal Medicine 04/22/[address] [place] [address] K[place] R[place] [phone] Blank Lemos MD Assigned PCP 04/25/[address] [place] [address] K[place] RENO [phone] documented as of this encounter
--- OUTSIDE RECORDS SUMMARY | 2022-05-29 10:56 | XMS_ITS | Encounter Summary ---
:1990 Author Organization [place] Address [facility] [place] [address] Care Team Providers Name Role Phone Blank Lemos MD Primary Care Provider Blank Lemos MD Unavailable Reason for Visit Reason Comments Ultrasound L2- subopt anatomy on outsid e screen Encounter Details Date Type Department Care Team Description 05/11/2020 Office Visit [facility] Stevan Jones nn, CN [address] [place] [address] related Maternal Ana Danielle MD [address] [place], [place] [address] condition, antepartum [facility] Center (Primary Dx) [place] [address] [facility] [address] [place] [address] Social History Tobacco Use Types [...] documented as of this encounter Care Teams News Director Relationship Specialty Start Date End Date Blank Lemos MD PCP - General Internal Medicine 04/22/[address] [place] [address] K[place] RENO [phone] Blank Lemos MD Assigned PCP 04/25/[address] [place] [address] KISHAN RENO [phone] documented as of this encounter
--- OUTSIDE RECORDS SUMMARY | 2022-05-29 10:56 | XMS_ITS | Encounter Summary ---
:1990 Author Organization [place] Address [facility] [place] [address] Care Team Providers Name Role Phone Blank Lemos MD Primary Care Provider Blank Lemos MD Unavailable Reason for Visit Reason Comments Care 9w 1d, c/o nausea and vomite d for first time last night Encounter Details Date Type Department Care Team Description 02/24/2020 Office [facility] Faiza Reyes for supervision of normal first in first trimester (Primary Dx); Visit [facility] YARELI Rodriguez BMI 45.0-49.9, adult (H); Nursery [id number] [place] [address] Pap smear for cervical cance r screening [address] [facility], [facility] [address] [place] [id number] [place] [address] [phone] (Work) [phone] Social History Tobacco Use Types Packs/Day Years [...] Body Mass Index 38.26 07/15/2019 2:56 PM ENVIRONMENTAL GEOLOGIST documented in this encounter Patient Instructions Patient InstructionsFaiza Reyes CNM - 02/24/2020 9:00 AM CDT Thank you for coming to see the Midwives at the [facility] ?? We will notify you about your labs that were drawn today once we get the results back or if you have Groopiehart they will be posted there as well [...] next visit, you can reach the nurse wedding designer cottonseed meat presser by calling our pager number [phone]. ?? If you wish to schedule another appointment, please call our office at [phone]. You can alsomake appointments through MailLift ?? If you have a medical emergency please call 911. Because you are , we have additional resources for you: ?? You may call our consulting RN's during normal business hours for non-urgent questions about yourpregnancy. ?? After hours you may also page the wedding designer cottonseed meat presser for urgent questions or issues at [phone].There is always a wedding designer cottonseed meat presser 24 hours a day. Reminders: Before 14 [...] Secure access to your medical record: Use Turbocoatingt (secure email communication and access to your chart) to send your primary care providera message or make an appointment. Ask someone on your Team how to sign up for Studyplaces. To log on to Crowdasaurus or for more information in Studyplaces please visit the website at [email or web address]. Certified Nurse Spool Worker (CNM) Team Faiza Reyes APRN, YARELI Rendon APRN, YARELI Ingram APRN, YARELI Jones APRN, YARELI Again, thank you for choosing the midwives at [facility]. We are excited to be a part of your . Please let us know how we can best partner with you to improve your and your family's health. documented in this encounter Progress Notes Faiza Reyes CNM - 02/24/2020 9:00 AM CDT Rena [...] PAP: 2019 History of abnormal Pap? Yes: [facility] Health maintenance updated: yes Current medications are: [...] file Gets together: Not on file Attends islam service: Not on file Active member of club or organization: Not on file Attends meetings of clubs or organizations: Not on file Relationship status: Not on file ??? Intimate partner violence Fear of current or ex partner: Not on file Emotionally abused: Not on file Physically abused: Not on file Forced sexual activity: Not on file Other Topics Concern ??? Parent/sibling w/ CABG, AR or angioplasty before 65F 55M? 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 Smokes 3 cigs per day down [...] found, no interventions. Pt thinks this happened [id number] ??? TONSILLECTOMY FAMILY HISTORY Family History Problem [...] tenderness or inflammation. Perineum without lesions. VAGINA: Vidalia, normal rugae and discharge. CERVIX: Anterior, smooth, [...] of triage nurse line and contacting the cottonseed meat presser CNM after hours in an emergency. ?? Symptoms of N&V and fatigue usually start to resolve around 12-16 weeks ?? Reviewed CNM philosophy, call schedule for labor and delivery, and [facility] for delivery ?? 1st OB handout given [...] desire a RN home visit from the [facility]? No If yes, paperwork completed? No F/U to be addressed next visit: Nausea and vomiting, Rx's given, referrals Will return to the clinic in 4 weeks for her next routine check. Will call to be seen sooner if problems arise. Faiza Reyes APRN, CNM documented in this encounter Nursing Notes Luz Maria Abreu - 02/24/2020 9:00 AM CDT Chief Complaint [...] Signature TSH 2.05 0.40 - 4.00 02/25/2020 [facility] mU/L 12:[address] [facility] Specimen Anatomical Collection Method Collection Time Receive d Time (Source) Location / / Volume Laterality Blood specimen 02/24/2020 9:47 AM 020 9:52 (specimen) CDT AM CDT Faiza Reyes CNM LAB - BLOOD ORDERABLES Performing Organization Address City/State/ZIP Code Phon e Number [facility] [address] [place] [address] Hemoglobin A1c (02/24/2020 9:47 AM CDT) athologist Signature Hemoglobin A1C 5.2 0 - 5.6 % 02/24/2020 [place] 2:13 PM CDT [facility] Comment: Normal <5.7% Prediabetes 5.7-6.4% ??Diab etes 6.5% or higher - adopted from ADA consensus guidelines. Specimen Anatomical Collection Method Collection Time Receive d Time (Source) Location / / Volume Laterality Blood specimen 02/24/2020 9:47 AM 020 9:52 (specimen) CDT AM CDT Faiza Reyes [facility] LAB - BLOOD ORDERABLES Performing Organization Address City/State/ZIP Code Phon e Number [facility] [address] [place], [place] [address] [address] (ABNORMAL) Pap imaged thin layer screen with HPV - recommended age 30 - 65 years (select HPV order below) (02/24/2020 9:35 AM CDT) Component Value Ref Test Analysis Performed At [facility] Range Method Time Signature PAP ASC-US (A) COPATH Copath Report COPATH Patient Name: RENA RESENDIZ MR#: [id number] Specimen #: [id number] Collected: 02/24/2020 Received: 02/27/2020 Reported: 02/29/2020 16:35 Ordering Phy(s): SUKHWINDER CHRISTINA For improved result formatting, select 'View Enhanced [...] other cancer s. COLLECTION SITE: Client: ??[facility] Location: RIOB (R) The technical component of this testing was completed at the [facility], with the professional compo nent performed at the [facility], [address], [place], [place] [phone] ([phone]) Specimen (Source) Anatomical Collection Method Collection Time Re ceived Time Location / / Volume Laterality Cytologic 02/24/2020 9:35 02/27/2020 7 :32 material AM CDT AM CDT (specimen) Faiza FARMER [facility] - OPTIME CLINICAL SPECIM EN Performing Organization Address City/State/ZIP Code Phon e Number [place] (ABNORMAL) HPV High Risk Types DNA Cervical (02/24/2020 9:30 AM CDT) [facility] gist Method Time Signature HPV Source SurePath 02/24/2020 [place] 9:35 AM CDT [facility] HPV 16 DNA Negative NEG^Negat 03/05/2020 [facility] [place] 6:46 AM CDT [facility] HPV 18 DNA Negative NEG^Negat 03/05/2020 [facility] [place] 6:46 AM CDT [facility] Other HR HPV Positive (A) NEG^Negat 03/05/2020 [facility] [place] 6:46 AM CDT [facility] Final This patient's sample is pos itive for other HR HPV DNA (types 31, 33, 35, 39, 45, 51, 52, 03/05/2020 [facility] 56, 58, 59, 66 or 68), not H PV 16 or HPV 18 DNA. This result requires clinical correlation 6:46 AM CDT [facility] with concurrent cytology findings. [facility] Comment: This test was developed and its performa nce characteristics determined by the [facility], Molecular Diagnostics Laboratory. It has not been [...] Cervical Cells 02/24/2020 9:3 5 AM CDT [facility] Comment: [id number] Specimen Anatomical Collection Method Collection Time Receive d Time (Source) Location / / Volume Laterality Cervical Cells CERVIX UTERI 02/24/2020 9:30 AM 020 3:22 STRUCTURE / CDT PM CDT Unknown Faiza Reyes CNM LAB - BLOOD ORDERABLES Performing Organization Address City/[facility]/ZIP Code Phon e Number [address] [address] [place] [address] [address] [place] [address] [address] CHLAMYDIA TRACHOMATIS PCR (02/24/2020 9:30 AM CDT) [facility] Method Time Signature Specimen Vagina 02/24/2020 [place] Description 2:41 PM CDT [facility] Chlamydia Negative NEG^Negat 02/26/2020 INFECTIOUS Trachomatis PCR [place] 2:30 PM CDT [facility] Comment: Negative for C. trachomatis rRNA by hoffman scription mediated amplification. A negative result by dip painter media logan amplification does not preclude the presence of C. trachomatis infection because results are dependent on proper and adequate collection, absence of inhibitors, and sufficient rRNA to be detected. Specimen Anatomical Collection Method Collection Time Receive d Time (Source) Location / / Volume Laterality Specimen from 02/24/2020 9:30 AM 02/24/20 20 2:40 vagina CDT PM CDT (specimen) Faiza Reyes CNM LAB - MICRO GENERAL ORDERABL ES Performing Organization Address City/State/ZIP Code Phon e Number [facility] [address] [place] [address] DIAGNOSTIC LABORATORY, [facility] [address] [place] [address] [facility] 180 INFECTIOUS DISEASES [address] [place] [address], A DIAGNOSTIC LABORATORY NEISSERIA GONORRHOEA PCR (02/24/2020 9:30 AM CDT) Analysis Performed At Patho logist Time Signature Specimen Vagina 02/24/2020 [place] Descrip 2:41 PM CDT [facility] N Gonorrhea Negative NEG^Negati 02/26/2020 INFECTIOUS PCR ve 2:30 PM CDT [facility] Comment: Negative for N. gonorrhoeae rRNA by hoffman scription mediated amplification. A negative result by dip painter media logan amplification does not preclude the presence of N. gonorrhoeae infection because results are dependent on proper and adequate collection, absence of inhibitors, and sufficient rRNA to be detected. Specimen Anatomical Collection Method Collection Time Receive d Time (Source) Location / / Volume Laterality Specimen from 02/24/2020 9:30 AM 02/24/20 20 2:40 vagina CDT PM CDT (specimen) Faiza Reyes CNM LAB - MICRO GENERAL ORDERABL ES Performing Organization Address City/State/ZIP Code Phon e Number INFECTIOUS DISEASES [address] [place] [address] DIAGNOSTIC LABORATORY, [facility] [address] [place] [address] [facility] 180 INFECTIOUS DISEASES [address] [place] [address], A DIAGNOSTIC LABORATORY documented in this encounter [...] documented as of this encounter Care Teams Central Sterile Technician Relationship Specialty Start Date End Date Blank Lemos MD PCP - General Internal Medicine 04/22/[address] [place] [address] [place] [address] Blank Lemos MD Assigned PCP 04/25/18 [address] [facility] [address] [place], [place] [address] documented as of this encounter
--- OUTSIDE RECORDS SUMMARY | 2022-05-29 10:57 | XMS_ITS | Encounter Summary ---
:1990 Author Organization [place] Address [facility] [place] [address] Care Team Providers Name Role Phone Blank eLmos MD Primary Care Provider Blank Lemos MD Unavailable Hardeep Cárdenas Unavailable Unavailable Reason for Visit Reason Comments Medication Refill Encounter Details Date Type Department Care Team Description 09/11/2019 Refill [facility] Blank Oliveros MD Medication Refill Dev [address] [facility] [address] [facility] [place] [address] [address] [address] [place] [address] [phone] Social History Tobacco Use Types Packs/Day Years Used Date Smoking Tobacco: Every Day Cigarettes 0.3 8 Smokeless Tobacco: Never Alcohol Use Standard Drinks/Week [...] ALEJANDRO MA on 09/12/2019 at 5:38 PM GROUNDS CHECKER Telephone Encounter - Blank Lemos MD - 09/12/2019 3:12 PM CST Refilled x 3 months. Needs yearly appt before any additional refills after this. Please help her schedule physical plus within the next 3 months. Blank Lemos MD Internal Medicine/Pediatrics [facility] GROUNDS CHECKER Telephone Encounter - Tia Floyd RN - [...] No positive test in last 12 months GROUNDS CHECKER documented in this encounter Plan of Treatment Not on filedocumented as of this encounter Visit Diagnoses Diagnosis Migraine without aura and without status migrainosus, not intractable Migraine without aura, without mention o f intractable migraine without mention of status migrainosus documented in this encounter Additional Health Concerns Assessment Noted Time PHQ-9 Depression Total Score: 4 09/22/2018 3:08 PM DUMP GROUNDS CHECKER documented as of this encounter Care Teams Automotive Glass Technician Relationship Specialty Start Date End Date Blank Lemos, PCP - General Internal Medicine [facility]18 [facility] [place] [address] Blank Lemos, Assigned PCP 04/25/18 MD Zarate [facility] [place] [phone] Hardeep Cárdenas Personal Advocate & 06/17/1901/30 Liaison (PAL) documented as of this encounter
--- OUTSIDE RECORDS SUMMARY | 2022-05-29 10:57 | XMS_ITS | Encounter Summary ---
:1990 Author Organization [place] Address [address] [place] [address] Care Team Providers Name Role Phone Blank [...] documented as of this encounter Care Teams Project Manager Relationship Specialty Start Date End Date Blank Lemos, PCP - General Internal Medicine 04/22/[address] [place] [address] [place] [address] Blank Lemos, Assigned PCP 04/25/18 [facility] [place] [address] Hardeep Cárdenas Personal Advocate & 06/17/1901/30 Liaison (PAL) documented as of this encounter
--- OUTSIDE RECORDS SUMMARY | 2022-05-29 10:57 | XMS_ITS | Encounter Summary ---
:1988 Author Organization [place] Address [facility] [place] [address] Care Team Providers Name Role Phone Blank Lemos MD Primary Care Provider Blank Lemos MD Unavailable Hardeep Cárdenas Unavailable Unavailable Reason for Visit Reason Comments Medication Refill escitalopram (LEXAPRO) 20 MG tablet Encounter Details Date Type Department Care Team Description 10/28/[address] [facility] Blank Lemos, Ut dication Refill Clinic Dev CARVAL[place] (escitalopram (LEXAPRO) [address] [place] [address] [facility] 20 MG tablet ) [facility] [address] [place] [address] [place] [address] [phone] Social History Tobacco Use Types Packs/Day Years [...] encounter Miscellaneous Notes Telephone Encounter - Rosalie Field RN - 10/28/2019 12:32 PM CDT Prescription refilled x 1 per [facility] Refill Protocol. Next 5 appointments (look out 90 days) December 21, 2019 8:30 AM CDT (Arrive by 8:05 AM) Adult [facility] with [facility] [address] [place] [address] [address] [facility] [address] documented in this encounter Plan of Treatment Not on filedocumented as of this encounter Visit Diagnoses Diagnosis Generalized anxiety disorder Bipolar I disorder (H) Bipolar I disorder, most recent episode (or current) unspecified documented in this encounter Additional Health Concerns Assessment Noted Time PHQ-9 Depression Total Score: 4 09/22/2018 3:08 PM AIR POLLUTION ENGINEER documented as of this encounter Care Teams Embroiderer Hand Relationship Specialty Start Date End Date Blank Lemos, PCP - General Internal Medicine 04/22/[address] [place] [address] [place] [address] Blank Lemos, Assigned PCP 04/25/[address] [place] [address] [address] [place] [address] Hardeep Cárdenas Personal Advocate & 06/17/1901/30 Liaison (PAL) documented as of this encounter
--- OUTSIDE RECORDS SUMMARY | 2022-05-29 10:57 | XMS_ITS | Encounter Summary ---
:1990 Author Organization [place] Address [facility] [place] [address] Care Team Providers Name Role Phone Blank Lemos MD Primary Care Provider Blank Lemos MD Unavailable Hardeep Cárdenas Unavailable Unavailable Encounter Details Date Type Department Care Team Description 01/05/2020 Virtual Visit [facility] Blank Lemos anxiety disorder (Primary Dx); Clinic Dev Camp MD Insomnia, unspecified type [address] [place] [address] [facility] [address] [place] [address] [place] [address] Social History Tobacco Use [...] weeks. Take Blank hodge MD Internal Medicine/Pediatrics [facility] documented in this encounter Progress Notes [...] I will have full access to your [place] medical record during this entire phone call. [...] obtained for this service by care steam flattener: Yes HPI Medication Followup of ej ?? Taking Medication as prescribed: yes ?? Side Effects: None ?? Medication Helping Symptoms: a little bit Today feeling ok. Still on leave from work. Trazodone NOT working - made her feel too groggy in AM. Not using melatonin. Jasminien hit or miss but definitely better. Having major night sweats, getting better. Now getting 3good nights of sleep per week (better than none). Working with [employer]. Has left house a few times - today went to [employer] for the first time - big step. [...] 9 min Blank Lemos MD Internal Medicine/Pediatrics [facility] Sosa Whitehead - 01/05/2020 2:55 PM CDT Left message for patient to call back to schedule video appt 02/01. Sosa Whitehead, Immigration Patrol Inspector documented in this encounter Plan of Treatment Not on filedocumented as of this encounter Visit Diagnoses Diagnosis Generalized anxiety disorder - Primary Insomnia, unspecified type documented in this encounter Additional Health Concerns Assessment Noted Time PHQ-9 Depression Total Score: 15 12/08/2019 10:02 AM C DT documented as of this encounter Care Teams Candy Cutter Machine Relationship Specialty Start Date End Date Blank Lemos, PCP - General Internal Medicine 04/22/18 [facility] [place] [phone] Blank Lemos, Assigned PCP 04/25/18 [facility] [place] [address] Hardeep Cárdenas Personal Advocate & 06/17/1901/30 Liaison (PAL) documented as of this encounter
--- OUTSIDE RECORDS SUMMARY | 2022-05-29 10:57 | XMS_ITS | Encounter Summary ---
:1990 Author Organization [place] Address [address] [place] [address] Care Team Providers Name Role Phone Blank Lemos MD Primary Care Provider Blank Lemos MD Unavailable Encounter Details Date Type Department Care Team Description 02/01/2020 Orders Only [facility] Ble eding in early [facility] [address] [place] [address] Social History Tobacco Use Types [...] Quantitative 8,783 (H) 0 - 5 02/02/2020 [place] Serum IU/L 10:02 AM CDT [facility] Specimen Anatomical Collection Method Collection Time Receive d Time (Source) Location / / Volume Laterality Blood specimen 02/01/2020 11:02 0 (specimen) AM CDT 11:04 AM CDT Faiza Reyes CNM LAB - BLOOD ORDERABLES Performing Organization Address City/State/ZIP Code Phon e Number [facility] [address] [place] [address] Progesterone (02/01/2020 11:02 AM CDT) P athologist Signature Progesterone 12.2 ng/mL 02/01/2020 [facility] 6:04 PM CDT [facility] Comment: Progesterone Reference Range Female Non ?Follicular [...] Address City/State/ZIP Code Phon e Number [facility] [address] [place], [place] [id number] [place] [address] documented in this encounter Visit Diagnoses Diagnosis Bleeding in early Unspecified hemorrhage in early pregnanc y, unspecified as to episode of care documented in this encounter Additional Health Concerns Assessment Noted Time PHQ-9 Depression Total Score: 15 12/08/2019 10:02 AM C DT documented as of this encounter Care Teams Tractor Mechanic Relationship Specialty Start Date End Date Blank Lemos MD PCP - General Internal Medicine 04/22/[address] [place] [address] [place] [address] Blank Lemos MD Assigned PCP 04/25/[address] [place] [address] [place] [address] documented as of this encounter
--- OUTSIDE RECORDS SUMMARY | 2022-05-29 10:57 | XMS_ITS | Encounter Summary ---
:1990 Author Organization [place] Address [address] [facility] [place] [address] Care Team Providers Name Role Phone Blank Lemos MD Primary Care Provider Blank Lemos MD Unavailable Hardeep Cárdenas Unavailable Unavailable Reason for Visit Reason Comments Urgent Care Ear Problem Ear pain in both ears for 2 months. Patient finished antibiotic and it is still not better. Encounter Details Date Type Department Care Team Description 07/26/2019 Office Visit [facility] Flaskerud, Middle ear effusion, Urgent Care Dev Wiggins, KAILEE bilateral (Primary Dx) [address] [place] [address] [place] [address] [address] [address] [place] [address] Social History Tobacco Use [...] Comments Blood Pressure 104/72 07/26/2019 5:23 PM AIR [place] Pulse 56 07/26/2019 5:23 PM AIR [place] Temperature 36.9 ??C (98.5 ??F) 07/26/2019 5:23 PM AIR [place] Respiratory Rate - - Oxygen Saturation 98% 07/26/2019 5:23 PM AIR [place] Inhaled Oxygen Concentration - - Weight - [...] on yoursymptoms.?? Date Last Reviewed: 05/10/2016 ?? [id number] [employer]. [address] [place] [address], [place] [address]. All rights reserved. This information is not intended as a substitute for professional medical care. Always follow your healthcare professional's instructions. [place] documented in this encounter Progress Notes Rosalie [...] primary care provider. See orders in Epic [place] documented in this encounter Nursing Notes Georgie Kim CMA - 07/26/2019 4:25 PM CST Chief Complaint Patient presents with ??? Urgent Care ??? Ear Problem Ear pain in both ears for 2 months. Patient finished antibiotic and it is still not better. S NIA KIM BO[place] documented in this encounter Plan of Treatment Not on filedocumented as of this encounter Visit Diagnoses Diagnosis Middle ear effusion, bilateral - Primary documented in this encounter Additional Health Concerns Assessment Noted Time PHQ-9 Depression Total Score: 4 09/22/2018 3:08 PM AIR [place] documented as of this encounter Care Teams Inkjet Operator Relationship Specialty Start Date End Date Blank Lemos, PCP - General Internal Medicine 04/22/[address] [place] [address] [address] [place], [place] [id number] Blank Lemos, Assigned PCP 04/25/18 [facility] [place] [address] Hardeep Cárdenas Personal Advocate & 06/17/1901/30 Liaison (PAL) documented as of this encounter
--- OUTSIDE RECORDS SUMMARY | 2022-05-29 10:57 | XMS_ITS | Encounter Summary ---
:1990 Author Organization [place] Address [facility] [place] [address] Care Team Providers Name Role Phone Blank Lemos MD Primary Care Provider Blank Lemos MD Unavailable Hardeep Cárdenas Unavailable Unavailable Encounter Details Date Type Department Care Team Description 01/04/2020 Telephone [facility] Blank Oliveros MD [place] [address] [facility] [address]305 [facility] [place] [address] [address] [place] [address] [phone] Social History Tobacco Use Types Packs/Day Years [...] documented as of this encounter Care Teams Mash Tub Cooker Operator Relationship Specialty Start Date End Date Blank Lemos, PCP - General Internal Medicine 04/22/18 MD Zarate [facility] [place] [phone] Blank Lemos, Assigned PCP 04/25/[address] [facility] [place] [address] Hardeep Cárdenas Personal Advocate & 06/17/1901/30 Liaison (PAL) documented as of this encounter
--- OUTSIDE RECORDS SUMMARY | 2022-05-29 10:57 | XMS_ITS | Encounter Summary ---
:1990 Author Organization [place] Address [facility] [place] [address] Care Team Providers Name Role Phone Blank Lemos MD Primary Care Provider Blank Lemos MD Unavailable Hardeep Cárdenas Unavailable Unavailable Reason for Visit Reason Comments Medication Refill Encounter Details Date Type Department Care Team Description 07/27/2019 Refill [facility] Blank Oliveros MD Medication Refill Dev [address] [facility] [address] [facility] [place] [address] [address] [place] [address] [phone] Social History Tobacco Use Types Packs/Day Years [...] in last 12 months Prescription approved per [facility] Refill Protocol. Tony Huang RN, BSN, PHN T ARM OPERATOR documented in this encounter Plan of Treatment Not on filedocumented as of this encounter Visit Diagnoses Diagnosis Generalized anxiety disorder Bipolar I disorder (H) Bipolar I disorder, most recent episode (or current) unspecified documented in this encounter Additional Health Concerns Assessment Noted Time PHQ-9 Depression Total Score: 4 09/22/2018 3:08 PM EIGHT ARM OPERATOR documented as of this encounter Care Teams Executive Assistant Relationship Specialty Start Date End Date Blank Lemos, PCP - General Internal Medicine [facility] K[place]AN [place]ENO [phone] Blank Lemos, Assigned PCP 04/25/18 MD Zarate [facility] K[place]AN RENO [phone] Hardeep Cárdenas Personal Advocate & 11/8/19 6/23 /20 Liaison (PAL) documented as of this encounter
--- OUTSIDE RECORDS SUMMARY | 2022-05-29 10:57 | XMS_ITS | Encounter Summary ---
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 Mode of Communication: Video Conference via [employer] As the provider I attest to compliance with applicable laws and regulations related to telemedicine. Behavioral Health Clinician Progress Note Patient Name: Rena Turner Service Type: Individual Session Start Time: 2:05pm Session End Time: 2:30pm Session Length: 16 - 37 Attendees: Client Visit Activities (Refresh list every visit): [facility] Only Diagnostic Assessment Date: 12/20/2019 Treatment Plan [...] minutes): No Interactive Complexity: No Crisis: No [facility] Patient: No Treatment Objective(s) Addressed in [...] to experience panic when thinking about it. [facility] and patient spent session processing through patient's anxieties and what steps patient can take in order to feel more control over her anxiety. [facility] encouraged patient to try utilizing strategies daily [...] date to begin behavior change Motivational Interviewing [place] Intervention: Expressed Empathy/Understanding, Supported Autonomy, Collaboration, Evocation, [...] time, however patient was encouraged to call [place] [phone] should there be a change in any [...] a follow up appointment with the clinic [facility] as needed. She was also given information about mental health symptoms andtreatment options . CD Recommendations: No indications of CD issues. Treatment plan to be completed at next session. 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
--- OUTSIDE RECORDS SUMMARY | 2022-05-29 10:57 | XMS_ITS | Encounter Summary ---
:1990 Author Organization [place] Address [facility] [place] [address] Care Team Providers Name Role Phone Blank Lemos MD Primary Care Provider Blank Lemos MD Unavailable Hardeep Cárdenas Unavailable Unavailable Reason for Referral Mental Health Outpatient (Routine) - Closed Specialty Diagnoses / Procedures Referred By Contact Refer red To Contact Diagnoses Generalized anxiety disorder Bipolar I disorder (H) Blank Lemos MD [address] [place] [address] [place] [id number] Referral ID Status Reason Start Date Expiration Date Visits Requ ested Visits Authorized [id number] Closed 12/08/2019 12/07/2020 1 1 Scheduling Instructions ken please - patient with severe social anxiety - unable to leave house. Reason for Visit Reason Onset Date Comments Telephone 12/08/2019 Anxiety 12/08/2019 Encounter Details Date Type Department Care Team Description 12/08/2019 Virtual Visit [facility] Blank Lemos Insomnia , unspecified type (Primary Dx); Clinic Dev Camp MD Generalized anxiety disorder; [address] [place] [address] Bipol ar I disorder (H); [facility] Migraine without aura and without status migrainosus, not intractable [address] [place] [address] [place] [address] Social History Tobacco Use [...] Trazodone to help with sleep. Someone from [facility] will be reaching out to you soon. Letter should be available in [employer]. I will have someone reach out to you to get a video visit scheduled in about a month. Take care! Blank Lemos MD Internal Medicine/Pediatrics [facility] documented in this encounter Progress Notes [...] obtained for this service by 1 care steam train driver: yes. See the scanned image in the medical record. Rena Turner complains of Chief Complaint Patient presents with ? Anxiety I have reviewed and updated the patient's Past Medical History, Social History, Family History and Medication List. 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 I was just called back to work to start next week. Since COVID-19 has begun my anxiety has skyrocketed being in public. I think this is something that may pass in the future, but I was wondering if I could get a Drs note from you to stay home for the time being, and possibly a referral to the behavioral clinic in [place] (if they are open right now). I [...] Patient would like to get letter off ninat. Social History Tobacco Use ??? Smoking status: [...] - Adult; Outpatient Treatment; Individual/Couples/Family/Group Therapy/Health Psychology; [facility]: [facility] ; We will contact you to schedule the appointment or please call with any questions (F31.9) Bipolar I disorder (H) Comment: see above Plan: escitalopram (LEXAPRO) 20 MG tablet, MENTAL HEALTH REFERRAL - Adult; Outpatient Treatment; Individual/Couples/Family/Group Therapy/Health Psychology; [facility]: [facility] ; We will contact you to schedule [...] Name Type Priority Associated Diagnoses Order [facility] REFERRAL - Referral Routine Generalized anxi ety Ordered: 12/08/2019 Adult; Outpatient disorder Treatment; Bipolar I disorder (H) Individual/Couples/Famil y/Group Therapy/Health Psychology; [facility]: [facility] ; We will contact you to schedule [...] documented as of this encounter Care Teams Primer Inserting Machine Operator Relationship Specialty Start Date End Date Blank Lemos, PCP - General Internal Medicine 04/22/[address] [place] [address] [place] [phone] Blank Lemos, Assigned PCP 04/25/18 [facility] [place] [address] Hardeep Cárdenas Personal Advocate & 06/17/1901/30 Liaison (PAL) documented as of this encounter
--- OUTSIDE RECORDS SUMMARY | 2022-05-29 10:57 | XMS_ITS | Encounter Summary ---
:1990 Author Organization [place] Address [address] [place] [address] Care Team Providers Name Role Phone Blank [...] Depression Total Score: 4 09/22/2018 3:08 PM CUSTOM TAILOR documented as of this encounter Care Teams Tire Worker Relationship Specialty Start Date End Date Blank Lemos, PCP - General Internal Medicine 04/22/18 [facility] [address] [place], [place] [address] Blank Lemos, Assigned PCP 04/25/18 MD Zarate [facility] [place] [address] Hardeep Cárdenas Personal Advocate & 06/17/1901/30 Liaison (PAL) documented as of this encounter
--- OUTSIDE RECORDS SUMMARY | 2022-05-29 10:57 | XMS_ITS | Encounter Summary ---
:1990 Author Organization [place] Address [facility] [place] [address] Care Team Providers Name Role Phone Blank Lemos MD Primary Care Provider Blank Lemos MD Unavailable Hardeep Cárdenas Unavailable Unavailable Encounter Details Date Type Department Care Team Description 12/08/2019 Telephone [facility]ly, Health & Addiction [facility] [address] [place] [address] [address] [place] [address] Social [...] - 12/08/2019 10:48 AM CDT Phone Encounter [facility] attempted to reach patient, by PCP [...] documented as of this encounter Care Teams Cell Installer Relationship Specialty Start Date End Date Blank Lemos, PCP - General Internal Medicine 04/22/18 [facility] [place] [address] Blank Lemos, Assigned PCP 04/25/18 [facility] [place] [address] Hardeep Cárdenas Personal Advocate & 06/17/1901/30 Liaison (PAL) documented as of this encounter
--- OUTSIDE RECORDS SUMMARY | 2022-05-29 10:57 | XMS_ITS | Encounter Summary ---
:1990 Author Organization [place] Address [facility] [place] [address] Care Team Providers Name Role Phone Blank Lemos MD Primary Care Provider Blank Lemos MD Unavailable Hardeep Cárdenas Unavailable Unavailable Encounter Details Date Type Department Care Team Description 12/13/2019 Virtual Visit [facility] Nevin Gilman ed anxiety Mental Health & MAGGI DohertySW disorder (Primary Dx) Addiction [facility] [address] [facility] [address] [place] [address] [address] [place] [address] (Work) [phone] Social History Tobacco Use Types Packs/Day Years [...] Gilman LICSW - 12/13/2019 2:00 PM CDT [facility] Primary Care: Integrated Behavioral Health December 13, [...] I will have full access to your [place] medical record during this entire phone call. [...] been obtained for this service by care produce team member: yes. Behavioral Health Clinician Progress Note Patient Name: Rena Turner Service Type: Phone Visit Service Location: Phone call (patient / identified alcantara support person reached) Session Start Time: 2:05pm Session End Time: 2:30pm Session Length: 16 - 37 Attendees: Client Visit Activities (Refresh list every visit): [facility] Only Diagnostic Assessment Date: Next Session Treatment [...] minutes): No Interactive Complexity: No Crisis: No [facility] Patient: No Treatment Objective(s) Addressed in This [...] PTSD Symptom Management Current Stressors / Issues: [facility] introduced self and role to patient. Patient [...] said that it would be helpful if [facility] helps prompts and points patient in the [...] date to begin behavior change Motivational Interviewing [place] Intervention: Expressed Empathy/Understanding, Supported Autonomy, Collaboration, Evocation, [...] time, however patient was encouraged to call [place] [phone] should there be a change in any [...] a follow up appointment with the clinic [facility] as needed. She was also given information about mental health symptoms andtreatment options . CD Recommendations: No indications of CD issues. DA [facility] ANTONIO Menjivar, [facility] documented in this encounter Plan of Treatment Not on filedocumented as of this encounter Visit Diagnoses Diagnosis Generalized anxiety disorder - Primary documented in this encounter Additional Health Concerns Assessment Noted Time PHQ-9 Depression Total Score: 15 12/08/2019 10:02 AM C DT documented as of this encounter Care Teams Certified Professional Coder Relationship Specialty Start Date End Date Blank Lemos, PCP - General Internal Medicine 04/22/18 [facility] [place] [address] Blank Lemos, Assigned PCP 04/25/18 [facility] [place] [address] Hardeep Cárdenas Personal Advocate & 06/17/1901/30 Liaison (PAL) documented as of this encounter
--- OUTSIDE RECORDS SUMMARY | 2022-05-29 10:57 | XMS_ITS | Encounter Summary ---
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 [facility] informedpatient that she can reach back out via calling the clinic or BET Information Systemshart to schedule again when able. 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
--- OUTSIDE RECORDS SUMMARY | 2022-05-29 10:57 | XMS_ITS | Encounter Summary ---
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 Primary Care: Integrated Behavioral Health Matchbook Assembler Name: Bessy Gilman Credentials: [facility], [facility], [place] PATIENT'S NAME: Rena Turner PREFERRED NAME: Rena PREFERRED PRONOUNS: : 1990 ACCT. NUMBER: [id number] DATE OF SERVICE: 12/20/19 START TIME: 2:00pm END TIME: 2:41pm PREFERRED PHONE: [phone] May we leave a program related message: [...] services. Mode of Communication: Video Conference via [employer] As the provider I attest to compliance [...] History: Patient reported they grew up in [place], [place] and moved to [place] years ago. They were raised by [...] Patient identified their preferred language to be Algerian. Patient reported they does not need the assistance of an edge bander hand or other support involved in therapy. Patient [...] symptoms were todevelop. The patient has a [facility] Primary Care Provider, who is named Blank [...] not present. Safety Assessment: Current Safety Concerns: [place] Suicide Severity Rating Scale (Lifetime/Recent) [place] Suicide Severity Rating (Lifetime/Recent) 12/21/2019 12/21/2019 1. [...] is not confined to features of an [place] I disorder. E. The anxiety, worry, or [...] increase in mood stability. 4. Resources/Service Plan: Regulatory Affairs Spec services are not indicated. 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) documented in this encounter Additional Health Concerns Assessment Noted Time PHQ-9 Depression Total Score: 15 12/08/2019 10:02 AM C DT documented as of this encounter Care Teams Awning Installer Relationship Specialty Start Date End Date Blank Lemos, PCP - General Internal Medicine 04/22/18 [facility] K[place] [phone] Blank Lemos, Assigned PCP 04/25/18 [facility] K[place] [phone] Hardeep Cárdenas Personal Advocate & 06/17/1901/30 Liaison (PAL) documented as of this encounter
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
--- OUTSIDE RECORDS SUMMARY | 2022-05-29 10:57 | XMS_ITS | Encounter Summary ---
:1990 Author Organization [place] Address [address] [place] [address] Care Team Providers Name Role Phone Blank [...] Depression Total Score: 4 09/22/2018 3:08 PM REVENUE CYCLE SPECIALIST documented as of this encounter Care Teams Medical Office Technologist Relationship Specialty Start Date End Date Blank Lemos, PCP - General Internal Medicine 04/22/18 [facility] [address] [place], [place] [address] Blank Lemos, Assigned PCP 04/25/18 MD Zarate [facility] [place] [address] Hardeep Cárdenas Personal Advocate & 06/17/1901/30 Liaison (PAL) documented as of this encounter
--- OUTSIDE RECORDS SUMMARY | 2022-05-29 10:58 | XMS_ITS | Encounter Summary ---
:1990 Author Organization [place] Address [address] [place] [address] Care Team Providers Name Role Phone Blank [...] Depression Total Score: 4 09/22/2018 3:08 PM CRAFT DEMONSTRATOR documented as of this encounter Care Teams Dispensing Audiologist Relationship Specialty Start Date End Date Blank Lemos MD PCP - General Internal Medicine 04/22/[address] [place] [address] [place] [address] Blank Lemos MD PCP - Assigned PCP 04/25/18 10/12/[address] [place] [address] [place] [phone] Blank Lemos MD Assigned PCP 04/25/[address] [place] [address] [place] [phone] documented as of this encounter
--- OUTSIDE RECORDS SUMMARY | 2022-05-29 10:58 | XMS_ITS | Encounter Summary ---
:1990 Author Organization [place] Address [facility] [place] [address] Care Team Providers Name Role Phone Blank Lemos MD Primary Care Provider Blank Lemos MD Unavailable Blank Lemos MD Unavailable Reason for Visit Reason Comments Colposcopy Encounter Details Date Type Department Care Team Description 10/07/2018 Office Visit [facility] Yonathan Giraldo Papsohan molina smear of Clinic Dev You MD cervix with low grade [address] [place], [place] intraepithelial lesion [phone] (LGSIL) (Primary Dx) [place] [phone] (Wo rk) [address] [phone] Social History Tobacco Use Types Packs/Day Years Used Date Smoking Tobacco: Every Day Cigarettes 0.3 8 Smokeless Tobacco: Never Tobacco Cessation: Ready to Quit: No; Co [...] Comments Blood Pressure 114/80 10/07/2018 2:04 PM ELEMENTARY SPANISH TEACHER Pulse - - Temperature - - Respiratory Rate - - Oxygen Saturation - - Inhaled Oxygen Concentration - - Weight 84.6 kg (186 lb 9.6 oz) 10/07/2018 2:04 PM ELEMENTARY SPANISH TEACHER Height - - Body Mass Index 32.54 [...] Pap/HPV in 1 year Yonathan Giraldo MD ENTARY SPANISH TEACHER documented in this encounter Nursing Notes Furlong, Shi F, HEAD INSULATION BOARD SAW OPERATOR - 10/07/2018 2:00 PM CST Chief Complaint [...] Vaccinations: flu shot declined Shi Rinaldi CMA ENTARY SPANISH TEACHER documented in this encounter Plan of Treatment Not on filedocumented as of this encounter Procedures Procedure Name Priority Date/Time Associated Diagnosis Comme nts HCG QUALITATIVE LEANDRA 10/07/2018 2:11 Papanicolaou smear of Results for this URINE PM ELEMENTARY SPANISH TEACHER cervix with low grade proced ure are in squamous the results intraepithelial lesion secti on. (LGSIL) documented in this encounter Results HCG qualitative urine - CSC and Range (10/07/2018 2:11 PM ELEMENTARY SPANISH TEACHER) P athologist Signature HCG Qual Urine Negative NEG^Negati 10/07/2018 [facility] 2:24 PM ELEMENTARY SPANISH TEACHER [facility] Comment: This test is for screening purposes. ??R esults should be interpreted along with the clinical picture. ??Confirmation te sting is available if warranted by ordering [id number], HCG Quantitative Pregna ncy. Specimen Anatomical Collection Method Collection Time Receive d Time (Source) Location / / Volume Laterality Urine specimen 10/07/2018 2:11 PM 019 2:13 (specimen) ELEMENTARY SPANISH TEACHER PM ELEMENTARY SPANISH TEACHER Yonathan Giraldo MD LAB - URINE ORDERABLES Performing Organization Address City/State/ZIP Code Phon e Number [address] [address] documented in this encounter Visit Diagnoses Diagnosis Papanicolaou smear of cervix with low gr asiya squamous intraepithelial lesion (LGSIL) - Primary documented in this encounter Additional Health Concerns Assessment Noted Time PHQ-9 Depression Total Score: 4 09/22/2018 3:08 PM ELEMENTARY SPANISH TEACHER documented as of this encounter Care Teams Pricing Director Relationship Specialty Start Date End Date Blank Lemos MD PCP - General Internal Medicine 04/22/[address] [place] [address] DR VASQUEZ, KISHAN [phone] Blank Lemos MD PCP - Assigned PCP 04/25/18 10/12/[address] [place] [address] KISHAN RENO [phone] Blank Lemos MD Assigned PCP 04/25/[address] [place] [address] K[place] RENO [phone] documented as of this encounter
--- OUTSIDE RECORDS SUMMARY | 2022-05-29 10:58 | XMS_ITS | Encounter Summary ---
:1990 Author Organization [place] Address [facility] [place] [address] Care Team Providers Name Role Phone Blank Lemos MD Primary Care Provider Blank Lemos MD Unavailable Reason for Visit Reason Comments Medication Refill SUMAtriptan (IMITREX) 25 MG tablet Encounter Details Date Type Department Care Team Description 06/16/2019 Refill [facility] Blank Lemos, Id dication Refill Clinic Dev CAR[place] (SUMAtriptan (IMITREX) [address] [facility] 25 MG tablet) [facility] [address] [place] [address] [place]én[place] [address] [phone] Social History Tobacco Use Types Packs/Day Years [...] No positive test in past 12 months ASSISTANT documented in this encounter Plan of Treatment Not on filedocumented as of this encounter Visit Diagnoses Diagnosis Other migraine without status migrainosu s, not intractable documented in this encounter Additional Health Concerns Assessment Noted Time PHQ-9 Depression Total Score: 4 09/22/2018 3:08 PM DATA ASSISTANT documented as of this encounter Care Teams Food And Beverage Operations Manager Relationship Specialty Start Date End Date Blank Lemos MD PCP - General Internal Medicine 04/22/[address] [place] [address] K[place] R[place] [phone] Blank Lemos MD Assigned PCP 04/25/[address] [place] [address] [place] R[place] [phone] documented as of this encounter
--- OUTSIDE RECORDS SUMMARY | 2022-05-29 10:58 | XMS_ITS | Encounter Summary ---
:1990 Author Organization [place] Address [facility] [place] [address] Care Team Providers Name Role Phone Blank Lemos MD Primary Care Provider Blank Lemos MD Unavailable Blank Lemos MD Unavailable Reason for Visit Reason Onset Date Comments Results 04/26/2018 Re: urine culture Encounter Details Date Type Department Care Team Description 04/26/2018 Telephone [facility] Blank Lemos Results ( Re: urine Clinic Dev Camp MD culture) [address] [facility] [address] [place] [address] [place] [phone] Social History Tobacco Use Types Packs/Day Years [...] further evaluation. Blank Lemos MD Internal Medicine/Pediatrics [facility] Telephone Encounter - Anastasia Dickey - 04/26/2018 [...] documented as of this encounter Care Teams Community Ambassador Relationship Specialty Start Date End Date Blank Lemos MD PCP - General Internal Medicine 04/22/[address] [place] [address] K[place] RENO [phone] Blank Lemos MD PCP - Assigned PCP 04/25/18 10/12/[address] [place] [address] K[place] RENO [address] Blank Lemos MD Assigned PCP 04/25/[address] [place] [address] K[place] RENO [phone] documented as of this encounter
--- OUTSIDE RECORDS SUMMARY | 2022-05-29 10:58 | XMS_ITS | Encounter Summary ---
:1990 Author Organization [place] Address [address] [facility] [place] [address] Care Team Providers Name Role Phone Blank Lemos MD Primary Care Provider Blank Lemos MD Unavailable Blank Lemos MD Unavailable Reason for Visit Reason Comments Urgent Care Urinary Problem possible uti; dysuria at end of urination. Was treated x 1 month ago Pharyngitis neck, throat, and ear pain Encounter Details Date Type Department Care Team Description 04/29/2018 Office Visit [facility] Phillip Crowder Dysuria (Primary Dx); Urgent Care Dev Bob PA-C Throat pain [address] [address] [place], [place] [address] [address] [place] [address] Social History Tobacco Use Types Packs/Day [...] the groin Date Last Reviewed: 08/10/2016 ?? [phone] [employer]. [address] [place] [address]. All rights reserved. This information is not [...] NEG^Negative Ketones Urine Negative NEG^Negative mg/dL Specific [place] Urine 1.010 1.003 - 1.035 Blood Urine [...] notify patient if strep culture is positive. ADEEL Morse 04/29/2018 at 6:46 PM I have reviewed [...] Component Value Ref Test Analysis Performed At [employer] Range Method Time Signature Specimen Midstream Urine [...] Phillip Crowder PA-C LAB - MICRO GENERAL ALVINAA TARAH Performing Organization Address City/State/ZIP Code Phon e Number INFECTIOUS DISEASES [address] [place] [address] DIAGNOSTIC LABORATORY, [facility] INFECTIOUS DISEASE [address] [place] [address], [facility] DIAGNOSTIC LABORATORY Wet prep (04/29/2018 5:22 PM CDT) [email or web address] Method Time Signature Specimen Vagina [facility] Description [...] MICRO GENERAL ORDERA BLES Performing Organization Address [facility] Phon e Number [facility] [address] [place] [address] [phone] Beta strep group A culture (04/29/2018 4:22 PM CDT) Component Value Ref Test Analysis Performed At Patholo gist Range Method Time Signature Specimen Throat [facility] DEV Culture Micro No beta 04/30/2018 [facility] hemolytic 6:00 PM CDT CLINICS Streptococcus DEV Group A isolated Specimen Anatomical Collection Method Collection Time Receive d Time (Source) Location / / Volume Laterality Specimen from 04/29/2018 4:22 PM 04/29/20 18 4:24 throat CDT PM CDT (specimen) Phillip Crowder PA-C LAB - MICRO GENERAL ORDERA BLESerena Performing Organization Address [facility]/ZIP Code Phon e Number [facility] [address] [place] [phone] Strep, Rapid Screen (04/29/2018 4:05 PM CDT) Component Value Ref Test Analysis Performed At [facility] Range Method Time Signature Specimen Throat [facility] DEV Rapid Strep A NEGATIVE: No 04/29/2018 [facility] Screen Group A 4:23 PM CDT CLINICS streptococcal DEV antigen detected by immunoassay, await culture report. Specimen Anatomical Collection Method Collection Time Receive d Time (Source) Location / / Volume Laterality Specimen from 04/29/2018 4:05 PM 04/29/20 18 4:07 throat CDT PM CDT (specimen) Phillip Crowder PA-C LAB - MICRO GENERAL ORDERA BLESerena Performing Organization Address City/[facility]/ZIP Code Phon e Number [facility] [address] [place] [phone] Urine Microscopic (04/29/2018 3:45 PM [...] LAB - URINE ORDERABLES Performing Organization Address City/[facility]/ZIP Code Phon e Number [address] [address] [phone] (ABNORMAL) UA reflex to Microscopic and Culture (04/29/2018 3:45 PM CDT) Patholo gist Method Time Signature Color Urine Yellow 04/29/2018 [facility] 4:35 PM CDT CLINICS DEV Appearance Urine Clear 04/29/2018 [facility] 4:35 PM CDT CLINICS DEV Glucose Urine Negative NEG^Negat 04/29/2018 [facility] yakelin mg/dL 4:35 PM CDT CLINICS DEV Bilirubin Urine Negative NEG^Negat 04/29/2018 [facility] [place]akelin 4:35 PM CDT CLINICS DEV Ketones Urine Negative NEG^Negat 04/29/2018 [facility] yakelin mg/dL 4:35 PM CDT CLINICS DEV Specific [place] 1.010 1.003 - 04/29/2018 [facility] Urine 1.035 4:35 PM CDT CLINICS DEV Blood Urine Negative NEG^Negat 04/29/2018 [facility] yakelin 4:35 PM CDT CLINICS DEV pH Urine 6.5 5.0 - 7.0 04/29/2018 [facility] pH 4:35 PM CDT CLINICS DEV Protein Albumin Negative NEG^Negat 04/29/2018 [facility] Urine yakelin mg/dL 4:35 PM CDT CLINICS DEV Urobilinogen 0.2 0.2 - 1.0 04/29/2018 [facility] Urine EU/dL 4:35 PM CDT CLINICS DEV Nitrite Urine Negative NEG^Negat 04/29/2018 [facility] yakelin 4:35 PM CDT CLINICS DEV Leukocyte Trace (A) NEG^Negat 04/29/2018 [facility] Esterase Urine yakelin 4:35 PM CDT CLINICS DEV Source Midstream 04/29/2018 [facility] Urine 3:47 PM CDT CLINICS DEV Specimen (Source) Anatomical Collection Method Collection Time Re ceived Time Location / / Volume Laterality Examination of 04/29/2018 3:45 04/29/2018 3:47 midstream urine PM CDT PM CDT specimen (procedure) Phillip Crowder PA-C LAB - URINE ORDERABLES Performing Organization Address City/State/[facility] Code Phon e Number [facility] DEV [address] [facility] [place] [address] documented in this encounter Visit Diagnoses Diagnosis Dysuria - Primary Throat pain documented in this encounter Additional Health Concerns Assessment Noted Time PHQ-9 Depression Total Score: 7 02/07/2018 7:00 AM CDT documented as of this encounter Care Teams Jewelry Sorter Relationship Specialty Start Date End Date Blank Lemos MD PCP - General Internal Medicine 04/22/[address] [place] [address] K[place] RENO [address] Blank Lemos MD PCP - Assigned PCP 04/25/18 10/12/[address] [place] [address] K[place] RENO [address] Blank Lemos MD Assigned PCP 04/25/[address] [place] [address] K[place] RENO [phone] documented as of this encounter
--- OUTSIDE RECORDS SUMMARY | 2022-05-29 10:58 | XMS_ITS | Encounter Summary ---
:1990 Author Organization [place] Address [facility] [place] [address] Care Team Providers Name Role Phone Blank Lemos MD Primary Care Provider Blank Lemos MD Unavailable Hardeep Cárdenas Unavailable Unavailable Reason for Visit Reason Comments Ear Problem Encounter Details Date Type Department Care Team Description 07/15/2019 Office Visit [facility] Rebeka French Non- recurrent acute Clinic Dev Mays PA-C suppurative otitis [address] [facility] media of both ears [facility] without spontaneous [address] [place] [address] rupture of tympanic [place] [address] membranes [...] Comments Blood Pressure 118/64 07/15/2019 2:56 PM CIVIL ENGINEER Pulse 67 07/15/2019 2:56 PM CIVIL ENGINEER Temperature 36.8 ??C (98.3 ??F) 07/15/2019 2:56 PM CIVIL ENGINEER Respiratory Rate 16 07/15/2019 2:56 PM CIVIL ENGINEER Oxygen Saturation 98% 07/15/2019 2:56 PM CIVIL ENGINEER Inhaled Oxygen Concentration - - Weight 96.6 kg (213 lb) 07/15/2019 2:56 PM CIVIL ENGINEER Height 160 cm (5' 3) 07/15/2019 2:56 PM CIVIL ENGINEER Body Mass Index 37.73 07/15/2019 2:56 PM CIVIL ENGINEER documented in this encounter Progress Notes Rebeka [...] 20 tablet; Refill: 0 Rebeka French PA-C [facility] DEV L ENGINEER documented in this encounter Plan of Treatment Not on filedocumented as of this encounter Visit Diagnoses Diagnosis Non-recurrent acute suppurative otitis m edia of both ears without spontaneous rupture of tympanic membranes - Primary documented in this encounter Additional Health Concerns Assessment Noted Time PHQ-9 Depression Total Score: 4 09/22/2018 3:08 PM CIVIL ENGINEER documented as of this encounter Care Teams Nurse Unit Manager Relationship Specialty Start Date End Date Blank Lemos, PCP - General Internal Medicine 04/22/18 [address] [place] [facility] [address] M[place], KISHAN [phone] Blank Lemos, Assigned PCP 04/25/18 MD [place] [facility] [place] [address] Hardeep Cárdenas Personal Advocate & 06/17/1901/30 Liaison (PAL) documented as of this encounter
--- OUTSIDE RECORDS SUMMARY | 2022-05-29 10:58 | XMS_ITS | Encounter Summary ---
:1990 Author Organization [place] Address [facility] [place] [address] Care Team Providers Name Role Phone Blank Lemos MD Primary Care Provider Blank Lemos MD Unavailable Blank Lemos MD Unavailable Hardeep Cárdenas Unavailable Unavailable Kathleen Lacy CNM Unavailable Anabell Shannon Unavailable Unavailable Rand Kam APRN CNM Unavailable Sharita Frias MD Unavailable Kathleen Lacy CNM Unavailable Kathleen Lacy CNM Unavailable Sharita Frias MD Unavailable Encounter Details Date Type Department Care Team Description 08/09/2018 Telephone [facility] Blank Oliveros MD [place] [address] [facility] [address] [facility] [place] [address] [address] [place] [address] [phone] Social History Tobacco Use Types Packs/Day Years [...] as of this encounter Care Teams Manager Occupational Relationship Specialty Start Date End Date Blank Lemos, PCP - General Internal Medicine 04/22/[address] [place] [address] KISHAN RENO [phone] Blank Lemos, PCP - Assigned PCP 04/25/[address] [place] [address] KISHAN RENO [phone] Blank Lemos, Assigned PCP 04/25/[address] [place] [address] K[place] R[place] [address] Haredep Cárdenas Personal Advocate & 06/17/1901/30 Liaison (PAL) Kathleen Lacy CNM Assigned OBGYN Provider 06/01/20 11/23/21 [address] [place], [place] [address] Anabell Shannon Personal Advocate & 3/18/21 Liaison (PAL) Rand Kam, Assigned OBGYN Provider 11/24/21 12/28/21 HOUSEHOLD MANAGER CNM [address] [place], [place] [phone] Sharita Frias, Assigned OBGYN Provider 01/04/22 01/17/22 [address] [place], [place] [phone] Kathleen Lacy CNM Assigned OBGYN Provider 12/29/21 01/03/22 [address] [place], [place] [address] Kathleen Lacy CNM Assigned OBGYN Provider 01/18/22 01/24/22 [address] [place] [address] Sharita Frias, Assigned OBGYN Provider 01/25/22 [address] [place], [place] [phone] documented as of this encounter
--- OUTSIDE RECORDS SUMMARY | 2022-05-29 10:58 | XMS_ITS | Encounter Summary ---
:1988 Author Organization [place] Address [address] [place] [address] Care Team Providers Name Role Phone Blank Lemos MD Primary Care Provider Blank Lemos MD Unavailable Blank Lemos MD Unavailable Reason for Visit Reason Comments Medication Refill escitalopram (LEXAPRO) 20 MG tablet Encounter Details Date Type Department Care Team Description 08/06/2018 Refill [facility] on Refill Clinic Dev Reyes MD (escitalopram (LEXAPRO) [address] [facility] 20 MG tab let) [place] [address] [address] [facility] [place] [address] [place] [address] (Wo rk) Social History Tobacco [...] No positive test in last 12 months NG CAGE WORKER documented in this encounter Plan of Treatment Not on filedocumented as of this encounter Visit Diagnoses Diagnosis Generalized anxiety disorder Bipolar I disorder (H) Bipolar I disorder, most recent episode (or current) unspecified documented in this encounter Additional Health Concerns Assessment Noted Time PHQ-9 Depression Total Score: 7 02/07/2018 7:00 AM CDT documented as of this encounter Care Teams Repairer Kiln Car Relationship Specialty Start Date End Date Blank Lemos MD PCP - General Internal Medicine 04/22/[address] [place] [address] [address] [place], [place] [address] Blnak Lemos MD PCP - Assigned PCP 04/25/18 10/12/18 [address] [facility] KISHAN RENO [phone] Blank Lemos MD Assigned PCP 04/25/18 [address] [facility] KISHAN RENO [phone] documented as of this encounter
--- OUTSIDE RECORDS SUMMARY | 2022-05-29 10:58 | XMS_ITS | Encounter Summary ---
:1988 Author Organization [place] Address [facility] [place] [address] Care Team Providers Name Role Phone Uvaldo Gamble MD Primary Care Provider Uvaldo Gamble MD Unavailable Uvaldo Gamble MD Unavailable Reason for Visit Reason Comments Physical Encounter Details Date Type Department Care Team Description 09/22/2018 Office Visit [facility] Uvaldo Gamble Encounter for gynecological examination without abnormal finding (Primary Dx); Clinic Dev Camp MD Bipolar I disorder (H); [address] [place] [address] [facility] Migra ine without aura and without status migrainosus, not intractable; [facility] Generalized anxiety disorder; [address] [place] [address] Screening for cervical cancer; [place] [address] Tobacco abuse; Otalgia of both [...] Comments Blood Pressure 108/66 09/22/2018 11:20 AM GLASS BEAD MAKER Pulse 59 09/22/2018 11:20 AM GLASS BEAD MAKER Temperature 36.7 ??C (98.1 ??F) 09/22/2018 11:20 AM GLASS BEAD MAKER Respiratory Rate - - Oxygen Saturation 98% 09/22/2018 11:20 AM GLASS BEAD MAKER Inhaled Oxygen Concentration - - Weight 84.4 kg (186 lb) 09/22/2018 11:20 AM GLASS BEAD MAKER Height - - Body Mass Index 32.43 [...] six months for an exam and cleaning. S BEAD MAKER documented in this encounter Progress Notes Uvaldo [...] Prophylaxis Lung CA Screening Uvaldo Gamble MD [facility] D[facility] S BEAD MAKER documented in this encounter Plan of Treatment Not on filedocumented as of this encounter Procedures Procedure Name Priority Date/Time Associated Diagnosis Comme nts PAP IMAGED THIN Routine 09/22/2018 11:51 AM Screening for Resu lts for this LAYER SCREEN GLASS BEAD MAKER cervical cancer procedure ar e in the results section. HPV HIGH RISK TYPES Routine 09/22/2018 11:39 AM Screening for Results for this DNA CERVICAL GLASS BEAD MAKER cervical cancer procedure ar e in the results section. documented in this encounter Results (ABNORMAL) Pap imaged thin layer screen with HPV - recommended age 30 - 65 years (select HPV order below) (09/22/2018 11:51 AM GLASS BEAD MAKER) Component Value Ref Test Analysis Performed At [facility] Range Method Time Signature PAP LSIL (A) COPATH Copath Report COPATH Patient Name: RENA RESENDIZ MR#: [id number] Specimen #: [id number] Collected: 09/22/2018 Received: 09/23/2018 Reported: 09/27/2018 15:17 Ordering Phy(s): UVALDO GAMBLE For improved result formatting, select 'View Enhanced [...] Grimes M.D. Processed and screened at [facility] CLINICAL HISTORY: A previous normal pap Date of Last Pap: 04/05/15, Papanicolaou Test Limitations: ??Cervical cytology is a sc reening test with limited sensitivity; regular screening is critical for cancer prevention; Pap tests are p rimarily effective for the diagnosis/prevention of squamous cell carcinoma, not adenocarcinomas or other cancer s. TESTING LAB LOCATION: [facility] [address] [place] [place], [place] ??[address] COLLECTION SITE: Client: ??[facility] Location: EAFP (R) Specimen (Source) Anatomical Collection Method Collection Time Re ceived Time Location / / Volume Laterality Cytologic 09/22/2018 11:51 09/23/2018 2:24 material AM GLASS BEAD MAKER PM GLASS BEAD MAKER (specimen) Uvaldo Gamble MD LAB - OPTIME CLINICAL SPECIM EN Performing Organization Address City/State/ZIP Code Phon e Number COPATH (ABNORMAL) HPV High Risk Types DNA Cervical (09/22/2018 11:39 AM GLASS BEAD MAKER) [facility] Method Time Signature HPV Source [facility] 09/22/2018 [place] 11:51 AM [facility] DEV GLASS BEAD MAKER HPV 16 DNA Negative NEG^Negat 09/28/2018 [facility]elin 2:23 PM [facility] HPV 18 DNA Negative NEG^Negat 09/28/2018 [facility] yakelin 2:23 PM [facility] Other HR HPV Positive (A) NEG^Negat 09/28/2018 [facility] yaklein 2:23 PM [facility] Final This patient's sample is pos itive for other HR HPV DNA (types 31, 33, 35, 39, 45, 51, 52, 09/28/2018 [facility] 56, 58, 59, 66 or 68), not H PV 16 or HPV 18 DNA. This result requires clinical correlation 2:23 PM [facility] with concurrent cytology findings. [facility] Comment: This test was developed and its performa nce characteristics determined by the [facility], Molecular Diagnostics Laboratory. It has not [...] Description Cervical Cells 09/22/2018 11: [address] [facility] Comment: [id number] Specimen Anatomical Collection Method Collection Time Receive d Time (Source) Location / / Volume Laterality Cervical Cells CERVIX UTERI 09/22/2018 11:39 9 1:15 STRUCTURE / AM GLASS BEAD MAKER PM GLASS BEAD MAKER Unknown Uvaldo Gamble MD LAB - BLOOD ORDERABLES Performing Organization Address City/State/ZIP Code Phon e Number [address] [address] documented in this encounter Visit Diagnoses Diagnosis [...] Depression Total Score: 4 09/22/2018 3:08 PM GLASS BEAD MAKER documented as of this encounter Care Teams Timber Skidder Relationship Specialty Start Date End Date Uvaldo Gamble MD PCP - General Internal Medicine 04/22/[address] [place] [address] [place] [address] Uvaldo Gamble MD PCP - Assigned PCP 04/25/18 10/12/[address] [place] [address] KISHAN RENO [phone] Uvaldo Gamble MD Assigned PCP 04/25/18 [address] [facility] KISHAN RENO [phone] documented as of this encounter
--- OUTSIDE RECORDS SUMMARY | 2022-05-29 10:58 | XMS_ITS | Encounter Summary ---
:1990 Author Organization [place] Address [facility] [place] [address] Care Team Providers Name Role Phone Blank Lemos MD Primary Care Provider Blank Lemos MD Unavailable Reason for Visit Reason Comments Medication Refill escitalopram (LEXAPRO) 20 MG tablet Encounter Details Date Type Department Care Team Description 04/29/2019 Refill [facility] Blank Lemos, [place] dication Refill Clinic Dev [place] (escitalopram (LEXAPRO) [address] [place] [address]305 [facility] 20 MG tablet) [facility] [address] KISHAN MÉNDEZ [address] K[place]AN Méndez [address] [phone] Social History Tobacco Use Types Packs/Day Years [...] 05/02/2019 9:03 AM CDT Prescription approved per [facility] Refill Protocol. Brigido Bennett, RN, BSN Telephone Encounter - Hardeep Coronado [...] Depression Total Score: 4 09/22/2018 3:08 PM CINDER CREW WORKER documented as of this encounter Care Teams Homeopathic Doctor Relationship Specialty Start Date End Date Blank Lemos MD PCP - General Internal Medicine 04/22/[address] [place] [address] DR MÉNDEZ, KISHAN [id number] Blank Lemos MD Assigned PCP 04/25/[address] [place] [address] KISHAN RENO [phone] documented as of this encounter
--- OUTSIDE RECORDS SUMMARY | 2022-05-29 10:58 | XMS_ITS | Encounter Summary ---
:1990 Author Organization [place] Address [facility] [place] [address] Care Team Providers Name Role Phone Blank Lemos MD Primary Care Provider Blank Lemos MD Unavailable Blank Lemos MD Unavailable Hardeep Cárdenas Unavailable Unavailable Encounter Details Date Type Department Care Team Description 09/28/2018 Result Follow [facility] Blank Lemos Dx: Papa nicolaou smear Up [facility] [place] Camp MD of cervix with low grade [address] [place] 3305 [facility] squamous i ntraepithelial [facility] DR lesion (LGSIL) [address] [place] [address] [place] [phone] [address] (Work) [phone] Social History Tobacco Use Types Packs/Day Years [...] 09/22/18 LSIL, +HR HPV, not 16/18. Plan Isaban by 12/20/18 09/29/18 Patient has been notified of results and recommendations. 10/07/18 Isaban- No lesions seen, no Bx taken. Plan 1 yr co-test, due by 09/22/19. 09/07/19 [employer] reminder message sent. (es) 03/05/20 CCT tracking. 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) documented in this encounter Additional Health Concerns Assessment Noted Time PHQ-9 Depression Total Score: 4 09/22/2018 3:08 PM HEEL BUILDER MACHINE documented as of this encounter Care Teams Finisher Polisher Relationship Specialty Start Date End Date Blank Lemos, PCP - General Internal Medicine [facility] KISHAN RENO [phone] Blank Lemos, PCP - Assigned PCP 04/25/18 MD Zarate [facility] [place] [phone] Blank Lemos, Assigned PCP 04/25/18 [facility] [address] Hardeep Cárdenas Personal Advocate & 06/17/1901/30 Liaison (PAL) documented as of this encounter
--- OUTSIDE RECORDS SUMMARY | 2022-05-29 10:58 | XMS_ITS | Encounter Summary ---
:1990 Author Organization [place] Address [facility] [place] [address] Care Team Providers Name Role Phone Blank Lemos MD Primary Care Provider Blank Lemos MD Unavailable Blank Lemos MD Unavailable Reason for Visit Reason Onset Date Comments Pharyngitis 04/27/2018 Encounter Details Date Type Department Care Team Description 04/27/[address] [facility] Blank Oliveros MD Pharyngitis [place] 3305 [facility] 3305 [facility] K[place]AN [place] [address] [address] [place] Méndez [address] [phone] Social History Tobacco Use Types Packs/Day Years [...] documented as of this encounter Care Teams Technical Testing Engineer Relationship Specialty Start Date End Date Blank Lemos MD PCP - General Internal Medicine 04/22/[address] [place] [address] KISHAN RENO [phone] Blank Lemos MD PCP - Assigned PCP 04/25/18 10/12/[address] [place] [address] K[place] RENO [phone] Blank Lemos MD Assigned PCP 04/25/[address] [place] [address] KISHAN RENO [id number] documented as of this encounter
--- OUTSIDE RECORDS SUMMARY | 2022-05-29 10:58 | XMS_ITS | Encounter Summary ---
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
--- OUTSIDE RECORDS SUMMARY | 2022-05-29 10:58 | XMS_ITS | Encounter Summary ---
:1990 Author Organization [place] Address [facility] [place] [address] Care Team Providers Name Role Phone Blank Lemos MD Primary Care Provider Blank Lemos MD Unavailable Blank Lemos MD Unavailable Reason for Visit Reason Onset Date Comments Refill Request 09/01/2018 topiramate (TOPAMAX) 100 MG tablet Encounter Details Date Type Department Care Team Description 09/01/2018 Refill [facility] Serum, Lily Refill R equest Clinic Dev Reyes MD (topiramate (TOPAMAX) 3305 [facility] 100 MG ta blet) [facility] [address] [facility] KISHAN Méndez [address] [place] [address] (Wo rk) Social History Tobacco [...] Ana Maria Daniels MA 11:11 AM 09/02/2018 ROSTOMAL NURSE Telephone Encounter - Lily Mann RN - 09/02/2018 7:54 AM ENTEROSTOMAL NURSE 30 day supply given. Patient is due for yearly physical and lab work. Please call and assist with scheduling appointment prior to next refill Lily Donohue RN - [facility] ROSTOMAL NURSE Telephone Encounter - HollyFaiza - 09/01/2018 1:24 [...] No positive test in last 12 months ROSTOMAL NURSE documented in this encounter Plan of [...] documented as of this encounter Care Teams Mannequin Refinisher Relationship Specialty Start Date End Date Blank Lemos MD PCP - General Internal Medicine 04/22/[address] [place] [address] KISHAN RENO [phone] Blank Lemos MD PCP - Assigned PCP 04/25/18 10/12/[address] [place] [address] KISHAN RENO [phone] Blank Lemos MD Assigned PCP 04/25/[address] [place] [address] KISHAN RENO [phone] documented as of this encounter
--- OUTSIDE RECORDS SUMMARY | 2022-05-29 10:59 | XMS_ITS | Encounter Summary ---
:1990 Author Organization [place] Address [address] [place] [address] Care Team Providers Name Role Phone Lalita Perez MD Primary Care Provider Reason for Visit Reason Onset Date Comments Ear Problem 08/19/2016 Encounter Details Date Type Department Care Team Description 08/19/2016 Telephone [facility] Taylor Perez MD Ear Problem [facility] 3305 [facility] [address] [place] [address] [address] [place] [address] [place] [address] [phone] Social History Tobacco Use Types Packs/Day Years [...] she understands the below documentation. Lizett Garcia Beam Warper RVISOR HANGING AND TRIMMING Telephone Encounter - Lizett Garcia - 08/19/2016 5:41 PM CST LM for patient to call the clinic. Please see below documentation. Thank you, Lizett Garcia Beam Warper [employer]ANGING [employer] TRIMMING Telephone Encounter - Rebeka French PA-C - 08/19/2016 5:12 PM SUPERVISOR HANGING AND TRIMMING Begin omnicef and dc augmentin. Increase fluid intake. Call and inform patient. Rebeka French PA-C [employer] Telephone Encounter - Kristie Kapadia RN - [...] would rather change it than continue. Kristie Peru, RN Message handled by Nurse Triage. RVISOR HANGING AND TRIMMING documented in this encounter Plan of Treatment Not on filedocumented as of this encounter Visit Diagnoses Diagnosis Acute suppurative otitis media without s pontaneous rupture of ear drum, recurrence not specified, unspecified laterality - Primary documented in this encounter Additional Health Concerns Assessment Noted Time PHQ-9 Depression Total Score: 14 04/11/2016 7:23 AM CD T documented as of this encounter Care Teams Lymphedema Therapist Relationship Specialty Start Date End Date Lalita Perez MD PCP - General Student in [facility] 10/21/1404/21 care education/training program documented as of this encounter
--- OUTSIDE RECORDS SUMMARY | 2022-05-29 10:59 | XMS_ITS | Encounter Summary ---
:1990 Author Organization [place] Address [facility] [place] [address] Care Team Providers Name Role Phone Lalita Perez MD Primary Care Provider Reason for Visit Reason Comments Ear Problem Encounter Details Date Type Department Care Team Description 08/15/2016 Office Visit [facility] Rebeka French suppurative otitis media of right ear without spontaneous rupture of tympanic membrane, recurrence not specified (Primary Dx); Clinic [place] Mays PA-C Acute sinusitis with symptoms > 10 days [address] [place] 3305 [facility] [address] [place] [address] [place] [address] Social History Tobacco Use Types Packs/Day [...] Comments Blood Pressure 110/70 08/15/2016 4:09 PM AUTO DRIVER Pulse 91 08/15/2016 4:09 PM AUTO DRIVER Temperature 37 ??C (98.6 ??F) 08/15/2016 4:09 PM AUTO DRIVER Respiratory Rate - - Oxygen Saturation 99% 08/15/2016 4:09 PM AUTO DRIVER Inhaled Oxygen Concentration - - Weight 89 kg (196 lb 4.8 oz) 08/15/2016 4:09 PM AUTO DRIVER Height 160.7 cm (5' 3.25) 08/15/2016 4:09 PM AUTO DRIVER Body Mass Index 34.5 08/15/2016 4:09 PM AUTO DRIVER documented in this encounter Patient Instructions Patient InstructionsRebeka French PA-C - 08/15/2016 4:21 PM AUTO DRIVER Call with any questions DRIVER documented in this encounter Progress Notes Rebeka [...] list, Allergies, and Medical/Social/Surgical histories reviewed in [facility] andupdated as appropriate. ROS: ROS otherwise [...] tablet See Patient Instructions Rebeka French PA-C [facility] documented in this encounter Nursing Notes Kylah [...] kg). BP completed using cuff size: regular DRIVER documented in this encounter Plan of Treatment Not on filedocumented as of this encounter Visit Diagnoses Diagnosis Acute suppurative otitis media of right ear without spontaneous rupture of tympanic membrane, recurrence not specified - [facility] Acute sinusitis with symptoms > 10 days Acute sinusitis, unspecified documented in this encounter Additional Health Concerns Assessment Noted Time PHQ-9 Depression Total Score: 14 04/11/2016 7:23 AM CD T documented as of this encounter Care Teams Forge Operator Helper Relationship Specialty Start Date End Date Lalita Perez MD PCP - General Student in organized health 10/21/1404/21 care education/training program documented as of this encounter
--- OUTSIDE RECORDS SUMMARY | 2022-05-29 10:59 | XMS_ITS | Encounter Summary ---
:1990 Author Organization [place] Address [address] [place] [address] Care Team Providers Name Role Phone Lalita Perez MD Primary Care Provider Reason for Visit Reason Comments Headache Contraception Encounter Details Date Type Department Care Team Description 06/16/2016 Office Visit [facility] Blank Lemos Encounter for surveillance of other contraceptive (Primary Dx); Dev Cmap MD Migraine without aura and without status migrainosus, not intractable [address] [employer] [address] [place] [address] KISHAN Méndez [address] [facility] [phone] KISHAN MÉNDEZ [address] Social History Tobacco Use [...] Comments Blood Pressure 106/76 06/16/2016 8:24 AM DIRECTOR RETIREMENT Pulse 86 06/16/2016 8:24 AM DIRECTOR RETIREMENT Temperature 37.1 ??C (98.8 ??F) 06/16/2016 8:24 AM DIRECTOR RETIREMENT Respiratory Rate - - Oxygen Saturation 98% 06/16/2016 8:24 AM DIRECTOR RETIREMENT Inhaled Oxygen Concentration - - Weight 89.8 kg (198 lb) 06/16/2016 8:24 AM DIRECTOR RETIREMENT Height - - Body Mass Index 33.99 04/29/2016 8:18 AM CDT documented in this encounter Patient Instructions Patient InstructionsBlank Lemos MD - 06/16/2016 8:39 AM CST Follow instructions carefully for topamax. CTOR RETIREMENT documented in this encounter Progress Notes Blank [...] list, Allergies, and Medical/Social/Surgical histories reviewed in [facility] andupdated as appropriate. ROS: Constitutional, HEENT, cardiovascular, [...] instructions carefully for topamax. Blank Lem[facility] MD [facility] documented in this encounter Nursing Notes Maria [...] kg). BP completed using cuff size: regular CTOR RETIREMENT documented in this encounter Plan of Treatment [...] documented as of this encounter Care Teams Merchandise Clerk Relationship Specialty Start Date End Date Lalita Perez MD PCP - General Student in [facility] 10/21/1404/21 care education/training program documented as of this encounter
--- OUTSIDE RECORDS SUMMARY | 2022-05-29 10:59 | XMS_ITS | Encounter Summary ---
:1990 Author Organization [place] Address [address] [place] [address] Care Team Providers Name Role Phone Lalita Perez MD Primary Care Provider Reason for Visit Reason Onset Date Comments Nurse Advice Line 07/17/2016 Encounter Details Date Type Department Care Team Description 07/17/2016 Telephone [facility] Lalita Toledo MD Nurse Advice Line [address] [employer] [facility] - [place] [address] 8136 [facility] K[place]AN R[place] [address] (Wo rk) Social [...] Brii Odonnell RN - 07/17/2016 3:46 PM FINANCE TEACHER Wondering if having flu or s/e of [...] beverages. Increase rest. May try OTC acid economic developer (Zantac or omeprazole). Monitor over the weekend if no improvement may be seen in clinic or UC if sx worsen. Pt. Verbalized understanding. Brii Odonnell RN, BSN, PHN NCE TEACHER documented in this encounter Plan of Treatment Not on filedocumented as of this encounter Visit Diagnoses Not on filedocumented in this encounter Additional Health Concerns Assessment Noted Time PHQ-9 Depression Total Score: 14 04/11/2016 7:23 AM CD T documented as of this encounter Care Teams Wash Rack Operator Relationship Specialty Start Date End Date Lalita Perez MD PCP - General Student in organized health 10/21/1404/21 care education/training program documented as of this encounter
--- OUTSIDE RECORDS SUMMARY | 2022-05-29 10:59 | XMS_ITS | Encounter Summary ---
:1990 Author Organization [place] Address [facility] [place] [address] Care Team Providers Name Role Phone Lalita Perez MD Primary Care Provider Reason for Referral Consultation - Closed Specialty Diagnoses / Procedures Referred By Contact Refer red To Contact Diagnoses Migraine without aura and without status migrainosus, not intractable Blank Lemos MD [address] [place] [address] [place] [address] Phone: Fax: Referral ID Status Reason Start Date Expiration Date Visits Requ ested Visits Authorized [id number] Closed 08/28/2016 08/28/2017 1 1 GER PATHOLOGY Reason for Visit Reason Comments Headache Ear Problem Encounter Details Date Type Department Care Team Description 08/28/2016 Office Visit [facility] Blank Lemos Migraine without aura and without status migrainosus, not intractable (Primary Dx); Clinic Dev Camp MD ETD (eustachian tube dysfunction), [address] [place] [address] [place] [address] Social History Tobacco Use Types Packs/Day [...] Comments Blood Pressure 111/77 08/28/2016 2:55 PM MANAGER PATHOLOGY Pulse 84 08/28/2016 2:55 PM MANAGER PATHOLOGY Temperature 36.9 ??C (98.5 ??F) 08/28/2016 2:55 PM MANAGER PATHOLOGY Respiratory Rate - - Oxygen Saturation 98% 08/28/2016 2:55 PM MANAGER PATHOLOGY Inhaled Oxygen Concentration - - Weight 88.5 kg (195 lb 3.2 oz) 08/28/2016 2:55 PM MANAGER PATHOLOGY Height 160.7 cm (5' 3.25) 08/28/2016 2:55 PM MANAGER PATHOLOGY Body Mass Index 34.31 08/28/2016 2:55 PM MANAGER PATHOLOGY documented in this encounter Patient Instructions Patient InstructionsBlank Lemos MD - 08/28/2016 3:20 PM CST Increase topamax to 100mg twice daily. Make appt for neurology (if things get better, can always cancel appt). Use sudafed for continued ear symptoms. Blank Lemos MD Internal Medicine/Pediatrics [facility] GER PATHOLOGY documented in this encounter Progress Notes Blank [...] list, Allergies, and Medical/Social/Surgical histories reviewed in [facility] andupdated as appropriate. ROS: Constitutional, HEENT, cardiovascular, [...] ear symptoms. Blank Lemos MD Internal Medicine/Pediatrics [facility] Blank Lemos MD [facility] GER PATHOLOGY documented in this encounter Nursing Notes Saira [...] (88.542 kg). BP completed using cuff size: christine Singh LPN GER PATHOLOGY documented in this encounter Plan of Treatment Scheduled Referrals Name Type Priority Associated Diagnoses Order S [facility] NEUROLOGY ADULT Referral Routine Migraine without aura [...] documented as of this encounter Care Teams Composition Floor Setter Relationship Specialty Start Date End Date Lalita Perez MD PCP - General Student in organized health 10/21/1404/21 care education/training program documented as of this encounter
--- OUTSIDE RECORDS SUMMARY | 2022-05-29 10:59 | XMS_ITS | Encounter Summary ---
:1990 Author Organization [place] Address [address] [place] [address] Care Team Providers Name Role Phone Lalita Perez MD Primary Care Provider Reason for Visit Reason Onset Date Comments Medication Request 08/05/2016 alternative Encounter Details Date Type Department Care Team Description 08/05/2016 Telephone [facility] Lalita Perez MD Medication Request Clinic [facility] (alternative) [address] [place] 3305 [facility] [address] [place] [address] [place] [address] [phone] Social History Tobacco Use Types Packs/Day Years [...] sent to the pharmacy. Kelly Hernandez RN ATION SYSTEMS OUTREACH SPECIALIST Telephone Encounter - Emmett Gallegos MD - 08/05/2016 7:24 PM CST alternative sent ATION SYSTEMS OUTREACH SPECIALIST Telephone Encounter - Kristie Kapadia RN - 08/05/2016 6:[address] Gallegos, please review-ok to wait for UC, or could an alternative medicine be sent earlier? Kristie Kapadia RN Message handled by Nurse Triage. ATION SYSTEMS OUTREACH SPECIALIST Telephone Encounter - Kristie Kapadia RN - 08/05/2016 6:24 PM CST Patient calls. Was prescribed ciprofloxacin-dexamethasone (CIPRODEX) otic suspension for an ear infection. The medication is 200 dollars, asking for an alternative medication. Please send. Kristie Kapadia RN Message handled by Nurse Triage. ATION SYSTEMS OUTREACH SPECIALIST documented in this encounter Plan of Treatment Not on filedocumented as of this encounter Visit Diagnoses Diagnosis Acute swimmer's ear of right side - Prim ronak documented in this encounter Additional Health Concerns Assessment Noted Time PHQ-9 Depression Total Score: 14 04/11/2016 7:23 AM CD T documented as of this encounter Care Teams Winter Intern Relationship Specialty Start Date End Date Lalita Perez MD PCP - General Student in [employer] 10/21/1404/21 care education/training program documented as of this encounter
--- OUTSIDE RECORDS SUMMARY | 2022-05-29 10:59 | XMS_ITS | Encounter Summary ---
:1990 Author Organization [place] Address [facility] [place] [address] Care Team Providers Name Role Phone Lalita Perez MD Primary Care Provider Reason for Visit Reason Onset Date Comments Chest Pain 07/28/2016 Encounter Details Date Type Department Care Team Description 07/28/[address] [facility] Taylor Perez MD Chest Pain [facility] [place] 3305 [facility] [address] [place] [address] [address] [place] [address] [place] [address] [phone] Social History Tobacco Use Types Packs/Day Years [...] new symptoms develop, call your PCP or [place] [facility] as soon as possible. Guideline used: Telephone Triage Protocols for Nurses, ? Billy, UNRULY Butcher RN RPRISE MOBILITY ARCHITECT documented in this encounter Plan of Treatment Not on filedocumented as of this encounter Visit Diagnoses Not on filedocumented in this encounter Additional Health Concerns Assessment Noted Time PHQ-9 Depression Total Score: 14 04/11/2016 7:23 AM CD T documented as of this encounter Care Teams Tractor Driver Relationship Specialty Start Date End Date Laltia Perez MD PCP - General Student in [employer] health 10/21/1404/21 care education/training program documented as of this encounter
--- OUTSIDE RECORDS SUMMARY | 2022-05-29 10:59 | XMS_ITS | Encounter Summary ---
:1988 Author Organization [place] Address [facility] [place] [address] Care Team Providers Name Role Phone Lalita Perez MD Primary Care Provider Reason for Visit Reason Onset Date Comments Refill Request 10/18/2016 SUMATRIPTAN (IMITREX ) 25MG Encounter Details Date Type Department Care Team Description 10/18/2016 Refill [facility] Lalita Perez MD Refill Request Clinic [facility] (SUMATRIPTAN (IMITREX) [address] [place] [address]305 [facility] 25MG) [facility] [address] [place] [address] [place] [address] [phone] Social History Tobacco Use Types Packs/Day Years [...] 10/23/2016 9:09 AM CDT Prescription approved per [facility] Refill Protocol. Vandana Sosa RN Telephone Encounter - Marilee Oliva - 10/18/2016 1:53 PM CST SUMATRIPTAN (IMITREX) 25MG Last Written Prescription Date: 05/08/2016 Last Fill Quantity: 18, # refills: 1 Last Office Visit with [facility], [facility] or [facility] prescribing provider: 08/28/2016 BP Readings from Last 3 Encounters: 08/28/16 111/77 08/15/16 110/70 08/05/16 112/70 ME TAX ADJUSTER documented in this encounter Plan of Treatment Not on filedocumented as of this encounter Visit Diagnoses Diagnosis Other migraine without status migrainosu s, not intractable documented in this encounter Additional Health Concerns Assessment Noted Time PHQ-9 Depression Total Score: 14 04/11/2016 7:23 AM CD T documented as of this encounter Care Teams Bottom Bleacher Relationship Specialty Start Date End Date Lalita Perez MD PCP - General Student in organized health 10/21/1404/21 care education/training program documented as of this encounter
--- OUTSIDE RECORDS SUMMARY | 2022-05-29 10:59 | XMS_ITS | Encounter Summary ---
:1990 Author Organization [place] Address [facility] [place] [address] Care Team Providers Name Role Phone Lalita Perez MD Primary Care Provider Reason for Visit Reason Onset Date Comments Refill Request 07/13/2017 escitalopram (LEXAPR O) 20 MG tablet Encounter Details Date Type Department Care Team Description 07/13/2017 Refill [facility] Lalita Perez MD Refill Request Clinic [facility] (escitalopram (LEXAPRO) [address] [place] [address] [facility] 20 MG tablet) [facility] [address] [place] [address] [place] [address] [phone] Social History Tobacco Use Types Packs/Day Years [...] Ashley - 07/31/2017 10:51 AM CST 3rd FOLIO MGR Telephone Encounter - Anastasia Ashley - 07/24/2017 11:13 AM CST Left 2nd VM for pt to call back. She is over due for an office visit. FOLIO MGR Telephone Encounter - Chrissie Arana - 07/17/2017 1:49 PM CST Left message for patient to call us back. She is due for an office visit. FOLIO MGR Telephone Encounter - Lily Encarnacion MD - 07/15/2017 8:23 PM PORTFOLIO MGR Depression and anxiety have not been addressed at since 04/2016 per notes. Was referred to Psychiatry at that time. Needs f/u. Rx filled for 30 days. Please let know. Lily Encarnacion MD Internal Medicine/Pediatrics FOLIO MGR Telephone Encounter - Alissa Blank RN - [...] Dr. Encarnacion as she saw her last FOLIO MGR Telephone Encounter - Lalita Merritt - 07/13/2017 9:29 AM CST WERO 01/28/2017 FOLIO MGR documented in this encounter Plan of Treatment Not on filedocumented as of this encounter Visit Diagnoses Diagnosis Generalized anxiety disorder Bipolar I disorder (H) Bipolar I disorder, most recent episode (or current) unspecified documented in this encounter Additional Health Concerns Assessment Noted Time PHQ-9 Depression Total Score: 14 04/11/2016 7:23 AM CD T documented as of this encounter Care Teams Head Paper Tester Relationship Specialty Start Date End Date Lalita Perez MD PCP - General Student in organized health 10/21/1404/21 care education/training program documented as of this encounter
--- OUTSIDE RECORDS SUMMARY | 2022-05-29 10:59 | XMS_ITS | Encounter Summary ---
:1990 Author Organization [place] Address Counts include 234 beds at the [facility] [place] [address] Care Team Providers Name Role Phone Lalita Perez MD Primary Care Provider Reason for Visit Reason Comments Sinus Problem Encounter Details Date Type Department Care Team Description 04/29/2016 Office Visit [facility] Gonzalo Yang MD Acute suppurative otitis media of right ear without spontaneous rupture of tympanic membrane, recurrence not specified (Primary Dx); Dev [address]305 [facility] Acute non-recurrent maxillar y sinusitis; [address] [facility] [place] [address] [place] [address] Social History Tobacco Use Types Packs/Day [...] documented in this encounter Patient Instructions Patient InstructionsNoGonzalo shelley MD - 04/29/2016 8:49 AM CDT Amoxicillin [...] OTC sinus medication Was evaluated initially in then sent to the ED just over [...] to reduce your cough Gonzalo Yang MD [facility] documented in this encounter Nursing Notes Honey [...] of tympanic membrane, recurrence not specified - [facility] Acute non-recurrent maxillary sinusitis Cough documented in this encounter Additional Health Concerns Assessment Noted Time PHQ-9 Depression Total Score: 14 04/11/2016 7:23 AM CD T documented as of this encounter Care Teams Clinical Data Coordinator Relationship Specialty Start Date End Date Lalita Perez MD PCP - General Student in organized health 10/21/1404/21 care education/training program documented as of this encounter
--- OUTSIDE RECORDS SUMMARY | 2022-05-29 10:59 | XMS_ITS | Encounter Summary ---
:1990 Author Organization [place] Address [address] [place] [address] Care Team Providers Name Role Phone Lalita Perez MD Primary Care Provider Reason for Visit Reason Comments Cough x 10 days cough. states in t he last 2 days been coughing up clear mucus with blood in it. Encounter Details Date Type Department Care Team Description 04/19/2016 Office Visit [facility] Richard Huntley, Blood in sputum Care (Primary Dx) [address] [facility] [place] [address] [facility] [phone] [facility] [address] [place] [phone] (Wo rk) Social History Tobacco Use [...] Huntley MD - 04/19/2016 8:27 PM [facility] Progress Note Richard Huntley MD, MPH 04/19/2016 History: Rena Turner is a pleasant 26 year old year old female with a chief complaint of cough ,dyspneax 2 days. She states that she has noted blood in the sputum that she expectorates. No fever or chills. No night sweats or chills. No weight loss. No active TB in immediate call or contact centre coach is referred. No recent surgery or distant travel or immobilization is referred. No FH or personal HX of arterial orvenous thrombosis is referred. She has been on BCP x 8 years. NOT on any anticoagulant. No Hx of bleeding tendency or easy bruisability. No smoking history. Assessment and Plan: Cough,dyspnea and blood in sputum: The patient was directed to [facility] ER for further evaluation and management. The patient agrees w this plan. I spoke w Dr. Dunn at [facility] ER regarding the patient by phone this [...] as of this encounter Care Teams Insurance Licensing Supervisor Relationship Specialty Start Date End Date Lalita Perez MD PCP - General Student in [employer] 10/21/1404/21 care education/training program documented as of this encounter
--- OUTSIDE RECORDS SUMMARY | 2022-05-29 10:59 | XMS_ITS | Encounter Summary ---
:1990 Author Organization [place] Address [address] [place] [address] Care Team Providers Name Role Phone Lalita Perez MD Primary Care Provider Reason for Visit Reason Onset Date Comments Prior Auth - Medication 12/25/2016 Omeprazole 20mg caps Encounter Details Date Type Department Care Team Description 12/25/2016 Telephone [facility] Blank Lemos Prior Aut h - Medication Clinic Dev Camp MD (Omeprazole 20mg caps) [address] [place] [address] [facility] [address] [place] [address] [place] [address] [phone] Social History Tobacco Use Types Packs/Day Years [...] on Omeprazole 20 mg caps. Insurance # [phone] Pharmacy [facility] [address] ^^ [phone] I will start the PA process undercover [...] documented as of this encounter Care Teams Law Librarian Relationship Specialty Start Date End Date Lalita Perez MD PCP - General Student in organized health 10/21/1404/21 care education/training program documented as of this encounter
--- OUTSIDE RECORDS SUMMARY | 2022-05-29 10:59 | XMS_ITS | Encounter Summary ---
:1990 Author Organization [place] Address [address] [place] [address] Care Team Providers Name Role Phone Lalita Perez MD Primary Care Provider Reason for Visit Reason Onset Date Comments Refill Request 08/11/2016 TOPIRAMATE 25MG Encounter Details Date Type Department Care Team Description 08/11/2016 Refill [facility] Lalita Perez MD Refill Request Clinic [facility] (TOPIRAMATE 25MG) [address] [place] 3305 [facility] [address] [place] [address] [place] [address] [phone] Social History Tobacco Use Types Packs/Day Years [...] 08/11/2016 2:17 PM CST Prescription approved per [facility] Refill Protocol. Kylah Gomez, wind turbine erector Nurse ALOGY TEACHER Telephone Encounter - Lalita Merritt - 08/11/2016 9:47 AM CST TOPIRAMATE 25MG Last Written Prescription Date: 07/11/2016 Last Fill Quantity: 120, # refills: 0 Last Office Visit with [facility] or [facility] prescribing provider: 06/16/2016 Future Office Visit: CREATININE Date Value Ref Range Status 04/19/2016 0.64 0.52 - 1.04 mg/dL Final ALOGY TEACHER documented in this encounter Plan of [...] Finisher Relationship Specialty Start Date End Date Lalita Perez MD PCP - General Student in organized health 10/21/1404/21 care education/training program documented as of this encounter
--- OUTSIDE RECORDS SUMMARY | 2022-05-29 10:59 | XMS_ITS | Encounter Summary ---
:1990 Author Organization [place] Address [facility] [place] [address] Care Team Providers Name Role Phone Lalita Perez MD Primary Care Provider Reason for Visit Reason Comments Medication Refill escitalopram (LEXAPRO) 20 MG tablet Encounter Details Date Type Department Care Team Description 02/05/2018 Refill [facility] Dev Reyes MD (escitalopram (LEXAPRO) 3305 [facility] 20 MG tab let) [facility] [address] [place] [address] [place] [address] [place] [address] (Wo rk) Social History Tobacco [...] 02/05/2018 3:46 PM CDT Sent PHQ-9 via [employer]fetch[employer]. Brii Vazquez RN, BSN, N [facility] RN Telephone Encounter - Douglas James - [...] documented as of this encounter Care Teams Transfer Driver Relationship Specialty Start Date End Date Lalita Perez MD PCP - General Student in [facility] 10/21/1404/21 care education/training program documented as of this encounter
--- OUTSIDE RECORDS SUMMARY | 2022-05-29 10:59 | XMS_ITS | Encounter Summary ---
:1990 Author Organization [place] Address [facility] [place] [address] Care Team Providers Name Role Phone Lalita Perez MD Primary Care Provider Reason for Visit Reason Comments Urgent Care Pharyngitis since last night, swollen, h janett to swallow, chills, OTC-advil,dayquil Ear Problem Right ear pain since last ni ght. URI nasal congestion since last night. Encounter Details Date Type Department Care Team Description 08/05/2016 Office Visit [facility] Kirill Ochoa Throat p ain (Primary Dx); Urgent Care Dev Vargas PA-C Acute otitis externa of right ear, unspe cified type [address] [place] [address] [facility] [address] [place] [address] [place] [id number] Social History Tobacco Use Types Packs/Day Years [...] Comments Blood Pressure 112/70 08/05/2016 4:43 PM DIRECTOR OF MANAGED SERVICES Pulse 80 08/05/2016 4:43 PM DIRECTOR OF MANAGED SERVICES Temperature 36.8 ??C (98.2 ??F) 08/05/2016 4:43 PM DIRECTOR OF MANAGED SERVICES Respiratory Rate - - Oxygen Saturation 98% 08/05/2016 4:43 PM DIRECTOR OF MANAGED SERVICES Inhaled Oxygen Concentration - - Weight 89.8 kg (198 lb) 08/05/2016 4:43 PM DIRECTOR OF MANAGED SERVICES Height - - Body Mass Index 33.99 04/29/2016 8:18 AM CDT documented in this encounter Patient Instructions Patient InstructionsKirill Ochoa PA-C - 08/05/2016 5:12 PM DIRECTOR OF MANAGED SERVICES Images from the original note were not [...] Dry your ears with a towel or vice chair after getting wet. Also, use ear plugs [...] your health care provider ?? Seizure ?? [phone] [employer] [address] [place] [address]. All rights reserved. This information is not [...] in??1/2 cup of warm water ?? An zvtz-swn-nvfcpkk anesthetic gargle Use Medication for More Relief Vnnv-wnl-peydhfy medication can reduce sore throat symptoms. Ask [...] glands in the neck or jaw ?? [phone] [employer] [address] [place] [address], [place] [address]. All rights reserved. This information is not intended as a substitute for professional medical care. Always follow your healthcare professional's instructions. CTOR OF MANAGED SERVICES documented in this encounter Progress Notes Kirill [...] 0 ??? desogestrel-ethinyl estradiol (KARIVA) 0.15-0.02/0.01 MG (/5) per tablet Take 1 tablet by mouth [...] the next 24-48 hours after antibiotics initiated CTOR OF MANAGED SERVICES documented in this encounter Nursing Notes Evelyn [...] completed using cuff size: large ISIDRO Haro CTOR OF MANAGED SERVICES documented in this encounter Plan of Treatment Not on filedocumented as of this encounter Procedures Procedure Name Priority Date/Time Associated Diagnosis Comme nts RAPID STREP SCREEN Routine 08/05/2016 5:04 PM Throat pain Res ults for this THROAT SWAB DIRECTOR OF MANAGED SERVICES procedure are i n the results section. BETA HEMOLYTIC Routine 08/05/2016 5:04 PM Throat pain Results for this STREP GROUP A DIRECTOR OF MANAGED SERVICES procedure are in CULTURE the results section. documented in this encounter Results Beta strep group A culture (08/05/2016 5:04 PM DIRECTOR OF MANAGED SERVICES) Component Value Ref Test Analysis Performed At [facility] gist Range Method Time Signature Specimen Throat [place] Description CLINICS DEV Culture Micro No Beta [place] Streptococcus CLINICS isolated DEV Micro Report FINAL 08/07/2016 [place] Status [facility] DEV Specimen Anatomical Collection Method Collection Time Receive d Time (Source) Location / / Volume Laterality 08/05/2016 5:04 PM 6 5:09 DIRECTOR OF MANAGED SERVICES PM DIRECTOR OF MANAGED SERVICES Kirill Ochoa PA-C LAB - MICRO [facility] [place] Performing Organization Address City/[facility]/ZIP Code Phon e Number [facility] [address] [place] [phone] Strep, Rapid Screen (08/05/2016 5:04 PM DIRECTOR OF MANAGED SERVICES) Component Value Ref Test Analysis Performed At [facility] gist Range Method Time Signature Specimen Throat [facility] DEV Rapid Strep A NEGATIVE: No Group A strepto coccal antigen detected by immunoassay, await [place] Screen culture report. CLINICS DEV Micro Report FINAL 08/05/2016 [place] Status [facility] DEV Specimen Anatomical Collection Method Collection Time Receive d Time (Source) Location / / Volume Laterality Specimen from 08/05/2016 5:04 PM 08/05/20 16 5:09 throat DIRECTOR OF MANAGED SERVICES PM DIRECTOR OF MANAGED SERVICES (specimen) Kirill Ochoa PA-C LAB - MICRO [facility]AL [facility] [place] Performing Organization Address City/[facility]/ZIP Code Phon e Number [facility] [address] [place] [phone] documented in this encounter Visit Diagnoses Diagnosis Throat pain - Primary Acute otitis externa of right ear, unspe cified type documented in this encounter Additional Health Concerns Assessment Noted Time PHQ-9 Depression Total Score: 14 04/11/2016 7:23 AM CD T documented as of this encounter Care Teams Senior Contract Specialist Relationship Specialty Start Date End Date Lalita Perez MD PCP - General Student in [facility] health 10/21/1404/21 care education/training program documented as of this encounter
--- OUTSIDE RECORDS SUMMARY | 2022-05-29 10:59 | XMS_ITS | Encounter Summary ---
:1990 Author Organization [place] Address [address] [place] [address] Care Team Providers Name Role Phone Lalita Perez MD Primary Care Provider Reason for Visit Reason Onset Date Comments Medication Request 08/14/2016 ear pain Encounter Details Date Type Department Care Team Description 08/14/2016 Telephone [facility] Lalita Perez MD Medication Request (ear Clinic [facility] [place] pain) [address] [place] [address] [place] [address] [address] [place] [address] [place] [address] [phone] Social History Tobacco Use Types Packs/Day Years [...] Kapadia RN Message handled by Nurse Triage. WEAVER Telephone Encounter - Kirill Ochoa PA-C - 08/15/2016 3:07 PM HAIR WEAVER Please have patient follow up with PCP if symptoms are persistent. WEAVER Telephone Encounter - Kristie Kapadia RN - [...] reporting no improvement with ear pain with ytgkxiyr-gmyrcchkf-oplkwfgmoijreh (CORTISPORIN) 3.5-32318-1 otic suspension drops. States that the pain [...] Kapadia RN Message handled by Nurse Triage. WEAVER documented in this encounter Plan of Treatment Not on filedocumented as of this encounter Visit Diagnoses Not on filedocumented in this encounter Additional Health Concerns Assessment Noted Time PHQ-9 Depression Total Score: 14 04/11/2016 7:23 AM CD T documented as of this encounter Care Teams Nutrition Faculty Member Relationship Specialty Start Date End Date Lalita Perez MD PCP - General Student in [facility] health 10/21/1404/21 care education/training program documented as of this encounter
--- OUTSIDE RECORDS SUMMARY | 2022-05-29 10:59 | XMS_ITS | Encounter Summary ---
:1990 Author Organization [place] Address [facility] [place] [address] Care Team Providers Name Role Phone Lalita Perez MD Primary Care Provider Reason for Visit Reason Onset Date Comments Refill Request 01/14/2017 escitalopram (LEXAPR O) 20 MG tablet 01/14/17 Encounter Details Date Type Department Care Team Description 01/14/2017 Refill [facility] Lalita Perez MD Refill Request Clinic [facility] (escitalopram (LEXAPRO) [address] [place] [address] [facility] 20 MG tablet 01/14/17) [facility] [address] [place] [address] [place] [address] [phone] Social History Tobacco Use Types Packs/Day Years [...] 01/15/2017 2:03 PM CDT Prescription approved per [facility] Refill Protocol. Vandana Sosa RN Telephone Encounter - Nini Figueroa - 01/14/2017 11:31 AM CDT Medication Detail Disp Refills Start End G[facility] escitalopram (LEXAPRO) 20 MG tablet 90 tablet 2 04/10/2016 No Sig: Take 1 tablet (20 mg) by mouth daily Last Office Visit with [facility] primary care provider: 12/22/16 Last PHQ-9 score [...] as of this encounter Care Teams Manager Monitoring Relationship Specialty Start Date End Date Lalita Perez MD PCP - General Student in organized health 10/21/1404/21 care education/training program documented as of this encounter
--- OUTSIDE RECORDS SUMMARY | 2022-05-29 10:59 | XMS_ITS | Encounter Summary ---
:1990 Author Organization [place] Address Count includes the [facility] [place] [address] Care Team Providers Name Role Phone Lalita Perez MD Primary Care Provider Reason for Visit Reason Onset Date Comments Appointment 04/01/2018 scheduled for 04/08 at 2.20 pm Encounter Details Date Type Department Care Team Description 04/01/2018 Telephone [facility] Blank Lemos nt (scheduled Clinic Dev Camp MD for 04/08 at [address] [place] [address] [facility] 2.20 pm) [facility] [address] [place] [address] [place] [address] [phone] Social History Tobacco Use Types Packs/Day Years [...] PM CDT SHORT with Blank Lemos MD [facility] [address] [place] [address] [address] [facility] [address] Kristie Kapadia RN Message handled by Nurse Triage. Telephone Encounter - Blank Lemos MD - 04/05/2018 9:05 PM CDT Could see her 220pm on . Blank Lemos MD Internal Medicine/Pediatrics [facility] Telephone Encounter - Monique Leslie - [...] at?: Dev Where the form was placed: 's Box What number is listed as a contact on the form?: please complete and call for hot die picker at [phone] Additional comments: please complete and call for hot die picker at [phone] Call taken on 04/01/2018 at 4:48 PM by Evelyn Olvera documented in this encounter Plan of Treatment Not on filedocumented as of this encounter Visit Diagnoses Not on filedocumented in this encounter Additional Health Concerns Assessment Noted Time PHQ-9 Depression Total Score: 7 02/07/2018 7:00 AM CDT documented as of this encounter Care Teams Supervisor Covering And Lining Relationship Specialty Start Date End Date Lalita Perez MD PCP - General Student in organized health 10/21/1404/21 care education/training program documented as of this encounter
--- OUTSIDE RECORDS SUMMARY | 2022-05-29 10:59 | XMS_ITS | Encounter Summary ---
:1990 Author Organization [place] Address [address] [facility] [place] [address] Care Team Providers Name Role Phone Lalita Perez MD Primary Care Provider Reason for Visit Reason Comments Urgent Care Sinus Problem sinus pain, bilat ear pain, [place] green phlegm, HARPER, ST, PND x 6 days OTC: sinus, nyquil, dayquil Encounter Details Date Type Department Care Team Description 12/04/2015 Office Visit [facility] [place] [facility] r acute Care IRENE Bob nonsuppurative otitis [address] media [place] [address] S (Primary Dx) [phone] [place], [place] [id number] Social History Tobacco Use Types Packs/Day Years Used Date Smoking Tobacco: Every Day Cigarettes 1 8 Smokeless Tobacco: Never Alcohol Use Standard [...] Body Mass Index 30.88 10/02/2015 5:21 PM DEPARTMENT STORE MANAGER documented in this encounter Progress Notes Arianna [...] Sinus Problem sinus pain, bilat ear pain, [place] green phlegm, HARPER, ST, PND x 6 [...] (81.602 kg). BP completed using cuff size: shikha Boykin CMA 12/04/2015 9:09 PM documented in this encounter Plan of Treatment Not on filedocumented as of this encounter Visit Diagnoses Diagnosis Other acute nonsuppurative otitis media of both ears - Primary documented in this encounter Care Teams Laboratory Manager Relationship Specialty Start Date End Date Lalita Perez MD PCP - General Student in [employer] 10/21/1404/21 care education/training program documented as of this encounter
--- OUTSIDE RECORDS SUMMARY | 2022-05-29 10:59 | XMS_ITS | Encounter Summary ---
:1990 Author Organization [place] Address [address] [place] [address] Care Team Providers Name Role Phone Lalita Perez MD Primary Care Provider Reason for Visit Reason Onset Date Comments Call Back 05/05/2016 Encounter Details Date Type Department Care Team Description 05/05/2016 Telephone [facility] Lalita Toledo MD Call Back [address] [facility] - [place] [address] [address] [facility] [phone] [facility] [place] [address] (Wo rk) Social [...] SE from abx. Call back # is [phone]. Please call pt to go over the sx's. Thanks. Alvaro harvest supervisor Nurse documented in this encounter Plan of Treatment Not on filedocumented as of this encounter Visit Diagnoses Not on filedocumented in this encounter Additional Health Concerns Assessment Noted Time PHQ-9 Depression Total Score: 14 04/11/2016 7:23 AM CD T documented as of this encounter Care Teams Plastic Finisher Relationship Specialty Start Date End Date Lalita Perez MD PCP - General Student in [employer] health 10/21/1404/21 care education/training program documented as of this encounter
--- OUTSIDE RECORDS SUMMARY | 2022-05-29 10:59 | XMS_ITS | Encounter Summary ---
:1990 Author Organization [place] Address [address] [place] [address] Care Team Providers Name Role Phone Blank Lemos MD Primary Care Provider Reason for Visit Reason Comments Forms UTI Encounter Details Date Type Department Care Team Description 04/22/2018 Office Visit [facility] Blank Lemos Dysuria ( Primary Dx); Clinic Dev Camp MD Acute cystitis without hematuria; [address] [place] [address] [facility] Other migraine without status migrainosus, not intractable [address] [facility] [address] [place]ÉNDEZ [address] K[place]én[place] [address] Social History Tobacco Use [...] this winter for physical/PAP. Blank Lemos MD [facility] documented in this encounter [...] CDT CLINICS DEV Squamous Few FEW^Few 04/22/2018 [facility] Epithelial /LPF /LPF 9:01 AM CDT CLINICS EAGA N Urine Bacteria Urine Few (A) NEG^Negati 04/22/2018 [facility] ve /HPF 9:01 AM CDT CLINICS DEV Specimen Anatomical Collection Method Collection Time Receive d Time (Source) Location / / Volume Laterality 04/22/2018 8:53 AM 8 8:55 CDT AM CDT Blank Lemos MD LAB - URINE ORDERABLES Performing Organization Address City/State/ZIP Code Phon e Number [facility] [address] [place] [address] (ABNORMAL) UA reflex to Microscopic and Culture (04/22/2018 8:53 AM CDT) Patholo gist Method Time Signature Color Urine Yellow 04/22/2018 [facility] 9:01 AM CDT CLINICS DEV Appearance Urine Clear 04/22/2018 [facility] 9:01 AM CDT CLINICS DEV Glucose Urine Negative NEG^Negat 04/22/2018 [facility] yakelin mg/dL 9:01 AM CDT CLINICS DEV Bilirubin Urine Negative NEG^Negat 04/22/2018 [facility]akelin 9:01 AM CDT CLINICS DEV Ketones Urine Negative NEG^Negat 04/22/2018 [facility] y[place]elin mg/dL 9:01 AM CDT CLINICS DEV Specific [place] 1.020 1.003 - 04/22/2018 [facility] Urine 1.035 9:01 AM CDT CLINICS DEV Blood Urine Moderate (A) NEG^Negat 04/22/2018 [facility] yakelin 9:01 AM CDT CLINICS DEV pH Urine 7.0 5.0 - 7.0 04/22/2018 [facility] pH 9:01 AM CDT CLINICS DEV Protein Albumin Negative NEG^Negat 04/22/2018 [facility] Urine yakelin mg/dL 9:01 AM CDT CLINICS DEV Urobilinogen 0.2 0.2 - 1.0 04/22/2018 [facility] Urine EU/dL 9:01 AM CDT CLINICS DEV Nitrite Urine Negative NEG^Negat 04/22/2018 [facility] yakelin 9:01 AM CDT CLINICS DEV Leukocyte Trace (A) NEG^Negat 04/22/2018 [facility] Esterase Urine yakeiln 9:01 AM CDT CLINICS DEV Source Midstream 04/22/2018 [facility] Urine 8:55 AM CDT CLINICS DEV Specimen (Source) Anatomical Collection Method Collection Time Re ceived Time Location / / Volume Laterality Examination of 04/22/2018 8:53 04/22/2018 8:55 midstream urine AM CDT AM CDT specimen (procedure) Blank Lemos MD LAB - URINE ORDERABLES Performing Organization Address City/State/ZIP Code Phon e Number [facility] [address] [facility] [place] [address] documented in this encounter Visit Diagnoses Diagnosis Dysuria - Primary Acute cystitis without hematuria Acute cystitis Other migraine without status migrainosu s, not intractable documented in this encounter Additional Health Concerns Assessment Noted Time PHQ-9 Depression Total Score: 7 02/07/2018 7:00 AM CDT documented as of this encounter Care Teams Senior Java Ui Developer Relationship Specialty Start Date End Date Blank Lemos MD PCP - General Internal Medicine 04/22/[address] [place] [address] [place] [id number] documented as of this encounter
--- OUTSIDE RECORDS SUMMARY | 2022-05-29 10:59 | XMS_ITS | Encounter Summary ---
:1990 Author Organization [facility] Address [address] [place] [address]. 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 [address] [place] [address] FERNANDO RICE [phone] K[place]AN MÉNDEZ [address] Referral ID Status Reason Start Date Expiration Date Visits Requ ested Visits Authorized [id number] Closed 04/10/2016 04/10/2017 1 1 Reason for Visit Reason Comments Physical Recheck Medication Encounter Details Date Type Department Care Team Description 04/10/2016 Office Visit [facility] Blank Damon hesohan lt maintenance (Primary Dx); Dev Stanley APRN Non morbid obesity, unspecif ied obesity type; [address] [facility] KAILEE Encounter for surveillance of other cont raceptive; [place]én[place] [phone] [place] [address] Generalized anxiety disorder ; [phone] FERNANDO RICE Bipolar I disorder (H); [place]DE[place] [address] Tobacco abuse; [phone] Need for vaccin ation; (Work) Stomach upset [...] this encounter Progress Notes Blank Damon APRN DRYING EQUIPMENT OPERATOR - 04/10/2016 2:48 PM CDT SUBJECTIVE: CC: [...] recommended All Histories reviewed and updated in [facility]. ROS: C: NEGATIVE for fever, chills, [...] list, Allergies, and Medical/Social/Surgical histories reviewed in [facility] andupdated as appropriate. OBJECTIVE: BP 102/58 [...] tablet; Refill: 2 -Recommended she f/u with [facility], where she is already established. -Increase [...] Lung CA Screening Blank Damon APRN CNP [facility] documented in this encounter Nursing Notes Rhianna [...] Name Type Priority Associated Diagnoses Order S [facility] MENTAL HEALTH REFERRAL Referral Routine Bipolar I [...] documented as of this encounter Care Teams Leg Man Relationship Specialty Start Date End Date Lalita Perez MD PCP - General Student in organized health 10/21/1404/21 care education/training program documented as of this encounter
--- OUTSIDE RECORDS SUMMARY | 2022-05-29 10:59 | XMS_ITS | Encounter Summary ---
:1990 Author Organization [place] Address [address] [place] [address] Care Team Providers Name Role Phone Lalita Perez MD Primary Care Provider Reason for Visit Reason Onset Date Comments Medication Request 05/08/2016 Imitrex Encounter Details Date Type Department Care Team Description 05/08/2016 Telephone [facility] Blank Mary Medication Request 1440 [facility] GINNY Stanley ENTRY LEVEL WEB DEVELOPER (Imitrex) [place]én[place] [phone] 100[address] [facility] [phone] [facility] [place] [address] (Wo rk) Social History [...] script to the pharmacy as appropriate. [facility] [address] in [place] Phone Number Patient can be reached at: Home number on file [phone] (home) Best Time: anytime Can we leave a detailed message on this number? YES Kajal Jeong, Lei Maker [facility] documented in this encounter Plan of Treatment Not on filedocumented as of this encounter Visit Diagnoses Diagnosis Other migraine without status migrainosu s, not intractable - Primary documented in this encounter Additional Health Concerns Assessment Noted Time PHQ-9 Depression Total Score: 14 04/11/2016 7:23 AM CD T documented as of this encounter Care Teams Emr Analyst Relationship Specialty Start Date End Date Lalita Perez MD PCP - General Student in [facility] health 10/21/1404/21 care education/training program documented as of this encounter
--- OUTSIDE RECORDS SUMMARY | 2022-05-29 10:59 | XMS_ITS | Encounter Summary ---
:1990 Author Organization [facility] Address [address] [place] [address] Care Team Providers Name Role Phone Lalita [...] Type Department Care Team Description 03/03/2016 Telephone [facility] Lalita Sepulveda MD Refill Request 1440 [employer] [facility] (AZURETTE TABLETS 28'S) [place] Vasquez [phone] 12[address] [facility] [phone] [facility] [place] [address] (Wo rk) Social History [...] 03/05/2016 9:01 AM CDT Prescription approved per [facility] Refill Protocol. Patient due for physical after 04/05/16. Routing to Station Nurse Pool, please call to assist patient in scheduling a physical after 04/05/16. Telephone Encounter - Lalita Merritt - 03/03/2016 8:07 AM CDT AZURETTE TABLETS 28'S Last Written Prescription Date: 04/05/2015 Last Fill Quantity: 90, # refills: 3 Last Office Visit with [facility], P or [facility] prescribing provider: 10/02/2015 documented in this encounter Plan of Treatment Not on filedocumented as of this encounter Visit Diagnoses Diagnosis Contraceptive management - Primary Unspecified contraceptive management documented in this encounter Care Teams Attendant Child Activity Relationship Specialty Start Date End Date Lalita Perez MD PCP - General Student in [facility] 10/21/14 04/21/18 health care education/training program Blank Lemos, PCP - General Internal Medicine 04/22/[address] [place] [address] [address] [place], [place] [id number] Blank Lemos, PCP - Assigned PCP 04/25/[address] [place] [address] [address] [place], [place] [id number] Blank Lemos, Assigned PCP 04/25/[address] [place] [address] [address] [place], [place] [id number] Hardeep Cárdenas Personal Advocate & 06/17/1901/30 Liaison (PAL) Kathleen Lacy CNM Assigned OBGYN Provider 06/01/20 11/23/21 [place] [address] Anabell Shannon Personal Advocate & 10/25/20 Liaison (PAL) Rand Kam, Assigned OBGYN Provider 11/24/21 12/28/21 SEPARATOR INSERTER CNM [address] [place], [place] [phone] Sharita Frias Assigned OBGYN Provider 01/04/2205/31 MD [place] [address] [place], [place] [phone] Kathleen Lacy CNM Assigned OBGYN Provider 12/29/21 01/03/22 [address] [place], [place] [phone] Kathleen Lacy CNM Assigned OBGYN Provider 01/18/22 01/24/22 [address] [place], [place] [phone] Sharita Frias Assigned OBGYN Provider 01/25/22 [place] [address] [place] [address] documented as of this encounter
--- OUTSIDE RECORDS SUMMARY | 2022-05-29 10:59 | XMS_ITS | Encounter Summary ---
:1990 Author Organization [place] Address [address] [place] [address] Care Team Providers Name Role Phone Lalita Perez MD Primary Care Provider Reason for Visit Reason Onset Date Comments Refill Request 07/10/2016 Encounter Details Date Type Department Care Team Description 07/10/2016 Refill [facility] Lalita Toledo MD Refill Request 1440 [facility] [place]cazar [phone] [facility] [phone] [facility] [place] [address] (Wo rk) Social History [...] Kristie Kapadia RN - 07/10/2016 12:32 PM PAINT AND TABLE EDGER topamax Last Written Prescription Date: 06/16/16 Last Fill Quantity: 70, # refills: 0 Last Office Visit with [facility] or [facility] prescribing provider: 06/16/16 BP Readings from [...] 70 tablet; Refill: 0 Prescription approved per [facility] Refill Protocol. Kristie Kapadia RN Message handled by Nurse Triage. T AND TABLE EDGER documented in this encounter Plan of Treatment [...] documented as of this encounter Care Teams Conservation Enforcement Officer Relationship Specialty Start Date End Date Lalita Perez MD PCP - General Student in [facility] 10/21/1404/21 care education/training program documented as of this encounter
--- OUTSIDE RECORDS SUMMARY | 2022-05-29 10:59 | XMS_ITS | Encounter Summary ---
:1990 Author Organization [place] Address [facility] [place] [address] Care Team Providers Name Role Phone Lalita Perez MD Primary Care Provider Reason for Visit Reason Comments Abnormal Bleeding Problem Encounter Details Date Type Department Care Team Description 01/28/2017 Office Visit [facility] [place], Abnormal u terine and vaginal bleeding, unspecified (Primary Dx); Clinic Dev Weinberg MD Cyst of ovary, unspecified laterality; [address] [place] [address] [facility] Migra ine without aura and without status migrainosus, not intractable [facility] [address] [place] [address] [place]én[place] [address] Social History Tobacco Use [...] in a while. Surgery for endometriosis in [phone]. Ultrasounds very frequently to follow frequent ovarian [...] Per Care Everywhere, has 2 pelvic US. [id number], showed left cyst. In 2010, no cyst. [...] with acetaminophen if possible. Sultana Fonseca MD [facility] I discussed this case in depth with Dr. Fonseca and agree with the alcantara components of the history,assessment and plan. Symptoms sound like anovulatory bleeding. Time brwoer likely related to rapid weight loss. Will [...] Signature Prolactin 10 3 - 27 ug/L [facility] Comment: Reference ranges apply to non-p regnant females only. Specimen Anatomical Collection Method Collection Time Receive d Time (Source) Location / / Volume Laterality Blood specimen 01/28/2017 9:12 AM 017 9:17 (specimen) CDT AM CDT Lily Encarnacion MD LAB - BLOOD ORDERABLES Performing Organization Address City/[facility]/ZIP Code Phon e Number [facility] [address] [place] [address] [facility] TSH with free T4 reflex (01/28/2017 9:12 AM CDT) athologist Signature TSH 1.52 0.40 - 4.00 [facility] mU/L [facility] Specimen Anatomical Collection Method Collection Time Receive d Time (Source) Location / / Volume Laterality Blood specimen 01/28/2017 9:12 AM 017 9:17 (specimen) CDT AM CDT Lily Encarnacion MD LAB - BLOOD ORDERABLES Performing Organization Address City/[facility]/ZIP Code Phon e Number [facility] [address] [place] [address] Hemoglobin A1c (01/28/2017 9:12 AM CDT) athologist Signature Hemoglobin A1C 5.0 4.3 - 6.0 [facility] % [facility] Specimen Anatomical Collection Method Collection Time Receive d Time (Source) Location / / Volume Laterality Blood specimen 01/28/2017 9:12 AM 017 9:17 (specimen) CDT AM CDT Lily Encarnacion MD LAB - BLOOD ORDERABLES Performing Organization Address City/[facility]/ZIP Code Phon e Number [address] [address] [phone] Hemoglobin (01/28/2017 9:12 AM CDT) athologist Signature Hemoglobin 13.5 11.7 - 15.7 [place] g/dL [facility] Specimen Anatomical Collection Method Collection Time Receive d Time (Source) Location / / Volume Laterality Blood specimen 01/28/2017 9:12 AM 017 9:17 (specimen) CDT AM CDT Lily Encarnacion MD LAB - BLOOD ORDERABLES Performing Organization Address City/[facility]/ZIP Code Phon e Number [address] [address] [phone] documented in this encounter Visit [...] documented as of this encounter Care Teams Sky Cap Relationship Specialty Start Date End Date Lalita Perez MD PCP - General Student in [facility] health 10/21/1404/21 care education/training program documented as of this encounter
--- OUTSIDE RECORDS SUMMARY | 2022-05-29 10:59 | XMS_ITS | Encounter Summary ---
:1988 Author Organization [place] Address [facility] [place] [address] Care Team Providers Name Role Phone Lalita Perez MD Primary Care Provider Reason for Visit Reason Comments Hemoptysis Encounter Details Date Type Department Care Team Description [facility] [address] [place] [address] [place] [phone] Hemoptysis; [facility] Kyleigh Sandoval MD [facility] [address] [place], [place] [address] Upper respiratory tract infection, unspe cified type [address] [place] [address] Social History Tobacco Use Types Packs/Day Years [...] help loosen secretions in the lungs. ?? Qeth-smq-oouwrpm cough medicines that contain dextromethorphan may help [...] Rapid heartbeat ?? Weakness or dizziness ?? [id number] [employer] [place] [address]. All rights reserved. This information is not [...] and the provider's statements to me. 04/19/2016 [facility] EM[facility] Kyleigh Sandoval MD 04/20/16 [...] Basic metabolic panel (04/19/2016 9:25 PM CDT) [facility] Method Time Signature Sodium 142 133 - 144 [facility] mmol/L [facility] Potassium 3.8 3.4 - 5.3 [facility] mmol/L [facility] Chloride 110 (H) 94 - 109 [facility] mmol/L [facility] Carbon Dioxide 27 20 - 32 [facility] mmol/L [facility] Anion Gap 5 3 - 14 [facility] mmol/L [facility] Glucose 79 70 - 99 [place] mg/dL [facility] Urea Nitrogen 8 7 - 30 [facility] mg/dL [facility] Creatinine 0.64 0.52 - [facility] 1.04 [facility] mg/dL HOSPITAL GFR Estimate >90 >60 [place] Non GFR Calc mL/min/1. [facility] 7m2 HOSPITAL GFR Estimate >90 >60 [place] If Black GFR Calc mL/min/1. [facility] 7m2 HOSPITAL Calcium 8.8 8.5 - [place] 10.1 [facility] mg/dL HOSPITAL Specimen Anatomical Collection Method Collection Time Receive d Time (Source) Location / / Volume Laterality Blood specimen 04/19/2016 9:25 PM 016 9:28 (specimen) CDT PM CDT Kyleigh Sandoval MD LAB - BLOOD ORDERABLES Performing Organization Address City/State/ZIP Code Phon e Number [place] [address] [address] [place] [address] [facility] [address] [phone] CBC + differential (04/19/2016 9:25 PM CDT) [facility] gist Method Time Signature WBC 9.2 4.0 - [place] 11.0 [facility] 10e9/L [facility] RBC Count 4.24 3.8 - 5.2 [place] 10e12/L [facility] Hemoglobin 13.2 11.7 - [place] 15.7 g/dL [facility] Hematocrit 38.5 35.0 - [place] 47.0 % [facility] MCV 91 78 - 100 [place] fl [facility] MCH 31.1 26.5 - [place] 33.0 pg [facility] MCHC 34.3 31.5 - [place] 36.5 g/dL [facility] RDW 12.5 10.0 - [place] 15.0 % [facility] Platelet Count 429 150 - 450 [place] 10e9/L [facility] Diff Method Automated [place] Method [facility] % Neutrophils 42.4 % [facility] % Lymphocytes 46.3 % [facility] % Monocytes 6.9 % [facility] % Eosinophils 3.7 % [facility] % Basophils 0.5 % [facility] % Immature 0.2 % [place] Granulocytes [facility] Nucleated RBCs 0 0 /100 [facility] Absolute 3.9 1.6 - 8.3 [place] Neutrophil 10e9/L [facility] Absolute 4.3 0.8 - 5.3 [place] Lymphocytes 10e9/L [facility] Absolute 0.6 0.0 - 1.3 [place] Monocytes 10e9/L [facility] Absolute 0.3 0.0 - 0.7 [place] Eosinophils 10e9/L [facility] Absolute 0.1 0.0 - 0.2 [place] Basophils 10e9/L [facility] Abs Immature 0.0 0 - 0.4 [place] Granulocytes 10e9/L [facility] Absolute 0.0 [place] Nucleated RBC [facility] Specimen Anatomical Collection Method Collection Time Receive d Time (Source) Location / / Volume Laterality Blood specimen 04/19/2016 9:25 PM 016 9:28 (specimen) CDT PM CDT Kyleigh Sandoval MD LAB - BLOOD ORDERABLES Performing Organization Address [facility] Phon e Number [place] [phone] [place] [phone] D dimer quantitative (04/19/2016 9:25 PM CDT) athologist Signature D Dimer 0.5 0.0 - 0.50 [facility] ug/ml [facility] Comment: This D-dimer assay is intended for use i n conjuntion with a clinical pretest probability assessment model to exclude pulmonary embolism (PE) and as an aid in the diagnosis of deep venous thrombo sis (DVT) in outpatients suspected of PE or DVT. The cut-off value is 0.5??g/mL [facility]. Specimen Anatomical Collection Method Collection Time Receive d Time (Source) Location / / Volume Laterality Blood specimen 04/19/2016 9:25 PM 016 9:28 (specimen) CDT PM CDT Kyleigh Sandoval MD LAB - BLOOD ORDERABLES Performing Organization Address City/[facility] Phon e Number M [facility] [address] [place], [place] [address] [address] [phone] documented in this encounter Visit Diagnoses Diagnosis Hemoptysis Upper respiratory tract infection, unspe cified type documented in this encounter Additional Health Concerns Assessment Noted Time PHQ-9 Depression Total Score: 14 04/11/2016 7:23 AM CD T documented as of this encounter Care Teams Nut Former Relationship Specialty Start Date End Date Lalita Perez MD PCP - General Student in [facility] 10/21/1404/21 care education/training program documented as of this encounter
--- OUTSIDE RECORDS SUMMARY | 2022-05-29 10:59 | XMS_ITS | Encounter Summary ---
:1988 Author Organization [place] Address [facility] [place] [address] Care Team Providers Name Role Phone Lalita Perez MD Primary Care Provider Reason for Visit Reason Comments Anxiety Depression Encounter Details Date Type Department Care Team Description 08/17/2017 Office Visit [facility] Lily Encarnacion anxiety disorder; Clinic Dev Reyes MD Bipolar I disorder (H); [address] [facility] Migraine without aura and without status migrainosus, not intractable [facility] [address] [place] [address] [address] [phone] [place], [place] [address] Social History Tobacco Use Types Packs/Day [...] Comments Blood Pressure 100/64 08/17/2017 4:47 PM BELT LOOP MAKER Pulse 86 08/17/2017 4:47 PM BELT LOOP MAKER Temperature 36.9 ??C (98.4 ??F) 08/17/2017 4:47 PM BELT LOOP MAKER Respiratory Rate - - Oxygen Saturation 99% 08/17/2017 4:47 PM BELT LOOP MAKER Inhaled Oxygen Concentration - - Weight 73.3 kg (161 lb 11.2 oz) 08/17/2017 4:47 PM BELT LOOP MAKER Height 161.3 cm (5' 3.5) 08/17/2017 4:47 PM BELT LOOP MAKER Body Mass Index 28.19 08/17/2017 4:47 PM BELT LOOP MAKER documented in this encounter Patient Instructions Patient InstructionsSerumLily MD - 08/17/2017 4:40 PM BELT LOOP MAKER 1. Refilled lexapro for 6 months - can complete depression screen over the phone or mychart in 6 months if doing well and refill 2. If not improving, would refer to Psychiatric Nurse practitioner in [place] to discuss other options 3. Refilled topamax 4. Follow-up in 1 year LOOP MAKER documented in this encounter Progress Notes Lily [...] referred to psychiatry but did not go. [place] had good response to Lexapro and feels [...] 04/10/2016 08/17/2017 Total Score 11 13 PHQ-9 [place] PHQ-9 Any Language GAD7 Suicide Assessment Five-step [...] - sooner if not controlled Lily Encarnacion [facility] DEV LOOP MAKER documented in this encounter Nursing Notes Saira [...] lb 11.2 oz (73.3 kg). Medication Reconciliation: complete Saira Singh LPN LOOP MAKER documented in this encounter Plan of [...] as of this encounter Care Teams Technical Services Representative Relationship Specialty Start Date End Date Lalita Perez MD PCP - General Student in [facility] 10/21/1404/21 care education/training program documented as of this encounter
--- OUTSIDE RECORDS SUMMARY | 2022-05-29 10:59 | XMS_ITS | Encounter Summary ---
:1990 Author Organization [place] Address [facility] access [facility]0 [place] [address] Care Team Providers Name Role Phone Lalita Perez MD Primary Care Provider Reason for Visit Reason Comments Forms Encounter Details Date Type Department Care Team Description 12/22/2016 Office Visit [facility] Blank Lemos Gastroeso phageal reflux disease without esophagitis (Primary Dx); Clinic Dev Camp MD History of MMR vaccination; [address] RUQ abdomi nal pain; [facility] DR Migraine without aura and without status migrainosus, not intractable [address] [place] [address] [place] [address] Social History Tobacco Use Types Packs/Day [...] the following health issues: FMLA paperwork from [facility] [employer] for ongoing migraines. 1. 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 Problem [...] if pain not improving. Blank Lemos MD [facility] DEV documented in this encounter Nursing Notes Maritza [...] Rubeola Antibody IgG (12/22/2016 10:15 AM CDT) P athologist Signature Rubeola 2.0 (H) 0.0 - 0.8 [facility] (Measles) [facility] [place] [facility] Antibody IgG [facility] Comment: Positive, suggests prev. exposure [...] Organization Address City/State/ZIP Code Phon e Number [address] Rubella Antibody IgG Quantitative (12/22/2016 10:15 AM CDT) Analysis Performed At Patho logist Time Signature Rubella Antibody 18 IU/mL [facility] IgG Quantitative [facility] Comment: Positive. ??Suggests previous exposure [...] LAB - BLOOD ORDERABLES Performing Organization Address City/[facility] Code Phon e Number [address] (ABNORMAL) Mumps Antibody IgG (12/22/2016 10:15 AM CDT) athologist Signature Mumps Antibody 2.1 (H) 0.0 - 0.8 [facility] IgG AI [facility] Comment: Positive, suggests prev. exposure [...] Organization Address City/State/ZIP Code Phon e Number [address] (ABNORMAL) Comprehensive metabolic panel (12/22/2016 10:15 AM CDT) Patholo gist Method Time Signature Sodium 143 133 - 144 [place] mmol/L [facility] Potassium 4.2 3.4 - 5.3 [place] mmol/L [facility] Chloride 112 (H) 94 - 109 [place] mmol/L [facility] Carbon Dioxide 23 20 - 32 [place] mmol/L [facility] Anion Gap 8 3 - 14 [place] mmol/L [facility] Glucose 82 70 - 99 [place] mg/dL [facility] Urea Nitrogen 13 7 - 30 [place] mg/dL [facility] Creatinine 0.72 0.52 - [place] 1.04 [facility] mg/dL [facility][1] GFR Estimate >90 >60 [place] Non GFR Calc mL/min/1. CLINICS 7m2 [facility][1] GFR Estimate If >90 >60 [place] Black GFR Calc mL/min/1. CLIN ICS 7m2 [facility][1] Calcium 9.2 8.5 - [place] 10.1 [facility] mg/dL [facility][1] Bilirubin Total 0.3 0.2 - 1.3 [place] mg/dL [facility] Albumin 3.6 3.4 - 5.0 [place] g/dL [facility] Protein Total 7.0 6.8 - 8.8 [place] g/dL [facility] Alkaline 78 40 - 150 [place] Phosphatase U/L [facility] ALT 55 (H) 0 - 50 [place] U/L [facility] AST 22 0 - 45 [place] U/L [facility] Specimen Anatomical Collection Method Collection Time Receive d Time (Source) Location / / Volume Laterality Blood specimen 12/22/2016 10:15 7 (specimen) AM CDT 10:16 AM CDT Blank Lemos MD LAB - BLOOD ORDERABLES Performing Organization Address City/State/ZIP Code Phon e Number [facility] [address] [place] [address] documented in this encounter Visit Diagnoses Diagnosis [...] documented as of this encounter Care Teams Data Processing Clerk Relationship Specialty Start Date End Date Lalita Perez MD PCP - General Student in [facility] health 10/21/1404/21 care education/training program documented as of this encounter
--- NOTE | 2022-05-29 11:00 | CRLHL7_ITS ---
For Patients: As a result of the Century Cures Act, medical imaging exams and procedure reports are released immediately into your electronic medical record. You may view this report before your referring provider. If you have questions, please contact your health care provider. INDICATION: Third trimester scan, evaluate growth. obesity affecting COMPARISON: 04/09/2022 TECHNIQUE: Real time rayo scale imaging of the fetus was performed. FINDINGS: Sonographic imaging demonstrates a single living intrauterine gestation. Fetus demonstrates a regular cardiac rate of 139 beats per minute. Fetus has a vertex position. The placenta lies anteriorly. Amniotic fluid volume appears normal and there is a single deepest vertical pocket: 9.1 cm. CAROLE 22.0 cm. The estimated weight is 3342gm which lies at the 94th %. On the prior OB ultrasound exam dated 04/09/2022 the estimated weight was at the 66th%. BPD 22nd percentile. HC 23rd percentile. AC greater than 97th percentile. FL 47th percentile. The HC/AC ratio measures 0.89 range (0.92-1.06). Normal gross body movements, tone and respiratory activity. IMPRESSION: Biophysical profile 03/17. Sonographic gestational age 36 weeks 4 days and sonographic due date of 06/22/2022. Sonographic age 5 days ahead of the clinical age. Estimated weight 94th percentile. Abdominal circumference greater than 97th percentile. Dictated by Junior Woodruff MD @ 05/29/2022 11:51:31 AM (Electronically Signed)
--- OUTSIDE RECORDS SUMMARY | 2022-05-29 11:00 | XMS_ITS | Encounter Summary ---
:1990 Author Organization [place] Address [address] [place] [address] Care Team Providers Name Role Phone Lalita Perez MD Primary Care Provider Reason for Visit Reason Onset Date Comments Panel Management 01/11/2015 Encounter Details Date Type Department Care Team Description 01/11/2015 Telephone [facility] Eag Lalita [place] MD Panel Management [address] [facility] CLINICS - [place]cazar [phone] [facility] [phone] [facility] [place] [address] (Wo rk) [...] Review Date of last visit with a [place] provider: on 11/28/14. Date of next visit with a [place] provider: None. Problem List Patient Active Problem [...] on filedocumented in this encounter Care Teams Front Maker Lockstitch Relationship Specialty Start Date End Date Lalita Perez MD PCP - General Student in [facility] health 10/21/1404/21 care education/training program documented as of this encounter
--- OUTSIDE RECORDS SUMMARY | 2022-05-29 11:00 | XMS_ITS | Encounter Summary ---
:1990 Author Organization [place] Address [facility] [place] [address] Care Team Providers Name Role Phone Lalita Perez MD Primary Care Provider Encounter Details Date Type Department Care Team Description 04/09/2015 Orders Only [facility] Eag an Routine general medical [address] [place] [address] care facility [phone] Social History Tobacco Use Types Packs/Day Years [...] athologist Signature Cholesterol 210 (H) <200 mg/dL [facility] Comment: LDL Cholesterol is the primary guide to therapy. The NCEP recommends further evaluation of: patients with cholesterol greater than 200 mg/dL if additional risk facto rs are present, cholesterol greater than 240 mg/dL, triglycerides greater than 1 50 mg/dL, or HDL less than 40 mg/dL. Triglycerides 234 (H) 0 - 150 mg/dL [facility] HDL Cholesterol 50 (L) >50 mg/dL [facility] LDL Cholesterol Calculated 113 0 - 129 mg/dL [facility] Comment: LDL Cholesterol is the primary guide to therapy: LDL-cholesterol goal in high risk patients is <100 mg/dL and in very high risk patients is <70 mg/dL. VLDL-Cholesterol 47 (H) 0 - 30 mg/dL [facility] Cholesterol/HDL Ratio 4.2 0.0 - 5.0 [facility] Specimen Anatomical Collection Method Collection Time Receive d Time (Source) Location / / Volume Laterality Blood specimen 04/09/2015 8:24 AM 015 8:29 (specimen) CDT AM CDT Lailta Perez MD LAB - BLOOD ORDERABLES Performing Organization Address City/State/ZIP Code Phon e Number [facility] [address] [place] [address] Glucose (04/09/2015 8:24 AM CDT) athologist Signature Glucose 87 70 - 99 [facility] mg/dL [facility] Specimen Anatomical Collection Method Collection Time Receive d Time (Source) Location / / Volume Laterality Blood specimen 04/09/2015 8:24 AM 015 8:29 (specimen) CDT AM CDT Lalita Perez MD LAB - BLOOD ORDERABLES Performing Organization Address City/State/ZIP Code Phon e Number [facility] [address] [place] [address] documented in this encounter Visit Diagnoses Diagnosis Routine general medical examination at a health care facility documented in this encounter Care Teams Cable Television Program Director Relationship Specialty Start Date End Date Lalita Perez MD PCP - General Student in [facility] health 10/21/1404/21 care education/training program documented as of this encounter
--- OUTSIDE RECORDS SUMMARY | 2022-05-29 11:00 | XMS_ITS | Encounter Summary ---
:1990 Author Organization [place] Address [address] [place] [address] Care Team Providers Name Role Phone Joseph Montague MD Primary Care Provider Reason for Visit Reason Comments Physical Encounter Details Date Type Department Care Team Description 04/05/2015 Office Visit [facility] Joseph Montague MD Routine general medical examination at a health care facility (Primary Dx); [facility] - GABRIEL (generalized anxiety dis order); [address] [employer] [place] Contraceptive management [place] [phone] [facility] [phone] [facility] [place] [address] Social History Tobacco Use [...] this encounter Patient Instructions Patient InstructionsKiersten Oliveira, SUPPLIES PACKER - 04/05/2015 3:22 PM CDT We treva [...] HDL, LDL, TRIG, CHOLHDLRATIO in the last [address] hours. Reviewed orders with patient. Reviewed health maintenance and updated orders accordingly - Yes Mammo Decision Support: Mammogram not appropriate for this patient based on age. Last Mammo:No results found. History of abnormal Pap smear: NO - age 21-29 PAP every 3 years recommended All Histories reviewed and updated in [facility]. Past Medical History Diagnosis Date ??? Generalized [...] D/w Dr. Mccormick, attending Joseph Montague MD [facility] CHRISTINA documented in this encounter Nursing [...] (84.823 kg). BP completed using cuff size: regular Kiersten Oliveira MA documented in this encounter [...] athologist Signature Cholesterol 210 (H) <200 mg/dL [facility] Comment: LDL Cholesterol is the primary guide to therapy. The NCEP recommends further evaluation of: patients with cholesterol greater than 200 mg/dL if additional risk facto rs are present, cholesterol greater than 240 mg/dL, triglycerides greater than 1 50 mg/dL, or HDL less than 40 mg/dL. Triglycerides 234 (H) 0 - 150 mg/dL [facility] HDL Cholesterol 50 (L) >50 mg/dL [facility] LDL Cholesterol Calculated 113 0 - 129 mg/dL [facility] Comment: LDL Cholesterol is the primary guide to therapy: LDL-cholesterol goal in high risk patients is <100 mg/dL and in very high risk patients is <70 mg/dL. VLDL-Cholesterol 47 (H) 0 - 30 mg/dL [facility] Cholesterol/HDL Ratio 4.2 0.0 - 5.0 [facility] Specimen Anatomical Collection Method Collection Time Receive d Time (Source) Location / / Volume Laterality Blood specimen 04/09/2015 8:24 AM 015 8:29 (specimen) CDT AM CDT Joseph Montague MD LAB - BLOOD ORDERABLES Performing Organization Address City/[facility]/ZIP Code Phon e Number [facility] [address] [place] [address] Glucose (04/09/2015 8:24 AM CDT) P athologist Signature Glucose 87 70 - 99 [facility] mg/dL [facility] Specimen Anatomical Collection Method Collection Time Receive d Time (Source) Location / / Volume Laterality Blood specimen 04/09/2015 8:24 AM 015 8:29 (specimen) CDT AM CDT Joseph Montague MD LAB - BLOOD ORDERABLES Performing Organization Address City/[facility]/ZIP Code Phon e Number [facility] [address], [place] [address] PAP IMAGED THIN LAYER SCREEN (04/05/2015 12:00 AM CDT) Component Value Ref Test Analysis [facility]formed [facility] gist Range Method Time Signature PAP NIL COPATH Copath Report COPATH Patient Name: RENA RESENDIZ MR#: [id number] Specimen #: [id number] Collected: 04/05/2015 Received: 04/06/2015 Reported: 04/09/2015 13:57 [...] CESARIO Pride (ASCP) Processed and screened at [facility] Ce randal [facility] CLINICAL HISTORY: Papanicolaou Test Limitations: ??Cervical cytology is a scre ening test with limited sensitivity; regular screening is critical for cancer prevention; Pap tests are primarily effective for the diagnosis/prevention of squamous cell carcinoma, not adenoca rcinomas or other cancers. TESTING LAB LOCATION: [address] ??[address] COLLECTION SITE: Client: ??[facility] Location: [facility] (R) Specimen (Source) Anatomical Collection [...] management documented in this encounter Care Teams Hearing Aide Technician Relationship Specialty Start Date End Date Joseph Montague MD PCP - General Student in [facility] 10/21/1404/21 care education/training program documented as of this encounter
--- OUTSIDE RECORDS SUMMARY | 2022-05-29 11:00 | XMS_ITS | Encounter Summary ---
:1990 Author Organization [place] Address [address] [place] [address] Care Team Providers Name Role Phone Lalita Perez MD Primary Care Provider Reason for Visit Reason Onset Date Comments Refill Request 12/01/2014 ESCITALOPRAM 10MG Encounter Details Date Type Department Care Team Description 12/01/2014 Refill [facility] Eag Lalita Toledo MD Refill Request 1440 [facility] - CHRISTINA (ESCITALOPRAM 10MG) [place] [phone] 4[address] [facility] [phone] [facility] [place] [address] (Wo rk) Social [...] orders:, has appt scheduled for 01/02/15 Hillary Blank RN Telephone Encounter - Domitila Castro - [...] disorder documented in this encounter Care Teams Pharmacy Manager Relationship Specialty Start Date End Date Lalita Perez MD PCP - General Student in [facility] health 10/21/1404/21 care education/training program documented as of this encounter
--- OUTSIDE RECORDS SUMMARY | 2022-05-29 11:00 | XMS_ITS | Encounter Summary ---
:1990 Author Organization [place] Address [address] [place] [address] Care Team Providers Name Role Phone Lalita Perez MD Primary Care Provider Reason for Visit Reason Comments Anxiety Encounter Details Date Type Department Care Team Description 02/20/2015 Office Visit [facility] Aleksander Mercado (H) (Primary Dx); Dev Higgins MD GABRIEL (generalized anxiety disorder); [address] [place] [address] [place] [phone] [facility] [phone] [place] [address] Social History Tobacco Use [...] documented in this encounter Patient Instructions Patient InstructionsGaulAleksander MD - 02/20/2015 11:16 AM CDT Images from the original note were not included. INSTRUCTIONS FOR TODAY: continue lamictal and lexapro seroquel as needed for sleep follow-up visit [address] Mercado Insomnia What is insomnia? Having insomnia means you [...] you feel ready to sleep. Published by [employer]. This content is reviewed periodically and is subject to change as new health information becomes available. The information is intended to inform and educate and is not a replacement for medical evaluation, advice, diagnosis or treatment by a healthcare professional. Developed by [employer], [place], and [facility]. ? 2009 [facility] and/or its affiliates. All Rights Reserved. Copyright [...] 1 ??? desogestrel-ethinyl estradiol (KARIVA) 0.15-0.02/0.01 MG (/) [...] education information is given-insomnia Aleksander Mercado MD [facility] documented in this encounter Plan of [...] Comprehensive metabolic panel (02/20/2015 11:19 AM CDT) [facility] Method Time Signature Sodium 140 133 - 144 [place] mmol/L [facility] Potassium 4.0 3.4 - 5.3 [facility] mmol/L [facility] Chloride 107 94 - 109 [place] mmol/L [facility] Carbon Dioxide 27 20 - 32 [place] mmol/L [facility] Anion Gap 6 3 - 14 [place] mmol/L [facility] Glucose 87 70 - 99 [place] mg/dL [facility] Urea Nitrogen 11 7 - 30 [place] mg/dL [facility] Creatinine 0.72 0.52 - [facility] 1.04 CLINICS mg/dL [facility] GFR Estimate >90 >60 [place] Non GFR Calc mL/min/1. CLINICS [address]2 [facility] GFR Estimate If >90 >60 [place] Black GFR Calc mL/min/1. CLIN ICS 7m2 [facility] Calcium 9.0 8.5 - [facility] 10.1 CLINICS mg/dL [facility] Bilirubin Total 0.2 0.2 - 1.3 [place] mg/dL [facility] Albumin 3.5 3.4 - 5.0 [place] g/dL [facility] Protein Total 7.0 6.8 - 8.8 [place] g/dL [facility] Alkaline 88 40 - 150 [place] Phosphatase U/L [facility] ALT 21 0 - 50 [place] U/L [facility] AST 11 0 - 45 [place] U/L [facility] Specimen Anatomical Collection Method Collection Time Receive d Time (Source) Location / / Volume Laterality Blood specimen 02/20/2015 11:19 5 (specimen) AM CDT 11:20 AM CDT Aleksander Mercado MD LAB - BLOOD ORDERABLES Performing Organization Address City/State/ZIP Code Phon e Number [facility] [address] [place] [address] CBC with platelets differential (02/20/2015 11:19 AM CDT) [facility] gist Method Time Signature WBC 10.3 4.0 - [facility] 11.0 [facility] 10e9/L [facility] RBC Count 4.12 3.8 - 5.2 [place] 10e12/L [facility] Hemoglobin 12.8 11.7 - [facility] 15.7 g/dL [facility] Hematocrit 38.3 35.0 - [facility] 47.0 % CLINICS DEV MCV 93 78 - 100 [place] fl CLINICS DEV MCH 31.1 26.5 - [facility] 33.0 pg CLINICS DEV MCHC 33.4 31.5 - [facility] 36.5 g/dL [facility] RDW 12.1 10.0 - [facility] 15.0 % [facility] Platelet Count 409 150 - 450 [place] 10e9/L [facility] Diff Method Automated [place] Method [facility] % Neutrophils 54.8 % [facility] DEV % Lymphocytes 37.4 % [facility] DEV % Monocytes 5.7 % [facility] DEV % Eosinophils 1.9 % [facility] DEV % Basophils 0.2 % [facility] DEV Absolute 5.6 1.6 - 8.3 [place] Neutrophil 10e9/L CLINICS DEV Absolute 3.8 0.8 - 5.3 [place] Lymphocytes 10e9/L [facility] Absolute 0.6 0.0 - 1.3 [place] Monocytes 10e9/L [facility] Absolute 0.2 0.0 - 0.7 [place] Eosinophils 10e9/L [facility] Absolute 0.0 0.0 - 0.2 [place] Basophils 10e9/L [facility] Specimen Anatomical Collection Method Collection Time Receive d Time (Source) Location / / Volume Laterality Blood specimen 02/20/2015 11:19 02/20/ 5 (specimen) AM CDT 11:20 AM CDT Aleksander Mercado MD LAB - BLOOD ORDERABLES Performing Organization Address City/State/ZIP Code Phon e Number [facility] DEV [address] [place] [address] documented in this encounter Visit Diagnoses Diagnosis Bipolar I disorder (H) - Primary Bipolar I disorder, most recent episode (or current) unspecified GABRIEL (generalized anxiety disorder) Generalized anxiety disorder Insomnia Insomnia, unspecified documented in this encounter Care Teams Time Study Analyst Relationship Specialty Start Date End Date Lalita Perez MD PCP - General Student in [facility] health 10/21/1404/21 care education/training program documented as of this encounter
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
--- OUTSIDE RECORDS SUMMARY | 2022-05-29 11:00 | XMS_ITS | Encounter Summary ---
:1990 Author Organization [place] Address [address] [place] [address]. [place] [address] Care Team Providers Name Role Phone Lalita Perez MD Primary Care Provider Reason for Referral Mental Health Outpatient - Closed Specialty Diagnoses / Procedures Referred By Contact Refer red To Contact Diagnoses GABRIEL (generalized anxiety disorder) Lalita Perez MD [facility] - [address] [phone] [place] [id number] Referral ID Status Reason Start Date Expiration Date Visits Requ ested Visits Authorized [id number] Closed 10/17/2014 04/15/2015 1 1 Reason for Visit Reason Comments Anxiety Encounter Details Date Type Department Care Team Description 10/17/2014 Office Visit [facility]3] Lalita Perez MD GABRIEL (generalized Dev [facility] anxiety disorder) [address] (Primary Dx) [place] [phone] FERNA[facility]O RICE [phone] [place] [address] Social History Tobacco Use [...] Lindsey, attending Lalita Perez MD Med/Peds PGY-2 [facility] DEV STAFF NOTE: Patient seen with resident [...] Name Type Priority Associated Diagnoses Order [facility] MENTAL HEALTH REFERRAL Referral Routine GABRIEL (generalized a nxiety Ordered: 10/17/2014 disorder) documented as of this encounter Visit Diagnoses Diagnosis GABRIEL (generalized anxiety disorder) - Kimberli bear Generalized anxiety disorder documented in this encounter Care Teams Talcer Relationship Specialty Start Date End Date Lalita Perez MD PCP - General Student in [facility] 10/21/1404/21 care education/training program documented as of this encounter
--- OUTSIDE RECORDS SUMMARY | 2022-05-29 11:00 | XMS_ITS | Encounter Summary ---
:1990 Author Organization [place] Address [address] [place] [address] Care Team Providers Name Role Phone Lalita Perez MD Primary Care Provider Reason for Visit Reason Comments Anxiety Recheck Medication Encounter Details Date Type Department Care Team Description 11/28/2014 Office Visit [facility] Lalita Perez MD Phobia, flying (Primary Dx); [facility] [place] GABRIEL (generalized anxiety disorder) [address] [employer] [address] [place] [address] [place]én[place] [address] [facility] [phone] [place] [address] Social History Tobacco Use Types Packs/Day [...] anxiety. F/u in 4 weeks for recheck. Laliat Perez MD Med/Peds PGY-2 [facility] CHRISTINA STAFF NOTE: Patient seen with [...] disorder documented in this encounter Care Teams Order Analyst Relationship Specialty Start Date End Date Lalita Perez MD PCP - General Student in [facility] health 10/21/1404/21 care education/training program documented as of this encounter
--- OUTSIDE RECORDS SUMMARY | 2022-05-29 11:00 | XMS_ITS | Encounter Summary ---
:1990 Author Organization [place] Address [address] [place] [address] Care Team Providers Name Role Phone Lalita Perez MD Primary Care Provider Reason for Referral Mental Health Outpatient - Closed Specialty Diagnoses / Procedures Referred By Contact Refer red To Contact Diagnoses Bipolar I disorder (H) Aleksander Mercado MD [facility] [address] [place] [address] [place] [phone] Referral ID Status Reason Start Date Expiration Date Visits Requ ested Visits Authorized [id number] Closed 2015 07/15/2015 1 1 Reason for Visit Reason Comments Anxiety Encounter Details Date Type Department Care Team Description 2015 Office Visit [facility] Aleksander Mercado Bipolar I d isorder (H) (Primary Dx); Dev Higgins MD GABRIEL (generalized anxiety disorder); [address] [facility] [address] [place] [address] Contraceptive management [place] Mén[place] [phone] [facility] [phone] K[place] MÉNDEZ [address] Social History Tobacco Use [...] Last PHQ-9 score on record= PHQ-9 SCORE ([facility]) 2015 Total Score 25 ?? Amount of [...] for annual and pap Aleksander Mercado MD [facility] documented in this encounter Plan of Treatment Scheduled Referrals Name Type Priority Associated Diagnoses Order S [facility] MENTAL HEALTH REFERRAL Referral Routine Bipolar I disorder (H) Ordered: 2015 documented as of this encounter Visit Diagnoses Diagnosis Bipolar I disorder (H) - Primary Bipolar I disorder, most recent episode (or current) unspecified GABRIEL (generalized anxiety disorder) Generalized anxiety disorder Contraceptive management Unspecified contraceptive management documented in this encounter Care Teams Welt Treater Relationship Specialty Start Date End Date Lalita Perez MD PCP - General Student in [facility] health 10/21/1404/21 care education/training program documented as of this encounter
== END 2022-05-29 10:52 | disposition home or self-care (01) ==
LOC: US 10:52
PROVIDERS: Visit Provider Obstetrics & Gynecology
DX: Z34.93 Encounter for supervision of normal pregnancy, unspecified, third trimester (principal); Z3A.35 35 weeks gestation of pregnancy
CPT/HCPCS: 76816; 76819; 87081; 87653

== ENCOUNTER 2022-06-04 09:56 | Outpatient (CLI) | payer OTHER, SELFPAY ==
--- OUTSIDE RECORDS SUMMARY | 2022-06-04 09:58 | XMS_ITS | Clinical Summary ---
:1990 Author Organization [employer] [facility] [place] [address] Care Team Providers Name Role Phone Evelyn Arnett NP Primary Care Provider [phone] Allergies Active Allergy Reactions Severity Noted [...] Name Administration Dates Next Due COVID-19 vaccine ([place] 07/26/2021, 12/08/2020, 30mcg/0.3mL) PF, MDV Td (Age [...] luis e DO Complications: None Delivery Location: [facility]) Current Last Filed Vital Signs Vital Sign Reading Time Taken Comments Blood Pressure 120/76 01/02/2022 1:19 PM CDT Pulse 72 01/02/2022 1:19 PM CDT Temperature 37 ??C (98.6 ??F) 09/16/2021 3:22 PM AUTO FORMER MACHINE OPERATOR Respiratory Rate 15 01/02/2022 1:19 PM CDT Oxygen Saturation 97% 09/16/2021 3:22 PM AUTO FORMER MACHINE OPERATOR Inhaled Oxygen Concentration - - Weight 103.4 [...] 12/25/2024 12/25/2021, 12/25/2021, 11/07/2020 [facility] Additional history exists Tetanus booster 07/09/2030 07/09/2020, 04/10/2016, 10/08/2008, Additional history exists Tdap Completed 07/09/2020, 04/10/2016 Results Not on filefrom Last 3 Months Additional Health Concerns Infection Onset Date Last Indicated Rule-Out C.diff 12/12/2020 12/12/2020 Insurance Payer Benefit Plan / Subscriber ID Effective Dates Phone Addre ss Type Group [facility] [id number] 2020-S[place] [id number] [place] [address] Advance Directives Latest Code Status on File Code Status Date Activated Date Inactivated Comments Full Code 12/26/2011 7:11 AM 12/26/2011 2:47 PM Care Teams Chief Medical Officer Relationship Specialty Start Date End Date Evelyn Arnett, SERVICES COORDINATOR PCP - General Nurse Practitioner 12/27/20 [address] [place] [address]
--- OUTSIDE RECORDS SUMMARY | 2022-06-04 09:58 | XMS_ITS | Encounter Summary ---
:1990 Author Organization [place] Address [facility] [place] [address] Care Team Providers Name Role Phone Blank Lemos MD Primary Care Provider Blank Lemos MD Unavailable Anabell Shannon Unavailable Unavailable Sharita Frias MD Unavailable Reason for Referral Diagnostic Imaging Ultrasound (Routine) - Pending Review Specialty Diagnoses / Procedures Referred By Contact Refer red To Contact Diagnoses abnormality affecting management of mother, antepartum, single or unspecified fetus Aimee Aguilar MD Procedures [facility] US Comprehensive Single F/U [address] [place] [address] Referral ID Status Reason Start Date Expiration Date Visits V isits Requested Authorized [id number] Pending 02/05/2022 02/05/2023 1 1 Review Reason for Visit Diagnostic Imaging Ultrasound (Routine) - Pending Review Specialty Diagnoses / Procedures Referred By Contact Refer red To Contact Diagnoses abnormality affecting management of mother, antepartum, single or unspecified fetus Aimee Aguilar MD Procedures [facility] Comprehensive Single F/U [address] [place], [place] [address] Referral ID Status Reason Start Date Expiration Date Visits V isits Requested Authorized [id number] Pending 02/05/2022 02/05/2023 1 1 Review Encounter Details Date Type Department Care Team Description 03/05[facility]2022 [facility] Aimee Fet al abnormality Maternal MD Sean affecting management [facility] [address] of mother, [place] [address] antepartum, single [address] [place], [place] or un specified fetus [address] [address] [place], [place] [phone] [address] (Work) [phone] Social History Tobacco Use Types Packs/Day Years [...] Procedure Name Priority Date/Time Associated Comments Diagnosis [facility] COMPREHENSIVE Routine 03/05/2022 9:49 AM abnormal ity Results for this SINGLE F/U CDT affecting procedure are i n management of the results mother, antepartum, section. single or unspecified fetus documented in this encounter Results [facility] Comprehensive Single F/U (03/05/2022 9:49 [...] ABREU Study Date: 03/05/2022 9:05am Pat. NO: [id number] Referring ??MD: COCO ORTIZ Site: [facility] Group Underwriter: Hood Mcwilliams RDMS : 1990 Age: 32 [...] 1 lb 5 ?oz EFW by ?Hadlock ([id number]) Head / Face / Neck Biometry: Labeling Specialist ? 4.9 ? mm CM ?4.8 [...] documented previously: Heart / Thorax ?RVOT view. 6-vwppjt-taogqrp view. ? Diaphragm. Spine ?Sacral spine. Gender: [...] are anticipat ed to be done in [place]. We recommend serial growth every 4-6 weeks [...] Pat. Name:Noemi ABREU Date: 9:05am Pat. NO: [id number] MD:CARMENCITA ORTIZ [facility] Fleming :1990Age:32 INDICATION BMI 40 METHOD Transabdominal [...] 1 lb 5 oz EFW by Hadlock ([id number]) Head / Face / Neck Biometry: Labeling Specialist 4.9 mm CM 4.8 mm Nasal [...] documented previously: Heart / Thorax RVOT view. 6-doaxtu-daxre ea view. Diaphragm. Spine Sacral spine. Gender: [...] are anticipat ed to be done in [place]. We recommend serial growth every 4-6 weeks [...] volume appeared no rmal. Aimee Aguilar MD [facility] US ORDERABLES documented in this encounter Visit Diagnoses Diagnosis abnormality affecting management o f mother, antepartum, single or unspecified fetus documented in this encounter Additional Health Concerns Assessment Noted Time PHQ-9 Depression Total Score: 2 11/06/2020 3:02 PM CDT documented as of this encounter Care Teams Criminalist Technician Relationship Specialty Start Date End Date Blank Lemos, PCP - General Internal Medicine 04/22/18 [facility] KISHAN [place] [phone] Blank Lemos, Assigned PCP 04/25/18 [facility] K[place]AN [place] [phone] Anabell Shannon Personal Advocate & 10/25/20 Liaison (PAL) Sharita Frias, Assigned OBGYN Provider 01/25/22 [address] [address] [place], [place] [id number] documented as of this encounter
--- OUTSIDE RECORDS SUMMARY | 2022-06-04 09:58 | XMS_ITS | Encounter Summary ---
:1990 Author Organization [place] Address [address] [place] [address] Care Team Providers Name Role Phone Blank [...] documented as of this encounter Care Teams Heavy Duty Diesel Mechanic Relationship Specialty Start Date End Date Blank Lemos, PCP - General Internal Medicine 04/22/[address] [place] [address] KISHAN RENO [phone] Blank Lemos, Assigned PCP 04/25/[address] [place] [address] KISHAN RENO [phone] Anabell Shannon Personal Advocate & 10/25/20 Liaison (PAL) Sharita Frias, Assigned OBGYN Provider 01/25/22 [address] [address] [place] [id number] documented as of this encounter
--- OUTSIDE RECORDS SUMMARY | 2022-06-04 09:58 | XMS_ITS | Encounter Summary ---
:1990 Author Organization [place] Address [facility] [place] [address] Care Team Providers Name Role Phone Blank Lemos MD Primary Care Provider Blank Lemos MD Unavailable Anabell Shannon Unavailable Unavailable Sharita Frias MD Unavailable Reason for Visit Reason Comments Ultrasound RL2-subopt anatomy Encounter Details Date Type Department Care Team Description 03/05/2022 Office Visit [facility] Aimee Aguilar abn ormality Maternal MD Sean [facility] [address] of mother, antepartum, [facility] [address] single or unspecified [address] [place], [place] fetus (Primary Dx) [address] [address] [place], [place] [phone] [address] (Work) [phone] Social History Tobacco Use Types Packs/Day Years [...] documented as of this encounter Care Teams Engraver Ornamental Design Relationship Specialty Start Date End Date Blank Lemos, PCP - General Internal Medicine 04/22/18 [facility] [place] [address] Blank Lemos, Assigned PCP 04/25/18 [facility] [place] [address] Anabell Shannon Personal Advocate & 10/25/20 Liaison (PAL) Sharita Frias, Assigned OBGYN Provider 01/25/22 [address] [place] [address] documented as of this encounter
--- OUTSIDE RECORDS SUMMARY | 2022-06-04 09:58 | XMS_ITS | Encounter Summary ---
:1990 Author Organization [facility] Address [address] [place] [address] Care Team Providers Name Role Phone Blank [...] documented as of this encounter Care Teams Geometry Tutor Relationship Specialty Start Date End Date Blank Lemos, PCP - General Internal Medicine 04/22/[address] [place] [address] KISHAN RENO [phone] Blank Lemos, Assigned PCP 04/25/[address] [place] [address] KISHAN RENO [phone] Anabell Shannon Personal Advocate & 10/25/20 Liaison (PAL) Sharita Frias, Assigned OBGYN Provider 01/25/22 [address] [address] [place] [id number] documented as of this encounter
--- OUTSIDE RECORDS SUMMARY | 2022-06-04 09:58 | XMS_ITS | Clinical Summary ---
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 Plan colp 10/07/18 [place]- No lesions seen, no Bx raisa en. [...] read by pt 01/08/21 Reminder MyChart 02/05/21 [place] not done. Tracking updated for 6 mo [...] PM CDT Pulse 76 09/30/2020 9:40 AM RUBBER PRODUCTION MACHINE OPERATOR Temperature 36.8 ??C (98.3 ??F) 10/18/2020 2:16 PM RUBBER PRODUCTION MACHINE OPERATOR Respiratory Rate 18 09/30/2020 9:40 AM RUBBER PRODUCTION MACHINE OPERATOR Oxygen Saturation 98% 09/29/2020 9:00 AM RUBBER PRODUCTION MACHINE OPERATOR Inhaled Oxygen Concentration - - Weight 104.8 [...] Procedure Name Priority Date/Time Associated Comments Diagnosis [facility] US COMPREHENSIVE Routine 03/05/2022 9:49 AM abnormal ity Results for this SINGLE F/U CDT affecting procedure are i n management of the results mother, antepartum, section. single or unspecified fetus from Last 3 Months Results [facility] US Comprehensive Single F/U (03/05/2022 9:49 [...] ABREU Study Date: 03/05/2022 9:05am Pat. NO: [id number] Referring ??MD: COCO ORTIZ Site: [facility] Audio/Visual Manager: Hood Mcwilliams RDMS : 1990 Age: 32 [...] 1 lb 5 ?oz EFW by ?Hadlock ([id number]-FL) Head / Face / Neck Biometry: Bias Cutter Helper ? 4.9 ? mm CM ?4.8 ? [...] documented previously: Heart / Thorax ?RVOT view. 4-dtdazb-zschbwp view. ? Diaphragm. Spine ?Sacral spine. Gender: [...] are anticipat ed to be done in [place]. We recommend serial growth every 4-6 weeks and weekly BPPs should be considered at 34 weeks for pre- BMI 40 Return to primary provider for continued care. If you have questions regarding today's evaluation or if we can be of further service, please contact the [facility]. Procedure Note Aimee Agiular MD - 03/05/2022Form atting of this note might be different from the original. Comp Follow Up Pat. Name:Noemi ABREU Date: 9:05am Pat. NO: [id number] MD:CARMENCITA ORTIZ [facility] Fleming :1990Age:32 INDICATION BMI 40 METHOD [...] 1 lb 5 oz EFW by Hadlock ([id number]-FL) Head / Face / Neck Biometry: Bias Cutter Helper 4.9 mm CM 4.8 mm Nasal bone [...] documented previously: Heart / Thorax RVOT view. 4-alprhq-azevd ea view. Diaphragm. Spine Sacral spine. Gender: [...] are anticipat ed to be done in [place]. We recommend serial growth every 4-6 weeks [...] volume appeared no rmal. Aimee Aguilar MD [facility] US ORDERABLES from Last 3 Months Insurance Payer Benefit Plan / Subscriber ID Effective Phone Address T ype Group Dates WORK COMP ELYSSA WINSTON [id number] 2015-Pre [phone] sent [phone] [place] [address] [facility] [id number] 2021-Pres [phone] [address] [employer] ent [phone] [place] [address] Rena Abreu Worker's Self 1990 [phone] T[address] M Compensation 4 (Home) [address] [place] [address] Rena Abreu Behavioral Self 1990 [phone] [address]EL M [address] (Home) [place] [address] Advance Directives For more information, please contact: [phone] Latest Code Status on File Code Status [...] patient/ legal de cision maker Care Teams Motorsports Technician Relationship Specialty Start Date End Date Blank Lemos, PCP - General Internal Medicine 04/22/18 MD [facility] KISHAN RENO [phone] Blank Lemos, Assigned PCP 04/25/18 MD [facility] KISHAN RENO [phone] Anabell Shannon Personal Advocate & 10/25/20 Liaison (PAL) Sharita Frias, Assigned OBGYN Provider 01/25/22 [address] [place] [address]
--- OUTSIDE RECORDS SUMMARY | 2022-06-04 09:59 | XMS_ITS | Encounter Summary ---
:1990 Author Organization [place] Address [address] [place] [address] Care Team Providers Name Role Phone Blank Lemos MD Primary Care Provider Blank Lemos MD Unavailable Kathleen Lacy CNM Unavailable Reason for Visit Reason Comments Laboring Auth/Cert Specialty Diagnoses / Procedures Referred By Contact Refer red To Contact ladler Diagnoses Indication for care in labor or delivery Indication for care in labor or delivery Rh Procedures L AND D [address] [place], [place] [address] Phone: Fax: Referral ID Status Reason Start Date Expiration Date Visits Requ ested Visits Authorized [id number] 1 1 Encounter Details Date Type Department Care Team Description 09/28/2020 - [facility] Stevan Jones, CNM [address] [place] [address] Indication for care in labor or delivery (Primary Dx); 09/30/2020 Encounter [facility] [place] [place] [address] [place], [place] [id number] Postoperative state [address] [place] [address] Social History Tobacco Use Types [...] with No / Unsure 09/28/2020 8:47 AM JAVA WEB USER INTERFACE DEVELOPER someone who was confirmed or suspected to have Coronavirus / COVID-19? documented as of this encounter Last Filed Vital Signs Vital Sign Reading Time Taken Comments Blood Pressure 118/72 09/30/2020 9:40 AM JAVA WEB USER INTERFACE DEVELOPER Pulse 76 09/30/2020 9:40 AM JAVA WEB USER INTERFACE DEVELOPER Temperature 36.8 ??C (98.2 ??F) 09/30/2020 9:40 AM JAVA WEB USER INTERFACE DEVELOPER Respiratory Rate 18 09/30/2020 9:40 AM JAVA WEB USER INTERFACE DEVELOPER Oxygen Saturation 98% 09/29/2020 9:00 AM JAVA WEB USER INTERFACE DEVELOPER Inhaled Oxygen Concentration - - Weight 112.9 kg (249 lb) 09/28/2020 8:52 AM JAVA WEB USER INTERFACE DEVELOPER Height 160 cm (5' 3) 09/28/2020 8:52 AM JAVA WEB USER INTERFACE DEVELOPER Body Mass Index 44.11 09/28/2020 8:52 AM JAVA WEB USER INTERFACE DEVELOPER documented in this encounter Discharge Summaries Danial Falcon MD - 09/30/2020 9:24 AM CST [facility] Obstetrics Post-Op / Discharge Summary Note Assessment and Plan: Assessment: Post-operative day #2 Low transverse primary section L&D complications: A 30 year oldypp-fszw-ibe at 40w1d weeks estimated gestational age admitted [...] phosphate (FLEET ENEMA) 1 enema ??? Tdap (njmqndk-garzujwufd-dzpzk pertussis) (ADACEL) injection 0.5 mL ??? tranexamic [...] studies have been ordered Danial Falcon MD WEB USER INTERFACE DEVELOPER documented in this encounter Discharge Instructions Discharge InstructionsLakeshia Mullen RN - 09/30/2020 1:40 PM CST Postop Instructions Make an appointment to be seen in the clinic in 6 weeks. [facility]: [phone] Activity ?? Do not lift more than [...] questions or concerns after you return home. WEB USER INTERFACE DEVELOPER documented in this encounter Medications at Time [...] Falcon MD - 09/30/2020 9:21 AM CST [facility] Obstetrics Post-Op / Progress Note Assessment and Plan: Assessment: Post-operative day #2 Low transverse primary section L&D complications: A 30 year oldjxn-tkyj-dhv at 40w1d weeks estimated gestational age admitted [...] phosphate (FLEET ENEMA) 1 enema ??? Tdap (pmgnsln-ybqcwautap-tfcjn pertussis) (ADACEL) injection 0.5 mL ??? tranexamic [...] studies have been ordered Danial Falcon MD WEB USER INTERFACE DEVELOPER Dina Germain MD - 09/29/2020 11:45 AM [...] prn HReno Jones CNM 09/28/2020 4:36 PM WEB USER INTERFACE DEVELOPER Soledad Jones CNM - 09/28/2020 12:51 PM [...] H. Octavia Jones CNM 09/28/2020 2:12 PM WEB USER INTERFACE DEVELOPER Soledad Jones CNM - 09/28/2020 10:48 AM [...] to Reassess short interval Soledad Jones CNM WEB USER INTERFACE DEVELOPER documented in this encounter H&P Notes Wendy Gregg DO - 09/28/2020 7:18 PM CST [facility] Labor and Delivery Consultation note Rena [...] orders Prepare for section. Wendy Gregg DO WEB USER INTERFACE DEVELOPER Soledad Jones CNM - 09/28/2020 9:09 AM CST [facility] Labor Admission History & Physical Rena Resendiz is a 30 year old with an IUP at 40w1d ; , Partner/support Person: Micah Language Barrier: Brazilian Clinic: [facility] Provider: Robert Rena Resendiz is [facility] on 09/28/2020 at 9:09 AM History of [...] found, no interventions. Pt thinks this happened [id number] ??? TONSILLECTOMY Family History Problem Relation Age [...] orders Britney Jones CNM 09/28/2020 9:23 AM WEB USER INTERFACE DEVELOPER documented in this encounter Miscellaneous Notes Plan of Care - Lakeshia Mullen RN - 09/30/2020 2:41 PM CST Discharge instructions reviewed with patient and . Understanding verbalized. Will discharge to home with and baby. WEB USER INTERFACE DEVELOPER Plan of Care - Lakeshia Mullen RN [...] Support persons present. Plan: Anticipate discharge today. WEB USER INTERFACE DEVELOPER Plan of Care - Karol Hayden RN - 09/30/2020 2:52 AM CST Pt meeting expected goals for shift. Positive attachment behaviors noted with . Pain managed with scheduled meds - See MAR. Support person Micah at bedside and attentive to pt needs. pt encouraged to complete discharge paperwork/videos. Will continue to monitor and adjust plan as needed. WEB USER INTERFACE DEVELOPER Note - Elisabeth Shi RN - 09/29/2020 [...] questions answered. Encouraged to call for assistance. WEB USER INTERFACE DEVELOPER Plan of Care - Kathleen Wright RN - 09/29/2020 7:59 PM CST Pt up ambulating independently. Voiding without difficulty. Incision covered . Reports adequate paincontrol with current pain plan. Family present and supportive. Meeting expected goals. Mother attentive to infants needs. infant, using nipple shield. WEB USER INTERFACE DEVELOPER Plan of Care - Maria Del Rosario [...] supportive today. Maria Del Rosario Steven RN WEB USER INTERFACE DEVELOPER Plan of Care - Kathleen Hurley RN [...] gluten free diet. FOB here and supportive. WEB USER INTERFACE DEVELOPER L&D Delivery Note - Wendy Gregg DO [...] Procedure Details: See operative note Yue Female-Rena [[id number]] Labor Event Times Labor onset date: 09/28/20 [...] Normal 1:1 continuous labor support provided by?: aircraft maintenance technician/Placenta Date and Time Delivery Date: 09/28/20 Delivery Time: 8:09 PM Placenta Date/Time: 09/28/2020 8:10 PM Vaginal Counts [place] Suture [place] Sponges Instruments Initial counts Added to count [...] 3 Vessels Complications: Nuchal Gases Sent?: Yes [place] Resuscitation Methods: None [place] Measurements Weight: 7 lb 15 oz Length: [...] present?: Neg Delivery (Maternal) (Provider to Complete) ([id number]) Episiotomy: None Perineal lacerations: None Blood Loss Mother: Rena Resendiz #[id number] Start of Mother's Information IO Blood Loss 09/28/20 0530 - 09/29/20 0634 None End of Mother's Information Mother: Rena Resendiz #[id number] Delivery - Provider to Complete ([id number]) Delivering clinician: Wendy Gregg DO CNM Care: [...] Position: Left Occiput Anterior Wendy Gregg DO WEB USER INTERFACE DEVELOPER Plan of Care - Maricruz Rogers RN - 09/28/2020 11:48 PM CST Data: Rena [facility]endiz [facility] via on air director at 1135. Baby transferred via parent's arms. Action: Receiving unit notified of transfer: Yes. Patient and family notified of room change. Reportgiven to Kathleen TOLLIVER at 2330. Belongings sent to receiving unit. Accompanied by Registered Nurse. Oriented patient to surroundings. Call light within reach. ID bands double-checked with receiving RN. Response: Patient tolerated transfer and is stable. WEB USER INTERFACE DEVELOPER Op Note - Wendy Gregg DO - 09/28/2020 8:53 PM CST PREOPERATIVE DIAGNOSIS: A 30 year oldgxj-xuyj-slb at 40w1d weeks estimated gestational age admitted for labor with arrest of dilation, obesity. POSTOPERATIVE DIAGNOSES: A 30 year oldhil-dewa-mbh at 40w1d weeks estimated gestational age admitted for labor with arrest of dilation, obesity. PROCEDURE: 1. Primary low transverse section. 2. Seprafilm placement for adhesiolysis. COMPLICATIONS: None apparent at time of procedure. ESTIMATED BLOOD LOSS: 400 mL. SURGEON: Wendy Gregg DO. INDICATIONS: A 30 year oldocz-mnnv-cpb at 40w1d weeks estimated gestational age admitted [...] counts were correct x2. WENDY GREGG DO WEB USER INTERFACE DEVELOPER Plan of Care - Maria Del Rosario Steven RN - 09/28/2020 9:19 AM CST 0735: , 40w1d, here for rule out labor. Pt states she has been nelson every 2-2.5 min [id number] this morning. EUM and EFM placed. Admission [...] to progress. Maria Del Rosario Steven, RN WEB USER INTERFACE DEVELOPER documented in this encounter Plan of Treatment Scheduled Orders Name Type Priority Associated Diagnoses Order S chedule See Providers Orders Lab Routine Release Upon Ordering for 1 Occurrences sta rting 09/28/2020 documented as of this encounter Procedures Procedure Name Priority Date/Time Associated Comments Diagnosis HEMOGLOBIN Routine 09/29/2020 7:02 AM Indication for care Re sults for this JAVA WEB USER INTERFACE DEVELOPER in labor or procedure are i n delivery the results section. PLACENTA PATH ORDER Routine 09/28/2020 8:13 PM Re sults for this AND INDICATIONS JAVA WEB USER INTERFACE DEVELOPER procedure ar e in the results section. SECTION 09/28/2020 7:48 PM Failure to progres s JAVA WEB USER INTERFACE DEVELOPER in labor TREPONEMA ABS W STAT 09/28/2020 9:23 AM Result s for this REFLEX TO RPR AND JAVA WEB USER INTERFACE DEVELOPER procedure are in TITER the results section. ABO/RH TYPE AND STAT 09/28/2020 9:23 AM Result s for this SCREEN JAVA WEB USER INTERFACE DEVELOPER procedure are i n the results section. SARS-COV-2 (COVID-19) STAT 09/28/2020 8:40 AM Results for this VIRUS RT-PCR JAVA WEB USER INTERFACE DEVELOPER procedure are i n the results section. documented in this encounter Results (ABNORMAL) Hemoglobin (09/29/2020 7:02 AM JAVA WEB USER INTERFACE DEVELOPER) athologist Signature Hemoglobin 10.7 (L) 11.7 - 15.7 09/29/2020 [place] g/dL 7:42 AM [facility] Specimen Anatomical Collection Method Collection Time Receive d Time (Source) Location / / Volume Laterality Blood specimen 09/29/2020 7:02 AM 021 7:03 (specimen) JAVA WEB USER INTERFACE DEVELOPER AM JAVA WEB USER INTERFACE DEVELOPER Wendy Gregg DO LAB - BLOOD ORDERABLES Performing Organization Address City/State/ZIP Code Phon e Number [place] [address] [phone] [place] [address] [phone] Placenta Path Order and Indications (PLACENTA) (09/28/2020 8:13 PM JAVA WEB USER INTERFACE DEVELOPER) Component Value Ref Test Analysis Performed At [facility] Range Method Time Signature Copath Patient Name: RENA RESENDIZ Report MR#: [id number] Specimen #: [id number] Collected: 09/28/2020 Received: 10/01/2020 Reported: 10/02/2020 12:04 [...] of this testing was completed at the [facility], with the professional compo nent performed at the [facility], [address] [place] [address] ??[phone] ([phone]) CPT Codes: A: 99690-VR5 COLLECTION SITE: Client: [facility] Location: RHOR (R) Specimen Anatomical Collection Method Collection Time Receive d Time (Source) Location / / Volume Laterality Specimen from 09/28/2020 8:13 PM 10/01/19 21 8:32 placenta JAVA WEB USER INTERFACE DEVELOPER AM JAVA WEB USER INTERFACE DEVELOPER (specimen) Soledad XIAO Performing Organization Address City/State/ZIP Code Phon e Number [place] Treponema Abs w Reflex to RPR and Titer (09/28/2020 9:23 AM JAVA WEB USER INTERFACE DEVELOPER) [facility] Method Time Signature Treponema Nonreactive NR^Nonrea 09/28/2020 [facility] ctive 5:03 PM JAVA WEB USER INTERFACE DEVELOPER [facility] Comment: Methodology Change: Test performed on DiaSorin Liaison XL by Treponema pallidum Total Antibodies Assay as of . Specimen Anatomical Collection Method Collection Time Receive d Time (Source) Location / / Volume Laterality Blood specimen 09/28/2020 9:23 AM 021 9:24 (specimen) JAVA WEB USER INTERFACE DEVELOPER AM JAVA WEB USER INTERFACE DEVELOPER Soledad Jones CNM LAB - BLOOD ORDERABLES Performing Organization Address City/State/ZIP Code Phon e Number [address] [address] [facility] ABO/Rh type and screen (09/28/2020 9:23 AM JAVA WEB USER INTERFACE DEVELOPER) [facility] Method Time Signature ABO O 09/28/2020 [facility] 10:18 AM [facility] RH(D) Pos [facility] Antibody Neg 09/28/2020 [facility] Screen 10:18 AM [facility] Test Valid [place] 09/28/2020 [facility] Only At [facility] 9:43 AM [facility] Specimen 10/01/2020 09/28/2020 [facility] Expires 9:43 AM [facility] Specimen Anatomical Collection Method Collection Time Receive d Time (Source) Location / / Volume Laterality Blood specimen 09/28/2020 9:23 AM 021 9:24 (specimen) JAVA WEB USER INTERFACE DEVELOPER AM JAVA WEB USER INTERFACE DEVELOPER Soledad Eugenejodie [facility] LAB - BLOOD BANK TEST ORDER Performing Organization Address City/State/ZIP Code Phon e Number M [facility] [address] [place], [place] [address] [phone] [facility] [address] [phone] Asymptomatic SARS-CoV-2 COVID-19 Virus (Coronavirus) by PCR (09/28/2020 8:40 AM JAVA WEB USER INTERFACE DEVELOPER) [facility] Method Time Signature SARS-CoV-2 Nasopharyngeal 09/28/2020 [place] Virus 8:51 AM [facility] Source SARS-CoV-2 NEGATIVE 09/28/2020 [place] PCR Result 9:13 AM [facility] Comment: SARS-CoV2 (COVID-19) RNA not de tected, presumed negative. SARS-CoV-2 PCR Comment (Note) 09/28/2020 9:13 A M [facility] Comment: Testing was performed using the vera [...] or clinical pr esentation suggests COVID-19. M [facility] are certi fied under the Clinical Laboratory Improvement Amendments of 1988 (CLIA-88) as qualified to perform moderate and/or high complexity laboratory testin g. Specimen (Source) Anatomical Collection Method Collection Time Re ceived Time Location / / Volume Laterality Specimen from 09/28/2020 8:40 09/28/2020 nasopharyngeal AM JAVA WEB USER INTERFACE DEVELOPER 8:51 AM JAVA WEB USER INTERFACE DEVELOPER structure (specimen) Soledad Jones CNM LAB - MICRO GENERAL ORDERABL ES Performing Organization Address City/State/ZIP Code Phon e Number [place] [address] [address] [phone] documented in this encounter Visit Diagnoses Diagnosis [...] acetaminophen (TYLENOL) tablet Given 09/30/2020 12:04 PM JAVA WEB USER INTERFACE DEVELOPER 975 mg 975 mg 975 mg, Oral, EVERY 6 HOURS, First dose on Thu09/28/20 at 2330, Maximum acetaminophen dose from all sources = 75 mg/kg/day not to exceed 4 grams/day., Post-procedure Given 09/30/2020 5:42 AM JAVA WEB USER INTERFACE DEVELOPER 975 mg Given 09/30/2020 12:09 AM JAVA WEB USER INTERFACE DEVELOPER 975 mg azithromycin 500 mg (ZITHROMAX) in 0.9% New Bag 09/28/2020 7:29 PM JAVA WEB USER INTERFACE DEVELOPER 500 mg NaCl 250 mL intermittent infusion 500 mg STAT, 500 mg, Intravenous, PRE-OP/PRE-PROCEDURE, Starting on Thu09/28/20 at 1851, For 1 dose, Give no sooner than 60 minutes prior to incision., Indications: Rupture of Membranes AND/OR Labor prior to , Pre-procedure dextrose 5% in lactated ringers infusion New Bag 09/29/2020 2:00 AM JAVA WEB USER INTERFACE DEVELOPER 125 mL/hr at 125 mL/hr, Intravenous, CONTINUOUS, Subsequent IV at nurse's discretion. DC IV when tolerating fluids or at nurse's discretion & saline lock., Post-procedure, Starting on Thu09/28/20 at 2330, Until Thu09/30/20 at 1703 escitalopram (LEXAPRO) tablet 20 mg Given 09/29/2020 10:37 PM JAVA WEB USER INTERFACE DEVELOPER 20 mg 20 mg, Oral, DAILY, First dose on Thu09/29/20 at 0900 fentaNYL (PF) (SUBLIMAZE) injection 50-100 Given 09/28/2020 9:04 AM JAVA WEB USER INTERFACE DEVELOPER 100 mcg mcg 50-100 mcg, Intravenous, EVERY [...] 2 mcg/mL, New Syringe/Cartridge 09/28/2020 6:02 PM JAVA WEB USER INTERFACE DEVELOPER bupivacaine (MARCAINE) 0.125% in NS premix for [...] set., Routine New Syringe/Cartridge 09/28/2020 10:08 AM JAVA WEB USER INTERFACE DEVELOPER ibuprofen (ADVIL/MOTRIN) tablet 800 mg Given 09/30/2020 10:24 AM JAVA WEB USER INTERFACE DEVELOPER 800 mg 800 mg, Oral, EVERY 6 HOURS, First dose on 09/29/20 at 2100, Give with food., Post-procedure Given 09/30/2020 4:33 AM JAVA WEB USER INTERFACE DEVELOPER 800 mg Given 09/29/2020 10:36 PM JAVA WEB USER INTERFACE DEVELOPER 800 mg ketorolac (TORADOL) injection 30 mg Given 09/29/2020 4:01 PM JAVA WEB USER INTERFACE DEVELOPER 30 mg 30 mg, Intravenous, EVERY 6 [...] minutes. , Post-procedure Given 09/29/2020 9:41 AM JAVA WEB USER INTERFACE DEVELOPER 30 mg Given 09/29/2020 3:48 AM JAVA WEB USER INTERFACE DEVELOPER 30 mg lactated ringers BOLUS 1,000 mL New Bag 09/28/2020 9:06 AM JAVA WEB USER INTERFACE DEVELOPER 1,000 mLs 999 mL/hr Intravenous, 1,000 mL, ONCE PRN, IF patient to have epidural or intrathecal narcotics and NOT pre-eclamptic, Starting on Thu09/28/20 at 0832, For 1 dose, IV bolus must be initiated 15-30 min prior to epidural or intrathecal, then IV fluids per labor orders. Nurse may discontinue this order if duplicate. lactated ringers infusion New Bag 09/28/2020 6:04 PM JAVA WEB USER INTERFACE DEVELOPER 125 mL/hr at 125 mL/hr, Intravenous, CONTINUOUS, Starting on Thu09/28/20 at 0900, Until Thu09/28/20 at 2317 New Bag 09/28/2020 10:09 AM JAVA WEB USER INTERFACE DEVELOPER 125 mL/hr naloxone (NARCAN) injection 0.2 mg [...] injection 4 mg Given 09/28/2020 4:24 PM JAVA WEB USER INTERFACE DEVELOPER 4 mg 4 mg, Intravenous, EVERY 6 HOURS PRN, nausea, vomiting, Administer over 2-5 Minutes, Starting on Thu09/28/20 at 0832, If nausea not resolved in 15 minutes, notify provider before proceeding to prochlorperazine (COMPAZINE) [if ordered]. Irritant. For ordered IV doses 0.1-4 mg, give IV Push undiluted over 2-5 minutes. ondansetron (ZOFRAN) injection 4 mg Given 09/29/2020 12:56 AM JAVA WEB USER INTERFACE DEVELOPER 4 mg 4 mg, Intravenous, EVERY 6 HOURS PRN, nausea, vomiting, Administer over 2-5 Minutes, Starting on Thu09/28/20 at 2316, If nausea not resolved in 15 minutes, notify provider before proceeding to prochlorperazine (COMPAZINE) [if ordered]. Irritant. For ordered IV doses 0.1-4 mg, give IV Push undiluted over 2-5 minutes., Post-procedure oxyCODONE (ROXICODONE) tablet 5 mg Given 09/29/2020 10:36 PM JAVA WEB USER INTERFACE DEVELOPER 5 mg 5 mg, Oral, EVERY 4 HOURS PRN, other, pain control or improvement in physical function. Hold dose for analgesic side effects., Starting on Thu09/28/20 at 2316, Notify provider to assess for uncontrolled pain or analgesic side effects. Hold while on POCKET MACHINE OPERATOR or with regular IV opioid dosing. Maximum total is 60 mg in 24 hours., Post-procedure Given 09/29/2020 1:04 PM JAVA WEB USER INTERFACE DEVELOPER 5 mg oxytocin (PITOCIN) 30 units in New Bag 09/28/2020 9:40 PM JAVA WEB USER INTERFACE DEVELOPER 100 mL/hr 100 mL/hr 500 mL 0.9% [...] mL/hr units in 500 mL 0.9% PM JAVA WEB USER INTERFACE DEVELOPER NaCl infusion 1-24 arslan-units/min (1-24 mL/hr), Intravenous, [...] ripening medication. Rate/Dose Change 09/28/2020 4:29 PM JAVA WEB USER INTERFACE DEVELOPER 5 arslan-units/min 5 mL/hr Rate/Dose Verify 09/28/2020 3:44 PM JAVA WEB USER INTERFACE DEVELOPER 4 arslan-units/min 4 mL/hr senna-docusate (SENOKOT-S/PERICOLACE) Given [...] loose stools., Post-procedure Given 09/29/2020 10:36 PM JAVA WEB USER INTERFACE DEVELOPER 1 tablet Given 09/29/2020 9:50 AM JAVA WEB USER INTERFACE DEVELOPER 1 tablet senna-docusate (SENOKOT-S/PERICOLACE) 8. 6-50 MG per tablet 2 tablet 2 tablet, Oral, 2 TIMES DAILY, First dos e on Thu09/28/20 at 2330, Hold for loose stools. Preferred agent for constipation related to op ioids. Hold for loose stools., Post-procedure simethicone (MYLICON) chewable tablet 80 mg Given 09/30/2020 3:27 AM JAVA WEB USER INTERFACE DEVELOPER 80 mg 80 mg, Oral, 4 TIMES DAILY PRN, other, gas, Starting on Thu09/28/20 at 2316, Chew., Post-procedure sodium chloride (PF) 0.9% PF flush 3 mL Given 09/29/2020 4:01 PM JAVA WEB USER INTERFACE DEVELOPER 3 mLs 3 mL, Intracatheter, EVERY 8 HOURS PRN, other, to lock peripheral IV dormant line, Starting on Thu09/28/20 at 2316, Post-procedure sodium citrate-citric acid (BICITRA) solution Given 7:29 PM JAVA WEB USER INTERFACE DEVELOPER 30 mLs 30 mL 30 mL, Oral, PRE-OP/PRE-PROCEDURE, Starting on Thu09/28/20 at 1850, For 1 dose, For gastric pH neutralization. GIVE WITHIN 45 minutes PRIOR TO SURGICAL PROCEDURE., Pre-procedure documented in this encounter Active and Recently Administered Medications Times are shown in JAVA WEB USER INTERFACE DEVELOPER. Scheduled Medication Order 09/28/2020 09/29/2020 09/30/2020 acetaminophen [...] Maricruz Rogers, UNRULY) STAT, 500 mg, Intravenous, PRE-OP/PRE-IA OCEDURE, Starting 09/28/20 at 1851, For 1 [...] minutes PRIOR TO SURGICAL PROCEDURE., Pre-procedure Tdap (hntzocd-yjnsklefmw-aplvt pertussis) (ADACEL) injection 0.5 mL 1000 (Canceled [...] divided doses [facility]. Do NOT give if patient has [...] For ordered IV doses 0.1-2mg give I PRODUCTION QUALITY MANAGER. Give each 0.4mg over 15 seconds in [...] or analgesic side effects. Hold while on POCKET MACHINE OPERATOR or with regular IV opioid dosing. Maximum [...] documented as of this encounter Care Teams Engineer First Assistant Relationship Specialty Start Date End Date Blank Lemos MD PCP - General Internal Medicine 04/22/[address] [place] [address] KISHAN RENO [phone] Blank Lemos MD Assigned PCP 04/25/[address] [place] [address] KISHAN RENO [phone] Kathleen Lacy CNM Assigned OBGYN Provider 06/01/20 11/23/21 [address] [place], [place] [phone] documented as of this encounter
--- OUTSIDE RECORDS SUMMARY | 2022-06-04 09:59 | XMS_ITS | Encounter Summary ---
:1990 Author Organization [place] Address [address] [place] [address] Care Team Providers Name Role Phone Blank Lemos MD Primary Care Provider Blank Lemos MD Unavailable Kathleen Lacy CNM Unavailable Encounter Details Date Type Department Care Team Description 09/28/2020 Telephone [facility] Kathleen Lacy CNM [facility] [place] [address] [address] [place] [address] [address] [place] [address] [phone] Social History Tobacco Use Types Packs/Day Years [...] with No / Unsure 09/24/2020 2:11 PM MEAT PRESS OPERATOR someone who was confirmed or suspected to have Coronavirus / COVID-19? documented as of this encounter Miscellaneous Notes Telephone Encounter - Kathleen Lacy CNM - 09/28/2020 7:16 AM CST Pt paged ammonia box tender YARELI stating her contractions are still every 2-3 mins apart despite rest/hydration.She is going to LD for assessment. LD notified. Kathleen Lacy APRN, CNM PRESS OPERATOR Telephone Encounter - Kathleen Lacy CNM - 09/28/2020 6:06 AM CST Pt paged ammonia box tender YARELI with reports of ctx about every [...] home for now. Kathleen Lacy APRN, CNM PRESS OPERATOR Telephone Encounter - Kathleen Lacy CNM - 09/28/2020 5:22 AM CST Rena paged ammonia box tender CNM stating that she just lost a large amount of vaginal discharge that was mucus-like in consistency. Denies ctx, bleeding, or lof. Reports good movement. States this happened 20mins ago. Discussed likely she lost her mucus plug. Counseled to put on a new pad and monitor.She will call if she continues to leak. Discussed s/s SROM. Kathleen Lacy APRN, CNM PRESS OPERATOR documented in this encounter Plan of Treatment Not on filedocumented as of this encounter Visit Diagnoses Not on filedocumented in this encounter Additional Health Concerns Assessment Noted Time PHQ-9 Depression Total Score: 5 12/06/2020 7:02 AM CDT documented as of this encounter Care Teams Electric Motor Tester Relationship Specialty Start Date End Date Blank Lemos MD PCP - General Internal Medicine 04/22/[address] [place] [address] KISHAN RENO [id number] Blank Lemos MD Assigned PCP 04/25/[address] [place] [address] KISHAN RENO [id number] Kathleen Lacy CNM Assigned OBGYN Provider 06/01/20 11/23/21 KISHAN Sparks [address] documented as of this encounter
--- OUTSIDE RECORDS SUMMARY | 2022-06-04 09:59 | XMS_ITS | Encounter Summary ---
:1990 Author Organization [place] Address [address] [place] [address] Care Team Providers Name Role Phone Blank Lemos MD Primary Care Provider Blank Lemos MD Unavailable Kathleen Lacy CNM Unavailable Reason for Visit Reason Comments Surgical Followup check incision - has been ir ritated since surgery, but worsening now with odor Encounter Details Date Type Department Care Team Description 10/18/2020 Office Visit [facility] Yonathan Giraldo for postoperative wound check (Primary Dx); [facility] MD Avelino Morbid obesity (H) [place] [address] 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 documented as of this encounter Last Filed Vital Signs Vital Sign Reading Time Taken Comments Blood Pressure 108/72 10/18/2020 2:16 PM DOCUMENT CONTROL CLERK Pulse - - Temperature 36.8 ??C (98.3 ??F) 10/18/2020 2:16 PM DOCUMENT CONTROL CLERK Respiratory Rate - - Oxygen Saturation - - Inhaled Oxygen Concentration - - Weight 105 kg (231 lb 6.4 oz) 10/18/2020 2:16 PM DOCUMENT CONTROL CLERK Height - - Body Mass Index 40.99 09/28/2020 8:52 AM DOCUMENT CONTROL CLERK documented in this encounter Progress Notes Yonathan [...] PP visit or prn Macho Giraldo MD MENT CONTROL CLERK documented in this encounter Nursing Notes Shi [...] completed using cuff size largeReno Rinaldi CMA MENT CONTROL CLERK documented in this encounter Plan of Treatment Not on filedocumented as of this encounter Visit Diagnoses Diagnosis Encounter for postoperative wound check - Primary Other specified aftercare following surg genia Morbid obesity (H) Morbid obesity documented in this encounter Additional Health Concerns Assessment Noted Time PHQ-9 Depression Total Score: 5 12/06/2020 7:02 AM CDT documented as of this encounter Care Teams Barrel Bung Remover And Dumper Relationship Specialty Start Date End Date Blank Lemos MD PCP - General Internal Medicine 04/22/18 [address] [facility] KISHAN RENO [phone] Blank Lemos MD Assigned PCP 04/25/[address] [place] [address] KISHAN RENO [phone] Kathleen Lacy CNM Assigned OBGYN Provider 06/01/20 11/23/21 [address] [place] [place] [address] documented as of this encounter
--- OUTSIDE RECORDS SUMMARY | 2022-06-04 09:59 | XMS_ITS | Encounter Summary ---
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 documented as of this encounter Plan of Treatment Not on filedocumented as of this encounter Visit Diagnoses Not on filedocumented in this encounter Additional Health Concerns Assessment Noted Time PHQ-9 Depression Total Score: 5 12/06/2020 7:02 AM CDT documented as of this encounter Care Teams Torch Solderer Relationship Specialty Start Date End Date Blank Lemos MD PCP - General Internal Medicine 04/22/[address] [place] [address] KISHAN RENO [phone] Blank Lemos MD Assigned PCP 04/25/[address] [place] [address] KISHAN RENO [phone] Kathleen Lacy CNM Assigned OBGYN Provider 06/01/20 11/23/21 [address] [place] [id number] documented as of this encounter
--- OUTSIDE RECORDS SUMMARY | 2022-06-04 09:59 | XMS_ITS | Encounter Summary ---
:1990 Author Organization [place] Address [facility] [place] [address] Care Team Providers Name Role Phone Blank Lemos MD Primary Care Provider Blank Lemos MD Unavailable Anabell Shannon Unavailable Unavailable Sharita Frias MD Unavailable Reason for Referral Diagnostic Imaging Ultrasound (Routine) - Pending Review Specialty Diagnoses / Procedures Referred By Contact Refer red To Contact Diagnoses related condition, antepartum Carmencita Ortiz, Procedures [facility] TIE UP WORKER [facility] [address] [place] [address] Referral ID Status Reason Start Date Expiration Date Visits V isits Requested Authorized [id number] Pending 01/26/2022 01/26/2023 1 1 Review Consultation (Routine) - Pending Review Specialty Diagnoses / Procedures Referred By Contact Refer red To Contact Diagnoses related condition, antepartum Carmencita Ortiz APRN CNP [address] [address] Referral ID Status Reason Start Date Expiration Date Visits V isits Requested Authorized [id number] Pending 01/26/2022 01/26/2023 1 1 Review Encounter Details Date Type Department Care Team Description 01/26/2022 Transcribe Orders M [facility] LuisCaitlin graciela related Maternal Carmencita Carrington APRN condition , Medicine Center DIRECTOR VOICE antepartum (Primary [facility] Dx) [address] [facility] [address] [place] [address] [phone] Social History Tobacco Use Types Packs/Day Years [...] ABREU Study Date: 02/05/2022 10:22am Pat. NO: [id number] Referring ??: COCO ORTIZ Site: [facility] Sampler: Dion mora RDMS : 1990 Age: 32 [...] lb 11 ? oz EFW by ?Hadlock ([id number]) Head / Face / Neck Biometry: Title 1 Tutor ? 5.4 ? mm CM ?3.2 ? [...] vena cava. Inferior vena cava. 3-vessel view. 9-nsmusf-dbblrlj view. Cardiac position. ? Cardiac size. Cardiac [...] a comprehensive ultrasound. She is referred from [place] for BMI > 40. I discussed the findings on today's ultr asound with the patient. I reviewed the limitations of ultrasound both in detecting aneuploidy and structural abnormalities. Ultrasound, when views completed, can routinely dete ct 80-90% of structural abnormalities. She had low risk cell free DNA for genetic screening this . [facility] that was suboptimally seen today. Additional surveillance is recommended in the (growth US every 4-6 weeks, weekly BPP at 34 weeks) and I assume that this will be done in [place]. Return to primary provider for continued care. If you have questions regarding today's evaluation or if we can be of further service, please contact the [facility]. Procedure Note Aimee Aguilar MD - 02/05/2022Form atting of this note might be different from the original. Comprehensive Pat. Name:Noemi ABREU Date: 10:22am Pat. NO: [id number] :CARMENCITA ORTIZ [facility] RDMS :1990Age:32 INDICATION BMI 40 METHOD [...] 1d Hadlock Humerus 31.0 mm 20w 2d [facility] Weight Calculation: EFW 322 g 58% Hadlock EFW (lb,oz) 0 lb 11 oz EFW by Hadlock ([id number]) Head / Face / Neck Biometry: Title 1 Tutor 5.4 mm CM 3.2 mm Nuchal fold [...] vena cava. Inferior vena cava. 3-vessel view. 4-koaceg-opytzni view. Cardiac position. Cardiac size. Cardiac rhythm. [...] a comprehensive ultrasound. She is referred from [place] for BMI > 40. I discussed the [...] assume that this will be done in [place]. Return to primary provider for continued care. [...] long and closed. Carmencita Ortiz APRN DIRECTOR VOICE IMG M US ORDERABLES documented in this encounter Visit Diagnoses Diagnosis related condition, antepartum - Primary related condition, antepartum documented in this encounter Additional Health Concerns Assessment Noted Time PHQ-9 Depression Total Score: 2 11/06/2020 3:02 PM CDT documented as of this encounter Care Teams Validation Manager Relationship Specialty Start Date End Date Blank Lemos, PCP - General Internal Medicine 04/22/18 [address] [facility] KISHAN R[place] [address] Blank Lemos, Assigned PCP 04/25/18 [facility] KISHAN RENO [phone] Anabell Shannon Personal Advocate & 10/25/20 Liaison (PAL) Sharita Frias, Assigned OBGYN Provider 01/25/22 [address] [place] [address] documented as of this encounter
--- OUTSIDE RECORDS SUMMARY | 2022-06-04 09:59 | XMS_ITS | Encounter Summary ---
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 documented as of this encounter Plan of Treatment Not on filedocumented as of this encounter Visit Diagnoses Not on filedocumented in this encounter Additional Health Concerns Assessment Noted Time PHQ-9 Depression Total Score: 5 12/06/2020 7:02 AM CDT documented as of this encounter Care Teams Clinical Care Manager Relationship Specialty Start Date End Date Blank Lemos MD PCP - General Internal Medicine 04/22/[address] [place] [address] KISHAN RENO [phone] Blank Lemos MD Assigned PCP 04/25/[address] [place] [address] KISHAN RENO [phone] Kathleen Lacy CNM Assigned OBGYN Provider 06/01/20 11/23/21 [address] [place] [address] documented as of this encounter
--- OUTSIDE RECORDS SUMMARY | 2022-06-04 09:59 | XMS_ITS | Encounter Summary ---
:1990 Author Organization [place] Address [address] [place] [address]. [place] [address] Care Team Providers Name Role Phone Blank Lemos MD Primary Care Provider Blank Lemos MD Unavailable Kathleen Lacy CNM Unavailable Anabell Shannon Unavailable Unavailable Reason for Visit Reason Comments Care Delivered a girl weighing 7 lbs 15 oz on 09/28/2020 via Contraception Would like the mini pill Encounter Details Date Type Department Care Team Description [facility] MD Blu follow-up (Primary [place] [address] Dx) [address] [place], [place] [address] [address] [place], [place] [phone] [address] (Work) [phone] Social History Tobacco Use Types Packs/Day Years [...] Body Mass Index 41.1 09/28/2020 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
--- OUTSIDE RECORDS SUMMARY | 2022-06-04 09:59 | XMS_ITS | Encounter Summary ---
:1990 Author Organization [place] Address [address] [place] [address] Care Team Providers Name Role Phone Blank [...] documented as of this encounter Care Teams Slitter And Rewinder Machine Operator Relationship Specialty Start Date End Date Blank Lemos, PCP - General Internal Medicine 04/22/[address] [place] [address] KISHAN RENO [phone] Blank Lemos, Assigned PCP 04/25/18 [facility] KISHAN RENO [address] Kathleen Lacy CNM Assigned OBGYN Provider 06/01/20 11/23/21 [address] [place] [id number] Anabell Shannon Personal Advocate & 10/25/20 Liaison (PAL) documented as of this encounter
--- OUTSIDE RECORDS SUMMARY | 2022-06-04 09:59 | XMS_ITS | Encounter Summary ---
:1990 Author Organization [place] Address [address] [facility] [place] [address] Care Team Providers Name Role Phone Blank Lemos MD Primary Care Provider Blank Lemos MD Unavailable Anabell Shannon Unavailable Unavailable Kathleen Lacy CNM Unavailable Sharita Frias MD Unavailable Encounter Details Date Type Department Care Team Description 01/24/2022 Medical Correspondence [facility] Scan, MATERNAL Health Info Mgmt Non-Provider MEDICINE CE [facility] PROVIDER SERVICE [address] [place] [address] [place] [address] [facility] [phone] CENTER Social History Tobacco Use Types Packs/Day [...] documented as of this encounter Care Teams Tipple Repairer Relationship Specialty Start Date End Date Blank Lemos, PCP - General Internal Medicine 04/22/[address] [place] [address] [place] [address] Blank Lemso, Assigned PCP 04/25/[address] [place] [address] KISHAN RENO [id number] Anabell Shannon Personal Advocate & 10/25/20 Liaison (PAL) Kathleen Lacy CNM Assigned OBGYN Provider 01/18/22 01/24/22 [place] [address] Sharita Frias, Assigned OBGYN Provider 01/25/22 [address] [place] [address] documented as of this encounter
--- OUTSIDE RECORDS SUMMARY | 2022-06-04 09:59 | XMS_ITS | Encounter Summary ---
:1990 Author Organization [place] Address Formerly [facility] [place] [address] Care Team Providers Name Role Phone Blank Lemos MD Primary Care Provider Blank Lemos MD Unavailable Kathleen Lacy CNM Unavailable Reason for Visit Reason Comments Laboring Auth/Cert Specialty Diagnoses / Procedures Referred By Contact Refer red To Contact ballet company artistic director Diagnoses Indication for care in labor or delivery Indication for care in labor or delivery Rh Procedures L AND D [address] [place], [place] [address] Phone: Fax: Referral ID Status Reason Start Date Expiration Date Visits Requ ested Visits Authorized [id number] 1 1 Encounter Details Date Type Department Care Team Description 09/28/2020 Surgery [facility] Wendy Gregg, SECTION PeriOp Services DO [address] [address] [place] [address] [place], [place] [id number] (Wo rk) Surgery Details Date/Time Status Location [...] with No / Unsure 09/28/2020 8:47 AM MICROFILM CLERK someone who was confirmed or suspected to have Coronavirus / COVID-19? documented as of this encounter Last Filed Vital Signs Vital Sign Reading Time Taken Comments Blood Pressure 110/66 09/28/2020 9:45 PM MICROFILM CLERK Pulse 85 09/28/2020 9:45 PM MICROFILM CLERK Temperature 36.9 ??C (98.4 ??F) 09/28/2020 9:00 PM MICROFILM CLERK Respiratory Rate 16 09/28/2020 9:45 PM MICROFILM CLERK Oxygen Saturation 96% 09/28/2020 6:09 PM MICROFILM CLERK Inhaled Oxygen Concentration - - Weight 112.9 kg (249 lb) 09/28/2020 8:52 AM MICROFILM CLERK Height 160 cm (5' 3) 09/28/2020 8:52 AM MICROFILM CLERK Body Mass Index 44.11 09/28/2020 8:52 AM MICROFILM CLERK documented in this encounter Discharge Summaries Danial Falcon MD - 09/30/2020 9:24 AM CST [facility] Obstetrics Post-Op / Discharge Summary Note Assessment and Plan: Assessment: Post-operative day #2 Low transverse primary section L&D complications: A 30 year oldikn-lpeo-oab at 40w1d weeks estimated gestational age admitted [...] phosphate (FLEET ENEMA) 1 enema ??? Tdap (otdyitl-fyeiysurct-shdkm pertussis) (ADACEL) injection 0.5 mL ??? tranexamic [...] studies have been ordered Danial Falcon MD OFILM CLERK documented in this encounter Discharge Instructions Discharge InstructionsLakeshia Mullen RN - 09/30/2020 1:40 PM CST Postop Instructions Make an appointment to be seen in the clinic in 6 weeks. [facility]: [phone] Activity ?? Do not lift more than [...] questions or concerns after you return home. OFILM CLERK documented in this encounter Medications at Time [...] Falcon MD - 09/30/2020 9:21 AM CST [facility] Obstetrics Post-Op / Progress Note Assessment and Plan: Assessment: Post-operative day #2 Low transverse primary section L&D complications: A 30 year oldtua-zbfj-ppu at 40w1d weeks estimated gestational age admitted [...] phosphate (FLEET ENEMA) 1 enema ??? Tdap (vkllpuz-vwkvpjybqb-oufwl pertussis) (ADACEL) injection 0.5 mL ??? tranexamic [...] studies have been ordered Danial Falcon MD OFILM CLERK Dina Germain MD - 09/29/2020 11:45 AM [...] discharge in 1-2 days Dina Germain MD OFILM CLERK Soledad Jones CNM - 09/28/2020 6:48 PM [...] prn Britney Jones CNM 09/28/2020 4:36 PM OFILM CLERK Soledad Jones CNM - 09/28/2020 12:51 PM [...] PRN Britney Jones CNM 09/28/2020 2:12 PM OFILM CLERK Soledad Jones CNM - 09/28/2020 10:48 AM [...] to Reassess short interval Soledad Jones CNM OFILM CLERK documented in this encounter H&P Notes Wendy Gregg DO - 09/28/2020 7:18 PM CST [facility] Labor and Delivery Consultation note Rena Resendiz [...] orders Prepare for section. Wendy Gregg DO OFILM CLERK Soledad Jones CNM - 09/28/2020 9:09 AM CST [facility] Labor Admission History & Physical Rena Resendiz is a 30 year old with an IUP at 40w1d ; , Partner/support Person: Micah Language Barrier: [place] Clinic: [facility] Provider: Robert Rena Resendiz is [facility] on 09/28/2020 at 9:09 AM History [...] found, no interventions. Pt thinks this happened [phone] ??? TONSILLECTOMY Family History Problem Relation Age [...] orders Britney Jones CNM 09/28/2020 9:23 AM OFILM CLERK documented in this encounter Miscellaneous Notes Plan of Care - Lakeshia Mullen RN - 09/30/2020 2:41 PM CST Discharge instructions reviewed with patient and . Understanding verbalized. Will discharge to home with and baby. OFILM CLERK Plan of Care - Lakeshia Mullen RN [...] Support persons present. Plan: Anticipate discharge today. OFILM CLERK Plan of Care - Karol Hayden RN - 09/30/2020 2:52 AM CST Pt meeting expected goals for shift. Positive attachment behaviors noted with . Pain managed with scheduled meds - See MAR. Support person Micah at bedside and attentive to pt needs. pt encouraged to complete discharge paperwork/videos. Will continue to monitor and adjust plan as needed. OFILM CLERK Note - Elisabeth Shi RN - 09/29/2020 [...] questions answered. Encouraged to call for assistance. OFILM CLERK Plan of Care - Kathleen Wright RN - 09/29/2020 7:59 PM CST Pt up ambulating independently. Voiding without difficulty. Incision covered . Reports adequate paincontrol with current pain plan. Family present and supportive. Meeting expected goals. Mother attentive to infants needs. , using nipple shield. OFILM CLERK Plan of Care - Maria Del Rosario [...] supportive today. Maria Del Rosario Steven RN OFILM CLERK Plan of Care - Kathleen Hurley RN [...] gluten free diet. FOB here and supportive. OFILM CLERK L&D Delivery Note - Wendy Gregg DO [...] Procedure Details: See operative note Paris Resendiz-Rena [[id number]] Labor Event Times Labor onset date: 09/28/20 [...] Normal 1:1 continuous labor support provided by?: water pump servicer/Placenta Date and Time Delivery Date: 09/28/20 Delivery Time: 8:09 PM Placenta Date/Time: 09/28/2020 8:10 PM Vaginal Counts [place] Suture [place] Sponges Instruments Initial counts Added to count Final counts Placed during labor Accounted for at the end of labor Yes Yes Apgars Living status: Living 1 Minute 5 Minute 10 Minute 15 Minute 20 Minute Skin color: 0 2 Heart rate: 2 2 Reflex irritability: 0 1 Muscle tone: 1 1 Respiratory effort: 2 2 Total: 5 8 Apgars assigned by: Yvon RGOERS Cord Vessels: 3 Vessels Complications: Nuchal Gases Sent?: Yes Resuscitation Methods: None [place] Measurements Weight: 7 lb 15 oz Length: [...] present?: Neg Delivery (Maternal) (Provider to Complete) ([id number]) Episiotomy: None Perineal lacerations: None Blood Loss Mother: Rena Resendiz #[id number] Start of Mother's Information IO Blood Loss 09/28/20 0530 - 09/29/20 0634 None End of Mother's Information Mother: Rena Resendiz #[id number] Delivery - Provider to Complete ([id number]) Delivering clinician: Wendy Gregg DO CNM Care: [...] Position: Left Occiput Anterior Wendy Gregg DO OFILM CLERK Plan of Care - Maricruz Rogers RN - 09/28/2020 11:48 PM CST Data: Renablaine Resendiz transferred to [facility] via launderer hand at 1135. Baby transferred via parent's arms. Action: Receiving unit notified of transfer: Yes. Patient and family notified of room change. Reportgiven to Kathleen TOLLIVER at 2330. Belongings sent to receiving unit. Accompanied by Registered Nurse. Oriented patient to surroundings. Call light within reach. ID bands double-checked with receiving RN. Response: Patient tolerated transfer and is stable. OFILM CLERK Op Note - Wendy Gregg DO - 09/28/2020 8:53 PM CST PREOPERATIVE DIAGNOSIS: A 30 year oldtjc-fqve-pqy at 40w1d weeks estimated gestational age admitted for labor with arrest of dilation, obesity. POSTOPERATIVE DIAGNOSES: A 30 year oldxrb-uaul-qhi at 40w1d weeks estimated gestational age admitted for labor with arrest of dilation, obesity. PROCEDURE: 1. Primary low transverse section. 2. Seprafilm placement for adhesiolysis. COMPLICATIONS: None apparent at time of procedure. ESTIMATED BLOOD LOSS: 400 mL. SURGEON: Wendy Gregg DO. INDICATIONS: A 30 year oldznd-kxbp-agh at 40w1d weeks estimated gestational age admitted [...] counts were correct x2. WENDY GREGG DO OFILM CLERK Plan of Care - Maria Del Rosario Steven RN - 09/28/2020 9:19 AM CST 0735: , 40w1d, here for rule out labor. Pt states she has been nelson every 2-2.5 min [id number] this morning. EUM and EFM placed. Admission [...] to progress. Maria Del Rosario Steven RN OFILM CLERK documented in this encounter Plan of Treatment Scheduled Orders Name Type Priority Associated Diagnoses Order S chedule See Providers Orders Lab Routine Release Upon Ordering for 1 Occurrences sta rting 09/28/2020 documented as of this encounter Procedures Procedure Name Priority Date/Time Associated Comments Diagnosis HEMOGLOBIN Routine 09/29/2020 7:02 AM Indication for care Re sults for this MICROFILM CLERK in labor or procedure are i n delivery the results section. PLACENTA PATH ORDER Routine 09/28/2020 8:13 PM Re sults for this AND INDICATIONS MICROFILM CLERK procedure ar e in the results section. SECTION 09/28/2020 7:48 PM Failure to progres s MICROFILM CLERK in labor TREPONEMA ABS W STAT 09/28/2020 9:23 AM Result s for this REFLEX TO RPR AND MICROFILM CLERK procedure are in TITER the results section. ABO/RH TYPE AND STAT 09/28/2020 9:23 AM Result s for this SCREEN MICROFILM CLERK procedure are i n the results section. SARS-COV-2 (COVID-19) STAT 09/28/2020 8:40 AM Results for this VIRUS RT-PCR MICROFILM CLERK procedure are i n the results section. documented in this encounter Results (ABNORMAL) Hemoglobin (09/29/2020 7:02 AM MICROFILM CLERK) athologist Signature Hemoglobin 10.7 (L) 11.7 - 15.7 09/29/2020 [place] g/dL 7:42 AM [facility] Specimen Anatomical Collection Method Collection Time Receive d Time (Source) Location / / Volume Laterality Blood specimen 09/29/2020 7:02 AM 021 7:03 (specimen) MICROFILM CLERK AM MICROFILM CLERK Wendy Gregg DO LAB - BLOOD ORDERABLES Performing Organization Address City/State/ZIP Code Phon e Number [place] [address] [address] [place] [address] [phone] Placenta Path Order and Indications (PLACENTA) (09/28/2020 8:13 PM MICROFILM CLERK) Component Value Ref Test Analysis Performed At [facility] gist Range Method Time Signature Copath Patient Name: RENA RESENDIZ Report MR#: [id number] Specimen #: [id number] Collected: 09/28/2020 Received: 10/01/2020 Reported: 10/02/2020 12:04 [...] of this testing was completed at the [facility], with the professional compo nent performed at the [facility], [address] [place] [address] [phone] ([phone]) CPT Codes: A: 00319-HM7 COLLECTION SITE: Client: [facility] Location: RHOR (R) Specimen Anatomical Collection Method Collection Time Receive d Time (Source) Location / / Volume Laterality Specimen from 09/28/2020 8:13 PM 10/01/19 21 8:32 placenta MICROFILM CLERK AM MICROFILM CLERK (specimen) Soledad XIAO Performing Organization Address City/State/ZIP Code Phon e Number [place] Treponema Abs w Reflex to RPR and Titer (09/28/2020 9:23 AM MICROFILM CLERK) [facility]ist Method Time Signature Treponema Nonreactive NR^Nonrea 09/28/2020 [facility] ctive 5:03 PM MICROFILM CLERK [facility] Comment: Methodology Change: Test performed on DiaSorin Liaison XL by Treponema pallidum Total Antibodies Assay as of . Specimen Anatomical Collection Method Collection Time Receive d Time (Source) Location / / Volume Laterality Blood specimen 09/28/2020 9:23 AM 021 9:24 (specimen) MICROFILM CLERK AM MICROFILM CLERK Soledad Jones CNM LAB - BLOOD ORDERABLES Performing Organization Address City/State/ZIP Code Phon e Number [address] [address] [facility] ABO/Rh type and screen (09/28/2020 9:23 AM MICROFILM CLERK) [facility] Method Time Signature ABO O 09/28/2020 [place] 10:18 AM [facility] RH(D) Pos [facility] Antibody Neg 09/28/2020 [place] Screen 10:18 AM [facility] Test Valid [place] 09/28/2020 [facility] Only At [facility] 9:43 AM [facility] Specimen 10/01/2020 09/28/2020 [place] Expires 9:43 AM [facility] Specimen Anatomical Collection Method Collection Time Receive d Time (Source) Location / / Volume Laterality Blood specimen 09/28/2020 9:23 AM 021 9:24 (specimen) MICROFILM CLERK AM MICROFILM CLERK Soledad Jones CNM LAB - BLOOD BANK TEST ORDER Performing Organization Address City/State/ZIP Code Phon e Number M [facility] [address] [address] [facility] [address] [phone] Asymptomatic SARS-CoV-2 COVID-19 Virus (Coronavirus) by PCR (09/28/2020 8:40 AM MICROFILM CLERK) [facility] Method Time Signature SARS-CoV-2 Nasopharyngeal 09/28/2020 [place] Virus 8:51 AM [facility] Source SARS-CoV-2 NEGATIVE 09/28/2020 [place] PCR Result 9:13 AM [facility] Comment: SARS-CoV2 (COVID-19) RNA not de tected, presumed negative. SARS-CoV-2 PCR Comment (Note) 09/28/2020 9:13 A M [facility] Comment: Testing was performed using [...] or clinical pr esentation suggests COVID-19. M [facility] [place] are certi fied under the Clinical Laboratory Improvement Amendments of 1988 (CLIA-88) as qualified to perform moderate and/or high complexity laboratory testin g. Specimen (Source) Anatomical Collection Method Collection Time Re ceived Time Location / / Volume Laterality Specimen from 09/28/2020 8:40 09/28/2020 nasopharyngeal AM MICROFILM CLERK 8:51 AM MICROFILM CLERK structure (specimen) Soledad Jones CNM LAB - MICRO GENERAL ORDERABL ES Performing Organization Address City/State/ZIP Code Phon e Number [place] [address] [address] [facility] [address] [phone] documented in this encounter Visit Diagnoses Diagnosis [...] acetaminophen (TYLENOL) tablet Given 09/30/2020 12:04 PM MICROFILM CLERK 975 mg 975 mg 975 mg, Oral, EVERY 6 HOURS, First dose on Thu09/28/20 at 2330, Maximum acetaminophen dose from all sources = 75 mg/kg/day not to exceed 4 grams/day., Post-procedure Given 09/30/2020 5:42 AM MICROFILM CLERK 975 mg Given 09/30/2020 12:09 AM MICROFILM CLERK 975 mg dextrose 5% in lactated ringers infusion New Bag 09/29/2020 2:00 AM MICROFILM CLERK 125 mL/hr at 125 mL/hr, Intravenous, CONTINUOUS, Subsequent IV at nurse's discretion. DC IV when tolerating fluids or at nurse's discretion & saline lock., Post-procedure, Starting on Thu09/28/20 at 2330, Until 09/30/20 at 1703 escitalopram (LEXAPRO) tablet 20 mg Given 09/29/2020 10:37 PM MICROFILM CLERK 20 mg 20 mg, Oral, DAILY, First dose on 09/29/20 at 0900 ibuprofen (ADVIL/MOTRIN) tablet 800 mg Given 09/30/2020 10:24 AM MICROFILM CLERK 800 mg 800 mg, Oral, EVERY 6 HOURS, First dose on 09/29/20 at 2100, Give with food., Post-procedure Given 09/30/2020 4:33 AM MICROFILM CLERK 800 mg Given 09/29/2020 10:36 PM MICROFILM CLERK 800 mg naloxone (NARCAN) injection 0.2 mg [...] injection 4 mg Given 09/29/2020 12:56 AM MICROFILM CLERK 4 mg 4 mg, Intravenous, EVERY 6 HOURS PRN, nausea, vomiting, Administer over 2-5 Minutes, Starting on Thu09/28/20 at 2316, If nausea not resolved in 15 minutes, notify provider before proceeding to prochlorperazine (COMPAZINE) [if ordered]. Irritant. For ordered IV doses 0.1-4 mg, give IV Push undiluted over 2-5 minutes., Post-procedure oxyCODONE (ROXICODONE) tablet 5 mg Given 09/29/2020 10:36 PM MICROFILM CLERK 5 mg 5 mg, Oral, EVERY 4 HOURS PRN, other, pain control or improvement in physical function. Hold dose for analgesic side effects., Starting on Thu09/28/20 at 2316, Notify provider to assess for uncontrolled pain or analgesic side effects. Hold while on BALANCE ENGINEER or with regular IV opioid dosing. Maximum total is 60 mg in 24 hours., Post-procedure Given 09/29/2020 1:04 PM MICROFILM CLERK 5 mg senna-docusate (SENOKOT-S/PERICOLACE) Given 09/30/2020 9:[address] 1 tablet 8.6-50 MG per tablet 1 tablet 1 tablet, Oral, 2 TIMES DAILY, First dose on Thu09/28/20 at 2330, If no bowel movement in 24 hours, increase to 2 tablets PO. Hold for loose stools. Preferred agent for constipation related to opioids. Hold for loose stools., Post-procedure Given 09/29/2020 10:36 PM MICROFILM CLERK 1 tablet Given 09/29/2020 9:50 AM MICROFILM CLERK 1 tablet senna-docusate (SENOKOT-S/PERICOLACE) 8. 6-50 MG per tablet 2 tablet 2 tablet, Oral, 2 TIMES DAILY, First dos e on Thu09/28/20 at 2330, Hold for loose stools. Preferred agent for constipation related to op ioids. Hold for loose stools., Post-procedure simethicone (MYLICON) chewable tablet 80 mg Given 09/30/2020 3:27 AM MICROFILM CLERK 80 mg 80 mg, Oral, 4 TIMES DAILY PRN, other, gas, Starting on Thu09/28/20 at 2316, Chew., Post-procedure sodium chloride (PF) 0.9% PF flush 3 mL Given 09/29/2020 4:01 PM MICROFILM CLERK 3 mLs 3 mL, Intracatheter, EVERY 8 HOURS PRN, other, to lock peripheral IV dormant line, Starting on Thu09/28/20 at 2316, Post-procedure documented in this encounter Active and Recently Administered Medications Times are shown in MICROFILM CLERK. Scheduled Medication Order 09/28/2020 09/29/2020 09/30/2020 acetaminophen (TYLENOL) tablet 975 mg 00 56 (Not Given - Provider: aKthleen Hurley RN - Reason: Nausea)0613 (Given - [...] Maricruz Rogers, RN) STAT, 500 mg, Intravenous, PRE-OP/PRE-LA OCEDURE, Starting Thu09/28/20 at 1851, For 1 [...] Initial Set-up verified by: verified by Dr. Kimbel and Maria Del Rosario Steven RN, Absolu [...] minutes PRIOR TO SURGICAL PROCEDURE., Pre-procedure Tdap (zxtxixb-beaepfnjut-mnvzs pertussis) (ADACEL) injection 0.5 mL 1000 (Canceled [...] Provider) 50-100 mcg, Intravenous, EVERY 1 HOUR LA N, other, desired pain relief based on [...] For ordered IV doses 0.1-2mg give I CORPORATE ATTORNEY. Give each 0.4mg over 15 seconds in [...] or analgesic side effects. Hold while on BALANCE ENGINEER or with regular IV opioid dosing. Maximum [...] documented as of this encounter Care Teams Nuclear Security Officer Relationship Specialty Start Date End Date Blank Lemos MD PCP - General Internal Medicine 04/22/[address] [place] [address] [place] [phone] Blank Lemos MD Assigned PCP 04/25/[address] [place] [address] [place] [id number] Kathleen Lacy CNM Assigned OBGYN Provider 06/01/20 11/23/21 [place] [address] documented as of this encounter
--- OUTSIDE RECORDS SUMMARY | 2022-06-04 09:59 | XMS_ITS | Encounter Summary ---
:1990 Author Organization [place] Address [address] [place] [address] Care Team Providers Name Role Phone Blank Lemos MD Primary Care Provider Blank Lemos MD Unavailable Kathleen Lacy CNM Unavailable Anabell Shannon Unavailable Unavailable Encounter Details Date Type Department Care Team Description 11/27/2020 Medical Correspondence [facility] Scan, [facility] Non-Provider POST-ANDIE Srvcs DEPRESSION SCALE [address] [place] [address] [place] [address] WELL-CHILD VISITS [phone] Social History Tobacco Use Types Packs/Day Years [...] documented as of this encounter Care Teams Bone Crusher Relationship Specialty Start Date End Date Blank Lemos, PCP - General Internal Medicine 04/22/[address] [place] [address] [place] [id number] Blank Lemos, Assigned PCP [facility] [place] [address] Kathleen Lacy CNM Assigned OBGYN Provider 06/01/20 11/23/21 [place] [address] Anabell Shannon Personal Advocate & 10/25/20 Liaison (PAL) documented as of this encounter
--- OUTSIDE RECORDS SUMMARY | 2022-06-04 09:59 | XMS_ITS | Encounter Summary ---
:1990 Author Organization [place] Address [address] [place] [address]. [place] [address] Care Team Providers Name Role Phone Blank Lemos MD Primary Care Provider Blank Lemos MD Unavailable Kathleen Lacy CNM Unavailable Reason for Visit Auth/Cert Specialty Diagnoses / Procedures Referred By Contact Refer red To Contact loan closer Diagnoses Indication for care in labor or delivery Indication for care in labor or delivery Rh Procedures L AND D [address] [place], [place] [address] Phone: Fax: Referral ID Status Reason Start Date Expiration Date Visits Requ ested Visits Authorized [id number] 1 1 Encounter Details Date Type Department Care Team Description 09/28/2020 Anesthesia Event [facility] Lawrence Kimble DO [facility] ANESTHESIA [address] [place], [place] [address] Birthplace Lorenzo Hernandez MD [facility] ANESTHESIA [address] [place], [place] [id number] [address] [place] [phone] Anesthesia Record Procedure Summary Procedure Name Responsible [...] Lawrence Kimble DO Maas, Tracy M, APRN SALES ESTIMATOR documented in this encounter Social History Tobacco [...] with No / Unsure 09/28/2020 8:47 AM AVIATION SUPPORT EQUIPMENT REPAIRER someone who was confirmed or suspected to [...] Kimble DO September 29, 2020 10:19 AM TION SUPPORT EQUIPMENT REPAIRER Anesthesia Procedure Notes - Lawrence Kimble DO - 09/28/2020 10:26 AM AVIATION SUPPORT EQUIPMENT REPAIRER Associated Order(s): Epidural Block Pre-Procedure Staff - [...] frequently monitored at necessary intervals. Sandra Kimble TION SUPPORT EQUIPMENT REPAIRER Anesthesia Preprocedure Evaluation - Lawrence Kimble DO [...] found, no interventions. Pt thinks this happened [phone] ??? TONSILLECTOMY Allergies Allergen Reactions ??? Doxycycline [...] and realistic alternatives discussed. Questions answered and patient/guest relations representative(s) expressed understanding. - Discussed with: Patient Postoperative Care Comments: BMI-44 Larwence Kimble DO TION SUPPORT EQUIPMENT REPAIRER documented in this encounter Miscellaneous Notes Addendum Note - Sydnie Frost - 10/01/2020 8:11 AM CST Addendum created 10/01/20 0811 by Sydnie Frost Charge Capture section accepted TION SUPPORT EQUIPMENT REPAIRER Addendum Note - Lawrence Kimble DO - 09/29/2020 10:19 AM CST Addendum created 09/29/20 1019 by Lawrence Kimble DO Clinical Note Signed TION SUPPORT EQUIPMENT REPAIRER documented in this encounter Plan of Treatment Not on filedocumented as of this encounter Procedures Procedure Name Priority Date/Time Associated Diagnosis Comme nts ANE EPIDURAL BLOCK Routine 09/28/2020 10:26 AM Re sults for this AVIATION SUPPORT EQUIPMENT REPAIRER procedure are i n the results section. documented in this encounter Results FV AN EPIDURAL DUMMY PERFORMABLE (09/28/2020 10:26 AM AVIATION SUPPORT EQUIPMENT REPAIRER) Narrative Lawrence Kimble DO - 09/28/2020 10:26 AM AVIATION SUPPORT EQUIPMENT REPAIRER Lawrence Kimble DO ? 09/28/2020 10:28 AM [...] necessary intervals. R Kimble Lawrence Kimble DO [place] ANESTHESIA documented in this encounter Visit Diagnoses Not on filedocumented in this encounter Additional Health Concerns Assessment Noted Time PHQ-9 Depression Total Score: 5 12/06/2020 7:02 AM CDT documented as of this encounter Care Teams Bias Cutting Machine Operator Vertical Relationship Specialty Start Date End Date Blank Lemos MD PCP - General Internal Medicine 04/22/18 [address] [facility] [place] [phone] Blank Lemos MD Assigned PCP 04/25/18 [address] [facility] [place] [address] Kathleen Lacy CNM Assigned OBGYN Provider 06/01/20 11/23/21 [address] [place] [address] documented as of this encounter
--- OUTSIDE RECORDS SUMMARY | 2022-06-04 09:59 | XMS_ITS | Encounter Summary ---
:1990 Author Organization [place] Address [address] [place] [address]. [place] [address] Care Team Providers Name Role Phone Blank Lemos MD Primary Care Provider Blank Lemos MD Unavailable Kathleen Lacy CNM Unavailable Reason for Visit Auth/Cert Specialty Diagnoses / Procedures Referred By Contact Refer red To Contact pin machine tender Diagnoses Indication for care in labor or delivery Indication for care in labor or delivery Rh Procedures L AND D [address] [place], [place] [address] Phone: Fax: Referral ID Status Reason Start Date Expiration Date Visits Requ ested Visits Authorized [id number] 1 1 Encounter Details Date Type Department Care Team Description 09/28/2020 Anesthesia Event [facility] Narinder Franklin PeriOp Services MD Vinicio [address] [place] [address] ANESTHESIA [id number] [facility] [address] [place], [place] [address] (Wo rk) Anesthesia Record [...] with No / Unsure 09/28/2020 8:47 AM VENDING MACHINE COIN COLLECTOR someone who was confirmed or suspected [...] Last vitals prior to Anesthesia Care Transfer: DENTAL PROFESSIONAL VITALS 09/28/2020 2016 - 09/28/2020211509/28/2020 Pulse: 105 SpO2: 99 % Electronically Signed By: Narinder Franklin MD October 10, 2020 8:11 AM ING MACHINE COIN COLLECTOR Anesthesia Postprocedure Evaluation - Narinder Franklin MD [...] Last vitals prior to Anesthesia Care Transfer: DENTAL PROFESSIONAL VITALS 09/28/20202015 - 09/28/2020211509/28/2020 Pulse: 105 SpO2: 99 % Electronically Signed By: Narinder Franklin MD October 10, 2020 8:10 AM ING MACHINE COIN COLLECTOR Anesthesia Preprocedure Evaluation - Narinder Franklin MD [...] found, no interventions. Pt thinks this happened [phone] ??? TONSILLECTOMY Allergies Allergen Reactions ??? Doxycycline [...] and realistic alternatives discussed. Questions answered and patient/bilingual inside sales representative(s) expressed understanding. - Discussed with: Patient Postoperative Care Pain management: IV analgesics, Neuraxial analgesia. PONV prophylaxis: Ondansetron (or other 5HT-3), Dexamethasone or Solumedrol Comments: Narinder Franklin MD ING MACHINE COIN COLLECTOR documented in this encounter Miscellaneous Notes Anesthesia [...] (Last set prior to Anesthesia Care Transfer) DENTAL PROFESSIONAL VITALS 09/28/20202015 - 09/28/2020205409/28/2020 Pulse: 105 SpO2: 99 % Electronically Signed By: Annalise Lux APRN CRNA September 28, 2020 8:55 PM ING MACHINE COIN COLLECTOR documented in this encounter Plan of Treatment Not on filedocumented as of this encounter Visit Diagnoses Not on filedocumented in this encounter Administered Medications Inactive Administered Medications - up to 3 most recent administrations Medication Order MAR Action Action Date Dose Rate Site ceFAZolin (ANCEF) intermittent Given 09/28/2020 7:53 PM VENDING MACHINE COIN COLLECTOR 2 g infusion 2 g in 100 mL dextrose PRE-MIX Routine, PRN, Starting on Thu09/28/20 at 195, Anesthesia Intra-op dexamethasone (DECADRON) injection Given 09/28/2020 7:52 PM VENDING MACHINE COIN COLLECTOR 4 mg PRN, Administer over 1 Minutes, Starting on Thu09/28/20 at 1951, Anesthesia Intra-op glycopyrrolate (ROBINUL) injection Given 09/28/2020 7:52 PM VENDING MACHINE COIN COLLECTOR 0.1 mg PRN, Administer over 1-2 Minutes, Starting on Thu09/28/20 at 1951, Anesthesia Intra-op ketorolac (TORADOL) injection Given 09/28/2020 8:44 PM VENDING MACHINE COIN COLLECTOR 30 mg PRN, Administer over 2 Minutes, Starting on Thu09/28/20 at 2044, Anesthesia Intra-op lidocaine 2%-EPINEPHrine 1:200,000 injec tion Given 09/28/2020 7:50 PM VENDING MACHINE COIN COLLECTOR 15 mLs EPIDURAL, PRN, Starting on Thu09/28/20 at 1950, Anesthesia Intra-op morphine (PF) (DURAMORPH) injection Given 09/28/2020 8:13 PM VENDING MACHINE COIN COLLECTOR 3 mg Intrathecal, PRN, Administer over 4-5 Minutes, Starting on Thu09/28/20 at 2013, Anesthesia Intra-op ondansetron (ZOFRAN) injection 4 mg Given 09/28/2020 7:52 PM VENDING MACHINE COIN COLLECTOR 4 mg 4 mg, Intravenous, EVERY 6 HOURS PRN, nausea, vomiting, Administer over 2-5 Minutes, Starting on Thu09/28/20 at 0746, If nausea not resolved in 15 minutes, notify provider before proceeding to prochlorperazine (COMPAZINE) [if ordered]. Irritant. For ordered IV doses 0.1-4 mg, give IV Push undiluted over 2-5 minutes. oxytocin (PITOCIN) 30 units in 500 mL 0.9% Given 09/28/2020 8:11 PM VENDING MACHINE COIN COLLECTOR 500 mLs NaCl infusion Intravenous, PRN, Starting on Thu09/28/20 at 2011, Anesthesia Intra-op phenylephrine (ZULMA-SYNEPHRINE) New Bag 09/28/2020 7:53 PM 50 mcg/m in 30 mL/hr injection VENDING MACHINE COIN COLLECTOR Intravenous, CONTINUOUS PRN, Starting on Thu09/28/20 at 1953, Anesthesia Intra-op documented in this encounter Additional Health Concerns Assessment Noted Time PHQ-9 Depression Total Score: 5 12/06/2020 7:02 AM CDT documented as of this encounter Care Teams Printing Assistant Relationship Specialty Start Date End Date Blank Lemos MD PCP - General Internal Medicine 04/22/[address] [facility] K[place]AN RENO [phone] Blank Lemos MD Assigned PCP 04/25/[address] [facility] [place] [phone] Kathleen Lacy, YARELI Assigned OBGYN Provider 06/01/20 11/23/21 [address] [place], [place] [address] documented as of this encounter
--- OUTSIDE RECORDS SUMMARY | 2022-06-04 09:59 | XMS_ITS | Encounter Summary ---
:1990 Author Organization [place] Address [facility] [place] [address] Care Team Providers Name Role Phone Blank [...] Procedures MFM US Comprehensive Single F/U [address] [place], [place] [address] Referral ID Status Reason Start Date Expiration Date Visits V isits Requested Authorized [id number] Pending 02/05/2022 02/05/2023 1 1 Review Reason for Visit Reason Comments Ultrasound L2-BMI 40 Encounter Details Date Type Department Care Team Description 02/05/2022 Office Visit [facility] Coco Ortiz APRN [facility] [address] [place] [address] abnormality Maternal Aimee Aguilar MD [address] [place], [place] [phone] affecting management Medicine Center of mother, Kely antepartum, single or [address] unspecif ied fetus [address] (Primary Dx) [place] [phone] Social History Tobacco Use Types Packs/Day Years [...] ABREU Study Date: 03/05/2022 9:05am Pat. NO: [id number] Referring ??MD: COCO ORTIZ Site: [facility] Teachers Assistant: Hood Mcwilliams RDMS : 1990 Age: 32 [...] 1 lb 5 ?oz EFW by ?Hadlock ([id number]) Head / Face / Neck Biometry: Radio Board Operator ? 4.9 ? mm CM ?4.8 [...] documented previously: Heart / Thorax ?RVOT view. 8-fqzkza-wxuewjw view. ? Diaphragm. Spine ?Sacral spine. Gender: [...] are anticipat ed to be done in [place]. We recommend serial growth every 4-6 weeks [...] Pat. Name:Noemi ABREU Date: 9:05am Pat. NO: [id number] MD:CARMENCITA ORTIZ [facility]Sandra Fleming :1990Age:32 INDICATION BMI 40 METHOD Transabdominal [...] 1 lb 5 oz EFW by Hadlock ([id number]) Head / Face / Neck Biometry: Radio Board Operator 4.9 mm CM 4.8 mm Nasal [...] documented previously: Heart / Thorax RVOT view. 5-rkccha-phdnb ea view. Diaphragm. Spine Sacral spine. Gender: [...] are anticipat ed to be done in [place]. We recommend serial growth every 4-6 weeks [...] volume appeared no rmal. Aimee Aguilar MD [facility] US ORDERABLES documented in this encounter Visit Diagnoses Diagnosis abnormality affecting management o f mother, antepartum, single or unspecified fetus - Primary abnormality affecting management o f mother, antepartum, single or unspecified fetus documented in this encounter Additional Health Concerns Assessment Noted Time PHQ-9 Depression Total Score: 2 11/06/2020 3:02 PM CDT documented as of this encounter Care Teams Health Services Coordinator Relationship Specialty Start Date End Date Blank Lemos, PCP - General Internal Medicine 04/22/[address] [place] [address] [address] [place], [place] [phone] Blank Lemos, Assigned PCP 04/25/[address] [place] [address] [place] [address] Anabell Shannon Personal Advocate & 10/25/20 Liaison (PAL) Sharita Frias, Assigned OBGYN Provider 01/25/22 [address] [place] [address] documented as of this encounter
--- OUTSIDE RECORDS SUMMARY | 2022-06-04 09:59 | XMS_ITS | Encounter Summary ---
:1990 Author Organization [place] Address [facility] [place] [address] Care Team Providers Name Role Phone Blank Lemos MD Primary Care Provider Blank Lemos MD Unavailable Anabell Shannon Unavailable Unavailable Sharita Frias MD Unavailable Reason for Visit Reason Comments Ultrasound L2- BMI 40 Encounter Details Date Type Department Care Team Description 01/29/2022 PRE VISIT [facility], Ultrasound (L2- BMI 40) Maternal Medicine [facility] [address] [place] [address] [place] [address] Social History Tobacco Use Types [...] documented as of this encounter Care Teams Quick Technician Relationship Specialty Start Date End Date Blank Lemos, PCP - General Internal Medicine 04/22/[address] [place] [address] [place] [phone] Blank Lemos, Assigned PCP 04/25/[address] [place] [address] [place] [phone] Anabell Shannon Personal Advocate & 10/25/20 Liaison (PAL) Sharita Frias, Assigned OBGYN Provider 01/25/22 [address] [place] [address] documented as of this encounter
--- OUTSIDE RECORDS SUMMARY | 2022-06-04 09:59 | XMS_ITS | Encounter Summary ---
:1990 Author Organization [place] Address [facility] [place] [address] Care Team Providers Name Role Phone Blank Lemos MD Primary Care Provider Blank Lemos MD Unavailable Anabell Shannon Unavailable Unavailable Sharita Frias MD Unavailable Reason for Referral Diagnostic Imaging Ultrasound (Routine) - Pending Review Specialty Diagnoses / Procedures Referred By Contact Refer red To Contact Diagnoses related condition, antepartum Carmencita Ortiz, Procedures [address] [address] Referral ID Status Reason Start Date Expiration Date Visits V isits Requested Authorized [id number] Pending 01/26/2022 01/26/2023 1 1 Review Reason for Visit Diagnostic Imaging Ultrasound (Routine) - Pending Review Specialty Diagnoses / Procedures Referred By Contact Refer red To Contact Diagnoses related condition, antepartum Carmencita Ortiz, Procedures [address] [address] Referral ID Status Reason Start Date Expiration Date Visits V isits Requested Authorized [id number] Pending 01/26/2022 01/26/2023 1 1 Review Encounter Details Date Type Department Care Team Description 02/05/2022 Hospital Encounter [facility] Federico Ortiz APRN [facility] [address] [place] [address] related Maternal Aimee Aguilar MD [address] [place] [address] condition, Medicine Center antepartum [place] [address] [place] [address] Social History Tobacco Use Types [...] Procedure Name Priority Date/Time Associated Comments Diagnosis [facility] US COMPREHENSIVE Routine 02/05/2022 11:12 relate d Results for this SINGLE AM CDT condition, procedure are i n antepartum the results section. documented in this encounter Results [facility] US Comprehensive Single (02/05/2022 11:12 AM CDT) [...] ABREU Study Date: 02/05/2022 10:22am Pat. NO: [id number] Referring ??MD: COCO ORTIZ Site: [facility] Head Loader: Dion mora RDMS : 1990 Age: 32 [...] lb 11 ? oz EFW by ?Hadlock ([id number]-FL) Head / Face / Neck Biometry: Emergency Department ? 5.4 ? mm CM ?3.2 ? [...] vena cava. Inferior vena cava. 3-vessel view. 5-ddtfju-powxthu view. Cardiac position. ? Cardiac size. Cardiac [...] a comprehensive ultrasound. She is referred from [place] for BMI > 40. I discussed the findings on today's ultr asound with the patient. I reviewed the limitations of ultrasound both in detecting aneuploidy and structural abnormalities. Ultrasound, when views completed, can routinely dete ct 80-90% of structural abnormalities. She had low risk cell free DNA for genetic screening this . Follow-up is scheduled here in [facility] to reassess anatomy that was suboptimally seen today. Additional surveillance is recommended in the (growth US every 4-6 weeks, weekly BPP at 34 weeks) and I assume that this will be done in [place]. Return to primary provider for continued care. If you have questions regarding today's evaluation or if we can be of further service, please contact the Maternal- Medicine Center. Procedure Note Aimee Aguilar MD - 02/05/2022Form atting of this note might be different from the original. Comprehensive Pat. Name:Noemi ABREU Date: 10:22am Pat. NO: [id number] MD:CARMENCITA ORTIZ Site:[place]her:iDon Cruz RDMS :1990Age:32 INDICATION BMI 40 METHOD [...] 0 lb 11 oz EFW by Hadlock ([id number]) Head / Face / Neck Biometry: Emergency Department 5.4 mm CM 3.2 mm Nuchal fold [...] vena cava. Inferior vena cava. 3-vessel view. 2-kbpmdr-nbflbne view. Cardiac position. Cardiac size. Cardiac rhythm. [...] a comprehensive ultrasound. She is referred from [place] for BMI > 40. I discussed the findings on today's ultr asound with the patient. I reviewed the limitations of ultrasound both in detecting aneuploidy and structural abnormalities. Ultrasound, when views completed, can routinely dete ct 80-90% of structural abnormalities. She had low risk cell free DNA for genetic screening this . Follow-up is scheduled here in [facility] to reassess anatomy that was suboptimally seen today. Additional surveillance is recommended in the (growth US every 4-6 weeks, weekly BPP at 34 weeks) and I assume that this will be done in [place]. Return to primary provider for continued care. [...] cervix appears long and closed. Carmencita Ortiz SNOW FENCE ERECTOR ERP CONSULTANT IMG MFM US ORDERABLES documented in this encounter Visit Diagnoses Diagnosis related condition, antepartum documented in this encounter Additional Health Concerns Assessment Noted Time PHQ-9 Depression Total Score: 2 11/06/2020 3:02 PM CDT documented as of this encounter Care Teams Dispatch Lead Relationship Specialty Start Date End Date Blank Lemos, PCP - General Internal Medicine [facility] [place] [phone] Blank Lemos, Assigned PCP 04/25/18 [facility] [place] [phone] Anabell Shannon Personal Advocate & 10/25/20 Liaison (PAL) Sharita Frias, Assigned OBGYN Provider 01/25/22 [address] [place] [place], [place] [phone] documented as of this encounter
--- OUTSIDE RECORDS SUMMARY | 2022-06-04 09:59 | XMS_ITS | Encounter Summary ---
:1990 Author Organization [place] Address [address] [place] [address] Care Team Providers Name Role Phone Blank [...] documented as of this encounter Care Teams Garnett Mechanic Relationship Specialty Start Date End Date Blank Lemos, PCP - General Internal Medicine 04/22/[address] [place] [address] [place] [phone] Blank Lemos, Assigned PCP 04/25/[address] [facility] [address] [facility] [facility] [place] [address] Kathleen Lacy CNM Assigned OBGYN Provider 06/01/20 11/23/21 [address] [place] [address] Anabell Shannon Personal Advocate & 10/25/20 Liaison (PAL) documented as of this encounter
--- OUTSIDE RECORDS SUMMARY | 2022-06-04 09:59 | XMS_ITS | Encounter Summary ---
:1990 Author Organization [place] Address [address] [place] [address] Care Team Providers Name Role Phone Blank [...] with No / Unsure 09/24/2020 2:11 PM AUTOMOTIVE PARTS COUNTER ASSISTANT someone who was confirmed or suspected to have Coronavirus / COVID-19? documented as of this encounter Plan of Treatment Not on filedocumented as of this encounter Visit Diagnoses Not on filedocumented in this encounter Additional Health Concerns Assessment Noted Time PHQ-9 Depression Total Score: 5 12/06/2020 7:02 AM CDT documented as of this encounter Care Teams Oil Heater Operator Relationship Specialty Start Date End Date Blank Lemos MD PCP - General Internal Medicine 04/22/[address] [place] [address] K[place] R[place] [phone] Blank Lemos MD Assigned PCP 04/25/[address] [place] [address] [place] [phone] Kathleen Lacy CNM Assigned OBGYN Provider 06/01/20 11/23/21 [address] [place] [id number] documented as of this encounter
--- OUTSIDE RECORDS SUMMARY | 2022-06-04 09:59 | XMS_ITS | Encounter Summary ---
:1990 Author Organization [place] Address [address] [facility] [place] [address] Care Team Providers Name Role Phone Blank Lemos MD Primary Care Provider Blank Lemos MD Unavailable Kathleen Lacy CNM Unavailable Reason for Visit Reason Comments Care 39 weeks and 4 days Encounter Details Date Type Department Care Team Description 09/24/2020 Office [facility] Rand Kam h-risk , third trimester (Primary Dx); [facility] GINNY Granados CNM Uterine size-date discrepancy in third t rimester; [place] [address] Excessive weight gain affect ing [address] [place], [place] [address] [address] [place], [place] [phone] [address] (Work) [phone] Social History Tobacco Use Types Packs/Day Years [...] with No / Unsure 09/24/2020 2:11 PM WATCHER LOOKOUT TOWER someone who was confirmed or suspected to have Coronavirus / COVID-19? documented as of this encounter Last Filed Vital Signs Vital Sign Reading Time Taken Comments Blood Pressure 128/86 09/24/2020 2:13 PM WATCHER LOOKOUT TOWER Pulse - - Temperature - - Respiratory Rate - - Oxygen Saturation - - Inhaled Oxygen Concentration - - Weight 112.9 kg (249 lb) 09/24/2020 2:13 PM WATCHER LOOKOUT TOWER Height - - Body Mass Index 44.11 04/09/2020 1:36 PM CDT documented in this encounter Progress Notes Rand Kam APRN CNM - 09/24/2020 2:15 PM CST Rena Turner presents to clinic alone at 39w4d for a routine appointment. She reports she is feeling well and has no concerns. Normal movement. Denies bleeding, LOF, or regular, painful contractions. [place] like labor might be starting Thursday and [...] RTC in 1 week, sooner if problems. HER LOOKOUT TOWER documented in this encounter Nursing Notes Gonzalez [...] smoking habits. Pt. has never smoked. +FM HER LOOKOUT TOWER documented in this encounter Plan of Treatment [...] documented as of this encounter Care Teams Combination Welder Apprentice Relationship Specialty Start Date End Date Blank Lemos MD PCP - General Internal Medicine 04/22/[address] [place] [address] [place] [address] Blank Lemos MD Assigned PCP 04/25/[address] [place] [address] [place] [address] Kathleen Lacy CNM Assigned OBGYN Provider 06/01/20 11/23/21 [address] [place] [address] documented as of this encounter
--- OUTSIDE RECORDS SUMMARY | 2022-06-04 09:59 | XMS_ITS | Encounter Summary ---
:1990 Author Organization [place] Address [address] [facility] [place] [address] Care Team Providers Name Role Phone Blank Lemos MD Primary Care Provider Blank Lemos MD Unavailable Kathleen Lacy CNM Unavailable Anabell Shannon Unavailable Unavailable Encounter Details Date Type Department Care Team Description 10/03/[address] [facility] Scan, EPISODE SUMMARY Health Info Mgmt Non-Provider REPORT ACCE CARE Srs [address] [place] [address] Social History Tobacco Use Types [...] as of this encounter Care Teams Family And Consumer Education Teacher Relationship Specialty Start Date End Date Blank Lemos, PCP - General Internal Medicine 04/22/[address] [place] [address] [place] [address] Blank Lemos, Assigned PCP 04/25/[address] [place] [address] [place] [phone] Kathleen Lacy CNM Assigned OBGYN Provider 06/01/20 11/23/21 [place] [address] Anabell Shannon Personal Advocate & 10/25/20 Liaison (PAL) documented as of this encounter
--- OUTSIDE RECORDS SUMMARY | 2022-06-04 09:59 | XMS_ITS | Encounter Summary ---
:1990 Author Organization [place] Address [facility] 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 HPV 18 DNA Negative NEG^Negat 11/12/2020 [facility] 2:05 PM CDT [facility] Other HR HPV Positive (A) NEG^Negat 11/12/2020 [facility] 2:05 PM CDT [facility] Final This patient's sample is pos itive for other HR HPV DNA (types 31, 33, 35, 39, 45, 51, 52, 11/12/2020 [facility] 56, 58, 59, 66 or 68), not H PV 16 or HPV 18 DNA. This result requires clinical correlation 2:05 PM CDT [facility] with concurrent cytology findings. [facility] Comment: This test was developed and its performa nce characteristics determined by the [facility], Molecular Diagnostics Laboratory. It has not been [...] Cervical Cells 11/06/2020 2:5 0 PM CDT [facility] Specimen Anatomical Collection Method Collection Time Receive d Time (Source) Location / / Volume Laterality Cervical Cells 11/06/2020 2:54 PM 021 2:55 CDT PM CDT Sharita Salinas MD LAB - BLOOD ORDERABLES Performing Organization Address City/State/ZIP Code Phon e Number [facility] [address] [place] [address] [facility] [address] [place] [address] [facility] Pap imaged thin layer diagnostic with HPV (select HPV order below) (11/06/2020 2:50 PM CDT) Component Value Ref Test Analysis Performed At Patholo gist Range Method Time Signature PAP NIL COPATH Copath Report COPATH Patient Name: RENA RESENDIZ MR#: [id number] Specimen #: [id number] Collected: 11/06/2020 Received: 11/07/2020 Reported: 11/08/2020 15:09 [...] or other cancer s. COLLECTION SITE: Client: ??[facility] Location: TERESSA (Sandra) The technical component of this testing was completed at the [facility], with the professional compo nent performed at the [facility], [address] [place] [address], [place] [address] ([phone]) Specimen (Source) Anatomical Collection Method Collection Time [...] as of this encounter Care Teams Senior Contracts Manager Relationship Specialty Start Date End Date Blank Lemos, PCP - General Internal Medicine [facility] K[place]AN R[place] [phone] Blank Lemos, Assigned PCP 04/25/18 [facility] [place] [address] Kathleen Lacy CNM Assigned OBGYN Provider 06/01/20 11/23/21 [address] [place] [address] Anabell Shannon Personal Advocate & 10/25/20 Liaison (PAL) documented as of this encounter
--- OUTSIDE RECORDS SUMMARY | 2022-06-04 10:00 | XMS_ITS | Encounter Summary ---
:1990 Author Organization [place] Address [facility] [place] [address] Care Team Providers Name Role Phone Blank Lemos MD Primary Care Provider Blank Lemos MD Unavailable Kathleen Lacy CNM Unavailable Reason for Visit Reason Onset Date Comments Palpitations 07/09/2020 Encounter Details Date Type Department Care Team Description 07/09/2020 Telephone [facility] [place] Soledad sampson CNM Pal[facility]ations [facility] [place] [address] [place] [address] [address] [place] [address] [phone] Social History Tobacco Use Types Packs/Day Years [...] with No / Unsure 07/09/2020 8:25 AM MACHINE STRIPER someone who was confirmed or suspected to have Coronavirus / COVID-19? documented as of this encounter Miscellaneous Notes Telephone Encounter - Soledad Jones CNM - 07/09/2020 6:27 PM CST Pt paged concert promoter YARELI with reports of very fast and irregular heart beat for the past hour. Reportsit started spontaneously and hasn't subsided despite rest. Pt audibly short of breath while talking over the phone although able to speak in full sentences. Instructed to go to ER for evaluation. Pt voiced understanding. Britney Jones CNM 07/09/2020 6:28 PM INE STRIPER documented in this encounter Plan of Treatment Not on filedocumented as of this encounter Visit Diagnoses Not on filedocumented in this encounter Additional Health Concerns Assessment Noted Time PHQ-9 Depression Total Score: 10 02/02/2020 8:23 AM CD T documented as of this encounter Care Teams Tacking Machine Operator Relationship Specialty Start Date End Date Blank Lemos MD PCP - General Internal Medicine 04/22/18 [address] [facility] [place] [address] Blank Lemos MD Assigned PCP 04/25/18 [address] [facility] [place] [address] Kathleen Lacy CNM Assigned OBGYN Provider 06/01/20 11/23/21 [address] [place] [address] documented as of this encounter
--- OUTSIDE RECORDS SUMMARY | 2022-06-04 10:00 | XMS_ITS | Encounter Summary ---
:1990 Author Organization [place] Address [facility] [place] [address] Care Team Providers Name Role Phone Blank Lemos MD Primary Care Provider Blank Lemos MD Unavailable Kathleen Lacy CNM Unavailable Reason for Visit Reason Onset Date Comments Appointment 08/27/2020 need to schedule f/u Encounter Details Date Type Department Care Team Description 08/27/2020 Telephone [facility] Blank Lemosca nt (need to Clinic [place] MD schedule f/u ) [address] [facility] [address] [place] [address] [place] [address] [phone] Social History Tobacco Use Types Packs/Day Years [...] with No / Unsure 09/28/2020 8:47 AM PRODUCTION WELDING SUPERVISOR someone who was confirmed or suspected to have Coronavirus / COVID-19? documented as of this encounter Miscellaneous Notes Telephone Encounter - Nahed Carrillo MA - 10/08/2020 10:05 AM CST See below; closing encounter. VITALY ALEJANDRO MA on 10/08/2020 at 10:05 AM UCTION WELDING SUPERVISOR Telephone Encounter - Melodie Curiel - 08/29/2020 12:18 PM CST Sent [employer] message that patient has appt for a physical in December with Dr. Lemos. UCTION WELDING SUPERVISOR Telephone Encounter - Nahed Carrillo MA - 08/27/2020 2:[address] Lemos: Schedule follow up physical in November/December. I left message for patient to return call. VITALY ALEJANDRO MA on 08/27/2020 at 2:28 PM UCTION WELDING SUPERVISOR documented in this encounter Plan of Treatment Not on filedocumented as of this encounter Visit Diagnoses Not on filedocumented in this encounter Additional Health Concerns Assessment Noted Time PHQ-9 Depression Total Score: 5 12/06/2020 7:02 AM CDT documented as of this encounter Care Teams Health Care Administrator Relationship Specialty Start Date End Date Blank Lemos MD PCP - General Internal Medicine 04/22/18 [address] [facility] [place] [phone] Blank Lemos MD Assigned PCP 04/25/18 [address] [facility] [place] [phone] Kathleen Lacy CNM Assigned OBGYN Provider 06/01/20 11/23/21 [place] [address] documented as of this encounter
--- OUTSIDE RECORDS SUMMARY | 2022-06-04 10:00 | XMS_ITS | Encounter Summary ---
:1990 Author Organization [place] Address [facility] [place] [address] Care Team Providers Name Role Phone Blank Lemos MD Primary Care Provider Blank Lemos MD Unavailable Kathleen Lacy CNM Unavailable Reason for Visit Reason Comments Shortness of Breath Tachycardia Encounter Details Date Type Department Care Team Description 07/09/2020 Emergency [facility] Chilango Lentz MD [facility] [address] [place], [place] [address] Panic attack; [facility] Emergency Dep t Avelino Weinstein MD [facility] [address] [place], [place] [phone] 28 weeks gestation of [address] [place] [id number] Social History Tobacco Use Types Packs/Day Years [...] with No / Unsure 07/09/2020 7:18 PM AUTOMATIC CLIPPER AND STRIPPER someone who was confirmed or suspected to have Coronavirus / COVID-19? documented as of this encounter Last Filed Vital Signs Vital Sign Reading Time Taken Comments Blood Pressure 154/94 07/09/2020 7:19 PM AUTOMATIC CLIPPER AND STRIPPER Pulse 90 07/09/2020 7:19 PM AUTOMATIC CLIPPER AND STRIPPER Temperature 36.4 ??C (97.6 ??F) 07/09/2020 7:19 PM AUTOMATIC CLIPPER AND STRIPPER Respiratory Rate 16 07/09/2020 7:19 PM AUTOMATIC CLIPPER AND STRIPPER Oxygen Saturation 99% 07/09/2020 7:19 PM AUTOMATIC CLIPPER AND STRIPPER Inhaled Oxygen Concentration - - Weight - - Height - - Body Mass Index - - documented in this encounter Discharge Instructions AttachmentsThe following attachments cannot be sent through Care Everywhere. Panic Attack (Canadian)documented in this encounter Medications at Time of [...] 1800 this evening. She spoke with her licensed and certified midwife who thought she sounded SOB and should come to the ER for evaluation. Did call OB charge who wants patient to be seen in the ER. MATIC CLIPPER AND STRIPPER Avelino Weinstein MD - 07/09/2020 7:14 PM CST History Chief Complaint: Shortness of Breath and Tachycardia KEARA Turner is a 30 year old female who is 28 weeks (G1) with a history of anxiety and panic attacks who presents with shortness of breath and tachycardia. The patient states that she went to picker box operator her routine prescriptions at the store and [...] sinus rhythm Normal ECG Rate 75 bpm. ME interval 150 ms. QRS duration 74 ms. [...] observations and the provider's statements to me. [facility] EMERGENCY DEPT Avelino Weinstein MD 07/10/20 0001 MATIC CLIPPER AND STRIPPER documented in this encounter Plan of Treatment Not on filedocumented as of this encounter Procedures Procedure Name Priority Date/Time Associated Comments Diagnosis CBC WITH PLATELETS & STAT 07/09/2020 7:21 PM R esults for this DIFFERENTIAL AUTOMATIC CLIPPER AND STRIPPER procedure are i n the results section. TROPONIN I STAT 07/09/2020 7:21 PM Results f or this AUTOMATIC CLIPPER AND STRIPPER procedure are i n the results section. BASIC METABOLIC PANEL STAT 07/09/2020 7:21 PM Results for this AUTOMATIC CLIPPER AND STRIPPER procedure are i n the results section. EKG 12-LEAD, TRACING STAT 07/09/2020 7:19 PM R esults for this ONLY AUTOMATIC CLIPPER AND STRIPPER procedure are i n the results section. documented in this encounter Results (ABNORMAL) CBC with platelets differential (07/09/2020 7:21 PM [facility]) [facility] Method Time Signature WBC 14.3 (H) 4.0 - 07/09/2020 [facility] 11.0 7:38 PM [facility] 10e9/L HOSPITAL RBC Count 3.86 3.8 - 5.2 07/09/2020 [facility] 10e12/L 7:38 PM [facility] Hemoglobin 12.5 11.7 - 07/09/2020 [facility] 15.7 g/dL 7:38 PM [facility] Hematocrit 37.7 35.0 - 07/09/2020 [facility] 47.0 % 7:38 PM [facility] MCV 98 78 - 100 07/09/2020 [facility] fl 7:38 PM [facility] MCH 32.4 26.5 - 07/09/2020 [facility] 33.0 pg 7:38 PM [facility] MCHC 33.2 31.5 - 07/09/2020 [facility] 36.5 g/dL 7:38 PM [facility] RDW 15.1 (H) 10.0 - 07/09/2020 [facility] 15.0 % 7:38 PM [facility] Platelet Count 328 150 - 450 07/09/2020 [facility] 10e9/L 7:38 PM [facility] Diff Method Automated 07/09/2020 [facility] Method 7:38 PM [facility] % Neutrophils 71.2 % 07/09/2020 [facility] 7:38 PM [facility] % Lymphocytes 22.8 % 07/09/2020 [facility] 7:38 PM [facility] % Monocytes 3.8 % 07/09/2020 [facility] 7:38 PM [facility] % Eosinophils 1.4 % 07/09/2020 [facility] 7:38 PM [facility] % Basophils 0.2 % 07/09/2020 [facility] 7:38 PM [facility] % Immature 0.6 % 07/09/2020 [facility] Granulocytes 7:38 PM [facility] Nucleated RBCs 0 0 /100 07/09/2020 [facility] 7:38 PM [facility] Absolute 10.2 (H) 1.6 - 8.3 07/09/2020 [facility] Neutrophil 10e9/L 7:38 PM [facility] Absolute 3.3 0.8 - 5.3 07/09/2020 [facility] Lymphocytes 10e9/L 7:38 PM [facility] Absolute 0.5 0.0 - 1.3 07/09/2020 [facility] Monocytes 10e9/L 7:38 PM [facility] Absolute 0.2 0.0 - 0.7 07/09/2020 [facility] Eosinophils 10e9/L 7:38 PM [facility] Absolute 0.0 0.0 - 0.2 07/09/2020 [facility] Basophils 10e9/L 7:38 PM [facility] Abs Immature 0.1 0 - 0.4 07/09/2020 [facility] Granulocytes 10e9/L 7:38 PM [facility] Absolute 0.0 07/09/2020 [facility] Nucleated RBC 7:38 PM [facility] Specimen Anatomical Collection Method Collection Time Receive d Time (Source) Location / / Volume Laterality Blood specimen 07/09/2020 7:21 PM 020 7:34 (specimen) AUTOMATIC CLIPPER AND STRIPPER PM AUTOMATIC CLIPPER AND STRIPPER Chilango Lentz MD LAB - BLOOD ORDERABLES Performing Organization Address City/State/ZIP Code Phon e Number [place] [address] [place] [address] [phone] Troponin I (07/09/2020 7:21 PM AUTOMATIC CLIPPER AND STRIPPER) athologist Signature Troponin I ES <0.015 0.000 - 07/09/2020 [facility] 0.045 ug/L 8:14 PM [facility] Comment: The 99th percentile for upper reference range is 0.045 ug/L. ??Troponin values in the range of 0.045 - 0.120 ug/L may b e associated with risks of adverse clinical events. Specimen Anatomical Collection Method Collection Time Receive d Time (Source) Location / / Volume Laterality Blood specimen 07/09/2020 7:21 PM 020 7:34 (specimen) AUTOMATIC CLIPPER AND STRIPPER PM AUTOMATIC CLIPPER AND STRIPPER Chilango Lentz MD LAB - BLOOD ORDERABLES Performing Organization Address City/State/ZIP Code Phon e Number M [facility] [address] [place], [place] [address] [facility] [address] [place], [place] [address] [phone] (ABNORMAL) Basic metabolic panel (07/09/2020 7:21 PM [facility]) athologist Signature Sodium 138 133 - 144 07/09/2020 [place] mmol/L 8:02 PM [facility] Potassium 3.3 (L) 3.4 - 5.3 07/09/2020 [facility] mmol/L 8:02 PM [facility] Chloride 106 94 - 109 07/09/2020 [facility] mmol/L 8:02 PM [facility] Carbon Dioxide 25 20 - 32 07/09/2020 [facility] mmol/L 8:09 PM [facility] Anion Gap 7 3 - 14 07/09/2020 [place] mmol/L 8:09 PM [facility] Glucose 117 (H) 70 - 99 07/09/2020 [place] mg/dL 8:09 PM [facility] Urea Nitrogen 4 (L) 7 - 30 07/09/2020 [facility] mg/dL 8:09 PM [facility] Creatinine 0.62 0.52 - 07/09/2020 [facility] 1.04 mg/dL 8:09 PM [facility] GFR Estimate >90 >60 07/09/2020 [facility] mL/min/{1. 8:09 PM [facility] 73_m2} HOSPITAL Comment: Non GFR Calc Starting 07/27/2018, serum creatinine ba sed estimated GFR (eGFR) will be calculated using the Chronic Kidney Dise [facility] Epidemiology Collaboration (CKD-EPI) equation. GFR Estimate If >90 >60 mL/min/{1.73_m2} 07/09/2020 8: 09 PM [facility] Comment: GFR Calc Starting 07/27/2018, serum creatinine ba sed estimated GFR (eGFR) will be calculated using the Chronic Kidney Dise [facility] Epidemiology Collaboration (CKD-EPI) equation. Calcium 9.3 8.5 - 10.1 mg/dL 07/09/2020 8:09 PM [facility] Specimen Anatomical Collection Method Collection Time Receive d Time (Source) Location / / Volume Laterality Blood specimen 07/09/2020 7:21 PM 020 7:34 (specimen) AUTOMATIC CLIPPER AND STRIPPER PM AUTOMATIC CLIPPER AND STRIPPER Chilango Lentz MD LAB - BLOOD ORDERABLES Performing Organization Address City/State/ZIP Code Phon e Number [facility] [address] [place] [address] [facility] [address] [place], [place] [address], [facility] [phone] [facility] [address] [place] [address], [facility] [phone] [facility] EKG 12-lead, tracing only (07/09/2020 7:19 PM AUTOMATIC CLIPPER AND STRIPPER) [facility] Method Time Signature Interpretation ECG Click View RADIOLOGY Image link RESULTS to view waveform and result Specimen (Source) Anatomical Collection Method Collection Time Re ceived Time Location / / Volume Laterality 07/09/2020 7:19 PM AUTOMATIC CLIPPER AND STRIPPER Chilango Lentz MD ECG ORDERABLES Performing Organization Address City/State/ZIP Code Phon e Number RADIOLOGY RESULTS documented in this encounter Visit Diagnoses Diagnosis Panic attack Panic disorder without agoraphobia 28 weeks gestation of state, incidental documented in this encounter Additional Health Concerns Assessment Noted Time PHQ-9 Depression Total Score: 10 02/02/2020 8:23 AM CD T documented as of this encounter Care Teams Tester Waste Disposal Leakage Relationship Specialty Start Date End Date Blank Lemos MD PCP - General Internal Medicine 04/22/[address] [place] [address] [place] [phone] Blank Lemos MD Assigned PCP 04/25/[address] [place] [address] [place] [address] Kathleen Lacy CNM Assigned OBGYN Provider 06/01/20 11/23/21 [address] [place] [address] documented as of this encounter
--- OUTSIDE RECORDS SUMMARY | 2022-06-04 10:00 | XMS_ITS | Encounter Summary ---
:1990 Author Organization [place] Address [address] [place] [address] Care Team Providers Name Role Phone Blank [...] with No / Unsure 07/23/2020 1:56 PM SHERIFF DETECTIVE someone who was confirmed or suspected to have Coronavirus / COVID-19? documented as of this encounter Plan of Treatment Not on filedocumented as of this encounter Visit Diagnoses Not on filedocumented in this encounter Additional Health Concerns Assessment Noted Time PHQ-9 Depression Total Score: 10 02/02/2020 8:23 AM CD T documented as of this encounter Care Teams Executive Candidate Developer Relationship Specialty Start Date End Date Blank Lemos MD PCP - General Internal Medicine 04/22/[address] [place] [address] [place] [phone] Blank Lemos MD Assigned PCP 04/25/[address] [place] [address] [place] [address] Kathleen Lacy CNM Assigned OBGYN Provider 06/01/20 11/23/21 [address] [place] [id number] documented as of this encounter
--- OUTSIDE RECORDS SUMMARY | 2022-06-04 10:00 | XMS_ITS | Encounter Summary ---
:1990 Author Organization [place] Address [facility] [place] [address] Care Team Providers Name Role Phone Blank Lemos MD Primary Care Provider Blank Lemos MD Unavailable Kathleen Lacy CNM Unavailable Reason for Visit Reason Comments Care Encounter Details Date Type Department Care Team Description 07/23/[address] [facility] Kathleen Lacy Enco unter for supervision of normal first in third trimester (Primary Dx); [facility] CNM Anxiety during in second trime ster, antepartum [place] [address] [place], [place] [address] [address] [place], [place] [phone] [address] (Work) [phone] Social History Tobacco Use Types Packs/Day Years [...] with No / Unsure 07/23/2020 1:56 PM SNAG GRINDER someone who was confirmed or suspected to have Coronavirus / COVID-19? documented as of this encounter Last Filed Vital Signs Vital Sign Reading Time Taken Comments Blood Pressure 118/72 07/23/2020 2:00 PM SNAG GRINDER Pulse - - Temperature - - Respiratory Rate - - Oxygen Saturation - - Inhaled Oxygen Concentration - - Weight 107.5 kg (237 lb) 07/23/2020 2:00 PM SNAG GRINDER Height - - Body Mass Index 41.98 04/09/2020 1:36 PM CDT documented in this encounter Patient Instructions Patient InstructionsKathleen Lacy CNM - 07/23/2020 2:00 PM CST [email or web address] Weeks 27 thru 32 [...] since the end of the first trimester. GRINDER documented in this encounter Progress Notes Kathleen [...] clinic 2 weeks Kathleen Lacy APRN, CNM GRINDER documented in this encounter Nursing Notes Gonzalez [...] Pt. has never smoked. Gonzalez Mitchell MA GRINDER documented in this encounter Plan of Treatment [...] documented as of this encounter Care Teams Steel Analyst Relationship Specialty Start Date End Date Blank Lemos MD PCP - General Internal Medicine 04/22/[address] [place] [address] [place] [phone] Blank Lemos MD Assigned PCP 04/25/[address] [place] [address] [place] [phone] Kathleen Lacy CNM Assigned OBGYN Provider 06/01/20 11/23/21 [address] [place] [address] documented as of this encounter
--- OUTSIDE RECORDS SUMMARY | 2022-06-04 10:00 | XMS_ITS | Encounter Summary ---
:1990 Author Organization [place] Address [address] [place] [address] Care Team Providers Name Role Phone Blank [...] with No / Unsure 09/10/2020 8:39 AM CARD BRUSHER someone who was confirmed or suspected to have Coronavirus / COVID-19? documented as of this encounter Plan of Treatment Not on filedocumented as of this encounter Visit Diagnoses Not on filedocumented in this encounter Additional Health Concerns Assessment Noted Time PHQ-9 Depression Total Score: 5 12/06/2020 7:02 AM CDT documented as of this encounter Care Teams Pairer Relationship Specialty Start Date End Date Blank Lemos MD PCP - General Internal Medicine 04/22/[address] [place] [address] [place] [phone] Blank Lemos MD Assigned PCP 04/25/[address] [place] [address] [place] [phone] Kathleen Lacy CNM Assigned OBGYN Provider 06/01/20 11/23/21 [address] [place] [id number] documented as of this encounter
--- OUTSIDE RECORDS SUMMARY | 2022-06-04 10:00 | XMS_ITS | Encounter Summary ---
:1990 Author Organization [place] Address [address] [place] [address] Care Team Providers Name Role Phone Blank Lemos MD Primary Care Provider Balnk Lemos MD Unavailable Kathleen Lacy CNM Unavailable [...] with No / Unsure 06/18/2020 2:11 PM DEMONSTRATOR KNITTING someone who was confirmed or suspected to have Coronavirus / COVID-19? documented as of this encounter Plan of Treatment Not on filedocumented as of this encounter Visit Diagnoses Not on filedocumented in this encounter Additional Health Concerns Assessment Noted Time PHQ-9 Depression Total Score: 10 02/02/2020 8:23 AM CD T documented as of this encounter Care Teams Limousine And Hearse Upholsterer Relationship Specialty Start Date End Date Blank Lemos MD PCP - General Internal Medicine 04/22/[address] [place] [address] [place] [phone] Blank Lemos MD Assigned PCP 04/25/[address] [place] [address] [place] [phone] Kathleen Lacy CNM Assigned OBGYN Provider 06/01/20 11/23/21 [address] [place] [address] documented as of this encounter
--- OUTSIDE RECORDS SUMMARY | 2022-06-04 10:00 | XMS_ITS | Encounter Summary ---
:1990 Author Organization [place] Address [address] [place] [address] Care Team Providers Name Role Phone Blank [...] documented as of this encounter Care Teams Mainspring Winder And Oiler Relationship Specialty Start Date End Date Blank Lemos MD PCP - General Internal Medicine 04/22/[address] [place] [address] [place] R[place] [phone] Blank Lemos MD Assigned PCP 04/25/[address] [place] [address] [place] [id number] documented as of this encounter
--- OUTSIDE RECORDS SUMMARY | 2022-06-04 10:00 | XMS_ITS | Encounter Summary ---
:1990 Author Organization [place] Address [address] [place] [address] Care Team Providers Name Role Phone Blank Lemos MD Primary Care Provider Blank Lemos MD Unavailable Kathleen Lacy CNM Unavailable Encounter Details Date Type Department Care Team Description 08/16/2020 Orders Only M [facility] Taylor Gonsales RN [facility] [address] [place] [address] [address] [place] [address] Social History Tobacco Use Types [...] with No / Unsure 08/06/2020 1:53 PM CHECK CASHIER someone who was confirmed or suspected to have Coronavirus / COVID-19? documented as of this encounter Plan of Treatment Not on filedocumented as of this encounter Procedures Procedure Name Priority Date/Time Associated Diagnosis Comme nts COLPOSCOPY Routine 04/09/2020 12:00 AM CDT documented in this encounter Results COLPOSCOPY (04/09/2020 12:00 AM CDT) Sharita Frisa MD PROCEDURE/MINOR SURGICAL ORD ERABLES documented in this encounter Visit Diagnoses Not on filedocumented in this encounter Additional Health Concerns Assessment Noted Time PHQ-9 Depression Total Score: 10 02/02/2020 8:23 AM CD T documented as of this encounter Care Teams Street Worker Relationship Specialty Start Date End Date Blank Lemos MD PCP - General Internal Medicine 04/22/[address] [place] [address] [place] [phone] Blank Lemos MD Assigned PCP 04/25/[address] [place] [address] [place] [phone] Kathleen Lacy CNM Assigned OBGYN Provider 06/01/20 11/23/21 [address] [place] [address] documented as of this encounter
--- OUTSIDE RECORDS SUMMARY | 2022-06-04 10:00 | XMS_ITS | Encounter Summary ---
:1990 Author Organization [place] Address [address] [place] [address] Care Team Providers Name Role Phone Blank [...] with No / Unsure 07/09/2020 7:18 PM CLINICAL MENTAL HEALTH COUNSELOR someone who was confirmed or suspected to have Coronavirus / COVID-19? documented as of this encounter Plan of Treatment Not on filedocumented as of this encounter Visit Diagnoses Not on filedocumented in this encounter Additional Health Concerns Assessment Noted Time PHQ-9 Depression Total Score: 10 02/02/2020 8:23 AM CD T documented as of this encounter Care Teams Heater Engineer Helper Relationship Specialty Start Date End Date Blank Lemos MD PCP - General Internal Medicine 04/22/[address] [place] [address] [place] R[place] [phone] Blank Lemos MD Assigned PCP 04/25/[address] [place] [address] [place] [phone] Kathleen Lacy CNM Assigned OBGYN Provider 06/01/20 11/23/21 [address] [place] [address] documented as of this encounter
--- OUTSIDE RECORDS SUMMARY | 2022-06-04 10:00 | XMS_ITS | Encounter Summary ---
:1990 Author Organization [place] Address [address] [place] [address] Care Team Providers Name Role Phone Blank [...] documented as of this encounter Care Teams Glass Designer Relationship Specialty Start Date End Date Blank Lemos MD PCP - General Internal Medicine 04/22/[address] [place] [address] KISHAN RENO [phone] Blank Lemos MD Assigned PCP 04/25/[address] [place] [address] KISHAN RENO [phone] documented as of this encounter
--- OUTSIDE RECORDS SUMMARY | 2022-06-04 10:00 | XMS_ITS | Encounter Summary ---
:1990 Author Organization [place] Address [facility] [place] [address] Care Team Providers Name Role Phone Blank [...] Weeks Follow Up [address] [place] [address] Referral ID Status Reason Start Date Expiration Date Visits Requ ested Visits Authorized [id number] Closed 08/20/2020 08/20/2021 1 1 ON PICTURE CAMERA OPERATOR Reason for Visit Reason Comments Care 34w 4d, c/o leg cramps and r estless legs, also period like cramps Encounter Details Date Type Department Care Team Description 08/20/2020 Office [facility] Chapo Cat er for supervision of normal first in third trimester (Primary Dx); [facility] YARELI Rowe Pelvic pain affecting in third trimester, antepartum; [place] [address] Excessive weight gain during in third trimester [address] [place], [place] [address] [address] [place], [place] [phone] [address] (Work) [phone] Social History Tobacco Use Types Packs/Day Years [...] with No / Unsure 08/20/2020 1:54 PM MOTION PICTURE CAMERA OPERATOR someone who was confirmed or suspected to have Coronavirus / COVID-19? documented as of this encounter Last Filed Vital Signs Vital Sign Reading Time Taken Comments Blood Pressure 122/70 08/20/2020 1:58 PM MOTION PICTURE CAMERA OPERATOR Pulse - - Temperature - - Respiratory Rate - - Oxygen Saturation - - Inhaled Oxygen Concentration - - Weight 112.5 kg (248 lb) 08/20/2020 1:58 PM MOTION PICTURE CAMERA OPERATOR Height - - Body Mass Index 43.93 [...] H. Octavia Jones CNM 08/20/2020 4:56 PM ON PICTURE CAMERA OPERATOR documented in this encounter Nursing Notes Luz [...] HM Due: NONE Luz Maria Abreu CMA ON PICTURE CAMERA OPERATOR documented in this encounter Plan of Treatment Not on filedocumented as of this encounter Procedures Procedure Name Priority Date/Time Associated Comments Diagnosis UA WITH MICROSCOPIC Routine 08/20/2020 2:30 PM Pelvic pain Re sults for this AND REFLEX TO CULTURE MOTION PICTURE CAMERA OPERATOR affecting procedure are in in third trimester, the resu lts antepartum section. URINE CULTURE Routine 08/20/2020 2:30 PM Pelvic pain Results for this MOTION PICTURE CAMERA OPERATOR affecting procedur e are in in third trimester, the resu lts antepartum section. documented in this encounter Results US OB >14 Weeks Follow Up (09/03/2020 1:47 PM MOTION PICTURE CAMERA OPERATOR) Anatomical Region Laterality Modality Abdomen/Pelvis Ultrasound Specimen (Source) Anatomical Location Collection Method / Collectio n Time Received Time / Laterality Volume Impressions 09/03/2020 4:32 PM MOTION PICTURE CAMERA OPERATOR ? [place] Gestation. ?? presentation: Cephalic Placenta: [...] Kori Booker MD FAC Obstetrics and Gynecology [facility] Narrative 09/03/2020 4:32 PM MOTION PICTURE CAMERA OPERATOR [facility] Obstetrics and Gynecology ?? ULTRASOUND - [...] Urine Culture Aerobic Bacterial (08/20/2020 2:30 PM MOTION PICTURE CAMERA OPERATOR) Component Value Ref Test Analysis Performed At [facility] gist Range Method Time Signature Specimen Midstream Urine INFECTIOUS Description DISEASES DIAGNOSTIC LABORATORY, [facility] Special Specimen received 08/20/2020 INFECTIOUS Requests in preservative 6:49 PM MOTION PICTURE CAMERA OPERATOR DISEASES DIAGNOSTIC LABORATORY, [facility] Culture Micro <10,000 colonies/mL 08/21/2020 INFEC TIOUS urogenital andre 4:51 PM MOTION PICTURE CAMERA OPERATOR DISEASES Susceptibility testing not routinely done DIAGNOSTIC LABORATORY, [facility] Specimen (Source) Anatomical Collection Method Collection Time Re ceived Time Location / / Volume Laterality Examination of 08/20/2020 2:30 08/20/2020 2:44 midstream urine PM MOTION PICTURE CAMERA OPERATOR PM MOTION PICTURE CAMERA OPERATOR specimen (procedure) Soledad Jones CNM LAB - MICRO GENERAL ORDERABL ES Performing Organization Address City/State/ZIP Code Phon e Number INFECTIOUS DISEASES DIAGNOSTIC [address] [facility], [address] [address] LABORATORY, [facility] (ABNORMAL) UA with Microscopic reflex to Culture (08/20/2020 2:30 PM MOTION PICTURE CAMERA OPERATOR) Patholo gist Method Time Signature Color Urine Yellow 08/20/2020 [facility] 2:56 PM MOTION PICTURE CAMERA OPERATOR [facility] [place] [place] Appearance Urine Clear 08/20/2020 [facility] 2:56 PM MOTION PICTURE CAMERA OPERATOR [facility] Glucose Urine Negative NEG^Negat 08/20/2020 [facility] yakelin mg/dL 2:56 PM MOTION PICTURE CAMERA OPERATOR [facility] Bilirubin Urine Negative NEG^Negat 08/20/2020 [facility] yakelin 2:56 PM MOTION PICTURE CAMERA OPERATOR [facility] Ketones Urine Negative NEG^Negat 08/20/2020 [place] yakelin mg/dL 2:[address] [facility] Specific [place] 1.015 1.003 - 08/20/2020 [place] Urine 1.035 2:[address] [facility] pH Urine 7.0 5.0 - 7.0 08/20/2020 [place] pH 2:[address] [facility] Protein Albumin Negative NEG^Negat 08/20/2020 [place] Urine yakelin mg/dL 2:[address] [facility] Urobilinogen 0.2 0.2 - 1.0 08/20/2020 [place] Urine EU/dL 2:56 PM MOTION PICTURE CAMERA OPERATOR [facility] Nitrite Urine Negative NEG^Negat 08/20/2020 [place] yakelin 2:[address] [facility] Blood Urine Negative NEG^Negat 08/20/2020 [place] yakelin 2:[address] [facility] Leukocyte Trace (A) NEG^Negat 08/20/2020 [place] Esterase Urine yakelin 2:[address] [facility] Source Midstream 08/20/2020 [place] Urine 2:[address] [facility] WBC Urine 5-10 (A) OTO5^0 - 08/20/2020 [place] 5 /HPF 2:[address] [facility] RBC Urine O - 2 OTO2^O - 08/20/2020 [place] 2 /HPF 2:[address] [facility] Squamous Few FEW^Few 08/20/2020 [place] Epithelial /LPF /LPF 2:56 PM [facility] Urine [place] Bacteria Urine Moderate (A) NEG^Negat 08/20/2020 [facility] yakelin /HPF 2:[address] [facility] Amorphous Moderate (A) NEG^Negat 08/20/2020 [place] Crystals yakelin /HPF 2:[address] [facility] Specimen (Source) Anatomical Collection Method Collection Time Re ceived Time Location / / Volume Laterality Examination of 08/20/2020 2:30 08/20/2020 2:43 midstream urine PM MOTION PICTURE CAMERA OPERATOR PM MOTION PICTURE CAMERA OPERATOR specimen (procedure) Soledad Jones CNM LAB - URINE ORDERABLES Performing Organization Address City/State/ZIP Code Phon e Number [facility] [address] [place], [place] [address] [address] documented in [...] documented as of this encounter Care Teams Power Press Supervisor Relationship Specialty Start Date End Date Blank Lemos MD PCP - General Internal Medicine 04/22/[address] [place] [address] KISHAN RENO [phone] lBank Lemos MD Assigned PCP 04/25/[address] [place] [address] KISHAN RENO [phone] Kathleen Lacy CNM Assigned OBGYN Provider 06/01/20 11/23/21 [place] [address] documented as of this encounter
--- OUTSIDE RECORDS SUMMARY | 2022-06-04 10:00 | XMS_ITS | Encounter Summary ---
:1990 Author Organization [place] Address [address] [place] [address] Care Team Providers Name Role Phone Blank [...] with No / Unsure 08/20/2020 1:54 PM WAREHOUSE SELECTOR someone who was confirmed or suspected to have Coronavirus / COVID-19? documented as of this encounter Plan of Treatment Not on filedocumented as of this encounter Visit Diagnoses Not on filedocumented in this encounter Additional Health Concerns Assessment Noted Time PHQ-9 Depression Total Score: 10 02/02/2020 8:23 AM CD T documented as of this encounter Care Teams Medical Records Library Professor Relationship Specialty Start Date End Date Blank Lemos MD PCP - General Internal Medicine 04/22/[address] [place] [address] KISHAN RENO [phone] Blank Lemos MD Assigned PCP 04/25/[address] [place] [address] KISHAN RENO [phone] Kathleen Lacy CNM Assigned OBGYN Provider 06/01/20 11/23/21 [address] [place] [id number] documented as of this encounter
--- OUTSIDE RECORDS SUMMARY | 2022-06-04 10:00 | XMS_ITS | Encounter Summary ---
:1988 Author Organization [place] Address [facility] [place] [address] Care Team Providers Name Role Phone Blank Lemos MD Primary Care Provider Blank Lemos MD Unavailable Reason for Visit Reason Comments Ultrasound L2- subopt anatomy on outsid e screen Encounter Details Date Type Department Care Team Description 05/11/2020 Office Visit [facility] Stevan Jones nn, CN [address] [place] [address] related Maternal Ana Danielle MD [address] [place], [place] [phone] condition, antepartum [facility] Center (Primary Dx) [place] [address] [facility] [address] [place] [address] Social History Tobacco Use Types [...] as of this encounter Care Teams Sales Professional Relationship Specialty Start Date End Date Blank Lemos MD PCP - General Internal Medicine 04/22/[address] [place] [address] KISHAN RENO [phone] Blank Lemos MD Assigned PCP 04/25/[address] [place] [address] KISHAN RENO [phone] documented as of this encounter
--- OUTSIDE RECORDS SUMMARY | 2022-06-04 10:00 | XMS_ITS | Encounter Summary ---
:1990 Author Organization [place] Address [facility] [place] [address] Care Team Providers Name Role Phone Blank Lemos MD Primary Care Provider Blank Lemos MD Unavailable Kathleen Lacy CN Unavailable Reason for Visit Reason Comments Care 36w 4d, discuss delivery prince n management options and restrictions Encounter Details Date Type Department Care Team Description 09/03/2020 Office [facility] EugenejodieStevan nnah, CNM [address] [place], [place] [address] Encounter for Visit [facility] Faiza Reyes, CNM [address] [place], [place] [phone] supervision of Merna normal first [address] in th [place] trimester (Primary [address] Dx) [place] [phone] Social History Tobacco Use Types Packs/Day Years [...] with No / Unsure 09/03/2020 1:45 PM LUG BREAKER AND WIRE PULLER someone who was confirmed or suspected to have Coronavirus / COVID-19? documented as of this encounter Last Filed Vital Signs Vital Sign Reading Time Taken Comments Blood Pressure 116/76 09/03/2020 1:48 PM LUG BREAKER AND WIRE PULLER Pulse - - Temperature - - Respiratory Rate - - Oxygen Saturation - - Inhaled Oxygen Concentration - - Weight 113.4 kg (250 lb) 09/03/2020 1:48 PM LUG BREAKER AND WIRE PULLER Height - - Body Mass Index 44.29 [...] symptoms if you are positive. ?? Your cpc will discuss your results with you and make recommendations for treatment. Labor Instructions for Industrial Real Estate Agent Patients When to call: Both during and after office hours call [phone]. There is a Nurse Industrial Real Estate Agent available to take your calls and answer [...] your cervix, and will call us. The cpc turf sales person will come in and be with you when you are in active labor ?? After hours you need to enter the hospital through the emergency room BREAKER AND WIRE PULLER documented in this encounter Progress Notes Faiza [...] clinic 1 weeks Faiza Reyes APRN, CNM BREAKER AND WIRE PULLER documented in this encounter Nursing Notes Luz [...] HM Due: NONE Luz Maria Abreu CMA BREAKER AND WIRE PULLER documented in this encounter Plan of Treatment Not on filedocumented as of this encounter Procedures Procedure Name Priority Date/Time Associated Diagnosis Comme nts GROUP B STREP PCR Routine 09/03/2020 2:00 PM Encounter for Res ults for this LUG BREAKER AND WIRE PULLER supervision of normal proced ure are in first in the resul ts third trimester section. documented in this encounter Results Strep, Group B by PCR (09/03/2020 2:00 PM LUG BREAKER AND WIRE PULLER) [facility] Method Time Signature Group B Strep Vaginal 09/03/2020 [place] PCR Spec [place] Rectal 1:46 PM LUG BREAKER AND WIRE PULLER [facility] Group B Strep Negative NEG^Negat 09/04/2020 [facility] yakelin 2:26 PM LUG BREAKER AND WIRE PULLER [facility] Comment: No GBS DNA detected, presumed negative f or GBS or number of bacteria may be below the limit of detection of the assa y. Assay performed on incubated broth cultu re of specimen using Photometicsid real-time PCR. Specimen Anatomical Collection Method Collection Time Receive d Time (Source) Location / / Volume Laterality Vaginal Rectal 09/03/2020 2:00 PM 021 3:25 LUG BREAKER AND WIRE PULLER PM LUG BREAKER AND WIRE PULLER Faiza Reyes CNM LAB - MICRO GENERAL ORDERABL ES Performing Organization Address City/State/ZIP Code Phon e Number [address] [address] [facility] [address] [place] [address] [address] documented in this encounter Visit Diagnoses Diagnosis Encounter for supervision of normal firs t in third trimester - Primary Supervision of normal first documented in this encounter Additional Health Concerns Assessment Noted Time PHQ-9 Depression Total Score: 5 12/06/2020 7:02 AM CDT documented as of this encounter Care Teams Highway Patrol Pilot Relationship Specialty Start Date End Date Blank Lemos MD PCP - General Internal Medicine 04/22/[address] [place] [address] KISHAN RENO [phone] Blank Lemos MD Assigned PCP 04/25/[address] [place] [address] KISHAN RENO [phone] Kathleen Lacy CNM Assigned OBGYN Provider 06/01/20 11/23/21 [place] [address] documented as of this encounter
--- OUTSIDE RECORDS SUMMARY | 2022-06-04 10:00 | XMS_ITS | Encounter Summary ---
:1988 Author Organization [place] Address [facility] [place] [address] Care Team Providers Name Role Phone Blank Lemos MD Primary Care Provider Blank Lemos MD Unavailable Kathleen Lacy CNM Unavailable Reason for Visit Reason Onset Date Comments Abdominal Pain 08/09/2020 Encounter Details Date Type Department Care Team Description 08/09/2020 Telephone [facility] Women[facility] Ryann poon, Faiza Rodriguez, [facility] [address] [place] [address] [address] [place] [address] [phone] Social History Tobacco Use Types Packs/Day Years [...] with No / Unsure 08/06/2020 1:53 PM CRATE TIER someone who was confirmed or suspected to have Coronavirus / COVID-19? documented as of this encounter Miscellaneous Notes Telephone Encounter - Faiza Reyes CNM - 08/09/2020 8:20 PM CST Patient paged CNM technology methodology consultant with reports of period like cramps earlier today. Now cramping has resolved, but patient :just feels off. Baby active. No vaginal bleeding or leaking or fluid. No other symptoms, fever, nausea or vomiting. Advised patient to try some tylenol, push fluids and rest. Call ifshe begins to feel worse. Encouraged patient to call with any questions or concerns. Faiza Reyes APRN, CNM E TIER documented in this encounter Plan of Treatment Not on filedocumented as of this encounter Visit Diagnoses Not on filedocumented in this encounter Additional Health Concerns Assessment Noted Time PHQ-9 Depression Total Score: 10 02/02/2020 8:23 AM CD T documented as of this encounter Care Teams Batch Unloader Relationship Specialty Start Date End Date Blank Lemos MD PCP - General Internal Medicine 04/22/18 [address] [facility] [place] [phone] Blank Lemos MD Assigned PCP 04/25/18 [address] [facility] K[place]AN R[place] [phone] Lacy, Kathleen A, CNM Assigned OBGYN Provider 06/01/20 11/23/21 [address] [place], [place] [address] documented as of this encounter
--- OUTSIDE RECORDS SUMMARY | 2022-06-04 10:00 | XMS_ITS | Encounter Summary ---
:1990 Author Organization [place] Address [address] [place] [address] Care Team Providers Name Role Phone Blank [...] with No / Unsure 09/03/2020 1:45 PM STEAM AND POWER SUPERVISOR someone who was confirmed or suspected to have Coronavirus / COVID-19? documented as of this encounter Plan of Treatment Not on filedocumented as of this encounter Visit Diagnoses Not on filedocumented in this encounter Additional Health Concerns Assessment Noted Time PHQ-9 Depression Total Score: 5 12/06/2020 7:02 AM CDT documented as of this encounter Care Teams Guest House Manager Relationship Specialty Start Date End Date Blank Lemos MD PCP - General Internal Medicine 04/22/[address] [place] [address] KISHAN RENO [phone] Blank Lemos MD Assigned PCP 04/25/[address] [place] [address] KISHAN RENO [phone] Kathleen Lacy CNM Assigned OBGYN Provider 06/01/20 11/23/21 [address] [place] [id number] documented as of this encounter
--- OUTSIDE RECORDS SUMMARY | 2022-06-04 10:00 | XMS_ITS | Encounter Summary ---
:1990 Author Organization [place] Address [address] [facility] [place] [address] Care Team Providers Name Role Phone Blank Lemos MD Primary Care Provider Blank Lemos MD Unavailable Kathleen LacyM Unavailable Reason for Referral (Routine) - Closed Specialty Diagnoses / Procedures Referred By Contact Refer red To Contact Diagnoses Encounter for supervision of normal first , third trimester Kathy Ingram Procedures TDAP VACCINE (Adacel, Boostrix) [[id number]] GINNY SantosM [address] [address] Referral ID Status Reason Start Date Expiration Date Visits Requ ested Visits Authorized [id number] Closed 07/09/2020 07/09/2021 1 1 CE NURSE Reason for Visit Reason Comments Care 28w 4d GCT and tdap today, q uestions on COVID restrictions, back pain worsening x1-2wks, and hearb urn-vomits with Tums Encounter Details Date Type Department Care Team Description 07/09/[address] [facility] Kathy Davis for supervision of normal first , third trimester (Primary Dx); Visit [facility] Dianna Benitez in third trimester [place] GRILL ATTENDANTZeb DOWNS [address] [place] [address] [facility] [place] [address], [address] [place] [phone] Social History Tobacco Use Types Packs/Day [...] with No / Unsure 07/09/2020 8:25 AM OFFICE NURSE someone who was confirmed or suspected to have Coronavirus / COVID-19? documented as of this encounter Last Filed Vital Signs Vital Sign Reading Time Taken Comments Blood Pressure 124/82 07/09/2020 8:31 AM OFFICE NURSE Pulse - - Temperature - - Respiratory Rate - - Oxygen Saturation - - Inhaled Oxygen Concentration - - Weight 108.4 kg (239 lb) 07/09/2020 8:31 AM OFFICE NURSE Height - - Body Mass Index 42.34 [...] since the end of the first trimester. CE NURSE documented in this encounter Progress Notes Kathy [...] RPR and Titer TDAP VACCINE (Adacel, Boostrix) [[id number]] sucralfate (CARAFATE) 1 GM tablet 2. Heartburn [...] 2 weeks. Kathy Ingram DNP, GINNY, CNM CE NURSE documented in this encounter Nursing Notes Luz [...] HM Due: NONE Luz Maria Abreu CMA CE NURSE documented in this encounter Plan of Treatment Not on filedocumented as of this encounter Procedures Procedure Name Priority Date/Time Associated Diagnosis Comme nts TREPONEMA ABS W Routine 07/09/2020 9:29 AM Encounter for Resul ts for this REFLEX TO RPR AND OFFICE NURSE supervision of ole abarca are in TITER normal first the results , third section. trimester GLUCOSE TOLERANCE Routine 07/09/2020 9:29 AM Encounter for Res ults for this GEST SCREEN 1 HOUR OFFICE NURSE supervision of procedu re are in normal first the results , third section. trimester CBC WITH PLATELETS Routine 07/09/2020 9:29 AM Encounter for Re sults for this OFFICE NURSE supervision of procedure are in normal first the results , third section. trimester documented in this encounter Results Treponema Abs w Reflex to RPR and Titer (07/09/2020 9:29 AM OFFICE NURSE) [facility] Method Time Signature Treponema Nonreactive NR^Nonrea 07/10/2020 [facility] ctive 10:07 AM OFFICE NURSE [facility] Comment: Methodology Change: Test performed on DiaZ2rin Liaison XL by Treponema pallidum Total Antibodies Assay as of . Specimen Anatomical Collection Method Collection Time Receive d Time (Source) Location / / Volume Laterality Blood specimen 07/09/2020 9:29 AM 020 9:30 (specimen) OFFICE NURSE AM OFFICE NURSE Kathy Ingram APRN, CNM LAB - BLOOD [place] Performing Organization Address City/State/ZIP Code Phon e Number [facility] [address] (ABNORMAL) CBC with platelets (07/09/2020 9:29 AM OFFICE NURSE) [facility] Method Time Signature WBC 12.4 (H) 4.0 - 11.0 07/09/2020 [facility] 10e9/L 10:08 AM [facility] RBC Count 3.69 (L) 3.8 - 5.2 07/09/2020 [facility] 10e12/L 10:08 AM [facility] Hemoglobin 11.8 11.7 - 07/09/2020 [facility] 15.7 g/dL 10:08 AM [facility] Hematocrit 36.6 35.0 - 07/09/2020 [facility] 47.0 % 10:08 AM [facility] MCV 99 78 - 100 07/09/2020 [facility] fl 10:08 AM [facility] MCH 32.0 26.5 - 07/09/2020 [facility] 33.0 pg 10:08 AM [facility] MCHC 32.2 31.5 - 07/09/2020 [facility] 36.5 g/dL 10:08 AM [facility] RDW 15.3 (H) 10.0 - 07/09/2020 [place] 15.0 % 10:08 AM [facility] Platelet Count 321 150 - 450 07/09/2020 [place] 10e9/L 10:08 AM [facility] Specimen Anatomical Collection Method Collection Time Receive d Time (Source) Location / / Volume Laterality Blood specimen 07/09/2020 9:29 AM 020 9:30 (specimen) OFFICE NURSE AM OFFICE NURSE Kathy FARMER LAB - BLOOD [place] Performing Organization Address City/[facility]/ZIP Code Phon e Number [facility] [address] [place], [place] [address] [address] Glucose tolerance, gest screen, 1 hour (07/09/2020 9:29 AM OFFICE NURSE) P athologist Signature Glu Gest Screen 105 60 - 129 07/10/2020 [place] 1hr 50g mg/dL 7:25 AM [facility] Specimen Anatomical Collection Method Collection Time Receive d Time (Source) Location / / Volume Laterality Blood specimen 07/09/2020 9:29 AM 020 9:30 (specimen) OFFICE NURSE AM OFFICE NURSE Kathy Ingram APRN, CNM LAB - BLOOD [place] Performing Organization Address City/[facility]/ZIP Code Phon e Number [facility] [address] [address] [place] [address] [address] [address], [facility] [phone] documented in this encounter Visit Diagnoses Diagnosis Encounter for supervision of normal firs t , third trimester - Primary Heartburn during in third trim dewayne documented in this encounter Additional Health Concerns Assessment Noted Time PHQ-9 Depression Total Score: 10 02/02/2020 8:23 AM CD T documented as of this encounter Care Teams Heel Blacker Relationship Specialty Start Date End Date Blank Lemos MD PCP - General Internal Medicine 04/22/[address] [facility] [place], [place] [address] Blank Lemos MD Assigned PCP 04/25/[address] [place], [place] [id number] Kathleen Lacy CNM Assigned OBGYN Provider 06/01/20 11/23/21 [address] [place] [id number] documented as of this encounter
--- OUTSIDE RECORDS SUMMARY | 2022-06-04 10:00 | XMS_ITS | Encounter Summary ---
:1990 Author Organization [place] Address [facility] [place] [address] Care Team Providers Name Role Phone Blank Lemos MD Primary Care Provider Blank Lemos MD Unavailable Kathleen Lacy CNM Unavailable Reason for Visit Reason Comments Care Encounter Details Date Type Department Care Team Description 09/10/2020 Office [facility] Kathleen Lacy, High -risk , third trimester (Primary Dx); [facility] CNM Anxiety during in third trimes ter, antepartum [place] [address] [place], [place] [address] [address] [place], [place] [phone] [address] (Work) [phone] Social History Tobacco Use Types Packs/Day Years [...] with No / Unsure 09/10/2020 8:39 AM PAINTER BARREL someone who was confirmed or suspected to have Coronavirus / COVID-19? documented as of this encounter Last Filed Vital Signs Vital Sign Reading Time Taken Comments Blood Pressure 120/84 09/10/2020 8:42 AM PAINTER BARREL Pulse - - Temperature - - Respiratory Rate - - Oxygen Saturation - - Inhaled Oxygen Concentration - - Weight 113.9 kg (251 lb) 09/10/2020 8:42 AM PAINTER BARREL Height - - Body Mass Index 44.46 [...] swelling in is very normal) If your oil field pumper feels that you are developing preeclampsia, you will have lab tests drawn and will be monitored very closely. If you are experiencing anyof these symptoms, Call Tracy Plascencia [phone] TER BARREL documented in this encounter Progress Notes Kathleen [...] clinic 1 weeks Kathleen Lacy APRN, CNM TER BARREL documented in this encounter Nursing Notes Gonzalez [...] smoking habits. Pt. has never smoked. +FM TER BARREL documented in this encounter Plan of Treatment Not on filedocumented as of this encounter Visit Diagnoses Diagnosis High-risk , third trimester - P rimary Anxiety during in third trimes ter, antepartum documented in this encounter Additional Health Concerns Assessment Noted Time PHQ-9 Depression Total Score: 5 12/06/2020 7:02 AM CDT documented as of this encounter Care Teams Wedding Transportation Driver Relationship Specialty Start Date End Date Blank Lemos MD PCP - General Internal Medicine 04/22/[address] [place] [address] [place] RENO [phone] Blank Lemos MD Assigned PCP 04/25/[address] [place] [address] [place] R[place] [phone] Kathleen Lacy CNM Assigned OBGYN Provider 06/01/20 11/23/21 [place] [address] documented as of this encounter
--- OUTSIDE RECORDS SUMMARY | 2022-06-04 10:00 | XMS_ITS | Encounter Summary ---
:1990 Author Organization [place] Address [address] [place] [address] Care Team Providers Name Role Phone Blank Lemos MD Primary Care Provider Blnak Lemos MD Unavailable Kathleen Lacy CNRadha Unavailable Reason for Visit Reason Comments Care 38w 4d, review restrictions at hospital Encounter Details Date Type Department Care Team Description 09/17/2020 Office [facility] , Visit [facility] YARELI Rowe third trimester [place] [address] (Primary Dx) [address] [place], [place] [address] [address] [place], [place] [phone] [address] (Work) [phone] Social History Tobacco Use Types Packs/Day Years [...] with No / Unsure 09/17/2020 1:55 PM DIRECTOR OF DIGITAL TECHNOLOGY someone who was confirmed or suspected to have Coronavirus / COVID-19? documented as of this encounter Last Filed Vital Signs Vital Sign Reading Time Taken Comments Blood Pressure 124/76 09/17/2020 1:59 PM DIRECTOR OF DIGITAL TECHNOLOGY Pulse - - Temperature - - Respiratory Rate - - Oxygen Saturation - - Inhaled Oxygen Concentration - - Weight 113.4 kg (250 lb) 09/17/2020 1:59 PM DIRECTOR OF DIGITAL TECHNOLOGY Height - - Body Mass Index 44.29 [...] H. Octavia Jones CNM 09/17/2020 2:15 PM CTOR OF DIGITAL TECHNOLOGY documented in this encounter Nursing Notes Luz [...] HM Due: NONE Luz Maria Abreu CMA CTOR OF DIGITAL TECHNOLOGY documented in this encounter Plan of Treatment Not on filedocumented as of this encounter Visit Diagnoses Diagnosis High-risk , third trimester - P rimary documented in this encounter Additional Health Concerns Assessment Noted Time PHQ-9 Depression Total Score: 5 12/06/2020 7:02 AM CDT documented as of this encounter Care Teams Traffic Control Operator Relationship Specialty Start Date End Date Blank Lemos MD PCP - General Internal Medicine 04/22/[address] [place] [address] K[place] R[place] [phone] Blank Lemos MD Assigned PCP 04/25/[address] [place] [address] K[place] RENO [address] Kathleen Lacy, YARELI Assigned OBGYN Provider 06/01/20 11/23/21 [address] [place] [address] documented as of this encounter
--- OUTSIDE RECORDS SUMMARY | 2022-06-04 10:00 | XMS_ITS | Encounter Summary ---
:1990 Author Organization [place] Address [facility] [place] [address] Care Team Providers Name Role Phone Blank Lemos MD Primary Care Provider Blank Lemos MD Unavailable Kathleen Lacy CNRadha Unavailable Anabell Shannon Unavailable Unavailable Reason for Visit Reason Comments Video Visit [phone] Depression Encounter Details Date Type Department Care Team Description 08/27/2020 Virtual Visit [facility] Blank Lemos anxiety disorder; Clinic Dev Camp MD Bipolar I disorder (H) [address] [facility] [address] K[place]AN MÉNDEZ [address] [place] [phone] Social History Tobacco Use [...] with No / Unsure 10/18/2020 2:11 PM REHABILITATION PROGRAM MANAGER someone who was confirmed or suspected [...] Take care, Blank Lemos MD Internal Medicine/Pediatrics [facility] BILITATION PROGRAM MANAGER documented in this encounter Progress Notes Blank Lemos MD - 08/27/2020 1:55 PM CST Rena is a 30 year old who is being evaluated via a billable video visit. How would you like to obtain your AVS? MyChart If the video visit is dropped, the invitation should be resent by: Text to cell phone: [phone] Will anyone else be joining your video [...] Take care, Blank Lemos MD Internal Medicine/Pediatrics [facility] Return in about 3 months (around 11/25/2020) for Routine preventive, with me, in person. Blank Lemos MD [facility] Chase is a 30 year old [...] DEV Platform used for Video Visit: Doximity BILITATION PROGRAM MANAGER documented in this encounter Nursing Notes Nahed Carrillo MA - 08/27/2020 1:55 PM CST Left message for patient to return call to schedule follow up physical in November/December. VITALY ALEJANDRO MA on 08/27/2020 at 2:27 PM BILITATION PROGRAM MANAGER documented in this encounter Plan of Treatment Not on filedocumented as of this encounter Visit Diagnoses Diagnosis Generalized anxiety disorder Bipolar I disorder (H) Bipolar I disorder, most recent episode (or current) unspecified documented in this encounter Additional Health Concerns Assessment Noted Time PHQ-9 Depression Total Score: 5 12/06/2020 7:02 AM CDT documented as of this encounter Care Teams Brick Setter Relationship Specialty Start Date End Date Blank Lemos, PCP - General Internal Medicine 04/22/[address] [place] [address] K[place] RENO [phone] Blank Lemos, Assigned PCP [facility] [place] [address] Kathleen Lacy CNM Assigned OBGYN Provider 06/01/20 11/23/21 [place] [address] Anabell Shannon Personal Advocate & 10/25/20 Liaison (PAL) documented as of this encounter
--- OUTSIDE RECORDS SUMMARY | 2022-06-04 10:00 | XMS_ITS | Encounter Summary ---
:1990 Author Organization [place] Address [facility] [place] [address] Care Team Providers Name Role Phone Blank [...] Weeks Follow Up [address] [place] [address] Referral ID Status Reason Start Date Expiration Date Visits Requ ested Visits Authorized [id number] Closed 08/20/2020 08/20/2021 1 1 Encounter Details Date Type Department Care Team Description 09/03/2020 Ancillary [facility] Robert, Encounter for Procedure [facility] [place] YARELI Rowe supervision of [address] normal f [address] in third [address] [place], [place] [phone] Social History Tobacco Use Types Packs/Day Years [...] with No / Unsure 09/03/2020 1:45 PM REGULATORY ANALYST someone who was confirmed or suspected to have Coronavirus / COVID-19? documented as of this encounter Plan of Treatment Not on filedocumented as of this encounter Procedures Procedure Name Priority Date/Time Associated Diagnosis Comme nts US OB FOLLOW UP >14 Routine 09/03/2020 1:47 PM Encounter for R esults for this WEEKS REGULATORY ANALYST supervision of procedure are in normal first the results in third section. trimester documented in this encounter Results US OB >14 Weeks Follow Up (09/03/2020 1:47 PM REGULATORY ANALYST) Anatomical Region Laterality Modality Abdomen/Pelvis Ultrasound Specimen (Source) Anatomical Location Collection Method / Collectio n Time Received Time / Laterality Volume Impressions 09/03/2020 4:32 PM REGULATORY ANALYST ? [place] Gestation. ?? presentation: Cephalic Placenta: [...] No gross anomalies observed. Kori Booker MD [facility] Obstetrics and Gynecology [facility] Narrative 09/03/2020 4:32 PM REGULATORY ANALYST [facility] Obstetrics and Gynecology ?? ULTRASOUND - OB [...] documented as of this encounter Care Teams Driver Education Instructor Relationship Specialty Start Date End Date Blank Lemos MD PCP - General Internal Medicine 04/22/[address] [place] [address] K[place] RENO [phone] Blank Lemos MD Assigned PCP 04/25/[address] [place] [address] KISHAN RENO [phone] Kathleen Lacy CNM Assigned OBGYN Provider 06/01/20 11/23/21 Cipriano [place] [address] documented as of this encounter
--- OUTSIDE RECORDS SUMMARY | 2022-06-04 10:00 | XMS_ITS | Encounter Summary ---
:1990 Author Organization [place] Address [address] [facility] [place] [address] Care Team Providers Name Role Phone Blank Lemos MD Primary Care Provider Blank Lemos MD Unavailable Kathleen Lacy CNM Unavailable Reason for Visit Reason Comments Care Encounter Details Date Type Department Care Team Description 08/06/2020 Office [facility] Rand Kam h-risk , third trimester (Primary Dx); Visit [facility] EGINNY CNM Pelvic pain affecting in third trimester, antepartum; [place] [address] At risk for venous thromboem bolism (VTE); [address] Elevated blood pressure affecting pregna ncy in third trimester, antepartum [place], [place] [address] [address] [place], [place] [phone] [address] (Work) [phone] Social History Tobacco Use Types Packs/Day Years [...] with No / Unsure 08/06/2020 1:53 PM BANK RUNNER someone who was confirmed or suspected to have Coronavirus / COVID-19? documented as of this encounter Last Filed Vital Signs Vital Sign Reading Time Taken Comments Blood Pressure 122/74 08/06/2020 2:02 PM BANK RUNNER Pulse - - Temperature - - Respiratory Rate - - Oxygen Saturation - - Inhaled Oxygen Concentration - - Weight 110.2 kg (243 lb) 08/06/2020 2:02 PM BANK RUNNER Height - - Body Mass Index 43.05 [...] Review need for PP VTE prophylaxis at [place]. Warning signs reviewed. RTC in 2 weeks, sooner if problems. RUNNER documented in this encounter Nursing Notes Gonzalez [...] smoked. Reports pelvic pain over the weekend. RUNNER documented in this encounter Plan of Treatment [...] as of this encounter Care Teams Industrial Commercial Groundskeeper Relationship Specialty Start Date End Date Blank Lemos MD PCP - General Internal Medicine 04/22/[address] [place] [address] K[place] RENO [address] Blank Lemos MD Assigned PCP 04/25/[address] [place] [address] K[place] RENO [address] Kathleen Lacy CNM Assigned OBGYN Provider 06/01/20 11/23/21 [address] [place] [address] documented as of this encounter
--- OUTSIDE RECORDS SUMMARY | 2022-06-04 10:00 | XMS_ITS | Encounter Summary ---
:1990 Author Organization [place] Address [address] [place] [address] Care Team Providers Name Role Phone Blank [...] with No / Unsure 08/06/2020 1:53 PM MEDICAL CHARGE ENTRY SPECIALIST someone who was confirmed or suspected to have Coronavirus / COVID-19? documented as of this encounter Plan of Treatment Not on filedocumented as of this encounter Visit Diagnoses Not on filedocumented in this encounter Additional Health Concerns Assessment Noted Time PHQ-9 Depression Total Score: 10 02/02/2020 8:23 AM CD T documented as of this encounter Care Teams Assistant Professor Of Art Relationship Specialty Start Date End Date Blank Lemos MD PCP - General Internal Medicine 04/22/[address] [place] [address] KISHAN RENO [phone] Blank Lemos MD Assigned PCP 04/25/[address] [place] [address] K[place] R[place] [address] Kathleen Lacy CNM Assigned OBGYN Provider 06/01/20 11/23/21 [place] [place] [address] documented as of this encounter
--- OUTSIDE RECORDS SUMMARY | 2022-06-04 10:00 | XMS_ITS | Encounter Summary ---
:1990 Author Organization [place] Address [facility] [place] [address] Care Team Providers Name Role Phone Blank Lemos MD Primary Care Provider Blank Lemos MD Unavailable Reason for Visit Reason Comments Care 21w 4d, discsuss SOB, sweati ng, gagging while eating, medications and itching hands for a couple d ays Encounter Details Date Type Department Care Team Description 05/21/2020 Office [facility] Kathleen Lacy Prur itus of in second trimester (Primary Dx); Visit [facility] CNM Encounter for supervision of normal firs t in second trimester; [place] [address] Anxiety during in second trimester, antepartum [address] [place], [place] [address] [address] [place], [place] [phone] [address] (Work) [phone] Social History Tobacco Use Types Packs/Day Years [...] Bile Acids 6 0 - 10 05/22/2020 [place] Total umol/L 3:36 PM CDT [facility] Comment: (Note) INTERPRETIVE INFORMATION: Bile Acids, To carlita Reference Interval applies to fasting sp ecimens. Performed By: [facility] [address] [place] [address] University Lecturer: Annalise Hope MD Specimen Anatomical Collection Method Collection Time Receive d Time (Source) Location / / Volume Laterality Blood specimen 05/21/2020 9:56 AM 020 (specimen) CDT 10:01 AM CDT Kathleen FARMER LAB - BLOOD ORDERABLES Performing Organization Address City/State/ZIP Code Phon e Number [facility] [address] [place], [place] [address] [address] (ABNORMAL) Comprehensive metabolic panel (BMP + Alb, Alk Phos, ALT, AST, Total. Bili, TP) (05/21/2020 9:56 AM CDT) Analysis Performed At [facility] Time Signature Sodium 139 133 - 144 05/22/2020 [place] mmol/L 7:24 AM CDT [facility] Potassium 4.0 3.4 - 5.3 05/22/2020 [place] mmol/L 7:24 AM CDT [facility] Chloride 108 94 - 109 05/22/2020 [place] mmol/L 7:24 AM CDT [facility] Carbon Dioxide 21 20 - 32 05/22/2020 [place] mmol/L 7:48 AM CDT [facility] Anion Gap 10 3 - 14 05/22/2020 [place] mmol/L 7:48 AM CDT [facility] Glucose 110 (H) 70 - 99 05/22/2020 [place] mg/dL 7:48 AM T [facility] Comment: Non Fasting Urea Nitrogen 5 (L) 7 - 30 mg/dL 05/22/2020 7:48 AM T [facility] Creatinine 0.58 0.52 - 1.04 mg/dL 05/22/2020 7:48 AM CD T [facility] GFR Estimate >90 >60 05/22/2020 7:48 AM CDT [facility] mL/min/{1.73_m2} [place] Comment: Non GFR Calc Starting 07/27/2018, serum creatinine ba sed estimated GFR (eGFR) will be calculated using the Chronic Kidney Dise [facility] Epidemiology Collaboration (CKD-EPI) equation. GFR Estimate If >90 >60 mL/min/{1.73_m2} 05/22/2020 7: 48 AM [facility] Black T [facility] Comment: GFR Calc Starting 07/27/2018, serum creatinine ba sed estimated GFR (eGFR) will be calculated using the Chronic Kidney Dise ase Epidemiology Collaboration (CKD-EPI) equation. Calcium 8.9 8.5 - 10.1 05/22/2020 7:48 AM [place] [facility] mg/dL CDT [facility] Bilirubin Total 0.2 0.2 - 1.3 05/22/2020 7:55 AM [facility] mg/dL CDT [facility] Albumin 2.6 (L) 3.4 - 5.0 g/dL 05/22/2020 7:55 AM [facility] CDT [facility] Protein Total 6.4 (L) 6.8 - 8.8 g/dL 05/22/2020 7:55 AM [facility] CDT [facility] Alkaline Phosphatase 73 40 - 150 U/L 05/22/2020 7:55 AM [facility] CDT [facility] ALT 18 0 - 50 U/L 05/22/2020 7:55 AM [facility] CDT [facility] AST 14 0 - 45 U/L 05/22/2020 7:55 AM [facility] CDT [facility] Specimen Anatomical Collection Method Collection Time Receive d Time (Source) Location / / Volume Laterality Blood specimen 05/21/2020 9:56 AM 020 (specimen) CDT 10:01 AM CDT Kathleen Lacy CNM LAB - BLOOD ORDERABLES Performing Organization Address City/State/ZIP Code Phon e Number [facility] [address] [place] [address] documented in this encounter Visit Diagnoses Diagnosis Pruritus of in second trimeste r - Primary Encounter for supervision of normal firs t in second trimester Supervision of normal first Anxiety during in second trime ster, antepartum documented in this encounter Additional Health Concerns Assessment Noted Time PHQ-9 Depression Total Score: 10 02/02/2020 8:23 AM CD T documented as of this encounter Care Teams Wheel Presser Relationship Specialty Start Date End Date Blank Lemos MD PCP - General Internal Medicine 04/22/[address] [place], [place] [address] Blank Lemos MD Assigned PCP 04/25/[address] [place] [address] documented as of this encounter
--- OUTSIDE RECORDS SUMMARY | 2022-06-04 10:00 | XMS_ITS | Encounter Summary ---
:1990 Author Organization [place] Address [address] [place] [address] Care Team Providers Name Role Phone Blank [...] with No / Unsure 08/27/2020 1:55 PM POSTAL CLERK someone who was confirmed or suspected to have Coronavirus / COVID-19? documented as of this encounter Plan of Treatment Not on filedocumented as of this encounter Visit Diagnoses Not on filedocumented in this encounter Additional Health Concerns Assessment Noted Time PHQ-9 Depression Total Score: 5 12/06/2020 7:02 AM CDT documented as of this encounter Care Teams Street Department Dispatcher Relationship Specialty Start Date End Date Blank Lemos MD PCP - General Internal Medicine 04/22/[address] [place] [address] KISHAN RENO [phone] Blank Lemos MD Assigned PCP 04/25/[address] [place] [address] KISHAN RENO [phone] Kathleen Lacy CNM Assigned OBGYN Provider 06/01/20 11/23/21 [address] [place] [id number] documented as of this encounter
--- OUTSIDE RECORDS SUMMARY | 2022-06-04 10:00 | XMS_ITS | Encounter Summary ---
:1990 Author Organization [place] Address [facility] [place] [address] Care Team Providers Name Role Phone Blank Lemos MD Primary Care Provider Blank Lemos MD Unavailable Kathleen Lacy CNM Unavailable Reason for Visit Reason Onset Date Comments Refill Request 07/08/2020 escitalopram (LEXAPR O) 20 MG tablet Encounter Details Date Type Department Care Team Description 07/08/2020 Refill [facility] Blank Lemos, Re fill Request Clinic Dev [place] (escitalopram (LEXAPRO) [address] [facility] 20 MG tablet) [facility] [address] K[place] MÉNDEZ [address] [place] [address] [phone] Social History Tobacco Use Types Packs/Day Years [...] with No / Unsure 07/09/2020 7:18 PM METALWORKING SPECIALIST someone who was confirmed or suspected [...] medication. Patient verbalized understanding. Oliva Craft RN LWORKING SPECIALIST Telephone Encounter - Blank Lemos MD - 07/10/2020 11:56 AM METALWORKING SPECIALIST Refill x 3 months - she is due for mental health follow up this month or Aug - ok if virtual Blank Lemos MD Internal Medicine/Pediatrics [facility] LWORKING SPECIALIST Telephone Encounter - Margarita Lowry RN - 07/10/2020 10:55 AM CST Routing refill request to provider for review/approval because: Positive test on 02/01/20. Margarita Lowry RN on 07/10/2020 at 10:56 AM LWORKING SPECIALIST documented in this encounter Plan of Treatment Not on filedocumented as of this encounter Visit Diagnoses Diagnosis Generalized anxiety disorder Bipolar I disorder (H) Bipolar I disorder, most recent episode (or current) unspecified documented in this encounter Additional Health Concerns Assessment Noted Time PHQ-9 Depression Total Score: 10 02/02/2020 8:23 AM CD T documented as of this encounter Care Teams Courtroom Deputy Relationship Specialty Start Date End Date Blank Lemos MD PCP - General Internal Medicine 04/22/[address] [place] [address] K[place]AN ERNO [address] Blank Lemos MD Assigned PCP 04/25/[address] [place] [address] K[place] RENO [address] Kathleen Lacy CNM Assigned OBGYN Provider 06/01/20 11/23/21 [address] [place], [place] [address] documented as of this encounter
--- OUTSIDE RECORDS SUMMARY | 2022-06-04 10:00 | XMS_ITS | Encounter Summary ---
:1990 Author Organization [place] Address [address] [place] [address] Care Team Providers Name Role Phone Blank [...] with No / Unsure 09/17/2020 1:55 PM FIELD MECHANICAL METER TESTER someone who was confirmed or suspected to have Coronavirus / COVID-19? documented as of this encounter Plan of Treatment Not on filedocumented as of this encounter Visit Diagnoses Not on filedocumented in this encounter Additional Health Concerns Assessment Noted Time PHQ-9 Depression Total Score: 5 12/06/2020 7:02 AM CDT documented as of this encounter Care Teams Storage Manager Relationship Specialty Start Date End Date Blank Lemos MD PCP - General Internal Medicine 04/22/[address] [place] [address] KISHAN RENO [phone] Blank Lemos MD Assigned PCP 04/25/[address] [place] [address] KISHAN RENO [phone] Kathleen Lacy CNM Assigned OBGYN Provider 06/01/20 11/23/21 [address] [place] [id number] documented as of this encounter
--- OUTSIDE RECORDS SUMMARY | 2022-06-04 10:00 | XMS_ITS | Encounter Summary ---
:1990 Author Organization [place] Address [address] [facility] [place] [address] Care Team Providers Name Role Phone Blank Lemos MD Primary Care Provider Blank Lemos MD Unavailable Kathleen Lacy CNM Unavailable Reason for Visit Reason Comments Care 25w 4d Encounter Details Date Type Department Care Team Description 06/18/2020 Office [facility] Chapo Jones for supervision of normal first in second trimester (Primary Dx); [facility] YARELI Rowe Non morbid obesity, unspecified obesity type [place] [address] [place] [address] [address] [place], [place] [phone] [address] (Work) [phone] Social History Tobacco Use Types Packs/Day Years [...] with No / Unsure 06/18/2020 2:11 PM HAND CIGAR MAKER someone who was confirmed or suspected to have Coronavirus / COVID-19? documented as of this encounter Last Filed Vital Signs Vital Sign Reading Time Taken Comments Blood Pressure 116/66 06/18/2020 2:16 PM HAND CIGAR MAKER Pulse - - Temperature - - Respiratory Rate - - Oxygen Saturation - - Inhaled Oxygen Concentration - - Weight 107 kg (236 lb) 06/18/2020 2:16 PM HAND CIGAR MAKER Height - - Body Mass Index 41.81 [...] me. Britney Jones CNM 06/18/2020 2:34 PM CIGAR MAKER documented in this encounter Plan of [...] documented as of this encounter Care Teams Erisa Attorney Relationship Specialty Start Date End Date Blank Lemos MD PCP - General Internal Medicine 04/22/18 [address] [facility] K[place] [phone] Blank Lemos MD Assigned PCP 04/25/18 [address] [facility] K[place] [phone] Kathleen Lacy CNM Assigned OBGYN Provider 06/01/20 11/23/21 [place] [address] documented as of this encounter
--- OUTSIDE RECORDS SUMMARY | 2022-06-04 10:01 | XMS_ITS | Encounter Summary ---
:1990 Author Organization [place] Address [facility] [place] [address] Care Team Providers Name Role Phone Blank Lemos MD Primary Care Provider Blank Lemos MD Unavailable Reason for Visit Reason Onset Date Comments Depression 02/02/2020 Anxiety 02/02/2020 Encounter Details Date Type Department Care Team Description 02/02/2020 Virtual Visit [facility] Blank Lemos Migraine without aura and without status migrainosus, not intractable (Primary Dx); Clinic Dev Camp MD Moderate episode of recurrent major depr essive disorder (H); [address] [place] [address] [facility] alized anxiety disorder; [facility] [address] Bipolar I disorder (H) [address] [place] [address] [place] [phone] Social History Tobacco Use Types Packs/Day Years [...] good luck! Blank Lemos MD Internal Medicine/Pediatrics [facility] documented in this encounter Progress Notes Blank [...] her first . Took a break from [facility] for therapy, due to lost insurance, but not has insurance again and will contact [facility] to restart. Social History Tobacco [...] well-groomed. Diagnostic Test Results: Labs reviewed in [facility] Assessment & Plan 1. Migraine without [...] good luck! Blank Lemos MD Internal Medicine/Pediatrics [facility] Return for appointment already scheduled with OB. Blank Lemos MD [facility] Video-Visit Details Type of service: Video Visit Video End Time:8:42am Originating Location (pt. Location): Home Distant Location (provider location): [facility] Platform used for Video Visit: [facility] Return for appointment already scheduled with [...] documented as of this encounter Care Teams Cold Work Operator Relationship Specialty Start Date End Date Blank Lemos MD PCP - General Internal Medicine 04/22/[address] [place] [address] [place] [address] Blank Lemos MD Assigned PCP 04/25/[address] [place] [address] [place] [id number] documented as of this encounter
--- OUTSIDE RECORDS SUMMARY | 2022-06-04 10:01 | XMS_ITS | Encounter Summary ---
:1990 Author Organization [place] Address [address] [place] [address] Care Team Providers Name Role Phone Blank [...] documented as of this encounter Care Teams Forensic Anthropologist Relationship Specialty Start Date End Date Blank Lemos MD PCP - General Internal Medicine 04/22/[address] [place] [address] K[place] R[place] [phone] Blank Lemos MD Assigned PCP 04/25/[address] [place] [address] [place] [phone] documented as of this encounter
--- OUTSIDE RECORDS SUMMARY | 2022-06-04 10:01 | XMS_ITS | Encounter Summary ---
:1990 Author Organization [place] Address [facility] [place] [address] Care Team Providers Name Role Phone Blank Lemos MD Primary Care Provider Blank Lemos MD Unavailable Hardeep Cárdenas Unavailable Unavailable Encounter Details Date Type Department Care Team Description 01/19/2020 Virtual Visit [facility] Nevin Gilman ed anxiety disorder (Primary Dx); [facility] Moderate episode of recurrent major depr essive disorder (H) Addiction [place] [address] [address] [place] [address] (Work) [phone] Social History Tobacco Use Types Packs/Day Years [...] 01/19/2020 1:00 PM CDT Patient reported to [facility] that she has no insurance and needs to put a pause on services. [facility] informedpatient that she can reach back out via calling the clinic or Plays.IOhart to schedule again when able. ANTONIO Menjivar, [facility] documented in this encounter Plan of Treatment Not on filedocumented as of this encounter Visit Diagnoses Diagnosis Generalized anxiety disorder - Primary Moderate episode of recurrent major depr essive disorder (H) documented in this encounter Additional Health Concerns Assessment Noted Time PHQ-9 Depression Total Score: 15 12/08/2019 10:02 AM C DT documented as of this encounter Care Teams Agricultural Equipment Test Engineer Relationship Specialty Start Date End Date Blank Lemos, PCP - General Internal Medicine 04/22/[address] [place] [address] [place] [phone] Blank Lemos, Assigned PCP [facility]18 [facility] [place] [address] Hardeep Cárdenas Personal Advocate & 06/17[birth year]01/30 Liaison (PAL) documented as of this encounter
--- OUTSIDE RECORDS SUMMARY | 2022-06-04 10:01 | XMS_ITS | Encounter Summary ---
:1990 Author Organization [place] Address [facility] [place] [address] Care Team Providers Name Role Phone Blank Lemos MD Primary Care Provider Blank Lemos MD Unavailable Reason for Visit Reason Comments Care 9w 1d, c/o nausea and vomite d for first time last night Encounter Details Date Type Department Care Team Description 02/24/2020 Office [facility] Faiza Reyes for supervision of normal first in first trimester (Primary Dx); [facility] YARELI Rodriguez BMI 45.0-49.9, adult (H); [place] [id number] [place] [address] Pap smear for cervical cance r screening [address] [facility] [address] [place] [address] [place] [address] [phone] [address] (Work) [phone] Social History Tobacco Use Types Packs/Day Years [...] Body Mass Index 38.26 07/15/2019 2:56 PM NETWORK SYSTEMS INTEGRATOR documented in this encounter Patient Instructions Patient InstructionsFaiza Reyes CNM - 02/24/2020 9:00 AM CDT Thank [facility] ?? We will notify you about your labs that were drawn today once we get the results back or if you have [facility] [employer] they will be posted there as well [...] next visit, you can reach the nurse ice house supervisor refrigerated national truck driver by calling our pager number [phone]. ?? If you wish to schedule another appointment, please call our office at [phone]. You can alsomake appointments through [employer] ?? If you have a medical emergency please call 911. Because you are , we have additional resources for you: ?? You may call our consulting RN's during normal business hours for non-urgent questions about yourpregnancy. ?? After hours you may also page the ice house supervisor refrigerated national truck driver for urgent questions or issues at [phone].There is always a ice house supervisor refrigerated national truck driver 24 hours a day. Reminders: Before 14 [...] Secure access to your medical record: Use [employer] (secure email communication and access to your chart) to send your primary care providera message or make an appointment. Ask someone on your Team how to sign up for [employer]. To log on to [employer] or for more information in [employer] please visit the website at [email or web address]. Certified Nurse Stockfeed Miller (CNM) Team Faiza Reyes APRN, YARELI Rendon APRN, YARELI Ingram APRN, YARELI Jones APRN, YARELI Again, thank you for choosing the midwives at [facility]. We are excited to be [...] PAP: 2019 History of abnormal Pap? Yes: [facility] Health maintenance updated: yes Current medications [...] file Gets together: Not on file Attends yarsanism service: Not on file Active member of club or organization: Not on file Attends meetings of clubs or organizations: Not on file Relationship status: Not on file ??? Intimate partner violence Fear of current or ex partner: Not on file Emotionally abused: Not on file Physically abused: Not on file Forced sexual activity: Not on file Other Topics Concern ??? Parent/sibling w/ CABG, AL or angioplasty before 65F 55M? 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 Smokes 3 cigs per day down [...] found, no interventions. Pt thinks this happened [phone] ??? TONSILLECTOMY FAMILY HISTORY Family History Problem [...] tenderness or inflammation. Perineum without lesions. VAGINA: [place], normal rugae and discharge. CERVIX: Anterior, smooth, [...] of triage nurse line and contacting the refrigerated national truck driver CNM after hours in an emergency. ?? Symptoms of N&V and fatigue usually start to resolve around 12-16 weeks ?? Reviewed CNM philosophy, call schedule for labor and delivery, and [facility] for delivery ?? 1st OB handout given [...] desire a RN home visit from the [facility]? No If yes, paperwork completed? No F/U [...] Signature TSH 2.05 0.40 - 4.00 02/25/2020 [facility] mU/L 12:08 PM CDT [facility] Specimen Anatomical Collection Method Collection Time Receive d Time (Source) Location / / Volume Laterality Blood specimen 02/24/2020 9:47 AM 020 9:52 (specimen) CDT AM CDT Faiza Reyes CNM LAB - BLOOD ORDERABLES Performing Organization Address City/State/ZIP Code Phon e Number [facility] [address] [place] [address] Hemoglobin A1c (02/24/2020 9:47 AM CDT) athologist Signature Hemoglobin A1C 5.2 0 - 5.6 % 02/24/2020 [place] 2:13 PM CDT [facility] Comment: Normal <5.7% Prediabetes 5.7-6.4% ??Diab etes 6.5% or higher - adopted from ADA consensus guidelines. Specimen Anatomical Collection Method Collection Time Receive d Time (Source) Location / / Volume Laterality Blood specimen 02/24/2020 9:47 AM 020 9:52 (specimen) CDT AM CDT Faiza Reyes [facility] LAB - BLOOD ORDERABLES Performing Organization Address City/State/ZIP Code Phon e Number [facility] [address] [place], [place] [address] [address] (ABNORMAL) Pap imaged thin layer screen with HPV - recommended age 30 - 65 years (select HPV order below) (02/24/2020 9:35 AM CDT) Component Value Ref Test Analysis Performed At [facility] Range Method Time Signature PAP ASC-US (A) COPATH Copath Report COPATH Patient Name: RENA RESENDIZ MR#: [id number] Specimen #: [id number] Collected: 02/24/2020 Received: 02/27/2020 Reported: 02/29/2020 16:35 [...] or other cancer s. COLLECTION SITE: Client: ??[facility] Location: RIOB (R) The technical component of this testing was completed at the [facility], with the professional compo nent performed at the [facility], [address], [place], [place] [phone] ([phone]) Specimen (Source) Anatomical Collection Method Collection Time Re ceived Time Location / / Volume Laterality Cytologic 02/24/2020 9:35 02/27/2020 7 :32 material AM CDT AM CDT (specimen) Faiza FARM[facility] LAB - OPTIME CLINICAL SPECIM EN Performing Organization Address City/State/ZIP Code Phon e Number [place] (ABNORMAL) HPV High Risk Types DNA Cervical (02/24/2020 9:30 AM CDT) [facility] gist Method Time Signature HPV Source SurePath 02/24/2020 [place] 9:35 AM CDT [facility] HPV 16 DNA Negative NEG^Negat 03/05/2020 [facility] yakelin 6:46 AM CDT [facility] HPV 18 DNA Negative NEG^Negat 03/05/2020 [facility] yakelin 6:46 AM CDT [facility] Other HR HPV Positive (A) NEG^Negat 03/05/2020 [facility] yakelin 6:46 AM CDT [facility] Final This patient's sample is pos itive for other HR HPV DNA (types 31, 33, 35, 39, 45, 51, 52, 03/05/2020 [facility] 56, 58, 59, 66 or 68), not H PV 16 or HPV 18 DNA. This result requires clinical correlation 6:46 AM CDT [facility] with concurrent cytology findings. [facility] Comment: This test was developed and its performa nce characteristics determined by the [facility], Molecular Diagnostics Laboratory. It has not [...] Cervical Cells 02/24/2020 9:3 5 AM CDT [facility] Comment: [id number] Specimen Anatomical Collection Method Collection Time Receive d Time (Source) Location / / Volume Laterality Cervical Cells CERVIX UTERI 02/24/2020 9:30 AM 020 3:22 STRUCTURE / CDT PM CDT Unknown Faiza Reyes CNM LAB - BLOOD ORDERABLES Performing Organization Address City/[facility]/ZIP Code Phon e Number [address] [address] [place] [address] [place] [address] [address] CHLAMYDIA TRACHOMATIS PCR (02/24/2020 9:30 AM CDT) [facility] Method Time Signature Specimen Vagina 02/24/2020 [place] Description 2:41 PM CDT [facility] Chlamydia Negative NEG^Negat 02/26/2020 INFECTIOUS Trachomatis PCR yakelin 2:30 PM CDT [facility] Comment: Negative for C. trachomatis rRNA by hoffman scription mediated amplification. A negative result by v belt skiver media logan amplification does not preclude the [...] Code Phon e Number INFECTIOUS DISEASES [address] [place] [address] DIAGNOSTIC LABORATORY, [facility] [address] [place] [address] [facility] 180 INFECTIOUS DISEASES [address] [place] [address], A DIAGNOSTIC LABORATORY NEISSERIA GONORRHOEA PCR (02/24/2020 9:30 AM CDT) Analysis Performed At Patho logist Time Signature Specimen Vagina 02/24/2020 [place] Descrip 2:41 PM CDT [facility] N Gonorrhea Negative NEG^Negati 02/26/2020 INFECTIOUS PCR ve 2:30 PM CDT [facility] Comment: Negative for N. gonorrhoeae rRNA by hoffman scription mediated amplification. A negative result by v belt skiver media logan amplification does not preclude the [...] Code Phon e Number INFECTIOUS DISEASES [address] [place] [address] DIAGNOSTIC LABORATORY, [facility] [address] [place] [address] [facility] 180 INFECTIOUS DISEASES [address] [place] [address], A DIAGNOSTIC LABORATORY documented in this encounter [...] documented as of this encounter Care Teams Mortgage Loan Processing Clerk Relationship Specialty Start Date End Date Blank Lemos MD PCP - General Internal Medicine 04/22/[address] [place] [address] [place] [address] Blank Lemos MD Assigned PCP 04/25/18 [address] [facility] [address] [place], [place] [address] documented as of this encounter
--- OUTSIDE RECORDS SUMMARY | 2022-06-04 10:01 | XMS_ITS | Encounter Summary ---
:1988 Author Organization [place] Address [facility] [place] [address] Care Team Providers Name Role Phone Blank Lemos MD Primary Care Provider Blank Lemos MD Unavailable Encounter Details Date Type Department Care Team Description 02/20/2020 [facility] Only [facility] linda for supervision [facility] y of normal first [address] [place] in [place] [address] Social History Tobacco Use Types Packs/Day [...] type and screen (02/20/2020 9:09 AM CDT) [facility] Method Time Signature ABO O 02/20/2020 [place] 5:05 PM T [facility] RH(D) Pos [facility] Antibody Neg 02/20/2020 [place] Screen 5:05 PM T [facility] Test Valid [place] 02/20/2020 [place] Only At [facility] 5:02 PM CDT [facility] Specimen 02/23/2020 02/20/2020 [facility] Expires 5:02 PM T [facility] Specimen Anatomical Collection Method Collection Time Receive d Time (Source) Location / / Volume Laterality Blood specimen 02/20/2020 9:09 AM 020 9:10 (specimen) CDT AM CDT Faiza [facility] - BLOOD BANK TEST ORDER Performing Organization Address City/[facility] [place]/ZIP Code Phon e Number [facility] [address] [place], [place] [address] [facility] [address] [place], [place] [address] [place] [address] Hepatitis B surface antigen (02/20/2020 9:08 AM CDT) [facility] Method Time Signature Hep B Surface Nonreactive NR^Nonrea 02/21/2020 [facility] 9:57 AM CDT [facility] Specimen Anatomical Collection Method Collection Time Receive d Time (Source) Location / / Volume Laterality Blood specimen 02/20/2020 9:08 AM 020 9:13 (specimen) CDT AM CDT Faiza FARMER LAB - BLOOD ORDERABLES Performing Organization Address City/State/ZIP Code Phon e Number [id number] [place] [address] (ABNORMAL) CBC with platelets (02/20/2020 9:08 AM CDT) [facility] Method Time Signature WBC 11.3 (H) 4.0 - 11.0 02/20/2020 [facility] 10e9/L 10:39 AM CDT [facility] RBC Count 4.20 3.8 - 5.2 02/20/2020 [facility] 10e12/L 10:39 AM CDT [facility] Hemoglobin 12.9 11.7 - 02/20/2020 [facility] 15.7 g/dL 10:39 AM CDT [facility] Hematocrit 39.7 35.0 - 02/20/2020 [facility] 47.0 % 10:39 AM CDT [facility] MCV 95 78 - 100 02/20/2020 [facility] fl 10:39 AM CDT [facility] MCH 30.7 26.5 - 02/20/2020 [facility] 33.0 pg 10:39 AM CDT [facility] MCHC 32.5 31.5 - 02/20/2020 [facility] 36.5 g/dL 10:39 AM CDT [facility] RDW 13.4 10.0 - 02/20/2020 [facility] 15.0 % 10:39 AM CDT [facility] Platelet Count 350 150 - 450 02/20/2020 [place] 10e9/L 10:39 AM CDT [facility] Specimen Anatomical Collection Method Collection Time Receive d Time (Source) Location / / Volume Laterality Blood specimen 02/20/2020 9:08 AM 020 9:13 (specimen) CDT AM CDT Faiza Reyes CNM LAB - BLOOD ORDERABLES Performing Organization Address City/State/ZIP Code Phon e Number [facility] [address] [place], [place] [address] [address] HIV Antigen Antibody Combo (02/20/2020 9:08 AM CDT) Patholo gist Method Time Signature HIV Antigen Nonreactive NR^Nonrea 02/21/2020 [facility] Antibody ctive 9:57 AM CDT [facility] Comment: HIV-1 p24 Ag & HIV-1/HIV-2 Ab N ot Detected Specimen Anatomical Collection Method Collection Time Receive d Time (Source) Location / / Volume Laterality Blood specimen 02/20/2020 9:08 AM 020 9:13 (specimen) CDT AM CDT Faiza Reyes CNM LAB - BLOOD ORDERABLES Performing Organization Address City/State/ZIP Code Phon e Number [facility] [address] [place] [address] [facility] Rubella Antibody IgG Quantitative (02/20/2020 9:08 AM CDT) Analysis Performed At Patho logist Time Signature Rubella Antibody 20 IU/mL 02/21/2020 [facility] F IgG Quantitative 11:12 AM CDT [facility] Comment: Positive. ??Suggests previous exposure o r [...] BLOOD ORDERABLES Performing Organization Address City/[facility] [place]/ZIP Code Phon e Number [address] [address] [facility] Treponema Abs w Reflex to RPR and Titer (02/20/2020 9:08 AM CDT) [facility] Method Time Signature Treponema Nonreactive NR^Nonrea 02/21/2020 [facility] ctive 9:37 AM CDT [facility] Comment: Methodology Change: Test performed on e DiaSorin Liaison XL by Treponema pallidum Total Antibodies Assay as of . Specimen Anatomical Collection Method Collection Time Receive d Time (Source) Location / / Volume Laterality Blood specimen 02/20/2020 9:08 AM 020 9:13 (specimen) CDT AM CDT Faiza [facility] LAB - BLOOD ORDERABLES Performing Organization Address City/[facility] [place]/ZIP Code Phon e Number [address] [address] [facility] Urine Culture Aerobic Bacterial (02/20/2020 9:08 AM CDT) [facility] Method Time Signature Specimen Midstream INFECTIOUS Description [...] ORDERABL ES Performing Organization Address City/[facility] [place]/ZIP Code Phon e Number INFECTIOUS DISEASES [address] [place] [address] DIAGNOSTIC LABORATORY, [facility] INFECTIOUS DISEASES [address] [place] [address], [place] DIAG[facility]STIC LAB[facility]ATORY documented in this encounter Visit Diagnoses Diagnosis Encounter for supervision of normal firs t in first trimester Supervision of normal first documented in this encounter Additional Health Concerns Assessment Noted Time PHQ-9 Depression Total Score: 10 02/02/2020 8:23 AM CD T documented as of this encounter Care Teams Policy Adviser Relationship Specialty Start Date End Date Blank Lemos MD PCP - General Internal Medicine 04/22/18 [address] [facility] [place] [phone] Blank Lemos MD Assigned PCP 04/25/18 [address] [facility] [place] [phone] documented as of this encounter
--- OUTSIDE RECORDS SUMMARY | 2022-06-04 10:01 | XMS_ITS | Encounter Summary ---
:1990 Author Organization [place] Address [address] [place] [address] Care Team Providers Name Role Phone Blank [...] documented as of this encounter Care Teams Elementary Education Tutor Relationship Specialty Start Date End Date Blank Lemos MD PCP - General Internal Medicine 04/22/[address] [place] [address] [place] [address] Blank Lemos MD Assigned PCP 04/25/[address] [place] [address] [place] [id number] documented as of this encounter
--- OUTSIDE RECORDS SUMMARY | 2022-06-04 10:01 | XMS_ITS | Encounter Summary ---
:1990 Author Organization [place] Address [facility] [place] [address] Care Team Providers Name Role Phone Blank Lemos MD Primary Care Provider Blank Lemos MD Unavailable Reason for Visit Reason Onset Date Comments Refill Request 04/18/2020 traZODone (DESYREL) 50 MG tablet (Discontinued) Encounter Details Date Type Department Care Team Description 04/18/2020 Refill M [facility] Blank Lemos, Re fill Request Clinic Dev [place] (traZODone (DESYREL) 50 [address] [place] [address] [facility] MG ta blet (Discontinued) [facility] ) [address] [place] [address] [place] [address] [phone] Social History Tobacco Use Types Packs/Day Years [...] documented as of this encounter Care Teams Microbiological Laboratory Technician Relationship Specialty Start Date End Date Blank Lemos MD PCP - General Internal Medicine 04/22/[address] [place] [address] Blank Lemos MD Assigned PCP 04/25/[address] [place], [place] [address] documented as of this encounter
--- OUTSIDE RECORDS SUMMARY | 2022-06-04 10:01 | XMS_ITS | Encounter Summary ---
:1990 Author Organization [place] Address [facility] [place] [address] Care Team Providers Name Role Phone Blank Lemos MD Primary Care Provider Blank Lemos MD Unavailable Reason for Visit Diagnostic Imaging Ultrasound (Routine) - Closed Specialty Diagnoses / Procedures Referred By Contact Refer red To Contact Diagnoses care in first trimester Mayra Cooper CNM Procedures US OB > [address] [place], [place] [address] Referral ID Status Reason Start Date Expiration Date Visits Requ ested Visits Authorized [id number] Closed 03/27/2020 03/27/2021 1 1 Encounter Details Date Type Department Care Team Description 05/01/2020 Ancillary Procedure [facility] Mayra Cooper care in Clinic Kely Kendall CNM first trimester [address] [facility] [address] [place] [address] [place] [phone] Social History Tobacco Use Types Packs/Day Years [...] Laterality Volume Narrative 05/01/2020 11:40 AM CDT [facility] Obstetrics and Gynecology ?? ULTRASOUND [...] fluid assessment is: Normal. Recommend referral to [facility] for targeted u ltrasound to evaluate anatomy not well seen on this exam. anomalies may be present but not d etected. Dina Germain MD Obstetrics and Gynecology [facility] ? Mayra Kendall Allison CN IMG US ORDERABLES documented in this encounter Visit Diagnoses Diagnosis care in first trimester documented in this encounter Additional Health Concerns Assessment Noted Time PHQ-9 Depression Total Score: 10 02/02/2020 8:23 AM CD T documented as of this encounter Care Teams Switch Tender Relationship Specialty Start Date End Date Blank Lemos MD PCP - General Internal Medicine 04/22/[address] [place] [address] KISHAN RENO [phone] Blank Lemos MD Assigned PCP 04/25/[address] [place] [address] KISHAN RENO [phone] documented as of this encounter
--- OUTSIDE RECORDS SUMMARY | 2022-06-04 10:01 | XMS_ITS | Encounter Summary ---
:1990 Author Organization [place] Address [address] [place] [address] Care Team Providers Name Role Phone Blank Lemos MD Primary Care Provider Blank Lemos MD Unavailable Encounter Details Date Type Department Care Team Description 02/01/2020 Orders Only [facility] Clinic Ble eding in early [place] [facility] [address] [place] [address] Social History Tobacco Use Types [...] Quantitative 8,783 (H) 0 - 5 02/02/2020 [place] Serum IU/L 10:[address] [facility] Specimen Anatomical Collection Method Collection Time Receive d Time (Source) Location / / Volume Laterality Blood specimen 02/01/2020 11:02 0 (specimen) AM CDT 11:04 AM CDT Faiza Reyes CNM LAB - BLOOD ORDERABLES Performing Organization Address City/State/ZIP Code Phon e Number [facility] [address] [place] [address] Progesterone (02/01/2020 11:02 AM CDT) P athologist Signature Progesterone 12.2 ng/mL 02/01/2020 [facility] 6:04 PM CDT [facility] Comment: Progesterone Reference Range Female Non ?Follicular [...] Phon e Number [facility] [address] [place], [place] [phone] [place] [address] documented in this encounter Visit Diagnoses Diagnosis Bleeding in early Unspecified hemorrhage in early pregnanc y, unspecified as to episode of care documented in this encounter Additional Health Concerns Assessment Noted Time PHQ-9 Depression Total Score: 15 12/08/2019 10:02 AM C DT documented as of this encounter Care Teams Trimmer Press Clippings Relationship Specialty Start Date End Date Blank Lemos MD PCP - General Internal Medicine 04/22/[address] [place] [address] KISHAN RENO [id number] Blank Lemos MD Assigned PCP 04/25/[address] [place] [address] KISHAN RENO [phone] documented as of this encounter
--- OUTSIDE RECORDS SUMMARY | 2022-06-04 10:01 | XMS_ITS | Encounter Summary ---
:1990 Author Organization [place] Address [facility] [place] [address] Care Team Providers Name Role Phone Blank Lemos MD Primary Care Provider Blank Lemos MD Unavailable Reason for Referral Diagnostic Imaging Other (Routine) - Closed Specialty Diagnoses / Procedures Referred By Contact Refer red To Contact Diagnoses Encounter for supervision of normal first in second trimester Soledad Jones CNM [facility] [address] [place] [address] [place] [address] Phone: Referral ID Status Reason Start Date Expiration Date Visits Requ ested Visits Authorized [id number] Closed 05/01/2020 05/01/2021 1 1 Encounter Details Date Type Department Care Team Description 05/01/2020 Orders [facility] Soledad Jones Enc ounter for [facility] supervision of normal [place] [address] first in [address] [place], [place] second trimes [place] [address] (Primary Dx) [address] [place] [address] Social History Tobacco Use Types [...] documented as of this encounter Care Teams Exchange Architect Relationship Specialty Start Date End Date Blank Lemos MD PCP - General Internal Medicine 04/22/[address] [facility] [address] Blank Lemos MD Assigned PCP 04/25/[address] [place] [address] documented as of this encounter
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
--- OUTSIDE RECORDS SUMMARY | 2022-06-04 10:01 | XMS_ITS | Encounter Summary ---
:1990 Author Organization [place] Address [address] [place] [address] Care Team Providers Name Role Phone Blank Lemos MD Primary Care Provider Blank Lemos MD Unavailable Reason for Referral Diagnostic Imaging Ultrasound (Routine) - Closed Specialty Diagnoses / Procedures Referred By Contact Refer red To Contact Diagnoses care in first trimester Mayra Cooper CNM Procedures US OB > [address] [place], [place] [address] Referral ID Status Reason Start Date Expiration Date Visits Requ ested Visits Authorized [id number] Closed 03/27/2020 03/27/2021 1 1 Reason for Visit Reason Comments Care 13w 5d, still having some he adaches, nausea is better Encounter Details Date Type Department Care Team Description [facility] YARELI Kendall first trimester [place] [address] (Primary Dx) [address] [place], [place] [address] [address] [place], [place] [phone] [address] (Work) [phone] Social History Tobacco Use Types Packs/Day Years [...] Body Mass Index 39.33 07/15/2019 2:56 PM RING FACER documented in this encounter Progress Notes Mayra Cooper CNM - 03/27/2020 9:30 AM CDT Feeling well. Baby is active. Denies any leaking of fluid, vaginal bleeding, regular uterine contractions, or headaches or other concerns. Discussed anatomy US. Ordered for 5-6 weeks. Can do the CNM appt the same day or virtually. Reviewed to call [phone] for contractions, loss of fluid, vaginal bleeding, decreased movement or any other questions or concerns. RTC in 4 weeks. Mayra Cooper DNP, PLANNING ASSOCIATE, MARLENYM documented in this encounter Nursing Notes [...] Laterality Volume Narrative 05/01/2020 11:40 AM CDT [facility] Obstetrics and Gynecology ?? ULTRASOUND [...] fluid assessment is: Normal. Recommend referral to [facility] for targeted u ltrasound to evaluate anatomy not well seen on this exam. anomalies may be present but not d etected. Dina Germain MD Obstetrics and Gynecology [facility] ? Mayra Kendall Allison [facility] US ORDERABLES documented in this encounter Visit Diagnoses Diagnosis care in first trimester - Prima ry care in first trimester documented in this encounter Additional Health Concerns Assessment Noted Time PHQ-9 Depression Total Score: 10 02/02/2020 8:23 AM CD T documented as of this encounter Care Teams Housing Liaison Relationship Specialty Start Date End Date Blank Lemos MD PCP - General Internal Medicine 04/22/18 [address] [facility] KISHAN RENO [phone] Blank Lemos MD Assigned PCP 04/25/18 [address] [facility] KISHAN RENO [phone] documented as of this encounter
--- OUTSIDE RECORDS SUMMARY | 2022-06-04 10:01 | XMS_ITS | Encounter Summary ---
:1990 Author Organization [place] Address [address] [place] [address] Care Team Providers Name Role Phone Blank [...] as of this encounter Care Teams Health Unit Coordinator Relationship Specialty Start Date End Date Blank Lemos MD PCP - General Internal Medicine 04/22/[address] [place] [address] KISHAN RENO [phone] Blank Lemos MD Assigned PCP 04/25/[address] [place] [address] KISHAN RENO [phone] documented as of this encounter
--- OUTSIDE RECORDS SUMMARY | 2022-06-04 10:01 | XMS_ITS | Encounter Summary ---
:1990 Author Organization [place] Address [address] [place] [address] Care Team Providers Name Role Phone Blank [...] documented as of this encounter Care Teams Research Associate Quality Control Qc Relationship Specialty Start Date End Date Blank Lemos MD PCP - General Internal Medicine 04/22/[address] [place] [address] KISHAN RENO [phone] Blank Lemos MD Assigned PCP 04/25/[address] [place] [address] KISHAN RENO [phone] documented as of this encounter
--- OUTSIDE RECORDS SUMMARY | 2022-06-04 10:01 | XMS_ITS | Encounter Summary ---
:1990 Author Organization [place] Address [address] [place] [address] Care Team Providers Name Role Phone Blank Lemos MD Primary Care Provider Blank Lemos MD Unavailable Encounter Details Date Type Department Care Team Description 02/03/2020 Orders Only [facility] Clinic Ble eding in early [place] [facility] [address] [place] [address] Social History Tobacco Use Types [...] (ABNORMAL) HCG quantitative (02/03/2020 10:56 AM CDT) [employer] Method Time Signature HCG Quantitative 13,231 0 - 5 02/04/2020 [place] Serum (H) IU/L 12:58 PM CDT [facility] Specimen Anatomical Collection Method Collection Time Receive d Time (Source) Location / / Volume Laterality Blood specimen 02/03/2020 10:56 0 (specimen) AM CDT 10:57 AM CDT Faiza Reyes CNM LAB - BLOOD ORDERABLES Performing Organization Address City/State/ZIP Code Phon e Number [facility] [address] [place] [address] documented in this encounter Visit Diagnoses Diagnosis Bleeding in early Unspecified hemorrhage in early pregnanc y, unspecified as to episode of care documented in this encounter Additional Health Concerns Assessment Noted Time PHQ-9 Depression Total Score: 10 02/02/2020 8:23 AM CD T documented as of this encounter Care Teams Fighting Vehicle Systems Maintainer Relationship Specialty Start Date End Date Blank Lemos MD PCP - General Internal Medicine 04/22/[address] [place] [address] K[place] RENO [phone] Blank Lemos MD Assigned PCP 04/25/[address] [place] [address] KISHAN RENO [phone] documented as of this encounter
--- OUTSIDE RECORDS SUMMARY | 2022-06-04 10:01 | XMS_ITS | Encounter Summary ---
:1990 Author Organization [place] Address Count includes the [facility] [place] [address] Care Team Providers Name Role Phone Blank Lemos MD Primary Care Provider Blank Lemos MD Unavailable Reason for Visit Reason Onset Date Comments Results 02/08/2020 Encounter Details Date Type Department Care Team Description 02/08/2020 Telephone [facility] Women's Ryann poon, Faiza Rodriguez, YARELI Results Clinic [place] [address] [place] [address] [facility] [address] [place] [address] [phone] Social History Tobacco Use Types Packs/Day Years [...] documented as of this encounter Care Teams Weaving Inspector Relationship Specialty Start Date End Date Blank Lemos MD PCP - General Internal Medicine 04/22/[address] [place] [address] KISHAN RENO [phone] Blank Lemos MD Assigned PCP 04/25/[address] [place] [address] KISHAN RENO [phone] documented as of this encounter
--- OUTSIDE RECORDS SUMMARY | 2022-06-04 10:01 | XMS_ITS | Encounter Summary ---
:1990 Author Organization [place] Address [address] [place] [address] Care Team Providers Name Role Phone Blank [...] as of this encounter Care Teams Barrel Filler Relationship Specialty Start Date End Date Blank Lemos MD PCP - General Internal Medicine 04/22/[address] [place] [address] KISHAN RENO [phone] Blank Lemos MD Assigned PCP 04/25/[address] [place] [address] KISHAN RENO [phone] documented as of this encounter
--- OUTSIDE RECORDS SUMMARY | 2022-06-04 10:01 | XMS_ITS | Encounter Summary ---
:1990 Author Organization [place] Address [facility] [place] [address] Care Team Providers Name Role Phone Blank Lemos MD Primary Care Provider Blank Lemos MD Unavailable Reason for Visit Reason Comments Medication Refill Encounter Details Date Type Department Care Team Description 03/02/2020 Refill [facility] Blank Oliveros MD Medication Refill Dev [address] [facility] [address] [facility] [address] [address] [place] [address] [phone] Social History Tobacco Use Types Packs/Day Years [...] with OB. Blank Lemos MD Internal Medicine/Pediatrics [facility] Telephone Encounter - Margarita Lowry RN - [...] PCP - General Internal Medicine 04/22/[address] [place] [address] K[place]AN RENO [phone] Blank Lemos MD Assigned PCP 04/25/[address] [place] [address] KISHAN RENO [phone] documented as of this encounter
--- OUTSIDE RECORDS SUMMARY | 2022-06-04 10:01 | XMS_ITS | Encounter Summary ---
:1990 Author Organization [place] Address [facility] [place] [address] Care Team Providers Name Role Phone Blank Lemos MD Primary Care Provider Blank Lemos MD Unavailable Reason for Visit Reason Comments Care 17w 5d, c/o left wrist pain and increase of migraines Encounter Details Date Type Department Care Team Description 04/24/2020 Office [facility] Kathleen Lacy Enco unter for supervision of normal first in second trimester (Primary Dx); Visit [facility] CNM Headache in , antepartum, secon d trimester; [place] [address] Carpal tunnel syndrome of le ft wrist [address] [place], [place] [address] [address] [place], [place] [phone] [address] (Work) [phone] Social History Tobacco Use Types Packs/Day Years [...] bent back when typing. ?? You may use??ydyz-xzj-muwcdft pain medicine to treat pain and inflammation, [...] or weak Date Last Reviewed: 12/08/2017 ?? [phone] [employer]. [address] [place] [address], [place] [address]. All rights reserved. This information is not [...] documented as of this encounter Care Teams Mid Level Project Manager Relationship Specialty Start Date End Date Blank Lemos MD PCP - General Internal Medicine 04/22/[address] [place] [address] K[place] R[place] [phone] Blank Lemos MD Assigned PCP 04/25/[address] [place] [address] KISH[place] RENO [phone] documented as of this encounter
--- OUTSIDE RECORDS SUMMARY | 2022-06-04 10:01 | XMS_ITS | Encounter Summary ---
:1990 Author Organization [place] Address [address] [place] [address] Care Team Providers Name Role Phone Blank [...] documented as of this encounter Care Teams Creative Arts Music Therapist Relationship Specialty Start Date End Date Blank Lemos MD PCP - General Internal Medicine 04/22/[address] [place] [address] KISHAN RENO [phone] Blank Lemos MD Assigned PCP 04/25/[address] [place] [address] KI[place]AN RENO [phone] documented as of this encounter
--- OUTSIDE RECORDS SUMMARY | 2022-06-04 10:01 | XMS_ITS | Encounter Summary ---
:1990 Author Organization [place] Address [facility] [place] [address] Care Team Providers Name Role Phone Blank Lemso MD Primary Care Provider Blank Lemos MD Unavailable Reason for Visit Diagnostic Imaging Ultrasound (Routine) - Closed Specialty Diagnoses / Procedures Referred By Contact Refer red To Contact Diagnoses Bleeding in early Faiza Reyes CNM Procedures US OB <14 Weeks w Transvaginal Single US OB < 14 Weeks [address] [place], [place] [address] Referral ID Status Reason Start Date Expiration Date Visits Requ ested Visits Authorized [id number] Closed 02/01/2020 01/31/2021 1 1 Encounter Details Date Type Department Care Team Description 02/20/2020 Orders Only [facility] Clinic Ble eding in early [place] [address] [facility] [address] [place] [address] Social History Tobacco Use [...] Dr. Lora Ward MD Obstetrics and Gynecology [facility] ? Kely and Dev ?? Narrative 02/22/2020 7:31 PM CDT 02/20/2020 11:40 AM ? [facility] Obstetrics & Gynecology [address] [place] [address] ULTRASOUND - OB < 14 Weeks ?? [...] documented as of this encounter Care Teams Asset Availability Leader Relationship Specialty Start Date End Date Blank Lemos MD PCP - General Internal Medicine 04/22/[address] [place] [address] KISHAN RENO [phone] Blank Lemos MD Assigned PCP 04/25/[address] [facility] K[place] R[place] [phone] documented as of this encounter
--- OUTSIDE RECORDS SUMMARY | 2022-06-04 10:01 | XMS_ITS | Encounter Summary ---
:1990 Author Organization [place] Address [address] [place] [address] Care Team Providers Name Role Phone Blank [...] as of this encounter Care Teams Brick Veneer Maker Relationship Specialty Start Date End Date Blank Lemos MD PCP - General Internal Medicine 04/22/[address] [place] [address] KISHAN RENO [phone] Blank Lemos MD Assigned PCP 04/25/[address] [place] [address] KISHAN RENO [phone] documented as of this encounter
--- OUTSIDE RECORDS SUMMARY | 2022-06-04 10:01 | XMS_ITS | Encounter Summary ---
:1990 Author Organization [place] Address [address] [place] [address] Care Team Providers Name Role Phone Blank [...] documented as of this encounter Care Teams Gum Sprayer Relationship Specialty Start Date End Date Blank Lemos MD PCP - General Internal Medicine 04/22/[address] [place] [address] KISHAN RENO [phone] Blank Lemos MD Assigned PCP 04/25/[address] [place] [address] KISHAN RENO [phone] documented as of this encounter
--- OUTSIDE RECORDS SUMMARY | 2022-06-04 10:01 | XMS_ITS | Encounter Summary ---
:1990 Author Organization [place] Address formerly [facility] [place] [address] Care Team Providers Name Role Phone Blank Lemos MD Primary Care Provider Blank Lemos MD Unavailable Hardeep Cárdenas Unavailable Unavailable Encounter Details Date Type Department Care Team Description 01/05/2020 Virtual Visit [facility] Blank Lemos anxiety disorder (Primary Dx); Clinic Dev Camp MD Insomnia, unspecified type [address] [facility] [address] K[place]AN MÉNDEZ [address] K[place] Méndez [address] Social History Tobacco Use [...] weeks. Take Blank hodge MD Internal Medicine/Pediatrics [facility] documented in this encounter Progress [...] I will have full access to your [place] medical record during this entire phone call. [...] obtained for this service by care steam presser: Yes HPI Medication Followup of ej ?? [...] per week (better than none). Working with [employer]. Has left house a few times - today went to [employer] for the first time - big step. [...] 9 min Blank Lemos MD Internal Medicine/Pediatrics [facility] Sosa Whitehead - 01/05/2020 2:55 PM CDT Left message for patient to call back to schedule video appt 02/01. Sosa Whitehead, Eucl[place] Operator documented in this encounter Plan of Treatment Not on filedocumented as of this encounter Visit Diagnoses Diagnosis Generalized anxiety disorder - Primary Insomnia, unspecified type documented in this encounter Additional Health Concerns Assessment Noted Time PHQ-9 Depression Total Score: 15 12/08/2019 10:02 AM C DT documented as of this encounter Care Teams Senior Administrative Assistant Relationship Specialty Start Date End Date Blank Lemos, PCP - General Internal Medicine [facility] K[place]AN R[place] [phone] Blank Lemos, Assigned PCP 04/25/18 [facility] [place] [phone] Hardeep Cárdenas Personal Advocate & 06/17/1901/30 Liaison (PAL) documented as of this encounter
--- OUTSIDE RECORDS SUMMARY | 2022-06-04 10:01 | XMS_ITS | Encounter Summary ---
:1990 Author Organization [place] Address [facility] [place] [address] Care Team Providers Name Role Phone Blank Lemos MD Primary Care Provider Blank Lemos MD Unavailable Reason for Referral Diagnostic Imaging Ultrasound (Routine) - Closed Specialty Diagnoses / Procedures Referred By Contact Refer red To Contact Diagnoses related condition, antepartum Soledad Tracey CNM Procedures [facility] [address] [place] [address] Referral ID Status Reason Start Date Expiration Date Visits Requ ested Visits Authorized [id number] Closed 05/01/2020 05/01/2021 1 1 Encounter Details Date Type Department Care Team Description 05/01/2020 Transcribe Orders [facility] Robert, Pregn graciela related Maternal YARELI Rowe condition, Medicine Center [address] antepartum (Primary [facility] Dx) [address] [place], [place] [address] [address] [place], [place] [phone] [address] (Work) [phone] Social History Tobacco Use Types Packs/Day Years [...] on filedocumented as of this encounter Results [facility] US Comprehensive Single (05/11/2020 10:21 AM [...] Study Date : 05/11/2020 9:20am Pat. NO: [id number] Referring ??MD: JULIO TRACEY Site: [facility] Draw Tender: Moraima Keita RD MS : 1990 Age: [...] lb 13 ? oz EFW by ?Hadlock ([id number]) Head / Face / Neck Biometry: Geospatial Developer ? 7.5 ? mm CM ?3.7 [...] cava. Inferior vena cava. 3-vessel ? view. 4-ddstqh-tqjnjpa view. Cardiac position. Cardiac size. Cardiac rhythm. [...] Pat. Name:Noemi RESENDIZ Date: 9:20am Pat. NO: [id number] MD:SOLEDAD AGUIARJAYTON [facility]Moraima Keita RDMS :1990Age:30 INDICATION Suboptimal heart [...] 0 lb 13 oz EFW by Hadlock ([id number]-FL) Head / Face / Neck Biometry: Geospatial Developer 7.5 mm CM 3.7 mm Nasal [...] vena cava. Inferior vena cava. 3-vessel view. 8-pkrbiq-nxdvzpu view. Cardiac po sition. Cardiac size. Cardiac [...] cervix appears long and closed. Soledad Robert [facility] US ORDERABLES documented in this encounter Visit Diagnoses Diagnosis related condition, antepartum - Primary related condition, antepartum documented in this encounter Additional Health Concerns Assessment Noted Time PHQ-9 Depression Total Score: 10 02/02/2020 8:23 AM CD T documented as of this encounter Care Teams General Practice Relationship Specialty Start Date End Date Blank Lemos MD PCP - General Internal Medicine 04/22/[address] [place] [address] [place] [phone] Blank Lemos MD Assigned PCP 04/25/[address] [place] [address] K[place] RENO [phone] documented as of this encounter
--- OUTSIDE RECORDS SUMMARY | 2022-06-04 10:01 | XMS_ITS | Encounter Summary ---
:1990 Author Organization [place] Address [facility] [place] [address] Care Team Providers Name Role Phone Blank Lemos MD Primary Care Provider Blank Lemos MD Unavailable Hardeep Cárdenas Unavailable Unavailable Encounter Details Date Type Department Care Team Description 01/04/2020 Telephone [facility] Blank Oliveros MD [place] [facility] [address] [facility] [place] [address] [address] [place] [address] [phone] Social History Tobacco Use Types Packs/Day Years [...] documented as of this encounter Care Teams Spooler Rubber Strand Relationship Specialty Start Date End Date Blank Lemos, PCP - General Internal Medicine 04/22/18 MD [facility] K[place]AN RENO [phone] Blank Lemos, Assigned PCP 04/25/18 [facility] [place] [address] Hardeep Cárdenas Personal Advocate & 06/17/1901/30 Liaison (PAL) documented as of this encounter
--- OUTSIDE RECORDS SUMMARY | 2022-06-04 10:01 | XMS_ITS | Encounter Summary ---
:1990 Author Organization [place] Address [facility] [place] [address] Care Team Providers Name Role Phone Blank Lemos MD Primary Care Provider Blank Lemos MD Unavailable Reason for Referral Diagnostic Imaging Ultrasound (Routine) - Closed Specialty Diagnoses / Procedures Referred By Contact Refer red To Contact Diagnoses related condition, antepartum Soledad Jones CNM Procedures [facility] Single [address] [place] [address] Referral ID Status Reason Start Date Expiration Date Visits Requ ested Visits Authorized [id number] Closed 05/01/2020 05/01/2021 1 1 Reason for Visit Diagnostic Imaging Ultrasound (Routine) - Closed Specialty Diagnoses / Procedures Referred By Contact Refer red To Contact Diagnoses related condition, antepartum Soledad Jones CNM Procedures [facility] Single [address] [place] [address] Referral ID Status Reason Start Date Expiration Date Visits Requ ested Visits Authorized [id number] Closed 05/01/2020 05/01/2021 1 1 Encounter Details Date Type Department Care Team Description 05/11/2020 Hospital Encounter [facility] Soledad Jones CNM [address] [place], [place] [id number] related Maternal Ana Danielle MD [address] [place] [address] condition, Medicine Center antepartum [facility] [address] [place] [phone] Social History Tobacco Use Types Packs/Day Years [...] Procedure Name Priority Date/Time Associated Comments Diagnosis [facility] US COMPREHENSIVE Routine 05/11/2020 10:21 relate d Results for this SINGLE AM CDT condition, procedure are i n antepartum the results section. documented in this encounter Results [facility] US Comprehensive Single (05/11/2020 10:21 AM [...] Study Date : 05/11/2020 9:20am Pat. NO: [id number] Referring ??MD: [facility] Site: [facility] Secretary Receptionist: Moraima Keita RD MS : 1990 Age: [...] lb 13 ? oz EFW by ?Hadlock ([id number]-FL) Head / Face / Neck Biometry: Motor Pool Driver ? 7.5 ? mm CM ?3.7 ? [...] cava. Inferior vena cava. 3-vessel ? view. 3-fpkxbw-exqjfhz view. Cardiac position. Cardiac size. Cardiac rhythm. [...] Pat. Name:Noemi RESENDIZ Date: 9:20am Pat. NO: [id number] MD:SOLEDAD WERNER [facility]:Moraima Keita RDMS :1990Age:30 INDICATION Suboptimal heart anatomy [...] 0 lb 13 oz EFW by Hadlock ([id number]-FL) Head / Face / Neck Biometry: Motor Pool Driver 7.5 mm CM 3.7 mm Nasal bone [...] vena cava. Inferior vena cava. 3-vessel view. 4-bmjfzr-mrxhsfq view. Cardiac po sition. Cardiac size. Cardiac rhythm. Right lung. Left lung. Diaphragm. Abdomen Abdominal wall. Cord insertion. Stomach. Kidneys. Bladder. Liver. Bowel. Genitals. Spine Cervical spine. Thoracic spine. Juilenne mbar spine. Sacral spine. Extremities / Skeleton [...] cervix appears long and closed. Soledad Cruzosmeljodie [facility] US ORDERABLES documented in this encounter Visit Diagnoses Diagnosis related condition, antepartum documented in this encounter Additional Health Concerns Assessment Noted Time PHQ-9 Depression Total Score: 10 02/02/2020 8:23 AM CD T documented as of this encounter Care Teams Automobile Salesman Relationship Specialty Start Date End Date Blank Lemos MD PCP - General Internal Medicine 04/22/[address] [place] [address] KISHAN RENO [phone] Blank Lemos MD Assigned PCP 04/25/[address] [place] [address] KISHAN RENO [phone] documented as of this encounter
--- OUTSIDE RECORDS SUMMARY | 2022-06-04 10:01 | XMS_ITS | Encounter Summary ---
:1990 Author Organization [place] Address [address] [place] [address] Care Team Providers Name Role Phone Blank Lemos MD Primary Care Provider Blank Lemos MD Unavailable Reason for Visit Reason Comments Care New Nurse Telephone Visit Encounter Details Date Type Department Care Team Description 02/07/[address] [facility] er for Visit Clinic Dev supervision of normal [address] first preg manny in [facility] [address] first trimester [address] (Primary [...] If you answered Yes, is this for mormon reasons?: No Does anyone in your home [...] you have any allergies to drugs or zvho-ghc-ayagxwt medications?: (!) Yes(doxycycline) Allergies: Dust Mites, Aspartame, [...] or bleed: (!) Yes(nausea, fatigue, breast tenderness, crab fisher mping, spotting) Current medications, including bdwm-nze-gwkpgbe medications, you are using? (If not applicable answer none): see med list. weaning off of topamax Will the patient be 35 years old or older at the time of delivery?: No Has the patient, baby's father or anyone in either family had: Thalassemia (Hungarian, Zambian, Mediterranean or background only) and an MCV result less than 80?: (P) No Neural tube defect such as meningomyelocele, spina bifida or anencephaly?: (P) No Congenital heart defect?: (P) No Down's Syndrome?: (P) No Wilber-Sachs disease (Sabianist, Cajun, Amharic-[place])?: (P) No Sickle cell disease or trait [...] type and screen (02/20/2020 9:09 AM CDT) [facility] Method Time Signature ABO O 02/20/2020 [place] 5:05 PM [facility] RH(D) Pos [facility] Antibody Neg 02/20/2020 [place] Screen 5:05 PM [facility] Test Valid [place] 02/20/2020 [place] Only At [facility] 5:02 PM T [facility] Specimen 02/23/2020 02/20/2020 [place] Expires 5:02 PM [facility] Specimen Anatomical Collection Method Collection Time Receive d Time (Source) Location / / Volume Laterality Blood specimen 02/20/2020 9:09 AM 020 9:10 (specimen) CDT AM CDT Faiza Reyes CNM LAB - BLOOD BANK TEST ORDER Performing Organization Address City/State/ZIP Code Phon e Number [facility] [address] [place], [place] [address] [facility] [address] [place], [place] [address] [place] [address] Urine Culture Aerobic Bacterial (02/20/2020 9:08 AM CDT) Patholo gist Method Time Signature Specimen Midstream INFECTIOUS Description Urine [place] Culture Micro <10,000 colonies/mL 02/21/2020 [place] [facility] mixed urogenital andre 1:24 PM CDT [facility] Specimen (Source) Anatomical Collection Method Collection Time Re ceived Time Location / / Volume Laterality Examination of 02/20/2020 9:08 02/20/2020 9:13 midstream urine AM CDT AM CDT specimen (procedure) Faiza Ryees CNM LAB - MICRO GENERAL ORDERABL ES Performing Organization Address City/[facility]/ZIP Code Phon e Number INFECTIOUS DISEASES [address] [place] [address] DIAGNOSTIC LABORATORY, [facility] INFECTIOUS DISEASES [address] [place] [address], A DIAGNOSTIC LABORATORY Treponema Abs w Reflex to RPR and Titer (02/20/2020 9:08 AM CDT) [facility] Method Time Signature Treponema Nonreactive NR^Nonrea 02/21/[address] [facility] ctive 9:37 AM CDT [facility] Comment: Methodology Change: Test performed on DiaSorin Liaison XL by Treponema pallidum Total Antibodies Assay as of . Specimen Anatomical Collection Method Collection Time Receive d Time (Source) Location / / Volume Laterality Blood specimen 02/20/2020 9:08 AM 020 9:13 (specimen) CDT AM CDT Faiza Reyes CNM LAB - BLOOD ORDERABLES Performing Organization Address City/[facility]/ZIP Code Phon e Number [facility] [address] [place] [address] [facility] Rubella Antibody IgG Quantitative (02/20/2020 9:08 AM CDT) [facility] Rubella Antibody 20 IU/mL 02/21/2020 [place] [facility] IgG Quantitative 11:12 AM CDT [facility] Comment: Positive. ??Suggests previous exposure o r immunization and probable immunity Reference Range: ??Unvaccinated Negative 0-7 IU/mL Vaccinated or previous exposure Positive 10 IU/ml or greater Specimen Anatomical Collection Method Collection Time Receive d Time (Source) Location / / Volume Laterality Blood specimen 02/20/2020 9:08 AM 020 9:13 (specimen) CDT AM CDT Faiza FARMER LAB - BLOOD ORDERABLES Performing Organization Address City/[facility]/ZIP Code Phon e Number [address] HIV Antigen Antibody Combo (02/20/2020 9:08 AM CDT) [facility] Method Time Signature HIV Antigen Nonreactive NR^Nonrea 02/21/2020 [place] OF Antibody ctive 9:[address] [facility] Comment: HIV-1 p24 Ag & HIV-1/HIV-2 Ab N ot Detected Specimen Anatomical Collection Method Collection Time Receive d Time (Source) Location / / Volume Laterality Blood specimen 02/20/2020 9:08 AM 020 9:13 (specimen) CDT AM CDT Faiza FARMER LAB - BLOOD ORDERABLES Performing Organization Address City/[facility]/ZIP Code Phon e Number [address] (ABNORMAL) CBC with platelets (02/20/2020 9:08 AM CDT) [facility] Method Time Signature WBC 11.3 (H) 4.0 - 11.0 02/20/2020 [facility] 10e9/L 10:39 AM CDT [facility] RBC Count 4.20 3.8 - 5.2 02/20/2020 [facility] 10e12/L 10:39 AM CDT [facility] Hemoglobin 12.9 11.7 - 02/20/2020 [facility] 15.7 g/dL 10:39 AM CDT [facility] Hematocrit 39.7 35.0 - 02/20/2020 [facility] 47.0 % 10:39 AM CDT [facility] MCV 95 78 - 100 02/20/2020 [place] 10:39 AM CDT [facility] MCH 30.7 26.5 - 02/20/2020 [place] 33.0 pg 10:39 AM CDT [facility] MCHC 32.5 31.5 - 02/20/2020 [place] 36.5 g/dL 10:39 AM CDT [facility] RDW 13.4 10.0 - 02/20/2020 [place] 15.0 % 10:39 AM CDT [facility] Platelet Count 350 150 - 450 02/20/2020 [place] 10e9/L 10:39 AM CDT [facility] Specimen Anatomical Collection Method Collection Time Receive d Time (Source) Location / / Volume Laterality Blood specimen 02/20/2020 9:08 AM 020 9:13 (specimen) CDT AM CDT Faiza Reyes CNM LAB - BLOOD ORDERABLES Performing Organization Address City/[facility]/ZIP Code Phon e Number [facility] [address] [place], [place] [address] [address] Hepatitis B surface antigen (02/20/2020 9:08 AM CDT) [facility] gist Method Time Signature Hep B Surface Nonreactive NR^Nonrea 02/21/2020 [facility] [place] [facility] 9:57 AM CDT [facility] Specimen Anatomical Collection Method Collection Time Receive d Time (Source) Location / / Volume Laterality Blood specimen 02/20/2020 9:08 AM 020 9:13 (specimen) CDT AM CDT Faiza Reyes CNM LAB - BLOOD ORDERABLES Performing Organization Address City/State/ZIP Code Phon e Number [facility] [address] [place] [address] [facility] documented in this encounter Visit Diagnoses Diagnosis Encounter for supervision of normal firs t in first trimester - Primary Supervision of normal first documented in this encounter Additional Health Concerns Assessment Noted Time PHQ-9 Depression Total Score: 10 02/02/2020 8:23 AM CD T documented as of this encounter Care Teams Financial Services Assistant Relationship Specialty Start Date End Date Blank Lemos MD PCP - General Internal Medicine 04/22/[address] [place] [address] DR MÉNDEZ [place] [phone] Blank Lemos MD Assigned PCP 04/25/[address] [place] [address] K[place] RENO [phone] documented as of this encounter
--- OUTSIDE RECORDS SUMMARY | 2022-06-04 10:01 | XMS_ITS | Encounter Summary ---
:1990 Author Organization [place] Address [facility] [place] [address] Care Team Providers Name Role Phone Blank Lemos MD Primary Care Provider Blank Lemos MD Unavailable Reason for Visit Reason Comments Ultrasound L2-subopt anatomy on outside scan Encounter Details Date Type Department Care Team Description 05/09/2020 PRE VISIT [facility] Eliza Lux, UNRULY Ultra sound (L2-subopt Maternal Medicine guillermina harjeet on outside scan) [facility] [address] [facility] [address] [place] [address] Social History Tobacco Use Types [...] of this encounter Care Teams Medical Office Assistant Relationship Specialty Start Date End Date Blank Lemos MD PCP - General Internal Medicine 04/22/[address] [place] [address] K[place] RENO [phone] Blank Lemos MD Assigned PCP 04/25/[address] [place] [address] K[place] RENO [phone] documented as of this encounter
--- OUTSIDE RECORDS SUMMARY | 2022-06-04 10:01 | XMS_ITS | Encounter Summary ---
:1990 Author Organization [place] Address [address] [place] [address] Care Team Providers Name Role Phone Blank [...] documented as of this encounter Care Teams Printed Circuit Board Designer Relationship Specialty Start Date End Date Blank Lemos MD PCP - General Internal Medicine 04/22/[address] [place] [address] KISHAN RENO [phone] Blank Lemos MD Assigned PCP 04/25/[address] [place] [address] K[place] RENO [phone] documented as of this encounter
--- OUTSIDE RECORDS SUMMARY | 2022-06-04 10:01 | XMS_ITS | Encounter Summary ---
:1990 Author Organization [place] Address [facility] [place] [address] Care Team Providers Name Role Phone Blank Lemos MD Primary Care Provider Blank Lemos MD Unavailable Reason for Visit Reason Comments Colposcopy 15 weeks Encounter Details Date Type Department Care Team Description 04/09/2020 Office Visit [facility] Sharita Frias ASCUS wi th positive [facility] MD Blu high risk HPV cervical [place] [id number] [place] [address] (Primary Dx) [address] [place], [place] [address] [address] [place], [place] (Work) [address] [phone] Social History Tobacco Use Types Packs/Day Years [...] +HR HPV, not 16/18. Plan colp 10/07/18 [place]- No lesions seen, no Bx taken. Plan [...] Procedure Name Priority Date/Time Associated Diagnosis [facility] HC COLP CERVIX/UPPER Routine 04/09/2020 1:59 [...] as of this encounter Care Teams Aircraft Skin Burnisher Relationship Specialty Start Date End Date Blank Lemos MD PCP - General Internal Medicine 04/22/[address] [place] [address] [place] R[place] [phone] Blank Lemos MD Assigned PCP 04/25/[address] [place] [address] K[place] RENO [phone] documented as of this encounter
--- OUTSIDE RECORDS SUMMARY | 2022-06-04 10:02 | XMS_ITS | Encounter Summary ---
:1990 Author Organization [place] Address [address] [place] [address] Care Team Providers Name Role Phone Blank [...] as of this encounter Care Teams Credit Card Analyst Relationship Specialty Start Date End Date Blank Lemos, PCP - General Internal Medicine 04/22/[address] [place] [address] K[place] R[place] [phone] Blank Lemos, Assigned PCP 04/25/18 [facility] [place] [address] Hardeep Cárdenas Personal Advocate & 06/17/1901/30 Liaison (PAL) documented as of this encounter
--- OUTSIDE RECORDS SUMMARY | 2022-06-04 10:02 | XMS_ITS | Encounter Summary ---
:1990 Author Organization [place] Address [facility] [place] [address] Care Team Providers Name Role Phone Blank Lemos MD Primary Care Provider Blank Lemos MD Unavailable Blank Lemos MD Unavailable Reason for Visit Reason Onset Date Comments Refill Request 09/01/2018 topiramate (TOPAMAX) 100 MG tablet Encounter Details Date Type Department Care Team Description 09/01/2018 [facility]ill [facility] Serum, Lily Refill R [facility] Clinic Dev Reyes MD (topiramate (TOPAMAX) [address] [facility] 100 MG ta blet) [facility] [address] [facility] [place] [address] [place] [address] (Wo rk) Social History Tobacco [...] Ana Maria Daniels MA 11:11 AM 09/02/2018 AGE LABORER Telephone Encounter - Lily Mann RN - 09/02/2018 7:54 AM SALVAGE LABORER 30 day supply given. Patient is due for yearly physical and lab work. Please call and assist with scheduling appointment prior to next refill Lily Donohue RN - [facility] AGE LABORER Telephone Encounter - HollyFaiza - 09/01/2018 1:24 [...] No positive test in last 12 months AGE LABORER documented in this encounter Plan of Treatment [...] documented as of this encounter Care Teams Ms Access Database Developer Relationship Specialty Start Date End Date Blank Lemos MD PCP - General Internal Medicine 04/22/[address] [place] [address] K[place] RENO [phone] Blank Lemos MD PCP - Assigned PCP 04/25/18 10/12/[address] [place] [address] K[place] R[place] [phone] Blank Lemos MD Assigned PCP 04/25/[address] [place] [address] K[place] RENO [phone] documented as of this encounter
--- OUTSIDE RECORDS SUMMARY | 2022-06-04 10:02 | XMS_ITS | Encounter Summary ---
:1990 Author Organization [place] Address [address] [place] [address] Care Team Providers Name Role Phone Blank [...] Depression Total Score: 4 09/22/2018 3:08 PM POWER SAW MECHANIC documented as of this encounter Care Teams Infection Prevention Specialist Relationship Specialty Start Date End Date Blank Lemos, PCP - General Internal Medicine 04/22/18 [facility] [address] [place], [place] [address] Blank Lemos, Assigned PCP 04/25/18 [facility] [place] R[place] [address] Hardeep Cárdenas Personal Advocate & 06/17/1901/30 Liaison (PAL) documented as of this encounter
--- OUTSIDE RECORDS SUMMARY | 2022-06-04 10:02 | XMS_ITS | Encounter Summary ---
:1990 Author Organization [place] Address [facility] [place] [address] Care Team Providers Name Role Phone Blank Lemos MD Primary Care Provider Blank Lemos MD Unavailable Reason for Visit Reason Comments Medication Refill escitalopram (LEXAPRO) 20 MG tablet Encounter Details Date Type Department Care Team Description 04/29/2019 Refill [facility] Blank Lemos, [place] dication Refill Clinic Dev [place] (escitalopram (LEXAPRO) [address] [place] [address]305 [facility] 20 MG tablet) [facility] [address] KISHAN MÉNDEZ [address] KISHAN Méndez [address] [phone] Social History Tobacco Use Types Packs/Day Years [...] 05/02/2019 9:03 AM CDT Prescription approved per [facility] Refill Protocol. Brigido Bennett, RN, BSN Telephone [...] Depression Total Score: 4 09/22/2018 3:08 PM WOMEN'S BASKETBALL COACH documented as of this encounter Care Teams Forepart Rounder Relationship Specialty Start Date End Date Blank Lemos MD PCP - General Internal Medicine 04/22/[address] [place] [address] DR MÉNDEZ, KISHAN [phone] Blank Lemos MD Assigned PCP 04/25/[address] [place] [address] KISHAN RENO [phone] documented as of this encounter
--- OUTSIDE RECORDS SUMMARY | 2022-06-04 10:02 | XMS_ITS | Encounter Summary ---
:1990 Author Organization [place] Address [facility] [place] [address] Care Team Providers Name Role Phone Uvaldo Gamble MD Primary Care Provider Uvaldo Gamble MD Unavailable Uvaldo Gamble MD Unavailable Reason for Visit Reason Comments Physical Encounter Details Date Type Department Care Team Description 09/22/2018 Office Visit [facility] Uvaldo Gamble Encounter for gynecological examination without abnormal finding (Primary Dx); Clinic Dev Camp MD Bipolar I disorder (H); [address] [facility] Migra ine without aura and without status migrainosus, not intractable; [facility] Generalized anxiety disorder; [address] [place] [address] Screening for cervical cancer; [place] [address] Tobacco abuse; Otalgia of both [...] Comments Blood Pressure 108/66 09/22/2018 11:20 AM MATE RELIEF Pulse 59 09/22/2018 11:20 AM MATE RELIEF Temperature 36.7 ??C (98.1 ??F) 09/22/2018 11:20 AM MATE RELIEF Respiratory Rate - - Oxygen Saturation 98% 09/22/2018 11:20 AM MATE RELIEF Inhaled Oxygen Concentration - - Weight 84.4 kg (186 lb) 09/22/2018 11:20 AM MATE RELIEF Height - - Body Mass Index 32.43 [...] six months for an exam and cleaning. RELIEF documented in this encounter Progress Notes Uvaldo [...] Prophylaxis Lung CA Screening Uvaldo Gamble MD [facility] DEV RELIEF documented in this encounter Plan of Treatment Not on filedocumented as of this encounter Procedures Procedure Name Priority Date/Time Associated Diagnosis Comme nts PAP IMAGED THIN Routine 09/22/2018 11:51 AM Screening for Resu lts for this LAYER SCREEN MATE RELIEF cervical cancer procedure ar e in the results section. HPV HIGH RISK TYPES Routine 09/22/2018 11:39 AM Screening for Results for this DNA CERVICAL MATE RELIEF cervical cancer procedure ar e in the results section. documented in this encounter Results (ABNORMAL) Pap imaged thin layer screen with HPV - recommended age 30 - 65 years (select HPV order below) (09/22/2018 11:51 AM MATE RELIEF) Component Value Ref Test Analysis Performed At [facility] Range Method Time Signature PAP LSIL (A) COPATH Copath Report COPATH Patient Name: RENA RESENDIZ MR#: [id number] Specimen #: [id number] Collected: 09/22/2018 Received: 09/23/2018 Reported: 09/27/2018 15:17 [...] Arthur Grimes M.D. Processed and screened at [facility] CLINICAL HISTORY: A previous normal pap Date of Last Pap: 04/05/15, Papanicolaou Test Limitations: ??Cervical cytology is a sc reening test with limited sensitivity; regular screening is critical for cancer prevention; Pap tests are p rimarily effective for the diagnosis/prevention of squamous cell carcinoma, not adenocarcinomas or other cancer s. TESTING LAB LOCATION: [facility] [address] [place], [place] ??[address] COLLECTION SITE: Client: ??[facility] Location: EAFP (R) Specimen (Source) Anatomical Collection Method Collection Time Re ceived Time Location / / Volume Laterality Cytologic 09/22/2018 11:51 09/23/2018 2:24 material AM MATE RELIEF PM MATE RELIEF (specimen) Uvaldo Gamble MD LAB - OPTIME CLINICAL SPECIM EN Performing Organization Address City/State/ZIP Code Phon e Number COPATH (ABNORMAL) HPV High Risk Types DNA Cervical (09/22/2018 11:39 AM MATE RELIEF) [facility] Method Time Signature HPV Source Sure[facility] 09/22/2018 [place] 11:51 AM [facility] DEV MATE RELIEF HPV 16 DNA Negative NEG^Negat 09/28/2018 [facility] [place] 2:23 PM [facility] HPV 18 DNA Negative NEG^Negat 09/28/2018 [facility] [place] 2:23 PM [facility] Other HR HPV Positive (A) NEG^Negat 09/28/2018 [facility] [place] 2:23 PM [facility] Final This patient's sample is pos itive for other HR HPV DNA (types 31, 33, 35, 39, 45, 51, 52, 09/28/2018 [facility] 56, 58, 59, 66 or 68), not H PV 16 or HPV 18 DNA. This result requires clinical correlation 2:23 PM [facility] with concurrent cytology findings. [facility] Comment: This test was developed and its performa nce characteristics determined by the [facility], Molecular Diagnostics Laboratory. It has not [...] Description Cervical Cells 09/22/2018 11: 51 AM [facility] Comment: [id number] Specimen Anatomical Collection Method Collection Time Receive d Time (Source) Location / / Volume Laterality Cervical Cells CERVIX UTERI 09/22/2018 11:39 9 1:15 STRUCTURE / AM MATE RELIEF PM MATE RELIEF Unknown Uvaldo Gamble MD LAB - BLOOD ORDERABLES Performing Organization Address City/State/ZIP Code Phon e Number [address] [address] documented in this encounter Visit Diagnoses Diagnosis [...] Depression Total Score: 4 09/22/2018 3:08 PM MATE RELIEF documented as of this encounter Care Teams Maintenance Service Dispatcher Relationship Specialty Start Date End Date Uvalod Gamble MD PCP - General Internal Medicine 04/22/[address] [place] [address] [place] [address] Uvaldo Gamble MD PCP - Assigned PCP 04/25/18 10/12/[address] [place] [address] KISHAN RENO [phone] Uvaldo Gamble MD Assigned PCP 04/25/18 [address]305 [facility] KISHAN RENO [phone] documented as of this encounter
--- OUTSIDE RECORDS SUMMARY | 2022-06-04 10:02 | XMS_ITS | Encounter Summary ---
:1990 Author Organization [place] Address [facility] [place] [address] Care Team Providers Name Role Phone Blank Lemos MD Primary Care Provider Blank Lemos MD Unavailable Blank Lemos MD Unavailable Hardeep Cárdenas Unavailable Unavailable Encounter Details Date Type Department Care Team Description 09/28/2018 Result Follow [facility] Blank Lemos Dx: Papa nicolaou smear Up Clinic Dev Camp MD of cervix with low grade [address] [place] [address] [facility] squamous i ntraepithelial [facility] DR lesion (LGSIL) [address] [place] [address] [place] [phone] [address] (Work) [phone] Social History Tobacco Use Types Packs/Day Years [...] 09/22/18 LSIL, +HR HPV, not 16/18. Plan [place] by 12/20/18 09/29/18 Patient has been notified of results and recommendations. 10/07/18 [place]- No lesions seen, no Bx taken. Plan 1 yr co-test, due by 09/22/19. 09/07/19 [facility] reminder message sent. (es) 03/05/20 CCT tracking. 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) documented in this encounter Additional Health Concerns Assessment Noted Time PHQ-9 Depression Total Score: 4 09/22/2018 3:08 PM LINE ORDERING CLINICIAN documented as of this encounter Care Teams Finishing Manager Relationship Specialty Start Date End Date Blank Lemos, PCP - General Internal Medicine 04/[facility] KISHAN RENO [phone] Blank Lemos, PCP - Assigned PCP 04/25/[address] [facility] K[place] [phone] Blank Lemos, Assigned PCP 04/25/18 [facility] [place] [place] [address] Hardepe Cárdenas Personal Advocate & 06/17/1901/30 Liaison (PAL) documented as of this encounter"
--- OUTSIDE RECORDS SUMMARY | 2022-06-04 10:02 | XMS_ITS | Encounter Summary ---
:1990 Author Organization [place] Address [facility] [place] [address] Care Team Providers Name Role Phone Blank Lemos MD Primary Care Provider Blank Lemos MD Unavailable Blank Lemos MD Unavailable Reason for Visit Reason Comments Colposcopy Encounter Details Date Type Department Care Team Description 10/07/2018 Office Visit [facility] Yonathan Giraldo Papsohan molina smear of Clinic Dev You MD cervix with low grade [address] [place] [address] [place], [place] intraepithelial lesion [phone] (LGSIL) (Primary Dx) [place] [phone] (Wo rk) [address] [phone] Social History Tobacco Use Types Packs/Day Years [...] Comments Blood Pressure 114/80 10/07/2018 2:04 PM ORTHOTIST OR PROSTHETIST Pulse - - Temperature - - Respiratory Rate - - Oxygen Saturation - - Inhaled Oxygen Concentration - - Weight 84.6 kg (186 lb 9.6 oz) 10/07/2018 2:04 PM ORTHOTIST OR PROSTHETIST Height - - Body Mass Index 32.54 [...] Pap/HPV in 1 year Yonathan Giraldo MD OTIST OR PROSTHETIST documented in this encounter Nursing Notes Furlong, Shi F, EMBALMER APPRENTICE - 10/07/2018 2:00 PM CST Chief Complaint [...] Vaccinations: flu shot declined Shi Rinaldi CMA OTIST OR PROSTHETIST documented in this encounter Plan of Treatment Not on filedocumented as of this encounter Procedures Procedure Name Priority Date/Time Associated Diagnosis Comme nts HCG QUALITATIVE LEANDRA 10/07/2018 2:11 Papanicolaou smear of Results for this URINE PM ORTHOTIST OR PROSTHETIST cervix with low grade proced ure are in squamous the results intraepithelial lesion secti on. (LGSIL) documented in this encounter Results HCG qualitative urine - CSC and Range (10/07/2018 2:11 PM ORTHOTIST OR PROSTHETIST) P athologist Signature HCG Qual Urine Negative NEG^Negati 10/07/2018 [facility] 2:24 PM [facility]IST [facility] Comment: This test is for screening purposes. ??R esults should be interpreted along with the clinical picture. ??Confirmation te sting is available if warranted by ordering [id number], HCG Quantitative Pregna ncy. Specimen Anatomical Collection Method Collection Time Receive d Time (Source) Location / / Volume Laterality Urine specimen 10/07/2018 2:11 PM 019 2:13 (specimen) ORTHOTIST OR PROSTHETIST PM ORTHOTIST OR PROSTHETIST Yonathan Giraldo MD LAB - URINE ORDERABLES Performing Organization Address City/State/ZIP Code Phon e Number [address] [address] documented in this encounter Visit Diagnoses Diagnosis Papanicolaou smear of cervix with low gr asiya squamous intraepithelial lesion (LGSIL) - Primary documented in this encounter Additional Health Concerns Assessment Noted Time PHQ-9 Depression Total Score: 4 09/22/2018 3:08 PM ORTHOTIST OR PROSTHETIST documented as of this encounter Care Teams Energy Conservation Representative Relationship Specialty Start Date End Date Blank Lemos MD PCP - General Internal Medicine 04/22/[address] [place] [address] DR VASQUEZ, KISHAN [phone] Blank Lemos MD PCP - Assigned PCP 04/25/18 10/12/[address] [place] [address] KISHAN RENO [phone] Blank Lemos MD Assigned PCP 04/25/[address] [place] [address] KISHAN RENO [phone] documented as of this encounter
--- OUTSIDE RECORDS SUMMARY | 2022-06-04 10:02 | XMS_ITS | Encounter Summary ---
:1990 Author Organization [place] Address Pending [facility] to [facility] [place] [address] Care Team Providers Name Role Phone Blank Lemos MD Primary Care Provider Blank Lemos MD Unavailable Blank Lemos MD Unavailable Reason for Visit Reason Onset Date Comments Results 04/26/2018 Re: urine culture Encounter Details Date Type Department Care Team Description 04/26/2018 Telephone [facility] Blank Lemos Results ( Re: urine Clinic Dev Camp MD culture) [address] [place] 3305 [facility] [address] KISHAN MÉNDEZ [address] [place] Mén[place] [phone] Social History Tobacco Use Types Packs/Day Years [...] further evaluation. Blank Lemos MD Internal Medicine/Pediatrics [facility] Telephone Encounter - Anastasia Dickey - [...] documented as of this encounter Care Teams Epic Manager Relationship Specialty Start Date End Date Blank Lemos MD PCP - General Internal Medicine 04/22/[address] [place] [address] KISHAN RENO [phone] Blank Lemos MD PCP - Assigned PCP 04/25/18 10/12/[address] [place] [address] K[place] RENO [phone] Blank Lemos MD Assigned PCP 04/25/[address] [place] [address] K[place] RENO [phone] documented as of this encounter
--- OUTSIDE RECORDS SUMMARY | 2022-06-04 10:02 | XMS_ITS | Encounter Summary ---
:1990 Author Organization [place] Address [facility] [place] [address] Care Team Providers Name Role Phone Blank Lemos MD Primary Care Provider Blank Lemos MD Unavailable Hardeep Cárdenas Unavailable Unavailable Reason for Visit Reason Comments Ear Problem Encounter Details Date Type Department Care Team Description 07/15/2019 Office Visit [facility] Rebeka French Non- recurrent acute Clinic Dev Mays PA-C suppurative otitis [address] [facility] media of both ears [facility] without spontaneous [address] [place] [address] rupture of tympanic [place] [address] membranes [...] Comments Blood Pressure 118/64 07/15/2019 2:56 PM DOOR TENDER Pulse 67 07/15/2019 2:56 PM DOOR TENDER Temperature 36.8 ??C (98.3 ??F) 07/15/2019 2:56 PM DOOR TENDER Respiratory Rate 16 07/15/2019 2:56 PM DOOR TENDER Oxygen Saturation 98% 07/15/2019 2:56 PM DOOR TENDER Inhaled Oxygen Concentration - - Weight 96.6 kg (213 lb) 07/15/2019 2:56 PM DOOR TENDER Height 160 cm (5' 3) 07/15/2019 2:56 PM DOOR TENDER Body Mass Index 37.73 07/15/2019 2:56 PM DOOR TENDER documented in this encounter Progress Notes Rebeka [...] 20 tablet; Refill: 0 Rebeka French PA-C [facility] DEV TENDER documented in this encounter Plan of Treatment Not on filedocumented as of this encounter Visit Diagnoses Diagnosis Non-recurrent acute suppurative otitis m edia of both ears without spontaneous rupture of tympanic membranes - Primary documented in this encounter Additional Health Concerns Assessment Noted Time PHQ-9 Depression Total Score: 4 09/22/2018 3:08 PM DOOR TENDER documented as of this encounter Care Teams Rabbit Fancier Relationship Specialty Start Date End Date Blank Lemos, PCP - General Internal Medicine 04/22/18 MD [facility] DR MÉNDEZ, KISHAN [phone] Blank Lemos, Assigned PCP 04/25/18 MD Zarate [facility] K[place] R[place] [phone] Hardeep Cárdenas Personal Advocate & 06/17/1901/30 Liaison (PAL) documented as of this encounter
--- OUTSIDE RECORDS SUMMARY | 2022-06-04 10:02 | XMS_ITS | Encounter Summary ---
:1990 Author Organization [place] Address [facility] [place] [address] Care Team Providers Name Role Phone Blank Lemos MD Primary Care Provider Blank Lemos MD Unavailable Hardeep Cárdenas Unavailable Unavailable Encounter Details Date Type Department Care Team Description 01/03/2020 Virtual Visit [facility] Nevin Gilman ed anxiety disorder (Primary Dx); Mental Health & [facility] Moderate episode of recurrent major depr essive disorder (H) Addiction [place] [address] [address] [place] Mén[place] [address] (Work) [phone] Social History Tobacco Use Types Packs/Day Years [...] of this encounter Progress Notes Bessy Gilman, BOX TRUCK WASHER - 01/03/2020 2:30 PM CDT [facility] Primary Care: Integrated Behavioral [facility] January 03, [...] services. Mode of Communication: Video Conference via OneRoof As the provider I attest to compliance with applicable laws and regulations related to telemedicine. Behavioral Health Clinician Progress Note Patient Name: Rena Turner Service Type: Individual Session Start Time: 2:05pm Session End Time: 2:30pm Session Length: 16 - 37 Attendees: Client Visit Activities (Refresh list every visit): [facility] Only Diagnostic Assessment Date: 12/20/2019 [...] minutes): No Interactive Complexity: No Crisis: No [facility] Patient: No Treatment Objective(s) Addressed in [...] to experience panic when thinking about it. [facility] and patient spent session processing through patient's anxieties and what steps patient can take in order to feel more control over her anxiety. [facility] encouraged patient to try utilizing strategies daily [...] date to begin behavior change Motivational Interviewing SC Intervention: Expressed Empathy/Understanding, Supported Autonomy, Collaboration, Evocation, [...] time, however patient was encouraged to call [place] [phone] should there be a change in any [...] a follow up appointment with the clinic [facility] as needed. She was also given information about mental health symptoms andtreatment options . CD Recommendations: No indications of CD issues. Treatment plan to be completed at next session. 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
--- OUTSIDE RECORDS SUMMARY | 2022-06-04 10:02 | XMS_ITS | Encounter Summary ---
:1990 Author Organization [place] Address [address] [place] [address] Care Team Providers Name Role Phone Blank [...] Total Score: 4 09/22/2018 3:08 PM AIR LIFT OPERATOR documented as of this encounter Care Teams Tailer In Relationship Specialty Start Date End Date Blank Lemos MD PCP - General Internal Medicine 04/22/[address] [place] [address] K[place]AN RENO [phone] Blank Lemos MD PCP - Assigned PCP 04/25/18 10/12/[address] [place] [address] K[place]AN RENO [phone] Blank Lemos MD Assigned PCP 04/25/[address] [place] [address] KISHAN RENO [phone] documented as of this encounter
--- OUTSIDE RECORDS SUMMARY | 2022-06-04 10:02 | XMS_ITS | Encounter Summary ---
:1990 Author Organization [place] Address [facility] [place] [address] Care Team Providers Name Role Phone Blank Lemos MD Primary Care Provider Blank Lemos MD Unavailable Reason for Visit Reason Comments Medication Refill SUMAtriptan (IMITREX) 25 MG tablet Encounter Details Date Type Department Care Team Description 06/16/2019 Refill [facility] Blank Lemos, [place] dication Refill Clinic Dev CARVALHO (SUMAtriptan (IMITREX) [address] [place] [address] [facility] 25 MG tablet) [facility] [address] [place] MÉ[place]DE[place] [address] [place] Mén[place] [address] [phone] Social History Tobacco Use Types Packs/Day Years [...] No positive test in past 12 months ER SERVICE ASSISTANT documented in this encounter Plan of Treatment Not on filedocumented as of this encounter Visit Diagnoses Diagnosis Other migraine without status migrainosu s, not intractable documented in this encounter Additional Health Concerns Assessment Noted Time PHQ-9 Depression Total Score: 4 09/22/2018 3:08 PM SERVER SERVICE ASSISTANT documented as of this encounter Care Teams Master Naval Parachutist Relationship Specialty Start Date End Date Blank Lemos MD PCP - General Internal Medicine 04/22/[address] [place] [address] K[place]AN RENO [address] Blank Lemos MD Assigned PCP 04/25/[address] [place] [address] KISHAN RENO [phone] documented as of this encounter
--- OUTSIDE RECORDS SUMMARY | 2022-06-04 10:02 | XMS_ITS | Encounter Summary ---
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 NUMBER: [id number] DATE OF SERVICE: 12/20/19 START TIME: 2:00pm END TIME: 2:41pm PREFERRED PHONE: [phone] May we leave a program related message: [...] services. Mode of Communication: Video Conference via Specle As the provider I attest to compliance [...] History: Patient reported they grew up in [place], [place] and moved to [place] 7 years ago. They were raised by [...] Patient identified their preferred language to be Ecuadorean. Patient reported they does not need the assistance of an conservation policy analyst or other support involved in therapy. [...] symptoms were todevelop. The patient has a [place] Primary Care Provider, who is named Blank [...] not present. Safety Assessment: Current Safety Concerns: [place] Suicide Severity Rating Scale (Lifetime/Recent) [place] Suicide Severity Rating (Lifetime/Recent) 12/21/2019 12/21/2019 1. [...] is not confined to features of an Romayor I disorder. E. The anxiety, worry, or [...] increase in mood stability. 4. Resources/Service Plan: Director Mba services are not indicated. 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) documented in this encounter Additional Health Concerns Assessment Noted Time PHQ-9 Depression Total Score: 15 12/08/2019 10:02 AM C DT documented as of this encounter Care Teams [place] Machine Operator Relationship Specialty Start Date End Date Blank Lemos, PCP - General Internal Medicine [facility] KISHAN RENO [phone] Blank Lemos, Assigned PCP 04/25/18 [facility] KISHAN RENO [phone] Hardeep Cárdenas Personal Advocate & 06/17/1901/30 Liaison (PAL) documented as of this encounter
--- OUTSIDE RECORDS SUMMARY | 2022-06-04 10:02 | XMS_ITS | Encounter Summary ---
:1990 Author Organization [place] Address [address] [place] [address] Care Team Providers Name Role Phone Blank [...] Depression Total Score: 4 09/22/2018 3:08 PM DRONE SOFTWARE DEVELOPMENT ENGINEER documented as of this encounter Care Teams Aviation Safety Equipment Technician Relationship Specialty Start Date End Date Blank Lemos, PCP - General Internal Medicine 04/22/[facility] [address] [place], [place] [address] Blank Lemos, Assigned PCP 04/25/[address] [facility] [place] [address] Hardeep Cárdenas Personal Advocate & 06/17/1901/30 Liaison (PAL) documented as of this encounter
--- OUTSIDE RECORDS SUMMARY | 2022-06-04 10:02 | XMS_ITS | Encounter Summary ---
:1990 Author Organization [place] Address [facility] [place] [address] Care Team Providers Name Role Phone Blank Lemos MD Primary Care Provider Blank Lemos MD Unavailable Hardeep Cárdenas Unavailable Unavailable Reason for Visit Reason Comments Medication Refill Encounter Details Date Type Department Care Team Description 09/11/2019 Refill [facility] Blank Oliveros MD Medication Refill Dev 3305 [facility] 3305 [facility] [place] [address] [address] [place] [address] [phone] Social History Tobacco Use Types Packs/Day Years [...] ALEJANDRO MA on 09/12/2019 at 5:38 PM T HOLE MACHINE OPERATOR Telephone Encounter - Blank Lemos MD - 09/12/2019 3:12 PM CST Refilled x 3 months. Needs yearly appt before any additional refills after this. Please help her schedule physical plus within the next 3 months. Blank Lemos MD Internal Medicine/Pediatrics [facility] T HOLE MACHINE OPERATOR Telephone Encounter - Tia Floyd RN - [...] No positive test in last 12 months T HOLE MACHINE OPERATOR documented in this encounter Plan of Treatment Not on filedocumented as of this encounter Visit Diagnoses Diagnosis Migraine without aura and without status migrainosus, not intractable Migraine without aura, without mention o f intractable migraine without mention of status migrainosus documented in this encounter Additional Health Concerns Assessment Noted Time PHQ-9 Depression Total Score: 4 09/22/2018 3:08 PM RIVET HOLE MACHINE OPERATOR documented as of this encounter Care Teams Collet Making Machine Operator Relationship Specialty Start Date End Date Blank Lemos, PCP - General Internal Medicine 04/22/18 [facility] [place] [address] Blank Lemos, Assigned PCP 04/25/18 MD Zarate [facility] [place] [phone] Hardeep Cárdenas Personal Advocate & 06/17/1901/30 Liaison (PAL) documented as of this encounter
--- OUTSIDE RECORDS SUMMARY | 2022-06-04 10:02 | XMS_ITS | Encounter Summary ---
:1990 Author Organization [place] Address [address] [facility] [place] [address] Care Team Providers Name Role Phone Blank Lemos MD Primary Care Provider Blank Lemos MD Unavailable Hardeep Cárdenas Unavailable Unavailable Reason for Visit Reason Comments Urgent Care Ear Problem Ear pain in both ears for 2 months. Patient finished antibiotic and it is still not better. Encounter Details Date Type Department Care Team Description 07/26/2019 Office Visit [facility] Flaskerud, Middle ear effusion, Urgent Care Dev Wiggins, KAILEE bilateral (Primary Dx) [address] [place] [address] [place] [address] [address] [address] [place] [address] Social History Tobacco Use [...] Comments Blood Pressure 104/72 07/26/2019 5:23 PM BASKET SORTER Pulse 56 07/26/2019 5:23 PM BASKET SORTER Temperature 36.9 ??C (98.5 ??F) 07/26/2019 5:23 PM BASKET SORTER Respiratory Rate - - Oxygen Saturation 98% 07/26/2019 5:23 PM BASKET SORTER Inhaled Oxygen Concentration - - Weight - [...] on yoursymptoms.?? Date Last Reviewed: 05/10/2016 ?? [id number] [employer]. [address] [place] [address], [place] [address]. All rights reserved. This information is not intended as a substitute for professional medical care. Always follow your healthcare professional's instructions. ET SORTER documented in this encounter Progress Notes Rosalie [...] primary care provider. See orders in Epic ET SORTER documented in this encounter Nursing Notes Georgie Kim CMA - 07/26/2019 4:25 PM CST Chief Complaint Patient presents with ??? Urgent Care ??? Ear Problem Ear pain in both ears for 2 months. Patient finished antibiotic and it is still not better. S NIA KIM ET SORTER documented in this encounter Plan of Treatment Not on filedocumented as of this encounter Visit Diagnoses Diagnosis Middle ear effusion, bilateral - Primary documented in this encounter Additional Health Concerns Assessment Noted Time PHQ-9 Depression Total Score: 4 09/22/2018 3:08 PM BASKET SORTER documented as of this encounter Care Teams Numerical Control Lathe Operator Relationship Specialty Start Date End Date Blank Lemos, PCP - General Internal Medicine 04/22/[address] [place] [address] [address] [place], [place] [phone] Blank Lemos, Assigned PCP 04/25/18 [facility] [place] [address] Hardeep Cárdenas Personal Advocate & 06/17/1901/30 Liaison (PAL) documented as of this encounter
--- OUTSIDE RECORDS SUMMARY | 2022-06-04 10:02 | XMS_ITS | Encounter Summary ---
:1988 Author Organization [place] Address [facility] [place] [address] Care Team Providers Name Role Phone Blank Lemos MD Primary Care Provider Blank Lemos MD Unavailable Hardeep Cárdenas Unavailable Unavailable Encounter Details Date Type Department Care Team Description 12/13/2019 Virtual Visit [facility] Nevin Gilman ed anxiety Mental Health & MAGGI DohertySW disorder (Primary Dx) Addiction [facility] [address] [facility] [address] [place] [address] [address] [place] [address] (Work) [phone] Social History Tobacco Use Types Packs/Day Years [...] Gilman LICSW - 12/13/2019 2:00 PM CDT [facility] Primary Care: Integrated Behavioral Health December 13, [...] I will have full access to your [place] medical record during this entire phone call. [...] obtained for this service by care steam generating powerplant mechanic: yes. Behavioral Health Clinician Progress Note Patient Name: Rena Turner Service Type: Phone Visit Service Location: Phone call (patient / identified alcantara support person reached) Session Start Time: 2:05pm Session End Time: 2:30pm Session Length: 16 - 37 Attendees: Client Visit Activities (Refresh list every visit): [facility] Only Diagnostic Assessment Date: Next Session Treatment [...] minutes): No Interactive Complexity: No Crisis: No [facility] Patient: No Treatment Objective(s) Addressed [...] PTSD Symptom Management Current Stressors / Issues: [facility] introduced self and role to patient. Patient [...] date to begin behavior change Motivational Interviewing [place] Intervention: Expressed Empathy/Understanding, Supported Autonomy, Collaboration, Evocation, [...] time, however patient was encouraged to call [place] [phone] should there be a change in any [...] a follow up appointment with the clinic [facility] as needed. She was also given information about mental health symptoms andtreatment options . CD Recommendations: No indications of CD issues. DA [facility] ANTONIO Menjivar, [facility] documented in this encounter Plan of Treatment Not on filedocumented as of this encounter Visit Diagnoses Diagnosis Generalized anxiety disorder - Primary documented in this encounter Additional Health Concerns Assessment Noted Time PHQ-9 Depression Total Score: 15 12/08/2019 10:02 AM C DT documented as of this encounter Care Teams Community Affairs Director Relationship Specialty Start Date End Date Blank Lemos, PCP - General Internal Medicine 04/22/18 [facility] [place] [address] Blank Lemos, Assigned PCP 04/25/18 [facility] [place] [address] Hardeep Cárdenas Personal Advocate & 06/17/1901/30 Liaison (PAL) documented as of this encounter
--- OUTSIDE RECORDS SUMMARY | 2022-06-04 10:02 | XMS_ITS | Encounter Summary ---
:1990 Author Organization [place] Address [facility] [place] [address] Care Team Providers Name Role Phone Blank Lemos MD Primary Care Provider Blank Lemos MD Unavailable Hardeep Cárdenas Unavailable Unavailable Encounter Details Date Type Department Care Team Description 12/08/2019 Telephone [facility] LukeAshly, Health & Addiction [facility] [address] [place] [address] [address] [place] [address] Social [...] - 12/08/2019 10:48 AM CDT Phone Encounter [facility] attempted to reach patient, by PCP request. [...] documented as of this encounter Care Teams Conveyor Mechanic Relationship Specialty Start Date End Date Balnk Lemos, PCP - General Internal Medicine 04/22/18 [facility] [place] [address] Blank Lemos, Assigned PCP 04/25/18 [facility] [place] [address] Hardeep Cárdenas Personal Advocate & 06/17/1901/30 Liaison (PAL) documented as of this encounter
--- OUTSIDE RECORDS SUMMARY | 2022-06-04 10:02 | XMS_ITS | Encounter Summary ---
:1990 Author Organization [place] Address [facility] [place] [address] Care Team Providers Name Role Phone Lalita Preez MD Primary Care Provider Reason for Visit Reason Onset Date Comments Refill Request 07/13/2017 escitalopram (LEXAPR O) 20 MG tablet Encounter Details Date Type Department Care Team Description 07/13/2017 Refill [facility] Lalita Perez MD Refill Request Clinic [facility] (escitalopram (LEXAPRO) [address] [place] 3305 [facility] 20 MG tablet) [facility] [address] [place] [address] [place] [address] [phone] Social History Tobacco Use Types Packs/Day Years [...] Ashley - 07/31/2017 10:51 AM CST 3rd PLANTER Telephone Encounter - Anastasia Ashley - 07/24/2017 11:13 AM CST Left 2nd VM for pt to call back. She is over due for an office visit. PLANTER Telephone Encounter - Chrissie Arana - 07/17/2017 1:49 PM CST Left message for patient to call us back. She is due for an office visit. PLANTER Telephone Encounter - Lily Encarnacion MD - 07/15/2017 8:23 PM TREE PLANTER Depression and anxiety have not been addressed at since 04/2016 per notes. Was referred to Psychiatry at that time. Needs f/u. Rx filled for 30 days. Please let know. Lily Encarnacion MD Internal Medicine/Pediatrics PLANTER Telephone Encounter - Alissa Blank RN - [...] Dr. Encarnacion as she saw her last PLANTER Telephone Encounter - Lalita Merritt - 07/13/2017 9:29 AM CST WERO 01/28/2017 PLANTER documented in this encounter Plan of Treatment Not on filedocumented as of this encounter Visit Diagnoses Diagnosis Generalized anxiety disorder Bipolar I disorder (H) Bipolar I disorder, most recent episode (or current) unspecified documented in this encounter Additional Health Concerns Assessment Noted Time PHQ-9 Depression Total Score: 14 04/11/2016 7:23 AM CD T documented as of this encounter Care Teams Lending Advisor Relationship Specialty Start Date End Date Lalita Perez MD PCP - General Student in organized health 10/21/1404/21 care education/training program documented as of this encounter
--- OUTSIDE RECORDS SUMMARY | 2022-06-04 10:02 | XMS_ITS | Encounter Summary ---
:1990 Author Organization [place] Address [address] [place] [address] Care Team Providers Name Role Phone Blank Lemos MD Primary Care Provider Blank Lemos MD Unavailable Blank Lemos MD Unavailable Reason for Visit Reason Comments Medication Refill escitalopram (LEXAPRO) 20 MG tablet Encounter Details Date Type Department Care Team Description 08/06/2018 Refill [facility] on Refill Clinic Dev Reyes MD (escitalopram (LEXAPRO) 8303 [facility] 20 MG tab let) [place] [address] 6602 [facility] [place] [address] [place] [address] (Wo rk) Social History Tobacco [...] No positive test in last 12 months LER MCKAY documented in this encounter Plan of Treatment Not on filedocumented as of this encounter Visit Diagnoses Diagnosis Generalized anxiety disorder Bipolar I disorder (H) Bipolar I disorder, most recent episode (or current) unspecified documented in this encounter Additional Health Concerns Assessment Noted Time PHQ-9 Depression Total Score: 7 02/07/2018 7:00 AM CDT documented as of this encounter Care Teams Temperature Logging Operator Relationship Specialty Start Date End Date Blank Lemos MD PCP - General Internal Medicine 04/22/[address] [place] [address] [address] [place], [place] [address] Blank Lemos MD PCP - Assigned PCP 04/25/18 10/12/18 3305 [facility] [place] [phone] Blank Lemos MD Assigned PCP 04/25/18 [address] [facility] [place] [phone] documented as of this encounter
--- OUTSIDE RECORDS SUMMARY | 2022-06-04 10:02 | XMS_ITS | Encounter Summary ---
:1988 Author Organization [place] Address [facility] [place] [address] Care Team Providers Name Role Phone Blank Lemos MD Primary Care Provider Blank Lemos MD Unavailable Hardeep Cárdenas Unavailable Unavailable Reason for Visit Reason Comments Medication Refill Encounter Details Date Type Department Care Team Description 07/27/2019 Refill [facility] Blank Oliveros MD Medication Refill Dev 3305 [facility] 3305 [facility] [place] [address] [address] [place] [address] [phone] Social History Tobacco Use Types Packs/Day Years [...] in last 12 months Prescription approved per [facility] Refill Protocol. Tony Huang RN, BSN, PHN RY MANAGER documented in this encounter Plan of Treatment Not on filedocumented as of this encounter Visit Diagnoses Diagnosis Generalized anxiety disorder Bipolar I disorder (H) Bipolar I disorder, most recent episode (or current) unspecified documented in this encounter Additional Health Concerns Assessment Noted Time PHQ-9 Depression Total Score: 4 09/22/2018 3:08 PM BAKERY MANAGER documented as of this encounter Care Teams Chief Enterprise Architect Relationship Specialty Start Date End Date Blank Lemos, PCP - General Internal Medicine 04/22/18 [facility] [place] [phone] Blank Lemos, Assigned PCP 04/25/18 MD Zarate [facility] [place] [phone] Hardeep Cárdenas Personal Advocate & 11/8/19 6/23 /20 Liaison (PAL) documented as of this encounter
--- OUTSIDE RECORDS SUMMARY | 2022-06-04 10:02 | XMS_ITS | Encounter Summary ---
:1990 Author Organization [place] Address [facility] [place] [address] Care Team Providers Name Role Phone Blank Lemos MD Primary Care Provider Blank Lemos MD Unavailable Blank Lemos MD Unavailable Hardeep Cárdenas Unavailable Unavailable Kathleen Lacy CNM Unavailable Anabell Shannon Unavailable Unavailable Rand Kam APRN CNM Unavailable Sharita Frias MD Unavailable Kathleen Lacy CNM Unavailable Kathleen Lacy CNM Unavailable Sharita Frias MD Unavailable Encounter Details Date Type Department Care Team Description 08/09/2018 Telephone [facility] Blank Oliveros MD [place] [address] [facility] 3305 [facility] [place] [address] [address] [place] [address] [phone] Social History Tobacco Use Types Packs/Day Years [...] documented as of this encounter Care Teams Boat Tester Relationship Specialty Start Date End Date Blank Lemos, PCP - General Internal Medicine 04/22/[address] [place] [address] [place] [phone] Blank Lemos, PCP - Assigned PCP 04/25/[address] [place] [address] [place] [phone] Blank Lemos, Assigned PCP 04/25/[address] [place] [address] [place] [address] Hardeep Cárdenas Personal Advocate & 06/17/1901/30 Liaison (PAL) Kathleen Lacy CNM Assigned OBGYN Provider 06/01/20 11/23/21 [address] [place], [place] [phone] Anabell Shannon Personal Advocate & 3/18/21 Liaison (PAL) Rand Kam, Assigned OBGYN Provider 11/24/21 12/28/21 LEAD MINER BLASTING CNM [address] [place], [place] [phone] Sharita Frias, Assigned OBGYN Provider 01/04/22 01/17/22 [address] [place], [place] [phone] Kathleen Lacy CNM Assigned OBGYN Provider 12/29/21 01/03/22 [address] [place], [place] 7[address] Kathleen Lacy CNM Assigned OBGYN Provider 01/18/22 01/24/22 [address] [place] [address] Sharita Frias, Assigned OBGYN Provider 01/25/22 [address] [place], [place] [phone] documented as of this encounter
--- OUTSIDE RECORDS SUMMARY | 2022-06-04 10:02 | XMS_ITS | Encounter Summary ---
:1990 Author Organization [place] Address [address] [place] [address] Care Team Providers Name Role Phone Blank Lemos MD Primary Care Provider Reason for Visit Reason Comments Forms UTI Encounter Details Date Type Department Care Team Description 04/22/2018 Office Visit [facility] Blank Lemos Dysuria ( Primary Dx); Clinic Dev Camp MD Acute cystitis without hematuria; [address] [place] [address] [facility] Other migraine without status migrainosus, not intractable [address] [facility] [address] [place] [address] [place] [address] Social History Tobacco Use [...] this winter for physical/PAP. Blank Lemos MD [facility] DEV documented in this encounter [...] CDT CLINICS DEV Squamous Few FEW^Few 04/22/2018 [facility] Epithelial /LPF /LPF 9:01 AM CDT CLINICS [place] N Urine Bacteria Urine Few (A) NEG^Negati 04/22/2018 [facility] ve /HPF 9:01 AM CDT CLINICS DEV Specimen Anatomical Collection Method Collection Time Receive d Time (Source) Location / / Volume Laterality 04/22/2018 8:53 AM 8 8:55 CDT AM CDT Blank Lemos MD LAB - URINE ORDERABLES Performing Organization Address City/State/ZIP Code Phon e Number [facility] DEV [address] [place] [address] (ABNORMAL) UA reflex to Microscopic and Culture (04/22/2018 8:53 AM CDT) Patholo gist Method Time Signature Color Urine Yellow 04/22/2018 [facility] 9:01 AM CDT CLINICS DEV Appearance Urine Clear 04/22/2018 [facility] 9:01 AM CDT CLINICS DEV Glucose Urine Negative NEG^Negat 04/22/2018 [facility] yakelin mg/dL 9:01 AM CDT CLINICS DEV Bilirubin Urine Negative NEG^Negat 04/22/2018 [facility] [place]elin 9:01 AM CDT CLINICS DEV Ketones Urine Negative NEG^Negat 04/22/2018 [facility] [place]elin mg/dL 9:01 AM CDT CLINICS DEV Specific Dupo 1.020 1.003 - 04/22/2018 [facility] Urine 1.035 9:01 AM CDT CLINICS DEV Blood Urine Moderate (A) NEG^Negat 04/22/2018 [facility] [place]elin 9:01 AM CDT CLINICS DEV pH Urine 7.0 5.0 - 7.0 04/22/2018 [facility] pH 9:01 AM CDT CLINICS DEV Protein Albumin Negative NEG^Negat 04/22/2018 [facility] Urine yakelin mg/dL 9:01 AM CDT CLINICS DEV Urobilinogen 0.2 0.2 - 1.0 04/22/2018 [facility] Urine EU/dL 9:01 AM CDT CLINICS DEV Nitrite Urine Negative NEG^Negat 04/22/2018 [facility] [place]elin 9:01 AM CDT CLINICS DEV Leukocyte Trace (A) NEG^Negat 04/22/2018 [facility] Esterase Urine yakelin 9:01 AM CDT CLINICS DEV Source Midstream 04/22/2018 [facility] Urine 8:55 AM CDT CLINICS DEV Specimen (Source) Anatomical Collection Method Collection Time Re ceived Time Location / / Volume Laterality Examination of 04/22/2018 8:53 04/22/2018 8:55 midstream urine AM CDT AM CDT specimen (procedure) Blank Lemos MD LAB - URINE ORDERABLES Performing Organization Address City/State/ZIP Code Phon e Number [facility] DEV [address] [facility] [place] [address] [phone] documented in this encounter Visit Diagnoses Diagnosis Dysuria - Primary Acute cystitis without hematuria Acute cystitis Other migraine without status migrainosu s, not intractable documented in this encounter Additional Health Concerns Assessment Noted Time PHQ-9 Depression Total Score: 7 02/07/2018 7:00 AM CDT documented as of this encounter Care Teams Conditioning Machine Operator Relationship Specialty Start Date End Date Blank Lemos MD PCP - General Internal Medicine 04/22/[address] [place] [address] [place] [phone] documented as of this encounter
--- OUTSIDE RECORDS SUMMARY | 2022-06-04 10:02 | XMS_ITS | Encounter Summary ---
:1990 Author Organization [place] Address [address] [place] [address] Care Team Providers Name Role Phone Blank [...] Depression Total Score: 4 09/22/2018 3:08 PM SURVEILLANCE SENSOR OPERATOR documented as of this encounter Care Teams Rv Servicer Relationship Specialty Start Date End Date Blank Lemos MD PCP - General Internal Medicine 04/22/[address] [place] [address] [place] [address] Blank Lemos MD PCP - Assigned PCP 04/25/18 10/12/[address] [place] [address] [place] [address] Blank Lemos MD Assigned PCP 04/25/[address] [place] [address] [place] [phone] documented as of this encounter
--- OUTSIDE RECORDS SUMMARY | 2022-06-04 10:02 | XMS_ITS | Encounter Summary ---
:1990 Author Organization [place] Address [facility] [place] [address] Care Team Providers Name Role Phone Blank Lemos MD Primary Care Provider Blank Lemos MD Unavailable Hardeep Cárdenas Unavailable Unavailable Reason for Visit Reason Comments Medication Refill escitalopram (LEXAPRO) 20 MG tablet Encounter Details Date Type Department Care Team Description 10/28/2019 Refill [facility] Blank Lemos, [place] dication Refill Clinic Dev [place] (escitalopram (LEXAPRO) [address] [place] [address] [facility] 20 MG tablet ) [facility] [address] [place] [address] [place] [address] [phone] Social History Tobacco Use Types Packs/Day Years [...] AM) Adult physical with [facility] [address] [place] [address] [address] [facility] [address] documented in this encounter Plan of Treatment Not on filedocumented as of this encounter Visit Diagnoses Diagnosis Generalized anxiety disorder Bipolar I disorder (H) Bipolar I disorder, most recent episode (or current) unspecified documented in this encounter Additional Health Concerns Assessment Noted Time PHQ-9 Depression Total Score: 4 09/22/2018 3:08 PM CHEMICAL COMPOUNDER documented as of this encounter Care Teams Pickler Helper Relationship Specialty Start Date End Date Blank Lemos, PCP - General Internal Medicine 04/22/[address] [place] [address] [place] [address] Blank Lemos, Assigned PCP 04/25/[address] [place] [address] [address] [place] [address] Hardeep Cárdenas Personal Advocate & 06/17/1901/30 Liaison (PAL) documented as of this encounter
--- OUTSIDE RECORDS SUMMARY | 2022-06-04 10:02 | XMS_ITS | Encounter Summary ---
:1990 Author Organization [place] Address [facility] [place] [address] Care Team Providers Name Role Phone Lalita Perez MD Primary Care Provider Reason for Visit Reason Comments Medication Refill escitalopram (LEXAPRO) 20 MG tablet Encounter Details Date Type Department Care Team Description 02/05/2018 Refill [facility] Dev Reyes MD (escitalopram (LEXAPRO) 3[address] [facility] 20 MG tab let) [facility] [address] [place] [address] K[place]AN Méndez [phone] [place] [address] (Wo rk) Social History Tobacco [...] 02/05/2018 3:46 PM CDT Sent PHQ-9 via Crunchbuttonhart. Brii Vazquez RN, BSN, N [facility] RN Telephone Encounter - Douglas James [...] as of this encounter Care Teams Electric Appliance Installer Relationship Specialty Start Date End Date Lalita Perez MD PCP - General Student in [facility] 10/21/1404/21 care education/training program documented as of this encounter
--- OUTSIDE RECORDS SUMMARY | 2022-06-04 10:02 | XMS_ITS | Encounter Summary ---
:1990 Author Organization [place] Address [address] [facility] [place] [address] Care Team Providers Name Role Phone Blank Lemos MD Primary Care Provider Blank Lemos MD Unavailable Blank Lemos MD Unavailable Reason for Visit Reason Comments Urgent Care Urinary Problem possible uti; dysuria at end of urination. Was treated x 1 month ago Pharyngitis neck, throat, and ear pain Encounter Details Date Type Department Care Team Description 04/29/2018 Office Visit [facility] Phillip Crowder Dysuria (Primary Dx); Urgent Care Dev Bob PA-C Throat pain [address] [address] [place], [place] [address] [address] [place] [address] Social History Tobacco Use Types Packs/Day [...] the groin Date Last Reviewed: 08/10/2016 ?? [id number] [email or web address]. [address] [place] [address]. All rights reserved. This information is not [...] NEG^Negative Ketones Urine Negative NEG^Negative mg/dL Specific [place] Urine 1.010 1.003 - 1.035 Blood Urine [...] Component Value Ref Test Analysis Performed At eÇift Range Method Time Signature Specimen Midstream Urine [...] Code Phon e Number INFECTIOUS DISEASES [address] [place] [address] DIAGNOSTIC LABORATORY, [facility] INFECTIOUS DISEASE [address] [place] [address], [facility] DIAGNOSTIC LABORATORY Wet prep (04/29/2018 5:22 PM CDT) eÇift Method Time Signature Specimen Vagina [facility] Description [...] MICRO GENERAL ORDERA BLES Performing Organization Address [facility] Phon e Number [facility] [address] [place] [address] [phone] Beta strep group A culture (04/29/2018 4:22 PM CDT) Component Value Ref Test Analysis Performed At Patholo gist Range Method Time Signature Specimen Throat [facility] DEV Culture Micro No beta 04/30/2018 [facility] hemolytic 6:00 PM CDT CLINICS Streptococcus DEV Group A isolated Specimen Anatomical Collection Method Collection Time Receive d Time (Source) Location / / Volume Laterality Specimen from 04/29/2018 4:22 PM 04/29/20 18 4:24 throat CDT PM CDT (specimen) Phillip Crowder PA-C LAB - MICRO GENERAL ORDERA BLESerena Performing Organization Address [facility]/ZIP Code Phon e Number [facility] [address] [place] [phone] Strep, Rapid Screen (04/29/2018 4:05 PM CDT) Component Value Ref Test Analysis Performed At [facility] Range Method Time Signature Specimen Throat [facility] DEV Rapid Strep A NEGATIVE: No 04/29/2018 [place] Screen Group A 4:23 PM CDT CLINICS streptococcal DEV antigen detected by immunoassay, await culture report. Specimen Anatomical Collection Method Collection Time Receive d Time (Source) Location / / Volume Laterality Specimen from 04/29/2018 4:05 PM 04/29/20 18 4:07 throat CDT PM CDT (specimen) Phillip Crowder PA-C LAB - MICRO GENERAL ORDERA BLESerena Performing Organization Address City/[facility]/ZIP Code Phon e Number [facility] [address] [place] [address] [phone] Urine Microscopic (04/29/2018 3:45 PM [...] LAB - URINE ORDERABLES Performing Organization Address City/[facility]/ZIP Code Phon e Number [address] [address] [phone] (ABNORMAL) UA reflex to Microscopic and Culture (04/29/2018 3:45 PM CDT) Patholo gist Method Time Signature Color Urine Yellow 04/29/2018 [place] 4:35 PM CDT CLINICS DEV Appearance Urine Clear 04/29/2018 [place] 4:35 PM CDT CLINICS DEV Glucose Urine Negative NEG^Negat 04/29/2018 [place] yakelin mg/dL 4:35 PM CDT CLINICS DEV Bilirubin Urine Negative NEG^Negat 04/29/2018 [place] yakelin 4:35 PM CDT CLINICS DEV Ketones Urine Negative NEG^Negat 04/29/2018 [place] yakelin mg/dL 4:35 PM CDT CLINICS DEV Specific [place] 1.010 1.003 - 04/29/2018 [place] Urine 1.035 4:35 PM CDT CLINICS DEV Blood Urine Negative NEG^Negat 04/29/2018 [place] yakelin 4:35 PM CDT CLINICS DEV pH Urine 6.5 5.0 - 7.0 04/29/2018 [place] pH 4:35 PM CDT CLINICS DEV Protein Albumin Negative NEG^Negat 04/29/2018 [place] Urine yakelin mg/dL 4:35 PM CDT CLINICS DEV Urobilinogen 0.2 0.2 - 1.0 04/29/2018 [place] Urine EU/dL 4:35 PM CDT CLINICS DEV Nitrite Urine Negative NEG^Negat 04/29/2018 [place] yakelin 4:35 PM CDT CLINICS DEV Leukocyte Trace (A) NEG^Negat 04/29/2018 [place] Esterase Urine yakelin 4:35 PM CDT CLINICS DEV Source Midstream 04/29/2018 [place] Urine 3:47 PM CDT CLINICS DEV Specimen (Source) Anatomical Collection Method Collection Time Re ceived Time Location / / Volume Laterality Examination of 04/29/2018 3:45 04/29/2018 3:47 midstream urine PM CDT PM CDT specimen (procedure) Phillip Crowder PA-C LAB - URINE ORDERABLES Performing Organization Address City/State/[facility] Code Phon e Number [facility] DEV [address] [facility] [place] [address] documented in this encounter Visit Diagnoses Diagnosis Dysuria - Primary Throat pain documented in this encounter Additional Health Concerns Assessment Noted Time PHQ-9 Depression Total Score: 7 02/07/2018 7:00 AM CDT documented as of this encounter Care Teams Logging Worker Relationship Specialty Start Date End Date Blank Lemos MD PCP - General Internal Medicine 04/22/[address] [place] [address] [place] [id number] Blank Lemos MD PCP - Assigned PCP 04/25/18 10/12/[address] [place] [address] [place] [address] Blank Lemos MD Assigned PCP 04/25/[address] [place] [address] [place] [id number] documented as of this encounter
--- OUTSIDE RECORDS SUMMARY | 2022-06-04 10:02 | XMS_ITS | Encounter Summary ---
:1990 Author Organization [place] Address [facility] [place] [address] Care Team Providers Name Role Phone Lalita Perez MD Primary Care Provider Reason for Visit Reason Onset Date Comments Appointment 04/01/2018 scheduled for 04/08 at 2.20 pm Encounter Details Date Type Department Care Team Description 04/01/[address] [facility] Blank Lemos nt (scheduled Clinic Dev Camp MD for 04/08 at [address] [place] 3305 [facility] 2.20 pm) [facility] [address] K[place]DEZ [address] [place]én[place] [address] [phone] Social History Tobacco Use Types Packs/Day Years [...] PM CDT SHORT with Blank Lemos MD [facility] [address] [place] [address] [address] [facility] [address] Kristie Kapadia RN Message handled by Nurse Triage. Telephone Encounter - Blank Lemos MD - 04/05/2018 9:05 PM CDT Could see her 220pm on . Blank Lemos MD Internal Medicine/Pediatrics [facility] Telephone Encounter - Monique Leslie - [...] the form?: please complete and call for rock picker at [phone] Additional comments: please complete and call for rock picker at [phone] Call taken on 04/01/2018 at 4:48 PM by Evelyn Olvera documented in this encounter Plan of Treatment Not on filedocumented as of this encounter Visit Diagnoses Not on filedocumented in this encounter Additional Health Concerns Assessment Noted Time PHQ-9 Depression Total Score: 7 02/07/2018 7:00 AM CDT documented as of this encounter Care Teams Manager Of Radiology Relationship Specialty Start Date End Date Lailta Perez MD PCP - General Student in [employer] 10/21/1404/21 care education/training program documented as of this encounter
--- OUTSIDE RECORDS SUMMARY | 2022-06-04 10:02 | XMS_ITS | Encounter Summary ---
:1990 Author Organization [place] Address [facility] [place] [address] Care Team Providers Name Role Phone Lalita Perez MD Primary Care Provider Reason for Visit Reason Comments Anxiety Depression Encounter Details Date Type Department Care Team Description 08/17/2017 Office Visit [facility] Lily Encarnacion anxiety disorder; Clinic Dev Reyes MD Bipolar I disorder (H); [address] [facility] Migraine without aura and without status migrainosus, not intractable [facility] [address] [place] [address] [address] [phone] [place], [place] [address] Social History Tobacco Use Types Packs/Day [...] Comments Blood Pressure 100/64 08/17/2017 4:47 PM AIR EXPORT OPERATIONS AGENT Pulse 86 08/17/2017 4:47 PM AIR EXPORT OPERATIONS AGENT Temperature 36.9 ??C (98.4 ??F) 08/17/2017 4:47 PM AIR EXPORT OPERATIONS AGENT Respiratory Rate - - Oxygen Saturation 99% 08/17/2017 4:47 PM AIR EXPORT OPERATIONS AGENT Inhaled Oxygen Concentration - - Weight 73.3 kg (161 lb 11.2 oz) 08/17/2017 4:47 PM AIR EXPORT OPERATIONS AGENT Height 161.3 cm (5' 3.5) 08/17/2017 4:47 PM AIR EXPORT OPERATIONS AGENT Body Mass Index 28.19 08/17/2017 4:47 PM AIR EXPORT OPERATIONS AGENT documented in this encounter Patient Instructions Patient InstructionsSerumLily MD - 08/17/2017 4:40 PM AIR EXPORT OPERATIONS AGENT 1. Refilled lexapro for 6 months - can complete depression screen over the phone or mychart in 6 months if doing well and refill 2. If not improving, would refer to Psychiatric Nurse practitioner in [place] to discuss other options 3. Refilled topamax 4. Follow-up in 1 year EXPORT OPERATIONS AGENT documented in this encounter Progress Notes Lily [...] referred to psychiatry but did not go. [place] had good response to Lexapro and feels [...] 04/10/2016 08/17/2017 Total Score 11 13 PHQ-9 Polish PHQ-9 Any Language GAD7 Suicide Assessment Five-step [...] - sooner if not controlled Lily Encarnacion [facility] DEV EXPORT OPERATIONS AGENT documented in this encounter Nursing Notes Saira [...] kg). Medication Reconciliation: complete Saira Singh LPN EXPORT OPERATIONS AGENT documented in this encounter Plan of [...] documented as of this encounter Care Teams Brazing Machine Operator Relationship Specialty Start Date End Date Lalita Perez MD PCP - General Student in [facility] 10/21/1404/21 care education/training program documented as of this encounter
--- OUTSIDE RECORDS SUMMARY | 2022-06-04 10:02 | XMS_ITS | Encounter Summary ---
:1990 Author Organization [place] Address [facility] [place] [address] Care Team Providers Name Role Phone Blank Lemos MD Primary Care Provider Blank Lemos MD Unavailable Hardeep Cárdenas Unavailable Unavailable Reason for Referral Mental Health Outpatient (Routine) - Closed Specialty Diagnoses / Procedures Referred By Contact Refer red To Contact Diagnoses Generalized anxiety disorder Bipolar I disorder (H) Blank Lemos MD [address] [place] [address] [place] [address] Referral ID Status Reason Start Date Expiration Date Visits Requ ested Visits Authorized [id number] Closed 12/08/2019 12/07/2020 1 1 Scheduling Instructions ken please - patient with severe social anxiety - unable to leave house. Reason for Visit Reason Onset Date Comments Telephone 12/08/2019 Anxiety 12/08/2019 Encounter Details Date Type Department Care Team Description 12/08/2019 Virtual Visit [facility] Blank Lemos Insomnia , unspecified type (Primary Dx); Clinic Dev Camp MD Generalized anxiety disorder; [address] [place] [address] Bipol ar I disorder (H); [facility] Migraine without aura and without status migrainosus, not intractable [address] [place] [address] [place] [address] Social History Tobacco Use [...] Trazodone to help with sleep. Someone from [facility] will be reaching out to you soon. Letter should be available in PhishMe. I will have someone reach out to you to get a video visit scheduled in about a month. Take care! 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 See the scanned image in the medical record. Rena Turner complains of Chief Complaint Patient presents with ? Anxiety I have reviewed and updated the patient's Past Medical History, Social History, Family History and Medication List. 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 I was just called back to work to start next week. Since COVID-19 has begun my anxiety has skyrocketed being in public. I think this is something that may pass in the future, but I was wondering if I could get a Drs note from you to stay home for the time being, and possibly a referral to the behavioral clinic in [place] (if they are open right now). I [...] - Adult; Outpatient Treatment; Individual/Couples/Family/Group Therapy/Health Psychology; [facility]: [facility] ; We will contact you to schedule the appointment or please call with any questions (F31.9) Bipolar I disorder (H) Comment: see above Plan: escitalopram (LEXAPRO) 20 MG tablet, MENTAL HEALTH REFERRAL - Adult; Outpatient Treatment; Individual/Couples/Family/Group Therapy/Health Psychology; [facility]: [facility] ; We will contact you to schedule [...] Name Type Priority Associated Diagnoses Order S [facility] REFERRAL - Referral Routine Generalized anxi ety Ordered: 12/08/2019 Adult; Outpatient disorder Treatment; Bipolar I disorder (H) Individual/Couples/Famil y/Group Therapy/Health Psychology; [facility]: [facility] ; We will contact you to schedule [...] documented as of this encounter Care Teams Relations Mgr Relationship Specialty Start Date End Date Blank Lemos, PCP - General Internal Medicine 04/22/[address] [place] [address] [place] [address] Blank Lemos, Assigned PCP [facility] [place] [address] Hardeep Cárdenas Personal Advocate & 06/17[birth year]01/30 Liaison (PAL) documented as of this encounter
--- OUTSIDE RECORDS SUMMARY | 2022-06-04 10:02 | XMS_ITS | Encounter Summary ---
:1990 Author Organization [place] Address [facility] [place] [address] Care Team Providers Name Role Phone Blank Lemos MD Primary Care Provider Blank Lemos MD Unavailable Blank Lemso MD Unavailable Reason for Visit Reason Onset Date Comments Pharyngitis 04/27/2018 Encounter Details Date Type Department Care Team Description 04/27/2018 Telephone [facility] Blank Oliveros MD Pharyngitis [place] [address] [facility] 3305 [facility] [place] [address] [address] [place] [address] [phone] Social History Tobacco Use Types Packs/Day Years [...] documented as of this encounter Care Teams Fire Support Man Relationship Specialty Start Date End Date Blank Lemos MD PCP - General Internal Medicine 04/22/[address] [place] [address] [place] [address] Blank Lemos MD PCP - Assigned PCP 04/25/18 10/12/[address] [place] [address] [place] R[place] [address] Blank Lemos MD Assigned PCP 04/25/[address] [place] [address] [place] [phone] documented as of this encounter
--- OUTSIDE RECORDS SUMMARY | 2022-06-04 10:03 | XMS_ITS | Encounter Summary ---
:1990 Author Organization [place] Address [facility] [place] [address] Care Team Providers Name Role Phone Lalita Perez MD Primary Care Provider Reason for Referral Consultation - Closed Specialty Diagnoses / Procedures Referred By Contact Refer red To Contact Diagnoses Migraine without aura and without status migrainosus, not intractable Blank Lemos MD [address] [facility] [place] [address] [place] [address] Phone: Fax: Referral ID Status Reason Start Date Expiration Date Visits Requ ested Visits Authorized [id number] Closed 08/28/2016 08/28/2017 1 1 UDER Reason for Visit Reason Comments Headache Ear Problem Encounter Details Date Type Department Care Team Description 08/28/2016 Office Visit [facility] Blank Lemos Migraine without aura and without status migrainosus, not intractable (Primary Dx); Clinic Dev Camp MD ETD (eustachian tube dysfunction), [address] [place] [address] [place] [address] Social History Tobacco Use Types [...] Comments Blood Pressure 111/77 08/28/2016 2:55 PM EXTRUDER Pulse 84 08/28/2016 2:55 PM EXTRUDER Temperature 36.9 ??C (98.5 ??F) 08/28/2016 2:55 PM EXTRUDER Respiratory Rate - - Oxygen Saturation 98% 08/28/2016 2:55 PM EXTRUDER Inhaled Oxygen Concentration - - Weight 88.5 kg (195 lb 3.2 oz) 08/28/2016 2:55 PM EXTRUDER Height 160.7 cm (5' 3.25) 08/28/2016 2:55 PM EXTRUDER Body Mass Index 34.31 08/28/2016 2:55 PM EXTRUDER documented in this encounter Patient Instructions Patient InstructionsBlank Lemos MD - 08/28/2016 3:20 PM CST Increase topamax to 100mg twice daily. Make appt for neurology (if things get better, can always cancel appt). Use sudafed for continued ear symptoms. Blank Lemos MD Internal Medicine/Pediatrics [facility] UDER documented in this encounter Progress Notes Blank [...] list, Allergies, and Medical/Social/Surgical histories reviewed in [facility] andupdated as appropriate. ROS: Constitutional, HEENT, [...] ear symptoms. Blank Lemos MD Internal Medicine/Pediatrics [facility] Blank Lemos MD [facility] UDER documented in this encounter Nursing Notes Saira [...] completed using cuff size: christine Singh LPN UDER documented in this encounter Plan of Treatment Scheduled Referrals Name Type Priority Associated Diagnoses Order S [facility] NEUROLOGY ADULT Referral Routine Migraine without aura [...] documented as of this encounter Care Teams Lock Assembler Relationship Specialty Start Date End Date Lalita Perez MD PCP - General Student in organized health 10/21/1404/21 care education/training program documented as of this encounter
--- OUTSIDE RECORDS SUMMARY | 2022-06-04 10:03 | XMS_ITS | Encounter Summary ---
:1990 Author Organization [place] Address [address] [place] [address] Care Team Providers Name Role Phone Lalita Perez MD Primary Care Provider Reason for Visit Reason Comments Cough x 10 days cough. states in t he last 2 days been coughing up clear mucus with blood in it. Encounter Details Date Type Department Care Team Description 04/19/2016 Office Visit [facility] Richard Huntley, Blood in sputum Care (Primary Dx) [address] [facility] [place] [address] [facility] [phone] [facility] [address] [place] [phone] (Wo rk) Social History Tobacco Use [...] Huntley MD - 04/19/2016 8:27 PM CDT [facility] Progress Note Richard Huntley MD, MPH 04/19/2016 History: Rena Turner is a pleasant 26 year old year old female with a chief complaint of cough ,dyspneax 2 days. She states that she has noted blood in the sputum that she expectorates. No fever or chills. No night sweats or chills. No weight loss. No active TB in immediate sound effects person is referred. No recent surgery or distant travel or immobilization is referred. No FH or personal HX of arterial orvenous thrombosis is referred. She has been on BCP x 8 years. NOT on any anticoagulant. No Hx of bleeding tendency or easy bruisability. No smoking history. Assessment and Plan: Cough,dyspnea and blood in sputum: The patient was directed to [facility] for further evaluation and management. The patient agrees w this plan. I spoke w Dr. Dunn at [facility] regarding the patient by phone [...] documented as of this encounter Care Teams Wicker Molded Candles Relationship Specialty Start Date End Date Lalita Perez MD PCP - General Student in [employer] 10/21/1404/21 care education/training program documented as of this encounter
--- OUTSIDE RECORDS SUMMARY | 2022-06-04 10:03 | XMS_ITS | Encounter Summary ---
:1990 Author Organization [place] Address [address] [place] [address] Care Team Providers Name Role Phone Lalita Perez MD Primary Care Provider Reason for Visit Reason Onset Date Comments Refill Request 07/10/2016 Encounter Details Date Type Department Care Team Description 07/10/2016 Refill [facility] Lalita [place] MD Refill Request [address] [facility] - [place] [address] 9792 [facility] [phone] [facility] [place] [address] (Wo rk) [...] Kristie Kapadia RN - 07/10/2016 12:32 PM SMALL ORDER CUTTER topamax Last Written Prescription Date: 06/16/16 Last Fill Quantity: 70, # refills: 0 Last Office Visit with [facility], [facility] or [facility] prescribing provider: 06/16/16 BP Readings from Last [...] 70 tablet; Refill: 0 Prescription approved per [facility] Refill Protocol. Kristie Kapadia RN Message handled by Nurse Triage. L ORDER CUTTER documented in this encounter Plan of Treatment [...] documented as of this encounter Care Teams Evp Relationship Specialty Start Date End Date Lalita Perez MD PCP - General Student in [employer] [facility] 10/21/1404/21 care education/training program documented as of this encounter
--- OUTSIDE RECORDS SUMMARY | 2022-06-04 10:03 | XMS_ITS | Encounter Summary ---
:1990 Author Organization [place] Address [facility] [place] [address] Care Team Providers Name Role Phone Lalita Perez MD Primary Care Provider Encounter Details Date Type Department Care Team Description 04/09/2015 Orders Only [facility] Eag an Routine general medical [address] [place] [address] care facility [phone] Social History Tobacco Use Types Packs/Day Years [...] 210 (H) <200 mg/dL [facility] Comment: LDL Cholesterol is the primary guide to therapy. The NCEP recommends further evaluation of: patients with cholesterol greater than 200 mg/dL if additional risk facto rs are present, cholesterol greater than 240 mg/dL, triglycerides greater than 1 50 mg/dL, or HDL less than 40 mg/dL. Triglycerides 234 (H) 0 - 150 mg/dL [place] [facility] HDL Cholesterol 50 (L) >50 mg/dL [place] [facility] LDL Cholesterol Calculated 113 0 - 129 mg/dL [facility] Comment: LDL Cholesterol is the primary guide to therapy: LDL-cholesterol goal in high risk patients is <100 mg/dL and in very high risk patients is <70 mg/dL. VLDL-Cholesterol 47 (H) 0 - 30 mg/dL [place] Feder[facility] Cholesterol/HDL Ratio 4.2 0.0 - 5.0 [facility] Specimen Anatomical Collection Method Collection Time Receive d Time (Source) Location / / Volume Laterality Blood specimen 04/09/2015 8:24 AM 015 8:29 (specimen) CDT AM CDT Lalita Perez MD LAB - BLOOD ORDERABLES Performing Organization Address City/State/ZIP Code Phon e Number [facility] [address] [place] [address] Glucose (04/09/2015 8:24 AM CDT) athologist Signature Glucose 87 70 - 99 [facility] mg/dL [facility] Specimen Anatomical Collection Method Collection Time Receive d Time (Source) Location / / Volume Laterality Blood specimen 04/09/2015 8:24 AM 015 8:29 (specimen) CDT AM CDT Lalita Perez MD LAB - BLOOD ORDERABLES Performing Organization Address City/State/ZIP Code Phon e Number [facility] [address] [place] [address] documented in this encounter Visit Diagnoses Diagnosis Routine general medical examination at a health care facility documented in this encounter Care Teams Gardening Supervisor Relationship Specialty Start Date End Date Lalita Perez MD PCP - General Student in [facility] 10/21/1404/21 care education/training program documented as of this encounter
--- OUTSIDE RECORDS SUMMARY | 2022-06-04 10:03 | XMS_ITS | Encounter Summary ---
:1988 Author Organization [place] Address [address] [place] [address] Care Team Providers Name Role Phone Lalita Perez MD Primary Care Provider Reason for Visit Reason Onset Date Comments Medication Request 08/05/2016 alternative Encounter Details Date Type Department Care Team Description 08/05/2016 Telephone [facility] Lalita Perez MD Medication Request Clinic [facility] (alternative) [address] [facility] [address] [place] [address] [place] [address] [phone] Social History Tobacco Use Types Packs/Day Years [...] sent to the pharmacy. Kelly Hernandez RN OR STAFF ACCOUNTANT Telephone Encounter - Emmett Gallegos MD - 08/05/2016 7:24 PM CST alternative sent OR STAFF ACCOUNTANT Telephone Encounter - Kristie Kapadia RN - 08/05/2016 6:[address] Gallegos, please review-ok to wait for UC, or could an alternative medicine be sent earlier? Kristie Kapadia RN Message handled by Nurse Triage. OR STAFF ACCOUNTANT Telephone Encounter - Kristie Kapadia RN - 08/05/2016 6:24 PM CST Patient calls. Was prescribed ciprofloxacin-dexamethasone (CIPRODEX) otic suspension for an ear infection. The medication is 200 dollars, asking for an alternative medication. Please send. Kristie Kapadia RN Message handled by Nurse Triage. OR STAFF ACCOUNTANT documented in this encounter Plan of Treatment Not on filedocumented as of this encounter Visit Diagnoses Diagnosis Acute swimmer's ear of right side - Prim ronak documented in this encounter Additional Health Concerns Assessment Noted Time PHQ-9 Depression Total Score: 14 04/11/2016 7:23 AM CD T documented as of this encounter Care Teams Foreign Student Adviser Teacher Relationship Specialty Start Date End Date Lalita Perez MD PCP - General Student in [employer] 10/21/1404/21 care education/training program documented as of this encounter
--- OUTSIDE RECORDS SUMMARY | 2022-06-04 10:03 | XMS_ITS | Encounter Summary ---
:1990 Author Organization [place] Address [facility] [place] [address] Care Team Providers Name Role Phone Lalita Perez MD Primary Care Provider Reason for Visit Reason Comments Sinus Problem Encounter Details Date Type Department Care Team Description 04/29/2016 Office Visit [facility] Gonzalo Yang MD Acute suppurative otitis media of right ear without spontaneous rupture of tympanic membrane, recurrence not specified (Primary Dx); Dev [address] [facility] Acute non-recurrent maxillar y sinusitis; [address] [facility] [place] [address] [place] [address] Social History Tobacco Use [...] to reduce your cough Gonzalo Yang MD [facility] documented in this encounter Nursing Notes Honey [...] of tympanic membrane, recurrence not specified - [facility] Acute non-recurrent maxillary sinusitis Cough documented in this encounter Additional Health Concerns Assessment Noted Time PHQ-9 Depression Total Score: 14 04/11/2016 7:23 AM CD T documented as of this encounter Care Teams Frame Table Operator Helper Relationship Specialty Start Date End Date Lalita Perez MD PCP - General Student in organized health 10/21/1404/21 care education/training program documented as of this encounter
--- OUTSIDE RECORDS SUMMARY | 2022-06-04 10:03 | XMS_ITS | Encounter Summary ---
:1990 Author Organization [place] Address [address] [place] [address] Care Team Providers Name Role Phone Joseph Montague MD Primary Care Provider Reason for Visit Reason Comments Physical Encounter Details Date Type Department Care Team Description 04/05/2015 Office Visit [facility] Joseph Montague MD Routine general medical examination at a health care facility (Primary Dx); [facility] (generalized anxiety dis order); [address] [place]ANDIN Contraceptive management [place] [address] [facility] [phone] [facility] [place] [address] Social History [...] this encounter Patient Instructions Patient InstructionsKiersten Oliveira, SOCIAL SCIENCE INSTRUCTOR - 04/05/2015 3:22 PM CDT We treva [...] HDL, LDL, TRIG, CHOLHDLRATIO in the last 24383 hours. Reviewed orders with patient. Reviewed health maintenance and updated orders accordingly - Yes Mammo Decision Support: Mammogram not appropriate for this patient based on age. Last Mammo:No results found. History of abnormal Pap smear: NO - age 21-29 PAP every 3 years recommended All Histories reviewed and updated in [facility]. Past Medical History Diagnosis Date ??? Generalized [...] D/w Dr. Mccormick, attending Joseph Montague MD [facility] CHRISTINA documented in this encounter Nursing Notes [...] athologist Signature Cholesterol 210 (H) <200 mg/dL [facility] Comment: LDL Cholesterol is the primary guide to therapy. The NCEP recommends further evaluation of: patients with cholesterol greater than 200 mg/dL if additional risk facto rs are present, cholesterol greater than 240 mg/dL, triglycerides greater than 1 50 mg/dL, or HDL less than 40 mg/dL. Triglycerides 234 (H) 0 - 150 mg/dL [place] [facility] HDL Cholesterol 50 (L) >50 mg/dL [place] [facility] LDL Cholesterol Calculated 113 0 - 129 mg/dL [facility] Comment: LDL Cholesterol is the primary guide to therapy: LDL-cholesterol goal in high risk patients is <100 mg/dL and in very high risk patients is <70 mg/dL. VLDL-Cholesterol 47 (H) 0 - 30 mg/dL [facility] Cholesterol/HDL Ratio 4.2 0.0 - 5.0 [facility] Specimen Anatomical Collection Method Collection Time Receive d Time (Source) Location / / Volume Laterality Blood specimen 04/09/2015 8:24 AM 015 8:29 (specimen) CDT AM CDT Joseph Montague MD LAB - BLOOD ORDERABLES Performing Organization Address City/[facility]/ZIP Code Phon e Number [facility] [address] [place] [address] Glucose (04/09/2015 8:24 AM CDT) P athologist Signature Glucose 87 70 - 99 [facility] mg/dL [facility] Specimen Anatomical Collection Method Collection Time Receive d Time (Source) Location / / Volume Laterality Blood specimen 04/09/2015 8:24 AM 015 8:29 (specimen) CDT AM CDT Joseph Montague MD LAB - BLOOD ORDERABLES Performing Organization Address City/[facility]/ZIP Code Phon e Number [facility] [address], [place] [address] PAP IMAGED THIN LAYER SCREEN (04/05/2015 12:00 AM CDT) Component Value Ref Test Analysis Performed At [facility] gist Range Method Time Signature PAP NIL COPATH Copath Report COPATH Patient Name: RENA RESENDIZ MR#: [id number] Specimen #: [id number] Collected: 04/05/2015 Received: 04/06/2015 Reported: 04/09/2015 13:57 [...] CESARIO Pride (ASCP) Processed and screened at [facility] CLINICAL HISTORY: Papanicolaou Test Limitations: ??Cervical cytology is a scre ening test with limited sensitivity; regular screening is critical for cancer prevention; Pap tests are primarily effective for the diagnosis/prevention of squamous cell carcinoma, not adenoca rcinomas or other cancers. TESTING LAB LOCATION: [address] ??[address] COLLECTION SITE: Client: ??[facility] Location: EAFP (R) Specimen (Source) Anatomical [...] management documented in this encounter Care Teams Associate Software Developer Relationship Specialty Start Date End Date Joseph Montague MD PCP - General Student in organized health 10/21/1404/21 care education/training program documented as of this encounter
--- OUTSIDE RECORDS SUMMARY | 2022-06-04 10:03 | XMS_ITS | Encounter Summary ---
:1990 Author Organization [place] Address [address] [place] [address] Care Team Providers Name Role Phone Lalita Perez MD Primary Care Provider Reason for Visit Reason Onset Date Comments Prior Auth - Medication 12/25/2016 Omeprazole 20mg caps Encounter Details Date Type Department Care Team Description 12/25/2016 Telephone [facility] Blank Lemos Prior Aut h - Medication Clinic Dev Camp MD (Omeprazole 20mg caps) [address] [facility] [address] [place] [address] [place]én[place] [address] [phone] Social History Tobacco Use Types Packs/Day Years [...] on Omeprazole 20 mg caps. Insurance # [phone] Pharmacy [facility] [address] ^^ [phone] I will start the PA process undercover [...] documented as of this encounter Care Teams Moss Bleacher Relationship Specialty Start Date End Date Lalita Perez MD PCP - General Student in organized health 10/21/1404/21 care education/training program documented as of this encounter
--- OUTSIDE RECORDS SUMMARY | 2022-06-04 10:03 | XMS_ITS | Encounter Summary ---
:1990 Author Organization [place] Address [address] [place] [address] Care Team Providers Name Role Phone Lalita Perez MD Primary Care Provider Reason for Visit Reason Onset Date Comments Medication Request 05/08/2016 Imitrex Encounter Details Date Type Department Care Team Description 05/08/2016 Telephone [facility] Blank Mary Medication Request 1440 [facility] GINNY Stanley BRASS PICKLER (Imitrex) [place] [address] 2[address] [facility] [phone] [facility] [place]NO [address] (Wo rk) Social History Tobacco Use [...] [facility] [address] [facility] [place] Phone Number Patient can be reached at: Home number on file [phone] (home) Best Time: anytime Can we leave a detailed message on this number? YES Kajal Jeong, Bottle Filler [facility] documented in this encounter Plan of Treatment Not on filedocumented as of this encounter Visit Diagnoses Diagnosis Other migraine without status migrainosu s, not intractable - Primary documented in this encounter Additional Health Concerns Assessment Noted Time PHQ-9 Depression Total Score: 14 04/11/2016 7:23 AM CD T documented as of this encounter Care Teams Sales Representative Leather Goods Relationship Specialty Start Date End Date Lalita Perez MD PCP - General Student in [facility] 10/21/1404/21 care education/training program documented as of this encounter
--- OUTSIDE RECORDS SUMMARY | 2022-06-04 10:03 | XMS_ITS | Encounter Summary ---
:1990 Author Organization [place] Address [facility] [place] [address] Care Team Providers Name Role Phone Lalita Perez MD Primary Care Provider Reason for Visit Reason Comments Forms Encounter Details Date Type Department Care Team Description 12/22/2016 Office Visit [facility] Blank Lemos Gastroeso phageal reflux disease without esophagitis (Primary Dx); Clinic Dev Camp MD History of MMR vaccination; [address] [place] [address] [place] abdomi nal pain; [facility] DR Migraine without aura and without status migrainosus, not intractable [address] [place] [address] [place] [address] Social History Tobacco Use Types Packs/Day [...] the following health issues: FMLA paperwork from [employer] for ongoing migraines. 1. Migraines - [...] Unsure of MMR status and works with [place] with [place]. Problem [...] if pain not improving. Blank Lemos MD [facility] DEV documented in this encounter Nursing Notes [...] [facility] (Measles) AI [place] [facility] Antibody IgG [facility] Comment: Positive, suggests prev. exposure and pr [...] Organization Address City/State/ZIP Code Phon e Number [address] Rubella Antibody IgG Quantitative (12/22/2016 10:15 AM CDT) Analysis Performed At Patho logist Time Signature Rubella Antibody 18 IU/mL [facility] IgG Quantitative [facility] Comment: Positive. ??Suggests previous exposure o [...] LAB - BLOOD ORDERABLES Performing Organization Address City/[facility] Code Phon e Number [address] (ABNORMAL) Mumps Antibody IgG (12/22/2016 10:15 AM CDT) athologist Signature Mumps Antibody 2.1 (H) 0.0 - 0.8 [facility] IgG AI [facility] Comment: Positive, suggests prev. exposure and pr [...] Organization Address City/State/ZIP Code Phon e Number [address] (ABNORMAL) Comprehensive metabolic panel (12/22/2016 10:15 AM CDT) Patholo gist Method Time Signature Sodium 143 133 - 144 [place] mmol/L [facility] Potassium 4.2 3.4 - 5.3 [place] mmol/L [facility] Chloride 112 (H) 94 - 109 [place] mmol/L [facility] Carbon Dioxide 23 20 - 32 [place] mmol/L [facility] Anion Gap 8 3 - 14 [place] mmol/L [facility] Glucose 82 70 - 99 [place] mg/dL [facility] Urea Nitrogen 13 7 - 30 [place] mg/dL [facility] Creatinine 0.72 0.52 - [place] 1.04 [facility] mg/dL [facility] GFR Estimate >90 >60 [place] Non GFR Calc mL/min/1. CLINICS 7m2 [facility] GFR Estimate If >90 >60 [place] Black GFR Calc mL/min/1. CLIN ICS 7m2 [facility] Calcium 9.2 8.5 - [place] 10.1 [facility] mg/dL [facility] Bilirubin Total 0.3 0.2 - 1.3 [place] mg/dL [facility] Albumin 3.6 3.4 - 5.0 [place] g/dL [facility] Protein Total 7.0 6.8 - 8.8 [place] g/dL [facility] Alkaline 78 40 - 150 [place] Phosphatase U/L [facility] ALT 55 (H) 0 - 50 [place] U/L [facility] AST 22 0 - 45 [place] U/L [facility] Specimen Anatomical Collection Method Collection Time Receive d Time (Source) Location / / Volume Laterality Blood specimen 12/22/2016 10:15 7 (specimen) AM CDT 10:16 AM CDT Blank Lemos MD LAB - BLOOD ORDERABLES Performing Organization Address City/State/ZIP Code Phon e Number [facility] [address] [place] [address] documented in this encounter Visit Diagnoses Diagnosis [...] documented as of this encounter Care Teams Checkout Operator Relationship Specialty Start Date End Date Lalita Perez MD PCP - General Student in [facility] 10/21/1404/21 care education/training program documented as of this encounter
--- OUTSIDE RECORDS SUMMARY | 2022-06-04 10:03 | XMS_ITS | Encounter Summary ---
:1990 Author Organization [place] Address [address] [place] [address] Care Team Providers Name Role Phone Lalita Perez MD Primary Care Provider Reason for Visit Reason Onset Date Comments Call Back 05/05/2016 Encounter Details Date Type Department Care Team Description 05/05/2016 Telephone [facility] [place] Lalita Toledo MD Call Back [address] [employer] [facility] - [place] [address] 330 [facility] [phone] [facility] [place] [address] (Wo rk) Social [...] SE from abx. Call back # is [phone]. Please call pt to go over the sx's. Thanks. Alvaro svp innovation partnerships Nurse documented in this encounter Plan of [...] Perez MD PCP - General Student in [employer] 10/21/1404/21 care education/training program documented as of this encounter
--- OUTSIDE RECORDS SUMMARY | 2022-06-04 10:03 | XMS_ITS | Encounter Summary ---
:1990 Author Organization [place] Address [address] [facility] [place] [address] Care Team Providers Name Role Phone Lalita Perez MD Primary Care Provider Reason for Visit Reason Comments Urgent Care Sinus Problem sinus pain, bilat ear pain, absentee-shawnee green phlegm, HARPER, ST, PND x 6 days OTC: sinus, nyquil, dayquil Encounter Details Date Type Department Care Team Description 12/04/2015 Office Visit [facility] [place] [facility] Crowder Otbing r acute Care IRENE Bob nonsuppurative otitis [address] [place] [address] S (Primary Dx) [phone] [place], [place] [id number] Social History Tobacco Use Types Packs/Day Years [...] Body Mass Index 30.88 10/02/2015 5:21 PM CUSTOMER EXPERIENCE MANAGER documented in this encounter Progress Notes [...] Sinus Problem sinus pain, bilat ear pain, absentee-shawnee green phlegm, HARPER, ST, PND x 6 [...] Primary documented in this encounter Care Teams Net Front End Developer Relationship Specialty Start Date End Date Lalita Perez MD PCP - General Student in [employer] 10/21/1404/21 care education/training program documented as of this encounter
--- OUTSIDE RECORDS SUMMARY | 2022-06-04 10:03 | XMS_ITS | Encounter Summary ---
:1990 Author Organization [place] Address [facility] [place] [address] Care Team Providers Name Role Phone Lalita Perez MD Primary Care Provider Reason for Visit Reason Onset Date Comments Refill Request 10/18/2016 SUMATRIPTAN (IMITREX ) 25MG Encounter Details Date Type Department Care Team Description 10/18/2016 Refill [facility] Lalita Perez MD Refill Request Clinic [facility] (SUMATRIPTAN (IMITREX) [address] [address] [facility] 25MG) [facility] [address] [place] [address] [place] [address] [phone] Social History Tobacco Use Types Packs/Day Years [...] 10/23/2016 9:09 AM CDT Prescription approved per [facility] Refill Protocol. Vandana Sosa RN Telephone Encounter - Marilee Oliva - 10/18/2016 1:53 PM CST SUMATRIPTAN (IMITREX) 25MG Last Written Prescription Date: 05/08/2016 Last Fill Quantity: 18, # refills: 1 Last Office Visit with [facility], [facility] or [facility] prescribing provider: 08/28/2016 BP Readings from Last 3 Encounters: 08/28/16 111/77 08/15/16 110/70 08/05/16 112/70 NING TECHNOLOGIST documented in this encounter Plan of Treatment Not on filedocumented as of this encounter Visit Diagnoses Diagnosis Other migraine without status migrainosu s, not intractable documented in this encounter Additional Health Concerns Assessment Noted Time PHQ-9 Depression Total Score: 14 04/11/2016 7:23 AM CD T documented as of this encounter Care Teams Stake Setter Relationship Specialty Start Date End Date Lalita Perez MD PCP - General Student in organized health 10/21/1404/21 care education/training program documented as of this encounter
--- OUTSIDE RECORDS SUMMARY | 2022-06-04 10:03 | XMS_ITS | Encounter Summary ---
:1990 Author Organization [place] Address [address] [place] [address] Care Team Providers Name Role Phone Lalita Perez MD Primary Care Provider Reason for Visit Reason Onset Date Comments Medication Request 08/14/2016 ear pain Encounter Details Date Type Department Care Team Description 08/14/2016 Telephone [facility] Lalita Perez MD Medication Request (ear [facility] pain) [address] [place] [address] [place] [address] [address] [place] [address] [place] [address] [phone] Social History Tobacco Use Types Packs/Day Years Used Date Smoking Tobacco: Every Day Cigarettes 0.3 8 Smokeless Tobacco: Never Alcohol Use Standard Drinks/Week Comments No 0 (1 standard drink = 0.6 oz pure alcoho l) Financial Resource Strain Answer Date Recorded How hard is it for you to pay for the very basics like Not h ajnett at all 02/07/2020 food, housing, medical care, [...] Kapadia RN Message handled by Nurse Triage. LLER WORKER Telephone Encounter - Kirill Ochoa PA-C - 08/15/2016 3:07 PM EXPELLER WORKER Please have patient follow up with PCP if symptoms are persistent. LLER WORKER Telephone Encounter - Kristie Kapadia RN - [...] reporting no improvement with ear pain with ybfnmzdi-osgieovxn-jwhybvbmcaovdg (CORTISPORIN) [id number] otic suspension drops. States that the pain [...] Kapadia RN Message handled by Nurse Triage. LLER WORKER documented in this encounter Plan of Treatment Not on filedocumented as of this encounter Visit Diagnoses Not on filedocumented in this encounter Additional Health Concerns Assessment Noted Time PHQ-9 Depression Total Score: 14 04/11/2016 7:23 AM CD T documented as of this encounter Care Teams Soapstoner Relationship Specialty Start Date End Date Lalita Perez MD PCP - General Student in [facility] 10/21/1404/21 care education/training program documented as of this encounter
--- OUTSIDE RECORDS SUMMARY | 2022-06-04 10:03 | XMS_ITS | Encounter Summary ---
:1990 Author Organization [place] Address [facility] access [facility]0 [place] [address] Care Team Providers Name Role Phone Lalita Perez MD Primary Care Provider Reason for Visit Reason Comments Ear Problem Encounter Details Date Type Department Care Team Description 08/15/2016 Office Visit [facility] Rebeka French suppurative otitis media of right ear without spontaneous rupture of tympanic membrane, recurrence not specified (Primary Dx); Clinic Dev Mays PA-C Acute sinusitis with symptoms > 10 days [address] [place] [address] [facility] [address] [place] [address] [place] [address] Social History Tobacco Use Types Packs/Day [...] Comments Blood Pressure 110/70 08/15/2016 4:09 PM CHIEF MECHANICAL OFFICER Pulse 91 08/15/2016 4:09 PM CHIEF MECHANICAL OFFICER Temperature 37 ??C (98.6 ??F) 08/15/2016 4:09 PM CHIEF MECHANICAL OFFICER Respiratory Rate - - Oxygen Saturation 99% 08/15/2016 4:09 PM CHIEF MECHANICAL OFFICER Inhaled Oxygen Concentration - - Weight 89 kg (196 lb 4.8 oz) 08/15/2016 4:09 PM CHIEF MECHANICAL OFFICER Height 160.7 cm (5' 3.25) 08/15/2016 4:09 PM CHIEF MECHANICAL OFFICER Body Mass Index 34.5 08/15/2016 4:09 PM CHIEF MECHANICAL OFFICER documented in this encounter Patient Instructions Patient InstructionsRebeka French PA-C - 08/15/2016 4:21 PM CHIEF MECHANICAL OFFICER Call with any questions F MECHANICAL OFFICER documented in this encounter Progress Notes Rebeka [...] list, Allergies, and Medical/Social/Surgical histories reviewed in [facility] andupdated as appropriate. ROS: ROS otherwise [...] tablet See Patient Instructions Rebe[facility] French PA-C [facility] F MECHANICAL OFFICER documented in this encounter Nursing Notes Kylah [...] kg). BP completed using cuff size: regular F MECHANICAL OFFICER documented in this encounter Plan of Treatment Not on filedocumented as of this encounter Visit Diagnoses Diagnosis Acute suppurative otitis media of right ear without spontaneous rupture of tympanic membrane, recurrence not specified - [facility] Acute sinusitis with symptoms > 10 days Acute sinusitis, unspecified documented in this encounter Additional Health Concerns Assessment Noted Time PHQ-9 Depression Total Score: 14 04/11/2016 7:23 AM CD T documented as of this encounter Care Teams Vice President Compliance Relationship Specialty Start Date End Date Lalita Perez MD PCP - General Student in organized health 10/21/1404/21 care education/training program documented as of this encounter
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
--- OUTSIDE RECORDS SUMMARY | 2022-06-04 10:03 | XMS_ITS | Encounter Summary ---
:1990 Author Organization [place] Address [facility] [place] [address] Care Team Providers Name Role Phone Lalita Perez MD Primary Care Provider Reason for Visit Reason Comments Urgent Care Pharyngitis since last night, swollen, h janett to swallow, chills, OTC-advil,dayquil Ear Problem Right ear pain since last ni ght. URI nasal congestion since last night. Encounter Details Date Type Department Care Team Description 08/05/2016 Office Visit [facility] Kirill Ochoa Throat p ain (Primary Dx); Urgent Care Dev Vargas PA-C Acute otitis externa of right ear, unspe cified type [address] [place] [address] [facility] [address] [place] [id number] [place] [id number] Social History Tobacco Use Types Packs/Day Years [...] Comments Blood Pressure 112/70 08/05/2016 4:43 PM EDITOR IN CHIEF NEWSPAPER Pulse 80 08/05/2016 4:43 PM EDITOR IN CHIEF NEWSPAPER Temperature 36.8 ??C (98.2 ??F) 08/05/2016 4:43 PM EDITOR IN CHIEF NEWSPAPER Respiratory Rate - - Oxygen Saturation 98% 08/05/2016 4:43 PM EDITOR IN CHIEF NEWSPAPER Inhaled Oxygen Concentration - - Weight 89.8 kg (198 lb) 08/05/2016 4:43 PM EDITOR IN CHIEF NEWSPAPER Height - - Body Mass Index 33.99 04/29/2016 8:18 AM CDT documented in this encounter Patient Instructions Patient InstructionsKirill Ochoa PA-C - 08/05/2016 5:12 PM EDITOR IN CHIEF NEWSPAPER Images from the original note were not [...] Dry your ears with a towel or chair lift operator after getting wet. Also, use ear plugs [...] your health care provider ?? Seizure ?? [phone] [employer]. [address] [place] [address]. All rights reserved. This information is not [...] in??1/2 cup of warm water ?? An pykl-wgr-yakfmxu anesthetic gargle Use Medication for More Relief Oqmu-fpn-tlytemt medication can reduce sore throat symptoms. Ask [...] glands in the neck or jaw ?? [phone] [employer]. [address] [place] [address], [place] [address]. All rights reserved. This information is not intended as a substitute for professional medical care. Always follow your healthcare professional's instructions. OR IN CHIEF NEWSPAPER documented in this encounter Progress Notes Kirill [...] the next 24-48 hours after antibiotics initiated OR IN CHIEF NEWSPAPER documented in this encounter Nursing Notes Evelyn [...] completed using cuff size: large ISIDRO Haro OR IN CHIEF NEWSPAPER documented in this encounter Plan of Treatment Not on filedocumented as of this encounter Procedures Procedure Name Priority Date/Time Associated Diagnosis Comme nts RAPID STREP SCREEN Routine 08/05/2016 5:04 PM Throat pain Res ults for this THROAT SWAB EDITOR IN CHIEF NEWSPAPER procedure are i n the results section. BETA HEMOLYTIC Routine 08/05/2016 5:04 PM Throat pain Results for this STREP GROUP A EDITOR IN CHIEF NEWSPAPER procedure are in CULTURE the results section. documented in this encounter Results Beta strep group A culture (08/05/2016 5:04 PM EDITOR IN CHIEF NEWSPAPER) Component Value Ref Test Analysis Performed At [facility] gist Range Method Time Signature Specimen Throat LUCERNE Description CLINICS DEV Culture Micro No Beta LUC[place] Streptococcus CLINICS isolated DEV Micro Report FINAL 08/07/2016 LUCERNE Status [facility] DEV Specimen Anatomical Collection Method Collection Time Receive d Time (Source) Location / / Volume Laterality 08/05/2016 5:04 PM 6 5:09 EDITOR IN CHIEF NEWSPAPER PM EDITOR IN CHIEF NEWSPAPER Kirill Ochoa PA-C LAB - MICRO [facility] [place] [place] Performing Organization Address City/[facility]/ZIP Code Phon e Number [facility] [address] [place] [phone] Strep, Rapid Screen (08/05/2016 5:04 PM EDITOR IN CHIEF NEWSPAPER) Component Value Ref Test Analysis Performed At [facility] gist Range Method Time Signature Specimen Throat [facility] DEV Rapid Strep A NEGATIVE: No Group A strepto coccal antigen detected by immunoassay, await [place] Screen culture report. CLINICS DEV Micro Report FINAL 08/05/2016 LUCERNE Status [facility] DEV Specimen Anatomical Collection Method Collection Time Receive d Time (Source) Location / / Volume Laterality Specimen from 08/05/2016 5:04 PM 08/05/20 16 5:09 throat EDITOR IN CHIEF NEWSPAPER PM EDITOR IN CHIEF NEWSPAPER (specimen) Kirill Ochoa PA-C LAB - MICRO [facility] [place] Performing Organization Address City/[facility]/ZIP Code Phon e Number [facility] [address] [place] [phone] documented in this encounter Visit Diagnoses Diagnosis Throat pain - Primary Acute otitis externa of right ear, unspe cified type documented in this encounter Additional Health Concerns Assessment Noted Time PHQ-9 Depression Total Score: 14 04/11/2016 7:23 AM CD T documented as of this encounter Care Teams Soccer Coach Relationship Specialty Start Date End Date Lalita Perez MD PCP - General Student in [facility] 10/21/1404/21 care education/training program documented as of this encounter
--- OUTSIDE RECORDS SUMMARY | 2022-06-04 10:03 | XMS_ITS | Encounter Summary ---
:1990 Author Organization [place] Address [facility] [place] [address] Care Team Providers Name Role Phone Lalita Perez MD Primary Care Provider Reason for Visit Reason Onset Date Comments Refill Request 01/14/2017 escitalopram (LEXAPR O) 20 MG tablet 01/14/17 Encounter Details Date Type Department Care Team Description 01/14/2017 Refill [facility] Lalita Perez MD Refill Request Clinic [facility] (escitalopram (LEXAPRO) [address] [place] [address] [facility] 20 MG tablet 01/14/17) [facility] [address] [place] [address] [place] [address] [phone] Social History Tobacco Use Types Packs/Day Years [...] 01/15/2017 2:03 PM CDT Prescription approved per [facility] Refill Protocol. Vandana Sosa RN Telephone Encounter - Nini Figueroa - 01/14/2017 11:31 AM CDT Medication Detail Disp Refills Start End GERARDO escitalopram (LEXAPRO) 20 MG tablet 90 tablet 2 04/10/2016 No Sig: Take 1 tablet (20 mg) by mouth daily Last Office Visit with [facility] primary care provider: 12/22/16 Last PHQ-9 score [...] as of this encounter Care Teams Inspector Agricultural Commodities Relationship Specialty Start Date End Date Lalita Perez MD PCP - General Student in organized health 10/21/1404/21 care education/training program documented as of this encounter
--- OUTSIDE RECORDS SUMMARY | 2022-06-04 10:03 | XMS_ITS | Encounter Summary ---
:1990 Author Organization [place] Address [facility] [place] [address] Care Team Providers Name Role Phone Lalita Perez MD Primary Care Provider Reason for Visit Reason Onset Date Comments Chest Pain 07/28/2016 Encounter Details Date Type Department Care Team Description 07/28/2016 Telephone [facility] Taylor Perez MD Chest Pain [facility] [address] [facility] [address] [place] [address] [address] [place] [address] [place] [address] [phone] Social History Tobacco Use Types Packs/Day Years [...] new symptoms develop, call your PCP or [place] [facility] as soon as possible. Guideline used: Telephone Triage Protocols for Nurses, ? Billy, UNRULY Butcher RN ET CLERK documented in this encounter Plan of Treatment Not on filedocumented as of this encounter Visit Diagnoses Not on filedocumented in this encounter Additional Health Concerns Assessment Noted Time PHQ-9 Depression Total Score: 14 04/11/2016 7:23 AM CD T documented as of this encounter Care Teams Air Conditioning Specialist Relationship Specialty Start Date End Date Lalita Perez MD PCP - General Student in [facility] 10/21/1404/21 care education/training program documented as of this encounter
--- OUTSIDE RECORDS SUMMARY | 2022-06-04 10:03 | XMS_ITS | Encounter Summary ---
:1990 Author Organization [place] Address [address] [place] [address]. [place] [address] Care Team Providers Name Role Phone Lalita Perez MD Primary Care Provider Reason for Referral Mental Health Outpatient - Closed Specialty Diagnoses / Procedures Referred By Contact Refer red To Contact Diagnoses Bipolar I disorder (H) Generalized anxiety disorder Blank Damon NON [facility] TECHNOLOGIST RAIL EXPRESS CLERK [address] [place] [address] [place] R[place] [phone] [place] [address] Referral ID Status Reason Start Date Expiration Date Visits Requ ested Visits Authorized [id number] Closed 04/10/2016 04/10/2017 1 1 Reason for Visit Reason Comments Physical Recheck Medication Encounter Details Date Type Department Care Team Description 04/10/2016 Office Visit [facility] Blank Damon hesohan lt maintenance (Primary Dx); Dev Stanley APRN Non morbid obesity, unspecif ied obesity type; [address] [facility] KAILEE Encounter for surveillance of other cont raceptive; [place] [phone] [place] [address] Generalized anxiety disorder ; [phone] FERNANDO RICE Bipolar I disorder (H); [place] [address] Tobacco abuse; [phone] Need for vaccin ation; (Work) Stomach upset [...] this encounter Progress Notes Blank Damon APRN RAIL EXPRESS CLERK - 04/10/2016 2:48 PM CDT SUBJECTIVE: CC: [...] recommended All Histories reviewed and [facility] in [facility] ROS: C: NEGATIVE for fever, chills, change [...] list, Allergies, and Medical/Social/Surgical histories reviewed in [facility] andupdated as appropriate. OBJECTIVE: BP 102/58 mmHg [...] 0 4. Generalized anxiety disorder Poorly controlled AGBRIEL and bipolar. Hasn't had any manic episodes [...] tablet; Refill: 2 -Recommended she f/u with [facility], where she is already established. -Increase [...] Lung CA Screening Blank Damon APRN CNP [facility] documented in this encounter Nursing Notes [...] Priority Associated Diagnoses Order S [facility] MENTAL HEALTH REFERRAL Referral Routine Bipolar [...] documented as of this encounter Care Teams Ui Developer Designer Relationship Specialty Start Date End Date Lalita Perez MD PCP - General Student in organized health 10/21/1404/21 care education/training program documented as of this encounter
--- OUTSIDE RECORDS SUMMARY | 2022-06-04 10:03 | XMS_ITS | Encounter Summary ---
:1990 Author Organization [place] Address [address] [place] [address] Care Team Providers Name Role Phone Lalita [...] Type Department Care Team Description 03/03/2016 Telephone [facility] Lalita Sepulveda MD Refill Request [address] [email or web address] [facility] (AZURETTE TABLETS 28'S) [place] [phone] 36[address] [facility] [phone] [facility] [place] [address] (Wo rk) Social History Tobacco [...] 03/05/2016 9:01 AM CDT Prescription approved per [facility] Refill Protocol. Patient due for physical after 04/05/16. Routing to Station Nurse Pool, please call to assist patient in scheduling a physical after 04/05/16. Telephone Encounter - Lalita Merritt - 03/03/2016 8:07 AM CDT AZURETTE TABLETS 28'S Last Written Prescription Date: 04/05/2015 Last Fill Quantity: 90, # refills: 3 Last Office Visit with [facility], P or [facility] prescribing provider: 10/02/2015 documented in this encounter Plan of Treatment Not on filedocumented as of this encounter Visit Diagnoses Diagnosis Contraceptive management - Primary Unspecified contraceptive management documented in this encounter Care Teams Oil Heat Technician Relationship Specialty Start Date End Date Lalita Perez MD PCP - General Student in [facility] 10/21/14 04/21/18 health care education/training program Blank Lemos, PCP - General Internal Medicine 04/22/[address] [place] [address] [address] [place], [place] [id number] Blank Lemos, PCP - Assigned PCP 04/25/[address] [place] [address] [address] [place], [place] [phone] Blank Lemos, Assigned PCP 04/25/[address] [place] [address] [address] [place], [place] [id number] Hardeep Cárdenas Personal Advocate & 06/17/1901/30 Liaison (PAL) Kathleen Lacy CNM Assigned OBGYN Provider 06/01/20 11/23/21 [address] [place] [address] Anabell Shannon Personal Advocate & 10/25/20 Liaison (PAL) Rand Kam, Assigned OBGYN Provider 11/24/21 12/28/21 CALCINER OPERATOR HELPER CNM [address] [place], [place] [id number] Sharita Frias Assigned OBGYN Provider 01/04/2205/31 [place] [address] [place], [place] [phone] Kathleen Lacy CNM Assigned OBGYN Provider 12/29/21 01/03/22 [address] [place], [place] [address] Kathleen Lacy CNM Assigned OBGYN Provider 01/18/22 01/24/22 [address] [place], [place] [address] Sharita Frias Assigned OBGYN Provider 01/25/22 [place] [address] [address] [place] [address] documented as of this encounter
--- OUTSIDE RECORDS SUMMARY | 2022-06-04 10:03 | XMS_ITS | Encounter Summary ---
:1990 Author Organization [place] Address [address] [place] [address] Care Team Providers Name Role Phone Lalita Perez MD Primary Care Provider Reason for Visit Reason Onset Date Comments Ear Problem 08/19/2016 Encounter Details Date Type Department Care Team Description 08/19/2016 Telephone [facility] Taylor Perez MD Ear Problem [facility] [address] [facility] [address] [place] [address] [address] [place] [address] [place] [phone] [phone] Social History Tobacco Use Types Packs/Day Years [...] she understands the below documentation. Lizett Garcia Social Media Specialist OL CROSSING GUARD SUPERVISOR Telephone Encounter - Lizett Garcia - 08/19/2016 5:41 PM CST LM for patient to call the clinic. Please see below documentation. Thank you, Lizett Garcia Social Media Specialist OL CROSSING GUARD SUPERVISOR Telephone Encounter - Rebeka French PA-C - 08/19/2016 5:12 PM SCHOOL CROSSING GUARD SUPERVISOR Begin omnicef and dc augmentin. Increase fluid intake. Call and inform patient. Rebeka French PA-C OL CROSSING GUARD SUPERVISOR Telephone Encounter - Kristie Kapadia RN - [...] would rather change it than continue. Kristie Hollywood, RN Message handled by Nurse Triage. OL CROSSING GUARD SUPERVISOR documented in this encounter Plan of [...] as of this encounter Care Teams Data Entry Representative Relationship Specialty Start Date End Date Lalita Perez MD PCP - General Student in [facility] 10/21/1404/21 care education/training program documented as of this encounter
--- OUTSIDE RECORDS SUMMARY | 2022-06-04 10:03 | XMS_ITS | Encounter Summary ---
:1990 Author Organization [place] Address [address] [place] [address] Care Team Providers Name Role Phone Lalita Perez MD Primary Care Provider Reason for Visit Reason Onset Date Comments Refill Request 08/11/2016 TOPIRAMATE 25MG Encounter Details Date Type Department Care Team Description 08/11/2016 Refill [facility] Lalita Perez MD Refill Request Clinic [facility] (TOPIRAMATE 25MG) [address] [place] [address] [facility] [address] [place] [address] [place] [address] [phone] Social History Tobacco Use Types Packs/Day Years [...] 2:17 PM CST Prescription approved per [facility] Refill Protocol. Kylah Gomez, supply chain development manager Nurse COPTER PILOT Telephone Encounter - Lalita Merritt - 08/11/2016 9:47 AM CST TOPIRAMATE 25MG Last Written Prescription Date: 07/11/2016 Last Fill Quantity: 120, # refills: 0 Last Office Visit with [facility], [facility] or [facility] prescribing provider: 06/16/2016 Future Office Visit: CREATININE Date Value Ref Range Status 04/19/2016 0.64 0.52 - 1.04 mg/dL Final COPTER PILOT documented in this encounter Plan of Treatment [...] as of this encounter Care Teams Business Development Analyst Relationship Specialty Start Date End Date Lalita Perez MD PCP - General Student in organized health 10/21/1404/21 care education/training program documented as of this encounter
--- OUTSIDE RECORDS SUMMARY | 2022-06-04 10:03 | XMS_ITS | Encounter Summary ---
:1990 Author Organization [place] Address [facility] [place] [address] Care Team Providers Name Role Phone Lalita Perez MD Primary Care Provider Reason for Visit Reason Comments Abnormal Bleeding Problem Encounter Details Date Type Department Care Team Description 01/28/2017 Office Visit [facility] [place], Abnormal u terine and vaginal bleeding, unspecified (Primary Dx); Clinic Dev Weinberg MD Cyst of ovary, unspecified laterality; [address] [facility] Migra ine without aura and without status migrainosus, not intractable [facility] [address] [place] [address] [place] [address] Social History Tobacco Use [...] in a while. Surgery for endometriosis in 1976-8890. Ultrasounds very frequently to follow frequent ovarian [...] Per Care Everywhere, has 2 pelvic US. [id number], showed left cyst. In 2010, no cyst. [...] with acetaminophen if possible. Sultana Fonseca MD [facility] DEV I discussed this case in [...] Signature Prolactin 10 3 - 27 ug/L [facility] Comment: Reference ranges apply to non-p regnant females only. Specimen Anatomical Collection Method Collection Time Receive d Time (Source) Location / / Volume Laterality Blood specimen 01/28/2017 9:12 AM 017 9:17 (specimen) CDT AM CDT Lily Encarnacion MD LAB - BLOOD ORDERABLES Performing Organization Address City/[facility]/ZIP Code Phon e Number [facility] [address] [place] [address] [facility] TSH with free T4 reflex (01/28/2017 9:12 AM CDT) athologist Signature TSH 1.52 0.40 - 4.00 [facility] mU/L [facility] Specimen Anatomical Collection Method Collection Time Receive d Time (Source) Location / / Volume Laterality Blood specimen 01/28/2017 9:12 AM 017 9:17 (specimen) CDT AM CDT Lily Encarnacion MD LAB - BLOOD ORDERABLES Performing Organization Address City/[facility]/ZIP Code Phon e Number [facility] [address] [place] [address] Hemoglobin A1c (01/28/2017 9:12 AM CDT) athologist Signature Hemoglobin A1C 5.0 4.3 - 6.0 [facility] % [facility] Specimen Anatomical Collection Method Collection Time Receive d Time (Source) Location / / Volume Laterality Blood specimen 01/28/2017 9:12 AM 017 9:17 (specimen) CDT AM CDT Lily Encarnacion MD LAB - BLOOD ORDERABLES Performing Organization Address City/[facility]/ZIP Code Phon e Number [address] [address] [phone] Hemoglobin (01/28/2017 9:12 AM CDT) athologist Signature Hemoglobin 13.5 11.7 - 15.7 [place] g/dL [facility] Specimen Anatomical Collection Method Collection Time Receive d Time (Source) Location / / Volume Laterality Blood specimen 01/28/2017 9:12 AM 017 9:17 (specimen) CDT AM CDT Lily Encarnacion MD LAB - BLOOD ORDERABLES Performing Organization Address City/[facility]/ZIP Code Phon e Number [address] [address] [phone] documented in this encounter Visit [...] documented as of this encounter Care Teams Building Maintenance Supervisor Relationship Specialty Start Date End Date Lalita Perez MD PCP - General Student in [facility] 10/21/1404/21 care education/training program documented as of this encounter
--- OUTSIDE RECORDS SUMMARY | 2022-06-04 10:03 | XMS_ITS | Encounter Summary ---
:1990 Author Organization [place] Address [facility] [place] [address] Care Team Providers Name Role Phone Lalita Perez MD Primary Care Provider Reason for Visit Reason Comments Hemoptysis Encounter Details Date Type Department Care Team Description 04/19/2016 [facility] [address] [place] [address] [place] [id number] Hemoptysis; [facility] Emergency Dep Kyleigh Sandoval MD [facility] [address] [place], [place] [address] Upper respiratory tract infection, unspe cified type [address] [place] [address] Social History Tobacco Use Types Packs/Day Years [...] help loosen secretions in the lungs. ?? [id number] cough medicines that contain dextromethorphan may help [...] Rapid heartbeat ?? Weakness or dizziness ?? [id number] [employer]. [address] [place] [address]. All rights reserved. This information is not [...] and the provider's statements to me. 04/19/2016 [facility] EMERGENCY DEPARTMENT Kyleigh Sandoval MD 04/20/16 1502 [...] Basic metabolic panel (04/19/2016 9:25 PM CDT) [facility] Method Time Signature Sodium 142 133 - 144 [facility] mmol/L [facility] Potassium 3.8 3.4 - 5.3 [facility]/L [facility] Chloride 110 (H) 94 - 109 [facility] mmol/L [facility] Carbon Dioxide 27 20 - 32 [facility] mmol/L [facility] Anion Gap 5 3 - 14 [facility] mmol/L [facility] Glucose 79 70 - 99 [place] mg/dL [facility] Urea Nitrogen 8 7 - 30 [facility] mg/dL [facility] Creatinine 0.64 0.52 - [facility] 1.04 [facility] mg/dL HOSPITAL GFR Estimate >90 >60 [place] Non GFR Calc mL/min/1. [facility] 7m2 HOSPITAL GFR Estimate >90 >60 [facility] If Black GFR Calc mL/min/1. [facility] 7m2 HOSPITAL Calcium 8.8 8.5 - [place] 10.1 [facility] mg/dL HOSPITAL Specimen Anatomical Collection Method Collection Time Receive d Time (Source) Location / / Volume Laterality Blood specimen 04/19/2016 9:25 PM 016 9:28 (specimen) CDT PM CDT Kyleigh Sandoval MD LAB - BLOOD ORDERABLES Performing Organization Address City/State/ZIP Code Phon e Number [place] [address] [place] [address] [facility] [address] [phone] CBC + differential (04/19/2016 9:25 PM CDT) [facility] gist Method Time Signature WBC 9.2 4.0 - [place] 11.0 [facility] 10e9/L [facility] RBC Count 4.24 3.8 - 5.2 [place] 10e12/L [facility] Hemoglobin 13.2 11.7 - [place] 15.7 g/dL [facility] Hematocrit 38.5 35.0 - [place] 47.0 % [facility] MCV 91 78 - 100 [place] fl [facility] MCH 31.1 26.5 - [place] 33.0 pg [facility] MCHC 34.3 31.5 - [place] 36.5 g/dL [facility] RDW 12.5 10.0 - [place] 15.0 % [facility] Platelet Count 429 150 - 450 [place] 10e9/L [facility] Diff Method Automated [place] Method [facility] % Neutrophils 42.4 % [facility] % Lymphocytes 46.3 % [facility] % Monocytes 6.9 % [facility] % Eosinophils 3.7 % [facility] % Basophils 0.5 % [facility] % Immature 0.2 % [place] Granulocytes [facility] Nucleated RBCs 0 0 /100 [facility] Absolute 3.9 1.6 - 8.3 [place] Neutrophil 10e9/L [facility] Absolute 4.3 0.8 - 5.3 [place] Lymphocytes 10e9/L [facility] Absolute 0.6 0.0 - 1.3 [place] Monocytes 10e9/L [facility] Absolute 0.3 0.0 - 0.7 [place] Eosinophils 10e9/L [facility] Absolute 0.1 0.0 - 0.2 [place] Basophils 10e9/L [facility] Abs Immature 0.0 0 - 0.4 [place] Granulocytes 10e9/L [facility] Absolute 0.0 [place] Nucleated RBC [facility] Specimen Anatomical Collection Method Collection Time Receive d Time (Source) Location / / Volume Laterality Blood specimen 04/19/2016 9:25 PM 016 9:28 (specimen) CDT PM CDT Kyleigh Sandoval MD LAB - BLOOD ORDERABLES Performing Organization Address [facility] Phon e Number [place] [phone] [place] [phone] D dimer quantitative (04/19/2016 9:25 PM CDT) athologist Signature D Dimer 0.5 0.0 - 0.50 [facility] ug/ml [facility] Comment: This D-dimer assay is intended for use i n conjuntion with a clinical pretest probability assessment model to exclude pulmonary embolism (PE) and as an aid in the diagnosis of deep venous thrombo sis (DVT) in outpatients suspected of PE or DVT. The cut-off value is 0.5??g/mL [facility]. Specimen Anatomical Collection Method Collection Time Receive d Time (Source) Location / / Volume Laterality Blood specimen 04/19/2016 9:25 PM 016 9:28 (specimen) CDT PM CDT Kyleigh Sandoval MD LAB - BLOOD ORDERABLES Performing Organization Address City/[facility] Phon e Number M [facility] [address] [place], [place] [address] [address] [phone] documented in this encounter Visit Diagnoses Diagnosis Hemoptysis Upper respiratory tract infection, unspe cified type documented in this encounter Additional Health Concerns Assessment Noted Time PHQ-9 Depression Total Score: 14 04/11/2016 7:23 AM CD T documented as of this encounter Care Teams Environmental Services Director Relationship Specialty Start Date End Date Lalita Perez MD PCP - General Student in [facility] 10/21/1404/21 care education/training program documented as of this encounter
--- OUTSIDE RECORDS SUMMARY | 2022-06-04 10:03 | XMS_ITS | Encounter Summary ---
:1990 Author Organization [place] Address [address] [place] [address] Care Team Providers Name Role Phone Lalita Perez MD Primary Care Provider Reason for Visit Reason Onset Date Comments Nurse Advice Line 07/17/2016 Encounter Details Date Type Department Care Team Description 07/17/2016 Telephone [facility] Eag Lalita Toledo MD Nurse Advice Line [address] (acquired by [employer]) [facility] - [place] [phone] 9408 [facility] [phone] [facility] [place] [address] (Wo rk) Social [...] Brii Odonnell RN - 07/17/2016 3:46 PM RUBBER MILL TENDER Wondering if having flu or s/e of [...] beverages. Increase rest. May try OTC acid graduate studies dean (Zantac or omeprazole). Monitor over the weekend if no improvement may be seen in clinic or UC if sx worsen. Pt. Verbalized understanding. Brii Odonnell RN, BSN, PHN ER MILL TENDER documented in this encounter Plan of Treatment Not on filedocumented as of this encounter Visit Diagnoses Not on filedocumented in this encounter Additional Health Concerns Assessment Noted Time PHQ-9 Depression Total Score: 14 04/11/2016 7:23 AM CD T documented as of this encounter Care Teams Blindstitch Machine Operator Relationship Specialty Start Date End Date Lalita Perez MD PCP - General Student in [facility] 10/21/1404/21 care education/training program documented as of this encounter
--- OUTSIDE RECORDS SUMMARY | 2022-06-04 10:03 | XMS_ITS | Encounter Summary ---
:1990 Author Organization [place] Address [address] [place] [address] Care Team Providers Name Role Phone Lalita Perez MD Primary Care Provider Reason for Visit Reason Comments Headache Contraception Encounter Details Date Type Department Care Team Description 06/16/2016 Office Visit [facility] Blank Lemos Encounter for surveillance of other contraceptive (Primary Dx); Dev Camp MD Migraine without aura and without status migrainosus, not intractable [address] [place] [address] [place] [phone] [facility] [phone] [place] [address] Social History Tobacco Use [...] Comments Blood Pressure 106/76 06/16/2016 8:24 AM CREATIVE TECHNOLOGIST Pulse 86 06/16/2016 8:24 AM CREATIVE TECHNOLOGIST Temperature 37.1 ??C (98.8 ??F) 06/16/2016 8:24 AM CREATIVE TECHNOLOGIST Respiratory Rate - - Oxygen Saturation 98% 06/16/2016 8:24 AM CREATIVE TECHNOLOGIST Inhaled Oxygen Concentration - - Weight 89.8 kg (198 lb) 06/16/2016 8:24 AM CREATIVE TECHNOLOGIST Height - - Body Mass Index 33.99 04/29/2016 8:18 AM CDT documented in this encounter Patient Instructions Patient InstructionsBlank Lemos MD - 06/16/2016 8:39 AM CST Follow instructions carefully for topamax. TIVE TECHNOLOGIST documented in this encounter Progress Notes Blank Lemos MD - 06/16/2016 7:22 AM CST SUBJECTIVE: eRna Turner is a 26 year old female [...] instructions carefully for topamax. Blank [facility] TIVE TECHNOLOGIST documented in this encounter Nursing Notes Maria [...] kg). BP completed using cuff size: regular TIVE TECHNOLOGIST documented in this encounter Plan of [...] documented as of this encounter Care Teams Microwave Technician Relationship Specialty Start Date End Date Lalita Perez MD PCP - General Student in [facility] health 10/21/1404/21 care education/training program documented as of this encounter
--- OUTSIDE RECORDS SUMMARY | 2022-06-04 10:04 | XMS_ITS | Encounter Summary ---
:1990 Author Organization [place] Address [address] [place] [address] Care Team Providers Name Role Phone Lalita Perez MD Primary Care Provider Reason for Visit Reason Onset Date Comments Panel Management 01/11/2015 Encounter Details Date Type Department Care Team Description 01/11/2015 Telephone [facility] Eag Lalita Toledo MD Panel Management [address] [facility] - [place] [phone] [facility] [phone] [facility] [place] [phone] (Wo rk) [...] Review Date of last visit with a [place] provider: on 11/28/14. Date of next visit with a [place] provider: None. Problem List Patient Active Problem [...] on filedocumented in this encounter Care Teams Document Review Specialist Relationship Specialty Start Date End Date Lalita Perez MD PCP - General Student in [facility] health 10/21/1404/21 care education/training program documented as of this encounter
--- OUTSIDE RECORDS SUMMARY | 2022-06-04 10:04 | XMS_ITS | Encounter Summary ---
:1990 Author Organization [place] Address [address] [place] [address] Care Team Providers Name Role Phone Lalita Perez MD Primary Care Provider Reason for Referral Mental Health Outpatient - Closed Specialty Diagnoses / Procedures Referred By Contact Refer red To Contact Diagnoses Bipolar I disorder (H) Aleksander Mercado MD [facility] [address] [place] [address] [place] [phone] Referral ID Status Reason Start Date Expiration Date Visits Requ ested Visits Authorized [id number] Closed 2015 07/15/2015 1 1 Reason for Visit Reason Comments Anxiety Encounter Details Date Type Department Care Team Description 2015 Office Visit [facility] Aleksander Mercado Bipolar I d isorder (H) (Primary Dx); Dev Higgins MD GABRIEL (generalized anxiety disorder); [address] [address] [place] [address] Contraceptive management [place] [phone] [facility] [phone] [place] [address] Social History Tobacco Use [...] Last PHQ-9 score on record= PHQ-9 SCORE ([facility] 2015 Total Score 25 ?? Amount of [...] for annual and pap Aleksander Mercado MD [facility] DEV documented in this encounter Plan of Treatment Scheduled Referrals Name Type Priority Associated Diagnoses Order [facility] MENTAL HEALTH REFERRAL Referral Routine Bipolar I disorder (H) Ordered: 2015 documented as of this encounter Visit Diagnoses Diagnosis Bipolar I disorder (H) - Primary Bipolar I disorder, most recent episode (or current) unspecified GABRIEL (generalized anxiety disorder) Generalized anxiety disorder Contraceptive management Unspecified contraceptive management documented in this encounter Care Teams Handle Turner Relationship Specialty Start Date End Date Lalita Perez MD PCP - General Student in [facility] 10/21/1404/21 care education/training program documented as of this encounter
--- OUTSIDE RECORDS SUMMARY | 2022-06-04 10:04 | XMS_ITS | Encounter Summary ---
:1990 Author Organization [place] Address [address] [place] [address] Care Team Providers Name Role Phone Lalita Perez MD Primary Care Provider Reason for Visit Reason Comments Anxiety Encounter Details Date Type Department Care Team Description 02/20/2015 Office Visit [facility] Aleksander Mercado (H) (Primary Dx); Dev Higgins MD GABRIEL (generalized anxiety disorder); 14[address] [employer] [address] [place] [address] [place] [phone] [facility] [phone] [place] [address] Social History Tobacco Use [...] you feel ready to sleep. Published by [employer]. This content is reviewed periodically and is subject to change as new health information becomes available. The information is intended to inform and educate and is not a replacement for medical evaluation, advice, diagnosis or treatment by a healthcare professional. Developed by [employer] [place], [place], and FeniksSelect Medical [facility]. ? 2009 [facility] and/or its affiliates. All Rights Reserved. Copyright [...] education information is given-insomnia Aleksander Mercado MD [facility] documented in this encounter Plan [...] Comprehensive metabolic panel (02/20/2015 11:19 AM CDT) [employer] Method Time Signature Sodium 140 133 - 144 [place] mmol/L [facility] Potassium 4.0 3.4 - 5.3 [facility] mmol/L [facility] Chloride 107 94 - 109 [place] mmol/L [facility] Carbon Dioxide 27 20 - 32 [place] mmol/L [facility] Anion Gap 6 3 - 14 [place] mmol/L [facility] Glucose 87 70 - 99 [place] mg/dL [facility] Urea Nitrogen 11 7 - 30 [place] mg/dL [facility] Creatinine 0.72 0.52 - [facility] 1.04 CLINICS mg/dL [facility] GFR Estimate >90 >60 [place] Non GFR Calc mL/min/1. CLINICS 7m2 [facility] GFR Estimate If >90 >60 [place] Black GFR Calc mL/min/1. CLIN ICS 7m2 [facility] Calcium 9.0 8.5 - [facility] 10.1 [facility] mg/dL [facility] Bilirubin Total 0.2 0.2 - 1.3 [place] mg/dL [facility] Albumin 3.5 3.4 - 5.0 [place] g/dL [facility] Protein Total 7.0 6.8 - 8.8 [place] g/dL [facility] Alkaline 88 40 - 150 [place] Phosphatase U/L [facility] ALT 21 0 - 50 [place] U/L [facility] AST 11 0 - 45 [place] U/L [facility] Specimen Anatomical Collection Method Collection Time Receive d Time (Source) Location / / Volume Laterality Blood specimen 02/20/2015 11:19 5 (specimen) AM CDT 11:20 AM CDT Aleksander Mercado MD LAB - BLOOD ORDERABLES Performing Organization Address City/State/ZIP Code Phon e Number [facility] [address] [place] [address] CBC with platelets differential (02/20/2015 11:19 AM CDT) [facility] gist Method Time Signature WBC 10.3 4.0 - [facility] 11.0 CLINICS 10e9/L DEV RBC Count 4.12 3.8 - 5.2 [place] 10e12/L [facility] DEV Hemoglobin 12.8 11.7 - [facility] 15.7 g/dL [facility] DEV Hematocrit 38.3 35.0 - [facility] 47.0 % CLINICS DEV MCV 93 78 - 100 [place] fl [facility]INICS DEV MCH 31.1 26.5 - [facility] 33.0 pg CLINICS DEV MCHC 33.4 31.5 - [facility] 36.5 g/dL [facility] DEV RDW 12.1 10.0 - [facility] 15.0 % [facility] DEV Platelet Count 409 150 - 450 [place] 10e9/L [facility] DEV Diff Method Automated [place] Method [facility] DEV % Neutrophils 54.8 % [facility] % Lymphocytes 37.4 % [facility] DEV % Monocytes 5.7 % [facility] DEV % Eosinophils 1.9 % [facility] DEV % Basophils 0.2 % [facility] DEV Absolute 5.6 1.6 - 8.3 [place] Neutrophil 10e9/L CLINICS DEV Absolute 3.8 0.8 - 5.3 [place] Lymphocytes 10e9/L [facility] DEV Absolute 0.6 0.0 - 1.3 [place] Monocytes 10e9/L [facility]IN[facility] DEV Absolute 0.2 0.0 - 0.7 [place] Eosinophils 10e9/L [facility] DEV Absolute 0.0 0.0 - 0.2 [place] Basophils 10e9/L [facility] DEV Specimen Anatomical Collection Method Collection Time Receive d Time (Source) Location / / Volume Laterality Blood specimen 02/20/2015 11:19 02/20/ 5 (specimen) AM CDT 11:20 AM CDT Aleksander Mercado MD LAB - BLOOD ORDERABLES Performing Organization Address City/State/ZIP Code Phon e Number [facility] DEV [address] [place] [address] documented in this encounter Visit Diagnoses Diagnosis Bipolar I disorder (H) - Primary Bipolar I disorder, most recent episode (or current) unspecified GABRIEL (generalized anxiety disorder) Generalized anxiety disorder Insomnia Insomnia, unspecified documented in this encounter Care Teams Arts Administrator Relationship Specialty Start Date End Date Lalita Perez MD PCP - General Student in [facility] health 10/21/1404/21 care education/training program documented as of this encounter
--- OUTSIDE RECORDS SUMMARY | 2022-06-04 10:04 | XMS_ITS | Encounter Summary ---
:1990 Author Organization [place] Address [address] [place] [address] Care Team Providers Name Role Phone Lalita Perez MD Primary Care Provider Reason for Visit Reason Comments Anxiety Recheck Medication Encounter Details Date Type Department Care Team Description 11/28/2014 Office Visit [facility] Lalita Perez MD Phobia, flying (Primary Dx); [facility] [place] GABRIEL (generalized anxiety disorder) [address] [place] [address] [place] [phone] [place] [phone] [place] [address] Social History Tobacco Use Types Packs/Day [...] for recheck. Lalita Perez MD Med/Peds PGY-2 [facility] [place] STAFF NOTE: Patient seen with [...] disorder documented in this encounter Care Teams Interpretive Program Coordinator Relationship Specialty Start Date End Date Lalita Perez MD PCP - General Student in [facility] 10/21/1404/21 care education/training program documented as of this encounter
--- OUTSIDE RECORDS SUMMARY | 2022-06-04 10:04 | XMS_ITS | Encounter Summary ---
:1990 Author Organization [place] Address [address] [place] [address] Care Team Providers Name Role Phone Lalita Perez MD Primary Care Provider Reason for Visit Reason Onset Date Comments Refill Request 12/01/2014 ESCITALOPRAM 10MG Encounter Details Date Type Department Care Team Description 12/01/2014 Refill [facility] Eag Lalita Toledo MD Refill Request 1440 [facility] [place] (ESCITALOPRAM 10MG) [place] [phone] 4632 [facility] [phone] [facility] [place] [phone] (Wo rk) [...] disorder documented in this encounter Care Teams Painter Set Relationship Specialty Start Date End Date Lalita Perez MD PCP - General Student in [facility] 10/21/1404/21 care education/training program documented as of this encounter
--- OUTSIDE RECORDS SUMMARY | 2022-06-04 10:04 | XMS_ITS | Encounter Summary ---
:1990 Author Organization [place] Address [address] [place] [address]. [place] [address] Care Team Providers Name Role Phone Lalita Perez MD Primary Care Provider Reason for Referral Mental Health Outpatient - Closed Specialty Diagnoses / Procedures Referred By Contact Refer red To Contact Diagnoses GABRIEL (generalized anxiety disorder) Lalita Perez MD [facility] [address] [address] KISHAN MÉNDEZ [address] Referral ID Status Reason Start Date Expiration Date Visits Requ ested Visits Authorized [id number] Closed 10/17/2014 04/15/2015 1 1 Reason for Visit Reason Comments Anxiety Encounter Details Date Type Department Care Team Description 10/17/2014 Office Visit [facility] Lalita Perez MD GABRIEL (generalized Dev [facility] anxiety disorder) [address] (Primary Dx) KISHAN Méndez [address] FERNANDO RICE [phone] K[place] MÉNDEZ [address] Social History Tobacco Use [...] Lindsey, attending Lalita Perez MD Med/Peds PGY-2 [facility] DEV STAFF NOTE: Patient seen with resident [...] Name Type Priority Associated Diagnoses Order S [facility] MENTAL HEALTH REFERRAL Referral Routine GABRIEL (generalized a nxiety Ordered: 10/17/2014 disorder) documented as of this encounter Visit Diagnoses Diagnosis GABRIEL (generalized anxiety disorder) - Kimberli bear Generalized anxiety disorder documented in this encounter Care Teams Refrigerator Repairman Relationship Specialty Start Date End Date Lalita Perez MD PCP - General Student in [facility] 10/21/1404/21 care education/training program documented as of this encounter
--- NOTE | 2022-06-04 10:26 | PM.ANPROEV ---
[facility] Medical History (Updated 05/09/22 @ 11:55 by Oliva Carey MD) Pain in symphysis pubis during Social History Smoking Status: Never smoker Meds Home Medications and Allergies Home Medications Medication Instructions Recorded Confirmed Type acetaminophen 500 mg tablet mg PO PRN 02/14/22 05/29/22 History aspirin 81 mg capsule 81 mg PO QDAY 02/14/22 05/29/22 History buspirone 7.5 mg tablet 50 mg PO BID 02/14/22 05/29/22 History docusate sodium 100 mg capsule mg PO 02/14/22 05/29/22 History escitalopram oxalate 20 mg tablet 20 mg PO DAILY 02/14/22 05/29/22 History ondansetron 4 mg disintegrating mg PO PRN 02/14/22 05/29/22 History tablet 103-folic acid 400 tab PO 05/09/22 05/29/22 History mcg-omeg3 32.5 mg-dha-fish oil chew tablet ( with DHA and Folic Acid) Allergies Allergy/AdvReac Type Severity Reaction Status Date / Time tetracycline AdvReac Mild Dizziness, Verified 05/29/22 11:28 blurred vision, upset stomach Focused Exam Airway Mallampti: II TM distance: >3 FB Neck ROM: full Anesthesia Risk Status Procedure Time Seen by Provider: 10:27 Date Seen: 06/04/22 History Anesthesia history: general and epidural History of anesthesia reactions: No Family history of reaction to anesthesia: No Status Dentition: intact/complete Risk Assessed to be at risk for difficult intubation: No Assessment and Plan Assessment and plan (1) BMI 40.0-44.9, adult: Status: Acute (2) : Status: Acute Plan Second . successful epidural used for C/S on the first. No issues with epidural placement per patient. Planning C/S 06/20. discusssed spinal anesthetic with duramorph and TAPS blocks. No contraindication to proceeding
--- NOTE | 2022-06-04 11:00 | CRLHL7_ITS ---
For Patients: As a result of the Century Cures Act, medical imaging exams and procedure reports are released immediately into your electronic medical record. You may view this report before your referring provider. If you have questions, please contact your health care provider. INDICATION: BMI 40+ COMPARISON: 05/29/2022 TECHNIQUE: Real time rayo scale imaging of the fetus was performed. Without non-stress testing. FINDINGS: Sonographic imaging demonstrates a single living intrauterine gestation. Fetus demonstrates a regular cardiac rate of 144 beats per minute. Fetus has a vertex position. The amniotic fluid volume appears normal and there is a single deepest pocket measurement of 6.5 cm. The fetus was active and demonstrated normal breathing movements. There was normal flexion and extension of the trunk and extremities. IMPRESSION: Normal biophysical profile score of 8 out of 8. Dictated by Junior Woodruff MD @ 06/04/2022 11:33:48 AM (Electronically Signed)
== END 2022-06-04 09:57 | disposition home or self-care (01) ==
LOC: OR 09:56
PROVIDERS: Referring Provider Obstetrics & Gynecology; Visit Provider Anesthesiology
DX: O99.210 Obesity complicating pregnancy, unspecified trimester (principal); Z68.41 Body mass index [BMI] 40.0-44.9, adult; Z3A.00 Weeks of gestation of pregnancy not specified
CPT/HCPCS: 76819

== ENCOUNTER 2022-06-13 09:30 | Inpatient (IN) | payer OTHER, SELFPAY ==
[2022-06-13] VITALS (19 sets, daily range): BP systolic 88–139; BP diastolic 56–82; PULSE 59–90; RESP 16–18; TEMP 36.4–37.1; O2SAT 94–100; BMI 48.4
--- OUTSIDE RECORDS SUMMARY | 2022-06-13 09:01 | XMS_ITS | Encounter Summary ---
:1990 Author Organization [place] Address [address] [place] [address] Care Team Providers Name Role Phone Blank Lemos MD Primary Care Provider Blank Lemos MD Unavailable Anabell Shannon Unavailable Unavailable Kathleen Lacy CNM Unavailable Sharita Frias MD Unavailable Encounter Details Date Type Department Care Team Description 01/24/2022 Medical Correspondence [facility] Scan, MATERNAL Health Info Mgmt Non-Provider MEDICINE CE [facility] PROVIDER SERVICE [address] [place] [address] [place] [address] [facility] [phone] C[facility] Social History Tobacco Use Types Packs/Day [...] documented as of this encounter Care Teams Buckle Attacher Relationship Specialty Start Date End Date Blank Lemos, PCP - General Internal Medicine 04/22/[address] [place] [address] [place] [address] Blank Lemos, Assigned PCP 04/25/[address] [place] [address] K[place]AN RENO [address] Anabell Shannon Personal Advocate & 10/25/20 Liaison (PAL) Kathleen Lacy CNM Assigned OBGYN Provider 01/18/22 01/24/22 [address] [place] [address] Sharita Frias, Assigned OBGYN Provider 01/25/22 05/09/22 [address] [place] [address] documented as of this encounter
--- OUTSIDE RECORDS SUMMARY | 2022-06-13 09:01 | XMS_ITS | Encounter Summary ---
:1990 Author Organization [place] Address [facility] [place] [address] Care Team Providers Name Role Phone Blank Lemos MD Primary Care Provider Blank Lemos MD Unavailable Anabell Shannon Unavailable Unavailable Sharita Frias MD Unavailable Reason for Referral Diagnostic Imaging Ultrasound (Routine) - Pending Review Specialty Diagnoses / Procedures Referred By Contact Refer red To Contact Diagnoses abnormality affecting management of mother, antepartum, single or unspecified fetus Aimee Aguilar MD Procedures [facility] US Comprehensive Single F/U [address] [place] [address] Referral ID Status Reason Start Date Expiration Date Visits V isits Requested Authorized [id number] Pending 02/05/2022 02/05/2023 1 1 Review Reason for Visit Diagnostic Imaging Ultrasound (Routine) - Pending Review Specialty Diagnoses / Procedures Referred By Contact Refer red To Contact Diagnoses abnormality affecting management of mother, antepartum, single or unspecified fetus Aimee Aguilar MD Procedures [facility] US Comprehensive Single F/U [address] [place], [place] [address] Referral ID Status Reason Start Date Expiration Date Visits V isits Requested Authorized [id number] Pending 02/05/2022 02/05/2023 1 1 Review Encounter Details Date Type Department Care Team Description 03/05/2022 [facility] Aimee Fet al abnormality Maternal MD Sean affecting management Medicine Center [address] of mother, [place] antepartum, single [address] [place], [place] or un specified fetus [address] [address] [place], [place] [phone] [address] (Work) [phone] Social History Tobacco Use Types Packs/Day Years [...] Procedure Name Priority Date/Time Associated Comments Diagnosis [facility] US COMPREHENSIVE Routine 03/05/2022 9:49 AM abnormal ity Results for this SINGLE F/U CDT affecting procedure are i n management of the results mother, antepartum, section. single or unspecified fetus documented in this encounter Results [facility] US Comprehensive Single F/U (03/05/2022 9:49 [...] ABREU Study Date: 03/05/2022 9:05am Pat. NO: [id number] Referring ??MD: COCO ORTIZ Site: [facility] Associate Editor: Hood Mcwilliams RDMS : 1990 Age: 32 [...] 1 lb 5 ?oz EFW by ?Hadlock ([id number]-FL) Head / Face / Neck Biometry: Cooling Tower Operator ? 4.9 ? mm CM ?4.8 [...] documented previously: Heart / Thorax ?RVOT view. 5-ktbyvn-dixfztt view. ? Diaphragm. Spine ?Sacral spine. Gender: [...] are anticipat ed to be done in [place]. We recommend serial growth every 4-6 weeks [...] Pat. Name:Noemi ABREU Date: 9:05am Pat. NO: [id number] MD:CARMENCITA ORTIZ [facility] Fleming :1990Age:32 INDICATION BMI 40 METHOD [...] 1 lb 5 oz EFW by Hadlock (YWD-UH-ML-FL) Head / Face / Neck Biometry: Cooling Tower Operator 4.9 mm CM 4.8 mm Nasal [...] documented previously: Heart / Thorax RVOT view. 6-jiwsqw-olhvg ea view. Diaphragm. Spine Sacral spine. Gender: [...] are anticipat ed to be done in [place]. We recommend serial growth every 4-6 weeks [...] appeared no rmal. Aimee Aguilar MD [facility] US ORDERABLES documented in this encounter Visit Diagnoses Diagnosis abnormality affecting management o f mother, antepartum, single or unspecified fetus documented in this encounter Additional Health Concerns Assessment Noted Time PHQ-9 Depression Total Score: 2 11/06/2020 3:02 PM CDT documented as of this encounter Care Teams Musical Therapist Relationship Specialty Start Date End Date Blank Lemos, PCP - General Internal Medicine 04/22/18 [facility] KISHAN RENO [phone] Blank Lemos, Assigned PCP 04/25/18 [facility] KISHAN RENO [phone] Anabell Shannon Personal Advocate & 10/25/20 Liaison (PAL) Sharita Frias, Assigned OBGYN Provider 01/25/22 05/09/22 [address] [address] [place], [place] [id number] documented as of this encounter
--- OUTSIDE RECORDS SUMMARY | 2022-06-13 09:01 | XMS_ITS | Encounter Summary ---
:1990 Author Organization [place] Address [facility] [place] [address] Care Team Providers Name Role Phone Blank [...] Procedures [facility] US Comprehensive Single F/U [address] [place], [place] [address] Referral ID Status Reason Start Date Expiration Date Visits V isits Requested Authorized [id number] Pending 02/05/2022 02/05/2023 1 1 Review Reason for Visit Reason Comments Ultrasound L2-BMI 40 Encounter Details Date Type Department Care Team Description 02/05/2022 Office Visit [facility] Coco Ortiz APRN [facility] [address] [place] [address] abnormality Maternal Aimee Aguilar MD [address] [place], [place] [address] affecting management [facility] Center of mother, Kely antepartum, single or [address] unspecif ied fetus [address] (Primary Dx) [place] [phone] Social History Tobacco Use Types Packs/Day Years [...] ABREU Study Date: 03/05/2022 9:05am Pat. NO: [id number] Referring ??MD: COCO ORTIZ Site: [facility] Operators: Hood Mcwilliams RDMS : 1990 Age: 32 [...] 1 lb 5 ?oz EFW by ?Hadlock ([id number]-NV-[id number]-FL) Head / Face / Neck Biometry: Bliss Press Operator ? 4.9 ? mm CM ?4.8 [...] documented previously: Heart / Thorax ?RVOT view. 9-mqjcng-wdhdqth view. ? Diaphragm. Spine ?Sacral spine. Gender: [...] are anticipat ed to be done in [place]. We recommend serial growth every 4-6 weeks [...] Pat. Name:Noemi ABREU Date: 9:05am Pat. NO: [id number] MD:CARMENCITA ORTIZ [facility]Sandra Fleming :1990Age:32 INDICATION BMI 40 METHOD [...] 1 lb 5 oz EFW by Hadlock ([id number]-HH-[id number]-FL) Head / Face / Neck Biometry: Bliss Press Operator 4.9 mm CM 4.8 mm Nasal [...] documented previously: Heart / Thorax RVOT view. 8-gemjhd-oihri ea view. Diaphragm. Spine Sacral spine. Gender: [...] are anticipat ed to be done in [place]. We recommend serial growth every 4-6 weeks [...] appeared no rmal. Aimee Aguilar MD [facility] US ORDERABLES documented in this encounter Visit Diagnoses Diagnosis abnormality affecting management o f mother, antepartum, single or unspecified fetus - Primary abnormality affecting management o f mother, antepartum, single or unspecified fetus documented in this encounter Additional Health Concerns Assessment Noted Time PHQ-9 Depression Total Score: 2 11/06/2020 3:02 PM CDT documented as of this encounter Care Teams Manager Telecom Relationship Specialty Start Date End Date Blank Lemos, PCP - General Internal Medicine 04/22/[address] [place] [address] DR VASQUEZ, KISHAN [phone] Blank Lemos, Assigned PCP 04/25/18 [facility] [place] [address] Anabell Shannon Personal Advocate & 10/25/20 Liaison (PAL) Sharita Frias, Assigned OBGYN Provider 01/25/22 05/09/22 [address] [place] [address] documented as of this encounter
--- OUTSIDE RECORDS SUMMARY | 2022-06-13 09:01 | XMS_ITS | Clinical Summary ---
:1990 Author Organization [place] Address [address] [place] [address] Care Team Providers Name Role Phone Blank Lemos MD Primary Care Provider Blank Lemos MD Unavailable Anabell Shannon Unavailable Unavailable Allergies Active Allergy Reactions Severity Noted [...] High-risk , third trimester 08/07/2020 Overview: Clinic/Hospital: [facility] Partner Name: Micah Ultrasound predicts sex: female Childrens names/ages: n/a Previous labor experiences: n/a Waterbirth (interest, declined, ineligib le): n/a Level of education/occupation: currently unemployed d/t COVID Pertinent History: Bipolar, obesity clas s II PP contraception: minipill Hx PPD/Depression/Anxiety: Bipolar with anxiety & depression Peds provider: Aicha sotelo Plans for labor pain management: Open to [...] +HR HPV, not 16/18. Plan colp 10/07/18 [place]- No lesions seen, no Bx raisa en. [...] read by pt 01/08/21 Reminder MyChart 02/05/21 [place] not done. Tracking updated for 6 mo colp/pap due 05/09/21. 04/25/21 Reminder Анна- read by pt 05/27/21 Lost to follow-up [...] Date Resolved Date Tobacco abuse 09/22/2018 08/07/2020 Immunizations Name Administration Dates Next Due TD [...] PM CDT Pulse 76 09/30/2020 9:40 AM LODGE OFFICER Temperature 36.8 ??C (98.3 ??F) 10/18/2020 2:16 PM LODGE OFFICER Respiratory Rate 18 09/30/2020 9:40 AM LODGE OFFICER Oxygen Saturation 98% 09/29/2020 9:00 AM LODGE OFFICER Inhaled Oxygen Concentration - - Weight 104.8 [...] to co mplete this topic 64 Years) Insurance Payer Benefit Plan / Subscriber ID Effective Phone Address T ype Group Dates WORK COMP [employer] [id number] 2015-Pre [phone]MIN[address]RATORS sent [phone] [place] [address] [facility] [id number] 2021-Pres [phone] [address] [employer]ALTH[employer] COMMERCIAL ent [id number] [place] [address] Rena Abreu Worker's Self 1990 [phone] [id number] Compensation 4 (Home) [address] [place] [address] [facility] 1990 [phone] [id number] [address] YSABEL M [address] (Home) [place] [address] Advance Directives For more information, please contact: [phone] Latest Code Status on File Code Status [...] patient/ legal de cision maker Care Teams Automotive Glazier Relationship Specialty Start Date End Date Blank Lemos, PCP - General Internal Medicine 04/22/[address] [place] [address] DR VASQUEZ, KISHAN [phone] Blank Lemos, Assigned PCP 04/25/[address] [place] [address] K[place]AN R[place] [address] Anabell Shannon Personal Advocate & 10/25/20 Liaison (PAL)
--- OUTSIDE RECORDS SUMMARY | 2022-06-13 09:01 | XMS_ITS | Encounter Summary ---
:1990 Author Organization [place] Address [address] [place] [address] Care Team Providers Name Role Phone Blank [...] documented as of this encounter Care Teams Value Stream Coach Relationship Specialty Start Date End Date Blank Lemos, PCP - General Internal Medicine 04/22/[address] [place] [address] KISHAN RENO [phone] Blank Lemos, Assigned PCP 04/25/18 [facility] K[place]AN [place] [address] Kathleen Lacy CNM Assigned OBGYN Provider 06/01/20 11/23/21 Cipriano [place] [phone] Anabell Shannon Personal Advocate & 10/25/20 Liaison (PAL) documented as of this encounter
--- OUTSIDE RECORDS SUMMARY | 2022-06-13 09:01 | XMS_ITS | Encounter Summary ---
:1990 Author Organization [place] Address [facility] [place] [address] Care Team Providers Name Role Phone Blank Lemos MD Primary Care Provider Blank Lemos MD Unavailable Anabell Shannon Unavailable Unavailable Sharita Frias MD Unavailable Reason for Referral Diagnostic Imaging Ultrasound (Routine) - Pending Review Specialty Diagnoses / Procedures Referred By Contact Refer red To Contact Diagnoses related condition, antepartum Carmencita Ortiz, Procedures [address] [address] Referral ID Status Reason Start Date Expiration Date Visits V isits Requested Authorized [id number] Pending 01/26/2022 01/26/2023 1 1 Review Reason for Visit Diagnostic Imaging Ultrasound (Routine) - Pending Review Specialty Diagnoses / Procedures Referred By Contact Refer red To Contact Diagnoses related condition, antepartum Carmencita Ortiz, Procedures [address] [address] Referral ID Status Reason Start Date Expiration Date Visits V isits Requested Authorized [id number] Pending 01/26/2022 01/26/2023 1 1 Review Encounter Details Date Type Department Care Team Description 02/05/2022 Hospital Encounter [facility] Federico Ortiz APRN MECHANICAL EQUIPMENT TEST ENGINEER [facility] [address] [place] [address] related Maternal Aimee Aguilar MD [address] [place] [address] condition, Medicine Center antepartum [place] [address] [place] [address] Social History Tobacco Use Types [...] Procedure Name Priority Date/Time Associated Comments Diagnosis [facility] US COMPREHENSIVE Routine 02/05/2022 11:12 relate d Results for this SINGLE AM CDT condition, procedure are i n antepartum the results section. documented in this encounter Results [facility] US Comprehensive Single (02/05/2022 11:12 AM [...] ABREU Study Date: 02/05/2022 10:22am Pat. NO: [id number] Referring ??MD: COCO ORTIZ Site: [facility] Drug Purchaser: Dion mora RDMS : 1990 Age: 32 [...] lb 11 ? oz EFW by ?Hadlock ([id number]-FL) Head / Face / Neck Biometry: Netbackup Engineer ? 5.4 ? mm CM ?3.2 [...] vena cava. Inferior vena cava. 3-vessel view. 9-voxhfm-hymuitb view. Cardiac position. ? Cardiac size. Cardiac [...] a comprehensive ultrasound. She is referred from [place] for BMI > 40. I discussed the findings on today's ultr asound with the patient. I reviewed the limitations of ultrasound both in detecting aneuploidy and structural abnormalities. Ultrasound, when views completed, can routinely dete ct 80-90% of structural abnormalities. She had low risk cell free DNA for genetic screening this . Follow-up is scheduled here [facility] for [facility] complex care to reassess anatomy that was suboptimally seen today. Additional surveillance is recommended in the (growth US every 4-6 weeks, weekly BPP at 34 weeks) and I assume that this will be done in [place]. Return to primary provider for continued care. If you have questions regarding today's evaluation or if we can be of further service, please contact the Maternal- Medicine Center. Procedure Note Aimee Aguilar MD - 02/05/2022Form atting of this note might be different from the original. Comprehensive Pat. Name:Noemi ABREU Date: 10:22am Pat. NO: [id number] MD:CARMENCITA ORTIZ Site:[facility]rapher:Dion Cruz RDMS :1990Age:32 INDICATION [...] 0 lb 11 oz EFW by Hadlock (BWX-PU-EE-FL) Head / Face / Neck Biometry: Netbackup Engineer 5.4 mm CM 3.2 mm Nuchal [...] vena cava. Inferior vena cava. 3-vessel view. 9-iuzaya-wkrrfgr view. Cardiac position. Cardiac size. Cardiac rhythm. [...] a comprehensive ultrasound. She is referred from [place] for BMI > 40. I discussed the findings on today's ultr asound with the patient. I reviewed the limitations of ultrasound both in detecting aneuploidy and structural abnormalities. Ultrasound, when views completed, can routinely dete ct 80-90% of structural abnormalities. She had low risk cell free DNA for genetic screening this . Follow-up is scheduled here in [facility] hospital for respiratory and complex care to reassess anatomy that was suboptimally seen today. Additional surveillance is recommended in the (growth US every 4-6 weeks, weekly BPP at 34 weeks) and I assume that this will be done in [place]. Return to primary provider for continued care. [...] cervix appears long and closed. Carmencita Ortiz STOCK PARTS INSPECTOR MECHANICAL EQUIPMENT TEST ENGINEER IMG [facility] US ORDERABLES documented in this encounter Visit Diagnoses Diagnosis related condition, antepartum documented in this encounter Additional Health Concerns Assessment Noted Time PHQ-9 Depression Total Score: 2 11/06/2020 3:02 PM CDT documented as of this encounter Care Teams Laborer Chemical Processing Relationship Specialty Start Date End Date Blank Lemos, PCP - General Internal Medicine 04/22/18 [facility] KISHAN RENO [phone] Blank Lemos, Assigned PCP 04/25/18 [facility] KISHAN RENO [phone] Anabell Shannon Personal Advocate & 10/25/20 Liaison (PAL) Sharita Frias, Assigned OBGYN Provider 01/25/22 05/09/22 [address] [place] [address] documented as of this encounter
--- OUTSIDE RECORDS SUMMARY | 2022-06-13 09:01 | XMS_ITS | Encounter Summary ---
:1990 Author Organization [place] Address [address] [place] [address]. [place] [address] Care Team Providers Name Role Phone Blank Lemos MD Primary Care Provider Blank Lemos MD Unavailable Kathleen Lacy CNM Unavailable Anabell Shannon Unavailable Unavailable Reason for Visit Reason Comments Care Delivered a girl weighing 7 lbs 15 oz on 09/28/2020 via Contraception Would like the mini pill Encounter Details Date Type Department Care Team Description 11/05/2020 [facility] Blu follow-up (Primary [place] [address] Dx) [address] [place], [place] [address] [address] [place], [place] [phone] [address] (Work) [phone] Social History Tobacco Use Types Packs/Day Years [...] Body Mass Index 41.1 09/28/2020 8:52 AM TOOL ROOM MACHINIST documented in this encounter Progress Notes Sharita [...] documented as of this encounter Care Teams Rn Burn Relationship Specialty Start Date End Date Blank Lemos, PCP - General Internal Medicine 04/22/[address] [place] [address] K[place]AN RENO [address] Blank Lemos, Assigned PCP 04/25/18 [facility] KISHAN RENO [address] Kathleen Lacy CNM Assigned OBGYN Provider 06/01/20 11/23/21 K[place] [address] Anabell Shannon Personal Advocate & 10/25/20 Liaison (PAL) documented as of this encounter
--- OUTSIDE RECORDS SUMMARY | 2022-06-13 09:01 | XMS_ITS | Encounter Summary ---
:1990 Author Organization [place] Address [facility] [place] [address] Care Team Providers Name Role Phone Blank Lemos MD Primary Care Provider Blank Lemos MD Unavailable Anabell Shannon Unavailable Unavailable Sharita Frias MD Unavailable Reason for Visit Reason Comments Ultrasound L2- BMI 40 Encounter Details Date Type Department Care Team Description 01/29/2022 PRE VISIT [facility], Ultrasound (L2- BMI 40) Maternal Medicine [facility] [address] [place] [address] Social History Tobacco Use Types [...] documented as of this encounter Care Teams Photograph Inspector Relationship Specialty Start Date End Date Blank Lemos, PCP - General Internal Medicine 04/22/[address] [place] [address] KISHAN RENO [phone] Blank Lemos, Assigned PCP 04/25/[address] [place] [address] KISHAN RENO [address] Anabell Shannon Personal Advocate & 10/25/20 Liaison (PAL) Sharita Frias, Assigned OBGYN Provider 01/25/22 05/09/22 [address] [place] [address] documented as of this encounter
--- OUTSIDE RECORDS SUMMARY | 2022-06-13 09:01 | XMS_ITS | Encounter Summary ---
:1990 Author Organization [place] Address [address] [facility] [place] [place] [address] Care Team Providers Name Role Phone Blank Lemos MD Primary Care Provider Blank Lemos MD Unavailable Kathleen Lacy CNM Unavailable Anabell Shannon Unavailable Unavailable Encounter Details Date Type Department Care Team Description 11/27/2020 Medical Correspondence [facility] Scan, [facility] Non-Provider POST-ANDIE Srvcs DEPRESSION SCALE [address] [place] [address] [place] [address] WELL-CHILD VISITS [phone] Social History Tobacco Use Types Packs/Day Years [...] documented as of this encounter Care Teams Marine Cargo Inspector Relationship Specialty Start Date End Date Blank Lemos, PCP - General Internal Medicine 04/22/[address] [place] [address] KISHAN RENO [phone] Blank Lemos, Assigned PCP 04/25/[facility] KISHAN RENO [address] Kathleen Lacy CNM Assigned OBGYN Provider 06/01/20 11/23/21 [place] [address] Anabell Shannon Personal Advocate & 10/25/20 Liaison (PAL) documented as of this encounter
--- OUTSIDE RECORDS SUMMARY | 2022-06-13 09:01 | XMS_ITS | Encounter Summary ---
:1990 Author Organization [place] Address [address] [place] [address] Care Team Providers Name Role Phone Blank [...] documented as of this encounter Care Teams Civil Lawyer Relationship Specialty Start Date End Date Blank Lemos, PCP - General Internal Medicine 04/22/[address] [place] [address] KISHAN RENO [phone] Blank Lemos, Assigned PCP 04/25/[address] [place] [address] KISHAN RENO [phone] Anabell Shannon Personal Advocate & 10/25/20 Liaison (PAL) Sharita Frias, Assigned OBGYN Provider 01/25/22 05/09/22 [address] [place] [address] documented as of this encounter
--- OUTSIDE RECORDS SUMMARY | 2022-06-13 09:01 | XMS_ITS | Encounter Summary ---
:1990 Author Organization [place] Address [address] [facility] [place] [address] Care Team Providers Name Role Phone Blank Lemos MD Primary Care Provider Blank Lemos MD Unavailable Kathleen Lacy CNM Unavailable Anabell Shannon Unavailable Unavailable Encounter Details Date Type Department Care Team Description 10/03/2020 Medical Correspondence [facility] Scan, EPISODE SUMMARY Health Info Mgmt Non-Provider REPORT [facility] [address] [place] [address] Social History Tobacco Use Types [...] documented as of this encounter Care Teams Coat Fitter Relationship Specialty Start Date End Date Blank Lemos, PCP - General Internal Medicine 04/22/[address] [place] [address] KISHAN RENO [phone] Blank Lemos, Assigned PCP 04/25/[address] [place] [address] KISHAN RENO [address] Kathleen Lacy CNM Assigned OBGYN Provider 06/01/20 11/23/21 [place] [address] Anabell Shannon Personal Advocate & 10/25/20 Liaison (PAL) documented as of this encounter
--- OUTSIDE RECORDS SUMMARY | 2022-06-13 09:01 | XMS_ITS | Encounter Summary ---
:1990 Author Organization [place] Address [facility] 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); Visit Clinic Latanya Hurt MD Routine follow-up [address] [place] [address] [place], [place] [phone] Social History Tobacco Use Types Packs/Day Years [...] Types DNA Cervical (11/06/2020 2:54 PM CDT) [facility] Method Time Signature HPV Source SurePath 11/06/2020 [place] 2:50 PM CDT [facility] HPV 16 DNA Negative NEG^Negat 11/12/2020 [facility] yakelin 2:05 PM CDT [facility] HPV 18 DNA Negative NEG^Negat 11/12/2020 [facility] 2:05 PM CDT [facility] Other HR HPV Positive (A) NEG^Negat 11/12/2020 [facility] 2:05 PM CDT [facility] Final This patient's sample is pos itive for other HR HPV DNA (types 31, 33, 35, 39, 45, 51, 52, 11/12/2020 [facility] 56, 58, 59, 66 or 68), not H PV 16 or HPV 18 DNA. This result requires clinical correlation 2:05 PM CDT [facility] with concurrent cytology findings. [facility] Comment: This test was developed and its performa nce characteristics determined by the [facility], Molecular Diagnostics Laboratory. It has not been [...] Cervical Cells 11/06/2020 2:5 0 PM CDT [facility] Specimen Anatomical Collection Method Collection Time Receive d Time (Source) Location / / Volume Laterality Cervical Cells 11/06/2020 2:54 PM 021 2:55 CDT PM CDT Sharita Salinas MD LAB - BLOOD ORDERABLES Performing Organization Address City/State/ZIP Code Phon e Number [facility] [address] [place] [address] [facility] [address] [place] [address] [facility] Pap imaged thin layer diagnostic with HPV (select HPV order below) (11/06/2020 2:50 PM CDT) Component Value Ref Test Analysis Performed At Patholo gist Range Method Time Signature PAP NIL COPATH Copath Report COPATH Patient Name: RENA RESENDIZ MR#: [id number] Specimen #: [id number] Collected: 11/06/2020 Received: 11/07/2020 Reported: 11/08/2020 15:09 Ordering Phy(s): SHARITA SALINSA For improved result formatting, select 'View Enhanced [...] or other cancer s. COLLECTION SITE: Client: ??[facility] Location: TERESSA (Sandra) The technical component of this testing was completed at the [facility], with the professional compo nent performed at the [facility], [address] [place] [address], [place] [address] ([phone]) Specimen (Source) Anatomical Collection Method Collection Time [...] documented as of this encounter Care Teams Preconstruction Manager Relationship Specialty Start Date End Date Blank Lemos, PCP - General Internal Medicine 04/22/18 [facility] KISHAN RENO [phone] Blank Lemos, Assigned PCP 04/25/18 [facility] KISHAN RENO [address] Kathleen Lacy CNM Assigned OBGYN Provider 06/01/20 11/23/21 [address] [place] [address] Anabell Shannon Personal Advocate & 10/25/20 Liaison (PAL) documented as of this encounter
--- OUTSIDE RECORDS SUMMARY | 2022-06-13 09:01 | XMS_ITS | Clinical Summary ---
:1990 Author Organization [facility] [place] [address] Care Team Providers Name Role Phone Evelyn Arentt NP Primary Care Provider [phone] Allergies Active Allergy Reactions Severity Noted [...] Name Administration Dates Next Due COVID-19 vaccine (Acclaimd 07/26/2021, 12/08/2020, 30mcg/0.3mL) PF, MDV Td (Age [...] luis e DO Complications: None Delivery Location: [facility]) Current Last Filed Vital Signs Vital Sign Reading Time Taken Comments Blood Pressure 120/76 01/02/2022 1:19 PM CDT Pulse 72 01/02/2022 1:19 PM CDT Temperature 37 ??C (98.6 ??F) 09/16/2021 3:22 PM CHAMBER WALKER Respiratory Rate 15 01/02/2022 1:19 PM CDT Oxygen Saturation 97% 09/16/2021 3:22 PM CHAMBER WALKER Inhaled Oxygen Concentration - - Weight 103.4 [...] 12/25/2024 12/25/2021, 12/25/2021, 11/07/2020 ([facility] Additional history exists Tetanus booster 07/09/2030 07/09/2020, 04/10/2016, 10/08/2008, Additional history exists Tdap Completed 07/09/2020, 04/10/2016 Results Not on filefrom Last 3 Months Additional Health Concerns Infection Onset Date Last Indicated Rule-Out C.diff 12/12/2020 12/12/2020 Insurance Payer Benefit Plan / Subscriber ID Effective Dates Phone Addre ss Type Group [facility] [id number] 2020-Santos [place] [id number] [place] [address] Advance Directives Latest Code Status on File Code Status Date Activated Date Inactivated Comments Full Code 12/26/2011 7:11 AM 12/26/2011 2:47 PM Care Teams Cooling Machine Operator Relationship Specialty Start Date End Date Evelyn Arnett, FURNACE FITTER PCP - General Nurse Practitioner 12/27/20 [address] [place] [address]
--- OUTSIDE RECORDS SUMMARY | 2022-06-13 09:01 | XMS_ITS | Encounter Summary ---
:1990 Author Organization [place] Address [address] [place] [address] Care Team Providers Name Role Phone Blank Lemos MD Primary Care Provider Blank Lemos MD Unavailable Kathleen Lacy CNM Unavailable Reason for Visit Reason Comments Surgical Followup check incision - has been ir ritated since surgery, but worsening now with odor Encounter Details Date Type Department Care Team Description 10/18/2020 Office Visit [facility] Yonathan Giraldo for postoperative wound check (Primary Dx); [facility] MD Avelino Morbid obesity (H) [place] [address] [facility] [address] [place], [place] [address] [place] [address] Social History Tobacco Use Types [...] with No / Unsure 10/18/2020 2:11 PM CANVAS GOODS FABRICATOR someone who was confirmed or suspected to have Coronavirus / COVID-19? documented as of this encounter Last Filed Vital Signs Vital Sign Reading Time Taken Comments Blood Pressure 108/72 10/18/2020 2:16 PM CANVAS GOODS FABRICATOR Pulse - - Temperature 36.8 ??C (98.3 ??F) 10/18/2020 2:16 PM CANVAS GOODS FABRICATOR Respiratory Rate - - Oxygen Saturation - - Inhaled Oxygen Concentration - - Weight 105 kg (231 lb 6.4 oz) 10/18/2020 2:16 PM CANVAS GOODS FABRICATOR Height - - Body Mass Index 40.99 09/28/2020 8:52 AM CANVAS GOODS FABRICATOR documented in this encounter Progress Notes Yonathan [...] PP visit or prn Macho Giraldo MD AS GOODS FABRICATOR documented in this encounter Nursing Notes Shi [...] completed using cuff size largeReno Rinaldi CMA AS GOODS FABRICATOR documented in this encounter Plan of Treatment Not on filedocumented as of this encounter Visit Diagnoses Diagnosis Encounter for postoperative wound check - Primary Other specified aftercare following surg genia Morbid obesity (H) Morbid obesity documented in this encounter Additional Health Concerns Assessment Noted Time PHQ-9 Depression Total Score: 5 12/06/2020 7:02 AM CDT documented as of this encounter Care Teams Pest Control Supervisor Relationship Specialty Start Date End Date Blank Lemos MD PCP - General Internal Medicine 04/22/18 [address] [facility] KISHAN RENO [phone] Blank Lemos MD Assigned PCP 04/25/[address] [place] [address] KISHAN RENO [address] Kathleen Lacy CNM Assigned OBGYN Provider 06/01/20 11/23/21 [address] [place] [address] documented as of this encounter
--- OUTSIDE RECORDS SUMMARY | 2022-06-13 09:01 | XMS_ITS | Encounter Summary ---
:1990 Author Organization [place] Address [address] [place] [address] Care Team Providers Name Role Phone Blank [...] as of this encounter Care Teams Head Tennis Coach Relationship Specialty Start Date End Date Blank Lemos, PCP - General Internal Medicine 04/22/[address] [place] [address] KISHAN RENO [phone] Blank Lemos, Assigned PCP 04/25/[address] [place] [address] KISHAN RENO [phone] Anabell Shannon Personal Advocate & 10/25/20 Liaison (PAL) Sharita Frias, Assigned OBGYN Provider 01/25/22 05/09/22 [address] [place] [address] documented as of this encounter
--- OUTSIDE RECORDS SUMMARY | 2022-06-13 09:01 | XMS_ITS | Encounter Summary ---
:1990 Author Organization [place] Address [address] [place] [address] Care Team Providers Name Role Phone Blank [...] PCP - General Internal Medicine 04/22/[address] [place] [address] KISHAN RENO [phone] Blank Lemos, Assigned PCP 04/25/18 [facility] KISHAN RENO [address] Kathleen Lacy CNM Assigned OBGYN Provider 06/01/20 11/23/21 [address] [place] [phone] Anabell Shannon Personal Advocate & 10/25/20 Liaison (PAL) documented as of this encounter
--- OUTSIDE RECORDS SUMMARY | 2022-06-13 09:01 | XMS_ITS | Encounter Summary ---
:1990 Author Organization [place] Address [address] [place] [address] Care Team Providers Name Role Phone Blank [...] with No / Unsure 10/18/2020 2:11 PM [employer] someone who was confirmed or suspected to have Coronavirus / COVID-19? documented as of this encounter Plan of Treatment Not on filedocumented as of this encounter Visit Diagnoses Not on filedocumented in this encounter Additional Health Concerns Assessment Noted Time PHQ-9 Depression Total Score: 5 12/06/2020 7:02 AM CDT documented as of this encounter Care Teams Tracer Bullet Charging Machine Operator Relationship Specialty Start Date End Date Blank Lemos MD PCP - General Internal Medicine 04/22/[address] [place] [address] KISHAN RENO [phone] Blank Lemos MD Assigned PCP 04/25/[address] [place] [address] KISHAN RENO [phone] Kathleen Lacy CNM Assigned OBGYN Provider 06/01/20 11/23/21 [address] [place] [address] documented as of this encounter
--- OUTSIDE RECORDS SUMMARY | 2022-06-13 09:01 | XMS_ITS | Encounter Summary ---
:1990 Author Organization [place] Address [facility] [place] [address] Care Team Providers Name Role Phone Blank Lemos MD Primary Care Provider Blank Lemos MD Unavailable Anabell Shannon Unavailable Unavailable Sharita Frias MD Unavailable Reason for Referral Diagnostic Imaging Ultrasound (Routine) - Pending Review Specialty Diagnoses / Procedures Referred By Contact Refer red To Contact Diagnoses related condition, antepartum Carmencita Ortiz, Procedures [facility] ICE SCRAPER [facility] [address] [place] [address] Referral ID Status Reason Start Date Expiration Date Visits V isits Requested Authorized [id number] Pending 01/26/2022 01/26/2023 1 1 Review Consultation (Routine) - Pending Review Specialty Diagnoses / Procedures Referred By Contact Refer red To Contact Diagnoses related condition, antepartum Carmencita Ortiz APRN CNP [address] [address] Referral ID Status Reason Start Date Expiration Date Visits V isits Requested Authorized [id number] Pending 01/26/2022 01/26/2023 1 1 Review Encounter Details Date Type Department Care Team Description 01/26/2022 Transcribe Orders M [facility] LuisCaitlin graciela related Maternal Carmencita Carrington APRN condition , Medicine Center GLASS INSTALLER antepartum (Primary [facility] Dx) [address] [facility] [address] [place] [address] [phone] Social History Tobacco Use Types Packs/Day Years [...] ABREU Study Date: 02/05/2022 10:22am Pat. NO: [id number] Referring ??: COCO ORTIZ Site: [facility] Dtp Operator: Dion mora RDMS : 1990 Age: 32 [...] lb 11 ? oz EFW by ?Hadlock ([id number]) Head / Face / Neck Biometry: Inspector Eyeglass Frames ? 5.4 ? mm CM ?3.2 ? [...] vena cava. Inferior vena cava. 3-vessel view. 5-xrtsbj-vzzsecn view. Cardiac position. ? Cardiac size. Cardiac [...] a comprehensive ultrasound. She is referred from [place] for BMI > 40. I discussed the findings on today's ultr asound with the patient. I reviewed the limitations of ultrasound both in detecting aneuploidy and structural abnormalities. Ultrasound, when views completed, can routinely dete ct 80-90% of structural abnormalities. She had low risk cell free DNA for genetic screening this . [facility] is [facility] anatomy that was suboptimally seen today. Additional surveillance is recommended in the (growth US every 4-6 weeks, weekly BPP at 34 weeks) and I assume that this will be done in [place]. Return to primary provider for continued care. If you have questions regarding today's evaluation or if we can be of further service, please contact the [facility]. Procedure Note Aimee Aguilar MD - 02/05/2022Form atting of this note might be different from the original. Comprehensive Pat. Name:Noemi ABREU Date: 10:22am Pat. NO: [id number] :CARMENCITA ORTIZ [facility]Dion [facility] RDMS :1990Age:32 INDICATION BMI 40 METHOD [...] 1d Hadlock Humerus 31.0 mm 20w 2d [facility] Weight Calculation: EFW 322 g 58% Hadlock EFW (lb,oz) 0 lb 11 oz EFW by Hadlock ([id number]) Head / Face / Neck Biometry: Inspector Eyeglass Frames 5.4 mm CM 3.2 mm Nuchal fold [...] vena cava. Inferior vena cava. 3-vessel view. 3-kqpdgz-hzpasah view. Cardiac position. Cardiac size. Cardiac rhythm. [...] a comprehensive ultrasound. She is referred from [place] for BMI > 40. I discussed the [...] assume that this will be done in [place]. Return to primary provider for continued care. [...] appears long and closed. Carmencita Ortiz APRN GLASS INSTALLER IMG M US ORDERABLES documented in this encounter Visit Diagnoses Diagnosis related condition, antepartum - Primary related condition, antepartum documented in this encounter Additional Health Concerns Assessment Noted Time PHQ-9 Depression Total Score: 2 11/06/2020 3:02 PM CDT documented as of this encounter Care Teams Shock Absorption Floor Layer Relationship Specialty Start Date End Date Blank Lemos, PCP - General Internal Medicine 04/22/18 [address] [facility] KISHAN RENO [address] Blank Lemos, Assigned PCP 04/25/18 [facility] KISHAN RENO [phone] Anabell Shannon Personal Advocate & 10/25/20 Liaison (PAL) Sharita Frias, Assigned OBGYN Provider 01/25/22 05/09/22 [address] [place] [address] documented as of this encounter
--- OUTSIDE RECORDS SUMMARY | 2022-06-13 09:01 | XMS_ITS | Encounter Summary ---
:1990 Author Organization [place] Address [address] [place] [address] Care Team Providers Name Role Phone Blank Lemos MD Primary Care Provider Blank Lemos MD Unavailable Kathleen Lacy CNM Unavailable Reason for Visit Reason Comments Laboring Auth/Cert Specialty Diagnoses / Procedures Referred By Contact Refer red To Contact solution specialist Diagnoses Indication for care in labor or delivery Indication for care in labor or delivery Rh Procedures L AND D [address] [place], [place] [address] Phone: Fax: Referral ID Status Reason Start Date Expiration Date Visits Requ ested Visits Authorized [id number] 1 1 Encounter Details Date Type Department Care Team Description 09/28/2020 - [facility] Stevan Jones, CNM [address] [place] [address] Indication for care in labor or delivery (Primary Dx); 09/30/2020 Encounter [facility] [place] [address] [place], [place] [id number] Postoperative state [address] [place] [address] Social History Tobacco Use Types [...] with No / Unsure 09/28/2020 8:47 AM HOME CHILD CARE PROVIDER someone who was confirmed or suspected to have Coronavirus / COVID-19? documented as of this encounter Last Filed Vital Signs Vital Sign Reading Time Taken Comments Blood Pressure 118/72 09/30/2020 9:40 AM HOME CHILD CARE PROVIDER Pulse 76 09/30/2020 9:40 AM HOME CHILD CARE PROVIDER Temperature 36.8 ??C (98.2 ??F) 09/30/2020 9:40 AM HOME CHILD CARE PROVIDER Respiratory Rate 18 09/30/2020 9:40 AM HOME CHILD CARE PROVIDER Oxygen Saturation 98% 09/29/2020 9:00 AM HOME CHILD CARE PROVIDER Inhaled Oxygen Concentration - - Weight 112.9 kg (249 lb) 09/28/2020 8:52 AM HOME CHILD CARE PROVIDER Height 160 cm (5' 3) 09/28/2020 8:52 AM HOME CHILD CARE PROVIDER Body Mass Index 44.11 09/28/2020 8:52 AM HOME CHILD CARE PROVIDER documented in this encounter Discharge Summaries Danial Falcon MD - 09/30/2020 9:24 AM CST [facility] Obstetrics Post-Op / Discharge Summary Note Assessment and Plan: Assessment: Post-operative day #2 Low transverse primary section L&D complications: A 30 year oldakq-bnrh-xvm at 40w1d weeks estimated gestational age admitted [...] phosphate (FLEET ENEMA) 1 enema ??? Tdap (fygmnnl-gotdviuxjj-gcuuf pertussis) (ADACEL) injection 0.5 mL ??? tranexamic [...] studies have been ordered Danial Falcon MD CHILD CARE PROVIDER documented in this encounter Discharge Instructions Discharge InstructionsLakeshia Mullen RN - 09/30/2020 1:40 PM CST Postop Instructions Make an appointment to be seen in the clinic in 6 weeks. [facility]: [phone] Activity ?? Do not lift more than [...] questions or concerns after you return home. CHILD CARE PROVIDER documented in this encounter Medications at Time [...] Falcon MD - 09/30/2020 9:21 AM CST [facility] Obstetrics Post-Op / Progress Note Assessment and Plan: Assessment: Post-operative day #2 Low transverse primary section L&D complications: A 30 year oldxtw-gmhd-agh at 40w1d weeks estimated gestational age admitted [...] phosphate (FLEET ENEMA) 1 enema ??? Tdap (mrdvjyc-wkddatuvfc-rouem pertussis) (ADACEL) injection 0.5 mL ??? tranexamic [...] studies have been ordered Danial Falcon MD CHILD CARE PROVIDER Dina Germain MD - 09/29/2020 11:45 AM [...] prn HReno Jones CNM 09/28/2020 4:36 PM CHILD CARE PROVIDER Soledad Jones CNM - 09/28/2020 12:51 PM [...] H. Octavia Jones CNM 09/28/2020 2:12 PM CHILD CARE PROVIDER Soledad Jones CNM - 09/28/2020 10:48 AM [...] to Reassess short interval Soledad Jones CNM CHILD CARE PROVIDER documented in this encounter H&P Notes Wendy Gregg DO - 09/28/2020 7:18 PM CST [facility] Labor and Delivery Consultation note [...] orders Prepare for section. Wendy Gregg DO CHILD CARE PROVIDER Soledad Jones CNM - 09/28/2020 9:09 AM CST [facility] Labor Admission History & Physical Rena Resendiz is a 30 year old with an IUP at 40w1d ; , Partner/support Person: Micah Language Barrier: Barbadian Clinic: [facility] Provider: Robert Rena Resendiz [facility] on 09/28/2020 at 9:09 AM History [...] found, no interventions. Pt thinks this happened [id number] ??? TONSILLECTOMY Family History Problem Relation Age [...] labor processes Admit - see IP orders Birtney Jones CNM 09/28/2020 9:23 AM CHILD CARE PROVIDER documented in this encounter Miscellaneous Notes Plan of Care - Lakeshia Mullen RN - 09/30/2020 2:41 PM CST Discharge instructions reviewed with patient and . Understanding verbalized. Will discharge to home with and baby. CHILD CARE PROVIDER Plan of Care - Lakeshia Mullen RN [...] Support persons present. Plan: Anticipate discharge today. CHILD CARE PROVIDER Plan of Care - Karol Hayden RN - 09/30/2020 2:52 AM CST Pt meeting expected goals for shift. Positive attachment behaviors noted with . Pain managed with scheduled meds - See MAR. Support person Micah at bedside and attentive to pt needs. pt encouraged to complete discharge paperwork/videos. Will continue to monitor and adjust plan as needed. CHILD CARE PROVIDER Note - Elisabeth Shi RN - 09/29/2020 [...] questions answered. Encouraged to call for assistance. CHILD CARE PROVIDER Plan of Care - Kathleen Wright RN - 09/29/2020 7:59 PM CST Pt up ambulating independently. Voiding without difficulty. Incision covered . Reports adequate paincontrol with current pain plan. Family present and supportive. Meeting expected goals. Mother attentive to infants needs. infant, using nipple shield. CHILD CARE PROVIDER Plan of Care - Maria Del Rosario [...] supportive today. Maria Del Rosario Steven RN CHILD CARE PROVIDER Plan of Care - Kathleen Hurley RN [...] gluten free diet. FOB here and supportive. CHILD CARE PROVIDER L&D Delivery Note - Wendy Gregg DO [...] Procedure Details: See operative note Yue Female-Rena [[id number]] Labor Event Times Labor onset date: 09/28/20 [...] Normal 1:1 continuous labor support provided by?: electrician journeyman wireman/Placenta Date and Time Delivery Date: 09/28/20 Delivery Time: 8:09 PM Placenta Date/Time: 09/28/2020 8:10 PM Vaginal Counts [place] Suture [place] Sponges Instruments Initial counts Added to count [...] 3 Vessels Complications: Nuchal Gases Sent?: Yes [place] Resuscitation Methods: None [place] Measurements Weight: 7 lb 15 oz Length: [...] present?: Neg Delivery (Maternal) (Provider to Complete) ([id number]) Episiotomy: None Perineal lacerations: None Blood Loss Mother: Rena Resendiz #[id number] Start of Mother's Information IO Blood Loss 09/28/20 0530 - 09/29/20 0634 None End of Mother's Information Mother: Rena Resendiz #[id number] Delivery - Provider to Complete ([id number]) Delivering clinician: Wendy Gregg DO CNM Care: [...] Position: Left Occiput Anterior Wendy Gregg DO CHILD CARE PROVIDER Plan of Care - Maricruz Rogers RN - 09/28/2020 11:48 PM CST Data: Rena Resendiz transferred to [facility] via fruit express agent at 1135. Baby transferred via parent's arms. Action: Receiving unit notified of transfer: Yes. Patient and family notified of room change. Reportgiven to Kathleen TOLLIVER at 2330. Belongings sent to receiving unit. Accompanied by Registered Nurse. Oriented patient to surroundings. Call light within reach. ID bands double-checked with receiving RN. Response: Patient tolerated transfer and is stable. CHILD CARE PROVIDER Op Note - Wendy Gregg DO - 09/28/2020 8:53 PM CST PREOPERATIVE DIAGNOSIS: A 30 year oldnih-untz-bpm at 40w1d weeks estimated gestational age admitted for labor with arrest of dilation, obesity. POSTOPERATIVE DIAGNOSES: A 30 year oldpnj-mygk-bgo at 40w1d weeks estimated gestational age admitted for labor with arrest of dilation, obesity. PROCEDURE: 1. Primary low transverse section. 2. Seprafilm placement for adhesiolysis. COMPLICATIONS: None apparent at time of procedure. ESTIMATED BLOOD LOSS: 400 mL. SURGEON: Wendy Gregg DO. INDICATIONS: A 30 year oldxsg-kqvn-mud at 40w1d weeks estimated gestational age admitted [...] counts were correct x2. WENDY GREGG DO CHILD CARE PROVIDER Plan of Care - Maria Del Rosario Steven RN - 09/28/2020 9:19 AM CST 0735: , 40w1d, here for rule out labor. Pt states she has been nelson every 2-2.5 min [id number] this morning. EUM and EFM placed. Admission [...] to progress. Maria Del Rosario Steven, RN CHILD CARE PROVIDER documented in this encounter Plan of Treatment Scheduled Orders Name Type Priority Associated Diagnoses Order S chedule See Providers Orders Lab Routine Release Upon Ordering for 1 Occurrences sta rting 09/28/2020 documented as of this encounter Procedures Procedure Name Priority Date/Time Associated Comments Diagnosis HEMOGLOBIN Routine 09/29/2020 7:02 AM Indication for care Re sults for this HOME CHILD CARE PROVIDER in labor or procedure are i n delivery the results section. PLACENTA PATH ORDER Routine 09/28/2020 8:13 PM Re sults for this AND INDICATIONS HOME CHILD CARE PROVIDER procedure ar e in the results section. SECTION 09/28/2020 7:48 PM Failure to progres s HOME CHILD CARE PROVIDER in labor TREPONEMA ABS W STAT 09/28/2020 9:23 AM Result s for this REFLEX TO RPR AND HOME CHILD CARE PROVIDER procedure are in TITER the results section. ABO/RH TYPE AND STAT 09/28/2020 9:23 AM Result s for this SCREEN HOME CHILD CARE PROVIDER procedure are i n the results section. SARS-COV-2 (COVID-19) STAT 09/28/2020 8:40 AM Results for this VIRUS RT-PCR HOME CHILD CARE PROVIDER procedure are i n the results section. documented in this encounter Results (ABNORMAL) Hemoglobin (09/29/2020 7:02 AM HOME CHILD CARE PROVIDER) athologist Signature Hemoglobin 10.7 (L) 11.7 - 15.7 09/29/2020 [place] g/dL 7:42 AM [facility] Specimen Anatomical Collection Method Collection Time Receive d Time (Source) Location / / Volume Laterality Blood specimen 09/29/2020 7:02 AM 021 7:03 (specimen) HOME CHILD CARE PROVIDER AM HOME CHILD CARE PROVIDER Wendy Gregg DO LAB - BLOOD ORDERABLES Performing Organization Address City/State/ZIP Code Phon e Number [place] [address] [phone] [place] [address] [phone] Placenta Path Order and Indications (PLACENTA) (09/28/2020 8:13 PM HOME CHILD CARE PROVIDER) Component Value Ref Test Analysis Performed At [facility] Range Method Time Signature Copath Patient Name: RENA RESENDIZ Report MR#: [id number] Specimen #: [id number] Collected: 09/28/2020 Received: 10/01/2020 Reported: 10/02/2020 12:04 [...] of this testing was completed at the [facility], with the professional compo nent performed at the [facility], [address] [place] [address] ??[phone] ([phone]) CPT Codes: A: 19344-TS2 COLLECTION SITE: Client: [facility] Location: RHOR (R) Specimen Anatomical Collection Method Collection Time Receive d Time (Source) Location / / Volume Laterality Specimen from 09/28/2020 8:13 PM 10/01/19 21 8:32 placenta HOME CHILD CARE PROVIDER AM HOME CHILD CARE PROVIDER (specimen) Soledad XIAO Performing Organization Address City/State/ZIP Code Phon e Number [place] Treponema Abs w Reflex to RPR and Titer (09/28/2020 9:23 AM HOME CHILD CARE PROVIDER) [facility] gist Method Time Signature Treponema Nonreactive NR^Nonrea 09/28/2020 [facility] ctive 5:03 PM HOME CHILD CARE PROVIDER [facility] Comment: Methodology Change: Test performed on DiaSorin Liaison XL by Treponema pallidum Total Antibodies Assay as of . Specimen Anatomical Collection Method Collection Time Receive d Time (Source) Location / / Volume Laterality Blood specimen 09/28/2020 9:23 AM 021 9:24 (specimen) HOME CHILD CARE PROVIDER AM HOME CHILD CARE PROVIDER Soledad Jones CNM LAB - BLOOD ORDERABLES Performing Organization Address City/State/ZIP Code Phon e Number [address] [address] [facility] ABO/Rh type and screen (09/28/2020 9:23 AM HOME CHILD CARE PROVIDER) [facility] gist Method Time Signature ABO O 09/28/2020 [place] 10:18 AM [facility] RH(D) Pos [facility] Antibody Neg 09/28/2020 [facility] Screen 10:18 AM [facility] Test Valid [place] 09/28/2020 [facility] Only At [facility] 9:43 AM [facility] Specimen 10/01/2020 09/28/2020 [place] Expires 9:43 AM [facility] Specimen Anatomical Collection Method Collection Time Receive d Time (Source) Location / / Volume Laterality Blood specimen 09/28/2020 9:23 AM 021 9:24 (specimen) HOME CHILD CARE PROVIDER AM HOME CHILD CARE PROVIDER Soledad Eugenejodie [facility] LAB - BLOOD BANK TEST ORDER Performing Organization Address City/State/ZIP Code Phon e Number [facility] [address] [place], [place] [address] [phone] [facility] [address] [phone] Asymptomatic SARS-CoV-2 COVID-19 Virus (Coronavirus) by PCR (09/28/2020 8:40 AM HOME CHILD CARE PROVIDER) [facility] Method Time Signature SARS-CoV-2 Nasopharyngeal 09/28/2020 [place] Virus 8:51 AM [facility] Source SARS-CoV-2 NEGATIVE 09/28/2020 [place] PCR Result 9:13 AM [facility] Comment: SARS-CoV2 (COVID-19) RNA not de tected, presumed negative. SARS-CoV-2 PCR Comment (Note) 09/28/2020 9:13 A [facility] Comment: Testing was performed using the [...] or clinical pr esentation suggests COVID-19. [facility] are certi fied under the Clinical Laboratory Improvement Amendments of 1988 (CLIA-88) as qualified to perform moderate and/or high complexity laboratory testin g. Specimen (Source) Anatomical Collection Method Collection Time Re ceived Time Location / / Volume Laterality Specimen from 09/28/2020 8:40 09/28/2020 nasopharyngeal AM HOME CHILD CARE PROVIDER 8:51 AM HOME CHILD CARE PROVIDER structure (specimen) Soledad Jones CNM LAB - MICRO GENERAL ORDERABL ES Performing Organization Address City/State/ZIP Code Phon e Number [place] [address] [address] [address] [phone] documented in this encounter Visit Diagnoses Diagnosis [...] acetaminophen (TYLENOL) tablet Given 09/30/2020 12:04 PM HOME CHILD CARE PROVIDER 975 mg 975 mg 975 mg, Oral, EVERY 6 HOURS, First dose on Thu09/28/20 at 2330, Maximum acetaminophen dose from all sources = 75 mg/kg/day not to exceed 4 grams/day., Post-procedure Given 09/30/2020 5:42 AM HOME CHILD CARE PROVIDER 975 mg Given 09/30/2020 12:09 AM HOME CHILD CARE PROVIDER 975 mg azithromycin 500 mg (ZITHROMAX) in 0.9% New Bag 09/28/2020 7:29 PM HOME CHILD CARE PROVIDER 500 mg NaCl 250 mL intermittent infusion 500 mg STAT, 500 mg, Intravenous, PRE-OP/PRE-PROCEDURE, Starting on Thu09/28/20 at 1851, For 1 dose, Give no sooner than 60 minutes prior to incision., Indications: Rupture of Membranes AND/OR Labor prior to , Pre-procedure dextrose 5% in lactated ringers infusion New Bag 09/29/2020 2:00 AM HOME CHILD CARE PROVIDER 125 mL/hr at 125 mL/hr, Intravenous, CONTINUOUS, Subsequent IV at nurse's discretion. DC IV when tolerating fluids or at nurse's discretion & saline lock., Post-procedure, Starting on Thu09/28/20 at 2330, Until Thu09/30/20 at 1703 escitalopram (LEXAPRO) tablet 20 mg Given 09/29/2020 10:37 PM HOME CHILD CARE PROVIDER 20 mg 20 mg, Oral, DAILY, First dose on Thu09/29/20 at 0900 fentaNYL (PF) (SUBLIMAZE) injection 50-100 Given 09/28/2020 9:04 AM HOME CHILD CARE PROVIDER 100 mcg mcg 50-100 mcg, Intravenous, EVERY [...] 2 mcg/mL, New Syringe/Cartridge 09/28/2020 6:02 PM HOME CHILD CARE PROVIDER bupivacaine (MARCAINE) 0.125% in NS premix for [...] set., Routine New Syringe/Cartridge 09/28/2020 10:08 AM HOME CHILD CARE PROVIDER ibuprofen (ADVIL/MOTRIN) tablet 800 mg Given 09/30/2020 10:24 AM HOME CHILD CARE PROVIDER 800 mg 800 mg, Oral, EVERY 6 HOURS, First dose on 09/29/20 at 2100, Give with food., Post-procedure Given 09/30/2020 4:33 AM HOME CHILD CARE PROVIDER 800 mg Given 09/29/2020 10:36 PM HOME CHILD CARE PROVIDER 800 mg ketorolac (TORADOL) injection 30 mg Given 09/29/2020 4:01 PM HOME CHILD CARE PROVIDER 30 mg 30 mg, Intravenous, EVERY 6 [...] minutes. , Post-procedure Given 09/29/2020 9:41 AM HOME CHILD CARE PROVIDER 30 mg Given 09/29/2020 3:48 AM HOME CHILD CARE PROVIDER 30 mg lactated ringers BOLUS 1,000 mL New Bag 09/28/2020 9:06 AM HOME CHILD CARE PROVIDER 1,000 mLs 999 mL/hr Intravenous, 1,000 mL, ONCE PRN, IF patient to have epidural or intrathecal narcotics and NOT pre-eclamptic, Starting on Thu09/28/20 at 0832, For 1 dose, IV bolus must be initiated 15-30 min prior to epidural or intrathecal, then IV fluids per labor orders. Nurse may discontinue this order if duplicate. lactated ringers infusion New Bag 09/28/2020 6:04 PM HOME CHILD CARE PROVIDER 125 mL/hr at 125 mL/hr, Intravenous, CONTINUOUS, Starting on Thu09/28/20 at 0900, Until Thu09/28/20 at 2317 New Bag 09/28/2020 10:09 AM HOME CHILD CARE PROVIDER 125 mL/hr naloxone (NARCAN) injection 0.2 mg [...] injection 4 mg Given 09/28/2020 4:24 PM HOME CHILD CARE PROVIDER 4 mg 4 mg, Intravenous, EVERY 6 HOURS PRN, nausea, vomiting, Administer over 2-5 Minutes, Starting on Thu09/28/20 at 0832, If nausea not resolved in 15 minutes, notify provider before proceeding to prochlorperazine (COMPAZINE) [if ordered]. Irritant. For ordered IV doses 0.1-4 mg, give IV Push undiluted over 2-5 minutes. ondansetron (ZOFRAN) injection 4 mg Given 09/29/2020 12:56 AM HOME CHILD CARE PROVIDER 4 mg 4 mg, Intravenous, EVERY 6 HOURS PRN, nausea, vomiting, Administer over 2-5 Minutes, Starting on Thu09/28/20 at 2316, If nausea not resolved in 15 minutes, notify provider before proceeding to prochlorperazine (COMPAZINE) [if ordered]. Irritant. For ordered IV doses 0.1-4 mg, give IV Push undiluted over 2-5 minutes., Post-procedure oxyCODONE (ROXICODONE) tablet 5 mg Given 09/29/2020 10:36 PM HOME CHILD CARE PROVIDER 5 mg 5 mg, Oral, EVERY 4 HOURS PRN, other, pain control or improvement in physical function. Hold dose for analgesic side effects., Starting on Thu09/28/20 at 2316, Notify provider to assess for uncontrolled pain or analgesic side effects. Hold while on MARKET GARDENER or with regular IV opioid dosing. Maximum total is 60 mg in 24 hours., Post-procedure Given 09/29/2020 1:04 PM HOME CHILD CARE PROVIDER 5 mg oxytocin (PITOCIN) 30 units in New Bag 09/28/2020 9:40 PM HOME CHILD CARE PROVIDER 100 mL/hr 100 mL/hr 500 mL 0.9% [...] mL/hr units in 500 mL 0.9% PM HOME CHILD CARE PROVIDER NaCl infusion 1-24 arslan-units/min (1-24 mL/hr), Intravenous, [...] ripening medication. Rate/Dose Change 09/28/2020 4:29 PM HOME CHILD CARE PROVIDER 5 arslan-units/min 5 mL/hr Rate/Dose Verify 09/28/2020 3:44 PM HOME CHILD CARE PROVIDER 4 arslan-units/min 4 mL/hr senna-docusate (SENOKOT-S/PERICOLACE) Given [...] loose stools., Post-procedure Given 09/29/2020 10:36 PM HOME CHILD CARE PROVIDER 1 tablet Given 09/29/2020 9:50 AM HOME CHILD CARE PROVIDER 1 tablet senna-docusate (SENOKOT-S/PERICOLACE) 8. 6-50 MG per tablet 2 tablet 2 tablet, Oral, 2 TIMES DAILY, First dos e on Thu09/28/20 at 2330, Hold for loose stools. Preferred agent for constipation related to op ioids. Hold for loose stools., Post-procedure simethicone (MYLICON) chewable tablet 80 mg Given 09/30/2020 3:27 AM HOME CHILD CARE PROVIDER 80 mg 80 mg, Oral, 4 TIMES DAILY PRN, other, gas, Starting on Thu09/28/20 at 2316, Chew., Post-procedure sodium chloride (PF) 0.9% PF flush 3 mL Given 09/29/2020 4:01 PM HOME CHILD CARE PROVIDER 3 mLs 3 mL, Intracatheter, EVERY 8 HOURS PRN, other, to lock peripheral IV dormant line, Starting on Thu09/28/20 at 2316, Post-procedure sodium citrate-citric acid (BICITRA) solution Given 7:29 PM HOME CHILD CARE PROVIDER 30 mLs 30 mL 30 mL, Oral, PRE-OP/PRE-PROCEDURE, Starting on Thu09/28/20 at 1850, For 1 dose, For gastric pH neutralization. GIVE WITHIN 45 minutes PRIOR TO SURGICAL PROCEDURE., Pre-procedure documented in this encounter Active and Recently Administered Medications Times are shown in HOME CHILD CARE PROVIDER. Scheduled Medication Order 09/28/2020 09/29/2020 09/30/2020 acetaminophen [...] Maricruz Rogers, UNRULY) STAT, 500 mg, Intravenous, PRE-OP/PRE-WY OCEDURE, Starting 09/28/20 at 1851, For 1 [...] minutes PRIOR TO SURGICAL PROCEDURE., Pre-procedure Tdap (eqqabhc-swgbabeotm-xioaq pertussis) (ADACEL) injection 0.5 mL 1000 (Canceled [...] Provider) 50-100 mcg, Intravenous, EVERY 1 HOUR [place] N, other, desired pain relief based on [...] divided doses [facility]. Do NOT give if patient has [...] For ordered IV doses 0.1-2mg give I TEENAGE BABYSITTER. Give each 0.4mg over 15 seconds in [...] or analgesic side effects. Hold while on MARKET GARDENER or with regular IV opioid dosing. Maximum [...] documented as of this encounter Care Teams Daily Release And Dupe Printer Relationship Specialty Start Date End Date Blank Lemos MD PCP - General Internal Medicine 04/22/[address] [place] [address] KISHAN RENO [phone] Blank Lemos MD Assigned PCP 04/25/[address] [place] [address] KISHAN RENO [phone] Kathleen Lacy CNM Assigned OBGYN Provider 06/01/20 11/23/21 [address] [place], [place] [id number] documented as of this encounter
--- OUTSIDE RECORDS SUMMARY | 2022-06-13 09:01 | XMS_ITS | Encounter Summary ---
:1990 Author Organization [place] Address [address] [place] [address]. [place] [address] Care Team Providers Name Role Phone Blank Lemos MD Primary Care Provider Blank Lemos MD Unavailable Kathleen Lacy CNM Unavailable Reason for Visit Auth/Cert Specialty Diagnoses / Procedures Referred By Contact Refer red To Contact laundry pricing clerk Diagnoses Indication for care in labor or delivery Indication for care in labor or delivery Rh Procedures L AND D [address] [place], [place] [address] Phone: Fax: Referral ID Status Reason Start Date Expiration Date Visits Requ ested Visits Authorized [id number] 1 1 Encounter Details Date Type Department Care Team Description 09/28/2020 Anesthesia Event [facility] Narinder Franklin PeriOp Services MD Vinicio [address] [place] [address] ANESTHESIA [id number] [facility] [address] [place], [place] [address] (Wo rk) Anesthesia Record [...] with No / Unsure 09/28/2020 8:47 AM STILL OPERATOR someone who was confirmed or suspected [...] Last vitals prior to Anesthesia Care Transfer: CRAFT RECRUITER VITALS 09/28/2020 2016 - 09/28/2020211509/28/2020 Pulse: 105 SpO2: 99 % Electronically Signed By: Narinder Franklin MD October 10, 2020 8:11 AM L OPERATOR Anesthesia Postprocedure Evaluation - Narinder Franklin MD [...] Last vitals prior to Anesthesia Care Transfer: CRAFT RECRUITER VITALS 09/28/20202015 - 09/28/2020211509/28/2020 Pulse: 105 SpO2: 99 % Electronically Signed By: Narinder Franklin MD October 10, 2020 8:10 AM L OPERATOR Anesthesia Preprocedure Evaluation - Narinder Franklin MD [...] found, no interventions. Pt thinks this happened [phone] ??? TONSILLECTOMY Allergies Allergen Reactions ??? Doxycycline [...] and realistic alternatives discussed. Questions answered and patient/sales representative livestock(s) expressed understanding. - Discussed with: Patient Postoperative Care Pain management: IV analgesics, Neuraxial analgesia. PONV prophylaxis: Ondansetron (or other 5HT-3), Dexamethasone or Solumedrol Comments: Narinder Franklin MD L OPERATOR documented in this encounter Miscellaneous Notes Anesthesia [...] (Last set prior to Anesthesia Care Transfer) CRAFT RECRUITER VITALS 09/28/20202015 - 09/28/2020205409/28/2020 Pulse: 105 SpO2: 99 % Electronically Signed By: Annalise Lux APRN CRNA September 28, 2020 8:55 PM L OPERATOR documented in this encounter Plan of Treatment Not on filedocumented as of this encounter Visit Diagnoses Not on filedocumented in this encounter Administered Medications Inactive Administered Medications - up to 3 most recent administrations Medication Order MAR Action Action Date Dose Rate Site ceFAZolin (ANCEF) intermittent Given 09/28/2020 7:53 PM STILL OPERATOR 2 g infusion 2 g in 100 mL dextrose PRE-MIX Routine, PRN, Starting on Thu09/28/20 at 195, Anesthesia Intra-op dexamethasone (DECADRON) injection Given 09/28/2020 7:52 PM STILL OPERATOR 4 mg PRN, Administer over 1 Minutes, Starting on Thu09/28/20 at 1951, Anesthesia Intra-op glycopyrrolate (ROBINUL) injection Given 09/28/2020 7:52 PM STILL OPERATOR 0.1 mg PRN, Administer over 1-2 Minutes, Starting on Thu09/28/20 at 1951, Anesthesia Intra-op ketorolac (TORADOL) injection Given 09/28/2020 8:44 PM STILL OPERATOR 30 mg PRN, Administer over 2 Minutes, Starting on Thu09/28/20 at 2044, Anesthesia Intra-op lidocaine 2%-EPINEPHrine 1:200,000 injec tion Given 09/28/2020 7:50 PM STILL OPERATOR 15 mLs EPIDURAL, PRN, Starting on Thu09/28/20 at 1950, Anesthesia Intra-op morphine (PF) (DURAMORPH) injection Given 09/28/2020 8:13 PM STILL OPERATOR 3 mg Intrathecal, PRN, Administer over 4-5 Minutes, Starting on Thu09/28/20 at 2013, Anesthesia Intra-op ondansetron (ZOFRAN) injection 4 mg Given 09/28/2020 7:52 PM STILL OPERATOR 4 mg 4 mg, Intravenous, EVERY 6 HOURS PRN, nausea, vomiting, Administer over 2-5 Minutes, Starting on Thu09/28/20 at 0746, If nausea not resolved in 15 minutes, notify provider before proceeding to prochlorperazine (COMPAZINE) [if ordered]. Irritant. For ordered IV doses 0.1-4 mg, give IV Push undiluted over 2-5 minutes. oxytocin (PITOCIN) 30 units in 500 mL 0.9% Given 09/28/2020 8:11 PM STILL OPERATOR 500 mLs NaCl infusion Intravenous, PRN, Starting on Thu09/28/20 at 2011, Anesthesia Intra-op phenylephrine (ZULMA-SYNEPHRINE) New Bag 09/28/2020 7:53 PM 50 mcg/m in 30 mL/hr injection STILL OPERATOR Intravenous, CONTINUOUS PRN, Starting on Thu09/28/20 at 1953, Anesthesia Intra-op documented in this encounter Additional Health Concerns Assessment Noted Time PHQ-9 Depression Total Score: 5 12/06/2020 7:02 AM CDT documented as of this encounter Care Teams Supervisor Special Services Relationship Specialty Start Date End Date Blank Lemos MD PCP - General Internal Medicine 04/22/18 [address] [facility] KISHAN RENO [phone] Blank Lemos MD Assigned PCP 04/25/18 [address] [facility] KISHAN RENO [phone] Kathleen Lacy, YARELI Assigned OBGYN Provider 06/01/20 11/23/21 [address] [place], [place] [address] documented as of this encounter
--- OUTSIDE RECORDS SUMMARY | 2022-06-13 09:01 | XMS_ITS | Encounter Summary ---
:1990 Author Organization [place] Address [facility] [place] [address] Care Team Providers Name Role Phone Blank Lemos MD Primary Care Provider Blank Lemos MD Unavailable Anabell Shannon Unavailable Unavailable Sharita Frias MD Unavailable Reason for Visit Reason Comments Ultrasound RL2-subopt anatomy Encounter Details Date Type Department Care Team Description 03/05/2022 Office Visit [facility] Aimee Aguilar abn ormality Maternal MD Sean [facility] [address] of mother, antepartum, [facility] 400 single or unspecified [address] [place], [place] fetus (Primary Dx) [address] [address] [place], [place] [phone] [address] (Work) [phone] Social History Tobacco Use Types Packs/Day Years [...] documented as of this encounter Care Teams Dental Assistant Relationship Specialty Start Date End Date Blank Lemos, PCP - General Internal Medicine 04/22/[address] [facility] [place] [address] Blank Lemos, Assigned PCP 04/25/[address] [facility] [place] [address] Anabell Shannon Personal Advocate & 10/25/20 Liaison (PAL) Sharita Frias, Assigned OBGYN Provider 01/25/22 05/09/22 [address] [place] [address] documented as of this encounter
--- OUTSIDE RECORDS SUMMARY | 2022-06-13 09:02 | XMS_ITS | Encounter Summary ---
:1990 Author Organization [place] Address [address] [place] [address] Care Team Providers Name Role Phone Blank [...] with No / Unsure 09/03/2020 1:45 PM TOOLSMITH someone who was confirmed or suspected to have Coronavirus / COVID-19? documented as of this encounter Plan of Treatment Not on filedocumented as of this encounter Visit Diagnoses Not on filedocumented in this encounter Additional Health Concerns Assessment Noted Time PHQ-9 Depression Total Score: 5 12/06/2020 7:02 AM CDT documented as of this encounter Care Teams Wireless Manager Relationship Specialty Start Date End Date Blank Lemos MD PCP - General Internal Medicine 04/22/[address] [place] [address] K[place]AN RENO [phone] Blank Lemos MD Assigned PCP 04/25/[address] [place] [address] K[place] RENO [phone] Kathleen Lacy CNM Assigned OBGYN Provider 06/01/20 11/23/21 [address] [place] [id number] documented as of this encounter
--- OUTSIDE RECORDS SUMMARY | 2022-06-13 09:02 | XMS_ITS | Encounter Summary ---
:1990 Author Organization [place] Address [facility] [place] [address] Care Team Providers Name Role Phone Blank Lemos MD Primary Care Provider Blank Lemos MD Unavailable Kathleen Lacy CNM Unavailable Reason for Visit Reason Comments Care Encounter Details Date Type Department Care Team Description 07/23/2020 Office [facility] Kathleen Lacy Enco unter for supervision of normal first in third trimester (Primary Dx); [facility] CNM Anxiety during in second trime ster, antepartum [place] [address] [place], [place] [address] [address] [place], [place] [phone] [address] (Work) [phone] Social History Tobacco Use Types Packs/Day Years [...] with No / Unsure 07/23/2020 1:56 PM MANAGER EQUITY someone who was confirmed or suspected to have Coronavirus / COVID-19? documented as of this encounter Last Filed Vital Signs Vital Sign Reading Time Taken Comments Blood Pressure 118/72 07/23/2020 2:00 PM MANAGER EQUITY Pulse - - Temperature - - Respiratory Rate - - Oxygen Saturation - - Inhaled Oxygen Concentration - - Weight 107.5 kg (237 lb) 07/23/2020 2:00 PM MANAGER EQUITY Height - - Body Mass Index 41.98 04/09/2020 1:36 PM CDT documented in this encounter Patient Instructions Patient InstructionsKathleen Lacy CNM - 07/23/2020 2:00 PM CST [email or web address] Evidence Based website Weeks 27 thru 32 [...] the end of the first trimester. GER EQUITY documented in this encounter Progress Notes Kathleen [...] clinic 2 weeks Kathleen Lacy APRN, CNM GER EQUITY documented in this encounter Nursing Notes Gonzalez [...] Pt. has never smoked. Gonzalez Mitchell MA GER EQUITY documented in this encounter Plan of Treatment [...] as of this encounter Care Teams Supervisor Broadloom Relationship Specialty Start Date End Date Blank Lemos MD PCP - General Internal Medicine 04/22/[address] [place] [address] KISHAN RENO [phone] Blank Lemos MD Assigned PCP 04/25/[address] [place] [address] K[place] R[place] [phone] Kathleen Lacy CNM Assigned OBGYN Provider 06/01/20 11/23/21 [address] [place] [address] documented as of this encounter
--- OUTSIDE RECORDS SUMMARY | 2022-06-13 09:02 | XMS_ITS | Encounter Summary ---
:1990 Author Organization [place] Address [address] [place] [address] Care Team Providers Name Role Phone Blank [...] with No / Unsure 07/09/2020 7:18 PM WIRE DROPPER someone who was confirmed or suspected to have Coronavirus / COVID-19? documented as of this encounter Plan of Treatment Not on filedocumented as of this encounter Visit Diagnoses Not on filedocumented in this encounter Additional Health Concerns Assessment Noted Time PHQ-9 Depression Total Score: 10 02/02/2020 8:23 AM CD T documented as of this encounter Care Teams Marketing Clerk Relationship Specialty Start Date End Date Blank Lemos MD PCP - General Internal Medicine 04/22/[address] [place] [address] KISHAN RENO [phone] Blank Lemos MD Assigned PCP 04/25/[address] [place] [address] K[place] RENO [phone] Kathleen Lacy CNM Assigned OBGYN Provider 06/01/20 11/23/21 [address] [place] [id number] documented as of this encounter
--- OUTSIDE RECORDS SUMMARY | 2022-06-13 09:02 | XMS_ITS | Encounter Summary ---
:1990 Author Organization [place] Address [address] [facility] [place] [address] Care Team Providers Name Role Phone Blank Lemos MD Primary Care Provider Blank Lemos MD Unavailable Kathleen LacyM Unavailable Reason for Referral (Routine) - Closed Specialty Diagnoses / Procedures Referred By Contact Refer red To Contact Diagnoses Encounter for supervision of normal first , third trimester Kathy Ingram Procedures TDAP VACCINE (Adacel, Boostrix) [[id number]] [place] SantosM [address] [address] Referral ID Status Reason Start Date Expiration Date Visits Requ ested Visits Authorized [id number] Closed 07/09/2020 07/09/2021 1 1 OLOGY TEACHER Reason for Visit Reason Comments Care 28w 4d GCT and tdap today, q uestions on COVID restrictions, back pain worsening x1-2wks, and hearb urn-vomits with Tums Encounter Details Date Type Department Care Team Description 07/09/2020 Office [facility] Kathy Davis for supervision of normal first , third trimester (Primary Dx); [facility] Dianna Benitez in third trimester [place] TUBING MACHINE OPERATORZeb DOWNS [address] [place] [address] [facility] Breana CHOUDHARY, [address] [place] [phone] Social History Tobacco Use Types Packs/Day [...] with No / Unsure 07/09/2020 8:25 AM PETROLOGY TEACHER someone who was confirmed or suspected to have Coronavirus / COVID-19? documented as of this encounter Last Filed Vital Signs Vital Sign Reading Time Taken Comments Blood Pressure 124/82 07/09/2020 8:31 AM PETROLOGY TEACHER Pulse - - Temperature - - Respiratory Rate - - Oxygen Saturation - - Inhaled Oxygen Concentration - - Weight 108.4 kg (239 lb) 07/09/2020 8:31 AM PETROLOGY TEACHER Height - - Body Mass Index 42.34 [...] since the end of the first trimester. OLOGY TEACHER documented in this encounter Progress Notes Kahty Ingram APRN CNM - 07/09/2020 8:30 AM [...] RPR and Titer TDAP VACCINE (Adacel, Boostrix) [[id number]] sucralfate (CARAFATE) 1 GM tablet 2. Heartburn [...] 2 weeks. Kathy Ingram DNP, GINNY, CNM OLOGY TEACHER documented in this encounter Nursing Notes Luz [...] HM Due: NONE Luz Maria Abreu CMA OLOGY TEACHER documented in this encounter Plan of Treatment Not on filedocumented as of this encounter Procedures Procedure Name Priority Date/Time Associated Diagnosis Comme nts TREPONEMA ABS W Routine 07/09/2020 9:29 AM Encounter for Resul ts for this REFLEX TO RPR AND PETROLOGY TEACHER supervision of ole abarca are in TITER normal first the results , third section. trimester GLUCOSE TOLERANCE Routine 07/09/2020 9:29 AM Encounter for Res ults for this GEST SCREEN 1 HOUR PETROLOGY TEACHER supervision of procedu re are in normal first the results , third section. trimester CBC WITH PLATELETS Routine 07/09/2020 9:29 AM Encounter for Re sults for this PETROLOGY TEACHER supervision of procedure are in normal first the results , third section. trimester documented in this encounter Results Treponema Abs w Reflex to RPR and Titer (07/09/2020 9:29 AM PETROLOGY TEACHER) [facility] Method Time Signature Treponema Nonreactive NR^Nonrea 07/10/[address] [facility] ctive 10:07 AM PETROLOGY TEACHER [facility] Comment: Methodology Change: Test performed on [employer] Liaison XL by Treponema pallidum Total Antibodies Assay as of . Specimen Anatomical Collection Method Collection Time Receive d Time (Source) Location / / Volume Laterality Blood specimen 07/09/2020 9:29 AM 020 9:30 (specimen) PETROLOGY TEACHER AM PETROLOGY TEACHER Kathy Ingram APRN, CNM LAB - BLOOD [facility] [place] Performing Organization Address City/State/ZIP Code Phon e Number [facility] [address] (ABNORMAL) CBC with platelets (07/09/2020 9:29 AM PETROLOGY TEACHER) [facility] Method Time Signature WBC 12.4 (H) 4.0 - 11.0 07/09/2020 [facility] 10e9/L 10:08 AM [facility] RBC Count 3.69 (L) 3.8 - 5.2 07/09/2020 [facility] 10e12/L 10:08 AM [facility] Hemoglobin 11.8 11.7 - 07/09/2020 [facility] 15.7 g/dL 10:08 AM [facility] Hematocrit 36.6 35.0 - 07/09/2020 [facility] 47.0 % 10:08 AM [facility] MCV 99 78 - 100 07/09/2020 [facility] fl 10:08 AM [facility] MCH 32.0 26.5 - 07/09/2020 [facility] 33.0 pg 10:08 AM [facility] MCHC 32.2 31.5 - 07/09/2020 [facility] 36.5 g/dL 10:08 AM [facility] RDW 15.3 (H) 10.0 - 07/09/2020 [place] 15.0 % 10:08 AM [facility] Platelet Count 321 150 - 450 07/09/2020 [place] 10e9/L 10:08 AM [facility] Specimen Anatomical Collection Method Collection Time Receive d Time (Source) Location / / Volume Laterality Blood specimen 07/09/2020 9:29 AM 020 9:30 (specimen) PETROLOGY TEACHER AM PETROLOGY TEACHER Kathy FARMER LAB - BLOOD [facility] [place] Performing Organization Address City/[facility]/ZIP Code Phon e Number [facility] [address] [place], [place] [address] [address] Glucose tolerance, gest screen, 1 hour (07/09/2020 9:29 AM PETROLOGY TEACHER) P athologist Signature Glu Gest Screen 105 60 - 129 07/10/2020 [place] 1hr 50g mg/dL 7:25 AM [facility] Specimen Anatomical Collection Method Collection Time Receive d Time (Source) Location / / Volume Laterality Blood specimen 07/09/2020 9:29 AM 020 9:30 (specimen) PETROLOGY TEACHER AM PETROLOGY TEACHER Kathy Ingram APRN, CNM LAB - BLOOD [facility] [place] Performing Organization Address City/[facility]/ZIP Code Phon e Number [facility] [address] [address] [place] [address] [address] [address] [address], [facility] [phone] documented in this encounter Visit Diagnoses Diagnosis Encounter for supervision of normal firs t , third trimester - Primary Heartburn during in third trim dewayne documented in this encounter Additional Health Concerns Assessment Noted Time PHQ-9 Depression Total Score: 10 02/02/2020 8:23 AM CD T documented as of this encounter Care Teams Straddle Bug Relationship Specialty Start Date End Date Blank Lemos MD PCP - General Internal Medicine 04/22/[address] [facility] [address] [place], [place] [address] Blank Lemos MD Assigned PCP 04/25/18 [address] [facility] [address] [place], [place] [phone] Kathleen Lacy CNM Assigned OBGYN Provider 06/01/20 11/23/21 [address] [place] [id number] documented as of this encounter
--- OUTSIDE RECORDS SUMMARY | 2022-06-13 09:02 | XMS_ITS | Encounter Summary ---
:1990 Author Organization [place] Address [facility] [place] [address] Care Team Providers Name Role Phone Blank Lemos MD Primary Care Provider Blank Lemos MD Unavailable Kathleen Lacy CNM Unavailable Reason for Visit Reason Onset Date Comments Refill Request 07/08/2020 escitalopram (LEXAPR O) 20 MG tablet Encounter Details Date Type Department Care Team Description 07/08/2020 Refill [facility] Blank Lemos, Re fill Request Clinic Dev [place] (escitalopram (LEXAPRO) [address] [place] [address] [facility] 20 MG tablet) [facility] [address] [place] [address] [place] [address] [phone] Social History Tobacco Use Types Packs/Day Years [...] with No / Unsure 07/09/2020 7:18 PM 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 Patient verbalized understanding. Oliva Craft RN [employer] Telephone Encounter - Blank Lemos MD - 07/10/2020 11:56 AM [employer]ARM [employer] Refill x 3 months - she is due for mental health follow up this month or Aug - ok if virtual Blank Lemos MD Internal Medicine/Pediatrics [facility] [employer] GARD[employer] WORK[employer] Telephone Encounter - Margarita Lowry RN - 07/10/2020 10:55 AM CST Routing refill request to provider for review/approval because: Positive test on 02/01/20. Margarita Lowry RN on 07/10/2020 at 10:56 AM [employer] documented in this encounter Plan of Treatment Not on filedocumented as of this encounter Visit Diagnoses Diagnosis Generalized anxiety disorder Bipolar I disorder (H) Bipolar I disorder, most recent episode (or current) unspecified documented in this encounter Additional Health Concerns Assessment Noted Time PHQ-9 Depression Total Score: 10 02/02/2020 8:23 AM CD T documented as of this encounter Care Teams Stopperer Assembler Relationship Specialty Start Date End Date Blank Lemos MD PCP - General Internal Medicine 04/22/[address] [place] [address] [place] [address] Blank Lemos MD Assigned PCP 04/25/[address] [place] [address] [place] [address] Kathleen Lacy CNM Assigned OBGYN Provider 06/01/20 11/23/21 [address] [place], [place] [id number] documented as of this encounter
--- OUTSIDE RECORDS SUMMARY | 2022-06-13 09:02 | XMS_ITS | Encounter Summary ---
:1990 Author Organization [place] Address [address] [facility] [place] [address] Care Team Providers Name Role Phone Blank Lemos MD Primary Care Provider Blank Lemos MD Unavailable Kathleen Lacy CNM Unavailable Reason for Visit Reason Comments Care 39 weeks and 4 days Encounter Details Date Type Department Care Team Description 09/24/2020 Office [facility] Rand Kam h-risk , third trimester (Primary Dx); [facility] GINNY Granados CNM Uterine size-date discrepancy in third t rimester; [place] [address] Excessive weight gain affect ing [address] [place], [place] [address] [address] [place], [place] [phone] [address] (Work) [phone] Social History Tobacco Use Types Packs/Day Years [...] with No / Unsure 09/24/2020 2:11 PM TOBACCO BALER someone who was confirmed or suspected to have Coronavirus / COVID-19? documented as of this encounter Last Filed Vital Signs Vital Sign Reading Time Taken Comments Blood Pressure 128/86 09/24/2020 2:13 PM TOBACCO BALER Pulse - - Temperature - - Respiratory Rate - - Oxygen Saturation - - Inhaled Oxygen Concentration - - Weight 112.9 kg (249 lb) 09/24/2020 2:13 PM TOBACCO BALER Height - - Body Mass Index 44.11 04/09/2020 1:36 PM CDT documented in this encounter Progress Notes Rand Kam APRN CNM - 09/24/2020 2:15 PM CST Rena Turner presents to clinic alone at 39w4d for a routine appointment. She reports she is feeling well and has no concerns. Normal movement. Denies bleeding, LOF, or regular, painful contractions. [place] like labor might be starting Thursday and [...] RTC in 1 week, sooner if problems. CCO BALER documented in this encounter Nursing Notes Gonzalez [...] smoking habits. Pt. has never smoked. +FM CCO BALER documented in this encounter Plan of Treatment [...] documented as of this encounter Care Teams Graduate Teaching Associate Relationship Specialty Start Date End Date Blank Lemos MD PCP - General Internal Medicine 04/22/[address] [place] [address] [place] [phone] Blank Lemos MD Assigned PCP 04/25/[address] [place] [address] [place] R[place] [id number] Kathleen Lacy CNM Assigned OBGYN Provider 06/01/20 11/23/21 [address] [place] [address] documented as of this encounter
--- OUTSIDE RECORDS SUMMARY | 2022-06-13 09:02 | XMS_ITS | Encounter Summary ---
:1990 Author Organization [place] Address [facility] [place] [address] Care Team Providers Name Role Phone Blank [...] Weeks Follow Up [address] [place] [address] Referral ID Status Reason Start Date Expiration Date Visits Requ ested Visits Authorized [id number] Closed 08/20/2020 08/20/2021 1 1 Encounter Details Date Type Department Care Team Description 09/03/2020 [facility] Robert, Encounter for Procedure [facility] [place] YARELI Rowe supervision of [address] normal f irst [address] in third [address] [place], [place] [address] [phone] Social History Tobacco Use Types Packs/Day Years [...] with No / Unsure 09/03/2020 1:45 PM SECTION LABORER someone who was confirmed or suspected to have Coronavirus / COVID-19? documented as of this encounter Plan of Treatment Not on filedocumented as of this encounter Procedures Procedure Name Priority Date/Time Associated Diagnosis Comme nts US OB FOLLOW UP >14 Routine 09/03/2020 1:47 PM Encounter for R esults for this WEEKS SECTION LABORER supervision of procedure are in normal first the results in third section. trimester documented in this encounter Results US OB >14 Weeks Follow Up (09/03/2020 1:47 PM SECTION LABORER) Anatomical Region Laterality Modality Abdomen/Pelvis Ultrasound Specimen (Source) Anatomical Location Collection Method / Collectio n Time Received Time / Laterality Volume Impressions 09/03/2020 4:32 PM SECTION LABORER ? [place] Gestation. ?? presentation: Cephalic Placenta: [...] No gross anomalies observed. Kori Booker MD [facility] Obstetrics and Gynecology [facility] Narrative 09/03/2020 4:32 PM SECTION LABORER [facility]alth [facility] Obstetrics and Gynecology ?? ULTRASOUND [...] documented as of this encounter Care Teams Obiee Report Developer Relationship Specialty Start Date End Date Blank Lemos MD PCP - General Internal Medicine 04/22/[address] [place] [address] KISHAN RENO [phone] Blank Lemos MD Assigned PCP 04/25/[address] [place] [address] KISHAN RENO [phone] Kathleen Lacy CNM Assigned OBGYN Provider 06/01/20 11/23/21 [address] [place] [id number] documented as of this encounter
--- OUTSIDE RECORDS SUMMARY | 2022-06-13 09:02 | XMS_ITS | Encounter Summary ---
:1990 Author Organization [place] Address [address] [place] [address] Care Team Providers Name Role Phone Blank [...] with No / Unsure 08/27/2020 1:55 PM LEARNING AND DEVELOPMENT MANAGER someone who was confirmed or suspected to have Coronavirus / COVID-19? documented as of this encounter Plan of Treatment Not on filedocumented as of this encounter Visit Diagnoses Not on filedocumented in this encounter Additional Health Concerns Assessment Noted Time PHQ-9 Depression Total Score: 5 12/06/2020 7:02 AM CDT documented as of this encounter Care Teams Field Marketing Manager Relationship Specialty Start Date End Date Blank Lemos MD PCP - General Internal Medicine 04/22/[address] [place] [address] KISHAN RENO [phone] Blank Lemos MD Assigned PCP 04/25/[address] [place] [address] KISHAN RENO [phone] Kathleen Lacy CNM Assigned OBGYN Provider 06/01/20 11/23/21 [address] [place] [id number] documented as of this encounter
--- OUTSIDE RECORDS SUMMARY | 2022-06-13 09:02 | XMS_ITS | Encounter Summary ---
:1990 Author Organization [place] Address [address] [place] [address]. [place] [address] Care Team Providers Name Role Phone Blank Lemos MD Primary Care Provider Blank Lemos MD Unavailable Kathleen Lacy CNM Unavailable Reason for Visit Auth/Cert Specialty Diagnoses / Procedures Referred By Contact Refer red To Contact energy efficient site manager Diagnoses Indication for care in labor or delivery Indication for care in labor or delivery Rh Procedures L AND D [address] [place], [place] [address] Phone: Fax: Referral ID Status Reason Start Date Expiration Date Visits Requ ested Visits Authorized [id number] 1 1 Encounter Details Date Type Department Care Team Description 09/28/2020 Anesthesia Event [facility] Lawrence Kimble DO [facility] ANESTHESIA [id number] [place], [place] [phone] Birthplace Lorenzo Hernandez MD [facility] ANESTHESIA [address] [place], [place] [phone] [place] [phone] Anesthesia Record Procedure Summary Procedure Name Responsible [...] Lawrence Kimble DO Maas, Tracy M, APRN MANAGER TAX documented in this encounter Social History Tobacco [...] with No / Unsure 09/28/2020 8:47 AM BAKERY PASTRY INTERNSHIP someone who was confirmed or suspected to [...] Kimble DO September 29, 2020 10:19 AM [employer]Y [employer] Anesthesia Procedure Notes - Lawrence Kimble DO - 09/28/2020 10:26 AM [employer] Associated Order(s): Epidural Block Pre-Procedure Staff - [...] frequently monitored at necessary intervals. Sandra Kimble [employer] Anesthesia Preprocedure Evaluation - Lawrence Kimble DO [...] found, no interventions. Pt thinks this happened [phone] ??? TONSILLECTOMY Allergies Allergen Reactions ??? Doxycycline [...] and realistic alternatives discussed. Questions answered and patient/apparel trimmings sales representative(s) expressed understanding. - Discussed with: Patient Postoperative Care Comments: BMI-44 Lawrence Kimble DO [employer] documented in this encounter Miscellaneous Notes Addendum Note - Sydnie Frost - 10/01/2020 8:11 AM CST Addendum created 10/01/20 0811 by Sydnie Frost Charge Capture section accepted [employer] Addendum Note - Lawrence Kimble DO - 09/29/2020 10:19 AM CST Addendum created 09/29/20 1019 by Lawrence Kimble DO Clinical Note Signed [employer]Y [employer] documented in this encounter Plan of Treatment Not on filedocumented as of this encounter Procedures Procedure Name Priority Date/Time Associated Diagnosis Comme nts ANE EPIDURAL BLOCK Routine 09/28/2020 10:26 AM Re sults for this [employer]NS[employer] procedure are i n the results section. documented in this encounter Results FV AN EPIDURAL DUMMY PERFORMABLE (09/28/2020 10:26 AM [employer]) Narrative Lawrence Kimble DO - 09/28/2020 10:26 AM [employer] Lawrence Kimble DO ? 09/28/2020 10:28 AM [...] necessary intervals. R Kimble Lawrence Kimble DO [place] ANESTHESIA documented in this encounter Visit Diagnoses Not on filedocumented in this encounter Additional Health Concerns Assessment Noted Time PHQ-9 Depression Total Score: 5 12/06/2020 7:02 AM CDT documented as of this encounter Care Teams Visiting Professor Relationship Specialty Start Date End Date Blank Lemos MD PCP - General Internal Medicine 04/22/18 [address] [facility] KISHAN RENO [phone] Blank Lemos MD Assigned PCP 04/25/18 [address] [facility] KISHAN RENO [phone] Kathleen Lacy CNM Assigned OBGYN Provider 06/01/20 11/23/21 Cipri[address] Rivera [place] [id number] documented as of this encounter
--- OUTSIDE RECORDS SUMMARY | 2022-06-13 09:02 | XMS_ITS | Encounter Summary ---
:1990 Author Organization [place] Address [address] [place] [address] Care Team Providers Name Role Phone Blank [...] with No / Unsure 08/20/2020 1:54 PM RN PHYSICIAN OFFICE someone who was confirmed or suspected to have Coronavirus / COVID-19? documented as of this encounter Plan of Treatment Not on filedocumented as of this encounter Visit Diagnoses Not on filedocumented in this encounter Additional Health Concerns Assessment Noted Time PHQ-9 Depression Total Score: 10 02/02/2020 8:23 AM CD T documented as of this encounter Care Teams Fan Blade Aligner Relationship Specialty Start Date End Date Blank Lemos MD PCP - General Internal Medicine 04/22/[address] [place] [address] KISHAN RENO [phone] Blank Lemos MD Assigned PCP 04/25/[address] [place] [address] KISHAN RENO [phone] Kathleen Lacy CNM Assigned OBGYN Provider 06/01/20 11/23/21 [address] [place] [address] documented as of this encounter
--- OUTSIDE RECORDS SUMMARY | 2022-06-13 09:02 | XMS_ITS | Encounter Summary ---
:1990 Author Organization [place] Address [address] [place] [address] Care Team Providers Name Role Phone Blank [...] with No / Unsure 09/17/2020 1:55 PM BLOOD BANK ASSISTANT someone who was confirmed or suspected to have Coronavirus / COVID-19? documented as of this encounter Plan of Treatment Not on filedocumented as of this encounter Visit Diagnoses Not on filedocumented in this encounter Additional Health Concerns Assessment Noted Time PHQ-9 Depression Total Score: 5 12/06/2020 7:02 AM CDT documented as of this encounter Care Teams Funding Specialist Relationship Specialty Start Date End Date Blank Lemos MD PCP - General Internal Medicine 04/22/[address] [place] [address] KISHAN RENO [phone] Blank Lemos MD Assigned PCP 04/25/[address] [place] [address] KISHAN RENO [phone] Kathleen Lacy CNM Assigned OBGYN Provider 06/01/20 11/23/21 [address] [place] [address] documented as of this encounter
--- OUTSIDE RECORDS SUMMARY | 2022-06-13 09:02 | XMS_ITS | Encounter Summary ---
:1990 Author Organization [place] Address [address] [place] [address] Care Team Providers Name Role Phone Blank [...] with No / Unsure 09/10/2020 8:39 AM COOPERER someone who was confirmed or suspected to have Coronavirus / COVID-19? documented as of this encounter Plan of Treatment Not on filedocumented as of this encounter Visit Diagnoses Not on filedocumented in this encounter Additional Health Concerns Assessment Noted Time PHQ-9 Depression Total Score: 5 12/06/2020 7:02 AM CDT documented as of this encounter Care Teams Fermenter Relationship Specialty Start Date End Date Blank Lemos MD PCP - General Internal Medicine 04/22/[address] [place] [address] KISHAN RENO [phone] Blank Lemos MD Assigned PCP 04/25/[address] [place] [address] KISHAN RENO [phone] Kathleen Lacy CNM Assigned OBGYN Provider 06/01/20 11/23/21 [address] [place] [id number] documented as of this encounter
--- OUTSIDE RECORDS SUMMARY | 2022-06-13 09:02 | XMS_ITS | Encounter Summary ---
:1990 Author Organization [place] Address [address] [facility] [place] [address] Care Team Providers Name Role Phone Blank Lemos MD Primary Care Provider Blank Lemos MD Unavailable Kathleen Lacy CNM Unavailable Reason for Visit Reason Comments Care Encounter Details Date Type Department Care Team Description 08/06/[address] [facility] Rand Kam h-risk , third trimester (Primary Dx); [facility] EGINNY CNM Pelvic pain affecting in third trimester, antepartum; [place] [address] At risk for venous thromboem bolism (VTE); [address] Elevated blood pressure affecting pregna ncy in third trimester, antepartum [place], [place] [address] [address] [place], [place] [phone] (Work) [phone] Social History Tobacco Use Types Packs/Day Years [...] with No / Unsure 08/06/2020 1:53 PM JOB PLACEMENT COUNSELOR someone who was confirmed or suspected to have Coronavirus / COVID-19? documented as of this encounter Last Filed Vital Signs Vital Sign Reading Time Taken Comments Blood Pressure 122/74 08/06/2020 2:02 PM JOB PLACEMENT COUNSELOR Pulse - - Temperature - - Respiratory Rate - - Oxygen Saturation - - Inhaled Oxygen Concentration - - Weight 110.2 kg (243 lb) 08/06/2020 2:02 PM JOB PLACEMENT COUNSELOR Height - - Body Mass Index 43.05 [...] Review need for PP VTE prophylaxis at [place]. Warning signs reviewed. RTC in 2 weeks, sooner if problems. PLACEMENT COUNSELOR documented in this encounter Nursing Notes Gonzalez [...] smoked. Reports pelvic pain over the weekend. PLACEMENT COUNSELOR documented in this encounter Plan of [...] documented as of this encounter Care Teams Lute Packer Or Applier Relationship Specialty Start Date End Date Blank Lemos MD PCP - General Internal Medicine 04/22/[address] [place] [address] KISHAN RENO [phone] Blank Lemos MD Assigned PCP 04/25/[address] [place] [address] KISHAN RENO [phone] Kathleen Lacy CNM Assigned OBGYN Provider 06/01/20 11/23/21 [address] [place] [address] documented as of this encounter
--- OUTSIDE RECORDS SUMMARY | 2022-06-13 09:02 | XMS_ITS | Encounter Summary ---
:1990 Author Organization [place] Address [address] [place] [address] Care Team Providers Name Role Phone Blank Lemos MD Primary Care Provider Blank Lemos MD Unavailable Kathleen Layc CNM Unavailable Encounter Details Date Type Department Care Team Description 09/28/[address] [facility] Kathleen Lacy CNM [facility] [place] [address] [place] [address] [place] [address] [address] [place] [address] [phone] Social History Tobacco Use Types Packs/Day Years [...] with No / Unsure 09/24/2020 2:11 PM FUNERAL PRE NEED CONSULTANT someone who was confirmed or suspected to have Coronavirus / COVID-19? documented as of this encounter Miscellaneous Notes Telephone Encounter - Kathleen Lacy CNM - 09/28/2020 7:16 AM CST Pt paged communication technician YARELI stating her contractions are still every 2-3 mins apart despite rest/hydration.She is going to LD for assessment. LD notified. Kathleen Lacy APRN, CNM RAL PRE NEED CONSULTANT Telephone Encounter - Kathleen Lacy CNM - 09/28/2020 6:06 AM CST Pt paged communication technician YARELI with reports of ctx about [...] continue to monitor at home for now. Ktahleen Lacy APRN, CNM RAL PRE NEED CONSULTANT Telephone Encounter - Kathleen Lacy CNM - 09/28/2020 5:22 AM CST Rena paged communication technician CNM stating that she just lost a large amount of vaginal discharge that was mucus-like in consistency. Denies ctx, bleeding, or lof. Reports good movement. States this happened 20mins ago. Discussed likely she lost her mucus plug. Counseled to put on a new pad and monitor.She will call if she continues to leak. Discussed s/s SROM. Kathleen Lacy APRN, CNM RAL PRE NEED CONSULTANT documented in this encounter Plan of Treatment Not on filedocumented as of this encounter Visit Diagnoses Not on filedocumented in this encounter Additional Health Concerns Assessment Noted Time PHQ-9 Depression Total Score: 5 12/06/2020 7:02 AM CDT documented as of this encounter Care Teams Scallop Dredger Relationship Specialty Start Date End Date Blank Lemos MD PCP - General Internal Medicine 04/22/[address] [place] [address] KISHAN RENO [phone] Blank Lemos MD Assigned PCP 04/25/[address] [place] [address] KISHAN RENO [phone] Kathleen Lacy CNM Assigned OBGYN Provider 06/01/20 11/23/21 K[place]AN [place] [id number] documented as of this encounter
--- OUTSIDE RECORDS SUMMARY | 2022-06-13 09:02 | XMS_ITS | Encounter Summary ---
:1990 Author Organization [place] Address [facility] [place] [address] Care Team Providers Name Role Phone Blank Lemos MD Primary Care Provider Blank Lemos MD Unavailable Kathleen Lacy CNM Unavailable Reason for Visit Reason Comments Shortness of Breath Tachycardia Encounter Details Date Type Department Care Team Description 07/09/2020 Emergency [facility] Chilango Lentz MD [facility] [address] [place], [place] [id number] Panic attack; [facility] Emergency Dep t Avelino Weinstein MD [facility] [address] [place], [place] [phone] 28 weeks gestation of [address] [place] [phone] Social History Tobacco Use Types Packs/Day Years [...] with No / Unsure 07/09/2020 7:18 PM ASSISTANT PROPERTY MANAGER someone who was confirmed or suspected to have Coronavirus / COVID-19? documented as of this encounter Last Filed Vital Signs Vital Sign Reading Time Taken Comments Blood Pressure 154/94 07/09/2020 7:19 PM ASSISTANT PROPERTY MANAGER Pulse 90 07/09/2020 7:19 PM ASSISTANT PROPERTY MANAGER Temperature 36.4 ??C (97.6 ??F) 07/09/2020 7:19 PM ASSISTANT PROPERTY MANAGER Respiratory Rate 16 07/09/2020 7:19 PM ASSISTANT PROPERTY MANAGER Oxygen Saturation 99% 07/09/2020 7:19 PM ASSISTANT PROPERTY MANAGER Inhaled Oxygen Concentration - - Weight - - Height - - Body Mass Index - - documented in this encounter Discharge Instructions AttachmentsThe following attachments cannot be sent through Care Everywhere. Panic Attack (Jamaican)documented in this encounter Medications at Time of [...] 1800 this evening. She spoke with her construction analyst who thought she sounded SOB and should come to the ER for evaluation. Did call OB charge who wants patient to be seen in the ER. STANT PROPERTY MANAGER Avelino Weinstein MD - 07/09/2020 7:14 PM CST History Chief Complaint: Shortness of Breath and Tachycardia KEARA Turner is a 30 year old female who is 28 weeks (G1) with a history of anxiety and panic attacks who presents with shortness of breath and tachycardia. The patient states that she went to pharmacy picking technician her routine prescriptions at the store and [...] sinus rhythm Normal ECG Rate 75 bpm. MA interval 150 ms. QRS duration 74 ms. [...] observations and the provider's statements to me. [facility] EMERGENCY DEPT Avelino Weinstein MD 07/10/20 0001 STANT PROPERTY MANAGER documented in this encounter Plan of Treatment Not on filedocumented as of this encounter Procedures Procedure Name Priority Date/Time Associated Comments Diagnosis CBC WITH PLATELETS & STAT 07/09/2020 7:21 PM R esults for this DIFFERENTIAL ASSISTANT PROPERTY MANAGER procedure are i n the results section. TROPONIN I STAT 07/09/2020 7:21 PM Results f or this ASSISTANT PROPERTY MANAGER procedure are i n the results section. BASIC METABOLIC PANEL STAT 07/09/2020 7:21 PM Results for this ASSISTANT PROPERTY MANAGER procedure are i n the results section. EKG 12-LEAD, TRACING STAT 07/09/2020 7:19 PM R esults for this ONLY ASSISTANT PROPERTY MANAGER procedure are i n the results section. documented in this encounter Results (ABNORMAL) CBC with platelets differential (07/09/2020 7:21 PM [facility]) [facility] Method Time Signature WBC 14.3 (H) 4.0 - 07/09/2020 [facility] 11.0 7:38 PM [facility] 10e9/L HOSPITAL RBC Count 3.86 3.8 - 5.2 07/09/2020 [facility] 10e12/L 7:38 PM [facility] Hemoglobin 12.5 11.7 - 07/09/2020 [facility] 15.7 g/dL 7:38 PM [facility] Hematocrit 37.7 35.0 - 07/09/2020 [facility] 47.0 % 7:38 PM [facility] MCV 98 78 - 100 07/09/2020 [facility] fl 7:38 PM [facility] MCH 32.4 26.5 - 07/09/2020 [facility] 33.0 pg 7:38 PM [facility] MCHC 33.2 31.5 - 07/09/2020 [facility] 36.5 g/dL 7:38 PM [facility] RDW 15.1 (H) 10.0 - 07/09/2020 [facility] 15.0 % 7:38 PM [facility] Platelet Count 328 150 - 450 07/09/2020 [facility] 10e9/L 7:38 PM [facility] Diff Method Automated 07/09/2020 [facility] Method 7:38 PM [facility] % Neutrophils 71.2 % 07/09/2020 [facility] 7:38 PM [facility] % Lymphocytes 22.8 % 07/09/2020 [facility] 7:38 PM [facility] % Monocytes 3.8 % 07/09/2020 [facility] 7:38 PM [facility] % Eosinophils 1.4 % 07/09/2020 [facility] 7:38 PM [facility] % Basophils 0.2 % 07/09/2020 [facility] 7:38 PM [facility] % Immature 0.6 % 07/09/2020 [facility] Granulocytes 7:38 PM [facility] Nucleated RBCs 0 0 /100 07/09/2020 [facility] 7:38 PM [facility] Absolute 10.2 (H) 1.6 - 8.3 07/09/2020 [facility] Neutrophil 10e9/L 7:38 PM [facility] Absolute 3.3 0.8 - 5.3 07/09/2020 [facility] Lymphocytes 10e9/L 7:38 PM [facility] Absolute 0.5 0.0 - 1.3 07/09/2020 [facility] Monocytes 10e9/L 7:38 PM [facility] Absolute 0.2 0.0 - 0.7 07/09/2020 [facility] Eosinophils 10e9/L 7:38 PM [facility] Absolute 0.0 0.0 - 0.2 07/09/2020 [facility] Basophils 10e9/L 7:38 PM [facility] Abs Immature 0.1 0 - 0.4 07/09/2020 [facility] Granulocytes 10e9/L 7:38 PM [facility] Absolute 0.0 07/09/2020 [facility] Nucleated RBC 7:38 PM [facility] Specimen Anatomical Collection Method Collection Time Receive d Time (Source) Location / / Volume Laterality Blood specimen 07/09/2020 7:21 PM 020 7:34 (specimen) ASSISTANT PROPERTY MANAGER PM ASSISTANT PROPERTY MANAGER Chilango Lentz MD LAB - BLOOD ORDERABLES Performing Organization Address City/State/ZIP Code Phon e Number [place] [address] [place] [address] [phone] Troponin I (07/09/2020 7:21 PM ASSISTANT PROPERTY MANAGER) athologist Signature Troponin I ES <0.015 0.000 - 07/09/2020 [facility] 0.045 ug/L 8:14 PM [facility] Comment: The 99th percentile for upper reference range is 0.045 ug/L. ??Troponin values in the range of 0.045 - 0.120 ug/L may b e associated with risks of adverse clinical events. Specimen Anatomical Collection Method Collection Time Receive d Time (Source) Location / / Volume Laterality Blood specimen 07/09/2020 7:21 PM 020 7:34 (specimen) ASSISTANT PROPERTY MANAGER PM ASSISTANT PROPERTY MANAGER Chilango Lentz MD LAB - BLOOD ORDERABLES Performing Organization Address City/State/ZIP Code Phon e Number M [facility] [address] [place], [place] [address] [facility] [address] [place], [place] [address] [phone] (ABNORMAL) Basic metabolic panel (07/09/2020 7:21 PM [facility]) athologist Signature Sodium 138 133 - 144 07/09/2020 [facility] mmol/L 8:02 PM [facility] Potassium 3.3 (L) 3.4 - 5.3 07/09/2020 [facility] mmol/L 8:02 PM [facility] Chloride 106 94 - 109 07/09/2020 [facility] mmol/L 8:02 PM [facility] Carbon Dioxide 25 20 - 32 07/09/2020 [facility] mmol/L 8:09 PM [facility] Anion Gap 7 3 - 14 07/09/2020 [facility] mmol/L 8:09 PM [facility] Glucose 117 (H) 70 - 99 07/09/2020 [facility] mg/dL 8:09 PM [facility] Urea Nitrogen 4 (L) 7 - 30 07/09/2020 [facility] mg/dL 8:09 PM [facility] Creatinine 0.62 0.52 - 07/09/2020 [facility] 1.04 mg/dL 8:09 PM [facility] GFR Estimate >90 >60 07/09/2020 [facility] mL/min/{1. 8:09 PM [facility] 73_m2} HOSPITAL Comment: Non GFR Calc Starting 07/27/2018, serum creatinine ba sed estimated GFR (eGFR) will be calculated using the Chronic Kidney Dise [facility] Epidemiology Collaboration (CKD-EPI) equation. GFR Estimate If >90 >60 mL/min/{1.73_m2} 07/09/2020 8: 09 PM [facility] Comment: GFR Calc Starting 07/27/2018, serum creatinine ba sed estimated GFR (eGFR) will be calculated using the Chronic Kidney Dise [facility] Epidemiology Collaboration (CKD-EPI) equation. Calcium 9.3 8.5 - 10.1 mg/dL 07/09/2020 8:09 PM [facility] Specimen Anatomical Collection Method Collection Time Receive d Time (Source) Location / / Volume Laterality Blood specimen 07/09/2020 7:21 PM 020 7:34 (specimen) ASSISTANT PROPERTY MANAGER PM ASSISTANT PROPERTY MANAGER Chilango Lentz MD LAB - BLOOD ORDERABLES Performing Organization Address City/State/ZIP Code Phon e Number [facility] [address] [place] [address] [facility] [address] [place], [place] [address], [facility] [phone] [facility] [address] [place] [address], [facility] EKG 12-lead, tracing only (07/09/2020 7:19 PM ASSISTANT PROPERTY MANAGER) [facility] Method Time Signature Interpretation ECG Click View RADIOLOGY Image link RESULTS to view waveform and result Specimen (Source) Anatomical Collection Method Collection Time Re ceived Time Location / / Volume Laterality 07/09/2020 7:19 PM ASSISTANT PROPERTY MANAGER Chilango Lentz MD ECG ORDERABLES Performing Organization Address City/State/ZIP Code Phon e Number RADIOLOGY RESULTS documented in this encounter Visit Diagnoses Diagnosis Panic attack Panic disorder without agoraphobia 28 weeks gestation of state, incidental documented in this encounter Additional Health Concerns Assessment Noted Time PHQ-9 Depression Total Score: 10 02/02/2020 8:23 AM CD T documented as of this encounter Care Teams Assembler Adjuster Relationship Specialty Start Date End Date Blank Lemos MD PCP - General Internal Medicine 04/22/[address] [place] [address] [place] [phone] Blank Lemos MD Assigned PCP 04/25/[address] [place] [address] [place] [phone] Kathleen Lacy CNM Assigned OBGYN Provider 06/01/20 11/23/21 [address] [place] [address] documented as of this encounter
--- OUTSIDE RECORDS SUMMARY | 2022-06-13 09:02 | XMS_ITS | Encounter Summary ---
:1990 Author Organization [place] Address [address] [place] [address] Care Team Providers Name Role Phone Blank [...] with No / Unsure 09/28/2020 8:47 AM WOOD HEEL FLAP RUBBER someone who was confirmed or suspected to have Coronavirus / COVID-19? documented as of this encounter Plan of Treatment Not on filedocumented as of this encounter Visit Diagnoses Not on filedocumented in this encounter Additional Health Concerns Assessment Noted Time PHQ-9 Depression Total Score: 5 12/06/2020 7:02 AM CDT documented as of this encounter Care Teams Aquatic Facility Manager Relationship Specialty Start Date End Date Blank Lemos MD PCP - General Internal Medicine 04/22/[address] [place] [address] [place] [phone] Blank Lemos MD Assigned PCP 04/25/[address] [place] [address] [place] [phone] Kathleen Lacy CNM Assigned OBGYN Provider 06/01/20 11/23/21 [address] [place] [id number] documented as of this encounter
--- OUTSIDE RECORDS SUMMARY | 2022-06-13 09:02 | XMS_ITS | Encounter Summary ---
:1990 Author Organization [place] Address [facility] [place] [address] Care Team Providers Name Role Phone Blank Lemos MD Primary Care Provider Blank Lemos MD Unavailable Kathleen Lacy CNM Unavailable Reason for Visit Reason Onset Date Comments Palpitations 07/09/2020 Encounter Details Date Type Department Care Team Description 07/09/2020 Telephone [facility] Soledad sampson CNM [facility] [place] [address] [place] [address] [address] [place] [address] [phone] Social History Tobacco Use Types Packs/Day Years [...] with No / Unsure 07/09/2020 8:25 AM TOOL MAKER someone who was confirmed or suspected to have Coronavirus / COVID-19? documented as of this encounter Miscellaneous Notes Telephone Encounter - Soledad Jones CNM - 07/09/2020 6:27 PM CST Pt paged english as a second language teacher YARELI with reports of very fast and irregular heart beat for the past hour. Reportsit started spontaneously and hasn't subsided despite rest. Pt audibly short of breath while talking over the phone although able to speak in full sentences. Instructed to go to ER for evaluation. Pt voiced understanding. Britney Jones CNM 07/09/2020 6:28 PM MAKER documented in this encounter Plan of Treatment Not on filedocumented as of this encounter Visit Diagnoses Not on filedocumented in this encounter Additional Health Concerns Assessment Noted Time PHQ-9 Depression Total Score: 10 02/02/2020 8:23 AM CD T documented as of this encounter Care Teams Pony Ride Attendant Relationship Specialty Start Date End Date Blank Lemos MD PCP - General Internal Medicine 04/22/18 [address] [facility] [place] [address] Blank Lemos MD Assigned PCP 04/25/18 [address] [facility] [place] [address] Kathleen Lacy CNM Assigned OBGYN Provider 06/01/20 11/23/21 [address] [place] [address] documented as of this encounter
--- OUTSIDE RECORDS SUMMARY | 2022-06-13 09:02 | XMS_ITS | Encounter Summary ---
:1990 Author Organization [place] Address [address] [place] [address] Care Team Providers Name Role Phone Blank [...] with No / Unsure 09/24/2020 2:11 PM LEARNING ENGINEER someone who was confirmed or suspected to have Coronavirus / COVID-19? documented as of this encounter Plan of Treatment Not on filedocumented as of this encounter Visit Diagnoses Not on filedocumented in this encounter Additional Health Concerns Assessment Noted Time PHQ-9 Depression Total Score: 5 12/06/2020 7:02 AM CDT documented as of this encounter Care Teams Bag Worker Relationship Specialty Start Date End Date Blank Lemos MD PCP - General Internal Medicine 04/22/[address] [place] [address] [place] [phone] Blank Lemos MD Assigned PCP 04/25/[address] [place] [address] [place] [phone] Kathleen Lacy CNM Assigned OBGYN Provider 06/01/20 11/23/21 [address] [place] [phone] documented as of this encounter
--- OUTSIDE RECORDS SUMMARY | 2022-06-13 09:02 | XMS_ITS | Encounter Summary ---
:1990 Author Organization [place] Address [facility] [place] [address] Care Team Providers Name Role Phone Blank Lemos MD Primary Care Provider Blank Lemos MD Unavailable Kathleen Lacy CNRadha Unavailable Anabell Shannon Unavailable Unavailable Reason for Visit Reason Comments Video Visit [phone] Depression Encounter Details Date Type Department Care Team Description 08/27/2020 Virtual Visit [facility] Blank Lemos anxiety disorder; Clinic Dev Camp MD Bipolar I disorder (H) [address] [facility] [address] [place] [address] [place] [phone] Social History Tobacco Use [...] with No / Unsure 10/18/2020 2:11 PM DIRECTOR FIXED INCOME someone who was confirmed or suspected to [...] Take care, Blank Lemos MD Internal Medicine/Pediatrics [facility] CTOR FIXED INCOME documented in this encounter Progress Notes Blank Lemos MD - 08/27/2020 1:55 PM CST Rena is a 30 year old who is being evaluated via a billable video visit. How would you like to obtain your AVS? MyChart If the video visit is dropped, the invitation should be resent by: Text to cell phone: [phone] Will anyone else be joining your video [...] Take care, Blank Lemos MD Internal Medicine/Pediatrics [facility] Return in about 3 months (around 11/25/2020) for Routine preventive, with me, in person. Blank Lemos MD [facility] Chase is a 30 year old who [...] (pt. Location): Home Distant Location (provider location): [facility] DEV Platform used for Video Visit: D[employer]im[employer] CTOR FIXED INCOME documented in this encounter Nursing Notes Nahed Carrillo MA - 08/27/2020 1:55 PM CST Left message for patient to return call to schedule follow up physical in November/December. VITALY ALEJANDRO MA on 08/27/2020 at 2:27 PM CTOR FIXED INCOME documented in this encounter Plan of Treatment Not on filedocumented as of this encounter Visit Diagnoses Diagnosis Generalized anxiety disorder Bipolar I disorder (H) Bipolar I disorder, most recent episode (or current) unspecified documented in this encounter Additional Health Concerns Assessment Noted Time PHQ-9 Depression Total Score: 5 12/06/2020 7:02 AM CDT documented as of this encounter Care Teams Fifth Grade Teacher Relationship Specialty Start Date End Date Blank Lemos, PCP - General Internal Medicine 04/22/[address] [place] [address] [place] [address] Blank Lemos, Assigned PCP [facility] [place] [address] Kathleen Lacy CNM Assigned OBGYN Provider 06/01/20 11/23/21 [place] [address] Anabell Shannon Personal Advocate & 10/25/20 Liaison (PAL) documented as of this encounter
--- OUTSIDE RECORDS SUMMARY | 2022-06-13 09:02 | XMS_ITS | Encounter Summary ---
:1990 Author Organization [place] Address [facility] [place] [address] Care Team Providers Name Role Phone Blank Lemos MD Primary Care Provider Blank Lemos MD Unavailable Kathleen Lacy CN Unavailable Reason for Visit Reason Comments Care 36w 4d, discuss delivery prince n management options and restrictions Encounter Details Date Type Department Care Team Description 09/03/2020 Office [facility] EugenejodieStevan nnah, CNM [address] [place], [place] [address] Encounter for Visit [facility] Faiza Reyes, CNM [address] [place], [place] [id number] supervision of [place] normal first [address] in th ird [place] trimester (Primary [address] Dx) [place] [phone] Social History Tobacco Use Types Packs/Day Years [...] with No / Unsure 09/03/2020 1:45 PM CONDUIT HELPER someone who was confirmed or suspected to have Coronavirus / COVID-19? documented as of this encounter Last Filed Vital Signs Vital Sign Reading Time Taken Comments Blood Pressure 116/76 09/03/2020 1:48 PM CONDUIT HELPER Pulse - - Temperature - - Respiratory Rate - - Oxygen Saturation - - Inhaled Oxygen Concentration - - Weight 113.4 kg (250 lb) 09/03/2020 1:48 PM CONDUIT HELPER Height - - Body Mass Index 44.29 [...] symptoms if you are positive. ?? Your wood handler will discuss your results with you and make recommendations for treatment. Labor Instructions for Plumbing Installer Patients When to call: Both during and after office hours call [phone]. There is a Nurse Plumbing Installer available to take your calls and answer [...] your cervix, and will call us. The wood handler gas pumping station operator will come in and be with you when you are in active labor ?? After hours you need to enter the hospital through the emergency room UIT HELPER documented in this encounter Progress Notes Faiza [...] clinic 1 weeks Faiza Reyes APRN, CNM UIT HELPER documented in this encounter Nursing Notes Luz [...] HM Due: NONE Luz Maria Abreu CMA UIT HELPER documented in this encounter Plan of Treatment Not on filedocumented as of this encounter Procedures Procedure Name Priority Date/Time Associated Diagnosis Comme nts GROUP B STREP PCR Routine 09/03/2020 2:00 PM Encounter for Res ults for this CONDUIT HELPER supervision of normal proced ure are in first in the resul ts third trimester section. documented in this encounter Results Strep, Group B by PCR (09/03/2020 2:00 PM CONDUIT HELPER) [facility] Method Time Signature Group B Strep Vaginal 09/03/2020 [facility] PCR Spec Carlos Rectal 1:46 PM CONDUIT HELPER [facility] Group B Strep Negative NEG^Negat 09/04/2020 [facility] yakelin 2:26 PM CONDUIT HELPER [facility] Comment: No GBS DNA detected, presumed negative f or GBS or number of bacteria may be below the limit of detection of the assa y. Assay performed on incubated broth cultu re of specimen using [employer]id real-time PCR. Specimen Anatomical Collection Method Collection Time Receive d Time (Source) Location / / Volume Laterality Vaginal Rectal 09/03/2020 2:00 PM 021 3:25 CONDUIT HELPER PM CONDUIT HELPER Faiza Reyes CNM LAB - MICRO GENERAL ORDERABL ES Performing Organization Address City/State/ZIP Code Phon e Number [address] [address] [facility] [address] [place], [place] [address] [address] documented in this encounter Visit Diagnoses Diagnosis Encounter for supervision of normal firs t in third trimester - Primary Supervision of normal first documented in this encounter Additional Health Concerns Assessment Noted Time PHQ-9 Depression Total Score: 5 12/06/2020 7:02 AM CDT documented as of this encounter Care Teams Road Freight Conductor Relationship Specialty Start Date End Date Blank Lemos MD PCP - General Internal Medicine 04/22/[address] [place] [address] [place] [phone] Blank Lemos MD Assigned PCP 04/25/[address] [place] [address] [place] [address] Kathleen Lacy CNM Assigned OBGYN Provider 06/01/20 11/23/21 [place] [address] documented as of this encounter
--- OUTSIDE RECORDS SUMMARY | 2022-06-13 09:02 | XMS_ITS | Encounter Summary ---
:1990 Author Organization [place] Address Formerly [facility] [place] [address] Care Team Providers Name Role Phone Blank Lemos MD Primary Care Provider Blank Lemos MD Unavailable Kathleen Lacy CNM Unavailable Reason for Visit Reason Comments Laboring Auth/Cert Specialty Diagnoses / Procedures Referred By Contact Refer red To Contact reclamation worker Diagnoses Indication for care in labor or delivery Indication for care in labor or delivery Rh Procedures L AND D [address] [place], [place] [address] Phone: Fax: Referral ID Status Reason Start Date Expiration Date Visits Requ ested Visits Authorized [id number] 1 1 Encounter Details Date Type Department Care Team Description 09/28/2020 Surgery [facility] Wendy Gregg, SECTION PeriOp Services DO [address] [address] [place] [address] [place], [place] [id number] (Wo rk) Surgery Details Date/Time Status Location [...] with No / Unsure 09/28/2020 8:47 AM TOWER CRANE OPERATOR someone who was confirmed or suspected to have Coronavirus / COVID-19? documented as of this encounter Last Filed Vital Signs Vital Sign Reading Time Taken Comments Blood Pressure 110/66 09/28/2020 9:45 PM TOWER CRANE OPERATOR Pulse 85 09/28/2020 9:45 PM TOWER CRANE OPERATOR Temperature 36.9 ??C (98.4 ??F) 09/28/2020 9:00 PM TOWER CRANE OPERATOR Respiratory Rate 16 09/28/2020 9:45 PM TOWER CRANE OPERATOR Oxygen Saturation 96% 09/28/2020 6:09 PM TOWER CRANE OPERATOR Inhaled Oxygen Concentration - - Weight 112.9 kg (249 lb) 09/28/2020 8:52 AM TOWER CRANE OPERATOR Height 160 cm (5' 3) 09/28/2020 8:52 AM TOWER CRANE OPERATOR Body Mass Index 44.11 09/28/2020 8:52 AM TOWER CRANE OPERATOR documented in this encounter Discharge Summaries Danial Falcon MD - 09/30/2020 9:24 AM CST [facility] Obstetrics Post-Op / Discharge Summary Note Assessment and Plan: Assessment: Post-operative day #2 Low transverse primary section L&D complications: A 30 year oldzwm-htud-uak at 40w1d weeks estimated gestational age admitted [...] phosphate (FLEET ENEMA) 1 enema ??? Tdap (eehgpxm-tghoxsarnc-mhtjv pertussis) (ADACEL) injection 0.5 mL ??? tranexamic [...] No imaging studies have been ordered Danial Falocn MD R CRANE OPERATOR documented in this encounter Discharge Instructions Discharge InstructionsLakeshia Mullen RN - 09/30/2020 1:40 PM CST Postop Instructions Make an appointment to be seen in the clinic in 6 weeks. [facility]: [phone] Activity ?? Do not lift more than [...] questions or concerns after you return home. R CRANE OPERATOR documented in this encounter Medications at Time [...] Falcon MD - 09/30/2020 9:21 AM CST [facility] Obstetrics Post-Op / Progress Note Assessment and Plan: Assessment: Post-operative day #2 Low transverse primary section L&D complications: A 30 year oldzgx-bzpp-rej at 40w1d weeks estimated gestational age admitted [...] phosphate (FLEET ENEMA) 1 enema ??? Tdap (tfsltnv-qcdnuyeeol-rguig pertussis) (ADACEL) injection 0.5 mL ??? tranexamic [...] studies have been ordered Danial Falcon MD R CRANE OPERATOR Dina Germain MD - 09/29/2020 11:45 AM [...] discharge in 1-2 days Dina Germain MD R CRANE OPERATOR Soledad Jones CNM - 09/28/2020 6:48 PM [...] prn Britney Jones CNM 09/28/2020 4:36 PM R CRANE OPERATOR Soledad Jones CNM - 09/28/2020 12:51 PM [...] PRN Britney Jones CNM 09/28/2020 2:12 PM R CRANE OPERATOR Soledad Jones CNM - 09/28/2020 10:48 AM [...] to Reassess short interval Soledad Jones CNM R CRANE OPERATOR documented in this encounter H&P Notes Wendy Gregg DO - 09/28/2020 7:18 PM CST [facility] Labor and Delivery Consultation note Rena [...] orders Prepare for section. Wendy Gregg DO R CRANE OPERATOR Soledad Jones CNM - 09/28/2020 9:09 AM CST [facility] Labor Admission History & Physical Rena Resendiz is a 30 year old with an IUP at 40w1d ; , Partner/support Person: Micah Language Barrier: Surinamese Clinic: [facility] Provider: Robert Rena Resendiz is [facility] on 09/28/2020 at 9:09 AM History of [...] found, no interventions. Pt thinks this happened [phone] ??? TONSILLECTOMY Family History Problem Relation Age [...] orders Britney Jones CNM 09/28/2020 9:23 AM R CRANE OPERATOR documented in this encounter Miscellaneous Notes Plan of Care - Lakeshia Mullen RN - 09/30/2020 2:41 PM CST Discharge instructions reviewed with patient and . Understanding verbalized. Will discharge to home with and baby. R CRANE OPERATOR Plan of Care - Lakeshia Mullen RN [...] Support persons present. Plan: Anticipate discharge today. R CRANE OPERATOR Plan of Care - Karol Hayden RN - 09/30/2020 2:52 AM CST Pt meeting expected goals for shift. Positive attachment behaviors noted with . Pain managed with scheduled meds - See MAR. Support person Micah at bedside and attentive to pt needs. pt encouraged to complete discharge paperwork/videos. Will continue to monitor and adjust plan as needed. R CRANE OPERATOR Note - Elisabeth Shi RN - 09/29/2020 [...] questions answered. Encouraged to call for assistance. R CRANE OPERATOR Plan of Care - Kathleen Wright RN - 09/29/2020 7:59 PM CST Pt up ambulating independently. Voiding without difficulty. Incision covered . Reports adequate paincontrol with current pain plan. Family present and supportive. Meeting expected goals. Mother attentive to infants needs. , using nipple shield. R CRANE OPERATOR Plan of Care - Maria Del Rosario [...] supportive today. Maria Del Rosario Steven RN R CRANE OPERATOR Plan of Care - Kathleen Hurley RN [...] gluten free diet. FOB here and supportive. R CRANE OPERATOR L&D Delivery Note - Wendy Gregg DO [...] confirmed. Procedure Details: See operative note Paris Resnediz-Rena [[id number]] Labor Event Times Labor onset date: 09/28/20 [...] Normal 1:1 continuous labor support provided by?: wound treatment rn/Placenta Date and Time Delivery Date: 09/28/20 Delivery Time: 8:09 PM Placenta Date/Time: 09/28/2020 8:10 PM Vaginal Counts [place] Suture [place] Sponges Instruments Initial counts Added to count [...] Nuchal Gases Sent?: Yes Resuscitation Methods: None [place] Measurements Weight: 7 lb 15 oz Length: [...] present?: Neg Delivery (Maternal) (Provider to Complete) ([id number]) Episiotomy: None Perineal lacerations: None Blood Loss Mother: Rena Resendiz #[id number] Start of Mother's Information IO Blood Loss 09/28/20 0530 - 09/29/20 0634 None End of Mother's Information Mother: Rena Resendiz #[id number] Delivery - Provider to Complete ([id number]) Delivering clinician: Wendy Gregg DO CNM Care: [...] Position: Left Occiput Anterior Wendy Gregg DO R CRANE OPERATOR Plan of Care - Maricruz Rogers RN - 09/28/2020 11:48 PM CST Data: Renablaine Resendiz transferred to [facility] via leasing consultant at 1135. Baby transferred via parent's arms. Action: Receiving unit notified of transfer: Yes. Patient and family notified of room change. Reportgiven to Kathleen TOLLIVER at 2330. Belongings sent to receiving unit. Accompanied by Registered Nurse. Oriented patient to surroundings. Call light within reach. ID bands double-checked with receiving RN. Response: Patient tolerated transfer and is stable. R CRANE OPERATOR Op Note - Wendy Gregg DO - 09/28/2020 8:53 PM CST PREOPERATIVE DIAGNOSIS: A 30 year oldyxm-bska-kac at 40w1d weeks estimated gestational age admitted for labor with arrest of dilation, obesity. POSTOPERATIVE DIAGNOSES: A 30 year oldorq-iaem-zrf at 40w1d weeks estimated gestational age admitted for labor with arrest of dilation, obesity. PROCEDURE: 1. Primary low transverse section. 2. Seprafilm placement for adhesiolysis. COMPLICATIONS: None apparent at time of procedure. ESTIMATED BLOOD LOSS: 400 mL. SURGEON: Wendy Gregg DO. INDICATIONS: A 30 year oldpqf-nlha-chz at 40w1d weeks estimated gestational age admitted [...] counts were correct x2. WENDY GREGG DO R CRANE OPERATOR Plan of Care - Maria Del Rosario Steven RN - 09/28/2020 9:19 AM CST 0735: , 40w1d, here for rule out labor. Pt states she has been nelson every 2-2.5 min [id number] this morning. EUM and EFM placed. Admission [...] to progress. Maria Del Rosario Steven RN R CRANE OPERATOR documented in this encounter Plan of Treatment Scheduled Orders Name Type Priority Associated Diagnoses Order S chedule See Providers Orders Lab Routine Release Upon Ordering for 1 Occurrences sta rting 09/28/2020 documented as of this encounter Procedures Procedure Name Priority Date/Time Associated Comments Diagnosis HEMOGLOBIN Routine 09/29/2020 7:02 AM Indication for care Re sults for this TOWER CRANE OPERATOR in labor or procedure are i n delivery the results section. PLACENTA PATH ORDER Routine 09/28/2020 8:13 PM Re sults for this AND INDICATIONS TOWER CRANE OPERATOR procedure ar e in the results section. SECTION 09/28/2020 7:48 PM Failure to progres s TOWER CRANE OPERATOR in labor TREPONEMA ABS W STAT 09/28/2020 9:23 AM Result s for this REFLEX TO RPR AND TOWER CRANE OPERATOR procedure are in TITER the results section. ABO/RH TYPE AND STAT 09/28/2020 9:23 AM Result s for this SCREEN TOWER CRANE OPERATOR procedure are i n the results section. SARS-COV-2 (COVID-19) STAT 09/28/2020 8:40 AM Results for this VIRUS RT-PCR TOWER CRANE OPERATOR procedure are i n the results section. documented in this encounter Results (ABNORMAL) Hemoglobin (09/29/2020 7:02 AM TOWER CRANE OPERATOR) athologist Signature Hemoglobin 10.7 (L) 11.7 - 15.7 09/29/2020 [place] g/dL 7:42 AM [facility] Specimen Anatomical Collection Method Collection Time Receive d Time (Source) Location / / Volume Laterality Blood specimen 09/29/2020 7:02 AM 021 7:03 (specimen) TOWER CRANE OPERATOR AM TOWER CRANE OPERATOR Wendy Gregg DO LAB - BLOOD ORDERABLES Performing Organization Address City/State/ZIP Code Phon e Number [place] [address] [address] [place] [address] [address] [phone] Placenta Path Order and Indications (PLACENTA) (09/28/2020 8:13 PM TOWER CRANE OPERATOR) Component Value Ref Test Analysis Performed At [facility] gist Range Method Time Signature Copath Patient Name: RENA RESENDIZ Report MR#: [id number] Specimen #: [id number] Collected: 09/28/2020 Received: 10/01/2020 Reported: 10/02/2020 12:04 [...] of this testing was completed at the [facility], with the professional compo nent performed at the [facility], [address] [place] [address] ??[phone] ([phone]) CPT Codes: A: 72177-AM6 COLLECTION SITE: Client: [facility] Location: RHOR (R) Specimen Anatomical Collection Method Collection Time Receive d Time (Source) Location / / Volume Laterality Specimen from 09/28/2020 8:13 PM 10/01/19 21 8:32 placenta TOWER CRANE OPERATOR AM TOWER CRANE OPERATOR (specimen) Soledad XIAO Performing Organization Address City/State/ZIP Code Phon e Number [place] Treponema Abs w Reflex to RPR and Titer (09/28/2020 9:23 AM TOWER CRANE OPERATOR) [facility] gist Method Time Signature Treponema Nonreactive NR^Nonrea 09/28/2020 [facility] ctive 5:03 PM TOWER CRANE OPERATOR [facility] Comment: Methodology Change: Test performed on DiaSorin Liaison XL by Treponema pallidum Total Antibodies Assay as of . Specimen Anatomical Collection Method Collection Time Receive d Time (Source) Location / / Volume Laterality Blood specimen 09/28/2020 9:23 AM 021 9:24 (specimen) TOWER CRANE OPERATOR AM TOWER CRANE OPERATOR Soledad Jones CNM LAB - BLOOD ORDERABLES Performing Organization Address City/State/ZIP Code Phon e Number [address] [address] [facility] ABO/Rh type and screen (09/28/2020 9:23 AM TOWER CRANE OPERATOR) [facility] Method Time Signature ABO O 09/28/2020 [facility] 10:18 AM [facility] RH(D) Pos [facility] Antibody Neg 09/28/2020 [place] Screen 10:18 AM [facility] Test Valid [place] 09/28/2020 [facility] Only At [facility] 9:43 AM [facility] Specimen 10/01/2020 09/28/2020 [facility] Expires 9:43 AM [facility] Specimen Anatomical Collection Method Collection Time Receive d Time (Source) Location / / Volume Laterality Blood specimen 09/28/2020 9:23 AM 021 9:24 (specimen) TOWER CRANE OPERATOR AM TOWER CRANE OPERATOR Soledad Jones CNM LAB - BLOOD BANK TEST ORDER Performing Organization Address City/State/ZIP Code Phon e Number M [facility] [address] [address] [facility] [address] [phone] Asymptomatic SARS-CoV-2 COVID-19 Virus (Coronavirus) by PCR (09/28/2020 8:40 AM TOWER CRANE OPERATOR) [facility] Method Time Signature SARS-CoV-2 Nasopharyngeal 09/28/2020 [place] Virus 8:51 AM [facility] Source SARS-CoV-2 NEGATIVE 09/28/2020 [place] PCR Result 9:13 AM [facility] Comment: SARS-CoV2 (COVID-19) RNA not de tected, presumed negative. SARS-CoV-2 PCR Comment (Note) 09/28/2020 9:13 A [facility] Comment: Testing was performed using the vera [...] or clinical pr esentation suggests COVID-19. M [facility] [employer] are certi fied under the Clinical Laboratory Improvement Amendments of 1988 (CLIA-88) as qualified to perform moderate and/or high complexity laboratory testin g. Specimen (Source) Anatomical Collection Method Collection Time Re ceived Time Location / / Volume Laterality Specimen from 09/28/2020 8:40 09/28/2020 nasopharyngeal AM TOWER CRANE OPERATOR 8:51 AM TOWER CRANE OPERATOR structure (specimen) Soledad Jones CNM LAB - MICRO GENERAL ORDERABL ES Performing Organization Address City/State/ZIP Code Phon e Number [place] [address] [address] [facility] [address] [phone] documented in this encounter Visit Diagnoses Diagnosis [...] acetaminophen (TYLENOL) tablet Given 09/30/2020 12:04 PM TOWER CRANE OPERATOR 975 mg 975 mg 975 mg, Oral, EVERY 6 HOURS, First dose on Thu09/28/20 at 2330, Maximum acetaminophen dose from all sources = 75 mg/kg/day not to exceed 4 grams/day., Post-procedure Given 09/30/2020 5:42 AM TOWER CRANE OPERATOR 975 mg Given 09/30/2020 12:09 AM TOWER CRANE OPERATOR 975 mg dextrose 5% in lactated ringers infusion New Bag 09/29/2020 2:00 AM TOWER CRANE OPERATOR 125 mL/hr at 125 mL/hr, Intravenous, CONTINUOUS, Subsequent IV at nurse's discretion. DC IV when tolerating fluids or at nurse's discretion & saline lock., Post-procedure, Starting on Thu09/28/20 at 2330, Until 09/30/20 at 1703 escitalopram (LEXAPRO) tablet 20 mg Given 09/29/2020 10:37 PM TOWER CRANE OPERATOR 20 mg 20 mg, Oral, DAILY, First dose on 09/29/20 at 0900 ibuprofen (ADVIL/MOTRIN) tablet 800 mg Given 09/30/2020 10:24 AM TOWER CRANE OPERATOR 800 mg 800 mg, Oral, EVERY 6 HOURS, First dose on 09/29/20 at 2100, Give with food., Post-procedure Given 09/30/2020 4:33 AM TOWER CRANE OPERATOR 800 mg Given 09/29/2020 10:36 PM TOWER CRANE OPERATOR 800 mg naloxone (NARCAN) injection 0.2 mg [...] injection 4 mg Given 09/29/2020 12:56 AM TOWER CRANE OPERATOR 4 mg 4 mg, Intravenous, EVERY 6 HOURS PRN, nausea, vomiting, Administer over 2-5 Minutes, Starting on Thu09/28/20 at 2316, If nausea not resolved in 15 minutes, notify provider before proceeding to prochlorperazine (COMPAZINE) [if ordered]. Irritant. For ordered IV doses 0.1-4 mg, give IV Push undiluted over 2-5 minutes., Post-procedure oxyCODONE (ROXICODONE) tablet 5 mg Given 09/29/2020 10:36 PM TOWER CRANE OPERATOR 5 mg 5 mg, Oral, EVERY 4 HOURS PRN, other, pain control or improvement in physical function. Hold dose for analgesic side effects., Starting on Thu09/28/20 at 2316, Notify provider to assess for uncontrolled pain or analgesic side effects. Hold while on BUS GIRL or with regular IV opioid dosing. Maximum total is 60 mg in 24 hours., Post-procedure Given 09/29/2020 1:04 PM TOWER CRANE OPERATOR 5 mg senna-docusate (SENOKOT-S/PERICOLACE) Given 09/30/2020 9:[address] 1 tablet 8.6-50 MG per tablet 1 tablet 1 tablet, Oral, 2 TIMES DAILY, First dose on Thu09/28/20 at 2330, If no bowel movement in 24 hours, increase to 2 tablets PO. Hold for loose stools. Preferred agent for constipation related to opioids. Hold for loose stools., Post-procedure Given 09/29/2020 10:36 PM TOWER CRANE OPERATOR 1 tablet Given 09/29/2020 9:50 AM TOWER CRANE OPERATOR 1 tablet senna-docusate (SENOKOT-S/PERICOLACE) 8. 6-50 MG per tablet 2 tablet 2 tablet, Oral, 2 TIMES DAILY, First dos e on Thu09/28/20 at 2330, Hold for loose stools. Preferred agent for constipation related to op ioids. Hold for loose stools., Post-procedure simethicone (MYLICON) chewable tablet 80 mg Given 09/30/2020 3:27 AM TOWER CRANE OPERATOR 80 mg 80 mg, Oral, 4 TIMES DAILY PRN, other, gas, Starting on Thu09/28/20 at 2316, Chew., Post-procedure sodium chloride (PF) 0.9% PF flush 3 mL Given 09/29/2020 4:01 PM TOWER CRANE OPERATOR 3 mLs 3 mL, Intracatheter, EVERY 8 HOURS PRN, other, to lock peripheral IV dormant line, Starting on Thu09/28/20 at 2316, Post-procedure documented in this encounter Active and Recently Administered Medications Times are shown in TOWER CRANE OPERATOR. Scheduled Medication Order 09/28/2020 09/29/2020 09/30/2020 acetaminophen [...] Maricruz Rogers, RN) STAT, 500 mg, Intravenous, PRE-OP/PRE-MI OCEDURE, Starting Thu09/28/20 at 1851, For 1 [...] minutes PRIOR TO SURGICAL PROCEDURE., Pre-procedure Tdap (nuuwjkc-fbbpidjbxz-undik pertussis) (ADACEL) injection 0.5 mL 1000 (Canceled [...] Provider) 50-100 mcg, Intravenous, EVERY 1 HOUR MI N, other, desired pain relief based on [...] For ordered IV doses 0.1-2mg give I ELECTRIC RANGE ASSEMBLER. Give each 0.4mg over 15 seconds in [...] anceled Entry - Provider: Maria Del Rosario Stevne, RN)1947 (Auto Hold - Provider: Orders Generic [...] or analgesic side effects. Hold while on BUS GIRL or with regular IV opioid dosing. Maximum [...] documented as of this encounter Care Teams Kelp Cutter Relationship Specialty Start Date End Date Blank Lemos MD PCP - General Internal Medicine 04/22/[address] [place] [address] KISHAN RENO [phone] Blank Lemos MD Assigned PCP 04/25/[address] [place] [address] [place] [phone] Kathleen Lacy CNM Assigned OBGYN Provider 06/01/20 11/23/21 [place] [address] documented as of this encounter
--- OUTSIDE RECORDS SUMMARY | 2022-06-13 09:02 | XMS_ITS | Encounter Summary ---
:1990 Author Organization [place] Address [facility] [place] [address] Care Team Providers Name Role Phone Blank [...] Weeks Follow Up [address] [place] [address] Referral ID Status Reason Start Date Expiration Date Visits Requ ested Visits Authorized [id number] Closed 08/20/2020 08/20/2021 1 1 EWATER MANAGER Reason for Visit Reason Comments Care 34w 4d, c/o leg cramps and r estless legs, also period like cramps Encounter Details Date Type Department Care Team Description 08/20/2020 Office [facility] Chapo Cat er for supervision of normal first in third trimester (Primary Dx); Visit [facility] YARELI Rowe Pelvic pain affecting in third trimester, antepartum; [place] [address] Excessive weight gain during in third trimester [address] [place], [place] [address] [address] [place], [place] [phone] [address] (Work) [phone] Social History Tobacco Use Types Packs/Day Years [...] with No / Unsure 08/20/2020 1:54 PM WASTEWATER MANAGER someone who was confirmed or suspected to have Coronavirus / COVID-19? documented as of this encounter Last Filed Vital Signs Vital Sign Reading Time Taken Comments Blood Pressure 122/70 08/20/2020 1:58 PM WASTEWATER MANAGER Pulse - - Temperature - - Respiratory Rate - - Oxygen Saturation - - Inhaled Oxygen Concentration - - Weight 112.5 kg (248 lb) 08/20/2020 1:58 PM WASTEWATER MANAGER Height - - Body Mass Index 43.93 [...] H. Octavia Jones CNM 08/20/2020 4:56 PM EWATER MANAGER documented in this encounter Nursing Notes Luz [...] HM Due: NONE Luz Maria Abreu CMA EWATER MANAGER documented in this encounter Plan of Treatment Not on filedocumented as of this encounter Procedures Procedure Name Priority Date/Time Associated Comments Diagnosis UA WITH MICROSCOPIC Routine 08/20/2020 2:30 PM Pelvic pain Re sults for this AND REFLEX TO CULTURE WASTEWATER MANAGER affecting procedure are in in third trimester, the resu lts antepartum section. URINE CULTURE Routine 08/20/2020 2:30 PM Pelvic pain Results for this WASTEWATER MANAGER affecting procedur e are in in third trimester, the resu lts antepartum section. documented in this encounter Results US OB >14 Weeks Follow Up (09/03/2020 1:47 PM WASTEWATER MANAGER) Anatomical Region Laterality Modality Abdomen/Pelvis Ultrasound Specimen (Source) Anatomical Location Collection Method / Collectio n Time Received Time / Laterality Volume Impressions 09/03/2020 4:32 PM WASTEWATER MANAGER ? [place] Gestation. ?? presentation: Cephalic Placenta: [...] Kori Booker MD FAC Obstetrics and Gynecology [facility] Narrative 09/03/2020 4:32 PM WASTEWATER MANAGER [facility] Obstetrics and Gynecology ?? ULTRASOUND - OB [...] Urine Culture Aerobic Bacterial (08/20/2020 2:30 PM WASTEWATER MANAGER) Component Value Ref Test Analysis Performed At [facility] gist Range Method Time Signature Specimen Midstream Urine INFECTIOUS Description DISE[facility]ES [facility], [facility] Special Specimen received 08/20/2020 INFECTIOUS Requests in preservative 6:49 PM WASTEWATER MANAGER DISEASES DIAGNOSTIC LABORATORY, [facility] Culture Micro <10,000 colonies/mL 08/21/2020 INFEC TIOUS urogenital andre 4:51 PM WASTEWATER MANAGER DISEASES Susceptibility testing not routinely done DIAGNOSTIC LABORATORY, [facility] Specimen (Source) Anatomical Collection Method Collection Time Re ceived Time Location / / Volume Laterality Examination of 08/20/2020 2:30 08/20/2020 2:44 midstream urine PM WASTEWATER MANAGER PM WASTEWATER MANAGER specimen (procedure) Soledad Jones CNM LAB - MICRO GENERAL ORDERABL ES Performing Organization Address City/State/ZIP Code Phon e Number INFECTIOUS [facility] DI[facility]NOSTIC [address] [facility], [address] [address] LABORATORY, [facility] (ABNORMAL) UA with Microscopic reflex to Culture (08/20/2020 2:30 PM WASTEWATER MANAGER) Patholo gist Method Time Signature Color Urine Yellow 08/20/2020 [facility] 2:56 PM WASTEWATER MANAGER [facility] [place] Appearance Urine Clear 08/20/2020 [facility] 2:56 PM WASTEWATER MANAGER [facility] [place] Glucose Urine Negative NEG^Negat 08/20/2020 [facility] yakelin mg/dL 2:56 PM WASTEWATER MANAGER [facility] Bilirubin Urine Negative NEG^Negat 08/20/2020 [facility] yakelin 2:56 PM WASTEWATER MANAGER [facility] [place] Ketones Urine Negative NEG^Negat 08/20/2020 [place] yakelin mg/dL 2:56 PM [facility] Specific [place] 1.015 1.003 - 08/20/2020 [place] Urine 1.035 2:56 PM [facility] pH Urine 7.0 5.0 - 7.0 08/20/2020 [place] pH 2:56 PM [facility] Protein Albumin Negative NEG^Negat 08/20/2020 [place] Urine yakelin mg/dL 2:56 PM [facility] Urobilinogen 0.2 0.2 - 1.0 08/20/2020 [place] Urine EU/dL 2:56 PM WASTEWATER MANAGER [facility] Nitrite Urine Negative NEG^Negat 08/20/2020 [place] yakelin 2:56 PM [facility] Blood Urine Negative NEG^Negat 08/20/2020 [place] yakelin 2:56 PM [facility] Leukocyte Trace (A) NEG^Negat 08/20/2020 [place] Esterase Urine yakelin 2:56 PM [facility] Source Midstream 08/20/2020 [place] Urine 2:43 PM [facility] WBC Urine 5-10 (A) OTO5^0 - 08/20/2020 [place] 5 /HPF 2:56 PM [facility] RBC Urine O - 2 OTO2^O - 08/20/2020 [place] 2 /HPF 2:56 PM [facility] Squamous Few FEW^Few 08/20/2020 [place] Epithelial /LPF /LPF 2:56 PM [facility] Urine [place] Bacteria Urine Moderate (A) NEG^Negat 08/20/2020 [facility] /HPF 2:56 PM [facility] Amorphous Moderate (A) NEG^Negat 08/20/2020 [place] Crystals yakelin /HPF 2:56 PM [facility] Specimen (Source) Anatomical Collection Method Collection Time Re ceived Time Location / / Volume Laterality Examination of 08/20/2020 2:30 08/20/2020 2:43 midstream urine PM WASTEWATER MANAGER PM WASTEWATER MANAGER specimen (procedure) Soledad Jones CNM LAB - URINE ORDERABLES Performing Organization Address City/State/ZIP Code Phon e Number [facility] [address] [place] [address] [address] documented in [...] documented as of this encounter Care Teams Hand Stemmer Relationship Specialty Start Date End Date Blakn Lemos MD PCP - General Internal Medicine 04/22/[address] [place] [address] [place] [phone] Blank Lemos MD Assigned PCP 04/25/[address] [place] [address] [place] [phone] Kathleen Lacy CNM Assigned OBGYN Provider 06/01/20 11/23/21 [place] [address] documented as of this encounter
--- OUTSIDE RECORDS SUMMARY | 2022-06-13 09:02 | XMS_ITS | Encounter Summary ---
:1990 Author Organization [place] Address [facility] [place] [address] Care Team Providers Name Role Phone Blank Lemos MD Primary Care Provider Blank Lemos MD Unavailable Kathleen Lacy CNM Unavailable Reason for Visit Reason Onset Date Comments Appointment 08/27/2020 need to schedule f/u Encounter Details Date Type Department Care Team Description 08/27/2020 Telephone [facility] Blank Lemosal nt (need to Clinic [place] MD schedule f/u ) [address] [facility] [address] [place] [address] [place] [address] [phone] Social History Tobacco Use Types Packs/Day Years [...] with No / Unsure 09/28/2020 8:47 AM TAPPING MACHINE OPERATOR AUTOMATIC someone who was confirmed or suspected to have Coronavirus / COVID-19? documented as of this encounter Miscellaneous Notes Telephone Encounter - Nahed Carrillo MA - 10/08/2020 10:05 AM CST See below; closing encounter. VITALY ALEJANDRO MA on 10/08/2020 at 10:05 AM ING MACHINE OPERATOR AUTOMATIC Telephone Encounter - Melodie Curiel - 08/29/2020 12:18 PM CST Sent C2cube message that patient has appt for a physical in December with Dr. Lemos. ING MACHINE OPERATOR AUTOMATIC Telephone Encounter - Nahed Carrillo MA - 08/27/2020 2:[address] Lemos: Schedule follow up physical in November/December. I left message for patient to return call. VITALY ALEJANDRO MA on 08/27/2020 at 2:28 PM ING MACHINE OPERATOR AUTOMATIC documented in this encounter Plan of Treatment Not on filedocumented as of this encounter Visit Diagnoses Not on filedocumented in this encounter Additional Health Concerns Assessment Noted Time PHQ-9 Depression Total Score: 5 12/06/2020 7:02 AM CDT documented as of this encounter Care Teams Adolescent Counselor Relationship Specialty Start Date End Date Blank Lemos MD PCP - General Internal Medicine 04/22/18 [address] [facility] KISHAN RENO [phone] Blank Lemos MD Assigned PCP 04/25/18 [address] [facility] KISHAN RENO [phone] Kathleen Lacy CNM Assigned OBGYN Provider 06/01/20 11/23/21 [place] [address] documented as of this encounter
--- OUTSIDE RECORDS SUMMARY | 2022-06-13 09:02 | XMS_ITS | Encounter Summary ---
:1990 Author Organization [place] Address [address] [place] [address] Care Team Providers Name Role Phone Blank [...] with No / Unsure 08/06/2020 1:53 PM FLY WORKER someone who was confirmed or suspected to have Coronavirus / COVID-19? documented as of this encounter Plan of Treatment Not on filedocumented as of this encounter Visit Diagnoses Not on filedocumented in this encounter Additional Health Concerns Assessment Noted Time PHQ-9 Depression Total Score: 10 02/02/2020 8:23 AM CD T documented as of this encounter Care Teams Nuisance Wildlife Trapper Relationship Specialty Start Date End Date Blank Lemos MD PCP - General Internal Medicine 04/22/[address] [place] [address] KISHAN RENO [phone] Blank Lemos MD Assigned PCP 04/25/[address] [place] [address] [place] R[place] [phone] Kathleen Lacy CNM Assigned OBGYN Provider 06/01/20 11/23/21 Cipri[address] Rivera [place] [address] documented as of this encounter
--- OUTSIDE RECORDS SUMMARY | 2022-06-13 09:02 | XMS_ITS | Encounter Summary ---
:1990 Author Organization [place] Address [facility] [place] [address] Care Team Providers Name Role Phone Blank Lemos MD Primary Care Provider Blank Lemos MD Unavailable Kathleen Lacy CNM Unavailable Reason for Visit Reason Comments Care Encounter Details Date Type Department Care Team Description 09/10/2020 Office [facility] Kathleen Lacy, High -risk , third trimester (Primary Dx); [facility] CNM Anxiety during in third trimes ter, antepartum [place] [address] [place], [place] [address] [address] [place], [place] [phone] [address] (Work) [phone] Social History Tobacco Use Types Packs/Day Years [...] with No / Unsure 09/10/2020 8:39 AM SOUS CHEF someone who was confirmed or suspected to have Coronavirus / COVID-19? documented as of this encounter Last Filed Vital Signs Vital Sign Reading Time Taken Comments Blood Pressure 120/84 09/10/2020 8:42 AM SOUS CHEF Pulse - - Temperature - - Respiratory Rate - - Oxygen Saturation - - Inhaled Oxygen Concentration - - Weight 113.9 kg (251 lb) 09/10/2020 8:42 AM SOUS CHEF Height - - Body Mass Index 44.46 [...] swelling in is very normal) If your director of compensation feels that you are developing preeclampsia, you will have lab tests drawn and will be monitored very closely. If you are experiencing anyof these symptoms, Call Tracy Plascencia [phone] CHEF documented in this encounter Progress Notes Kathleen [...] clinic 1 weeks Kathleen Lacy APRN, CNM CHEF documented in this encounter Nursing Notes Gonzalez [...] smoking habits. Pt. has never smoked. +FM CHEF documented in this encounter Plan of Treatment Not on filedocumented as of this encounter Visit Diagnoses Diagnosis High-risk , third trimester - P rimary Anxiety during in third trimes ter, antepartum documented in this encounter Additional Health Concerns Assessment Noted Time PHQ-9 Depression Total Score: 5 12/06/2020 7:02 AM CDT documented as of this encounter Care Teams Software Database Architect Relationship Specialty Start Date End Date Blank Lemos MD PCP - General Internal Medicine 04/22/[address] [place] [address] KISHAN RENO [phone] Blank Lemos MD Assigned PCP 04/25/[address] [place] [address] K[place]AN RENO [phone] Kathleen Lacy CNM Assigned OBGYN Provider 06/01/20 11/23/21 [place] [address] documented as of this encounter
--- OUTSIDE RECORDS SUMMARY | 2022-06-13 09:02 | XMS_ITS | Encounter Summary ---
:1990 Author Organization [place] Address [address] [facility] [place] [address] Care Team Providers Name Role Phone Blank Lemos MD Primary Care Provider Blank Lemos MD Unavailable Kathleen Lacy CNRadha Unavailable Reason for Visit Reason Comments Care 38w 4d, review restrictions at hospital Encounter Details Date Type Department Care Team Description 09/17/2020 Office [facility] , Visit [facility] YARELI Rowe third trimester [place] [address] (Primary Dx) [address] [place], [place] [address] [address] [place], [place] [phone] [address] (Work) [phone] Social History Tobacco Use Types Packs/Day Years [...] with No / Unsure 09/17/2020 1:55 PM COP EXAMINER someone who was confirmed or suspected to have Coronavirus / COVID-19? documented as of this encounter Last Filed Vital Signs Vital Sign Reading Time Taken Comments Blood Pressure 124/76 09/17/2020 1:59 PM COP EXAMINER Pulse - - Temperature - - Respiratory Rate - - Oxygen Saturation - - Inhaled Oxygen Concentration - - Weight 113.4 kg (250 lb) 09/17/2020 1:59 PM COP EXAMINER Height - - Body Mass Index 44.29 [...] H. Octavia Jones CNM 09/17/2020 2:15 PM EXAMINER documented in this encounter Nursing Notes Luz [...] HM Due: NONE Luz Maria Abreu CMA EXAMINER documented in this encounter Plan of Treatment Not on filedocumented as of this encounter Visit Diagnoses Diagnosis High-risk , third trimester - P rimary documented in this encounter Additional Health Concerns Assessment Noted Time PHQ-9 Depression Total Score: 5 12/06/2020 7:02 AM CDT documented as of this encounter Care Teams Manager In Training Relationship Specialty Start Date End Date Blank Lemos MD PCP - General Internal Medicine 04/22/[address] [place] [address] K[place] R[place] [phone] Blank Lemos MD Assigned PCP 04/25/[address] [place] [address] K[place] R[place] [phone] Kathleen Lacy, YARELI Assigned OBGYN Provider 06/01/20 11/23/21 [address] [place] [address] documented as of this encounter
--- OUTSIDE RECORDS SUMMARY | 2022-06-13 09:02 | XMS_ITS | Encounter Summary ---
:1990 Author Organization [place] Address [facility] [place] [address] Care Team Providers Name Role Phone Blank Lemos MD Primary Care Provider Blank Lemos MD Unavailable Kathleen Lacy CNM Unavailable Reason for Visit Reason Onset Date Comments Abdominal Pain 08/09/2020 Encounter Details Date Type Department Care Team Description 08/09/2020 Telephone [facility] Women[facility] Ryann poon, Faiza Rodriguez, YARELI [facility] [address] [place] [address] [address] [place] [address] [phone] Social History Tobacco Use Types Packs/Day Years [...] with No / Unsure 08/06/2020 1:53 PM ACID RETORT OPERATOR someone who was confirmed or suspected to have Coronavirus / COVID-19? documented as of this encounter Miscellaneous Notes Telephone Encounter - Faiza Reyes CNM - 08/09/2020 8:20 PM CST Patient paged CNM learning solutions specialist with reports of period like cramps earlier today. Now cramping has resolved, but patient :just feels off. Baby active. No vaginal bleeding or leaking or fluid. No other symptoms, fever, nausea or vomiting. Advised patient to try some tylenol, push fluids and rest. Call ifshe begins to feel worse. Encouraged patient to call with any questions or concerns. Faiza Reyes APRN, CNM RETORT OPERATOR documented in this encounter Plan of Treatment Not on filedocumented as of this encounter Visit Diagnoses Not on filedocumented in this encounter Additional Health Concerns Assessment Noted Time PHQ-9 Depression Total Score: 10 02/02/2020 8:23 AM CD T documented as of this encounter Care Teams Certification Officer Relationship Specialty Start Date End Date Blank Lemos MD PCP - General Internal Medicine 04/22/18 [address] [facility] [place] [address] Blank Lemos MD Assigned PCP 04/25/18 [address] [facility] [place] [address] Lacy, Kathleen A, CNM Assigned OBGYN Provider 06/01/20 11/23/21 [address] [place], [place] [address] documented as of this encounter
--- OUTSIDE RECORDS SUMMARY | 2022-06-13 09:02 | XMS_ITS | Encounter Summary ---
:1990 Author Organization [place] Address [address] [place] [address] Care Team Providers Name Role Phone Blank [...] with No / Unsure 07/23/2020 1:56 PM MOULDER OPERATOR someone who was confirmed or suspected to have Coronavirus / COVID-19? documented as of this encounter Plan of Treatment Not on filedocumented as of this encounter Visit Diagnoses Not on filedocumented in this encounter Additional Health Concerns Assessment Noted Time PHQ-9 Depression Total Score: 10 02/02/2020 8:23 AM CD T documented as of this encounter Care Teams Health Safety Engineer Relationship Specialty Start Date End Date Blank Lemos MD PCP - General Internal Medicine 04/22/[address] [place] [address] KISHAN RENO [phone] Blank Lemos MD Assigned PCP 04/25/[address] [place] [address] K[place] R[place] [phone] Kathleen Lacy CNM Assigned OBGYN Provider 06/01/20 11/23/21 [address]riano [place] [address] documented as of this encounter
--- OUTSIDE RECORDS SUMMARY | 2022-06-13 09:03 | XMS_ITS | Encounter Summary ---
:1990 Author Organization [place] Address [facility] [place] [address] Care Team Providers Name Role Phone Blank Lemos MD Primary Care Provider Blank Lemos MD Unavailable Reason for Referral Diagnostic Imaging Ultrasound (Routine) - Closed Specialty Diagnoses / Procedures Referred By Contact Refer red To Contact Diagnoses related condition, antepartum Soledad Jones CNM Procedures [facility] Single [address] [place] [address] Referral ID Status Reason Start Date Expiration Date Visits Requ ested Visits Authorized [id number] Closed 05/01/2020 05/01/2021 1 1 Reason for Visit Diagnostic Imaging Ultrasound (Routine) - Closed Specialty Diagnoses / Procedures Referred By Contact Refer red To Contact Diagnoses related condition, antepartum Soledad Jones CNM Procedures [facility] Single [address] [place] [address] Referral ID Status Reason Start Date Expiration Date Visits Requ ested Visits Authorized [id number] Closed 05/01/2020 05/01/2021 1 1 Encounter Details Date Type Department Care Team Description 05/11/2020 Hospital Encounter [facility] Soledad Jones CNM [address] [place], [place] [phone] related Maternal Ana Danielle MD [address] [place], [place] [address] condition, Medicine Center antepartum [place] Cipriano Webb [facility] [address] [place] [phone] Social History Tobacco Use Types Packs/Day Years [...] Procedure Name Priority Date/Time Associated Comments Diagnosis [facility] US COMPREHENSIVE Routine 05/11/2020 10:21 relate d Results for this SINGLE AM CDT condition, procedure are i n antepartum the results section. documented in this encounter Results [facility] US Comprehensive Single (05/11/2020 10:21 AM [...] Study Date : 05/11/2020 9:20am Pat. NO: [id number] Referring ??[facility] Transition Teacher: Moraima Keita RD MS : 1990 Age: [...] lb 13 ? oz EFW by ?Hadlock ([id number]) Head / Face / Neck Biometry: Schedule Planning Manager ? 7.5 ? mm CM ?3.7 ? [...] cava. Inferior vena cava. 3-vessel ? view. 5-suzcha-qlovfpa view. Cardiac position. Cardiac size. Cardiac rhythm. [...] Pat. Name:Noemi RESENDIZ Date: 9:20am Pat. NO: [id number] MD:SOLEDAD WERNER Site:[place]:Moraima Keita RDMS :1990Age:30 INDICATION Suboptimal heart anatomy [...] 0 lb 13 oz EFW by Hadlock ([id number]) Head / Face / Neck Biometry: Schedule Planning Manager 7.5 mm CM 3.7 mm Nasal bone [...] vena cava. Inferior vena cava. 3-vessel view. 1-igbzkc-twjxmho view. Cardiac po sition. Cardiac size. Cardiac [...] cervix appears long and closed. Soledad Cruzosmeljodie [facility] US ORDERABLES documented in this encounter Visit Diagnoses Diagnosis related condition, antepartum documented in this encounter Additional Health Concerns Assessment Noted Time PHQ-9 Depression Total Score: 10 02/02/2020 8:23 AM CD T documented as of this encounter Care Teams Car Installations Supervisor Relationship Specialty Start Date End Date Blank Lemos MD PCP - General Internal Medicine 04/22/[address] [place] [address] KISHAN RENO [phone] Blank Lemos MD Assigned PCP 04/25/[address] [place] [address] KISHAN RENO [phone] documented as of this encounter
--- OUTSIDE RECORDS SUMMARY | 2022-06-13 09:03 | XMS_ITS | Encounter Summary ---
:1990 Author Organization [place] Address [address] [place] [address] Care Team Providers Name Role Phone Blank [...] with No / Unsure 06/18/2020 2:11 PM TRIAGE CLINICIAN someone who was confirmed or suspected to have Coronavirus / COVID-19? documented as of this encounter Plan of Treatment Not on filedocumented as of this encounter Visit Diagnoses Not on filedocumented in this encounter Additional Health Concerns Assessment Noted Time PHQ-9 Depression Total Score: 10 02/02/2020 8:23 AM CD T documented as of this encounter Care Teams Paving Block Cutter Relationship Specialty Start Date End Date Blank Lemos MD PCP - General Internal Medicine 04/22/[address] [place] [address] KISHAN RENO [phone] Blank Lemos MD Assigned PCP 04/25/[address] [place] [address] K[place] R[place] [phone] Kathleen Lacy CNM Assigned OBGYN Provider 06/01/20 11/23/21 [address]ipri[address] Rivera [place] [address] documented as of this encounter
--- OUTSIDE RECORDS SUMMARY | 2022-06-13 09:03 | XMS_ITS | Encounter Summary ---
:1990 Author Organization [place] Address [address] [place] [address] Care Team Providers Name Role Phone Blank [...] as of this encounter Care Teams Customer Service Voice Relationship Specialty Start Date End Date Blank Lemos MD PCP - General Internal Medicine 04/22/[address] [place] [address] KISHAN RENO [phone] Blank Lemos MD Assigned PCP 04/25/[address] [place] [address] K[place]AN RENO [phone] documented as of this encounter"
--- OUTSIDE RECORDS SUMMARY | 2022-06-13 09:03 | XMS_ITS | Encounter Summary ---
:1990 Author Organization [place] Address [facility] [address] Care Team Providers Name Role Phone Blank Lemos MD Primary Care Provider Blank Lemos MD Unavailable Reason for Visit Diagnostic Imaging Ultrasound (Routine) - Closed Specialty Diagnoses / Procedures Referred By Contact Refer red To Contact Diagnoses care in first trimester Mayra Cooper CNM Procedures US OB > [address] [place], [place] [address] Referral ID Status Reason Start Date Expiration Date Visits Requ ested Visits Authorized [id number] Closed 03/27/2020 03/27/2021 1 1 Encounter Details Date Type Department Care Team Description 05/01/2020 Ancillary Procedure [facility] Mayra Cooper care in Clinic Kely Kendall CNM first trimester [address] [facility] [address] [place] [address] [place] [phone] Social History Tobacco Use Types Packs/Day Years [...] Laterality Volume Narrative 05/01/2020 11:40 AM CDT [facility] Obstetrics and Gynecology ?? ULTRASOUND - OB [...] fluid assessment is: Normal. Recommend referral to [facility] for targeted u ltrasound to evaluate anatomy not well seen on this exam. anomalies may be present but not d etected. Dina Germain MD Obstetrics and Gynecology [facility] ? Mayra Kendall Allison CN IMG US ORDERABLES documented in this encounter Visit Diagnoses Diagnosis care in first trimester documented in this encounter Additional Health Concerns Assessment Noted Time PHQ-9 Depression Total Score: 10 02/02/2020 8:23 AM CD T documented as of this encounter Care Teams Rug Cutter Relationship Specialty Start Date End Date Blank Lemos MD PCP - General Internal Medicine 04/22/[address] [place] [address] K[place]AN RENO [phone] Blank Lemos MD Assigned PCP 04/25/[address] [place] [address] KISHAN RENO [phone] documented as of this encounter
--- OUTSIDE RECORDS SUMMARY | 2022-06-13 09:03 | XMS_ITS | Encounter Summary ---
:1990 Author Organization [place] Address [facility] [place] [address] Care Team Providers Name Role Phone Blank Lemos MD Primary Care Provider Blank Lemos MD Unavailable Reason for Visit Reason Comments Ultrasound L2-subopt anatomy on outside scan Encounter Details Date Type Department Care Team Description 05/09/2020 PRE VISIT [facility] Eliza Lux, UNRULY Ultra sound (L2-subopt Maternal Medicine guillermina harjeet on outside scan) [facility] [address] [facility] [address] [place] [address] Social History Tobacco Use Types [...] documented as of this encounter Care Teams Blanking Press Operator Relationship Specialty Start Date End Date Blank Lemos MD PCP - General Internal Medicine 04/22/[address] [place] [address] K[place]AN RENO [phone] Blank Lemos MD Assigned PCP 04/25/[address] [place] [address] K[place] RENO [phone] documented as of this encounter
--- OUTSIDE RECORDS SUMMARY | 2022-06-13 09:03 | XMS_ITS | Encounter Summary ---
:1990 Author Organization [place] Address [facility] [place] [address] Care Team Providers Name Role Phone Blank Lemos MD Primary Care Provider Blank Lemos MD Unavailable Reason for Visit Reason Comments Care 21w 4d, discsuss SOB, sweati ng, gagging while eating, medications and itching hands for a couple d ays Encounter Details Date Type Department Care Team Description 05/21/2020 Office [facility] Kathleen Lacy Prur itus of in second trimester (Primary Dx); [facility] CNM Encounter for supervision of normal firs t in second trimester; [place] [address] Anxiety during in second trimester, antepartum [address] [place], [place] [address] [address] [place], [place] [phone] [address] (Work) [phone] Social History Tobacco Use Types Packs/Day Years [...] Bile Acids 6 0 - 10 05/22/2020 [place] Total umol/L 3:36 PM CDT [facility] Comment: (Note) INTERPRETIVE INFORMATION: Bile Acids, To carlita Reference Interval applies to fasting sp ecimens. Performed By: [facility] [address] [place] [id number] Hand Tire Trimmer: Annalise Hope MD Specimen Anatomical Collection Method Collection Time Receive d Time (Source) Location / / Volume Laterality Blood specimen 05/21/2020 9:56 AM 020 (specimen) CDT 10:01 AM CDT Kathleen [facility] - BLOOD ORDERABLES Performing Organization Address City/State/ZIP Code Phon e Number [facility] [address] [place], [place] [address] [address] (ABNORMAL) Comprehensive metabolic panel (BMP + Alb, Alk Phos, ALT, AST, Total. Bili, TP) (05/21/2020 9:56 AM CDT) Analysis Performed At [facility] Time Signature Sodium 139 133 - 144 05/22/2020 [place] mmol/L 7:24 AM CDT [facility] Potassium 4.0 3.4 - 5.3 05/22/2020 [place] mmol/L 7:24 AM CDT [facility] Chloride 108 94 - 109 05/22/2020 [place] mmol/L 7:24 AM CDT [facility] Carbon Dioxide 21 20 - 32 05/22/2020 [place] mmol/L 7:48 AM CDT [facility] Anion Gap 10 3 - 14 05/22/2020 [place] mmol/L 7:48 AM CDT [facility] Glucose 110 (H) 70 - 99 05/22/2020 [place] mg/dL 7:48 AM T [facility] Comment: Non Fasting Urea Nitrogen 5 (L) 7 - 30 mg/dL 05/22/2020 7:48 AM T [facility] Creatinine 0.58 0.52 - 1.04 mg/dL 05/22/2020 7:48 AM CD T [facility] GFR Estimate >90 >60 05/22/2020 7:48 AM CDT [facility] mL/min/{1.73_m2} [facility] [facility] [place] Comment: Non GFR Calc Starting 07/27/2018, serum creatinine ba sed estimated GFR (eGFR) will be calculated using the Chronic Kidney Dise [facility] Epidemiology Collaboration (CKD-EPI) equation. GFR Estimate If >90 >60 mL/min/{1.73_m2} 05/22/2020 7: 48 AM [facility] Black T [facility] Comment: GFR Calc Starting 07/27/2018, serum creatinine ba sed estimated GFR (eGFR) will be calculated using the Chronic Kidney Dise ase Epidemiology Collaboration (CKD-EPI) equation. Calcium 8.9 8.5 - 10.1 05/22/2020 7:48 AM [place] [facility] mg/dL CDT [facility] Bilirubin Total 0.2 0.2 - 1.3 05/22/2020 7:55 AM [facility] mg/dL CDT [facility] Albumin 2.6 (L) 3.4 - 5.0 g/dL 05/22/2020 7:55 AM [facility] CDT [facility] Protein Total 6.4 (L) 6.8 - 8.8 g/dL 05/22/2020 7:55 AM [facility] CDT [facility] Alkaline Phosphatase 73 40 - 150 U/L 05/22/2020 7:55 AM [facility] CDT [facility] ALT 18 0 - 50 U/L 05/22/2020 7:55 AM [facility] CDT [facility] AST 14 0 - 45 U/L 05/22/2020 7:55 AM [facility] CDT [facility] Specimen Anatomical Collection Method Collection Time Receive d Time (Source) Location / / Volume Laterality Blood specimen 05/21/2020 9:56 AM 020 (specimen) CDT 10:01 AM CDT Kathleen Lacy CNM LAB - BLOOD ORDERABLES Performing Organization Address City/State/ZIP Code Phon e Number [facility] [address] [place] [address] documented in this encounter Visit Diagnoses Diagnosis Pruritus of in second trimeste r - Primary Encounter for supervision of normal firs t in second trimester Supervision of normal first Anxiety during in second trime ster, antepartum documented in this encounter Additional Health Concerns Assessment Noted Time PHQ-9 Depression Total Score: 10 02/02/2020 8:23 AM CD T documented as of this encounter Care Teams Positive Printer Operator Relationship Specialty Start Date End Date Blank Lemos MD PCP - General Internal Medicine 04/22/18 [address] [address] [place], [place] [address] Blank Lemos MD Assigned PCP 04/25/18 [address] [facility] [address] [address] [place] [address] documented as of this encounter
--- OUTSIDE RECORDS SUMMARY | 2022-06-13 09:03 | XMS_ITS | Encounter Summary ---
:1990 Author Organization [place] Address [address] [place] [address] Care Team Providers Name Role Phone Blank [...] documented as of this encounter Care Teams Sheather Relationship Specialty Start Date End Date Blank Lemos MD PCP - General Internal Medicine 04/22/[address] [place] [address] KISHAN RENO [phone] Blank Lemos MD Assigned PCP 04/25/[address] [place] [address] [place] RENO [phone] documented as of this encounter
--- OUTSIDE RECORDS SUMMARY | 2022-06-13 09:03 | XMS_ITS | Encounter Summary ---
:1988 Author Organization [place] Address [address] [place] [address] Care Team Providers Name Role Phone Blank [...] as of this encounter Care Teams Channel Marketing Manager Relationship Specialty Start Date End Date Blank Lemos MD PCP - General Internal Medicine 04/22/[address] [place] [address] KISHAN RENO [phone] Blank Lemos MD Assigned PCP 04/25/[address] [place] [address] K[place] RENO [phone] documented as of this encounter
--- OUTSIDE RECORDS SUMMARY | 2022-06-13 09:03 | XMS_ITS | Encounter Summary ---
:1988 Author Organization [place] Address [address] [place] [address] Care Team Providers Name Role Phone Blank [...] documented as of this encounter Care Teams Security Vehicle Patrol Officer Relationship Specialty Start Date End Date Blank Lemos MD PCP - General Internal Medicine 04/22/[address] [place] [address] KISHAN RENO [phone] Blank Lemos MD Assigned PCP 04/25/[address] [place] [address] K[place] RENO [phone] documented as of this encounter
--- OUTSIDE RECORDS SUMMARY | 2022-06-13 09:03 | XMS_ITS | Encounter Summary ---
:1988 Author Organization [place] Address [address] [place] [address] Care Team Providers Name Role Phone Blank [...] documented as of this encounter Care Teams Gravity Prospecting Operator Relationship Specialty Start Date End Date Blank Lemos MD PCP - General Internal Medicine 04/22/[address] [place] [address] KISHAN RENO [phone] Blank Lemos MD Assigned PCP 04/25/[address] [place] [address] K[place] RENO [phone] documented as of this encounter
--- OUTSIDE RECORDS SUMMARY | 2022-06-13 09:03 | XMS_ITS | Encounter Summary ---
:1990 Author Organization [place] Address [facility] [place] [address] Care Team Providers Name Role Phone Blank Lemos MD Primary Care Provider Blank Lemos MD Unavailable Reason for Visit Reason Comments Medication Refill Encounter Details Date Type Department Care Team Description 03/02/2020 Refill [facility] Blank Oliveros MD Medication Refill Dev [address] [facility] [address] [place] [address] [address] [place] [address] [phone] Social History Tobacco Use Types Packs/Day Years [...] with OB. Blank Lemos MD Internal Medicine/Pediatrics [facility] Telephone Encounter - Margarita Lowry RN - [...] documented as of this encounter Care Teams Carton Packaging Machine Operator Relationship Specialty Start Date End Date Blank Lemos MD PCP - General Internal Medicine 04/22/[address] [place] [address] K[place] RENO [phone] Blank Lemos MD Assigned PCP 04/25/[address] [place] [address] KISHAN RENO [phone] documented as of this encounter
--- OUTSIDE RECORDS SUMMARY | 2022-06-13 09:03 | XMS_ITS | Encounter Summary ---
:1990 Author Organization [place] Address [address] [facility] [address] Care Team Providers Name Role Phone Blank Lemos MD Primary Care Provider Blank Lemos MD Unavailable Kathleen Lacy CNM Unavailable Reason for Visit Reason Comments Care 25w 4d Encounter Details Date Type Department Care Team Description 06/18/2020 Office [facility] Chapo Jones for supervision of normal first in second trimester (Primary Dx); Visit [facility] YARELI Rowe Non morbid obesity, unspecified obesity type [facility] [address] [place], [place] [address] [address] [place], [place] [phone] [address] (Work) [phone] Social History Tobacco Use Types Packs/Day Years [...] with No / Unsure 06/18/2020 2:11 PM CRAYON GRADER someone who was confirmed or suspected to have Coronavirus / COVID-19? documented as of this encounter Last Filed Vital Signs Vital Sign Reading Time Taken Comments Blood Pressure 116/66 06/18/2020 2:16 PM CRAYON GRADER Pulse - - Temperature - - Respiratory Rate - - Oxygen Saturation - - Inhaled Oxygen Concentration - - Weight 107 kg (236 lb) 06/18/2020 2:16 PM CRAYON GRADER Height - - Body Mass Index 41.81 [...] me. Britney Jones CNM 06/18/2020 2:34 PM ON GRADER documented in this encounter Plan of Treatment [...] documented as of this encounter Care Teams Extension Specialist Relationship Specialty Start Date End Date Blank Lemos MD PCP - General Internal Medicine 04/22/18 [address] [facility] K[place] RENO [phone] Blank Lemos MD Assigned PCP 04/25/18 [address] [facility] KISHAN RENO [phone] Kathleen Lacy CNM Assigned OBGYN Provider 06/01/20 11/23/[address] [place] [address] documented as of this encounter
--- OUTSIDE RECORDS SUMMARY | 2022-06-13 09:03 | XMS_ITS | Encounter Summary ---
:1990 Author Organization [place] Address [facility] [place] [address] Care Team Providers Name Role Phone Blank Lemos MD Primary Care Provider Blank Lemos MD Unavailable Reason for Visit Reason Comments Colposcopy 15 weeks Encounter Details Date Type Department Care Team Description 04/09/2020 Office Visit [facility] Sharita Frias ASCUS wi th positive [facility] MD Blu high risk HPV cervical [place] [id number] [place] [address] (Primary Dx) [address] [place], [place] [address] [address] [place], [place] (Work) [address] [phone] Social History Tobacco Use Types Packs/Day Years [...] +HR HPV, not 16/18. Plan colp 10/07/18 [place]- No lesions seen, no Bx taken. Plan [...] Procedure Name Priority Date/Time Associated Diagnosis Com[facility] HC COLP CERVIX/UPPER Routine 04/09/2020 1:59 PM [...] documented as of this encounter Care Teams Shear Operator Relationship Specialty Start Date End Date Blank Lemos MD PCP - General Internal Medicine 04/22/[address] [place] [address] K[place] REON [phone] Blank Lemos MD Assigned PCP 04/25/[address] [place] [address] KISH[place] RENO [phone] documented as of this encounter
--- OUTSIDE RECORDS SUMMARY | 2022-06-13 09:03 | XMS_ITS | Encounter Summary ---
:1990 Author Organization [place] Address [address] [facility] [place] [address] Care Team Providers Name Role Phone Blank Lemos MD Primary Care Provider Blank Lemos MD Unavailable Reason for Referral Diagnostic Imaging Ultrasound (Routine) - Closed Specialty Diagnoses / Procedures Referred By Contact Refer red To Contact Diagnoses care in first trimester Mayra Cooper CNM Procedures US OB > [address] [place], [place] [address] Referral ID Status Reason Start Date Expiration Date Visits Requ ested Visits Authorized [id number] Closed 03/27/2020 03/27/2021 1 1 Reason for Visit Reason Comments Care 13w 5d, still having some he adaches, nausea is better Encounter Details Date Type Department Care Team Description 03/27/2020 [facility] YARELI Kendall first trimester [place] [address] (Primary Dx) [address] [place] [address] [place], [place] [address] [address] [place], [place] [phone] [address] (Work) [phone] Social History Tobacco Use Types Packs/Day Years [...] Body Mass Index 39.33 07/15/2019 2:56 PM DRY WALL SPRAYER documented in this encounter Progress Notes Mayra Cooper CNM - 03/27/2020 9:30 AM CDT Feeling well. Baby is active. Denies any leaking of fluid, vaginal bleeding, regular uterine contractions, or headaches or other concerns. Discussed anatomy US. Ordered for 5-6 weeks. Can do the CNM appt the same day or virtually. Reviewed to call [phone] for contractions, loss of fluid, vaginal bleeding, decreased movement or any other questions or concerns. RTC in 4 weeks. Mayra Cooper DNP, PAINTER ORDNANCE, MARLENYM documented in this encounter Nursing Notes [...] Laterality Volume Narrative 05/01/2020 11:40 AM CDT [facility] Obstetrics and Gynecology ?? ULTRASOUND [...] fluid assessment is: Normal. Recommend referral to [facility] for targeted u ltrasound to evaluate anatomy not well seen on this exam. anomalies may be present but not d etected. Dina Germain MD Obstetrics and Gynecology [facility] ? Mayra Kendall Allison [facility] US ORDERABLES documented in this encounter Visit Diagnoses Diagnosis care in first trimester - Prima ry care in first trimester documented in this encounter Additional Health Concerns Assessment Noted Time PHQ-9 Depression Total Score: 10 02/02/2020 8:23 AM CD T documented as of this encounter Care Teams Contact Lens Flashing Puncher Relationship Specialty Start Date End Date Blank Lemos MD PCP - General Internal Medicine 04/22/18 [address] [facility] KISHAN RENO [phone] Blank Lemos MD Assigned PCP 04/25/18 [address] [facility] KISHAN RENO [phone] documented as of this encounter
--- OUTSIDE RECORDS SUMMARY | 2022-06-13 09:03 | XMS_ITS | Encounter Summary ---
:1990 Author Organization [place] Address [facility] [place] [address] Care Team Providers Name Role Phone Blank Lemos MD Primary Care Provider Blank Lemos MD Unavailable Reason for Visit Reason Onset Date Comments Refill Request 04/18/2020 traZODone (DESYREL) 50 MG tablet (Discontinued) Encounter Details Date Type Department Care Team Description 04/18/2020 Refill [facility] Blank Lemos, Re fill Request Clinic Dev [place] (traZODone (DESYREL) 50 [address] [place] [address] [facility] MG ta blet (Discontinued) [facility] ) [address] [place] [address] [place] [address] [phone] Social History Tobacco Use Types Packs/Day Years [...] as of this encounter Care Teams Security Solutions Engineer Relationship Specialty Start Date End Date Blank Lemos MD PCP - General Internal Medicine 04/22/18 [address] [facility] [facility] [facility] [address] [place], [place] [address] Blank Lemos MD Assigned PCP 04/25/18 [address] [facility] [address] [place], [place] [address] documented as of this encounter
--- OUTSIDE RECORDS SUMMARY | 2022-06-13 09:03 | XMS_ITS | Encounter Summary ---
:1990 Author Organization [place] Address [address] [place] [address] Care Team Providers Name Role Phone Blank [...] documented as of this encounter Care Teams Scraper Burrer Relationship Specialty Start Date End Date Blank Lemos MD PCP - General Internal Medicine 04/22/[address] [place] [address] KISHAN RENO [phone] Blank Lemos MD Assigned PCP 04/25/[address] [place] [address] K[place] RENO [phone] documented as of this encounter
--- OUTSIDE RECORDS SUMMARY | 2022-06-13 09:03 | XMS_ITS | Encounter Summary ---
:1988 Author Organization [place] Address [facility] [place] [address] Care Team Providers Name Role Phone Blank Lemos MD Primary Care Provider Blank Lemos MD Unavailable Reason for Referral Diagnostic Imaging Other (Routine) - Closed Specialty Diagnoses / Procedures Referred By Contact Refer red To Contact Diagnoses Encounter for supervision of normal first in second trimester Soledad Jones CNM [facility] [address] [place] [address] [place] [address] Phone: Referral ID Status Reason Start Date Expiration Date Visits Requ ested Visits Authorized [id number] Closed 05/01/2020 05/01/2021 1 1 Encounter Details Date Type Department Care Team Description 05/01/2020 Orders [facility] Soledad Jones Enc ounter for [facility] supervision of normal [place] [address] [place] first in [address] [place], [place] second [place] [address] (Primary Dx) [address] [place] [address] Social History Tobacco Use Types [...] as of this encounter Care Teams Water Purifier Relationship Specialty Start Date End Date Blank Lemos MD PCP - General Internal Medicine 04/22/18 [address] [facility] [place] [address] Blank Lemos MD Assigned PCP 04/25/18 [address] [facility] [place] [address] documented as of this encounter
--- OUTSIDE RECORDS SUMMARY | 2022-06-13 09:03 | XMS_ITS | Encounter Summary ---
:1990 Author Organization [place] Address [address] [place] [address] Care Team Providers Name Role Phone Blank [...] as of this encounter Care Teams Medical Supply Technician Relationship Specialty Start Date End Date Blank Lemos MD PCP - General Internal Medicine 04/22/[address] [place] [address] KISHAN RENO [phone] Blank Lemos MD Assigned PCP 04/25/[address] [place] [address] K[place] RENO [phone] documented as of this encounter
--- OUTSIDE RECORDS SUMMARY | 2022-06-13 09:03 | XMS_ITS | Encounter Summary ---
:1990 Author Organization [place] Address [facility] [place] [address] Care Team Providers Name Role Phone Blank Lemos MD Primary Care Provider Blank Lemos MD Unavailable Reason for Referral Diagnostic Imaging Ultrasound (Routine) - Closed Specialty Diagnoses / Procedures Referred By Contact Refer red To Contact Diagnoses related condition, antepartum Soledad Tracey CNM Procedures [facility] [address] [place] [address] Referral ID Status Reason Start Date Expiration Date Visits Requ ested Visits Authorized [id number] Closed 05/01/2020 05/01/2021 1 1 Encounter Details Date Type Department Care Team Description 05/01/2020 Transcribe Orders [facility] Robert, Pregn graciela related Maternal YARLEI Rowe condition, Medicine Center [address] antepartum (Primary [facility] Dx) [address] [place], [place] [address] [address] [place], [place] [phone] (Work) [phone] Social History Tobacco Use Types Packs/Day Years [...] on filedocumented as of this encounter Results [facility] US Comprehensive Single (05/11/2020 10:21 AM [...] Study Date : 05/11/2020 9:20am Pat. NO: [id number] Referring ??MD: JULIO TRACEY Site: [facility] Prescriptionist: Moraima Keita RD MS : 1990 Age: [...] lb 13 ? oz EFW by ?Hadlock ([id number]) Head / Face / Neck Biometry: Dermatological Surgeon ? 7.5 ? mm CM ?3.7 ? [...] cava. Inferior vena cava. 3-vessel ? view. 4-vtsyph-jorwyhm view. Cardiac position. Cardiac size. Cardiac rhythm. [...] Pat. Name:Noemi RESENDIZ Date: 9:20am Pat. NO: [id number] MD:SOLEDAD AGUIARSEBRING [facility]:Moraima Keita RDMS :1990Age:30 INDICATION Suboptimal heart anatomy [...] 0 lb 13 oz EFW by Hadlock ([id number]) Head / Face / Neck Biometry: Dermatological Surgeon 7.5 mm CM 3.7 mm Nasal bone [...] vena cava. Inferior vena cava. 3-vessel view. 1-dkoizw-vucwuwe view. Cardiac po sition. Cardiac size. Cardiac [...] the cervix appears long and closed. Soledad Roebrt [facility] US ORDERABLES documented in this encounter Visit Diagnoses Diagnosis related condition, antepartum - Primary related condition, antepartum documented in this encounter Additional Health Concerns Assessment Noted Time PHQ-9 Depression Total Score: 10 02/02/2020 8:23 AM CD T documented as of this encounter Care Teams City Clerk Relationship Specialty Start Date End Date Blank Lemos MD PCP - General Internal Medicine 04/22/[address] [place] [address] K[place] R[place] [phone] Blank Lemos MD Assigned PCP 04/25/[address] [place] [address] K[place]AN RENO [phone] documented as of this encounter
--- OUTSIDE RECORDS SUMMARY | 2022-06-13 09:03 | XMS_ITS | Encounter Summary ---
:1990 Author Organization [place] Address [facility] [place] [address] Care Team Providers Name Role Phone Blank Lemos MD Primary Care Provider Blank Lemos MD Unavailable Reason for Visit Reason Comments Care 17w 5d, c/o left wrist pain and increase of migraines Encounter Details Date Type Department Care Team Description 04/24/2020 Office [facility] Kathleen Lacy Enco unter for supervision of normal first in second trimester (Primary Dx); [facility] CNM Headache in , antepartum, secon d trimester; [place] [address] Carpal tunnel syndrome of le ft wrist [address] [place], [place] [address] [address] [place], [place] [phone] [address] (Work) [phone] Social History Tobacco Use Types Packs/Day Years [...] bent back when typing. ?? You may use??[id number]-ifxlfbx pain medicine to treat pain and inflammation, [...] or weak Date Last Reviewed: 12/08/2017 ?? [id number] [employer]. [address] [place] [address], [place] [address]. All rights reserved. This information is not [...] documented as of this encounter Care Teams Polo Coach Relationship Specialty Start Date End Date Blank Lemos MD PCP - General Internal Medicine 04/22/[address] [place] [address] K[place] RENO [phone] Blank Lemos MD Assigned PCP 04/25/[address] [place] [address] [place] RENO [phone] documented as of this encounter
--- OUTSIDE RECORDS SUMMARY | 2022-06-13 09:03 | XMS_ITS | Encounter Summary ---
:1990 Author Organization [place] Address [facility] [place] [place] [address] Care Team Providers Name Role Phone Blank Lemos MD Primary Care Provider Blank Lemos MD Unavailable Reason for Visit Reason Comments Ultrasound L2- subopt anatomy on outsid e screen Encounter Details Date Type Department Care Team Description 05/11/2020 Office Visit [facility] Stevan Jones nn, CN [address] [place] [address] related Maternal Ana Danielle MD [address] [place], [place] [id number] condition, antepartum Medicine Center (Primary Dx) [place] [address] [facility] [address] [place] [address] Social History Tobacco Use Types [...] as of this encounter Care Teams Manufacturing Executive Relationship Specialty Start Date End Date Blank Lemos MD PCP - General Internal Medicine 04/22/[address] [place] [address] [place] [phone] Blank Lemos MD Assigned PCP 04/25/[address] [place] [address] [place] R[place] [phone] documented as of this encounter
--- OUTSIDE RECORDS SUMMARY | 2022-06-13 09:04 | XMS_ITS | Encounter Summary ---
:1990 Author Organization [place] Address [facility] [place] [address] Care Team Providers Name Role Phone Blank Lemos MD Primary Care Provider Blank Lemos MD Unavailable Reason for Visit Reason Comments Care 9w 1d, c/o nausea and vomite d for first time last night Encounter Details Date Type Department Care Team Description 02/24/2020 Office [facility] Faiza Reyes for supervision of normal first in first trimester (Primary Dx); Visit [facility] YARELI Rodriguez BMI 45.0-49.9, adult (H); [place] [address] [place] [address] Pap smear for cervical cance r screening [address] [facility] [address] [place] [address] [place] [address] [phone] [address] (Work) [phone] Social History Tobacco Use Types Packs/Day Years [...] Body Mass Index 38.26 07/15/2019 2:56 PM MANAGER POWER documented in this encounter Patient Instructions Patient InstructionsFaiza Reyes CNM - 02/24/2020 9:00 AM CDT Thank you for coming to see the Midwives at the [facility] ?? We will notify you about your labs that were drawn today once we get the results back or if you have Tal Medicalhart they will be posted there as well [...] visit, you can reach the nurse healthcare architect consumer electronics merchandiser by calling our pager number [phone]. ?? If you wish to schedule another appointment, please call our office at [phone]. You can alsomake appointments through [employer] ?? If you have a medical emergency please call 911. Because you are , we have additional resources for you: ?? You may call our consulting RN's during normal business hours for non-urgent questions about yourpregnancy. ?? After hours you may also page the healthcare architect consumer electronics merchandiser for urgent questions or issues at [phone].There is always a healthcare architect consumer electronics merchandiser 24 hours a day. Reminders: Before 14 [...] Secure access to your medical record: Use Remedy Partnerst (secure email communication and access to your chart) to send your primary care providera message or make an appointment. Ask someone on your Team how to sign up for [email or web address]. To log on to Polyera or for more information in [email or web address] please visit the website at [email or web address]. Certified Nurse Sculpture Conservator (CNM) Team Faiza Reyes APRN, YARELI Rendon APRN, YARELI Ingram APRN, YARELI Jones APRN, YARELI Again, thank you for choosing the midwives at [facility]. We are excited to be a part [...] PAP: 2019 History of abnormal Pap? Yes: [facility] Health maintenance updated: yes Current medications [...] file Gets together: Not on file Attends jewish service: Not on file Active member of club or organization: Not on file Attends meetings of clubs or organizations: Not on file Relationship status: Not on file ??? Intimate partner violence Fear of current or ex partner: Not on file Emotionally abused: Not on file Physically abused: Not on file Forced sexual activity: Not on file Other Topics Concern ??? Parent/sibling w/ CABG, OK or angioplasty before 65F 55M? 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 Smokes 3 cigs per day down [...] found, no interventions. Pt thinks this happened [phone] ??? TONSILLECTOMY FAMILY HISTORY Family History Problem [...] tenderness or inflammation. Perineum without lesions. VAGINA: [place], normal rugae and discharge. CERVIX: Anterior, smooth, [...] of triage nurse line and contacting the consumer electronics merchandiser CNM after hours in an emergency. ?? Symptoms of N&V and fatigue usually start to resolve around 12-16 weeks ?? Reviewed CNM philosophy, call schedule for labor and delivery, and [facility] for delivery ?? 1st OB handout [...] desire a RN home visit from the [facility]? No If yes, paperwork completed? No F/U [...] Signature TSH 2.05 0.40 - 4.00 02/25/2020 [facility] mU/L 12:[address] [facility] Specimen Anatomical Collection Method Collection Time Receive d Time (Source) Location / / Volume Laterality Blood specimen 02/24/2020 9:47 AM 020 9:52 (specimen) CDT AM CDT Faiza Reyes CNM LAB - BLOOD ORDERABLES Performing Organization Address City/State/ZIP Code Phon e Number [facility] [address] [place] [address] Hemoglobin A1c (02/24/2020 9:47 AM CDT) athologist Signature Hemoglobin A1C 5.2 0 - 5.6 % 02/24/2020 [place] 2:13 PM CDT [facility] Comment: Normal <5.7% Prediabetes 5.7-6.4% ??Diab etes 6.5% or higher - adopted from ADA consensus guidelines. Specimen Anatomical Collection Method Collection Time Receive d Time (Source) Location / / Volume Laterality Blood specimen 02/24/2020 9:47 AM 020 9:52 (specimen) CDT AM CDT Faiza Reyes [facility] LAB - BLOOD ORDERABLES Performing Organization Address City/State/ZIP Code Phon e Number [facility] [address] [place], [place] [address] [address] (ABNORMAL) Pap imaged thin layer screen with HPV - recommended age 30 - 65 years (select HPV order below) (02/24/2020 9:35 AM CDT) Component Value Ref Test Analysis Performed At [facility] Range Method Time Signature PAP ASC-US (A) COPATH Copath Report COPATH Patient Name: RENA RESENDIZ MR#: [id number] Specimen #: [id number] Collected: 02/24/2020 Received: 02/27/2020 Reported: 02/29/2020 16:35 [...] or other cancer s. COLLECTION SITE: Client: ??[facility] Location: RIOB (R) The technical component of this testing was completed at the [facility], with the professional compo nent performed at the [facility], [address] [place], [place], [place] [address] ([phone]) Specimen (Source) Anatomical Collection Method Collection Time Re ceived Time Location / / Volume Laterality Cytologic 02/24/2020 9:35 02/27/2020 7 :32 material AM CDT AM CDT (specimen) Faiza [facility] - OPTIME CLINICAL SPECIM EN Performing Organization Address City/State/ZIP Code Phon e Number [place] (ABNORMAL) HPV High Risk Types DNA Cervical (02/24/2020 9:30 AM CDT) [facility] gist Method Time Signature HPV Source SurePath 02/24/2020 [place] 9:35 AM CDT [facility] HPV 16 DNA Negative NEG^Negat 03/05/2020 [facility] 6:46 AM CDT [facility] HPV 18 DNA Negative NEG^Negat 03/05/2020 [facility] [place] 6:46 AM CDT [facility] Other HR HPV Positive (A) NEG^Negat 03/05/2020 [facility] [place] 6:46 AM CDT [facility] Final This patient's sample is pos itive for other HR HPV DNA (types 31, 33, 35, 39, 45, 51, 52, 03/05/2020 [facility] 56, 58, 59, 66 or 68), not H PV 16 or HPV 18 DNA. This result requires clinical correlation 6:46 AM CDT [facility] with concurrent cytology findings. [facility] Comment: This test was developed and its performa nce characteristics determined by the [facility], Molecular Diagnostics Laboratory. It [...] Cervical Cells 02/24/2020 9:3 5 AM CDT [facility] Comment: [id number] Specimen Anatomical Collection Method Collection Time Receive d Time (Source) Location / / Volume Laterality Cervical Cells CERVIX UTERI 02/24/2020 9:30 AM 020 3:22 STRUCTURE / CDT PM CDT Unknown Faiza Reyes CNM LAB - BLOOD ORDERABLES Performing Organization Address City/[facility]/ZIP Code Phon e Number [address] [address] [place] [address] [address] [place] [address] [address] CHLAMYDIA TRACHOMATIS PCR (02/24/2020 9:30 AM CDT) [facility] Method Time Signature Specimen Vagina 02/24/2020 [place] Description 2:41 PM CDT [facility] Chlamydia Negative NEG^Negat 02/26/2020 INFECTIOUS Trachomatis PCR [place] 2:30 PM CDT [facility] Comment: Negative for C. trachomatis rRNA by hoffman scription mediated amplification. A negative result by computer support analyst media logan amplification does not preclude the [...] Code Phon e Number INFECTIOUS DISEASES [address] [place] [address] DIAGNOSTIC LABORATORY, [facility] [address] [place] [address] [facility] 180 INFECTIOUS DISEASES [address] [place] [address], A DI[facility]NOSTIC LABORATORY NEISSERIA GONORRHOEA PCR (02/24/2020 9:30 AM CDT) Analysis Performed At Patho logist Time Signature Specimen Vagina 02/24/2020 [place] Descrip 2:41 PM CDT [facility] N Gonorrhea Negative NEG^Negati 02/26/2020 INFECTIOUS PCR ve 2:30 PM CDT [facility] Comment: Negative for N. gonorrhoeae rRNA by hoffman scription mediated amplification. A negative result by computer support analyst media logan amplification does not preclude the [...] Code Phon e Number INFECTIOUS DISEASES [address] [place] [address] DIAGNOSTIC LABORATORY, [facility] [address] [place] [address] [facility] 180 INFECTIOUS DISEASES [address] [place] [address], A DIAGNOSTIC LABORATORY documented in this encounter [...] documented as of this encounter Care Teams Lockstitch Back Maker Relationship Specialty Start Date End Date Blank Lemos MD PCP - General Internal Medicine 04/22/[address] [place] [address] [place] [address] Blank Lemos MD Assigned PCP 04/25/[address] [facility] [facility] [address] [place], [place] [address] documented as of this encounter
--- OUTSIDE RECORDS SUMMARY | 2022-06-13 09:04 | XMS_ITS | Encounter Summary ---
:1990 Author Organization [place] Address [address] [place] [address] Care Team Providers Name Role Phone Blank [...] documented as of this encounter Care Teams Eligibility Technician Relationship Specialty Start Date End Date Blank Lemos MD PCP - General Internal Medicine 04/22/[address] [place] [address] KISHAN RENO [phone] Blank Lemos MD Assigned PCP 04/25/[address] [place] [address] K[place] R[place] [phone] documented as of this encounter
--- OUTSIDE RECORDS SUMMARY | 2022-06-13 09:04 | XMS_ITS | Encounter Summary ---
:1990 Author Organization [place] Address [facility] [place] [address] Care Team Providers Name Role Phone Blank Lemos MD Primary Care Provider Blank Lemos MD Unavailable Hardeep Cárdenas Unavailable Unavailable Encounter Details Date Type Department Care Team Description 01/03/2020 Virtual Visit [facility] Nevin Gilman ed anxiety disorder (Primary Dx); Mental Health & [facility] Moderate episode of recurrent major depr essive disorder (H) Addiction [place] [address] [address] [place] [address] (Work) [phone] Social History Tobacco Use Types Packs/Day Years [...] of this encounter Progress Notes Bessy Gilman, POTATO LOADER - 01/03/2020 2:30 PM CDT [facility] Primary Care: Integrated Behavioral Health [...] services. Mode of Communication: Video Conference via [employer] [place] As the provider I attest to compliance with applicable laws and regulations related to telemedicine. Behavioral Health Clinician Progress Note Patient Name: Rena Turner Service Type: Individual Session Start Time: 2:05pm Session End Time: 2:30pm Session Length: 16 - 37 Attendees: Client Visit Activities (Refresh list every visit): [facility] Only Diagnostic Assessment Date: 12/20/2019 Treatment Plan [...] minutes): No Interactive Complexity: No Crisis: No [facility] Patient: No Treatment Objective(s) Addressed in [...] to experience panic when thinking about it. [facility] and patient spent session processing through patient's anxieties and what steps patient can take in order to feel more control over her anxiety. [facility] encouraged patient to try utilizing strategies daily [...] date to begin behavior change Motivational Interviewing [place] Intervention: Expressed Empathy/Understanding, Supported Autonomy, Collaboration, Evocation, [...] time, however patient was encouraged to call [place] [phone] should there be a change in any [...] a follow up appointment with the clinic [facility] as needed. She was also given information about mental health symptoms andtreatment options . CD Recommendations: No indications of CD issues. Treatment plan to be completed at next session. ANTONIO Menjivar, [facility] documented in this encounter Plan of Treatment Not on filedocumented as of this encounter Visit Diagnoses Diagnosis Generalized anxiety disorder - Primary Moderate episode of recurrent major depr essive disorder (H) documented in this encounter Additional Health Concerns Assessment Noted Time PHQ-9 Depression Total Score: 15 12/08/2019 10:02 AM C DT documented as of this encounter Care Teams Professor Of Sociology Relationship Specialty Start Date End Date Blank Lemos, PCP - General Internal Medicine 04/22/[address] [place] [address] DR MÉNDEZ, KISHAN [phone] Blank Lemos, Assigned PCP 04/25/[address] [place] [address] KISHAN RENO [phone] Hardeep Cárdenas Personal Advocate & 06/17/1901/30 Liaison (PAL) documented as of this encounter
--- OUTSIDE RECORDS SUMMARY | 2022-06-13 09:04 | XMS_ITS | Encounter Summary ---
:1990 Author Organization [place] Address [address] [place] [address] Care Team Providers Name Role Phone Blank Lemos MD Primary Care Provider Blank Lemos MD Unavailable Encounter Details Date Type Department Care Team Description 02/03/2020 Orders Only [facility] Ble eding in early [place] [facility] [address] [place] [address] Social History Tobacco Use Types [...] (ABNORMAL) HCG quantitative (02/03/2020 10:56 AM CDT) [facility] Method Time Signature HCG Quantitative 13,231 0 - 5 02/04/2020 EXETER Serum (H) IU/L 12:58 PM CDT [facility] Specimen Anatomical Collection Method Collection Time Receive d Time (Source) Location / / Volume Laterality Blood specimen 02/03/2020 10:56 0 (specimen) AM CDT 10:57 AM CDT Faiza Reyes CNM LAB - BLOOD ORDERABLES Performing Organization Address City/State/ZIP Code Phon e Number [facility] [address] [place] [address] documented in this encounter Visit Diagnoses Diagnosis Bleeding in early Unspecified hemorrhage in early pregnanc y, unspecified as to episode of care documented in this encounter Additional Health Concerns Assessment Noted Time PHQ-9 Depression Total Score: 10 02/02/2020 8:23 AM CD T documented as of this encounter Care Teams Machine Silver Stripper Relationship Specialty Start Date End Date Blank Lemos MD PCP - General Internal Medicine 04/22/[address] [place] [address] [place] R[place] [phone] Blank Lemos MD Assigned PCP 04/25/[address] [place] [address] KISHAN RENO [phone] documented as of this encounter
--- OUTSIDE RECORDS SUMMARY | 2022-06-13 09:04 | XMS_ITS | Encounter Summary ---
:1990 Author Organization [place] Address [facility] [place] [address] Care Team Providers Name Role Phone Blank Lemos MD Primary Care Provider Blank eLmos MD Unavailable Hardeep Cárdenas Unavailable Unavailable Encounter Details Date Type Department Care Team Description 01/04/2020 Telephone [facility] Blank Oliveros MD [place] [address] [facility] [address] [facility] [place] [address] [address] [place] [address] [phone] Social History Tobacco Use Types Packs/Day Years [...] as of this encounter Care Teams Supervisor Paper Testing Relationship Specialty Start Date End Date Blank Lemos, PCP - General Internal Medicine 04/22/18 [facility] KISHAN RENO [phone] Blank Lemos, Assigned PCP 04/25/[address] [facility] [place] [address] Hardeep Cárdenas Personal Advocate & 06/17/1901/30 Liaison (PAL) documented as of this encounter
--- OUTSIDE RECORDS SUMMARY | 2022-06-13 09:04 | XMS_ITS | Encounter Summary ---
:1990 Author Organization [place] Address [facility] [place] [address] Care Team Providers Name Role Phone Blank Lemos MD Primary Care Provider Blank Lemos MD Unavailable Hardeep Cárdenas Unavailable Unavailable Encounter Details Date Type Department Care Team Description 12/13/2019 Virtual Visit [facility] Nevin Gilman ed anxiety Mental Health & MAGGI DohertySW disorder (Primary Dx) Addiction [facility] [address] [facility] [address] [place] [address] [address] [place] [address] (Work) [phone] Social History Tobacco Use Types Packs/Day Years [...] Gilman LICSW - 12/13/2019 2:00 PM CDT [facility] Primary Care: Integrated Behavioral Health December 13, [...] I will have full access to your [place] medical record during this entire phone call. [...] been obtained for this service by care meat team lead: yes. Behavioral Health Clinician Progress Note Patient Name: Rena Turner Service Type: Phone Visit Service Location: Phone call (patient / identified alcantara support person reached) Session Start Time: 2:05pm Session End Time: 2:30pm Session Length: 16 - 37 Attendees: Client Visit Activities (Refresh list every visit): [facility] Only Diagnostic Assessment Date: Next Session Treatment [...] minutes): No Interactive Complexity: No Crisis: No [facility] Patient: No Treatment Objective(s) Addressed in [...] PTSD Symptom Management Current Stressors / Issues: [facility] introduced self and role to patient. Patient [...] date to begin behavior change Motivational Interviewing NM Intervention: Expressed Empathy/Understanding, Supported Autonomy, Collaboration, Evocation, [...] time, however patient was encouraged to call [place] [phone] should there be a change in any [...] follow up appointment with the clinic [facility] as needed. She was also given information about mental health symptoms andtreatment options . CD Recommendations: No indications of CD issues. DA [facility] ANTONIO Menjivar, [facility] documented in this encounter Plan of Treatment Not on filedocumented as of this encounter Visit Diagnoses Diagnosis Generalized anxiety disorder - Primary documented in this encounter Additional Health Concerns Assessment Noted Time PHQ-9 Depression Total Score: 15 12/08/2019 10:02 AM C DT documented as of this encounter Care Teams Rolling Mill Plugger Relationship Specialty Start Date End Date Blank Lemos, PCP - General Internal Medicine 04/22[facility]18 [facility] [place] [address] Blank Lemos, Assigned PCP 04/25/18 [facility] [place] [address] Hardeep Cárdenas Personal Advocate & 06/17/1901/30 Liaison (PAL) documented as of this encounter
--- OUTSIDE RECORDS SUMMARY | 2022-06-13 09:04 | XMS_ITS | Encounter Summary ---
:1990 Author Organization [place] Address [address] [place] [address] Care Team Providers Name Role Phone Blank Lemos MD Primary Care Provider Blank Lemos MD Unavailable Hardeep Cárdenas Unavailable Unavailable Reason for Visit Reason Comments Urgent Care Ear Problem Ear pain in both ears for 2 months. Patient finished antibiotic and it is still not better. Encounter Details Date Type Department Care Team Description 07/26/2019 Office Visit [facility] Flaskerud, Middle ear effusion, Urgent Care Dev Wiggins, KAILEE bilateral (Primary Dx) [address] [place] [address] [address] [id number] [place] [address] Social History Tobacco Use [...] Comments Blood Pressure 104/72 07/26/2019 5:23 PM SCIENTIST IMMUNOLOGY Pulse 56 07/26/2019 5:23 PM SCIENTIST IMMUNOLOGY Temperature 36.9 ??C (98.5 ??F) 07/26/2019 5:23 PM SCIENTIST IMMUNOLOGY Respiratory Rate - - Oxygen Saturation 98% 07/26/2019 5:23 PM SCIENTIST IMMUNOLOGY Inhaled Oxygen Concentration - - Weight - [...] on yoursymptoms.?? Date Last Reviewed: 05/10/2016 ?? [id number] [employer]. [address] [place] [address], [place] [address]. All rights reserved. This information is not intended as a substitute for professional medical care. Always follow your healthcare professional's instructions. [facility] documented in this encounter Progress Notes Rosalie [...] primary care provider. See orders in Epic [facility] documented in this encounter Nursing Notes Georgie Kim CMA - 07/26/2019 4:25 PM CST Chief Complaint Patient presents with ??? Urgent Care ??? Ear Problem Ear pain in both ears for 2 months. Patient finished antibiotic and it is still not better. S NIA KIM [facility] IMMUNOLOG[facility] documented in this encounter Plan of Treatment Not on filedocumented as of this encounter Visit Diagnoses Diagnosis Middle ear effusion, bilateral - Primary documented in this encounter Additional Health Concerns Assessment Noted Time PHQ-9 Depression Total Score: 4 09/22/2018 3:08 PM SCIENTIST IMMUNOLOGY documented as of this encounter Care Teams Clinical Program Director Relationship Specialty Start Date End Date Blank Lemos, PCP - General Internal Medicine 04/22/[address] [place] [address] [address] [place], [place] [phone] Blank Lemos, Assigned PCP 04/25/18 [facility] [place] [address] Hardeep Cárdenas Personal Advocate & 06/17/1901/30 Liaison (PAL) documented as of this encounter
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
--- OUTSIDE RECORDS SUMMARY | 2022-06-13 09:04 | XMS_ITS | Encounter Summary ---
:1990 Author Organization [place] Address [facility] [place] [address] Care Team Providers Name Role Phone Blank Lemos MD Primary Care Provider Blank Lemos MD Unavailable Hardeep Cárdenas Unavailable Unavailable Encounter Details Date Type Department Care Team Description 12/20/2019 Virtual Visit [facility] Nevin Gilman ed anxiety disorder (Primary Dx); Mental Health & [facility] Moderate episode of recurrent major depr essive disorder (H) Addiction [place] [address] [address] [place] [address] (Work) [phone] Social History Tobacco Use Types Packs/Day Years [...] Gilman, ANTONIO - 12/20/2019 2:00 PM CDT [facility] Primary Care: Integrated Behavioral Health Manager Product Management Name: Bessy Gilman Credentials: [facility] PATIENT'S NAME: Rena Turner PREFERRED NAME: Rena PREFERRED PRONOUNS: : 1990 ACCT. NUMBER: [id number] DATE OF SERVICE: 12/20/19 START TIME: 2:00pm END TIME: 2:41pm PREFERRED PHONE: [phone] May we leave a program related message: [...] services. Mode of Communication: Video Conference via Phanfare As the provider I attest to compliance [...] History: Patient reported they grew up in [place], [place] and moved to [place] 7 years ago. They were raised by [...] Patient identified their preferred language to be Bruneian. Patient reported they does not need the assistance of an scale installer or other support involved in therapy. Patient [...] symptoms were todevelop. The patient has a [facility] Primary Care Provider, who is named Blank [...] not present. Safety Assessment: Current Safety Concerns: [place] Suicide Severity Rating Scale (Lifetime/Recent) [place] Suicide Severity Rating (Lifetime/Recent) 12/21/2019 12/21/2019 1. [...] is not confined to features of an [place] I disorder. E. The anxiety, worry, or [...] increase in mood stability. 4. Resources/Service Plan: Heavy Equipment Supervisor services are not indicated. Modifications to assist [...] type: Mental Health Staff Name/Credentials: ANTONIO Menjivar, [facility] December 20, 2019 documented in this encounter Plan of Treatment Not on filedocumented as of this encounter Visit Diagnoses Diagnosis Generalized anxiety disorder - Primary Moderate episode of recurrent major depr essive disorder (H) documented in this encounter Additional Health Concerns Assessment Noted Time PHQ-9 Depression Total Score: 15 12/08/2019 10:02 AM C DT documented as of this encounter Care Teams Oracle Ebs Architect Relationship Specialty Start Date End Date Blank Lemos, PCP - General Internal Medicine 04/22/18 [facility] [place] [phone] Blank Lemos, Assigned PCP 04/25/18 [facility] [place] [phone] Hardeep Cárdenas Personal Advocate & 06/17/1901/30 Liaison (PAL) documented as of this encounter
--- OUTSIDE RECORDS SUMMARY | 2022-06-13 09:04 | XMS_ITS | Encounter Summary ---
:1990 Author Organization [place] Address [address] [place] [address] Care Team Providers Name Role Phone Blank Lemos MD Primary Care Provider Blank Lemos MD Unavailable Reason for Visit Reason Comments Care New Nurse Telephone Visit Encounter Details Date Type Department Care Team Description 02/07/2020 Office [facility] er for Visit Clinic Dev supervision of normal [address] [place] [address] first preg manny in [facility] [address] first trimester [address] (Primary [...] If you answered Yes, is this for latter-day reasons?: No Does anyone in your home [...] you have any allergies to drugs or hvry-zaf-gpooobn medications?: (!) Yes(doxycycline) Allergies: Dust Mites, Aspartame, [...] bleed: (!) Yes(nausea, fatigue, breast tenderness, aircraft hydraulic equipment mechanic mping, spotting) Current medications, including dqkz-gsw-ywjkahi medications, you are using? (If not applicable answer none): see med list. weaning off of topamax Will the patient be 35 years old or older at the time of delivery?: No Has the patient, baby's father or anyone in either family had: Thalassemia (Spanish, Ugandan, Mediterranean or background only) and an MCV result less than 80?: (P) No Neural tube defect such as meningomyelocele, spina bifida or anencephaly?: (P) No Congenital heart defect?: (P) No Down's Syndrome?: (P) No Wilber-Sachs disease (Advent, Cajun, Georgian-Moscow)?: (P) No Sickle cell disease or trait [...] type and screen (02/20/2020 9:09 AM CDT) [facility] Method Time Signature ABO O 02/20/2020 [place] 5:05 PM [facility] RH(D) Pos [facility] Antibody Neg 02/20/2020 [place] Screen 5:05 PM [facility] Test Valid [place] 02/20/2020 [place] Only At [facility] 5:02 PM T [facility]OSPITAL Specimen 02/23/2020 02/20/2020 [place] Expires 5:02 PM [facility] Specimen Anatomical Collection Method Collection Time Receive d Time (Source) Location / / Volume Laterality Blood specimen 02/20/2020 9:09 AM 020 9:10 (specimen) CDT AM CDT Faiza Reyes CNM LAB - BLOOD BANK TEST ORDER Performing Organization Address City/State/ZIP Code Phon e Number [facility] [address], [place] [address] [facility] [address] [place], [place] [address] [place] [address] Urine Culture Aerobic Bacterial (02/20/2020 9:08 AM CDT) Patholo gist Method Time Signature Specimen Midstream INFECTIOUS Description Urine [facility] Culture Micro <10,000 colonies/mL 02/21/2020 [facility] TI[facility] mixed urogenital andre 1:24 PM CDT [facility] DIAGNOSTIC LABORATORY Specimen (Source) Anatomical Collection Method Collection Time Re ceived Time Location / / Volume Laterality Examination of 02/20/2020 9:08 02/20/2020 9:13 midstream urine AM CDT AM CDT specimen (procedure) Faiza Reyes CNM LAB - MICRO GENERAL ORDERABL ES Performing Organization Address City/[facility]/ZIP Code Phon e Number INFECTIOUS DISEASES [address] [place] [address] DIAGNOSTIC LABORATORY, [facility] INFECTIOUS DISEASES [address] [place] [address], A DIAGNOSTIC LABORATORY Treponema Abs w Reflex to RPR and Titer (02/20/2020 9:08 AM CDT) [facility] Dynamic Social Network Analysis Method Time Signature Treponema Nonreactive NR^Nonrea 02/21/2020 [facility] ctive 9:37 AM CDT [facility] Comment: Methodology Change: Test performed on DiaSorin Liaison XL by Treponema pallidum Total Antibodies Assay as of . Specimen Anatomical Collection Method Collection Time Receive d Time (Source) Location / / Volume Laterality Blood specimen 02/20/2020 9:08 AM 020 9:13 (specimen) CDT AM CDT Faiza Reyes CNM LAB - BLOOD ORDERABLES Performing Organization Address City/[facility]/ZIP Code Phon e Number [facility] [address] [place] [address] [facility] Rubella Antibody IgG Quantitative (02/20/2020 9:08 AM CDT) [facility] Signature Rubella Antibody 20 IU/mL 02/21/2020 [place] O F IgG Quantitative 11:12 AM CDT [facility] Comment: Positive. ??Suggests previous exposure o r immunization and probable immunity Reference Range: ??Unvaccinated Negative 0-7 IU/mL Vaccinated or previous exposure Positive 10 IU/ml or greater Specimen Anatomical Collection Method Collection Time Receive d Time (Source) Location / / Volume Laterality Blood specimen 02/20/2020 9:08 AM 020 9:13 (specimen) CDT AM CDT Faiza FARMER LAB - BLOOD ORDERABLES Performing Organization Address City/[facility]/ZIP Code Phon e Number [address] HIV Antigen Antibody Combo (02/20/2020 9:08 AM CDT) [facility] Method Time Signature HIV Antigen Nonreactive NR^Nonrea 02/21/2020 [place] OF Antibody ctive 9:57 AM CDT [facility] Comment: HIV-1 p24 Ag & HIV-1/HIV-2 Ab N ot Detected Specimen Anatomical Collection Method Collection Time Receive d Time (Source) Location / / Volume Laterality Blood specimen 02/20/2020 9:08 AM 020 9:13 (specimen) CDT AM CDT Faiza FARMER LAB - BLOOD ORDERABLES Performing Organization Address City/[facility]/ZIP Code Phon e Number [address] (ABNORMAL) CBC with platelets (02/20/2020 9:08 AM CDT) [facility] Method Time Signature WBC 11.3 (H) 4.0 - 11.0 02/20/2020 [facility] 10e9/L 10:39 AM CDT [facility] RBC Count 4.20 3.8 - 5.2 02/20/2020 [facility] 10e12/L 10:39 AM CDT [facility] Hemoglobin 12.9 11.7 - 02/20/2020 [facility] 15.7 g/dL 10:39 AM CDT [facility] Hematocrit 39.7 35.0 - 02/20/2020 [facility] 47.0 % 10:39 AM CDT [facility] MCV 95 78 - 100 02/20/2020 [place] fl 10:39 AM CDT [facility] MCH 30.7 26.5 - 02/20/2020 [place] 33.0 pg 10:39 AM CDT [facility] MCHC 32.5 31.5 - 02/20/2020 [place] 36.5 g/dL 10:39 AM CDT [facility] RDW 13.4 10.0 - 02/20/2020 [place] 15.0 % 10:39 AM CDT [facility] Platelet Count 350 150 - 450 02/20/2020 [place] 10e9/L 10:39 AM CDT [facility] Specimen Anatomical Collection Method Collection Time Receive d Time (Source) Location / / Volume Laterality Blood specimen 02/20/2020 9:08 AM 020 9:13 (specimen) CDT AM CDT Faiza Reyes CNM LAB - BLOOD ORDERABLES Performing Organization Address City/[facility]/ZIP Code Phon e Number [facility] [address] [place], [place] [address] [address] Hepatitis B surface antigen (02/20/2020 9:08 AM CDT) [facility] gist Method Time Signature Hep B Surface Nonreactive NR^Nonrea 02/21/2020 [facility] 9:57 AM CDT [facility] Specimen Anatomical Collection Method Collection Time Receive d Time (Source) Location / / Volume Laterality Blood specimen 02/20/2020 9:08 AM 020 9:13 (specimen) CDT AM CDT Faiza Reyes CNM LAB - BLOOD ORDERABLES Performing Organization Address City/State/ZIP Code Phon e Number [facility] [address] [place] [address] [facility] documented in this encounter Visit Diagnoses Diagnosis Encounter for supervision of normal firs t in first trimester - Primary Supervision of normal first documented in this encounter Additional Health Concerns Assessment Noted Time PHQ-9 Depression Total Score: 10 02/02/2020 8:23 AM CD T documented as of this encounter Care Teams Maintenance Mechanic Relationship Specialty Start Date End Date Blank Lemos MD PCP - General Internal Medicine 04/22/[address] [place] [address] [address] [place] [phone] Blank Lemos MD Assigned PCP 04/25/[address] [place] [address] [place] [phone] documented as of this encounter
--- OUTSIDE RECORDS SUMMARY | 2022-06-13 09:04 | XMS_ITS | Encounter Summary ---
:1990 Author Organization [place] Address [address] [place] [address] Care Team Providers Name Role Phone Blank [...] documented as of this encounter Care Teams Snuff Grinder And Screener Relationship Specialty Start Date End Date Blank Lemos MD PCP - General Internal Medicine 04/22/[address] [place] [address] [place] R[place] [phone] Blank Lemos MD Assigned PCP 04/25/[address] [place] [address] [place] [phone] documented as of this encounter
--- OUTSIDE RECORDS SUMMARY | 2022-06-13 09:04 | XMS_ITS | Encounter Summary ---
:1990 Author Organization [place] Address [facility] [place] [address] Care Team Providers Name Role Phone Blank Lemos MD Primary Care Provider Blank Lemos MD Unavailable Reason for Visit Reason Onset Date Comments Results 02/08/2020 Encounter Details Date Type Department Care Team Description 02/08/2020 Telephone [facility] Women's Ryann poon, Faiza Rodriguez, YARELI Results Clinic [place] [address] [place] [address] [facility] [address] [place] [address] [phone] Social History Tobacco Use Types Packs/Day Years [...] documented as of this encounter Care Teams E Learning Coordinator Relationship Specialty Start Date End Date Blank Lemos MD PCP - General Internal Medicine 04/22/[address] [place] [address] [place] [phone] Blank Lemos MD Assigned PCP 04/25/[address] [place] [address] [place] [address] documented as of this encounter
--- OUTSIDE RECORDS SUMMARY | 2022-06-13 09:04 | XMS_ITS | Encounter Summary ---
:1990 Author Organization [place] Address [facility] [place] [address] Care Team Providers Name Role Phone Blank Lemos MD Primary Care Provider Blank Lemos MD Unavailable Hardeep Cárdenas Unavailable Unavailable Encounter Details Date Type Department Care Team Description 01/05/2020 Virtual Visit [facility] Blank Lemos anxiety disorder (Primary Dx); Clinic Dev Camp MD Insomnia, unspecified type [address] [facility] [address] [place] [address] [place] [address] Social History Tobacco Use [...] weeks. Take Blank hodge MD Internal Medicine/Pediatrics [facility] documented in this encounter Progress [...] I will have full access to your [place] medical record during this entire phone call. [...] been obtained for this service by care security team lead: Yes HPI Medication Followup of ej ?? [...] per week (better than none). Working with [employer]. Has left house a few times - today went to [facility] for the first time - big step. [...] 9 min Blank Lemos MD Internal Medicine/Pediatrics [facility] Sosa Whitehead - 01/05/2020 2:55 PM CDT Left message for patient to call back to schedule video appt 02/01. Sosa Whitehead, Power Barker Operator documented in this encounter Plan of Treatment Not on filedocumented as of this encounter Visit Diagnoses Diagnosis Generalized anxiety disorder - Primary Insomnia, unspecified type documented in this encounter Additional Health Concerns Assessment Noted Time PHQ-9 Depression Total Score: 15 12/08/2019 10:02 AM C DT documented as of this encounter Care Teams Gas Usage Meter Clerk Relationship Specialty Start Date End Date Blank Lemos, PCP - General Internal Medicine 04/22/18 [facility] K[place] [phone] Blank Lemos, Assigned PCP 04/25/18 [facility] [place] [address] Hardeep Cárdenas Personal Advocate & 06/17/1901/30 Liaison (PAL) documented as of this encounter
--- OUTSIDE RECORDS SUMMARY | 2022-06-13 09:04 | XMS_ITS | Encounter Summary ---
:1990 Author Organization [place] Address [address] [place] [address] Care Team Providers Name Role Phone Blank [...] documented as of this encounter Care Teams Event Representative Relationship Specialty Start Date End Date Blank Lemos, PCP - General Internal Medicine 04/22/[address] [place] [address] [place] [address] Blank Lemos, Assigned PCP 04/25/18 [facility] [place] [address] Hardeep Cárdenas Personal Advocate & 06/17/1901/30 Liaison (PAL) documented as of this encounter
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
--- OUTSIDE RECORDS SUMMARY | 2022-06-13 09:04 | XMS_ITS | Encounter Summary ---
:1990 Author Organization [place] Address [address] [place] [address] Care Team Providers Name Role Phone Blank [...] documented as of this encounter Care Teams Component Design Engineer Relationship Specialty Start Date End Date Blank Lemos MD PCP - General Internal Medicine 04/22/[address] [place] [address] [place] [address] Blank Lemos MD Assigned PCP 04/25/[address] [place] [address] [place] [address] documented as of this encounter
--- OUTSIDE RECORDS SUMMARY | 2022-06-13 09:04 | XMS_ITS | Encounter Summary ---
:1990 Author Organization [place] Address [facility] [place] [address] Care Team Providers Name Role Phone Blank Lemos MD Primary Care Provider Blank Lemos MD Unavailable Reason for Visit Reason Onset Date Comments Depression 02/02/2020 Anxiety 02/02/2020 Encounter Details Date Type Department Care Team Description 02/02/2020 Virtual Visit [facility] Blank Lemos Migraine without aura and without status migrainosus, not intractable (Primary Dx); Clinic Dev Camp MD Moderate episode of recurrent major depr essive disorder (H); [address] [facility] alized anxiety disorder; [facility] Bipolar I disorder (H) [address] [place] [address] [place] [phone] Social History Tobacco Use Types Packs/Day Years [...] good luck! Blank Lemos MD Internal Medicine/Pediatrics [facility] documented in this encounter Progress Notes Blank [...] her first . Took a break from [facility] for therapy, due to lost insurance, but not has insurance again and will contact [facility] to restart. Social History Tobacco Use [...] well-groomed. Diagnostic Test Results: Labs reviewed in [facility] Assessment & Plan 1. Migraine without [...] good luck! Blank Lemos MD Internal Medicine/Pediatrics [facility] Return for appointment already scheduled with OB. Blank Lemos MD [facility] Video-Visit Details Type of service: Video Visit Video End Time:8:42am Originating Location (pt. Location): Home Distant Location (provider location): [facility] Platform used for Video Visit: [facility] Return for appointment already scheduled with [...] documented as of this encounter Care Teams Incubator Operator Relationship Specialty Start Date End Date Blank Lemos MD PCP - General Internal Medicine 04/22/[address] [place] [address] [place] [address] Blank Lemos MD Assigned PCP 04/25/[address] [place] [address] [place] [id number] documented as of this encounter
--- OUTSIDE RECORDS SUMMARY | 2022-06-13 09:04 | XMS_ITS | Encounter Summary ---
:1990 Author Organization [place] Address [facility] [place] [address] Care Team Providers Name Role Phone Blank Lemos MD Primary Care Provider Blank Lemos MD Unavailable Reason for Visit Diagnostic Imaging Ultrasound (Routine) - Closed Specialty Diagnoses / Procedures Referred By Contact Refer red To Contact Diagnoses Bleeding in early Faiza Reyes CNM Procedures US OB <14 Weeks w Transvaginal Single US OB < 14 Weeks Single [address] [facility] [facility] [place] [place] [address] Referral ID Status Reason Start Date Expiration Date Visits Requ ested Visits Authorized [id number] Closed 02/01/2020 01/31/2021 1 1 Encounter Details Date Type Department Care Team Description 02/20/2020 Orders Only [facility] Ble eding in early [place] [address] [facility] [address] [place] [address] Social History Tobacco Use [...] Dr. Lora Ward MD Obstetrics and Gynecology [facility] ? Kely and Dev ?? Narrative 02/22/2020 7:31 PM CDT 02/20/2020 11:40 AM ? [facility] Obstetrics & Gynecology [address] [place] [address] ULTRASOUND - OB < 14 Weeks ?? Referring Provider: Fazia Reyes CNM ?? INDICATIONS FOR ULTRASOUND: OB [...] documented as of this encounter Care Teams Material Stockkeeper Yard Relationship Specialty Start Date End Date Blank Lemos MD PCP - General Internal Medicine 04/22/[address] [place] [address] [place] [phone] Blank Lemos MD Assigned PCP 04/25/18 [address] [facility] [place] [phone] documented as of this encounter
--- OUTSIDE RECORDS SUMMARY | 2022-06-13 09:04 | XMS_ITS | Encounter Summary ---
:1990 Author Organization [place] Address [facility] [place] [address] Care Team Providers Name Role Phone Blnak Lemos MD Primary Care Provider Blank Lemos MD Unavailable Encounter Details Date Type Department Care Team Description 02/20/2020 [facility] Only [facility] linda for supervision [facility] y of normal first [address] [place] in [place] [address] Social History Tobacco Use Types Packs/Day [...] type and screen (02/20/2020 9:09 AM CDT) [facility] Method Time Signature ABO O 02/20/2020 [place] 5:05 PM T [facility] RH(D) Pos [facility] Antibody Neg 02/20/2020 [place] Screen 5:05 PM T [facility] Test Valid [place] 02/20/2020 [place] Only At [facility] 5:02 PM CDT [facility] Specimen 02/23/2020 02/20/2020 [facility] Expires 5:02 PM T [facility] Specimen Anatomical Collection Method Collection Time Receive d Time (Source) Location / / Volume Laterality Blood specimen 02/20/2020 9:09 AM 020 9:10 (specimen) CDT AM CDT Faiza [facility] - BLOOD BANK TEST ORDER Performing Organization Address City/[facility]/ZIP Code Phon e Number [facility] [address] [place], [place] [address] [facility] [address] [place], [place] [address] [place] [address] Hepatitis B surface antigen (02/20/2020 9:08 AM CDT) [facility] Method Time Signature Hep B Surface Nonreactive NR^Nonrea 02/21/2020 [facility] 9:57 AM CDT [facility] Specimen Anatomical Collection Method Collection Time Receive d Time (Source) Location / / Volume Laterality Blood specimen 02/20/2020 9:08 AM 020 9:13 (specimen) CDT AM CDT Faiza [facility] - BLOOD ORDERABLES Performing Organization Address City/State/ZIP Code Phon e Number [id number] [place] [address] (ABNORMAL) CBC with platelets (02/20/2020 9:08 AM CDT) [facility] Method Time Signature WBC 11.3 (H) 4.0 - 11.0 02/20/2020 [facility] 10e9/L 10:39 AM CDT [facility] RBC Count 4.20 3.8 - 5.2 02/20/2020 [facility] 10e12/L 10:39 AM CDT [facility] Hemoglobin 12.9 11.7 - 02/20/2020 [facility] 15.7 g/dL 10:39 AM CDT [facility] Hematocrit 39.7 35.0 - 02/20/2020 [facility] 47.0 % 10:39 AM CDT [facility] MCV 95 78 - 100 02/20/2020 [facility] [place] 10:39 AM CDT [facility] MCH 30.7 26.5 - 02/20/2020 [facility] 33.0 pg 10:39 AM CDT [facility] MCHC 32.5 31.5 - 02/20/2020 [place] 36.5 g/dL 10:39 AM CDT [facility] RDW 13.4 10.0 - 02/20/2020 [place] 15.0 % 10:39 AM CDT [facility] Platelet Count 350 150 - 450 02/20/2020 [place] 10e9/L 10:39 AM CDT [facility] Specimen Anatomical Collection Method Collection Time Receive d Time (Source) Location / / Volume Laterality Blood specimen 02/20/2020 9:08 AM 020 9:13 (specimen) CDT AM CDT Faiza Reyes CNM LAB - BLOOD ORDERABLES Performing Organization Address City/State/ZIP Code Phon e Number [facility] [address] [place], [place] [address] [address] HIV Antigen Antibody Combo (02/20/2020 9:08 AM CDT) Patholo gist Method Time Signature HIV Antigen Nonreactive NR^Nonrea 02/21/2020 [facility] Antibody ctive 9:57 AM CDT [facility] Comment: HIV-1 p24 Ag & HIV-1/HIV-2 Ab N ot Detected Specimen Anatomical Collection Method Collection Time Receive d Time (Source) Location / / Volume Laterality Blood specimen 02/20/2020 9:08 AM 020 9:13 (specimen) CDT AM CDT Faiza Reyes CNM LAB - BLOOD ORDERABLES Performing Organization Address City/State/ZIP Code Phon e Number [facility] [address] [place] [address] [facility] Rubella Antibody IgG Quantitative (02/20/2020 9:08 AM CDT) Analysis Performed At Patho logist Time Signature Rubella Antibody 20 IU/mL 02/21/2020 [place] [facility] IgG Quantitative 11:12 AM CDT [...] LAB - BLOOD ORDERABLES Performing Organization Address City/[facility]/ZIP Code Phon e Number [address] [address] [facility] Treponema Abs w Reflex to RPR and Titer (02/20/2020 9:08 AM CDT) [facility] Method Time Signature Treponema Nonreactive NR^Nonrea 02/21/2020 [facility] ctive 9:37 AM CDT [facility] Comment: Methodology Change: Test performed on e DiaSorin Liaison XL by Treponema pallidum Total Antibodies Assay as of . Specimen Anatomical Collection Method Collection Time Receive d Time (Source) Location / / Volume Laterality Blood specimen 02/20/2020 9:08 AM 020 9:13 (specimen) CDT AM CDT Faiza [facility] - BLOOD ORDERABLES Performing Organization Address City/[facility]/ZIP Code Phon e Number [address] [address] [facility] Urine Culture Aerobic Bacterial (02/20/2020 9:08 AM CDT) [facility] Method Time Signature Specimen Midstream INFECTIOUS [...] MICRO GENERAL ORDERABL ES Performing Organization Address City/[facility]/ZIP Code Phon e Number INFECTIOUS DISEASES [address] [place] [address] DI[facility], [facility] INFECTIOUS DISEASES [address] [place] [address], [place] [facility] documented in this encounter Visit Diagnoses Diagnosis Encounter for supervision of normal firs t in first trimester Supervision of normal first documented in this encounter Additional Health Concerns Assessment Noted Time PHQ-9 Depression Total Score: 10 02/02/2020 8:23 AM CD T documented as of this encounter Care Teams Algology Teacher Relationship Specialty Start Date End Date Blank Lemos MD PCP - General Internal Medicine 04/22/18 [address] [facility] [place] [phone] Blank Lemos MD Assigned PCP 04/25/18 [address] [facility] [place] [phone] documented as of this encounter
--- OUTSIDE RECORDS SUMMARY | 2022-06-13 09:04 | XMS_ITS | Encounter Summary ---
:1990 Author Organization [place] Address [facility] [place] [address] Care Team Providers Name Role Phone Blank Lemos MD Primary Care Provider Blank Lemos MD Unavailable Hardeep Cárdenas Unavailable Unavailable Reason for Referral Mental Health Outpatient (Routine) - Closed Specialty Diagnoses / Procedures Referred By Contact Refer red To Contact Diagnoses Generalized anxiety disorder Bipolar I disorder (H) Blank Lemos MD [address] [place] [address] [place] [address] Referral ID Status Reason Start Date Expiration Date Visits Requ ested Visits Authorized [id number] Closed 12/08/2019 12/07/2020 1 1 Scheduling Instructions ken please - patient with severe social anxiety - unable to leave house. Reason for Visit Reason Onset Date Comments Telephone 12/08/2019 Anxiety 12/08/2019 Encounter Details Date Type Department Care Team Description 12/08/2019 Virtual Visit [facility] Blank Lemos Insomnia , unspecified type (Primary Dx); Clinic Dev Camp MD Generalized anxiety disorder; [address] [place] [address] Bipol ar I disorder (H); [facility] Migraine without aura and without status migrainosus, not intractable [address] [place] [address] [place] [address] Social History Tobacco Use [...] Trazodone to help with sleep. Someone from [facility] will be reaching out to you soon. Letter should be available in [place]. I will have someone reach out to you to get a video visit scheduled in about a month. Take care! Blank Lemos MD Internal Medicine/Pediatrics [facility] documented in this encounter Progress [...] obtained for this service by 1 care horses or mules teamster: yes. See the scanned image in the medical record. Rena Turner complains of Chief Complaint Patient presents with ? Anxiety I have reviewed and updated the patient's Past Medical History, Social History, Family History and Medication List. 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 I was just called back to work to start next week. Since COVID-19 has begun my anxiety has skyrocketed being in public. I think this is something that may pass in the future, but I was wondering if I could get a Drs note from you to stay home for the time being, and possibly a referral to the behavioral clinic in [place] (if they are open right now). I [...] - Adult; Outpatient Treatment; Individual/Couples/Family/Group Therapy/Health Psychology; [facility]: [facility] ; We will contact you to schedule the appointment or please call with any questions (F31.9) Bipolar I disorder (H) Comment: see above Plan: escitalopram (LEXAPRO) 20 MG tablet, MENTAL HEALTH REFERRAL - Adult; Outpatient Treatment; Individual/Couples/Family/Group Therapy/Health Psychology; [facility]: [facility] ; We will contact you [...] Name Type Priority Associated Diagnoses Order S [facility] REFERRAL - Referral Routine Generalized anxi ety Ordered: 12/08/2019 Adult; Outpatient disorder Treatment; Bipolar I disorder (H) Individual/Couples/Famil y/Group Therapy/Health Psychology; [facility]: [facility] ; We will contact you [...] as of this encounter Care Teams Manager Mission Relationship Specialty Start Date End Date Blank Lemos, PCP - General Internal Medicine 04/22/[address] [place] [address] [place] [address] Blank Lemos, Assigned PCP 04/25/18 [facility] [place] [address] Hardeep Cárdenas Personal Advocate & 06/17/1901/30 Liaison (PAL) documented as of this encounter
--- OUTSIDE RECORDS SUMMARY | 2022-06-13 09:04 | XMS_ITS | Encounter Summary ---
:1990 Author Organization [place] Address [facility] [place] [address] Care Team Providers Name Role Phone Blank Lemos MD Primary Care Provider Blank Lemos MD Unavailable Hardeep Cárdenas Unavailable Unavailable Encounter Details Date Type Department Care Team Description 12/08/2019 Telephone [facility] LukeAshly, Health & Addiction [facility] [address] [place] [address] [address] [place] [address] Social History Tobacco Use Types [...] - 12/08/2019 10:48 AM CDT Phone Encounter [facility] attempted to reach patient, by PCP request. [...] documented as of this encounter Care Teams Java Developer Analyst Relationship Specialty Start Date End Date Blank Lemos, PCP - General Internal Medicine 04/22/18 [facility] [place] [address] Blank Lemos, Assigned PCP 04/25/18 [facility] [place] [address] Hardeep Cárdenas Personal Advocate & 06/17/1901/30 Liaison (PAL) documented as of this encounter
--- OUTSIDE RECORDS SUMMARY | 2022-06-13 09:04 | XMS_ITS | Encounter Summary ---
:1990 Author Organization [place] Address [address] [place] [address] Care Team Providers Name Role Phone Blank [...] documented as of this encounter Care Teams Rouge Sifter Relationship Specialty Start Date End Date Blank Lemos MD PCP - General Internal Medicine 04/22/[address] [place] [address] [place] [address] Blank Lemos MD Assigned PCP 04/25/[address] [place] [address] [place] [address] documented as of this encounter
--- OUTSIDE RECORDS SUMMARY | 2022-06-13 09:04 | XMS_ITS | Encounter Summary ---
:1990 Author Organization [place] Address [address] [place] [address] Care Team Providers Name Role Phone Blank [...] Depression Total Score: 4 09/22/2018 3:08 PM INTERNATIONAL LOGISTICS COORDINATOR documented as of this encounter Care Teams Channeler Outsole Relationship Specialty Start Date End Date Blank Lemos, PCP - General Internal Medicine 04/22/18 [facility] [address] [place], [place] [address] Blank Lemos, Assigned PCP 04/25/18 MD [facility] [place] [address] Hardeep Cárdenas Personal Advocate & 06/17/1901/30 Liaison (PAL) documented as of this encounter
--- OUTSIDE RECORDS SUMMARY | 2022-06-13 09:04 | XMS_ITS | Encounter Summary ---
:1990 Author Organization [place] Address [facility] [place] [address] Care Team Providers Name Role Phone Blank Lemos MD Primary Care Provider Blank Lemos MD Unavailable Hardeep Cárdenas Unavailable Unavailable Encounter Details Date Type Department Care Team Description 01/19/2020 Virtual Visit [facility] Nevin Gilman ed anxiety disorder (Primary Dx); Mental Health & [facility] Moderate episode of recurrent major depr essive disorder (H) Addiction [place] [address] [address] [place] [address] (Work) [phone] Social History Tobacco Use Types Packs/Day Years [...] 1:00 PM CDT Patient reported to [facility] that she has no insurance and needs to put a pause on services. [facility] informedpatient that she can reach back out via calling the clinic or [email or web address] to schedule again when able. 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
--- OUTSIDE RECORDS SUMMARY | 2022-06-13 09:04 | XMS_ITS | Encounter Summary ---
:1990 Author Organization [place] Address [facility] [place] [address] Care Team Providers Name Role Phone Blank Lemos MD Primary Care Provider Blank Lemos MD Unavailable Hardeep Cárdenas Unavailable Unavailable Reason for Visit Reason Comments Medication Refill Encounter Details Date Type Department Care Team Description 09/11/2019 Refill [facility] Blank Oliveros MD Medication Refill Dev [address] [facility] 3[address] [facility] [place] [address] [address] [place] [address] [phone] Social History Tobacco Use Types Packs/Day Years [...] ALEJANDRO MA on 09/12/2019 at 5:38 PM AGER MACHINE Telephone Encounter - Blank Lemos MD - 09/12/2019 3:12 PM CST Refilled x 3 months. Needs yearly appt before any additional refills after this. Please help her schedule physical plus within the next 3 months. Blank Lemos MD Internal Medicine/Pediatrics [facility] AGER MACHINE Telephone Encounter - Tia Floyd RN - [...] No positive test in last 12 months AGER MACHINE documented in this encounter Plan of Treatment Not on filedocumented as of this encounter Visit Diagnoses Diagnosis Migraine without aura and without status migrainosus, not intractable Migraine without aura, without mention o f intractable migraine without mention of status migrainosus documented in this encounter Additional Health Concerns Assessment Noted Time PHQ-9 Depression Total Score: 4 09/22/2018 3:08 PM PACKAGER MACHINE documented as of this encounter Care Teams Painter Bottom Relationship Specialty Start Date End Date Blank Lemos, PCP - General Internal Medicine 04/22/18 [facility] [place] [address] Blank Lemos, Assigned PCP 04/25/18 MD [place] [place] [phone] Hardeep Cárdenas Personal Advocate & 06/17/1901/30 Liaison (PAL) documented as of this encounter
--- OUTSIDE RECORDS SUMMARY | 2022-06-13 09:04 | XMS_ITS | Encounter Summary ---
:1990 Author Organization [place] Address [facility] [place] [address] Care Team Providers Name Role Phone Blank Lemos MD Primary Care Provider Blank Lemos MD Unavailable Hardeep Cárdenas Unavailable Unavailable Reason for Visit Reason Comments Medication Refill Encounter Details Date Type Department Care Team Description 07/27/2019 Refill [facility] Blank Oliveros MD Medication Refill Dev 3305 [facility] 3305 [facility] [place] [address] [address] [place] [address] [phone] Social History Tobacco Use Types Packs/Day Years [...] 12 months Prescription approved per [facility] Refill Protocol. Tony Huang RN, BSN, PHN HIATRIC REGISTERED NURSE documented in this encounter Plan of Treatment Not on filedocumented as of this encounter Visit Diagnoses Diagnosis Generalized anxiety disorder Bipolar I disorder (H) Bipolar I disorder, most recent episode (or current) unspecified documented in this encounter Additional Health Concerns Assessment Noted Time PHQ-9 Depression Total Score: 4 09/22/2018 3:08 PM PSYCHIATRIC REGISTERED NURSE documented as of this encounter Care Teams Page Technician Relationship Specialty Start Date End Date Blank Lemos, PCP - General Internal Medicine [facility] [place] [phone] Blank Lemos, Assigned PCP 04/25/18 MD Zarate [facility] [place] [phone] Hardeep Cárdenas Personal Advocate & 11/8/19 6/23 /20 Liaison (PAL) documented as of this encounter
--- OUTSIDE RECORDS SUMMARY | 2022-06-13 09:04 | XMS_ITS | Encounter Summary ---
:1990 Author Organization [place] Address [address] [place] [address] Care Team Providers Name Role Phone Blank Lemos MD Primary Care Provider Blank Lemos MD Unavailable Encounter Details Date Type Department Care Team Description 02/01/2020 Orders Only [facility] Ble eding in early [facility] [address] [place] [address] Social History Tobacco Use Types [...] Quantitative 8,783 (H) 0 - 5 02/02/2020 [place] Serum IU/L 10:02 AM CDT [facility] Specimen Anatomical Collection Method Collection Time Receive d Time (Source) Location / / Volume Laterality Blood specimen 02/01/2020 11:02 0 (specimen) AM CDT 11:04 AM CDT Faiza Reyes CNM LAB - BLOOD ORDERABLES Performing Organization Address City/State/ZIP Code Phon e Number [facility] [address] [place] [address] Progesterone (02/01/2020 11:02 AM CDT) P athologist Signature Progesterone 12.2 ng/mL 02/01/2020 [facility] 6:04 PM CDT [facility] Comment: Progesterone Reference Range Female Non [...] Organization Address City/State/ZIP Code Phon e Number [facility] [address] [place], [place] [id number] [place] [address] documented in this encounter Visit Diagnoses Diagnosis Bleeding in early Unspecified hemorrhage in early pregnanc y, unspecified as to episode of care documented in this encounter Additional Health Concerns Assessment Noted Time PHQ-9 Depression Total Score: 15 12/08/2019 10:02 AM C DT documented as of this encounter Care Teams Quality Engineer Medical Device Relationship Specialty Start Date End Date Blank Lemos MD PCP - General Internal Medicine 04/22/[address] [place] [address] [place] [address] Blank Lemos MD Assigned PCP 04/25/[address] [place] [address] [place] [address] documented as of this encounter
--- OUTSIDE RECORDS SUMMARY | 2022-06-13 09:05 | XMS_ITS | Encounter Summary ---
:1990 Author Organization [place] Address [facility] [place] [place] [address] Care Team Providers Name Role Phone Blank Lemos MD Primary Care Provider Blank Lemos MD Unavailable Blank Lemos MD Unavailable Reason for Visit Reason Onset Date Comments Pharyngitis 04/27/2018 Encounter Details Date Type Department Care Team Description 04/27/2018 Telephone [facility] Blank Oliveros MD Pharyngitis [place] 3305 [facility] 3305 [facility] [place] [address] [address] [place] [address] [phone] Social History Tobacco Use Types Packs/Day Years [...] as of this encounter Care Teams Driver Courier Relationship Specialty Start Date End Date Blank Lemos MD PCP - General Internal Medicine 04/22/[address] [place] [address] [place] [address] Blank Lemos MD PCP - Assigned PCP 04/25/18 10/12/[address] [place] [address] [place] [address] Blank Lemos MD Assigned PCP 04/25/[address] [place] [address] [place] [phone] documented as of this encounter
--- OUTSIDE RECORDS SUMMARY | 2022-06-13 09:05 | XMS_ITS | Encounter Summary ---
:1990 Author Organization [place] Address [facility] [place] [address] Care Team Providers Name Role Phone Blank Lemos MD Primary Care Provider Blank Lemos MD Unavailable Reason for Visit Reason Comments Medication Refill SUMAtriptan (IMITREX) 25 MG tablet Encounter Details Date Type Department Care Team Description 06/16/2019 Refill [facility] [place], [place] dication Refill Clinic Dev [place] (SUMAtriptan (IMITREX) [address] [place] 3305 [facility] 25 MG tablet) [facility] [address] [place] [address] [place] [address] [phone] Social History Tobacco Use Types Packs/Day Years [...] No positive test in past [address] [employer] documented in this encounter Plan of Treatment Not on filedocumented as of this encounter Visit Diagnoses Diagnosis Other migraine without status migrainosu s, not intractable documented in this encounter Additional Health Concerns Assessment Noted Time PHQ-9 Depression Total Score: 4 09/22/2018 3:08 PM ARTIST SCIENTIFIC documented as of this encounter Care Teams Executive Coordinator Relationship Specialty Start Date End Date Blank Lemos MD PCP - General Internal Medicine 04/22/[address] [place] [address] [place] [address] Blank Lemos MD Assigned PCP 04/25/[address] [place] [address] [place] [phone] documented as of this encounter
--- OUTSIDE RECORDS SUMMARY | 2022-06-13 09:05 | XMS_ITS | Encounter Summary ---
:1990 Author Organization [place] Address [facility] [place] [address] Care Team Providers Name Role Phone Blank Lemos MD Primary Care Provider Blank Lemos MD Unavailable Blank Lemos MD Unavailable Reason for Visit Reason Onset Date Comments Results 04/26/2018 Re: urine culture Encounter Details Date Type Department Care Team Description 04/26/2018 Telephone [facility] Blank Lemos Results ( Re: urine Clinic Dev Camp MD culture) [address] [place] 3305 [facility] [address] [place] [address] [place] [address] [phone] Social History Tobacco Use Types Packs/Day Years [...] further evaluation. Blank Lemos MD Internal Medicine/Pediatrics [facility] Telephone Encounter - Anastasia Dickey - 04/26/2018 [...] documented as of this encounter Care Teams Edge Kitter Relationship Specialty Start Date End Date Blank Lemos MD PCP - General Internal Medicine 04/22/[address] [place] [address] [place] [address] Blank Lemos MD PCP - Assigned PCP 04/25/18 10/12/[address] [place] [address] [place] [address] Blank Lemos MD Assigned PCP 04/25/[address] [place] [address] [place] [phone] documented as of this encounter
--- OUTSIDE RECORDS SUMMARY | 2022-06-13 09:05 | XMS_ITS | Encounter Summary ---
:1990 Author Organization [place] Address [facility] [place] [address] Care Team Providers Name Role Phone Lalita Perez MD Primary Care Provider Reason for Visit Reason Comments Medication Refill escitalopram (LEXAPRO) 20 MG tablet Encounter Details Date Type Department Care Team Description 02/05/2018 Refill [facility] Dev Reyes MD (escitalopram (LEXAPRO) 3305 [facility] 20 MG tab let) [facility] [address] [place] [address] [place] [address] [place] [address] (Wo rk) Social History Tobacco [...] 02/05/2018 3:46 PM CDT Sent PHQ-9 via Bharat Matrimonyhart. Brii Vazquez RN, BSN, N [facility] RN Telephone Encounter - Douglas James [...] as of this encounter Care Teams Manager Compliance Relationship Specialty Start Date End Date Lalita Perez MD PCP - General Student in [facility] 10/21/1404/21 care education/training program documented as of this encounter
--- OUTSIDE RECORDS SUMMARY | 2022-06-13 09:05 | XMS_ITS | Encounter Summary ---
:1990 Author Organization [place] Address [address] [place] [address] Care Team Providers Name Role Phone Lalita Perez MD Primary Care Provider Reason for Visit Reason Onset Date Comments Refill Request 08/11/2016 TOPIRAMATE 25MG Encounter Details Date Type Department Care Team Description 08/11/2016 Refill [facility] Lalita Perez MD Refill Request Clinic [facility] (TOPIRAMATE 25MG) [address] [address] [facility] [address] [place] [address] [place] [address] [phone] Social History Tobacco Use Types Packs/Day Years [...] 08/11/2016 2:17 PM CST Prescription approved per [facility] Refill Protocol. Kylah Gomez, tracer lathe set up operator Nurse EAR LOGGING ENGINEER Telephone Encounter - Lalita Merritt - 08/11/2016 9:47 AM CST TOPIRAMATE 25MG Last Written Prescription Date: 07/11/2016 Last Fill Quantity: 120, # refills: 0 Last Office Visit with [facility], [facility] or [facility] prescribing provider: 06/16/2016 Future Office Visit: CREATININE Date Value Ref Range Status 04/19/2016 0.64 0.52 - 1.04 mg/dL Final EAR LOGGING ENGINEER documented in this encounter Plan of [...] documented as of this encounter Care Teams Mall Plant Caretaker Relationship Specialty Start Date End Date Lalita Perez MD PCP - General Student in organized health 10/21/1404/21 care education/training program documented as of this encounter
--- OUTSIDE RECORDS SUMMARY | 2022-06-13 09:05 | XMS_ITS | Encounter Summary ---
:1990 Author Organization [place] Address [address] [place] [address] Care Team Providers Name Role Phone Lalita Perez MD Primary Care Provider Reason for Visit Reason Onset Date Comments Medication Request 08/14/2016 ear pain Encounter Details Date Type Department Care Team Description 08/14/2016 Telephone [facility] Lalita Perez MD Medication Request (ear Clinic [facility] pain) [address] [place] [address] [place] [address] [address] [place] [address] [place] [address] [phone] Social History Tobacco Use Types Packs/Day Years [...] Kapadia RN Message handled by Nurse Triage. CONDITIONING SUPERVISOR Telephone Encounter - Kirill Ochoa PA-C - 08/15/2016 3:07 PM AIR CONDITIONING SUPERVISOR Please have patient follow up with PCP if symptoms are persistent. CONDITIONING SUPERVISOR Telephone Encounter - Kristie Kapadia RN [...] reporting no improvement with ear pain with qsiuqsiv-ocxyegnan-rlwbmxwwgggwqw (CORTISPORIN) 3.5-12594-4 otic suspension drops. States that the pain [...] Kapadia RN Message handled by Nurse Triage. CONDITIONING SUPERVISOR documented in this encounter Plan of Treatment Not on filedocumented as of this encounter Visit Diagnoses Not on filedocumented in this encounter Additional Health Concerns Assessment Noted Time PHQ-9 Depression Total Score: 14 04/11/2016 7:23 AM CD T documented as of this encounter Care Teams Office Manager Relationship Specialty Start Date End Date Lalita Perez MD PCP - General Student in [facility] 10/21/1404/21 care education/training program documented as of this encounter
--- OUTSIDE RECORDS SUMMARY | 2022-06-13 09:05 | XMS_ITS | Encounter Summary ---
:1990 Author Organization [place] Address Counts include 234 beds at the [facility] [place] [address] Care Team Providers Name Role Phone Lalita Perez MD Primary Care Provider Reason for Visit Reason Comments Forms Encounter Details Date Type Department Care Team Description 12/22/2016 Office Visit [facility] Blank Lemos Gastroeso phageal reflux disease without esophagitis (Primary Dx); Clinic Dev Camp MD History of MMR vaccination; [address] [place] [address] [place] RUQ abdomi nal pain; [facility] DR Migraine without aura and without status migrainosus, not intractable [address] [place] [address] [place] [address] Social History Tobacco Use Types Packs/Day [...] the following health issues: FMLA paperwork from [employer] for ongoing migraines. 1. 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 Problem [...] if pain not improving. Blank Lemos MD [facility] DEV documented in this encounter Nursing [...] [facility] (Measles) [facility] [place] [facility] Antibody IgG [facility] Comment: Positive, suggests prev. exposure and pr [...] Address City/State/ZIP Code Phon e Number [address] Rubella Antibody IgG Quantitative (12/22/2016 10:15 AM CDT) Analysis Performed At Patho logist Time Signature Rubella Antibody 18 IU/mL [facility] Comment: Positive. ??Suggests previous exposure o [...] LAB - BLOOD ORDERABLES Performing Organization Address City/[facility] Code Phon e Number [address] (ABNORMAL) Mumps Antibody IgG (12/22/2016 10:15 AM CDT) athologist Signature Mumps Antibody 2.1 (H) 0.0 - 0.8 [facility] Comment: Positive, suggests prev. exposure and [...] Address City/State/ZIP Code Phon e Number [address] (ABNORMAL) Comprehensive metabolic panel (12/22/2016 10:15 AM CDT) Patholo gist Method Time Signature Sodium 143 133 - 144 [place] mmol/L [facility] Potassium 4.2 3.4 - 5.3 [place] mmol/L [facility] Chloride 112 (H) 94 - 109 [place] mmol/L [facility] Carbon Dioxide 23 20 - 32 [place] mmol/L [facility] Anion Gap 8 3 - 14 [place] mmol/L [facility] Glucose 82 70 - 99 [place] mg/dL [facility] Urea Nitrogen 13 7 - 30 [place] mg/dL [facility] Creatinine 0.72 0.52 - [place] 1.04 [facility] mg/dL [facility] GFR Estimate >90 >60 [place] Non GFR Calc mL/min/1. CLINICS 7m2 [facility] GFR Estimate If >90 >60 [place] Black GFR Calc mL/min/1. CLIN ICS 7m2 [facility] Calcium 9.2 8.5 - [place] 10.1 [facility] mg/dL [facility] Bilirubin Total 0.3 0.2 - 1.3 [place] mg/dL [facility] Albumin 3.6 3.4 - 5.0 [place] g/dL [facility] Protein Total 7.0 6.8 - 8.8 [place] g/dL [facility] Alkaline 78 40 - 150 [place] Phosphatase U/L [facility] ALT 55 (H) 0 - 50 [place] U/L [facility] AST 22 0 - 45 [place] U/L [facility] Specimen Anatomical Collection Method Collection Time Receive d Time (Source) Location / / Volume Laterality Blood specimen 12/22/2016 10:15 7 (specimen) AM CDT 10:16 AM CDT Blank Lemos MD LAB - BLOOD ORDERABLES Performing Organization Address City/State/ZIP Code Phon e Number [facility] [address] [place] [address] documented in this encounter Visit Diagnoses Diagnosis [...] documented as of this encounter Care Teams Reconciliation Analyst Relationship Specialty Start Date End Date Lalita Perez MD PCP - General Student in [facility] 10/21/1404/21 care education/training program documented as of this encounter
--- OUTSIDE RECORDS SUMMARY | 2022-06-13 09:05 | XMS_ITS | Encounter Summary ---
:1990 Author Organization [place] Address [address] [place] [address] Care Team Providers Name Role Phone Blank [...] Depression Total Score: 4 09/22/2018 3:08 PM LABOR SPECIALIST documented as of this encounter Care Teams Metal Drilling Machine Operator Relationship Specialty Start Date End Date Blank Lemos, PCP - General Internal Medicine [facility] [address] [place] [place] [address] Blank Lemos, Assigned PCP 04/25/18 MD Zarate [facility] [place] [address] Hardeep Cárdenas Personal Advocate & 06/17/1901/30 Liaison (PAL) documented as of this encounter
--- OUTSIDE RECORDS SUMMARY | 2022-06-13 09:05 | XMS_ITS | Encounter Summary ---
:1990 Author Organization [place] Address [facility] [place] [address] Care Team Providers Name Role Phone Blank Lemos MD Primary Care Provider Blank Lemos MD Unavailable Blank Lemos MD Unavailable Hardeep Cárdenas Unavailable Unavailable Kathleen Lacy CNM Unavailable Anabell Shannon Unavailable Unavailable Rand Kam APRN CNM Unavailable Sharita Frias MD Unavailable Kathleen Lacy CNM Unavailable Kathleen Lacy CNM Unavailable Sharita Frias MD Unavailable Encounter Details Date Type Department Care Team Description 08/09/2018 Telephone [facility] Blank Oliveros MD [place] [address] [facility] [address] [address] [place] [address] [phone] Social History Tobacco Use Types Packs/Day Years [...] documented as of this encounter Care Teams Bridge Opener Relationship Specialty Start Date End Date Blank Lemos, PCP - General Internal Medicine 04/22/[address] [place] [address] [place] [phone] Blank Lemos, PCP - Assigned PCP 04/25/[address] [place] [address] [place] [phone] Blank Lemos, Assigned PCP 04/25/[address] [place] [address] [place] [address] Hardeep Cárdenas Personal Advocate & 06/17/1901/30 Liaison (PAL) Kathleen Lacy CNM Assigned OBGYN Provider 06/01/20 11/23/21 [address] [place], [place] [address] Anabell Shannon Personal Advocate & 3/18/21 Liaison (PAL) Rand Kam, Assigned OBGYN Provider 11/24/21 12/28/21 SENIOR ECOLOGIST CNM [address] [place], [place] [id number] Sharita Frias, Assigned OBGYN Provider 01/04/22 01/17/22 [address] [place], [place] [phone] Kathleen Lacy CNM Assigned OBGYN Provider 12/29/21 01/03/22 [address] [place], [place] [address]67[address] Kathleen Lacy CNM Assigned OBGYN Provider 01/18/22 01/24/22 [address] [place] [address] Sharita Frias, Assigned OBGYN Provider 01/25/22 05/09/22 [address] [place], [place] [id number] documented as of this encounter
--- OUTSIDE RECORDS SUMMARY | 2022-06-13 09:05 | XMS_ITS | Encounter Summary ---
:1990 Author Organization [place] Address [address] [place] [address] Care Team Providers Name Role Phone Lalita Perez MD Primary Care Provider Reason for Visit Reason Onset Date Comments Prior Auth - Medication 12/25/2016 Omeprazole 20mg caps Encounter Details Date Type Department Care Team Description 12/25/2016 Telephone [facility] Blank Lemos Prior Aut h - Medication Clinic Dev Camp MD (Omeprazole 20mg caps) [address] [place] 3305 [facility] [address] [place] [address] [place] [address] [phone] Social History Tobacco Use Types Packs/Day Years [...] on Omeprazole 20 mg caps. Insurance # [phone] Pharmacy [facility] [address] ^^ [phone] I will start the PA process undercover [...] as of this encounter Care Teams Batch Records Clerk Relationship Specialty Start Date End Date Lalita Perez MD PCP - General Student in organized health 10/21/1404/21 care education/training program documented as of this encounter
--- OUTSIDE RECORDS SUMMARY | 2022-06-13 09:05 | XMS_ITS | Encounter Summary ---
:1990 Author Organization [place] Address [address] [place] [address] Care Team Providers Name Role Phone Blank Lemos MD Primary Care Provider Blank Lemos MD Unavailable Blank Lemos MD Unavailable Reason for Visit Reason Comments Medication Refill escitalopram (LEXAPRO) 20 MG tablet Encounter Details Date Type Department Care Team Description 08/06/2018 Refill [facility] on Refill Clinic Dev Reyes MD (escitalopram (LEXAPRO) 4936 [facility] 20 MG tab let) [place] [address] [facility] [place] [address] [place] [address] (Wo rk) Social History Tobacco [...] No positive test in last 12 months SHER OPERATOR documented in this encounter Plan of Treatment Not on filedocumented as of this encounter Visit Diagnoses Diagnosis Generalized anxiety disorder Bipolar I disorder (H) Bipolar I disorder, most recent episode (or current) unspecified documented in this encounter Additional Health Concerns Assessment Noted Time PHQ-9 Depression Total Score: 7 02/07/2018 7:00 AM CDT documented as of this encounter Care Teams Microsoft Windows Engineer Relationship Specialty Start Date End Date Blank Lemos MD PCP - General Internal Medicine 04/22/[address] [place] [address] [address] [place], [place] [address] Blank Lemos MD PCP - Assigned PCP 04/25/18 10/12/18 [address]305 [facility] [place] [phone] Blank Lemos MD Assigned PCP 04/25/18 [address]305 [facility] KISHAN RENO [phone] documented as of this encounter
--- OUTSIDE RECORDS SUMMARY | 2022-06-13 09:05 | XMS_ITS | Encounter Summary ---
:1990 Author Organization [place] Address [address] [place] [address] Care Team Providers Name Role Phone Lalita Perez MD Primary Care Provider Reason for Visit Reason Onset Date Comments Ear Problem 08/19/2016 Encounter Details Date Type Department Care Team Description 08/19/2016 Telephone [facility] Taylor Perez MD Ear Problem [facility] [place] 3305 [facility] [address] [place] [address] [address] [place] [address] [place] [address] [phone] Social History Tobacco Use Types Packs/Day Years [...] she understands the below documentation. Lizett Garcia Call Worker Person NDARY SET UP MAN Telephone Encounter - Lizett Garcia - 08/19/2016 5:41 PM CST LM for patient to call the clinic. Please see below documentation. Thank you, Lizett Garcia Call Worker Person NDARY SET UP MAN Telephone Encounter - Rebeka French PA-C - 08/19/2016 5:12 PM SECONDARY SET UP MAN Begin omnicef and dc augmentin. Increase fluid intake. Call and inform patient. Rebeka French PA-C NDARY SET UP MAN Telephone Encounter - Kristie Kapadia RN - [...] would rather change it than continue. Kristie Kahlotus, RN Message handled by Nurse Triage. NDARY SET UP MAN documented in this encounter Plan of Treatment Not on filedocumented as of this encounter Visit Diagnoses Diagnosis Acute suppurative otitis media without s pontaneous rupture of ear drum, recurrence not specified, unspecified laterality - Primary documented in this encounter Additional Health Concerns Assessment Noted Time PHQ-9 Depression Total Score: 14 04/11/2016 7:23 AM CD T documented as of this encounter Care Teams Educational Institution President Relationship Specialty Start Date End Date Lalita Perez MD PCP - General Student in [facility] 10/21/1404/21 care education/training program documented as of this encounter
--- OUTSIDE RECORDS SUMMARY | 2022-06-13 09:05 | XMS_ITS | Encounter Summary ---
:1990 Author Organization [place] Address [facility] [place] [address] Care Team Providers Name Role Phone Lalita Perez MD Primary Care Provider Reason for Visit Reason Comments Ear Problem Encounter Details Date Type Department Care Team Description 08/15/2016 Office Visit [facility] Rebeka French suppurative otitis media of right ear without spontaneous rupture of tympanic membrane, recurrence not specified (Primary Dx); Clinic Dev Mays PA-C Acute sinusitis with symptoms > 10 days [address] [facility] [address] [place] [address] [place] [address] Social History Tobacco Use Types Packs/Day [...] Comments Blood Pressure 110/70 08/15/2016 4:09 PM INSTALLATION DRAFTER Pulse 91 08/15/2016 4:09 PM INSTALLATION DRAFTER Temperature 37 ??C (98.6 ??F) 08/15/2016 4:09 PM INSTALLATION DRAFTER Respiratory Rate - - Oxygen Saturation 99% 08/15/2016 4:09 PM INSTALLATION DRAFTER Inhaled Oxygen Concentration - - Weight 89 kg (196 lb 4.8 oz) 08/15/2016 4:09 PM INSTALLATION DRAFTER Height 160.7 cm (5' 3.25) 08/15/2016 4:09 PM INSTALLATION DRAFTER Body Mass Index 34.5 08/15/2016 4:09 PM INSTALLATION DRAFTER documented in this encounter Patient Instructions Patient InstructionsRebeka French PA-C - 08/15/2016 4:21 PM INSTALLATION DRAFTER Call with any questions ALLATION DRAFTER documented in this encounter Progress Notes Rebeka [...] list, Allergies, and Medical/Social/Surgical histories reviewed in [facility] andupdated as appropriate. ROS: ROS otherwise negative [...] tablet See Patient Instructions [facility]be[facility] French [facility] ALLATION DRAFTER documented in this encounter Nursing Notes Kylah [...] kg). BP completed using cuff size: regular ALLATION DRAFTER documented in this encounter Plan of Treatment Not on filedocumented as of this encounter Visit Diagnoses Diagnosis Acute suppurative otitis media of right ear without spontaneous rupture of tympanic membrane, recurrence not specified - [facility] Acute sinusitis with symptoms > 10 days Acute sinusitis, unspecified documented in this encounter Additional Health Concerns Assessment Noted Time PHQ-9 Depression Total Score: 14 04/11/2016 7:23 AM CD T documented as of this encounter Care Teams Threading Machine Tender Relationship Specialty Start Date End Date Lalita Perez MD PCP - General Student in organized health 10/21/1404/21 care education/training program documented as of this encounter
--- OUTSIDE RECORDS SUMMARY | 2022-06-13 09:05 | XMS_ITS | Encounter Summary ---
:1990 Author Organization [place] Address [facility] [place] [address] Care Team Providers Name Role Phone Lalita Perez MD Primary Care Provider Reason for Referral Consultation - Closed Specialty Diagnoses / Procedures Referred By Contact Refer red To Contact Diagnoses Migraine without aura and without status migrainosus, not intractable Blank Lemos MD [address] [facility] [address] [place] [address] Phone: Fax: Referral ID Status Reason Start Date Expiration Date Visits Requ ested Visits Authorized [id number] Closed 08/28/2016 08/28/2017 1 1 MACY RESOURCE TECH Reason for Visit Reason Comments Headache Ear Problem Encounter Details Date Type Department Care Team Description 08/28/2016 Office Visit [facility] Blank Lemos Migraine without aura and without status migrainosus, not intractable (Primary Dx); Clinic [place] Camp MD ETD (eustachian tube dysfunction), [address] [place] [address] [place] [address] Social History Tobacco Use Types [...] Comments Blood Pressure 111/77 08/28/2016 2:55 PM PHARMACY RESOURCE TECH Pulse 84 08/28/2016 2:55 PM PHARMACY RESOURCE TECH Temperature 36.9 ??C (98.5 ??F) 08/28/2016 2:55 PM PHARMACY RESOURCE TECH Respiratory Rate - - Oxygen Saturation 98% 08/28/2016 2:55 PM PHARMACY RESOURCE TECH Inhaled Oxygen Concentration - - Weight 88.5 kg (195 lb 3.2 oz) 08/28/2016 2:55 PM PHARMACY RESOURCE TECH Height 160.7 cm (5' 3.25) 08/28/2016 2:55 PM PHARMACY RESOURCE TECH Body Mass Index 34.31 08/28/2016 2:55 PM PHARMACY RESOURCE TECH documented in this encounter Patient Instructions Patient InstructionsBlank Lemos MD - 08/28/2016 3:20 PM CST Increase topamax to 100mg twice daily. Make appt for neurology (if things get better, can always cancel appt). Use sudafed for continued ear symptoms. Blank Lemos MD Internal Medicine/Pediatrics [facility] MACY RESOURCE TECH documented in this encounter Progress Notes Blank [...] list, Allergies, and Medical/Social/Surgical histories reviewed in [facility] andupdated as appropriate. ROS: Constitutional, HEENT, [...] ear symptoms. Blank Lemos MD Internal Medicine/Pediatrics [facility] Blank Lemos MD [facility] MACY RESOURCE TECH documented in this encounter Nursing Notes Saira [...] completed using cuff size: christine Singh LPN MACY RESOURCE TECH documented in this encounter Plan of Treatment Scheduled Referrals Name Type Priority Associated Diagnoses Order S [facility] NEUROLOGY ADULT Referral Routine Migraine without aura [...] as of this encounter Care Teams Manager Salt Relationship Specialty Start Date End Date Lalita Perez MD PCP - General Student in organized health 10/21/1404/21 care education/training program documented as of this encounter
--- OUTSIDE RECORDS SUMMARY | 2022-06-13 09:05 | XMS_ITS | Encounter Summary ---
:1990 Author Organization [place] Address [facility] [place] [address] Care Team Providers Name Role Phone Lalita Perez MD Primary Care Provider Reason for Visit Reason Comments Anxiety Depression Encounter Details Date Type Department Care Team Description 08/17/2017 Office Visit [facility] Lily Encarnacion anxiety disorder; Clinic [place] Reyes MD Bipolar I disorder (H); [address] [facility] Migraine without aura and without status migrainosus, not intractable [facility] [address] [place] [address] [address] [phone] [place], [place] [address] Social History Tobacco Use Types Packs/Day [...] Comments Blood Pressure 100/64 08/17/2017 4:47 PM OPHTHALMIC SURGEON Pulse 86 08/17/2017 4:47 PM OPHTHALMIC SURGEON Temperature 36.9 ??C (98.4 ??F) 08/17/2017 4:47 PM OPHTHALMIC SURGEON Respiratory Rate - - Oxygen Saturation 99% 08/17/2017 4:47 PM OPHTHALMIC SURGEON Inhaled Oxygen Concentration - - Weight 73.3 kg (161 lb 11.2 oz) 08/17/2017 4:47 PM OPHTHALMIC SURGEON Height 161.3 cm (5' 3.5) 08/17/2017 4:47 PM OPHTHALMIC SURGEON Body Mass Index 28.19 08/17/2017 4:47 PM OPHTHALMIC SURGEON documented in this encounter Patient Instructions Patient InstructionsSerumLily MD - 08/17/2017 4:40 PM OPHTHALMIC SURGEON 1. Refilled lexapro for 6 months - can complete depression screen over the phone or mychart in 6 months if doing well and refill 2. If not improving, would refer to Psychiatric Nurse practitioner in [place] to discuss other options 3. Refilled topamax 4. Follow-up in 1 year HALMIC SURGEON documented in this encounter Progress Notes Lily [...] referred to psychiatry but did not go. [place] had good response to Lexapro and feels [...] 04/10/2016 08/17/2017 Total Score 11 13 PHQ-9 Ethiopian PHQ-9 Any Language GAD7 Suicide Assessment Five-step [...] - sooner if not controlled Lily Encarnacion [facility] [place] HALMIC SURGEON documented in this encounter Nursing Notes Saira [...] kg). Medication Reconciliation: complete Saira Singh LPN HALMIC SURGEON documented in this encounter Plan of Treatment [...] documented as of this encounter Care Teams Gold Assayer Relationship Specialty Start Date End Date Lalita Perez MD PCP - General Student in [facility] 10/21/1404/21 care education/training program documented as of this encounter
--- OUTSIDE RECORDS SUMMARY | 2022-06-13 09:05 | XMS_ITS | Encounter Summary ---
:1990 Author Organization [place] Address [address] [place] [address] Care Team Providers Name Role Phone Blank Lemos MD Primary Care Provider Reason for Visit Reason Comments Forms UTI Encounter Details Date Type Department Care Team Description 04/22/2018 Office Visit [facility] Blank Lemos Dysuria ( Primary Dx); Clinic [place] Camp MD Acute cystitis without hematuria; [address] [facility] Other migraine without status migrainosus, not intractable [address] [facility] [address] [place] [address] [place] [address] Social History Tobacco Use [...] this winter for physical/PAP. Blank Lemos MD [facility] DEV documented in this encounter Plan [...] CDT CLINICS DEV Squamous Few FEW^Few 04/22/2018 [place] Epithelial /LPF /LPF 9:01 AM CDT CLINICS [place] N Urine Bacteria Urine Few (A) NEG^Negati 04/22/2018 [place] ve /HPF 9:01 AM CDT CLINICS DEV Specimen Anatomical Collection Method Collection Time Receive d Time (Source) Location / / Volume Laterality 04/22/2018 8:53 AM 8 8:55 CDT AM CDT Blank Lemos MD LAB - URINE ORDERABLES Performing Organization Address City/State/ZIP Code Phon e Number [facility] DEV [address] [place] [address] (ABNORMAL) UA reflex to Microscopic and Culture (04/22/2018 8:53 AM CDT) Patholo gist Method Time Signature Color Urine Yellow 04/22/2018 [place] 9:01 AM CDT CLINICS [facility] Appearance Urine Clear 04/22/2018 [place] 9:01 AM CDT CLINICS [facility] Glucose Urine Negative NEG^Negat 04/22/2018 [place]elin mg/dL 9:01 AM CDT CLINICS DEV Bilirubin Urine Negative NEG^Negat 04/22/2018 [place] 9:01 AM CDT CLINICS DEV Ketones Urine Negative NEG^Negat 04/22/2018 [place] mg/dL 9:01 AM CDT CLINICS DEV Specific [place] 1.020 1.003 - 04/22/2018 [place] Urine 1.035 9:01 AM CDT CLINICS DEV Blood Urine Moderate (A) NEG^Negat 04/22/2018 [place] 9:01 AM CDT CLINICS DEV pH Urine 7.0 5.0 - 7.0 04/22/2018 [place] pH 9:01 AM CDT CLINICS DEV Protein Albumin Negative NEG^Negat 04/22/2018 [place] Urine [place] mg/dL 9:01 AM CDT CLINICS DEV Urobilinogen 0.2 0.2 - 1.0 04/22/2018 [place] Urine EU/dL 9:01 AM CDT CLINICS DEV Nitrite Urine Negative NEG^Negat 04/22/2018 [place]elin 9:01 AM CDT CLINICS DEV Leukocyte Trace (A) NEG^Negat 04/22/2018 [place] Esterase Urine yakelin 9:01 AM CDT CLINICS DEV Source Midstream 04/22/2018 [place] Urine 8:55 AM CDT CLINICS DEV Specimen (Source) Anatomical Collection Method Collection Time Re ceived Time Location / / Volume Laterality Examination of 04/22/2018 8:53 04/22/2018 8:55 midstream urine AM CDT AM CDT specimen (procedure) Blank Lemos MD LAB - URINE ORDERABLES Performing Organization Address City/State/ZIP Code Phon e Number [facility] DEV [address] [facility] [place] [address] [phone] documented in this encounter Visit Diagnoses Diagnosis Dysuria - Primary Acute cystitis without hematuria Acute cystitis Other migraine without status migrainosu s, not intractable documented in this encounter Additional Health Concerns Assessment Noted Time PHQ-9 Depression Total Score: 7 02/07/2018 7:00 AM CDT documented as of this encounter Care Teams Technical Assistance Consultant Relationship Specialty Start Date End Date Blank Lemos MD PCP - General Internal Medicine 04/22/[address] [place] [address] [place] [id number] documented as of this encounter
--- OUTSIDE RECORDS SUMMARY | 2022-06-13 09:05 | XMS_ITS | Encounter Summary ---
:1990 Author Organization [place] Address [facility] [place] [address] Care Team Providers Name Role Phone Blank Lemos MD Primary Care Provider Blank Lemos MD Unavailable Blank Lemos MD Unavailable Hardeep Cárdenas Unavailable Unavailable Encounter Details Date Type Department Care Team Description 09/28/2018 Result Follow [facility] Blank Lemos Dx: Papa nicolaou smear Up Clinic [place] Camp MD of cervix with low grade [address] [place] squamous i ntraepithelial [facility] DR lesion (LGSIL) [address] [place] [address] [place] [phone] [address] (Work) [phone] Social History Tobacco Use Types Packs/Day Years [...] 09/22/18 LSIL, +HR HPV, not 16/18. Plan [place] by 12/20/18 09/29/18 Patient has been notified of results and recommendations. 10/07/18 [place]- No lesions seen, no Bx taken. Plan 1 yr co-test, due by 09/22/19. 09/07/19 [employer] reminder message sent. (es) 03/05/20 CCT tracking. 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) documented in this encounter Additional Health Concerns Assessment Noted Time PHQ-9 Depression Total Score: 4 09/22/2018 3:08 PM STUDENT AMBASSADOR documented as of this encounter Care Teams Car Supplier Relationship Specialty Start Date End Date Blank Lemos, PCP - General Internal Medicine [facility] [place] [phone] Blank Lemos, PCP - Assigned PCP 04/25/18 [facility] [place] [address] Blank Lemos, Assigned PCP 04/25/[facility] [place] [address] Hardeep Cárdenas Personal Advocate & 06/17/1901/30 Liaison (PAL) documented as of this encounter
--- OUTSIDE RECORDS SUMMARY | 2022-06-13 09:05 | XMS_ITS | Encounter Summary ---
:1990 Author Organization [place] Address [facility] [place] [address] Care Team Providers Name Role Phone Lalita Perez MD Primary Care Provider Reason for Visit Reason Onset Date Comments Refill Request 07/13/2017 escitalopram (LEXAPR O) 20 MG tablet Encounter Details Date Type Department Care Team Description 07/13/2017 Refill [facility] Lalita Perez MD Refill Request Clinic [facility] (escitalopram (LEXAPRO) [address] [facility] 20 MG tablet) [facility] [place] [place] [address] [place] [address] [place] [address] [phone] Social History Tobacco Use Types Packs/Day Years [...] Ashley - 07/31/2017 10:51 AM CST 3rd OFF WORKER Telephone Encounter - Anastasia [place] - 07/24/2017 11:13 AM CST Left 2nd VM for pt to call back. She is over due for an office visit. OFF WORKER Telephone Encounter - Chrissie Arana - 07/17/2017 1:49 PM CST Left message for patient to call us back. She is due for an office visit. OFF WORKER Telephone Encounter - Lily Encarnacion MD - 07/15/2017 8:23 PM TAKE OFF WORKER Depression and anxiety have not been addressed at since 04/2016 per notes. Was referred to Psychiatry at that time. Needs f/u. Rx filled for 30 days. Please let know. Lily Encarnacion MD Internal Medicine/Pediatrics OFF WORKER Telephone Encounter - Alissa Blank RN - [...] Dr. Encarnacion as she saw her last OFF WORKER Telephone Encounter - Lalita Merritt - 07/13/2017 9:29 AM CST WERO 01/28/2017 OFF WORKER documented in this encounter Plan of Treatment Not on filedocumented as of this encounter Visit Diagnoses Diagnosis Generalized anxiety disorder Bipolar I disorder (H) Bipolar I disorder, most recent episode (or current) unspecified documented in this encounter Additional Health Concerns Assessment Noted Time PHQ-9 Depression Total Score: 14 04/11/2016 7:23 AM CD T documented as of this encounter Care Teams Apprentice Electrician Relationship Specialty Start Date End Date Lalita Perez MD PCP - General Student in organized health 10/21/1404/21 care education/training program documented as of this encounter
--- OUTSIDE RECORDS SUMMARY | 2022-06-13 09:05 | XMS_ITS | Encounter Summary ---
:1990 Author Organization [place] Address [facility] [place] [address] Care Team Providers Name Role Phone Blank Lemos MD Primary Care Provider Blank Lemos MD Unavailable Blank Lemos MD Unavailable Reason for Visit Reason Comments Colposcopy Encounter Details Date Type Department Care Team Description 10/07/2018 Office Visit [facility] Yonathan Giraldo Papsohan molina smear of Clinic Dev You MD cervix with low grade [address] [place], [place] intraepithelial lesion [address] [id number] (LGSIL) (Primary Dx) [place] MD [phone] (Wo rk) [address] [phone] Social History Tobacco Use Types Packs/Day Years [...] Comments Blood Pressure 114/80 10/07/2018 2:04 PM UPKEEP WORKER Pulse - - Temperature - - Respiratory Rate - - Oxygen Saturation - - Inhaled Oxygen Concentration - - Weight 84.6 kg (186 lb 9.6 oz) 10/07/2018 2:04 PM UPKEEP WORKER Height - - Body Mass Index 32.54 [...] Pap/HPV in 1 year Yonathan Giraldo MD EP WORKER documented in this encounter Nursing Notes Furlong, Shi F, STATISTICS MANAGER - 10/07/2018 2:00 PM CST Chief Complaint [...] Vaccinations: flu shot declined Shi Rinaldi CMA EP WORKER documented in this encounter Plan of Treatment Not on filedocumented as of this encounter Procedures Procedure Name Priority Date/Time Associated Diagnosis Comme nts HCG QUALITATIVE LEANDRA 10/07/2018 2:11 Papanicolaou smear of Results for this URINE PM UPKEEP WORKER cervix with low grade proced ure are in squamous the results intraepithelial lesion secti on. (LGSIL) documented in this encounter Results HCG qualitative urine - CSC and Range (10/07/2018 2:11 PM UPKEEP WORKER) P athologist Signature HCG Qual Urine Negative NEG^Negati 10/07/2018 [facility] 2:24 PM [facility]PKEEP WORKER [facility] Comment: This test is for screening purposes. ??R esults should be interpreted along with the clinical picture. ??Confirmation te sting is available if warranted by ordering [id number], HCG Quantitative Pregna ncy. Specimen Anatomical Collection Method Collection Time Receive d Time (Source) Location / / Volume Laterality Urine specimen 10/07/2018 2:11 PM 019 2:13 (specimen) UPKEEP WORKER PM UPKEEP WORKER Yonathan Giraldo MD LAB - URINE ORDERABLES Performing Organization Address City/State/ZIP Code Phon e Number [address] [id number] documented in this encounter Visit Diagnoses Diagnosis Papanicolaou smear of cervix with low gr asiya squamous intraepithelial lesion (LGSIL) - Primary documented in this encounter Additional Health Concerns Assessment Noted Time PHQ-9 Depression Total Score: 4 09/22/2018 3:08 PM UPKEEP WORKER documented as of this encounter Care Teams Lehr Loader Relationship Specialty Start Date End Date Blank Lemos MD PCP - General Internal Medicine 04/22/[address] [place] [address] [place], [place] [phone] Blank Lemos MD PCP - Assigned PCP 04/25/18 10/12/[address] [place] [address] [place] [phone] Blank Lemos MD Assigned PCP 04/25/[address] [place] [address] [place] [phone] documented as of this encounter
--- OUTSIDE RECORDS SUMMARY | 2022-06-13 09:05 | XMS_ITS | Encounter Summary ---
:1990 Author Organization [place] Address [facility] [place] [address] Care Team Providers Name Role Phone Lalita Perez MD Primary Care Provider Reason for Visit Reason Onset Date Comments Refill Request 01/14/2017 escitalopram (LEXAPR O) 20 MG tablet 01/14/17 Encounter Details Date Type Department Care Team Description 01/14/2017 Refill [facility] Lalita Perez MD Refill Request Clinic [facility] (escitalopram (LEXAPRO) [address] [place] [address] [facility] 20 MG tablet 01/14/17) [facility] [address] [place] [address] [place] [address] [phone] Social History Tobacco Use Types Packs/Day Years [...] 01/15/2017 2:03 PM CDT Prescription approved per [facility] Refill Protocol. Vandana Sosa RN Telephone Encounter - Nini Figueroa - 01/14/2017 11:31 AM CDT Medication Detail Disp Refills Start End GERARDO escitalopram (LEXAPRO) 20 MG tablet 90 tablet 2 04/10/2016 No Sig: Take 1 tablet (20 mg) by mouth daily Last Office Visit with [facility] primary care provider: 12/22/16 Last PHQ-9 score [...] documented as of this encounter Care Teams Bookkeeping Clerk Relationship Specialty Start Date End Date Lalita Perez MD PCP - General Student in organized health 10/21/1404/21 care education/training program documented as of this encounter
--- OUTSIDE RECORDS SUMMARY | 2022-06-13 09:05 | XMS_ITS | Encounter Summary ---
:1990 Author Organization [place] Address [facility] [place] [address] Care Team Providers Name Role Phone Uvaldo Gamble MD Primary Care Provider Uvaldo Gamble MD Unavailable Uvaldo Gamble MD Unavailable Reason for Visit Reason Comments Physical Encounter Details Date Type Department Care Team Description 09/22/2018 Office Visit [facility] Uvaldo Gamble Encounter for gynecological examination without abnormal finding (Primary Dx); Clinic Dev Camp MD Bipolar I disorder (H); [address] [facility] Migra ine without aura and without status migrainosus, not intractable; [facility] [place]ized anxiety disorder; [address] [place] [address] Screening for cervical cancer; [place] [address] Tobacco abuse; Otalgia of both [...] Comments Blood Pressure 108/66 09/22/2018 11:20 AM TREE CARE FOREMAN Pulse 59 09/22/2018 11:20 AM TREE CARE FOREMAN Temperature 36.7 ??C (98.1 ??F) 09/22/2018 11:20 AM TREE CARE FOREMAN Respiratory Rate - - Oxygen Saturation 98% 09/22/2018 11:20 AM TREE CARE FOREMAN Inhaled Oxygen Concentration - - Weight 84.4 kg (186 lb) 09/22/2018 11:20 AM TREE CARE FOREMAN Height - - Body Mass Index 32.43 [...] six months for an exam and cleaning. CARE FOREMAN documented in this encounter Progress Notes Uvaldo [...] Prophylaxis Lung CA Screening Uvaldo Gamble MD [facility] DEV CARE FOREMAN documented in this encounter Plan of Treatment Not on filedocumented as of this encounter Procedures Procedure Name Priority Date/Time Associated Diagnosis Comme nts PAP IMAGED THIN Routine 09/22/2018 11:51 AM Screening for Resu lts for this LAYER SCREEN TREE CARE FOREMAN cervical cancer procedure ar e in the results section. HPV HIGH RISK TYPES Routine 09/22/2018 11:39 AM Screening for Results for this DNA CERVICAL TREE CARE FOREMAN cervical cancer procedure ar e in the results section. documented in this encounter Results (ABNORMAL) Pap imaged thin layer screen with HPV - recommended age 30 - 65 years (select HPV order below) (09/22/2018 11:51 AM TREE CARE FOREMAN) Component Value Ref Test Analysis Performed At [facility] Range Method Time Signature PAP LSIL (A) COPATH Copath Report COPATH Patient Name: RENA RESENDIZ MR#: [id number] Specimen #: [id number] Collected: 09/22/2018 Received: 09/23/2018 Reported: 09/27/2018 15:17 [...] Arthur Grimes M.D. Processed and screened at [facility] CLINICAL HISTORY: A previous normal pap Date of Last Pap: 04/05/15, Papanicolaou Test Limitations: ??Cervical cytology is a sc reening test with limited sensitivity; regular screening is critical for cancer prevention; Pap tests are p rimarily effective for the diagnosis/prevention of squamous cell carcinoma, not adenocarcinomas or other cancer s. TESTING LAB LOCATION: [facility] [address] [place], [place] ??[address] COLLECTION SITE: Client: ??[facility] Location: EAFP (R) Specimen (Source) Anatomical Collection Method Collection Time Re ceived Time Location / / Volume Laterality Cytologic 09/22/2018 11:51 09/23/2018 2:24 material AM TREE CARE FOREMAN PM TREE CARE FOREMAN (specimen) Uvaldo Gamble MD LAB - OPTIME CLINICAL SPECIM EN Performing Organization Address City/State/ZIP Code Phon e Number COPATH (ABNORMAL) HPV High Risk Types DNA Cervical (09/22/2018 11:39 AM TREE CARE FOREMAN) [facility] Method Time Signature HPV Source [facility] 09/22/2018 [place] 11:51 AM [facility] DEV TREE CARE FOREMAN HPV 16 DNA Negative NEG^Negat 09/28/2018 [facility] [place] 2:[address] [facility] HPV 18 DNA Negative NEG^Negat 09/28/2018 [facility] [place] 2:[address] [facility] Other HR HPV Positive (A) NEG^Negat 09/28/2018 [facility] [place] 2:[address] [facility] Final This patient's sample is pos itive for other HR HPV DNA (types 31, 33, 35, 39, 45, 51, 52, 09/28/2018 [facility] 56, 58, 59, 66 or 68), not H PV 16 or HPV 18 DNA. This result requires clinical correlation 2:23 PM [facility] with concurrent cytology findings. [facility] Comment: This test was developed and its performa nce characteristics determined by the [facility], Molecular Diagnostics Laboratory. It has [...] Description Cervical Cells 09/22/2018 11: 51 AM [facility] Comment: [id number] Specimen Anatomical Collection Method Collection Time Receive d Time (Source) Location / / Volume Laterality Cervical Cells CERVIX UTERI 09/22/2018 11:39 9 1:15 STRUCTURE / AM TREE CARE FOREMAN PM TREE CARE FOREMAN Unknown Uvaldo Gamble MD LAB - BLOOD ORDERABLES Performing Organization Address City/State/ZIP Code Phon e Number [address] [address] documented in this encounter Visit Diagnoses Diagnosis [...] Depression Total Score: 4 09/22/2018 3:08 PM TREE CARE FOREMAN documented as of this encounter Care Teams Dermatological Surgeon Relationship Specialty Start Date End Date Uvaldo Gamble MD PCP - General Internal Medicine 04/22/[address] [place] [address] [place] [address] Uvaldo Gamble MD PCP - Assigned PCP 04/25/18 10/12/[address] [place] [address] K[place] RENO [phone] Uvaldo Gamble MD Assigned PCP 04/25/18 [address] [facility] K[place] RENO [phone] documented as of this encounter
--- OUTSIDE RECORDS SUMMARY | 2022-06-13 09:05 | XMS_ITS | Encounter Summary ---
:1990 Author Organization [place] Address [address] [place] [address] Care Team Providers Name Role Phone Lalita Perez MD Primary Care Provider Reason for Visit Reason Onset Date Comments Medication Request 08/05/2016 alternative Encounter Details Date Type Department Care Team Description 08/05/2016 Telephone [facility] Lalita Perez MD Medication Request Clinic [facility] (alternative) [address] [facility] [address] [place] [address] [place] [address] [phone] Social History Tobacco Use Types Packs/Day Years [...] sent to the pharmacy. Kelly Hernandez RN ANDROID DEVELOPER Telephone Encounter - Emmett Gallegos MD - 08/05/2016 7:24 PM CST alternative sent ANDROID DEVELOPER Telephone Encounter - Kristie Kapadia RN - 08/05/2016 6:[address] Gallegos, please review-ok to wait for UC, or could an alternative medicine be sent earlier? Kristie Kapadia RN Message handled by Nurse Triage. ANDROID DEVELOPER Telephone Encounter - Kristie Kapadia RN - 08/05/2016 6:24 PM CST Patient calls. Was prescribed ciprofloxacin-dexamethasone (CIPRODEX) otic suspension for an ear infection. The medication is 200 dollars, asking for an alternative medication. Please send. Kristie Kapadia RN Message handled by Nurse Triage. ANDROID DEVELOPER documented in this encounter Plan of Treatment Not on filedocumented as of this encounter Visit Diagnoses Diagnosis Acute swimmer's ear of right side - Prim ronak documented in this encounter Additional Health Concerns Assessment Noted Time PHQ-9 Depression Total Score: 14 04/11/2016 7:23 AM CD T documented as of this encounter Care Teams Academic Program Specialist Relationship Specialty Start Date End Date Lalita Perez MD PCP - General Student in [employer] 10/21/1404/21 care education/training program documented as of this encounter
--- OUTSIDE RECORDS SUMMARY | 2022-06-13 09:05 | XMS_ITS | Encounter Summary ---
:1990 Author Organization [place] Address [facility] [place] [address] Care Team Providers Name Role Phone Blank Lemos MD Primary Care Provider Blank Lemos MD Unavailable Hardeep Cárdenas Unavailable Unavailable Reason for Visit Reason Comments Ear Problem Encounter Details Date Type Department Care Team Description 07/15/2019 Office Visit [facility] Rebeka French Non- recurrent acute Clinic Dev Mays PA-C suppurative otitis [address] [facility] media of both ears [facility] without spontaneous [address] [place] [address] rupture of tympanic [place] [address] membranes [...] Comments Blood Pressure 118/64 07/15/2019 2:56 PM JUVENILE JUSTICE SPECIALIST Pulse 67 07/15/2019 2:56 PM JUVENILE JUSTICE SPECIALIST Temperature 36.8 ??C (98.3 ??F) 07/15/2019 2:56 PM JUVENILE JUSTICE SPECIALIST Respiratory Rate 16 07/15/2019 2:56 PM JUVENILE JUSTICE SPECIALIST Oxygen Saturation 98% 07/15/2019 2:56 PM JUVENILE JUSTICE SPECIALIST Inhaled Oxygen Concentration - - Weight 96.6 kg (213 lb) 07/15/2019 2:56 PM JUVENILE JUSTICE SPECIALIST Height 160 cm (5' 3) 07/15/2019 2:56 PM JUVENILE JUSTICE SPECIALIST Body Mass Index 37.73 07/15/2019 2:56 PM JUVENILE JUSTICE SPECIALIST documented in this encounter Progress Notes Rebeka [...] 20 tablet; Refill: 0 Rebeka French PA-C [facility] DEV NILE JUSTICE SPECIALIST documented in this encounter Plan of Treatment Not on filedocumented as of this encounter Visit Diagnoses Diagnosis Non-recurrent acute suppurative otitis m edia of both ears without spontaneous rupture of tympanic membranes - Primary documented in this encounter Additional Health Concerns Assessment Noted Time PHQ-9 Depression Total Score: 4 09/22/2018 3:08 PM JUVENILE JUSTICE SPECIALIST documented as of this encounter Care Teams Water Purifier Operator Relationship Specialty Start Date End Date Blank Lemos, PCP - General Internal Medicine 04/22/18 [address] [facility] [facility] [address] MÉNDEZ, KISHAN [phone] Blank Lemos, Assigned PCP 04/25/18 MD [facility] [place] [phone] Hardeep Cárdenas Personal Advocate & 06/17/1901/30 Liaison (PAL) documented as of this encounter
--- OUTSIDE RECORDS SUMMARY | 2022-06-13 09:05 | XMS_ITS | Encounter Summary ---
:1990 Author Organization [place] Address [facility] [place] [address] Care Team Providers Name Role Phone Blank Lemos MD Primary Care Provider Blank Lemos MD Unavailable Reason for Visit Reason Comments Medication Refill escitalopram (LEXAPRO) 20 MG tablet Encounter Details Date Type Department Care Team Description 04/29/2019 Refill [facility] Blank Lemos, Nh dication Refill Clinic [place] (escitalopram (LEXAPRO) [address] [facility] 20 MG tablet) [facility] [address] [place] [address] [place] [address] [phone] Social History Tobacco Use Types Packs/Day Years [...] 05/02/2019 9:03 AM CDT Prescription approved per [facility] Refill Protocol. Brigido [...] Depression Total Score: 4 09/22/2018 3:08 PM FENDER REPAIRER documented as of this encounter Care Teams Swinging Cut Off Saw Operator Relationship Specialty Start Date End Date Blank Lemos MD PCP - General Internal Medicine 04/22/[address] [place] [address] DR MÉNDEZ, KISHAN [phone] Blank Lemos MD Assigned PCP 04/25/[address] [place] [address] KISHAN RENO [phone] documented as of this encounter
--- OUTSIDE RECORDS SUMMARY | 2022-06-13 09:05 | XMS_ITS | Encounter Summary ---
:1990 Author Organization [place] Address [address] [place] [address] Care Team Providers Name Role Phone Blank [...] Depression Total Score: 4 09/22/2018 3:08 PM SHAKE FEEDER documented as of this encounter Care Teams Correctional Guard Relationship Specialty Start Date End Date Blank Lemos MD PCP - General Internal Medicine 04/22/[address] [place] [address] [place] R[place] [phone] Blank Lemos MD PCP - Assigned PCP 04/25/18 10/12/[address] [place] [address] [place] [phone] Blank Lemos MD Assigned PCP 04/25/[address] [place] [address] KISHAN RENO [phone] documented as of this encounter
--- OUTSIDE RECORDS SUMMARY | 2022-06-13 09:05 | XMS_ITS | Encounter Summary ---
:1990 Author Organization [place] Address [facility] [place] [address] Care Team Providers Name Role Phone Lalita Perez MD Primary Care Provider Reason for Visit Reason Onset Date Comments Refill Request 10/18/2016 SUMATRIPTAN (IMITREX ) 25MG Encounter Details Date Type Department Care Team Description 10/18/2016 Refill [facility] Lalita Perez MD Refill Request Clinic [facility] (SUMATRIPTAN (IMITREX) [address] [facility] 25MG) [facility] [address] [place] [address] [place] [address] [phone] Social History Tobacco Use Types Packs/Day Years [...] 10/23/2016 9:09 AM CDT Prescription approved per [facility] Refill Protocol. Vandana Sosa RN Telephone Encounter - Marilee Oliva - 10/18/2016 1:53 PM CST SUMATRIPTAN (IMITREX) 25MG Last Written Prescription Date: 05/08/2016 Last Fill Quantity: 18, # refills: 1 Last Office Visit with [facility] or [facility] prescribing provider: 08/28/2016 BP Readings from Last 3 Encounters: 08/28/16 111/77 08/15/16 110/70 08/05/16 112/70 HY ASSEMBLER documented in this encounter Plan of Treatment Not on filedocumented as of this encounter Visit Diagnoses Diagnosis Other migraine without status migrainosu s, not intractable documented in this encounter Additional Health Concerns Assessment Noted Time PHQ-9 Depression Total Score: 14 04/11/2016 7:23 AM CD T documented as of this encounter Care Teams Boiler Shop Supervisor Relationship Specialty Start Date End Date Lalita Perez MD PCP - General Student in organized health 10/21/1404/21 care education/training program documented as of this encounter
--- OUTSIDE RECORDS SUMMARY | 2022-06-13 09:05 | XMS_ITS | Encounter Summary ---
:1990 Author Organization [place] Address [address] [facility] [place] [address] Care Team Providers Name Role Phone Blank Lemos MD Primary Care Provider Blank Lemos MD Unavailable Blank Lemos MD Unavailable Reason for Visit Reason Comments Urgent Care Urinary Problem possible uti; dysuria at end of urination. Was treated x 1 month ago Pharyngitis neck, throat, and ear pain Encounter Details Date Type Department Care Team Description 04/29/2018 Office Visit [facility] Phillip Crowder Dysuria (Primary Dx); Urgent Care Dev Bob PA-C Throat pain [address] [address] [place], [place] [address] [address] [place] [address] Social History Tobacco Use Types Packs/Day [...] the groin Date Last Reviewed: 08/10/2016 ?? [id number] [employer] [place] [address]. All rights reserved. This information is not [...] NEG^Negative Ketones Urine Negative NEG^Negative mg/dL Specific [place] Urine 1.010 1.003 - 1.035 Blood Urine [...] Component Value Ref Test Analysis Performed At [employer] Range Method Time Signature Specimen Midstream Urine [...] Code Phon e Number INFECTIOUS DISEASES [address] [place] [address] DIAGNOSTIC LABORATORY, [facility] INFECTIOUS DISEASE [address] [place] [address], [facility] DIAGNOSTIC LABORATORY Wet prep (04/29/2018 5:22 PM CDT) [employer] Method Time Signature Specimen Vagina [facility] Description [...] MICRO GENERAL ORDERA BLES Performing Organization Address [facility] Phon e Number [facility] [address] [place] [address] [phone] Beta strep group A culture (04/29/2018 4:22 PM CDT) Component Value Ref Test Analysis Performed At Patholo gist Range Method Time Signature Specimen Throat [facility] DEV Culture Micro No beta 04/30/2018 [facility] hemolytic 6:00 PM CDT CLINICS Streptococcus DEV Group A isolated Specimen Anatomical Collection Method Collection Time Receive d Time (Source) Location / / Volume Laterality Specimen from 04/29/2018 4:22 PM 04/29/20 18 4:24 throat CDT PM CDT (specimen) Phillip Crowder PA-C LAB - MICRO GENERAL ORDERA BLESerena Performing Organization Address [facility]/ZIP Code Phon e Number [facility] [address] [place] [phone] Strep, Rapid Screen (04/29/2018 4:05 PM CDT) Component Value Ref Test Analysis Performed At [facility] Range Method Time Signature Specimen Throat [facility] DEV Rapid Strep A NEGATIVE: No 04/29/2018 [facility] Screen Group A 4:23 PM CDT CLINICS streptococcal DEV antigen detected by immunoassay, await culture report. Specimen Anatomical Collection Method Collection Time Receive d Time (Source) Location / / Volume Laterality Specimen from 04/29/2018 4:05 PM 04/29/20 18 4:07 throat CDT PM CDT (specimen) Phillip Crowder PA-C LAB - MICRO GENERAL ORDERA BLESerena Performing Organization Address City/[facility]/ZIP Code Phon e Number [facility] [address] [place] [phone] Urine Microscopic (04/29/2018 3:45 PM [...] LAB - URINE ORDERABLES Performing Organization Address City/[facility]/ZIP Code Phon e Number [address] [address] [phone] (ABNORMAL) UA reflex to Microscopic and Culture (04/29/2018 3:45 PM CDT) Patholo gist Method Time Signature Color Urine Yellow 04/29/2018 [facility] 4:35 PM CDT CLINICS DEV Appearance Urine Clear 04/29/2018 [facility] 4:35 PM CDT CLINICS DEV Glucose Urine Negative NEG^Negat 04/29/2018 [facility] [place]elin mg/dL 4:35 PM CDT CLINICS DEV Bilirubin Urine Negative NEG^Negat 04/29/2018 [facility] [place] 4:35 PM CDT CLINICS DEV Ketones Urine Negative NEG^Negat 04/29/2018 [facility] [place] mg/dL 4:35 PM CDT CLINICS DEV Specific [place] 1.010 1.003 - 04/29/2018 [facility] Urine 1.035 4:35 PM CDT CLINICS DEV Blood Urine Negative NEG^Negat 04/29/2018 [facility] [place] 4:35 PM CDT CLINICS DEV pH Urine 6.5 5.0 - 7.0 04/29/2018 [facility] pH 4:35 PM CDT CLINICS DEV Protein Albumin Negative NEG^Negat 04/29/2018 [facility] Urine yakelin mg/dL 4:35 PM CDT CLINICS DEV Urobilinogen 0.2 0.2 - 1.0 04/29/2018 [facility] Urine EU/dL 4:35 PM CDT CLINICS DEV Nitrite Urine Negative NEG^Negat 04/29/2018 [facility] [place] 4:35 PM CDT CLINICS DEV Leukocyte Trace (A) NEG^Negat 04/29/2018 [facility] Esterase Urine yakelin 4:35 PM CDT CLINICS DEV Source Midstream 04/29/2018 [facility] Urine 3:47 PM CDT CLINICS DEV Specimen (Source) Anatomical Collection Method Collection Time Re ceived Time Location / / Volume Laterality Examination of 04/29/2018 3:45 04/29/2018 3:47 midstream urine PM CDT PM CDT specimen (procedure) Phillip Crowder PA-C LAB - URINE ORDERABLES Performing Organization Address City/State/[facility] Code Phon e Number [facility] DEV [address] [facility] [place] [address] documented in this encounter Visit Diagnoses Diagnosis Dysuria - Primary Throat pain documented in this encounter Additional Health Concerns Assessment Noted Time PHQ-9 Depression Total Score: 7 02/07/2018 7:00 AM CDT documented as of this encounter Care Teams Embedded Firmware Developer Relationship Specialty Start Date End Date Blank Lemos MD PCP - General Internal Medicine 04/22/[address] [place] [address] [place] [id number] Blank Lemos MD PCP - Assigned PCP 04/25/18 10/12/[address] [place] [address] [place] [phone] Blank Lemos MD Assigned PCP 04/25/[address] [place] [address] [place] R[place] [phone] documented as of this encounter
--- OUTSIDE RECORDS SUMMARY | 2022-06-13 09:05 | XMS_ITS | Encounter Summary ---
:1988 Author Organization [place] Address [facility] [place] [address] Care Team Providers Name Role Phone Lalita Perez MD Primary Care Provider Reason for Visit Reason Onset Date Comments Appointment 04/01/2018 scheduled for 04/08 at 2.20 pm Encounter Details Date Type Department Care Team Description 04/01/2018 Telephone [facility] Blank Lemos nt (scheduled Clinic Dev Camp MD for 04/08 at [address] [place] [address] [facility] 2.20 pm) [facility] [address] [place] [address] [place] [address] [phone] Social History Tobacco Use Types Packs/Day Years [...] PM CDT SHORT with Blank Lemos MD [facility] [address] [place] [address] [address] [facility] [address] Kristie Kapadia RN Message handled by Nurse Triage. Telephone Encounter - Blank Lemos MD - 04/05/2018 9:05 PM CDT Could see her 220pm on . Blank Lemos MD Internal Medicine/Pediatrics [facility] Telephone Encounter - Monique Leslie - [...] form?: please complete and call for picking table worker at [phone] Additional comments: please complete and call for picking table worker at [phone] Call taken on 04/01/2018 at 4:48 PM by Evelyn Olvera documented in this encounter Plan of Treatment Not on filedocumented as of this encounter Visit Diagnoses Not on filedocumented in this encounter Additional Health Concerns Assessment Noted Time PHQ-9 Depression Total Score: 7 02/07/2018 7:00 AM CDT documented as of this encounter Care Teams Security Guard Supervisor Relationship Specialty Start Date End Date Lalita Perez MD PCP - General Student in organized health 10/21/1404/21 care education/training program documented as of this encounter
--- OUTSIDE RECORDS SUMMARY | 2022-06-13 09:05 | XMS_ITS | Encounter Summary ---
:1990 Author Organization [place] Address [facility] [place] [address] Care Team Providers Name Role Phone Lalita Perez MD Primary Care Provider Reason for Visit Reason Comments Urgent Care Pharyngitis since last night, swollen, h janett to swallow, chills, OTC-advil,dayquil Ear Problem Right ear pain since last ni ght. URI nasal congestion since last night. Encounter Details Date Type Department Care Team Description 08/05/2016 Office Visit [facility] Kirill Ochoa Throat p ain (Primary Dx); Urgent Care Dev Vargas PA-C Acute otitis externa of right ear, unspe cified type [address] [place] [address] [place] [address] [place] [phone] Social History Tobacco Use Types Packs/Day Years [...] Comments Blood Pressure 112/70 08/05/2016 4:43 PM MANAGER ENGINE Pulse 80 08/05/2016 4:43 PM MANAGER ENGINE Temperature 36.8 ??C (98.2 ??F) 08/05/2016 4:43 PM MANAGER ENGINE Respiratory Rate - - Oxygen Saturation 98% 08/05/2016 4:43 PM MANAGER ENGINE Inhaled Oxygen Concentration - - Weight 89.8 kg (198 lb) 08/05/2016 4:43 PM MANAGER ENGINE Height - - Body Mass Index 33.99 04/29/2016 8:18 AM CDT documented in this encounter Patient Instructions Patient InstructionsKirill Ochoa PA-C - 08/05/2016 5:12 PM MANAGER ENGINE Images from the original note were not [...] Dry your ears with a towel or hairspring fabrication supervisor after getting wet. Also, use ear plugs [...] your health care provider ?? Seizure ?? [phone] [employer]. [address] [place] [address]. All rights reserved. This information is not [...] in??1/2 cup of warm water ?? An maok-khi-lphoraa anesthetic gargle Use Medication for More Relief Lmsf-rxt-tldqfmk medication can reduce sore throat symptoms. Ask [...] glands in the neck or jaw ?? [phone] [employer]. [address] [place] [address], [place] [address]. All rights reserved. This information is not intended as a substitute for professional medical care. Always follow your healthcare professional's instructions. GER ENGINE documented in this encounter Progress Notes Kirill [...] the next 24-48 hours after antibiotics initiated GER ENGINE documented in this encounter Nursing Notes Evelyn [...] completed using cuff size: large ISIDRO Haro GER ENGINE documented in this encounter Plan of Treatment Not on filedocumented as of this encounter Procedures Procedure Name Priority Date/Time Associated Diagnosis Comme nts RAPID STREP SCREEN Routine 08/05/2016 5:04 PM Throat pain Res ults for this THROAT SWAB MANAGER ENGINE procedure are i n the results section. BETA HEMOLYTIC Routine 08/05/2016 5:04 PM Throat pain Results for this STREP GROUP A MANAGER ENGINE procedure are in CULTURE the results section. documented in this encounter Results Beta strep group A culture (08/05/2016 5:04 PM MANAGER ENGINE) Component Value Ref Test Analysis Performed At [facility] gist Range Method Time Signature Specimen Throat [place] Description CLINICS DEV Culture Micro No Beta [place] Streptococcus CLINICS isolated DEV Micro Report FINAL 08/07/2016 [place] Status [facility] DEV Specimen Anatomical Collection Method Collection Time Receive d Time (Source) Location / / Volume Laterality 08/05/2016 5:04 PM 6 5:09 MANAGER ENGINE PM MANAGER ENGINE Kirill Ochoa PA-C LAB - MICRO [facility] [place] Performing Organization Address City/[facility]/ZIP Code Phon e Number [facility] [address] [place] [phone] Strep, Rapid Screen (08/05/2016 5:04 PM MANAGER ENGINE) Component Value Ref Test Analysis Performed At [facility] gist Range Method Time Signature Specimen Throat [facility] DEV Rapid Strep A NEGATIVE: No Group A strepto coccal antigen detected by immunoassay, await [place] Screen culture report. CLINICS DEV Micro Report FINAL 08/05/2016 [place] Status [facility] DEV Specimen Anatomical Collection Method Collection Time Receive d Time (Source) Location / / Volume Laterality Specimen from 08/05/2016 5:04 PM 08/05/20 16 5:09 throat MANAGER ENGINE PM MANAGER ENGINE (specimen) Kirill Ochoa PA-C LAB - MICRO [facility]AL [facility] Performing Organization Address City/[facility]/ZIP Code Phon e Number [facility] [address] [place] [phone] documented in this encounter Visit Diagnoses Diagnosis Throat pain - Primary Acute otitis externa of right ear, unspe cified type documented in this encounter Additional Health Concerns Assessment Noted Time PHQ-9 Depression Total Score: 14 04/11/2016 7:23 AM CD T documented as of this encounter Care Teams Casino Slot Supervisor Relationship Specialty Start Date End Date Lalita Perez MD PCP - General Student in [facility] 10/21/1404/21 care education/training program documented as of this encounter
--- OUTSIDE RECORDS SUMMARY | 2022-06-13 09:05 | XMS_ITS | Encounter Summary ---
:1990 Author Organization [place] Address [address] [place] [address] Care Team Providers Name Role Phone Blank [...] Depression Total Score: 4 09/22/2018 3:08 PM DIRECTOR ENTERPRISE SYSTEMS documented as of this encounter Care Teams Fbi Special Agent Relationship Specialty Start Date End Date Blank Lemos MD PCP - General Internal Medicine 04/22/[address] [place] [address] [place] [phone] Blank Lemos MD PCP - Assigned PCP 04/25/18 10/12/[address] [place] [address] [place] [phone] Blank Lemos MD Assigned PCP 04/25/[address] [place] [address] [place] [phone] documented as of this encounter
--- OUTSIDE RECORDS SUMMARY | 2022-06-13 09:05 | XMS_ITS | Encounter Summary ---
:1990 Author Organization [place] Address [facility] [place] [address] Care Team Providers Name Role Phone Blank Lemos MD Primary Care Provider Blank Lemos MD Unavailable Blank Lemos MD Unavailable Reason for Visit Reason Onset Date Comments Refill Request 09/01/2018 topiramate (TOPAMAX) 100 MG tablet Encounter Details Date Type Department Care Team Description 09/01/2018 Refill [facility] Serum, Lily Refill [facility] Dev Reyes MD (topiramate (TOPAMAX) [address] [facility] 100 MG ta blet) [facility] [address] 8[address] [facility] [place] [phone] [place] [address] (Wo rk) Social History Tobacco [...] Ana Maria Daniels MA 11:11 AM 09/02/2018 AL ECOLOGIST Telephone Encounter - Lily Mann RN - 09/02/2018 7:54 AM ANIMAL ECOLOGIST 30 day supply given. Patient is due for yearly physical and lab work. Please call and assist with scheduling appointment prior to next refill Lily Donohue RN - [facility] AL ECOLOGIST Telephone Encounter - HollyFaiza - 09/01/2018 1:24 [...] No positive test in last 12 months AL ECOLOGIST documented in this encounter Plan of Treatment [...] as of this encounter Care Teams Casino Floor Supervisor Relationship Specialty Start Date End Date Blank Lemos MD PCP - General Internal Medicine 04/22/[address] [place] [address] [place] [phone] Blank Lemos MD PCP - Assigned PCP 04/25/18 10/12/[address] [place] [address] [place] [phone] Blank Lemos MD Assigned PCP 04/25/[address] [place] [address] [place] [phone] documented as of this encounter
--- OUTSIDE RECORDS SUMMARY | 2022-06-13 09:05 | XMS_ITS | Encounter Summary ---
:1990 Author Organization [place] Address [facility] [place] [facility] [place] [address] Care Team Providers Name Role Phone Lalita Perez MD Primary Care Provider Reason for Visit Reason Comments Abnormal Bleeding Problem Encounter Details Date Type Department Care Team Description 01/28/2017 Office Visit [facility] [place], Abnormal u terine and vaginal bleeding, unspecified (Primary Dx); Clinic Dev Weinberg MD Cyst of ovary, unspecified laterality; [address] [place] [address] [facility] Migra ine without aura and without status migrainosus, not intractable [facility] [address] [place] [address] [place] [phone] Social History Tobacco Use [...] in a while. Surgery for endometriosis in [phone]. Ultrasounds very frequently to follow frequent ovarian [...] Per Care Everywhere, has 2 pelvic US. [id number], showed left cyst. In 2010, no cyst. [...] with acetaminophen if possible. Sultana Fonseca MD [facility] DEV I discussed this case [...] 27 ug/L [facility] Comment: Reference ranges apply to non-p regnant females only. Specimen Anatomical Collection Method Collection Time Receive d Time (Source) Location / / Volume Laterality Blood specimen 01/28/2017 9:12 AM 017 9:17 (specimen) CDT AM CDT Lily Encarnacion MD LAB - BLOOD ORDERABLES Performing Organization Address City/[facility]/ZIP Code Phon e Number [facility] [address] [place] [address] [facility] TSH with free T4 reflex (01/28/2017 9:12 AM CDT) athologist Signature TSH 1.52 0.40 - 4.00 [facility] mU/L [facility] Specimen Anatomical Collection Method Collection Time Receive d Time (Source) Location / / Volume Laterality Blood specimen 01/28/2017 9:12 AM 017 9:17 (specimen) CDT AM CDT Lily Encarnacion MD LAB - BLOOD ORDERABLES Performing Organization Address City/[facility]/ZIP Code Phon e Number [facility] [address] [place] [address] Hemoglobin A1c (01/28/2017 9:12 AM CDT) athologist Signature Hemoglobin A1C 5.0 4.3 - 6.0 [facility] Specimen Anatomical Collection Method Collection Time Receive d Time (Source) Location / / Volume Laterality Blood specimen 01/28/2017 9:12 AM 017 9:17 (specimen) CDT AM CDT Lily Encarnacion MD LAB - BLOOD ORDERABLES Performing Organization Address City/[facility]/ZIP Code Phon e Number [address] [phone] Hemoglobin (01/28/2017 9:12 AM CDT) athologist Signature Hemoglobin 13.5 11.7 - 15.7 [place] g/dL [facility] Specimen Anatomical Collection Method Collection Time Receive d Time (Source) Location / / Volume Laterality Blood specimen 01/28/2017 9:12 AM 017 9:17 (specimen) CDT AM CDT Lily Encarnacion MD LAB - BLOOD ORDERABLES Performing Organization Address City/[facility]/ZIP Code Phon e Number [address] [phone] documented in this encounter Visit [...] documented as of this encounter Care Teams Warehouse Technician Relationship Specialty Start Date End Date Lalita Perez MD PCP - General Student in [facility] [employer] [facility] health 10/21/1404/21 care education/training program documented as of this encounter
--- OUTSIDE RECORDS SUMMARY | 2022-06-13 09:06 | XMS_ITS | Encounter Summary ---
:1990 Author Organization [place] Address [address] [place] [address] Care Team Providers Name Role Phone Lalita Perez MD Primary Care Provider Reason for Visit Reason Comments Headache Contraception Encounter Details Date Type Department Care Team Description 06/16/2016 Office Visit [facility] Blank Lemos Encounter for surveillance of other contraceptive (Primary Dx); Dev Camp MD Migraine without aura and without status migrainosus, not intractable [address] [place] [address] [place] [address] [facility] [phone] [place] [address] Social History Tobacco Use [...] Comments Blood Pressure 106/76 06/16/2016 8:24 AM DECORATIVE ENGRAVER Pulse 86 06/16/2016 8:24 AM DECORATIVE ENGRAVER Temperature 37.1 ??C (98.8 ??F) 06/16/2016 8:24 AM DECORATIVE ENGRAVER Respiratory Rate - - Oxygen Saturation 98% 06/16/2016 8:24 AM DECORATIVE ENGRAVER Inhaled Oxygen Concentration - - Weight 89.8 kg (198 lb) 06/16/2016 8:24 AM DECORATIVE ENGRAVER Height - - Body Mass Index 33.99 04/29/2016 8:18 AM CDT documented in this encounter Patient Instructions Patient InstructionsBlank Lemos MD - 06/16/2016 8:39 AM CST Follow instructions carefully for topamax. RATIVE ENGRAVER documented in this encounter Progress Notes Blank [...] instructions carefully for topamax. Blank Lemos MD [facility]AN RATIVE ENGRAVER documented in this encounter Nursing Notes Maria [...] kg). BP completed using cuff size: regular RATIVE ENGRAVER documented in this encounter Plan of Treatment [...] as of this encounter Care Teams Water Systems Engineer Relationship Specialty Start Date End Date Lalita Perez MD PCP - General Student in [facility] health 10/21/1404/21 care education/training program documented as of this encounter
--- OUTSIDE RECORDS SUMMARY | 2022-06-13 09:06 | XMS_ITS | Encounter Summary ---
:1990 Author Organization [place] Address [facility] [place] [address] Care Team Providers Name Role Phone Lalita Perez MD Primary Care Provider Reason for Visit Reason Onset Date Comments Chest Pain 07/28/2016 Encounter Details Date Type Department Care Team Description 07/28/2016 Telephone [facility] Taylor Perez MD Chest Pain [facility] [address] [facility] [address] [place] [address] [address] [place] [address] [place] [phone] Social History Tobacco Use Types Packs/Day Years [...] new symptoms develop, call your PCP or [facility] as soon as possible. Guideline used: Telephone Triage Protocols for Nurses, ? Billy, UNRULY Butcher RN DINATOR CARDIOPULMONARY SERVICES documented in this encounter Plan of Treatment Not on filedocumented as of this encounter Visit Diagnoses Not on filedocumented in this encounter Additional Health Concerns Assessment Noted Time PHQ-9 Depression Total Score: 14 04/11/2016 7:23 AM CD T documented as of this encounter Care Teams Digital Tech Relationship Specialty Start Date End Date Lalita Perez MD PCP - General Student in [facility] 10/21/1404/21 care education/training program documented as of this encounter
--- OUTSIDE RECORDS SUMMARY | 2022-06-13 09:06 | XMS_ITS | Encounter Summary ---
:1990 Author Organization [place] Address [facility] [place] [address] Care Team Providers Name Role Phone Lalita Perez MD Primary Care Provider Encounter Details Date Type Department Care Team Description 04/09/2015 Orders Only [facility] Eag an Routine general medical [address] [place] [address] care facility [phone] Social History Tobacco Use Types Packs/Day Years [...] athologist Signature Cholesterol 210 (H) <200 mg/dL [facility] Comment: LDL Cholesterol is the primary guide to therapy. The NCEP recommends further evaluation of: patients with cholesterol greater than 200 mg/dL if additional risk facto rs are present, cholesterol greater than 240 mg/dL, triglycerides greater than 1 50 mg/dL, or HDL less than 40 mg/dL. Triglycerides 234 (H) 0 - 150 mg/dL [facility] HDL Cholesterol 50 (L) >50 mg/dL [facility] LDL Cholesterol Calculated 113 0 - 129 mg/dL [facility] Comment: LDL Cholesterol is the primary guide to therapy: LDL-cholesterol goal in high risk patients is <100 mg/dL and in very high risk patients is <70 mg/dL. VLDL-Cholesterol 47 (H) 0 - 30 mg/dL [place] Federico [facility] Cholesterol/HDL Ratio 4.2 0.0 - 5.0 [facility] Specimen Anatomical Collection Method Collection Time Receive d Time (Source) Location / / Volume Laterality Blood specimen 04/09/2015 8:24 AM 015 8:29 (specimen) CDT AM CDT Lalita Perez MD LAB - BLOOD ORDERABLES Performing Organization Address City/State/ZIP Code Phon e Number [facility] [address] [place] [address] Glucose (04/09/2015 8:24 AM CDT) athologist Signature Glucose 87 70 - 99 [facility] mg/dL [facility] Specimen Anatomical Collection Method Collection Time Receive d Time (Source) Location / / Volume Laterality Blood specimen 04/09/2015 8:24 AM 015 8:29 (specimen) CDT AM CDT Lalita Perez MD LAB - BLOOD ORDERABLES Performing Organization Address City/State/ZIP Code Phon e Number [facility] [address] [place] [address] documented in this encounter Visit Diagnoses Diagnosis Routine general medical examination at a health care facility documented in this encounter Care Teams Campus Chaplain Relationship Specialty Start Date End Date Lalita Perez MD PCP - General Student in [facility] health 10/21/1404/21 care education/training program documented as of this encounter
--- OUTSIDE RECORDS SUMMARY | 2022-06-13 09:06 | XMS_ITS | Encounter Summary ---
:1990 Author Organization [place] Address [address] [facility] [place] [address] Care Team Providers Name Role Phone Lalita Perez MD Primary Care Provider Reason for Visit Reason Comments Urgent Care Sinus Problem sinus pain, bilat ear pain, [place] green phlegm, HARPER, ST, PND x 6 days OTC: sinus, nyquil, dayquil Encounter Details Date Type Department Care Team Description 12/04/2015 Office Visit [facility] Phillip Crowder Otbing r acute Care IRENE Bob nonsuppurative otitis [address] [place] [address] S (Primary Dx) [phone] [place], [place] [id number] Social History Tobacco Use Types Packs/Day Years [...] Body Mass Index 30.88 10/02/2015 5:21 PM PERL PROGRAMMER documented in this encounter Progress Notes Arianna [...] Sinus Problem sinus pain, bilat ear pain, [place] green phlegm, HARPRE, ST, PND x 6 days OTC: sinus, [...] Primary documented in this encounter Care Teams Mechanical Test Engineer Relationship Specialty Start Date End Date Lalita Perez MD PCP - General Student in [employer] 10/21/1404/21 care education/training program documented as of this encounter
--- OUTSIDE RECORDS SUMMARY | 2022-06-13 09:06 | XMS_ITS | Encounter Summary ---
:1990 Author Organization [place] Address [address] [place] [address] Care Team Providers Name Role Phone Lalita Perez MD Primary Care Provider Reason for Visit Reason Onset Date Comments Nurse Advice Line 07/17/2016 Encounter Details Date Type Department Care Team Description 07/17/2016 Telephone [facility] E[facility] Lalita Toledo MD Nurse Advice Line [address] [facility] [place] [phone] [address] [facility] [phone] [facility] [place] [address] (Wo rk) [...] Brii Odonnell RN - 07/17/2016 3:46 PM PRINTED CIRCUIT BOARDS LAMINATOR Wondering if having flu or s/e of [...] beverages. Increase rest. May try OTC acid brands editor (Zantac or omeprazole). Monitor over the weekend if no improvement may be seen in clinic or UC if sx worsen. Pt. Verbalized understanding. Brii Odonnell RN, BSN, PHN TED CIRCUIT BOARDS LAMINATOR documented in this encounter Plan of Treatment Not on filedocumented as of this encounter Visit Diagnoses Not on filedocumented in this encounter Additional Health Concerns Assessment Noted Time PHQ-9 Depression Total Score: 14 04/11/2016 7:23 AM CD T documented as of this encounter Care Teams Medical Concierge Relationship Specialty Start Date End Date Lalita Perez MD PCP - General Student in organized health 10/21/1404/21 care education/training program documented as of this encounter
--- OUTSIDE RECORDS SUMMARY | 2022-06-13 09:06 | XMS_ITS | Encounter Summary ---
:1990 Author Organization [place] Address Count includes the [facility] [place] [address] Care Team Providers Name Role Phone Lalita Perez MD Primary Care Provider Reason for Visit Reason Comments Sinus Problem Encounter Details Date Type Department Care Team Description 04/29/2016 Office Visit [facility] Gonzalo Yang MD Acute suppurative otitis media of right ear without spontaneous rupture of tympanic membrane, recurrence not specified (Primary Dx); Dev [address] [facility] Acute non-recurrent maxillar y sinusitis; [address] [facility] [place] [address] [place] [address] Social History Tobacco Use [...] of tympanic membrane, recurrence not specified - [facility] Acute non-recurrent maxillary sinusitis Cough documented in this encounter Additional Health Concerns Assessment Noted Time PHQ-9 Depression Total Score: 14 04/11/2016 7:23 AM CD T documented as of this encounter Care Teams Riding Double Relationship Specialty Start Date End Date Lalita Perez MD PCP - General Student in organized health 10/21/1404/21 care education/training program documented as of this encounter
--- OUTSIDE RECORDS SUMMARY | 2022-06-13 09:06 | XMS_ITS | Encounter Summary ---
:1990 Author Organization [place] Address [facility] [place] [address] Care Team Providers Name Role Phone Lalita Perez MD Primary Care Provider Reason for Visit Reason Comments Hemoptysis Encounter Details Date Type Department Care Team Description [facility] [address] [place] [address] [place] [address] [id number] Hemoptysis; [facility] Emergency [facility] Kyleigh Sandoval MD [facility] [address] [place], [place] [id number] Upper respiratory tract infection, unspe cified type [address] [place] [address] Social History Tobacco Use Types Packs/Day Years [...] help loosen secretions in the lungs. ?? Flug-bye-xeuoerc cough medicines that contain dextromethorphan may help [...] Rapid heartbeat ?? Weakness or dizziness ?? [phone] [employer] ([place]). [address] [place] [address]. All rights reserved. This information is not [...] and the provider's statements to me. 04/19/2016 [facility] EMERGENCY DEPARTMENT Kyleigh Sandoval MD [...] Basic metabolic panel (04/19/2016 9:25 PM CDT) [facility] Method Time Signature Sodium 142 133 - 144 [facility] mmol/L [facility] Potassium 3.8 3.4 - 5.3 [facility] mmol/L [facility] Chloride 110 (H) 94 - 109 [facility] mmol/L [facility] Carbon Dioxide 27 20 - 32 [facility] mmol/L [facility] Anion Gap 5 3 - 14 [facility] mmol/L [facility] Glucose 79 70 - 99 [place] mg/dL [facility] Urea Nitrogen 8 7 - 30 [facility] mg/dL [facility] Creatinine 0.64 0.52 - [facility] 1.04 [facility] mg/dL HOSPITAL GFR Estimate >90 >60 [place] Non GFR Calc mL/min/1. [facility] 7m2 HOSPITAL GFR Estimate >90 >60 [place] If Black GFR Calc mL/min/1. [facility] 7m2 HOSPITAL Calcium 8.8 8.5 - [place] 10.1 [facility] mg/dL HOSPITAL Specimen Anatomical Collection Method Collection Time Receive d Time (Source) Location / / Volume Laterality Blood specimen 04/19/2016 9:25 PM 016 9:28 (specimen) CDT PM CDT Kyleigh Sandoval MD LAB - BLOOD ORDERABLES Performing Organization Address City/State/ZIP Code Phon e Number [place] [address] [place] [address] [facility] [address] [phone] CBC + differential (04/19/2016 9:25 PM CDT) [facility] gist Method Time Signature WBC 9.2 4.0 - [place] 11.0 [facility] 10e9/L [facility] RBC Count 4.24 3.8 - 5.2 [place] 10e12/L [facility] Hemoglobin 13.2 11.7 - [place] 15.7 g/dL [facility] Hematocrit 38.5 35.0 - [place] 47.0 % [facility] MCV 91 78 - 100 [place] fl [facility] MCH 31.1 26.5 - [place] 33.0 pg [facility] MCHC 34.3 31.5 - [place] 36.5 g/dL [facility] RDW 12.5 10.0 - [place] 15.0 % [facility] Platelet Count 429 150 - 450 [place] 10e9/L [facility] Diff Method Automated [place] Method [facility] % Neutrophils 42.4 % [facility] % Lymphocytes 46.3 % [facility] % Monocytes 6.9 % [facility] % Eosinophils 3.7 % [facility] % Basophils 0.5 % [facility] % Immature 0.2 % [place] Granulocytes [facility] Nucleated RBCs 0 0 /100 [facility] Absolute 3.9 1.6 - 8.3 [place] Neutrophil 10e9/L [facility] Absolute 4.3 0.8 - 5.3 [place] Lymphocytes 10e9/L [facility] Absolute 0.6 0.0 - 1.3 [place] Monocytes 10e9/L [facility] Absolute 0.3 0.0 - 0.7 [place] Eosinophils 10e9/L [facility] Absolute 0.1 0.0 - 0.2 [place] Basophils 10e9/L [facility] Abs Immature 0.0 0 - 0.4 [place] Granulocytes 10e9/L [facility] Absolute 0.0 [place] Nucleated RBC [facility] Specimen Anatomical Collection Method Collection Time Receive d Time (Source) Location / / Volume Laterality Blood specimen 04/19/2016 9:25 PM 016 9:28 (specimen) CDT PM CDT Kyleigh Sandoval MD LAB - BLOOD ORDERABLES Performing Organization Address [facility] [address]/[facility] Phon e Number [place] [phone] [place] [phone] D dimer quantitative (04/19/2016 9:25 PM CDT) athologist Signature D Dimer 0.5 0.0 - 0.50 [facility] ug/ml [facility] Comment: This D-dimer assay is intended for use i n conjuntion with a clinical pretest probability assessment model to exclude pulmonary embolism (PE) and as an aid in the diagnosis of deep venous thrombo sis (DVT) in outpatients suspected of PE or DVT. The cut-off value is 0.5??g/mL [facility]. Specimen Anatomical Collection Method Collection Time Receive d Time (Source) Location / / Volume Laterality Blood specimen 04/19/2016 9:25 PM 016 9:28 (specimen) CDT PM CDT Kyleigh Sandoval MD LAB - BLOOD ORDERABLES Performing Organization Address City/[facility] [address]/[facility] Phon e Number M [facility] [address] [place], [place] [address] [address] [phone] documented in this encounter Visit Diagnoses Diagnosis Hemoptysis Upper respiratory tract infection, unspe cified type documented in this encounter Additional Health Concerns Assessment Noted Time PHQ-9 Depression Total Score: 14 04/11/2016 7:23 AM CD T documented as of this encounter Care Teams Hospitality Manager Relationship Specialty Start Date End Date Lalita Perez MD PCP - General Student in [facility] health 10/21/1404/21 care education/training program documented as of this encounter
--- OUTSIDE RECORDS SUMMARY | 2022-06-13 09:06 | XMS_ITS | Encounter Summary ---
:1990 Author Organization [place] Address [address] [place] [address] Care Team Providers Name Role Phone Lalita Perez MD Primary Care Provider Reason for Visit Reason Comments Anxiety Encounter Details Date Type Department Care Team Description 02/20/2015 Office Visit [facility] Aleksander Mercado (H) (Primary Dx); Dev Higgins MD GABRIEL (generalized anxiety disorder); [address] [place] [address] [place]én[place] [address] [facility] [phone] [place]ÉN[place] [address] Social History Tobacco Use [...] you feel ready to sleep. Published by [employer]. This content is reviewed periodically and is subject to change as new health information becomes available. The information is intended to inform and educate and is not a replacement for medical evaluation, advice, diagnosis or treatment by a healthcare professional. Developed by Blossom Law RN, AR, and [facility]. ? 2009 [facility] and/or its affiliates. All Rights Reserved. [...] education information is given-insomnia Aleksander Mercado MD [facility] documented in this encounter Plan of [...] Comprehensive metabolic panel (02/20/2015 11:19 AM CDT) [facility] Method Time Signature Sodium 140 133 - 144 [place] mmol/L [facility] Potassium 4.0 3.4 - 5.3 [facility] mmol/L [facility] Chloride 107 94 - 109 [place] mmol/L [facility] Carbon Dioxide 27 20 - 32 [place] mmol/L [facility] Anion Gap 6 3 - 14 [place] mmol/L [facility] Glucose 87 70 - 99 [place] mg/dL [facility] Urea Nitrogen 11 7 - 30 [place] mg/dL [facility] Creatinine 0.72 0.52 - [facility] 1.04 CLINICS mg/dL [facility] GFR Estimate >90 >60 [place] Non GFR Calc mL/min/1. CLINICS 7m2 [facility] GFR Estimate If >90 >60 [place] Black GFR Calc mL/min/1. CLIN ICS 7m2 [facility] Calcium 9.0 8.5 - [facility] 10.1 [facility] mg/dL [facility] Bilirubin Total 0.2 0.2 - 1.3 [place] mg/dL [facility] Albumin 3.5 3.4 - 5.0 [place] g/dL [facility] Protein Total 7.0 6.8 - 8.8 [place] g/dL [facility] Alkaline 88 40 - 150 [place] Phosphatase U/L [facility] ALT 21 0 - 50 [place] U/L [facility] AST 11 0 - 45 [place] U/L [facility] Specimen Anatomical Collection Method Collection Time Receive d Time (Source) Location / / Volume Laterality Blood specimen 02/20/2015 11:19 5 (specimen) AM CDT 11:20 AM CDT Aleksander Mercado MD LAB - BLOOD ORDERABLES Performing Organization Address City/State/ZIP Code Phon e Number [facility] [address] [place] [address] CBC with platelets differential (02/20/2015 11:19 AM CDT) [facility] gist Method Time Signature WBC 10.3 4.0 - [facility] 11.0 [facility] 10e9/L DEV RBC Count 4.12 3.8 - 5.2 [place] 10e12/L [facility] DEV Hemoglobin 12.8 11.7 - [facility] 15.7 g/dL [facility] Hematocrit 38.3 35.0 - [facility] 47.0 % CLINICS DEV MCV 93 78 - 100 [place] fl [facility]INICS DEV MCH 31.1 26.5 - [facility] 33.0 pg [facility]INICS DEV MCHC 33.4 31.5 - [facility] 36.5 g/dL [facility] RDW 12.1 10.0 - [facility] 15.0 % [facility] Platelet Count 409 150 - 450 [place] 10e9/L [facility] Diff Method Automated [place] Method [facility] % Neutrophils 54.8 % [facility]3] DEV % Lymphocytes 37.4 % [facility]3] DEV % Monocytes 5.7 % [facility]3] DEV % Eosinophils 1.9 % [facility]3] DEV % Basophils 0.2 % [facility]3] DEV Absolute 5.6 1.6 - 8.3 [place] Neutrophil 10e9/L CLINICS DEV Absolute 3.8 0.8 - 5.3 [place] Lymphocytes 10e9/L CLINICS DEV Absolute 0.6 0.0 - 1.3 [place] Monocytes 10e9/L CLINICS DEV Absolute 0.2 0.0 - 0.7 [place] Eosinophils 10e9/L [facility] DEV Absolute 0.0 0.0 - 0.2 [place] Basophils 10e9/L [facility] DEV Specimen Anatomical Collection Method Collection Time Receive d Time (Source) Location / / Volume Laterality Blood specimen 02/20/2015 11:19 02/20/ 5 (specimen) AM CDT 11:20 AM CDT Aleksander Mercado MD LAB - BLOOD ORDERABLES Performing Organization Address City/State/ZIP Code Phon e Number [facility]3] DEV [address] [place] [address] documented in this encounter Visit Diagnoses Diagnosis Bipolar I disorder (H) - Primary Bipolar I disorder, most recent episode (or current) unspecified GABRIEL (generalized anxiety disorder) Generalized anxiety disorder Insomnia Insomnia, unspecified documented in this encounter Care Teams Area Relief Pilot Relationship Specialty Start Date End Date Lalita Perez MD PCP - General Student in [facility] health 10/21/1404/21 care education/training program documented as of this encounter
--- OUTSIDE RECORDS SUMMARY | 2022-06-13 09:06 | XMS_ITS | Encounter Summary ---
:1990 Author Organization [place] Address [address] [place] [address] Care Team Providers Name Role Phone Joseph Montague MD Primary Care Provider Reason for Visit Reason Comments Physical Encounter Details Date Type Department Care Team Description 04/05/2015 Office Visit [facility] Joseph Montague MD Routine general medical examination at a health care facility (Primary Dx); [facility] - GABRIEL (generalized anxiety dis order); [address] [employer] [facility] [place] Contraceptive management [place] [address] [facility] [phone] [facility] [place] [address] Social History Tobacco [...] this encounter Patient Instructions Patient InstructionsKiersten Oliveira, GENERAL ENGINEERING TEACHER - 04/05/2015 3:22 PM CDT We treva [...] HDL, LDL, TRIG, CHOLHDLRATIO in the last 86115 hours. Reviewed orders with patient. Reviewed health maintenance and updated orders accordingly - Yes Mammo Decision Support: Mammogram not appropriate for this patient based on age. Last Mammo:No results found. History of abnormal Pap smear: NO - age 21-29 PAP every 3 years recommended All Histories reviewed and updated in [facility]. Past Medical History Diagnosis Date ??? Generalized [...] D/w Dr. Mccormick, attending Joseph Montague MD [facility]RIST[facility] documented in this encounter Nursing Notes [...] Cholesterol 210 (H) <200 mg/dL [facility] Comment: LDL Cholesterol is the primary guide to therapy. The NCEP recommends further evaluation of: patients with cholesterol greater than 200 mg/dL if additional risk facto rs are present, cholesterol greater than 240 mg/dL, triglycerides greater than 1 50 mg/dL, or HDL less than 40 mg/dL. Triglycerides 234 (H) 0 - 150 mg/dL [facility] HDL Cholesterol 50 (L) >50 mg/dL [facility] LDL Cholesterol Calculated 113 0 - 129 mg/dL [facility] Comment: LDL Cholesterol is the primary guide to therapy: LDL-cholesterol goal in high risk patients is <100 mg/dL and in very high risk patients is <70 mg/dL. VLDL-Cholesterol 47 (H) 0 - 30 mg/dL [facility] Cholesterol/HDL Ratio 4.2 0.0 - 5.0 [facility] Specimen Anatomical Collection Method Collection Time Receive d Time (Source) Location / / Volume Laterality Blood specimen 04/09/2015 8:24 AM 015 8:29 (specimen) CDT AM CDT Jospeh Montague MD LAB - BLOOD ORDERABLES Performing Organization Address City/[facility]/ZIP Code Phon e Number [facility] [address] [place] [address] Glucose (04/09/2015 8:24 AM CDT) P athologist Signature Glucose 87 70 - 99 [facility] mg/dL [facility] Specimen Anatomical Collection Method Collection Time Receive d Time (Source) Location / / Volume Laterality Blood specimen 04/09/2015 8:24 AM 015 8:29 (specimen) CDT AM CDT oJseph Montague MD LAB - BLOOD ORDERABLES Performing Organization Address City/[facility]/ZIP Code Phon e Number [facility] [address], [place] [address] PAP IMAGED THIN LAYER SCREEN (04/05/2015 12:00 AM CDT) Component Value Ref Test Analysis Performed At [facility] gist Range Method Time Signature PAP NIL COPATH Copath Report COPATH Patient Name: RENA RESENDIZ MR#: [id number] Specimen #: [id number] Collected: 04/05/2015 Received: 04/06/2015 Reported: 04/09/2015 13:57 [...] CESARIO Pride (ASCP) Processed and screened at [facility] Ce randal Counts Include 234 Beds At [facility] CLINICAL HISTORY: Papanicolaou Test Limitations: ??Cervical cytology is a scre ening test with limited sensitivity; regular screening is critical for cancer prevention; Pap tests are primarily effective for the diagnosis/prevention of squamous cell carcinoma, not adenoca rcinomas or other cancers. TESTING LAB LOCATION: [address] ??[id number] COLLECTION SITE: Client: ??[facility] Location: [facility] (R) Specimen (Source) Anatomical [...] management documented in this encounter Care Teams Materials Engineering Technician Relationship Specialty Start Date End Date Joseph Montague MD PCP - General Student in organized health 10/21/1404/21 care education/training program documented as of this encounter
--- OUTSIDE RECORDS SUMMARY | 2022-06-13 09:06 | XMS_ITS | Encounter Summary ---
:1990 Author Organization [place] Address [address] [place] [address] Care Team Providers Name Role Phone Lalita Perez MD Primary Care Provider Reason for Visit Reason Onset Date Comments Refill Request 07/10/2016 Encounter Details Date Type Department Care Team Description 07/10/2016 Refill [facility] Lalita Toledo MD Refill Request [address] CLINICS - [place] [phone] 2919 [facility] [phone] [facility] [place] [phone] (Wo rk) Social [...] Kristie Kapadia RN - 07/10/2016 12:32 PM SERVICE CAR DRIVER topamax Last Written Prescription Date: 06/16/16 Last Fill Quantity: 70, # refills: 0 Last Office Visit with [facility] or [facility] prescribing provider: 06/16/16 BP Readings from [...] 70 tablet; Refill: 0 Prescription approved per [facility] Refill Protocol. Kristie Kapadia RN Message handled by Nurse Triage. ICE CAR DRIVER documented in this encounter Plan of [...] documented as of this encounter Care Teams Newspaper Distributor Supervisor Relationship Specialty Start Date End Date Lalita Perez MD PCP - General Student in [employer] health 10/21/1404/21 care education/training program documented as of this encounter
--- OUTSIDE RECORDS SUMMARY | 2022-06-13 09:06 | XMS_ITS | Encounter Summary ---
:1990 Author Organization [place] Address [address] [place] [address] Care Team Providers Name Role Phone Lalita Perez MD Primary Care Provider Reason for Referral Mental Health Outpatient - Closed Specialty Diagnoses / Procedures Referred By Contact Refer red To Contact Diagnoses Bipolar I disorder (H) Aleksander Mercado MD [facility] [address] [place] [address] [place] [phone] Referral ID Status Reason Start Date Expiration Date Visits Requ ested Visits Authorized [id number] Closed 2015 07/15/2015 1 1 Reason for Visit Reason Comments Anxiety Encounter Details Date Type Department Care Team Description 2015 Office Visit [facility] Aleksander Mercado Bipolar I d isorder (H) (Primary Dx); Dev Higgins MD GABRIEL (generalized anxiety disorder); [address] [employer] [address] [place] [address] Contraceptive management KISH[place] Mén[place] [phone] [facility] [phone] K[place] MÉNDE[place] [address] Social History Tobacco Use [...] Last PHQ-9 score on record= PHQ-9 SCORE ([facility] 2015 Total Score 25 ?? Amount of [...] for annual and pap Aleksander Mercado MD [facility] documented in this encounter Plan of Treatment Scheduled Referrals Name Type Priority Associated Diagnoses Order S [facility] MENTAL HEALTH REFERRAL Referral Routine Bipolar I disorder (H) Ordered: 2015 documented as of this encounter Visit Diagnoses Diagnosis Bipolar I disorder (H) - Primary Bipolar I disorder, most recent episode (or current) unspecified GABRIEL (generalized anxiety disorder) Generalized anxiety disorder Contraceptive management Unspecified contraceptive management documented in this encounter Care Teams Weatherization Technician Relationship Specialty Start Date End Date Lalita Perez MD PCP - General Student in [facility] health 10/21/1404/21 care education/training program documented as of this encounter
--- OUTSIDE RECORDS SUMMARY | 2022-06-13 09:06 | XMS_ITS | Encounter Summary ---
:1990 Author Organization [place] Address [address] [place] [address]. [place] [address] Care Team Providers Name Role Phone Lalita Perez MD Primary Care Provider Reason for Referral Mental Health Outpatient - Closed Specialty Diagnoses / Procedures Referred By Contact Refer red To Contact Diagnoses Bipolar I disorder (H) Generalized anxiety disorder Blank Damon NON [facility] KIDS ACTIVITIES COACH REGISTERED SALES ASSISTANT [address] [place] [address] [place] [phone] [place]ÉNDE[place] [id number] Referral ID Status Reason Start Date Expiration Date Visits Requ ested Visits Authorized [id number] Closed 04/10/2016 04/10/2017 1 1 Reason for Visit Reason Comments Physical Recheck Medication Encounter Details Date Type Department Care Team Description 04/10/2016 Office Visit [facility] Blank Damon hesohan lt maintenance (Primary Dx); Dev Stanley APRN Non morbid obesity, unspecif ied obesity type; [address] [facility] KAILEE Encounter for surveillance of other cont raceptive; [place]én[place] [phone] [place] [address] Generalized anxiety disorder ; [phone] FERNANDO RICE Bipolar I disorder (H); [place] [id number] Tobacco abuse; [phone] Need for vaccin ation; (Work) Stomach upset [...] this encounter Progress Notes Blank Damon APRN REGISTERED SALES ASSISTANT - 04/10/2016 2:48 PM CDT SUBJECTIVE: CC: [...] recommended All Histories reviewed and updated in [facility]. ROS: C: NEGATIVE for fever, [...] Allergies, and Medical/Social/Surgical histories reviewed in [facility] andupdated as appropriate. OBJECTIVE: BP 102/58 mmHg [...] tablet; Refill: 2 -Recommended she f/u with [facility], where she is already established. -Increase [...] Lung CA Screening Blank Damon APRN CNP [facility] documented in this encounter Nursing Notes Rhianna [...] Name Type Priority Associated Diagnoses Order S [facility] MENTAL HEALTH REFERRAL Referral Routine Bipolar [...] documented as of this encounter Care Teams Drill Sergeant Relationship Specialty Start Date End Date Lalita Perez MD PCP - General Student in organized health 10/21/1404/21 care education/training program documented as of this encounter
--- OUTSIDE RECORDS SUMMARY | 2022-06-13 09:06 | XMS_ITS | Encounter Summary ---
:1990 Author Organization [place] Address [address] [place] [address] Care Team Providers Name Role Phone Lalita Perez MD Primary Care Provider Reason for Visit Reason Comments Cough x 10 days cough. states in t he last 2 days been coughing up clear mucus with blood in it. Encounter Details Date Type Department Care Team Description 04/19/2016 Office Visit [place] [facility] Richard Huntley, Blood in sputum Care (Primary Dx) [facility] [facility] [place] [address] [facility] [phone] [facility] [address] [place] [phone] (Wo rk) Social History Tobacco Use [...] Huntley MD - 04/19/2016 8:27 PM CDT [facility] Richard Huntley MD, MPH 04/19/2016 History: Rena Turner is a pleasant 26 year old year old female with a chief complaint of cough ,dyspneax 2 days. She states that she has noted blood in the sputum that she expectorates. No fever or chills. No night sweats or chills. No weight loss. No active TB in immediate personal investment adviser is referred. No recent surgery or distant travel or immobilization is referred. No FH or personal HX of arterial orvenous thrombosis is referred. She has been on BCP x 8 years. NOT on any anticoagulant. No Hx of bleeding tendency or easy bruisability. No smoking history. Assessment and Plan: Cough,dyspnea and blood in sputum: The [facility] and management. The patient agrees w this plan. I spoke w Dr. Dunn at [facility] regarding the patient by phone this [...] as of this encounter Care Teams Inspector Coated Fabrics Relationship Specialty Start Date End Date Lalita Perez MD PCP - General Student in [employer] 10/21/1404/21 care education/training program documented as of this encounter
--- OUTSIDE RECORDS SUMMARY | 2022-06-13 09:06 | XMS_ITS | Encounter Summary ---
:1990 Author Organization [facility] Address [address] [place] [address] Care Team Providers Name Role Phone Lalita Perez MD Primary Care Provider Reason for Visit Reason Onset Date Comments Call Back 05/05/2016 Encounter Details Date Type Department Care Team Description 05/05/2016 Telephone [facility] Eag Lalita Toledo MD Call Back [address] [facility] - [place] [phone] 3309 [facility] [phone] [facility] [place] [address] (Wo rk) Social [...] SE from abx. Call back # is [phone]. Please call pt to go over the sx's. Thanks. Alvaro forest fire prevention manager Nurse documented in this encounter Plan of Treatment Not on filedocumented as of this encounter Visit Diagnoses Not on filedocumented in this encounter Additional Health Concerns Assessment Noted Time PHQ-9 Depression Total Score: 14 04/11/2016 7:23 AM CD T documented as of this encounter Care Teams Senior Field Engineer Relationship Specialty Start Date End Date Lalita Perez MD PCP - General Student in [email or web address] health 10/21/1404/21 care education/training program documented as of this encounter
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
--- OUTSIDE RECORDS SUMMARY | 2022-06-13 09:06 | XMS_ITS | Encounter Summary ---
:1990 Author Organization [facility] Address [address] [place] [address] Care Team Providers Name Role Phone Lalita Perez MD Primary Care Provider Reason for Visit Reason Onset Date Comments Medication Request 05/08/2016 Imitrex Encounter Details Date Type Department Care Team Description 05/08/2016 Telephone [facility] Blank Mary Medication Request 1440 [facility] GINNY Stanley EMERGENCY OPERATOR (Imitrex) [place] [phone] 6457 [facility] [phone] [facility] [place] [address] (Wo rk) [...] [facility] [address] in [place] Phone Number Patient can be reached at: Home number on file [phone] (home) Best Time: anytime Can we leave a detailed message on this number? YES Kajal Jeong, Washer Engineer Helper [facility] documented in this encounter Plan of Treatment Not on filedocumented as of this encounter Visit Diagnoses Diagnosis Other migraine without status migrainosu s, not intractable - Primary documented in this encounter Additional Health Concerns Assessment Noted Time PHQ-9 Depression Total Score: 14 04/11/2016 7:23 AM CD T documented as of this encounter Care Teams Precipitation Equipment Tender Relationship Specialty Start Date End Date Lalita Perez MD PCP - General Student in [facility] health 10/21/1404/21 care education/training program documented as of this encounter
--- OUTSIDE RECORDS SUMMARY | 2022-06-13 09:06 | XMS_ITS | Encounter Summary ---
:1990 Author Organization [place] Address [address] [place] [address] Care Team Providers Name Role Phone Lalita Perez MD Primary Care Provider Reason for Visit Reason Onset Date Comments Refill Request 12/01/2014 ESCITALOPRAM 10MG Encounter Details Date Type Department Care Team Description 12/01/2014 Refill [facility] Eag Lalita Toledo MD Refill Request 1440 [facility] [place] (ESCITALOPRAM 10MG) [place] [phone] 3914 [facility] [phone] [facility] [place] [address] [...] disorder documented in this encounter Care Teams Petrographer Relationship Specialty Start Date End Date Lalita Perez MD PCP - General Student in [facility] 10/21/1404/21 care education/training program documented as of this encounter
--- OUTSIDE RECORDS SUMMARY | 2022-06-13 09:06 | XMS_ITS | Encounter Summary ---
:1990 Author Organization [facility] Address [address] [place] [address] Care Team Providers Name Role Phone Lalita [...] Type Department Care Team Description 03/03/2016 Telephone [facility] Lalita Sepulveda MD Refill Request [address] [employer] [facility] [place] (AZURETTE TABLETS 28'S) [place] [phone] 7633 [facility] [phone] [facility] [place] [address] (Wo rk) [...] 03/05/2016 9:01 AM CDT Prescription approved per [facility] Refill Protocol. Patient due for physical after 04/05/16. Routing to Station Nurse Pool, please call to assist patient in scheduling a physical after 04/05/16. Telephone Encounter - Lalita Merritt - 03/03/2016 8:07 AM CDT AZURETTE TABLETS 28'S Last Written Prescription Date: 04/05/2015 Last Fill Quantity: 90, # refills: 3 Last Office Visit with [facility], P or [facility] prescribing provider: 10/02/2015 documented in this encounter Plan of Treatment Not on filedocumented as of this encounter Visit Diagnoses Diagnosis Contraceptive management - Primary Unspecified contraceptive management documented in this encounter Care Teams Mobile Product Manager Relationship Specialty Start Date End Date Lalita Perez MD PCP - General Student in [facility] 10/21/14 04/21/18 health care education/training program Blank Lemos, PCP - General Internal Medicine 04/22/[address] [place] [address] [address] [place], [place] [phone] Blank Lemos, PCP - Assigned PCP 04/25/[address] [place] [address] [address] [place], [place] [id number] Blank Lemos, Assigned PCP 04/25/[address] [place] [address] [address] [place], [place] [phone] Hardeep Cárdenas Personal Advocate & 06/17/1901/30 Liaison (PAL) Kathleen Lacy CNM Assigned OBGYN Provider 06/01/20 11/23/21 [address] [place] [address] Anabell Shannon Personal Advocate & 10/25/20 Liaison (PAL) Rand Kam, Assigned OBGYN Provider 11/24/21 12/28/21 RENEWABLE ENERGY ENGINEER CNM [address] [place], [place] [id number] Sharita Frias Assigned OBGYN Provider 01/04/2205/31 MD Blu [address] [place], [place] [id number] Kathleen Lacy CNM Assigned OBGYN Provider 12/29/21 01/03/22 [address] [place], [place] [phone] Kathleen Lacy CNM Assigned OBGYN Provider 01/18/22 01/24/22 [address] [place], [place] [address] Sharita Frias Assigned OBGYN Provider 01/25/22 MD [address] [address] [place], [place] [id number] documented as of this encounter
--- OUTSIDE RECORDS SUMMARY | 2022-06-13 09:06 | XMS_ITS | Encounter Summary ---
:1990 Author Organization [facility] Address [address] [place] [address]. [place] [address] Care Team Providers Name Role Phone Lalita Perez MD Primary Care Provider Reason for Referral Mental Health Outpatient - Closed Specialty Diagnoses / Procedures Referred By Contact Refer red To Contact Diagnoses GABRIEL (generalized anxiety disorder) Lalita Perez MD [facility] [address] [phone] [place] [id number] Referral ID Status Reason Start Date Expiration Date Visits Requ ested Visits Authorized [id number] Closed 10/17/2014 04/15/2015 1 1 Reason for Visit Reason Comments Anxiety Encounter Details Date Type Department Care Team Description 10/17/2014 Office Visit [facility] Lalita Perez MD GABRIEL (generalized Dev [facility] anxiety disorder) [address] (Primary Dx) [place] [phone] FERNANDO RICE [phone] [place] [address] Social History Tobacco Use [...] Lindsey, attending Lalita Perez MD Med/Peds PGY-2 [facility] DEV STAFF NOTE: Patient seen with resident [...] Name Type Priority Associated Diagnoses Order S [facility] MENTAL HEALTH REFERRAL Referral Routine GABRIEL (generalized a nxiety Ordered: 10/17/2014 disorder) documented as of this encounter Visit Diagnoses Diagnosis GABRIEL (generalized anxiety disorder) - Kimberli bear Generalized anxiety disorder documented in this encounter Care Teams Square Shear Operator Relationship Specialty Start Date End Date Lalita Perez MD PCP - General Student in [facility] health 10/21/1404/21 care education/training program documented as of this encounter
--- OUTSIDE RECORDS SUMMARY | 2022-06-13 09:06 | XMS_ITS | Encounter Summary ---
:1990 Author Organization [facility] Address [address] [place] [address] Care Team Providers Name Role Phone Lalita Perez MD Primary Care Provider Reason for Visit Reason Onset Date Comments Panel Management 01/11/2015 Encounter Details Date Type Department Care Team Description 01/11/2015 Telephone [facility] Eag Lalita Toledo MD Panel Management 14[address] [facility] - [place] [phone] [facility] [phone] [facility] [place] [id number] (Wo rk) [...] Review Date of last visit with a [facility] provider: on 11/28/14. Date of next visit with a [facility] provider: None. Problem List Patient Active Problem [...] on filedocumented in this encounter Care Teams Loan Servicing Representative Relationship Specialty Start Date End Date Lalita Perez MD PCP - General Student in [facility] health 10/21/1404/21 care education/training program documented as of this encounter
--- OUTSIDE RECORDS SUMMARY | 2022-06-13 09:06 | XMS_ITS | Encounter Summary ---
:1990 Author Organization [facility] Address [address] [place] [address] Care Team Providers Name Role Phone Lalita Perez MD Primary Care Provider Reason for Visit Reason Comments Anxiety Recheck Medication Encounter Details Date Type Department Care Team Description 11/28/2014 Office Visit [facility] Lalita Perez MD Phobia, flying (Primary Dx); [facility] [place] GABRIEL (generalized anxiety disorder) [address] [employer] [address] [place] [address] [place] [phone] [facility] [phone] [place] [address] Social History Tobacco Use Types Packs/Day [...] Perez - 11/28/2014 3:52 PM CDT SUBJECTIVE: eRna Turner is a 24 year old female [...] for recheck. Lalita Perez MD Med/Peds PGY-2 [facility] [place] STAFF NOTE: Patient seen with resident [...] disorder documented in this encounter Care Teams Deburrer Relationship Specialty Start Date End Date Lalita Perez MD PCP - General Student in [facility] health 10/21/1404/21 care education/training program documented as of this encounter
--- NOTE | 2022-06-13 09:57 | P.LDBA_ITS ---
Subjective History of Present Illness Date Seen: 06/13/22 Narrative: Patient is being admitted to Labor and Delivery for spontaneous onset of labor. She noticed some light vaginal bleeding mixed with cervical mucus last evening. She woke this morning at 6:00 a.m. with regular contractions and heavier vaginal bleeding, bright red. She is having moderately intense contractions every 3 minutes, severe enough that she has to stop talking and breathe through them. It is reminiscent of labor that she experienced with her 1st delivery prior to her section for arrest of descent. She is a 32 year old at 38 0/7 weeks gestation with a history of 1 prior delivery. She was originally scheduled for repeat section next Thursday with Dr. Ambrosio Arthur. Her full history and physical was dictated by Dr. Carey on 06/04/2022. Please see this for details. . Spouse: Micah. Girl at home: Daisy. Baby: Girl! Blood type: O+ 1. Obesity, BMI 40.0 * Recommended 81 mg of aspirin at 12 weeks * Hemoglobin A1c : 4.9% * Early 1 hr GTT: 100 * Level 2 ultrasound: 02/05/2022: No anomalies detected. Some views suboptimal. Growth parameters an EFW consistent with established dates. Amniotic fluid appears normal. Cervix appears long and closed. R ecommendations: Follow-up is scheduled with MFM in 3 weeks to reassess anatomy that was suboptimally seen. * Follow-up ultrasound 03/05/2022: Jad breech, anterior placenta without previa, MVP 5.8 cm ,EFW 31%, AC 24%, normal anatomy on completed survey. * USN for EFW 28wks: Vertex, CAROLE 20.5, SDP 8.4, EFW 66%, AC 60%, all growth parameters within normal ranges. * Anesthesia consult: [] * MFM rec. serial growth q 4-6wk and weekly BPP (starting at 36wks). * USN for EFW at 36wks: EFW 94%, BPD 22%, HC 23%, AC greater than 97%, FL 47%, CAROLE 22, SDP 9.1, vertex, BPP 8/8 2. Status post d/t arrest of dilation. Chance of successful = 27.3%. * Plan for repeat at 39 weeks. * 09/28/2020: PLTC; Seprafilm placement for adhesiolysis. 3. Anxiety and depression * Lexapro 20mg * BuSpar 25 mg twice daily 4. Migraines 5. Muscular dystrophy in father of the baby's family (2 paternal uncles) Offered genetic counseling and carrier screening. Patient declines. TdaP: 04/24/2022 Flu: 05/22/2022 OB - H&P: Exam Physical Exam: Vital signs: Temp Pulse BP Pulse Ox 98.3 F 83 139/81 94 06/13/22 09:04 06/13/22 09:05 06/13/22 09:05 06/13/22 09:05 Constitutional: Constitutional: no acute distress, mild distress (With contractions) and obese Routine HEENT Exam: Head: Present normal inspection Routine Respiratory Exam: Comments: Normal respiratory effort. Routine Cardiovascular Exam: Cardiovascular: RRR Routine Abdominal Exam: Comments: Gravid, intermittently firm with contractions.. Routine Exam: Patient deferred: external exam (Normal) Comments: On sterile speculum examination, there was a moderate amount of dark red bloody show admixed with mucus within the vaginal vault. Detailed Labor and Delivery Exam: Patient Gravid: yes (Vertex presentation by Zoltan's) Dilation (cm): 4 Effacement (%): 70 Cervix position: mid Consistency: soft Contraction frequency (min): 3 Contraction duration (sec): 60 Contraction intensity: Strong/Firm Fetus (Single): Station: -2 Heart Rate Baseline: 135 Monitor Accelerations: Present Monitor Decelerations: None Skilled Nursing Variability: Moderate (11-25) Routine Extremities Exam: Extremities: Present normal inspection Routine Neurological Exam: Present alert and oriented X3 Routine Psychiatric Exam: Present normal affect OB - Problem Based A/P Additional Plan (1) Spontaneous onset of labor: Status: Acute (2) Previous delivery affecting : Status: Acute Plan 1. The patient is in labor. At this time, status is reassuring, though the patient is in some moderate distress with contractions and is already 4 cm dilated. She has not eaten or drank since last evening. I would recommend delivery as soon as an operating room is available this morning. The OR staff and Anesthesia were notified. Will start an IV and do routine preoperative labs. Consent form for repeat delivery was already obtained and scanned into the medical record and the patient is already had a preoperative history and physical. The patient and I reviewed the relative risks and benefits of the surgical procedure and any additional questions were addressed today. Pediatric presents at delivery is recommended due to unscheduled repeat delivery in labor. Delivery/Labor/Induction Plan Plan: Section
[2022-06-13] MEDS: LACTATED RINGERS 1000 ML 1,000 ML 125 ML IV ×3 (10:10→13:50)
[2022-06-13 10:15] LABS: Hemoglobin* 11.9 gm/dL (12.0-16.0)
[2022-06-13] MEDS: CEFAZOLIN 2 GM in 0.9 % SODIUM CHLORIDE Mini-bag 100 ML IVPB (10:42)
--- NOTE | 2022-06-13 11:03 | SUR.OPER ---
Father of child in room for delivery. pt questions answered by anesthesia, MD and OB staff pre-op.
--- NOTE | 2022-06-13 11:16 | W.ANESCHARGE ---
Anesthesia Charges Start Date/Time Anesthesia Start Date: 06/13/22 Anesthesia Start Time: 10:35 Stop Date/Time Anesthesia Stop Date: 06/13/22 Anesthesia Stop Time: 12:15 Summary Emergency: No
[2022-06-13 11:18] LABS: SARS PCR* Negative SARS-CoV-2 (Negative)
[2022-06-13] MEDS: ONDANSETRON 2 MG/ML inj 4 MG IVP (11:24)
[2022-06-13] MEDS: KETOROLAC 30 MG/ML inj IVP ×2 (11:52→18:22)
--- NOTE | 2022-06-13 11:56 | PM.OBPRCCS ---
Procedure Pre-op/Post-op diagnoses: Pre-Op/Post-Op Diagnoses Operation Date: 06/13/22 10:45 <No data on this case meets the specified criteria> Procedure Done: Global Procedure Details: Procedures Operation Date: 06/13/22 10:45 Actual Procedure Side Surgeon p Section Vandana Vega MD Estimated blood loss (mL): 638 Disposition: floor Anesthesia type: TAP block Complications: None. Narrative: PREOPERATIVE DIAGNOSES: 1. Intrauterine at 38 0/7 weeks' gestation. 2. History of prior low transverse section x1, desiring repeat. POSTOPERATIVE DIAGNOSES: 1. Intrauterine at 38 0/7 weeks' gestation. 2. History of prior low transverse section x1, desiring repeat. NAME OF PROCEDURE: Repeat low transverse section. Lysis of adhesions. SURGEON: Gary. ANESTHESIA: Spinal. COMPLICATIONS: None. ESTIMATED BLOOD LOSS: 638 mL. DRAINS: Harrington to gravity. FINDINGS: Live-born female , cephalic presentation, occiput posterior position, Apgars 4, 6 and 8 at 1, 5 and 10 minutes respectively. weight 7 lb 15 oz. Normal appearing uterus, tubes, and ovaries. Dense adhesions between fascia, rectus muscles, omentum, anterior peritoneum, lower uterine segment, bladder. PROCEDURE: After obtaining informed consent, the patient was taken to the operating room where spinal anesthesia was obtained and found to be adequate. She was prepared and draped in the normal sterile fashion in the dorsal supine position with a leftward tilt. A pannus retractor was used due to maternal body habitus, BMI 48 kg/m2. A Pfannenstiel skin incision was made with a scalpel along the line of the patient's previous Pfannenstiel scar. This incision was carried down to the underlying layer of fascia with the Bovie. The fascia was incised in the midline and the incision extended laterally. The superior and inferior aspects of the fascial incision were grasped with Usman clamps, elevated and the underlying rectus muscles dissected off sharply and with electrocautery. This dissection took an increased amount of time given the dense adhesions. The rectus muscles were then in the midline. The peritoneal incision was extended superiorly and inferiorly with good visualization of the bladder. The Austin O retractor was then placed into the incision. The lower uterine segment was then incised in a transverse fashion with the scalpel. Upon entry into the uterus, copious clear amniotic fluid was noted. The uterine incision was extended laterally with blunt finger fractionation. The 's head was delivered atraumatically, followed by the remainder of the infant's body. The nose and mouth were suctioned with the bulb suction. The cord was doubly clamped and cut, and the was handed off the field to Dr. Millan for evaluation. The placenta was delivered spontaneously with umbilical cord traction and fundal massage. The uterus was cleared of all clots and debris. The uterine incision was reapproximated in a running locking fashion with a 0 chromic suture. A 2nd layer of the same suture was used to imbricate in horizontal fashion. The gutters were irrigated and suctioned. All instruments and retractors were removed. The anterior peritoneum was reapproximated in a running fashion with a 3-0 Vicryl suture. The subfascial tissues were carefully inspected and hemostasis assured. The fascia was reapproximated in a running fashion with a looped 0 Maxon suture. The subcutaneous tissues were copiously irrigated. Hemostasis was assured. The subcutaneous fat layer was reapproximated with interrupted sutures of 3-0 plain gut. The skin was closed in a subcuticular fashion with 4-0 Vicryl. A silver Mepilex dressing was applied. The patient tolerated the procedure well. Sponge, lap, needle, and instrument counts were reported as correct x2. The patient was taken to the recovery room, awake, and in stable condition. She did receive 2 grams of IV Ancef preoperatively and 30 mg of IV Toradol at the conclusion of procedure.
--- NOTE | 2022-06-13 12:25 | PM.OBPNCS1 ---
OB - PN: A/P Assessment and Plan (1) Status post repeat low transverse section: Status: Acute (2) hemorrhage: Status: Acute Plan 1. Bimanual exam was performed and clots were removed digitally from the lower uterine segment. Fundus was found to be firm. 2. Misoprostol 800 mcg was administered rectally. 3. Continue to monitor. Plan day: 0 Plan: routine postop care OB - PN: Subj Subjective Time Seen by Provider: 12:26 Date Seen: 06/13/22 Interval history: Called to the patient's room to evaluate vaginal bleeding. Found patient lying in bed, still comfortable, as spinal anesthesia had not yet worn off. There was blood on the Chux between the patient's legs. OB - PN: Obj Exam Physical Exam: Vital signs: Temp Pulse BP Pulse Ox 98.3 F 83 139/81 94 06/13/22 09:04 06/13/22 09:05 06/13/22 09:05 06/13/22 09:05 Narrative: exam: Bimanual exam was performed. I found of a large amount of clot within the lower uterine segment, which was removed digitally. The cervix was still about 4 cm dilated. Quantitative measurement of the blood and clots removed is pending. Constitutional: Constitutional: no acute distress Urinary Catheter Management: Urethral: Cath placed during this visit: yes Urethral indwelling: Yes Reason for continuing: surgical procedure Insertion date: 06/13/22 Insertion time: 10:52 OB - PN: Obj Data Labs Labs: Laboratory Results - last 24 hr 06/13/22 06/13/22 06/13/22 10:05 10:05 10:16 Hgb 11.9 L SARS-CoV-2 (PCR) Negative SARS-CoV-2 Blood Type O Positive Antibody Screen NEGATIVE
--- NOTE | 2022-06-13 14:38 | P.NB_ITS ---
Nerve Block Nerve Block Time Seen by Provider: 12:10 Date Seen: 06/13/22 Type of block requested by surgeon for post-operative analgesia: TAP Side: bilateral Time out performed: Yes Verification of patient name: Yes Verification of date of : Yes Site marking: site marked Name of person performing procedure: Judah White Continuous monitoring Was continuous monitoring of O2 sat, B/P, monitor technician, recorded every 15 minutes?: Yes Procedure Checklist: sterile prep, needles and gloves Ultrasound guided. Images saved: Yes Medications given in 5ml increments after negative aspiration: Marcaine %: 0.25 mL: 30 Needle gauge: 20 and Exparel mL: 10 Needle gauge: 20 Patient tolerated procedure well: Yes Additional comments: Injected in 5ml increments after negative aspiration Block Charges Block Charge (with Pro Fee): TAP Bilateral Use of Ultrasound Machine for Block: Yes- US Guidance/pain block
[2022-06-14 00:12] VITALS: BP 109/74; PULSE 78; RESP 18; TEMP 37.2; O2SAT 97
[2022-06-14] MEDS: KETOROLAC 30 MG/ML inj IVP ×4 (00:17→18:01)
[2022-06-14] MEDS: ESCITALOPRAM 10 MG TABLET 20 MG PO ×2 (01:11→21:15)
[2022-06-14 03:30] VITALS: BP 103/69; PULSE 87; RESP 16; TEMP 37.2; O2SAT 94
[2022-06-14] MEDS: ACETAMINOPHEN 500 MG TABLET 1000 MG PO ×3 (05:20→21:48)
[2022-06-14 07:33] LABS: Hemoglobin* 9.9 gm/dL (12.0-16.0)
[2022-06-14 07:37] VITALS: BP 117/79; PULSE 66; RESP 16; TEMP 37.1; O2SAT 97
--- NOTE | 2022-06-14 09:46 | PM.OBPNCS1 ---
OB - PN: A/P Assessment and Plan (1) Status post repeat low transverse section: Status: Acute (2) hemorrhage: Status: Acute OB - PN: Subj Subjective Time Seen by Provider: 09:47 Date Seen: 06/14/22 Interval history: SUBJECTIVE The patient feels tired but well. The pain is well controlled with current medications. She has no new complaints. Harrington has been removed. There is adequate urine output. The patient is voiding without difficulty. She has good appetite, is tolerating a regular, is passing flatus, and has not had a bowel movement. There is scanned amount of rubra lochia. She is ambulating well. Breast and bottle feeding due to the infant having low blood sugar. Having some difficulty with due to the infant being somewhat tired and not latching well. Postop hgb is 9.9. Iron supplementation ordered. OBJECTIVE: Vital Signs: See EMR MOOD: appropriate CHEST: clear to auscultation HEART: regular rate and rhythm ABDOMEN: soft, non-tender the uterine fundus is [] cm below Umbilicus, Midline and is appropriate for the stage of recovery. INCISION: Silver-containing dressing in place, clean, dry and intact. EXTREMITIES: normal and no edema ASSESSMENT [age] year old who is: 1. Postoperative day # 1 from a repeat low-transverse section after spontaneous onset of labor 2. Experiencing anemia of acute blood loss, asymptomatic 3. Breast and bottle feeding PLAN 1. Continue routine postoperative cares. 2. Excepted iron supplementation for treatment of asymptomatic anemia 3. See if desires. OB - PN: Obj Exam Physical Exam: Vital signs: Temp Pulse Resp BP Pulse Ox O2 Del Method 98.7 F 66 16 117/79 97 06/14/22 07:37 06/14/22 07:37 06/14/22 07:37 06/14/22 07:37 06/14/22 07:37 06/14/22 07:37 Urinary Catheter Management: Urethral: Cath placed during this visit: yes, but has since been removed by the nurse Urethral indwelling: Yes Reason for continuing: not indwelling catheter Insertion date: 06/13/22 Insertion time: 10:52 Removal date: 06/14/22 Removal time: 02:00 OB - PN: Obj Data Labs Labs: Laboratory Results - last 24 hr 06/13/22 06/13/22 06/13/22 10:05 10:05 10:16 Hgb 11.9 L SARS-CoV-2 (PCR) Negative SARS-CoV-2 Blood Type O Positive Antibody Screen NEGATIVE 06/14/22 07:21 Hgb 9.9 L SARS-CoV-2 (PCR) Blood Type Antibody Screen
[2022-06-14] MEDS: BUSPIRONE 10 MG TABLET 30 MG PO ×2 (10:08→21:15)
[2022-06-14] MEDS: DOCUSATE SODIUM 100 MG CAPSULE PO (10:08)
[2022-06-14 12:03] VITALS: BP 114/77; PULSE 71; RESP 16; TEMP 36.9; O2SAT 95
[2022-06-14 21:00] VITALS: BP 125/83; PULSE 78; RESP 16; TEMP 36.8; O2SAT 97
[2022-06-14] MEDS: LANOLIN CREAM 1 APPLIC TOPICAL (21:48)
[2022-06-15] MEDS: KETOROLAC 30 MG/ML inj IVP (00:13)
[2022-06-15] MEDS: SODIUM CHLORIDE 0.9 % (FLUSH) 10 ML SYRINGE IVF (00:20)
[2022-06-15 03:50] VITALS: BP 116/82; PULSE 82; RESP 18; TEMP 36.8; O2SAT 97
[2022-06-15] MEDS: ACETAMINOPHEN 500 MG TABLET 1000 MG PO ×4 (03:56→23:35)
[2022-06-15] MEDS: IBUPROFEN 600 MG TABLET PO ×3 (06:38→20:10)
[2022-06-15] MEDS: BUSPIRONE 10 MG TABLET 30 MG PO ×2 (08:56→21:15)
[2022-06-15] MEDS: SIMETHICONE 80 MG TAB.CHEW PO (08:56)
[2022-06-15] MEDS: DOCUSATE SODIUM 100 MG CAPSULE PO (08:57)
[2022-06-15 08:58] VITALS: BP 116/75; PULSE 84; RESP 18; TEMP 37.1; O2SAT 97
--- NOTE | 2022-06-15 09:21 | PM.OBPNCS1 ---
OB - PN: A/P Assessment and Plan (1) care and examination immediately after delivery: Status: Acute (2) Status post repeat low transverse section: Status: Acute (3) hemorrhage: Status: Acute (4) Lactating mother: Status: Acute Plan day: 2 Plan: routine postop care and discharge home Comments: ASSESSMENT [age] year old who is: 1. Postoperative day # 2 from a repeat low-transverse section after spontaneous onset of labor 2. Experiencing anemia of acute blood loss, asymptomatic 3. Breast and bottle feeding. PLAN 1. Continue routine postoperative cares. 2. Excepted iron supplementation for treatment of asymptomatic anemia 3. See if desires. OB - PN: Subj Subjective Date Seen: 06/15/22 Interval history: SUBJECTIVE The patient feels tired but well. The pain is well controlled with current medications. She has no new complaints. Harrington has been removed. There is adequate urine output. The patient is voiding without difficulty. She has good appetite, is tolerating a regular, is passing flatus, and has not had a bowel movement. There is scanned amount of rubra lochia. She is ambulating well. Breast and bottle feeding due to the having low blood sugar. Baby has been slowly weaning of the IV glucose and been awaking for feeds. and latch have improved a lot since yesterday. Postop hgb is 9.9. Iron supplementation ordered yesterday. She is interested in going home today but is planning to stay while baby continues with IV. The plan is for it to be discontinued today. Patient comments: no complaints, pain well controlled, incisional pain (minor), tolerating diet and flatus present status: feeding status: breast and bottle feeding OB - PN: Obj Exam Physical Exam: Vital signs: Temp Pulse Resp BP Pulse Ox O2 Del Method 98.7 F 84 18 116/75 97 06/15/22 08:58 06/15/22 08:58 06/15/22 08:58 06/15/22 08:58 06/15/22 08:58 06/15/22 08:58 Narrative: OBJECTIVE: Vital Signs: See EMR MOOD: appropriate CHEST: clear to auscultation HEART: regular rate and rhythm ABDOMEN: soft, non-tender the uterine fundus is 1 cm below the umbilicus, Midline and is appropriate for the stage of recovery. INCISION: Silver-containing dressing in place, clean, dry and intact. EXTREMITIES: normal and no edema Urinary Catheter Management: Urethral: Cath placed during this visit: yes, but has since been removed by the nurse Urethral indwelling: No Insertion date: 06/13/22 Insertion time: 10:52 Removal date: 06/14/22 Removal time: 02:00
[2022-06-15 16:10] VITALS: BP 122/82; PULSE 77; RESP 16; TEMP 36.8; O2SAT 97
[2022-06-15] MEDS: OXYCODONE 5 MG TABLET PO ×2 (17:08→21:14)
[2022-06-15] MEDS: ESCITALOPRAM 10 MG TABLET 20 MG PO (21:14)
[2022-06-16 01:30] VITALS: BP 121/80; PULSE 76; RESP 16; TEMP 36.7; O2SAT 96
[2022-06-16] MEDS: IBUPROFEN 600 MG TABLET PO ×3 (02:02→16:04)
[2022-06-16] MEDS: ACETAMINOPHEN 500 MG TABLET 1000 MG PO ×3 (06:51→19:59)
[2022-06-16] MEDS: OXYCODONE 5 MG TABLET PO ×3 (07:47→17:53)
[2022-06-16] MEDS: DOCUSATE SODIUM 100 MG CAPSULE PO (07:48)
[2022-06-16 07:50] VITALS: BP 123/85; PULSE 81; RESP 16; TEMP 36.3; O2SAT 98
--- NOTE | 2022-06-16 08:38 | P.DS_ITS ---
DS: Providers Provider Time Seen by Provider: 08:39 Date Seen: 06/16/22 Date of admission: 06/13/22 09:30 Primary care physician: Not a Local Provider Admitting Clinician: Vandana Vega MD Attending Physician on discharge: Vandana Vega MD Date of Discharge: 06/16/22 DS: Diagnosis Discharge Diagnosis (1) care and examination immediately after delivery: Status: Acute (2) Lactating mother: Status: Acute (3) Status post repeat low transverse section: Status: Acute (4) hemorrhage: Status: Acute Exam Const: Vital Signs, click to edit/add: Vital Signs - 24 hr 06/15/22 08:58 06/15/22 16:10 06/16/22 01:30 Temperature 98.7 F 98.2 F 98.1 F Pulse Rate [Pulse Oximeter] 84 77 76 Respiratory Rate 18 16 16 Blood Pressure [Ri ght Arm] 116/75 122/82 121/80 Pulse Oximetry 97 97 96 Oxygen Delivery Me thod Room Air Room Air Room Air 06/16/22 07:50 Temperature 97.3 F L Pulse Rate [Pulse Oximeter] 81 Respiratory Rate 16 Blood Pressure [Ri ght Arm] 123/85 Pulse Oximetry 98 Oxygen Delivery Me thod Room Air Documenting provider has reviewed patient's vital signs: yes Common normals: no apparent distress and oriented x3 General appearance: cooperative and comfortable HENMT: Common normals: normocephalic Head and scalp: normocephalic Neck & C-Spine: Common normals: full ROM and supple Chest: Common normals: inspection of chest normal Resp: Common normals: normal respiratory effort Effort & inspection: symmetric chest movement Cardio: Common normals: regular rate and regular rhythm Rate: regular rate Rhythm: regular rhythm GI: Common normals: Normal to inspection, nondistended, normoactive bowel sounds present : Uterus: U/U Lochia: small Back & Pelvis: Common normals: thoraco-lumbar ROM normal Extremity: Common normals: normal to inspection, full ROM and no pedal edema Neuro: Common normals: oriented x3 Skin: Common normals: no rashes or lesions noted General skin exam: no rashes or lesions noted Wounds: wounds noted (Dressing on, clean/dry/intact) OB - DS: Summary Hospital Course Hospital Course: The patient is a 32 year old G 2 P 2 at 38.0 weeks gestation that was admitted to the [facility] on 06/13[facility]22 for labor, repeat . She had an uncomplicated delivery. She delivered a viable female infant. She is breast & bottle feeding r/t low blood sugars. the patient has done well. She is ambulating w/o difficulty. Lochia is small. Her pain is well controlled w/ current medications. Peripartum Data Procedures: Procedures Operation Date: 06/13/22 10:45 Actual Procedure Side Surgeon p Section Vandana Vega MD complications: none Gender: Female Status at Discharge Functional status at discharge: independent ambulation Overall status at discharge: patient is progressing back to baseline Time Spent with Patient Time attestation: Total time spent providing and/or coordinating discharge services: Discharge Plan Discharge Disposition: Home, Self-Care Date of Admission: 06/13/22 09:30 Primary Care Provider: Provider,Not a Local Condition: Stable Anticipated Discharge Date/Time: 06/16/22 12:00 Discharge Medications: New ibuprofen 600 mg Tablet 600 mg PO Q6H PRN (Reason: Pain) Qty: 30 0RF oxycodone 5 mg Tablet 5 mg PO Q6H PRN (Reason: Pain) Qty: 20 0RF docusate sodium 100 mg Capsule 100 mg PO BID PRNQty: 100 0RF Continued ondansetron 4 mg tablet,disintegrating 4 mg PO DAILY PRN acetaminophen 500 mg tablet 500 mg PO Q6H Hold Instructions: Order Change Rx Instructions: NO MORE THAN 4000 MG/DAY docusate sodium 100 mg capsule 100 mg PO DAILY PRN buspirone 7.5 mg tablet 30 mg PO BID escitalopram oxalate 20 mg tablet 20 mg PO DAILY aspirin 81 mg capsule 81 mg PO QDAY with DHA-Folic Acid 400-32.5 mcg-mg tablet,chewable 1 tab PO DAILY Discharge Orders: Discharge Order (Routine); Ordered 06/16/22 Ordered By: Evelyn Hay Patient Education: (DC), OB /Breast Feeding Additional Instructions: Discharge instructions were reviewed with the patient including signs and symptoms of infection and home going medications. Activity restrictions: Lifting Restriction: 20 pounds for 6 weeks No not submerge incision under water X 2 weeks? Nothing vaginally for 6 weeks: no tampons or intercourse Do not drive while taking narcotic pain medication(s) Off Work or School for 8 weeks No core or strenuous exercise for 6 weeks. Walking and walking up and down stairs is safe. Symptoms to report to doctor: * Bleeding that saturates more than one pad per hour * Passing clots larger than the size of a golf ball * Pain not relieved by prescribed medication * Fever above 100.4 degrees Fahrenheit * A foul vaginal odor * Difficulty in emotions, mood, and functions * Thoughts of hurting yourself and/or * Painful, reddened area in your breast * Any drainage, redness, or tenderness in your IV/epidural site * Severe headache that doesn't improve after taking medications * Changes in vision, including temporary loss of vision, blurred vision, and/or light sensitivity * Upper abdominal pain (usually under ribs on the right side) * Decrease in urination or painful, frequent urinating * Chest pain * Shortness of breath * Tenderness or pain with redness and/swelling in the calf(s) of your leg Follow-up Clinic visits: Incision check and remove the silver-containing dressing 1 week after delivery. Optional 2-week visit: discuss infant feeding concerns, review control options and screen for anxiety/depression. 6-week visit for an annual exam. consultation services are available to all mothers and babies for the first year after delivery.? To make an appointment, please call [phone]. Activity Level: Activity as Tolerated Discharge Diet: Regular Follow Up Appointments: [facility] [Provider Group] Provider,Not a Local [Primary Care Provider] - Forms: [facility] Info Instructions
[2022-06-16] MEDS: BUSPIRONE 10 MG TABLET 30 MG PO (09:12)
[2022-06-16 16:00] VITALS: BP 116/77; PULSE 90; RESP 16; TEMP 36.7; O2SAT 98
== END 2022-06-16 21:15 | disposition home or self-care (01) | DRG 787 ==
LOC: OB OUT 10:16 → OB 10:16
PROVIDERS: Admitting Provider Obstetrics & Gynecology; Visit Provider Obstetrics & Gynecology
PROC: 10D00Z1 Extraction of Products of Conception, Low, Open Approach (ICD-10-PCS; CPT 59514; principal; 2022-06-13 10:30)
DX: O75.82 Onset (spontaneous) of labor after 37 completed weeks of gestation but before 39 completed weeks gestation, with delivery by (planned) cesarean section (principal); D62 Acute posthemorrhagic anemia; O72.1 Other immediate postpartum hemorrhage; O99.344 Other mental disorders complicating childbirth; F41.9 Anxiety disorder, unspecified; F32.A Depression, unspecified; G43.909 Migraine, unspecified, not intractable, without status migrainosus; O90.81 Anemia of the puerperium; Z3A.38 38 weeks gestation of pregnancy; Z37.0 Single live birth
CPT/HCPCS: 01961; 36415; 64488; 76942; 85018; 85025; 86850; 86900; 86901; 87635; A9270; C9290; J0690; J1885; J2274; J2370; J2405; J2590; J3490; J7120

== ENCOUNTER 2022-07-02 11:05 | Outpatient (CLI) | payer OTHER, SELFPAY ==
--- OUTSIDE RECORDS SUMMARY | 2022-07-02 11:08 | XMS_ITS | Encounter Summary ---
:1990 Author Organization [facility] Address [address] [place] [address] Care Team Providers Name Role Phone Blank [...] documented as of this encounter Care Teams Turntable Worker Relationship Specialty Start Date End Date Blank Lemos, PCP - General Internal Medicine 04/22/[address] [place] [address] KISHAN RENO [phone] Blank Lemos, Assigned PCP [facility] KISHAN RENO [address] Kathleen Lacy CNM Assigned OBGYN Provider 06/01/20 11/23/21 [place] [id number] Anabell Shannon Personal Advocate & 10/25/20 Liaison (PAL) documented as of this encounter
--- OUTSIDE RECORDS SUMMARY | 2022-07-02 11:08 | XMS_ITS | Encounter Summary ---
:1990 Author Organization [facility] [place] Address [address] [place] [address] Care Team Providers Name Role Phone Blank Lemos MD Primary Care Provider Blank Lemos MD Unavailable Kathleen Lacy CNM Unavailable Reason for Visit Reason Comments Surgical Followup check incision - has been ir ritated since surgery, but worsening now with odor Encounter Details Date Type Department Care Team Description 10/18/2020 Office Visit [facility] Yonathan Giraldo for postoperative wound check (Primary Dx); [facility] MD Avelino Morbid obesity (H) [place] [address] [facility] [address] [place], [place] [address] [place] [address] Social History Tobacco Use Types [...] with No / Unsure 10/18/2020 2:11 PM 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 documented as of this encounter Last Filed Vital Signs Vital Sign Reading Time Taken Comments Blood Pressure 108/72 10/18/2020 2:16 PM SALESP[employer] Pulse - - Temperature 36.8 ??C (98.3 ??F) 10/18/2020 2:16 PM SALESPERSON [employer] Respiratory Rate - - Oxygen Saturation - - Inhaled Oxygen Concentration - - Weight 105 kg (231 lb 6.4 oz) 10/18/2020 2:16 PM [employer]ESPERSON [employer] Height - - Body Mass Index 40.99 09/28/2020 8:52 AM SALESPERSON [employer] documented in this encounter Progress Notes Yonathan [...] PP visit or prn Macho Giraldo MD SPERSON [employer] documented in this encounter Nursing Notes Shi Rinalid CMA - 10/18/2020 2:15 PM CST Chief [...] completed using cuff size largeReno Rinaldi CMA [employer]ERSON [employer] documented in this encounter Plan of Treatment Not on filedocumented as of this encounter Visit Diagnoses Diagnosis Encounter for postoperative wound check - Primary Other specified aftercare following surg genia Morbid obesity (H) Morbid obesity documented in this encounter Additional Health Concerns Assessment Noted Time PHQ-9 Depression Total Score: 5 12/06/2020 7:02 AM CDT documented as of this encounter Care Teams Knockdown Man Relationship Specialty Start Date End Date Blank Lemos MD PCP - General Internal Medicine 04/22/18 [address] [facility] KISHAN RENO [phone] Blank Lemos MD Assigned PCP 04/25/[address] [place] [address] KISHAN RENO [id number] Kathleen Lacy CNM Assigned OBGYN Provider 06/01/20 11/23/21 [address] [place] [address] documented as of this encounter
--- OUTSIDE RECORDS SUMMARY | 2022-07-02 11:08 | XMS_ITS | Encounter Summary ---
:1990 Author Organization [facility] Address [facility] [place] [address] Care Team Providers Name Role Phone Blank Lemos MD Primary Care Provider Blank Lemos MD Unavailable Anabell Shannon Unavailable Unavailable Sharita Frias MD Unavailable Reason for Visit Reason Comments Ultrasound L2- BMI 40 Encounter Details Date Type Department Care Team Description 01/29/2022 PRE VISIT [facility], Ultrasound (L2- BMI 40) Maternal Medicine [facility] [address] [facility] [address] [place] [address] Social History Tobacco Use Types [...] documented as of this encounter Care Teams Operations Dispatcher Relationship Specialty Start Date End Date Blank Lemos, PCP - General Internal Medicine 04/22/[address] [place] [address] KISHAN RENO [id number] Blank Lemos, Assigned PCP 04/25/[address] [place] [address] KISHAN RENO [id number] Anabell Shannon Personal Advocate & 10/25/20 Liaison (PAL) Sharita Frias, Assigned OBGYN Provider 01/25/22 05/09/22 [address] [place] [address] documented as of this encounter
--- OUTSIDE RECORDS SUMMARY | 2022-07-02 11:08 | XMS_ITS | Encounter Summary ---
:1990 Author Organization [place] Address [facility] [place] [address] Care Team Providers Name Role Phone Blank Lemos MD Primary Care Provider Blank Lemos MD Unavailable Anabell Shannon Unavailable Unavailable Sharita Frias MD Unavailable Reason for Visit Reason Comments Ultrasound RL2-subopt anatomy Encounter Details Date Type Department Care Team Description 03/05/2022 Office Visit [facility] Aimee Aguilar abn ormality Maternal MD [facility] [address] of mother, antepartum, [facility] [address] single or unspecified [address] [place], [place] fetus (Primary Dx) [address] [address] [place], [place] [phone] [address] (Work) [phone] Social History Tobacco Use Types Packs/Day Years [...] as of this encounter Care Teams Digital Forensic Examiner Relationship Specialty Start Date End Date Blank Lemos, PCP - General Internal Medicine 04/22/18 MD [facility] KISHAN RENO [id number] Blank Lemos, Assigned PCP 04/25/18 MD [facility] KISHAN RENO [address] Anabell Shannon Personal Advocate & 10/25/20 Liaison (PAL) Sharita Frias, Assigned OBGYN Provider 01/25/22 05/09/22 [address] [place] [address] documented as of this encounter
--- OUTSIDE RECORDS SUMMARY | 2022-07-02 11:08 | XMS_ITS | Encounter Summary ---
:1990 Author Organization [place] Address Counts include 234 beds at the [facility] [place] [address] Care Team Providers Name Role Phone Blank Lemos MD Primary Care Provider Blank Lemos MD Unavailable Anabell Shannon Unavailable Unavailable Sharita Frias MD Unavailable Reason for Referral Diagnostic Imaging Ultrasound (Routine) - Pending Review Specialty Diagnoses / Procedures Referred By Contact Refer red To Contact Diagnoses abnormality affecting management of mother, antepartum, single or unspecified fetus Aimee Aguilar MD Procedures [facility] US Comprehensive Single F/U [address] [place] [address] [place] [address] Referral ID Status Reason Start Date Expiration Date Visits V isits Requested Authorized [id number] Pending 02/05/2022 02/05/2023 1 1 Review Reason for Visit Diagnostic Imaging Ultrasound (Routine) - Pending Review Specialty Diagnoses / Procedures Referred By Contact Refer red To Contact Diagnoses abnormality affecting management of mother, antepartum, single or unspecified fetus Aimee Aguilar MD Procedures [facility] US Comprehensive Single F/U [address] [place] [address] [place], [place] [address] Referral ID Status Reason Start Date Expiration Date Visits V isits Requested Authorized [id number] Pending 02/05/2022 02/05/2023 1 1 Review Encounter Details Date Type Department Care Team Description 03/05/2022 [facility] Aimee Fet al abnormality Maternal MD Sean affecting management [facility] [address] of mother, [place] [address] antepartum, single [address] [place], [place] or un specified fetus [address] [address] [place], [place] [phone] [address] (Work) [phone] Social History Tobacco Use Types Packs/Day Years [...] Procedure Name Priority Date/Time Associated Comments Diagnosis [facility] US COMPREHENSIVE Routine 03/05/2022 9:49 AM abnormal ity Results for this SINGLE F/U CDT affecting procedure are i n management of the results mother, antepartum, section. single or unspecified fetus documented in this encounter Results [facility] US Comprehensive Single F/U (03/05/2022 [...] ABREU Study Date: 03/05/2022 9:05am Pat. NO: [id number] Referring ??MD: COCO ORTIZ Site: [facility] Textile Cutting Machine Operator: Hood Mcwilliams RDMS : 1990 Age: 32 [...] 1 lb 5 ?oz EFW by ?Hadlock ([id number]) Head / Face / Neck Biometry: Periodontist ? 4.9 ? mm CM ?4.8 ? [...] documented previously: Heart / Thorax ?RVOT view. [id number] view. ? Diaphragm. Spine ?Sacral spine. Gender: [...] are anticipat ed to be done in [place]. We recommend serial growth every 4-6 weeks [...] Pat. Name:Noemi ABREU Date: 9:05am Pat. NO: [id number] MD:CARMENCITA ORTIZ [facility]Sandra Fleming :1990Age:32 INDICATION BMI 40 METHOD [...] 1 lb 5 oz EFW by Hadlock ([id number]) Head / Face / Neck Biometry: Periodontist 4.9 mm CM 4.8 mm Nasal bone [...] documented previously: Heart / Thorax RVOT view. 7-[id number]-jtuua ea view. Diaphragm. Spine Sacral spine. Gender: [...] are anticipat ed to be done in [place]. We recommend serial growth every 4-6 weeks [...] volume appeared no rmal. Aimee Aguilar MD [facility] US ORDERABLES documented in this encounter Visit Diagnoses Diagnosis abnormality affecting management o f mother, antepartum, single or unspecified fetus documented in this encounter Additional Health Concerns Assessment Noted Time PHQ-9 Depression Total Score: 2 11/06/2020 3:02 PM CDT documented as of this encounter Care Teams Recycling Technician Relationship Specialty Start Date End Date Blank Lemos, PCP - General Internal Medicine 04/22/18 [facility] KISHAN RENO [phone] Blank Lemos, Assigned PCP 04/25/18 [facility] KISHAN RENO [phone] Anabell Shannon Personal Advocate & 10/25/20 Liaison (PAL) Sharita Frias, Assigned OBGYN Provider 01/25/22 05/09/22 [address] [address] [place], [place] [phone] documented as of this encounter
--- OUTSIDE RECORDS SUMMARY | 2022-07-02 11:08 | XMS_ITS | Encounter Summary ---
:1990 Author Organization [facility] Address [address] [place] [address] Care Team Providers Name Role Phone Blank [...] with No / Unsure 10/18/2020 2:11 PM [employer] [employer] [facility] someone who was confirmed or suspected to have Coronavirus / COVID-19? documented as of this encounter Plan of Treatment Not on filedocumented as of this encounter Visit Diagnoses Not on filedocumented in this encounter Additional Health Concerns Assessment Noted Time PHQ-9 Depression Total Score: 5 12/06/2020 7:02 AM CDT documented as of this encounter Care Teams Business Account Manager Relationship Specialty Start Date End Date Blank Lemos MD PCP - General Internal Medicine 04/22/[address] [place] [address] KISHAN RENO [phone] Blank Lemos MD Assigned PCP 04/25/[address] [place] [address] KISHAN RENO [phone] Kathleen Lacy CNM Assigned OBGYN Provider 06/01/20 11/23/21 [address] [place] [phone] documented as of this encounter
--- OUTSIDE RECORDS SUMMARY | 2022-07-02 11:08 | XMS_ITS | Encounter Summary ---
:1990 Author Organization [place] Address [address] [place] [address] Care Team Providers Name Role Phone Blank [...] documented as of this encounter Care Teams Beam Press Operator Relationship Specialty Start Date End Date Blank Lemos, PCP - General Internal Medicine 04/22/[address] [place] [address] KISHAN RENO [phone] Blank Lemos, Assigned PCP 04/25/[address] [place] [address] KISHAN RENO [phone] Anabell Shannon Personal Advocate & 10/25/20 Liaison (PAL) Sharita Frias, Assigned OBGYN Provider 01/25/22 05/09/22 [address] [place] [address] documented as of this encounter
--- OUTSIDE RECORDS SUMMARY | 2022-07-02 11:08 | XMS_ITS | Clinical Summary ---
:1990 Author Organization [place] Address [address] [place] [address] Care Team Providers Name Role Phone Blank [...] High-risk , third trimester 08/07/2020 Overview: Clinic/Hospital: [facility] Partner Name: Micah Ultrasound predicts sex: [...] +HR HPV, not 16/18. Plan colp 10/07/18 [place]- No lesions seen, no Bx raisa en. Plan 1 yr co-test 02/24/20 ASCUS pap, + HR HPV (not 16 or 1 8). Pt about 10 weeks . Plan colp without biopsies due by 05/26/20. 03/05/20 CCT tracking. 03/06/20 pt notified 04/09/20 colp visually MIL I-II. Plan: acesar p . EDC 09/27/20 11/06/20 NIL, +HR HPV, not 16/18. Plan Co lp bef 02/06/21 11/13/20 Left msg and MyChart result lette r- read by pt 01/08/21 Reminder MyChart 02/05/21 [place] not done. Tracking updated for 6 mo [...] PM CDT Pulse 76 09/30/2020 9:40 AM INSTRUMENTATION TECH Temperature 36.8 ??C (98.3 ??F) 10/18/2020 2:16 PM INSTRUMENTATION TECH Respiratory Rate 18 09/30/2020 9:40 AM INSTRUMENTATION TECH Oxygen Saturation 98% 09/29/2020 9:00 AM INSTRUMENTATION TECH Inhaled Oxygen Concentration - - Weight 104.8 [...] Address T ype Group Dates WORK COMP [employer] [id number] 2015-Pre [phone] [address]MIN[address]RATORS sent [phone] [place] [address] [facility] [id number] 2021-Pres [phone] [address] [facility]ALTHCARE COMMERCIAL ent [phone] [place] [address] Rena Abreu Worker's Self 1990 [phone] TOW N M Compensation 4 (Home) [address] [place] [address] [facility] 1990 [phone] EM YSABEL M 4 (Home) [place] [address] Advance Directives For more information, please contact: [phone] Latest Code Status on File Code Status [...] patient/ legal de cision maker Care Teams Route Sales Manager Relationship Specialty Start Date End Date Blank Lemos, PCP - General Internal Medicine 04/22/[address] [place] [address] DR VASQUEZ, KISHAN [phone] Blank Lemos, Assigned PCP 04/25/[address] [place] [address] KISHAN RENO [address] Anabell Shannon Personal Advocate & 10/25/20 Liaison (PAL)
--- OUTSIDE RECORDS SUMMARY | 2022-07-02 11:08 | XMS_ITS | Encounter Summary ---
:1990 Author Organization [facility] Address [address] [facility] [address] Care Team Providers Name Role Phone Blank Lemos MD Primary Care Provider Blank Lemos MD Unavailable Anabell Shannon Unavailable Unavailable Kathleen Lacy CNM Unavailable Sharita Frias MD Unavailable Encounter Details Date Type Department Care Team Description 01/24/2022 Medical Correspondence [facility] Scan, MATERNAL Health Info Mgmt Non-Provider MEDICINE CE [facility] PROVIDER SERVICE [address] [place] [address] [place] [address] [facility] [phone] C[facility] Social History Tobacco Use Types Packs/Day [...] as of this encounter Care Teams Medical Associate Relationship Specialty Start Date End Date Blank Lemos, PCP - General Internal Medicine 04/22/[address] [place] [address] [place] [address] Blank Lemos, Assigned PCP 04/25/[address] [place] [address] KISHAN RENO [address] Anabell Shannon Personal Advocate & 10/25/20 Liaison (PAL) Kathleen Lacy CNM Assigned OBGYN Provider 01/18/22 01/24/22 [place] [address] Sharita Frias, Assigned OBGYN Provider 01/25/22 05/09/22 [address] [place] [address] documented as of this encounter
--- OUTSIDE RECORDS SUMMARY | 2022-07-02 11:08 | XMS_ITS | Encounter Summary ---
:1990 Author Organization [place] Address [address] [place] [address] Care Team Providers Name Role Phone Blank [...] documented as of this encounter Care Teams Ornamental Metal Fabricator Apprentice Relationship Specialty Start Date End Date Blank Lemos, PCP - General Internal Medicine 04/22/[address] [place] [address] KISHAN RENO [phone] Blank Lemos, Assigned PCP 04/25/18 [facility] KISHAN RENO [address] Kathleen Lacy CNM Assigned OBGYN Provider 06/01/20 11/23/21 [place]ri[place] [phone] Anabell Shannon Personal Advocate & 10/25/20 Liaison (PAL) documented as of this encounter
--- OUTSIDE RECORDS SUMMARY | 2022-07-02 11:08 | XMS_ITS | Encounter Summary ---
:1990 Author Organization [place] Address [address] [facility] [place] [address] Care Team Providers Name Role Phone Blank Lemos MD Primary Care Provider Blank Lemos MD Unavailable Kathleen Lacy CNM Unavailable Anabell Shannon Unavailable Unavailable Encounter Details Date Type Department Care Team Description 10/03/2020 Medical Correspondence [facility] Scan, EPISODE SUMMARY Health Info Mgmt Non-Provider REPORT [facility] Srs [address] [place] [address] Social History Tobacco Use Types [...] of this encounter Care Teams Printed Circuit Boards Solder Leveler Relationship Specialty Start Date End Date Blank Lemos, PCP - General Internal Medicine 04/22/[address] [place] [address] KISHAN RENO [phone] Blank Lemos, Assigned PCP 04/25/[address] [place] [address] KISHAN RENO [phone] Kathleen Lacy CNM Assigned OBGYN Provider 06/01/20 11/23/21 [place] [address] Anabell Shannon Personal Advocate & 10/25/20 Liaison (PAL) documented as of this encounter
--- OUTSIDE RECORDS SUMMARY | 2022-07-02 11:08 | XMS_ITS | Encounter Summary ---
:1990 Author Organization [place] Address [address] [place] [address] Care Team Providers Name Role Phone Blank Lemos MD Primary Care Provider Blank Lemos MD Unavailable Kathleen Lacy CNM Unavailable Anabell Shannon Unavailable Unavailable Encounter Details Date Type Department Care Team Description 11/27/2020 Medical Correspondence [facility] Scan, [facility] Non-Provider POST-ANDIE Srvcs DEPRESSION SCALE [address] [place] [address] [place] [address] WELL-CHILD VISITS [phone] Social History Tobacco Use Types Packs/Day Years [...] documented as of this encounter Care Teams Pct Relationship Specialty Start Date End Date Blank Lemos, PCP - General Internal Medicine 04/22/[address] [place] [address] KISHAN RENO [address] Blank Lemos, Assigned PCP 04/25/18 [facility] KISHAN RENO [address] Kathleen Lacy CNM Assigned OBGYN Provider 06/01/20 11/23/21 [place] [address] Anabell Shannon Personal Advocate & 10/25/20 Liaison (PAL) documented as of this encounter
--- OUTSIDE RECORDS SUMMARY | 2022-07-02 11:08 | XMS_ITS | Encounter Summary ---
:1990 Author Organization [place] Address [facility] [place] [address] Care Team Providers Name Role Phone Blank [...] Procedures MFM US Comprehensive Single F/U [address] [place], [place] [address] Referral ID Status Reason Start Date Expiration Date Visits V isits Requested Authorized [id number] Pending 02/05/2022 02/05/2023 1 1 Review Reason for Visit Reason Comments Ultrasound L2-BMI 40 Encounter Details Date Type Department Care Team Description 02/05/2022 Office Visit [facility] Coco Ortiz APRN [facility] [address] [place] [address] abnormality Maternal Aimee Aguilar MD [address] [place], [place] [address] affecting management Medicine Center of mother, Kely antepartum, single or [address] unspecif ied fetus [address] (Primary Dx) [place] [phone] Social History Tobacco Use Types Packs/Day Years [...] ABREU Study Date: 03/05/2022 9:05am Pat. NO: [id number] Referring ??MD: COCO ORTIZ Site: [employer] Builder: Hood Mcwilliams RDMS : 1990 Age: 32 [...] 1 lb 5 ?oz EFW by ?Hadlock ([id number]) Head / Face / Neck Biometry: Screen Writer ? 4.9 ? mm CM ?4.8 ? [...] documented previously: Heart / Thorax ?RVOT view. 5-hylesw-zbzyjjs view. ? Diaphragm. Spine ?Sacral spine. Gender: [...] are anticipat ed to be done in [place]. We recommend serial growth every 4-6 weeks [...] Pat. Name:Noemi ABREU Date: 9:05am Pat. NO: [id number] MD:CARMENCITA ORTIZ [facility]Sandra Fleming :1990Age:32 INDICATION BMI 40 METHOD [...] 1 lb 5 oz EFW by Hadlock ([id number]-FL) Head / Face / Neck Biometry: Screen Writer 4.9 mm CM 4.8 mm Nasal bone [...] documented previously: Heart / Thorax RVOT view. 1-uepwhl-qpeuz ea view. Diaphragm. Spine Sacral spine. Gender: [...] are anticipat ed to be done in [place]. We recommend serial growth every 4-6 weeks [...] The amniotic fluid volume appeared no rmal. iAmee Aguilar MD [facility] US ORDERABLES documented in this encounter Visit Diagnoses Diagnosis abnormality affecting management o f mother, antepartum, single or unspecified fetus - Primary abnormality affecting management o f mother, antepartum, single or unspecified fetus documented in this encounter Additional Health Concerns Assessment Noted Time PHQ-9 Depression Total Score: 2 11/06/2020 3:02 PM CDT documented as of this encounter Care Teams Procurement Buyer Relationship Specialty Start Date End Date Blank Lemos, PCP - General Internal Medicine 04/22/[address] [place] [address] DR VASQUEZ, KISHAN [phone] Balnk Lemos, Assigned PCP 04/25/18 [facility] K[place]AN RENO [address] Anabell Shannon Personal Advocate & 10/25/20 Liaison (PAL) Sharita Frias, Assigned OBGYN Provider 01/25/22 05/09/22 [address] [place] [address] documented as of this encounter
--- OUTSIDE RECORDS SUMMARY | 2022-07-02 11:08 | XMS_ITS | Encounter Summary ---
:1990 Author Organization [place] Address [facility] [place] [address] Care Team Providers Name Role Phone Blank Lemos MD Primary Care Provider Blank Lemos MD Unavailable Anabell Shannon Unavailable Unavailable Sharita Frias MD Unavailable Reason for Referral Diagnostic Imaging Ultrasound (Routine) - Pending Review Specialty Diagnoses / Procedures Referred By Contact Refer red To Contact Diagnoses related condition, antepartum Carmencita Ortiz, Procedures [facility] PATIENT CARE TECHNICIAN [facility] [address] [place] [address] Referral ID Status Reason Start Date Expiration Date Visits V isits Requested Authorized [id number] Pending 01/26/2022 01/26/2023 1 1 Review Consultation (Routine) - Pending Review Specialty Diagnoses / Procedures Referred By Contact Refer red To Contact Diagnoses related condition, antepartum Carmencita Ortiz APRN CNP [address] [address] Referral ID Status Reason Start Date Expiration Date Visits V isits Requested Authorized [id number] Pending 01/26/2022 01/26/2023 1 1 Review Encounter Details Date Type Department Care Team Description 01/26/2022 Transcribe Orders [facility] LuisCaitlin graciela related Maternal Carmencita Carrington APRN condition , Medicine Center INTERFACE DEVELOPER antepartum (Primary [facility] Dx) [address] [facility] [address] [place] [address] [phone] Social History Tobacco Use Types Packs/Day Years [...] ABREU Study Date: 02/05/2022 10:22am Pat. NO: [id number] Referring ??: COCO ORTIZ Site: [employer] Interstate: Dion mora RDMS : 1990 Age: 32 [...] lb 11 ? oz EFW by ?Hadlock ([id number]-FL) Head / Face / Neck Biometry: Marine Engine Driver ? 5.4 ? mm CM ?3.2 ? [...] vena cava. Inferior vena cava. 3-vessel view. 8-nhxkbr-gygvtsf view. Cardiac position. ? Cardiac size. Cardiac [...] a comprehensive ultrasound. She is referred from [place] for BMI > 40. I discussed the findings on today's ultr asound with the patient. I reviewed the limitations of ultrasound both in detecting aneuploidy and structural abnormalities. Ultrasound, when views completed, can routinely dete ct 80-90% of structural abnormalities. She had low risk cell free DNA for genetic screening this . [facility] that was suboptimally seen today. Additional surveillance is recommended in the (growth US every 4-6 weeks, weekly BPP at 34 weeks) and I assume that this will be done in [place]. Return to primary provider for continued care. If you have questions regarding today's evaluation or if we can be of further service, please contact the Maternal- Medicine Center. Procedure Note Aimee Aguilar MD - 02/05/2022Form atting of this note might be different from the original. Comprehensive Pat. Name:Noemi ABREU Date: 10:22am Pat. NO: [id number] :CARMENCITA ORTIZ Site:[facility] Career:Dion Cruz RDMS :1990Age:32 INDICATION BMI 40 METHOD [...] Hadlock Humerus 31.0 mm 20w 2d [facility] Weight Calculation: EFW 322 g 58% Hadlock EFW (lb,oz) 0 lb 11 oz EFW by Hadlock ([id number]-FL) Head / Face / Neck Biometry: Marine Engine Driver 5.4 mm CM 3.2 mm Nuchal fold [...] vena cava. Inferior vena cava. 3-vessel view. 4-alxlld-rbkipvt view. Cardiac position. Cardiac size. Cardiac rhythm. [...] a comprehensive ultrasound. She is referred from [place] for BMI > 40. I discussed the [...] assume that this will be done in [place]. Return to primary provider for continued care. [...] appears long and closed. Carmencita Ortiz APRN INTERFACE DEVELOPER IMG M US ORDERABLES documented in this encounter Visit Diagnoses Diagnosis related condition, antepartum - Primary related condition, antepartum documented in this encounter Additional Health Concerns Assessment Noted Time PHQ-9 Depression Total Score: 2 11/06/2020 3:02 PM CDT documented as of this encounter Care Teams Medicine And Health Service Manager Relationship Specialty Start Date End Date Blank Lemos, PCP - General Internal Medicine 04/22/18 [address] [facility] KISHAN RENO [address] Blank Lemos, Assigned PCP 04/25/18 [facility] KISHAN RENO [phone] Anabell Shannon Personal Advocate & 10/25/20 Liaison (PAL) Sharita Frias, Assigned OBGYN Provider 01/25/22 05/09/22 [address] [place] [address] documented as of this encounter
--- OUTSIDE RECORDS SUMMARY | 2022-07-02 11:08 | XMS_ITS | Clinical Summary ---
:1990 Author Organization [facility] [place] [address] Care Team Providers Name Role Phone Evelyn Arnett NP Primary Care Provider [phone] Allergies Active Allergy Reactions Severity Noted [...] Name Administration Dates Next Due COVID-19 vaccine ([employer] 07/26/2021, 12/08/2020, 30mcg/0.3mL) PF, MDV Td (Age [...] luis e DO Complications: None Delivery Location: [facility] ([facility]) Current Last Filed Vital Signs Vital Sign Reading Time Taken Comments Blood Pressure 120/76 01/02/2022 1:19 PM CDT Pulse 72 01/02/2022 1:19 PM CDT Temperature 37 ??C (98.6 ??F) 09/16/2021 3:22 PM OFFICE CLERK Respiratory Rate 15 01/02/2022 1:19 PM CDT Oxygen Saturation 97% 09/16/2021 3:22 PM OFFICE CLERK Inhaled Oxygen Concentration - - Weight 103.4 [...] 12/25/2024 12/25/2021, 12/25/2021, 11/07/2020 ([facility] Additional history exists Tetanus booster 07/09/2030 07/09/2020, 04/10/2016, 10/08/2008, Additional history exists Tdap Completed 07/09/2020, 04/10/2016 Results Not on filefrom Last 3 Months Additional Health Concerns Infection Onset Date Last Indicated Rule-Out C.diff 12/12/2020 12/12/2020 Insurance Payer Benefit Plan / Subscriber ID Effective Dates Phone Addre ss Type Group [facility] [id number] 2020-S[place] [id number] [place] [address] Advance Directives Latest Code Status on File Code Status Date Activated Date Inactivated Comments Full Code 12/26/2011 7:11 AM 12/26/2011 2:47 PM Care Teams Air Purifier Servicer Relationship Specialty Start Date End Date Evelyn Arnett, WARP CHANGER PCP - General Nurse Practitioner 12/27/20 [address] [place] [address]
--- OUTSIDE RECORDS SUMMARY | 2022-07-02 11:08 | XMS_ITS | Encounter Summary ---
:1990 Author Organization [place] Address [facility] [place] [address] Care Team Providers Name Role Phone Blank Lemos MD Primary Care Provider Blank Lemos MD Unavailable Anabell Shannon Unavailable Unavailable Sharita Frias MD Unavailable Reason for Referral Diagnostic Imaging Ultrasound (Routine) - Pending Review Specialty Diagnoses / Procedures Referred By Contact Refer red To Contact Diagnoses related condition, antepartum Carmencita Ortiz, Procedures [address] [address] Referral ID Status Reason Start Date Expiration Date Visits V isits Requested Authorized [id number] Pending 01/26/2022 01/26/2023 1 1 Review Reason for Visit Diagnostic Imaging Ultrasound (Routine) - Pending Review Specialty Diagnoses / Procedures Referred By Contact Refer red To Contact Diagnoses related condition, antepartum Carmencita Ortiz, Procedures [address] [address] Referral ID Status Reason Start Date Expiration Date Visits V isits Requested Authorized [id number] Pending 01/26/2022 01/26/2023 1 1 Review Encounter Details Date Type Department Care Team Description 02/05/2022 Hospital Encounter [facility] Federico Ortiz APRN BPM [facility] [address] [place] [address] related Maternal Aimee Aguilar MD [address] [place] [address] condition, Medicine Center antepartum [place] [address] [place] [address] Social History Tobacco Use Types [...] Procedure Name Priority Date/Time Associated Comments Diagnosis [facility] US COMPREHENSIVE Routine 02/05/2022 11:12 relate d Results for this SINGLE AM CDT condition, procedure are i n antepartum the results section. documented in this encounter Results [facility] US Comprehensive Single (02/05/2022 11:12 AM [...] ABREU Study Date: 02/05/2022 10:22am Pat. NO: [id number] Referring ??MD: COCO ORTIZ Site: [facility] Bender Helper: Dion mora RDMS : 1990 Age: 32 [...] lb 11 ? oz EFW by ?Hadlock ([id number]-FL) Head / Face / Neck Biometry: Compensation And Hris Analyst ? 5.4 ? mm CM ?3.2 ? [...] vena cava. Inferior vena cava. 3-vessel view. 5-mvakej-ljugauz view. Cardiac position. ? Cardiac size. Cardiac [...] a comprehensive ultrasound. She is referred from [place] for BMI > 40. I discussed the findings on today's ultr asound with the patient. I reviewed the limitations of ultrasound both in detecting aneuploidy and structural abnormalities. Ultrasound, when views completed, can routinely dete ct 80-90% of structural abnormalities. She had low risk cell free DNA for genetic screening this . [facility] to reassess anatomy that was suboptimally seen today. Additional surveillance is recommended in the (growth US every 4-6 weeks, weekly BPP at 34 weeks) and I assume that this will be done in [place]. Return to primary provider for continued care. If you have questions regarding today's evaluation or if we can be of further service, please contact the Maternal- Medicine Center. Procedure Note Aimee Aguilar MD - 02/05/2022Form atting of this note might be different from the original. Comprehensive Pat. Name:Noemi ABREU Date: 10:22am Pat. NO: [id number] MD:CARMENCITA ORTIZ Site:[facility]:Dion Cruz RDMS :1990Age:32 INDICATION [...] 0 lb 11 oz EFW by Hadlock ([id number]-FL) Head / Face / Neck Biometry: Compensation And Hris Analyst 5.4 mm CM 3.2 mm Nuchal fold [...] vena cava. Inferior vena cava. 3-vessel view. 5-gvuboy-gxlagcy view. Cardiac position. Cardiac size. Cardiac rhythm. [...] a comprehensive ultrasound. She is referred from [place] for BMI > 40. I discussed the findings on today's ultr asound with the patient. I reviewed the limitations of ultrasound both in detecting aneuploidy and structural abnormalities. Ultrasound, when views completed, can routinely dete ct 80-90% of structural abnormalities. She had low risk cell free DNA for genetic screening this . Follow-up is scheduled here [facility] to reassess anatomy that was suboptimally seen today. Additional surveillance is recommended in the (growth US every 4-6 weeks, weekly BPP at 34 weeks) and I assume that this will be done in [place]. Return to primary provider for continued care. [...] cervix appears long and closed. Carmencita Ortiz CAMPAIGN CONSULTANT BPM ANALYST IMG MFM US ORDERABLES documented in this encounter Visit Diagnoses Diagnosis related condition, antepartum documented in this encounter Additional Health Concerns Assessment Noted Time PHQ-9 Depression Total Score: 2 11/06/2020 3:02 PM CDT documented as of this encounter Care Teams Sr. Operations Manager Relationship Specialty Start Date End Date Blank Lemos, PCP - General Internal Medicine 04/22/18 [facility] KISHAN RENO [phone] Blank Lemos, Assigned PCP 04/25/18 [facility] KISHAN RENO [phone] Anabell Shannon Personal Advocate & 10/25/20 Liaison (PAL) Sharita Frias, Assigned OBGYN Provider 01/25/22 05/09/22 [address] [place] [address] documented as of this encounter
--- OUTSIDE RECORDS SUMMARY | 2022-07-02 11:08 | XMS_ITS | Encounter Summary ---
:1990 Author Organization [facility] Address [address] [place] [address] Care Team Providers Name Role Phone Blank Lemos MD Primary Care Provider Blank Lemos MD Unavailable Kathleen Lacy CNM Unavailable Reason for Visit Reason Comments Laboring Auth/Cert Specialty Diagnoses / Procedures Referred By Contact Refer red To Contact public affairs director Diagnoses Indication for care in labor or delivery Indication for care in labor or delivery Rh Procedures L AND D [address] [place], [place] [address] Phone: Fax: Referral ID Status Reason Start Date Expiration Date Visits Requ ested Visits Authorized [id number] 1 1 Encounter Details Date Type Department Care Team Description 09/28/2020 - [facility] Stevan Jones, CNM [address] [place] [address] Indication for care in labor or delivery (Primary Dx); 09/30/2020 Encounter [facility] [place] [address] [place], [place] [id number] Postoperative state [address] [place] [address] Social History Tobacco Use [...] with No / Unsure 09/28/2020 8:47 AM SELF PROPELLED MINING MACHINE OPERATOR someone who was confirmed or suspected to have Coronavirus / COVID-19? documented as of this encounter Last Filed Vital Signs Vital Sign Reading Time Taken Comments Blood Pressure 118/72 09/30/2020 9:40 AM SELF PROPELLED MINING MACHINE OPERATOR Pulse 76 09/30/2020 9:40 AM SELF PROPELLED MINING MACHINE OPERATOR Temperature 36.8 ??C (98.2 ??F) 09/30/2020 9:40 AM SELF PROPELLED MINING MACHINE OPERATOR Respiratory Rate 18 09/30/2020 9:40 AM SELF PROPELLED MINING MACHINE OPERATOR Oxygen Saturation 98% 09/29/2020 9:00 AM SELF PROPELLED MINING MACHINE OPERATOR Inhaled Oxygen Concentration - - Weight 112.9 kg (249 lb) 09/28/2020 8:52 AM SELF PROPELLED MINING MACHINE OPERATOR Height 160 cm (5' 3) 09/28/2020 8:52 AM SELF PROPELLED MINING MACHINE OPERATOR Body Mass Index 44.11 09/28/2020 8:52 AM SELF PROPELLED MINING MACHINE OPERATOR documented in this encounter Discharge Summaries Danial Falcon MD - 09/30/2020 9:24 AM CST [facility] Obstetrics Post-Op / Discharge Summary Note Assessment and Plan: Assessment: Post-operative day #2 Low transverse primary section L&D complications: A 30 year oldlhi-oryx-ozw at 40w1d weeks estimated gestational age admitted [...] phosphate (FLEET ENEMA) 1 enema ??? Tdap (dgnpwld-wzwicfuxnr-kdinx pertussis) (ADACEL) injection 0.5 mL ??? tranexamic [...] studies have been ordered Danial Falcon MD PROPELLED MINING MACHINE OPERATOR documented in this encounter Discharge Instructions Discharge InstructionsLakeshia Mullen RN - 09/30/2020 1:40 PM CST Postop Instructions Make an appointment to be seen in the clinic in 6 weeks. [facility]: [phone] Activity ?? Do not lift more than [...] questions or concerns after you return home. PROPELLED MINING MACHINE OPERATOR documented in this encounter Medications at [...] Falcon MD - 09/30/2020 9:21 AM CST [facility] Obstetrics Post-Op / Progress Note Assessment and Plan: Assessment: Post-operative day #2 Low transverse primary section L&D complications: A 30 year oldikg-ytri-jzs at 40w1d weeks estimated gestational age admitted [...] phosphate (FLEET ENEMA) 1 enema ??? Tdap (druwkeg-yepeutoumo-znfxh pertussis) (ADACEL) injection 0.5 mL ??? tranexamic [...] studies have been ordered Danial Falcon MD PROPELLED MINING MACHINE OPERATOR Dina Germain MD - 09/29/2020 11:45 [...] prn HReno Jones CNM 09/28/2020 4:36 PM PROPELLED MINING MACHINE OPERATOR Soledad Jones CNM - 09/28/2020 12:51 [...] H. Octavia Jones CNM 09/28/2020 2:12 PM PROPELLED MINING MACHINE OPERATOR Soledad Jones CNM - 09/28/2020 10:48 [...] to Reassess short interval Soledad Jones CNM PROPELLED MINING MACHINE OPERATOR documented in this encounter H&P Notes Wendy Gregg DO - 09/28/2020 7:18 PM CST [facility] Labor and Delivery Consultation note Rena Resendiz [...] orders Prepare for section. Wendy Gregg DO PROPELLED MINING MACHINE OPERATOR Soledad Jones CNM - 09/28/2020 9:09 AM CST [facility] Labor Admission History & Physical Rena Resendiz is a 30 year old with an IUP at 40w1d ; , Partner/support Person: Micah Language Barrier: [place] Clinic: [facility] Provider: Robert Rena Resendiz is [facility] on 09/28/2020 at 9:09 AM History [...] found, no interventions. Pt thinks this happened [id number] ??? TONSILLECTOMY Family History Problem Relation Age [...] orders Britney Jones CNM 09/28/2020 9:23 AM PROPELLED MINING MACHINE OPERATOR documented in this encounter Miscellaneous Notes Plan of Care - Lakeshia Mullen RN - 09/30/2020 2:41 PM CST Discharge instructions reviewed with patient and . Understanding verbalized. Will discharge to home with and baby. PROPELLED MINING MACHINE OPERATOR Plan of Care - Lakeshia Mullen [...] Support persons present. Plan: Anticipate discharge today. PROPELLED MINING MACHINE OPERATOR Plan of Care - Karol Hayden RN - 09/30/2020 2:52 AM CST Pt meeting expected goals for shift. Positive attachment behaviors noted with . Pain managed with scheduled meds - See MAR. Support person Micah at bedside and attentive to pt needs. pt encouraged to complete discharge paperwork/videos. Will continue to monitor and adjust plan as needed. PROPELLED MINING MACHINE OPERATOR Note - Elisabeth Shi RN - [...] questions answered. Encouraged to call for assistance. PROPELLED MINING MACHINE OPERATOR Plan of Care - Kathleen Wright RN - 09/29/2020 7:59 PM CST Pt up ambulating independently. Voiding without difficulty. Incision covered . Reports adequate paincontrol with current pain plan. Family present and supportive. Meeting expected goals. Mother attentive to infants needs. infant, using nipple shield. PROPELLED MINING MACHINE OPERATOR Plan of Care - Maria Del [...] supportive today. Maria Del Rosario Steven RN PROPELLED MINING MACHINE OPERATOR Plan of Care - Kathleen Hurley [...] gluten free diet. FOB here and supportive. PROPELLED MINING MACHINE OPERATOR L&D Delivery Note - Wendy Gregg [...] Procedure Details: See operative note Yue Female-Rena [[id number]] Labor Event Times Labor onset date: 09/28/20 [...] Normal 1:1 continuous labor support provided by?: drywall taper helper/Placenta Date and Time Delivery Date: 09/28/20 Delivery Time: 8:09 PM Placenta Date/Time: 09/28/2020 8:10 PM Vaginal Counts [place] Suture [place] Sponges Instruments Initial counts Added to count [...] 3 Vessels Complications: Nuchal Gases Sent?: Yes [place] Resuscitation Methods: None [place] Measurements Weight: 7 lb 15 oz Length: [...] present?: Neg Delivery (Maternal) (Provider to Complete) ([id number]) Episiotomy: None Perineal lacerations: None Blood Loss Mother: Rena Resendiz #[id number] Start of Mother's Information IO Blood Loss 09/28/20 0530 - 09/29/20 0634 None End of Mother's Information Mother: Rena Resendiz #[id number] Delivery - Provider to Complete ([id number]) Delivering clinician: Wendy Gregg DO CNM Care: [...] Position: Left Occiput Anterior Wendy Gregg DO PROPELLED MINING MACHINE OPERATOR Plan of Care - Maricruz Rogers RN - 09/28/2020 11:48 PM CST Data: Rena Resendiz transferred to [facility] via dividend deposit entry clerk at 1135. Baby transferred via parent's arms. Action: Receiving unit notified of transfer: Yes. Patient and family notified of room change. Reportgiven to Kathleen TOLLIVER at 2330. Belongings sent to receiving unit. Accompanied by Registered Nurse. Oriented patient to surroundings. Call light within reach. ID bands double-checked with receiving RN. Response: Patient tolerated transfer and is stable. PROPELLED MINING MACHINE OPERATOR Op Note - Wendy Gregg DO - 09/28/2020 8:53 PM CST PREOPERATIVE DIAGNOSIS: A 30 year oldovk-igdr-mnn at 40w1d weeks estimated gestational age admitted for labor with arrest of dilation, obesity. POSTOPERATIVE DIAGNOSES: A 30 year oldnwk-evia-wcs at 40w1d weeks estimated gestational age admitted for labor with arrest of dilation, obesity. PROCEDURE: 1. Primary low transverse section. 2. Seprafilm placement for adhesiolysis. COMPLICATIONS: None apparent at time of procedure. ESTIMATED BLOOD LOSS: 400 mL. SURGEON: Wendy Gregg DO. INDICATIONS: A 30 year oldfyx-qlfu-xyk at 40w1d weeks estimated gestational age admitted [...] counts were correct x2. WENDY GREGG DO PROPELLED MINING MACHINE OPERATOR Plan of Care - Maria Del Rosario Steven RN - 09/28/2020 9:19 AM CST 0735: , 40w1d, here for rule out labor. Pt states she has been nelson every 2-2.5 min [id number] this morning. EUM and EFM placed. Admission [...] to progress. Maria Del Rosario Steven, RN PROPELLED MINING MACHINE OPERATOR documented in this encounter Plan of Treatment Scheduled Orders Name Type Priority Associated Diagnoses Order S chedule See Providers Orders Lab Routine Release Upon Ordering for 1 Occurrences sta rting 09/28/2020 documented as of this encounter Procedures Procedure Name Priority Date/Time Associated Comments Diagnosis HEMOGLOBIN Routine 09/29/2020 7:02 AM Indication for care Re sults for this SELF PROPELLED MINING MACHINE OPERATOR in labor or procedure are i n delivery the results section. PLACENTA PATH ORDER Routine 09/28/2020 8:13 PM Re sults for this AND INDICATIONS SELF PROPELLED MINING MACHINE OPERATOR procedure ar e in the results section. SECTION 09/28/2020 7:48 PM Failure to progres s SELF PROPELLED MINING MACHINE OPERATOR in labor TREPONEMA ABS W STAT 09/28/2020 9:23 AM Result s for this REFLEX TO RPR AND SELF PROPELLED MINING MACHINE OPERATOR procedure are in TITER the results section. ABO/RH TYPE AND STAT 09/28/2020 9:23 AM Result s for this SCREEN SELF PROPELLED MINING MACHINE OPERATOR procedure are i n the results section. SARS-COV-2 (COVID-19) STAT 09/28/2020 8:40 AM Results for this VIRUS RT-PCR SELF PROPELLED MINING MACHINE OPERATOR procedure are i n the results section. documented in this encounter Results (ABNORMAL) Hemoglobin (09/29/2020 7:02 AM SELF PROPELLED MINING MACHINE OPERATOR) athologist Signature Hemoglobin 10.7 (L) 11.7 - 15.7 09/29/2020 [place] g/dL 7:42 AM [facility] Specimen Anatomical Collection Method Collection Time Receive d Time (Source) Location / / Volume Laterality Blood specimen 09/29/2020 7:02 AM 021 7:03 (specimen) SELF PROPELLED MINING MACHINE OPERATOR AM SELF PROPELLED MINING MACHINE OPERATOR Wendy Gregg DO LAB - BLOOD ORDERABLES Performing Organization Address City/State/ZIP Code Phon e Number [place] [address] [phone] [place] [address] [phone] Placenta Path Order and Indications (PLACENTA) (09/28/2020 8:13 PM SELF PROPELLED MINING MACHINE OPERATOR) Component Value Ref Test Analysis Performed At [facility] Range Method Time Signature Copath Patient Name: RENA RESENDIZ Report MR#: [id number] Specimen #: [id number] Collected: 09/28/2020 Received: 10/01/2020 Reported: 10/02/2020 12:04 [...] of this testing was completed at the [facility] with the professional compo nent performed at the [facility], [address] [place] [address] ??[phone] ([phone]) CPT Codes: A: 15419-VS8 COLLECTION SITE: Client: [facility] Location: RHOR (R) Specimen Anatomical Collection Method Collection Time Receive d Time (Source) Location / / Volume Laterality Specimen from 09/28/2020 8:13 PM 10/01/19 21 8:32 placenta SELF PROPELLED MINING MACHINE OPERATOR AM SELF PROPELLED MINING MACHINE OPERATOR (specimen) Soledad XIAO Performing Organization Address City/State/ZIP Code Phon e Number [place] Treponema Abs w Reflex to RPR and Titer (09/28/2020 9:23 AM SELF PROPELLED MINING MACHINE OPERATOR) [facility] gist Method Time Signature Treponema Nonreactive NR^Nonrea 09/28/2020 [facility] ctive 5:03 PM SELF PROPELLED MINING MACHINE OPERATOR [facility] Comment: Methodology Change: Test performed on DiaSorin Liaison XL by Treponema pallidum Total Antibodies Assay as of . Specimen Anatomical Collection Method Collection Time Receive d Time (Source) Location / / Volume Laterality Blood specimen 09/28/2020 9:23 AM 021 9:24 (specimen) SELF PROPELLED MINING MACHINE OPERATOR AM SELF PROPELLED MINING MACHINE OPERATOR Soledad Jones CNM LAB - BLOOD ORDERABLES Performing Organization Address City/State/ZIP Code Phon e Number [address] [address] [facility] ABO/Rh type and screen (09/28/2020 9:23 AM SELF PROPELLED MINING MACHINE OPERATOR) [facility] gist Method Time Signature ABO O 09/28/2020 [facility] 10:18 AM [facility] RH(D) Pos [facility] Antibody Neg 09/28/2020 [facility] Screen 10:18 AM [facility] Test Valid [facility] 09/28/2020 [facility] Only At [facility] 9:43 AM [facility] Specimen 10/01/2020 09/28/2020 [facility] Expires 9:43 AM [facility] Specimen Anatomical Collection Method Collection Time Receive d Time (Source) Location / / Volume Laterality Blood specimen 09/28/2020 9:23 AM 021 9:24 (specimen) SELF PROPELLED MINING MACHINE OPERATOR AM SELF PROPELLED MINING MACHINE OPERATOR Soledad Eugenejodie [facility] LAB - BLOOD BANK TEST ORDER Performing Organization Address City/State/ZIP Code Phon e Number M [facility] [address] [place], [place] [address] [phone] [facility] [address] [phone] Asymptomatic SARS-CoV-2 COVID-19 Virus (Coronavirus) by PCR (09/28/2020 8:40 AM SELF PROPELLED MINING MACHINE OPERATOR) [facility] Method Time Signature SARS-CoV-2 Nasopharyngeal 09/28/2020 [place] Virus 8:51 AM [facility] Source SARS-CoV-2 NEGATIVE 09/28/2020 [place] PCR Result 9:13 AM [facility] Comment: SARS-CoV2 (COVID-19) RNA not de tected, presumed negative. SARS-CoV-2 PCR Comment (Note) 09/28/2020 9:13 A [facility] Comment: Testing was performed using [...] or clinical pr esentation suggests COVID-19. M [facility] are certi fied under the Clinical Laboratory Improvement Amendments of 1988 (CLIA-88) as qualified to perform moderate and/or high complexity laboratory testin g. Specimen (Source) Anatomical Collection Method Collection Time Re ceived Time Location / / Volume Laterality Specimen from 09/28/2020 8:40 09/28/2020 nasopharyngeal AM SELF PROPELLED MINING MACHINE OPERATOR 8:51 AM SELF PROPELLED MINING MACHINE OPERATOR structure (specimen) Soledad Jones CNM LAB - MICRO GENERAL ORDERABL ES Performing Organization Address City/State/ZIP Code Phon e Number [place] [address] [address] [phone] documented in this encounter Visit Diagnoses Diagnosis [...] acetaminophen (TYLENOL) tablet Given 09/30/2020 12:04 PM SELF PROPELLED MINING MACHINE OPERATOR 975 mg 975 mg 975 mg, Oral, EVERY 6 HOURS, First dose on Thu09/28/20 at 2330, Maximum acetaminophen dose from all sources = 75 mg/kg/day not to exceed 4 grams/day., Post-procedure Given 09/30/2020 5:42 AM SELF PROPELLED MINING MACHINE OPERATOR 975 mg Given 09/30/2020 12:09 AM SELF PROPELLED MINING MACHINE OPERATOR 975 mg azithromycin 500 mg (ZITHROMAX) in 0.9% New Bag 09/28/2020 7:29 PM SELF PROPELLED MINING MACHINE OPERATOR 500 mg NaCl 250 mL intermittent infusion 500 mg STAT, 500 mg, Intravenous, PRE-OP/PRE-PROCEDURE, Starting on Thu09/28/20 at 1851, For 1 dose, Give no sooner than 60 minutes prior to incision., Indications: Rupture of Membranes AND/OR Labor prior to , Pre-procedure dextrose 5% in lactated ringers infusion New Bag 09/29/2020 2:00 AM SELF PROPELLED MINING MACHINE OPERATOR 125 mL/hr at 125 mL/hr, Intravenous, CONTINUOUS, Subsequent IV at nurse's discretion. DC IV when tolerating fluids or at nurse's discretion & saline lock., Post-procedure, Starting on Thu09/28/20 at 2330, Until Thu09/30/20 at 1703 escitalopram (LEXAPRO) tablet 20 mg Given 09/29/2020 10:37 PM SELF PROPELLED MINING MACHINE OPERATOR 20 mg 20 mg, Oral, DAILY, First dose on Thu09/29/20 at 0900 fentaNYL (PF) (SUBLIMAZE) injection 50-100 Given 09/28/2020 9:04 AM SELF PROPELLED MINING MACHINE OPERATOR 100 mcg mcg 50-100 mcg, Intravenous, EVERY [...] 2 mcg/mL, New Syringe/Cartridge 09/28/2020 6:02 PM SELF PROPELLED MINING MACHINE OPERATOR bupivacaine (MARCAINE) 0.125% in NS premix for [...] set., Routine New Syringe/Cartridge 09/28/2020 10:08 AM SELF PROPELLED MINING MACHINE OPERATOR ibuprofen (ADVIL/MOTRIN) tablet 800 mg Given 09/30/2020 10:24 AM SELF PROPELLED MINING MACHINE OPERATOR 800 mg 800 mg, Oral, EVERY 6 HOURS, First dose on 09/29/20 at 2100, Give with food., Post-procedure Given 09/30/2020 4:33 AM SELF PROPELLED MINING MACHINE OPERATOR 800 mg Given 09/29/2020 10:36 PM SELF PROPELLED MINING MACHINE OPERATOR 800 mg ketorolac (TORADOL) injection 30 mg Given 09/29/2020 4:01 PM SELF PROPELLED MINING MACHINE OPERATOR 30 mg 30 mg, Intravenous, EVERY 6 [...] minutes. , Post-procedure Given 09/29/2020 9:41 AM SELF PROPELLED MINING MACHINE OPERATOR 30 mg Given 09/29/2020 3:48 AM SELF PROPELLED MINING MACHINE OPERATOR 30 mg lactated ringers BOLUS 1,000 mL New Bag 09/28/2020 9:06 AM SELF PROPELLED MINING MACHINE OPERATOR 1,000 mLs 999 mL/hr Intravenous, 1,000 mL, ONCE PRN, IF patient to have epidural or intrathecal narcotics and NOT pre-eclamptic, Starting on Thu09/28/20 at 0832, For 1 dose, IV bolus must be initiated 15-30 min prior to epidural or intrathecal, then IV fluids per labor orders. Nurse may discontinue this order if duplicate. lactated ringers infusion New Bag 09/28/2020 6:04 PM SELF PROPELLED MINING MACHINE OPERATOR 125 mL/hr at 125 mL/hr, Intravenous, CONTINUOUS, Starting on Thu09/28/20 at 0900, Until Thu09/28/20 at 2317 New Bag 09/28/2020 10:09 AM SELF PROPELLED MINING MACHINE OPERATOR 125 mL/hr naloxone (NARCAN) injection 0.2 mg [...] injection 4 mg Given 09/28/2020 4:24 PM SELF PROPELLED MINING MACHINE OPERATOR 4 mg 4 mg, Intravenous, EVERY 6 HOURS PRN, nausea, vomiting, Administer over 2-5 Minutes, Starting on Thu09/28/20 at 0832, If nausea not resolved in 15 minutes, notify provider before proceeding to prochlorperazine (COMPAZINE) [if ordered]. Irritant. For ordered IV doses 0.1-4 mg, give IV Push undiluted over 2-5 minutes. ondansetron (ZOFRAN) injection 4 mg Given 09/29/2020 12:56 AM SELF PROPELLED MINING MACHINE OPERATOR 4 mg 4 mg, Intravenous, EVERY 6 HOURS PRN, nausea, vomiting, Administer over 2-5 Minutes, Starting on Thu09/28/20 at 2316, If nausea not resolved in 15 minutes, notify provider before proceeding to prochlorperazine (COMPAZINE) [if ordered]. Irritant. For ordered IV doses 0.1-4 mg, give IV Push undiluted over 2-5 minutes., Post-procedure oxyCODONE (ROXICODONE) tablet 5 mg Given 09/29/2020 10:36 PM SELF PROPELLED MINING MACHINE OPERATOR 5 mg 5 mg, Oral, EVERY 4 HOURS PRN, other, pain control or improvement in physical function. Hold dose for analgesic side effects., Starting on Thu09/28/20 at 2316, Notify provider to assess for uncontrolled pain or analgesic side effects. Hold while on SENIOR ANALYST MARKET INTELLIGENCE or with regular IV opioid dosing. Maximum total is 60 mg in 24 hours., Post-procedure Given 09/29/2020 1:04 PM SELF PROPELLED MINING MACHINE OPERATOR 5 mg oxytocin (PITOCIN) 30 units in New Bag 09/28/2020 9:40 PM SELF PROPELLED MINING MACHINE OPERATOR 100 mL/hr 100 mL/hr 500 mL 0.9% [...] mL/hr units in 500 mL 0.9% PM SELF PROPELLED MINING MACHINE OPERATOR NaCl infusion 1-24 arslan-units/min (1-24 mL/hr), Intravenous, [...] ripening medication. Rate/Dose Change 09/28/2020 4:29 PM SELF PROPELLED MINING MACHINE OPERATOR 5 arslan-units/min 5 mL/hr Rate/Dose Verify 09/28/2020 3:44 PM SELF PROPELLED MINING MACHINE OPERATOR 4 arslan-units/min 4 mL/hr senna-docusate (SENOKOT-S/PERICOLACE) Given [...] loose stools., Post-procedure Given 09/29/2020 10:36 PM SELF PROPELLED MINING MACHINE OPERATOR 1 tablet Given 09/29/2020 9:50 AM SELF PROPELLED MINING MACHINE OPERATOR 1 tablet senna-docusate (SENOKOT-S/PERICOLACE) 8. 6-50 MG per tablet 2 tablet 2 tablet, Oral, 2 TIMES DAILY, First dos e on Thu09/28/20 at 2330, Hold for loose stools. Preferred agent for constipation related to op ioids. Hold for loose stools., Post-procedure simethicone (MYLICON) chewable tablet 80 mg Given 09/30/2020 3:27 AM SELF PROPELLED MINING MACHINE OPERATOR 80 mg 80 mg, Oral, 4 TIMES DAILY PRN, other, gas, Starting on Thu09/28/20 at 2316, Chew., Post-procedure sodium chloride (PF) 0.9% PF flush 3 mL Given 09/29/2020 4:01 PM SELF PROPELLED MINING MACHINE OPERATOR 3 mLs 3 mL, Intracatheter, EVERY 8 HOURS PRN, other, to lock peripheral IV dormant line, Starting on Thu09/28/20 at 2316, Post-procedure sodium citrate-citric acid (BICITRA) solution Given 7:29 PM SELF PROPELLED MINING MACHINE OPERATOR 30 mLs 30 mL 30 mL, Oral, PRE-OP/PRE-PROCEDURE, Starting on Thu09/28/20 at 1850, For 1 dose, For gastric pH neutralization. GIVE WITHIN 45 minutes PRIOR TO SURGICAL PROCEDURE., Pre-procedure documented in this encounter Active and Recently Administered Medications Times are shown in SELF PROPELLED MINING MACHINE OPERATOR. Scheduled Medication Order 09/28/2020 09/29/2020 09/30/2020 [...] minutes PRIOR TO SURGICAL PROCEDURE., Pre-procedure Tdap (mvzgrwo-btzcpavbjg-vgmea pertussis) (ADACEL) injection 0.5 mL 1000 (Canceled [...] divided doses [facility]. Do NOT give if patient has a [...] For ordered IV doses 0.1-2mg give I LABOR RELATIONS WORKER. Give each 0.4mg over 15 seconds in [...] Steven, RN)[phone] (Given - Provider: Kathleen Wright, URNULY) 5 mg, Oral, EVERY 4 HOURS PRN, other, pa in control or improvement in physical function. Hold dose for analgesic side effects., Starting Thu09/28/20 at 2316, Notify provider to assess for uncontrolled pa in or analgesic side effects. Hold while on SENIOR ANALYST MARKET INTELLIGENCE or with regular IV opioid dosing. Maximum [...] documented as of this encounter Care Teams Commercial Real Estate Agent Relationship Specialty Start Date End Date Blank Lemos MD PCP - General Internal Medicine 04/22/[address] [place] [address] KISHAN RENO [phone] Blank Lemos MD Assigned PCP 04/25/[address] [place] [address] KISHAN RENO [phone] Kathleen Lacy CNM Assigned OBGYN Provider 06/01/20 11/23/21 [address] [place], [place] [address] documented as of this encounter
--- OUTSIDE RECORDS SUMMARY | 2022-07-02 11:08 | XMS_ITS | Encounter Summary ---
:1990 Author Organization [place] Address [facility] 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); Visit Clinic Latanya Hurt MD Routine follow-up [address] [place] [id number] [place], [place] [phone] [id number] Social History Tobacco Use Types Packs/Day Years [...] Types DNA Cervical (11/06/2020 2:54 PM CDT) [facility] Method Time Signature HPV Source SurePath 11/06/2020 [place] 2:50 PM CDT [facility] HPV 16 DNA Negative NEG^Negat 11/12/2020 [facility] yakelin 2:05 PM CDT [facility] HPV 18 DNA Negative NEG^Negat 11/12/2020 [facility] 2:05 PM CDT [facility] Other HR HPV Positive (A) NEG^Negat 11/12/2020 [facility] 2:05 PM CDT [facility] Final This patient's sample is pos itive for other HR HPV DNA (types 31, 33, 35, 39, 45, 51, 52, 11/12/2020 [facility] 56, 58, 59, 66 or 68), not H PV 16 or HPV 18 DNA. This result requires clinical correlation 2:05 PM CDT [facility] with concurrent cytology findings. [facility] Comment: This test was developed and its performa nce characteristics determined by the [facility], Molecular Diagnostics Laboratory. It has [...] Cervical Cells 11/06/2020 2:5 0 PM CDT [facility] Specimen Anatomical Collection Method Collection Time Receive d Time (Source) Location / / Volume Laterality Cervical Cells 11/06/2020 2:54 PM 021 2:55 CDT PM CDT Sharita Salinas MD LAB - BLOOD ORDERABLES Performing Organization Address City/State/ZIP Code Phon e Number [facility] [address] [place] [address] [facility] [address] [place] [address] [facility] Pap imaged thin layer diagnostic with HPV (select HPV order below) (11/06/2020 2:50 PM CDT) Component Value Ref Test Analysis Performed At Patholo gist Range Method Time Signature PAP NIL COPATH Copath Report COPATH Patient Name: RENA RESENDIZ MR#: [id number] Specimen #: [id number] Collected: 11/06/2020 Received: 11/07/2020 Reported: 11/08/2020 15:09 [...] or other cancer s. COLLECTION SITE: Client: ??[facility] Location: TERESSA (Sandra) The technical component of this testing was completed at the [facility], with the professional compo nent performed at the [facility], [address] [place] [address], [place] [address] ([phone]) Specimen (Source) Anatomical Collection Method Collection Time [...] documented as of this encounter Care Teams Personnel Scheduler Relationship Specialty Start Date End Date Blank Lemos, PCP - General Internal Medicine [facility] KISHAN RENO [phone] Blank Lemos, Assigned PCP 04/25/18 [facility] [place] [phone] Kathleen Lacy CNM Assigned OBGYN Provider 06/01/20 11/23/21 [address] [place] [address] Anabell Shannon Personal Advocate & 10/25/20 Liaison (PAL) documented as of this encounter
--- OUTSIDE RECORDS SUMMARY | 2022-07-02 11:08 | XMS_ITS | Encounter Summary ---
:1990 Author Organization [place] Address [address] [place] [address]. [place] [address] Care Team Providers Name Role Phone Blank Lemos MD Primary Care Provider Blank Lemos MD Unavailable Kathleen Lacy CNM Unavailable Anabell Shannon Unavailable Unavailable Reason for Visit Reason Comments Care Delivered a girl weighing 7 lbs 15 oz on 09/28/2020 via Contraception Would like the mini pill Encounter Details Date Type Department Care Team Description 11/05[facility] MD Blu follow-up (Primary [place] [address] Dx) [address] [place], [place] [address] [address] [place], [place] [phone] [address] (Work) [phone] Social History Tobacco Use Types Packs/Day Years [...] Body Mass Index 41.1 09/28/2020 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 KISHAN RENO [address] Kathleen Lacy CNM Assigned OBGYN Provider 06/01/20 11/23/21 [place] [address] Anabell Shannon Personal Advocate & 10/25/20 Liaison (PAL) documented as of this encounter
--- OUTSIDE RECORDS SUMMARY | 2022-07-02 11:08 | XMS_ITS | Encounter Summary ---
:1990 Author Organization [place] Address [address] [place] [address] Care Team Providers Name Role Phone Blank [...] documented as of this encounter Care Teams Tag Meter Operator Relationship Specialty Start Date End Date Blank Lemos, PCP - General Internal Medicine 04/22/[address] [place] [address] KISHAN RENO [phone] Blank Lemos, Assigned PCP 04/25/[address] [place] [address] KISHAN RENO [phone] Anabell Shannon Personal Advocate & 10/25/20 Liaison (PAL) Sharita Frias, Assigned OBGYN Provider 01/25/22 05/09/22 [address] [place] [address] documented as of this encounter
--- OUTSIDE RECORDS SUMMARY | 2022-07-02 11:09 | XMS_ITS | Encounter Summary ---
:1990 Author Organization [place] Address [address] [place] [address] Care Team Providers Name Role Phone Blank [...] with No / Unsure 08/27/2020 1:55 PM TEENAGE BABYSITTER someone who was confirmed or suspected to have Coronavirus / COVID-19? documented as of this encounter Plan of Treatment Not on filedocumented as of this encounter Visit Diagnoses Not on filedocumented in this encounter Additional Health Concerns Assessment Noted Time PHQ-9 Depression Total Score: 5 12/06/2020 7:02 AM CDT documented as of this encounter Care Teams Airport Operations Duty Manager Relationship Specialty Start Date End Date Blank Lemos MD PCP - General Internal Medicine 04/22/[address] [place] [address] KISHAN RENO [phone] Blank Lemos MD Assigned PCP 04/25/[address] [place] [address] KISHAN RENO [phone] Kathleen Lacy CNM Assigned OBGYN Provider 06/01/20 11/23/21 [address] [place] [address]67 documented as of this encounter
--- OUTSIDE RECORDS SUMMARY | 2022-07-02 11:09 | XMS_ITS | Encounter Summary ---
:1990 Author Organization [place] Address [facility] [place] [address] Care Team Providers Name Role Phone Blank Lemos MD Primary Care Provider Blank Lemos MD Unavailable Kathleen Lacy CNM Unavailable Reason for Visit Reason Onset Date Comments Appointment 08/27/2020 need to schedule f/u Encounter Details Date Type Department Care Team Description 08/27/2020 Telephone [facility] Blank Lemosil nt (need to Clinic Dev Camp MD schedule f/u ) [address] [facility] [address] [place] [address] [place] [address] [phone] Social History Tobacco Use Types Packs/Day Years [...] with No / Unsure 09/28/2020 8:47 AM LANG INTERPRETER someone who was confirmed or suspected to have Coronavirus / COVID-19? documented as of this encounter Miscellaneous Notes Telephone Encounter - Nahed Carrillo MA - 10/08/2020 10:05 AM CST See below; closing encounter. VITALY ALEJANDRO MA on 10/08/2020 at 10:05 AM INTERPRETER Telephone Encounter - Melodie Curiel - 08/29/2020 12:18 PM CST Sent SureVisit message that patient has appt for a physical in December with Dr. Lemos. INTERPRETER Telephone Encounter - Nahed Carrillo MA - 08/27/2020 2:[address] Lemos: Schedule follow up physical in November/December. I left message for patient to return call. VITALY ALEJANDRO MA on 08/27/2020 at 2:28 PM INTERPRETER documented in this encounter Plan of Treatment Not on filedocumented as of this encounter Visit Diagnoses Not on filedocumented in this encounter Additional Health Concerns Assessment Noted Time PHQ-9 Depression Total Score: 5 12/06/2020 7:02 AM CDT documented as of this encounter Care Teams Child Psychologist Relationship Specialty Start Date End Date Blank Lemos MD PCP - General Internal Medicine 04/22/18 [address] [facility] KISHAN RENO [phone] Blank Lemos MD Assigned PCP 04/25/18 [address] [facility] KISHAN RENO [phone] Kathleen Lacy CNM Assigned OBGYN Provider 06/01/20 11/23/21 [place] [address] documented as of this encounter
--- OUTSIDE RECORDS SUMMARY | 2022-07-02 11:09 | XMS_ITS | Encounter Summary ---
:1990 Author Organization [place] Address [address] [place] [address] Care Team Providers Name Role Phone Blank [...] with No / Unsure 09/10/2020 8:39 AM FRUIT STUFFER someone who was confirmed or suspected to have Coronavirus / COVID-19? documented as of this encounter Plan of Treatment Not on filedocumented as of this encounter Visit Diagnoses Not on filedocumented in this encounter Additional Health Concerns Assessment Noted Time PHQ-9 Depression Total Score: 5 12/06/2020 7:02 AM CDT documented as of this encounter Care Teams Practice Business Asst Relationship Specialty Start Date End Date Blank Lemos MD PCP - General Internal Medicine 04/22/[address] [place] [address] KISHAN RENO [phone] Blank Lemos MD Assigned PCP 04/25/[address] [place] [address] KISHAN RENO [phone] aKthleen Lacy CNM Assigned OBGYN Provider 06/01/20 11/23/21 [address] [place] [id number] documented as of this encounter
--- OUTSIDE RECORDS SUMMARY | 2022-07-02 11:09 | XMS_ITS | Encounter Summary ---
:1990 Author Organization [place] Address [facility] [place] [address] Care Team Providers Name Role Phone Blank [...] Weeks Follow Up [address] [place] [address] Referral ID Status Reason Start Date Expiration Date Visits Requ ested Visits Authorized [id number] Closed 08/20/2020 08/20/2021 1 1 Encounter Details Date Type Department Care Team Description 09/03/2020 Ancillary [facility] Robert, Encounter for Procedure Clinic [facility] YARELI Rowe supervision of [address] normal f irst [address] in third [address] [place], [place] [phone] Social History Tobacco Use Types Packs/Day Years [...] with No / Unsure 09/03/2020 1:45 PM BIOLOGY SPECIALIST someone who was confirmed or suspected to have Coronavirus / COVID-19? documented as of this encounter Plan of Treatment Not on filedocumented as of this encounter Procedures Procedure Name Priority Date/Time Associated Diagnosis Comme nts US OB FOLLOW UP >14 Routine 09/03/2020 1:47 PM Encounter for R esults for this WEEKS BIOLOGY SPECIALIST supervision of procedure are in normal first the results in third section. trimester documented in this encounter Results US OB >14 Weeks Follow Up (09/03/2020 1:47 PM BIOLOGY SPECIALIST) Anatomical Region Laterality Modality Abdomen/Pelvis Ultrasound Specimen (Source) Anatomical Location Collection Method / Collectio n Time Received Time / Laterality Volume Impressions 09/03/2020 4:32 PM BIOLOGY SPECIALIST ? Mendoza Gestation. ?? presentation: Cephalic [...] No gross anomalies observed. Kori Booker MD [facility] Obstetrics and Gynecology [facility] Narrative 09/03/2020 4:32 PM BIOLOGY SPECIALIST [facility] Obstetrics and Gynecology ?? ULTRASOUND [...] documented as of this encounter Care Teams Hat Ironer Relationship Specialty Start Date End Date Blank Lemos MD PCP - General Internal Medicine 04/22/[address] [place] [address] K[place]AN RENO [phone] Blank Lemos MD Assigned PCP 04/25/[address] [place] [address] KISHAN RENO [phone] Kathleen Lacy CNM Assigned OBGYN Provider 06/01/20 11/23/21 [address] [place] [address] documented as of this encounter
--- OUTSIDE RECORDS SUMMARY | 2022-07-02 11:09 | XMS_ITS | Encounter Summary ---
:1990 Author Organization [place] Address [address] [place] [address] Care Team Providers Name Role Phone Blank Lemos MD Primary Care Provider Blank Lemos MD Unavailable Kathleen Lacy CNM Unavailable Encounter Details Date Type Department Care Team Description 08/16/2020 Orders Only [facility] Taylor Gonsales RN [facility] [place] [address] [place] [address] [address] [place] [address] Social History Tobacco Use Types [...] with No / Unsure 08/06/2020 1:53 PM MEMBER SERVICES COORDINATOR someone who was confirmed or suspected to [...] as of this encounter Care Teams Asbestos Pipe Supervisor Relationship Specialty Start Date End Date Blank Lemos MD PCP - General Internal Medicine 04/22/[address] [place] [address] KISHAN RENO [phone] Blank Lemos MD Assigned PCP 04/25/[address] [place] [address] K[place]AN RENO [address] Kathleen Lacy CNM Assigned OBGYN Provider 06/01/20 11/23/21 [address] [place] [address] documented as of this encounter
--- OUTSIDE RECORDS SUMMARY | 2022-07-02 11:09 | XMS_ITS | Encounter Summary ---
:1990 Author Organization [place] Address [facility] [place] [address] Care Team Providers Name Role Phone Blank Lemos MD Primary Care Provider Blank Lemos MD Unavailable Kathleen Lacy CNRadha Unavailable Anabell Shannon Unavailable Unavailable Reason for Visit Reason Comments Video Visit [phone] Depression Encounter Details Date Type Department Care Team Description 08/27/2020 Virtual Visit [facility] Blank Lemos anxiety disorder; Clinic Dev Camp MD Bipolar I disorder (H) [address] [place] [facility] [address] [place]ÉNDEZ [address] KISHAN Méndez [address] Social History Tobacco Use [...] with No / Unsure 10/18/2020 2:11 PM RAW SCALES OPERATOR someone who was confirmed or suspected [...] Take care, Blank Lemos MD Internal Medicine/Pediatrics [facility] SCALES OPERATOR documented in this encounter Progress Notes Blank Lemos MD - 08/27/2020 1:55 PM CST Rena is a 30 year old who is being evaluated via a billable video visit. How would you like to obtain your AVS? MyChart If the video visit is dropped, the invitation should be resent by: Text to cell phone: [phone] Will anyone else be joining your video [...] Take care, Blank Lemos MD Internal Medicine/Pediatrics [facility] Return in about 3 months (around 11/25/2020) for Routine preventive, with me, in person. Blank Lemos MD [facility] Chase is a 30 year [...] (pt. Location): Home Distant Location (provider location): [facility] DEV Platform used for Video Visit: Doximity SCALES OPERATOR documented in this encounter Nursing Notes Nahed Carrillo MA - 08/27/2020 1:55 PM CST Left message for patient to return call to schedule follow up physical in November/December. VITALY ALEJANDRO MA on 08/27/2020 at 2:27 PM SCALES OPERATOR documented in this encounter Plan of Treatment Not on filedocumented as of this encounter Visit Diagnoses Diagnosis Generalized anxiety disorder Bipolar I disorder (H) Bipolar I disorder, most recent episode (or current) unspecified documented in this encounter Additional Health Concerns Assessment Noted Time PHQ-9 Depression Total Score: 5 12/06/2020 7:02 AM CDT documented as of this encounter Care Teams Rn Gastroenterology Relationship Specialty Start Date End Date Blank Lemos, PCP - General Internal Medicine 04/22/[address] [place] [address] K[place]AN RENO [phone] Blank Lemos, Assigned PCP 04/25/18 [facility] K[place]AN R[place] [phone] Kathleen Lacy CNM Assigned OBGYN Provider 06/01/20 11/23/21 [place] [address] Anabell Shannon Personal Advocate & 10/25/20 Liaison (PAL) documented as of this encounter
--- OUTSIDE RECORDS SUMMARY | 2022-07-02 11:09 | XMS_ITS | Encounter Summary ---
:1990 Author Organization [place] Address [address] [place] [address] Care Team Providers Name Role Phone Blank [...] with No / Unsure 08/20/2020 1:54 PM WANIGAN CLERK someone who was confirmed or suspected to have Coronavirus / COVID-19? documented as of this encounter Plan of Treatment Not on filedocumented as of this encounter Visit Diagnoses Not on filedocumented in this encounter Additional Health Concerns Assessment Noted Time PHQ-9 Depression Total Score: 10 02/02/2020 8:23 AM CD T documented as of this encounter Care Teams Supervising Producer Relationship Specialty Start Date End Date Blank Lemos MD PCP - General Internal Medicine 04/22/[address] [place] [address] KISHAN RENO [phone] Blank Lemos MD Assigned PCP 04/25/[address] [place] [address] KISHAN RENO [phone] Kathleen Lcay CNM Assigned OBGYN Provider 06/01/20 11/23/21 [address] [place] [id number] documented as of this encounter
--- OUTSIDE RECORDS SUMMARY | 2022-07-02 11:09 | XMS_ITS | Encounter Summary ---
:1990 Author Organization [place] Address [facility] [place] [address] Care Team Providers Name Role Phone Blank [...] Weeks Follow Up [address] [place] [address] Referral ID Status Reason Start Date Expiration Date Visits Requ ested Visits Authorized [id number] Closed 08/20/2020 08/20/2021 1 1 AGE INSPECTOR Reason for Visit Reason Comments Care 34w 4d, c/o leg cramps and r estless legs, also period like cramps Encounter Details Date Type Department Care Team Description 08/20/2020 Office [facility] Chapo Cat er for supervision of normal first in third trimester (Primary Dx); Visit [facility] YARELI Rowe Pelvic pain affecting in third trimester, antepartum; [place] [address] Excessive weight gain during in third trimester [address] [place], [place] [address] [address] [place], [place] [phone] [address] (Work) [phone] Social History Tobacco Use Types Packs/Day Years [...] with No / Unsure 08/20/2020 1:54 PM SAUSAGE INSPECTOR someone who was confirmed or suspected to have Coronavirus / COVID-19? documented as of this encounter Last Filed Vital Signs Vital Sign Reading Time Taken Comments Blood Pressure 122/70 08/20/2020 1:58 PM SAUSAGE INSPECTOR Pulse - - Temperature - - Respiratory Rate - - Oxygen Saturation - - Inhaled Oxygen Concentration - - Weight 112.5 kg (248 lb) 08/20/2020 1:58 PM SAUSAGE INSPECTOR Height - - Body Mass Index 43.93 [...] H. Octavia Jones CNM 08/20/2020 4:56 PM AGE INSPECTOR documented in this encounter Nursing Notes Luz [...] HM Due: NONE Luz Maria Abreu CMA AGE INSPECTOR documented in this encounter Plan of Treatment Not on filedocumented as of this encounter Procedures Procedure Name Priority Date/Time Associated Comments Diagnosis UA WITH MICROSCOPIC Routine 08/20/2020 2:30 PM Pelvic pain Re sults for this AND REFLEX TO CULTURE SAUSAGE INSPECTOR affecting procedure are in in third trimester, the resu lts antepartum section. URINE CULTURE Routine 08/20/2020 2:30 PM Pelvic pain Results for this SAUSAGE INSPECTOR affecting procedur e are in in third trimester, the resu lts antepartum section. documented in this encounter Results US OB >14 Weeks Follow Up (09/03/2020 1:47 PM SAUSAGE INSPECTOR) Anatomical Region Laterality Modality Abdomen/Pelvis Ultrasound Specimen (Source) Anatomical Location Collection Method / Collectio n Time Received Time / Laterality Volume Impressions 09/03/2020 4:32 PM SAUSAGE INSPECTOR ? Mendoza Gestation. ?? presentation: Cephalic Placenta: [...] Kori Booker MD FAC Obstetrics and Gynecology [facility] Narrative 09/03/2020 4:32 PM SAUSAGE INSPECTOR [facility] Obstetrics and Gynecology ?? ULTRASOUND - OB [...] Urine Culture Aerobic Bacterial (08/20/2020 2:30 PM SAUSAGE INSPECTOR) Component Value Ref Test Analysis Performed At [facility] gist Range Method Time Signature Specimen Midstream Urine INFECTIOUS Description DISEASES [facility], [facility] Special Specimen received 08/20/2020 INFECTIOUS Requests in preservative 6:49 PM SAUSAGE INSPECTOR DISEASES [facility]AGNOST[facility]OR[facility], [facility] Culture Micro <10,000 colonies/mL 08/21/2020 INFEC TIOUS urogenital andre 4:51 PM SAUSAGE INSPECTOR DISEASES Susceptibility testing not routinely done [facility]NOST[facility] Specimen (Source) Anatomical Collection Method Collection Time Re ceived Time Location / / Volume Laterality Examination of 08/20/2020 2:30 08/20/2020 2:44 midstream urine PM SAUSAGE INSPECTOR PM SAUSAGE INSPECTOR specimen (procedure) Soledad Jones CNM LAB - MICRO GENERAL ORDERABL ES Performing Organization Address City/State/ZIP Code Phon e Number INFECTIOUS DISEASES DIAGNOSTIC [address] [facility] [address] [address] LABORATORY, [facility] (ABNORMAL) UA with Microscopic reflex to Culture (08/20/2020 2:30 PM SAUSAGE INSPECTOR) Patholo gist Method Time Signature Color Urine Yellow 08/20/2020 [facility] 2:56 PM SAUSAGE INSPECTOR [facility] [place] Appearance Urine Clear 08/20/2020 [facility] 2:56 PM SAUSAGE INSPECTOR [facility] [place] Glucose Urine Negative NEG^Negat 08/20/2020 [facility] yakelin mg/dL 2:56 PM SAUSAGE INSPECTOR [facility] Bilirubin Urine Negative NEG^Negat 08/20/2020 [facility] yakelin 2:56 PM SAUSAGE INSPECTOR [facility] [place] Ketones Urine Negative NEG^Negat 08/20/2020 [place] yakelin mg/dL 2:56 PM [facility] Specific [place] 1.015 1.003 - 08/20/2020 [place] Urine 1.035 2:56 PM [facility] pH Urine 7.0 5.0 - 7.0 08/20/2020 [place] pH 2:56 PM [facility] Protein Albumin Negative NEG^Negat 08/20/2020 [place] Urine yakelin mg/dL 2:56 PM [facility] Urobilinogen 0.2 0.2 - 1.0 08/20/2020 [place] Urine EU/dL 2:56 PM SAUSAGE INSPECTOR [facility] Nitrite Urine Negative NEG^Negat 08/20/2020 [place] yakelin 2:56 PM [facility] Blood Urine Negative NEG^Negat 08/20/2020 [place] yakelin 2:56 PM [facility] Leukocyte Trace (A) NEG^Negat 08/20/2020 [place] Esterase Urine yakelin 2:56 PM [facility] Source Midstream 08/20/2020 [place] Urine 2:43 PM [facility] WBC Urine 5-10 (A) OTO5^0 - 08/20/2020 [place] 5 /HPF 2:56 PM [facility] RBC Urine O - 2 OTO2^O - 08/20/2020 [place] 2 /HPF 2:56 PM [facility] Squamous Few FEW^Few 08/20/2020 [place] Epithelial /LPF /LPF 2:56 PM [facility] Urine [place] Bacteria Urine Moderate (A) NEG^Negat 08/20/2020 [facility] yakelin /HPF 2:56 PM [facility] Amorphous Moderate (A) NEG^Negat 08/20/2020 [place] Crystals yakelin /HPF 2:56 PM [facility] Specimen (Source) Anatomical Collection Method Collection Time Re ceived Time Location / / Volume Laterality Examination of 08/20/2020 2:30 08/20/2020 2:43 midstream urine PM SAUSAGE INSPECTOR PM SAUSAGE INSPECTOR specimen (procedure) Soledad Jones CNM LAB - URINE ORDERABLES Performing Organization Address City/State/ZIP Code Phon e Number [facility] [address] [place], [place] [address] [address] documented in [...] as of this encounter Care Teams Motor Express Clerk Relationship Specialty Start Date End Date Blank Lemos MD PCP - General Internal Medicine 04/22/[address] [place] [address] K[place]AN RENO [phone] Blank Lemos MD Assigned PCP 04/25/[address] [place] [address] K[place] RENO [phone] Kathleen Lacy CNM Assigned OBGYN Provider 06/01/20 11/23/21 [place] [address] documented as of this encounter
--- OUTSIDE RECORDS SUMMARY | 2022-07-02 11:09 | XMS_ITS | Encounter Summary ---
:1990 Author Organization [place] Address [address] [place] [address] Care Team Providers Name Role Phone Blank [...] with No / Unsure 08/06/2020 1:53 PM HAND BUTTON SPLITTER someone who was confirmed or suspected to have Coronavirus / COVID-19? documented as of this encounter Plan of Treatment Not on filedocumented as of this encounter Visit Diagnoses Not on filedocumented in this encounter Additional Health Concerns Assessment Noted Time PHQ-9 Depression Total Score: 10 02/02/2020 8:23 AM CD T documented as of this encounter Care Teams Sifting Operator Relationship Specialty Start Date End Date Blank Lemos MD PCP - General Internal Medicine 04/22/[address] [place] [address] KISHAN RENO [phone] Blank Lemos MD Assigned PCP 04/25/[address] [place] [address] KISHAN RENO [phone] Kathleen Lacy CNM Assigned OBGYN Provider 06/01/20 11/23/21 Cipriano Rivera [place] [address] documented as of this encounter
--- OUTSIDE RECORDS SUMMARY | 2022-07-02 11:09 | XMS_ITS | Encounter Summary ---
:1990 Author Organization [place] Address [address] [facility] [place] [address] Care Team Providers Name Role Phone Blank Lemos MD Primary Care Provider Blank Lemos MD Unavailable Kathleen Lacy CNRadha Unavailable Reason for Visit Reason Comments Care 38w 4d, review restrictions at hospital Encounter Details Date Type Department Care Team Description 09/17/2020 Office [facility] , [facility] YARELI Rowe third trimester [place] [address] (Primary Dx) [address] [place], [place] [address] [address] [place], [place] [phone] [address] (Work) [phone] Social History Tobacco Use Types Packs/Day Years [...] with No / Unsure 09/17/2020 1:55 PM FINANCIAL SERVICE REP someone who was confirmed or suspected to have Coronavirus / COVID-19? documented as of this encounter Last Filed Vital Signs Vital Sign Reading Time Taken Comments Blood Pressure 124/76 09/17/2020 1:59 PM FINANCIAL SERVICE REP Pulse - - Temperature - - Respiratory Rate - - Oxygen Saturation - - Inhaled Oxygen Concentration - - Weight 113.4 kg (250 lb) 09/17/2020 1:59 PM FINANCIAL SERVICE REP Height - - Body Mass Index 44.29 [...] H. Octavia Jones CNM 09/17/2020 2:15 PM NCIAL SERVICE REP documented in this encounter Nursing Notes Luz [...] HM Due: NONE Luz Maria Abreu CMA NCIAL SERVICE REP documented in this encounter Plan of Treatment Not on filedocumented as of this encounter Visit Diagnoses Diagnosis High-risk , third trimester - P rimary documented in this encounter Additional Health Concerns Assessment Noted Time PHQ-9 Depression Total Score: 5 12/06/2020 7:02 AM CDT documented as of this encounter Care Teams Book Agent Relationship Specialty Start Date End Date Blank Lemos MD PCP - General Internal Medicine 04/22/[address] [place] [address] KISHAN RENO [address] Blank Lemos MD Assigned PCP 04/25/[address] [place] [address] KISHAN RENO [phone] Kathleen Lacy, YARELI Assigned OBGYN Provider 06/01/20 11/23/21 [address] K[place] Steward [address] documented as of this encounter
--- OUTSIDE RECORDS SUMMARY | 2022-07-02 11:09 | XMS_ITS | Encounter Summary ---
:1990 Author Organization [place] Address [address] [place] [address] Care Team Providers Name Role Phone Blank [...] with No / Unsure 07/23/2020 1:56 PM DRUM PULLER someone who was confirmed or suspected to have Coronavirus / COVID-19? documented as of this encounter Plan of Treatment Not on filedocumented as of this encounter Visit Diagnoses Not on filedocumented in this encounter Additional Health Concerns Assessment Noted Time PHQ-9 Depression Total Score: 10 02/02/2020 8:23 AM CD T documented as of this encounter Care Teams Crutching Contractor Relationship Specialty Start Date End Date Blank Lemos MD PCP - General Internal Medicine 04/22/[address] [place] [address] KISHAN RENO [phone] Blank Lemos MD Assigned PCP 04/25/[address] [place] [address] KISHAN RENO [phone] Kathleen Lacy CNM Assigned OBGYN Provider 06/01/20 11/23/21 Cipriano Rivera [place] [address] documented as of this encounter
--- OUTSIDE RECORDS SUMMARY | 2022-07-02 11:09 | XMS_ITS | Encounter Summary ---
:1990 Author Organization [place] Address [address] [facility] [place] [address] Care Team Providers Name Role Phone Blank Lemos MD Primary Care Provider Blank Lemos MD Unavailable Kathleen Lacy CNM Unavailable Reason for Visit Reason Comments Care 39 weeks and 4 days Encounter Details Date Type Department Care Team Description 09/24/[address] [facility] Rand Kam h-risk , third trimester (Primary Dx); Visit [facility] GINNY Granados CNM Uterine size-date discrepancy in third t rimester; [place] [address] Excessive weight gain affect ing [address] [place], [place] [address] [address] [place], [place] [phone] [address] (Work) [phone] Social History Tobacco Use Types Packs/Day Years [...] with No / Unsure 09/24/2020 2:11 PM RECORDING STUDIO SETUP WORKER someone who was confirmed or suspected to have Coronavirus / COVID-19? documented as of this encounter Last Filed Vital Signs Vital Sign Reading Time Taken Comments Blood Pressure 128/86 09/24/2020 2:13 PM RECORDING STUDIO SETUP WORKER Pulse - - Temperature - - Respiratory Rate - - Oxygen Saturation - - Inhaled Oxygen Concentration - - Weight 112.9 kg (249 lb) 09/24/2020 2:13 PM RECORDING STUDIO SETUP WORKER Height - - Body Mass Index 44.11 04/09/2020 1:36 PM CDT documented in this encounter Progress Notes Rand Kam APRN CNM - 09/24/2020 2:15 PM CST Rena Turner presents to clinic alone at 39w4d for a routine appointment. She reports she is feeling well and has no concerns. Normal movement. Denies bleeding, LOF, or regular, painful contractions. [place] like labor might be starting Thursday and [...] RTC in 1 week, sooner if problems. RDING STUDIO SETUP WORKER documented in this encounter Nursing Notes Gonzalez [...] smoking habits. Pt. has never smoked. +FM RDING STUDIO SETUP WORKER documented in this encounter Plan of [...] documented as of this encounter Care Teams Enterprise Solutions Architect Relationship Specialty Start Date End Date Blank Lemos MD PCP - General Internal Medicine 04/22/[address] [place] [address] KISHAN RENO [phone] Blank Lemos MD Assigned PCP 04/25/[address] [place] [address] KISHAN RENO [address] Kathleen Lacy CNM Assigned OBGYN Provider 06/01/20 11/23/21 [address] [place] [address] documented as of this encounter
--- OUTSIDE RECORDS SUMMARY | 2022-07-02 11:09 | XMS_ITS | Encounter Summary ---
:1988 Author Organization [place] Address [address] [place] [address]. [place] [address] Care Team Providers Name Role Phone Blank Lemos MD Primary Care Provider Blank Lemos MD Unavailable Kathleen Lacy CNM Unavailable Reason for Visit Auth/Cert Specialty Diagnoses / Procedures Referred By Contact Refer red To Contact alto singer Diagnoses Indication for care in labor or delivery Indication for care in labor or delivery Rh Procedures L AND D [address] [place], [place] [address] Phone: Fax: Referral ID Status Reason Start Date Expiration Date Visits Requ ested Visits Authorized [id number] 1 1 Encounter Details Date Type Department Care Team Description 09/28/2020 Anesthesia Event [facility] Narinder Franklin PeriOp Services MD Vinicio [address] [place] [address] ANESTHESIA [phone] [facility] [address] [place], [place] [address] (Wo rk) Anesthesia Record [...] with No / Unsure 09/28/2020 8:47 AM BARREL CUTTER someone who was confirmed or suspected to [...] Last vitals prior to Anesthesia Care Transfer: RESCUE WORKER VITALS 09/28/2020 2016 - 09/28/2020211509/28/2020 Pulse: 105 SpO2: 99 % Electronically Signed By: Narinder Franklin MD October 10, 2020 8:11 AM EL CUTTER Anesthesia Postprocedure Evaluation - Narinder Franklin MD [...] Last vitals prior to Anesthesia Care Transfer: RESCUE WORKER VITALS 09/28/20202015 - 09/28/2020211509/28/2020 Pulse: 105 SpO2: 99 % Electronically Signed By: Narinder Franklin MD October 10, 2020 8:10 AM EL CUTTER Anesthesia Preprocedure Evaluation - Narinder Franklin MD [...] found, no interventions. Pt thinks this happened [id number] ??? TONSILLECTOMY Allergies Allergen Reactions ??? Doxycycline [...] and realistic alternatives discussed. Questions answered and patient/commercial sales representative(s) expressed understanding. - Discussed with: Patient Postoperative Care Pain management: IV analgesics, Neuraxial analgesia. PONV prophylaxis: Ondansetron (or other 5HT-3), Dexamethasone or Solumedrol Comments: Narinder Franklin MD EL CUTTER documented in this encounter Miscellaneous Notes Anesthesia [...] (Last set prior to Anesthesia Care Transfer) RESCUE WORKER VITALS 09/28/20202015 - 09/28/2020205409/28/2020 Pulse: 105 SpO2: 99 % Electronically Signed By: Annalise Lux APRN CRNA September 28, 2020 8:55 PM EL CUTTER documented in this encounter Plan of Treatment Not on filedocumented as of this encounter Visit Diagnoses Not on filedocumented in this encounter Administered Medications Inactive Administered Medications - up to 3 most recent administrations Medication Order MAR Action Action Date Dose Rate Site ceFAZolin (ANCEF) intermittent Given 09/28/2020 7:53 PM BARREL CUTTER 2 g infusion 2 g in 100 mL dextrose PRE-MIX Routine, PRN, Starting on Thu09/28/20 at 195, Anesthesia Intra-op dexamethasone (DECADRON) injection Given 09/28/2020 7:52 PM BARREL CUTTER 4 mg PRN, Administer over 1 Minutes, Starting on Thu09/28/20 at 1951, Anesthesia Intra-op glycopyrrolate (ROBINUL) injection Given 09/28/2020 7:52 PM BARREL CUTTER 0.1 mg PRN, Administer over 1-2 Minutes, Starting on Thu09/28/20 at 1951, Anesthesia Intra-op ketorolac (TORADOL) injection Given 09/28/2020 8:44 PM BARREL CUTTER 30 mg PRN, Administer over 2 Minutes, Starting on Thu09/28/20 at 2044, Anesthesia Intra-op lidocaine 2%-EPINEPHrine 1:200,000 injec tion Given 09/28/2020 7:50 PM BARREL CUTTER 15 mLs EPIDURAL, PRN, Starting on Thu09/28/20 at 1950, Anesthesia Intra-op morphine (PF) (DURAMORPH) injection Given 09/28/2020 8:13 PM BARREL CUTTER 3 mg Intrathecal, PRN, Administer over 4-5 Minutes, Starting on Thu09/28/20 at 2013, Anesthesia Intra-op ondansetron (ZOFRAN) injection 4 mg Given 09/28/2020 7:52 PM BARREL CUTTER 4 mg 4 mg, Intravenous, EVERY 6 HOURS PRN, nausea, vomiting, Administer over 2-5 Minutes, Starting on Thu09/28/20 at 0746, If nausea not resolved in 15 minutes, notify provider before proceeding to prochlorperazine (COMPAZINE) [if ordered]. Irritant. For ordered IV doses 0.1-4 mg, give IV Push undiluted over 2-5 minutes. oxytocin (PITOCIN) 30 units in 500 mL 0.9% Given 09/28/2020 8:11 PM BARREL CUTTER 500 mLs NaCl infusion Intravenous, PRN, Starting on Thu09/28/20 at 2011, Anesthesia Intra-op phenylephrine (ZULMA-SYNEPHRINE) New Bag 09/28/2020 7:53 PM 50 mcg/m in 30 mL/hr injection BARREL CUTTER Intravenous, CONTINUOUS PRN, Starting on Thu09/28/20 at 1953, Anesthesia Intra-op documented in this encounter Additional Health Concerns Assessment Noted Time PHQ-9 Depression Total Score: 5 12/06/2020 7:02 AM CDT documented as of this encounter Care Teams Pig Lead Melter Helper Relationship Specialty Start Date End Date Blank Lemos MD PCP - General Internal Medicine 04/22/18 [address] [facility] KISHAN RENO [phone] Blank Lemos MD Assigned PCP 04/25/18 [address] [facility] KISHAN RENO [phone] Kathleen Lacy, YARELI Assigned OBGYN Provider 06/01/20 11/23/21 [address] [place], [place] [address] documented as of this encounter
--- OUTSIDE RECORDS SUMMARY | 2022-07-02 11:09 | XMS_ITS | Encounter Summary ---
:1988 Author Organization [place] Address [facility] [place] [address] Care Team Providers Name Role Phone Blank Lemos MD Primary Care Provider Blank Lemos MD Unavailable Kathleen Lacy CNM Unavailable Reason for Visit Reason Comments Care Encounter Details Date Type Department Care Team Description 09/10/2020 Office [facility] Kathleen Lacy, High -risk , third trimester (Primary Dx); Visit [facility] CNM Anxiety during in third trimes ter, antepartum [place] [address] [place], [place] [address] [address] [place], [place] [phone] [address] (Work) [phone] Social History Tobacco Use Types Packs/Day Years [...] with No / Unsure 09/10/2020 8:39 AM INSIGHT LEADER someone who was confirmed or suspected to have Coronavirus / COVID-19? documented as of this encounter Last Filed Vital Signs Vital Sign Reading Time Taken Comments Blood Pressure 120/84 09/10/2020 8:42 AM INSIGHT LEADER Pulse - - Temperature - - Respiratory Rate - - Oxygen Saturation - - Inhaled Oxygen Concentration - - Weight 113.9 kg (251 lb) 09/10/2020 8:42 AM INSIGHT LEADER Height - - Body Mass Index 44.46 [...] swelling in is very normal) If your lobbyist feels that you are developing preeclampsia, you will have lab tests drawn and will be monitored very closely. If you are experiencing anyof these symptoms, Call Tracy Plascencia [phone] GHT LEADER documented in this encounter Progress Notes Kathleen [...] clinic 1 weeks Kathleen Lacy APRN, CNM GHT LEADER documented in this encounter Nursing Notes Gonzalez [...] smoking habits. Pt. has never smoked. +FM GHT LEADER documented in this encounter Plan of Treatment Not on filedocumented as of this encounter Visit Diagnoses Diagnosis High-risk , third trimester - P rimary Anxiety during in third trimes ter, antepartum documented in this encounter Additional Health Concerns Assessment Noted Time PHQ-9 Depression Total Score: 5 12/06/2020 7:02 AM CDT documented as of this encounter Care Teams Joggle Press Operator Relationship Specialty Start Date End Date Blank Lemos MD PCP - General Internal Medicine 04/22/[address] [place] [address] KISHAN RENO [phone] Blank Lemos MD Assigned PCP 04/25/[address] [place] [address] KISHAN RENO [address] Kathleen Lacy CNM Assigned OBGYN Provider 06/01/20 11/23/21 [place] [address] documented as of this encounter
--- OUTSIDE RECORDS SUMMARY | 2022-07-02 11:09 | XMS_ITS | Encounter Summary ---
:1990 Author Organization [place] Address [address] [place] [address]. [place] [address] Care Team Providers Name Role Phone Blank Lemos MD Primary Care Provider Blank Lemos MD Unavailable Kathleen Lacy CNM Unavailable Reason for Visit Auth/Cert Specialty Diagnoses / Procedures Referred By Contact Refer red To Contact university partnership rep Diagnoses Indication for care in labor or delivery Indication for care in labor or delivery Rh Procedures L AND D [address] [place], [place] [address] Phone: Fax: Referral ID Status Reason Start Date Expiration Date Visits Requ ested Visits Authorized [id number] 1 1 Encounter Details Date Type Department Care Team Description 09/28/2020 Anesthesia Event [facility] Lawrence Kimble DO [facility] ANESTHESIA [address] [place], [place] [address] Birthplace Lorenzo Hernandez MD [facility] ANESTHESIA [address] [place], [place] [phone] [place] [phone] Anesthesia Record Procedure Summary Procedure Name Responsible [...] Lawrence Kimble DO Maas, Tracy M, APRN INSPECTOR ALIGNING documented in this encounter Social History Tobacco [...] with No / Unsure 09/28/2020 8:47 AM STOCK CONTROL SUPERVISOR someone who was confirmed or suspected [...] Kimble DO September 29, 2020 10:19 AM K CONTROL SUPERVISOR Anesthesia Procedure Notes - Lawrence Kimble DO - 09/28/2020 10:26 AM STOCK CONTROL SUPERVISOR Associated Order(s): Epidural Block Pre-Procedure Staff - [...] frequently monitored at necessary intervals. Sandra Kimble K CONTROL SUPERVISOR Anesthesia Preprocedure Evaluation - Lawrence Kimble DO [...] found, no interventions. Pt thinks this happened [phone] ??? TONSILLECTOMY Allergies Allergen Reactions ??? Doxycycline [...] and realistic alternatives discussed. Questions answered and patient/membership sales representative(s) expressed understanding. - Discussed with: Patient Postoperative Care Comments: BMI-44 Lawrence Kimble DO K CONTROL SUPERVISOR documented in this encounter Miscellaneous Notes Addendum Note - Sydnie Frost - 10/01/2020 8:11 AM CST Addendum created 10/01/20 0811 by Sydnie Frost Charge Capture section accepted K CONTROL SUPERVISOR Addendum Note - Lawrence Kimble DO - 09/29/2020 10:19 AM CST Addendum created 09/29/20 1019 by Lawrence Kimble DO Clinical Note Signed K CONTROL SUPERVISOR documented in this encounter Plan of Treatment Not on filedocumented as of this encounter Procedures Procedure Name Priority Date/Time Associated Diagnosis Comme nts ANE EPIDURAL BLOCK Routine 09/28/2020 10:26 AM Re sults for this STOCK CONTROL SUPERVISOR procedure are i n the results section. documented in this encounter Results FV AN EPIDURAL DUMMY PERFORMABLE (09/28/2020 10:26 AM STOCK CONTROL SUPERVISOR) Narrative Lawrence Kimble DO - 09/28/2020 10:26 AM STOCK CONTROL SUPERVISOR Lawrence Kimble DO ? 09/28/2020 10:28 AM [...] necessary intervals. R Kimble Lawrence Kimble DO [place] ANESTHESIA documented in this encounter Visit Diagnoses Not on filedocumented in this encounter Additional Health Concerns Assessment Noted Time PHQ-9 Depression Total Score: 5 12/06/2020 7:02 AM CDT documented as of this encounter Care Teams Integrated Circuit Layout Designer Relationship Specialty Start Date End Date Blank Lemos MD PCP - General Internal Medicine 04/22/18 [address] [facility] KISHAN RENO [phone] Blank Lemos MD Assigned PCP 04/25/18 [address] [facility] KISHAN RENO [address] Kathleen Lacy CNM Assigned OBGYN Provider 06/01/20 11/23/21 [address] [place] [address] documented as of this encounter
--- OUTSIDE RECORDS SUMMARY | 2022-07-02 11:09 | XMS_ITS | Encounter Summary ---
:1990 Author Organization [place] Address [facility] [place] [address] Care Team Providers Name Role Phone Blank Lemos MD Primary Care Provider Blank Lemos MD Unavailable Kathleen Lacy CNM Unavailable Reason for Visit Reason Onset Date Comments Abdominal Pain 08/09/2020 Encounter Details Date Type Department Care Team Description 08/09/2020 Telephone [facility] Ryann poon, Faiza Rodriguez, YARELI [facility] [address] [place] [address] [address] [place] [address] [phone] Social History Tobacco Use Types Packs/Day Years [...] with No / Unsure 08/06/2020 1:53 PM MANUFACTURING RECRUITER someone who was confirmed or suspected to have Coronavirus / COVID-19? documented as of this encounter Miscellaneous Notes Telephone Encounter - Faiza Reyes CNM - 08/09/2020 8:20 PM CST Patient paged CNM aegis operations specialist with reports of period like cramps earlier today. Now cramping has resolved, but patient :just feels off. Baby active. No vaginal bleeding or leaking or fluid. No other symptoms, fever, nausea or vomiting. Advised patient to try some tylenol, push fluids and rest. Call ifshe begins to feel worse. Encouraged patient to call with any questions or concerns. Faiza Reyes APRN, CNM FACTURING RECRUITER documented in this encounter Plan of Treatment Not on filedocumented as of this encounter Visit Diagnoses Not on filedocumented in this encounter Additional Health Concerns Assessment Noted Time PHQ-9 Depression Total Score: 10 02/02/2020 8:23 AM CD T documented as of this encounter Care Teams Business Process Consultant Relationship Specialty Start Date End Date Blank Lemos MD PCP - General Internal Medicine 04/22/18 [address] [facility] KISHAN RENO [address] Blank Lemos MD Assigned PCP 04/25/18 [address] [facility] KISHAN RENO [address] Lacy, Kathleen A, CNM Assigned OBGYN Provider 06/01/20 11/23/21 [address] [place], [place] [address] documented as of this encounter
--- OUTSIDE RECORDS SUMMARY | 2022-07-02 11:09 | XMS_ITS | Encounter Summary ---
:1990 Author Organization [place] Address [address] [facility] [place] [address] Care Team Providers Name Role Phone Blank Lemos MD Primary Care Provider Blank Lemos MD Unavailable Kathleen Lacy CNM Unavailable Reason for Visit Reason Comments Care Encounter Details Date Type Department Care Team Description 08/06/2020 Office [facility] Rand Kam h-risk , third trimester (Primary Dx); Visit [facility] EGINNY CNM Pelvic pain affecting in third trimester, antepartum; [place] [address] At risk for venous thromboem bolism (VTE); [address] Elevated blood pressure affecting pregna ncy in third trimester, antepartum [place], [place] [address] [address] [place], [place] [phone] [address] (Work) [phone] Social History Tobacco Use Types Packs/Day Years [...] with No / Unsure 08/06/2020 1:53 PM PRECISION MACHINIST someone who was confirmed or suspected to have Coronavirus / COVID-19? documented as of this encounter Last Filed Vital Signs Vital Sign Reading Time Taken Comments Blood Pressure 122/74 08/06/2020 2:02 PM PRECISION MACHINIST Pulse - - Temperature - - Respiratory Rate - - Oxygen Saturation - - Inhaled Oxygen Concentration - - Weight 110.2 kg (243 lb) 08/06/2020 2:02 PM PRECISION MACHINIST Height - - Body Mass Index 43.05 [...] Review need for PP VTE prophylaxis at [place]. Warning signs reviewed. RTC in 2 weeks, sooner if problems. ISION MACHINIST documented in this encounter Nursing Notes Gonzalez [...] smoked. Reports pelvic pain over the weekend. ISION MACHINIST documented in this encounter Plan of Treatment [...] documented as of this encounter Care Teams Treasury Analyst Relationship Specialty Start Date End Date Blank Lemos MD PCP - General Internal Medicine 04/22/[address] [place] [address] KISHAN RENO [address] Blank Lemos MD Assigned PCP 04/25/[address] [place] [address] KISHAN RENO [address] Kathleen Lacy CNM Assigned OBGYN Provider 06/01/20 11/23/21 [address] [place] [address] documented as of this encounter
--- OUTSIDE RECORDS SUMMARY | 2022-07-02 11:09 | XMS_ITS | Encounter Summary ---
:1990 Author Organization [place] Address [address] [place] [address] Care Team Providers Name Role Phone Blank [...] with No / Unsure 09/03/2020 1:45 PM GALVANIZER someone who was confirmed or suspected to have Coronavirus / COVID-19? documented as of this encounter Plan of Treatment Not on filedocumented as of this encounter Visit Diagnoses Not on filedocumented in this encounter Additional Health Concerns Assessment Noted Time PHQ-9 Depression Total Score: 5 12/06/2020 7:02 AM CDT documented as of this encounter Care Teams Fishing Tool Supervisor Relationship Specialty Start Date End Date Blank Lemos MD PCP - General Internal Medicine 04/22/[address] [place] [address] KISHAN RENO [phone] Blank Lemos MD Assigned PCP 04/25/[address] [place] [address] KISHAN RENO [phone] Kathleen Lacy CNM Assigned OBGYN Provider 06/01/20 11/23/21 [address] [place] [address] documented as of this encounter
--- OUTSIDE RECORDS SUMMARY | 2022-07-02 11:09 | XMS_ITS | Encounter Summary ---
:1990 Author Organization [place] Address [address] [place] [address] Care Team Providers Name Role Phone Blank [...] with No / Unsure 09/17/2020 1:55 PM MANAGER FIXED INCOME someone who was confirmed or suspected to have Coronavirus / COVID-19? documented as of this encounter Plan of Treatment Not on filedocumented as of this encounter Visit Diagnoses Not on filedocumented in this encounter Additional Health Concerns Assessment Noted Time PHQ-9 Depression Total Score: 5 12/06/2020 7:02 AM CDT documented as of this encounter Care Teams Land Appraiser Relationship Specialty Start Date End Date Blank Lemos MD PCP - General Internal Medicine 04/22/[address] [place] [address] KISHAN RENO [phone] Blank Lemos MD Assigned PCP 04/25/[address] [place] [address] KISHAN RENO [phone] Kathleen Lacy CNM Assigned OBGYN Provider 06/01/20 11/23/21 Cipriano E Tracey [place] [id number] documented as of this encounter
--- OUTSIDE RECORDS SUMMARY | 2022-07-02 11:09 | XMS_ITS | Encounter Summary ---
:1990 Author Organization [place] Address [facility] [place] [address] Care Team Providers Name Role Phone Blank Lemos MD Primary Care Provider Blank Lemos MD Unavailable Kathleen Lacy CN Unavailable Reason for Visit Reason Comments Care 36w 4d, discuss delivery prince n management options and restrictions Encounter Details Date Type Department Care Team Description 09/03/2020 Office [facility] EugenejodieStevan nnah, CNM [address] [place], [place] [address] Encounter for Visit [facility] Faiza Reyes, CNM [address] [place], [place] [id number] supervision of [place] normal first [address] in th ird [place] trimester (Primary [address] Dx) [place] [phone] Social History Tobacco Use Types Packs/Day Years [...] with No / Unsure 09/03/2020 1:45 PM DIRECTOR OUTCOMES someone who was confirmed or suspected to have Coronavirus / COVID-19? documented as of this encounter Last Filed Vital Signs Vital Sign Reading Time Taken Comments Blood Pressure 116/76 09/03/2020 1:48 PM DIRECTOR OUTCOMES Pulse - - Temperature - - Respiratory Rate - - Oxygen Saturation - - Inhaled Oxygen Concentration - - Weight 113.4 kg (250 lb) 09/03/2020 1:48 PM DIRECTOR OUTCOMES Height - - Body Mass Index 44.29 [...] symptoms if you are positive. ?? Your paperhanger supervisor will discuss your results with you and make recommendations for treatment. Labor Instructions for Mexican Food Maker Hand Patients When to call: Both during and after office hours call [phone]. There is a Nurse Mexican Food Maker Hand available to take your calls and answer [...] your cervix, and will call us. The paperhanger supervisor web content executive will come in and be with you when you are in active labor ?? After hours you need to enter the hospital through the emergency room CTOR OUTCOMES documented in this encounter Progress Notes Faiza [...] clinic 1 weeks Faiza Reyes APRN, CNM CTOR OUTCOMES documented in this encounter Nursing Notes Luz [...] Due: NONE Luz Maria Abreu CMA CTOR OUTCOMES documented in this encounter Plan of Treatment Not on filedocumented as of this encounter Procedures Procedure Name Priority Date/Time Associated Diagnosis Comme nts GROUP B STREP PCR Routine 09/03/2020 2:00 PM Encounter for Res ults for this DIRECTOR OUTCOMES supervision of normal proced ure are in first in the resul ts third trimester section. documented in this encounter Results Strep, Group B by PCR (09/03/2020 2:00 PM DIRECTOR OUTCOMES) [facility] Method Time Signature Group B Strep Vaginal 09/03/2020 [facility] PCR Spec Carlos Rectal 1:46 PM DIRECTOR OUTCOMES [facility] Group B Strep Negative NEG^Negat 09/04/2020 [facility] yakelin 2:26 PM DIRECTOR OUTCOMES [facility] Comment: No GBS DNA detected, presumed negative f or GBS or number of bacteria may be below the limit of detection of the assa y. Assay performed on incubated broth cultu re of specimen using Ateoid real-time PCR. Specimen Anatomical Collection Method Collection Time Receive d Time (Source) Location / / Volume Laterality Vaginal Rectal 09/03/2020 2:00 PM 021 3:25 DIRECTOR OUTCOMES PM DIRECTOR OUTCOMES Faiza Reyes CNM LAB - MICRO GENERAL ORDERABL ES Performing Organization Address City/State/ZIP Code Phon e Number [address] [address] [facility] [address] [place], [place] [address] [address] documented in this encounter Visit Diagnoses Diagnosis Encounter for supervision of normal firs t in third trimester - Primary Supervision of normal first documented in this encounter Additional Health Concerns Assessment Noted Time PHQ-9 Depression Total Score: 5 12/06/2020 7:02 AM CDT documented as of this encounter Care Teams Committee Member Relationship Specialty Start Date End Date Blank Lemos MD PCP - General Internal Medicine 04/22/[address] [place] [address] KISHAN RENO [phone] Blank Lemos MD Assigned PCP 04/25/[address] [place] [address] KISHAN RENO [id number] Kathleen Lacy CNM Assigned OBGYN Provider 06/01/20 11/23/[place] [address] documented as of this encounter
--- OUTSIDE RECORDS SUMMARY | 2022-07-02 11:09 | XMS_ITS | Encounter Summary ---
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 documented as of this encounter Plan of Treatment Not on filedocumented as of this encounter Visit Diagnoses Not on filedocumented in this encounter Additional Health Concerns Assessment Noted Time PHQ-9 Depression Total Score: 5 12/06/2020 7:02 AM CDT documented as of this encounter Care Teams Manager Internship Relationship Specialty Start Date End Date Blank Lemos MD PCP - General Internal Medicine 04/22/[address] [place] [address] KISHAN RENO [phone] Blank Lemos MD Assigned PCP 04/25/[address] [place] [address] KISHAN RENO [phone] Kathleen Lacy CNM Assigned OBGYN Provider 06/01/20 11/23/21 Cipriano E Tracey [place] [id number] documented as of this encounter
--- OUTSIDE RECORDS SUMMARY | 2022-07-02 11:09 | XMS_ITS | Encounter Summary ---
:1990 Author Organization [place] Address [address] [place] [address] Care Team Providers Name Role Phone Blank Lemos MD Primary Care Provider Blank Lemos MD Unavailable Kathleen Lacy CNM Unavailable Encounter Details Date Type Department Care Team Description 09/28/[address] 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 documented as of this encounter Miscellaneous Notes Telephone Encounter - Kathleen Lacy CNM - 09/28/2020 7:16 AM CST Pt paged care professionals YARELI stating her contractions are still every 2-3 mins apart despite rest/hydration.She is going to LD for assessment. LD notified. Kathleen Lacy APRN, CNM PPING SHOVEL OILER Telephone Encounter - Kathleen Lacy CNM - 09/28/2020 6:06 AM CST Pt paged care professionals YARELI with reports of ctx about every [...] home for now. Kathleen Lacy APRN, CNM PPING SHOVEL OILER Telephone Encounter - Kathleen Lacy CNM - 09/28/2020 5:22 AM CST Rena paged care professionals CNM stating that she just lost a large amount of vaginal discharge that was mucus-like in consistency. Denies ctx, bleeding, or lof. Reports good movement. States this happened 20mins ago. Discussed likely she lost her mucus plug. Counseled to put on a new pad and monitor.She will call if she continues to leak. Discussed s/s SROM. Kathleen Lacy APRN, CNM PPING SHOVEL OILER documented in this encounter Plan of Treatment Not on filedocumented as of this encounter Visit Diagnoses Not on filedocumented in this encounter Additional Health Concerns Assessment Noted Time PHQ-9 Depression Total Score: 5 12/06/2020 7:02 AM CDT documented as of this encounter Care Teams Financial Operations Clerk Relationship Specialty Start Date End Date Blank Lemos MD PCP - General Internal Medicine 04/22/[address] [place] [address] KISHAN RENO [phone] Blank Lemos MD Assigned PCP 04/25/[address] [place] [address] KISHAN RENO [id number] Kathleen Lacy CNM Assigned OBGYN Provider 06/01/20 11/23/21 KISHAN [place] [id number] documented as of this encounter
--- OUTSIDE RECORDS SUMMARY | 2022-07-02 11:09 | XMS_ITS | Encounter Summary ---
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 Diagnoses Indication for care in labor or delivery Indication for care in labor or delivery Rh Procedures L AND D [address] [place], [place] [address] Phone: Fax: Referral ID Status Reason Start Date Expiration Date Visits Requ ested Visits Authorized [id number] 1 1 Encounter Details Date Type Department Care Team Description 09/28/2020 Surgery [facility] Wendy Gregg, SECTION PeriOp Services DO [address] [address] [place] [address] [place], [place] [id number] (Wo rk) Surgery Details Date/Time Status Location [...] with No / Unsure 09/28/2020 8:47 AM HEAVY DUTY CUSTODIAN someone who was confirmed or suspected to have Coronavirus / COVID-19? documented as of this encounter Last Filed Vital Signs Vital Sign Reading Time Taken Comments Blood Pressure 110/66 09/28/2020 9:45 PM HEAVY DUTY CUSTODIAN Pulse 85 09/28/2020 9:45 PM HEAVY DUTY CUSTODIAN Temperature 36.9 ??C (98.4 ??F) 09/28/2020 9:00 PM HEAVY DUTY CUSTODIAN Respiratory Rate 16 09/28/2020 9:45 PM HEAVY DUTY CUSTODIAN Oxygen Saturation 96% 09/28/2020 6:09 PM HEAVY DUTY CUSTODIAN Inhaled Oxygen Concentration - - Weight 112.9 kg (249 lb) 09/28/2020 8:52 AM HEAVY DUTY CUSTODIAN Height 160 cm (5' 3) 09/28/2020 8:52 AM HEAVY DUTY CUSTODIAN Body Mass Index 44.11 09/28/2020 8:52 AM HEAVY DUTY CUSTODIAN documented in this encounter Discharge Summaries Danial Falcon MD - 09/30/2020 9:24 AM CST [facility] Obstetrics Post-Op / Discharge Summary Note Assessment and Plan: Assessment: Post-operative day #2 Low transverse primary section L&D complications: A 30 year oldhgi-ahfn-lax at 40w1d weeks estimated gestational age admitted [...] phosphate (FLEET ENEMA) 1 enema ??? Tdap (ubolpjn-ipgikzrwjf-porau pertussis) (ADACEL) injection 0.5 mL ??? tranexamic [...] studies have been ordered Danial Falcon MD Y DUTY CUSTODIAN documented in this encounter Discharge Instructions Discharge InstructionsLakeshia Mullen RN - 09/30/2020 1:40 PM CST Postop Instructions Make an appointment to be seen in the clinic in 6 weeks. [facility]: [phone] Activity ?? Do not lift more than [...] questions or concerns after you return home. Y DUTY CUSTODIAN documented in this encounter Medications at Time [...] Falcon MD - 09/30/2020 9:21 AM CST [facility] Obstetrics Post-Op / Progress Note Assessment and Plan: Assessment: Post-operative day #2 Low transverse primary section L&D complications: A 30 year oldjuy-eerj-edn at 40w1d weeks estimated gestational age admitted [...] phosphate (FLEET ENEMA) 1 enema ??? Tdap (kbebvlj-zoqctroqzc-mplyr pertussis) (ADACEL) injection 0.5 mL ??? tranexamic [...] studies have been ordered Danial Falcon MD Y DUTY CUSTODIAN Dina Germain MD - 09/29/2020 11:45 AM [...] discharge in 1-2 days Dina Germain MD Y DUTY CUSTODIAN Soledad Jones CNM - 09/28/2020 6:48 PM [...] prn Britney Jones CNM 09/28/2020 4:36 PM Y DUTY CUSTODIAN Soledad Jones CNM - 09/28/2020 12:51 PM [...] PRN Britney Jones CNM 09/28/2020 2:12 PM Y DUTY CUSTODIAN Soledad Jones CNM - 09/28/2020 10:48 AM [...] to Reassess short interval Soledad Jones CNM Y DUTY CUSTODIAN documented in this encounter H&P Notes Wendy Gregg DO - 09/28/2020 7:18 PM CST [facility] Labor and Delivery Consultation note Rena [...] orders Prepare for section. Wendy Gregg DO Y DUTY CUSTODIAN Soledad Jones CNM - 09/28/2020 9:09 AM CST [facility] Labor Admission History & Physical Rena Resendiz is a 30 year old with an IUP at 40w1d ; , Partner/support Person: Micah Language Barrier: Citizen Of [place] Clinic: [facility] Provider: Robert Rena Resendiz is admitted [...] found, no interventions. Pt thinks this happened [phone] ??? TONSILLECTOMY Family History Problem Relation Age [...] orders Britney Jones CNM 09/28/2020 9:23 AM Y DUTY CUSTODIAN documented in this encounter Miscellaneous Notes Plan of Care - Lakeshia Mullen RN - 09/30/2020 2:41 PM CST Discharge instructions reviewed with patient and . Understanding verbalized. Will discharge to home with and baby. Y DUTY CUSTODIAN Plan of Care - Lakeshia Mullen RN [...] Support persons present. Plan: Anticipate discharge today. Y DUTY CUSTODIAN Plan of Care - Karol Hayden RN - 09/30/2020 2:52 AM CST Pt meeting expected goals for shift. Positive attachment behaviors noted with . Pain managed with scheduled meds - See MAR. Support person Micah at bedside and attentive to pt needs. pt encouraged to complete discharge paperwork/videos. Will continue to monitor and adjust plan as needed. Y DUTY CUSTODIAN Note - Elisabeth Shi RN - 09/29/2020 [...] questions answered. Encouraged to call for assistance. Y DUTY CUSTODIAN Plan of Care - Kathleen Wright RN - 09/29/2020 7:59 PM CST Pt up ambulating independently. Voiding without difficulty. Incision covered . Reports adequate paincontrol with current pain plan. Family present and supportive. Meeting expected goals. Mother attentive to infants needs. , using nipple shield. Y DUTY CUSTODIAN Plan of Care - Maria Del Rosario [...] supportive today. Maria Del Rosario Steven RN Y DUTY CUSTODIAN Plan of Care - Kathleen Hurley RN [...] gluten free diet. FOB here and supportive. Y DUTY CUSTODIAN L&D Delivery Note - Wendy Gregg DO [...] Procedure Details: See operative note Paris Resendiz-Rena [[id number]] Labor Event Times Labor onset date: 09/28/20 [...] Normal 1:1 continuous labor support provided by?: anchor tack puller/Placenta Date and Time Delivery Date: 09/28/20 Delivery Time: 8:09 PM Placenta Date/Time: 09/28/2020 8:10 PM Vaginal Counts Rialto Suture [place] Sponges Instruments Initial counts Added to count [...] Nuchal Gases Sent?: Yes Resuscitation Methods: None [place] Measurements Weight: 7 lb 15 oz Length: [...] present?: Neg Delivery (Maternal) (Provider to Complete) ([id number]) Episiotomy: None Perineal lacerations: None Blood Loss Mother: Rena Resendiz #[id number] Start of Mother's Information IO Blood Loss 09/28/20 0530 - 09/29/20 0634 None End of Mother's Information Mother: Rena Resendiz #[id number] Delivery - Provider to Complete ([id number]) Delivering clinician: Wendy Gregg DO CNM Care: [...] Position: Left Occiput Anterior Wendy Gregg DO Y DUTY CUSTODIAN Plan of Care - Maricruz Rogers RN - 09/28/2020 11:48 PM CST Data: Renablaine Resendiz transferred to [facility] via relay associate at 1135. Baby transferred via parent's arms. Action: Receiving unit notified of transfer: Yes. Patient and family notified of room change. Reportgiven to Kathleen TOLLIVER at 2330. Belongings sent to receiving unit. Accompanied by Registered Nurse. Oriented patient to surroundings. Call light within reach. ID bands double-checked with receiving RN. Response: Patient tolerated transfer and is stable. Y DUTY CUSTODIAN Op Note - Wendy Gregg DO - 09/28/2020 8:53 PM CST PREOPERATIVE DIAGNOSIS: A 30 year oldbnx-zrfo-yeo at 40w1d weeks estimated gestational age admitted for labor with arrest of dilation, obesity. POSTOPERATIVE DIAGNOSES: A 30 year oldwni-rlzf-nlo at 40w1d weeks estimated gestational age admitted for labor with arrest of dilation, obesity. PROCEDURE: 1. Primary low transverse section. 2. Seprafilm placement for adhesiolysis. COMPLICATIONS: None apparent at time of procedure. ESTIMATED BLOOD LOSS: 400 mL. SURGEON: Wendy Gregg DO. INDICATIONS: A 30 year oldstu-olru-cfa at 40w1d weeks estimated gestational age admitted [...] counts were correct x2. WENDY GREGG DO Y DUTY CUSTODIAN Plan of Care - Maria Del Rosario Steven RN - 09/28/2020 9:19 AM CST 0735: , 40w1d, here for rule out labor. Pt states she has been nelson every 2-2.5 min [id number] this morning. EUM and EFM placed. Admission [...] to progress. Maria Del Rosario Steven RN Y DUTY CUSTODIAN documented in this encounter Plan of Treatment Scheduled Orders Name Type Priority Associated Diagnoses Order S chedule See Providers Orders Lab Routine Release Upon Ordering for 1 Occurrences sta rting 09/28/2020 documented as of this encounter Procedures Procedure Name Priority Date/Time Associated Comments Diagnosis HEMOGLOBIN Routine 09/29/2020 7:02 AM Indication for care Re sults for this HEAVY DUTY CUSTODIAN in labor or procedure are i n delivery the results section. PLACENTA PATH ORDER Routine 09/28/2020 8:13 PM Re sults for this AND INDICATIONS HEAVY DUTY CUSTODIAN procedure ar e in the results section. SECTION 09/28/2020 7:48 PM Failure to progres s HEAVY DUTY CUSTODIAN in labor TREPONEMA ABS W STAT 09/28/2020 9:23 AM Result s for this REFLEX TO RPR AND HEAVY DUTY CUSTODIAN procedure are in TITER the results section. ABO/RH TYPE AND STAT 09/28/2020 9:23 AM Result s for this SCREEN HEAVY DUTY CUSTODIAN procedure are i n the results section. SARS-COV-2 (COVID-19) STAT 09/28/2020 8:40 AM Results for this VIRUS RT-PCR HEAVY DUTY CUSTODIAN procedure are i n the results section. documented in this encounter Results (ABNORMAL) Hemoglobin (09/29/2020 7:02 AM HEAVY DUTY CUSTODIAN) athologist Signature Hemoglobin 10.7 (L) 11.7 - 15.7 09/29/2020 [place] g/dL 7:42 AM [facility] Specimen Anatomical Collection Method Collection Time Receive d Time (Source) Location / / Volume Laterality Blood specimen 09/29/2020 7:02 AM 021 7:03 (specimen) HEAVY DUTY CUSTODIAN AM HEAVY DUTY CUSTODIAN Wendy Gregg DO LAB - BLOOD ORDERABLES Performing Organization Address City/State/ZIP Code Phon e Number [place] [address] [address] [place] [address] [address] [phone] Placenta Path Order and Indications (PLACENTA) (09/28/2020 8:13 PM HEAVY DUTY CUSTODIAN) Component Value Ref Test Analysis Performed At [facility] gist Range Method Time Signature Copath Patient Name: RENA RESENDIZ Report MR#: [id number] Specimen #: [id number] Collected: 09/28/2020 Received: 10/01/2020 Reported: 10/02/2020 12:04 [...] of this testing was completed at the [facility], with the professional compo nent performed at the [facility], [address] [place] [address] ??[phone] ([phone]) CPT Codes: A: 37528-WP6 COLLECTION SITE: Client: [facility] Location: RHOR (R) Specimen Anatomical Collection Method Collection Time Receive d Time (Source) Location / / Volume Laterality Specimen from 09/28/2020 8:13 PM 10/01/19 21 8:32 placenta HEAVY DUTY CUSTODIAN AM HEAVY DUTY CUSTODIAN (specimen) Soledad XIAO Performing Organization Address City/State/ZIP Code Phon e Number [place] Treponema Abs w Reflex to RPR and Titer (09/28/2020 9:23 AM HEAVY DUTY CUSTODIAN) [facility] gist Method Time Signature Treponema Nonreactive NR^Nonrea 09/28/2020 [facility] ctive 5:03 PM HEAVY DUTY CUSTODIAN [facility] Comment: Methodology Change: Test performed on D[employer] Liaison XL by Treponema pallidum Total Antibodies Assay as of . Specimen Anatomical Collection Method Collection Time Receive d Time (Source) Location / / Volume Laterality Blood specimen 09/28/2020 9:23 AM 021 9:24 (specimen) HEAVY DUTY CUSTODIAN AM HEAVY DUTY CUSTODIAN Soledad Jones CNM LAB - BLOOD ORDERABLES Performing Organization Address City/State/ZIP Code Phon e Number [address] [address] [facility] ABO/Rh type and screen (09/28/2020 9:23 AM HEAVY DUTY CUSTODIAN) [facility] Method Time Signature ABO O 09/28/2020 [place] 10:18 AM [facility] RH(D) Pos [facility] Antibody Neg 09/28/2020 [place] Screen 10:18 AM [facility] Test Valid [place] 09/28/2020 [place] Only At [facility] 9:43 AM [facility] Specimen 10/01/2020 09/28/2020 [place] Expires 9:43 AM [facility] Specimen Anatomical Collection Method Collection Time Receive d Time (Source) Location / / Volume Laterality Blood specimen 09/28/2020 9:23 AM 021 9:24 (specimen) HEAVY DUTY CUSTODIAN AM HEAVY DUTY CUSTODIAN Soledad Jones CNM LAB - BLOOD BANK TEST ORDER Performing Organization Address City/State/ZIP Code Phon e Number M [facility] [address] [address] [facility] [address] [phone] Asymptomatic SARS-CoV-2 COVID-19 Virus (Coronavirus) by PCR (09/28/2020 8:40 AM HEAVY DUTY CUSTODIAN) [facility] Method Time Signature SARS-CoV-2 Nasopharyngeal 09/28/2020 [place] Virus 8:51 AM [facility] Source SARS-CoV-2 NEGATIVE 09/28/2020 [place] PCR Result 9:13 AM [facility] Comment: SARS-CoV2 (COVID-19) RNA not de tected, presumed negative. SARS-CoV-2 PCR Comment (Note) 09/28/2020 9:13 A [facility] Comment: Testing was performed using the [...] or clinical pr esentation suggests COVID-19. M [facility] [employer] are certi fied under the Clinical Laboratory Improvement Amendments of 1988 (CLIA-88) as qualified to perform moderate and/or high complexity laboratory testin g. Specimen (Source) Anatomical Collection Method Collection Time Re ceived Time Location / / Volume Laterality Specimen from 09/28/2020 8:40 09/28/2020 nasopharyngeal AM HEAVY DUTY CUSTODIAN 8:51 AM HEAVY DUTY CUSTODIAN structure (specimen) Soledad Jones CNM LAB - MICRO GENERAL ORDERABL ES Performing Organization Address City/State/ZIP Code Phon e Number [place] [address] [address] [address] [facility] [address] [phone] documented in this encounter Visit Diagnoses Diagnosis [...] acetaminophen (TYLENOL) tablet Given 09/30/2020 12:04 PM HEAVY DUTY CUSTODIAN 975 mg 975 mg 975 mg, Oral, EVERY 6 HOURS, First dose on Thu09/28/20 at 2330, Maximum acetaminophen dose from all sources = 75 mg/kg/day not to exceed 4 grams/day., Post-procedure Given 09/30/2020 5:42 AM HEAVY DUTY CUSTODIAN 975 mg Given 09/30/2020 12:09 AM HEAVY DUTY CUSTODIAN 975 mg dextrose 5% in lactated ringers infusion New Bag 09/29/2020 2:00 AM HEAVY DUTY CUSTODIAN 125 mL/hr at 125 mL/hr, Intravenous, CONTINUOUS, Subsequent IV at nurse's discretion. DC IV when tolerating fluids or at nurse's discretion & saline lock., Post-procedure, Starting on Thu09/28/20 at 2330, Until 09/30/20 at 1703 escitalopram (LEXAPRO) tablet 20 mg Given 09/29/2020 10:37 PM HEAVY DUTY CUSTODIAN 20 mg 20 mg, Oral, DAILY, First dose on 09/29/20 at 0900 ibuprofen (ADVIL/MOTRIN) tablet 800 mg Given 09/30/2020 10:24 AM HEAVY DUTY CUSTODIAN 800 mg 800 mg, Oral, EVERY 6 HOURS, First dose on 09/29/20 at 2100, Give with food., Post-procedure Given 09/30/2020 4:33 AM HEAVY DUTY CUSTODIAN 800 mg Given 09/29/2020 10:36 PM HEAVY DUTY CUSTODIAN 800 mg naloxone (NARCAN) injection 0.2 mg [...] injection 4 mg Given 09/29/2020 12:56 AM HEAVY DUTY CUSTODIAN 4 mg 4 mg, Intravenous, EVERY 6 HOURS PRN, nausea, vomiting, Administer over 2-5 Minutes, Starting on Thu09/28/20 at 2316, If nausea not resolved in 15 minutes, notify provider before proceeding to prochlorperazine (COMPAZINE) [if ordered]. Irritant. For ordered IV doses 0.1-4 mg, give IV Push undiluted over 2-5 minutes., Post-procedure oxyCODONE (ROXICODONE) tablet 5 mg Given 09/29/2020 10:36 PM HEAVY DUTY CUSTODIAN 5 mg 5 mg, Oral, EVERY 4 HOURS PRN, other, pain control or improvement in physical function. Hold dose for analgesic side effects., Starting on Thu09/28/20 at 2316, Notify provider to assess for uncontrolled pain or analgesic side effects. Hold while on NICK SETTER or with regular IV opioid dosing. Maximum total is 60 mg in 24 hours., Post-procedure Given 09/29/2020 1:04 PM HEAVY DUTY CUSTODIAN 5 mg senna-docusate (SENOKOT-S/PERICOLACE) Given 09/30/2020 9:[address] 1 tablet 8.6-50 MG per tablet 1 tablet 1 tablet, Oral, 2 TIMES DAILY, First dose on Thu09/28/20 at 2330, If no bowel movement in 24 hours, increase to 2 tablets PO. Hold for loose stools. Preferred agent for constipation related to opioids. Hold for loose stools., Post-procedure Given 09/29/2020 10:36 PM HEAVY DUTY CUSTODIAN 1 tablet Given 09/29/2020 9:50 AM HEAVY DUTY CUSTODIAN 1 tablet senna-docusate (SENOKOT-S/PERICOLACE) 8. 6-50 MG per tablet 2 tablet 2 tablet, Oral, 2 TIMES DAILY, First dos e on Thu09/28/20 at 2330, Hold for loose stools. Preferred agent for constipation related to op ioids. Hold for loose stools., Post-procedure simethicone (MYLICON) chewable tablet 80 mg Given 09/30/2020 3:27 AM HEAVY DUTY CUSTODIAN 80 mg 80 mg, Oral, 4 TIMES DAILY PRN, other, gas, Starting on Thu09/28/20 at 2316, Chew., Post-procedure sodium chloride (PF) 0.9% PF flush 3 mL Given 09/29/2020 4:01 PM HEAVY DUTY CUSTODIAN 3 mLs 3 mL, Intracatheter, EVERY 8 HOURS PRN, other, to lock peripheral IV dormant line, Starting on Thu09/28/20 at 2316, Post-procedure documented in this encounter Active and Recently Administered Medications Times are shown in HEAVY DUTY CUSTODIAN. Scheduled Medication Order 09/28/2020 09/29/2020 09/30/2020 acetaminophen [...] Maricruz Rogers, RN) STAT, 500 mg, Intravenous, PRE-OP/PRE-IN OCEDURE, Starting Thu09/28/20 at 1851, For 1 [...] minutes PRIOR TO SURGICAL PROCEDURE., Pre-procedure Tdap (otvmrbg-iykeojgaes-cyxoj pertussis) (ADACEL) injection 0.5 mL 1000 (Canceled [...] Provider) 50-100 mcg, Intravenous, EVERY 1 HOUR IN N, other, desired pain relief based on [...] For ordered IV doses 0.1-2mg give I LOAN BROKER. Give each 0.4mg over 15 seconds in [...] to a procedural area)1951 (Given - Provider: Narindre Franklin MD)2051 (Unhold - Provider: Orders Generic [...] or analgesic side effects. Hold while on NICK SETTER or with regular IV opioid dosing. Maximum [...] documented as of this encounter Care Teams Mink Farmer Relationship Specialty Start Date End Date Blank Lemos MD PCP - General Internal Medicine 04/22/[address] [place] [address] KISHAN RENO [phone] Blank Lemos MD Assigned PCP 04/25/[address] [place] [address] K[place]AN RENO [phone] Kathleen Lacy CNM Assigned OBGYN Provider 06/01/20 11/23/21 [place] [address] documented as of this encounter
--- OUTSIDE RECORDS SUMMARY | 2022-07-02 11:09 | XMS_ITS | Encounter Summary ---
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 documented as of this encounter Plan of Treatment Not on filedocumented as of this encounter Visit Diagnoses Not on filedocumented in this encounter Additional Health Concerns Assessment Noted Time PHQ-9 Depression Total Score: 5 12/06/2020 7:02 AM CDT documented as of this encounter Care Teams Health Policy Nurse Relationship Specialty Start Date End Date Blank Lemos MD PCP - General Internal Medicine 04/22/[address] [place] [address] KISHAN RENO [phone] Blank Lemos MD Assigned PCP 04/25/[address] [place] [address] KISHAN RENO [phone] Kathleen Lacy CNM Assigned OBGYN Provider 06/01/20 11/23/21 [address] [place] [phone] documented as of this encounter
--- OUTSIDE RECORDS SUMMARY | 2022-07-02 11:10 | XMS_ITS | Encounter Summary ---
:1990 Author Organization [place] Address [facility] [place] [address] Care Team Providers Name Role Phone Blank Lemos MD Primary Care Provider Blank Lemos MD Unavailable Reason for Referral Diagnostic Imaging Other (Routine) - Closed Specialty Diagnoses / Procedures Referred By Contact Refer red To Contact Diagnoses Encounter for supervision of normal first in second trimester Soledad Jones CNM [facility] [address] [place] [address] [place] [address] Phone: Referral ID Status Reason Start Date Expiration Date Visits Requ ested Visits Authorized [id number] Closed 05/01/2020 05/01/2021 1 1 Encounter Details Date Type Department Care Team Description 05/01/2020 Orders [facility] Soledad Jones [facility] supervision of normal [place] [address] first in [address] [place], [place] second tr[address] [place] [address] (Primary Dx) [address] [place] [address] Social History Tobacco Use Types [...] documented as of this encounter Care Teams Litigation Support Analyst Relationship Specialty Start Date End Date Blank Lemos MD PCP - General Internal Medicine 04/22/[address] [facility] [place] [address] Blank Lemos MD Assigned PCP 04/25/[address] [facility] [place] [address] documented as of this encounter
--- OUTSIDE RECORDS SUMMARY | 2022-07-02 11:10 | XMS_ITS | Encounter Summary ---
:1990 Author Organization [place] Address [address] [place] [address] Care Team Providers Name Role Phone Blank [...] as of this encounter Care Teams Supervisor [employer] Relationship Specialty Start Date End Date Blank Lemos MD PCP - General Internal Medicine 04/22/[address] [place] [address] KISHAN RENO [phone] Blank Lemos MD Assigned PCP 04/25/[address] [place] [address] KISHAN RENO [phone] documented as of this encounter
--- OUTSIDE RECORDS SUMMARY | 2022-07-02 11:10 | XMS_ITS | Encounter Summary ---
:1990 Author Organization [place] Address [facility] [place] [address] Care Team Providers Name Role Phone Blank Lemos MD Primary Care Provider Blank Lemos MD Unavailable Reason for Referral Diagnostic Imaging Ultrasound (Routine) - Closed Specialty Diagnoses / Procedures Referred By Contact Refer red To Contact Diagnoses related condition, antepartum Soledad Tracey CNM Procedures [facility] [address] [place] [address] Referral ID Status Reason Start Date Expiration Date Visits Requ ested Visits Authorized [id number] Closed 05/01/2020 05/01/2021 1 1 Encounter Details Date Type Department Care Team Description 05/01/2020 Transcribe Orders [facility] Robert, Pregn graciela related Maternal YARELI Rowe condition, [facility] [address] antepartum (Primary [facility] Dx) [address] [place], [place] [address] [address] [place], [place] [phone] (Work) [phone] Social History Tobacco Use Types Packs/Day Years [...] on filedocumented as of this encounter Results [facility] US Comprehensive Single (05/11/2020 10:21 AM [...] Study Date : 05/11/2020 9:20am Pat. NO: [id number] Referring ??MD: JULIO TRACEY Site: [facility] Oven Equipment Repairer: Moraima Keita RD MS : 1990 Age: [...] lb 13 ? oz EFW by ?Hadlock ([id number]) Head / Face / Neck Biometry: Surgical Endoscopist ? 7.5 ? mm CM ?3.7 ? [...] cava. Inferior vena cava. 3-vessel ? view. 3-zuifqk-yzamokt view. Cardiac position. Cardiac size. Cardiac rhythm. [...] Pat. Name:Noemi RESENDIZ Date: 9:20am Pat. NO: [id number] MD:SOLEDAD AGUIARAMARILLO [facility]:Moraima Keita RDMS :1990Age:30 INDICATION Suboptimal heart anatomy [...] 0 lb 13 oz EFW by Hadlock ([id number]) Head / Face / Neck Biometry: Surgical Endoscopist 7.5 mm CM 3.7 mm Nasal bone [...] vena cava. Inferior vena cava. 3-vessel view. 4-btelcj-uchifmy view. Cardiac po sition. Cardiac size. Cardiac [...] cervix appears long and closed. Soledad Robert [facility] US ORDERABLES documented in this encounter Visit Diagnoses Diagnosis related condition, antepartum - Primary related condition, antepartum documented in this encounter Additional Health Concerns Assessment Noted Time PHQ-9 Depression Total Score: 10 02/02/2020 8:23 AM CD T documented as of this encounter Care Teams Regional Economist Relationship Specialty Start Date End Date Blank Lemos MD PCP - General Internal Medicine 04/22/[address] [place] [address] [place] R[place] [phone] Blank Lemos MD Assigned PCP 04/25/[address] [place] [address] K[place] RENO [phone] documented as of this encounter
--- OUTSIDE RECORDS SUMMARY | 2022-07-02 11:10 | XMS_ITS | Encounter Summary ---
:1990 Author Organization [place] Address [facility] [place] [address] Care Team Providers Name Role Phone Blank Lemos MD Primary Care Provider Blank Lemos MD Unavailable Kathleen Lacy CNM Unavailable Reason for Visit Reason Comments Care Encounter Details Date Type Department Care Team Description 07/23/2020 Office [facility] Kathleen Lacy Enco unter for supervision of normal first in third trimester (Primary Dx); Visit [facility] CNM Anxiety during in second trime ster, antepartum [place] [address] [place], [place] [address] [address] [place], [place] [phone] [address] (Work) [phone] Social History Tobacco Use Types Packs/Day Years [...] with No / Unsure 07/23/2020 1:56 PM TOOL AND DIE DESIGNER someone who was confirmed or suspected to have Coronavirus / COVID-19? documented as of this encounter Last Filed Vital Signs Vital Sign Reading Time Taken Comments Blood Pressure 118/72 07/23/2020 2:00 PM TOOL AND DIE DESIGNER Pulse - - Temperature - - Respiratory Rate - - Oxygen Saturation - - Inhaled Oxygen Concentration - - Weight 107.5 kg (237 lb) 07/23/2020 2:00 PM TOOL AND DIE DESIGNER Height - - Body Mass Index 41.98 04/09/2020 1:36 PM CDT documented in this encounter Patient Instructions Patient InstructionsKathleen Lacy CNM - 07/23/2020 2:00 PM CST [email or web address] Weeks 27 thru 32 [...] since the end of the first trimester. AND DIE DESIGNER documented in this encounter Progress Notes Kathleen [...] clinic 2 weeks Kathleen Lacy APRN, CNM AND DIE DESIGNER documented in this encounter Nursing Notes Gonzalez [...] Pt. has never smoked. Gonzalez Mitchell MA AND DIE DESIGNER documented in this encounter Plan of Treatment [...] as of this encounter Care Teams Computer Programmer Analyst Relationship Specialty Start Date End Date Blank Lemos MD PCP - General Internal Medicine 04/22/[address] [place] [address] KISHAN RENO [phone] Blank Lemos MD Assigned PCP 04/25/[address] [place] [address] K[place] R[place] [phone] Kathleen Lacy CNM Assigned OBGYN Provider 06/01/20 11/23/21 [place] [address] documented as of this encounter
--- OUTSIDE RECORDS SUMMARY | 2022-07-02 11:10 | XMS_ITS | Encounter Summary ---
:1990 Author Organization [place] Address [facility] [place] [address] Care Team Providers Name Role Phone Blank Lemos MD Primary Care Provider Blank Lemos MD Unavailable Reason for Visit Diagnostic Imaging Ultrasound (Routine) - Closed Specialty Diagnoses / Procedures Referred By Contact Refer red To Contact Diagnoses care in first trimester Mayra Cooper CNM Procedures [facility] OB > [address] Weeks [address] [place], [place] [address] Referral ID Status Reason Start Date Expiration Date Visits Requ ested Visits Authorized [id number] Closed 03/27/2020 03/27/2021 1 1 Encounter Details Date Type Department Care Team Description 05/01/2020 Ancillary Procedure [facility] Mayra Cooper care in Clinic Kely Kendall CNM first trimester 303 [facility] [address] [place] [address] [place] [phone] Social History Tobacco Use Types Packs/Day Years [...] Laterality Volume Narrative 05/01/2020 11:40 AM CDT [facility] Obstetrics and Gynecology ?? ULTRASOUND - [...] fluid assessment is: Normal. Recommend referral to [facility] for targeted u ltrasound to evaluate anatomy not well seen on this exam. anomalies may be present but not d etected. Dina Germain MD Obstetrics and Gynecology [facility] ? Mayra Kendall Allison CN IMG US ORDERABLES documented in this encounter Visit Diagnoses Diagnosis care in first trimester documented in this encounter Additional Health Concerns Assessment Noted Time PHQ-9 Depression Total Score: 10 02/02/2020 8:23 AM CD T documented as of this encounter Care Teams Chief Projectionist Relationship Specialty Start Date End Date Blank Lemos MD PCP - General Internal Medicine 04/22/[address] [place] [address] KISHAN RENO [phone] Blank Lemos MD Assigned PCP 04/25/[address] [place] [address] KISHAN RENO [phone] documented as of this encounter
--- OUTSIDE RECORDS SUMMARY | 2022-07-02 11:10 | XMS_ITS | Encounter Summary ---
:1990 Author Organization [place] Address [facility] [place] [address] Care Team Providers Name Role Phone Blank Lemos MD Primary Care Provider Blank Lemos MD Unavailable Reason for Visit Reason Comments Colposcopy 15 weeks Encounter Details Date Type Department Care Team Description 04/09/2020 Office Visit [facility] Sharita Frias ASCUS wi th positive [facility] MD Bul high risk HPV cervical [place] [id number] [place] [address] (Primary Dx) [address] [place], [place] [address] [address] [place], [place] (Work) [address] [phone] Social History Tobacco Use Types Packs/Day Years [...] +HR HPV, not 16/18. Plan colp 10/07/18 [place]- No lesions seen, no Bx taken. Plan [...] Procedure Name Priority Date/Time Associated Diagnosis Comme [facility] HC COLP CERVIX/UPPER Routine 04/09/2020 1:59 [...] as of this encounter Care Teams Litigation Associate Relationship Specialty Start Date End Date Blank Lemos MD PCP - General Internal Medicine 04/22/[address] [place] [address] K[place] RENO [phone] Blank Lemos MD Assigned PCP 04/25/[address] [place] [address] K[place] RENO [phone] documented as of this encounter
--- OUTSIDE RECORDS SUMMARY | 2022-07-02 11:10 | XMS_ITS | Encounter Summary ---
:1990 Author Organization [place] Address [facility] [place] [address] Care Team Providers Name Role Phone Blank Lemos MD Primary Care Provider Blank Lemos MD Unavailable Reason for Visit Reason Onset Date Comments Refill Request 04/18/2020 traZODone (DESYREL) 50 MG tablet (Discontinued) Encounter Details Date Type Department Care Team Description 04/18/2020 Refill [facility] Blank Lemos, Re fill Request Clinic Dev [place] (traZODone (DESYREL) 50 [address] [place] [address] [facility] MG ta blet (Discontinued) [facility] ) [address] [place] [address] [place] [address] [phone] Social History Tobacco Use Types Packs/Day Years [...] of this encounter Care Teams Director Of Orthopedics Relationship Specialty Start Date End Date Blank Lemos MD PCP - General Internal Medicine 04/22/[address] [place] [address] Blank Lemos MD Assigned PCP 04/25/[address] [place], [place] [address] documented as of this encounter
--- OUTSIDE RECORDS SUMMARY | 2022-07-02 11:10 | XMS_ITS | Encounter Summary ---
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 documented as of this encounter Plan of Treatment Not on filedocumented as of this encounter Visit Diagnoses Not on filedocumented in this encounter Additional Health Concerns Assessment Noted Time PHQ-9 Depression Total Score: 10 02/02/2020 8:23 AM CD T documented as of this encounter Care Teams Washateria Attendant Relationship Specialty Start Date End Date Blank Lemos MD PCP - General Internal Medicine 04/22/[address] [place] [address] KISHAN RENO [phone] Blank Lemos MD Assigned PCP 04/25/[address] [place] [address] [place] [phone] Kathleen Lacy CNM Assigned OBGYN Provider 06/01/20 11/23/21 Cipriano Rivera [place] [address] documented as of this encounter
--- OUTSIDE RECORDS SUMMARY | 2022-07-02 11:10 | XMS_ITS | Encounter Summary ---
:1990 Author Organization [place] Address [address] [place] [address] Care Team Providers Name Role Phone Blank [...] documented as of this encounter Care Teams Feeder Associate Relationship Specialty Start Date End Date Blank Lemos MD PCP - General Internal Medicine 04/22/[address] [place] [address] KISHAN RENO [phone] Blank Lemos MD Assigned PCP 04/25/[address] [place] [address] [place] R[place] [phone] documented as of this encounter
--- OUTSIDE RECORDS SUMMARY | 2022-07-02 11:10 | XMS_ITS | Encounter Summary ---
:1990 Author Organization [place] Address [facility] [place] [address] Care Team Providers Name Role Phone Blank Lemos MD Primary Care Provider Blank Lemos MD Unavailable Kathleen Lacy CNM Unavailable Reason for Visit Reason Comments Shortness of Breath Tachycardia Encounter Details Date Type Department Care Team Description 07/09/2020 Emergency [facility] Chilango Lentz MD [facility] [address] [place], [place] [address] Panic attack; [facility] Emergency Dep t Avelino Weinstein MD [facility] [address] [place], [place] [phone] 28 weeks gestation of [address] [place] [phone] Social History Tobacco Use Types Packs/Day Years [...] with No / Unsure 07/09/2020 7:18 PM SERVICE DIRECTOR someone who was confirmed or suspected to have Coronavirus / COVID-19? documented as of this encounter Last Filed Vital Signs Vital Sign Reading Time Taken Comments Blood Pressure 154/94 07/09/2020 7:19 PM SERVICE DIRECTOR Pulse 90 07/09/2020 7:19 PM SERVICE DIRECTOR Temperature 36.4 ??C (97.6 ??F) 07/09/2020 7:19 PM SERVICE DIRECTOR Respiratory Rate 16 07/09/2020 7:19 PM SERVICE DIRECTOR Oxygen Saturation 99% 07/09/2020 7:19 PM SERVICE DIRECTOR Inhaled Oxygen Concentration - - Weight - - Height - - Body Mass Index - - documented in this encounter Discharge Instructions AttachmentsThe following attachments cannot be sent through Care Everywhere. Panic Attack (Turkmen)documented in this encounter Medications at Time of [...] 1800 this evening. She spoke with her senior financial analyst who thought she sounded SOB and should come to the ER for evaluation. Did call OB charge who wants patient to be seen in the ER. ICE DIRECTOR Avelino Weinstein MD - 07/09/2020 7:14 PM CST History Chief Complaint: Shortness of Breath and Tachycardia KEARA Turner is a 30 year old female who is 28 weeks (G1) with a history of anxiety and panic attacks who presents with shortness of breath and tachycardia. 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 DE interval 150 ms. QRS duration 74 ms. [...] observations and the provider's statements to me. [facility] EMERGENCY DEPT Avelino Weinstein MD 07/10/20 0001 ICE DIRECTOR documented in this encounter Plan of Treatment Not on filedocumented as of this encounter Procedures Procedure Name Priority Date/Time Associated Comments Diagnosis CBC WITH PLATELETS & STAT 07/09/2020 7:21 PM R esults for this DIFFERENTIAL SERVICE DIRECTOR procedure are i n the results section. TROPONIN I STAT 07/09/2020 7:21 PM Results f or this SERVICE DIRECTOR procedure are i n the results section. BASIC METABOLIC PANEL STAT 07/09/2020 7:21 PM Results for this SERVICE DIRECTOR procedure are i n the results section. EKG 12-LEAD, TRACING STAT 07/09/2020 7:19 PM R esults for this ONLY SERVICE DIRECTOR procedure are i n the results section. documented in this encounter Results (ABNORMAL) CBC with platelets differential (07/09/2020 7:21 PM [facility]) [facility] Method Time Signature WBC 14.3 (H) 4.0 - 07/09/2020 [facility] 11.0 7:38 PM [facility] 10e9/L HOSPITAL RBC Count 3.86 3.8 - 5.2 07/09/2020 [facility] 10e12/L 7:38 PM [facility] Hemoglobin 12.5 11.7 - 07/09/2020 [facility] 15.7 g/dL 7:38 PM [facility] Hematocrit 37.7 35.0 - 07/09/2020 [facility] 47.0 % 7:38 PM [facility] MCV 98 78 - 100 07/09/2020 [facility] fl 7:38 PM [facility] MCH 32.4 26.5 - 07/09/2020 [facility] 33.0 pg 7:38 PM [facility] MCHC 33.2 31.5 - 07/09/2020 [facility] 36.5 g/dL 7:38 PM [facility] RDW 15.1 (H) 10.0 - 07/09/2020 [facility] 15.0 % 7:38 PM [facility] Platelet Count 328 150 - 450 07/09/2020 [facility] 10e9/L 7:38 PM [facility] Diff Method Automated 07/09/2020 [facility] Method 7:38 PM [facility] % Neutrophils 71.2 % 07/09/2020 [facility] 7:38 PM [facility] % Lymphocytes 22.8 % 07/09/2020 [facility] 7:38 PM [facility] % Monocytes 3.8 % 07/09/2020 [facility] 7:38 PM [facility] % Eosinophils 1.4 % 07/09/2020 [facility] 7:38 PM [facility] % Basophils 0.2 % 07/09/2020 [facility] 7:38 PM [facility] % Immature 0.6 % 07/09/2020 [facility] Granulocytes 7:38 PM [facility] Nucleated RBCs 0 0 /100 07/09/2020 [facility] 7:38 PM [facility] Absolute 10.2 (H) 1.6 - 8.3 07/09/2020 [facility] Neutrophil 10e9/L 7:38 PM [facility] Absolute 3.3 0.8 - 5.3 07/09/2020 [facility] Lymphocytes 10e9/L 7:38 PM [facility] Absolute 0.5 0.0 - 1.3 07/09/2020 [facility] Monocytes 10e9/L 7:38 PM [facility] Absolute 0.2 0.0 - 0.7 07/09/2020 [facility] Eosinophils 10e9/L 7:38 PM [facility] Absolute 0.0 0.0 - 0.2 07/09/2020 [facility] Basophils 10e9/L 7:38 PM [facility] Abs Immature 0.1 0 - 0.4 07/09/2020 [place] Granulocytes 10e9/L 7:38 PM [facility] Absolute 0.0 07/09/2020 [place] Nucleated RBC 7:38 PM [facility] Specimen Anatomical Collection Method Collection Time Receive d Time (Source) Location / / Volume Laterality Blood specimen 07/09/2020 7:21 PM 020 7:34 (specimen) SERVICE DIRECTOR PM SERVICE DIRECTOR Chilango Lentz MD LAB - BLOOD ORDERABLES Performing Organization Address City/State/ZIP Code Phon e Number [place] [address] [place] [address] [phone] Troponin I (07/09/2020 7:21 PM SERVICE DIRECTOR) athologist Signature Troponin I ES <0.015 0.000 - 07/09/2020 [place] 0.045 ug/L 8:14 PM [facility] Comment: The 99th percentile for upper reference range is 0.045 ug/L. ??Troponin values in the range of 0.045 - 0.120 ug/L may b e associated with risks of adverse clinical events. Specimen Anatomical Collection Method Collection Time Receive d Time (Source) Location / / Volume Laterality Blood specimen 07/09/2020 7:21 PM 020 7:34 (specimen) SERVICE DIRECTOR PM SERVICE DIRECTOR Chilango Lentz MD LAB - BLOOD ORDERABLES Performing Organization Address City/State/ZIP Code Phon e Number M [facility] [address] [place], [place] [address] [facility] [address] [place], [place] [address] [phone] (ABNORMAL) Basic metabolic panel (07/09/2020 7:21 PM [facility]) athologist Signature Sodium 138 133 - 144 07/09/2020 [place] mmol/L 8:02 PM [facility] Potassium 3.3 (L) 3.4 - 5.3 07/09/2020 [place] mmol/L 8:02 PM [facility] Chloride 106 94 - 109 07/09/2020 [place] mmol/L 8:02 PM [facility] Carbon Dioxide 25 20 - 32 07/09/2020 [place] mmol/L 8:09 PM [facility] Anion Gap 7 3 - 14 07/09/2020 [place] mmol/L 8:09 PM [facility] Glucose 117 (H) 70 - 99 07/09/2020 [place] mg/dL 8:09 PM [facility] Urea Nitrogen 4 (L) 7 - 30 07/09/2020 [place] mg/dL 8:09 PM [facility] Creatinine 0.62 0.52 - 07/09/2020 [place] 1.04 mg/dL 8:09 PM [facility] GFR Estimate >90 >60 07/09/2020 [place] mL/min/{1. 8:09 PM [facility] 73_m2} HOSPITAL Comment: Non GFR Calc Starting 07/27/2018, serum creatinine ba sed estimated GFR (eGFR) will be calculated using the Chronic Kidney Dise [facility] Epidemiology Collaboration (CKD-EPI) equation. GFR Estimate If >90 >60 mL/min/{1.73_m2} 07/09/2020 8: 09 PM [facility] Comment: GFR Calc Starting 07/27/2018, serum creatinine ba sed estimated GFR (eGFR) will be calculated using the Chronic Kidney Dise [facility] Epidemiology Collaboration (CKD-EPI) equation. Calcium 9.3 8.5 - 10.1 mg/dL 07/09/2020 8:09 PM [facility] Specimen Anatomical Collection Method Collection Time Receive d Time (Source) Location / / Volume Laterality Blood specimen 07/09/2020 7:21 PM 020 7:34 (specimen) SERVICE DIRECTOR PM SERVICE DIRECTOR Chilango Lentz MD LAB - BLOOD ORDERABLES Performing Organization Address City/State/ZIP Code Phon e Number [facility] [address] [place] [address] [facility] [address] [place], [place] [address], [facility] [phone] [facility] [address] [place] [address], [facility] EKG 12-lead, tracing only (07/09/2020 7:19 PM SERVICE DIRECTOR) [facility] Method Time Signature Interpretation ECG Click View RADIOLOGY Image link RESULTS to view waveform and result Specimen (Source) Anatomical Collection Method Collection Time Re ceived Time Location / / Volume Laterality 07/09/2020 7:19 PM SERVICE DIRECTOR Chilango Lentz MD ECG ORDERABLES Performing Organization Address City/State/ZIP Code Phon e Number RADIOLOGY RESULTS documented in this encounter Visit Diagnoses Diagnosis Panic attack Panic disorder without agoraphobia 28 weeks gestation of state, incidental documented in this encounter Additional Health Concerns Assessment Noted Time PHQ-9 Depression Total Score: 10 02/02/2020 8:23 AM CD T documented as of this encounter Care Teams Volunteer Patient Representative Relationship Specialty Start Date End Date Blank Lemos MD PCP - General Internal Medicine 04/22/[address] [place] [address] [place] [phone] Blank Lemos MD Assigned PCP 04/25/[address] [place] [address] [place] [phone] Kathleen Lacy CNM Assigned OBGYN Provider 06/01/20 11/23/21 [address] [place] [address] documented as of this encounter
--- OUTSIDE RECORDS SUMMARY | 2022-07-02 11:10 | XMS_ITS | Encounter Summary ---
:1990 Author Organization [place] Address [address] [facility] [place] [address] Care Team Providers Name Role Phone Blank Lemos MD Primary Care Provider Blank Lemos MD Unavailable Kathleen Lacy CNM Unavailable Reason for Visit Reason Comments Care 25w 4d Encounter Details Date Type Department Care Team Description 06/18/2020 Office [facility] Chapo Jones for supervision of normal first in second trimester (Primary Dx); Visit [facility] YARELI Rowe Non morbid obesity, unspecified obesity type [place] [address] [place], [place] [address] [address] [place], [place] [phone] [address] (Work) [phone] Social History Tobacco Use Types Packs/Day Years [...] with No / Unsure 06/18/2020 2:11 PM MANAGER ROUTE someone who was confirmed or suspected to have Coronavirus / COVID-19? documented as of this encounter Last Filed Vital Signs Vital Sign Reading Time Taken Comments Blood Pressure 116/66 06/18/2020 2:16 PM MANAGER ROUTE Pulse - - Temperature - - Respiratory Rate - - Oxygen Saturation - - Inhaled Oxygen Concentration - - Weight 107 kg (236 lb) 06/18/2020 2:16 PM MANAGER ROUTE Height - - Body Mass Index 41.81 [...] me. Britney Jones CNM 06/18/2020 2:34 PM GER ROUTE documented in this encounter Plan of Treatment [...] documented as of this encounter Care Teams Telephone Diaphragm Assembler Relationship Specialty Start Date End Date Blank Lemos MD PCP - General Internal Medicine 04/22/18 [address] [facility] [place] R[place] [phone] Blank Lemos MD Assigned PCP 04/25/18 [address] [facility] K[place] R[place] [phone] Kathleen Lacy CNM Assigned OBGYN Provider 06/01/20 11/23/21 [place] [address] documented as of this encounter
--- OUTSIDE RECORDS SUMMARY | 2022-07-02 11:10 | XMS_ITS | Encounter Summary ---
:1990 Author Organization [place] Address [address] [place] [address] Care Team Providers Name Role Phone Blank [...] documented as of this encounter Care Teams Doorshaker Relationship Specialty Start Date End Date Blank Lemos MD PCP - General Internal Medicine 04/22/[address] [place] [address] KISHAN RENO [phone] Blank Lemos MD Assigned PCP 04/25/[address] [place] [address] [place] [phone] documented as of this encounter
--- OUTSIDE RECORDS SUMMARY | 2022-07-02 11:10 | XMS_ITS | Encounter Summary ---
:1990 Author Organization [place] Address [address] [place] [address] Care Team Providers Name Role Phone Blank [...] as of this encounter Care Teams Gas Cutting Machine Operator Relationship Specialty Start Date End Date Blank Lemos MD PCP - General Internal Medicine 04/22/[address] [place] [address] KISHAN RENO [phone] Blank Lemos MD Assigned PCP 04/25/[address] [place] [address] K[place] RENO [phone] documented as of this encounter
--- OUTSIDE RECORDS SUMMARY | 2022-07-02 11:10 | XMS_ITS | Encounter Summary ---
:1990 Author Organization [place] Address [facility] [place] [address] Care Team Providers Name Role Phone Blank Lemos MD Primary Care Provider Blank Lemos MD Unavailable Reason for Referral Diagnostic Imaging Ultrasound (Routine) - Closed Specialty Diagnoses / Procedures Referred By Contact Refer red To Contact Diagnoses related condition, antepartum Soledad Jones CNM Procedures [facility] Single [address] [place] [address] Referral ID Status Reason Start Date Expiration Date Visits Requ ested Visits Authorized [id number] Closed 05/01/2020 05/01/2021 1 1 Reason for Visit Diagnostic Imaging Ultrasound (Routine) - Closed Specialty Diagnoses / Procedures Referred By Contact Refer red To Contact Diagnoses related condition, antepartum Soledad Jones CNM Procedures [facility] Single [address] [place] [address] Referral ID Status Reason Start Date Expiration Date Visits Requ ested Visits Authorized [id number] Closed 05/01/2020 05/01/2021 1 1 Encounter Details Date Type Department Care Team Description 05/11/2020 Hospital Encounter [facility] Soledad Jones CNM [address] [place], [place] [address] related Maternal Ana Danielle MD [address] [place] [address] condition, Medicine Center antepartum [employer] Cipriano Webb [facility] [address] [place] [phone] Social History Tobacco Use Types Packs/Day Years [...] Procedure Name Priority Date/Time Associated Comments Diagnosis [facility] US COMPREHENSIVE Routine 05/11/2020 10:21 relate d Results for this SINGLE AM CDT condition, procedure are i n antepartum the results section. documented in this encounter Results [facility] US Comprehensive Single (05/11/2020 10:21 AM [...] Study Date : 05/11/2020 9:20am Pat. NO: [id number] Referring ??[facility] Practice Lead: Moraima Keita RD MS : 1990 Age: [...] lb 13 ? oz EFW by ?Hadlock (RXV-[id number]-ZZ-FL) Head / Face / Neck Biometry: Laceworker ? 7.5 ? mm CM ?3.7 ? [...] cava. Inferior vena cava. 3-vessel ? view. 0-njcaua-syioqor view. Cardiac position. Cardiac size. Cardiac rhythm. [...] Pat. Name:Noemi RESENDIZ Date: 9:20am Pat. NO: [id number] MD:SOLEDAD WERNER [place]:Moraima Keita RDMS :1990Age:30 INDICATION Suboptimal heart anatomy [...] 0 lb 13 oz EFW by Hadlock ([id number]-FL) Head / Face / Neck Biometry: Laceworker 7.5 mm CM 3.7 mm Nasal bone [...] vena cava. Inferior vena cava. 3-vessel view. 8-xmxhlc-fplrjwj view. Cardiac po sition. Cardiac size. Cardiac [...] cervix appears long and closed. Soledad Cruzosmeljodie [facility] US ORDERABLES documented in this encounter Visit Diagnoses Diagnosis related condition, antepartum documented in this encounter Additional Health Concerns Assessment Noted Time PHQ-9 Depression Total Score: 10 02/02/2020 8:23 AM CD T documented as of this encounter Care Teams Resource Analyst Relationship Specialty Start Date End Date Blank Lemos MD PCP - General Internal Medicine 04/22/[address] [place] [address] KISHAN RENO [phone] Blank Lemos MD Assigned PCP 04/25/[address] [place] [address] KISHAN RENO [phone] documented as of this encounter
--- OUTSIDE RECORDS SUMMARY | 2022-07-02 11:10 | XMS_ITS | Encounter Summary ---
:1990 Author Organization [place] Address [facility] [place] [address] Care Team Providers Name Role Phone Blank Lemos MD Primary Care Provider Blank Lemos MD Unavailable Reason for Visit Reason Comments Care 17w 5d, c/o left wrist pain and increase of migraines Encounter Details Date Type Department Care Team Description 04/24/2020 Office [facility] Kathleen Lacy Enco unter for supervision of normal first in second trimester (Primary Dx); [facility] CNM Headache in , antepartum, secon d trimester; [place] [address] Carpal tunnel syndrome of le ft wrist [address] [place], [place] [address] [address] [place], [place] [phone] [address] (Work) [phone] Social History Tobacco Use Types Packs/Day Years [...] bent back when typing. ?? You may use??dqen-rgq-wkjrvnm pain medicine to treat pain and inflammation, [...] or weak Date Last Reviewed: 12/08/2017 ?? [id number] [employer]. [address] [place] [address], [place] [address]. All rights reserved. This information is not [...] documented as of this encounter Care Teams Communication Manager Relationship Specialty Start Date End Date Blank Lemos MD PCP - General Internal Medicine 04/22/[address] [place] [address] K[place] RENO [phone] Blank Lemos MD Assigned PCP 04/25/[address] [place] [address] K[place]AN RENO [phone] documented as of this encounter
--- OUTSIDE RECORDS SUMMARY | 2022-07-02 11:10 | XMS_ITS | Encounter Summary ---
:1990 Author Organization [place] Address [facility] [place] [address] Care Team Providers Name Role Phone Blank Lemos MD Primary Care Provider Blank Lemos MD Unavailable Reason for Visit Reason Comments Ultrasound L2-subopt anatomy on outside scan Encounter Details Date Type Department Care Team Description 05/09/2020 PRE VISIT [facility] Eliza Lux, UNRULY Ultra sound (L2-subopt Maternal Medicine guillermina harjeet on outside scan) [facility] [address] [facility] [address] [place] [address] Social History Tobacco Use Types [...] documented as of this encounter Care Teams Plant Tour Guide Relationship Specialty Start Date End Date Blank Lemos MD PCP - General Internal Medicine 04/22/[address] [place] [address] KISHAN RENO [phone] Blank Lemos MD Assigned PCP 04/25/[address] [place] [address] KISHAN RENO [phone] documented as of this encounter
--- OUTSIDE RECORDS SUMMARY | 2022-07-02 11:10 | XMS_ITS | Encounter Summary ---
:1990 Author Organization [place] Address [facility] [place] [address] Care Team Providers Name Role Phone Blank Lemos MD Primary Care Provider Blank Lemos MD Unavailable Reason for Visit Reason Comments Ultrasound L2- subopt anatomy on outsid e screen Encounter Details Date Type Department Care Team Description 05/11/2020 Office Visit [facility] Stevan Jones nn, CN [address] [place] [address] related Maternal Ana Danielle MD [address] [place], [place] [phone] condition, antepartum Medicine Center (Primary Dx) [place] [address] [facility] [address] [place] [address] Social History Tobacco Use Types [...] documented as of this encounter Care Teams Dock Operator Relationship Specialty Start Date End Date Blank Lemos MD PCP - General Internal Medicine 04/22/[address] [place] [address] K[place]AN RENO [phone] Blank Lemos MD Assigned PCP 04/25/[address] [place] [address] K[place]AN RENO [phone] documented as of this encounter
--- OUTSIDE RECORDS SUMMARY | 2022-07-02 11:10 | XMS_ITS | Encounter Summary ---
:1990 Author Organization [employer] Address [address] [place] [address] Care Team Providers Name Role Phone Blank [...] No / Unsure 06/18/2020 2:11 PM MANAGER OF RECRUITING someone who was confirmed or suspected to have Coronavirus / COVID-19? documented as of this encounter Plan of Treatment Not on filedocumented as of this encounter Visit Diagnoses Not on filedocumented in this encounter Additional Health Concerns Assessment Noted Time PHQ-9 Depression Total Score: 10 02/02/2020 8:23 AM CD T documented as of this encounter Care Teams Set Up Inspector Relationship Specialty Start Date End Date Blank Lemos MD PCP - General Internal Medicine 04/22/[address] [place] [address] KISHAN RENO [phone] Blank Lemos MD Assigned PCP 04/25/[address] [place] [address] K[place] RENO [phone] Kathleen Lacy CNM Assigned OBGYN Provider 06/01/20 11/23/21 [place] [phone] documented as of this encounter
--- OUTSIDE RECORDS SUMMARY | 2022-07-02 11:10 | XMS_ITS | Encounter Summary ---
:1990 Author Organization [place] Address [address] [facility] [place] [address] Care Team Providers Name Role Phone Blank Lemos MD Primary Care Provider Blank Lemos MD Unavailable Kathleen LacyM Unavailable Reason for Referral (Routine) - Closed Specialty Diagnoses / Procedures Referred By Contact Refer red To Contact Diagnoses Encounter for supervision of normal first , third trimester Kathy Ingram Procedures TDAP VACCINE (Adacel, Boostrix) [[id number]] GINNY SantosM [address] [address] Referral ID Status Reason Start Date Expiration Date Visits Requ ested Visits Authorized [id number] Closed 07/09/2020 07/09/2021 1 1 ING AND WEBBING INSPECTOR Reason for Visit Reason Comments Care 28w 4d GCT and tdap today, q uestions on COVID restrictions, back pain worsening x1-2wks, and hearb urn-vomits with Tums Encounter Details Date Type Department Care Team Description 07/09/2020 Office [facility] Kathy Davis for supervision of normal first , third trimester (Primary Dx); [facility] Dianna Benitez in third trimester [place] HARDWARE TEST ENGINEERZeb DOWNS [address] [address] [facility] Breana CHOUDHARY, [address] [place] [address] Social History Tobacco Use Types Packs/Day [...] with No / Unsure 07/09/2020 8:25 AM BELTING AND WEBBING INSPECTOR someone who was confirmed or suspected to have Coronavirus / COVID-19? documented as of this encounter Last Filed Vital Signs Vital Sign Reading Time Taken Comments Blood Pressure 124/82 07/09/2020 8:31 AM BELTING AND WEBBING INSPECTOR Pulse - - Temperature - - Respiratory Rate - - Oxygen Saturation - - Inhaled Oxygen Concentration - - Weight 108.4 kg (239 lb) 07/09/2020 8:31 AM BELTING AND WEBBING INSPECTOR Height - - Body Mass Index 42.34 [...] since the end of the first trimester. ING AND WEBBING INSPECTOR documented in this encounter Progress Notes Kathy [...] RPR and Titer TDAP VACCINE (Adacel, Boostrix) [[id number]] sucralfate (CARAFATE) 1 GM tablet 2. Heartburn [...] 2 weeks. Kathy Ingram DNP, GINNY, CNM ING AND WEBBING INSPECTOR documented in this encounter Nursing Notes [...] Due: NONE Luz Maria Abreu CMA ING AND WEBBING INSPECTOR documented in this encounter Plan of Treatment Not on filedocumented as of this encounter Procedures Procedure Name Priority Date/Time Associated Diagnosis Comme nts TREPONEMA ABS W Routine 07/09/2020 9:29 AM Encounter for Resul ts for this REFLEX TO RPR AND BELTING AND WEBBING INSPECTOR supervision of ole abarca are in TITER normal first the results , third section. trimester GLUCOSE TOLERANCE Routine 07/09/2020 9:29 AM Encounter for Res ults for this GEST SCREEN 1 HOUR BELTING AND WEBBING INSPECTOR supervision of procedu re are in normal first the results , third section. trimester CBC WITH PLATELETS Routine 07/09/2020 9:29 AM Encounter for Re sults for this BELTING AND WEBBING INSPECTOR supervision of procedure are in normal first the results , third section. trimester documented in this encounter Results Treponema Abs w Reflex to RPR and Titer (07/09/2020 9:29 AM BELTING AND WEBBING INSPECTOR) [facility] Method Time Signature Treponema Nonreactive NR^Nonrea 07/10/2020 [facility] ctive 10:07 AM BELTING AND WEBBING INSPECTOR [facility] Comment: Methodology Change: Test performed on [employer] Liaison XL by Treponema pallidum Total Antibodies Assay as of . Specimen Anatomical Collection Method Collection Time Receive d Time (Source) Location / / Volume Laterality Blood specimen 07/09/2020 9:29 AM 020 9:30 (specimen) BELTING AND WEBBING INSPECTOR AM BELTING AND WEBBING INSPECTOR Kathy Ingram APRN, CNM LAB - BLOOD [place] Performing Organization Address City/State/ZIP Code Phon e Number [facility] [address] (ABNORMAL) CBC with platelets (07/09/2020 9:29 AM BELTING AND WEBBING INSPECTOR) [facility] Method Time Signature WBC 12.4 (H) 4.0 - 11.0 07/09/2020 [facility] 10e9/L 10:08 AM [facility] RBC Count 3.69 (L) 3.8 - 5.2 07/09/2020 [facility] 10e12/L 10:08 AM [facility] Hemoglobin 11.8 11.7 - 07/09/2020 [facility] 15.7 g/dL 10:08 AM [facility] Hematocrit 36.6 35.0 - 07/09/2020 [facility] 47.0 % 10:08 AM [facility] MCV 99 78 - 100 07/09/2020 [facility] fl 10:08 AM [facility] MCH 32.0 26.5 - 07/09/2020 [facility] 33.0 pg 10:08 AM [facility] MCHC 32.2 31.5 - 07/09/2020 [facility] 36.5 g/dL 10:08 AM [facility] RDW 15.3 (H) 10.0 - 07/09/2020 [place] 15.0 % 10:08 AM [facility] Platelet Count 321 150 - 450 07/09/2020 [place] 10e9/L 10:08 AM [facility] Specimen Anatomical Collection Method Collection Time Receive d Time (Source) Location / / Volume Laterality Blood specimen 07/09/2020 9:29 AM 020 9:30 (specimen) BELTING AND WEBBING INSPECTOR AM BELTING AND WEBBING INSPECTOR Kathy FARMER LAB - BLOOD WALKER [place] Performing Organization Address City/[facility]/ZIP Code Phon e Number [facility] [address] [place], [place] [address] [address] Glucose tolerance, gest screen, 1 hour (07/09/2020 9:29 AM BELTING AND WEBBING INSPECTOR) P athologist Signature Glu Gest Screen 105 60 - 129 07/10/2020 [place] 1hr 50g mg/dL 7:25 AM [facility] Specimen Anatomical Collection Method Collection Time Receive d Time (Source) Location / / Volume Laterality Blood specimen 07/09/2020 9:29 AM 020 9:30 (specimen) BELTING AND WEBBING INSPECTOR AM BELTING AND WEBBING INSPECTOR Kathy Ingram APRN, CNM LAB - BLOOD WALKER [place] Performing Organization Address City/[facility]/ZIP Code Phon e Number [facility] [address] [address] [place] [address] [place] [address], [facility] [phone] documented in this encounter Visit Diagnoses Diagnosis Encounter for supervision of normal firs t , third trimester - Primary Heartburn during in third trim dewayne documented in this encounter Additional Health Concerns Assessment Noted Time PHQ-9 Depression Total Score: 10 02/02/2020 8:23 AM CD T documented as of this encounter Care Teams Assistant At Surgery Relationship Specialty Start Date End Date Blank Lemos MD PCP - General Internal Medicine 04/22/18 [address] [place], [place] [address] Blank Lemos MD Assigned PCP 04/25/18 [address] [place], [place] [id number] Kathleen Lacy CNM Assigned OBGYN Provider 06/01/20 11/23/21 [address] [place] [address] documented as of this encounter
--- OUTSIDE RECORDS SUMMARY | 2022-07-02 11:10 | XMS_ITS | Encounter Summary ---
:1990 Author Organization [place] Address [facility] [place] [address] Care Team Providers Name Role Phone Blank Lemos MD Primary Care Provider Blank Lemos MD Unavailable Reason for Visit Reason Comments Care 21w 4d, discsuss SOB, sweati ng, gagging while eating, medications and itching hands for a couple d ays Encounter Details Date Type Department Care Team Description 05/21/2020 Office [facility] Kathleen Lacy Prur itus of in second trimester (Primary Dx); [facility] CNM Encounter for supervision of normal firs t in second trimester; [place] [address] Anxiety during in second trimester, antepartum [address] [place], [place] [address] [address] [place], [place] [phone] [address] (Work) [phone] Social History Tobacco Use Types Packs/Day Years [...] Bile Acids 6 0 - 10 05/22/2020 [place] Total umol/L 3:36 PM CDT [facility] Comment: (Note) INTERPRETIVE INFORMATION: Bile Acids, To carlita Reference Interval applies to fasting sp ecimens. Performed By: [facility] [address] [place] [id number] Independent Insurance Adjuster: Annalise Hope MD Specimen Anatomical Collection Method Collection Time Receive d Time (Source) Location / / Volume Laterality Blood specimen 05/21/2020 9:56 AM 020 (specimen) CDT 10:01 AM CDT Kathleen FARMER LAB - BLOOD ORDERABLES Performing Organization Address City/State/ZIP Code Phon e Number [facility] [address] [place], [place] [address] [address] (ABNORMAL) Comprehensive metabolic panel (BMP + Alb, Alk Phos, ALT, AST, Total. Bili, TP) (05/21/2020 9:56 AM CDT) Analysis Performed At [facility] Time Signature Sodium 139 133 - 144 05/22/2020 [place] mmol/L 7:24 AM [facility] Potassium 4.0 3.4 - 5.3 05/22/2020 [place] mmol/L 7:24 AM CDT [facility] Chloride 108 94 - 109 05/22/2020 [place] mmol/L 7:24 AM CDT [facility] Carbon Dioxide 21 20 - 32 05/22/2020 [place] mmol/L 7:48 AM CDT [facility] Anion Gap 10 3 - 14 05/22/2020 [place] mmol/L 7:48 AM CDT [facility] Glucose 110 (H) 70 - 99 05/22/2020 [place] mg/dL 7:48 AM T [facility] Comment: Non Fasting Urea Nitrogen 5 (L) 7 - 30 mg/dL 05/22/2020 7:48 AM T [facility] Creatinine 0.58 0.52 - 1.04 mg/dL 05/22/2020 7:48 AM CD T [facility] GFR Estimate >90 >60 05/22/2020 7:48 AM CDT [facility] mL/min/{1.73_m2} [facility] Comment: Non GFR Calc Starting 07/27/2018, serum creatinine ba sed estimated GFR (eGFR) will be calculated using the Chronic Kidney Dise [facility] Epidemiology Collaboration (CKD-EPI) equation. GFR Estimate If >90 >60 mL/min/{1.73_m2} 05/22/2020 7: 48 AM [facility] Black T [facility] Comment: GFR Calc Starting 07/27/2018, serum creatinine ba sed estimated GFR (eGFR) will be calculated using the Chronic Kidney Dise ase Epidemiology Collaboration (CKD-EPI) equation. Calcium 8.9 8.5 - 10.1 05/22/2020 7:48 AM [place] [facility] mg/dL CDT [facility] Bilirubin Total 0.2 0.2 - 1.3 05/22/2020 7:55 AM [facility] mg/dL CDT [facility] Albumin 2.6 (L) 3.4 - 5.0 g/dL 05/22/2020 7:55 AM [facility] CD[facility] Protein Total 6.4 (L) 6.8 - 8.8 g/dL 05/22/2020 7:[address] [facility] CDT [facility] Alkaline Phosphatase 73 40 - 150 U/L 05/22/2020 7:55 AM [facility] CDT [facility] ALT 18 0 - 50 U/L 05/22/2020 7:55 AM [facility] CDT [facility] AST 14 0 - 45 U/L 05/22/2020 7:55 AM [facility] CDT [facility] Specimen Anatomical Collection Method Collection Time Receive d Time (Source) Location / / Volume Laterality Blood specimen 05/21/2020 9:56 AM 020 (specimen) CDT 10:01 AM CDT Kathleen Lacy CNM LAB - BLOOD ORDERABLES Performing Organization Address City/State/ZIP Code Phon e Number [facility] [address] [place] [address] documented in this encounter Visit Diagnoses Diagnosis Pruritus of in second trimeste r - Primary Encounter for supervision of normal firs t in second trimester Supervision of normal first Anxiety during in second trime ster, antepartum documented in this encounter Additional Health Concerns Assessment Noted Time PHQ-9 Depression Total Score: 10 02/02/2020 8:23 AM CD T documented as of this encounter Care Teams Curb Builder Relationship Specialty Start Date End Date Blank Lemos MD PCP - General Internal Medicine 04/22/18 [address] [place], [place] [address] Blank Lemos MD Assigned PCP 04/25/18 [address] [place] [address] documented as of this encounter
--- OUTSIDE RECORDS SUMMARY | 2022-07-02 11:10 | XMS_ITS | Encounter Summary ---
:1990 Author Organization [place] Address [address] [place] [address] Care Team Providers Name Role Phone Blank [...] documented as of this encounter Care Teams Grading Supervisor Relationship Specialty Start Date End Date Blank Lemos MD PCP - General Internal Medicine 04/22/[address] [place] [address] KISH[place] RENO [phone] Blank Lemos MD Assigned PCP 04/25/[address] [place] [address] [place] R[place] [phone] documented as of this encounter
--- OUTSIDE RECORDS SUMMARY | 2022-07-02 11:10 | XMS_ITS | Encounter Summary ---
:1990 Author Organization [place] Address [facility] [place] [address] Care Team Providers Name Role Phone Blank Lemos MD Primary Care Provider Blank Lemos MD Unavailable Kathleen Lacy CNM Unavailable Reason for Visit Reason Onset Date Comments Refill Request 07/08/2020 escitalopram (LEXAPR O) 20 MG tablet Encounter Details Date Type Department Care Team Description 07/08/2020 Refill [facility] Blank Lemos, Re fill Request Clinic Dev [place] (escitalopram (LEXAPRO) [address] [facility] 20 MG tablet) [facility] [address] [place] [address] [place] [address] [phone] Social History Tobacco Use Types Packs/Day Years [...] with No / Unsure 07/09/2020 7:18 PM DROP WIRE HANGER someone who was confirmed or suspected to [...] medication. Patient verbalized understanding. Oliva Craft RN WIRE HANGER Telephone Encounter - Blank Lemos MD - 07/10/2020 11:56 AM DROP WIRE HANGER Refill x 3 months - she is due for mental health follow up this month or Aug - ok if virtual Blank Lemos MD Internal Medicine/Pediatrics [facility] WIRE HANGER Telephone Encounter - Margarita Lowry RN - 07/10/2020 10:55 AM CST Routing refill request to provider for review/approval because: Positive test on 02/01/20. Margarita Lowry RN on 07/10/2020 at 10:56 AM WIRE HANGER documented in this encounter Plan of Treatment Not on filedocumented as of this encounter Visit Diagnoses Diagnosis Generalized anxiety disorder Bipolar I disorder (H) Bipolar I disorder, most recent episode (or current) unspecified documented in this encounter Additional Health Concerns Assessment Noted Time PHQ-9 Depression Total Score: 10 02/02/2020 8:23 AM CD T documented as of this encounter Care Teams Bank Guard Relationship Specialty Start Date End Date Blank Lemos MD PCP - General Internal Medicine 04/22/[address] [place] [address] [place] [phone] Blank Lemos MD Assigned PCP 04/25/[address] [place] [address] [place] [phone] Kathleen Lacy CNM Assigned OBGYN Provider 06/01/20 11/23/21 [address] [place], [place] [id number] documented as of this encounter
--- OUTSIDE RECORDS SUMMARY | 2022-07-02 11:10 | XMS_ITS | Encounter Summary ---
:1990 Author Organization [place] Address [facility] [place] [address] Care Team Providers Name Role Phone Blank Lemos MD Primary Care Provider Blank Lemos MD Unavailable Kathleen Lacy CNM Unavailable Reason for Visit Reason Onset Date Comments Palpitations 07/09/2020 Encounter Details Date Type Department Care Team Description 07/09/[address] [facility] Soledad sampson CNM Palpitations Clinic [place] [address] [place] [address] [address] [place] [address] [phone] Social History Tobacco Use Types Packs/Day Years [...] with No / Unsure 07/09/2020 8:25 AM TREE EXPERT someone who was confirmed or suspected to have Coronavirus / COVID-19? documented as of this encounter Miscellaneous Notes Telephone Encounter - Soledad Jones CNM - 07/09/2020 6:27 PM CST Pt paged monkey trainer YARELI with reports of very fast and irregular heart beat for the past hour. Reportsit started spontaneously and hasn't subsided despite rest. Pt audibly short of breath while talking over the phone although able to speak in full sentences. Instructed to go to ER for evaluation. Pt voiced understanding. Britney Jones CNM 07/09/2020 6:28 PM EXPERT documented in this encounter Plan of Treatment Not on filedocumented as of this encounter Visit Diagnoses Not on filedocumented in this encounter Additional Health Concerns Assessment Noted Time PHQ-9 Depression Total Score: 10 02/02/2020 8:23 AM CD T documented as of this encounter Care Teams Biomedical Engineering Aide Relationship Specialty Start Date End Date Blank Lemos MD PCP - General Internal Medicine 04/22/18 [address] [facility] [place] [id number] Blank Lemos MD Assigned PCP 04/25/18 [address] [place] [phone] Kathleen Lacy CNM Assigned OBGYN Provider 06/01/20 11/23/21 [address] [place] [address] documented as of this encounter
--- OUTSIDE RECORDS SUMMARY | 2022-07-02 11:11 | XMS_ITS | Encounter Summary ---
:1990 Author Organization [place] Address [facility] [place] [address] Care Team Providers Name Role Phone Blank Lemos MD Primary Care Provider Blank Lemos MD Unavailable Hardeep Cárdenas Unavailable Unavailable Encounter Details Date Type Department Care Team Description 12/20/2019 Virtual Visit [facility] Nevin Gilman ed anxiety disorder (Primary Dx); Mental Health & [facility] Moderate episode of recurrent major depr essive disorder (H) Addiction [place] [address] [address] [place] [address] (Work) [phone] Social History Tobacco Use Types Packs/Day Years [...] Gilman, ANTONIO - 12/20/2019 2:00 PM CDT [facility] Primary Care: Integrated Behavioral Health Garment Form Assembler Name: Bessy Gilman Credentials: [facility], [facility] PATIENT'S NAME: Rena Turner PREFERRED NAME: Rena PREFERRED PRONOUNS: : 1990 ACCT. NUMBER: [id number] DATE OF SERVICE: 12/20/19 START TIME: 2:00pm END TIME: 2:41pm PREFERRED PHONE: [phone] May we leave a program related message: [...] services. Mode of Communication: Video Conference via [employer] As the provider I attest to compliance [...] History: Patient reported they grew up in [place], [place] and moved to [place] 7 years ago. They were raised by [...] Patient identified their preferred language to be Omani. Patient reported they does not need the assistance of an transmitter operator or other support involved in therapy. Patient [...] symptoms were todevelop. The patient has a [place] Primary Care Provider, who is named Blank [...] not present. Safety Assessment: Current Safety Concerns: [place] Suicide Severity Rating Scale (Lifetime/Recent) [place] Suicide Severity Rating (Lifetime/Recent) 12/21/2019 12/21/2019 1. [...] is not confined to features of an Copl[place] I disorder. E. The anxiety, worry, or [...] increase in mood stability. 4. Resources/Service Plan: Account Installer services are not indicated. Modifications to assist [...] type: Mental Health Staff Name/Credentials: ANTONIO Menjivar, [facility] December 20, 2019 documented in this encounter Plan of Treatment Not on filedocumented as of this encounter Visit Diagnoses Diagnosis Generalized anxiety disorder - Primary Moderate episode of recurrent major depr essive disorder (H) documented in this encounter Additional Health Concerns Assessment Noted Time PHQ-9 Depression Total Score: 15 12/08/2019 10:02 AM C DT documented as of this encounter Care Teams Pearl Maker Relationship Specialty Start Date End Date Blank Lemos, PCP - General Internal Medicine [facility]22[facility] [place] [phone] Blank Lemos, Assigned PCP 04/25/18 [facility] [place] [phone] Hardeep Cárdenas Personal Advocate & 06/17/1901/30 Liaison (PAL) documented as of this encounter
--- OUTSIDE RECORDS SUMMARY | 2022-07-02 11:11 | XMS_ITS | Encounter Summary ---
:1990 Author Organization [place] Address [address] [place] [address] Care Team Providers Name Role Phone Blank [...] documented as of this encounter Care Teams Csw Relationship Specialty Start Date End Date Blank Lemos MD PCP - General Internal Medicine 04/22/[address] [place] [address] [place] [phone] Blank Lemos MD Assigned PCP 04/25/[address] [place] [address] [place] [phone] documented as of this encounter
--- OUTSIDE RECORDS SUMMARY | 2022-07-02 11:11 | XMS_ITS | Encounter Summary ---
:1990 Author Organization [place] Address [facility] [place] [address] Care Team Providers Name Role Phone Blank Lemos MD Primary Care Provider Blank Lemos MD Unavailable Reason for Visit Diagnostic Imaging Ultrasound (Routine) - Closed Specialty Diagnoses / Procedures Referred By Contact Refer red To Contact Diagnoses Bleeding in early Faiza Reyes CNM Procedures US OB <14 Weeks w Transvaginal Single US OB < 14 Weeks Single [address] [place] [place] [address] Referral ID Status Reason Start Date Expiration Date Visits Requ ested Visits Authorized [id number] Closed 02/01/2020 01/31/2021 1 1 Encounter Details Date Type Department Care Team Description 02/20/2020 Orders Only [facility] Ble eding in early [place] [address] [facility] [address] [place] [address] Social History Tobacco Use [...] but clinical correlation is s uggested. Dr. Lroa Ward MD Obstetrics and Gynecology [facility] ? Kely and Dev ?? Narrative 02/22/2020 7:31 PM CDT 02/20/2020 11:40 AM ? [facility] Obstetrics & Gynecology [address] [place] [address] ULTRASOUND - OB < 14 Weeks ?? [...] documented as of this encounter Care Teams Candlemaker Relationship Specialty Start Date End Date Blank Lemos MD PCP - General Internal Medicine 04/22/[address] [place] [address] [place] [phone] Blank Lemos MD Assigned PCP 04/25/18 [address] [facility] [place] [phone] documented as of this encounter
--- OUTSIDE RECORDS SUMMARY | 2022-07-02 11:11 | XMS_ITS | Encounter Summary ---
:1990 Author Organization [place] Address [address] [place] [address] Care Team Providers Name Role Phone Blank [...] as of this encounter Care Teams Medical Diagnostic Radiographer Relationship Specialty Start Date End Date Blank Lemos MD PCP - General Internal Medicine 04/22/[address] [place] [address] [place] [phone] Blank Lemos MD Assigned PCP 04/25/[address] [place] [address] [place] [phone] documented as of this encounter
--- OUTSIDE RECORDS SUMMARY | 2022-07-02 11:11 | XMS_ITS | Encounter Summary ---
:1990 Author Organization [place] Address [address] [place] [address] Care Team Providers Name Role Phone Blank Lemos MD Primary Care Provider Blank Lemos MD Unavailable Encounter Details Date Type Department Care Team Description 02/03/2020 Orders Only [facility] Clinic Ble eding in early [place] [facility] [address] [place] [address] Social History Tobacco Use Types [...] (ABNORMAL) HCG quantitative (02/03/2020 10:56 AM CDT) [facility] Method Time Signature HCG Quantitative 13,231 0 - 5 02/04/2020 [place] Serum (H) IU/L 12:58 PM CDT [facility] Specimen Anatomical Collection Method Collection Time Receive d Time (Source) Location / / Volume Laterality Blood specimen 02/03/2020 10:56 0 (specimen) AM CDT 10:57 AM CDT Faiza Reyes CNM LAB - BLOOD ORDERABLES Performing Organization Address City/State/ZIP Code Phon e Number [facility] [address] [place] [address] documented in this encounter Visit Diagnoses Diagnosis Bleeding in early Unspecified hemorrhage in early pregnanc y, unspecified as to episode of care documented in this encounter Additional Health Concerns Assessment Noted Time PHQ-9 Depression Total Score: 10 02/02/2020 8:23 AM CD T documented as of this encounter Care Teams Sport Shoe Spike Assembler Relationship Specialty Start Date End Date Blank Lemos MD PCP - General Internal Medicine 04/22/[address] [place] [address] [place] [address] Blank Lemos MD Assigned PCP 04/25/[address] [place] [address] [place] [phone] documented as of this encounter
--- OUTSIDE RECORDS SUMMARY | 2022-07-02 11:11 | XMS_ITS | Encounter Summary ---
:1990 Author Organization [place] Address [address] [place] [address] Care Team Providers Name Role Phone Blank [...] of this encounter Care Teams Director Of Distribution Relationship Specialty Start Date End Date Blank Lemos MD PCP - General Internal Medicine 04/22/[address] [place] [address] [place] [phone] Blank Lemos MD Assigned PCP 04/25/[address] [place] [address] [place] [phone] documented as of this encounter
--- OUTSIDE RECORDS SUMMARY | 2022-07-02 11:11 | XMS_ITS | Encounter Summary ---
:1990 Author Organization [place] Address [facility] [place] [address] Care Team Providers Name Role Phone Blank Lemos MD Primary Care Provider Blank Lemos MD Unavailable Reason for Visit Reason Onset Date Comments Depression 02/02/2020 Anxiety 02/02/2020 Encounter Details Date Type Department Care Team Description 02/02/2020 Virtual Visit [facility] Blank Lemos Migraine without aura and without status migrainosus, not intractable (Primary Dx); Clinic Dev Camp MD Moderate episode of recurrent major depr essive disorder (H); [address] [place] [address] Health system alized anxiety disorder; [facility] DR Bipolar I disorder (H) [address] [place] [address] [place] [id number] Social History Tobacco Use Types Packs/Day Years [...] good luck! Blank Lemos MD Internal Medicine/Pediatrics [facility] documented in this encounter [...] her first . Took a break from [facility] for therapy, due to lost insurance, but not has insurance again and will contact [facility] to restart. Social History Tobacco Use [...] well-groomed. Diagnostic Test Results: Labs reviewed in [facility] Assessment & Plan 1. Migraine without aura [...] good luck! Blank Lemos MD Internal Medicine/Pediatrics [facility] Return for appointment already scheduled with OB. Blank Lemos MD [facility] Video-Visit Details Type of service: Video Visit Video End Time:8:42am Originating Location (pt. Location): Home Distant Location (provider location): [facility] Platform used for Video Visit: [facility] Return for appointment already scheduled with OB. [...] documented as of this encounter Care Teams Eye Surgeon Relationship Specialty Start Date End Date Blank Lemos MD PCP - General Internal Medicine 04/22/[address] [place] [address] [place] [phone] Blank Lemos MD Assigned PCP 04/25/[address] [place] [address] [place] [address] documented as of this encounter
--- OUTSIDE RECORDS SUMMARY | 2022-07-02 11:11 | XMS_ITS | Encounter Summary ---
:1990 Author Organization [place] Address [facility] [place] [address] Care Team Providers Name Role Phone Blank Lemos MD Primary Care Provider Blank Lemos MD Unavailable Hardeep Cárdenas Unavailable Unavailable Encounter Details Date Type Department Care Team Description 01/04/2020 Telephone [facility] Blank Oliveros MD [place] [address] [facility] [address] [facility] [place] [address] [address] [place] [address] [phone] Social History Tobacco Use Types Packs/Day Years [...] documented as of this encounter Care Teams Mixer Operator Vacuum Pan Salt Relationship Specialty Start Date End Date Blank Lemos, PCP - General Internal Medicine 04/22/18 MD [facility] [place] [phone] Blank Lemos, Assigned PCP 04/25/18 [facility] [place] [address] Hardeep Cárdenas Personal Advocate & 06/17/1901/30 Liaison (PAL) documented as of this encounter
--- OUTSIDE RECORDS SUMMARY | 2022-07-02 11:11 | XMS_ITS | Encounter Summary ---
:1990 Author Organization [place] Address [address] [place] [address] Care Team Providers Name Role Phone Blank [...] documented as of this encounter Care Teams Manganese Breaker Relationship Specialty Start Date End Date Blank Lemos MD PCP - General Internal Medicine 04/22/[address] [place] [address] [place] [phone] Blank Lemos MD Assigned PCP 04/25/[address] [place] [address] [place] [address] documented as of this encounter
--- OUTSIDE RECORDS SUMMARY | 2022-07-02 11:11 | XMS_ITS | Encounter Summary ---
:1990 Author Organization [place] Address [facility] [place] [address] Care Team Providers Name Role Phone Blank Lemos MD Primary Care Provider Blank Lemos MD Unavailable Reason for Visit Reason Comments Medication Refill Encounter Details Date Type Department Care Team Description 03/02/2020 Refill [facility] Blank Oliveros MD Medication Refill Dev [address] [facility] [address] [facility] [place] [address] [address] [place] [address] [phone] Social History Tobacco Use Types Packs/Day Years [...] with OB. Blank Lemos MD Internal Medicine/Pediatrics [facility] Telephone Encounter - Margarita Lowry RN [...] documented as of this encounter Care Teams Fuse Assembler Relationship Specialty Start Date End Date Blank Lemos MD PCP - General Internal Medicine 04/22/[address] [place] [address] [place] [address] Blank Lemos MD Assigned PCP 04/25/[address] [place] [address] [place] [phone] documented as of this encounter
--- OUTSIDE RECORDS SUMMARY | 2022-07-02 11:11 | XMS_ITS | Encounter Summary ---
:1990 Author Organization [place] Address [facility] [place] [address] Care Team Providers Name Role Phone Blank Lemos MD Primary Care Provider Blank Lemos MD Unavailable Hardeep Cárdenas Unavailable Unavailable Encounter Details Date Type Department Care Team Description 12/13/2019 Virtual Visit [facility] Nevin Gilman ed anxiety Mental Health & MAGGI DohertySW disorder (Primary Dx) Addiction [facility] [address] [facility] [address] [place] [address] [address] [place] [address] (Work) [phone] Social History Tobacco Use Types Packs/Day Years [...] Gilman LICSW - 12/13/2019 2:00 PM CDT [facility] Primary Care: Integrated Behavioral Health December [...] I will have full access to your [place] medical record during this entire phone call. [...] been obtained for this service by care steaming machine operator: yes. Behavioral Health Clinician Progress Note Patient Name: Rena Turner Service Type: Phone Visit Service Location: Phone call (patient / identified alcantara support person reached) Session Start Time: 2:05pm Session End Time: 2:30pm Session Length: 16 - 37 Attendees: Client Visit Activities (Refresh list every visit): [facility] Only Diagnostic Assessment Date: Next Session [...] minutes): No Interactive Complexity: No Crisis: No [facility] Patient: No Treatment Objective(s) Addressed in [...] PTSD Symptom Management Current Stressors / Issues: [facility] introduced self and role to patient. [...] date to begin behavior change Motivational Interviewing [place] Intervention: Expressed Empathy/Understanding, Supported Autonomy, Collaboration, Evocation, [...] time, however patient was encouraged to call [place] [phone] should there be a change in any [...] a follow up appointment with the clinic [facility] as needed. She was also given information about mental health symptoms andtreatment options . CD Recommendations: No indications of CD issues. DA [facility] ANTONIO Menjivar, [facility] documented in this encounter Plan of Treatment Not on filedocumented as of this encounter Visit Diagnoses Diagnosis Generalized anxiety disorder - Primary documented in this encounter Additional Health Concerns Assessment Noted Time PHQ-9 Depression Total Score: 15 12/08/2019 10:02 AM C DT documented as of this encounter Care Teams Prepress Stripper Relationship Specialty Start Date End Date Blank Lemos, PCP - General Internal Medicine [facility]/22/[facility] [place] [address] Blank Lemos, Assigned PCP 04/25/18 [facility] [place] [address] Hardeep Cárdenas Personal Advocate & 06/17/1901/30 Liaison (PAL) documented as of this encounter
--- OUTSIDE RECORDS SUMMARY | 2022-07-02 11:11 | XMS_ITS | Encounter Summary ---
:1990 Author Organization [place] Address [facility] [place] [address] Care Team Providers Name Role Phone Blank Lemos MD Primary Care Provider Blank Lemos MD Unavailable Hardeep Cárdenas Unavailable Unavailable Encounter Details Date Type Department Care Team Description 01/19/2020 Virtual Visit [facility] Nevin Gilman ed anxiety disorder (Primary Dx); Mental Health & [facility] Moderate episode of recurrent major depr essive disorder (H) Addiction [place] [address] [address] [place] [address] (Work) [phone] Social History Tobacco Use Types Packs/Day Years [...] back out via calling the clinic or [employer] to schedule again when able. ANTONIO Menjivar, [...] as of this encounter Care Teams Car Wiper Relationship Specialty Start Date End Date Blank Lemos, PCP - General Internal Medicine 04/22/[address] [place] [address] [place] [phone] Blank Lemos, Assigned PCP 04/25/18 [facility] [place] [address] Hardeep Cárdenas Personal Advocate & 06/17/1901/30 Liaison (PAL) documented as of this encounter
--- OUTSIDE RECORDS SUMMARY | 2022-07-02 11:11 | XMS_ITS | Encounter Summary ---
:1990 Author Organization [place] Address [facility] [place] [address] Care Team Providers Name Role Phone Blank Lemos MD Primary Care Provider Blank Lemos MD Unavailable Hardeep Cárdenas Unavailable Unavailable Encounter Details Date Type Department Care Team Description 12/08/2019 Telephone [facility] LukeAshly, Health & Addiction [facility] [address] [place] [address] [address] [place] [address] Social [...] 12/08/2019 10:48 AM CDT Phone Encounter [facility] attempted to reach patient, by PCP request. [...] documented as of this encounter Care Teams Vat House Laborer Relationship Specialty Start Date End Date Blank Lemos, PCP - General Internal Medicine 04/22/18 [facility] [place] [address] Blank Lemos, Assigned PCP 04/25/18 [facility] [place] [address] Hardeep Cárdenas Personal Advocate & 06/17/1901/30 Liaison (PAL) documented as of this encounter
--- OUTSIDE RECORDS SUMMARY | 2022-07-02 11:11 | XMS_ITS | Encounter Summary ---
:1990 Author Organization [place] Address [facility] [place] [address] Care Team Providers Name Role Phone Blank Lemos MD Primary Care Provider Blank Lemos MD Unavailable Hardeep Cárdenas Unavailable Unavailable Encounter Details Date Type Department Care Team Description 01/05/2020 Virtual Visit [facility] Blank Lemos anxiety disorder (Primary Dx); Clinic Dev Camp MD Insomnia, unspecified type [address] [place] [address] [facility] [address] [place] [address] [place] [address] Social History Tobacco Use [...] weeks. Take Blank hodge MD Internal Medicine/Pediatrics [facility] documented in this encounter Progress [...] I will have full access to your [place] medical record during this entire phone call. [...] been obtained for this service by care horses or mules teamster: Yes HPI Medication Followup of ej ?? [...] per week (better than none). Working with [employer]. Has left house a few times - today went to [employer] for the first time - big step. [...] 9 min Blank Lemos MD Internal Medicine/Pediatrics [facility] Sosa Whitehead - 01/05/2020 2:55 PM CDT Left message for patient to call back to schedule video appt 02/01. Sosa Whitehead, [employer] documented in this encounter Plan of Treatment Not on filedocumented as of this encounter Visit Diagnoses Diagnosis Generalized anxiety disorder - Primary Insomnia, unspecified type documented in this encounter Additional Health Concerns Assessment Noted Time PHQ-9 Depression Total Score: 15 12/08/2019 10:02 AM C DT documented as of this encounter Care Teams Solar Electric/Photovoltaic Installer Relationship Specialty Start Date End Date Blank Lemos, PCP - General Internal Medicine 04/22/18 [facility] [place] [phone] Blank Lemos, Assigned PCP 04/25/18 [facility] [place] [address] Hardeep Cárdenas Personal Advocate & 06/17/1901/30 Liaison (PAL) documented as of this encounter
--- OUTSIDE RECORDS SUMMARY | 2022-07-02 11:11 | XMS_ITS | Encounter Summary ---
:1990 Author Organization [place] Address [address] [place] [address] Care Team Providers Name Role Phone Blank [...] as of this encounter Care Teams Security Strategist Relationship Specialty Start Date End Date Blank Lemos MD PCP - General Internal Medicine 04/22/[address] [place] [address] [place] [phone] Blank Lemos MD Assigned PCP 04/25/[address] [place] [address] [place] [phone] documented as of this encounter
--- OUTSIDE RECORDS SUMMARY | 2022-07-02 11:11 | XMS_ITS | Encounter Summary ---
:1990 Author Organization [place] Address [address] [place] [address] Care Team Providers Name Role Phone Blank Lemos MD Primary Care Provider Blank Lemos MD Unavailable Reason for Visit Reason Comments Care New Nurse Telephone Visit Encounter Details Date Type Department Care Team Description 02/07/2020 Office [facility] er for Visit Clinic Dev supervision of normal [address] [place] first preg manny in [facility] [address] first trimester [address] (Primary Dx) [...] If you answered Yes, is this for jehovah's witness reasons?: No Does anyone in your home [...] you have any allergies to drugs or lecr-mnm-iyspnxm medications?: (!) Yes(doxycycline) Allergies: Dust Mites, Aspartame, [...] or bleed: (!) Yes(nausea, fatigue, breast tenderness, sealer aircraft mping, spotting) Current medications, including hfvo-qfw-mgpkjyi medications, you are using? (If not applicable answer none): see med list. weaning off of topamax Will the patient be 35 years old or older at the time of delivery?: No Has the patient, baby's father or anyone in either family had: Thalassemia (Romansh, Cook Islander, Mediterranean or background only) and an MCV result less than 80?: (P) No Neural tube defect such as meningomyelocele, spina bifida or anencephaly?: (P) No Congenital heart defect?: (P) No Down's Syndrome?: (P) No Wilber-Sachs disease (Mormon, Cajun, Telugu-Talcott)?: (P) No Sickle cell disease or trait [...] type and screen (02/20/2020 9:09 AM CDT) [facility] Method Time Signature ABO O 02/20/2020 [place] 5:05 PM [facility] RH(D) Pos [facility] Antibody Neg 02/20/2020 [place] Screen 5:05 PM [facility] Test Valid [place] 02/20/2020 [place] Only At [facility] 5:02 PM T [facility] HOSPITAL Specimen 02/23/2020 02/20/2020 [place] Expires 5:02 PM [facility] Specimen Anatomical Collection Method Collection Time Receive d Time (Source) Location / / Volume Laterality Blood specimen 02/20/2020 9:09 AM 020 9:10 (specimen) CDT AM CDT Faiza Reyes CNM LAB - BLOOD BANK TEST ORDER Performing Organization Address City/State/ZIP Code Phon e Number [facility] [address] [place], [place] [address] [facility] [address] [place], [place] [address] [place] [address] Urine Culture Aerobic Bacterial (02/20/2020 9:08 AM CDT) Patholo gist Method Time Signature Specimen Midstream INFECTIOUS Description Urine DISEASES DIAGNOSTIC LABORATORY Culture Micro <10,000 colonies/mL 02/21/2020 [place] mixed urogenital andre 1:24 PM CDT [facility] DIAGNOSTIC LABORATORY Specimen (Source) Anatomical Collection Method Collection Time Re ceived Time Location / / Volume Laterality Examination of 02/20/2020 9:08 02/20/2020 9:13 midstream urine AM CDT AM CDT specimen (procedure) Faiza Reyes CNM LAB - MICRO GENERAL ORDERABL ES Performing Organization Address City/[facility]/ZIP Code Phon e Number INFECTIOUS DISEASES [address] [place] [address] DIAGNOSTIC LABORATORY, [facility] INFECTIOUS DISEASES [address] [place] [address], A DIAGNOSTIC LABORATORY Treponema Abs w Reflex to RPR and Titer (02/20/2020 9:08 AM CDT) [facility] Method Time Signature Treponema Nonreactive NR^Nonrea 02/21/2020 [facility] ctive 9:37 AM CDT [facility] Comment: Methodology Change: Test performed on DiaSorin Liaison XL by Treponema pallidum Total Antibodies Assay as of . Specimen Anatomical Collection Method Collection Time Receive d Time (Source) Location / / Volume Laterality Blood specimen 02/20/2020 9:08 AM 020 9:13 (specimen) CDT AM CDT Faiza Reyes CNM LAB - BLOOD ORDERABLES Performing Organization Address City/[facility]/ZIP Code Phon e Number [facility] [address] [place] [address] [facility] Rubella Antibody IgG Quantitative (02/20/2020 9:08 AM CDT) [facility] Signature Rubella Antibody 20 IU/mL 02/21/2020 [place] IgG Quantitative 11:12 AM CDT [facility] Comment: Positive. ??Suggests previous exposure o r immunization and probable immunity Reference Range: ??Unvaccinated Negative 0-7 IU/mL Vaccinated or previous exposure Positive 10 IU/ml or greater Specimen Anatomical Collection Method Collection Time Receive d Time (Source) Location / / Volume Laterality Blood specimen 02/20/2020 9:08 AM 020 9:13 (specimen) CDT AM CDT Faiza FARMER LAB - BLOOD ORDERABLES Performing Organization Address City/[facility]/ZIP Code Phon e Number [address] HIV Antigen Antibody Combo (02/20/2020 9:08 AM CDT) [facility] Method Time Signature HIV Antigen Nonreactive NR^Nonrea 02/21/2020 [place] Antibody ctive 9:57 AM CDT [facility] Comment: HIV-1 p24 Ag & HIV-1/HIV-2 Ab N ot Detected Specimen Anatomical Collection Method Collection Time Receive d Time (Source) Location / / Volume Laterality Blood specimen 02/20/2020 9:08 AM 020 9:13 (specimen) CDT AM CDT Faiza FARMER LAB - BLOOD ORDERABLES Performing Organization Address City/[facility]/ZIP Code Phon e Number [address] (ABNORMAL) CBC with platelets (02/20/2020 9:08 AM CDT) [facility] Method Time Signature WBC 11.3 (H) [...] HOSPITAL MCV 95 78 - 100 02/20/2020 [place] 10:39 AM CDT [facility] MCH 30.7 26.5 - 02/20/2020 [place] 33.0 pg 10:39 AM CDT [facility] MCHC 32.5 31.5 - 02/20/2020 [place] 36.5 g/dL 10:39 AM CDT [facility] RDW 13.4 10.0 - 02/20/2020 [place] 15.0 % 10:39 AM CDT [facility] Platelet Count 350 150 - 450 02/20/2020 [place] 10e9/L 10:39 AM CDT [facility] Specimen Anatomical Collection Method Collection Time Receive d Time (Source) Location / / Volume Laterality Blood specimen 02/20/2020 9:08 AM 020 9:13 (specimen) CDT AM CDT Faiza Reyes CNM LAB - BLOOD ORDERABLES Performing Organization Address City/[facility]/ZIP Code Phon e Number [facility] [address] [place], [place] [address] [address] Hepatitis B surface antigen (02/20/2020 9:08 AM CDT) [facility] gist Method Time Signature Hep B Surface Nonreactive NR^Nonrea 02/21/2020 [facility] 9:57 AM CDT [facility] Specimen Anatomical Collection Method Collection Time Receive d Time (Source) Location / / Volume Laterality Blood specimen 02/20/2020 9:08 AM 020 9:13 (specimen) CDT AM CDT Faiza Reyes CNM LAB - BLOOD ORDERABLES Performing Organization Address City/State/ZIP Code Phon e Number [facility] [address] [place] [address] [facility] documented in this encounter Visit Diagnoses Diagnosis Encounter for supervision of normal firs t in first trimester - Primary Supervision of normal first documented in this encounter Additional Health Concerns Assessment Noted Time PHQ-9 Depression Total Score: 10 02/02/2020 8:23 AM CD T documented as of this encounter Care Teams Lawn Care Worker Relationship Specialty Start Date End Date Blank Lemos MD PCP - General Internal Medicine 04/22/[address] [place] [address] [address] [place] [phone] Blank Lemos MD Assigned PCP 04/25/[address] [place] [address] K[place] RENO [id number] documented as of this encounter
--- OUTSIDE RECORDS SUMMARY | 2022-07-02 11:11 | XMS_ITS | Encounter Summary ---
:1990 Author Organization [place] Address [facility] [place] [address] Care Team Providers Name Role Phone Blank Lemos MD Primary Care Provider Blank Lemos MD Unavailable Encounter Details Date Type Department Care Team Description 02/20/2020 [facility] Only [facility] linda for supervision [facility] y of normal first [address] [place] in [place] [address] Social History Tobacco Use Types Packs/Day [...] type and screen (02/20/2020 9:09 AM CDT) [facility] Method Time Signature ABO O 02/20/2020 [place] 5:05 PM T [facility] RH(D) Pos [facility] Antibody Neg 02/20/2020 [place] Screen 5:05 PM T [facility] Test Valid [place] 02/20/2020 [place] Only At [facility] 5:02 PM CDT [facility] Specimen 02/23/2020 02/20/2020 [facility] Expires 5:02 PM T [facility] Specimen Anatomical Collection Method Collection Time Receive d Time (Source) Location / / Volume Laterality Blood specimen 02/20/2020 9:09 AM 020 9:10 (specimen) CDT AM CDT Faiza FARMER LAB - BLOOD BANK TEST ORDER Performing Organization Address City/[facility]/ZIP Code Phon e Number [facility] [address] [place], [place] [address] [facility] [address] [place], [place] [address] [place] [address] Hepatitis B surface antigen (02/20/2020 9:08 AM CDT) [facility] Method Time Signature Hep B Surface Nonreactive NR^Nonrea 02/21/2020 [facility] 9:57 AM CDT [facility] Specimen Anatomical Collection Method Collection Time Receive d Time (Source) Location / / Volume Laterality Blood specimen 02/20/2020 9:08 AM 020 9:13 (specimen) CDT AM CDT Faiza FARMER LAB - BLOOD ORDERABLES Performing Organization Address City/State/ZIP Code Phon e Number [id number] [place] [address] (ABNORMAL) CBC with platelets (02/20/2020 9:08 AM CDT) [facility] Method Time Signature WBC 11.3 (H) 4.0 - 11.0 02/20/2020 [facility] 10e9/L 10:39 AM CDT [facility] RBC Count 4.20 3.8 - 5.2 02/20/2020 [facility] 10e12/L 10:39 AM CDT [facility] Hemoglobin 12.9 11.7 - 02/20/2020 [facility] 15.7 g/dL 10:39 AM CDT [facility] Hematocrit 39.7 35.0 - 02/20/2020 [facility] 47.0 % 10:39 AM CDT [facility] MCV 95 78 - 100 02/20/2020 [facility] fl 10:39 AM CDT [facility] MCH 30.7 26.5 - 02/20/2020 [facility] 33.0 pg 10:39 AM CDT [facility] MCHC 32.5 31.5 - 02/20/2020 [place] 36.5 g/dL 10:39 AM CDT [facility] RDW 13.4 10.0 - 02/20/2020 [place] 15.0 % 10:39 AM CDT [facility] Platelet Count 350 150 - 450 02/20/2020 [place] 10e9/L 10:39 AM CDT [facility] Specimen Anatomical Collection Method Collection Time Receive d Time (Source) Location / / Volume Laterality Blood specimen 02/20/2020 9:08 AM 020 9:13 (specimen) CDT AM CDT Faiza Reyes CNM LAB - BLOOD ORDERABLES Performing Organization Address City/State/ZIP Code Phon e Number [facility] [address] [place], [place] [address] [address] HIV Antigen Antibody Combo (02/20/2020 9:08 AM CDT) Patholo gist Method Time Signature HIV Antigen Nonreactive NR^Nonrea 02/21/2020 [facility] Antibody ctive 9:57 AM CDT [facility] Comment: HIV-1 p24 Ag & HIV-1/HIV-2 Ab N ot Detected Specimen Anatomical Collection Method Collection Time Receive d Time (Source) Location / / Volume Laterality Blood specimen 02/20/2020 9:08 AM 020 9:13 (specimen) CDT AM CDT Faiza Reyes CNM LAB - BLOOD ORDERABLES Performing Organization Address City/State/ZIP Code Phon e Number [facility] [address] [place] [address] [facility] Rubella Antibody IgG Quantitative (02/20/2020 9:08 AM CDT) Analysis Performed At Patho logist Time Signature Rubella Antibody 20 IU/mL 02/21/2020 [place] [facility] IgG Quantitative 11:12 AM CDT [facility] Comment: Positive. ??Suggests previous exposure o r [...] [facility] [place]/ZIP Code Phon e Number [address] [address] [facility] Treponema Abs w Reflex to RPR and Titer (02/20/2020 9:08 AM CDT) [facility] Method Time Signature Treponema Nonreactive NR^Nonrea 02/21/[address] [facility] ctive 9:37 AM CDT [facility] Comment: Methodology Change: Test performed on e DiaSorin Liaison XL by Treponema pallidum Total Antibodies Assay as of . Specimen Anatomical Collection Method Collection Time Receive d Time (Source) Location / / Volume Laterality Blood specimen 02/20/2020 9:08 AM 020 9:13 (specimen) CDT AM CDT Faiza FARMER LAB - BLOOD ORDERABLES Performing Organization Address City/[facility]/ZIP Code Phon e Number [address] [address] [facility] Urine Culture Aerobic Bacterial (02/20/2020 9:08 AM CDT) [facility] Method Time Signature Specimen Midstream INFECTIOUS [...] MICRO GENERAL ORDERABL ES Performing Organization Address City/[facility]/ZIP Code Phon e Number INFECTIOUS DISEASES [address] [place] [address] DIAGNOSTIC LABORATORY, [facility] INFECTIOUS DISEASES [address] [place] [address], [place] DIAG[facility]STIC LAB[facility]ATORY documented in this encounter Visit Diagnoses Diagnosis Encounter for supervision of normal firs t in first trimester Supervision of normal first documented in this encounter Additional Health Concerns Assessment Noted Time PHQ-9 Depression Total Score: 10 02/02/2020 8:23 AM CD T documented as of this encounter Care Teams Sane Rn Relationship Specialty Start Date End Date Blank Lemos MD PCP - General Internal Medicine 04/22/18 [address] [facility] KISHAN RENO [phone] Blank Lemos MD Assigned PCP 04/25/18 [address] [facility] KISHAN RENO [phone] documented as of this encounter
--- OUTSIDE RECORDS SUMMARY | 2022-07-02 11:11 | XMS_ITS | Encounter Summary ---
:1990 Author Organization [place] Address [address] [place] [address] Care Team Providers Name Role Phone Blank [...] as of this encounter Care Teams Laborer Car Barn Relationship Specialty Start Date End Date Blank Lemos, PCP - General Internal Medicine 04/22/[address] [place] [address] [place] [phone] Blank Lemos, Assigned PCP 04/25/18 [facility] [place] [phone] Hardeep Cárdenas Personal Advocate & 06/17/1901/30 Liaison (PAL) documented as of this encounter
--- OUTSIDE RECORDS SUMMARY | 2022-07-02 11:11 | XMS_ITS | Encounter Summary ---
:1990 Author Organization [place] Address [address] [place] [address] Care Team Providers Name Role Phone Blank Lemos MD Primary Care Provider Blank Lemos MD Unavailable Encounter Details Date Type Department Care Team Description 02/01/2020 Orders Only [facility] Ble eding in early [facility] [address] [place] [address] Social History Tobacco Use Types [...] Quantitative 8,783 (H) 0 - 5 02/02/2020 [place] Serum IU/L 10:02 AM CDT [facility] Specimen Anatomical Collection Method Collection Time Receive d Time (Source) Location / / Volume Laterality Blood specimen 02/01/2020 11:02 0 (specimen) AM CDT 11:04 AM CDT Faiza Reyes CNM LAB - BLOOD ORDERABLES Performing Organization Address City/State/ZIP Code Phon e Number [facility] [address] [place] [address] Progesterone (02/01/2020 11:02 AM CDT) P athologist Signature Progesterone 12.2 ng/mL 02/01/2020 [facility] 6:04 PM CDT [facility] Comment: Progesterone Reference Range Female Non ?Follicular [...] Phon e Number [facility] [address] [place], [place] [phone] [place] [address] documented in this encounter Visit Diagnoses Diagnosis Bleeding in early Unspecified hemorrhage in early pregnanc y, unspecified as to episode of care documented in this encounter Additional Health Concerns Assessment Noted Time PHQ-9 Depression Total Score: 15 12/08/2019 10:02 AM C DT documented as of this encounter Care Teams Claims Director Relationship Specialty Start Date End Date Blank Lemos MD PCP - General Internal Medicine 04/22/[address] [place] [address] [place] [phone] Blank Lemos MD Assigned PCP 04/25/[address] [place] [address] K[place] R[place] [phone] documented as of this encounter
--- OUTSIDE RECORDS SUMMARY | 2022-07-02 11:11 | XMS_ITS | Encounter Summary ---
:1990 Author Organization [place] Address [address] [place] [address] Care Team Providers Name Role Phone Blank [...] documented as of this encounter Care Teams Performance Reporter Relationship Specialty Start Date End Date Blank Lemos MD PCP - General Internal Medicine 04/22/[address] [place] [address] KISHAN RENO [phone] Blank Lemos MD Assigned PCP 04/25/[address] [place] [address] K[place] RENO [phone] documented as of this encounter
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
--- OUTSIDE RECORDS SUMMARY | 2022-07-02 11:11 | XMS_ITS | Encounter Summary ---
:1990 Author Organization [place] Address [facility] [place] [address] Care Team Providers Name Role Phone Blank Lemos MD Primary Care Provider Blank Lemos MD Unavailable Hardeep Cárdenas Unavailable Unavailable Reason for Referral Mental Health Outpatient (Routine) - Closed Specialty Diagnoses / Procedures Referred By Contact Refer red To Contact Diagnoses Generalized anxiety disorder Bipolar I disorder (H) Blank Lemos MD [address] [place] [address] [place] [id number] Referral ID Status Reason Start Date Expiration Date Visits Requ ested Visits Authorized [id number] Closed 12/08/2019 12/07/2020 1 1 Scheduling Instructions ken please - patient with severe social anxiety - unable to leave house. Reason for Visit Reason Onset Date Comments Telephone 12/08/2019 Anxiety 12/08/2019 Encounter Details Date Type Department Care Team Description 12/08/2019 Virtual Visit [facility] Blank Lemos Insomnia , unspecified type (Primary Dx); Clinic Dev Camp MD Generalized anxiety disorder; [address] [place] [address] Bipol ar I disorder (H); [facility] Migraine without aura and without status migrainosus, not intractable [address] [place] [address] [place] [address] Social History Tobacco Use [...] to help with sleep. Someone from [facility] will be reaching out to you soon. Letter should be available in [email or web address]. I will have someone reach out to you to get a video visit scheduled in about a month. Take care! Blank Lemos MD Internal Medicine/Pediatrics [facility] documented in this encounter Progress Notes [...] for this service by 1 care steam table worker: yes. See the scanned image in the medical record. Rena Turner complains of Chief Complaint Patient presents with ? Anxiety I have reviewed and updated the patient's Past Medical History, Social History, Family History and Medication List. 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 I was just called back to work to start next week. Since COVID-19 has begun my anxiety has skyrocketed being in public. I think this is something that may pass in the future, but I was wondering if I could get a Drs note from you to stay home for the time being, and possibly a referral to the behavioral clinic in [place] (if they are open right now). I [...] Therapy/Health Psychology; [facility]: [facility] ; We will contact you to schedule the appointment or please call with any questions (F31.9) Bipolar I disorder (H) Comment: see above Plan: escitalopram (LEXAPRO) 20 MG tablet, MENTAL HEALTH REFERRAL - Adult; Outpatient Treatment; Individual/Couples/Family/Group Therapy/Health Psychology; [facility]: [facility] ; We will contact you [...] Name Type Priority Associated Diagnoses Order [facility] REFERRAL - Referral Routine Generalized anxi ety Ordered: 12/08/2019 Adult; Outpatient disorder Treatment; Bipolar I disorder (H) Individual/Couples/Famil y/Group Therapy/Health Psychology; [facility]: [facility] ; We will contact you [...] documented as of this encounter Care Teams Surveillance Systems Analyst Relationship Specialty Start Date End Date Blank Lemos, PCP - General Internal Medicine 04/22/[address] [place] [address] [place] [phone] Blank Lemos, Assigned PCP 04/25/18 [facility] [place] [address] Hardeep Cárdenas Personal Advocate & 06/17/1901/30 Liaison (PAL) documented as of this encounter
--- OUTSIDE RECORDS SUMMARY | 2022-07-02 11:11 | XMS_ITS | Encounter Summary ---
:1990 Author Organization [place] Address [address] [facility] [place] [address] Care Team Providers Name Role Phone Blank Lemos MD Primary Care Provider Blank Lemos MD Unavailable Reason for Referral Diagnostic Imaging Ultrasound (Routine) - Closed Specialty Diagnoses / Procedures Referred By Contact Refer red To Contact Diagnoses care in first trimester Mayra Cooper CNM Procedures US OB > [address] [place], [place] [address] Referral ID Status Reason Start Date Expiration Date Visits Requ ested Visits Authorized [id number] Closed 03/27/2020 03/27/2021 1 1 Reason for Visit Reason Comments Care 13w 5d, still having some he adaches, nausea is better Encounter Details Date Type Department Care Team Description [facility] YARELI Kendall first trimester [place] [address] (Primary Dx) [address] [place], [place] [address] [address] [place], [place] [phone] [address] (Work) [phone] Social History Tobacco Use Types Packs/Day Years [...] Body Mass Index 39.33 07/15/2019 2:56 PM SAUSAGE WRAPPER documented in this encounter Progress Notes Mayra Cooper CNM - 03/27/2020 9:30 AM CDT Feeling well. Baby is active. Denies any leaking of fluid, vaginal bleeding, regular uterine contractions, or headaches or other concerns. Discussed anatomy US. Ordered for 5-6 weeks. Can do the CNM appt the same day or virtually. Reviewed to call [phone] for contractions, loss of fluid, vaginal bleeding, decreased movement or any other questions or concerns. RTC in 4 weeks. Mayra Cooper DNP, UNDERWATER ROBOTICIST, MARLENYM documented in this encounter Nursing Notes [...] Laterality Volume Narrative 05/01/2020 11:40 AM CDT [facility] Obstetrics and Gynecology ?? ULTRASOUND - OB [...] fluid assessment is: Normal. Recommend referral to [facility] for targeted u ltrasound to evaluate anatomy not well seen on this exam. anomalies may be present but not d etected. Dina Germain MD Obstetrics and Gynecology [facility] ? Mayra Kendall [facility] US ORDERABLES documented in this encounter Visit Diagnoses Diagnosis care in first trimester - Prima ry care in first trimester documented in this encounter Additional Health Concerns Assessment Noted Time PHQ-9 Depression Total Score: 10 02/02/2020 8:23 AM CD T documented as of this encounter Care Teams Mailing Machine Assistant Relationship Specialty Start Date End Date Blank Lemos MD PCP - General Internal Medicine 04/22/18 [address] [facility] [place] [phone] Blank Lemos MD Assigned PCP 04/25/18 [address] [facility] K[place]AN RENO [phone] documented as of this encounter
--- OUTSIDE RECORDS SUMMARY | 2022-07-02 11:11 | XMS_ITS | Encounter Summary ---
:1990 Author Organization [place] Address [facility] [place] [address] Care Team Providers Name Role Phone Blank Lemos MD Primary Care Provider Blank Lemos MD Unavailable Reason for Visit Reason Comments Care 9w 1d, c/o nausea and vomite d for first time last night Encounter Details Date Type Department Care Team Description 02/24/2020 Office [facility] Faiza Reyes for supervision of normal first in first trimester (Primary Dx); Visit [facility] YARELI Rodriguez BMI 45.0-49.9, adult (H); [place] [id number] [place] [address] Pap smear for cervical cance r screening [address] [facility], [facility] [address] [place] [id number] [place] [address] [phone] [address] (Work) [phone] Social History Tobacco Use Types Packs/Day Years [...] Body Mass Index 38.26 07/15/2019 2:56 PM ORDER SCHEDULE CLERK documented in this encounter Patient Instructions Patient InstructionsFaiza Reyes CNM - 02/24/2020 9:00 AM CDT Thank you for coming to see the Midwives at the [facility] ?? We will notify you about your labs that were drawn today once we get the results back or if you have Bridesidehart they will be posted there as well [...] next visit, you can reach the nurse personal banking representative stonemason supervisor by calling our pager number [phone]. ?? If you wish to schedule another appointment, please call our office at [phone]. You can alsomake appointments through [employer] ?? If you have a medical emergency please call 911. Because you are , we have additional resources for you: ?? You may call our consulting RN's during normal business hours for non-urgent questions about yourpregnancy. ?? After hours you may also page the personal banking representative stonemason supervisor for urgent questions or issues at [phone].There is always a personal banking representative stonemason supervisor 24 hours a day. Reminders: Before 14 [...] Secure access to your medical record: Use Let's Jockt (secure email communication and access to your chart) to send your primary care providera message or make an appointment. Ask someone on your Team how to sign up for OneTouchEMR. To log on to [employer] or for more information in OneTouchEMR please visit the website at [email or web address]. Certified Nurse Commercial Litigation Attorney (CNM) Team Faiza Reyes APRN, YARELI Rendon APRN, YARELI Ingram APRN, YARELI Jones APRN, YARELI Again, thank you for choosing the midwives at [facility]. We are excited to be a [...] PAP: 2019 History of abnormal Pap? Yes: [facility] Health maintenance updated: yes Current [...] file Gets together: Not on file Attends mosque service: Not on file Active member of club or organization: Not on file Attends meetings of clubs or organizations: Not on file Relationship status: Not on file ??? Intimate partner violence Fear of current or ex partner: Not on file Emotionally abused: Not on file Physically abused: Not on file Forced sexual activity: Not on file Other Topics Concern ??? Parent/sibling w/ CABG, DE or angioplasty before 65F 55M? 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 Smokes 3 cigs per day down [...] found, no interventions. Pt thinks this happened [phone] ??? TONSILLECTOMY FAMILY HISTORY Family History Problem [...] tenderness or inflammation. Perineum without lesions. VAGINA: [place], normal rugae and discharge. CERVIX: Anterior, smooth, [...] of triage nurse line and contacting the stonemason supervisor CNM after hours in an emergency. ?? Symptoms of N&V and fatigue usually start to resolve around 12-16 weeks ?? Reviewed CNM philosophy, call schedule for labor and delivery, and [facility] for delivery ?? 1st OB handout [...] desire a RN home visit from the psychiatric hospital? No If yes, paperwork completed? No [...] Signature TSH 2.05 0.40 - 4.00 02/25/2020 [facility] mU/L 12:[address] [facility] Specimen Anatomical Collection Method Collection Time Receive d Time (Source) Location / / Volume Laterality Blood specimen 02/24/2020 9:47 AM 020 9:52 (specimen) CDT AM CDT Faiza Reyes CNM LAB - BLOOD ORDERABLES Performing Organization Address City/State/ZIP Code Phon e Number [facility] [place] [address] [place] [address] Hemoglobin A1c (02/24/2020 9:47 AM CDT) athologist Signature Hemoglobin A1C 5.2 0 - 5.6 % 02/24/2020 [place] 2:13 PM CDT [facility] Comment: Normal <5.7% Prediabetes 5.7-6.4% ??Diab etes 6.5% or higher - adopted from ADA consensus guidelines. Specimen Anatomical Collection Method Collection Time Receive d Time (Source) Location / / Volume Laterality Blood specimen 02/24/2020 9:47 AM 020 9:52 (specimen) CDT AM CDT Faiza Reyes [facility] LAB - BLOOD ORDERABLES Performing Organization Address City/State/ZIP Code Phon e Number [facility] [address] [place], [place] [address] [address] (ABNORMAL) Pap imaged thin layer screen with HPV - recommended age 30 - 65 years (select HPV order below) (02/24/2020 9:35 AM CDT) Component Value Ref Test Analysis Performed At [facility] Range Method Time Signature PAP ASC-US (A) COPATH Copath Report COPATH Patient Name: RENA RESENDIZ MR#: [id number] Specimen #: [id number] Collected: 02/24/2020 Received: 02/27/2020 Reported: 02/29/2020 16:35 [...] s. COLLECTION SITE: Client: ??[facility] Location: RIOB (R) The technical component of this testing was completed at the [facility], with the professional compo nent performed at the [facility], [address], [place], [place] [phone] ([phone]) Specimen (Source) Anatomical Collection Method Collection Time Re ceived Time Location / / Volume Laterality Cytologic 02/24/2020 9:35 02/27/2020 7 :32 material AM CDT AM CDT (specimen) Faiza [facility] - OPTIME CLINICAL SPECIM EN Performing Organization Address City/State/ZIP Code Phon e Number COPATH (ABNORMAL) HPV High Risk Types DNA Cervical (02/24/2020 9:30 AM CDT) [facility] gist Method Time Signature HPV Source SurePath 02/24/2020 [place] 9:35 AM CDT [facility] HPV 16 DNA Negative NEG^Negat 03/05/2020 [facility] yakelin 6:46 AM CDT [facility] HPV 18 DNA Negative NEG^Negat 03/05/2020 [facility] yakelin 6:46 AM CDT [facility] Other HR HPV Positive (A) NEG^Negat 03/05/2020 [facility] yakelin 6:46 AM CDT [facility] Final This patient's sample is pos itive for other HR HPV DNA (types 31, 33, 35, 39, 45, 51, 52, 03/05/2020 [facility] 56, 58, 59, 66 or 68), not H PV 16 or HPV 18 DNA. This result requires clinical correlation 6:46 AM CDT [facility] with concurrent cytology findings. [facility] Comment: This test was developed and its performa nce characteristics determined by the [facility], Molecular Diagnostics Laboratory. It has [...] Cervical Cells 02/24/2020 9:3 5 AM CDT [facility] Comment: [id number] Specimen Anatomical Collection Method Collection Time Receive d Time (Source) Location / / Volume Laterality Cervical Cells CERVIX UTERI 02/24/2020 9:30 AM 020 3:22 STRUCTURE / CDT PM CDT Unknown Faiza Reyes CNM LAB - BLOOD ORDERABLES Performing Organization Address City/[facility]/ZIP Code Phon e Number [address] [address] [place] [address] [place] [address] [address] CHLAMYDIA TRACHOMATIS PCR (02/24/2020 9:30 AM CDT) [facility] Method Time Signature Specimen Vagina 02/24/2020 [place] Description 2:41 PM CDT [facility] Chlamydia Negative NEG^Negat 02/26/2020 INFECTIOUS Trachomatis PCR yakelin 2:30 PM CDT [facility] Comment: Negative for C. trachomatis rRNA by hoffman scription mediated amplification. A negative result by medical claims manager media logan amplification does not preclude the [...] Code Phon e Number INFECTIOUS DISEASES [address] [place] [address] DIAGNOSTIC LABORATORY, [facility] [address] [place] [address] [facility] 180 INFECTIOUS DISEASES [address] [place] [address], A DIAGNOSTIC LABORATORY NEISSERIA GONORRHOEA PCR (02/24/2020 9:30 AM CDT) Analysis Performed At Patho logist Time Signature Specimen Vagina 02/24/2020 [place] Descrip 2:41 PM CDT [facility] N Gonorrhea Negative NEG^Negati 02/26/2020 INFECTIOUS PCR ve 2:30 PM CDT [facility] Comment: Negative for N. gonorrhoeae rRNA by hoffman scription mediated amplification. A negative result by medical claims manager media logan amplification does not preclude the [...] Code Phon e Number INFECTIOUS DISEASES [address] [place] [address] DIAGNOSTIC LABORATORY, [facility] [address] [place] [address] [facility] 180 INFECTIOUS DISEASES [address] [place] [address], A DIAGNOSTIC LABORATORY documented in this encounter [...] as of this encounter Care Teams Dry Cleaning Machine Operator Relationship Specialty Start Date End Date Blank Lemos MD PCP - General Internal Medicine 04/22/[address] [place] [address] [place] [address] Blank Lemos MD Assigned PCP 04/25/18 [address] [facility] [address] [place], [place] [address] documented as of this encounter
--- OUTSIDE RECORDS SUMMARY | 2022-07-02 11:11 | XMS_ITS | Encounter Summary ---
:1988 Author Organization [place] Address [facility] [place] [address] Care Team Providers Name Role Phone Blank Lemos MD Primary Care Provider Blank Lemos MD Unavailable Hardeep Cárdenas Unavailable Unavailable Reason for Visit Reason Comments Medication Refill escitalopram (LEXAPRO) 20 MG tablet Encounter Details Date Type Department Care Team Description 10/28/2019 Refill [facility] Blank Lemos, [place] dication Refill Clinic Dev CARVAL[place] (escitalopram (LEXAPRO) [address] [facility] 20 MG tablet ) [facility] [address] [place] [address] [place] [address] [phone] Social History Tobacco Use Types Packs/Day Years [...] AM) Adult physical with Blank [facility]os MD [facility] [address] [place] [address] [address] [facility] [address] documented in this encounter Plan of Treatment Not on filedocumented as of this encounter Visit Diagnoses Diagnosis Generalized anxiety disorder Bipolar I disorder (H) Bipolar I disorder, most recent episode (or current) unspecified documented in this encounter Additional Health Concerns Assessment Noted Time PHQ-9 Depression Total Score: 4 09/22/2018 3:08 PM TAFE REGISTRAR documented as of this encounter Care Teams Tafe Registrar Relationship Specialty Start Date End Date Blank Lemos, PCP - General Internal Medicine 04/22/[address] [place] [address] [place] [address] Blank Lemos, Assigned PCP 04/25/[address] [place] [address] [address] [place] [address] Hardeep Cárdenas Personal Advocate & 06/17/1901/30 Liaison (PAL) documented as of this encounter
--- OUTSIDE RECORDS SUMMARY | 2022-07-02 11:11 | XMS_ITS | Encounter Summary ---
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 Mode of Communication: Video Conference via Capt'nSocial As the provider I attest to compliance with applicable laws and regulations related to telemedicine. Behavioral Health Clinician Progress Note Patient Name: Rena Turner Service Type: Individual Session Start Time: 2:05pm Session End Time: 2:30pm Session Length: 16 - 37 Attendees: Client Visit Activities (Refresh list every visit): [facility] Only Diagnostic Assessment Date: 12/20/2019 Treatment Plan [...] minutes): No Interactive Complexity: No Crisis: No [facility] Patient: No Treatment Objective(s) Addressed in [...] to experience panic when thinking about it. [facility] and patient spent session processing through patient's anxieties and what steps patient can take in order to feel more control over her anxiety. [facility] encouraged patient to try utilizing strategies daily [...] date to begin behavior change Motivational Interviewing [place] Intervention: Expressed Empathy/Understanding, Supported Autonomy, Collaboration, Evocation, [...] time, however patient was encouraged to call [place] [address] should there be a change in any [...] follow up appointment with the clinic [facility] as needed. She was also given information about mental health symptoms andtreatment options . CD Recommendations: No indications of CD issues. Treatment plan to be completed at next session. 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
--- OUTSIDE RECORDS SUMMARY | 2022-07-02 11:11 | XMS_ITS | Encounter Summary ---
:1990 Author Organization [place] Address [facility] [place] [address] Care Team Providers Name Role Phone Blank Lemos MD Primary Care Provider Blank Lemos MD Unavailable Reason for Visit Reason Onset Date Comments Results 02/08/2020 Encounter Details Date Type Department Care Team Description 02/08/2020 Telephone [facility] Ryann poon, Faiza Rodriguez, YARELI Results Clinic [place] [address] [place] [address] [facility] [address] [place] [address] [phone] Social History Tobacco Use Types Packs/Day Years [...] documented as of this encounter Care Teams Gear Grinder Relationship Specialty Start Date End Date Blank Lemos MD PCP - General Internal Medicine 04/22/[address] [place] [address] [place] [address] Blank Lemos MD Assigned PCP 04/25/[address] [place] [address] [place] [id number] documented as of this encounter
--- OUTSIDE RECORDS SUMMARY | 2022-07-02 11:12 | XMS_ITS | Encounter Summary ---
:1990 Author Organization [place] Address [address] [facility] [place] [address] Care Team Providers Name Role Phone Blank Lemos MD Primary Care Provider Blank Lemos MD Unavailable Hardeep Cárdenas Unavailable Unavailable Reason for Visit Reason Comments Urgent Care Ear Problem Ear pain in both ears for 2 months. Patient finished antibiotic and it is still not better. Encounter Details Date Type Department Care Team Description 07/26/2019 Office Visit [facility] [place], Middle ear effusion, Urgent Care Dev Wiggins, KAILEE bilateral (Primary Dx) [address] [place] [address] [address] [address] [place] [address] Social History Tobacco Use [...] Comments Blood Pressure 104/72 07/26/2019 5:23 PM SASH MAKER Pulse 56 07/26/2019 5:23 PM SASH MAKER Temperature 36.9 ??C (98.5 ??F) 07/26/2019 5:23 PM SASH MAKER Respiratory Rate - - Oxygen Saturation 98% 07/26/2019 5:23 PM SASH MAKER Inhaled Oxygen Concentration - - Weight - [...] on yoursymptoms.?? Date Last Reviewed: 05/10/2016 ?? [phone] [employer]. [address] [place] [address], [place] [address]. All rights reserved. This information is not intended as a substitute for professional medical care. Always follow your healthcare professional's instructions. MAKER documented in this encounter Progress Notes Rosalie [...] primary care provider. See orders in Epic MAKER documented in this encounter Nursing Notes Gerogie Kim CMA - 07/26/2019 4:25 PM CST Chief Complaint Patient presents with ??? Urgent Care ??? Ear Problem Ear pain in both ears for 2 months. Patient finished antibiotic and it is still not better. S NIA KIM MAKER documented in this encounter Plan of Treatment Not on filedocumented as of this encounter Visit Diagnoses Diagnosis Middle ear effusion, bilateral - Primary documented in this encounter Additional Health Concerns Assessment Noted Time PHQ-9 Depression Total Score: 4 09/22/2018 3:08 PM SASH MAKER documented as of this encounter Care Teams Supervisor [employer] Relationship Specialty Start Date End Date Blank Lemos, PCP - General Internal Medicine 04/22/[address] [place] [address] [address] [place], [place] [id number] Blank Lemso, Assigned PCP 04/25/18 [facility] [place] [address] Hardeep Cárdenas Personal Advocate & 06/17/1901/30 Liaison (PAL) documented as of this encounter
--- OUTSIDE RECORDS SUMMARY | 2022-07-02 11:12 | XMS_ITS | Encounter Summary ---
:1990 Author Organization [place] Address [address] [facility] [address] Care Team Providers Name Role Phone Blank Lemos MD Primary Care Provider Blank Lemos MD Unavailable Blank Lemos MD Unavailable Reason for Visit Reason Comments Urgent Care Urinary Problem possible uti; dysuria at end of urination. Was treated x 1 month ago Pharyngitis neck, throat, and ear pain Encounter Details Date Type Department Care Team Description 04/29/2018 Office Visit [facility] Phillip Crowder Dysuria (Primary Dx); Urgent Care Dev Bob PA-C Throat pain [address] [place] [address] [place], [place] [address] [address] [place] [address] Social History Tobacco Use Types Packs/Day [...] the groin Date Last Reviewed: 08/10/2016 ?? [id number] [employer]. [address] [place] [address]. All rights reserved. This information is not [...] NEG^Negative Ketones Urine Negative NEG^Negative mg/dL Specific Gardner Urine 1.010 1.003 - 1.035 Blood Urine [...] Component Value Ref Test Analysis Performed At Enjoi Range Method Time Signature Specimen Midstream Urine [...] Code Phon e Number INFECTIOUS DISEASES [address] [place] [address] DIAGNOSTIC LABORATORY, [facility] INFECTIOUS DISEASE [address] [place] [address], [facility] DIAGNOSTIC LABORATORY Wet prep (04/29/2018 5:22 PM CDT) Enjoi Method Time Signature Specimen Vagina [facility] Description [...] MICRO GENERAL ORDERA BLES Performing Organization Address [facility] Phon e Number [facility] [address] [place] [address] [phone] Beta strep group A culture (04/29/2018 4:22 PM CDT) Component Value Ref Test Analysis Performed At Patholo gist Range Method Time Signature Specimen Throat [facility] DEV Culture Micro No beta 04/30/2018 [facility] hemolytic 6:00 PM CDT CLINICS Streptococcus DEV Group A isolated Specimen Anatomical Collection Method Collection Time Receive d Time (Source) Location / / Volume Laterality Specimen from 04/29/2018 4:22 PM 04/29/20 18 4:24 throat CDT PM CDT (specimen) Phillip Crowder PA-C LAB - MICRO GENERAL ORDERA BLESerena Performing Organization Address [facility]/ZIP Code Phon e Number [facility] [address] [place] [phone] Strep, Rapid Screen (04/29/2018 4:05 PM CDT) Component Value Ref Test Analysis [facility]formed [facility] gist Range Method Time Signature Specimen Throat [facility] DEV Rapid Strep A NEGATIVE: No 04/29/2018 [facility] Screen Group A 4:23 PM CDT CLINICS streptococcal DEV antigen detected by immunoassay, await culture report. Specimen Anatomical Collection Method Collection Time Receive d Time (Source) Location / / Volume Laterality Specimen from 04/29/2018 4:05 PM 04/29/20 18 4:07 throat CDT PM CDT (specimen) Phillip Crowder PA-C LAB - MICRO GENERAL ORDERA BLESerena Performing Organization Address City/[facility]/ZIP Code Phon e Number [facility] [address] [place] [phone] Urine Microscopic (04/29/2018 3:45 PM [...] LAB - URINE ORDERABLES Performing Organization Address City/[facility]/ZIP Code Phon e Number [address] [address] [phone] (ABNORMAL) UA reflex to Microscopic and Culture (04/29/2018 3:45 PM CDT) Patholo gist Method Time Signature Color Urine Yellow 04/29/2018 [facility] 4:35 PM CDT CLINICS DEV Appearance Urine Clear 04/29/2018 [facility] 4:35 PM CDT CLINICS DEV Glucose Urine Negative NEG^Negat 04/29/2018 [facility] yakelin mg/dL 4:35 PM CDT CLINICS DEV Bilirubin Urine Negative NEG^Negat 04/29/2018 [facility] yakelin 4:35 PM CDT CLINICS DEV Ketones Urine Negative NEG^Negat 04/29/2018 [facility] yakelin mg/dL 4:35 PM CDT CLINICS DEV Specific [place] 1.010 1.003 - 04/29/2018 [facility] Urine 1.035 4:35 PM CDT CLINICS DEV Blood Urine Negative NEG^Negat 04/29/2018 [facility] yakelin 4:35 PM CDT CLINICS DEV pH Urine 6.5 5.0 - 7.0 04/29/2018 [facility] pH 4:35 PM CDT CLINICS DEV Protein Albumin Negative NEG^Negat 04/29/2018 [facility] Urine yakelin mg/dL 4:35 PM CDT CLINICS DEV Urobilinogen 0.2 0.2 - 1.0 04/29/2018 [facility] Urine EU/dL 4:35 PM CDT CLINICS DEV Nitrite Urine Negative NEG^Negat 04/29/2018 [facility] yakelin 4:35 PM CDT CLINICS DEV Leukocyte Trace (A) NEG^Negat 04/29/2018 [facility] Esterase Urine yakelin 4:35 PM CDT CLINICS DEV Source Midstream 04/29/2018 [facility] Urine 3:47 PM CDT CLINICS DEV Specimen (Source) Anatomical Collection Method Collection Time Re ceived Time Location / / Volume Laterality Examination of 04/29/2018 3:45 04/29/2018 3:47 midstream urine PM CDT PM CDT specimen (procedure) Phillip Crowder PA-C LAB - URINE ORDERABLES Performing Organization Address City/State/[facility] Code Phon e Number [facility] DEV [address] [facility] [place] [phone] documented in this encounter Visit Diagnoses Diagnosis Dysuria - Primary Throat pain documented in this encounter Additional Health Concerns Assessment Noted Time PHQ-9 Depression Total Score: 7 02/07/2018 7:00 AM CDT documented as of this encounter Care Teams Central Office Installer Relationship Specialty Start Date End Date Blank Lemos MD PCP - General Internal Medicine 04/22/[address] [place] [address] [place] [phone] Blank Lemos MD PCP - Assigned PCP 04/25/18 10/12/[address] [place] [address] [place] [phone] Blank Lemos MD Assigned PCP 04/25/[address] [place] [address] [place] [phone] documented as of this encounter
--- OUTSIDE RECORDS SUMMARY | 2022-07-02 11:12 | XMS_ITS | Encounter Summary ---
:1990 Author Organization [place] Address [address] [place] [address] Care Team Providers Name Role Phone Blank [...] Depression Total Score: 4 09/22/2018 3:08 PM DOUBLE BACKER documented as of this encounter Care Teams Sheep Killer Relationship Specialty Start Date End Date Blank Lemos, PCP - General Internal Medicine [facility]/22/18 [facility] [address] [place], [place] [address] Blank Lemos, Assigned PCP 04/25/18 MD Zarate [facility] [place] [address] Hardeep Cárdenas Personal Advocate & 06/17/1901/30 Liaison (PAL) documented as of this encounter
--- OUTSIDE RECORDS SUMMARY | 2022-07-02 11:12 | XMS_ITS | Encounter Summary ---
:1990 Author Organization [place] Address [address] [place] [address] Care Team Providers Name Role Phone Blank Lemos MD Primary Care Provider Reason for Visit Reason Comments Forms UTI Encounter Details Date Type Department Care Team Description 04/22/2018 Office Visit [facility] Blank Lemos Dysuria ( Primary Dx); Clinic Dev Camp MD Acute cystitis without hematuria; [address] [place] [address] [facility] Other migraine without status migrainosus, not intractable [address] [facility] [address] [place] [address] [place] [address] Social History Tobacco Use [...] winter for physical/PAP. Blank Lemos MD [facility] DEV documented in this encounter Plan of [...] CDT CLINICS DEV Squamous Few FEW^Few 04/22/2018 [place] Epithelial /LPF /LPF 9:01 AM CDT CLINICS [place] N Urine Bacteria Urine Few (A) NEG^Negati 04/22/2018 [place] ve /HPF 9:01 AM CDT CLINICS DEV Specimen Anatomical Collection Method Collection Time Receive d Time (Source) Location / / Volume Laterality 04/22/2018 8:53 AM 8 8:55 CDT AM CDT Blank Lemos MD LAB - URINE ORDERABLES Performing Organization Address City/State/ZIP Code Phon e Number [facility] DEV [address] [place] [address] (ABNORMAL) UA reflex to Microscopic and Culture (04/22/2018 8:53 AM CDT) Patholo gist Method Time Signature Color Urine Yellow 04/22/2018 [place] 9:01 AM CDT CLINICS DEV Appearance Urine Clear 04/22/2018 [place] 9:01 AM CDT CLINICS DEV Glucose Urine Negative NEG^Negat 04/22/2018 [place] yakelin mg/dL 9:01 AM CDT CLINICS DEV Bilirubin Urine Negative NEG^Negat 04/22/2018 [place]elin 9:01 AM CDT CLINICS DEV Ketones Urine Negative NEG^Negat 04/22/2018 [place] yakelin mg/dL 9:01 AM CDT CLINICS DEV Specific [place] 1.020 1.003 - 04/22/2018 [place] Urine 1.035 9:01 AM CDT CLINICS DEV Blood Urine Moderate (A) NEG^Negat 04/22/2018 [place]elin 9:01 AM CDT CLINICS DEV pH Urine 7.0 5.0 - 7.0 04/22/2018 [place] pH 9:01 AM CDT CLINICS DEV Protein Albumin Negative NEG^Negat 04/22/2018 [place] Urine yakelin mg/dL 9:01 AM CDT CLINICS DEV Urobilinogen 0.2 0.2 - 1.0 04/22/2018 [place] Urine EU/dL 9:01 AM CDT CLINICS DEV Nitrite Urine Negative NEG^Negat 04/22/2018 [place]akelin 9:01 AM CDT CLINICS DEV Leukocyte Trace (A) NEG^Negat 04/22/2018 [place] Esterase Urine yakelin 9:01 AM CDT CLINICS DEV Source Midstream 04/22/2018 [place] Urine 8:55 AM CDT CLINICS DEV Specimen (Source) Anatomical Collection Method Collection Time Re ceived Time Location / / Volume Laterality Examination of 04/22/2018 8:53 04/22/2018 8:55 midstream urine AM CDT AM CDT specimen (procedure) Blank Lemos MD LAB - URINE ORDERABLES Performing Organization Address City/State/ZIP Code Phon e Number [facility] DEV [address] [facility] [place] [address] documented in this encounter Visit Diagnoses Diagnosis Dysuria - Primary Acute cystitis without hematuria Acute cystitis Other migraine without status migrainosu s, not intractable documented in this encounter Additional Health Concerns Assessment Noted Time PHQ-9 Depression Total Score: 7 02/07/2018 7:00 AM CDT documented as of this encounter Care Teams Hoop Bender Tank Relationship Specialty Start Date End Date Blank Lemos MD PCP - General Internal Medicine 04/22/[address] [place] [address] [place] [phone] documented as of this encounter
--- OUTSIDE RECORDS SUMMARY | 2022-07-02 11:12 | XMS_ITS | Encounter Summary ---
:1988 Author Organization [place] Address [address] [place] [address] Care Team Providers Name Role Phone Blank [...] Depression Total Score: 4 09/22/2018 3:08 PM OIL PROCESSING TECHNICIAN documented as of this encounter Care Teams Duralumin Mechanic Relationship Specialty Start Date End Date Blank Lemos MD PCP - General Internal Medicine 04/22/[address] [place] [address] [place] [phone] Blank Lemos MD PCP - Assigned PCP 04/25/18 10/12/[address] [place] [address] [place] [address] Blank Lemos MD Assigned PCP 04/25/[address] [place] [address] [place] R[place] [phone] documented as of this encounter
--- OUTSIDE RECORDS SUMMARY | 2022-07-02 11:12 | XMS_ITS | Encounter Summary ---
:1990 Author Organization [place] Address [facility] [place] [address] Care Team Providers Name Role Phone Blank Lemos MD Primary Care Provider Blank Lemos MD Unavailable Hardeep Cárdenas Unavailable Unavailable Reason for Visit Reason Comments Medication Refill Encounter Details Date Type Department Care Team Description 09/11/2019 Refill [facility] Blank Oliveros MD Medication Refill Dev [address] [facility] 3305 [facility] [place] [address] [address] [place] [address] [phone] Social History Tobacco Use Types Packs/Day Years [...] ALEJANDRO MA on 09/12/2019 at 5:38 PM ING CAREGIVER Telephone Encounter - Blank Lemos MD - 09/12/2019 3:12 PM CST Refilled x 3 months. Needs yearly appt before any additional refills after this. Please help her schedule physical plus within the next 3 months. Blank Lemos MD Internal Medicine/Pediatrics [facility] ING CAREGIVER Telephone Encounter - Tia Floyd RN - [...] No positive test in last 12 months ING CAREGIVER documented in this encounter Plan of Treatment Not on filedocumented as of this encounter Visit Diagnoses Diagnosis Migraine without aura and without status migrainosus, not intractable Migraine without aura, without mention o f intractable migraine without mention of status migrainosus documented in this encounter Additional Health Concerns Assessment Noted Time PHQ-9 Depression Total Score: 4 09/22/2018 3:08 PM MORNING CAREGIVER documented as of this encounter Care Teams Land Economist Relationship Specialty Start Date End Date Blank Lemos, PCP - General Internal Medicine 04/22/18 [facility] [place] [phone] Blank Lemos, Assigned PCP 04/25/18 MD Zarate [facility] [place] [phone] Hardeep Cárdenas Personal Advocate & 06/17/1901/30 Liaison (PAL) documented as of this encounter
--- OUTSIDE RECORDS SUMMARY | 2022-07-02 11:12 | XMS_ITS | Encounter Summary ---
:1988 Author Organization [place] Address [facility] [place] [address] Care Team Providers Name Role Phone Lalita Perez MD Primary Care Provider Reason for Visit Reason Comments Anxiety Depression Encounter Details Date Type Department Care Team Description 08/17/2017 Office Visit [facility] Lily Encarnacion anxiety disorder; Clinic Dev Reyes MD Bipolar I disorder (H); [address] [facility] Migraine without aura and without status migrainosus, not intractable [facility] [address] [place] [address] [address] [phone] [place], [place] [address] Social History Tobacco Use Types Packs/Day [...] Comments Blood Pressure 100/64 08/17/2017 4:47 PM NETWORKING ADMINISTRATOR Pulse 86 08/17/2017 4:47 PM NETWORKING ADMINISTRATOR Temperature 36.9 ??C (98.4 ??F) 08/17/2017 4:47 PM NETWORKING ADMINISTRATOR Respiratory Rate - - Oxygen Saturation 99% 08/17/2017 4:47 PM NETWORKING ADMINISTRATOR Inhaled Oxygen Concentration - - Weight 73.3 kg (161 lb 11.2 oz) 08/17/2017 4:47 PM NETWORKING ADMINISTRATOR Height 161.3 cm (5' 3.5) 08/17/2017 4:47 PM NETWORKING ADMINISTRATOR Body Mass Index 28.19 08/17/2017 4:47 PM NETWORKING ADMINISTRATOR documented in this encounter Patient Instructions Patient InstructionsSerumLily MD - 08/17/2017 4:40 PM NETWORKING ADMINISTRATOR 1. Refilled lexapro for 6 months - can complete depression screen over the phone or mychart in 6 months if doing well and refill 2. If not improving, would refer to Psychiatric Nurse practitioner in [place] to discuss other options 3. Refilled topamax 4. Follow-up in 1 year ORKING ADMINISTRATOR documented in this encounter Progress Notes Lily [...] referred to psychiatry but did not go. [place] had good response to Lexapro and feels [...] 04/10/2016 08/17/2017 Total Score 11 13 PHQ-9 Icelandic PHQ-9 Any Language GAD7 Suicide Assessment Five-step [...] sooner if not controlled Lily Encarnacion [facility] DEV ORKING ADMINISTRATOR documented in this encounter Nursing Notes Saira [...] kg). Medication Reconciliation: complete Saira Singh LPN ORKING ADMINISTRATOR documented in this encounter Plan of Treatment [...] as of this encounter Care Teams Oil Field Rig Builder Relationship Specialty Start Date End Date Lalita Perez MD PCP - General Student in [facility] 10/21/1404/21 care education/training program documented as of this encounter
--- OUTSIDE RECORDS SUMMARY | 2022-07-02 11:12 | XMS_ITS | Encounter Summary ---
:1990 Author Organization [place] Address [facility] [place] [address] Care Team Providers Name Role Phone Blank Lemos MD Primary Care Provider Blank Lemos MD Unavailable Blank Lemos MD Unavailable Hardeep Cárdenas Unavailable Unavailable Kathleen Lacy CNM Unavailable Anabell Shannon Unavailable Unavailable Rand Kam APRN CNM Unavailable [phone] Sharita Frias MD Unavailable Kathleen Lacy CNM Unavailable Kathleen Lacy CNM Unavailable Sharita Frias MD Unavailable Encounter Details Date Type Department Care Team Description 08/09/2018 Telephone [facility] Blank Oliveros MD [place] [address] [facility] 3305 [facility] [place] [address] [address] [place] [address] [phone] Social History Tobacco Use Types Packs/Day Years [...] documented as of this encounter Care Teams Laboratory Director Relationship Specialty Start Date End Date Blank Lemos, PCP - General Internal Medicine 04/22/[address] [place] [address] [place] R[place] [phone] Blank Lemos, PCP - Assigned PCP 04/25/[address] [place] [address] [place] R[place] [phone] Blank Lemos, Assigned PCP 04/25/[address] [place] [address] [place] [address] Hardeep Cárdenas Personal Advocate & 06/17/1901/30 Liaison (PAL) Kathleen Lacy CNM Assigned OBGYN Provider 06/01/20 11/23/21 [address] [place], [place] [address] Anabell Shannon Personal Advocate & 3/18/21 Liaison (PAL) Rand Kam, Assigned OBGYN Provider 11/24/21 12/28/21 SHIFT NURSE MANAGER CNM [address] [place], [place] [phone] Sharita Frias, Assigned OBGYN Provider 01/04/22 01/17/22 [address] [place], [place] [phone] Kathleen Lacy CNM Assigned OBGYN Provider 12/29/21 01/03/22 [address] [place], [place] [address] Kathleen Lacy CNM Assigned OBGYN Provider 01/18/22 01/24/22 [address] [place] [address] Sharita Frias, Assigned OBGYN Provider 01/25/22 05/09/22 [address] [place], [place] [phone] documented as of this encounter
--- OUTSIDE RECORDS SUMMARY | 2022-07-02 11:12 | XMS_ITS | Encounter Summary ---
:1990 Author Organization [place] Address [facility] [place] [address] Care Team Providers Name Role Phone Blank Lemos MD Primary Care Provider Blank Lemos MD Unavailable Reason for Visit Reason Comments Medication Refill escitalopram (LEXAPRO) 20 MG tablet Encounter Details Date Type Department Care Team Description 04/29/2019 Refill [facility] Blank Lemos, [place] dication Refill Clinic Dev [place] (escitalopram (LEXAPRO) [address] [place] 3305 [facility] 20 MG tablet) [facility] [place] [address] [place] [address] [place] [address] [phone] Social History Tobacco Use Types Packs/Day Years [...] 05/02/2019 9:03 AM CDT Prescription approved per [facility] Refill Protocol. Brigido [...] Depression Total Score: 4 09/22/2018 3:08 PM SPOOL SALVAGER documented as of this encounter Care Teams Crusher Foreman Relationship Specialty Start Date End Date Blank Lemos MD PCP - General Internal Medicine 04/22/[address] [place] [address] DR [place], KISHAN [phone] Blank Lemos MD Assigned PCP 04/25/[address] [place] [address] K[place] RENO [phone] documented as of this encounter
--- OUTSIDE RECORDS SUMMARY | 2022-07-02 11:12 | XMS_ITS | Encounter Summary ---
:1988 Author Organization [place] Address [facility] [place] [address] Care Team Providers Name Role Phone Blank Lemos MD Primary Care Provider Blank Lemos MD Unavailable Blank Lemos MD Unavailable Reason for Visit Reason Onset Date Comments Pharyngitis 04/27/2018 Encounter Details Date Type Department Care Team Description 04/27/2018 Telephone [facility] Blank Oliveros MD Pharyngitis [place] [address] [facility] [address] [facility] [place] [place] [address] [address] [place] [address] [phone] Social History Tobacco Use Types Packs/Day Years [...] PCP - General Internal Medicine 04/22/[address] [place] [address] [place] [address] Blank Lemos MD PCP - Assigned PCP 04/25/18 10/12/[address] [place] [address] [place] [address] Blank Lemos MD Assigned PCP 04/25/[address] [place] [address] [place] R[place] [phone] documented as of this encounter
--- OUTSIDE RECORDS SUMMARY | 2022-07-02 11:12 | XMS_ITS | Encounter Summary ---
:1988 Author Organization [place] Address [facility] [place] [address] Care Team Providers Name Role Phone Lalita Perez MD Primary Care Provider Reason for Visit Reason Onset Date Comments Appointment 04/01/2018 scheduled for 04/08 at 2.20 pm Encounter Details Date Type Department Care Team Description 04/01/[address] [facility] Blank Lemos nt (scheduled Clinic Dev Camp MD for 04/08 at [address]305 [place] 3305 [facility] 2.20 pm) [facility] [address] [place] [address] [place] [address] [phone] Social History Tobacco Use Types Packs/Day Years [...] PM CDT SHORT with Blank Lemos MD [facility] ([facility] [address] [place] [address] [address] [facility] [address] Kristie Kapadia RN Message handled by Nurse Triage. Telephone Encounter - Blank Lemos MD - 04/05/2018 9:05 PM CDT Could see her 220pm on . Blank Lemos MD Internal Medicine/Pediatrics [facility] Telephone Encounter - Monique Leslie - [...] PM 04/05/2018 Telephone Encounter - Ana Maria Dainels MA - 04/02/2018 12:22 PM CDT Forms [...] the form?: please complete and call for merchandise pickup/receiving associate at [phone] Additional comments: please complete and call for merchandise pickup/receiving associate at [phone] Call taken on 04/01/2018 at 4:48 PM by Evelyn Olvera documented in this encounter Plan of Treatment Not on filedocumented as of this encounter Visit Diagnoses Not on filedocumented in this encounter Additional Health Concerns Assessment Noted Time PHQ-9 Depression Total Score: 7 02/07/2018 7:00 AM CDT documented as of this encounter Care Teams Bar Pilot Relationship Specialty Start Date End Date Lalita Perez MD PCP - General Student in organized health 10/21/1404/21 care education/training program documented as of this encounter
--- OUTSIDE RECORDS SUMMARY | 2022-07-02 11:12 | XMS_ITS | Encounter Summary ---
:1988 Author Organization [place] Address [address] [place] [address] Care Team Providers Name Role Phone Blank Lemos MD Primary Care Provider Blank Lemos MD Unavailable Blank Lemos MD Unavailable Reason for Visit Reason Comments Medication Refill escitalopram (LEXAPRO) 20 MG tablet Encounter Details Date Type Department Care Team Description 08/06/2018 Refill [facility] on Refill Clinic Dev Reyes MD (escitalopram (LEXAPRO) 0666 [facility] 20 MG tab let) [place] [address] 59[address] [facility] [place] [address] [place] [address] (Wo rk) Social History Tobacco [...] No positive test in last 12 months WARE CONFIGURATION MANAGER documented in this encounter Plan of Treatment Not on filedocumented as of this encounter Visit Diagnoses Diagnosis Generalized anxiety disorder Bipolar I disorder (H) Bipolar I disorder, most recent episode (or current) unspecified documented in this encounter Additional Health Concerns Assessment Noted Time PHQ-9 Depression Total Score: 7 02/07/2018 7:00 AM CDT documented as of this encounter Care Teams Dock Manager Relationship Specialty Start Date End Date Blank Lemos MD PCP - General Internal Medicine 04/22/[address] [place] [address] [address] [place], [place] [address] Blank Lemos MD PCP - Assigned PCP 04/25/18 10/12/18 3305 [facility] K[place] R[place] [phone] Blank Lemos MD Assigned PCP 04/25/18 3305 [facility] K[place] R[place] [phone] documented as of this encounter
--- OUTSIDE RECORDS SUMMARY | 2022-07-02 11:12 | XMS_ITS | Encounter Summary ---
:1990 Author Organization [place] Address [facility] [place] [address] Care Team Providers Name Role Phone Uvaldo Gamble MD Primary Care Provider Uvaldo Gamble MD Unavailable Uvaldo Gamble MD Unavailable Reason for Visit Reason Comments Physical Encounter Details Date Type Department Care Team Description 09/22/2018 Office Visit [facility] Uvaldo Gamble Encounter for gynecological examination without abnormal finding (Primary Dx); Clinic Dev Camp MD Bipolar I disorder (H); [address] [facility] Migra ine without aura and without status migrainosus, not intractable; [facility] Generalized anxiety disorder; [address] [place] [address] Screening for cervical cancer; [place] [address] Tobacco abuse; Otalgia of both [...] Comments Blood Pressure 108/66 09/22/2018 11:20 AM HAZARDOUS MATERIALS WASTE TECHNICIAN Pulse 59 09/22/2018 11:20 AM HAZARDOUS MATERIALS WASTE TECHNICIAN Temperature 36.7 ??C (98.1 ??F) 09/22/2018 11:20 AM HAZARDOUS MATERIALS WASTE TECHNICIAN Respiratory Rate - - Oxygen Saturation 98% 09/22/2018 11:20 AM HAZARDOUS MATERIALS WASTE TECHNICIAN Inhaled Oxygen Concentration - - Weight 84.4 kg (186 lb) 09/22/2018 11:20 AM HAZARDOUS MATERIALS WASTE TECHNICIAN Height - - Body Mass Index 32.43 [...] six months for an exam and cleaning. RDOUS MATERIALS WASTE TECHNICIAN documented in this encounter Progress Notes Uvaldo [...] Uvaldo Gamble MD [facility] DEV RDOUS MATERIALS WASTE TECHNICIAN documented in this encounter Plan of Treatment Not on filedocumented as of this encounter Procedures Procedure Name Priority Date/Time Associated Diagnosis Comme nts PAP IMAGED THIN Routine 09/22/2018 11:51 AM Screening for Resu lts for this LAYER SCREEN HAZARDOUS MATERIALS WASTE TECHNICIAN cervical cancer procedure ar e in the results section. HPV HIGH RISK TYPES Routine 09/22/2018 11:39 AM Screening for Results for this DNA CERVICAL HAZARDOUS MATERIALS WASTE TECHNICIAN cervical cancer procedure ar e in the results section. documented in this encounter Results (ABNORMAL) Pap imaged thin layer screen with HPV - recommended age 30 - 65 years (select HPV order below) (09/22/2018 11:51 AM HAZARDOUS MATERIALS WASTE TECHNICIAN) Component Value Ref Test Analysis Performed At [facility] Range Method Time Signature PAP LSIL (A) COPATH Copath Report COPATH Patient Name: RENA RESENDIZ MR#: [id number] Specimen #: [id number] Collected: 09/22/2018 Received: 09/23/2018 Reported: 09/27/2018 15:17 [...] Arthur Grimes M.D. Processed and screened at [facility] CLINICAL HISTORY: A previous normal pap Date of Last Pap: 04/05/15, Papanicolaou Test Limitations: ??Cervical cytology is a sc reening test with limited sensitivity; regular screening is critical for cancer prevention; Pap tests are p rimarily effective for the diagnosis/prevention of squamous cell carcinoma, not adenocarcinomas or other cancer s. TESTING LAB LOCATION: [facility] [address] [place], [place] ??[address] COLLECTION SITE: Client: ??[facility] Location: EAFP (R) Specimen (Source) Anatomical Collection Method Collection Time Re ceived Time Location / / Volume Laterality Cytologic 09/22/2018 11:51 09/23/2018 2:24 material AM HAZARDOUS MATERIALS WASTE TECHNICIAN PM HAZARDOUS MATERIALS WASTE TECHNICIAN (specimen) Uvaldo Gamble MD LAB - OPTIME CLINICAL SPECIM EN Performing Organization Address City/State/ZIP Code Phon e Number COPATH (ABNORMAL) HPV High Risk Types DNA Cervical (09/22/2018 11:39 AM HAZARDOUS MATERIALS WASTE TECHNICIAN) [facility] Method Time Signature HPV Source [facility] 09/22/2018 [place] 11:51 AM [facility] DEV HAZARDOUS MATERIALS WASTE TECHNICIAN HPV 16 DNA Negative NEG^Negat 09/28/2018 [facility] [place] 2:23 PM [facility] HPV 18 DNA Negative NEG^Negat 09/28/2018 [facility] [place] 2:23 PM [facility] Other HR HPV Positive (A) NEG^Negat 09/28/2018 [facility] [place] 2:23 PM [facility] Final This patient's sample is pos itive for other HR HPV DNA (types 31, 33, 35, 39, 45, 51, 52, 09/28/2018 [facility] 56, 58, 59, 66 or 68), not H PV 16 or HPV 18 DNA. This result requires clinical correlation 2:23 PM [facility] with concurrent cytology findings. [facility] Comment: This test was developed and its performa nce characteristics determined by the [facility], Molecular Diagnostics Laboratory. It has not been [...] Description Cervical Cells 09/22/2018 11: 51 AM [facility] Comment: [id number] Specimen Anatomical Collection Method Collection Time Receive d Time (Source) Location / / Volume Laterality Cervical Cells CERVIX UTERI 09/22/2018 11:39 9 1:15 STRUCTURE / AM HAZARDOUS MATERIALS WASTE TECHNICIAN PM HAZARDOUS MATERIALS WASTE TECHNICIAN Unknown Uvaldo Gamble MD LAB - BLOOD ORDERABLES Performing Organization Address City/State/ZIP Code Phon e Number [address] [address] documented in this encounter Visit Diagnoses Diagnosis [...] Depression Total Score: 4 09/22/2018 3:08 PM HAZARDOUS MATERIALS WASTE TECHNICIAN documented as of this encounter Care Teams Electrical And Radio Mock Up Mechanic Relationship Specialty Start Date End Date Uvaldo Gamble MD PCP - General Internal Medicine 04/22/[address] [place] [address] [place] [address] Uvaldo Gamble MD PCP - Assigned PCP 04/25/18 10/12/[address] [place] [address] KISHAN RENO [phone] Uvaldo Gamble MD Assigned PCP 04/25/18 [address]305 [facility] KISHAN RENO [phone] documented as of this encounter
--- OUTSIDE RECORDS SUMMARY | 2022-07-02 11:12 | XMS_ITS | Encounter Summary ---
:1990 Author Organization [place] Address [facility] [place] [address] Care Team Providers Name Role Phone Blank Lemos MD Primary Care Provider Blank Lemos MD Unavailable Blank Lemos MD Unavailable Reason for Visit Reason Onset Date Comments Refill Request 09/01/2018 topiramate (TOPAMAX) 100 MG tablet Encounter Details Date Type Department Care Team Description 09/01/2018 Refill [facility] Serum, Lily Refill R equest Clinic eDv Reyes MD (topiramate (TOPAMAX) 3305 [facility] 100 MG ta blet) [facility] [address] [facility] [place] [address] [place] [address] (Wo rk) Social History Tobacco [...] Ana Maria Daniels MA 11:11 AM 09/02/2018 LY AND CONSUMER EDUCATION TEACHER Telephone Encounter - Lily Mann RN - 09/02/2018 7:54 AM FAMILY AND CONSUMER EDUCATION TEACHER 30 day supply given. Patient is due for yearly physical and lab work. Please call and assist with scheduling appointment prior to next refill Lily Donohue RN - [facility] LY AND CONSUMER EDUCATION TEACHER Telephone Encounter - HollyFaiza - 09/01/2018 1:24 [...] No positive test in last 12 months LY AND CONSUMER EDUCATION TEACHER documented in this encounter Plan of [...] as of this encounter Care Teams Medical Staff Services Coordinator Relationship Specialty Start Date End Date Blank Lemos MD PCP - General Internal Medicine 04/22/[address] [place] [address] K[place] R[place] [phone] Blank Lemos MD PCP - Assigned PCP 04/25/18 10/12/[address] [place] [address] [place] R[place] [phone] Blank Lemos MD Assigned PCP 04/25/[address] [place] [address] K[place] RENO [phone] documented as of this encounter
--- OUTSIDE RECORDS SUMMARY | 2022-07-02 11:12 | XMS_ITS | Encounter Summary ---
:1990 Author Organization [place] Address [facility] [place] [address] Care Team Providers Name Role Phone Blank Lemos MD Primary Care Provider Blank Lemos MD Unavailable Hardeep Cárdenas Unavailable Unavailable Reason for Visit Reason Comments Medication Refill Encounter Details Date Type Department Care Team Description 07/27/[address] [facility] Blank Oliveros MD Medication Refill Dev [address] [facility] [address] [facility] [place] [address] [address] [place] [address] [phone] Social History Tobacco Use Types Packs/Day Years [...] in last 12 months Prescription approved per [facility] Refill Protocol. Tony Huang RN, BSN, PHN CT SUPPORT STAFF MEMBER documented in this encounter Plan of Treatment Not on filedocumented as of this encounter Visit Diagnoses Diagnosis Generalized anxiety disorder Bipolar I disorder (H) Bipolar I disorder, most recent episode (or current) unspecified documented in this encounter Additional Health Concerns Assessment Noted Time PHQ-9 Depression Total Score: 4 09/22/2018 3:08 PM DIRECT SUPPORT STAFF MEMBER documented as of this encounter Care Teams Lumber Carrier Relationship Specialty Start Date End Date Blank Lemos, PCP - General Internal Medicine [facility]/22/18 [facility] KISHAN RENO [phone] Blank Lemos, Assigned PCP 04/25/18 MD Zarate [facility] KISHAN RENO [phone] Hardeep Cárdenas Personal Advocate & 11/8/19 6/23 /20 Liaison (PAL) documented as of this encounter
--- OUTSIDE RECORDS SUMMARY | 2022-07-02 11:12 | XMS_ITS | Encounter Summary ---
:1990 Author Organization [place] Address [address] [place] [address] Care Team Providers Name Role Phone Blank [...] Depression Total Score: 4 09/22/2018 3:08 PM CASE MANAGERS documented as of this encounter Care Teams Skeins Yarn Examiner Relationship Specialty Start Date End Date Blank Lemos MD PCP - General Internal Medicine 04/22/[address] [place] [address] [place] R[place] [phone] Blank Lemos MD PCP - Assigned PCP 04/25/18 10/12/[address] [place] [address] K[place] R[place] [phone] Blank Lemos MD Assigned PCP 04/25/[address] [place] [address] KISHAN RENO [phone] documented as of this encounter
--- OUTSIDE RECORDS SUMMARY | 2022-07-02 11:12 | XMS_ITS | Encounter Summary ---
:1990 Author Organization [place] Address [facility] [place] [address] Care Team Providers Name Role Phone Lalita Perez MD Primary Care Provider Reason for Visit Reason Comments Medication Refill escitalopram (LEXAPRO) 20 MG tablet Encounter Details Date Type Department Care Team Description 02/05/2018 Refill [facility] Dev Reyes MD (escitalopram (LEXAPRO) 3305 [facility] 20 MG tab let) [facility] [address] [place] [address] [place] [phone] [place] [address] (Wo rk) Social History Tobacco [...] 02/05/2018 3:46 PM CDT Sent PHQ-9 via TeeBeeDeehart. Brii Vazquez RN, BSN, N [facility] RN Telephone Encounter - Douglas James [...] documented as of this encounter Care Teams Coach Cleaner Relationship Specialty Start Date End Date Lalita Perez MD PCP - General Student in [facility] health 10/21/1404/21 care education/training program documented as of this encounter
--- OUTSIDE RECORDS SUMMARY | 2022-07-02 11:12 | XMS_ITS | Encounter Summary ---
:1990 Author Organization [place] Address [facility] [place] [address] Care Team Providers Name Role Phone Blank Lemos MD Primary Care Provider Blank Lemos MD Unavailable Blank Lemos MD Unavailable Reason for Visit Reason Onset Date Comments Results 04/26/2018 Re: urine culture Encounter Details Date Type Department Care Team Description 04/26/2018 Telephone [facility] Blank Lemos Results ( Re: urine Clinic Dev Camp MD culture) [address] 3305 [facility] [address] [place] [address] [place] [id number] [phone] Social History Tobacco Use Types Packs/Day Years [...] further evaluation. Blank Lemos MD Internal Medicine/Pediatrics [facility] Telephone Encounter - Anastasia Dickey - 04/26/2018 [...] documented as of this encounter Care Teams Long Chain Dyeing Machine Operator Relationship Specialty Start Date End Date Blank Lemos MD PCP - General Internal Medicine 04/22/[address] [place] [address] K[place] RENO [phone] Blank Lemos MD PCP - Assigned PCP 04/25/18 10/12/[address] [place] [address] K[place] RENO [phone] Blank Lemos MD Assigned PCP 04/25/[address] [place] [address] K[place] RENO [phone] documented as of this encounter
--- OUTSIDE RECORDS SUMMARY | 2022-07-02 11:12 | XMS_ITS | Encounter Summary ---
:1990 Author Organization [place] Address [address] [place] [address] Care Team Providers Name Role Phone Blank [...] Depression Total Score: 4 09/22/2018 3:08 PM TRANSITION ADVISOR documented as of this encounter Care Teams Combination Building Inspector Relationship Specialty Start Date End Date Blank Lemos, PCP - General Internal Medicine 04/22/18 [facility] [address] [place], KISHAN [address] Blank Lemos, Assigned PCP 04/25/18 MD Zarate [facility] [place] [address] Hardeep Cárdenas Personal Advocate & 06/17/1901/30 Liaison (PAL) documented as of this encounter
--- OUTSIDE RECORDS SUMMARY | 2022-07-02 11:12 | XMS_ITS | Encounter Summary ---
:1990 Author Organization [place] Address [facility] [place] [address] Care Team Providers Name Role Phone Blank Lemos MD Primary Care Provider Blank Lemos MD Unavailable Blank Lemos MD Unavailable Reason for Visit Reason Comments Colposcopy Encounter Details Date Type Department Care Team Description 10/07/2018 Office Visit [facility] Yonathan Giraldo Papsohan molina smear of Clinic Dev You MD cervix with low grade [address] [place] [address] [place], [place] intraepithelial lesion [address] [address] (LGSIL) (Primary Dx) [place] [phone] (Wo rk) [address] [phone] Social History Tobacco Use Types Packs/Day Years [...] Comments Blood Pressure 114/80 10/07/2018 2:04 PM STRAIGHT LINE PRESS SETTER Pulse - - Temperature - - Respiratory Rate - - Oxygen Saturation - - Inhaled Oxygen Concentration - - Weight 84.6 kg (186 lb 9.6 oz) 10/07/2018 2:04 PM STRAIGHT LINE PRESS SETTER Height - - Body Mass Index 32.54 [...] Pap/HPV in 1 year Yonathan Giraldo MD IGHT LINE PRESS SETTER documented in this encounter Nursing Notes Furlong, Shi F, GRADES 1 THROUGH 6 TEACHER - 10/07/2018 2:00 PM CST Chief Complaint [...] Vaccinations: flu shot declined Shi Rinaldi CMA IGHT LINE PRESS SETTER documented in this encounter Plan of Treatment Not on filedocumented as of this encounter Procedures Procedure Name Priority Date/Time Associated Diagnosis Comme nts HCG QUALITATIVE LEANDRA 10/07/2018 2:11 Papanicolaou smear of Results for this URINE PM STRAIGHT LINE PRESS SETTER cervix with low grade proced ure are in squamous the results intraepithelial lesion secti on. (LGSIL) documented in this encounter Results HCG qualitative urine - CSC and Range (10/07/2018 2:11 PM STRAIGHT LINE PRESS SETTER) P athologist Signature HCG Qual Urine Negative NEG^Negati 10/07/2018 [facility] 2:24 PM STRAIGHT LINE PRESS SETTER [facility] Comment: This test is for screening purposes. ??R esults should be interpreted along with the clinical picture. ??Confirmation te sting is available if warranted by ordering [id number], HCG Quantitative Pregna ncy. Specimen Anatomical Collection Method Collection Time Receive d Time (Source) Location / / Volume Laterality Urine specimen 10/07/2018 2:11 PM 019 2:13 (specimen) STRAIGHT LINE PRESS SETTER PM STRAIGHT LINE PRESS SETTER Yonathan Giraldo MD LAB - URINE ORDERABLES Performing Organization Address City/State/ZIP Code Phon e Number [address] [address] documented in this encounter Visit Diagnoses Diagnosis Papanicolaou smear of cervix with low gr asiya squamous intraepithelial lesion (LGSIL) - Primary documented in this encounter Additional Health Concerns Assessment Noted Time PHQ-9 Depression Total Score: 4 09/22/2018 3:08 PM STRAIGHT LINE PRESS SETTER documented as of this encounter Care Teams Learning Support Teacher Relationship Specialty Start Date End Date Blank Lemos MD PCP - General Internal Medicine 04/22/[address] [place] [address] DR VASQUEZ, KISHAN [phone] Blank Lemos MD PCP - Assigned PCP 04/25/18 10/12/[address] [place] [address] KISHAN RENO [phone] Blank Lemos MD Assigned PCP 04/25/[address] [place] [address] K[place] RENO [phone] documented as of this encounter
--- OUTSIDE RECORDS SUMMARY | 2022-07-02 11:12 | XMS_ITS | Encounter Summary ---
:1990 Author Organization [place] Address [facility] [place] [address] Care Team Providers Name Role Phone Blank Lemos MD Primary Care Provider Blank Lemos MD Unavailable Blank Lemos MD Unavailable Hardeep Cárdenas Unavailable Unavailable Encounter Details Date Type Department Care Team Description 09/28/2018 Result Follow [facility] Blank Lemos Dx: Papa nicolaou smear Up Clinic Dev Camp MD of cervix with low grade [address] [place] [address] [place] squamous i ntraepithelial [facility] DR lesion (LGSIL) [address] [place] [address] [place] [phone] [address] (Work) [phone] Social History Tobacco Use Types Packs/Day Years [...] 09/22/18 LSIL, +HR HPV, not 16/18. Plan [place] by 12/20/18 09/29/18 Patient has been notified of results and recommendations. 10/07/18 [place]- No lesions seen, no Bx taken. Plan 1 yr co-test, due by 09/22/19. 09/07/19 [employer] reminder message sent. (es) 03/05/20 CCT tracking. 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) documented in this encounter Additional Health Concerns Assessment Noted Time PHQ-9 Depression Total Score: 4 09/22/2018 3:08 PM FLAVORING OIL FILTERER documented as of this encounter Care Teams Heavy Equipment Operator Relationship Specialty Start Date End Date Blank Lemos, PCP - General Internal Medicine 04/22/18 [facility] KISHAN RENO [phone] Blank Lemos, PCP - Assigned PCP 04/25/18 MD Zarate [facility] [place] [phone] Blank Lemos, Assigned PCP 04/25/18 [facility] [place] [address] Hardeep Cárdenas Personal Advocate & 06/17/1901/30 Liaison (PAL) documented as of this encounter
--- OUTSIDE RECORDS SUMMARY | 2022-07-02 11:12 | XMS_ITS | Encounter Summary ---
:1990 Author Organization [place] Address Replaced by [facility] [place] [address] Care Team Providers Name Role Phone Blank Lemos MD Primary Care Provider Blnak Lemos MD Unavailable Hardeep Cárdenas Unavailable Unavailable Reason for Visit Reason Comments Ear Problem Encounter Details Date Type Department Care Team Description 07/15/[address] [facility] Rebeka French Non- recurrent acute Clinic Dev Mays PA-C suppurative otitis [address] [facility] media of both ears [facility] without spontaneous [address] [place] [address] rupture of tympanic [place] [address] membranes [...] Comments Blood Pressure 118/64 07/15/2019 2:56 PM MATH TUTOR Pulse 67 07/15/2019 2:56 PM MATH TUTOR Temperature 36.8 ??C (98.3 ??F) 07/15/2019 2:56 PM MATH TUTOR Respiratory Rate 16 07/15/2019 2:56 PM MATH TUTOR Oxygen Saturation 98% 07/15/2019 2:56 PM MATH TUTOR Inhaled Oxygen Concentration - - Weight 96.6 kg (213 lb) 07/15/2019 2:56 PM MATH TUTOR Height 160 cm (5' 3) 07/15/2019 2:56 PM MATH TUTOR Body Mass Index 37.73 07/15/2019 2:56 PM MATH TUTOR documented in this encounter Progress Notes Rebeka [...] tablet; Refill: 0 Rebeka French PA-C [facility] DEV TUTOR documented in this encounter Plan of Treatment Not on filedocumented as of this encounter Visit Diagnoses Diagnosis Non-recurrent acute suppurative otitis m edia of both ears without spontaneous rupture of tympanic membranes - Primary documented in this encounter Additional Health Concerns Assessment Noted Time PHQ-9 Depression Total Score: 4 09/22/2018 3:08 PM MATH TUTOR documented as of this encounter Care Teams Bilingual Administrative Assistant Relationship Specialty Start Date End Date Blank Lemos, PCP - General Internal Medicine 04/22/18 MD Zarate [facility] [address] MÉNDEZ, KISHAN [phone] Blank Lemos, Assigned PCP 04/25/18 MD Zarate [facility] [place] [address] Hardeep Cárdenas Personal Advocate & 06/17/1901/30 Liaison (PAL) documented as of this encounter
--- OUTSIDE RECORDS SUMMARY | 2022-07-02 11:12 | XMS_ITS | Encounter Summary ---
:1990 Author Organization [place] Address [facility] [place] [address] Care Team Providers Name Role Phone Blank Lemos MD Primary Care Provider Blank Lemos MD Unavailable Reason for Visit Reason Comments Medication Refill SUMAtriptan (IMITREX) 25 MG tablet Encounter Details Date Type Department Care Team Description 06/16/2019 Refill [facility] Blank Lemos, Dc dication Refill Clinic Dev CARVALHO (SUMAtriptan (IMITREX) [address] [place] [address]305 [facility] 25 MG tablet) [facility] [address] [place] [address] [place] [address] [phone] Social History Tobacco Use Types Packs/Day Years [...] No positive test in past 12 months TRUCTION REP documented in this encounter Plan of Treatment Not on filedocumented as of this encounter Visit Diagnoses Diagnosis Other migraine without status migrainosu s, not intractable documented in this encounter Additional Health Concerns Assessment Noted Time PHQ-9 Depression Total Score: 4 09/22/2018 3:08 PM CONSTRUCTION REP documented as of this encounter Care Teams Lithopone Mill Worker Relationship Specialty Start Date End Date Blank Lemos MD PCP - General Internal Medicine 04/22/[address] [place] [address] K[place] RENO [phone] Blank Lemos MD Assigned PCP 04/25/[address] [place] [address] K[place] R[place] [phone] documented as of this encounter
--- OUTSIDE RECORDS SUMMARY | 2022-07-02 11:13 | XMS_ITS | Encounter Summary ---
:1990 Author Organization [place] Address [facility] [place] [address] Care Team Providers Name Role Phone Lalita Perez MD Primary Care Provider Reason for Visit Reason Comments Forms Encounter Details Date Type Department Care Team Description 12/22/2016 Office Visit [facility] Blank Lemos Gastroeso phageal reflux disease without esophagitis (Primary Dx); Clinic Dev Camp MD History of MMR vaccination; [address] [place] RUQ abdomi nal pain; [facility] DR Migraine without aura and without status migrainosus, not intractable [address] [place] [address] [place] [address] Social History Tobacco Use Types Packs/Day [...] the following health issues: FMLA paperwork from [employer] [facility] [employer] for ongoing migraines. 1. 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 Problem [...] if pain not improving. Blank Lemos MD [facility] DEV documented in this encounter Nursing [...] [facility]ITY (Measles) AI [place] [facility] Antibody IgG [facility] Comment: Positive, suggests prev. exposure and [...] Organization Address City/State/ZIP Code Phon e Number [address] Rubella Antibody IgG Quantitative (12/22/2016 10:15 AM CDT) Analysis Performed At Patho logist Time Signature Rubella Antibody 18 IU/mL [facility] IgG Quantitative [facility] Comment: Positive. ??Suggests previous exposure o r [...] ORDERABLES Performing Organization Address City/[facility] Code Phon e Number [address] (ABNORMAL) Mumps Antibody IgG (12/22/2016 10:15 AM CDT) athologist Signature Mumps Antibody 2.1 (H) 0.0 - 0.8 [facility] IgG AI [facility] Comment: Positive, suggests prev. exposure and pr [...] Organization Address City/State/ZIP Code Phon e Number [address] (ABNORMAL) Comprehensive metabolic panel (12/22/2016 10:15 AM CDT) Patholo gist Method Time Signature Sodium 143 133 - 144 [place] mmol/L [facility] Potassium 4.2 3.4 - 5.3 [place] mmol/L [facility] Chloride 112 (H) 94 - 109 [place] mmol/L [facility][1] Carbon Dioxide 23 20 - 32 [place] mmol/L [facility][1] Anion Gap 8 3 - 14 [place] mmol/L [facility][1] Glucose 82 70 - 99 [place] mg/dL [facility][1] Urea Nitrogen 13 7 - 30 [place] mg/dL [facility][1] Creatinine 0.72 0.52 - [place] 1.04 [facility] mg/dL [facility] GFR Estimate >90 >60 [place] Non GFR Calc mL/min/1. CLINICS [address]2 [facility] GFR Estimate If >90 >60 [place] Black GFR Calc mL/min/1. CLIN ICS 7m2 [facility] Calcium 9.2 8.5 - [place] 10.1 [facility] mg/dL [facility] Bilirubin Total 0.3 0.2 - 1.3 [place] mg/dL [facility][1] Albumin 3.6 3.4 - 5.0 [place] g/dL [facility][1] Protein Total 7.0 6.8 - 8.8 [place] g/dL [facility][1] Alkaline 78 40 - 150 [place] Phosphatase U/L [facility][1] ALT 55 (H) 0 - 50 [place] U/L [facility][1] AST 22 0 - 45 [place] U/L [facility][1] Specimen Anatomical Collection Method Collection Time Receive d Time (Source) Location / / Volume Laterality Blood specimen 12/22/2016 10:15 7 (specimen) AM CDT 10:16 AM CDT Blank Lemos MD LAB - BLOOD ORDERABLES Performing Organization Address City/State/ZIP Code Phon e Number [facility] [address] [place] [address] documented in this encounter Visit Diagnoses Diagnosis [...] documented as of this encounter Care Teams Abattoir Manager Relationship Specialty Start Date End Date Lalita Perez MD PCP - General Student in [facility] health 10/21/1404/21 care education/training program documented as of this encounter
--- OUTSIDE RECORDS SUMMARY | 2022-07-02 11:13 | XMS_ITS | Encounter Summary ---
:1990 Author Organization [place] Address [address] [place] [address] Care Team Providers Name Role Phone Lalita Perez MD Primary Care Provider Reason for Visit Reason Onset Date Comments Refill Request 08/11/2016 TOPIRAMATE 25MG Encounter Details Date Type Department Care Team Description 08/11/2016 Refill [facility] Lalita Perez MD Refill Request Clinic [facility] (TOPIRAMATE 25MG) [address] [facility] [address] [place] [address] [place] [address] [phone] Social History Tobacco Use Types Packs/Day Years [...] 2:17 PM CST Prescription approved per [facility] Refill Protocol. Kylah Gomez, integrity analyst Nurse MS SUPPORT SPECIALIST Telephone Encounter - Lalita Merritt - 08/11/2016 9:47 AM CST TOPIRAMATE 25MG Last Written Prescription Date: 07/11/2016 Last Fill Quantity: 120, # refills: 0 Last Office Visit with [facility], [facility] or [facility] prescribing provider: 06/16/2016 Future Office Visit: CREATININE Date Value Ref Range Status 04/19/2016 0.64 0.52 - 1.04 mg/dL Final MS SUPPORT SPECIALIST documented in this encounter Plan of [...] documented as of this encounter Care Teams Neonatal Doctor Relationship Specialty Start Date End Date Lalita Perez MD PCP - General Student in organized health 10/21/1404/21 care education/training program documented as of this encounter
--- OUTSIDE RECORDS SUMMARY | 2022-07-02 11:13 | XMS_ITS | Encounter Summary ---
:1990 Author Organization [place] Address [facility] [place] [address] Care Team Providers Name Role Phone Lalita Perez MD Primary Care Provider Reason for Visit Reason Onset Date Comments Refill Request 07/13/2017 escitalopram (LEXAPR O) 20 MG tablet Encounter Details Date Type Department Care Team Description 07/13/2017 Refill [facility] Lalita Perez MD Refill Request Clinic [facility] (escitalopram (LEXAPRO) [address] [place] [address] [facility] 20 MG tablet) [facility] [address] [place] [address] [place] [address] [phone] Social History Tobacco Use Types Packs/Day Years [...] Ashley - 07/31/2017 10:51 AM CST 3rd IT VERIFICATION CLERK Telephone Encounter - Anastasia Ashley - 07/24/2017 11:13 AM CST Left 2nd VM for pt to call back. She is over due for an office visit. IT VERIFICATION CLERK Telephone Encounter - Chrissie Arana - 07/17/2017 1:49 PM CST Left message for patient to call us back. She is due for an office visit. IT VERIFICATION CLERK Telephone Encounter - Lily Encarnacion MD - 07/15/2017 8:23 PM CREDIT VERIFICATION CLERK Depression and anxiety have not been addressed at since 04/2016 per notes. Was referred to Psychiatry at that time. Needs f/u. Rx filled for 30 days. Please let know. Lily Encarnacion MD Internal Medicine/Pediatrics IT VERIFICATION CLERK Telephone Encounter - Alissa Blank RN - [...] Dr. Encarnacion as she saw her last IT VERIFICATION CLERK Telephone Encounter - Lalita Merritt - 07/13/2017 9:29 AM CST [facility] 01/28/2017 IT VERIFICATION CLERK documented in this encounter Plan of Treatment Not on filedocumented as of this encounter Visit Diagnoses Diagnosis Generalized anxiety disorder Bipolar I disorder (H) Bipolar I disorder, most recent episode (or current) unspecified documented in this encounter Additional Health Concerns Assessment Noted Time PHQ-9 Depression Total Score: 14 04/11/2016 7:23 AM CD T documented as of this encounter Care Teams Director Inbound Sales Relationship Specialty Start Date End Date Lalita Perez MD PCP - General Student in organized health 10/21/1404/21 care education/training program documented as of this encounter
--- OUTSIDE RECORDS SUMMARY | 2022-07-02 11:13 | XMS_ITS | Encounter Summary ---
:1990 Author Organization [place] Address [facility] [place] [address] Care Team Providers Name Role Phone Lalita Perez MD Primary Care Provider Reason for Visit Reason Onset Date Comments Chest Pain 07/28/2016 Encounter Details Date Type Department Care Team Description 07/28/2016 Telephone [facility] Taylor Perez MD Chest Pain [facility] [address] [facility] [address] [place] [address] [address] [place] [address] [place] [address] [phone] Social History Tobacco Use Types Packs/Day Years [...] new symptoms develop, call your PCP or [place] [facility] as soon as possible. Guideline used: Telephone Triage Protocols for Nurses, ? Billy, UNRULY Butcher RN 8TH GRADE TEACHER documented in this encounter Plan of Treatment Not on filedocumented as of this encounter Visit Diagnoses Not on filedocumented in this encounter Additional Health Concerns Assessment Noted Time PHQ-9 Depression Total Score: 14 04/11/2016 7:23 AM CD T documented as of this encounter Care Teams Afterschool Babysitter Relationship Specialty Start Date End Date Lalita Perez MD PCP - General Student in [facility] 10/21/1404/21 care education/training program documented as of this encounter
--- OUTSIDE RECORDS SUMMARY | 2022-07-02 11:13 | XMS_ITS | Encounter Summary ---
:1990 Author Organization [place] Address [address] [place] [address] Care Team Providers Name Role Phone Lalita Perez MD Primary Care Provider Reason for Visit Reason Onset Date Comments Medication Request 08/14/2016 ear pain Encounter Details Date Type Department Care Team Description 08/14/2016 Telephone [facility] Lalita Perez MD Medication Request (ear Clinic [facility] [place] pain) [address] [place] [address] [address] [place] [address] [place] [address] [phone] Social History Tobacco Use Types Packs/Day Years [...] Kapadia RN Message handled by Nurse Triage. ERCIAL LENDER Telephone Encounter - Kirill Ochoa PA-C - 08/15/2016 3:07 PM COMMERCIAL LENDER Please have patient follow up with PCP if symptoms are persistent. ERCIAL LENDER Telephone Encounter - Kristie Kapadia RN - [...] reporting no improvement with ear pain with myfcocfb-ystiepfcq-suznwnrmaokujs (CORTISPORIN) 3.5-76749-4 otic suspension drops. States that the pain [...] Kapadia RN Message handled by Nurse Triage. ERCIAL LENDER documented in this encounter Plan of Treatment Not on filedocumented as of this encounter Visit Diagnoses Not on filedocumented in this encounter Additional Health Concerns Assessment Noted Time PHQ-9 Depression Total Score: 14 04/11/2016 7:23 AM CD T documented as of this encounter Care Teams Patient Ambassador Relationship Specialty Start Date End Date Lalita Perez MD PCP - General Student in [facility] health 10/21/1404/21 care education/training program documented as of this encounter
--- OUTSIDE RECORDS SUMMARY | 2022-07-02 11:13 | XMS_ITS | Encounter Summary ---
:1990 Author Organization [place] Address [facility] [place] [address] Care Team Providers Name Role Phone Lalita Perez MD Primary Care Provider Reason for Visit Reason Comments Urgent Care Pharyngitis since last night, swollen, h janett to swallow, chills, OTC-advil,dayquil Ear Problem Right ear pain since last ni ght. URI nasal congestion since last night. Encounter Details Date Type Department Care Team Description 08/05/2016 Office Visit [facility] Kirill Ochoa Throat p ain (Primary Dx); Urgent Care Dev Vargas PA-C Acute otitis externa of right ear, unspe cified type [address] [facility] [address] [place] [address] [place] [phone] Social History Tobacco Use Types Packs/Day Years [...] Comments Blood Pressure 112/70 08/05/2016 4:43 PM TAILOR HELPER Pulse 80 08/05/2016 4:43 PM TAILOR HELPER Temperature 36.8 ??C (98.2 ??F) 08/05/2016 4:43 PM TAILOR HELPER Respiratory Rate - - Oxygen Saturation 98% 08/05/2016 4:43 PM TAILOR HELPER Inhaled Oxygen Concentration - - Weight 89.8 kg (198 lb) 08/05/2016 4:43 PM TAILOR HELPER Height - - Body Mass Index 33.99 04/29/2016 8:18 AM CDT documented in this encounter Patient Instructions Patient InstructionsKirill Ochoa PA-C - 08/05/2016 5:12 PM TAILOR HELPER Images from the original note were not [...] Dry your ears with a towel or hairpiece stylist after getting wet. Also, use ear plugs [...] your health care provider ?? Seizure ?? [phone] [employer]. [address] [place] [address]. All rights reserved. This information is not [...] in??1/2 cup of warm water ?? An fahn-aye-lxykzlp anesthetic gargle Use Medication for More Relief Duuv-xsx-oxnvvzo medication can reduce sore throat symptoms. Ask [...] glands in the neck or jaw ?? [phone] [employer]. [address] [place] [address], [place] [address]. All rights reserved. This information is not intended as a substitute for professional medical care. Always follow your healthcare professional's instructions. OR HELPER documented in this encounter Progress Notes Kirill [...] next 24-48 hours after antibiotics initiated OR HELPER documented in this encounter Nursing Notes Evelyn [...] using cuff size: large ISIDRO Haro OR HELPER documented in this encounter Plan of Treatment Not on filedocumented as of this encounter Procedures Procedure Name Priority Date/Time Associated Diagnosis Comme nts RAPID STREP SCREEN Routine 08/05/2016 5:04 PM Throat pain Res ults for this THROAT SWAB TAILOR HELPER procedure are i n the results section. BETA HEMOLYTIC Routine 08/05/2016 5:04 PM Throat pain Results for this STREP GROUP A TAILOR HELPER procedure are in CULTURE the results section. documented in this encounter Results Beta strep group A culture (08/05/2016 5:04 PM TAILOR HELPER) Component Value Ref Test Analysis Performed At [facility] gist Range Method Time Signature Specimen Throat QUINCY Description CLINICS DEV Culture Micro No Beta QUINCY Streptococcus CLINICS isolated DEV Micro Report FINAL 08/07/[address] [facility] DEV Specimen Anatomical Collection Method Collection Time Receive d Time (Source) Location / / Volume Laterality 08/05/2016 5:04 PM 6 5:09 TAILOR HELPER PM TAILOR HELPER Kirill Ochoa PA-C LAB - MICRO GENERAL WALKER [place] Performing Organization Address City/[facility]/ZIP Code Phon e Number [facility] [address] [place] [phone] Strep, Rapid Screen (08/05/2016 5:04 PM TAILOR HELPER) Component Value Ref Test Analysis Performed At [facility] gist Range Method Time Signature Specimen Throat [facility] DEV Rapid Strep A NEGATIVE: No Group A strepto coccal antigen detected by immunoassay, await QUINCY Screen culture report. CLINICS DEV Micro Report FINAL 08/05/[address] [facility] DEV Specimen Anatomical Collection Method Collection Time Receive d Time (Source) Location / / Volume Laterality Specimen from 08/05/2016 5:04 PM 08/05/20 16 5:09 throat TAILOR HELPER PM TAILOR HELPER (specimen) Kirill Ochoa PA-C LAB - MICRO GENERAL WALKER [facility] Performing Organization Address City/[facility]/ZIP Code Phon e Number [facility] [address] [place] [phone] documented in this encounter Visit Diagnoses Diagnosis Throat pain - Primary Acute otitis externa of right ear, unspe cified type documented in this encounter Additional Health Concerns Assessment Noted Time PHQ-9 Depression Total Score: 14 04/11/2016 7:23 AM CD T documented as of this encounter Care Teams Public Space Attendant Relationship Specialty Start Date End Date Lalita Perez MD PCP - General Student in [facility] health 10/21/1404/21 care education/training program documented as of this encounter
--- OUTSIDE RECORDS SUMMARY | 2022-07-02 11:13 | XMS_ITS | Encounter Summary ---
:1990 Author Organization [place] Address [facility] [place] [address] Care Team Providers Name Role Phone Lalita Perez MD Primary Care Provider Reason for Visit Reason Comments Ear Problem Encounter Details Date Type Department Care Team Description 08/15/2016 Office Visit [facility] Rebeka French suppurative otitis media of right ear without spontaneous rupture of tympanic membrane, recurrence not specified (Primary Dx); Clinic Dev Mays PA-C Acute sinusitis with symptoms > 10 days [address] [facility] [address] [place] [address] [place] [address] Social History Tobacco Use Types Packs/Day [...] Comments Blood Pressure 110/70 08/15/2016 4:09 PM CRISIS NURSE Pulse 91 08/15/2016 4:09 PM CRISIS NURSE Temperature 37 ??C (98.6 ??F) 08/15/2016 4:09 PM CRISIS NURSE Respiratory Rate - - Oxygen Saturation 99% 08/15/2016 4:09 PM CRISIS NURSE Inhaled Oxygen Concentration - - Weight 89 kg (196 lb 4.8 oz) 08/15/2016 4:09 PM CRISIS NURSE Height 160.7 cm (5' 3.25) 08/15/2016 4:09 PM CRISIS NURSE Body Mass Index 34.5 08/15/2016 4:09 PM CRISIS NURSE documented in this encounter Patient Instructions Patient InstructionsRebeka French PA-C - 08/15/2016 4:21 PM CRISIS NURSE Call with any questions IS NURSE documented in this encounter Progress Notes Rebeka [...] list, Allergies, and Medical/Social/Surgical histories reviewed in [facility] andupdated as appropriate. ROS: ROS otherwise [...] tablet See Patient Instructions [facility] French [facility] documented in this encounter Nursing Notes Kylah [...] kg). BP completed using cuff size: regular IS NURSE documented in this encounter Plan of Treatment Not on filedocumented as of this encounter Visit Diagnoses Diagnosis Acute suppurative otitis media of right ear without spontaneous rupture of tympanic membrane, recurrence not specified - [facility] Acute sinusitis with symptoms > 10 days Acute sinusitis, unspecified documented in this encounter Additional Health Concerns Assessment Noted Time PHQ-9 Depression Total Score: 14 04/11/2016 7:23 AM CD T documented as of this encounter Care Teams Proof Clerk Relationship Specialty Start Date End Date Lalita Perez MD PCP - General Student in organized health 10/21/1404/21 care education/training program documented as of this encounter
--- OUTSIDE RECORDS SUMMARY | 2022-07-02 11:13 | XMS_ITS | Encounter Summary ---
:1990 Author Organization [place] Address [facility] [place] [address] Care Team Providers Name Role Phone Lalita Perez MD Primary Care Provider Reason for Referral Consultation - Closed Specialty Diagnoses / Procedures Referred By Contact Refer red To Contact Diagnoses Migraine without aura and without status migrainosus, not intractable Blank Lemos MD [address] [place] [address] [place] [address] Phone: Fax: Referral ID Status Reason Start Date Expiration Date Visits Requ ested Visits Authorized [id number] Closed 08/28/2016 08/28/2017 1 1 OPERATOR Reason for Visit Reason Comments Headache Ear Problem Encounter Details Date Type Department Care Team Description 08/28/2016 Office Visit [facility] Blank Lemos Migraine without aura and without status migrainosus, not intractable (Primary Dx); Clinic Dev Camp MD ETD (eustachian tube dysfunction), [address] [place] [address] [place] [address] Social History Tobacco Use Types [...] Comments Blood Pressure 111/77 08/28/2016 2:55 PM DAM OPERATOR Pulse 84 08/28/2016 2:55 PM DAM OPERATOR Temperature 36.9 ??C (98.5 ??F) 08/28/2016 2:55 PM DAM OPERATOR Respiratory Rate - - Oxygen Saturation 98% 08/28/2016 2:55 PM DAM OPERATOR Inhaled Oxygen Concentration - - Weight 88.5 kg (195 lb 3.2 oz) 08/28/2016 2:55 PM DAM OPERATOR Height 160.7 cm (5' 3.25) 08/28/2016 2:55 PM DAM OPERATOR Body Mass Index 34.31 08/28/2016 2:55 PM DAM OPERATOR documented in this encounter Patient Instructions Patient InstructionsBlank Lemos MD - 08/28/2016 3:20 PM CST Increase topamax to 100mg twice daily. Make appt for neurology (if things get better, can always cancel appt). Use sudafed for continued ear symptoms. Blank Lemos MD Internal Medicine/Pediatrics [facility] OPERATOR documented in this encounter Progress Notes [...] list, Allergies, and Medical/Social/Surgical histories reviewed in [facility] andupdated as appropriate. ROS: Constitutional, HEENT, [...] ear symptoms. Blank Lemos MD Internal Medicine/Pediatrics [facility] Blank Lemos MD [facility] OPERATOR documented in this encounter Nursing Notes Saira [...] completed using cuff size: christine Singh LPN OPERATOR documented in this encounter Plan of Treatment Scheduled Referrals Name Type Priority Associated Diagnoses Order S [facility] NEUROLOGY ADULT Referral Routine Migraine without aura [...] documented as of this encounter Care Teams Tonnage Compilation Clerk Relationship Specialty Start Date End Date Lalita Perez MD PCP - General Student in organized health 10/21/1404/21 care education/training program documented as of this encounter
--- OUTSIDE RECORDS SUMMARY | 2022-07-02 11:13 | XMS_ITS | Encounter Summary ---
:1990 Author Organization [place] Address [address] [place] [address] Care Team Providers Name Role Phone Lalita Perez MD Primary Care Provider Reason for Visit Reason Onset Date Comments Ear Problem 08/19/2016 Encounter Details Date Type Department Care Team Description 08/19/2016 Telephone [facility] Taylor Perez MD Ear Problem [facility] [place] [address] [facility] [address] [place] [address] [address] [place] [address] [place] [address] [phone] Social History Tobacco Use Types Packs/Day Years [...] she understands the below documentation. Lizett Garcia Remelt Operator UNTS PAYABLE COORDINATOR Telephone Encounter - Lizett Garcia - 08/19/2016 5:41 PM CST LM for patient to call the clinic. Please see below documentation. Thank you, Lizett Garcia Remelt Operator UNTS PAYABLE COORDINATOR Telephone Encounter - Rebeka French PA-C - 08/19/2016 5:12 PM ACCOUNTS PAYABLE COORDINATOR Begin omnicef and dc augmentin. Increase fluid intake. Call and inform patient. Rebeka French PA-C UNTS PAYABLE COORDINATOR Telephone Encounter - Kristie Kapadia RN - [...] would rather change it than continue. Kristie [place], RN Message handled by Nurse Triage. UNTS PAYABLE COORDINATOR documented in this encounter Plan of Treatment Not on filedocumented as of this encounter Visit Diagnoses Diagnosis Acute suppurative otitis media without s pontaneous rupture of ear drum, recurrence not specified, unspecified laterality - Primary documented in this encounter Additional Health Concerns Assessment Noted Time PHQ-9 Depression Total Score: 14 04/11/2016 7:23 AM CD T documented as of this encounter Care Teams Human Resource Intern Relationship Specialty Start Date End Date Lalita Perez MD PCP - General Student in [facility] health 10/21/1404/21 care education/training program documented as of this encounter
--- OUTSIDE RECORDS SUMMARY | 2022-07-02 11:13 | XMS_ITS | Encounter Summary ---
:1990 Author Organization [place] Address [address] [place] [address] Care Team Providers Name Role Phone Lalita Perez MD Primary Care Provider Reason for Visit Reason Onset Date Comments Call Back 05/05/2016 Encounter Details Date Type Department Care Team Description 05/05/2016 Telephone [facility] Lalita Toledo MD Call Back 1440 [employer] [facility] [place] [phone] 3304 [facility] [phone] [facility] [place] [address] (Wo rk) Social [...] SE from abx. Call back # is [phone]. Please call pt to go over the sx's. Thanks. Alvaro management associate Nurse documented in this encounter Plan of Treatment Not on filedocumented as of this encounter Visit Diagnoses Not on filedocumented in this encounter Additional Health Concerns Assessment Noted Time PHQ-9 Depression Total Score: 14 04/11/2016 7:23 AM CD T documented as of this encounter Care Teams Research Study Assistant Relationship Specialty Start Date End Date Lalita Perez MD PCP - General Student in [employer] [facility] 10/21/1404/21 care education/training program documented as of this encounter
--- OUTSIDE RECORDS SUMMARY | 2022-07-02 11:13 | XMS_ITS | Encounter Summary ---
:1990 Author Organization [place] Address [address] [place] [address] Care Team Providers Name Role Phone Lalita Perez MD Primary Care Provider Reason for Visit Reason Comments Cough x 10 days cough. states in t he last 2 days been coughing up clear mucus with blood in it. Encounter Details Date Type Department Care Team Description 04/19/2016 Office Visit [place] [facility] Richard Huntley, Blood in sputum Care (Primary Dx) 1440 [facility] [place] [address] [facility] [phone] [facility] [address] [place] [phone] (Wo rk) Social History Tobacco Use [...] Huntley MD - 04/19/2016 8:27 PM [facility]T [facility] Note Richard Huntley MD, MPH 04/19/2016 History: Rena Turner is a pleasant 26 year old year old female with a chief complaint of cough ,dyspneax 2 days. She states that she has noted blood in the sputum that she expectorates. No fever or chills. No night sweats or chills. No weight loss. No active TB in immediate match up person is referred. No recent surgery or distant travel or immobilization is referred. No FH or personal HX of arterial orvenous thrombosis is referred. She has been on BCP x 8 years. NOT on any anticoagulant. No Hx of bleeding tendency or easy bruisability. No smoking history. Assessment and Plan: Cough,dyspnea and blood in sputum: The patient was directed to [facility] ER for further evaluation and management. The patient agrees w this plan. I spoke w Dr. Dunn at [facility] regarding the patient by phone [...] documented as of this encounter Care Teams Dinkey Locomotive Engineer Relationship Specialty Start Date End Date Lalita Perez MD PCP - General Student in [employer] 10/21/1404/21 care education/training program documented as of this encounter
--- OUTSIDE RECORDS SUMMARY | 2022-07-02 11:13 | XMS_ITS | Encounter Summary ---
:1990 Author Organization [place] Address [address] [place] [address] Care Team Providers Name Role Phone Lalita Perez MD Primary Care Provider Reason for Visit Reason Onset Date Comments Medication Request 05/08/2016 Imitrex Encounter Details Date Type Department Care Team Description 05/08/2016 Telephone [facility] Blank Mary Medication Request 1440 [facility] GINNY Stanley AUDIO VISUAL PROJECT MANAGER (Imitrex) [place] [phone] 9722 [facility] [phone] [facility] [place] [address] (Wo rk) Social History [...] [facility] [address] in [place] Phone Number Patient can be reached at: Home number on file [phone] (home) Best Time: anytime Can we leave a detailed message on this number? YES Kajal Jeong, Mold Changer [facility] documented in this encounter Plan of Treatment Not on filedocumented as of this encounter Visit Diagnoses Diagnosis Other migraine without status migrainosu s, not intractable - Primary documented in this encounter Additional Health Concerns Assessment Noted Time PHQ-9 Depression Total Score: 14 04/11/2016 7:23 AM CD T documented as of this encounter Care Teams Ammonia Nitrate Operator Relationship Specialty Start Date End Date Lalita Perez MD PCP - General Student in [facility] 10/21/1404/21 care education/training program documented as of this encounter
--- OUTSIDE RECORDS SUMMARY | 2022-07-02 11:13 | XMS_ITS | Encounter Summary ---
:1990 Author Organization [place] Address [facility] [place] [address] Care Team Providers Name Role Phone Lalita Perez MD Primary Care Provider Reason for Visit Reason Onset Date Comments Refill Request 10/18/2016 SUMATRIPTAN (IMITREX ) 25MG Encounter Details Date Type Department Care Team Description 10/18/2016 Refill [facility] Lalita Perez MD Refill Request Clinic [facility] (SUMATRIPTAN (IMITREX) [address] [place] 3305 [facility] 25MG) [facility] [address] [place] [address] [place] [address] [phone] Social History Tobacco Use Types Packs/Day Years [...] 10/23/2016 9:09 AM CDT Prescription approved per [facility] Refill Protocol. Vandana Sosa RN Telephone Encounter - Marilee Oliva - 10/18/2016 1:53 PM CST SUMATRIPTAN (IMITREX) 25MG Last Written Prescription Date: 05/08/2016 Last Fill Quantity: 18, # refills: 1 Last Office Visit with [facility], [facility] or [facility] prescribing provider: 08/28/2016 BP Readings from Last 3 Encounters: 08/28/16 111/77 08/15/16 110/70 08/05/16 112/70 NICAL SOLUTIONS ENGINEER documented in this encounter Plan of Treatment Not on filedocumented as of this encounter Visit Diagnoses Diagnosis Other migraine without status migrainosu s, not intractable documented in this encounter Additional Health Concerns Assessment Noted Time PHQ-9 Depression Total Score: 14 04/11/2016 7:23 AM CD T documented as of this encounter Care Teams Logistics Management Specialist Relationship Specialty Start Date End Date Lalita Perez MD PCP - General Student in organized health 10/21/1404/21 care education/training program documented as of this encounter
--- OUTSIDE RECORDS SUMMARY | 2022-07-02 11:13 | XMS_ITS | Encounter Summary ---
:1990 Author Organization [place] Address [address] [facility] [place] [address] Care Team Providers Name Role Phone Lalita Perez MD Primary Care Provider Reason for Visit Reason Comments Urgent Care Sinus Problem sinus pain, bilat ear pain, [place] phlegm, HARPER, ST, PND x 6 days OTC: sinus, nyquil, dayquil Encounter Details Date Type Department Care Team Description 12/04/2015 Office Visit [facility] [place] [facility] Phillip Crowder Otbing r acute Care IRENE Bob nonsuppurative otitis [address] [place] [address] S (Primary Dx) [phone] [place], [place] [id number] Social History Tobacco Use Types Packs/Day Years [...] Body Mass Index 30.88 10/02/2015 5:21 PM EMPLOYMENT CASE MANAGER documented in this encounter Progress Notes [...] Sinus Problem sinus pain, bilat ear pain, [place] phlegm, HARPER, ST, PND x 6 [...] Primary documented in this encounter Care Teams Banking Consultant Relationship Specialty Start Date End Date Lalita Perez MD PCP - General Student in [employer] 10/21/1404/21 care education/training program documented as of this encounter
--- OUTSIDE RECORDS SUMMARY | 2022-07-02 11:13 | XMS_ITS | Encounter Summary ---
:1990 Author Organization [place] Address [address] [place] [address]. [place] [address] Care Team Providers Name Role Phone Lalita Perez MD Primary Care Provider Reason for Referral Mental Health Outpatient - Closed Specialty Diagnoses / Procedures Referred By Contact Refer red To Contact Diagnoses Bipolar I disorder (H) Generalized anxiety disorder Blank Damon NON [facility] SCOOP DRIVER WATCH SUPERVISOR [address] [place] [address] FERNANDO RICE [address] [place] [address] Referral ID Status Reason Start Date Expiration Date Visits Requ ested Visits Authorized [id number] Closed 04/10/2016 04/10/2017 1 1 Reason for Visit Reason Comments Physical Recheck Medication Encounter Details Date Type Department Care Team Description 04/10/2016 Office Visit [facility] Blank Damon hesohan lt maintenance (Primary Dx); Dev Stanley APRN Non morbid obesity, unspecif ied obesity type; 1440 [facility] KAILEE Encounter for surveillance of other cont raceptive; [place] [phone] [place] [address] Generalized anxiety disorder ; [phone] FERNANDO RICE Bipolar I disorder (H); [place] [address] Tobacco abuse; [phone] Need for vaccin ation; (Work) Stomach upset [...] this encounter Progress Notes Blank Damon APRN WATCH SUPERVISOR - 04/10/2016 2:48 PM CDT SUBJECTIVE: CC: [...] recommended All Histories reviewed and updated in [facility]. ROS: C: NEGATIVE for fever, chills, [...] list, Allergies, and Medical/Social/Surgical histories reviewed in [facility] andupdated as appropriate. OBJECTIVE: BP 102/58 mmHg [...] tablet; Refill: 2 -Recommended she f/u with [facility], where she is already established. -Increase [...] Lung CA Screening Blank Damon APRN CNP [facility] documented in this encounter Nursing Notes [...] Name Type Priority Associated Diagnoses Order S [facility] MENTAL HEALTH REFERRAL Referral Routine Bipolar I [...] documented as of this encounter Care Teams Real Estate Attorney Relationship Specialty Start Date End Date Lalita Perez MD PCP - General Student in organized health 10/21/1404/21 care education/training program documented as of this encounter
--- OUTSIDE RECORDS SUMMARY | 2022-07-02 11:13 | XMS_ITS | Encounter Summary ---
:1990 Author Organization [place] Address [address] [place] [address] Care Team Providers Name Role Phone Lalita [...] Type Department Care Team Description 03/03/2016 Telephone [facility] Lalita Sepulveda MD Refill Request 1440 [employer] [facility] (AZURETTE TABLETS 28'S) [place] [phone] 0569 [facility] [phone] [facility] [place] [address] (Wo rk) Social [...] 03/05/2016 9:01 AM CDT Prescription approved per [facility] [place] Refill Protocol. Patient due for physical after 04/05/16. Routing to Station Nurse Pool, please call to assist patient in scheduling a physical after 04/05/16. Telephone Encounter - Lalita Merritt - 03/03/2016 8:07 AM CDT AZURETTE TABLETS 28'S Last Written Prescription Date: 04/05/2015 Last Fill Quantity: 90, # refills: 3 Last Office Visit with [facility] [place], P or [facility] prescribing provider: 10/02/2015 documented in this encounter Plan of Treatment Not on filedocumented as of this encounter Visit Diagnoses Diagnosis Contraceptive management - Primary Unspecified contraceptive management documented in this encounter Care Teams Combat Control Manager Relationship Specialty Start Date End Date Lalita Perez MD PCP - General Student in [facility] 10/21/14 04/21/18 health care education/training program Blank Lemos, PCP - General Internal Medicine 04/22/[address] [place] [address] [address] [place], [place] [id number] Blank Lemos, PCP - Assigned PCP 04/25/[address] [place] [address] [address] [place], [place] [id number] Blank Lemos, Assigned PCP 04/25/[address] [place] [address] [address] [place], [place] [phone] Hardeep Cárdenas Personal Advocate & 06/17/1901/30 Liaison (PAL) Kathleen Lacy CNM Assigned OBGYN Provider 06/01/20 11/23/21 [address] [place] [address] Anabell Shannon Personal Advocate & 10/25/20 Liaison (PAL) Rand Kam, Assigned OBGYN Provider 11/24/21 12/28/21 GIFT WRAPPER CNM [address] [place], [place] [id number] Sharita Frias Assigned OBGYN Provider 01/04/2205/31 MD Blu [address] [place], [place] [phone] Kathleen Lacy CNM Assigned OBGYN Provider 12/29/21 01/03/22 [address] [place], [place] [address] Kathleen Lacy CNM Assigned OBGYN Provider 01/18/22 01/24/22 [address] [place], [place] [address] Sharita Frias Assigned OBGYN Provider 01/25/22 MD Blu [address] [place], [place] [id number] documented as of this encounter
--- OUTSIDE RECORDS SUMMARY | 2022-07-02 11:13 | XMS_ITS | Encounter Summary ---
:1990 Author Organization [place] Address [facility] [place] [address] Care Team Providers Name Role Phone Lalita Perez MD Primary Care Provider Reason for Visit Reason Comments Abnormal Bleeding Problem Encounter Details Date Type Department Care Team Description 01/28/2017 Office Visit [facility] [place], Abnormal u terine and vaginal bleeding, unspecified (Primary Dx); Clinic Dev Weinberg MD Cyst of ovary, unspecified laterality; [address] [place] 3305 [facility] Migra ine without aura and without status migrainosus, not intractable [facility] [address] [place] [address] [place] [address] Social History Tobacco Use [...] in a while. Surgery for endometriosis in [id number]. Ultrasounds very frequently to follow frequent ovarian [...] Per Care Everywhere, has 2 pelvic US. [id number], showed left cyst. In 2010, no cyst. [...] with acetaminophen if possible. Sultana Fonseca MD [facility]3] DEV I discussed this case in depth [...] City/[facility]/ZIP Code Phon e Number [facility] [address] [place] [address] [facility] TSH with free T4 reflex (01/28/2017 9:12 AM CDT) athologist Signature TSH 1.52 0.40 - 4.00 [facility]3] mU/L [facility] Specimen Anatomical Collection Method Collection Time Receive d Time (Source) Location / / Volume Laterality Blood specimen 01/28/2017 9:12 AM 017 9:17 (specimen) CDT AM CDT Lily Encarnacion MD LAB - BLOOD ORDERABLES Performing Organization Address City/[facility]/ZIP Code Phon e Number [facility] [address] [place] [address] Hemoglobin A1c (01/28/2017 9:12 AM CDT) athologist Signature Hemoglobin A1C 5.0 4.3 - 6.0 [facility] Specimen Anatomical Collection Method Collection Time Receive d Time (Source) Location / / Volume Laterality Blood specimen 01/28/2017 9:12 AM 017 9:17 (specimen) CDT AM CDT Lily Encarnacion MD LAB - BLOOD ORDERABLES Performing Organization Address City/[facility]/ZIP Code Phon e Number [address] [address] [phone] Hemoglobin (01/28/2017 9:12 AM CDT) athologist Signature Hemoglobin 13.5 11.7 - 15.7 B[facility] g/dL [facility] Specimen Anatomical Collection Method Collection Time Receive d Time (Source) Location / / Volume Laterality Blood specimen 01/28/2017 9:12 AM 017 9:17 (specimen) CDT AM CDT Lily Encarnacion MD LAB - BLOOD ORDERABLES Performing Organization Address City/[facility]/ZIP Code Phon e Number [address] [address] [phone] documented in this encounter Visit [...] as of this encounter Care Teams Rn Ante Partum Relationship Specialty Start Date End Date Lalita Perez MD PCP - General Student in [facility] 10/21/1404/21 care education/training program documented as of this encounter
--- OUTSIDE RECORDS SUMMARY | 2022-07-02 11:13 | XMS_ITS | Encounter Summary ---
:1990 Author Organization [place] Address [facility] [place] [address] Care Team Providers Name Role Phone Lalita Perez MD Primary Care Provider Reason for Visit Reason Comments Sinus Problem Encounter Details Date Type Department Care Team Description 04/29/2016 Office Visit [facility] Gonzalo Yang MD Acute suppurative otitis media of right ear without spontaneous rupture of tympanic membrane, recurrence not specified (Primary Dx); Dev 3305 [facility] Acute non-recurrent maxillar y sinusitis; 1440 [facility] [place] [address] [place] [address] Social History Tobacco Use [...] of tympanic membrane, recurrence not specified - [facility] Acute non-recurrent maxillary sinusitis Cough documented in this encounter Additional Health Concerns Assessment Noted Time PHQ-9 Depression Total Score: 14 04/11/2016 7:23 AM CD T documented as of this encounter Care Teams Business Analyst Consultant Relationship Specialty Start Date End Date Lalita Perez MD PCP - General Student in organized health 10/21/1404/21 care education/training program documented as of this encounter
--- OUTSIDE RECORDS SUMMARY | 2022-07-02 11:13 | XMS_ITS | Encounter Summary ---
:1990 Author Organization [place] Address [address] [place] [address] Care Team Providers Name Role Phone Lalita Perez MD Primary Care Provider Reason for Visit Reason Onset Date Comments Nurse Advice Line 07/17/2016 Encounter Details Date Type Department Care Team Description 07/17/2016 Telephone [facility] E[facility] Lalita Toledo MD Nurse Advice Line 1440 [employer] [facility] [place] [phone] 5162 [facility] [phone] [facility] [place] [address] [...] Brii Odonnell RN - 07/17/2016 3:46 PM APPLICATION SYSTEMS ADMINISTRATOR Wondering if having flu or s/e of [...] beverages. Increase rest. May try OTC acid senior enterprise architect (Zantac or omeprazole). Monitor over the weekend if no improvement may be seen in clinic or UC if sx worsen. Pt. Verbalized understanding. Brii Odonnell RN, BSN, PHN ICATION SYSTEMS ADMINISTRATOR documented in this encounter Plan of Treatment Not on filedocumented as of this encounter Visit Diagnoses Not on filedocumented in this encounter Additional Health Concerns Assessment Noted Time PHQ-9 Depression Total Score: 14 04/11/2016 7:23 AM CD T documented as of this encounter Care Teams Clamshell Engineer Relationship Specialty Start Date End Date Lalita Perez MD PCP - General Student in organized health 10/21/1404/21 care education/training program documented as of this encounter
--- OUTSIDE RECORDS SUMMARY | 2022-07-02 11:13 | XMS_ITS | Encounter Summary ---
:1990 Author Organization [place] Address [address] [place] [address] Care Team Providers Name Role Phone Lalita Perez MD Primary Care Provider Reason for Visit Reason Onset Date Comments Medication Request 08/05/2016 alternative Encounter Details Date Type Department Care Team Description 08/05/2016 Telephone [facility] Lalita Perez MD Medication Request Clinic [facility] (alternative) [address] [place] 3305 [facility] [address] [place] [address] [place] [address] [phone] Social History Tobacco Use Types Packs/Day Years [...] sent to the pharmacy. Kelly Hernandez RN CEMENTER Telephone Encounter - Emmett Gallegos MD - 08/05/2016 7:24 PM CST alternative sent CEMENTER Telephone Encounter - Kristie Kapadia RN - 08/05/2016 6:[address] Gallegos, please review-ok to wait for UC, or could an alternative medicine be sent earlier? Kristie Kapadia RN Message handled by Nurse Triage. CEMENTER Telephone Encounter - Kristie Kapadia RN - 08/05/2016 6:24 PM CST Patient calls. Was prescribed ciprofloxacin-dexamethasone (CIPRODEX) otic suspension for an ear infection. The medication is 200 dollars, asking for an alternative medication. Please send. Kristie Kapadia RN Message handled by Nurse Triage. CEMENTER documented in this encounter Plan of Treatment Not on filedocumented as of this encounter Visit Diagnoses Diagnosis Acute swimmer's ear of right side - Prim ronak documented in this encounter Additional Health Concerns Assessment Noted Time PHQ-9 Depression Total Score: 14 04/11/2016 7:23 AM CD T documented as of this encounter Care Teams Tax Expert Relationship Specialty Start Date End Date Lalita Perez MD PCP - General Student in [employer] 10/21/1404/21 care education/training program documented as of this encounter
--- OUTSIDE RECORDS SUMMARY | 2022-07-02 11:13 | XMS_ITS | Encounter Summary ---
:1990 Author Organization [place] Address [facility] [place] [address] Care Team Providers Name Role Phone Lalita Perez MD Primary Care Provider Reason for Visit Reason Comments Hemoptysis Encounter Details Date Type Department Care Team Description 04/19[facility]2016 [facility] [address] [place] [address] [place] [address] [id number] Hemoptysis; [facility] Emergency Dep Kyleigh Sandoval MD [facility] [address] [place], [place] [id number] Upper respiratory tract infection, unspe cified type [address] [place] [address] Social History Tobacco Use Types Packs/Day Years [...] help loosen secretions in the lungs. ?? [id number] cough medicines that contain dextromethorphan may help [...] Rapid heartbeat ?? Weakness or dizziness ?? [id number] [place] [address]. All rights reserved. This information is not [...] and the provider's statements to me. 04/19/2016 [facility] EM[facility]PART[facility] Kyleigh Sandoval MD 04/20/16 1502 [...] Basic metabolic panel (04/19/2016 9:25 PM CDT) [facility] Method Time Signature Sodium 142 133 - 144 [place] mmol/L [facility] Potassium 3.8 3.4 - 5.3 [facility]L [facility] Chloride 110 (H) 94 - 109 [facility] mmol/L [facility] Carbon Dioxide 27 20 - 32 [facility] mmol/L [facility] Anion Gap 5 3 - 14 [facility] mmol/L [facility] Glucose 79 70 - 99 [place] mg/dL [facility] Urea Nitrogen 8 7 - 30 [facility] mg/dL [facility] Creatinine 0.64 0.52 - [facility] 1.04 [facility] mg/dL HOSPITAL GFR Estimate >90 >60 [place] Non GFR Calc mL/min/1. [facility] 7m2 HOSPITAL GFR Estimate >90 >60 [place] If Black GFR Calc mL/min/1. [facility] 7m2 HOSPITAL Calcium 8.8 8.5 - [place] 10.1 [facility] mg/dL HOSPITAL Specimen Anatomical Collection Method Collection Time Receive d Time (Source) Location / / Volume Laterality Blood specimen 04/19/2016 9:25 PM 016 9:28 (specimen) CDT PM CDT Kyleigh Sandoval MD LAB - BLOOD ORDERABLES Performing Organization Address City/State/ZIP Code Phon e Number [place] [address] [place] [address] [facility] [address] [phone] CBC + differential (04/19/2016 9:25 PM CDT) [facility] gist Method Time Signature WBC 9.2 4.0 - [place] 11.0 [facility] 10e9/L [facility] RBC Count 4.24 3.8 - 5.2 [place] 10e12/L [facility] Hemoglobin 13.2 11.7 - [place] 15.7 g/dL [facility] Hematocrit 38.5 35.0 - [place] 47.0 % [facility] MCV 91 78 - 100 [place] fl [facility] MCH 31.1 26.5 - [place] 33.0 pg [facility] MCHC 34.3 31.5 - [place] 36.5 g/dL [facility] RDW 12.5 10.0 - [place] 15.0 % [facility] Platelet Count 429 150 - 450 [place] 10e9/L [facility] Diff Method Automated [place] Method [facility] % Neutrophils 42.4 % [facility] % Lymphocytes 46.3 % [facility] % Monocytes 6.9 % [facility] % Eosinophils 3.7 % [facility] % Basophils 0.5 % [facility] % Immature 0.2 % [facility] Granulocytes [facility] Nucleated RBCs 0 0 /100 [facility] Absolute 3.9 1.6 - 8.3 [facility] Neutrophil 10e9/L [facility] Absolute 4.3 0.8 - 5.3 [facility] Lymphocytes 10e9/L [facility] Absolute 0.6 0.0 - 1.3 [facility] Monocytes 10e9/L [facility] Absolute 0.3 0.0 - 0.7 [facility] Eosinophils 10e9/L [facility] Absolute 0.1 0.0 - 0.2 [place] Basophils 10e9/L [facility] Abs Immature 0.0 0 - 0.4 [facility] Granulocytes 10e9/L [facility] Absolute 0.0 [facility] Nucleated RBC [facility] Specimen Anatomical Collection Method Collection Time Receive d Time (Source) Location / / Volume Laterality Blood specimen 04/19/2016 9:25 PM 016 9:28 (specimen) CDT PM CDT Kyleigh Sandoval MD LAB - BLOOD ORDERABLES Performing Organization Address [facility] Phon e Number [place] [phone] [place] [phone] D dimer quantitative (04/19/2016 9:25 PM CDT) athologist Signature D Dimer 0.5 0.0 - 0.50 [facility] ug/ml [facility] Comment: This D-dimer assay is intended for use i n conjuntion with a clinical pretest probability assessment model to exclude pulmonary embolism (PE) and as an aid in the diagnosis of deep venous thrombo sis (DVT) in outpatients suspected of PE or DVT. The cut-off value is 0.5??g/mL [facility]. Specimen Anatomical Collection Method Collection Time Receive d Time (Source) Location / / Volume Laterality Blood specimen 04/19/2016 9:25 PM 016 9:28 (specimen) CDT PM CDT Kyleigh Sandoval MD LAB - BLOOD ORDERABLES Performing Organization Address City/[facility] Phon e Number M [facility] [address] [place], [place] [address] [phone] documented in this encounter Visit Diagnoses Diagnosis Hemoptysis Upper respiratory tract infection, unspe cified type documented in this encounter Additional Health Concerns Assessment Noted Time PHQ-9 Depression Total Score: 14 04/11/2016 7:23 AM CD T documented as of this encounter Care Teams Manager Product Support Relationship Specialty Start Date End Date Lalita Perez MD PCP - General Student in [facility] health 10/21/1404/21 care education/training program documented as of this encounter
--- OUTSIDE RECORDS SUMMARY | 2022-07-02 11:13 | XMS_ITS | Encounter Summary ---
:1990 Author Organization [place] Address [address] [place] [address] Care Team Providers Name Role Phone Lalita Perez MD Primary Care Provider Reason for Visit Reason Onset Date Comments Refill Request 07/10/2016 Encounter Details Date Type Department Care Team Description 07/10/2016 Refill [facility] Eag Lalita Toledo MD Refill Request [address] [facility] - [place] [phone] 99[address] [facility] [phone] [facility] [place] [address] (Wo rk) Social History [...] Kristie Kapadia RN - 07/10/2016 12:32 PM SWING FRAME GRINDER OPERATOR topamax Last Written Prescription Date: 06/16/16 Last Fill Quantity: 70, # refills: 0 [facility] prescribing provider: 06/16/16 BP Readings from [...] 70 tablet; Refill: 0 Prescription approved per [facility] Refill Protocol. Kristie Kapadia RN Message handled by Nurse Triage. G FRAME GRINDER OPERATOR documented in this encounter Plan of [...] documented as of this encounter Care Teams Perinatal Instructor Relationship Specialty Start Date End Date Lalita Perez MD PCP - General Student in [employer] [facility] 10/21/1404/21 care education/training program documented as of this encounter
--- OUTSIDE RECORDS SUMMARY | 2022-07-02 11:13 | XMS_ITS | Encounter Summary ---
:1988 Author Organization [place] Address [address] [place] [address] Care Team Providers Name Role Phone Lalita Perez MD Primary Care Provider Reason for Visit Reason Comments Headache Contraception Encounter Details Date Type Department Care Team Description 06/16/2016 Office Visit [facility] Blank Lemos Encounter for surveillance of other contraceptive (Primary Dx); Dev Camp MD Migraine without aura and without status migrainosus, not intractable [address] [address] [place] [address] [place] [address] [facility] [phone] [place] [address] Social History Tobacco Use [...] Comments Blood Pressure 106/76 06/16/2016 8:24 AM ETL SOFTWARE ENGINEER Pulse 86 06/16/2016 8:24 AM ETL SOFTWARE ENGINEER Temperature 37.1 ??C (98.8 ??F) 06/16/2016 8:24 AM ETL SOFTWARE ENGINEER Respiratory Rate - - Oxygen Saturation 98% 06/16/2016 8:24 AM ETL SOFTWARE ENGINEER Inhaled Oxygen Concentration - - Weight 89.8 kg (198 lb) 06/16/2016 8:24 AM ETL SOFTWARE ENGINEER Height - - Body Mass Index 33.99 04/29/2016 8:18 AM CDT documented in this encounter Patient Instructions Patient InstructionsBlank Lemos MD - 06/16/2016 8:39 AM CST Follow instructions carefully for topamax. SOFTWARE ENGINEER documented in this encounter Progress Notes Blank [...] carefully for topamax. Blank Lemos [facility]INE[facility] documented in this encounter Nursing Notes Maria [...] kg). BP completed using cuff size: regular SOFTWARE ENGINEER documented in this encounter Plan of [...] documented as of this encounter Care Teams Atomic Spectroscopist Relationship Specialty Start Date End Date Lalita Perez MD PCP - General Student in [facility] health 10/21/1404/21 care education/training program documented as of this encounter
--- OUTSIDE RECORDS SUMMARY | 2022-07-02 11:13 | XMS_ITS | Encounter Summary ---
:1990 Author Organization [place] Address [address] [place] [address] Care Team Providers Name Role Phone Lalita Perez MD Primary Care Provider Reason for Visit Reason Onset Date Comments Prior Auth - Medication 12/25/2016 Omeprazole 20mg caps Encounter Details Date Type Department Care Team Description 12/25/2016 Telephone [facility] Blank Lemos Prior Aut h - Medication Clinic Dev Camp MD (Omeprazole 20mg caps) [address] [place] [address] [facility] [address] [place] [address] [place] [address] [phone] Social History Tobacco Use Types Packs/Day Years [...] on Omeprazole 20 mg caps. 

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
--- OUTSIDE RECORDS SUMMARY | 2022-07-02 11:13 | XMS_ITS | Encounter Summary ---
:1990 Author Organization [place] Address [facility] [place] [address] Care Team Providers Name Role Phone Lalita Perez MD Primary Care Provider Reason for Visit Reason Onset Date Comments Refill Request 01/14/2017 escitalopram (LEXAPR O) 20 MG tablet 01/14/17 Encounter Details Date Type Department Care Team Description 01/14/2017 Refill [facility] Lalita Perez MD Refill Request Clinic [facility] (escitalopram (LEXAPRO) [address] [place] 3[address] [facility] 20 MG tablet 01/14/17) [facility] [address] [place] [address] [place] [address] [phone] Social History Tobacco Use Types Packs/Day Years [...] 01/15/2017 2:03 PM CDT Prescription approved per [facility] Refill Protocol. Vandana Sosa RN Telephone Encounter - Nini Figueroa - 01/14/2017 11:31 AM CDT Medication Detail Disp Refills Start End GERARDO escitalopram (LEXAPRO) 20 MG tablet 90 tablet 2 04/10/2016 No Sig: Take 1 tablet (20 mg) by mouth daily Last Office Visit with [facility] primary care provider: 12/22/16 Last PHQ-9 score [...] as of this encounter Care Teams Plant Assigner Relationship Specialty Start Date End Date Lalita Perez MD PCP - General Student in organized health 10/21/1404/21 care education/training program documented as of this encounter
--- OUTSIDE RECORDS SUMMARY | 2022-07-02 11:14 | XMS_ITS | Encounter Summary ---
:1990 Author Organization [place] Address [address] [place] [address] Care Team Providers Name Role Phone Lalita Perez MD Primary Care Provider Reason for Visit Reason Comments Anxiety Encounter Details Date Type Department Care Team Description 02/20/2015 Office Visit [facility] Aleksander Mercado (H) (Primary Dx); Dev Higgins MD GABRIEL (generalized anxiety disorder); [address] [email or web address] [address] [place] [address] [place] [address] [facility] [phone] [place] [address] Social History Tobacco Use [...] you feel ready to sleep. Published by [employer]. This content is reviewed periodically and is subject to change as new health information becomes available. The information is intended to inform and educate and is not a replacement for medical evaluation, advice, diagnosis or treatment by a healthcare professional. Developed by [employer]om [employer] RN, MI, and [facility]. ? 2009 [employer] and/or its affiliates. All Rights Reserved. Copyright [...] education information is given-insomnia Aleksander Mercado MD [facility] documented in this encounter Plan of Treatment [...] Comprehensive metabolic panel (02/20/2015 11:19 AM CDT) [facility] Method Time Signature Sodium 140 133 - 144 [place] mmol/L [facility] Potassium 4.0 3.4 - 5.3 [facility] mmol/L [facility] Chloride 107 94 - 109 [place] mmol/L [facility] Carbon Dioxide 27 20 - 32 [place] mmol/L [facility] Anion Gap 6 3 - 14 [place] mmol/L [facility] Glucose 87 70 - 99 [place] mg/dL [facility] Urea Nitrogen 11 7 - 30 [place] mg/dL [facility] Creatinine 0.72 0.52 - [facility] 1.04 CLINICS mg/dL [facility] GFR Estimate >90 >60 [place] Non GFR Calc mL/min/1. CLINICS 7m2 [facility] GFR Estimate If >90 >60 [place] Black GFR Calc mL/min/1. CLIN ICS 7m2 [facility] Calcium 9.0 8.5 - [facility] 10.1 CLINICS mg/dL [facility] Bilirubin Total 0.2 0.2 - 1.3 [place] mg/dL [facility] Albumin 3.5 3.4 - 5.0 [place] g/dL [facility] Protein Total 7.0 6.8 - 8.8 [place] g/dL [facility] Alkaline 88 40 - 150 [place] Phosphatase U/L [facility] ALT 21 0 - 50 [place] U/L [facility] AST 11 0 - 45 [place] U/L [facility] Specimen Anatomical Collection Method Collection Time Receive d Time (Source) Location / / Volume Laterality Blood specimen 02/20/2015 11:19 5 (specimen) AM CDT 11:20 AM CDT Aleksander Mercado MD LAB - BLOOD ORDERABLES Performing Organization Address City/State/ZIP Code Phon e Number [facility] [address] [place] [address] CBC with platelets differential (02/20/2015 11:19 AM CDT) [facility] gist Method Time Signature WBC 10.3 4.0 - [facility] 11.0 CLINICS 10e9/L DEV RBC Count 4.12 3.8 - 5.2 [place] 10e12/L [facility] Hemoglobin 12.8 11.7 - [facility] 15.7 g/dL [facility] Hematocrit 38.3 35.0 - [facility] 47.0 % CLINICS DEV MCV 93 78 - 100 [place] fl CLINICS DVE MCH 31.1 26.5 - [facility] 33.0 pg CLINICS DEV MCHC 33.4 31.5 - [facility] 36.5 g/dL [facility] RDW 12.1 10.0 - [facility] 15.0 % [facility] Platelet Count 409 150 - 450 [place] 10e9/L [facility] Diff Method Automated [place] Method [facility] % Neutrophils 54.8 % [facility] DEV % Lymphocytes 37.4 % [facility] DEV % Monocytes 5.7 % [facility] DEV % Eosinophils 1.9 % [facility] DEV % Basophils 0.2 % [facility] DEV Absolute 5.6 1.6 - 8.3 [place] Neutrophil 10e9/L CLINICS DEV Absolute 3.8 0.8 - 5.3 [place] Lymphocytes 10e9/L CLINICS DEV Absolute 0.6 0.0 - 1.3 [place] Monocytes 10e9/L CLINICS DEV Absolute 0.2 0.0 - 0.7 [place] Eosinophils 10e9/L [facility] Absolute 0.0 0.0 - 0.2 [place] Basophils 10e9/L [facility] Specimen Anatomical Collection Method Collection Time Receive d Time (Source) Location / / Volume Laterality Blood specimen 02/20/2015 11:19 02/20/ 5 (specimen) AM CDT 11:20 AM CDT Aleksander Mercado MD LAB - BLOOD ORDERABLES Performing Organization Address City/State/ZIP Code Phon e Number [facility] DEV [address] [place] [address] documented in this encounter Visit Diagnoses Diagnosis Bipolar I disorder (H) - Primary Bipolar I disorder, most recent episode (or current) unspecified GABRIEL (generalized anxiety disorder) Generalized anxiety disorder Insomnia Insomnia, unspecified documented in this encounter Care Teams Carrier Operator Relationship Specialty Start Date End Date Lalita Perez MD PCP - General Student in [facility] health 10/21/1404/21 care education/training program documented as of this encounter
--- OUTSIDE RECORDS SUMMARY | 2022-07-02 11:14 | XMS_ITS | Encounter Summary ---
:1990 Author Organization [place] Address [address] [place] [address] Care Team Providers Name Role Phone Lalita Perez MD Primary Care Provider Reason for Visit Reason Comments Anxiety Recheck Medication Encounter Details Date Type Department Care Team Description 11/28/2014 Office Visit [facility] Lalita Perez MD Phobia, flying (Primary Dx); [facility] [place] GABRIEL (generalized anxiety disorder) [address] [employer] [address] [place] [address] [place] [address] [place] [phone] [place] [address] Social History Tobacco Use Types Packs/Day [...] for recheck. Lalita Perez MD Med/Peds PGY-2 [facility] [place] STAFF NOTE: Patient seen with resident physician today. I was physically present during [place] portions of the visit and participated in the evaluation and management of the patient today. Aleksander Mercado MD documented in this encounter Nursing Notes Emliy Wiley - 11/28/2014 3:52 PM CDT Chief [...] disorder documented in this encounter Care Teams Information Systems Audit Manager Relationship Specialty Start Date End Date Lalita Perez MD PCP - General Student in [facility] health 10/21/1404/21 care education/training program documented as of this encounter
--- OUTSIDE RECORDS SUMMARY | 2022-07-02 11:14 | XMS_ITS | Encounter Summary ---
:1990 Author Organization [place] Address [address] [place] [address] Care Team Providers Name Role Phone Lalita Perez MD Primary Care Provider Reason for Visit Reason Onset Date Comments Refill Request 12/01/2014 ESCITALOPRAM 10MG Encounter Details Date Type Department Care Team Description 12/01/2014 Refill [facility] Eag Lalita Toledo MD Refill Request 1440 [facility] [place] (ESCITALOPRAM 10MG) [place] [phone] 2[address] [facility] [phone] [facility] [place] [address] (Wo rk) [...] disorder documented in this encounter Care Teams Bilingual Sales Assistant Relationship Specialty Start Date End Date Lalita Perez MD PCP - General Student in [facility] health 10/21/1404/21 care education/training program documented as of this encounter
--- OUTSIDE RECORDS SUMMARY | 2022-07-02 11:14 | XMS_ITS | Encounter Summary ---
:1990 Author Organization [place] Address [facility] [place] [address] Care Team Providers Name Role Phone Lalita Perez MD Primary Care Provider Encounter Details Date Type Department Care Team Description 04/09/[address] [facility] Eag an Routine general medical [address] [place] [address] care facility [phone] Social History Tobacco Use Types Packs/Day Years [...] athologist Signature Cholesterol 210 (H) <200 mg/dL [facility] Comment: LDL Cholesterol is the primary guide to therapy. The NCEP recommends further evaluation of: patients with cholesterol greater than 200 mg/dL if additional risk facto rs are present, cholesterol greater than 240 mg/dL, triglycerides greater than 1 50 mg/dL, or HDL less than 40 mg/dL. Triglycerides 234 (H) 0 - 150 mg/dL [place] [facility] HDL Cholesterol 50 (L) >50 mg/dL [place] [facility] LDL Cholesterol Calculated 113 0 - 129 mg/dL [facility] Comment: LDL Cholesterol is the primary guide to therapy: LDL-cholesterol goal in high risk patients is <100 mg/dL and in very high risk patients is <70 mg/dL. VLDL-Cholesterol 47 (H) 0 - 30 mg/dL [place] [facility] Cholesterol/HDL Ratio 4.2 0.0 - 5.0 [facility] Specimen Anatomical Collection Method Collection Time Receive d Time (Source) Location / / Volume Laterality Blood specimen 04/09/2015 8:24 AM 015 8:29 (specimen) CDT AM CDT Lalita Perez MD LAB - BLOOD ORDERABLES Performing Organization Address City/State/ZIP Code Phon e Number [facility] [address] [place] [address] Glucose (04/09/2015 8:24 AM CDT) athologist Signature Glucose 87 70 - 99 [facility] mg/dL [facility] Specimen Anatomical Collection Method Collection Time Receive d Time (Source) Location / / Volume Laterality Blood specimen 04/09/2015 8:24 AM 015 8:29 (specimen) CDT AM CDT Lalita Perez MD LAB - BLOOD ORDERABLES Performing Organization Address City/State/ZIP Code Phon e Number [facility] [address] [place] [address] documented in this encounter Visit Diagnoses Diagnosis Routine general medical examination at a health care facility documented in this encounter Care Teams Marketing Budget Analyst Relationship Specialty Start Date End Date Lalita Perez MD PCP - General Student in [facility] health 10/21/1404/21 care education/training program documented as of this encounter
--- OUTSIDE RECORDS SUMMARY | 2022-07-02 11:14 | XMS_ITS | Encounter Summary ---
:1990 Author Organization [place] Address [address] [place] [address] Care Team Providers Name Role Phone Joseph Montague MD Primary Care Provider Reason for Visit Reason Comments Physical Encounter Details Date Type Department Care Team Description 04/05/2015 Office Visit [facility] Joseph Montague MD Routine general medical examination at a health care facility (Primary Dx); [facility] - GABRIEL (generalized anxiety dis order); [address] Contraceptive management [place] [address] [facility] [phone] [facility] [place] [address] Social History Tobacco Use [...] this encounter Patient Instructions Patient InstructionsKiersten Oliveira, WATER RESOURCE ENGINEERING SPECIALIST - 04/05/2015 3:22 PM CDT We treva [...] HDL, LDL, TRIG, CHOLHDLRATIO in the last 95[address] hours. Reviewed orders with patient. Reviewed health maintenance and updated orders accordingly - Yes Mammo Decision Support: Mammogram not appropriate for this patient based on age. Last Mammo:No results found. History of abnormal Pap smear: NO - age 21-29 PAP every 3 years recommended All Histories reviewed and updated in [facility]. Past Medical History Diagnosis Date ??? Generalized [...] D/w Dr. Mccormick, attending Joseph Montague MD [facility] documented in this encounter Nursing [...] athologist Signature Cholesterol 210 (H) <200 mg/dL [facility] Comment: LDL Cholesterol is the primary guide to therapy. The NCEP recommends further evaluation of: patients with cholesterol greater than 200 mg/dL if additional risk facto rs are present, cholesterol greater than 240 mg/dL, triglycerides greater than 1 50 mg/dL, or HDL less than 40 mg/dL. Triglycerides 234 (H) 0 - 150 mg/dL [place] [facility] HDL Cholesterol 50 (L) >50 mg/dL [place] [facility] LDL Cholesterol Calculated 113 0 - 129 mg/dL [facility] Comment: LDL Cholesterol is the primary guide to therapy: LDL-cholesterol goal in high risk patients is <100 mg/dL and in very high risk patients is <70 mg/dL. VLDL-Cholesterol 47 (H) 0 - 30 mg/dL [facility] Cholesterol/HDL Ratio 4.2 0.0 - 5.0 [facility] Specimen Anatomical Collection Method Collection Time Receive d Time (Source) Location / / Volume Laterality Blood specimen 04/09/2015 8:24 AM 015 8:29 (specimen) CDT AM CDT Joseph Montague MD LAB - BLOOD ORDERABLES Performing Organization Address City/[facility]/ZIP Code Phon e Number [facility] [address] [place] [id number] Glucose (04/09/2015 8:24 AM CDT) P athologist Signature Glucose 87 70 - 99 [facility] mg/dL [facility] Specimen Anatomical Collection Method Collection Time Receive d Time (Source) Location / / Volume Laterality Blood specimen 04/09/2015 8:24 AM 015 8:29 (specimen) CDT AM CDT Joseph Montague MD LAB - BLOOD ORDERABLES Performing Organization Address City/[facility]/ZIP Code Phon e Number [facility] [address], [place] [address] PAP IMAGED THIN LAYER SCREEN (04/05/2015 12:00 AM CDT) Component Value Ref Test Analysis [facility]formed At [facility] Range Method Time Signature PAP NIL COPATH Copath Report COPATH Patient Name: RENA RESENDIZ MR#: [id number] Specimen #: [id number] Collected: 04/05/2015 Received: 04/06/2015 Reported: 04/09/2015 13:57 [...] CESARIO Pride (ASCP) Processed and screened at [facility] Ce randal [facility] CLINICAL HISTORY: Papanicolaou Test Limitations: ??Cervical cytology is a scre ening test with limited sensitivity; regular screening is critical for cancer prevention; Pap tests are primarily effective for the diagnosis/prevention of squamous cell carcinoma, not adenoca rcinomas or other cancers. TESTING LAB LOCATION: [address] ??[address] COLLECTION SITE: Client: ??[facility] Location: EAFP (R) Specimen (Source) Anatomical [...] management documented in this encounter Care Teams Telegraph Plant Maintainer Relationship Specialty Start Date End Date Joseph Montague MD PCP - General Student in organized health 10/21/1404/21 care education/training program documented as of this encounter
--- OUTSIDE RECORDS SUMMARY | 2022-07-02 11:14 | XMS_ITS | Encounter Summary ---
:1990 Author Organization [place] Address [address] [place] [address]. [place] [address] Care Team Providers Name Role Phone Lalita Perez MD Primary Care Provider Reason for Referral Mental Health Outpatient - Closed Specialty Diagnoses / Procedures Referred By Contact Refer red To Contact Diagnoses GABRIEL (generalized anxiety disorder) Lalita Perez MD [facility] - [address] [address] [place] [address] Referral ID Status Reason Start Date Expiration Date Visits Requ ested Visits Authorized [id number] Closed 10/17/2014 04/15/2015 1 1 Reason for Visit Reason Comments Anxiety Encounter Details Date Type Department Care Team Description 10/17/2014 Office Visit [facility] Lalita Perez MD GABRIEL (generalized Dev [facility] anxiety disorder) [address] (Primary Dx) [place] [address] [place]ER[place] RICE [phone] [place] [address] Social History Tobacco Use [...] Lindsey, attending Lalita Perez MD Med/Peds PGY-2 [facility] DEV STAFF NOTE: Patient seen [...] disorder documented in this encounter Care Teams Warm In Worker Relationship Specialty Start Date End Date Lalita Perez MD PCP - General Student in [facility] 10/21/1404/21 care education/training program documented as of this encounter
--- OUTSIDE RECORDS SUMMARY | 2022-07-02 11:14 | XMS_ITS | Encounter Summary ---
:1990 Author Organization [place] Address [address] [place] [address] Care Team Providers Name Role Phone Lalita Perez MD Primary Care Provider Reason for Referral Mental Health Outpatient - Closed Specialty Diagnoses / Procedures Referred By Contact Refer red To Contact Diagnoses Bipolar I disorder (H) Aleksander Mercado MD [facility] [address] [place] [address] [place] [phone] Referral ID Status Reason Start Date Expiration Date Visits Requ ested Visits Authorized [id number] Closed 2015 07/15/2015 1 1 Reason for Visit Reason Comments Anxiety Encounter Details Date Type Department Care Team Description 2015 Office Visit [facility] Aleksander Mercado Bipolar I d isorder (H) (Primary Dx); Dev Higgins MD GABRIEL (generalized anxiety disorder); [address] [place] [address] Contraceptive management [place]én[place] [address] [facility] [phone] [place]ÉNDE[place] [address] Social History Tobacco Use [...] on record= PHQ-9 SCORE [place] 2015 Total Score 25 ?? Amount of [...] for annual and pap Aleksander Mercado MD [facility] DEV documented in this encounter Plan of Treatment Scheduled Referrals Name Type Priority Associated Diagnoses Order S [facility] MENTAL HEALTH REFERRAL Referral Routine Bipolar I disorder (H) Ordered: 2015 documented as of this encounter Visit Diagnoses Diagnosis Bipolar I disorder (H) - Primary Bipolar I disorder, most recent episode (or current) unspecified GABRIEL (generalized anxiety disorder) Generalized anxiety disorder Contraceptive management Unspecified contraceptive management documented in this encounter Care Teams Human Factors Ergonomist Relationship Specialty Start Date End Date Lalita Perez MD PCP - General Student in [facility] health 10/21/1404/21 care education/training program documented as of this encounter
--- OUTSIDE RECORDS SUMMARY | 2022-07-02 11:14 | XMS_ITS | Encounter Summary ---
:1990 Author Organization [place] Address [address] [place] [address] Care Team Providers Name Role Phone Lalita Perez MD Primary Care Provider Reason for Visit Reason Onset Date Comments Panel Management 01/11/2015 Encounter Details Date Type Department Care Team Description 01/11/2015 Telephone [facility] E[facility] Lalita Toledo MD Panel Management [address] [facility]INICS - [place] [address] [facility] [phone] [facility] [place] [address] [...] Review Date of last visit with a [facility] provider: on 11/28/14. Date of next visit with a [facility] provider: None. Problem List Patient Active Problem [...] on filedocumented in this encounter Care Teams Product Info Specialist Relationship Specialty Start Date End Date Lalita Perez MD PCP - General Student in [facility] 10/21/1404/21 care education/training program documented as of this encounter
--- NOTE | 2022-07-02 16:57 | P.LACCB_ITS ---
Consult Note - Mom Date of Visit Date of visit: 07/02/22 networks computer consultant: Gema rBown Visit Code: Visit Patient's Information Phone number: [phone] : 2 Para: 2 Allergies tetracycline Adverse Reaction (Mild, Verified 06/19/22 14:36) Dizziness, blurred vision, upset stomach Mother's Medical History: Medical History (Updated 06/24/22 @ 00:01 by ) hemorrhage anxiety, depression Work Plans: homemaker Delivery Information Delivery type: Repeat Section Weeks Gestation: 38.0 Gestational Age: AGA Weight: 3.59 kg Discharge Weight: 3.352 kg Baby's Information Baby's Age at Visit: 3 weeks Baby's Provider or Clinic: Dr. Alicea Jaundice: No Reason for Consult Reason for Consult: difficulty latching on the left side Past Experience Past Experience: No (didn't breastfeed her older daughter (pumped and gave EBM for a short time)) Current Frequency of Day Feedings: every 2 - 3 hours around the clock Both Breasts: Yes (mom offers, has trouble on the left side) Suck: fairly aggressive Latch: not very wide on the left Length of Time: 20 - 30 minutes/side Pumping Pumping: Yes (mom uses a hand pump on occasion) Quantity Pumped: 2 - 2.5 oz total Supplementing EMB Supplement: Yes (supplemetns with 2 oz EBM or formula after every night nursing session) Formula Supplement: Yes Baby Elimination Number of Wet Diapers a Day: at least 6 Number of BM a Day: at least 6 Breast/Nipple Condition Breast Information: WNL Maternal Nipple Condition - Left: Common Nipple Maternal Nipple Condition - Right: Common Nipple Sore Nipples: No Onsite Pre-Feed weight: 3.792 kg Post-Feed weight: 3.828 kg Milk Transferred (mL): 36 Pre-Nursing Left Nipple: Within Normal Limits Pre-Nursing Right Nipple: Within Normal Limits Post-Nursing Left Nipple: Within Normal Limits Post-Nursing Right Nipple: Within Normal Limits Assessments/Interventions Assessments/Interventions: Met with mom and baby for consult.? Mom reports baby nurses fairly well on the right, but she has difficulty latching her on the left.? Baby is nursing every 2 - 3 hours and mom attempts for 20 - 30 minutes/side.? She's pumping on occasion (especially when the left side is uncomfortable) and gives baby about 2 oz EBM or formula prn during the day and after every nursing session overnight.? States she doesn't like to pump and when using the electric pump with her first baby she felt rage so this time is using a hand pump.? Breasts WNL- symmetrical with rounded lower quadrants, intramammary distance is < 1.5 inches.? Nipples are everted and don't flatten or retract with compression; no damage noted.? The left nipple is a little larger then the right. Baby has gained 22 grams since her visit with the PCP on 07/01 and is 6.7 oz above BW at 19 DOL.? Mom denies any caput/cephalohematoma at delivery.? States baby has equal ROM when turning her head and moving her extremities.? Her palate is WNL and her upper frenulum isn't tight.? She wouldn't suck on a finger, but the tongue easily extends past the gum line and has good lateral movement.? Per mom baby always has her tongue out of her mouth and this was noticed once she was asleep in her car seat after the session.? 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 The lower frenulum wasn't visualized.? Mom latched baby to the left side and it was a shallow latch, mom was uncomfortable.? When she was verbally coached to support her breast in the C shape, point her nipple to baby's nose, and wait for her to open wide she was able to get a deeper latch and was more comfortable.? Baby nursed, but needed a fair amount of stimulation for about 20 minutes; mom was shown how to take her off the breast to protect her nipple.? Mom offered the right side but baby was very sleepy and didn't nutritively suckle despite multiple attempts to keep her awake.? She transferred 36 ml. Plan: 1. Continue to breastfeed ALD (usually every 2 - 4 hours).? Continue to offer both sides and use the ideas above to get a deep latch.? Work to keep her awake and actively nursing, it's ok to keep the nursing session to around 30 minutes total. 2. Reviewed with mom that pumping will help her keep her supply up so encouraged her to do it after as many feedings as possible, balancing her mental health.? 3. Supplement baby with EBM or formula after feedings if she seems unsatisfied.? Encouraged paced feeding and mom practiced in clinic. 4. F/U with PCP for a 2 month WCC and in prn.? 5. Encouraged her to consider Baby Talk. Meds Home Medications and Allergies Home Medications Medication Instructions Recorded Confirmed Type acetaminophen 500 mg tablet 500 mg PO Q6H 02/14/22 06/13/22 History buspirone 7.5 mg tablet 30 mg PO BID 02/14/22 06/14/22 History docusate sodium 100 mg capsule 100 mg PO DAILY PRN 02/14/22 06/13/22 History escitalopram oxalate 20 mg tablet 20 mg PO DAILY 02/14/22 06/13/22 History 103-folic acid 400 1 tab PO DAILY 05/09/22 06/13/22 History mcg-omeg3 32.5 mg-dha-fish oil chew tablet ( with DHA and Folic Acid) Allergies Allergy/AdvReac Type Severity Reaction Status Date / Time tetracycline AdvReac Mild Dizziness, Verified 06/19/22 14:36 blurred vision, upset stomach
== END 2022-07-02 11:06 | disposition home or self-care (01) ==
LOC: OB LAC 11:06
PROVIDERS: PCP Nurse Practitioner Family; Visit Provider Family Medicine
DX: Z39.1 Encounter for care and examination of lactating mother (principal)
CPT/HCPCS: 99211

== ENCOUNTER 2023-09-03 15:55 | Outpatient (CLI) | payer BC, SELFPAY ==
--- OUTSIDE RECORDS SUMMARY | 2023-09-03 15:58 | XMS_ITS | Referral Summary ---
Author Name Unknown Organization [place] Address [address] [place] [address] Care Team Providers Care Grain Shipper Name Role Phone Blank Lemos MD Primary Care Provider [phone] Blank Lemos MD Unavailable [phone] Allergies Active Allergy Reactions Criticality Noted Date Comments Doxycycline Other (See Comments) ,Nausea and Vomiting 06/12/2008 Medications Medication Sig Dispensed Refills Start Date End Date Status Vit-Fe Fumarate-FA ( MULTIVITAMIN W/IRON) 27-0.8 MG tablet Take 1 tablet by mouth daily 0 Active escitalopram (LEXAPRO) 20 MG tabletIndications:Gene ralized anxiety disorder,Bipolar I disorder (H) Take 1 tablet (20 mg) by mouth daily 90 tablet 1 08/27/2020 Active norethindrone (MICRONOR) 0.35 MG tabletIndications:Rout ine follow-up Take 1 tablet (0.35 mg) by mouth daily 84 tablet 4 11/06/2020 Active Active Problems Problem Noted Date Diagnosed Date Morbid obesity 10/18/2020 Indication for care in labor or delivery 021 Uterine size-date discrepancy in third trimester 09/24/2020 Overview: Growth ultrasound 52nd percentile at 36w Excessive weight gain affecting 2020 Overview: 35 lbs at 37 weeks High-risk , third trimester 08/07/2020 Overview: Clinic/Hospital: [facility] Partner Name: Micah Ultrasound predicts sex: female Childrens names/ages: n/a Previous labor experiences: n/a Waterbirth (interest, declined, ineligible): n/a Level of education/occupation: currently unemployed d/t COVID Pertinent History: Bipolar, obesity class II PP contraception: minipill Hx PPD/Depression/Anxiety: Bipolar with anxiety & depression Peds provider: [facility] Plans for labor pain management: Open to [...] declines At risk for venous thromboembolism (VTE) 020 Overview: Plan for PP prophylaxis Elevated blood pressure affe cting in third trimester, antepartum 08/07/2020 Overview: Elevated blood pressure in ED 07/09-- repeat WNL Anxiety during in second trimester, an tepartum 05/21/2020 Moderate episode of recurrent major depressive d isorder 12/21/2019 ASCUS with positive high risk HPV cervical 09/22 Overview: 09/22/18 LSIL, +HR HPV, not 16/18. Plan colp 10/07/18 [place]- No lesions seen, no Bx taken. Plan 1 yr co-test 02/24/20 ASCUS pap, + HR HPV (not 16 or 18). Pt about 10 weeks . Plan colp without biopsies due by 05/26/20. 03/05/20 CCT tracking. 03/06/20 pt notified 04/09/20 colp visually MIL I-II. Plan: pap . EDC 09/27/20 11/06/20 NIL, +HR HPV, not 16/18. Plan [place] bef 02/06/21 11/13/20 Left msg and MyChart result letter- read by pt 01/08/21 Reminder MyChart 02/05/21 [place] not done. Tracking updated for 6 mo colp/pap due 05/09/21. 04/25/21 Reminder [place]- read by pt 05/27/21 Lost to follow-up for pap tracking Migraine without aura and wi thout status migrainosus, not intractable 06/16/2016 BMI 38.0-38.9,adult 04/10/2016 Insomnia 02/20/2015 Generalized anxiety disorder 11/28/2014 Acne 12/06/2013 Bipolar affective disorder 12/02/2013 Seasonal allergies 04/04/2013 Resolved Problems Problem Noted Date Diagnosed Date Resolved Date Tobacco abuse 09/22/2018 08/07/2020 Immunizations Name Administration Dates Next Due TD,PF 7+ (Tenivac) 10/08/2008,01/30/1998 TDAP (Adacel,Boostrix) 07/09/2020 TDAP Vaccine (Adacel) 04/10/2016 Social History Tobacco Use Types Packs/Day Years Used Date Smoking Tobacco: Former Cigarettes 0.3 8 Q uit: 06/24/2019 Smokeless Tobacco: Never Tobacco Cessation:Counseling Given: No Alcohol Use Standard Drinks/Week Comments No 0 (1 standard drink = 0.6 oz pur e alcohol) Overall Financial Resource Strain (CARDIA) Answe r Date Recorded How hard is it for you to pa y for the very basics like food, housing, medical care, and heating? Not hard at all 02/07/2020 PHQ-2 Answer Date Recorded PHQ-2 Score 0 11/06/2020 Hunger Vital Sign Answer Date Recorded Within the past 12 months, y ou worried that your food would run out before you got the money to buy more. Never true 02/07/20 20 Within the past 12 months, t he food you bought just didn't last and you didn't have money to get more. Never true 02/07/2020 PRAPARE - Transportation Answer Date Re corded In the past 12 months, has l ack of transportation kept you from medical appointments or from getting medications? No 01/10 In the past 12 months, has l ack of transportation kept you from meetings, work, or from getting things needed for daily living? No 02/07/2020 Adolescent Education Answer Date Record ed Getting School Help Needed Not on file 05/01 Education Answer Date Recorded What is the highest level of school you have completed or the highest degree you have received? High school graduate 02/07/2020 Sex and Gender Information Value Date Recorded Sex Assigned at Not on file Gender Identity Not on file Sexual Orientation Not on file Last Filed Vital Signs Vital Sign Reading Time Taken Comments Blood Pressure 100/60 11/06/2020 2:30 PM CDT Pulse 76 09/30/2020 9:40 AM PERIOPERATIVE EDUCATOR Temperature 36.8 ??C (98.3 ??F) 10/18/2020 2:16 PM CS T Respiratory Rate 18 09/30/2020 9:40 AM PERIOPERATIVE EDUCATOR Oxygen Saturation 98% 09/29/2020 9:00 AM PERIOPERATIVE EDUCATOR Inhaled Oxygen Concentration - - Weight 104.8 kg (231 lb) 11/06/2020 2:30 PM CDT Height 160 cm (5' 3) 11/06/2020 2:30 PM CDT Body Mass Index 40.92 11/06/2020 2:30 PM CDT Plan of Treatment Not on file Advance Directives For more information, please contact: [phone] Latest Code Status on File Code Status Date Activated Date Inactivated Comments Full Code 09/29/2020 9:48 AM 09/30/2020 5:08 PM All b asic and advanced life-sustaining interventions are performed as appropriate Question Answer Comments Code status determined by: Discussion with patient/ legal decision maker Code Status History Code Status Date Activated Date Inactivated Comments Full Code 09/28/2020 7:18 PM 09/28/2020 11:17 PM All basic and advanced life-sustaining interventions are performed as appropriate Question Answer Comments Code status determined by: Discussion with patient/ legal decision maker Care Teams Grain Shipper Relationship Specialty Start Date End Date Blank Lemos MD [address] [facility] [place] [address] PCP - General Internal Medicine 04/22/18 Blank Lemos MD [address] [place] [address] [place] [id number] Assigned PCP 10/04/22
--- OUTSIDE RECORDS SUMMARY | 2023-09-03 15:58 | XMS_ITS | Encounter Summary ---
Author Name Unknown Organization [place] Address [address] [place] [address] Care Team Providers Care Teaching Manager Name Role Phone Blank Lemos MD Primary Care Provider [phone] Blank Lemos MD Unavailable Kathleen Lacy CNM Unavailable [phone] Anabell Shannon Unavailable Unavailable Rand Kam APRN CNM Unavailable Sharita Frias MD Unavailable Kathleen Lacy CNM Unavailable [phone] Kathleen Lacy CNM Unavailable [phone] Sharita Frias MD Unavailable Blank Lemos MD Unavailable [phone] Reason for Visit * Reason Onset Date Comments MyChart Communication 12/10/2020 diarrhea Encounter Details Date Type Department Care Team (Latest Contact Info) Description 12/10/2020 [facility] Dev [address] [place] [address] [place] [address] [place] [address] [place] [address] MyChart Communication (diarrhea) Social History Tobacco Use Types Packs/Day Years Used Date Smoking Tobacco: Former Cigarettes 0.3 8 Q uit: 06/24/2019 Smokeless Tobacco: Never Alcohol Use Standard [...] things needed for daily living? No 02/07/2020 Education Answer Date Recorded What is the highest level of school you have completed or the highest degree you have received? High school graduate 02/07/2020 Sex and Gender Information Value Date Recorded Sex Assigned at Not on file Gender Identity Not on file Sexual Orientation Not on file documented as of this encounter Miscellaneous Notes * Telephone Encounter - Anabell Shannon - 12/10/2020 8:52 AM CDT Forwarded it to [facility] to get there thoughts. Anabell Shannon EMT 8:54 AM on December 10, 2020 Clinic Health Guide [phone] documented in this encounter Plan of Treatment Not on file documented as of this encounter Visit Diagnoses Not on filedocumented in this encounter Additional Health Concerns Assessment Noted Time PHQ-9 Depression Total Score: 2 11/07/19 21 3:02 PM CDT documented as of this encounter Care Teams Teaching Manager Relationship Specialty Start Date End Date Blank Lemos MD [address] [facility] [place] [address] PCP - General Internal Medicine 04/22/18 Blank Lemos MD [address] [facility] [place] [address] Assigned PCP 04/25/18 07/25/22 Kathleen Lacy CNM [address] [place] [address] Assigned OBGYN Provider 06/01/20 Anabell Shannon Personal Advocate & Liaison (PAL) 10/25/20 11/23/22 Rand Kam APRN CNM [facility] [address] [place] [address] 160 [place] [address] Assigned OBGYN Provider 11/24/21 Sharita Frias MD [address] [address] Assigned OBGYN Provider 01/04/22 Kathleen Lacy CNM [address] [place] [address] Assigned OBGYN Provider 12/29/21 Kathleen Lacy CNM [address] [place] [address] Assigned OBGYN Provider 01/18/22 Sharita Frias MD [address] [place] [address] Assigned OBGYN Provider 01/25/22 Blank Lemos MD [address] [facility] [place] [address] Assigned PCP 10/04/22 documented as of this encounter
--- OUTSIDE RECORDS SUMMARY | 2023-09-03 15:58 | XMS_ITS | Encounter Summary ---
Author Name Unknown Organization [place] Address [facility] [place] [address] Care Team Providers Care Health Advisor Name Role Phone Blank Lemos MD Primary Care Provider [phone] Blank Lemos MD Unavailable [phone] Kathleen Lacy CNM Unavailable [phone] Anabell Shannon Unavailable Unavailable Rand Kam APRN CNM Unavailable Sharita Frias MD Unavailable Kathleen Lacy CNM Unavailable [phone] Kathleen Lacy CNM Unavailable [phone] Sharita Frias MD Unavailable Blank Lmeos MD Unavailable [phone] Encounter Details Date Type Department Care Team (Late st Contact Info) Description 01/08/2021 [facility] Medical Advice [address] [place] [address] Michelle Murrieta RN Social History Tobacco Use Types Packs/Day Years Used Date Smoking Tobacco: Former Cigarettes 0.3 8 Q uit: 06/24/2019 Smokeless Tobacco: Never Alcohol Use Standard Drinks/Week Comments No 0 (1 standard drink = 0.6 oz pur e alcohol) Overall Financial Resource Strain (CARDIA) Tomye r Date Recorded How hard is it [...] as of this encounter Care Teams Health Advisor Relationship Specialty Start Date End Date Blank Lemos MD [address] [place] [address] [place] [address] PCP - General Internal Medicine 04/22/18 Blank Lemos MD [address] [place] [address] [place] [address] Assigned PCP 04/25/18 07/25/22 Kathleen Lacy CNM [address] [place] [address] Assigned OBGYN Provider 06/01/20 Anabell Shannon Personal Advocate & Liaison (PAL) 10/25/20 11/23/22 Rand Kam APRN CN [facility] [address] [facility] 160 [place] [address] Assigned OBGYN Provider 11/24/21 Sharita Frias MD [address], [address] [address] Assigned OBGYN Provider 01/04/22 Kathleen Lacy CNM [address] [place] [address] Assigned OBGYN Provider 12/29/21 Kathleen Lacy CNM [address] [place] [address] Assigned OBGYN Provider 01/18/22 Sharita Frias MD [address], [address] [address] Assigned OBGYN Provider 01/25/22 Blank Lemos MD [address] [facility] [place] [address] Assigned PCP 10/04/22 documented as of this encounter
--- OUTSIDE RECORDS SUMMARY | 2023-09-03 15:58 | XMS_ITS | Clinical Summary ---
Author Name Unknown Organization [place] Address [address] [place] [address] Care Team Providers Care Cosmetic Dentist Name Role Phone Blank Lemos MD Primary Care Provider [phone] Blank Lemos MD Unavailable [phone] Allergies Active Allergy Reactions Criticality Noted Date [...] High-risk , third trimester 08/07/2020 Overview: Clinic/Hospital: [facility] Partner Name: Micah Ultrasound predicts sex: [...] +HR HPV, not 16/18. Plan colp 10/07/18 [place]- No lesions seen, no Bx taken. Plan 1 yr co-test 02/24/20 ASCUS pap, + HR HPV (not 16 or 18). Pt about 10 weeks . Plan colp without biopsies due by 05/26/20. 03/05/20 CCT tracking. 03/06/20 pt notified 04/09/20 colp visually MIL I-II. Plan: pap . EDC 09/27/20 11/06/20 NIL, +HR HPV, not 16/18. Plan [place] bef 02/06/21 11/13/20 Left msg and MyChart result letter- read by pt 01/08/21 Reminder MyChart 02/05/21 [place] not done. Tracking updated for 6 mo [...] TDAP (Adacel,Boostrix) 07/09/2020 TDAP Vaccine (Adacel) 04/10/2016 Family History Medical History Relation Comments Breast [...] PM CDT Pulse 76 09/30/2020 9:40 AM ATG JAVA DEVELOPER Temperature 36.8 ??C (98.3 ??F) 10/18/2020 2:16 PM CS T Respiratory Rate 18 09/30/2020 9:40 AM ATG JAVA DEVELOPER Oxygen Saturation 98% 09/29/2020 9:00 AM ATG JAVA DEVELOPER Inhaled Oxygen Concentration - - Weight 104.8 kg (231 lb) 11/06/2020 2:30 PM CDT Height 160 cm (5' 3) 11/06/2020 2:30 PM CDT Body Mass Index 40.92 11/06/2020 2:30 PM CDT Plan of Treatment Health Maintenance Due Date Last Done Comments ADVANCE CARE PLANNING 1990 HEPATITIS B IMMUNIZATION (1 of 3 - 3-dose series) 1990 HEPATITIS C SCREENING 01/15/2006 ANNUAL REVIEW OF HM ORDERS 01/04/2021 01/05/2020 COLPOSCOPY 02/06/2021 04/09/2020 GABRIEL ASSESSMENT 08/27/2021 08/27/2020, 01/09, 12/08/2019, Additional history exists YEARLY PREVENTIVE VISIT 12/27/2021 12/28/19, 09/22/2018, 04/10/2016, Additional history exists HPV TEST 12/25/2022 12/25/2021, 12/08, 11/06/2020, Additional history exists PAP 12/25/2022 12/25/2021, 12/08, 11/06/2020, Additional history exists COVID-19 Vaccine ( season) 2023 07/26/2021, 12/08/2020, 11/10/2020 INFLUENZA VACCINE (#1) 2023 09/22/2018 (Declin ed) DTAP/TDAP/TD IMMUNIZATION (5 - Td or Tdap) 07/09/2030 07/09/2020, 04/10/2016, 10/08/2008, Additional history exists MIGRAINE ACTION PLAN Completed 09/22/2018 HIV SCREENING Completed 02/20/2020, 09/10 (Declined) HPV FOLLOW-UP Discontinued 12/25/2021, 10/10, 02/24/2020, Additional history exists PAP FOLLOW-UP Discontinued 12/25/2021, 12/08, 11/06/2020, Additional history exists HPV IMMUNIZATION Aged Out No longer e ligible based on patient's age to complete this topic IPV IMMUNIZATION Aged Out No longer e ligible based on patient's age to complete this topic MENINGITIS IMMUNIZATION Aged Out No l onger eligible based on patient's age to complete this topic Pneumococcal Vaccine: Pediatrics (0 to 5 Years) and At-Risk Patients (6 to 64 Years) Aged Out No longer eligible based on patient's age to complete this topic RSV MONOCLONAL ANTIBODY Aged Out No l onger eligible based on patient's age to complete this topic Advance Directives For more information, please contact: [phone] Latest Code Status on File Code Status [...] with patient/ legal decision maker Care Teams Cosmetic Dentist Relationship Specialty Start Date End Date Blank Lemos MD [address] [place] [address] [place] [address] PCP - General Internal Medicine 04/22/18 Blank Lemos MD [address] [place] [address] [place] [address] Assigned PCP 10/04/22
--- OUTSIDE RECORDS SUMMARY | 2023-09-03 15:58 | XMS_ITS | Clinical Summary ---
Author Name Unknown Organization [facility] Address [place], [place] [address] Care Team Providers Care Manometer Technician Name Role Phone Evelyn Arnett NP Primary Care Provider [phone] Allergies Active Allergy Reactions Criticality Noted Date Comments Doxycycline Nausea And Vomiting,Dizziness 06/12 Medications Medication Sig Dispensed Refills Start Date End Date Status ondansetron (ZOFRAN ODT) 4 mg disintegrating tablet 0 11/25/2021 Act yakelin SUMAtriptan (IMITREX) 50 mg tabletIndications:Mens trual migraine without status migrainosus, not intractable Take 1 Tablet (50 mg) by mouth 2 times daily if needed for Migraine. Give at minimum 2hrs apart. Max Dose: 200mg per 24hrs. 10 Tablet 3 10/22/2022 Active busPIRone (BUSPAR) 30 mg tabletIndications:Gene ralized anxiety disorder Take 1 Tablet (30 mg) by mouth two times daily. 180 Tablet 1 03/13/2023 Active sertraline (ZOLOFT) 100 mg tabletIndications:Gene ralized anxiety disorder,Depression, recurrent (HC) Take 1.5 Tablets (150 mg) by mouth every morning. 135 Tablet 1 07/29/2023 Active Active Problems Problem Noted Date Diagnosed Date Morbid obesity 10/18/2020 Moderate episode of recurrent major depressive d isorder 12/21/2019 ASCUS with positive high risk HPV cervical 09/22 Overview: 09/22/18 [place], +HR HPV, not 16/18. Plan colp 10/07/18 [place]- No lesions seen, no Bx taken. Plan 1 yr co-test 02/24/20 ASCUS pap, + HR HPV (not 16 or 18). Pt about 10 weeks . Plan colp without biopsies due by 05/26/20. 03/05/20 CCT tracking. 03/06/20 pt notified 04/09/20 colp visually MIL I-II. Plan: pap . EDC 09/27/20 11/06/20 NIL, +HR HPV, not 16/18. Plan [place] bef 02/06/21 11/13/20 Left msg and MyChart result letter- read by pt 01/08/21 Reminder MyChart 02/05/21 [place] not done. Tracking updated for 6 mo colp/pap due 05/09/21. 04/25/21 Reminder MyChart- read by pt 05/27/21 Lost to follow-up for pap tracking Migraine without aura and wi thout status migrainosus, not intractable 06/16/2016 Insomnia 02/20/2015 Generalized anxiety disorder 11/28/2014 Acne 12/06/2013 Seasonal allergies 04/04/2013 Migraine 01/05/2013 Resolved Problems Problem Noted Date Diagnosed Date Resolved Date Bipolar affective disorder 12/02/2013 0 12/27/2020 Encounters Date Type Department Care Team Description 07/29/2023 3:50 PM EVENT SET UP SPECIALIST Telemedicine [facility] [address] [facility] [place] [address] Evelyn Arnett, MARGARITA Medication Management; Telehealth 07/28/2023 Travel from Last 3 Months Immunizations Name Administration Dates Next Due COVID-19 vaccine (V[employer]al[employer] NTServiceful 30mcg/0.3mL) [facility] [place] 07/26/2021,12/08/2020,11/10/2020 Td (Age >=7 Years) 10/08/2008,01/30/1998 Tdap 07/09/2020,04/10/2016 Family History Medical History Relation Name Comments [...] Years Used Date Smoking Tobacco: Former Cigarettes 0.5 13 1 08/2005 - 06/2019 Smokeless Tobacco: Never Tobacco Cessation:Ready to Q uit: No; Counseling Given: Yes Alcohol Use Standard Drinks/Week Comments No 0 (1 standard drink = 0.6 oz pur e alcohol) PHQ-2 Answer Date Recorded PHQ-2 TOTAL SCORE 0 07/28/2023 Social Connections Answer Date Recorded Frequency of Communication with Friends and Fami ly 0 09/14/2022 Financial Resource Strain Answer Date R ecorded Difficulty of Paying Living Expenses 3 09/14/2022 Difficulty of Paying Living Expenses Not on file 09/14/2022 Food Insecurity Answer Date Recorded Worried About Running Out of Food in the Last Ye ar 1 09/14/2022 Transportation Needs Answer Date Record ed Lack of Transportation (Medical) 1 09/14/2022 Housing Stability Answer Date Recorded Unable to Pay for Housing in the Last Year 1 09/14/2022 Sex and Gender Information Value Date Recorded Sex Assigned at Not on file Gender Identity Not on file Sexual Orientation Not on file Obstetrics History Para Term AB IAB SAB Ectopic Multiple Livin g Live Births 2 1 1 1 1 Date Outcome GA Total Labor Labor/2nd/3rd Weight Sex Delivery Anes PTL Arielle A1 A5 Name Cl in 09/28 Term 40w 1d 3.6 kg (7 lb 15 oz) F CS-LTranv Epidu ral,S huang N Joana ng 5 8 Evely n Wendy Swann luis e DO Complications:None Delivery Location:[facility] ( MAIN OR) Last Filed Vital Signs Vital Sign Reading Time Taken Comments Blood Pressure 110/68 10/22/2022 2:58 PM CDT Pulse 72 10/22/2022 2:58 PM CDT Temperature 36.9 ??C (98.4 ??F) 10/01/2022 1:37 PM CS T Respiratory Rate 15 01/02/2022 1:19 PM CDT Oxygen Saturation 97% 09/16/2021 3:22 PM EVENT SET UP SPECIALIST Inhaled Oxygen Concentration - - Weight 109.8 kg (242 lb) 10/22/2022 2:58 PM CDT Height 160 cm (5' 3) 10/22/2022 2:58 PM CDT Body Mass Index 42.87 10/22/2022 2:58 PM CDT Plan of Treatment Health Maintenance Due Date Last Done Comments HIV for age 15-65 01/15/2003 Hepatitis C screening for age 18-79 01/15/2006 COVID-19 vaccine series (2022- season) 2023 05/29/2022, 07/26/2021, 12/08/2020, Additional history exists Influenza for age 9-49 04/10/2023 BMI (ht and wt on same day) for age 18+ 10/23/2023 10/22/2022, 09/18/2022, 01/02/2022, Additional history exists Depression screening for age 12+ 07/29/2024 07/29/2023, 04/24/2023, 03/13/2023, Additional history exists Pap test for age 21-65 12/25/2024 , 12/25/2021, 11/07/2020 ([facility] Additional history exists Tetanus booster 07/09/2030 07/09/2020, 08/2015, 10/08/2008, Additional history exists Tdap Completed 07/09/2020, 04/10/2016 Pneumococcal series for age 6-64 Aged Out No longer eligible based on patient's age to complete this topic Additional Health Concerns Infection Onset Date Last Indicated Rule-Out C.diff 12/12/2020 12/12/2020 Advance Directives Latest Code Status on File Code Status Date Activated Date Inactivated Comments Full Code 12/26/2011 7:11 AM 12/26/2011 2:47 PM Care Teams Manometer Technician Relationship Specialty Start Date End Date Evelyn Arnett, RN ANGIO[employer]HY [address] [place] [address] PCP - General Nurse Practitioner 12/27/20
--- OUTSIDE RECORDS SUMMARY | 2023-09-03 15:58 | XMS_ITS | Encounter Summary ---
Author Name Unknown Organization [place] Address [facility] [place] [address] Care Team Providers Care Hedge Trimmer Name Role Phone Blank Lemos MD Primary Care Provider [phone] Blank Lemos MD Unavailable [phone] Kathleen Lacy CNM Unavailable [phone] Anabell Shannon Unavailable Unavailable Rand Kam APRN CNM Unavailable Sharita Frias MD Unavailable Kathleen Lacy CNM Unavailable Kathleen Lacy CNM Unavailable [phone] Sharita Frias MD Unavailable Blank Lemos MD Unavailable Encounter Details Date Type Department Care Team (Late st Contact Info) Description 04/25/2021 [facility] Medical Advice [address] [place] [address] Michelle Murrieta RN Social History [...] documented as of this encounter Care Teams Hedge Trimmer Relationship Specialty Start Date End Date Blank Lemos MD [address] [place] [address] [place] [address] PCP - General Internal Medicine 04/22/18 Blank Lemos MD [address] [place] [address] [place] [address] Assigned PCP 04/25/18 07/25/22 Kathleen Lacy CNM [address] [place] [address] Assigned OBGYN Provider 06/01/20 Anabell Shannon Personal Advocate & Liaison (PAL) 10/25/20 11/23/22 Rand Kam APRN CN [facility] [address] [facility] 160 [place] [address] Assigned OBGYN Provider 11/24/21 Sharita Frias MD [address], [address] [address] Assigned OBGYN Provider 01/04/22 Kathleen Lacy CNM [address] [place] [address] Assigned OBGYN Provider 12/29/21 Kathleen Lacy CNM [address] [place] [address] Assigned OBGYN Provider 01/18/22 Sharita Frias MD [address], [address] [address] Assigned OBGYN Provider 01/25/22 Blank Lemos MD [address] [facility] [place] [address] Assigned PCP 10/04/22 documented as of this encounter
--- OUTSIDE RECORDS SUMMARY | 2023-09-03 15:58 | XMS_ITS | Encounter Summary ---
Author Name Unknown Organization [place] Address [facility] [place] [address] Care Team Providers Care Cabinetmaker Apprentice Name Role Phone Blank Lemos MD Primary Care Provider [phone] Blank Lemos MD Unavailable Kathleen Lacy CNM Unavailable [phone] Anabell Shannon Unavailable Unavailable Rand Kam APRN CNM Unavailable Sharita Frias MD Unavailable Kathleen Lacy CNM Unavailable [phone] Kathleen Lacy CNM Unavailable Sharita Frias MD Unavailable Blank Lemos MD Unavailable [phone] Encounter Details Date Type Department Care Team (Late st Contact Info) Description 10/18/2020 MyC Medical Advice [facility] [address] [place] [address] Sharita Frias MD [address], [address] [place] [address] Social History Tobacco Use Types Packs/Day Years [...] 02/07/2020 PHQ-2 Answer Date Recorded PHQ-2 Score 1 08/27/2020 Hunger Vital Sign Answer Date Recorded Within [...] on file Sexual Orientation Not on file COVID-19 Exposure Response Date Recorded In the last month, have you been in contact with someone who was confirmed or suspected to have Coronavirus / COVID-19? No / Unsure 10/18/2020 2:11 PM WINDOWS APPLICATION PACKAGER documented as of this encounter Plan of Treatment Not on file documented as of this encounter Visit Diagnoses Not on filedocumented in this encounter Additional Health Concerns Assessment Noted Time PHQ-9 Depression Total Score: 5 12/07/19 21 7:02 AM CDT documented as of this encounter Care Teams Cabinetmaker Apprentice Relationship Specialty Start Date End Date Blank Lemos MD [address] [place] [address] [place] [address] PCP - General Internal Medicine 04/22/18 Blank Lemos MD [address] [place] [address] [place] R[place] [address] Assigned PCP 04/25/18 07/25/22 Kathleen Lacy CNM [address] [place] [address] Assigned OBGYN Provider 06/01/20 Anabell Shannon Personal Advocate & Liaison (PAL) 10/25/20 11/23/22 Rand Kam APRN CNM [facility] [address] [place] [address] 160 [place] [address] Assigned OBGYN Provider 11/24/21 Sharita Frias MD [address] [address] Assigned OBGYN Provider 01/04/22 Kathleen Lacy CNM [address] [place] [address] Assigned OBGYN Provider 12/29/21 Kathleen Lacy CNM [address] [place] [address] Assigned OBGYN Provider 01/18/22 Sharita Frias MD [address] [address] Assigned OBGYN Provider 01/25/22 Blank Lemos MD [address] [facility] [place] [address] Assigned PCP 10/04/22 documented as of this encounter
--- OUTSIDE RECORDS SUMMARY | 2023-09-03 15:59 | XMS_ITS | Encounter Summary ---
Author Name Unknown Organization [place] Address [address] [place] [address] Care Team Providers Care Cook Starch Name Role Phone Lalita Perez MD Primary Care Provider [phone] Blank Lemos MD Primary Care Provider + [phone] Blank Lemos MD Unavailable [phone] Blank Lemos MD Unavailable [phone] Hardeep Cárdenas Unavailable Unavailable Kathleen Lacy CNM Unavailable [phone] Anabell Shannon Unavailable Unavailable Rand Kam APRN CNM Unavailable [phone] Sharita Frias MD Unavailable Kathleen Lacy CNM Unavailable [phone] Kathleen Lacy CNM Unavailable [phone] Sharita Frias MD Unavailable Blank Lemos MD Unavailable [phone] Reason for Visit * Reason Onset Date Comments Refill Request 03/03/2016 AZURETTE TABLETS 28'S Encounter Details Date Type Department Care Team (Late st Contact Info) Description 03/03/[address] [address] Lalita Perez MD [facility] [address] [address] Refill Request (AZURETTE TABLETS 28'S) Social History Tobacco Use Types Packs/Day Years Used Date Smoking Tobacco: Every Day Cigarettes 1 8 Smokeless Tobacco: Never Alcohol Use Standard Drinks/Week Comments No 0 (1 standard drink = 0.6 oz pur e alcohol) Sex and Gender Information Value Date Recorded Sex Assigned at Not on file Gender Identity Not on file Sexual Orientation Not on file documented as of this encounter Miscellaneous Notes * Telephone Encounter - Melodie Curiel - 03/05/2016 11:20 AM CDT Left message to schedule appt. * Telephone Encounter - Rosalie Alan RN - 03/05/2016 9:01 AM CDT Prescription approved per [facility] Refill Protocol. Patient due for physical after 04/05/16. Routing to Station Nurse Pool, please call to assist patient in scheduling a physical after 04/05/16. * Telephone Encounter - Lalita Merritt - 03/03/2016 8:07 AM CDT AZURETTE TABLETS 28'S Last Written Prescription Date: 04/05/2015 Last Fill Quantity: 90, # refills: 3 Last Office Visit with [facility], P or [facility] prescribing provider: 10/02/2015 documented in this encounter Plan of Treatment Not on file documented as of this encounter Visit Diagnoses Diagnosis Contraceptive management- Primary Unspecified contraceptive management documented in this encounter Care Teams Cook Starch Relationship Specialty Start Date End Date Lalita Perez MD PCP - General Student in organized health care education/training program 10/21/14 04/21/18 Blank Lemos MD [address] [place] [address] [place] [address] PCP - General Internal Medicine 04/22/18 Blank Lemos MD [address] [place] [address] [place] [address] PCP - Assigned PCP 04/25/18 10/12/18 Blank Lemos MD [address] [place] [address] [place] [address] Assigned PCP 04/25/18 07/25/22 Hardeep Cárdenas Personal Advocate & Liaison (PAL) 06/17/19 01/31/20 Kathleen Lacy CNM [address] [place] [address] Assigned OBGYN Provider 06/01/20 Anabell Shannon Personal Advocate & Liaison (PAL) 10/25/20 11/23/22 Rand Kam APRN CNM [facility] [address] [place] [address] [address] [place] [address] Assigned OBGYN Provider 11/24/21 Sharita Frias MD [address] [facility] [address] [place] [address] Assigned OBGYN Provider 01/04/22 Kathleen Lacy CNM [address] [place] [address] Assigned OBGYN Provider 12/29/21 Kathleen Lacy CNM [address] [place] [address] Assigned OBGYN Provider 01/18/22 Sharita Frias MD [address], [address] [address] Assigned OBGYN Provider 01/25/22 Blank Lemos MD [address] [facility] KISHAN RENO [id number] Assigned PCP 10/04/22 documented as of this encounter
--- OUTSIDE RECORDS SUMMARY | 2023-09-03 15:59 | XMS_ITS | Encounter Summary ---
Author Name Unknown Organization [place] Address [facility] [place] [address] Care Team Providers Care Pelts Skinner Name Role Phone Blank Lemos MD Primary Care Provider Blank Lemos MD Unavailable Kathleen Lacy CNM Unavailable [phone] Anabell Shannon Unavailable Unavailable Rand Kam APRN CNM Unavailable [phone] Sharita Frias MD Unavailable Kathleen Lacy CNM Unavailable [phone] Kathleen Lacy CNM Unavailable [phone] Sharita Frias MD Unavailable Blank Lemos MD Unavailable Encounter Details Date Type Department Care Team (Late st Contact Info) Description 10/08/2020 MyC Medical Advice M [address] [place] [address] Melodie Curiel Social History Tobacco Use Types Packs/Day Years [...] have Coronavirus / COVID-19? No / Unsure 09/28/2020 8:47 AM CMA documented as of this encounter Plan of Treatment Not on file documented as of this encounter Visit Diagnoses Not on filedocumented in this encounter Additional Health Concerns Assessment Noted Time PHQ-9 Depression Total Score: 5 12/07/19 21 7:02 AM CDT documented as of this encounter Care Teams Pelts Skinner Relationship Specialty Start Date End Date Blank Lemos MD [address] [place] [address] KISHAN RENO [address] PCP - General Internal Medicine 04/22/18 Blank Lemos MD [address] [place] [address] KISHAN RENO [address] Assigned PCP 04/25/18 07/25/22 Kathleen Lacy CNM [address] [place] [address] Assigned OBGYN Provider 06/01/20 Anabell Shannon Personal Advocate & Liaison (PAL) 10/25/20 11/23/22 Rand Kam APRN CNM [facility] [address] [facility] 160 [place] [address] Assigned OBGYN Provider 11/24/21 Sharita Frias MD [address] [address] Assigned OBGYN Provider 01/04/22 Kathleen Lacy CNM [address] [place] [address] Assigned OBGYN Provider 12/29/21 Kathleen Lacy CNM [address] [place] [address] Assigned OBGYN Provider 01/18/22 Sharita Frias MD [address] [address] Assigned OBGYN Provider 01/25/22 Blank Lemos MD [address] [facility] [place] [address] Assigned PCP 10/04/22 documented as of this encounter
--- OUTSIDE RECORDS SUMMARY | 2023-09-03 15:59 | XMS_ITS | Encounter Summary ---
Author Name Unknown Organization [place] Address [address] [place] [address]. [place] [address] Care Team Providers Care Avionics Electronics Technician Name Role Phone Blank Lemos MD Primary Care Provider [phone] Blank Lemos MD Unavailable Kathleen LacyM Unavailable [phone] Anabell Shannon Unavailable Unavailable Rand Kam APRN CNM Unavailable Sharita Frias MD Unavailable Kathleen Lacy CNM Unavailable [phone] Kathleen Lacy CNM Unavailable [phone] Sharita Frias MD Unavailable Blank Lemos MD Unavailable Encounter Details Date Type Department Care Team (Late st Contact Info) Description 08/20/2020 MyC Medical Advice [facility] [address] [place] [id number] Soledad Jones CNM [address] [place] [address] Social History Tobacco Use Types Packs/Day Years [...] 02/07/2020 PHQ-2 Answer Date Recorded PHQ-2 Score 2 02/02/2020 Hunger Vital Sign Answer Date Recorded Within [...] you have received? High school graduate 02/07/2020 Comments Yes Sex and Gender Information Value Date Recorded Sex Assigned at Not on file Gender Identity Not on file Sexual Orientation Not on file COVID-19 Exposure Response Date Recorded In the last month, have you been in contact with someone who was confirmed or suspected to have Coronavirus / COVID-19? No / Unsure 08/20/2020 1:54 PM REWRITE EDITOR documented as of this encounter Plan of Treatment Not on file documented as of this encounter Visit Diagnoses Not on filedocumented in this encounter Additional Health Concerns Assessment Noted Time PHQ-9 Depression Total Score: 10 020 8:23 AM CDT documented as of this encounter Care Teams Avionics Electronics Technician Relationship Specialty Start Date End Date Blank Lemos MD [address] [place] [address] KISHAN RENO [address] PCP - General Internal Medicine 04/22/18 Blank Lemos MD [address] [place] [address] KISHAN RENO [address] Assigned PCP 04/25/18 07/25/22 Kathleen Lacy CNM [address] [place] [address] Assigned OBGYN Provider 06/01/20 Anabell Shannon Advocate & Liaison (PAL) 10/25/20 11/23/22 Rand Kam APRN CNM [address] 160 [place] [address] Assigned OBGYN Provider 11/24/21 Sharita Frias MD [address] [address] Assigned OBGYN Provider 01/04/22 Kathleen Lacy CNM [address] [place] [address] Assigned OBGYN Provider 12/29/21 Kathleen Lacy CNM [address] [place] [address] Assigned OBGYN Provider 01/18/22 Sharita Frias MD [address] [address] Assigned OBGYN Provider 01/25/22 Blank Lemos MD [address] [facility] [place] [address] Assigned PCP 10/04/22 documented as of this encounter
--- OUTSIDE RECORDS SUMMARY | 2023-09-03 15:59 | XMS_ITS | Encounter Summary ---
Author Name Unknown Organization [place] Address [address] [place] [address] Care Team Providers Care Datawarehouse Developer Name Role Phone Blank Lemos MD Primary Care Provider [phone] Blank Lemos MD Unavailable Blank Lemos MD Unavailable [phone] Hardeep Cárdenas Unavailable Unavailable Kathleen Lacy CNM Unavailable [phone] Anabell Shannon Unavailable Unavailable Rand Kam APRN CNM Unavailable Sharita Frias MD Unavailable Kathleen Lacy CNM Unavailable [phone] Kathleen Lacy CNM Unavailable [phone] Sharita Frias MD Unavailable Balnk Lemos MD Unavailable Encounter Details Date Type Department Care Team (Late st Contact Info) Description 08/09/2018 Telephone [facility] Dev [address] [facility] [address] [place] [address] Blank Lemos MD [address] [facility] K[place] R[place] [address] Social History Tobacco [...] Noted Time PHQ-9 Depression Total Score: 7 02/08/20 18 7:00 AM CDT documented as of this encounter Care Teams Datawarehouse Developer Relationship Specialty Start Date End Date Blank Lemos MD [address] [place] [address] KISHAN RENO [address] PCP - General Internal Medicine 04/22/18 Blank Lemos MD [address] [place] [address] KISHAN RENO [address] PCP - Assigned PCP 04/25/18 10/12/18 Blank Lemos MD [address] [place] [address] KISHAN RENO [address] Assigned PCP 04/25/18 07/25/22 Hardeep Cárdenas Personal Advocate & Liaison (PAL) 06/17/19 01/31/20 Kathleen Lacy CNM [address] [place] [address] Assigned OBGYN Provider 06/01/20 Anabell Shannon Personal Advocate & Liaison (PAL) 10/25/20 11/23/22 Rand Kam APRN CNM [facility] [address] [place] [address] 160 [place] [address] Assigned OBGYN Provider 11/24/21 Sharita Frias MD [address] [address] Assigned OBGYN Provider 01/04/22 Kathleen Lacy CNM [address] [place] [address] Assigned OBGYN Provider 12/29/21 Kathleen Lacy CNM [address] [place] [address] Assigned OBGYN Provider 01/18/22 Sharita Frias MD [address], [address] [address] Assigned OBGYN Provider 01/25/22 Blank Lemos MD [address] [facility] [facility] [address] [place] [address] Assigned PCP 10/04/22 documented as of this encounter
--- OUTSIDE RECORDS SUMMARY | 2023-09-03 15:59 | XMS_ITS | Encounter Summary ---
Author Name Unknown Organization [place] Address [address] [place] [address] Care Team Providers Care Lay Up Operator Name Role Phone Blank Lemos MD Primary Care Provider Blank Lemos MD Unavailable [phone] Kathleen Lacy CNM Unavailable [phone] Anabell Shannon Unavailable Unavailable Rand Kam APRN CNM Unavailable Sharita Frias MD Unavailable Kathleen Lacy CNM Unavailable [phone] Kathleen Lacy CNM Unavailable [phone] Sharita Frias MD Unavailable Blank Lemos MD Unavailable [phone] Encounter Details Date Type Department Care Team (Latest Contact Info) Description 02/02/2020 Historic Results Social History Tobacco Use Types Packs/Day Years Used Date Smoking Tobacco: Former Cigarettes 0.3 8 Q uit: 06/24/2019 Smokeless Tobacco: Never Alcohol Use Standard Drinks/Week Comments No 0 (1 standard drink = 0.6 oz pur e alcohol) PHQ-2 Answer Date Recorded PHQ-2 Score 2 02/02/2020 Sex and Gender Information Value Date Recorded Sex Assigned at Not on file Gender Identity Not on file Sexual Orientation Not on file COVID-19 Exposure Response Date Recorded In the last month, have you been in contact with someone who was confirmed or suspected to have Coronavirus / COVID-19? No / Unsure 02/03/2020 10:55 AM CDT documented as of this encounter Plan of Treatment Not on file documented as of this encounter Visit Diagnoses Not on filedocumented in this encounter Additional Health Concerns Assessment Noted Time PHQ-9 Depression Total Score: 10 020 8:23 AM CDT documented as of this encounter Care Teams Lay Up Operator Relationship Specialty Start Date End Date Blank Lemos MD [address] [place] [address] KISHAN RENO [address] PCP - General Internal Medicine 04/22/18 Blank Lemos MD [address] [place] [address] KISHAN RENO [address] Assigned PCP 04/25/18 07/25/22 Kathleen Lacy CNM [address] [place] [address] Assigned OBGYN Provider 06/01/20 Anabell Shannon Personal Advocate & Liaison (PAL) 10/25/20 11/23/22 Rand Kam APRN CNM [facility] [address] [place] [address] 160 [place] [address] Assigned OBGYN Provider 11/24/21 Sharita Frias MD [address] [facility] 100 [place] [address] Assigned OBGYN Provider 01/04/22 Kathleen Lacy CNM [address] [place] [address] Assigned OBGYN Provider 12/29/21 Kathleen Lacy CNM [address] [place] [address] Assigned OBGYN Provider 01/18/22 Sharita Frias MD [address], [address] [address] Assigned OBGYN Provider 01/25/22 Blank Lemos MD [address] [facility] KISHAN RENO [address] Assigned PCP 10/04/22 documented as of this encounter
--- OUTSIDE RECORDS SUMMARY | 2023-09-03 15:59 | XMS_ITS | Encounter Summary ---
Author Name Unknown Organization [place] Address [facility]0 [place] [address] Care Team Providers Care Airplane Coverer Name Role Phone Blank Lemos MD Primary Care Provider Blank Lemos MD Unavailable [phone] Hardeep Cárdenas Unavailable Unavailable Kathleen Lacy CNM Unavailable [phone] Anabell Shannon Unavailable Unavailable Rand Kam APRN CNM Unavailable [phone] Sharita Frias MD Unavailable Kathleen Lacy CNM Unavailable [phone] Kathleen Lacy CNM Unavailable [phone] Sharita Frias MD Unavailable Blank Lemos MD Unavailable [phone] Encounter Details Date Type Department Care Team (Late st Contact Info) Description 01/09/2020 [facility] Medical Advice [address] [place] [address] Nahed Carrillo MA Social History Tobacco Use Types Packs/Day Years Used Date Smoking Tobacco: Former Cigarettes 0.3 8 Q uit: 06/24/2019 Smokeless Tobacco: Never Alcohol Use Standard Drinks/Week Comments No 0 (1 standard drink = 0.6 oz pur e alcohol) PHQ-2 Answer Date Recorded PHQ-2 Score 4 12/08/2019 Sex and Gender Information Value Date Recorded Sex Assigned at Not on file Gender Identity Not on file Sexual Orientation Not on file documented as of this encounter Plan of Treatment Not on file documented as of this encounter Visit Diagnoses Not on filedocumented in this encounter Additional Health Concerns Assessment Noted Time PHQ-9 Depression Total Score: 15 020 10:02 AM CDT documented as of this encounter Care Teams Airplane Coverer Relationship Specialty [place] [address] [place] [address] KISHAN RENO [address] PCP - General Internal Medicine 04/22/18 [place] [address] [place] [address] KISHAN RENO [address] Assigned PCP 04/25/18 07/25/22 Hardeep Cárdenas Personal Advocate & Liaison (PAL) 06/17/19 01/31/20 Kathleen Lacy CNM [address] [place] [address] Assigned OBGYN Provider 06/01/20 Anabell Shannon Personal Advocate & Liaison (PAL) 10/25/20 11/23/22 Rand Kam APRN CNM [facility] [address] [place] [address] 160 [place] [address] Assigned OBGYN Provider 11/24/21 Sharita Frias MD [address] [address] [place] [address] Assigned OBGYN Provider 01/04/22 Kathleen Lacy CNM [address] [place] [address] Assigned OBGYN Provider 12/29/21 Kathleen Lacy CNM [address] [place] [address] Assigned OBGYN Provider 01/18/22 Sharita Frias MD [address], [address] [address] Assigned OBGYN Provider 01/25/22 Blank Lemos MD [address] [facility] [place] RENO [address] Assigned PCP 10/04/22 documented as of this encounter
--- OUTSIDE RECORDS SUMMARY | 2023-09-03 15:59 | XMS_ITS | Encounter Summary ---
Author Name Unknown Organization [place] Address [facility] [place] [address] Care Team Providers Care Bumper Straightener Name Role Phone Blank Lemos MD Primary Care Provider [phone] Blank Lemos MD Unavailable Kathleen LacyM Unavailable [phone] Anabell Shannon Unavailable Unavailable Rand Kam APRN CNM Unavailable Sharita Frias MD Unavailable Kathleen Lacy CNM Unavailable [phone] Kathleen Lacy CNM Unavailable [phone] Sharita Frias MD Unavailable Blank Lemos MD Unavailable Encounter Details Date Type Department Care Team (Late st Contact Info) Description 08/14/[address] [facility] [address] [place] [address] Kathleen Lacy CNM [address] [place] [address] Social History Tobacco Use Types Packs/Day Years [...] have Coronavirus / COVID-19? No / Unsure 08/06/2020 1:53 PM COMMERCIAL CREDIT LEAD documented as of this encounter Plan of Treatment Not on file documented as of this encounter Visit Diagnoses Not on filedocumented in this encounter Additional Health Concerns Assessment Noted Time PHQ-9 Depression Total Score: 10 020 8:23 AM CDT documented as of this encounter Care Teams Bumper Straightener Relationship Specialty Start Date End Date Blank Lemos MD [address] [place] [address] KISHAN RENO [address] PCP - General Internal Medicine 04/22/18 Blank Lemos MD [address] [place] [address] KISHAN RENO [address] Assigned PCP 04/25/18 07/25/22 Kathleen Lacy CNM [address] [place] [address] Assigned OBGYN Provider 06/01/20 Anabell Shannon Advocate & Liaison (PAL) 10/25/20 11/23/22 Rand Kam APRN CNM [facility] [address] [place] [address] 160 [place] [address] Assigned OBGYN Provider 11/24/21 Sharita Frias MD [address] [address] Assigned OBGYN Provider 01/04/22 Kathleen Lacy CNM [address] [place] [address] Assigned OBGYN Provider 12/29/21 Kathleen Lacy CNM [address] [place] [address] Assigned OBGYN Provider 01/18/22 Sharita Frias MD [address] [address] Assigned OBGYN Provider 01/25/22 [place] [address] [place] [address] [place], K[place]AN [address] Assigned PCP 10/04/22 documented as of this encounter
--- OUTSIDE RECORDS SUMMARY | 2023-09-03 15:59 | XMS_ITS | Encounter Summary ---
Author Name Unknown Organization [place] Address [facility] [place] [address] Care Team Providers Care Community Fundraiser Name Role Phone Blank Lemos MD Primary Care Provider [phone] Blank Lemos MD Unavailable [phone] Kathleen Lacy CNM Unavailable [phone] Anabell Shannon Unavailable Unavailable Rand Kam APRN CNM Unavailable Sharita Frias MD Unavailable Kathleen Lacy CNM Unavailable [phone] Kathleen Lacy CNM Unavailable [phone] Sharita Frias MD Unavailable Blank Lemos MD Unavailable Encounter Details Date Type Department Care Team (Late st Contact Info) Description 09/03/2020 MyC Medical Advice [facility] [address] [place] [address] Ngozi Rush Social History Tobacco Use Types Packs/Day Years [...] have Coronavirus / COVID-19? No / Unsure 09/03/2020 1:45 PM FISH PITCHER documented as of this encounter Plan of Treatment Not on file documented as of this encounter Visit Diagnoses Not on filedocumented in this encounter Additional Health Concerns Assessment Noted Time PHQ-9 Depression Total Score: 5 12/07/19 21 7:02 AM CDT documented as of this encounter Care Teams Community Fundraiser Relationship Specialty Start Date End Date Blank Lemos MD [address] [place] [address] KISHAN RENO [address] PCP - General Internal Medicine 04/22/18 Blank Lemos MD [address] [place] [address] KISHAN RENO [address] Assigned PCP 04/25/18 07/25/22 Kathleen Lacy CNM [address] [place] [address] Assigned OBGYN Provider 06/01/20 Anabell Shannon Personal Advocate & Liaison (PAL) 10/25/20 11/23/22 Rand Kam APRN CN [facility] [address] [facility] 160 [place] [address] Assigned OBGYN Provider 11/24/21 Sharita Frias MD [address] [address] Assigned OBGYN Provider 01/04/22 Kathleen Lacy CNM [address] [place] [address] Assigned OBGYN Provider 12/29/21 Kathleen Lacy CNM [address] [place] [address] Assigned OBGYN Provider 01/18/22 Sharita Frias MD [address], [address] [address] Assigned OBGYN Provider 01/25/22 Blank Lemos MD [address] [facility] [place] [address] Assigned PCP 10/04/22 documented as of this encounter
--- OUTSIDE RECORDS SUMMARY | 2023-09-03 15:59 | XMS_ITS | Encounter Summary ---
Author Name Unknown Organization [place] Address [address] [place] [address] Care Team Providers Care Can Labeler Name Role Phone Blank Lemos MD Primary Care Provider Blank Lemos MD Unavailable [phone] Hardeep Cárdenas Unavailable Unavailable Kathleen Lacy CNM Unavailable [phone] Anablel Shannon Unavailable Unavailable Rand Kam APRN CNM Unavailable [phone] Sharita Frias MD Unavailable Kathleen Lacy CNM Unavailable [phone] Kathleen Lacy CNM Unavailable [phone] Sharita Frias MD Unavailable [phone] Balnk Lemos MD Unavailable [phone] Encounter Details Date Type Department Care Team (Late st Contact Info) Description 09/07/2019 [facility] [place] [address] [place] [address] Gabbie Cooley Social History Tobacco Use Types Packs/Day Years Used Date Smoking Tobacco: Every Day Cigarettes 0.3 8 Smokeless Tobacco: Never Alcohol Use Standard Drinks/Week Comments No 0 (1 standard drink = 0.6 oz pur e alcohol) PHQ-2 Answer Date Recorded PHQ-2 Score 0 09/22/2018 Sex and Gender Information Value Date Recorded Sex Assigned at Not on file Gender Identity Not on file Sexual Orientation Not on file documented as of this encounter Plan of Treatment Not on file documented as of this encounter Visit Diagnoses Not on filedocumented in this encounter Additional Health Concerns Assessment Noted Time PHQ-9 Depression Total Score: 4 09/22/19 19 3:08 PM LIVESTOCK YARD ATTENDANT documented as of this encounter Care Teams Can Labeler Relationship Specialty Start Date End Date Blank Lemos MD [address] [place] [address] KISHAN RENO [address] PCP - General Internal Medicine 04/22/18 Blank Lemos MD [address] [place] [address] KISHAN RENO [address] Assigned PCP 04/25/18 07/25/22 Hardeep Cárdenas Personal Advocate & Liaison (PAL) 06/17/19 01/31/20 Kathleen Lacy CNM [address] [place] [address] Assigned OBGYN Provider 06/01/20 Anabell Shannon Personal Advocate & Liaison (PAL) 10/25/20 11/23/22 Rand Kam APRN CNM [facility] [address] [place] [address] 160 [place] [address] Assigned OBGYN Provider 11/24/21 Sharita Frias MD [address] [address] Assigned OBGYN Provider 01/04/22 Kathleen Lacy CNM [address] [place] [address] Assigned OBGYN Provider 12/29/21 Kathleen Lacy CNM [address] [place] [address] Assigned OBGYN Provider 01/18/22 Sharita Frias MD [address], [facility] 100 [place] [address] Assigned OBGYN Provider 01/25/22 Blank Lemos MD [address] [facility] [place] R[place] [address] Assigned PCP 10/04/22 documented as of this encounter
--- OUTSIDE RECORDS SUMMARY | 2023-09-03 15:59 | XMS_ITS | Encounter Summary ---
Author Name Unknown Organization [place] Address [facility] [place] [address] Care Team Providers Care Social Contact Worker Name Role Phone Blank Lemos MD Primary Care Provider Blank Lemos MD Unavailable [phone] Kathleen Lacy CNM Unavailable [phone] Anabell Shannon Unavailable Unavailable Rand Kam APRN CNM Unavailable Sharita Frias MD Unavailable Kathleen Lacy CNM Unavailable [phone] Kathleen Lacy CNM Unavailable [phone] Sharita Frias MD Unavailable Blank Lemos MD Unavailable [phone] Encounter Details Date Type Department Care Team (Late st Contact Info) Description 08/29/2020 MyC Medical Advice M [address] [place] [address] Melodie Curiel Social History Tobacco [...] have Coronavirus / COVID-19? No / Unsure 08/27/2020 1:55 PM DIRECTOR INDUSTRIAL RELATIONS documented as of this encounter Plan of Treatment Not on file documented as of this encounter Visit Diagnoses Not on filedocumented in this encounter Additional Health Concerns Assessment Noted Time PHQ-9 Depression Total Score: 5 12/07/19 21 7:02 AM CDT documented as of this encounter Care Teams Social Contact Worker Relationship Specialty Start Date End Date Blank Lemos MD [address] [place] [address] KISHAN RENO [address] PCP - General Internal Medicine 04/22/18 Blank Lemos MD [address] [place] [address] KISHAN RENO [address] Assigned PCP 04/25/18 07/25/22 Kathleen Lacy CNM [address] [place] [address] Assigned OBGYN Provider 06/01/20 MarcellusAnabell emery Personal Advocate & Liaison (PAL) 10/25/20 11/23/22 Rand Kam APRN CN [facility] 26[address] [facility] 160 [place] [address] Assigned OBGYN Provider 11/24/21 Sharita Frias MD [address] [address] Assigned OBGYN Provider 01/04/22 Kathleen Lacy CNM [address] [place] [address] Assigned OBGYN Provider 12/29/21 Kathleen Lacy CNM [address] [place] [address] Assigned OBGYN Provider 01/18/22 Sharita Frias MD [address] [address] Assigned OBGYN Provider 01/25/22 Blank Lemos MD [address] [facility] [place] [address] Assigned PCP 10/04/22 documented as of this encounter
--- OUTSIDE RECORDS SUMMARY | 2023-09-03 15:59 | XMS_ITS | Encounter Summary ---
Author Name Unknown Organization [place] Address [facility] [place] [address] Care Team Providers Care Reimbursement Director Name Role Phone Lalita Perez MD Primary Care Provider [phone] Blank Lemos MD Primary Care Provider + [phone] Blank Lemos MD Unavailable [phone] Blank Lemos MD Unavailable [phone] Hardeep Cárdenas Unavailable Unavailable Kathleen Lacy CNM Unavailable [phone] Anabell Shannon Unavailable Unavailable Rand Kam APRN CNM Unavailable [phone] Sharita Frias MD Unavailable Kathleen Lacy CNGibson Unavailable Kathleen Lacy CNGibson Unavailable [phone] Sharita Frias MD Unavailable Blank Lemos MD Unavailable Encounter Details Date Type Department Care Team (Late st Contact Info) Description 02/06/2018 [facility] [address] [place] [address] Brii Odonnell RN Social History Tobacco Use Types Packs/Day [...] documented as of this encounter Care Teams Reimbursement Director Relationship Specialty Start Date End Date Lalita Perez MD PCP - General Student in organized health care education/training program 10/21/14 04/21/18 Blank Lemos MD [address] [place] [address] [place] [address] PCP - General Internal Medicine 04/22/18 Blank Lemos MD [address] [place] [address] K[place] RENO [address] PCP - Assigned PCP 04/25/18 10/12/18 Blank Lemos MD [address] [place] [address] [place] R[place] [address] Assigned PCP 04/25/18 07/25/22 Hardeep Cárdenas Personal Advocate & Liaison (PAL) 06/17/19 01/31/20 Kathleen Lacy CNM [address] [place] [address] Assigned OBGYN Provider 06/01/20 Anabell Shannon Personal Advocate & Liaison (PAL) 10/25/20 11/23/22 Rand Kam APRN CNM [facility] [address] [facility] 160 [place] [address] Assigned OBGYN Provider 11/24/21 Sharita Frias MD [address], [facility] 100 [place] [address] Assigned OBGYN Provider 01/04/22 Kathleen Lacy CNM [address] [place] [address] Assigned OBGYN Provider 12/29/21 Kathleen Lacy CNM [address] [place] [address] Assigned OBGYN Provider 01/18/22 Sharita Frias MD [address], [address] [address] Assigned OBGYN Provider 01/25/22 Blank Lemos MD [address] [facility] [place] [address] Assigned PCP 10/04/22 documented as of this encounter
== END 2023-09-03 15:56 | disposition home or self-care (01) ==
LOC: FRMREF 15:56
PROVIDERS: PCP Nurse Practitioner Family; Visit Provider Registered Nurse
DX: N92.0 Excessive and frequent menstruation with regular cycle (principal); Z13.29 Encounter for screening for other suspected endocrine disorder
CPT/HCPCS: 84443

== ENCOUNTER 2023-09-22 15:39 | Outpatient (CLI) | payer BC, SELFPAY ==
--- OUTSIDE RECORDS SUMMARY | 2023-09-22 15:43 | XMS_ITS | Referral Summary ---
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 Plan colp 10/07/18 [facility]- No lesions seen, no Bx taken. Plan 1 yr co-test 02/24/20 ASCUS pap, + HR HPV (not 16 or 18). Pt about 10 weeks . Plan colp without biopsies due by 05/26/20. 03/05/20 CCT tracking. 03/06/20 pt notified 04/09/20 colp visually MIL I-II. Plan: pap . EDC 09/27/20 11/06/20 NIL, +HR HPV, not 16/18. Plan [facility] bef 02/06/21 11/13/20 Left msg and MyChart result letter- read by pt 01/08/21 Reminder MyChart 02/05/21 [facility] not done. Tracking updated for 6 mo [...] PM CDT Pulse 76 09/30/2020 9:40 AM ARTIFICIAL PLASTIC EYE MAKER Temperature 36.8 ??C (98.3 ??F) 10/18/2020 2:16 PM CS T Respiratory Rate 18 09/30/2020 9:40 AM ARTIFICIAL PLASTIC EYE MAKER Oxygen Saturation 98% 09/29/2020 9:00 AM ARTIFICIAL PLASTIC EYE MAKER Inhaled Oxygen Concentration - - Weight 104.8 kg (231 lb) 11/06/2020 2:30 PM CDT Height 160 cm (5' 3) 11/06/2020 2:30 PM CDT Body Mass Index 40.92 11/06/2020 2:30 PM CDT Plan of Treatment Not on file Advance Directives For more information, please contact: [phone] Latest Code Status on File Code Status [...] with patient/ legal decision maker Care Teams Hospital Chief Executive Officer Relationship Specialty Start Date End Date Blank Lemos MD [address] [facility] [place] [address] PCP - General Internal Medicine 04/22/18 Blank Lemos MD [address] [place] [address] [place] R[place] [address] Assigned PCP 10/04/22
--- OUTSIDE RECORDS SUMMARY | 2023-09-22 15:43 | XMS_ITS | Encounter Summary ---
Author Name Unknown Organization [place] Address [facility] [place] [address] Care Team Providers Care Radio Commentator Name Role Phone Blank Lemos MD Primary Care Provider [phone] Blank Lemos MD Unavailable [phone] Kathleen Lacy CNM Unavailable [phone] Anabell Shannon Unavailable Unavailable Rand Kam APRN CNM Unavailable Sharita Frias MD Unavailable Kathleen Lacy CNM Unavailable [phone] Kathleen Lacy CNM Unavailable [phone] Sharita Frias MD Unavailable Blank Lemos MD Unavailable Encounter Details Date Type Department Care Team (Late st Contact Info) Description 10/18/2020 MyC Medical Advice [facility]'s [facility] [address] [place] [address] Sharita Frias MD [address], [place] [address] [place] [address] Social History Tobacco Use Types Packs/Day Years [...] COVID-19? 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 documented as of this encounter Plan of Treatment Not on file documented as of this encounter Visit Diagnoses Not on filedocumented in this encounter Additional Health Concerns Assessment Noted Time PHQ-9 Depression Total Score: 5 12/07/19 21 7:02 AM CDT documented as of this encounter Care Teams Radio Commentator Relationship Specialty Start Date End Date Blank Lemos MD [address] [place] [address] [place] RENO [address] PCP - General Internal Medicine 04/22/18 Blank Lemos MD [address] [place] [address] [place] RENO [address] Assigned PCP 04/25/18 07/25/22 Kathleen Lacy CNM [address] [place] [address] Assigned OBGYN Provider 06/01/20 Anabell Shannon Personal Advocate & Liaison (PAL) 10/25/20 11/23/22 Rand Kam APRN CNM [facility] [address] [place] [address] 160 [place] [address] Assigned OBGYN Provider 11/24/21 Sharita Frias MD [address] [address] Assigned OBGYN Provider 01/04/22 Kathlene Lacy CNM [address] [place] [address] Assigned OBGYN Provider 12/29/21 Kathleen Lacy CNM [address] [place] [address] Assigned OBGYN Provider 01/18/22 Sharita Frias MD [address] [address] Assigned OBGYN Provider 01/25/22 Blank Lemos MD [address] [facility] [address] Assigned PCP 10/04/22 documented as of this encounter
--- OUTSIDE RECORDS SUMMARY | 2023-09-22 15:43 | XMS_ITS | Encounter Summary ---
Author Name Unknown Organization [place] Address [facility] [place] [address] Care Team Providers Care Brace End Mainspring Former Name Role Phone Blank Lemos MD Primary Care Provider [phone] Blank Lemos MD Unavailable Kathleen LacyM Unavailable [phone] Anabell Shannon Unavailable Unavailable Rand Kam APRN CNM Unavailable Sharita Frias MD Unavailable Kathleen Lacy CNM Unavailable [phone] Kathleen Lacy CNM Unavailable [phone] Sharita Frias MD Unavailable Blank Lemos MD Unavailable Encounter Details Date Type Department Care Team (Late st Contact Info) Description 08/14/2020 MyC Medical Advice [facility] Women's [facility] [address] [place] [address] Kathleen Lacy CNM [address] [place] [address] Social History Tobacco Use Types Packs/Day Years [...] COVID-19? 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 documented as of this encounter Plan of Treatment Not on file documented as of this encounter Visit Diagnoses Not on filedocumented in this encounter Additional Health Concerns Assessment Noted Time PHQ-9 Depression Total Score: 10 020 8:23 AM CDT documented as of this encounter Care Teams Brace End Mainspring Former Relationship Specialty Start Date End Date Blank Lemos MD [address] [place] [address] [place] [address] PCP - General Internal Medicine 04/22/18 Blank Lemos MD [address] [place] [address] K[place] RENO [address] Assigned PCP 04/25/18 07/25/22 Kathleen Lacy CNM [address] [place] [address] Assigned OBGYN Provider 06/01/20 Anabell Shannon Advocate & Liaison (PAL) 10/25/20 11/23/22 Rand Kam APRN CNM [facility] [address] [place] [address] 160 [place] [address] Assigned OBGYN Provider 11/24/21 Sharita Frias MD [address] [address] Assigned OBGYN Provider 01/04/22 Kathleen Lacy CNM [address] [place] [address] Assigned OBGYN Provider 12/29/21 Kathleen Lacy CNM [address] [place] [address] Assigned OBGYN Provider 01/18/22 Sharita Frias MD [address] [address] Assigned OBGYN Provider 01/25/22 [place] [address] [place] [address] [address] [place], [place] [address] Assigned PCP 10/04/22 documented as of this encounter
--- OUTSIDE RECORDS SUMMARY | 2023-09-22 15:43 | XMS_ITS | Encounter Summary ---
Author Name Unknown Organization [place] Address [address] [place] [address] Care Team Providers Care Search Coordinator Name Role Phone Blank Lemos MD Primary Care Provider [phone] Blank Lemos MD Unavailable Kathleen Lacy CNM Unavailable [phone] Anabell Shannon Unavailable Unavailable Rand Kam APRN CNM Unavailable Sharita Frias MD Unavailable Kathleen Lacy CNM Unavailable [phone] Kathleen Lacy CNM Unavailable [phone] Sharita Frias MD Unavailable Blank Lemos MD Unavailable Reason for Visit * Reason Onset Date Comments MyChart Communication 12/10/2020 diarrhea Encounter Details Date Type Department Care Team (Latest Contact Info) Description 12/10/2020 [facility] [address] [facility] [address] [place] [address] [place] [address] [place] [address] K[place] RENO [address] MyChart Communication (diarrhea) Social [...] on December 10, 2020 Clinic Health Guide [phone] documented in this encounter Plan of Treatment Not on file documented as of this encounter Visit Diagnoses Not on filedocumented in this encounter Additional Health Concerns Assessment Noted Time PHQ-9 Depression Total Score: 2 11/07/19 21 3:02 PM CDT documented as of this encounter Care Teams Search Coordinator Relationship Specialty Start Date End Date Blank Lemos MD [address] [facility] [place] [address] PCP - General Internal Medicine 04/22/18 Blank Lemos MD [address] [facility] [place] [address] Assigned PCP 04/25/18 07/25/22 Kathleen Lacy CNM [address] [place] [address] Assigned OBGYN Provider 06/01/20 Anabell Shannon Personal Advocate & Liaison (PAL) 10/25/20 11/23/22 Rand Kam APRN CNM [facility] [address] [place] [address] 160 [place] [address] Assigned OBGYN Provider 11/24/21 Sharita Frias MD [address] [address] Assigned OBGYN Provider 01/04/22 Kathleen Lacy CNM [address] [place] [address] Assigned OBGYN Provider 12/29/21 Kathleen Lacy CNM [address] [place] [address] Assigned OBGYN Provider 01/18/22 Sharita Frias MD [address] [place] [address] Assigned OBGYN Provider 01/25/22 Blank Lemos MD [address] [facility] [place] [address] Assigned PCP 10/04/22 documented as of this encounter
--- OUTSIDE RECORDS SUMMARY | 2023-09-22 15:43 | XMS_ITS | Encounter Summary ---
Author Name Unknown Organization [place] Address [address] [place] [address]. [place] [address] Care Team Providers Care Drilling Fluids Specialist Name Role Phone Blank Lemos MD Primary Care Provider [phone] Blank Lemos MD Unavailable Kathleen LacyM Unavailable [phone] Anabell Shannon Unavailable Unavailable Rand Kam APRN CNM Unavailable Sharita Frias MD Unavailable Kathleen Lacy CNM Unavailable [phone] Kathleen Lacy CNM Unavailable [phone] Sharita Frias MD Unavailable Blank Lemos MD Unavailable Encounter Details Date Type Department Care Team (Late st Contact Info) Description 08/20/2020 MyC Medical Advice [facility] [address] [place] [address] Soledad Jones CNM [address] [place] [address] Social History Tobacco Use Types Packs/Day Years [...] COVID-19? 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 documented as of this encounter Plan of Treatment Not on file documented as of this encounter Visit Diagnoses Not on filedocumented in this encounter Additional Health Concerns Assessment Noted Time PHQ-9 Depression Total Score: 10 020 8:23 AM CDT documented as of this encounter Care Teams Drilling Fluids Specialist Relationship Specialty Start Date End Date Blank Lemos MD [address] [place] [address] [place] R[place] [address] PCP - General Internal Medicine 04/22/18 Blank Lemos MD [address] [place] [address] [place] RENO [address] Assigned PCP 04/25/18 07/25/22 Kathleen Lacy CNM [address] [place] [address] Assigned OBGYN Provider 06/01/20 Anabell Shannon Advocate & Liaison (PAL) 10/25/20 11/23/22 Rand Kam APRN CNM [address] 160 [place] [address] Assigned OBGYN Provider 11/24/21 Sharita Frias MD [address] [address] Assigned OBGYN Provider 01/04/22 Kathleen Lacy CNM [address] [place] [address] Assigned OBGYN Provider 12/29/21 Kathleen Lacy CNM [address] [place] [address] Assigned OBGYN Provider 01/18/22 Sharita Frias MD [address] [address] Assigned OBGYN Provider 01/25/22 Blank Lemos MD [address] [facility] [place] [address] Assigned PCP 10/04/22 documented as of this encounter
--- OUTSIDE RECORDS SUMMARY | 2023-09-22 15:43 | XMS_ITS | Encounter Summary ---
Author Name Unknown Organization [place] Address [facility] [place] [address] Care Team Providers Care Railroad Cook Name Role Phone Blank Lemos MD Primary Care Provider [phone] Blank Lemos MD Unavailable [phone] Kathleen Lacy CNM Unavailable [phone] Anabell Shannon Unavailable Unavailable Rand Kam APRN CNM Unavailable Sharita Frias MD Unavailable Kathleen Lacy CNM Unavailable [phone] Kathleen Lacy CNM Unavailable [phone] Sharita Frias MD Unavailable Blank Lemos MD Unavailable Encounter Details Date Type Department Care Team (Late st Contact Info) Description 04/25/2021 [facility] [address] [place] [address] Michelle Murrieta RN Social History [...] documented as of this encounter Care Teams Railroad Cook Relationship Specialty Start Date End Date Blank Lemos MD [address] [place] [address] [place] R[place] [address] PCP - General Internal Medicine 04/22/18 Blank Lemos MD [address] [place] [address] K[place] R[place] [address] Assigned PCP 04/25/18 07/25/22 Kathleen Lacy CNM [address] [place] [address] Assigned OBGYN Provider 06/01/20 Anabell Shannon Personal Advocate & Liaison (PAL) 10/25/20 11/23/22 Rand Kam APRN CN [facility] [address] [facility] 160 [place] [address] Assigned OBGYN Provider 11/24/21 Sharita Frias MD [address], [address] [address] Assigned OBGYN Provider 01/04/22 Kathleen Lacy CNM [address] [place] [address] Assigned OBGYN Provider 12/29/21 Kathleen Lacy CNM [address] [place] [address] Assigned OBGYN Provider 01/18/22 Sharita Frias MD [address], [address] [address] Assigned OBGYN Provider 01/25/22 Blank Lemos MD [address] [facility] [place] [address] Assigned PCP 10/04/22 documented as of this encounter
--- OUTSIDE RECORDS SUMMARY | 2023-09-22 15:43 | XMS_ITS | Encounter Summary ---
Author Name Unknown Organization [place] Address [facility] [place] [address] Care Team Providers Care Glue Jointer Operator Name Role Phone Blank Lemos MD Primary Care Provider [phone] Blank Lemos MD Unavailable Kathleen Lacy CNM Unavailable [phone] Anabell Shannon Unavailable Unavailable Rand Kam APRN CNM Unavailable [phone] Sharita Frias MD Unavailable Kathleen Lacy CNM Unavailable [phone] Kathleen Lacy CNM Unavailable Sharita Frias MD Unavailable Blank Lemos MD Unavailable Encounter Details Date Type Department Care Team (Late st Contact Info) Description 09/03/2020 MyC Medical Advice [facility] Women's [address] [place] [address] Ngozi Rush Social History Tobacco [...] COVID-19? 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 documented as of this encounter Plan of Treatment Not on file documented as of this encounter Visit Diagnoses Not on filedocumented in this encounter Additional Health Concerns Assessment Noted Time PHQ-9 Depression Total Score: 5 12/07/19 21 7:02 AM CDT documented as of this encounter Care Teams Glue Jointer Operator Relationship Specialty Start Date End Date Blank Lemos MD [address] [place] [address] [place] R[place] [address] PCP - General Internal Medicine 04/22/18 Blank Lemos MD [address] [place] [address] K[place] R[place] [address] Assigned PCP 04/25/18 07/25/22 Kathleen Lacy CNM [address] [place] [address] Assigned OBGYN Provider 06/01/20 Anabell Shannon Personal Advocate & Liaison (PAL) 10/25/20 11/23/22 Rand Kam APRN CN [facility] [address] [facility] 160 [place] [address] Assigned OBGYN Provider 11/24/21 Sharita Frias MD [address] [address] Assigned OBGYN Provider 01/04/22 Kathleen Lacy CNM [address] [place] [address] Assigned OBGYN Provider 12/29/21 Kathleen Lacy CNM [address] [place] [address] Assigned OBGYN Provider 01/18/22 Sharita Frias MD [address], [address] [address] Assigned OBGYN Provider 01/25/22 Blank Lemos MD [address] [facility] [address] Assigned PCP 10/04/22 documented as of this encounter
--- OUTSIDE RECORDS SUMMARY | 2023-09-22 15:43 | XMS_ITS | Encounter Summary ---
Author Name Unknown Organization [place] Address [address] [place] [address] Care Team Providers Care Leasing Representative Name Role Phone Blank Lemos MD Primary Care Provider Blank Lemos MD Unavailable [phone] Kathleen Lacy CNM Unavailable [phone] Anabell Shannon Unavailable Unavailable Rand Kam APRN CNM Unavailable Sharita Frias MD Unavailable Kathleen Lacy CNM Unavailable [phone] Kathleen Lacy CNM Unavailable [phone] Sharita Frias MD Unavailable Blank Lemos MD Unavailable [phone] Encounter Details Date Type Department Care Team [...] documented as of this encounter Care Teams Leasing Representative Relationship Specialty Start Date End Date Blank Lemos MD [address] [place] [address] K[place] RENO [address] PCP - General Internal Medicine 04/22/18 Blank Lemos MD [address] [place] [address] K[place] R[place] [address] Assigned PCP 04/25/18 07/25/22 Kathleen Lacy CNM [address] [place] [address] Assigned OBGYN Provider 06/01/20 Anabell Shannon Personal Advocate & Liaison (PAL) 10/25/20 11/23/22 Rand Kam APRN CNM [facility] [address] [place] [address] 160 [place] [address] Assigned OBGYN Provider 11/24/21 Sharita Frias MD [address] [facility] 100 [place] [address] Assigned OBGYN Provider 01/04/22 Kathleen Lacy CNM [address] [place] [address] Assigned OBGYN Provider 12/29/21 Kathleen Lacy CNM [address] [place] [address] Assigned OBGYN Provider 01/18/22 Sharita Frias MD [address], [address] [address] Assigned OBGYN Provider 01/25/22 Blank Lemos MD [address] [facility] [place] [address] Assigned PCP 10/04/22 documented as of this encounter
--- OUTSIDE RECORDS SUMMARY | 2023-09-22 15:43 | XMS_ITS | Clinical Summary ---
Author Name Unknown Organization [employer] [facility] Address [place], [place] [address] Care Team Providers Care Blending Supervisor Name Role Phone Evelyn Arnett NP Primary Care Provider [phone] Allergies Active Allergy Reactions Criticality Noted Date Comments Doxycycline Nausea And Vomiting,Dizziness 06/12 Medications Medication Sig Dispensed Refills Start Date End Date Status ondansetron (ZOFRAN ODT) 4 mg disintegrating tablet 0 11/25/2021 Active SUMAtriptan (IMITREX) 50 mg tabletIndications:Me nstrual migraine without status migrainosus, not intractable Take 1 Tablet (50 mg) by mouth 2 times daily if needed for Migraine. Give at minimum 2hrs apart. Max Dose: 200mg per 24hrs. 10 Tablet 3 10/22/2022 Active busPIRone (BUSPAR) 30 mg tabletIndications:Ge neralized anxiety disorder Take 1 Tablet (30 mg) by mouth two times daily. 180 Tablet 1 03/13/2023 Active PARoxetine (PAXIL) 20 mg tabletIndications:Ge neralized anxiety disorder,Depression, recurrent (HC) Take 1 Tablet (20 mg) by mouth every morning. 100 Tablet 1 09/09/2023 Active sertraline (ZOLOFT) 100 mg tabletIndications:Ge neralized anxiety disorder,Depression, recurrent (HC) Take 1.5 Tablets (150 mg) by mouth every morning. 135 Tablet 1 07/29/2023 Discontinue d(*Medicati on adjustment) Active Problems Problem Noted Date Diagnosed Date Morbid obesity 10/18/2020 Moderate episode of recurrent major depressive d isorder 12/21/2019 ASCUS with positive high risk HPV cervical 09/22 Overview: 09/22/18 LSIL, +HR HPV, not 16/18. Plan colp 10/07/18 Harriet- No lesions seen, no Bx taken. Plan 1 yr co-test 02/24/20 ASCUS pap, + HR HPV (not 16 or 18). Pt about 10 weeks . Plan colp without biopsies due by 05/26/20. 03/05/20 CCT tracking. 03/06/20 pt notified 04/09/20 colp visually MIL I-II. Plan: pap . EDC 09/27/20 11/06/20 NIL, +HR HPV, not 16/18. Plan [place]riet bef 02/06/21 11/13/20 Left msg and MyChart result letter- read by pt 01/08/21 Reminder MyChart 02/05/21 Harriet not done. Tracking updated for 6 mo [...] Encounters Date Type Department Care Team Description 09/09/2023 12:55 PM SUPERVISOR METAL PLACING Telemedicine [facility] [address] [address] [address] Evelyn Arnett NP Psychiatric Problem; Telehealth 09/09/2023 Travel 09/04/2023 Lab Requisition [facility] [phone] Steph Smith NP 07/29/2023 3:50 PM SUPERVISOR METAL PLACING Telemedicine [facility] [address] [address] [address] Evelyn Arnett NP Medication Management; Telehealth 07/28/2023 Travel from Last 3 Months Immunizations Name Administration Dates Next Due COVID-19 vaccine ([employer] NTech 30mcg/0.3mL) [place] [place] 07/26/2021,12/08/2020,11/10/2020 Td (Age >=7 [...] Answer Date Recorded PHQ-2 TOTAL SCORE 0 09/09/2023 Social Connections Answer Date Recorded Frequency of Communication with Friends and Fami ly Not on file 09/16/2023 Financial Resource Strain Answer Date R ecorded [...] Wendy Swann luis e DO Complications:None Delivery Location:[facility] ([facility]) Last Filed Vital Signs Vital Sign Reading Time Taken Comments Blood Pressure 110/68 10/22/2022 2:58 PM CDT Pulse 72 10/22/2022 2:58 PM CDT Temperature 36.9 ??C (98.4 ??F) 10/01/2022 1:37 PM CS T Respiratory Rate 15 01/02/2022 1:19 PM CDT Oxygen Saturation 97% 09/16/2021 3:22 PM SUPERVISOR METAL PLACING Inhaled Oxygen Concentration - - Weight 109.8 [...] history exists Depression screening for age 12+ 09/09/2024 09/09/2023, 07/29/2023, 04/24/2023, Additional history exists Pap test for age 21-65 09/03/2026 , 09/03/2023, 12/25/2021, Additional history exists Tetanus booster 07/09/2030 07/09/2020, 090 08/2015, 10/08/2008, Additional history exists Tdap Completed 07/09/2020, 04/10/2016 Pneumococcal series for age 6-64 Aged Out No longer eligible based on patient's age to complete this topic Procedures Procedure Name Priority Date/Time Associated Diagnosis Comments LAB TRACKING EVENT Routine 09/03/2023 4: 15 PM SUPERVISOR METAL PLACING IT INSTRUCTOR THIN PREP PAP SCREEN IMAGED Routine 09/03/2023 4:15 PM SUPERVISOR METAL PLACING HPV THIN PREP Routine 09/03/2023 4:15 PM SUPERVISOR METAL PLACING from Last 3 Months Results * LAB TRACKING EVENT (09/03/2023 4:15 PM SUPERVISOR METAL PLACING) Other (Other) Client Collect / Unknown 09/03/2023 4:15 PM SUPERVISOR METAL PLACING 09/04/2023 6:24 PM SUPERVISOR METAL PLACING Steph Smith NP LAB BILL ONLY [facility] [address] [place] [address], * IT INSTRUCTOR THIN PREP PAP SCREEN IMAGED (09/03/2023 4:15 PM SUPERVISOR METAL PLACING) Case Report Gynecologic Cytology Report ? Case: [id number] ? Authorizing Provider: ??Steph Smith, MARGARITA ?? Collected: ? 09/03/2023 1615 ? Ordering Location: ? [facility] ?Received: ?09/07/2023 1223 ? First Screen: ?Radha Al ? Rescreen: ?Natalie Forrester ? Pathologist: ? Nahed Wellington MD ? Specimen: ?IT INSTRUCTOR ThinPrep Vial Screening, Cervical ? 09/16/2023 5:41 PM [facility] INTERPRETATION/ RESULT NEGATIVE FOR INTRAEPITHELIAL LESION OR MALIGNANCY (NIL) (none) 09/16/2023 5:41 PM [facility] R NON-NEOPLASTIC FINDING(S) Reactive cellular changes associated with inflammation/repa ir 09/16/2023 5:41 PM [facility] SPECIMEN ADEQUACY Satisfactory for evaluation Endocervical component present Scant cellularity 09/16/2023 5:41 PM [facility] HPV REQUEST HPV and PAP 09/16/2023 5:41 PM SUPERVISOR METAL PLACING [facility] Date of LMP 08/28/2023 09/16/2023 5:41 PM SUPERVISOR METAL PLACING [facility] Last Pap Date 12/25/2021 09/16/2023 5:41 PM SUPERVISOR METAL PLACING [facility] Last Pap Result NIL 5:41 PM SUPERVISOR METAL PLACING [facility] Abnormal Pap or Harriet Bx in last 5 years No 09/16/2023 5:41 PM SUPERVISOR METAL PLACING [facility] Menstrual Status Abnormal bleeding 09/16/2023 5:41 PM [facility] Harriet Bx Done Today No 09/16/2023 5:41 PM [facility] Additional Information 09/16/2023 5:41 PM SUPERVISOR METAL PLACING [facility] Comment: Interpreted at [facility] - [address] [place] [address]. [place] [address], [place] [address] Automated Review Successful 09/16/2023 5:41 PM SUPERVISOR METAL PLACING [facility] Comment:Specimen processed s uccessfully by automated casino worker device, ThinPrep Imaging System, [employer] ANCILLARY TESTING IT INSTRUCTOR HPV Ordered, Please see separate report 09/16/2023 5:41 PM SUPERVISOR METAL PLACING [facility] Note The pap test is a screening technique, not a diagnostic procedure. It is used primarily to screen for squamous cancers and precursor lesions. Published studies have shown that it is subject to both false negative and false positive results. The pap test should not be used as the sole means to diagnose or exclude pre-malignant and malignant lesions. 09/16/2023 5:41 PM SUPERVISOR METAL PLACING [facility] Other (Cervical) 09/03/2023 4:15 PM SUPERVISOR METAL PLACING 09/07/2023 12:23 PM SUPERVISOR METAL PLACING Steph Smith NP PATHOLOGY/CYTOLOG Y [facility] [address] [place] [address], * HPV HIGH RISK (09/03/2023 4:15 PM SUPERVISOR METAL PLACING) TYPE 16 Negative Negative 09/08/2023 4:22 PM SUPERVISOR METAL PLACING [facility] TYPE 18 Negative Negative 09/08/2023 4:22 PM SUPERVISOR METAL PLACING [facility] OTHER HIGH RISK TYPES Negative Negative 09/08/2023 4:22 PM SUPERVISOR METAL PLACING [facility] Other (Cervical) 09/03/2023 4:15 PM SUPERVISOR METAL PLACING 09/07/2023 12:23 PM SUPERVISOR METAL PLACING Narrative [facility] - 09/08/2023 4:22 PM SUPERVISOR METAL PLACING HPV types 16, 18, 31, 33, 35, 39, 45, 51, 52, 56, 58, 59, 66 and 68 DNA were undetectable or below the pre-set threshold. Methodology: [employer] 4800 HPV Test Steph Smith NP MICROBIOLOGY [facility] [address] [place] [address], from Last 3 Months Additional Health Concerns Infection Onset Date Last Indicated Rule-Out C.diff 12/12/2020 12/12/2020 Advance Directives Latest Code Status on File Code Status Date Activated Date Inactivated Comments Full Code 12/26/2011 7:11 AM 12/26/2011 2:47 PM Care Teams Blending Supervisor Relationship Specialty [place] [address] [place] [address] PCP - General Nurse Practitioner 12/27/20
--- OUTSIDE RECORDS SUMMARY | 2023-09-22 15:43 | XMS_ITS | Encounter Summary ---
Author Name Unknown Organization [facility] Address [address] [place] [address] Care Team Providers Care New Accounts Representative Name Role Phone Blank Lemos MD Primary Care Provider [phone] Blank Lemos MD Unavailable Hardeep Cárdenas Unavailable Unavailable Kathleen Lacy CNM Unavailable [phone] Anabell Shannon Unavailable Unavailable Rand Kam APRN CNM Unavailable Sharita Frias MD Unavailable Kathleen Lacy CNGibson Unavailable [phone] Kathleen Lacy CNM Unavailable [phone] Sharita Frias MD Unavailable Blank Lemos MD Unavailable [phone] Reason for Visit * Reason Onset Date Comments Care 01/26/2020 Encounter Details Date Type Department Care Team (Late st Contact Info) Description 01/26/2020 MyC Medical Advice [facility] Women's [address] [place] [id number] [place] [address] [place] [address] Care Social History Tobacco Use Types Packs/Day Years [...] encounter Miscellaneous Notes * Telephone Encounter - Faiza Reyes CNM - 02/01/2020 8:59 AM CDT I will put in orders for serial quant HCG. I will also put in a future order for an ultrasound, butI want her to wait to schedule her ultrasound until after we get her first HCG back. Please advise her to go to ER with severe pain, fever, or heavy bleeding. Thank you, Faiza Reyes APRN, CNM * Telephone Encounter - Vandana Sosa RN - 02/01/2020 7:55 AM CDT Please see my chart message. GA [id number] Vandana Sosa RN documented in this encounter Plan of Treatment Not on file documented as of this encounter Results * (ABNORMAL) HCG quantitative (02/03/2020 10:56 AM CDT) HCG Quantitative Serum 13,231(H) 0 - 5 IU/L 02/04/2020 12:58 PM CDT [facility] Blood specimen (specimen) 02/03/2020 10:56 AM CDT 02/03/2020 10:57 AM CDT Faiza Reyes CNM LAB - BLOOD ORDERABL ES [facility] [address] [place] [address] * Progesterone (02/01/2020 11:02 AM CDT) Progesterone 12.2 ng/mL 02/01/2020 6:04 PM CDT [facility] Comment: Progesterone Reference Range Female Non ?Follicular ?0.15-1.4 ?Luteal ?3.4-25.6 ?Postmenopausal ??<0.15-0.73 ?1st Trimester ?? 11.2-90.0 ?2nd Trimester ?? 25.6-89.4 ?3rd Trimester ?? 48.4-422.5 Blood specimen (specimen) 02/01/2020 11:02 AM CDT 02/01/2020 11:04 AM CDT Faiza FARMER LAB - BLOOD ORDERABL ES [facility] [address] [place] [address] * (ABNORMAL) HCG quantitative (02/01/2020 11:02 AM CDT) Pathologist [facility] HCG Quantitative Serum 8,783(H) 0 - 5 IU/L 02/02/2020 10:02 AM CDT [facility] Blood specimen (specimen) 02/01/2020 11:02 AM CDT 02/01/2020 11:04 AM CDT Faiza [facility] LAB - BLOOD ORDERABL ES [facility] [address] [place] [address] documented in this encounter Visit Diagnoses Diagnosis Bleeding in early - Primary Unspecified hemorrhage in early , unspecified as to episode of care documented in this encounter Additional Health Concerns Assessment Noted Time PHQ-9 Depression Total Score: 15 12/07/2 020 10:02 AM CDT documented as of this encounter Care Teams New Accounts Representative Relationship Specialty Start Date End Date Blank Lemos MD [address] [facility] [place] [address] PCP - General Internal Medicine 04/22/18 Blank Lemos MD [address] [facility] [place] [address] Assigned PCP 04/25/18 07/25/22 Hardeep Cárdenas Personal Advocate & Liaison (PAL) 06/17/19 01/31/20 Kathleen Lacy CNM [address] [place] [address] Assigned OBGYN Provider 06/01/20 Anabell Shannon Personal Advocate & Liaison (PAL) 10/25/20 11/23/22 Radn Kam APRN CNGibson [facility] [address] [place] [address] [address] [place] [address] Assigned OBGYN Provider 11/24/21 Sharita Frias MD [address] [facility] [address] [place] [address] Assigned OBGYN Provider 01/04/22 Kathleen Lacy CNM [address] [place] [address] Assigned OBGYN Provider 12/29/21 Kathleen Lacy CNM [address] [place] [address] Assigned OBGYN Provider 01/18/22 Sharita Frias MD [address] [facility], [address] [address] Assigned OBGYN Provider 01/25/22 Blank Lemos MD [address] [facility] [address] Assigned PCP 10/04/22 documented as of this encounter
--- OUTSIDE RECORDS SUMMARY | 2023-09-22 15:43 | XMS_ITS | Clinical Summary ---
Author Name Unknown Organization [place] Address [address] [place] [address] Care Team Providers Care Larry Operator Name Role Phone Blank Lemos MD Primary Care Provider [phone] Blank Lemos MD Unavailable [phone] Allergies Active Allergy Reactions Criticality Noted Date [...] High-risk , third trimester 08/07/2020 Overview: Clinic/Hospital: [facility] Partner Name: Micah Ultrasound predicts sex: female [...] +HR HPV, not 16/18. Plan colp 10/07/18 [place]- No lesions seen, no Bx taken. Plan 1 yr co-test 02/24/20 ASCUS pap, + HR HPV (not 16 or 18). Pt about 10 weeks . Plan colp without biopsies due by 05/26/20. 03/05/20 CCT tracking. 03/06/20 pt notified 04/09/20 colp visually MIL I-II. Plan: pap . EDC 09/27/20 11/06/20 NIL, +HR HPV, not 16/18. Plan [place] bef 02/06/21 11/13/20 Left msg and MyChart result letter- read by pt 01/08/21 Reminder MyChart 02/05/21 [place] not done. Tracking updated for 6 mo [...] PM CDT Pulse 76 09/30/2020 9:40 AM EMERGENCY MEDICAL SERVICE COORDINATOR Temperature 36.8 ??C (98.3 ??F) 10/18/2020 2:16 PM CS T Respiratory Rate 18 09/30/2020 9:40 AM EMERGENCY MEDICAL SERVICE COORDINATOR Oxygen Saturation 98% 09/29/2020 9:00 AM EMERGENCY MEDICAL SERVICE COORDINATOR Inhaled Oxygen Concentration - - Weight 104.8 [...] INFLUENZA VACCINE (#1) 2023 09/22/2018 (Declin ed) GLUCOSE 07/09/2023 07/09/2020, 05/10, 12/22/2016, Additional history exists DTAP/TDAP/TD IMMUNIZATION (5 - Td or Tdap) [...] Advance Directives For more information, please contact: [phone] Latest Code Status on File Code Status [...] with patient/ legal decision maker Care Teams Larry Operator Relationship Specialty Start Date End Date Blank Lemos MD [address] [place] [address] [place] [address] PCP - General Internal Medicine 04/22/18 Blank Lemos MD [address] [place] [address] [place] [address] Assigned PCP 10/04/22
--- OUTSIDE RECORDS SUMMARY | 2023-09-22 15:43 | XMS_ITS | Encounter Summary ---
Author Name Unknown Organization [place] Address [facility] [place] [address] Care Team Providers Care Moving Consultant Name Role Phone Blank Lemos MD Primary Care Provider [phone] Blank Lemos MD Unavailable [phone] Kathleen Lacy CNM Unavailable [phone] Anabell Shannon Unavailable Unavailable Rand Kam APRN CNM Unavailable [phone] Sharita Frias MD Unavailable Kathleen Lacy CNM Unavailable [phone] Kathleen Lacy CNM Unavailable [phone] Sharita Frias MD Unavailable Blank Lemos MD Unavailable [phone] Encounter Details Date Type Department Care Team (Late st Contact Info) Description 01/08/2021 [facility] Medical Advice [address] [place] [address] Michelle Murrieta RN Social History [...] documented as of this encounter Care Teams Moving Consultant Relationship Specialty Start Date End Date Blank Lemos MD [address] [place] [address] [place] [address] PCP - General Internal Medicine 04/22/18 Blank Lemos MD [address] [place] [address] [place] [address] Assigned PCP 04/25/18 07/25/22 Kathleen Lacy CNM [address] [place] [address] Assigned OBGYN Provider 06/01/20 Anabell Shannon Personal Advocate & Liaison (PAL) 10/25/20 11/23/22 Rand Kam APRN CN [facility] [address] [facility] [address] [place] [address] Assigned OBGYN Provider 11/24/21 Sharita Frias MD [address], [address] [address] Assigned OBGYN Provider 01/04/22 Kathleen Lacy CNM [address] [place] [address] Assigned OBGYN Provider 12/29/21 Kathleen Lacy CNM [address] [place] [address] Assigned OBGYN Provider 01/18/22 Sharita Frias MD [address] [place], [address] [address] Assigned OBGYN Provider 01/25/22 Blank Lemos MD [address] [facility] [place] [address] Assigned PCP 10/04/22 documented as of this encounter
--- OUTSIDE RECORDS SUMMARY | 2023-09-22 15:43 | XMS_ITS | Encounter Summary ---
Author Name Unknown Organization [place] Address [facility] [place] [address] Care Team Providers Care Environmental Law Professor Name Role Phone Blank Lemos MD Primary Care Provider Blank Lemos MD Unavailable Kathleen Lacy CNM Unavailable [phone] Anabell Shannon Unavailable Unavailable Rand Kam APRN CNM Unavailable Sharita Frias MD Unavailable Kathleen Lacy CNM Unavailable [phone] Kathleen Lacy CNM Unavailable [phone] Sharita Frias MD Unavailable Blank Lemos MD Unavailable Encounter Details Date Type Department Care Team (Late st Contact Info) Description 10/08/2020 MyC Medical Advice M [address] [place] [address] Melodie Curiel Social History Tobacco [...] COVID-19? No / Unsure 09/28/2020 8:47 AM RISK CONSULTANT documented as of this encounter Plan of Treatment Not on file documented as of this encounter Visit Diagnoses Not on filedocumented in this encounter Additional Health Concerns Assessment Noted Time PHQ-9 Depression Total Score: 5 12/07/19 21 7:02 AM CDT documented as of this encounter Care Teams Environmental Law Professor Relationship Specialty Start Date End Date Blank Lemos MD [address] [place] [address] [place] [address] PCP - General Internal Medicine 04/22/18 Blank Lemos MD [address] [place] [address] [place] [address] Assigned PCP 04/25/18 07/25/22 Kathleen Lacy CNM [address] [place] [address] Assigned OBGYN Provider 06/01/20 Anabell Shannon Personal Advocate & Liaison (PAL) 10/25/20 11/23/22 Rand Kam APRN CNM [facility] [address] [facility] [address] [place] [address] Assigned OBGYN Provider 11/24/21 Sharita Frias MD [address] [address] Assigned OBGYN Provider 01/04/22 Kathleen Lacy CNM [address] [place] [address] Assigned OBGYN Provider 12/29/21 Kathleen Lacy CNM [address] [place] [address] Assigned OBGYN Provider 01/18/22 Sharita Frias MD [address] [address] Assigned OBGYN Provider 01/25/22 Blank Lemos MD [address] [facility] [place] [address] Assigned PCP 10/04/22 documented as of this encounter
--- OUTSIDE RECORDS SUMMARY | 2023-09-22 15:43 | XMS_ITS | Encounter Summary ---
Author Name Unknown Organization [place] Address [facility] [place] [address] Care Team Providers Care Specialty Development Consultant Name Role Phone Blank Lemos MD Primary Care Provider Blank Lemos MD Unavailable Kathleen Lacy CNM Unavailable [phone] Anabell Shannon Unavailable Unavailable Rand Kam APRN CNM Unavailable Sharita Frias MD Unavailable Kathleen Lacy CNM Unavailable [phone] Kathleen Lacy CNM Unavailable [phone] Sharita Frias MD Unavailable Blank Lemos MD Unavailable Encounter Details Date Type Department Care Team (Late st Contact Info) Description 08/29/2020 MyC Medical Advice M [address] [place] [address] Melodie Curiel Social History Tobacco [...] COVID-19? No / Unsure 08/27/2020 1:55 PM FABRICATOR INDUSTRIAL FURNACE documented as of this encounter Plan of Treatment Not on file documented as of this encounter Visit Diagnoses Not on filedocumented in this encounter Additional Health Concerns Assessment Noted Time PHQ-9 Depression Total Score: 5 12/07/19 21 7:02 AM CDT documented as of this encounter Care Teams Specialty Development Consultant Relationship Specialty Start Date End Date Blank Lemos MD [address] [place] [address] [place] [address] PCP - General Internal Medicine 04/22/18 Blank Lemos MD [address] [place] [address] [place] [address] Assigned PCP 04/25/18 07/25/22 Kathleen Lacy CNM [address] [place] [address] Assigned OBGYN Provider 06/01/20 MarcellusAnabell emery Personal Advocate & Liaison (PAL) 10/25/20 11/23/22 Rand Kam APRN CN [facility] [address] [facility] 160 [place] [address] Assigned OBGYN Provider 11/24/21 Sharita Frias MD [address] [address] Assigned OBGYN Provider 01/04/22 Kathleen Lacy CNM [address] [place] [address] Assigned OBGYN Provider 12/29/21 Kathleen Lacy CNM [address] [place] [address] Assigned OBGYN Provider 01/18/22 Sharita Frias MD [address] [address] Assigned OBGYN Provider 01/25/22 Blank Lemos MD [address] [facility] [place] [address] Assigned PCP 10/04/22 documented as of this encounter
--- OUTSIDE RECORDS SUMMARY | 2023-09-22 15:44 | XMS_ITS | Encounter Summary ---
Author Name Unknown Organization [place] Address [address] [place] [address] Care Team Providers Care Rail Setter Name Role Phone Blank Lemos MD Primary Care Provider [phone] Blank Lemos MD Unavailable Blank Lemos MD Unavailable Hardeep Cárdenas Unavailable Unavailable Kathleen Lacy CNM Unavailable [phone] Anabell Shannon Unavailable Unavailable Rand Kam APRN CNM Unavailable Sharita Frias MD Unavailable Kathleen Lacy CNM Unavailable [phone] Kathleen Lacy CNM Unavailable [phone] Sharita Frias MD Unavailable Blank Lemos MD Unavailable Encounter Details Date Type Department Care Team (Late st Contact Info) Description 08/09/2018 Telephone [facility] [address] [place] [address] Blank Lemos MD [address] [facility] [place] [address] Social History Tobacco Use [...] documented as of this encounter Care Teams Rail Setter Relationship Specialty Start Date End Date Blank Lemos MD [address] [place] [address] [place] [address] PCP - General Internal Medicine 04/22/18 Blank Lemos MD [address] [place] [address] [place] [address] PCP - Assigned PCP 04/25/18 10/12/18 Blank Lemos MD [address] [place] [address] [place] [address] Assigned PCP 04/25/18 07/25/22 Hardeep Cárdenas Personal Advocate & Liaison (PAL) 06/17/19 01/31/20 Kathleen Lacy CNM [place] [place] [address] Assigned OBGYN Provider 06/01/20 Anabell Shannon Personal Advocate & Liaison (PAL) 10/25/20 11/23/22 Rand Kam APRN CNM [facility] [address] [place] [address] [address] [place] [address] Assigned OBGYN Provider 11/24/21 Sharita Frias MD [address] [address] Assigned OBGYN Provider 01/04/22 Kathleen Lacy CNM [address] [place] [address] Assigned OBGYN Provider 12/29/21 Kathleen Lacy CNM [address] [place] [address] Assigned OBGYN Provider 01/18/22 Sharita Frias MD [address], [address] [address] Assigned OBGYN Provider 01/25/22 Blank Lemos MD [address] [facility] [place] [address] [place] [address] Assigned PCP 10/04/22 documented as of this encounter
--- OUTSIDE RECORDS SUMMARY | 2023-09-22 15:44 | XMS_ITS | Encounter Summary ---
Author Name Unknown Organization [place] Address [facility] [place] [address] Care Team Providers Care Engineer Third Assistant Name Role Phone Lalita Perez MD Primary Care Provider [phone] Blank Lemos MD Primary Care Provider + [phone] Blank Lemos MD Unavailable [phone] Blank Lemos MD Unavailable [phone] Hardeep Cárdenas Unavailable Unavailable Kathleen Lacy CNM Unavailable [phone] Anabell Shannon Unavailable Unavailable Rand Kam APRN CNM Unavailable [phone] Sharita Frias MD Unavailable Kathleen Lacy CNGibson Unavailable [phone] Kathleen Lacy CNGibson Unavailable [phone] Sharita Frias MD Unavailable Blank Lemos MD Unavailable Encounter Details Date Type Department Care Team (Late st Contact Info) Description 02/06/2018 [facility] [address] [place] [address] Brii Odonnell RN Social History [...] as of this encounter Care Teams Engineer Third Assistant Relationship Specialty Start Date End Date Lalita Perez MD PCP - General Student in organized health care education/training program 10/21/14 04/21/18 Blank Lemos MD [address] [place] [address] [place] [address] PCP - General Internal Medicine 04/22/18 Blank Lemos MD [address] [place] [address] [place] [address] PCP - Assigned PCP 04/25/18 10/12/18 Blank Lemos MD [address] [place] [address] [place] [address] Assigned PCP 04/25/18 07/25/22 Hardeep Cárdenas Personal Advocate & Liaison (PAL) 06/17/19 01/31/20 Kathleen Lacy CNM [address] [place] [address] Assigned OBGYN Provider 06/01/20 Anabell Shannon Personal Advocate & Liaison (PAL) 10/25/20 11/23/22 Rand Kam APRN CNM [facility] [address] [facility] 160 [place] [address] Assigned OBGYN Provider 11/24/21 Sharita Frias MD [address], [address] [place] [address] Assigned OBGYN Provider 01/04/22 Kathleen Lacy CNM [address] [place] [address] Assigned OBGYN Provider 12/29/21 Kathleen Lacy CNM [address] [place] [address] Assigned OBGYN Provider 01/18/22 Sharita Frias MD [address], [address] [address] Assigned OBGYN Provider 01/25/22 Blank Lemos MD [address] [facility] [place] [address] Assigned PCP 10/04/22 documented as of this encounter
--- OUTSIDE RECORDS SUMMARY | 2023-09-22 15:44 | XMS_ITS | Encounter Summary ---
Author Name Unknown Organization [place] Address [address] [place] [address] Care Team Providers Care Professor Of Kinesiology Name Role Phone Blank Lemos MD Primary Care Provider [phone] Blank Lemos MD Unavailable [phone] Hardeep Cárdenas Unavailable Unavailable Kathleen Lacy CNM Unavailable [phone] Anabell Shannon Unavailable Unavailable Rand Kam APRN CNM Unavailable [phone] Sharita Frias MD Unavailable Kathleen Lacy CNM Unavailable [phone] Kathleen Lacy CNM Unavailable [phone] Sharita Frias MD Unavailable Blank Lemos MD Unavailable [phone] Encounter Details Date Type Department Care Team (Late st Contact Info) Description 09/07/2019 [facility] [address] [place] [address] Gabbie Cooley Social History Tobacco [...] Total Score: 4 09/22/19 19 3:08 PM TOBACCO BALER documented as of this encounter Care Teams Professor Of Kinesiology Relationship Specialty Start Date End Date Blank Lemos MD [address] [place] [address] [place] [address] PCP - General Internal Medicine 04/22/18 Blank Lemos MD [address] [place] [address] [place] [address] Assigned PCP 04/25/18 07/25/22 Hardeep Cárdenas Personal Advocate & Liaison (PAL) 06/17/19 01/31/20 Kathleen Lacy CNM [address] [place] [address] Assigned OBGYN Provider 06/01/20 Anabell Shannon Personal Advocate & Liaison (PAL) 10/25/20 11/23/22 Rand Kam APRN CNM [facility] [address] [place] [address] 160 [place] [address] Assigned OBGYN Provider 11/24/21 Sharita Frias MD [address] [address] Assigned OBGYN Provider 01/04/22 Kathleen Lacy CNM [address] [place] [address] Assigned OBGYN Provider 12/29/21 Kathleen Lacy CNM [address] [place] [address] Assigned OBGYN Provider 01/18/22 Sharita Frias MD [address], [facility] 100 [place] [address] Assigned OBGYN Provider 01/25/22 Blank Lemos MD [address] [facility] [place] [address] Assigned PCP 10/04/22 documented as of this encounter
--- OUTSIDE RECORDS SUMMARY | 2023-09-22 15:44 | XMS_ITS | Encounter Summary ---
Author Name Unknown Organization [place] Address [address] [place] [address] Care Team Providers Care Seal Delivery Vehicle Team Technician Name Role Phone Lalita Perez MD Primary Care Provider [phone] Blank Lemos MD Primary Care Provider + [phone] Blank Lemos MD Unavailable [phone] Blank Lemos MD Unavailable [phone] Hardeep Cárdenas Unavailable Unavailable Kathleen Lacy CNM Unavailable [phone] Anabell Shannon Unavailable Unavailable Rand Kam APRN CNM Unavailable [phone] Sharita Frias MD Unavailable Kathleen Lacy CNM Unavailable [phone] Kathleen Lacy CNM Unavailable [phone] Sharita Frias MD Unavailable Blank Lemos MD Unavailable Reason for Visit * Reason Onset Date Comments Refill Request 03/03/2016 [facility] Encounter Details Date Type Department Care Team (Late st Contact Info) Description 03/03/[address] [address] Lalita Perez MD [facility] [address] [address] Refill Request (AZURETTE TABLETS 28'S) Social History [...] 03/05/2016 9:01 AM CDT Prescription approved per [facility] Refill Protocol. Patient due for physical after 04/05/16. Routing to Station Nurse Pool, please call to assist patient in scheduling a physical after 04/05/16. * Telephone Encounter - Lalita Merritt - 03/03/2016 8:07 AM CDT [facility] 28[facility] Last Written Prescription Date: 04/05/2015 Last Fill Quantity: 90, # refills: 3 Last Office Visit with [facility], P or [facility] prescribing provider: 10/02/2015 documented in this encounter Plan of Treatment Not on file documented as of this encounter Visit Diagnoses Diagnosis Contraceptive management- Primary Unspecified contraceptive management documented in this encounter Care Teams Seal Delivery Vehicle Team Technician Relationship Specialty Start Date End Date Lalita Perez MD PCP - General Student in organized health care education/training program 10/21/14 04/21/18 Blank Lemos MD [address] [place] [address] [place] [address] PCP - General Internal Medicine 04/22/18 Blank Lemos MD [address] [place] [address] [place] [address] PCP - Assigned PCP 04/25/18 10/12/18 Blank Lemos MD [address] [place] [address] [place] [address] Assigned PCP 04/25/18 07/25/22 Hardeep Cárdenas Personal Advocate & Liaison (PAL) 06/17/19 01/31/20 Kathleen Lacy CNM [address] [place] [address] Assigned OBGYN Provider 06/01/20 Anabell Shannon Personal Advocate & Liaison (PAL) 10/25/20 11/23/22 Rand Kam APRN CNM [facility] [address] [place] [address] [address] [place] [address] Assigned OBGYN Provider 11/24/21 Sharita Frias MD [address] [facility] [address] [place] [address] Assigned OBGYN Provider 01/04/22 Kathleen Lacy CNM [address] [place] [address] Assigned OBGYN Provider 12/29/21 Kathleen Lacy CNM [address] [place] [address] Assigned OBGYN Provider 01/18/22 Sharita Frias MD [address], [address] [address] Assigned OBGYN Provider 01/25/22 Blank Lemos MD [address] [facility] [place] [id number] Assigned PCP 10/04/22 documented as of this encounter
--- OUTSIDE RECORDS SUMMARY | 2023-09-22 15:44 | XMS_ITS | Encounter Summary ---
Author Name Unknown Organization [place] Address [facility] [place] [address] Care Team Providers Care Tool And Die Designer Name Role Phone Blank Lemos MD Primary Care Provider Blank Lemos MD Unavailable [phone] Hardeep Cárdenas Unavailable Unavailable Kathleen Lacy CNM Unavailable [phone] Anabell Shannon Unavailable Unavailable Rand Kam APRN CNM Unavailable Sharita Frias MD Unavailable Kathleen Lacy CNM Unavailable [phone] Kathleen Lacy CNM Unavailable [phone] Sharita Frias MD Unavailable Blank Lemos MD Unavailable [phone] Encounter Details Date Type Department Care Team (Late st Contact Info) Description 01/09/2020 [facility] [address] [place] [address] Nahed Carrillo MA Social History [...] documented as of this encounter Care Teams Tool And Die Designer Relationship Specialty [place] [address] [place] [address] [place] [address] PCP - General Internal Medicine 04/22/18 [place] [address] [place] [address] [place] [address] Assigned PCP 04/25/18 07/25/22 Hardeep Cárdenas Personal Advocate & Liaison (PAL) 06/17/19 01/31/20 Kathleen Lacy CNM [address] [place] [address] Assigned OBGYN Provider 06/01/20 Anabell Shannon Personal Advocate & Liaison (PAL) 10/25/20 11/23/22 Rand Kam APRN CNM [facility] [address] [place] [address] 160 [place] [address] Assigned OBGYN Provider 11/24/21 Sharita Frias MD [address] [facility] [address] [place] [address] Assigned OBGYN Provider 01/04/22 Kathleen Lacy CNM [address] [place] [address] Assigned OBGYN Provider 12/29/21 Kathleen Lacy CNM [address] [place] [address] Assigned OBGYN Provider 01/18/22 Sharita Frias MD [address], [address] [address] Assigned OBGYN Provider 01/25/22 Blank Lemos MD [address] [facility] [place] [address] Assigned PCP 10/04/22 documented as of this encounter
--- NOTE | 2023-09-22 16:00 | US_ITS ---
INDICATION: MENORRHAGIA. TECHNIQUE: TRANSABDOMINAL AND TRANS VAGINAL PELVIC ULTRASOUND PERFORMED WITH GRAYSCALE AND COLOR DOPPLER IMAGING. COMPARISON: NONE. FINDINGS: UTERUS MEASURES 9.0 X 5.4 X 5.8 CM. NO UTERINE FIBROID. ENDOMETRIUM MEASURES 1.4 CM. NO ENDOMETRIAL FLUID. THE RIGHT OVARY MEASURES 2.0 X 1.5 X 1.3 CM AND THE LEFT OVARY MEASURES 2.3 X 1.9 X 2.2 CM. NORMAL BLOOD FLOW TO BOTH OVARIES. NO PELVIC FREE FLUID. IMPRESSION: ENDOMETRIAL THICKNESS 1.4 CM. NO UTERINE FIBROID OR ENDOMETRIAL FLUID.
== END 2023-09-22 15:40 | disposition home or self-care (01) ==
LOC: US 15:40
PROVIDERS: PCP Nurse Practitioner Family; Visit Provider Registered Nurse
DX: N92.0 Excessive and frequent menstruation with regular cycle (principal); R93.89 Abnormal findings on diagnostic imaging of other specified body structures
CPT/HCPCS: 76830; 76856

== ENCOUNTER 2024-09-29 14:17 | Outpatient (CLI) | payer OTHER, SELFPAY ==
[2024-09-29 17:57] LABS: Bacterial Vaginosis* Negative (Negative); Candida glab/krus NOT DETECTED (No Detected); Candida species NOT DETECTED (No Detected); Trichomonas vaginalis NOT DETECTED (No Detected)
== END 2024-09-29 14:18 | disposition home or self-care (01) ==
LOC: FRMREF 14:36
PROVIDERS: PCP Nurse Practitioner Family; Visit Provider Registered Nurse
DX: N89.8 Other specified noninflammatory disorders of vagina (principal)
CPT/HCPCS: 81513; 87481; 87661

== ENCOUNTER 2024-11-10 08:36 | Outpatient (CLI) | payer OTHER, SELFPAY ==
[2024-11-10 14:10] LABS: Bacterial Vaginosis* Negative (Negative); Candida glab/krus NOT DETECTED (No Detected); Candida species NOT DETECTED (No Detected); Trichomonas vaginalis NOT DETECTED (No Detected)
[2024-11-10 14:37] LABS: Chlamydia DNA Amplified* NOT DETECTED (No Detected); GC DNA Amplified* NOT DETECTED (No Detected)
== END 2024-11-10 08:37 | disposition home or self-care (01) ==
PROVIDERS: PCP Nurse Practitioner Family; Visit Provider Registered Nurse
DX: N30.90 Cystitis, unspecified without hematuria (principal); N94.9 Unspecified condition associated with female genital organs and menstrual cycle; N39.0 Urinary tract infection, site not specified; Z11.3 Encounter for screening for infections with a predominantly sexual mode of transmission
CPT/HCPCS: 81513; 87086; 87109; 87481; 87491; 87591; 87661

== ENCOUNTER 2025-04-20 14:52 | Outpatient (CLI) | payer OTHER, SELFPAY | END 2025-04-20 14:53 | disposition home or self-care (01) | LOC: FRMREF 14:53 | PROVIDERS: PCP Nurse Practitioner Family; Visit Provider Registered Nurse | DX: R10.2 Pelvic and perineal pain (principal) | CPT/HCPCS: 87086 ==

== ENCOUNTER 2025-04-26 15:49 | Outpatient (CLI) | payer OTHER, SELFPAY ==
--- NOTE | 2025-04-26 16:00 | CRLHL7_ITS ---
For Patients: As a result of the Century Cures Act, medical imaging exams and procedure reports are released immediately into your electronic medical record. You may view this report before your referring provider. If you have questions, please contact your health care provider. CLINICAL HISTORY: Pelvic and perineal pain COMPARISON: 09/22/2023 TECHNIQUE: 2D rayo-scale ultrasound. In addition, color Doppler and spectral Doppler analysis was performed of the pelvis using a transabdominal and transvaginal approach. Transvaginal imaging performed to better visualize the endometrial stripe and ovaries. FINDINGS: The uterus measures 9.0 x 5.2 x 6.1 cm. section scar noted. The endometrial lining appears normal and measures 7 mm in thickness. Trace amount of endometrial fluid is noted. The right ovary measures 4.1 x 1.9 x 2.4 cm in size and the left ovary measures 3.3 x 2.8 x 2.4 cm. The ovaries demonstrate normal arterial and venous blood flow on color Doppler and spectral Doppler analysis. There are no suspicious fluid collections within the cul-de-sac. IMPRESSION: Normal ovaries. No adnexal mass or excess pelvic free fluid. No uterine fibroid. Dictated by Junior Woodruff MD @ 04/27/2025 7:30:11 AM (Electronically Signed)
== END 2025-04-26 15:50 | disposition home or self-care (01) ==
LOC: US 15:50
PROVIDERS: PCP Nurse Practitioner Family; Visit Provider Registered Nurse
DX: R10.2 Pelvic and perineal pain (principal)
CPT/HCPCS: 76830; 76856; 93976